=== PATIENT | female | born 1945 | race Caucasian/White ===

== ENCOUNTER → 2020-06-13 10:29 | Outpatient (BNVA) | payer MEDICARE, SELFPAY | PROVIDERS: PCP Internal Medicine; Visit Provider Internal Medicine | DX: J30.9 Allergic rhinitis, unspecified (principal); J44.9 Chronic obstructive pulmonary disease, unspecified | CPT/HCPCS: 99212 ==

== ENCOUNTER 2020-06-22 05:59 | Outpatient (REF) | payer MEDICARE, SELFPAY ==
[2020-06-22 07:07] LABS: MANUAL DIFF FLAG NO
[2020-06-22 07:12] LABS: Basophils Absolute Auto 0.1 X10*3/uL (0.0-0.2); Basophils Percent Auto 1.3 % (0-2); Eosinophils Absolute Auto 0.2 X10*3/uL (0.0-0.4); Eosinophils Percent Auto 3.9 % (0-4); Hematocrit 39.9 % (37-47); Hemoglobin 13.3 g/dl (12.0-16.0); Imm Gran Abs Auto 0.01 X10*3/uL (0.00-0.03); Imm Gran Pct Auto 0.2 % (0.0-0.4); Lymphocytes Absolute Auto 1.8 X10*3/uL (1.2-4.9); Mean Corpuscular HGB Conc 33.3 g/dl (31.0-35.0); Mean Corpuscular Hemoglobin 31.8 pg (27.0-33.0); Mean Corpuscular Volume 95.5 fL (80-98); Mean Platelet Volume 9.4 fL (9.4-12.3); Monocytes Absolute Auto 0.5 X10*3/uL (0.1-1.2); Monocytes Percent Auto 9.5 % (2-11); Neutrophils Percent Auto 53.1 % (45-73); Platelet Count 306 X10*3/uL (160-400); Red Blood Count 4.18 X10*6/uL (4.20-5.50); Red Cell Distribution Width 13.8 % (11.0-16.0); White Blood Count 5.6 X10*3/uL (4.8-10.8)
[2020-06-22 07:34] LABS: B Type Natriuretic Peptide 375 pg/mL (<100)
[2020-06-22 07:45] LABS: Alanine Aminotransferase 18 U/L (0-31); Albumin Level 4.3 g/dL (3.5-5.0); Alkaline Phosphatase 85 U/L (39-117); Anion Gap 12 (12-20); Aspartate Amino Transferase 25 U/L (5-31); Bilirubin Total 0.6 mg/dL (0.0-1.0); Blood Urea Nitrogen 8 mg/dL (9-16); Calcium 9.3 mg/dL (8.4-10.2); Carbon Dioxide 29 mmol/L (22-29); Chloride 98 mmol/L (96-108); Cholesterol 207 mg/dL; Estimated Glomerular Filt Rate > 60; Glucose Fasting 95 mg/dL (60-99); Potassium 4.6 mmol/l (3.3-5.1); Sodium 134 mmol/L (135-145); Total Protein 6.9 g/dL (6.5-8.0); Triglycerides 77 mg/dL
[2020-06-22 08:07] LABS: HDL Cholesterol 84 mg/dL; LDL Cholesterol Calculated 108 mg/dl
== END 2020-06-22 06:00 | disposition home or self-care (01) ==
LOC: HO.LAB 05:59
PROVIDERS: Nurse Practitioner Family; PCP Internal Medicine; Visit Provider Internal Medicine
DX: R60.0 Localized edema (principal); I10 Essential (primary) hypertension
CPT/HCPCS: 36415; 80053; 80061; 83880; 85025

== ENCOUNTER → 2020-07-21 09:10 | Outpatient (REF) | payer MEDICARE, SELFPAY ==
--- NOTE | 2020-07-21 09:26 | CA_ITS ---
Transthoracic Echocardiogram Patient (Last, First, Middle): Yasmeen Andrews R Gender: Female Date of : 1945 Age: 74 Procedure Date: 07/21/2020 Procedure Type: Transthoracic Echocardiogram Location: OP Height: 162.56 cm Weight: 58.97 kg BSA: 1.63 m2 Heart Rate: bpm BP: 130 / 52 mmHg Office Technician: DSAnna Referring MD: Parul Williamson MD Symptoms: R60.0 - Localized edema Study Quality: Good ECG Rhythm: Sinus Conclusions: - The left ventricular systolic function is normal. The visually estimated ejection fraction is between 55-60%. - There is moderate aortic valve regurgitation. Findings Left Ventricle Normal left ventricular cavity size. There is normal left ventricular wall thickness. The left ventricular systolic function is normal. The visually estimated ejection fraction is between 55-60%. There is no evidence of regional wall motion abnormalities. E/E prime ratio is between 8 and 15 consistent with indeterminate filling pressures. Evidence suggests grade I (mild) diastolic dysfunction. Right Ventricle Normal right ventricular cavity size and systolic function. Atria The left atrium is normal in size. The right atrium is normal in size. Aortic Valve There is mild calcification of the aortic valve. There is no aortic valve stenosis. There is moderate aortic valve regurgitation. Suspect lack of coaptation between right and non coronary cusp. Mitral Valve The mitral valve appears normal. There is trace mitral valve regurgitation. There is no mitral valve stenosis. Pulmonic Valve The pulmonic valve was not well visualized. Tricuspid Valve Normal tricuspid valve structure. There is trace tricuspid valve regurgitation. The pulmonary artery systolic pressure is normal. Great Vessels The aortic annulus, sinuses of valsalva, and asc aorta are normal in size. Venous The inferior vena cava is normal in size and collapses greater than 50% with inspiration. Pericardium/Pleural There is no evidence of pericardial effusion. Prior Study Comparison No significant change compared to prior study dated: 07/13/2016. Measurements 2D Linear Measurements IVSd: 1.08 0.6-0.9/0.6-1.0 cm LVIDd: 4.39 3.9-5.3/4.2-5.9 cm LVIDd Index: 2.69 2.4-3.2/2.2-3.1 cm/m2 LVIDs: 2.57 2.0-3.6 cm LVPWd: 1.01 0.7-1.1 cm Ao Root: 2.80 2.1-3.5 cm LA Diam: 3.20 2.7-3.8/3.0-4.0 cm LAIDs Index: 1.96 1.5-2.3 cm/m2 LV Mass: 194.99 67-162/88-224 g LV Mass Index: 119.63 43-95/49-115 g/m2 LVOT Diam: 1.80 3.0+(-)1.3 cm 2D Systolic Function EF 4C: 55.70 >55% EF 2C: 65.50 >55% EF BiP: 61.70 >55% Mitral Valve MV Pk E: 0.83 MV PK A: 0.50 MV Decel Time: 173.00 E/A: 1.70 E'Lateral: 8.51 E'Medial: 4.93 E/E' Med: 16.70 E/E' Lat: 9.70 PHT: 51.00 MVA PHT: 4.31 Decel [place]: 4.78 Aortic Valve AoV Pk Jabari: 1.85 AoV Pk Grad: 14.00 AI Pk Jabari: 4.22 AI [place]: 2.29 LVOT LVOT Pk Jabari: 1.05 LVOT Mn Jabari: 0.70 LVOT VTI: 0.25 LVOT Pk Grad: 4.00 LVOT Mn Grad: 2.00 LVOT Diam: 1.80 LVOT Area: 2.54 Diastolic Function MV Pk E: 0.83 MV Pk A: 0.50 E/A: 1.70 E'Medial: 4.93 E/E' Med: 16.70 E' Laterial: 8.51 E/E' Lat: 9.70 Tricuspid Valve TR Pk Jabari: 2.48 TR Pk Grad: 25.00 RA Press: 3.00 RVSP: 28.00 Great Vessels Aorta Ao Root-2D: 2.80 2.0-3.7 cm Updated in Other Vendor System with Status of Final Abram Arriaza MD electronically signed on 07/23/2020 1:21:22 PM with status of Final
== END ==
LOC: HO.CARD 09:10
PROVIDERS: PCP Internal Medicine; Visit Provider Internal Medicine
DX: R60.0 Localized edema (principal)
CPT/HCPCS: 93306

== ENCOUNTER → 2020-08-08 09:39 | Outpatient (BNVA) | payer MEDICARE, SELFPAY | PROVIDERS: PCP Internal Medicine; Visit Provider Orthopaedic Surgery | DX: G56.03 Carpal tunnel syndrome, bilateral upper limbs (principal) | CPT/HCPCS: 99202; 99212 ==

== ENCOUNTER 2020-08-25 11:13 | Day surgery (SDC) | payer MEDICARE, SELFPAY ==
[2020-08-25 11:52] VITALS: BMI 22.3
[2020-08-25 12:11] VITALS: BP 129/60; PULSE 70; RESP 18; TEMP 36.7; O2SAT 99
[2020-08-25 13:30] VITALS: BP 126/53; PULSE 77; RESP 18; TEMP 36.9; O2SAT 96
--- NOTE | 2020-08-25 13:34 | P.OP_ITS ---
Operative Note Operative Note Date of Service: 08/25/20 Narrative: Preop diagnosis: 1. Right Carpal tunnel syndrome Postop diagnosis: 1. right Carpal tunnel syndrome Procedure: 1. Right Carpal tunnel release Surgeon: Mita Adam MD Anesthesia: local block using 1% lidocaine with epinephrine Findings: Thickened transverse carpal ligament. EBL: Less than 5 mL Specimens: None Complications: None Disposition: Brought to recovery room in stable condition Plan: Follow-up for 7-10 days for wound check and suture removal Indications: The patient is 75 years old, with right carpal tunnel syndrome that has been unresponsive to nonoperative management. The risks and benefits of operative treatment including but not limited to risk of damage to blood vessels, nerves, tendons, infection, persistent pain, persistent symptoms, or possible need for additional surgery were discussed with the patient and the patient wishes to proceed with surgery. Procedure: Once consent was obtained a local block was performed using a combination of 1% lidocaine with epinephrine. The patient was then brought back to the operating suite and placed on the operative table in supine position. A tourniquet was applied to the proximal aspect of the right upper extremity and the limb was prepped and draped in a standard surgical fashion. Once assured that we had a good block, a 1.5 cm longitudinal incision was made centered over the right carpal tunnel. The incision was made through the skin to the subcutaneous tissues using a #15 blade. Dissection was made down to the level of the transverse carpal ligament with care being taken to protect the palmar cu taneous nerve. Once the transverse carpal ligament was clearly visualized, a longitudinal incision was made in the transverse carpal ligament 1st using a #15 blade, then using tenotomy scissors under direct visualization. Care was taken to look for and protect the motor branch of the median nerve when seen in this area. Once satisfied with our carpal tunnel release the wound was copiously irrigated with normal saline and hemostasis was obtained with a brief period of local pressure. The skin edges were reapproximated with some 5.0 nylon suture material and a sterile dressing was applied. The patient appears to have tolerated the procedure well and with no complications. All digits were well vascularized at the conclusion of the case.
--- NOTE | 2020-08-25 13:34 | MHC.SHP ---
Pre-Procedural Eval Section B Chief Complaint: carpal tunnel Allergies: Allergies Allergy/AdvReac Type Severity Reaction Status Date / Time penicillin G Allergy Unknown Unknown Verified 08/25/20 12:13 Sulfa (Sulfonamide Allergy Unknown nausea, Verified 08/25/20 12:13 Antibiotics) vomiting Plan I have reviewed the history and physical and performed a pertinent physical examination on my patient. No changes have occurred unless specified.
== END 2020-08-25 13:57 | disposition home or self-care (01) ==
PROVIDERS: PCP Internal Medicine; Visit Provider Orthopaedic Surgery
PROC: (CPT 64721; principal; 2020-08-25 12:30)
DX: G56.01 Carpal tunnel syndrome, right upper limb (principal); I10 Essential (primary) hypertension; J44.9 Chronic obstructive pulmonary disease, unspecified; Z79.51 Long term (current) use of inhaled steroids; Z79.899 Other long term (current) drug therapy; R60.0 Localized edema; Z88.0 Allergy status to penicillin; Z88.2 Allergy status to sulfonamides; Z87.891 Personal history of nicotine dependence
CPT/HCPCS: 64721

== ENCOUNTER → 2020-09-05 08:19 | Outpatient (BNVA) | payer MEDICARE, SELFPAY | PROVIDERS: Visit Provider Orthopaedic Surgery | DX: G56.01 Carpal tunnel syndrome, right upper limb (principal); G56.02 Carpal tunnel syndrome, left upper limb | CPT/HCPCS: 99212 ==

== ENCOUNTER 2020-09-22 12:34 | Day surgery (SDC) | payer MEDICARE, SELFPAY ==
[2020-09-21 09:45] VITALS: BMI 22.3
[2020-09-22 12:46] VITALS: BP 159/58; PULSE 61; RESP 16; TEMP 36.3; O2SAT 99
--- NOTE | 2020-09-22 12:59 | W.PM.OPN ---
Operative Note Operative Note Date of Service: 09/22/20 Narrative: Preop diagnosis: 1. Left Carpal tunnel syndrome Postop diagnosis: 1. Left Carpal tunnel syndrome Procedure: 1. Left Carpal tunnel release Surgeon: Mita Adam MD Anesthesia: local block using 1% lidocaine with epinephrine Findings: Thickened transverse carpal ligament. EBL: Less than 5 mL Specimens: None Complications: None Disposition: Brought to recovery room in stable condition Plan: Follow-up for 7-10 days for wound check and suture removal Indications: The patient is 75 years old, with left carpal tunnel syndrome that has been unresponsive to nonoperative management. The risks and benefits of operative treatment including but not limited to risk of damage to blood vessels, nerves, tendons, infection, persistent pain, persistent symptoms, or possible need for additional surgery were discussed with the patient and the patient wishes to proceed with surgery. Procedure: Once consent was obtained a local block was performed using a combination of 1% lidocaine with epinephrine. The patient was then brought back to the operating suite and placed on the operative table in supine position. A tourniquet was applied to the proximal aspect of the left upper extremity and the limb was prepped and draped in a standard surgical fashion. Once assured that we had a good block, a 1.5 cm longitudinal incision was made centered over the left carpal tunnel. The incision was made through the skin to the subcutaneous tissues using a #15 blade. Dissection was made down to the level of the transverse carpal ligament with care being taken to protect the palmar cutaneous nerve. Once the transverse carpal ligament was clearly visualized, a longitudinal incision was made in the transverse carpal ligament 1st using a #15 blade, then using tenotomy scissors under direct visualization. Care was taken to look for and protect the motor branch of the median nerve when seen in this area. Once satisfied with our carpal tunnel release the wound was copiously irrigated with normal saline and hemostasis was obtained with a brief period of local pressure. The skin edges were reapproximated with some 5.0 nylon suture material and a sterile dressing was applied. The patient appears to have tolerated the procedure well and with no complications. All digits were well vascularized at the conclusion of the case.
--- NOTE | 2020-09-22 14:15 | MHC.SHP ---
Pre-Procedural Eval Section B Chief Complaint: carpal tunnel Allergies: Allergies Allergy/AdvReac Type Severity Reaction Status Date / Time penicillin G Allergy Unknown Unknown Verified 09/05/20 08:22 Sulfa (Sulfonamide Allergy Unknown nausea, Verified 09/05/20 08:22 Antibiotics) vomiting Plan I have reviewed the history and physical and performed a pertinent physical examination on my patient. No changes have occurred unless specified.
[2020-09-22 15:10] VITALS: BP 92/51; PULSE 68; RESP 17; TEMP 36.3; O2SAT 99
[2020-09-22 15:14] VITALS: BP 154/58
== END 2020-09-22 15:15 | disposition home or self-care (01) ==
PROVIDERS: PCP Internal Medicine; Visit Provider Orthopaedic Surgery
PROC: (CPT 64721; principal; 2020-09-22 13:30)
DX: G56.02 Carpal tunnel syndrome, left upper limb (principal); I10 Essential (primary) hypertension; J44.9 Chronic obstructive pulmonary disease, unspecified; J30.9 Allergic rhinitis, unspecified; Z88.0 Allergy status to penicillin; Z88.2 Allergy status to sulfonamides; Z87.891 Personal history of nicotine dependence
CPT/HCPCS: 64721

== ENCOUNTER → 2020-10-03 09:30 | Outpatient (BNVA) | payer MEDICARE, SELFPAY | PROVIDERS: Visit Provider Orthopaedic Surgery | DX: G56.01 Carpal tunnel syndrome, right upper limb (principal); G56.02 Carpal tunnel syndrome, left upper limb | CPT/HCPCS: 99212 ==

== ENCOUNTER 2020-10-24 13:46 | Outpatient (REF) | payer MEDICARE, SELFPAY ==
--- NOTE | ~2020-10-24 | XR_ITS ---
EXAMINATION: XR CHEST CLINICAL INFORMATION: Cough COMPARISON: Previous chest x-rays most recent May [address] most recent January 2020 TECHNIQUE: 2 views of the chest were obtained. FINDINGS: The cardiac silhouette does not appear enlarged. The thoracic aorta is calcified and tortuous and but stable. Hilar and mediastinal contours are otherwise unremarkable. The lungs are well-inflated suggestive of COPD. The lungs are clear. There is no pleural effusion or pneumothorax. There are degenerative changes of the spine and left shoulder and increased thoracic kyphosis. XR/XR chest 2V IMPRESSION: COPD. No evidence for acute disease in the chest.
== END 2020-10-24 13:47 | disposition home or self-care (01) ==
LOC: HO.XRAY 13:46
PROVIDERS: PCP Internal Medicine; Visit Provider Internal Medicine
DX: J44.9 Chronic obstructive pulmonary disease, unspecified (principal); R05 Cough; T46.4X5A Adverse effect of angiotensin-converting-enzyme inhibitors, initial encounter; Z79.899 Other long term (current) drug therapy; Z87.891 Personal history of nicotine dependence
CPT/HCPCS: 71046; 99212

== ENCOUNTER → 2020-12-12 10:15 | Outpatient (BNVA) | payer MEDICARE, SELFPAY | PROVIDERS: PCP Internal Medicine; Visit Provider Internal Medicine | DX: J44.9 Chronic obstructive pulmonary disease, unspecified (principal); R05 Cough; T46.4X5A Adverse effect of angiotensin-converting-enzyme inhibitors, initial encounter; J30.9 Allergic rhinitis, unspecified; Z79.899 Other long term (current) drug therapy | CPT/HCPCS: 99212 ==

== ENCOUNTER → 2021-04-06 10:01 | Outpatient (BNVA) | payer MEDICARE, SELFPAY | PROVIDERS: PCP Internal Medicine; Visit Provider Internal Medicine | DX: J44.9 Chronic obstructive pulmonary disease, unspecified (principal); J30.9 Allergic rhinitis, unspecified | CPT/HCPCS: 99212 ==

== ENCOUNTER 2021-04-18 07:03 | Outpatient (REF) | payer MEDICARE, SELFPAY ==
[2021-04-18 08:10] LABS: Alanine Aminotransferase 10 U/L (0-31); Albumin Level 4.1 g/dL (3.5-5.0); Alkaline Phosphatase 80 U/L (39-117); Anion Gap 14 (12-20); Aspartate Amino Transferase 19 U/L (5-31); Bilirubin Total 0.5 mg/dL (0.0-1.0); Blood Urea Nitrogen 9 mg/dL (9-16); Calcium 9.5 mg/dL (8.4-10.2); Carbon Dioxide 25 mmol/L (22-29); Chloride 102 mmol/L (96-108); Cholesterol 229 mg/dL; Estimated Glomerular Filt Rate > 60; Glucose Fasting 96 mg/dL (60-99); HDL Cholesterol 59 mg/dL; LDL Cholesterol Calculated 151 mg/dl; Sodium 136 mmol/L (135-145); Total Protein 6.6 g/dL (6.5-8.0); Triglycerides 97 mg/dL
[2021-04-22 12:16] LABS: Vitamin D 25-OH, D2 5 ng/mL; Vitamin D 25-OH, D3 42 ng/mL; Vitamin D 25-OH, Total 47 ng/mL (30-100)
== END 2021-04-18 07:04 | disposition home or self-care (01) ==
LOC: HO.LAB 07:03
PROVIDERS: PCP Internal Medicine; Visit Provider Internal Medicine
DX: E11.9 Type 2 diabetes mellitus without complications (principal); E78.5 Hyperlipidemia, unspecified; I10 Essential (primary) hypertension
CPT/HCPCS: 36415; 80053; 80061; 82306

== ENCOUNTER → 2021-08-09 09:50 | Outpatient (BNVA) | payer MEDICARE, SELFPAY | PROVIDERS: PCP Internal Medicine; Visit Provider Internal Medicine | DX: J44.9 Chronic obstructive pulmonary disease, unspecified (principal); J30.9 Allergic rhinitis, unspecified | CPT/HCPCS: 99212 ==

== ENCOUNTER 2021-08-22 10:41 | Outpatient (REF) | payer MEDICARE, SELFPAY ==
--- NOTE | ~2021-08-22 | CT_ITS ---
EXAMINATION: CT CHEST SCREENING CLINICAL INFORMATION: Smoking history. COMPARISON: Previous chest CT January 2020 TECHNIQUE: Multidetector volumetric CT imaging of the chest is performed without contrast using low dose technique. Additional 2D coronal and sagittal reformatted images and axial 3D maximum intensity projection (MIP) images are generated on the CT workstation. This CT examination was performed using dose optimization techniques as appropriate, variously including the following: *Automated exposure control *Adjustment of mA and/or kV according to patient size (this includes techniques or standardized protocols for targeted exams where dose is matched to indication/reason for exam; i.e. extremities or head) *Use of iterative reconstruction technique DLP: 36 mGy-cm FINDINGS: LUNGS: There is evidence of emphysema. The small pulmonary nodules are stable. No new pulmonary nodule is seen. There is mild linear scarring or subsegmental atelectasis at the lung bases. No endobronchial or endotracheal lesion is seen. MEDIASTINUM: There is atherosclerotic disease and mild coronary artery calcification. The mediastinum is otherwise normal. There are no enlarged lymph nodes. PLEURA: There is no pleural effusion. No pleural mass or thickening. AXILLA: No lymphadenopathy. UPPER ABDOMEN: Unremarkable OSSEOUS STRUCTURES: There are degenerative changes of the spine. CT/CT lung screening IMPRESSION: Emphysema. Stable small pulmonary nodules. Coronary artery calcification. ASSESSMENT: Lung-RADS category 2: Benign RECOMMENDATION: Annual low-dose chest CT follow-up recommended.
== END 2021-08-22 10:42 | disposition home or self-care (01) ==
LOC: HO.CT 10:41
PROVIDERS: PCP Internal Medicine; Visit Provider Physician Assistant Medical
DX: Z12.2 Encounter for screening for malignant neoplasm of respiratory organs (principal); Z87.891 Personal history of nicotine dependence
CPT/HCPCS: 71271

== ENCOUNTER 2021-09-12 07:42 | Outpatient (REF) | payer MEDICARE, SELFPAY ==
[2021-09-12 09:00] LABS: Alanine Aminotransferase 11 U/L (0-31); Alkaline Phosphatase 77 U/L (39-117); Anion Gap 14 (12-20); Aspartate Amino Transferase 19 U/L (5-31); Bilirubin Total 0.5 mg/dL (0.0-1.0); Blood Urea Nitrogen 8 mg/dL (9-16); Calcium 9.6 mg/dL (8.4-10.2); Carbon Dioxide 24 mmol/L (22-29); Chloride 106 mmol/L (96-108); Cholesterol 224 mg/dL; Estimated Glomerular Filt Rate > 60; Glucose Fasting 98 mg/dL (60-99); HDL Cholesterol 72 mg/dL; LDL Cholesterol Calculated 136 mg/dl; Potassium 4.5 mmol/L (3.3-5.1); Sodium 139 mmol/L (135-145); Total Protein 6.6 g/dL (6.5-8.0); Triglycerides 81 mg/dL
== END 2021-09-12 07:43 | disposition home or self-care (01) ==
LOC: HO.LAB 07:42
PROVIDERS: PCP Internal Medicine; Visit Provider Internal Medicine
DX: E78.5 Hyperlipidemia, unspecified (principal)
CPT/HCPCS: 36415; 80053; 80061

== ENCOUNTER → 2021-12-05 10:02 | Outpatient (BNVA) | payer MEDICARE, SELFPAY | PROVIDERS: PCP Internal Medicine; Visit Provider Internal Medicine | DX: J30.9 Allergic rhinitis, unspecified (principal); J44.9 Chronic obstructive pulmonary disease, unspecified | CPT/HCPCS: 99212 ==

== ENCOUNTER → 2021-12-13 09:24 | Outpatient (REF) | payer MEDICARE, SELFPAY ==
--- NOTE | 2021-12-13 09:26 | CA_ITS ---
Transthoracic Echocardiogram Patient (Last, First, Middle): Yasmeen Andrews R Gender: Female Date of : 1945 Age: 76 Procedure Date: 12/13/2021 Procedure Type: Transthoracic Echocardiogram Location: OP Height: 162.56 cm Weight: 55.34 kg BSA: 1.59 m2 Heart Rate: 54 bpm BP: 124 / 68 mmHg Devops: SB Referring MD: Parul Williamson MD Inside Technical Sales Representative: Jean-Pierre Reilly MD Symptoms: I35.1 - Nonrheumatic aortic (valve) insufficiency Study Quality: Adequate ECG Rhythm: Sinus Bradycardia Conclusions: - 1. Normal LV systolic function with suggestion of increased left ventricular end-diastolic pressure 2. Moderate aortic regurgitation 3. Mild mitral regurgitation 4. Normal RV systolic pressure 5. No gross pericardial effusion Findings Left Ventricle Normal left ventricular size, thickness, and systolic function. The visually estimated ejection fraction is between 65-70%. Spectral Doppler is indicative of a normal filling pattern. Elevated left ventricular end diastolic pressure. E/E prime ratio is between 8 and 15 consistent with indeterminate filling pressures. Right Ventricle Normal right ventricular cavity size and systolic function. Atria The left atrium is mildly dilated. There is no evidence of interatrial shunt. The right atrium is normal in size. Aortic Valve There is mild calcification of the aortic valve. There is mild thickening of the aortic valve. There is no aortic valve stenosis. There is moderate aortic valve regurgitation. Mitral Valve There is mild anterior and posterior mitral leaflet thickening. There is mild mitral valve regurgitation. There is no mitral valve stenosis. Pulmonic Valve The pulmonic valve is likely normal. There is trace to mild pulmonic valve regurgitation. Tricuspid Valve Normal tricuspid valve structure. There is mild tricuspid valve regurgitation. The right ventricular systolic pressure is normal. The right ventricular systolic pressure is 34 mmHg. Normal right atrial pressure. There is no evidence of pulmonary hypertension. Great Vessels All visible segments of the aorta are normal in size. The pulmonary artery was not well visualized. Venous The inferior vena cava is normal in size and collapses greater than 50% with inspiration. Pericardium/Pleural There is no evidence of pericardial effusion. Prior Study Comparison No significant change compared to prior study dated: 07/21/2020. Measurements 2D Linear Measurements IVSd: 0.81 0.6-0.9/0.6-1.0 cm LVIDd: 4.53 3.9-5.3/4.2-5.9 cm LVIDd Index: 2.85 2.4-3.2/2.2-3.1 cm/m2 LVIDs: 2.95 2.0-3.6 cm LVPWd: 0.65 0.7-1.1 cm Ao Root: 3.10 2.1-3.5 cm LA Diam: 3.50 2.7-3.8/3.0-4.0 cm LAIDs Index: 2.20 1.5-2.3 cm/m2 LV Mass: 127.40 67-162/88-224 g LV Mass Index: 80.13 43-95/49-115 g/m2 LVOT Diam: 1.70 3.0+(-)1.3 cm 2D Systolic Function EF 4C: 70.60 >55% EF 2C: 68.50 >55% EF BiP: 69.30 >55% Mitral Valve MV Pk E: 0.77 MV PK A: 0.66 MV Decel Time: 174.00 E/A: 1.20 E'Lateral: 7.58 E'Medial: 4.13 E/E' Med: 18.60 E/E' Lat: 10.10 PHT: 51.00 MVA PHT: 4.31 Decel [place]: 4.40 Aortic Valve AoV Pk Jabari: 1.59 AoV Mn Jabari: 1.10 AoV VTI: 0.35 AoV Pk Grad: 10.00 Aov Mn Grad: 5.00 FRANCISCO Cont.VTI: 1.51 AI Pk Jabari: 4.48 AI [place]: 2.80 LVOT LVOT Pk Jabari: 1.01 LVOT Mn Jabari: 0.64 LVOT VTI: 0.23 LVOT Pk Grad: 4.00 LVOT Mn Grad: 2.00 LVOT Diam: 1.70 LVOT Area: 2.27 Diastolic Function MV Pk E: 0.77 MV Pk A: 0.66 E/A: 1.20 E'Medial: 4.13 E/E' Med: 18.60 E' Laterial: 7.58 E/E' Lat: 10.10 Right Ventricle TAPSE (mm): 21.50 TVS' Jabari: 13.70 Tricuspid Valve TR Pk Jabari: 2.78 TR Pk Grad: 31.00 RA Press: 3.00 RVSP: 34.00 Great Vessels Aorta Ao Root-2D: 3.10 2.0-3.7 cm Sinus of Valsalva: 3.10 2.0-3.5 cm Ao Asc: 3.30 2.1-3.4 cm Pulmonary Valve PV Pk Jabari: 0.87 Peak PV Grad: 3.00 Updated in Other Vendor System with Status of Final Jean-Pierre Reilly MD electronically signed on 12/13/2021 3:47:10 PM with status of Final
== END ==
LOC: HO.CARD 09:24
PROVIDERS: PCP Internal Medicine; Visit Provider Internal Medicine
DX: I35.1 Nonrheumatic aortic (valve) insufficiency (principal)
CPT/HCPCS: 93306

== ENCOUNTER 2022-04-14 10:16 | Outpatient (REF) | payer MEDICARE, SELFPAY ==
--- NOTE | ~2022-04-14 | MM_ITS ---
EXAMINATION: MM SCREENING DIGITAL BREAST TOMOSYNTHESIS, BILATERAL CLINICAL INFORMATION: Screening. Asymptomatic. The lifetime risk of breast cancer based on the Tyrer-Cuzick Model is 1%. COMPARISON: Mammography: 03/29/2020, 11/17/2018, 11/11/2017 TECHNIQUE: Digital breast tomosynthesis is performed in both the craniocaudal and mediolateral oblique views along with computer-aided detection (CAD). Synthesized 2D images are generated from the tomosynthesis. FINDINGS: There are scattered areas of fibroglandular density (ACR BI-RADS breast composition Category b). There are no significant masses, abnormal calcifications, or other abnormalities. Parenchymal pattern is similar to prior studies. There is no developing density or architectural abnormality. The axilla and skin contours are unremarkable. No significant changes. MM/MM tomosynthesis screening BI IMPRESSION: No mammographic evidence of malignancy. ASSESSMENT: BI-RADS 1: Negative RECOMMENDATION: Routine annual mammography screening. This patient's information was entered into a reminder system with a target due date for their next mammogram.
== END 2022-04-14 10:17 | disposition home or self-care (01) ==
LOC: HO.MAMMO 10:16
PROVIDERS: Visit Provider Internal Medicine
DX: Z12.31 Encounter for screening mammogram for malignant neoplasm of breast (principal)
CPT/HCPCS: 77063; 77067

== ENCOUNTER → 2022-06-12 09:41 | Outpatient (BNVA) | payer MEDICARE, SELFPAY | PROVIDERS: PCP Internal Medicine; Visit Provider Internal Medicine | DX: J44.9 Chronic obstructive pulmonary disease, unspecified (principal); J30.9 Allergic rhinitis, unspecified; Z79.899 Other long term (current) drug therapy | CPT/HCPCS: 99212 ==

== ENCOUNTER 2022-07-04 06:08 | Outpatient (REF) | payer MEDICARE, SELFPAY ==
[2022-07-04 08:00] LABS: Alanine Aminotransferase 9 U/L (0-31); Albumin Level 4.2 g/dL (3.5-5.0); Alkaline Phosphatase 89 U/L (39-117); Anion Gap 12 (12-20); Aspartate Amino Transferase 17 U/L (5-31); Bilirubin Total 0.6 mg/dL (0.0-1.0); Blood Urea Nitrogen 9 mg/dL (9-16); Calcium 9.5 mg/dL (8.4-10.2); Carbon Dioxide 26 mmol/L (22-29); Chloride 105 mmol/L (96-108); Cholesterol 216 mg/dL; Estimated Glomerular Filt Rate > 60; Glucose Fasting 97 mg/dL (60-99); HDL Cholesterol 66 mg/dL; LDL Cholesterol Calculated 133 mg/dl; Potassium 4.3 mmol/L (3.3-5.1); Sodium 139 mmol/L (135-145); Total Protein 6.9 g/dL (6.5-8.0); Triglycerides 88 mg/dL
== END 2022-07-04 06:09 | disposition home or self-care (01) ==
LOC: HO.LAB 06:08
PROVIDERS: PCP Internal Medicine; Visit Provider Internal Medicine
DX: E78.5 Hyperlipidemia, unspecified (principal)
CPT/HCPCS: 36415; 80053; 80061

== ENCOUNTER 2022-10-05 10:03 | Outpatient (REF) | payer MEDICARE, SELFPAY ==
--- NOTE | ~2022-10-05 | CT_ITS ---
EXAMINATION: CT CHEST SCREENING CLINICAL INFORMATION: Former smoker. Quit 4 years ago. 40 pack year history. COMPARISON: Previous chest CT August 2021 TECHNIQUE: Multidetector volumetric CT imaging of the chest is performed without contrast using low dose technique. Additional 2D coronal and sagittal reformatted images and axial 3D maximum intensity projection (MIP) images are generated on the CT workstation. This CT examination was performed using dose optimization techniques as appropriate, variously including the following: *Automated exposure control *Adjustment of mA and/or kV according to patient size (this includes techniques or standardized protocols for targeted exams where dose is matched to indication/reason for exam; i.e. extremities or head) *Use of iterative reconstruction technique DLP: 37 mGy-cm FINDINGS: LUNGS: Severe emphysema. Hyperinflation. No suspicious pulmonary nodule. Scarring or subsegmental atelectasis at the lung bases. No endobronchial or endotracheal lesion. MEDIASTINUM: The mediastinum is normal. Upper normal-size ascending thoracic aorta. CORONARY ARTERY CALCIFICATION: Mild PLEURA: There is no pleural effusion. No pleural mass or thickening. AXILLA: No lymphadenopathy. UPPER ABDOMEN: Unremarkable OSSEOUS STRUCTURES: Degenerative changes of the spine. CT/CT lung screening IMPRESSION: Severe emphysema. Hyperinflation. No suspicious pulmonary nodule. ASSESSMENT: Lung-RADS category 2: Benign RECOMMENDATION: Annual low-dose chest CT follow-up recommended.
== END 2022-10-05 10:04 | disposition home or self-care (01) ==
LOC: HO.CT 10:03
PROVIDERS: PCP Internal Medicine; Visit Provider Physician Assistant Medical
DX: Z12.2 Encounter for screening for malignant neoplasm of respiratory organs (principal); Z87.891 Personal history of nicotine dependence
CPT/HCPCS: 71271

== ENCOUNTER 2022-11-09 06:00 | Outpatient (REF) | payer MEDICARE, SELFPAY ==
[2022-11-09 08:00] LABS: Alanine Aminotransferase 13 U/L (0-31); Albumin Level 4.1 g/dL (3.5-5.0); Alkaline Phosphatase 76 U/L (39-117); Anion Gap 11 (12-20); Aspartate Amino Transferase 21 U/L (5-31); Bilirubin Total 0.8 mg/dL (0.0-1.0); Blood Urea Nitrogen 8 mg/dL (9-16); Calcium 9.6 mg/dL (8.4-10.2); Carbon Dioxide 27 mmol/L (22-29); Chloride 101 mmol/L (96-108); Cholesterol 178 mg/dL; Estimated Glomerular Filt Rate > 60; Glucose Fasting 90 mg/dL (60-99); HDL Cholesterol 92 mg/dL; LDL Cholesterol Calculated 73 mg/dl; Potassium 4.2 mmol/L (3.3-5.1); Sodium 135 mmol/L (135-145); Total Protein 6.4 g/dL (6.5-8.0); Triglycerides 65 mg/dL
[2022-11-09 08:33] LABS: Folate 17.3 ng/mL (> or = 4.0); Vitamin B12 1615 pg/mL (200-900); Vitamin D 25-OH Total 42.4 ng/mL (>30)
== END 2022-11-09 06:01 | disposition home or self-care (01) ==
LOC: HO.LAB 06:00
PROVIDERS: PCP Internal Medicine; Visit Provider Internal Medicine
DX: E78.5 Hyperlipidemia, unspecified (principal); E55.9 Vitamin D deficiency, unspecified; E53.8 Deficiency of other specified B group vitamins
CPT/HCPCS: 36415; 80053; 80061; 82306; 82607; 82746

== ENCOUNTER 2022-11-21 10:32 | Outpatient (REF) | payer MEDICARE, SELFPAY ==
[2022-11-21 11:11] LABS: MANUAL DIFF FLAG NO
[2022-11-21 11:33] LABS: Basophils Absolute Auto 0.1 X10*3/uL (0.0-0.2); Basophils Percent Auto 0.8 % (0-2); Eosinophils Absolute Auto 0.2 X10*3/uL (0.0-0.4); Eosinophils Percent Auto 2.6 % (0-4); Hematocrit 40.6 % (37.0-47.0); Hemoglobin 13.7 g/dl (12.0-16.0); Imm Gran Abs Auto 0.02 X10*3/uL (0.00-0.03); Imm Gran Pct Auto 0.3 % (0.0-0.4); Lymphocytes Absolute Auto 1.2 X10*3/uL (1.2-4.9); Mean Corpuscular HGB Conc 33.7 g/dl (31.0-35.0); Mean Corpuscular Hemoglobin 32.3 pg (27.0-33.0); Mean Corpuscular Volume 95.8 fL (80.0-98.0); Mean Platelet Volume 10.4 fL (9.4-12.3); Monocytes Absolute Auto 0.6 X10*3/uL (0.1-1.2); Monocytes Percent Auto 10.3 % (2-11); Neutrophils Absolute Auto 4.2 x10*3/uL (2.0-8.3); Platelet Count 165 X10*3/uL (160-400); Red Blood Count 4.24 X10*6/uL (4.20-5.50); Red Cell Distribution Width 12.9 % (11.0-16.0); White Blood Count 6.2 X10*3/uL (4.8-10.8)
[2022-11-21 12:51] LABS: Magnesium 1.6 mg/dL (1.6-2.6)
[2022-11-21 12:54] LABS: Thyroid Stimulating Hormone 1.17 uIU/mL (0.32-4.0)
== END 2022-11-21 10:33 | disposition home or self-care (01) ==
LOC: HO.LAB 10:32
PROVIDERS: PCP Internal Medicine; Visit Provider Internal Medicine
DX: R53.83 Other fatigue (principal); R25.2 Cramp and spasm
CPT/HCPCS: 36415; 83735; 84443; 85025

== ENCOUNTER → 2022-12-11 09:38 | Outpatient (BNVA) | payer MEDICARE, SELFPAY | PROVIDERS: PCP Internal Medicine; Visit Provider Internal Medicine | DX: J44.9 Chronic obstructive pulmonary disease, unspecified (principal); J30.9 Allergic rhinitis, unspecified | CPT/HCPCS: 99212 ==

== ENCOUNTER 2023-04-20 10:38 | Outpatient (REF) | payer MEDICARE, SELFPAY | END 2023-04-20 10:39 | disposition home or self-care (01) | LOC: HO.MAMMO 10:38 | PROVIDERS: PCP Internal Medicine; Visit Provider Internal Medicine | DX: Z12.31 Encounter for screening mammogram for malignant neoplasm of breast (principal) | CPT/HCPCS: 77063; 77067 ==

== ENCOUNTER → 2023-04-20 10:45 | Outpatient (BNV) | payer MEDICARE, SELFPAY | PROVIDERS: PCP Internal Medicine; Visit Provider Radiology Diagnostic Radiology | DX: Z12.31 Encounter for screening mammogram for malignant neoplasm of breast (principal) | CPT/HCPCS: 77063; 77067 ==

== ENCOUNTER 2023-04-26 08:46 | Outpatient (AMB) | payer MEDICARE, SELFPAY ==
--- NOTE | 2023-04-26 08:48 | A.OFFPC_ITS ---
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 Allergies Sulfa (Sulfonamide Antibiotics) Allergy (Intermediate, Verified 04/26/23 09:25) nausea, vomiting Medication List - Last Reconciled 04/26/23 by CINTHYA Harkins albuterol sulfate 90 mcg/actuation 2 puffs inhalation Q4-6H PRN 30 days amlodipine 5 mg PO DAILY cholecalciferol (vitamin D3) 50 mcg PO DAILY Flovent HFA 220 mcg/actuation (fluticasone propionate) 2 puffs PO BID NS fluticasone propionate 0.05% 1 appl topical DAILY 15 days folic acid 1 mg PO DAILY ibuprofen 800 mg PO Q8H PRN 30 days lorazepam 0.5 mg PO Q8H PRN 30 days losartan 25 mg PO DAILY 90 days montelukast 10 mg PO DAILY omeprazole 20 mg PO BID oxybutynin chloride ER 10 mg PO DAILY 90 days rosuvastatin 5 mg PO DAILY 90 days Spiriva Respimat 2.5 mcg/actuation (tiotropium bromide) 2 puffs PO DAILY NS vitamin B complex (B Complex-Vitamin B12 tablet) 1 tab PO DAILY Tobacco use date assessed: 04/26/23 Fall risk assessment: No Falls in past year Last assessed Fall Risk: 04/26/23 Dental Screening Dental Screen Date: 04/26/23 Did you have a dental visit in the last 12 months?: Yes Did you have a dental problem in the last 6 months where you did not have access to dental care?: No Was dental information given to patient?: Patient has dentist HPI BP follow up HPI Details Patient is a 77-year-old female who presents today to follow-up on h ypertension. Patient of Dr. Mcdermott. Medical history significant for hypertension, anxiety, COPD-followed by [place] pulmonology, GERD, dyslipidemia- patient takes half a tablet of rosuvastatin and reports muscle cramps are better. Patient denies shortness of breath or chest pain. Would like to have ProAir inhaler instead of plain albuterol inhaler, reports ProAir worked better. [facility] Medical History Skin lesion Dyslipidemia Cough due to DAISY inhibitor Neck pain GERD (gastroesophageal reflux disease) Aortic regurgitation Right hand pain Leg edema COPD (chronic obstructive pulmonary disease) Allergic rhinitis Anxiety Hypertension Surgical History Carpal tunnel syndrome, right History of bilateral cataract extraction History of partial hysterectomy Family History Father Medical history unknown Mother Medical history unknown Social History Housing: House Alcohol intake: current Alcohol intake frequency: holidays/special occasions only Alcohol type: other Patient Tobacco Use Status: Former Tobacco user Tobacco use type: Cigarette e-Cigarette/Vaping Use: Never Used Second Hand Smoke Exposure: No Advance Directives Date on File: 08/25/20 service: No Current occupational status: retired Cognitive needs: No Hearing needs: No Vision needs: No Questionnaire Thrive Questionnaire Date Thrive assessed: 11/21/22 AUDIT C Alcohol Use Questionnaire (AUDIT-C) 1. How often do you have a drink containing alcohol?: 2-3 times a week 2. How many drinks containing alcohol do you have on a typical day when you are drinking?: 1 or 2 3. How often do you have six or more drinks on one occasion?: Never Total Score: 3 Score Reviewed/Action Taken: Yes CHRISTIAN-7 AMB Questionnaire CHRISTIAN-7 Date CHRISTIAN - 7 assessed: 11/21/22 Source: Developed by Drs. Mick Kovacs, Yasmeen Rey, Louie Warren and colleagues, with an educational louis from [employer]. Review of Systems Const Denies body aches, Denies chills, Denies fever(s) and Denies headache(s) ENT Denies dizziness, Denies otalgia, Denies headache(s), Denies nasal discharge, Denies sinus pain and Denies sore throat Card Denies chest pain, Denies edema, Denies lightheadedness and Denies dyspnea Resp Denies cough, Denies dyspnea and Denies wheezing GI Denies abdominal pain Denies dysuria Musc Denies myalgias Skin/Breast Denies rash Neuro Denies dizziness and Denies headache(s) Aller/Immun Denies wheezing Physical exam (Primary Care) Vital Signs: Last Vital Signs Pulse 65 04/26/23 08:49 BP 140/58 H 04/26/23 08:49 Pulse Ox 97 04/26/23 08:49 Oxygen Delivery Method Room Air 04/26/23 08:49 BMI result Body Mass Index 20.5 Tobacco/Smoking Status: Tobacco use Status Tobacco use date assessed 04/26/23 04/26/23 08:49 Patient Tobacco Use Status Former Tobacco user 04/26/23 08:49 Tobacco use type Cigarette 04/26/23 08:49 e-Cigarette/Vaping Use Never Used 04/26/23 08:49 Thrive Assessment: Date of Thrive Assessment Date Thrive assessed 11/21/22 04/26/23 08:49 Const General: cooperative and no acute distress Orientation/consciousness: patient oriented x3 HENMT Head: Yes normocephalic and Yes atraumatic Face and sinus: Yes sinuses nontender Mouth: oropharynx normal and moist mucous membranes Throat: Yes posterior oropharynx normal Eyes General: appearance normal, both eyes and all related structures Neck Neck: Yes normal visual inspection, Yes full ROM and Yes no lymphadenopathy Resp Effort & Inspection: normal respiratory effort and able to speak in complete sentences Auscultation: clear to auscultation bilaterally, no crackles, no rales, no rhonchi and no wheezes Cardio Rate: regular rate Rhythm: regular rhythm Heart sounds: S1 normal heart sound present and S2 normal heart sound present GI Auscultation: normal bowel sounds Skin General skin exam: no rashes or lesions noted Neuro General: patient oriented x3 Gait exam (Neuro): Normal gait present Extrem General: Yes full ROM and No edema Assessment and Plan Assessment & Plan (1) Muscle cramps: Code(s): R25.2 - Cramp and spasm Plan: Reports this is improved since taking only half tablet of rosuvastatin (2) Hyperlipidemia: Code(s): E78.5 - Hyperlipidemia, unspecified Plan: Continue rosuvastatin 5 mg half tablet daily Patient is due for blood work Low-cholesterol diet (3) GERD (gastroesophageal reflux disease): Code(s): K21.9 - Gastro-esophageal reflux disease without esophagitis Qualifiers: Esophagitis presence: esophagitis presence not specified Qualified Code(s): K21.9 - Gastro-esophageal reflux disease without esophagitis Plan: Stable with omeprazole Avoid GERD trigger foods Do not lay down 2-3 hours after evening meal (4) COPD (chronic obstructive pulmonary disease): Comment: COPD is severe, but remains stable, well controlled , on current regimen, [place]: FLOVENT-220 2 PUFFS BID SPIRIVA RESP.2.5 MG 2 INH DAILY PROAIR JUST PRN RV q 6 months call us if symptoms get any worse . Code(s): J44.9 - Chronic obstructive pulmonary disease, unspecified Qualifiers: COPD type: unspecified COPD Qualified Code(s): J44.9 - Chronic obstructive pulmonary disease, unspecified Plan: Continue current treatment Continue to follow-up with pulmonology (5) Hypertension: Code(s): I10 - Essential (primary) hypertension Qualifiers: Hypertension type: essential hypertension Qualified Code(s): I10 - Essential (primary) hypertension Plan: Goal BP equal or less than 140/90 Continue amlodipine and losartan Low-sodium diet (6) Anxiety: Code(s): F41.9 - Anxiety disorder, unspecified Plan: Patient is on lorazepam as needed-she reports taking this medication as prescribed-educated about dependency and memory loss Orders: Orders Lipid Panel Today E78.5 - Hyperlipidemia, unspecified Comprehensive [place]. Panel Fast Today I10 - Essential (primary) hypertension Medications: New albuterol sulfate 90 mcg/actuation (ProAir RespiClick) 2 inhalations inhalation Q4-6H PRN 1 ea 2RF shortness of breath or wheezing J44.9 - Chronic obstructive pulmonary disease, unspecified Refilled Flovent HFA 220 mcg/actuation (fluticasone propionate) 2 puffs PO BID 12 grams 5RF for asthma NS lorazepam 0.5 mg PO Q8H 30 days PRN 90 tabs 0RF anxiety E78.5 - Hyperlipidemia, unspecified Discontinued albuterol sulfate 90 mcg/actuation Discontinued Reason: Doctor's Order 2 puffs inhalation Q4-6H 30 days PRN 8.5 grams 3RF shortness of breath or wheezing Coding Level of Care Code Est Pt Level 4 (57662) Diagnoses Muscle cramps R25.2 Hyperlipidemia E78.5 Gastroesophageal reflux disease, unspecified whether esophagitis present K21.9 Esophagitis presence: esophagitis presence not specified Chronic obstructive pulmonary disease, unspecified COPD type J44.9 COPD type: unspecified COPD Essential hypertension I10 Hypertension type: essential hypertension Anxiety F41.9
[2023-04-26 08:49] VITALS: BP 140/58; PULSE 65; O2SAT 97; BMI 20.5
== END 2023-04-26 09:44 | disposition home or self-care (01) ==
PROVIDERS: PCP Internal Medicine; Visit Provider Nurse Practitioner Family
DX: R25.2 Cramp and spasm (principal); E78.5 Hyperlipidemia, unspecified; K21.9 Gastro-esophageal reflux disease without esophagitis; J44.9 Chronic obstructive pulmonary disease, unspecified; I10 Essential (primary) hypertension; F41.9 Anxiety disorder, unspecified
CPT/HCPCS: 99214

== ENCOUNTER 2023-06-11 09:43 | Outpatient (AMB) | payer MEDICARE, SELFPAY ==
[2023-06-11 09:49] VITALS: BP 120/60; PULSE 87; O2SAT 97; BMI 20.6
--- NOTE | 2023-06-11 09:49 | MHC.OFFVIS ---
Intake Vital Signs 06/11/23 09:49 Height 5 ft 4 in Weight 120 lb BMI 20.6 BP 120/60 Blood Pressure Location Lt brachial Position Sitting Pulse 87 Pulse Source Pulse Oximeter Pulse Oximetry (%) 97 Oxygen Delivery Method Room Air Intake Visit Reasons: copd Intake Note: pt is here for follow up and states her breathing is awful, anxiety is awful. 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: No Allergies Sulfa (Sulfonamide Antibiotics) Allergy (Intermediate, Verified 06/11/23 10:02) nausea, vomiting Medication List - Last Reconciled 06/11/23 by Tamara Rehman MD albuterol sulfate 90 mcg/actuation (ProAir RespiClick) 2 inhalations inhalation Q4-6H PRN amlodipine 5 mg PO DAILY cholecalciferol (vitamin D3) 50 mcg PO DAILY Flovent HFA 220 mcg/actuation (fluticasone propionate) 2 puffs PO BID NS fluticasone propionate 0.05% 1 appl topical DAILY 15 days folic acid 1 mg PO DAILY ibuprofen 800 mg PO Q8H PRN 30 days lorazepam 0.5 mg PO Q8H PRN 30 days losartan 25 mg PO DAILY 90 days montelukast 10 mg PO DAILY PRN omeprazole 20 mg PO BID oxybutynin chloride ER 10 mg PO DAILY 90 days rosuvastatin 5 mg PO DAILY 90 days Spiriva Respimat 2.5 mcg/actuation (tiotropium bromide) 2 puffs PO DAILY NS [id number]-bqjn-pkdsi-oreg-capryl 100 mg-150 mg- 50 mg-150 mg caps PO vitamin B complex (B Complex-Vitamin B12 tablet) 1 tab PO DAILY Do you need a note to return to daycare/school/sports/work: No HPI copd HPI Details 77 YEARS OLD FEMALE COMES AFTER 6 MONTHS FOR HER ROUTINE FOLLOW-UP. SHE HAS BEEN FREE OF ANY RESPIRATORY INFECTIONS, SHE HAS HAD NO ACUTE EXACERBATION. SHE DOES GET SHORT OF BREATH ON USUAL HOUSEHOLD ACTIVITIES AND CLIMBING UP STAIRS, BUT THIS IS JUST EXPECTED. SHE USES PROAIR ONLY ONCE OR TWICE A WEEK. 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 Neck pain GERD (gastroesophageal reflux disease) Aortic regurgitation Right hand pain Leg edema COPD (chronic obstructive pulmonary disease) Allergic rhinitis Anxiety Hypertension Surgical History Carpal tunnel syndrome, right History of bilateral cataract extraction History of partial hysterectomy Family History Father Medical history unknown Mother Medical history unknown Social History Housing: House Alcohol intake: current Alcohol intake frequency: holidays/special occasions only Alcohol type: other Patient Tobacco Use Status: Former Tobacco user Tobacco use type: Cigarette e-Cigarette/Vaping Use: Never Used Second Hand Smoke Exposure: No Advance Directives Date on File: 08/25/20 service: No Current occupational status: retired Cognitive needs: No Hearing needs: No Vision needs: No Review of Systems Const All systems reviewed & are unremarkable except as noted in HPI and below Eyes Reports no additional complaints ENT Reports nasal congestion (Mild intermittent) and Reports neck pain (Mild off and on) Card Denies chest pain, Denies irregular heart rhythm and Denies leg edema Resp Reports as per HPI GI Reports heartburn (GERD symptoms controlled with med) Reports no additional complaints Musc Reports neck pain (Mild off and on) Skin/Breast Reports system reviewed and no additional complaints, except as documented Neuro Reports no additional complaints Psych Reports no additional complaints Physical Exam Vital Signs: Last Vital Signs Pulse 87 06/11/23 09:49 BP 120/60 06/11/23 09:49 Pulse Ox 97 06/11/23 09:49 Oxygen Delivery Method Room Air 06/11/23 09:49 BMI result Body Mass Index 20.6 Const General: comfortable, no acute distress, alert and awake Orientation/consciousness: patient oriented x3 HEENT Head: Yes normal to inspection General nose exam: No nasal polyps present, No nasal discharge present and Other nasal findings present (Mild nasal congestion is present) Face and sinus: Yes sinuses nontender Mouth: oropharynx normal Throat: Yes posterior oropharynx normal Eyes General: appearance normal, both eyes and all related structures Neck Neck: Yes normal visual inspection, Yes no lymphadenopathy, Yes trachea midline and Yes no JVD Thyroid: Thyroid normal Chest Chest palpation & inspection: normal inspection of the chest, normal palpation of entire chest wall and no tenderness Resp Other: Percussion note hyper-resonant, breath sounds are equal on both sides with prolonged expiratory phase. No wheezes rhonchi or crepitations are heard. Cardio Palpation: normal PMI Rate: regular rate Rhythm: regular rhythm Heart sounds: no gallops and no murmurs GI Palpation (GI): Soft to palpation, nontender, No hepatosplenomegaly present and no masses Auscultation: normal bowel sounds Back/Spine/Pelvis Thoracic/Lumbar Spine: thoracic and lumbar spine normal to inspection Skin General skin exam: no rashes or lesions noted Neuro General: patient oriented x3 and no focal motor deficits Cranial nerves: Yes CN's II-XII intact bilaterally Extrem General: Yes normal to inspection, Yes no clubbing, cyanosis or edema and Yes no calf tenderness Psych Appearance: grossly normal and well kempt Speech and movement: Normal speech and movement present Assessment & Plan Assessment & Plan (1) COPD (chronic obstructive pulmonary disease): Comment: COPD is severe, but remains stable, well controlled , on current regimen, TX: FLOVENT-220 2 PUFFS BID SPIRIVA RESP.2.5 MG 2 INH DAILY PROAIR JUST PRN Code(s): J44.9 - Chronic obstructive pulmonary disease, unspecified Qualifiers: COPD type: unspecified COPD Qualified Code(s): J44.9 - Chronic obstructive pulmonary disease, unspecified Plan: RV q 6 months call us if symptoms get any worse . I advised her to do deep breathing exercises, at least 3 times a day. (2) Allergic rhinitis: Comment: Allergic rhinitis is mild, intermittent and controlled with the use of: Montelukast 10 mg daily plus Flonase which she uses only p.r.n.. Code(s): J30.9 - Allergic rhinitis, unspecified Plan: Montelukast 10 mg once a day is changed to only on PRN basis Medications: Changed From montelukast 10 mg PO DAILY 90 tabs 2RF To montelukast 10 mg PO DAILY PRN Coding Level of Care Code Est Pt Level 3 (59679) Diagnoses Chronic obstructive pulmonary disease, unspecified COPD type J44.9 COPD type: unspecified COPD Allergic rhinitis J30.9
== END 2023-06-11 10:15 | disposition home or self-care (01) ==
PROVIDERS: PCP Internal Medicine; Visit Provider Internal Medicine
DX: J44.9 Chronic obstructive pulmonary disease, unspecified (principal); J30.9 Allergic rhinitis, unspecified
CPT/HCPCS: 99213

== ENCOUNTER → 2023-06-11 09:43 | Outpatient (BNVA) | payer MEDICARE, SELFPAY | PROVIDERS: PCP Internal Medicine; Visit Provider Internal Medicine | DX: J44.9 Chronic obstructive pulmonary disease, unspecified (principal); J30.9 Allergic rhinitis, unspecified | CPT/HCPCS: 99212 ==

== ENCOUNTER 2023-08-10 07:04 | Outpatient (REF) | payer MEDICARE, SELFPAY ==
[2023-08-10 08:55] LABS: Alanine Aminotransferase 9 U/L (0-31); Albumin Level 3.9 g/dL (3.5-5.0); Alkaline Phosphatase 77 U/L (39-117); Anion Gap 14 (12-20); Aspartate Amino Transferase 17 U/L (5-31); Bilirubin Total 0.5 mg/dL (0.0-1.0); Blood Urea Nitrogen 11 mg/dL (9-16); Calcium 9.6 mg/dL (8.4-10.2); Carbon Dioxide 27 mmol/L (22-29); Chloride 102 mmol/L (96-108); Cholesterol 189 mg/dL (<200); Estimated Glomerular Filt Rate > 60; Glucose Fasting 101 mg/dL (60-99); HDL Cholesterol 80 mg/dL (>40); LDL Cholesterol Calculated 100 mg/dL (<100); Potassium 4.1 mmol/L (3.3-5.1); Sodium 139 mmol/L (135-145); Total Protein 6.7 g/dL (6.5-8.0); Triglycerides 49 mg/dL (<150)
== END 2023-08-10 07:05 | disposition home or self-care (01) ==
LOC: HO.LAB 07:04
PROVIDERS: PCP Internal Medicine; Visit Provider Nurse Practitioner Family
DX: E78.5 Hyperlipidemia, unspecified (principal); I10 Essential (primary) hypertension
CPT/HCPCS: 36415; 80053; 80061

== ENCOUNTER 2023-08-26 00:25 | Inpatient (IN) | payer MEDICARE, SELFPAY ==
[2023-08-26] VITALS (15 sets, daily range): BP systolic 153–178; BP diastolic 65–87; PULSE 86–115; RESP 18–24; TEMP 36–37.2; O2SAT 91–98; BMI 20.6; BMI 22.7
--- NOTE | ~2023-08-26 | XR_ITS ---
EXAMINATION: XR CHEST CLINICAL INFORMATION: Cough. COMPARISON: 10/24/2020. TECHNIQUE: Frontal view of the chest was obtained. FINDINGS: The cardiomediastinal silhouette is normal. There is emphysematous change/COPD with mild diffuse increased interstitial markings. There is no focal lung consolidation or pleural effusions. The bony structures are osteopenic. The soft tissues are unremarkable. XR/XR chest 1V IMPRESSION: No acute cardiopulmonary process. Emphysematous change/COPD.
--- NOTE | 2023-08-26 00:37 | ECG_ITS ---
Test Reason : SOB Blood Pressure : / mmHG Vent. Rate : 090 BPM Atrial Rate : 090 BPM P-R Int : 154 ms QRS Dur : 086 ms QT Int : 348 ms P-R-T Axes : 081 -61 068 degrees QTc Int : 425 ms Normal sinus rhythm Left anterior fascicular block Minimal voltage criteria for LVH, may be normal variant ( [place] product ) Abnormal ECG When compared with ECG of 03-JUL-2016 07:04, T wave amplitude has increased in Anterior leads Referred By: La En[place]as Electronically Signed By:RUBEN HERNDON
[2023-08-26] MEDS: Albuterol Sulfate 2.5 MG, Albuterol/Iprat 2.5/0.5MG 3 ML 3 ML INHALE (00:57)
[2023-08-26 01:04] LABS: MANUAL DIFF FLAG NO
[2023-08-26 01:06] LABS: Basophils Absolute Auto 0.1 X10*3/uL (0.0-0.2); Basophils Percent Auto 0.4 % (0-2); Eosinophils Absolute Auto 0.2 X10*3/uL (0.0-0.4); Eosinophils Percent Auto 1.1 % (0-4); Hematocrit 39.5 % (37.0-47.0); Hemoglobin 13.3 g/dl (12.0-16.0); Imm Gran Abs Auto 0.07 X10*3/uL (0.00-0.03); Imm Gran Pct Auto 0.4 % (0.0-0.4); Lymphocytes Absolute Auto 0.7 X10*3/uL (1.2-4.9); Lymphocytes Percent Auto 4.5 % (20-40); Mean Corpuscular HGB Conc 33.7 g/dl (31.0-35.0); Mean Corpuscular Hemoglobin 32.2 pg (27.0-33.0); Mean Corpuscular Volume 95.6 fL (80.0-98.0); Mean Platelet Volume 9.5 fL (9.4-12.3); Monocytes Absolute Auto 0.8 X10*3/uL (0.1-1.2); Monocytes Percent Auto 5.2 % (2-11); Neutrophils Absolute Auto 13.9 x10*3/uL (2.0-8.3); Neutrophils Percent Auto 88.4 % (45-73); Platelet Count 216 X10*3/uL (160-400); Red Blood Count 4.13 X10*6/uL (4.20-5.50); Red Cell Distribution Width 13.1 % (11.0-16.0); White Blood Count 15.7 X10*3/uL (4.8-10.8)
[2023-08-26 01:08] LABS: Venous Blood Gas Refer to POC result
[2023-08-26 01:10] LABS: VBG Base Excess 0.9 mmol/L; VBG HCO3 26 mmol/L (22-26); VBG pCO2 42 mmHg; VBG pH 7.39 (7.32-7.43); VBG pO2 48 mmHg
[2023-08-26 01:17] LABS: Lactic Acid 1.6 mmol/L (0.5-2.0)
[2023-08-26] MEDS: methylPREDNISolone Sod Succ 125 MG/2 ML VIAL 60 MG IVPUSH (01:19)
[2023-08-26] MEDS: cefTRIAXone sodium 1 GM in 0.9 % Sodium Chloride 50 ML IV (01:20)
[2023-08-26] MEDS: 0.9 % Sodium Chloride 500 ML IV (01:20)
[2023-08-26 01:26] LABS: B Type Natriuretic Peptide 213 pg/mL (<100)
[2023-08-26 01:27] LABS: Troponin-I High Sensitivity 4.5 ng/L (<3.5-17.0)
[2023-08-26 01:37] LABS: Alanine Aminotransferase 10 U/L (0-31); Albumin Level 4.1 g/dL (3.5-5.0); Alkaline Phosphatase 100 U/L (39-117); Anion Gap 16 (12-20); Aspartate Amino Transferase 19 U/L (5-31); Bilirubin Total 0.3 mg/dL (0.0-1.0); Blood Urea Nitrogen 7 mg/dL (9-16); Calcium 9.6 mg/dL (8.4-10.2); Carbon Dioxide 24 mmol/L (22-29); Chloride 103 mmol/L (96-108); Creatinine Clr Calc Pharmacy 50.2; Estimated Glomerular Filt Rate > 60; Glucose Random 114 mg/dL (60-115); Magnesium 1.4 mg/dL (1.6-2.6); Potassium 3.6 mmol/L (3.3-5.1); Sodium 139 mmol/L (135-145); Total Protein 7.4 g/dL (6.5-8.0)
--- NOTE | 2023-08-26 01:39 | PC.NURSE ---
upon arrival to ED room 3, this RN placed a #20g iv to LFA, obtained labs and 1st set blood cultures, placed pt on country manager, ekg done, RT at bedside giving breathing treatment, tech in room obtaining 2nd blood culture sample. ceftriaxone then hung, pt medicated per aug. azithromycin to be given next after ceftriaxone complete. Pt resting comfortably on stretcher, productive cough, green phlegm/mucus production. critical magnesium reported to MD villa. plan of care ongoing
[2023-08-26 01:40] LABS: IDNOW Serial# 08D9AD1C; Strep A Nucleic Acid Negative (Negative)
[2023-08-26 01:43] LABS: Procalcitonin 0.03 ng/mL
[2023-08-26 02:08] LABS: Influenza A PCR NEGATIVE (Negative); Influenza B PCR NEGATIVE (Negative); Resp Syncy Virus RNA Qual PCR NEGATIVE (Negative); SARS COV2 PCR INHOUSE NEGATIVE (Negative)
[2023-08-26] MEDS: Azithromycin 500 MG in 0.9 % Sodium Chloride 250 ML 125 MG IV (02:12)
[2023-08-26] MEDS: Magnesium Sulfate/H2O 2 GM/50 ML PIGGYBACK IV (02:13)
--- NOTE | 2023-08-26 02:14 | ED_ITS ---
HPI - SOB/Dyspnea General Chief Complaint: Upper Respiratory Symptoms Stated Complaint: flu like, trouble breathing Time Seen by Provider: 08/26/23 01:06 Source: patient Mode of arrival: ambulatory Limitations: no limitations History of Present Illness HPI Narrative: 78-year-old female with a history of hypertension, hyperlipidemia, COPD, anxiety who presents emergency department for evaluation of 2 days productive cough, shortness of breath, dyspnea on exertion sore throat, rhinorrhea. The patient states that over the past 2 days she has had a cough which is occasionally productive of thick brown to orange phlegm. She states that she has had a sore throat and rhinorrhea. She is feeling very fatigued. She states that when she walks short distance she gets very winded which is unusual for her. The patient does have COPD and she states that she usually uses her albuterol rescue inhaler once a day but over the past several days she has had to use it 3 to 4 times a day which is unusual for her. Patient's shortness of breath was getting worse, the patient's daughter was concerned about her productive cough and the color of her sputum therefore she brought the patient to the emergency department for evaluation. Related Data Home Medications Medication Instructions Recorded Confirmed cholecalciferol (vitamin D3) 50 50 mcg PO DAILY 08/09/21 06/11/23 mcg (2,000 unit) capsule folic acid 1 mg tablet 1 mg PO DAILY 08/09/21 06/11/23 vitamin B complex (B 1 tab PO DAILY 08/09/21 06/11/23 Complex-Vitamin B12 tablet) montelukast 10 mg tablet 10 mg PO DAILY PRN 06/11/23 06/11/23 turmeric 100 mg-carol 150 cap PO 06/11/23 06/11/23 mg-olive 50 mg-oreg 150 mg-capryl capsule Previous Rx's Medication Instructions Recorded omeprazole 20 mg capsule,delayed 20 mg PO BID #180 caps 10/08/21 release fluticasone propionate 0.05 % 1 appl topical DAILY 15 days #15 06/04/22 topical cream grams oxybutynin chloride 10 mg 10 mg PO DAILY 90 days #90 tabs 06/30/22 tablet,extended release 24 hr losartan 25 mg tablet 25 mg PO DAILY hypertension 90 09/25/22 days #90 tabs rosuvastatin 5 mg tablet 5 mg PO DAILY 90 days #90 tabs 01/07/23 amlodipine 5 mg tablet 5 mg PO DAILY #90 tabs 03/23/23 Flovent HFA 220 mcg/actuation 2 puff PO BID for asthma #12 grams 04/26/23 aerosol inhaler (fluticasone propionate) albuterol sulfate 90 mcg/actuation 2 inh inhalation Q4-6H PRN 04/26/23 breath activated powder inhaler shortness of breath or wheezing #1 (ProAir RespiClick) ea Spiriva Respimat 2.5 mcg/actuation 2 puff PO DAILY #4 mL 05/14/23 solution for inhalation (tiotropium bromide) ibuprofen 800 mg tablet 800 mg PO Q8H PRN pain 30 days #14 08/14/23 tabs lorazepam 0.5 mg tablet 0.5 mg PO Q8H PRN anxiety 30 days 08/14/23 #90 tabs Allergies Allergy/AdvReac Type Severity Reaction Status Date / Time Sulfa (Sulfonamide Allergy Intermediate nausea, Verified 08/26/23 00:29 Antibiotics) vomiting Review of Systems 2 Review of Systems: Yes all other systems are reviewed and are negative [facility] Past Medical History [facility] Narrative: Social history: The patient stop smoking 8 years prior but she has a greater than 50 pack-year history of smoking. She denies drug use. She occasionally drinks alcohol. Medical History Skin lesion Dyslipidemia Cough due to DAISY inhibitor Neck pain GERD (gastroesophageal reflux disease) Aortic regurgitation Right hand pain Leg edema COPD (chronic obstructive pulmonary disease) Allergic rhinitis Anxiety Hypertension Surgical History Carpal tunnel syndrome, right History of bilateral cataract extraction History of partial hysterectomy Family History Family History Father Medical history unknown Mother Medical history unknown Social History Social History Housing: House Alcohol intake: current Alcohol intake frequency: holidays/special occasions only Alcohol type: other Patient Tobacco Use Status: Former Tobacco user Tobacco use type: Cigarette Smoked in Last 30 Days: No e-Cigarette/Vaping Use: Never Used Second Hand Smoke Exposure: No Use of substances other than those prescribed or required for medical reasons: No Advance Directives: No Advance Directives Information Provided: No Advance Directives Date on File: 08/25/20 service: No Current occupational status: retired Cognitive needs: No Hearing needs: No Vision needs: No Physical Exam 2 Vital Signs: Vital Signs: Last Vital Signs Temp 96.8 F 08/26/23 00:29 Pulse 86 08/26/23 01:02 Resp 21 H 08/26/23 01:02 BP 178/65 H 08/26/23 00:29 Pulse Ox 93 08/26/23 01:43 O2 Del Method Room Air 08/26/23 01:43 BMI result Body Mass Index 20.6 Vital signs revealed an elevated blood pressure of 178/65, patient's O2 saturation on room air was 93%, according to nursing staff when the patient walk to the bathroom her O2 saturation dropped 86% on room air. Exam: General: Awake, alert in no distress Head: Normocephalic, atraumatic EENT: PERRL, Lids normal, sclera normal, conjunctiva normal, nose normal , ears normal, throat without erythema or exudates Neck: Supple, no adenopathy Lung: Diffuse wheezing, diffuse rhonchi, no rales Chest: symmetric movement, nontender Heart: regular rate and rhythm, normal S1, S2 no murmurs or rubs Abdomen: soft, non-tender, nondistended, normal bowel sounds Back: no vertebral tenderness, no CVAT Extremities: no deformities, moves all extremities symmetrically Neuro: Awake, alert, oriented, normal speech, cranial nerves intact, moves all extremities symmetrically Psych: Pleasant, cooperative Medications Administered Generic Name Dose Route Start Last Admin Trade Name Freq PRN Reason Stop Dose Admin Magnesium Sulfate 2 gm in 50 mls @ 25 mls/hr 08/26/23 01:39 08/26/23 02:13 Magnesium Sulfate/H2o IV 08/26/23 03:38 25 mls/hr ONCE ONE Administration Discontinued Medications Generic Name Dose Route Start Last Admin Trade Name Freq PRN Reason Stop Dose Admin Albuterol Sulfate 2.5 mg/ 0 mg 08/26/23 00:53 08/26/23 00:57 Albuterol/Ipratropium 3 ml INHALE 08/26/23 00:54 5 dose ONCE ONE Administration Ceftriaxone Sodium 1 gm/ 50 mls @ 100 mls/hr 08/26/23 00:37 08/26/23 02:00 Sodium Chloride IV 08/26/23 01:06 Infused ONCE ONE Infusion Azithromycin 500 mg/ Sodium 250 mls @ 125 mls/hr 08/26/23 00:37 08/26/23 02:12 Chloride IV 08/26/23 02:36 125 mls/hr ONCE ONE Administration Sodium Chloride 500 mls @ 500 mls/hr 08/26/23 00:45 08/26/23 01:20 Ns IV 08/26/23 01:44 500 mls/hr .Q1H MARIA D Administration Methylprednisolone Sodium Succinate 60 mg 08/26/23 00:37 08/26/23 01:19 Methylprednisolone Sod Succ 125 Mg/2 Ml Vial IVPUSH 08/26/23 00:38 60 mg ONCE ONE Administration Medical Decision Making Medical Decision Making MDM Narrative: 78-year-old female with a history of COPD, hypertension, hyperlipidemia, anxiety who presents emergency department for evaluation of 2 days of occasionally productive cough with thick orange to brown sputum, shortness of breath, significant dyspnea on exertion, rhinorrhea and sore throat. Patient had to use her albuterol inhaler 3 to 4 times a day which is unusual for her. Patient's O2 saturation on room air in the emergency department was 92% but when she walk to the bathroom her O2 saturation dropped to 86% and she was dyspneic. 03:05 hours Differential diagnosis: ?Includes but is not limited to bronchitis, pneumonia, viral syndrome, pharyngitis, streptococcal pharyngitis, anemia, electrolyte abnormalities Following evaluation was ordered: CBC, CMP, BNP, magnesium, procalcitonin, troponin, venous blood gas, blood cultures x2 rapid strep, COVID-19, influenza, RSV, chest x-ray, EKG Patient was initially treated with the following: Albuterol nebulizer 2.5+ DuoNeb nebulizer, Solu-Medrol 60 mg IV, Zithromax 500 mg IV, ceftriaxone 1 g IV Course: My independent interpretation patient's laboratory evaluation is as follows: WBC was elevated 15,700 with a left shift 88 neutrophils and 4.5 lymphocytes. Venous blood gas revealed a normal pH of 7.39 and a normal pCO2 of 42 with a normal bicarb of 26. CMP was normal. Magnesium was low at 1.4. High sensitive troponin was detectable but not elevated at 4.5. BNP is elevated 213-this is most likely secondary to her COPD and not congestive heart failure. Lactic acid was normal at 1.4. Procalcitonin was normal at 0.03. COVID-19, RSV, influenza and rapid strep were negative The patient did get some improvement with the above treatment however the patient did have dyspnea with exertion in her O2 saturation did drop to 86% on room air. I did order albuterol 5 mg nebulized since the patient continues to feel dyspneic and does have wheezing at the end of expiration. The patient most likely has an exacerbation of her chronic lung disease caused by either a bacterial or viral infection, I will discuss admission with the covering hospitalist. Admission/Observation Consideration of admission/observation: Escalation of care including admission/observation considered Consult Healthcare Provider Management of the patient was discussed with: Hospitalist Lab Data MDM Lab Attestation statement: I reviewed the patient's lab results. 08/26/23 00:58 08/26/23 00:58 Labs: Lab Results 08/26/23 08/26/23 08/26/23 Range/Units 00:58 01:03 01:21 WBC 15.7 H (4.8-10.8) X10*3/uL RBC 4.13 L (4.20-5.50) X10*6/uL Hgb 13.3 (12.0-16.0) g/dl Hct 39.5 (37.0-47.0) % MCV 95.6 (80.0-98.0) fL MCH 32.2 (27.0-33.0) pg MCHC 33.7 (31.0-35.0) g/dl RDW 13.1 (11.0-16.0) % Plt Count 216 D (160-400) X10*3/uL MPV 9.5 (9.4-12.3) fL Immature Gran % (Auto) 0.4 (0.0-0.4) % Neut % (Auto) 88.4 H (45-73) % Lymph % (Auto) 4.5 L (20-40) % Overton % (Auto) 5.2 (2-11) % Eos % (Auto) 1.1 (0-4) % Baso % (Auto) 0.4 (0-2) % Lymph # (Auto) 0.7 L (1.2-4.9) X10*3/uL Overton # (Auto) 0.8 (0.1-1.2) X10*3/uL Eos # (Auto) 0.2 (0.0-0.4) X10*3/uL Baso # (Auto) 0.1 (0.0-0.2) X10*3/uL Abs Immat Gran (auto) 0.07 H (0.00-0.03) X10*3/uL Absolute Neuts (auto) 13.9 H (2.0-8.3) x10*3/uL Absolute Nucleated RBC 0.000 (0.0-0.012) X10*3/uL Nucleated RBC % (auto) 0.0 (0.0-0.2) /100WBC VBG pH 7.39 (7.32-7.43) VBG pCO2 42 mmHg VBG pO2 48 mmHg VBG HCO3 26 (22-26) mmol/L VBG O2 Saturation 80.0 % VBG Base Excess 0.9 mmol/L Sodium 139 (135-145) mmol/L Potassium 3.6 (3.3-5.1) mmol/L Chloride 103 (96-108) mmol/L Carbon Dioxide 24 (22-29) mmol/L Anion Gap 16 (12-20) BUN 7 L (9-16) mg/dL Creatinine 0.78 (0.5-1.4) mg/dL Estim Creat Clear Calc 50.2 Estimated GFR > 60 Random Glucose 114 (60-115) mg/dL Lactic Acid 1.6 (0.5-2.0) mmol/L Calcium 9.6 (8.4-10.2) mg/dL Magnesium 1.4 L* (1.6-2.6) mg/dL Total Bilirubin 0.3 (0.0-1.0) mg/dL AST 19 (5-31) U/L ALT 10 (0-31) U/L Alkaline Phosphatase 100 (39-117) U/L Troponin I High Sens 4.5 (<3.5-17.0) ng/L B-Natriuretic Peptide 213 H (<100) pg/mL Total Protein 7.4 (6.5-8.0) g/dL Albumin 4.1 (3.5-5.0) g/dL Procalcitonin 0.03 ng/mL Influenza Type A (PCR) NEGATIVE (Negative) Influenza Type B (PCR) NEGATIVE (Negative) RSV RNA Qual (PCR) NEGATIVE (Negative) SARS-CoV-2 RNA (RT-PCR) NEGATIVE (Negative) S. pyogenes GrpA DORON Negative (Negative) Independent Interpretation I performed an independent interpretation of an: EKG Interpretation: My independent interpretation patient's 12 EKG done at 00:50 hours is as follows: Normal sinus rhythm with a rate of 90, normal CO interval, QRS duration QTC interval, no ST segment elevation, no ST segment depression, no T- wave abnormalities Radiology Impression Discussion of test interpretation with radiology: I have reviewed the radiologist's reading. Radiologist Impression: XR chest 1V IMPRESSION: No acute cardiopulmonary process. Emphysematous change/COPD. Dictated By: Mick Sauceda Independent Historian Clinical information obtained from an independent historian. History obtained from or confirmed by: Other (Daughter) Chronic Conditions Patient?s care impacted by: Hypertension and Other (Hyperlipidemia, COPD) Discharge Plan Discharge Clinical Impression: Chronic lung disease, Acute bronchitis Patient Disposition: Admitted As Inpatient Prescriptions: No Action omeprazole 20 mg capsule,delayed release(DR/EC) 20 mg PO BID Qty: 180 3RF fluticasone propionate 0.05 % cream 1 appl topical DAILY 15 Days Qty: 15 6RF oxybutynin chloride 10 mg tablet extended release 24hr 10 mg PO DAILY 90 Days Qty: 90 0RF losartan 25 mg tablet 25 mg PO DAILY 90 Days Qty: 90 3RF rosuvastatin 5 mg tablet 5 mg PO DAILY 90 Days Qty: 90 1RF amlodipine 5 mg tablet 5 mg PO DAILY Qty: 90 1RF Spiriva Respimat 2.5 mcg/actuation mist 2 puff PO DAILY Qty: 4 5RF lorazepam 0.5 mg tablet 0.5 mg PO Q8H PRN (Reason: anxiety) 30 Days Qty: 90 0RF ibuprofen 800 mg tablet 800 mg PO Q8H PRN (Reason: pain) 30 Days Qty: 14 0RF Flovent HFA 220 mcg/actuation HFA aerosol inhaler 2 puff PO BID Qty: 12 5RF ProAir RespiClick 90 mcg/actuation aerosol powdr breath activated 2 inh inhalation Q4-6H PRN (Reason: shortness of breath or wheezing) Qty: 1 2RF cholecalciferol (vitamin D3) 50 mcg (2,000 unit) capsule 50 mcg PO DAILY folic acid 1 mg tablet 1 mg PO DAILY vitamin B complex [B Complex-Vitamin B12] Tablet 1 tab PO DAILY montelukast 10 mg tablet 10 mg PO DAILY PRN [id number]-oreg-capry 100 mg-150 mg- 50 mg-150 mg capsule PO
[2023-08-26] MEDS: Albuterol Sulfate (0.083%) 2.5 MG/3 ML VIAL.NEB 5 MG INHALE (03:06)
--- NOTE | 2023-08-26 03:16 | PC.NURSE ---
pt ambulated with this RN to and from bathroom - upon getting back into the bed pt was 86% O2 on room air and reported increased sob with exertion/ambulation. Notified.
--- NOTE | 2023-08-26 04:17 | PC.NURSE ---
pt drops down to 86% room air with just sitting up in stretcher, reporting chest tightness and trouble breathing despite 2 breathing treatments by RT. MD Aydin Roach notified. pt placed on 2L O2 nasal canula for comfort. call hager within reach, plan of care ongoing
[2023-08-26 04:57] LABS: Basophils Percent Auto 0.1 % (0-2); Eosinophils Percent Auto 0.1 % (0-4); Hematocrit 36.8 % (37.0-47.0); Hemoglobin 12.6 g/dl (12.0-16.0); Imm Gran Pct Auto 0.7 % (0.0-0.4); Lymphocytes Absolute Auto 0.2 X10*3/uL (1.2-4.9); Lymphocytes Percent Auto 1.5 % (20-40); MANUAL DIFF FLAG SCAN; Mean Corpuscular HGB Conc 34.2 g/dl (31.0-35.0); Mean Corpuscular Hemoglobin 32.8 pg (27.0-33.0); Mean Corpuscular Volume 95.8 fL (80.0-98.0); Mean Platelet Volume 9.6 fL (9.4-12.3); Monocytes Absolute Auto 0.2 X10*3/uL (0.1-1.2); Monocytes Percent Auto 1.2 % (2-11); Neutrophils Absolute Auto 13.3 x10*3/uL (2.0-8.3); Neutrophils Percent Auto 96.4 % (45-73); Platelet Count 203 X10*3/uL (160-400); Red Blood Count 3.84 X10*6/uL (4.20-5.50); Red Cell Distribution Width 13.2 % (11.0-16.0); SCAN SMEAR FLAG 1; White Blood Count 13.8 X10*3/uL (4.8-10.8)
[2023-08-26] MEDS: Albuterol/Iprat 2.5/0.5MG 3 ML AMPUL.NEB INHALE ×3 (04:58→13:38)
[2023-08-26] MEDS: guaiFENesin DM 100/10/5 ML 5 ML SYRUP PO ×3 (04:58→17:38)
--- NOTE | 2023-08-26 04:58 | PM.IMHP ---
History of Present Illness Date of Service: 08/26/23 Attending physician on admission: Vasile Roach Chief Complaint: Shortness of breaths Yasmeen Andrews is a 78 years old woman with past medical history significant for severe COPD -not on home O2 (on Spiriva, Flovent and ProAir), allergic rhinitis, hyperlipidemia, hypertension and anxiety presents to the emergency department complaining of worsening shortness of breath. She stated that on Saturday she started to have sore throat and cough and nasal congestion. She reported chills. She has been taking DayQuil and NyQuil for her symptoms. Unfortunately, tonight she started to present worsening shortness of breath and decided to be evaluated in the emergency department. Patient mentioned that her grandchildren are sick. She did not report any headache, chest pain or palpitations. She did not report any gastrointestinal or genitourinary symptoms. She is a former tobacco smoker. She denied alcohol abuse or illicit drug use. PFT's May 2022: Severe COPD In the ED, tachypnea and tachycardia. There is no hypotension or fever. Oxygen saturation dropped to 86% on room air. She is currently requiring 2 L.min supplemental oxygen via nasal cannula. Blood workup showed leukocytosis of 15.7. There is no lactic acidosis. There are no electrolyte imbalances except for hypomagnesemia. BNP is elevated and LFTs are normal. Renal function is normal. CXR is negative. Viral testing for COVID-19, influenza and RSV is negative. Strep test is negative EKG showed no acute ischemic changes. ED tx: Solu-Medrol 60 mg IV, ceftriaxone 1 g IV, azithromycin 500 mg IV, magnesium 2 g IV. Albuterol neb and NS 500 mL IV. Review of Systems Review of Systems: All 12 systems were reviewed and normal except as noted in HPI. Neurologic: Denies Abnormal speech present [facility] Medical History Skin lesion Dyslipidemia Cough due to DAISY inhibitor Neck pain GERD (gastroesophageal reflux disease) Aortic regurgitation Right hand pain Leg edema COPD (chronic obstructive pulmonary disease) Allergic rhinitis Anxiety Hypertension Family History Father Medical history unknown Mother Medical history unknown Surgical History Carpal tunnel syndrome, right History of bilateral cataract extraction History of partial hysterectomy Social History Housing: House Alcohol intake: current Alcohol intake frequency: holidays/special occasions only Alcohol type: other Patient Tobacco Use Status: Former Tobacco user Tobacco use type: Cigarette Smoked in Last 30 Days: No e-Cigarette/Vaping Use: Never Used Second Hand Smoke Exposure: No Use of substances other than those prescribed or required for medical reasons: No Advance Directives: No Advance Directives Information Provided: No Advance Directives Date on File: 08/25/20 Nutrition Risks: No Nutritional Risk service: No Current occupational status: retired Cognitive needs: No Hearing needs: No Vision needs: No Meds Allergies Allergy/AdvReac Type Severity Reaction Status Date / Time Sulfa (Sulfonamide Allergy Intermediate nausea, Verified 08/26/23 00:29 Antibiotics) vomiting Active Medications: Current Medications Acetaminophen (Acetaminophen 325 Mg Tablet) 650 mg PO Q6H PRN PRN Reason: Pain, Mild (Pain Scale 1-3) Albuterol/Ipratropium (Albuterol/Iprat 2.5/0.5mg 3 Ml Ampul.Neb) 3 ml INHALE Q4H MARIA D Stop: 08/26/23 13:01 Last Admin: 08/26/23 04:58 Dose: 3 ml Amlodipine Besylate (Amlodipine Besylate 5 Mg Tablet) 5 mg PO DAILY MARIA D; Protocol Atorvastatin Calcium (Atorvastatin Calcium 20 Mg Tablet) 20 mg PO DAILY [facility] Fluticasone Propionate (Fluticasone Propionate 250 Mcg Blst.W.Dev) 2 puff INHALE BID [facility] Folic Acid (Folic Acid 1 Mg Tablet) 1 mg PO DAILY [facility] Guaifenesin/Dextromethorphan (Guaifenesin Dm 100/10/5 Ml 5 Ml Syrup) 5 ml PO Q4H PRN PRN Reason: Cough Heparin Sodium (Porcine) (Heparin Sodium,Porcine 5,000 Unit/Ml Vial) 5,000 unit SUBCUT Q12H MARIA D Lorazepam (Lorazepam 0.5 Mg Tablet) 0.5 mg PO Q8H PRN PRN Reason: anxiety Losartan Potassium (Losartan Potassium 25 Mg Tablet) 25 mg PO DAILY MARIA D; Protocol Methylprednisolone Sodium Succinate (Methylprednisolone Sod Succ 40 Mg/Ml Vial) 40 mg IVPUSH Q12H [facility] Montelukast Sodium (Montelukast Sodium 10 Mg Tablet) 10 mg PO DAILY [facility] Sodium Chloride (0.9 % Sodium Chloride Flush 3 Ml Syringe) 3 ml IVFLUSH QSHIFT [facility] Home Medications Medication Instructions Recorded Confirmed Last Taken Type cholecalciferol (vitamin D3) 50 50 mcg PO DAILY 08/09/21 06/11/23 Unknown History mcg (2,000 unit) capsule folic acid 1 mg tablet 1 mg PO DAILY 08/09/21 08/26/23 Unknown History vitamin B complex (B 1 tab PO DAILY 08/09/21 06/11/23 Unknown History Complex-Vitamin B12 tablet) montelukast 10 mg tablet 10 mg PO DAILY PRN 06/11/23 06/11/23 Unknown History turmeric 100 mg-carol 150 cap PO 06/11/23 06/11/23 Unknown History mg-olive 50 mg-oreg 150 mg-capryl capsule fluticasone propionate 220 2 puff inhalation BID asthma 08/26/23 08/26/23 Unknown History mcg/actuation HFA aerosol inhaler rosuvastatin 5 mg tablet 5 mg PO DAILY 08/26/23 08/26/23 Unknown History tiotropium bromide 2.5 2 puff inhalation DAILY 08/26/23 08/26/23 Unknown History mcg/actuation mist for inhalation (Spiriva Respimat) Physical Exam Vital Signs and Narrative: Vital Signs: Last Vital Signs Temp 98.5 F 08/26/23 02:00 Pulse 109 H 08/26/23 03:43 Resp 24 H 08/26/23 03:43 BP 153/67 H 08/26/23 02:00 Pulse Ox 94 08/26/23 03:43 O2 Del Method Nasal Cannula 08/26/23 03:43 O2 Flow Rate 2 08/26/23 03:43 BMI result Body Mass Index 20.6 Const: General: cooperative, no acute distress, alert, awake, Physically active and anxious Orientation/consciousness: patient oriented x3 HEENT: Head: Yes normocephalic and Yes atraumatic Mouth: lip normal, tongue normal, oropharynx normal and moist mucous membranes Eyes: General: appearance normal, both eyes and all related structures Eyelids: Yes eyelids normal Sclerae: sclerae normal Pupils: Equal, round and reactive pupils present EOM: EOMs intact bilaterally Resp: Effort & Inspection: normal respiratory effort, able to speak in complete sentences, Actively coughing, tachypneic, no use of accessory muscles and symmetric chest movement Auscultation: wheezes Cardio: Rate: tachycardic Rhythm: regular rhythm Heart sounds: no murmurs GI: Inspection: No distended Rectal Exam - Female: deferred Skin: General skin exam: no rashes or lesions noted Neuro: General: patient oriented x3 and no focal motor deficits Cranial nerves: Yes Equal, round and reactive pupils present Speech: No Abnormal speech present Extrem: General: Yes full ROM and Yes no clubbing, cyanosis or edema Psych: Speech and movement: Normal speech and movement present Affect: Anxious affect present Attitude: cooperative Thought process: Normal thought process present Results Labs 08/26/23 00:58 08/26/23 00:58 Labs: Laboratory Results - last 24 hr 08/26/23 08/26/23 08/26/23 00:58 01:03 01:21 MCV 95.6 MCH 32.2 MCHC 33.7 RDW 13.1 Plt Count 216 D MPV 9.5 Immature Gran % (Auto) 0.4 Neut % (Auto) 88.4 H Lymph % (Auto) 4.5 L Arroyo % (Auto) 5.2 Eos % (Auto) 1.1 Baso % (Auto) 0.4 Lymph # (Auto) 0.7 L [place]o # (Auto) 0.8 Eos # (Auto) 0.2 Baso # (Auto) 0.1 Abs Immat Gran (auto) 0.07 H Absolute Neuts (auto) 13.9 H Absolute Nucleated RBC 0.000 Nucleated RBC % (auto) 0.0 VBG pH 7.39 VBG pCO2 42 VBG pO2 48 VBG HCO3 26 VBG O2 Saturation 80.0 VBG Base Excess 0.9 Anion Gap 16 Estim Creat Clear Calc 50.2 Estimated GFR > 60 Random Glucose 114 Lactic Acid 1.6 Calcium 9.6 Magnesium 1.4 L* Total Bilirubin 0.3 AST 19 ALT 10 Alkaline Phosphatase 100 Troponin I High Sens 4.5 B-Natriuretic Peptide 213 H Total Protein 7.4 Albumin 4.1 Procalcitonin 0.03 Influenza Type A (PCR) NEGATIVE Influenza Type B (PCR) NEGATIVE RSV RNA Qual (PCR) NEGATIVE SARS-CoV-2 RNA (RT-PCR) NEGATIVE S. pyogenes GrpA DORON Negative Imaging Radiologist's Impressions: Impressions Chest X-Ray 08/26/23 00:43 IMPRESSION: No acute cardiopulmonary process. Emphysematous change/COPD. Assessment and Plan (1) Acute exacerbation of chronic obstructive pulmonary disease (COPD): Status: Acute (2) Hyperlipidemia: Qualifiers: Hyperlipidemia type: unspecified Qualified Code(s): E78.5 - Hyperlipidemia, unspecified Status: Acute (3) Hypertension: Qualifiers: Hypertension type: essential hypertension Qualified Code(s): I10 - Essential (primary) hypertension Status: Acute (4) Anxiety: Status: Acute Plan Yasmeen Andrews is a 78 years old woman admitted with: Acute exacerbation of chronic obstructive pulmonary. Sepsis criteria: Tachypnea, tachycardia and leukocytosis without evidence of organ failure. Admit to hospitalist service. Telemetry. Pulse oximetry. Supplemental oxygen via NC to keep oxygen saturation > 90%. Continue bronchodilator therapy, IV steroids, fluticasone and montelukast. Anxiety. Ativan 0.5 mg p.o. every 8 hours as needed. Essential hypertension. Continue losartan and amlodipine. Hyperlipidemia. Continue statin. DVT prophylaxis: Heparin subcut Code status: Full Patient will need hospitalization for at least 2 midnights for acute exacerbation of COPD treatment with supplemental oxygen, bronchodilator therapy and IV steroids. Quality Stroke Does the patient have a stroke diagnosis?: No VTE Prior VTE?: No VTE Risk Level:: Medical - moderate - high VTE Device Contraindication: Treatment Not Indicated VTE Drug Contraindication: N/A - Med Ordered
[2023-08-26 05:08] LABS: Anion Gap 16 (12-20); Blood Urea Nitrogen 6 mg/dL (9-16); Carbon Dioxide 22 mmol/L (22-29); Chloride 105 mmol/L (96-108); Creatinine Clr Calc Pharmacy 57.6; Estimated Glomerular Filt Rate > 60; Glucose Random 193 mg/dL (60-115); Magnesium 1.9 mg/dL (1.6-2.6); Phosphorus 2.3 mg/dL (2.7-4.5); Potassium 3.1 mmol/L (3.3-5.1); Sodium 140 mmol/L (135-145)
[2023-08-26 05:17] LABS: SLIDE REVIEW VERIFIED
[2023-08-26] MEDS: Fluticasone Propionate 250 MCG BLST.W.DEV 2 PUFF INHALE ×2 (08:07→21:26)
--- NOTE | 2023-08-26 08:59 | PHA.MEDREC ---
Pharmacy Consult ? Medication Reconciliation Pharmacy has completed the medication reconciliation. Patient was an excellent historian. She stated she only takes her crestor QOD as it causes muscle cramps. She also stated she only takes her ativan once before bedtime.
[2023-08-26] MEDS: amLODIPine Besylate 5 MG TABLET PO (09:45)
--- NOTE | 2023-08-26 09:45 | PC.NURSE ---
pt is alert and oriented, skin pwd, respirations even and unlabored, ls diminished on the bases with intermitted junky cough, pt states just coming back from the the bathroom and feeling sob after ambulation , pt at baseline does not require O2 but is requiring in at this time, 2l via nasal cannual , pt denies pain at this time, vs stable
[2023-08-26] MEDS: Montelukast Sodium 10 MG TABLET PO (09:46)
[2023-08-26] MEDS: Folic Acid 1 MG TABLET PO (09:46)
[2023-08-26] MEDS: Atorvastatin Calcium 20 MG TABLET PO (09:46)
[2023-08-26] MEDS: Losartan Potassium 25 MG TABLET PO (09:46)
[2023-08-26] MEDS: methylPREDNISolone Sod Succ 40 MG/ML VIAL IVPUSH ×2 (09:47→20:54)
[2023-08-26] MEDS: Heparin Sodium,Porcine 5,000 UNIT/ML VIAL 5000 UNIT SUBCUT ×2 (09:47→20:56)
[2023-08-26] MEDS: 0.9 % Sodium Chloride Flush 3 ML SYRINGE IVFLUSH ×3 (09:48→20:53)
[2023-08-26] MEDS: LORazepam 0.5 MG TABLET PO ×2 (17:39→20:52)
[2023-08-27 03:48] VITALS: BP 153/71; PULSE 92; RESP 16; TEMP 37.1; O2SAT 94
[2023-08-27 07:40] VITALS: BP 146/69; PULSE 80; RESP 18; TEMP 36.7; O2SAT 98
[2023-08-27] MEDS: Fluticasone Propionate 250 MCG BLST.W.DEV 2 PUFF INHALE (08:13)
[2023-08-27 08:16] VITALS: PULSE 88; RESP 18; O2SAT 92
[2023-08-27] MEDS: methylPREDNISolone Sod Succ 40 MG/ML VIAL IVPUSH (09:30)
[2023-08-27] MEDS: Losartan Potassium 25 MG TABLET PO (09:30)
[2023-08-27] MEDS: amLODIPine Besylate 5 MG TABLET PO (09:30)
[2023-08-27] MEDS: Atorvastatin Calcium 20 MG TABLET PO (09:30)
[2023-08-27] MEDS: Heparin Sodium,Porcine 5,000 UNIT/ML VIAL 5000 UNIT SUBCUT (09:30)
[2023-08-27] MEDS: Multivitamin TABLET 1 TAB PO (09:31)
[2023-08-27] MEDS: Omeprazole 20 MG CAPSULE.DR PO (09:31)
[2023-08-27] MEDS: Cholecalciferol (Vitamin D3) 25 MCG TABLET 50 MCG PO (09:31)
[2023-08-27] MEDS: Folic Acid 1 MG TABLET PO (09:31)
[2023-08-27] MEDS: Montelukast Sodium 10 MG TABLET PO (09:31)
[2023-08-27] MEDS: 0.9 % Sodium Chloride Flush 3 ML SYRINGE IVFLUSH (09:32)
--- NOTE | 2023-08-27 10:26 | PM.DS ---
DS: Providers Provider Date of Service: 08/27/23 Date of admission: 08/26/23 03:43 Primary care physician: Parul Williamson MD DS: Diagnosis Discharge Diagnosis (1) Acute exacerbation of chronic obstructive pulmonary disease (COPD): Status: Resolved (2) Hyperlipidemia: Status: Resolved (3) Anxiety: Status: Resolved DS: Summary Hospital Course Hospital Course: admission hpi Chief Complaint: Shortness of breaths Yasmeen Andrews is a 78 years old woman with past medical history significant for severe COPD -not on home O2 (on Spiriva, Flovent and ProAir), allergic rhinitis, hyperlipidemia, hypertension and anxiety presents to the emergency department complaining of worsening shortness of breath. She stated that on Saturday she started to have sore throat and cough and nasal congestion. She reported chills. She has been taking DayQuil and NyQuil for her symptoms. Unfortunately, tonight she started to present worsening shortness of breath and decided to be evaluated in the emergency department. Patient mentioned that her grandchildren are sick. She did not report any headache, chest pain or palpitations. She did not report any gastrointestinal or genitourinary symptoms. She is a former tobacco smoker. She denied alcohol abuse or illicit drug use. PFT's May 2022: Severe COPD In the ED, tachypnea and tachycardia. There is no hypotension or fever. Oxygen saturation dropped to 86% on room air. She is currently requiring 2 L.min supplemental oxygen via nasal cannula. Blood workup showed leukocytosis of 15.7. There is no lactic acidosis. There are no electrolyte imbalances except for hypomagnesemia. BNP is elevated and LFTs are normal. Renal function is normal. CXR is negative. Viral testing for COVID-19, influenza and RSV is negative. Strep test is negative EKG showed no acute ischemic changes. ED tx: Solu-Medrol 60 mg IV, ceftriaxone 1 g IV, azithromycin 500 mg IV, magnesium 2 g IV. Albuterol neb and NS 500 mL IV. hospital course: The patient was admitted for the treatment of acute hypoxic respiratory failure due to a COPD exacerbation. A chest X-ray revealed no pneumonia, and tests for COVID, RSV, and flu came back negative. She has been treated with IV steroids and bronchodilators via nebulizer and has had a rapid recovery. Currently, her lungs are clear, her breathing is comfortable, and her oxygen saturation is 92% on room air. She has been assessed for home oxygen, with the oxygen goal set at 88 to 92% given her chronic lung disease from COPD. She is advised to continue abstinence from tobacco Time Attestation Discharge coordination time: Greater than 30 minutes Quality: Safe Use of Opioids Does Pt have an Active Cancer Diagnosis on the Problem List?: No Quality: Stroke Does the patient have a stroke diagnosis?: No Physical Exam Vital Signs: Vital Signs: Last Vital Signs Temp 98.1 F 08/27/23 07:40 Pulse 88 08/27/23 08:16 Resp 18 08/27/23 08:16 BP 146/69 H 08/27/23 07:40 Pulse Ox 98 08/27/23 07:40 O2 Del Method Nasal Cannula 08/27/23 07:40 O2 Flow Rate 1 08/27/23 07:40 BMI result Body Mass Index 22.7 General: AO X 3, no acute distress Resp: CTA bilateral CVS: S1,S2,RRR GI: +BS, NT, no distention Skin: No rash Neuro: motor grossly intact Psych: appropriate affect DS: Data Data Completed and Pending Labs on day of discharge: Preliminary micro results at discharge 08/26/23 01:21 Blood Culture - Preliminary Blood - Venous No growth after 24 hours. 08/26/23 00:59 Blood Culture - Preliminary Blood - Venous No growth after 24 hours. Discharge Plan Discharge Anticipated Discharge Date/Time: 08/27/23 10:33 Patient Disposition: Home Health Service Discharge Diagnosis: Acute exacerbation of copd Referrals: Parul Cartagena MD [Primary Care Provider] - 1 Week Discharge Medications: Continued Spiriva Respimat 2.5 mcg/actuation mist 2 puff inhalation DAILY ProAir RespiClick 90 mcg/actuation aerosol powdr breath activated 2 inh inhalation Q4-6H PRN (Reason: shortness of breath or wheezing) Qty: 1 2RF cholecalciferol (vitamin D3) 50 mcg (2,000 unit) capsule 50 mcg PO DAILY folic acid 1 mg tablet 1 mg PO DAILY vitamin B complex [B Complex-Vitamin B12] Tablet 1 tab PO DAILY nsbezbnq-bolf-qkytb-oreg-capry 100 mg-150 mg- 50 mg-150 mg capsule 1 cap PO 3XW No Action losartan 25 mg tablet 25 mg PO DAILY 90 Days Qty: 90 3RF amlodipine 5 mg tablet 5 mg PO DAILY Qty: 90 1RF ibuprofen 800 mg tablet 800 mg PO Q8H PRN (Reason: pain) 30 Days Qty: 30 0RF lorazepam 0.5 mg tablet 0.5 mg PO Q8H PRN (Reason: anxiety) 30 Days Qty: 90 0RF rosuvastatin 5 mg tablet 5 mg PO DAILY prednisone 5 mg tablet 5 mg PO Q48H fexofenadine 180 mg tablet 180 mg PO DAILY Qty: 90 0RF fluticasone furoate-vilanterol [Breo Ellipta] 200-25 mcg/dose blister with device 1 inh inhalation DAILY 30 Days Qty: 60 2RF Discharge Orders: Discharge Order (Routine); Ordered 08/27/23 Ordered By: Agustin Samano Diet: Advance to usual diet Activity on Discharge: As tolerated Stand Alone Forms: Patient Portal Discharge page Print Language: Turkmen Care Plan Goals: recovery from copd exacerbation Health Concerns: copd with chronic lung disease Plan of Treatment: use inhaler as recommended use oxygen as directed take Prednisone as directed follow up with your Doctor in a week Assessment: see above Discharge Date/Time: 08/27/23 14:04
[2023-08-27 11:02] VITALS: PULSE 84; PULSE 89; PULSE 91; PULSE 96; O2SAT 83; O2SAT 92; O2SAT 95; O2SAT 98
[2023-08-27 11:21] VITALS: BP 149/58; PULSE 88; RESP 18; TEMP 36.9; O2SAT 93
[2023-08-27] MEDS: guaiFENesin DM 100/10/5 ML 5 ML SYRUP PO (12:32)
[2023-08-27 13:43] LABS: Anion Gap 11 (12-20); Blood Urea Nitrogen 14 mg/dL (9-16); Calcium 10.9 mg/dL (8.4-10.2); Carbon Dioxide 27 mmol/L (22-29); Chloride 104 mmol/L (96-108); Creatinine Clr Calc Pharmacy 61.5; Estimated Glomerular Filt Rate > 60; Glucose Random 165 mg/dL (60-115); Magnesium 1.8 mg/dL (1.6-2.6); Potassium 4.2 mmol/L (3.3-5.1); Sodium 138 mmol/L (135-145)
--- NOTE | 2023-08-27 13:50 | MHC.CM.PN ---
PT MEDICALLY CLEARED FOR DC HOME W/SERVICES HOWEVER CM MET W/PT AND DTR PRESENT AND PT IS DECLINING [facility] SERVICES, AFTER DISCUSSION W/PT AND DTR PT STILL DECLINING HOME SERVICES AND CM PROVIDED PT/DTR W/CM CONTACT CARD IN CASE PT CHANGES HER MIND TOMORROW, DTR WILL TRANSPORT PT.
--- NOTE | 2023-08-27 14:58 | MHC.CM.PN ---
IMM 08/27/23, CM MET W/PT WHO REPORTS SHE LIVES W/HER 3 DOGS, IS INDEP AND HER 3 CHILDREN AND GCHILDREN ASSIST W/ANY NEEDS THAT COME UP, PT DOES HAVE A CANE/WALKER AT HOME HOWEVER DOES NOT USE THEM YET, PT HAS NO HOME SERVICES AND DECLINES NEED FOR DC'S ON DC. PT HAS BEEN SET UP W/HOME O2 W/ACTIVITY AND HAS BEEN SET UP W/LINCARE, CM HAS REINFORCED W/PT AND DTR THE NEED TO CALL [facility] SOON PT GETS HOME SO PT'S PORTABLE TANKS CAN BE DELIVERED, PT HAS DISCHARGED W/LOANER TANK FROM RESPIRATORY. PT VERIFIES PCP ON FILE IS CORRECT, PT REPORTS SHE IS FULLY COVID VAXED AND BOOSTED EXCEPT FOR THIS YEARS BOOSTER. PT REPORTS HER DTR LYNNETTE IS HER HCP AND SHE HAS A COPY AT HOME, PT REPORTS IT WAS COMPLETED W/ CLASSIFICATIONS OFFICER CC/CM AND THAT SHE WILL BRING A COPY W/HER TO HER NEXT PCP APPT W/DR CHAPA.
== END 2023-08-27 14:04 | disposition home health service (06) | DRG 190 ==
LOC: HO.ED 03:14 → HO.EDOVER 03:49 → HO.IMC 17:15
PROVIDERS: Emergency Medicine; Admitting Provider Internal Medicine; Emergency Provider Emergency Medicine Emergency Medical Services; PCP Internal Medicine; Visit Provider Internal Medicine
DX: J44.1 Chronic obstructive pulmonary disease with (acute) exacerbation (principal); J96.01 Acute respiratory failure with hypoxia; Z20.822 Contact with and (suspected) exposure to COVID-19; F41.9 Anxiety disorder, unspecified; I10 Essential (primary) hypertension; E78.5 Hyperlipidemia, unspecified; Z79.51 Long term (current) use of inhaled steroids; Z79.899 Other long term (current) drug therapy
CPT/HCPCS: 0241U; 36415; 71045; 80048; 80053; 82803; 83605; 83735; 83880; 84100; 84145; 84484; 85025; 87040; 87651; 93005; 94640; 99222; 99285; J0456; J0696; J1644; J2920; J2930; J3475

== ENCOUNTER → 2023-08-26 00:37 | Outpatient (BNV) | payer MEDICARE, SELFPAY | PROVIDERS: Admitting Provider Internal Medicine; Emergency Provider Emergency Medicine Emergency Medical Services; PCP Internal Medicine; Visit Provider Internal Medicine | DX: R06.02 Shortness of breath (principal) | CPT/HCPCS: 93010 ==

== ENCOUNTER → 2023-08-26 03:43 | Outpatient (BNV) | payer MEDICARE, SELFPAY | PROVIDERS: Admitting Provider Internal Medicine; Emergency Provider Emergency Medicine Emergency Medical Services; PCP Internal Medicine; Visit Provider Internal Medicine | DX: J44.1 Chronic obstructive pulmonary disease with (acute) exacerbation (principal); E78.5 Hyperlipidemia, unspecified; F41.9 Anxiety disorder, unspecified | CPT/HCPCS: 99223; 99238 ==

== ENCOUNTER 2023-09-04 11:55 | Outpatient (AMB) | payer MEDICARE, SELFPAY ==
[2023-09-04 11:57] VITALS: BP 138/62; PULSE 64; O2SAT 93; BMI 19.6
--- NOTE | 2023-09-04 11:57 | MHC.PC.OV ---
Vital Signs 09/04/23 11:57 Height 5 ft 4 in Weight 51.732 kg BMI 19.6 BP 138/62 Blood Pressure Location Rt brachial Position Sitting Pulse 64 Pulse Source Pulse Oximeter Temp Source Skin Pulse Oximetry (%) 93 Oxygen Delivery Method Room Air Intake Visit Reasons: [facility] Acute Bronchitis Intake Note: Patient is here for hospital discharge follow up. Patient was discharged from [facility] on [date]. 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 Allergies Sulfa (Sulfonamide Antibiotics) Allergy (Intermediate, Verified 09/04/23 11:57) nausea, vomiting Medication List - Last Reconciled 09/04/23 by MARQUES Guan albuterol sulfate 90 mcg/actuation (ProAir RespiClick) 2 inhalations inhalation Q4-6H PRN amlodipine 5 mg PO DAILY atorvastatin 20 mg PO Q48H cholecalciferol (vitamin D3) 50 mcg PO DAILY dextromethorphan-guaifenesin 60-1,200 mg ER 1 tab PO Q12H fexofenadine 180 mg PO DAILY Flovent HFA 220 mcg/actuation (fluticasone propionate) 2 puffs PO BID NS fluticasone propionate 220 mcg/actuation 2 puffs inhalation BID folic acid 1 mg PO DAILY ibuprofen 800 mg PO Q8H PRN 30 days lorazepam 0.5 mg PO BEDTIME losartan 25 mg PO DAILY 90 days omeprazole 20 mg PO DAILY tiotropium bromide 2.5 mcg/actuation (Spiriva Respimat) 2 puffs inhalation DAILY qnvzhkkg-ykkd-nmgqy-oreg-capry 100 mg-150 mg- 50 mg-150 mg 1 cap PO 3XW vitamin B complex (B Complex-Vitamin B12 tablet) 1 tab PO DAILY Tobacco use date assessed: 09/04/23 Fall risk assessment: No Falls in past year Last assessed Fall Risk: 09/04/23 HPI HPI Comments History of Present Illness Details 78-year-old female with history of severe COPD, hyperlipidemia, hypertension, anxiety presents to the office today accompanied by her granddaughter, Fatimah, who assist with her care and ADLs, for hospital discharge follow-up. She was admitted to [facility] from 08/26-08/27 due to acute exacerbation of COPD with acute hypoxemic respiratory failure. The patient was treated with IV steroids, scheduled DuoNebs with rapid recovery. She was evaluated by respiratory therapy for home oxygen evaluation and was recommended for home oxygen as needed to maintain oximetry between 98-92%. Advised to continue Spiriva, Flovent on discharge with albuterol use as needed. On admission, potassium was slightly low at 3.1, no other electrolyte abnormalities. She states while in the hospital, chronic myalgias resolved but have since recurred over the last few days. She does take rosuvastatin which was changed to atorvastatin due to formulary issues while in the hospital. We discussed that it is possisble the myalgias were related to statin use given symptoms resolved off of the crestor, however also discussed that it could have also been due to the solumedrol/prednisone she was taking. She would like to trial changing crestor to lipitor to see if myalgias resolve. She reports wheezing has resolved. She has chronic SCOTT related to her severe COPD, but denies any acute worsening. She has developed productive cough primarily at night. But no associated wheezing or increase in albuterol use. She states she did require use of home O2 on two occasions after discharge but had been maintaining oximetry 93-4% on room air at rest and 92% with ambulation. Follows with Dr. Rehman in pulmonology. [facility] Medical History Chronic lung disease Skin lesion Dyslipidemia Cough due to DAISY inhibitor Neck pain GERD (gastroesophageal reflux disease) Aortic regurgitation Right hand pain Leg edema COPD (chronic obstructive pulmonary disease) Allergic rhinitis Anxiety Hypertension Surgical History Carpal tunnel syndrome, right History of bilateral cataract extraction History of partial hysterectomy Family History Father Medical history unknown Mother Medical history unknown Social History Household Members: None Housing: House Do you presently have visiting nurse or other home services: No Alcohol intake: current Alcohol intake frequency: holidays/special occasions only Alcohol type: other Patient Tobacco Use Status: Former Tobacco user Tobacco use type: Cigarette e-Cigarette/Vaping Use: Never Used Second Hand Smoke Exposure: No Advance Directives Date on File: 08/25/20 service: No Current occupational status: retired Cognitive needs: No Hearing needs: No Vision needs: No Questionnaire Thrive Questionnaire Date Thrive assessed: 11/21/22 AUDIT C Alcohol Use Questionnaire (AUDIT-C) 1. How often do you have a drink containing alcohol?: 2-3 times a week 2. How many drinks containing alcohol do you have on a typical day when you are drinking?: 1 or 2 3. How often do you have six or more drinks on one occasion?: Never Total Score: 3 Score Reviewed/Action Taken: Yes CHRISTIAN-7 AMB Questionnaire CHRISTIAN-7 Date CHRISTIAN - 7 assessed: 11/21/22 Source: Developed by Drs. Mick Kovacs, Yasmeen Rey, Louie Warren and colleagues, with an educational louis from [employer]. Review of Systems Const All systems reviewed & are unremarkable except as noted in HPI and below Physical exam (Primary Care) Vital Signs: Last Vital Signs Pulse 64 09/04/23 11:57 BP 138/62 09/04/23 11:57 Pulse Ox 93 09/04/23 11:57 Oxygen Delivery Method Room Air 09/04/23 11:57 BMI result Body Mass Index 19.6 Tobacco/Smoking Status: Tobacco use Status Tobacco use date assessed 09/04/23 09/04/23 12:04 Patient Tobacco Use Status Former Tobacco user 09/04/23 12:04 Tobacco use type Cigarette 09/04/23 12:04 e-Cigarette/Vaping Use Never Used 09/04/23 12:04 Thrive Assessment: Date of Thrive Assessment Date Thrive assessed 11/21/22 09/04/23 12:04 Const Other: Constitutional - Awake and Alert, No apparent distress Eyes - PERRLA, EOMI Cardiovascular - S1S2, RRR, No edema Respiratory - Normal lung expansion, Normal respiratory effort, No respiratory distress, CTA bilaterally Extremities - no calf tenderness bilaterally, no swelling Skin - Warm/Dry Neurological - Alert & oriented x3 Psychological - Appropriate affect Results Reviewed Results Reviewed: cbc, bmp, discharge summary Assessment and Plan Assessment & Plan (1) COPD (chronic obstructive pulmonary disease): Comment: COPD is severe, but remains stable, well controlled , on current regimen, TX: FLOVENT-220 2 PUFFS BID SPIRIVA RESP.2.5 MG 2 INH DAILY PROAIR JUST PRN Code(s): J44.9 - Chronic obstructive pulmonary disease, unspecified Qualifiers: COPD type: unspecified COPD Qualified Code(s): J44.9 - Chronic obstructive pulmonary disease, unspecified Plan: No acute exacerbation. Has productive cough at bedtime. Will trial fexofenadine nightly. Can use robitussin DM prn. Advised against regular nyquil use unless experiencing flu like symptoms. Continue spiriva, flovent for maintenance and use albuterol inhaler as needed for SOB/wheezing. Follow up with Dr. Rehman as scheduled (2) Muscle cramps: Code(s): R25.2 - Cramp and spasm Plan: Possibly related to crestor use as symptoms disappeared while admitted and on atorvastatin. However, patient was also being treated with prednisone which could have resolved to myalgias due to anti-inflammatory properties. Will trial patient on atorvastatin 20mg daily, discontinue crestor. Will also check for renal function, electrolyte levels including magnesium and vitamin d level. Orders: Orders Basic Metabolic Panel 09/05/23 R25.2 - Cramp and spasm Vitamin D 1,25 dihydroxy 09/05/23 E55.9 - Vitamin D deficiency, unspecified, R25.2 - Cramp and spasm Magnesium 09/05/23 E55.9 - Vitamin D deficiency, unspecified, R25.2 - Cramp and spasm Medications: New fexofenadine 180 mg PO DAILY 90 tabs 0RF dextromethorphan-guaifenesin 60-1,200 mg ER 1 tab PO Q12H 60 tabs 0RF atorvastatin 20 mg PO Q48H 30 tabs 0RF Refilled ibuprofen 800 mg PO Q8H 30 days PRN 30 tabs 0RF pain Coding Level of Care Code Tele Est Pt Level 4 (67297) Diagnoses Chronic obstructive pulmonary disease, unspecified COPD type J44.9 COPD type: unspecified COPD Muscle cramps R25.2 Time Spent (min) 35
== END 2023-09-04 12:43 | disposition home or self-care (01) ==
PROVIDERS: PCP Internal Medicine; Visit Provider Physician Assistant
DX: J44.9 Chronic obstructive pulmonary disease, unspecified (principal); R25.2 Cramp and spasm
CPT/HCPCS: 99214

== ENCOUNTER 2023-09-05 09:04 | Outpatient (REF) | payer MEDICARE, SELFPAY ==
[2023-09-05 10:43] LABS: Anion Gap 10 (12-20); Blood Urea Nitrogen 12 mg/dL (9-16); Calcium 9.8 mg/dL (8.4-10.2); Carbon Dioxide 28 mmol/L (22-29); Chloride 104 mmol/L (96-108); Estimated Glomerular Filt Rate > 60; Glucose Random 93 mg/dL (60-115); Magnesium 1.6 mg/dL (1.6-2.6); Potassium 4.5 mmol/L (3.3-5.1); Sodium 137 mmol/L (135-145)
[2023-09-09 18:47] LABS: VITAMIN D (1,25 OH) D3 34 pg/mL; Vit D (1,25-Dihydroxy) Total 34 pg/mL (18-72); Vitamin D (1,25 OH) D2 <8 pg/mL
== END 2023-09-05 09:05 | disposition home or self-care (01) ==
LOC: HO.LAB 09:04
PROVIDERS: PCP Physician Assistant; Visit Provider Physician Assistant
DX: R25.2 Cramp and spasm (principal); E55.9 Vitamin D deficiency, unspecified
CPT/HCPCS: 36415; 80048; 82652; 83735

== ENCOUNTER 2023-10-24 10:27 | Outpatient (AMB) | payer MEDICARE, SELFPAY ==
--- NOTE | 2023-10-24 10:40 | A.OFFVIS_ITS ---
Vital Signs 10/24/23 10:41 Height 5 ft 4 in Weight 123 lb 7.342 oz BMI 21.2 BP 122/52 L Blood Pressure Location Lt brachial Position Sitting Pulse 89 Pulse Source Pulse Oximeter Pulse Oximetry (%) 98 Oxygen Delivery Method Room Air Intake Visit Reasons: S/p hospital admit Intake Note: pt is here for follow up and she is post hospital, using oxygen since end of August, she does use it when needed. She is coughing up dark colored phelgm, full when eating quickly, also feels food is getting stuck, and chest is burning. Took prednisone 50mg x3 days and little help. Radio Host Required: No Allergies Sulfa (Sulfonamide Antibiotics) Allergy (Intermediate, Verified 10/24/23 12:05) nausea, vomiting Medication List - Last Reconciled 10/24/23 by Tamara Rehman MD albuterol sulfate 90 mcg/actuation (ProAir RespiClick) 2 inhalations inhalation Q4-6H PRN amlodipine 5 mg PO DAILY cholecalciferol (vitamin D3) 50 mcg PO DAILY dextromethorphan-guaifenesin 60-1,200 mg ER 1 tab PO Q12H fexofenadine 180 mg PO DAILY fluticasone furoate-vilanterol 200-25 mcg/dose (Breo Ellipta) 1 inh inhalation DAILY 30 days fluticasone propionate 220 mcg/actuation 2 puffs inhalation BID folic acid 1 mg PO DAILY ibuprofen 800 mg PO Q8H PRN 30 days lorazepam 0.5 mg PO BEDTIME losartan 25 mg PO DAILY 90 days prednisone 5 mg PO Q OTHER DAY 28 days tiotropium bromide 2.5 mcg/actuation (Spiriva Respimat) 2 puffs inhalation DAILY sdykkqal-dzzb-fkxqn-oreg-capry 100 mg-150 mg- 50 mg-150 mg 1 cap PO 3XW vitamin B complex (B Complex-Vitamin B12 tablet) 1 tab PO DAILY Do you need a note to return to daycare/school/sports/work: No HPI HPI S/p hospital admit: Details: 78 YEARS OLD FEMALE, WITH LONGSTANDING DIAGNOSIS OF CHRONIC OBSTRUCTIVE PULMONARY DISEASE WHO HAS REMAINED RELATIVELY STABLE OVER THE PAST FEW YEARS. SHE WAS ADMITTED AND TREATED FOR ACUTE EXACERBATION 2 MONTHS AGO, AND AT THE TIME OF DISCHARGE SHE WAS SENT HOME WITH A SHORT COURSE OF PREDNISONE. SHE WAS ALSO SENT HOME WITH O2, STATIONARY CONCENTRATOR WELL A PORTABLE CYLINDER. SHE COMES TODAY FOR FOLLOW-UP ALONG WITH HER DAUGHTER WHO IS SOMEWHAT CONCERNED ABOUT HER CONDITION. LAZARO IS STILL FEELING WEAK AND GETS SHORT OF BREATH EASILY. JUST OVER THE WEEKEND SHE FELT LITTLE BIT MORE CONGESTED AND TOOK PREDNISONE FOR 2 DAYS BORROWED FROM 1 OF HER FAMILY MEMBERS. TODAY SHE WALKED INTO THE OFFICE, MAIN CONCERN IS THAT SHE HAS NOT RECOVERED ENOUGH. AT PRESENT SHE HAS ONLY MINIMAL COUGH, DENIES ANY WHEEZING, BUT JUST GETS SHORT OF BREATH VERY EASILY. SHE RESENTS USING OXYGEN. [facility] Medical History Chronic lung disease Skin lesion Dyslipidemia Cough due to DAISY inhibitor Neck pain GERD (gastroesophageal reflux disease) Aortic regurgitation Right hand pain Leg edema COPD (chronic obstructive pulmonary disease) Allergic rhinitis Anxiety Hypertension Surgical History Carpal tunnel syndrome, right History of bilateral cataract extraction History of partial hysterectomy Family History Father Medical history unknown Mother Medical history unknown Social History Household Members: None Housing: House Do you presently have visiting nurse or other home services: No Alcohol intake: current Alcohol intake frequency: holidays/special occasions only Alcohol type: other Patient Tobacco Use Status: Former Tobacco user Tobacco use type: Cigarette e-Cigarette/Vaping Use: Never Used Second Hand Smoke Exposure: No Advance Directives Date on File: 08/25/20 service: No Current occupational status: retired Cognitive needs: No Hearing needs: No Vision needs: No Review of Systems Const All systems reviewed & are unremarkable except as noted in HPI and below Eyes Reports no additional complaints ENT Reports nasal congestion (Mild intermittent) and Reports neck pain (Mild off and on) Card Denies chest pain, Denies irregular heart rhythm and Denies leg edema Resp Reports as per HPI GI Reports heartburn (GERD symptoms controlled with med) Reports no additional complaints Musc Reports neck pain (Mild off and on) Skin/Breast Reports system reviewed and no additional complaints, except as documented Neuro Reports no additional complaints Psych Reports no additional complaints Physical Exam Vital Signs: Last Vital Signs Pulse 89 10/24/23 10:41 BP 122/52 L 10/24/23 10:41 Pulse Ox 98 10/24/23 10:41 Oxygen Delivery Method Room Air 10/24/23 10:41 BMI result Body Mass Index 21.2 Const General: comfortable, no acute distress, alert and awake Orientation/consciousness: patient oriented x3 HEENT Head: Yes normal to inspection General nose exam: No nasal polyps present, No nasal discharge present and Other nasal findings present (Mild nasal congestion is present) Face and sinus: Yes sinuses nontender Mouth: oropharynx normal Throat: Yes posterior oropharynx normal Eyes General: appearance normal, both eyes and all related structures Neck Neck: Yes normal visual inspection, Yes no lymphadenopathy, Yes trachea midline and Yes no JVD Thyroid: Thyroid normal Chest Chest palpation & inspection: normal inspection of the chest, normal palpation of entire chest wall and no tenderness Resp Other: Percussion note hyper-resonant, breath sounds are equal on both sides with prolonged expiratory phase. No wheezes rhonchi or crepitations are heard. Cardio Palpation: normal PMI Rate: regular rate Rhythm: regular rhythm Heart sounds: no gallops and no murmurs GI Palpation (GI): Soft to palpation, nontender, No hepatosplenomegaly present and no masses Auscultation: normal bowel sounds Back/Spine/Pelvis Thoracic/Lumbar Spine: thoracic and lumbar spine normal to inspection Skin General skin exam: no rashes or lesions noted Neuro General: patient oriented x3 and no focal motor deficits Cranial nerves: Yes CN's II-XII intact bilaterally Extrem General: Yes normal to inspection, Yes no clubbing, cyanosis or edema and Yes no calf tenderness Psych Appearance: grossly normal and well kempt Speech and movement: Normal speech and movement present Results Reviewed Results Reviewed: HOSPITAL COURSE WAS REVIEWED Assessment & Plan Assessment & Plan (1) COPD (chronic obstructive pulmonary disease): Comment: COPD is severe, had remained stable over the past few years. Treated for an acute exacerbation in August 2023. Continues to have residual weakness and increased shortness of breath on exertion. Code(s): J44.9 - Chronic obstructive pulmonary disease, unspecified Category: Medical Qualifiers: COPD type: unspecified COPD Qualified Code(s): J44.9 - Chronic obstructive pulmonary disease, unspecified Plan: WILL DC . FLOVENT-220 2 PUFFS BID AND CHANGED TO BREO 200-251 INHALATION DAILY OR AN EQUIVALENT AGENT PER INSURANCE COVERAGE. CONTINUE SPIRIVA RESP.2.5 MG 2 INH DAILY PROAIR JUST PRN PREDNISONE 5 MG ON ALTERNATE DAYS A LOW DOES MAINTENANCE REGIMEN . COMPLETE PULMONARY FUNCTION TEST IS ORDERED. AFTER THAT PLAN IS TO REFER HER TO PULMONARY REHAB PROGRAM. ADVISED TO USE O2 2 L/MINUTE P.R.N. IF SHE FEELS DISTRESSED. (2) Allergic rhinitis: Comment: Allergic rhinitis is mild, intermittent and controlled . Code(s): J30.9 - Allergic rhinitis, unspecified Category: Medical Plan: Montelukast 10 mg daily plus Flonase which she uses only p.r.n.. Orders: Orders PFT pulmonary function test Today J44.9 - Chronic obstructive pulmonary disease, unspecified Medications: New fluticasone furoate-vilanterol 200-25 mcg/dose (Breo Ellipta) 1 inh inhalation DAILY 30 days 60 ea 2RF copd prednisone 5 mg PO Q OTHER DAY 28 days 14 tabs 2RF copd Coding Level of Care Code Est Pt Level 4 (95715) Diagnoses Chronic obstructive pulmonary disease, unspecified COPD type J44.9 COPD type: unspecified COPD Allergic rhinitis J30.9
[2023-10-24 10:41] VITALS: BP 122/52; PULSE 89; O2SAT 98; BMI 21.2
== END 2023-10-24 11:23 | disposition home or self-care (01) ==
PROVIDERS: PCP Internal Medicine; Visit Provider Internal Medicine
DX: J44.9 Chronic obstructive pulmonary disease, unspecified (principal); J30.9 Allergic rhinitis, unspecified
CPT/HCPCS: 99214

== ENCOUNTER → 2023-10-24 10:27 | Outpatient (BNVA) | payer MEDICARE, SELFPAY | PROVIDERS: PCP Physician Assistant; Visit Provider Internal Medicine | DX: J44.9 Chronic obstructive pulmonary disease, unspecified (principal); J30.9 Allergic rhinitis, unspecified | CPT/HCPCS: 99212 ==

== ENCOUNTER 2023-10-25 13:24 | Outpatient (REF) | payer MEDICARE, SELFPAY ==
[2023-10-25 09:11] VITALS: PULSE 90; RESP 16; O2SAT 97
--- NOTE | 2023-10-25 15:28 | PFT_ITS ---
Indication: COPD Spirometry [FEV1 to FVC 41%; FEV1 0.67 L; FVC 1.62 L. No significant response to bronchodilators noted. Maximum voluntary ventilation 28% predicted] Lung Volumes [The patient could not perform the maneuvers no data was collected] Diffusion Capacity [DLCO 36% predicted] Comparisons none Interpretation [[There is a for ventilatory defect consistent with severe COPD. No significant response to bronchodilators. Significant decrease in the maximum voluntary ventilation secondary to likely deconditioning. Can not rule out neuromuscular disease. Lung volumes could not be completed by the patient. The patient does have a severe diffusion impairment. Clinical correlation warranted]] MTDD
== END 2023-10-25 13:25 | disposition home or self-care (01) ==
LOC: HO.RESP 13:24
PROVIDERS: PCP Internal Medicine; Visit Provider Internal Medicine
DX: J44.9 Chronic obstructive pulmonary disease, unspecified (principal)
CPT/HCPCS: 94010; 94640; 94727; 94729

== ENCOUNTER → 2023-10-25 15:28 | Outpatient (BNV) | payer MEDICARE, SELFPAY | PROVIDERS: PCP Internal Medicine; Visit Provider Hospitalist | DX: J44.9 Chronic obstructive pulmonary disease, unspecified (principal) | CPT/HCPCS: 94060; 94727; 94729 ==

== ENCOUNTER 2023-11-06 06:07 | Inpatient (IN) | payer MEDICARE, SELFPAY ==
[2023-11-06] VITALS (24 sets, daily range): BP systolic 122–159; BP diastolic 58–90; PULSE 81–127; RESP 16–32; TEMP 36.4–37.1; O2SAT 89–99; BMI 21.6; BMI 22.0
--- NOTE | ~2023-11-06 | XR_ITS ---
EXAMINATION: XR CHEST CLINICAL INFORMATION: Follow-up congestive heart failure. COMPARISON: Prior chest radiographs, most recently 11/06/2023; CT abdomen dated 10/05/2022. TECHNIQUE: Frontal view of the chest was obtained. FINDINGS: The heart, great vessels, pulmonary vasculature and mediastinum are stable. There is atherosclerotic calcification of the aortic knob. There is pulmonary vascular congestion, without overt pulmonary edema. No infiltrate, effusion or pneumothorax is seen. Minimal bilateral pleural effusions are suspected, with slight blunting of the costophrenic angles. There is no acute osseous abnormality. There is an old, healed fracture of the proximal left humerus. A 9 mm round sclerotic opacity is seen overlapping the right humeral head, possibly external to the patient. A similar 9 mm round opacity projects over the right cervical region, again possibly external to the patient. Linear tubing overlaps the upper right chest. XR/XR chest 1V IMPRESSION: 1. There is pulmonary vascular congestion, without overt pulmonary edema. 2. Very small bilateral pleural effusions are suspected. 3. There are round and linear opacities overlapping the right thorax, for which clinical correlation is recommended.
--- NOTE | ~2023-11-06 | XR_ITS ---
EXAMINATION: XR CHEST CLINICAL INFORMATION: Shortness of breath COMPARISON: Previous chest x-ray most recent August 2023 TECHNIQUE: Frontal view of the chest was obtained. FINDINGS: Cardiac silhouette is slightly enlarged but stable. There are increased central bronchovascular markings. There are more peripheral coarse lung markings. There is subsegmental atelectasis at the left lung base. There may be small bilateral pleural effusions. No pneumothorax. Old trauma to the left humeral neck. XR/XR chest 1V IMPRESSION: Increased central bronchovascular markings and coarse lung markings. Differential would include airways disease and mild pulmonary edema. Clinical correlation recommended.
--- NOTE | 2023-11-06 06:50 | ED_ITS ---
HPI - General Adult General Chief complaint: Upper Respiratory Symptoms Stated complaint: troubles breathing Time Seen by Provider: 11/06/23 06:50 History of Present Illness HPI narrative: The patient is a 78-year-old female with a history of COPD. She has a history of previous hospitalizations for COPD. Her most recent hospitalization was 2- 1/2 months ago in August 2023. At the time of discharge from the hospital on August 27 she was discharged home on home oxygen. This was the 1st time she has been on home oxygen. She has continued on home oxygen since then but says that she has never really gotten that much better since returning home in August. However over the last 5 days she is gotten considerably worse with increasing shortness of breath. She has also had a mild cough with some yellow sputum production. She does not think she has had a fever. She has also had some ankle swelling over the last few days. This is a new development. No specific unilateral calf pain. No history of DVT or PEs. No significant chest pain at the moment. No abdominal pain, nausea, vomiting. Related Data Home Medications ?Medication ?Instructions ?Recorded ?Confirmed cholecalciferol (vitamin D3) 50 50 mcg PO DAILY 08/09/21 10/24/23 mcg (2,000 unit) capsule folic acid 1 mg tablet 1 mg PO DAILY 08/09/21 10/24/23 vitamin B complex (B 1 tab PO DAILY 08/09/21 10/24/23 Complex-Vitamin B12 tablet) turmeric 100 mg-carol 150 1 cap PO 3XW 06/11/23 10/24/23 mg-olive 50 mg-oreg 150 mg-capryl capsule tiotropium bromide 2.5 2 puff inhalation DAILY 08/26/23 11/06/23 mcg/actuation mist for inhalation (Spiriva Respimat) prednisone 5 mg tablet 5 mg PO Q48H copd 11/06/23 11/06/23 rosuvastatin 5 mg tablet 5 mg PO DAILY 11/06/23 11/06/23 Previous Rx's ?Medication ?Instructions ?Recorded albuterol sulfate 90 mcg/actuation 2 inh inhalation Q4-6H PRN 04/26/23 breath activated powder inhaler shortness of breath or wheezing #1 (ProAir RespiClick) ea fexofenadine 180 mg tablet 180 mg PO DAILY #90 tabs 09/04/23 amlodipine 5 mg tablet 5 mg PO DAILY #90 tabs 09/13/23 losartan 25 mg tablet 25 mg PO DAILY hypertension 90 09/13/23 days #90 tabs fluticasone furoate 200 1 inh inhalation DAILY copd 30 10/24/23 mcg-vilanterol 25 mcg/dose days #60 ea inhalation powder (Breo Ellipta) ibuprofen 800 mg tablet 800 mg PO Q8H PRN pain 30 days #30 11/02/23 tabs lorazepam 0.5 mg tablet 0.5 mg PO Q8H PRN anxiety 30 days 11/02/23 #90 tabs Allergies Allergy/AdvReac Type Severity Reaction Status Date / Time Sulfa (Sulfonamide Allergy Intermediate nausea, Verified 11/06/23 06:20 Antibiotics) vomiting Review of Systems 2 Review of Systems: Yes Unobtainable due to mental status [facility] Past Medical History Medical History Chronic lung disease Skin lesion Dyslipidemia Cough due to DAISY inhibitor Neck pain GERD (gastroesophageal reflux disease) Aortic regurgitation Right hand pain Leg edema COPD (chronic obstructive pulmonary disease) Allergic rhinitis Anxiety Hypertension Surgical History Carpal tunnel syndrome, right History of bilateral cataract extraction History of partial hysterectomy Family History Family History Father Medical history unknown Mother Medical history unknown Social History Social History Household Members: None Housing: House Do you presently have visiting nurse or other home services: No Alcohol intake: current Alcohol intake frequency: holidays/special occasions only Alcohol type: other Patient Tobacco Use Status: Former Tobacco user Tobacco use type: Cigarette e-Cigarette/Vaping Use: Never Used Second Hand Smoke Exposure: No Advance Directives: No Advance Directives Information Provided: Yes Advance Directives Date on File: 08/25/20 Do you have a plan to hurt others: No Plan service: No Current occupational status: retired Cognitive needs: No Hearing needs: No Vision needs: No Physical Exam ED Vital Signs: Vital Signs - 24 hr 11/06/23 06:18 11/06/23 07:19 11/06/23 07:53 Temperature 97.5 F Pulse Rate 115 H 120 H 120 H Respiratory Rate 28 H 24 H Blood Pressure 150/64 H Pulse Oximetry 95 Oxygen Delivery Method Nasal Cannula Oxygen Flow Rate Fraction of Inspired Oxygen 11/06/23 08:00 11/06/23 08:03 11/06/23 08:15 Temperature Pulse Rate 107 H Respiratory Rate 30 H 28 H Blood Pressure 149/69 H 159/90 H Pulse Oximetry 91 L Oxygen Delivery Method High Flow Nasal Cannula Oxygen Flow Rate 45 Fraction of Inspired Oxygen 50 11/06/23 08:26 11/06/23 08:31 11/06/23 10:05 Temperature Pulse Rate 118 H 127 H Respiratory Rate 27 H 25 H Blood Pressure 153/88 H 153/88 H Pulse Oximetry 93 Oxygen Delivery Method BiPAP Oxygen Flow Rate Fraction of Inspired Oxygen 40 11/06/23 10:07 11/06/23 11:22 11/06/23 11:28 Temperature 97.5 F Pulse Rate 107 H Respiratory Rate 24 H 19 24 H Blood Pressure 145/77 H Pulse Oximetry 92 Oxygen Delivery Method High Flow Nasal Cannula Oxygen Flow Rate 45 Fraction of Inspired Oxygen 50 11/06/23 11:40 11/06/23 13:03 11/06/23 13:17 Temperature Pulse Rate 105 H 94 Respiratory Rate 27 H 28 H Blood Pressure 137/74 Pulse Oximetry 92 Oxygen Delivery Method BiPAP Oxygen Flow Rate Fraction of Inspired Oxygen 40 11/06/23 14:12 Temperature Pulse Rate Respiratory Rate 32 H Blood Pressure Pulse Oximetry Oxygen Delivery Method Oxygen Flow Rate Fraction of Inspired Oxygen BMI result Body Mass Index 21.6 Const Other: The patient is a frail, chronically ill-appearing 78-year-old who was awake and alert and looks mildly short of breath at rest. HENMT Other: Face is symmetrical. Mucous membranes moist. Airway clear. Eyes Other: Pupils are round equal, conjunctivae clear Neck Neck: Yes no JVD Resp Other: The patient is tachypneic with some increased work of breathing. She has inspiratory and expiratory wheezes as well as crackles. Cardio Other: The patient is tachycardic with a mildly irregular heart rhythm. No definite murmur. GI Other: Abdomen is soft and nontender Skin Other: Skin is pale and dry Neuro Other: The patient is awake and alert. She looks fatigued. Face is symmetrical. Speech is clear. She moves her extremities symmetrically. No obvious focal neurological deficit. Extrem Other: Trace lower extremity edema. There is an abrasion on the patient's right marques. Medications Administered Generic Name Dose Route Start Last Admin Trade Name Freq PRN Reason Stop Dose Admin Digoxin 0.25 mg 11/06/23 14:30 11/06/23 15:18 Digoxin 0.5 Mg/2 Ml Ampul IVPUSH 11/07/23 02:31 0.25 mg Q6H MARIA D Administration Discontinued Medications Generic Name Dose Route Start Last Admin Trade Name Freq PRN Reason Stop Dose Admin Aspirin 324 mg 11/06/23 12:13 11/06/23 12:55 Aspirin 81 Mg Tab.Chew PO 11/06/23 12:14 324 mg ONCE ONE Administration Albuterol Sulfate 7.5 mg/ 0 mg 11/06/23 07:11 11/06/23 07:15 Albuterol/Ipratropium 3 ml INHALE 11/06/23 07:12 2.5 each ONCE ONE Administration Diltiazem HCl 15 mg 11/06/23 07:34 11/06/23 07:53 Diltiazem Hcl 50 Mg/10 Ml Vial IVPUSH 11/06/23 07:35 15 mg STAT STA Administration Diltiazem HCl 60 mg 11/06/23 09:01 11/06/23 11:40 Diltiazem Hcl 60 Mg Tablet PO 11/06/23 09:02 60 mg ONCE ONE Administration Protocol Diltiazem HCl 15 mg 11/06/23 09:04 11/06/23 10:05 Diltiazem Hcl 50 Mg/10 Ml Vial IVPUSH 11/06/23 09:05 15 mg STAT STA Administration Enoxaparin Sodium 60 mg 11/06/23 11:43 11/06/23 15:17 Enoxaparin Sodium 60 Mg/0.6 Ml Syringe 1 mg/kg (60 mg) 11/06/23 11:44 60 mg SUBCUT Administration ONCE ONE Enoxaparin Sodium 60 mg 11/06/23 14:30 11/06/23 15:54 Enoxaparin Sodium 40 Mg/0.4 Ml Syringe SUBCUT Not Given Q12H MARIA D Furosemide 40 mg 11/06/23 08:04 11/06/23 08:15 Furosemide 40 Mg/4 Ml Vial IVPUSH 11/06/23 08:05 40 mg STAT STA Administration Protocol Lorazepam 0.5 mg 11/06/23 07:29 11/06/23 07:35 Lorazepam 2 Mg/Ml Vial IVPUSH 11/06/23 07:30 0.5 mg ONCE STA Administration Methylprednisolone Sodium Succinate 60 mg 11/06/23 06:55 11/06/23 07:14 Methylprednisolone Sod Succ 125 Mg/2 Ml Vial IVPUSH 11/06/23 06:56 60 mg ONCE ONE Administration Nitroglycerin 1 inch 11/06/23 07:53 11/06/23 08:00 Nitroglycerin 2 % Oint 1 Gm Packet TRANSDERMA 11/06/23 07:54 1 inch ONCE ONE Administration Nitroglycerin 1 inch 11/06/23 11:55 11/06/23 13:02 Nitroglycerin 2 % Oint 1 Gm Packet TRANSDERMA 11/06/23 11:56 1 inch ONCE ONE Administration Ondansetron HCl 4 mg 11/06/23 08:22 11/06/23 08:26 Ondansetron Hcl 4 Mg/2 Ml Vial IVPUSH 11/06/23 08:23 4 mg ONCE ONE Administration Medical Decision Making Medical Decision Making [facility] Narrative: The patient is a 78-year-old woman with a history of COPD normally on home oxygen as of 2 months ago who presents with 5 days of worsening dyspnea. She reports a mild cough and mild sputum production but no fevers. She also reports some new mild lower extremity edema. On exam she has an irregular heart rate and is in atrial fibrillation with a rapid ventricular response. This is a new condition for her. She has no history of atrial fibrillation. On her lung exam she had wheezes and crackles and her chest x-ray suggested possible pulmonary edema. The patient had initially been given a large dose of albuterol. The patient found wearing the mask difficult because of a sense of claustrophobia. Once her x-ray suggested that congestive heart failure may be as much more of a process at work as COPD she was also given nitro paste and was placed on high- flow nasal oxygen because of perceived apparent dyspnea. She looked much more short of breath than her VBG would have suggested. Because she complained of claustrophobia she was given 0.5 mg of lorazepam and she was switched to BiPAP for awhile. She tolerated the BiPAP with difficulty and seemed to be somewhat better on the BiPAP. In the meantime her BNP has come back at 686, a rise from her BNP in August when it was 213 when she was hospitalized for COPD. The patient was also given diltiazem for her atrial fibrillation with rapid ventricular response. She was also given furosemide because of CHF and ultimately a dose of enoxaparin because of atrial fibrillation. She was also given a 2nd inch of nitro paste. The patient is troponins ibeth from 40-160. I consulted Dr. Corral. We agreed this was likely a consequence of the stress of her atrial fibrillation and her shortness of breath rather than a primary acute coronary syndrome. After a while on BiPAP the patient was taken off BiPAP and placed on high-flow nasal oxygen again but was then placed back on BiPAP because she felt more short of breath. I spoke to Dr. Silva of the intensive care unit who came to see the patient and recommended the patient be on CPAP on the hospitalist service. Lab Data 11/06/23 07:46 11/06/23 07:36 Labs: Lab Results 11/06/23 11/06/23 11/06/23 Range/Units 07:13 07:22 07:36 WBC (4.8-10.8) X10*3/uL RBC (4.20-5.50) X10*6/uL Hgb (12.0-16.0) g/dl Hct (37.0-47.0) % MCV (80.0-98.0) fL MCH (27.0-33.0) pg MCHC (31.0-35.0) g/dl RDW (11.0-16.0) % Plt Count (160-400) X10*3/uL MPV (9.4-12.3) fL Immature Gran % (Auto) (0.0-0.4) % Neut % (Auto) (45-73) % Lymph % (Auto) (20-40) % [place] % (Auto) (2-11) % Eos % (Auto) (0-4) % Baso % (Auto) (0-2) % Lymph # (Auto) (1.2-4.9) X10*3/uL [place] # (Auto) (0.1-1.2) X10*3/uL Eos # (Auto) (0.0-0.4) X10*3/uL Baso # (Auto) (0.0-0.2) X10*3/uL Abs Immat Gran (auto) (0.00-0.03) X10*3/uL Absolute Neuts (auto) (2.0-8.3) x10*3/uL Absolute Nucleated RBC (0.0-0.012) X10*3/uL Nucleated RBC % (auto) (0.0-0.2) /100WBC PT (11.1-13.3) SEC INR (0.9-1.1) VBG pH 7.35 (7.32-7.43) VBG pCO2 43 mmHg VBG pO2 127 mmHg VBG HCO3 24 (22-26) mmol/L VBG O2 Saturation 99.0 % VBG Base Excess -0.8 mmol/L Sodium 135 (135-145) mmol/L Potassium 3.8 (3.3-5.1) mmol/L Chloride 102 (96-108) mmol/L Carbon Dioxide 22 (22-29) mmol/L Anion Gap 15 (12-20) BUN 10 (9-16) mg/dL Creatinine 0.69 (0.5-1.4) mg/dL Estim Creat Clear Calc 57.0 Estimated GFR > 60 Random Glucose 180 H (60-115) mg/dL Lactic Acid 1.5 (0.5-2.0) mmol/L Calcium 9.6 (8.4-10.2) mg/dL Magnesium 1.6 (1.6-2.6) mg/dL Total Bilirubin 0.8 (0.0-1.0) mg/dL Direct Bilirubin 0.4 (0.0-0.5) mg/dL AST 30 (5-31) U/L ALT 31 (0-31) U/L Alkaline Phosphatase 129 H (39-117) U/L Troponin I High Sens 43.6 H D (<3.5-17.0) ng/L C-Reactive Protein 0.55 H (< or = 0.50) mg/dL B-Natriuretic Peptide 686 H (<100) pg/mL Total Protein 7.2 (6.5-8.0) g/dL Albumin 4.3 (3.5-5.0) g/dL TSH 1.54 (0.32-4.0) uIU/mL Influenza Type A (PCR) (Negative) Influenza Type B (PCR) (Negative) RSV RNA Qual (PCR) (Negative) SARS-CoV-2 RNA (RT-PCR) (Negative) 11/06/23 11/06/23 Range/Units 07:46 10:19 WBC 16.9 H (4.8-10.8) X10*3/uL RBC 3.91 L (4.20-5.50) X10*6/uL Hgb 12.7 (12.0-16.0) g/dl Hct 38.3 (37.0-47.0) % MCV 98.0 (80.0-98.0) fL MCH 32.5 (27.0-33.0) pg MCHC 33.2 (31.0-35.0) g/dl RDW 14.0 (11.0-16.0) % Plt Count 309 D (160-400) X10*3/uL MPV 9.3 L (9.4-12.3) fL Immature Gran % (Auto) 0.9 H (0.0-0.4) % Neut % (Auto) 81.8 H (45-73) % Lymph % (Auto) 9.1 L (20-40) % [place] % (Auto) 7.3 (2-11) % Eos % (Auto) 0.4 (0-4) % Baso % (Auto) 0.5 (0-2) % Lymph # (Auto) 1.5 (1.2-4.9) X10*3/uL [place] # (Auto) 1.2 (0.1-1.2) X10*3/uL Eos # (Auto) 0.1 (0.0-0.4) X10*3/uL Baso # (Auto) 0.1 (0.0-0.2) X10*3/uL Abs Immat Gran (auto) 0.15 H (0.00-0.03) X10*3/uL Absolute Neuts (auto) 13.8 H (2.0-8.3) x10*3/uL Absolute Nucleated RBC 0.000 (0.0-0.012) X10*3/uL Nucleated RBC % (auto) 0.0 (0.0-0.2) /100WBC PT 11.2 (11.1-13.3) SEC INR 0.9 (0.9-1.1) VBG pH (7.32-7.43) VBG pCO2 mmHg VBG pO2 mmHg VBG HCO3 (22-26) mmol/L VBG O2 Saturation % VBG Base Excess mmol/L Sodium (135-145) mmol/L Potassium (3.3-5.1) mmol/L Chloride (96-108) mmol/L Carbon Dioxide (22-29) mmol/L Anion Gap (12-20) BUN (9-16) mg/dL Creatinine (0.5-1.4) mg/dL Estim Creat Clear Calc Estimated GFR Random Glucose (60-115) mg/dL Lactic Acid (0.5-2.0) mmol/L Calcium (8.4-10.2) mg/dL Magnesium (1.6-2.6) mg/dL Total Bilirubin (0.0-1.0) mg/dL Direct Bilirubin (0.0-0.5) mg/dL AST (5-31) U/L ALT (0-31) U/L Alkaline Phosphatase (39-117) U/L Troponin I High Sens 160.9 H* D (<3.5-17.0) ng/L C-Reactive Protein (< or = 0.50) mg/dL B-Natriuretic Peptide (<100) pg/mL Total Protein (6.5-8.0) g/dL Albumin (3.5-5.0) g/dL TSH (0.32-4.0) uIU/mL Influenza Type A (PCR) NEGATIVE (Negative) Influenza Type B (PCR) NEGATIVE (Negative) RSV RNA Qual (PCR) NEGATIVE (Negative) SARS-CoV-2 RNA (RT-PCR) NEGATIVE (Negative) Independent Interpretation I performed an independent interpretation of an: EKG Interpretation: EKG at 07:03 shows atrial fibrillation with a rapid ventricular response rate at 120 beats per minute. No definite acute ischemic changes. Atrial fibrillation seems to be a new finding. Critical Care Time Critical Care Time Critical Care Time: Yes Total Critical Care Time: 70 Attestation: The patient was critically ill with a high probability of imminent or life- threatening deterioration. ?I spent greater than 30 minutes of discontinuous time evaluating the patient, delivering critical care at the bedside, discussing evaluating data with consultants. ?Critical care time does not include time spent performing separately billable procedures or teaching. ?Time spent performing critical care with 70 minutes. Discharge Plan Discharge Clinical Impression: Shortness of breath, Congestive heart failure, Atrial fibrillation with rapid ventricular response, COPD (chronic obstructive pulmonary disease) Patient Disposition: Admitted As Inpatient
--- NOTE | 2023-11-06 06:55 | ECG_ITS ---
Test Reason : dyspnea Blood Pressure : / mmHG Vent. Rate : 120 BPM Atrial Rate : 000 BPM P-R Int : 000 ms QRS Dur : 086 ms QT Int : 286 ms P-R-T Axes : 000 -56 125 degrees QTc Int : 404 ms Atrial fibrillation with rapid ventricular response with premature ventricular or aberrantly conducted complexes Low voltage QRS Left anterior fascicular block Septal infarct , age undetermined Abnormal ECG When compared with ECG of 26-AUG-2023 00:50, Atrial fibrillation has replaced Sinus rhythm Non-specific change in ST segment in Anterior leads Nonspecific T wave abnormality, worse in Anterolateral leads Referred By: Johny Turner Electronically Signed By:Basilio Corral
[2023-11-06] MEDS: methylPREDNISolone Sod Succ 125 MG/2 ML VIAL 60 MG IVPUSH (07:14)
[2023-11-06] MEDS: Albuterol Sulfate 7.5 MG, Albuterol/Iprat 2.5/0.5MG 3 ML 3 ML INHALE (07:15)
[2023-11-06 07:28] LABS: VBG Base Excess -0.8 mmol/L; VBG HCO3 24 mmol/L (22-26); VBG pCO2 43 mmHg; VBG pH 7.35 (7.32-7.43); VBG pO2 127 mmHg
[2023-11-06 07:29] LABS: Venous Blood Gas Refer to POC result
[2023-11-06] MEDS: LORazepam 2 MG/ML VIAL 0.5 MG IVPUSH (07:35)
[2023-11-06 07:36] LABS: Lactic Acid 1.5 mmol/L (0.5-2.0)
[2023-11-06 07:50] LABS: MANUAL DIFF FLAG NO
[2023-11-06 07:53] LABS: Basophils Absolute Auto 0.1 X10*3/uL (0.0-0.2); Basophils Percent Auto 0.5 % (0-2); Eosinophils Absolute Auto 0.1 X10*3/uL (0.0-0.4); Eosinophils Percent Auto 0.4 % (0-4); Hematocrit 38.3 % (37.0-47.0); Hemoglobin 12.7 g/dl (12.0-16.0); Imm Gran Abs Auto 0.15 X10*3/uL (0.00-0.03); Imm Gran Pct Auto 0.9 % (0.0-0.4); Lymphocytes Absolute Auto 1.5 X10*3/uL (1.2-4.9); Lymphocytes Percent Auto 9.1 % (20-40); Mean Corpuscular HGB Conc 33.2 g/dl (31.0-35.0); Mean Corpuscular Hemoglobin 32.5 pg (27.0-33.0); Mean Platelet Volume 9.3 fL (9.4-12.3); Monocytes Absolute Auto 1.2 X10*3/uL (0.1-1.2); Monocytes Percent Auto 7.3 % (2-11); Neutrophils Absolute Auto 13.8 x10*3/uL (2.0-8.3); Neutrophils Percent Auto 81.8 % (45-73); Platelet Count 309 X10*3/uL (160-400); Red Blood Count 3.91 X10*6/uL (4.20-5.50); White Blood Count 16.9 X10*3/uL (4.8-10.8)
[2023-11-06] MEDS: dilTIAZem HCL 50 MG/10 ML VIAL 15 MG IVPUSH ×2 (07:53→10:05)
[2023-11-06 07:59] LABS: INTERNATIONAL NORM RATIO 0.9 (0.9-1.1); Prothrombin Time 11.2 SEC (11.1-13.3)
[2023-11-06] MEDS: Nitroglycerin 2 % Oint 1 GM Packet 1 INCH TRANSDERMA ×2 (08:00→13:02)
[2023-11-06 08:12] LABS: Alanine Aminotransferase 31 U/L (0-31); Albumin Level 4.3 g/dL (3.5-5.0); Alkaline Phosphatase 129 U/L (39-117); Anion Gap 15 (12-20); Aspartate Amino Transferase 30 U/L (5-31); Bilirubin Direct 0.4 mg/dL (0.0-0.5); Bilirubin Total 0.8 mg/dL (0.0-1.0); Blood Urea Nitrogen 10 mg/dL (9-16); C Reactive Protein 0.55 mg/dL (< or = 0.50); Calcium 9.6 mg/dL (8.4-10.2); Carbon Dioxide 22 mmol/L (22-29); Chloride 102 mmol/L (96-108); Estimated Glomerular Filt Rate > 60; Glucose Random 180 mg/dL (60-115); Magnesium 1.6 mg/dL (1.6-2.6); Potassium 3.8 mmol/L (3.3-5.1); Sodium 135 mmol/L (135-145); Total Protein 7.2 g/dL (6.5-8.0)
[2023-11-06] MEDS: Furosemide 40 MG/4 ML VIAL IVPUSH ×2 (08:15→18:41)
[2023-11-06] MEDS: ondansetron HCL 4 MG/2 ML VIAL IVPUSH (08:26)
[2023-11-06 08:28] LABS: Influenza A PCR NEGATIVE (Negative); Influenza B PCR NEGATIVE (Negative); Resp Syncy Virus RNA Qual PCR NEGATIVE (Negative); SARS COV2 PCR INHOUSE NEGATIVE (Negative)
[2023-11-06 08:32] LABS: B Type Natriuretic Peptide 686 pg/mL (<100)
[2023-11-06 08:38] LABS: Troponin-I High Sensitivity 43.6 ng/L (<3.5-17.0)
[2023-11-06 10:06] LABS: Thyroid Stimulating Hormone 1.54 uIU/mL (0.32-4.0)
--- NOTE | 2023-11-06 10:06 | PC.NURSE ---
pt medicated per order float RN
--- NOTE | 2023-11-06 10:26 | PC.NURSE ---
DELAYED NOTE patient presented to the ED with sob since yesterday, patient found to be tripoding in room, dyspneic. patient on her baeline of 2l NC. patient placed on high flow at 0745, with some increase in o2 saturation, patient still visibly uncomfortable, tachypneic. AT 0824 patient was placed on bipap, patient had some increase in oxygen saturation and comfort. patient was able to tolerate for short time due to claustrophobia, patient requested at 1005 to be placed back on high flow oxygen. settings 45 L at 50%, satting comfortably at 93%. Family at bedside, patient appears to be more comfortable, medicated per MAR
[2023-11-06 11:03] LABS: Troponin-I High Sensitivity 160.9 ng/L (<3.5-17.0)
--- NOTE | 2023-11-06 11:07 | ECG_ITS ---
Test Reason : REPEAT Blood Pressure : / mmHG Vent. Rate : 112 BPM Atrial Rate : 000 BPM P-R Int : 000 ms QRS Dur : 082 ms QT Int : 340 ms P-R-T Axes : 000 -77 179 degrees QTc Int : 464 ms Atrial fibrillation with rapid ventricular response Low voltage QRS Left anterior fascicular block Septal infarct (cited on or before 06-NOV-2023) Possible Lateral infarct , age undetermined Abnormal ECG When compared with ECG of 06-NOV-2023 07:03, Borderline criteria for Lateral infarct are now Present Serial changes of Septal infarct Present Lateral T wave inversions Referred By: Johny Turner Electronically Signed By:Basilio Corral
--- NOTE | 2023-11-06 11:31 | PC.NURSE ---
called pharmacy for second time for malena phan.
[2023-11-06] MEDS: dilTIAZem HCL 60 MG TABLET PO (11:40)
--- NOTE | 2023-11-06 11:55 | PC.NURSE ---
patient was incontinent of urine, patient cleaned up, new linens and pads, patient has purewick in place. patient VSS
[2023-11-06] MEDS: Aspirin 81 MG TAB.CHEW 324 MG PO (12:55)
--- NOTE | 2023-11-06 12:59 | PM.CNCAR ---
History of Present Illness History of Present Illness Date of Service: 11/06/23 Requesting physician: Johny Turner Chief complaint: CHF, NSTEMI Narrative: 78-year-old female who has background history of COPD, moderate aortic valve regurgitation, gastroesophageal reflux disease and dyslipidemia who is presenting from home with shortness of breath ongoing for few weeks with worsening over the last few days. She was unable to lay flat and clearly has orthopnea and PND. She also complained of mild edema. No palpitations. She gets off and on chest tightness when she has COPD exacerbation. In the ER she was noticed to be in AFib with RVR. Apparently she received boluses of Cardizem and also received 40 mg IV Lasix because chest x-ray is concern for congestive heart failure. She has sputum production but no fevers or chills. Appetite has been good. No other complaints otherwise. She is denying any previous cardiovascular issues. EKG reviewed which is showing atrial fibrillation with rapid ventricular response with lateral T-wave inversions. High sensitivity troponin levels 43.6 and 160.9. CRP 0.55. BNP 686. Chest x-ray reviewed. [facility] Past Medical History Medical History Chronic lung disease Skin lesion Dyslipidemia Cough due to DAISY inhibitor Neck pain GERD (gastroesophageal reflux disease) Aortic regurgitation Right hand pain Leg edema COPD (chronic obstructive pulmonary disease) Allergic rhinitis Anxiety Hypertension Family History Family History Father Medical history unknown Mother Medical history unknown Surgical History Surgical History Carpal tunnel syndrome, right History of bilateral cataract extraction History of partial hysterectomy Social History Social History Household Members: None Housing: House Do you presently have visiting nurse or other home services: No Alcohol intake: current Alcohol intake frequency: holidays/special occasions only Alcohol type: other Patient Tobacco Use Status: Former Tobacco user Tobacco use type: Cigarette e-Cigarette/Vaping Use: Never Used Second Hand Smoke Exposure: No Advance Directives: No Advance Directives Information Provided: Yes Advance Directives Date on File: 08/25/20 Do you have a plan to hurt others: No Plan service: No Current occupational status: retired Cognitive needs: No Hearing needs: No Vision needs: No Meds Allergies Allergy/AdvReac Type Severity Reaction Status Date / Time Sulfa (Sulfonamide Allergy Intermediate nausea, Verified 11/06/23 06:20 Antibiotics) vomiting Home Medications ?Medication ?Instructions ?Recorded ?Confirmed ?Last Taken ?Type cholecalciferol (vitamin D3) 50 50 mcg PO DAILY 08/09/21 10/24/23 Unknown History mcg (2,000 unit) capsule folic acid 1 mg tablet 1 mg PO DAILY 08/09/21 10/24/23 Unknown History vitamin B complex (B 1 tab PO DAILY 08/09/21 10/24/23 Unknown History Complex-Vitamin B12 tablet) turmeric 100 mg-carol 150 1 cap PO 3XW 06/11/23 10/24/23 Unknown History mg-olive 50 mg-oreg 150 mg-capryl capsule fluticasone propionate 220 2 puff inhalation BID asthma 08/26/23 10/24/23 Unknown History mcg/actuation HFA aerosol inhaler tiotropium bromide 2.5 2 puff inhalation DAILY 08/26/23 10/24/23 Unknown History mcg/actuation mist for inhalation (Spiriva Respimat) Physical Exam Vital Signs: Vital Signs: Last Vital Signs Temp 97.5 F 11/06/23 11:22 Pulse 105 H 11/06/23 11:40 Resp 24 H 11/06/23 11:28 BP 145/77 H 11/06/23 11:22 Pulse Ox 92 11/06/23 11:22 O2 Del Method High Flow Nasal C annula 11/06/23 11:22 O2 Flow Rate 45 11/06/23 11:22 FiO2 50 11/06/23 11:22 Oxygen Flow Rate 2 11/06/23 06:18 BMI result Body Mass Index 21.6 GENERAL APPEARANCE: In acute distress/short of breath, on high-flow oxygen. NECK: no carotid bruit, ++ jugular venous distention. SKIN: no suspicious lesions, warm and dry. HEART: no murmurs, irregular rate and rhythm. Tachycardic. LUNGS: Diminished breath sounds bilaterally with crackles at bases. ABDOMEN: soft, nontender. EXTREMITIES: no edema. Right marques has dressing. PERIPHERAL PULSES: equal. NEUROLOGIC: No gross deficits, AAO X 3 Objective Labs and Meds 11/06/23 07:46 11/06/23 07:36 Lab results: Laboratory Results - last 24 hr 11/06/23 11/06/23 11/06/23 07:13 07:22 07:36 WBC RBC Hgb Hct MCV MCH MCHC RDW Plt Count MPV Immature Gran % (Auto) Neut % (Auto) Lymph % (Auto) [place] % (Auto) Eos % (Auto) Baso % (Auto) Lymph # (Auto) [place] # (Auto) Eos # (Auto) Baso # (Auto) Abs Immat Gran (auto) Absolute Neuts (auto) Absolute Nucleated RBC Nucleated RBC % (auto) PT INR VBG pH 7.35 VBG pCO2 43 VBG pO2 127 VBG HCO3 24 VBG O2 Saturation 99.0 VBG Base Excess -0.8 Sodium 135 Potassium 3.8 Chloride 102 Carbon Dioxide 22 Anion Gap 15 BUN 10 Creatinine 0.69 Estim Creat Clear Calc 57.0 Estimated GFR > 60 Random Glucose 180 H Lactic Acid 1.5 Calcium 9.6 Magnesium 1.6 Total Bilirubin 0.8 Direct Bilirubin 0.4 AST 30 ALT 31 Alkaline Phosphatase 129 H Troponin I High Sens 43.6 H D C-Reactive Protein 0.55 H B-Natriuretic Peptide 686 H Total Protein 7.2 Albumin 4.3 TSH 1.54 Influenza Type A (PCR) Influenza Type B (PCR) RSV RNA Qual (PCR) SARS-CoV-2 RNA (RT-PCR) 11/06/23 11/06/23 07:46 10:19 WBC 16.9 H RBC 3.91 L Hgb 12.7 Hct 38.3 MCV 98.0 MCH 32.5 MCHC 33.2 RDW 14.0 Plt Count 309 D MPV 9.3 L Immature Gran % (Auto) 0.9 H Neut % (Auto) 81.8 H Lymph % (Auto) 9.1 L [place] % (Auto) 7.3 Eos % (Auto) 0.4 Baso % (Auto) 0.5 Lymph # (Auto) 1.5 [place] # (Auto) 1.2 Eos # (Auto) 0.1 Baso # (Auto) 0.1 Abs Immat Gran (auto) 0.15 H Absolute Neuts (auto) 13.8 H Absolute Nucleated RBC 0.000 Nucleated RBC % (auto) 0.0 PT 11.2 INR 0.9 VBG pH VBG pCO2 VBG pO2 VBG HCO3 VBG O2 Saturation VBG Base Excess Sodium Potassium Chloride Carbon Dioxide Anion Gap BUN Creatinine Estim Creat Clear Calc Estimated GFR Random Glucose Lactic Acid Calcium Magnesium Total Bilirubin Direct Bilirubin AST ALT Alkaline Phosphatase Troponin I High Sens 160.9 H* D C-Reactive Protein B-Natriuretic Peptide Total Protein Albumin TSH Influenza Type A (PCR) NEGATIVE Influenza Type B (PCR) NEGATIVE RSV RNA Qual (PCR) NEGATIVE SARS-CoV-2 RNA (RT-PCR) NEGATIVE Imaging Radiologist's impression: Impressions Chest X-Ray 11/06/23 07:22 IMPRESSION: Increased central bronchovascular markings and coarse lung markings. Differential would include airways disease and mild pulmonary edema. Clinical correlation recommended. Assessment and Plan (1) Congestive heart failure: Status: Acute (2) Atrial fibrillation with rapid ventricular response: Status: Acute (3) Elevated troponin: Status: Acute Plan Pleasant 78-year-old female who is presenting with shortness of breath and congestive heart failure. She has background of severe COPD. Chest x-ray is clearly showing bilateral infiltrates concerning for pulmonary edema. She is in AFib with RVR which could be potential cause for congestive heart failure. She also has some lateral T-wave inversions which are new. Recommend anticoagulation for atrial fibrillation and new ECG changes. Would favor starting her on Lovenox subQ for now. Check echocardiogram to assess LV function and aortic regurgitation. She previously had moderate AI. Digoxin load 250 mcg x 3. Avoid diltiazem. Metoprolol 25 mg 3 times a day p.o.. Lasix 40 mg IV b.i.d.. We will follow along with you. Thank you for allowing me to participate in the care of your patient. Please feel free to contact me if you have any questions. Procedures Date of Service Date of Service: 11/06/23
--- NOTE | 2023-11-06 13:05 | PC.NURSE ---
patient placed back on bipap, settings 14/5 at 40%. patient is tolerating mask well, VSS. family at bedside
--- NOTE | 2023-11-06 14:32 | PM.IMHP ---
History of Present Illness Date of Service: 11/06/23 Attending physician on admission: [place] Chief Complaint: dyspnea, orthopnea 78-year-old female with history of severe COPD, GERD, cervical radiculopathy, hypertension, mood disorder, hyperlipidemia presents to the ED earlier today for evaluation of progressively worsening dyspnea both with exertion and at rest, orthopnea, and overall decline. She was hospitalized from 08/26-08/27 for COPD exacerbation and was discharged on 2 L supplemental O2 via nasal cannula. She and her daughters who were at bedside report that since then, patient has not felt well and has generally declined with weakness and worsening dyspnea. She feels over the last 5 days has been considerably worse with increased dyspnea. She has also had a chronic dry cough but denies any fevers, chills, sick contacts, sore throat, congestion. No abdominal pain, nausea, vomiting, urinary symptoms, lightheadedness, palpitations, or chest pain at the time of exam. However while in the ED was reporting episodes of chest pain that were nonradiating and responded well to nitro paste. On arrival, patient tachypneic and was briefly placed on BiPAP for increased work of breathing and hypoxia with volume overload. She was weaned to high-flow oxygen but was still experiencing difficulty breathing especially when speaking and was demonstrating increased work of breathing. She was again placed on BiPAP and weaned to CPAP by health science writer. She was also tachycardic to 127 found to be in new onset atrial fibrillation. Blood pressure stable no hypotension. Hematology studies revealed a white blood cell count of 16.9. Renal function baseline, electrolyte levels normal. BNP 686. CRP 0.55. Initial troponin 43.6, repeat 160.9, repeat 355.3. EKG shows atrial fibrillation with RVR, rate 112 with T-wave inversions noted V3-V6 but no ST or depressions. CXR shows increased central bronchovascular markings and coarse lung markings likely related to pulmonary edema. Given leukocytosis and tachycardia, we will check procalcitonin given associated cough though suspect this is more likely related to CHF exacerbation rather than pneumonia/sepsis. In the ED, given DuoNeb, 40 mg Lasix, Ativan, nitro paste, diltiazem, 60 mg methylprednisolone, aspirin, 0.25 mg digoxin and 60 mg therapeutic Lovenox. Review of Systems Review of Systems: General: No fevers, malaise, unintentional weight loss HEENT: No blurred vision, diplopia. No sore throat, nasal congestion, rhinorrhea, sinus pain, ear pain Cardiovascular: +chest pain. No palpitations, or leg edema Respiratory: +SCOTT, +orthopnea, +wheezing, +cough. GI: No abdominal pain, nausea, vomiting, diarrhea, constipation, melena, hematochezia : No dysuria, hematuria, increased urinary frequency, decreased urinary output MSK: No myalgia, back pain Neuro: No headaches, weakness, paresthesias Skin: No rashes or lesions [facility] Medical History Chronic lung disease Skin lesion Dyslipidemia Cough due to DAISY inhibitor Neck pain GERD (gastroesophageal reflux disease) Aortic regurgitation Right hand pain Leg edema COPD (chronic obstructive pulmonary disease) Allergic rhinitis Anxiety Hypertension Family History Father Medical history unknown Mother Medical history unknown Surgical History Carpal tunnel syndrome, right History of bilateral cataract extraction History of partial hysterectomy Social History Household Members: None Housing: House Do you presently have visiting nurse or other home services: No Alcohol intake: current Alcohol intake frequency: holidays/special occasions only Alcohol type: other Patient Tobacco Use Status: Former Tobacco user Tobacco use type: Cigarette e-Cigarette/Vaping Use: Never Used Second Hand Smoke Exposure: No Advance Directives: No Advance Directives Information Provided: Yes Advance Directives Date on File: 08/25/20 Do you have a plan to hurt others: No Plan service: No Current occupational status: retired Cognitive needs: No Hearing needs: No Vision needs: No Meds Allergies Allergy/AdvReac Type Severity Reaction Status Date / Time Sulfa (Sulfonamide Allergy Intermediate nausea, Verified 11/06/23 06:20 Antibiotics) vomiting Active Medications: Current Medications Acetaminophen (Acetaminophen 325 Mg Tablet) 650 mg PO Q6H PRN PRN Reason: Pain, Mild (Pain Scale 1-3) Digoxin (Digoxin 0.5 Mg/2 Ml Ampul) 0.25 mg IVPUSH Q6H MARIA D Stop: 11/07/23 02:31 Enoxaparin Sodium (Enoxaparin Sodium 40 Mg/0.4 Ml Syringe) 60 mg SUBCUT Q12H MARIA D Furosemide (Furosemide 40 Mg/4 Ml Vial) 40 mg IVPUSH BID@0900,1800 [facility]; Protocol Ondansetron HCl (Ondansetron Hcl 4 Mg/2 Ml Vial) 4 mg IVPUSH Q8H PRN PRN Reason: Nausea and Vomiting Senna (Sennosides 8.6 Mg Tablet) 17.2 mg PO BEDTIME PRN PRN Reason: Constipation Sodium Chloride (0.9 % Sodium Chloride Flush 3 Ml Syringe) 3 ml IVFLUSH QSHIFT [facility] Home Medications ?Medication ?Instructions ?Recorded ?Confirmed ?Last Taken ?Type cholecalciferol (vitamin D3) 50 50 mcg PO DAILY 08/09/21 10/24/23 Unknown History mcg (2,000 unit) capsule folic acid 1 mg tablet 1 mg PO DAILY 08/09/21 10/24/23 Unknown History vitamin B complex (B 1 tab PO DAILY 08/09/21 10/24/23 Unknown History Complex-Vitamin B12 tablet) turmeric 100 mg-carol 150 1 cap PO 3XW 06/11/23 10/24/23 Unknown History mg-olive 50 mg-oreg 150 mg-capryl capsule tiotropium bromide 2.5 2 puff inhalation DAILY 08/26/23 11/06/23 Unknown History mcg/actuation mist for inhalation (Spiriva Respimat) prednisone 5 mg tablet 5 mg PO Q48H copd 11/06/23 11/06/23 Unknown History rosuvastatin 5 mg tablet 5 mg PO DAILY 11/06/23 11/06/23 Unknown History Physical Exam Vital Signs and Narrative: Vital Signs: Last Vital Signs Temp 97.5 F 11/06/23 11:22 Pulse 94 11/06/23 13:03 Resp 32 H 11/06/23 14:12 BP 137/74 11/06/23 13:03 Pulse Ox 92 11/06/23 13:03 O2 Del Method BiPAP 11/06/23 13:03 O2 Flow Rate 45 11/06/23 11:22 FiO2 40 11/06/23 13:03 Oxygen Flow Rate 2 11/06/23 06:18 BMI result Body Mass Index 21.6 Constitutional - Awake and Alert, No apparent distress Eyes - PERRLA, EOMI Cardiovascular - S1S2, irregularly irregular, rate normal, 1+ bili edema Respiratory - Normal lung expansion, slightly increased respiratory effort on cpap but no respiratory distress, diminished bilaterally with scattered crackles and expiratory wheezes Gastrointestinal - NT / ND; +BS; No rebound or guarding Extremities - no calf tenderness bilaterally, no swelling Skin - Warm/Dry Neurological - Alert & oriented x3 Psychological - Appropriate affect Results Labs 11/06/23 07:46 11/06/23 07:36 Labs: Laboratory Results - last 24 hr 11/06/23 11/06/23 11/06/23 07:13 07:22 07:36 MCV MCH MCHC RDW Plt Count MPV Immature Gran % (Auto) Neut % (Auto) Lymph % (Auto) [place] % (Auto) Eos % (Auto) Baso % (Auto) Lymph # (Auto) [place] # (Auto) Eos # (Auto) Baso # (Auto) Abs Immat Gran (auto) Absolute Neuts (auto) Absolute Nucleated RBC Nucleated RBC % (auto) PT INR VBG pH 7.35 VBG pCO2 43 VBG pO2 127 VBG HCO3 24 VBG O2 Saturation 99.0 VBG Base Excess -0.8 Anion Gap 15 Estim Creat Clear Calc 57.0 Estimated GFR > 60 Random Glucose 180 H Lactic Acid 1.5 Calcium 9.6 Magnesium 1.6 Total Bilirubin 0.8 Direct Bilirubin 0.4 AST 30 ALT 31 Alkaline Phosphatase 129 H Troponin I High Sens 43.6 H D C-Reactive Protein 0.55 H B-Natriuretic Peptide 686 H Total Protein 7.2 Albumin 4.3 TSH 1.54 Influenza Type A (PCR) Influenza Type B (PCR) RSV RNA Qual (PCR) SARS-CoV-2 RNA (RT-PCR) 11/06/23 11/06/23 07:46 10:19 MCV 98.0 MCH 32.5 MCHC 33.2 RDW 14.0 Plt Count 309 D MPV 9.3 L Immature Gran % (Auto) 0.9 H Neut % (Auto) 81.8 H Lymph % (Auto) 9.1 L [place] % (Auto) 7.3 Eos % (Auto) 0.4 Baso % (Auto) 0.5 Lymph # (Auto) 1.5 [place] # (Auto) 1.2 Eos # (Auto) 0.1 Baso # (Auto) 0.1 Abs Immat Gran (auto) 0.15 H Absolute Neuts (auto) 13.8 H Absolute Nucleated RBC 0.000 Nucleated RBC % (auto) 0.0 PT 11.2 INR 0.9 VBG pH VBG pCO2 VBG pO2 VBG HCO3 VBG O2 Saturation VBG Base Excess Anion Gap Estim Creat Clear Calc Estimated GFR Random Glucose Lactic Acid Calcium Magnesium Total Bilirubin Direct Bilirubin AST ALT Alkaline Phosphatase Troponin I High Sens 160.9 H* D C-Reactive Protein B-Natriuretic Peptide Total Protein Albumin TSH Influenza Type A (PCR) NEGATIVE Influenza Type B (PCR) NEGATIVE RSV RNA Qual (PCR) NEGATIVE SARS-CoV-2 RNA (RT-PCR) NEGATIVE Imaging Radiologist's Impressions: Impressions Chest X-Ray 11/06/23 07:22 IMPRESSION: Increased central bronchovascular markings and coarse lung markings. Differential would include airways disease and mild pulmonary edema. Clinical correlation recommended. Assessment and Plan (1) Atrial fibrillation with rapid ventricular response: Status: Acute (2) Congestive heart failure: Status: Acute (3) NSTEMI (non-ST elevated myocardial infarction): Status: Acute Plan 78-year-old female with history of severe COPD, GERD, cervical radiculopathy, hypertension, mood disorder, hyperlipidemia presents to the ED earlier today for evaluation of progressively worsening dyspnea both with exertion and at rest, orthopnea, and overall decline. She was hospitalized from 08/26-08/27 for COPD exacerbation and was discharged on 2 L supplemental O2 via nasal cannula. She will be admitted for further management of CHF exacerbation with new onset atrial fibrillation with rvr and nstemi. #New onset atrial fibrillation with RVR -60 mg therapeutic Lovenox b.i.d. for anticoagulation -initiate digoxin low 250 mcg q.6h x3. Avoid diltiazem per Cardiology -initiate metoprolol 25 mg q.8h p.o. -cardiac diet -cardiology consult -echocardiogram -TSH, magnesium within normal limits -monitor on telemetry # new onset congestive heart failure with acute on chronic hypoxemic respiratory failure -IV Lasix 40 mg b.i.d. per Cardiology -strict I&O -daily weights -cardiac diet, fluid restrictions 1.5 L -cardiology consult -echocardiogram -follow renal function, lytes, trend BNP -continue CPAP, wean as tolerated # NSTEMI -EKG shows new onset atrial fibrillation, rate 112, new T-wave inversions V3-V6 but no ST or depressions -initial trop 43.6 --> 160.9 -->355.3 -60 mg therapeutic Lovenox b.i.d. -initiate metoprolol. Continue ASA 81 mg daily. Statin -echocardiogram shows akinetic anterior wall -per Cardiology question takotsubo cardiomyopathy. Repeat EKG now and a.m. -cardiac diet -monitor on telemetry -cardiology consult # hypertension -initiate metoprolol as above. Can continue losartan. Hold amlodipine # COPD -does not appear to be in acute exacerbation. Suspect wheezing is cardiac in etiology -hold on further steroids. Continue maintenance inhalers, albuterol p.r.n. # chronic leukocytosis -suspect related to long-term steroid use rather than acute infection -no sepsis # acute cough -suspect related to CHF, not respiratory infection -however will check procalcitonin # hyperlipidemia -statin # mood disorder -continue home meds DVT prophylaxis-therapeutic Lovenox as above Full code Patient requires inpatient stay at least 2 midnights for management of new onset atrial fibrillation requiring IV rate control meds, cardiac monitoring and expert consultation. Will also require aggressive IV diuresis due to significant volume overload related to CHF exacerbation. Patient also has NSTEMI possibly related to takotsubo cardiomyopathy on therapeutic Lovenox requiring expert consultation and probable transfer to tertiary care facility for cardiac catheterization Quality Stroke Does the patient have a stroke diagnosis?: No VTE Prior VTE?: No VTE Risk Level:: Medical - moderate - high VTE Device Contraindication: Treatment Not Indicated VTE Drug Contraindication: Treatment Not Indicated
--- NOTE | 2023-11-06 14:42 | PHA.MEDREC ---
Addendum entered by Frances Nieto [facility] 11/06/23 14:46: Also per office visit note, flovent was d/c'ed and changed to Breo [id number]. Original Note: Pharmacy Consult ? Medication Reconciliation Pharmacy has completed the medication reconciliation, pt had family at bedside, family confirmed lorazepam, two blood pressure medications and spiriva. [facility], [facility] most [facility] but OTC vitamins/supplements had no claims. Pt's family also said she has a spiriva inhaler but [facility] mentioned it was last filled in March 2023, confirmed all medications except those that were unobtainable through claims hx.
[2023-11-06] MEDS: Enoxaparin Sodium 60 MG/0.6 ML SYRINGE SUBCUT (15:17)
[2023-11-06] MEDS: Digoxin 0.5 MG/2 ML AMPUL 0.25 MG IVPUSH ×2 (15:18→21:05)
[2023-11-06 16:53] LABS: Troponin-I High Sensitivity 355.3 ng/L (<3.5-17.0)
--- NOTE | 2023-11-06 17:00 | CA_ITS ---
Transthoracic Echocardiogram Patient (Last, First, Middle): Yasmeen Andrews R Gender: Female Date of : 1945 Age: 78 Procedure Date: 11/06/2023 Procedure Type: Transthoracic Echocardiogram Location: ER Height: 152.4 cm Weight: 48.08 kg BSA: 1.43 m2 Heart Rate: bpm BP: 197 / 80 mmHg Planer Off Bearer: Referring MD: Johny Turner MD Symptoms: New CHF Study Quality: Adequate w Definity ECG Rhythm: Atrial Fibrillation Conclusions: - Normal left ventricular cavity size. There is mildly increased left ventricular wall thickness. The left ventricular systolic function is moderately decreased. The visually estimated ejection fraction is between 30-35%. - The entire apex, the mid anterior, mid inferior, mid anterolateral, mid inferoseptal, mid anteroseptal, and mid inferolateral segments are akinetic. - Normal right ventricular cavity size and systolic function. - Significantly elevated right atrial pressure. Moderate to severe pulmonary hypertension is present. Findings Procedure Information Contrast agent, definity, is being given per protocol without apparent complications. Left Ventricle Normal left ventricular cavity size. There is mildly increased left ventricular wall thickness. The left ventricular systolic function is moderately decreased. The visually estimated ejection fraction is between 30 35%. There is evidence of regional wall motion abnormalities. Diastolic function is indeterminate on the basis of available data. Wall Motion Rest Echo Findings The entire apex, the mid anterior, mid inferior, mid anterolateral, mid inferoseptal, mid anteroseptal, and mid inferolateral segments are akinetic. Right Ventricle Normal right ventricular cavity size and systolic function. Atria The left atrium is severely dilated. Aortic Valve There is a normal trileaflet aortic valve. There is moderate thickening of the aortic valve. There is no aortic valve stenosis. There is moderate aortic valve regurgitation. Mitral Valve The mitral valve appears normal. There is mild mitral valve regurgitation. There is no mitral valve stenosis. Pulmonic Valve The pulmonic valve is normal. There is trace pulmonic valve regurgitation. Tricuspid Valve Normal tricuspid valve structure. There is moderate tricuspid valve regurgitation. The right ventricular systolic pressure is 56 mmHg. Significantly elevated right atrial pressure. Moderate to severe pulmonary hypertension is present. Great Vessels All visible segments of the aorta are normal in size. Venous The inferior vena cava is dilated and does not collapse with inspiration. Pericardium/Pleural There is no evidence of pericardial effusion. Prior Study Comparison Changes noted compared to prior study dated: 12/13/2021. EF 30-35% with RWMA, moderate AI, mod to severe pulm HTN. Measurements 2D Linear Measurements IVSd: 0.90 0.6-0.9/0.6-1.0 cm LVIDd: 4.25 3.9-5.3/4.2-5.9 cm LVIDd Index: 2.97 2.4-3.2/2.2-3.1 cm/m2 LVIDs: 3.41 2.0-3.6 cm LVPWd: 0.95 0.7-1.1 cm Ao Root: 3.10 2.1-3.5 cm LA Diam: 4.60 2.7-3.8/3.0-4.0 cm LAIDs Index: 3.22 1.5-2.3 cm/m2 LV Mass: 156.11 67-162/88-224 g LV Mass Index: 109.17 43-95/49-115 g/m2 LVOT Diam: 1.90 3.0+(-)1.3 cm 2D Systolic Function EF 4C: 34.10 >55% EF 2C: 19.50 >55% EF BiP: 28.80 >55% Mitral Valve MV Pk E: 0.93 MV Decel Time: 151.00 E'Lateral: 13.60 E'Medial: 6.85 E/E' Med: 13.60 E/E' Lat: 6.80 PHT: 44.00 MVA PHT: 5.00 Decel [place]: 6.14 Aortic Valve AoV Pk Jabari: 1.81 AoV Mn Jabari: 1.13 AoV VTI: 0.31 AoV Pk Grad: 13.00 Aov Mn Grad: 6.00 FRANCISCO Cont.VTI: 1.23 LVOT LVOT Pk Jabari: 0.82 LVOT Mn Jabari: 0.52 LVOT VTI: 0.14 LVOT Pk Grad: 3.00 LVOT Mn Grad: 1.00 LVOT Diam: 1.90 LVOT Area: 2.84 Diastolic Function MV Pk E: 0.93 E'Medial: 6.85 E/E' Med: 13.60 E' Laterial: 13.60 E/E' Lat: 6.80 Right Ventricle TAPSE (mm): 20.00 TVS' Jabari: 13.00 Tricuspid Valve TR Pk Jabari: 3.21 TR Pk Grad: 41.00 RA Press: 15.00 RVSP: 56.00 Great Vessels Aorta Ao Root-2D: 3.10 2.0-3.7 cm Ao Asc: 3.00 2.1-3.4 cm Pulmonary Valve PV Pk Jabari: 0.88 Peak PV Grad: 3.00 Updated in Other Vendor System with Status of Final Basilio Corral MD electronically signed on 11/06/2023 6:40:37 PM with status of Final
[2023-11-06] MEDS: Metoprolol Tartrate 25 MG TABLET PO (18:42)
--- NOTE | 2023-11-06 19:30 | HO.SKINPHOTO ---
Location: Category: Stage: Length: Width: Depth: cm Location: Category: Stage: Length: Width: Depth: cm Location: Category: Stage: Length: Width: Depth: cm Location: Category: Stage: Length: Width: Depth: cm Location: Category: Stage: Length: Width: Depth: cm Location: Category: Stage: Length: Width: Depth: cm
[2023-11-06] MEDS: LORazepam 0.5 MG TABLET PO (21:13)
[2023-11-06 21:52] LABS: Procalcitonin 0.13 ng/mL
[2023-11-07] VITALS (12 sets, daily range): BP systolic 106–144; BP diastolic 58–73; PULSE 56–89; RESP 17–24; TEMP 36.1–36.5; O2SAT 96–100
[2023-11-07] MEDS: Digoxin 0.5 MG/2 ML AMPUL 0.25 MG IVPUSH (02:42)
[2023-11-07] MEDS: Enoxaparin Sodium 60 MG/0.6 ML SYRINGE SUBCUT ×2 (02:42→17:11)
[2023-11-07] MEDS: 0.9 % Sodium Chloride Flush 3 ML SYRINGE IVFLUSH ×4 (02:48→20:45)
[2023-11-07 06:00] LABS: MANUAL DIFF FLAG NO
[2023-11-07 06:04] LABS: Basophils Percent Auto 0.2 % (0-2); Hematocrit 32.9 % (37.0-47.0); Hemoglobin 11.1 g/dl (12.0-16.0); Imm Gran Pct Auto 0.9 % (0.0-0.4); Lymphocytes Absolute Auto 0.9 X10*3/uL (1.2-4.9); Lymphocytes Percent Auto 7.8 % (20-40); Mean Corpuscular HGB Conc 33.7 g/dl (31.0-35.0); Mean Corpuscular Hemoglobin 32.3 pg (27.0-33.0); Mean Corpuscular Volume 95.6 fL (80.0-98.0); Mean Platelet Volume 9.4 fL (9.4-12.3); Monocytes Absolute Auto 0.9 X10*3/uL (0.1-1.2); Monocytes Percent Auto 7.3 % (2-11); Neutrophils Absolute Auto 9.7 x10*3/uL (2.0-8.3); Neutrophils Percent Auto 83.8 % (45-73); Platelet Count 232 X10*3/uL (160-400); Red Blood Count 3.44 X10*6/uL (4.20-5.50); Red Cell Distribution Width 13.8 % (11.0-16.0); White Blood Count 11.6 X10*3/uL (4.8-10.8)
[2023-11-07 06:20] LABS: Anion Gap 14 (12-20); Blood Urea Nitrogen 19 mg/dL (9-16); Calcium 9.3 mg/dL (8.4-10.2); Carbon Dioxide 27 mmol/L (22-29); Chloride 101 mmol/L (96-108); Creatinine Clr Calc Pharmacy 53.9; Estimated Glomerular Filt Rate > 60; Glucose Random 124 mg/dL (60-115); Potassium 4.9 mmol/L (3.3-5.1); Sodium 137 mmol/L (135-145)
[2023-11-07] MEDS: Acetaminophen 325 MG TABLET 650 MG PO (06:50)
[2023-11-07] MEDS: Tiotropium Bromide 2.5 mcg 1 PUFF/2.5 MCG MIST.INHAL 2 PUFF INHALE (07:47)
[2023-11-07] MEDS: Fluticasone/Vilanterol 200/25 BLST.W.DEV 1 PUFF INHALE (07:47)
--- NOTE | 2023-11-07 08:00 | ECG_ITS ---
Test Reason : DIFF BREATHING Blood Pressure : / mmHG Vent. Rate : 075 BPM Atrial Rate : 000 BPM P-R Int : 000 ms QRS Dur : 080 ms QT Int : 416 ms P-R-T Axes : 000 -42 203 degrees QTc Int : 464 ms Atrial fibrillation Left axis deviation ST & Marked T wave abnormality, consider anterolateral ischemia Abnormal ECG When compared with ECG of 06-NOV-2023 11:21, Vent. rate has decreased BY 37 BPM Criteria for Septal infarct are no longer Present Marked T wave changes Referred By: Divya Wang Electronically Signed By:Basilio Corral
--- NOTE | 2023-11-07 08:58 | HO.WOUND ---
Wound Consult: Initial 78yr old? [place] [facility] [place] - See progress notes and H&P for detailed history.? Wound consult placed for Right Powell wound POA.? Patient agreeable to assessment and photo documentation.? Patient states saturday she was walking in her back yard fell and hit her leg. No s/s of infection noted at this time - see skin photo in documentation. Right Powell Etiology: Skin Tear ? Measurements: 4cm x 1.5cm x 0.1cm Wound Bed: two flaps reapproximated appear to be adhering to wound bed already - partial thickness tissue loss noted - light purple bruising noted Drainage / Odor: None noted Edges: ? Irregular Adelina wound: ?No s/s of infection no erythema No Induration, Fluctuance or Warmth noted Pain: tenderness reported Goals of Treatment: ? Moist wound healing Recommendations: 1. Right Powell - Cleanse with normal saline, pat dry. ?Apply double layer Xeroform secure with Abd pads, gauze wrap and tape. ?Change Daily. Do not apply tape to patients skin.? Avoid Adhesive application to skin - when necessary, apply skin prep prior.? Re-consult wound care Nurse for wound deterioration or wound changes.
[2023-11-07] MEDS: Aspirin Enteric Coated 81 MG TABLET.DR PO (09:27)
[2023-11-07] MEDS: Loratadine 10 MG TABLET PO (09:27)
[2023-11-07] MEDS: Losartan Potassium 25 MG TABLET PO (09:27)
[2023-11-07] MEDS: Atorvastatin Calcium 20 MG TABLET PO (09:27)
[2023-11-07] MEDS: Metoprolol Tartrate 25 MG TABLET PO ×2 (09:27→17:11)
[2023-11-07] MEDS: predniSONE 5 MG TABLET PO (09:27)
[2023-11-07] MEDS: LORazepam 0.5 MG TABLET PO ×2 (09:32→20:45)
[2023-11-07] MEDS: Furosemide 40 MG/4 ML VIAL IVPUSH ×2 (09:36→17:11)
--- NOTE | 2023-11-07 09:57 | P.PNIM_ITS ---
Subjective Subjective Date of Service: 11/07/23 Interval History: Seen in follow-up for acute hypoxemic respiratory failure with CHF exacerbation and new onset AFib RVR, NSTEMI Interval history: Reports marked improvement in dyspnea. Weaned to high-flow. Denies any chest pain, lightheadedness, palpitations. Repeat EKG this morning with deep t wave inversions lateral, inferior, anterior leads. Review of Systems Review of Systems: Yes all other systems are reviewed and are negative Physical Exam 2 Vital Signs: Vital Signs: Last Vital Signs Temp 97.5 F 11/07/23 07:35 Pulse 79 11/07/23 09:27 Resp 18 11/07/23 07:54 BP 144/73 H 11/07/23 09:27 Pulse Ox 100 11/07/23 07:35 O2 Del Method Nasal Cannula, Hi gh Flow Nasal David cash 11/07/23 07:35 O2 Flow Rate 40 11/07/23 07:35 FiO2 42 11/07/23 07:35 Oxygen Flow Rate 2 11/06/23 06:18 BMI result Body Mass Index 22.0 Constitutional - Awake and Alert, No apparent distress Eyes - PERRLA, EOMI Cardiovascular - S1S2, RRR, 1+ edema Respiratory - Normal lung expansion, Normal respiratory effort, No respiratory distress on high-flow O2, CTA bilaterally Extremities - no calf tenderness bilaterally, no swelling Skin - Warm/Dry Neurological - Alert & oriented x3 Psychological - Appropriate affect Objective Data Active Medications Acetaminophen (Acetaminophen 325 Mg Tablet) 650 mg PO Q6H PRN PRN Reason: Pain, Mild (Pain Scale 1-3) Last Admin: 11/07/23 06:50 Dose: 650 mg Documented By: MINDI Albuterol Sulfate (Albuterol Sulfate 90 Mcg 8 Gm Inhaler) 2 puff INHALE Q4H PRN PRN Reason: shortness of breath or wheezing Aspirin (Aspirin Enteric Coated 81 Mg Tablet.) 81 mg PO DAILY [facility] Last Admin: 11/07/23 09:27 Dose: 81 mg Documented By: WALLACE Atorvastatin Calcium (Atorvastatin Calcium 20 Mg Tablet) 20 mg PO DAILY [facility] Last Admin: 11/07/23 09:27 Dose: 20 mg Documented By: WALLACE Enoxaparin Sodium (Enoxaparin Sodium 60 Mg/0.6 Ml Syringe) 60 mg SUBCUT Q12H [facility] Last Admin: 11/07/23 02:42 Dose: 60 mg Documented By: MINDI Fluticasone/Vilanterol (Fluticasone/Vilanterol 200/25 Blst.W.Dev) 1 puff INHALE RDAILY [facility] Last Admin: 11/07/23 07:47 Dose: 1 puff Documented By: ORVILLE Furosemide (Furosemide 40 Mg/4 Ml Vial) 40 mg IVPUSH BID@0900,1800 [facility]; Protocol Last Admin: 11/07/23 09:36 Dose: 40 mg Documented By: WALLACE Loratadine (Loratadine 10 Mg Tablet) 10 mg PO DAILY [facility] Last Admin: 11/07/23 09:27 Dose: 10 mg Documented By: WALLACE Lorazepam (Lorazepam 0.5 Mg Tablet) 0.5 mg PO Q8H PRN PRN Reason: anxiety Last Admin: 11/07/23 09:32 Dose: 0.5 mg Documented By: WALLACE Losartan Potassium (Losartan Potassium 25 Mg Tablet) 25 mg PO DAILY [facility]; Protocol Last Admin: 11/07/23 09:27 Dose: 25 mg Documented By: WALLACE Metoprolol Tartrate (Metoprolol Tartrate 25 Mg Tablet) 25 mg PO TID [facility]; Protocol Last Admin: 11/07/23 09:27 Dose: 25 mg Documented By: WALLACE Ondansetron HCl (Ondansetron Hcl 4 Mg/2 Ml Vial) 4 mg IVPUSH Q8H PRN PRN Reason: Nausea and Vomiting Prednisone (Prednisone 5 Mg Tablet) 5 mg PO Q48H [facility] Last Admin: 11/07/23 09:27 Dose: 5 mg Documented By: WALLACE Senna (Sennosides 8.6 Mg Tablet) 17.2 mg PO BEDTIME PRN PRN Reason: Constipation Sodium Chloride (0.9 % Sodium Chloride Flush 3 Ml Syringe) 3 ml IVFLUSH QSHIFT [facility] Last Admin: 11/07/23 09:28 Dose: 3 ml Documented By: WALLACE Tiotropium [place] (Tiotropium [place] 2.5 Mcg 1 Puff/2.5 Mcg Mist.Inhal) 2 puff INHALE RDAILY [facility] Last Admin: 11/07/23 07:47 Dose: 2 puff Documented By: ORVILLE Labs 11/07/23 05:55 11/07/23 05:55 Labs: Laboratory Results - last 24 hr 11/06/23 11/06/23 11/06/23 07:36 10:19 16:02 MCV MCH MCHC RDW Plt Count MPV Immature Gran % (Auto) Neut % (Auto) Lymph % (Auto) [place] % (Auto) Eos % (Auto) Baso % (Auto) Lymph # (Auto) [place] # (Auto) Eos # (Auto) Baso # (Auto) Abs Immat Gran (auto) Absolute Neuts (auto) Absolute Nucleated RBC Nucleated RBC % (auto) Anion Gap Estim Creat Clear Calc Estimated GFR Random Glucose Calcium Troponin I High Sens 160.9 H* D 355.3 H* D Procalcitonin 0.13 TSH 1.54 11/07/23 05:55 MCV 95.6 MCH 32.3 MCHC 33.7 RDW 13.8 Plt Count 232 MPV 9.4 Immature Gran % (Auto) 0.9 H Neut % (Auto) 83.8 H Lymph % (Auto) 7.8 L [place] % (Auto) 7.3 Eos % (Auto) 0.0 Baso % (Auto) 0.2 Lymph # (Auto) 0.9 L [place] # (Auto) 0.9 Eos # (Auto) 0.0 Baso # (Auto) 0.0 Abs Immat Gran (auto) 0.10 H Absolute Neuts (auto) 9.7 H Absolute Nucleated RBC 0.000 Nucleated RBC % (auto) 0.0 Anion Gap 14 Estim Creat Clear Calc 53.9 Estimated GFR > 60 Random Glucose 124 H Calcium 9.3 Troponin I High Sens Procalcitonin TSH Microbiology Microbiology Results: Microbiology 11/06/23 07:36 Blood Culture - Preliminary Blood - Venous No growth after 24 hours. 11/06/23 07:13 Blood Culture - Preliminary Blood - Venous No growth after 24 hours. Assessment and Plan (1) NSTEMI (non-ST elevated myocardial infarction): Status: Acute (2) Atrial fibrillation with rapid ventricular response: Status: Acute (3) Acute hypoxemic respiratory failure: Status: Acute Plan 78-year-old female with history of severe COPD, GERD, cervical radiculopathy, hypertension, mood disorder, hyperlipidemia presents to the ED earlier today for evaluation of progressively worsening dyspnea both with exertion and at rest, orthopnea, and overall decline. She was hospitalized from 08/26-08/27 for COPD exacerbation and was discharged on 2 L supplemental O2 via nasal cannula. She will be admitted for further management of CHF exacerbation with new onset atrial fibrillation with rvr and nstemi. #New onset atrial fibrillation with RVR -60 mg therapeutic Lovenox b.i.d. for anticoagulation -Loaded with digoxin low 250 mcg q.6h x3. Avoid diltiazem per Cardiology -Continue metoprolol 25 mg q.8h p.o. -cardiac diet -cardiology consult -echocardiogram shows moderately decreased LV systolic function with EF 30-35% and mildly increased left ventricular wall thickness. There is also akinesis of the entire apex, mid anterior, mid inferior, mid anterolateral, mid inferoseptal, mid anteroseptal, and mid inferolateral segments -TSH, magnesium within normal limits -monitor on telemetry # new onset congestive heart failure with acute on chronic hypoxemic respiratory failure -IV Lasix 40 mg b.i.d. per Cardiology -strict I&O -daily weights -cardiac diet, fluid restrictions 1.5 L -cardiology consult -echocardiogram as above -follow renal function, lytes, trend BNP -has been weaned to high-flow from CPAP (initially required BiPAP in the ED). Continue supplemental O2 to maintain oximetry around 92%, wean as tolerated per protocol # NSTEMI -EKG shows new onset atrial fibrillation, rate 112, new T-wave inversions V3-V6 but no ST or depressions. Repeat EKG 11/06 shows deeper T-wave inversions in lateral, anterior, and inferior leads -initial trop 43.6 --> 160.9 -->355.3 -60 mg therapeutic Lovenox b.i.d. -initiate metoprolol. Continue ASA 81 mg daily. Statin -echocardiogram as above -per Cardiology question takotsubo cardiomyopathy. -cardiac diet -monitor on telemetry -cardiology input appreciated # hypertension -initiate metoprolol as above. Can continue losartan. Hold amlodipine # COPD -does not appear to be in acute exacerbation. Suspect wheezing is cardiac in etiology -hold on further steroids. Continue maintenance inhalers, albuterol p.r.n. # chronic leukocytosis -suspect related to long-term steroid use rather than acute infection -no sepsis # acute cough -suspect related to CHF, not respiratory infection -however will check procalcitonin # hyperlipidemia -statin # mood disorder -continue home meds DVT prophylaxis-therapeutic Lovenox as above Full code Patient requires ongoing inpatient stay as she continues to require high-flow supplemental O2 secondary to volume overload from congestive heart failure and also requires further management with parental anticoagulation for NSTEMI with expert consultation and probable transfer to tertiary care facility Quality Stroke Does the patient have a stroke diagnosis?: No VTE Prior VTE?: No VTE Risk Level:: Medical - moderate - high VTE Device Contraindication: Treatment Not Indicated VTE Drug Contraindication: Treatment Not Indicated
--- NOTE | 2023-11-07 13:04 | MHC.CM.PN ---
Addendum entered by Lisbet Morris 11/08/23 14:04: INFORMATION GIVEN TO PT/DAUGHTER, ON WHERE THEY CAN OBTAIN FREE DME THEY ARE HOPING TO FIND A COM[facility] [address] [facility] [id number] FROM [id number] HOURS Original Note: IMM 11/07/23, PT W/CHF/NSTEMI MAY NEED TXFR TO [facility] [place], CM MET W/PT WHO REPORTS SHE LIVES W/HER 3 DOGS, IS INDEP AND HER 3 CHILDREN AND GCHILDREN ASSIST W/ANY NEEDS THAT COME UP, PT DOES HAVE A CANE/WALKER AT HOME HOWEVER DOES NOT USE THEM YET, PT HAS NO HOME SERVICES AND D/T POSSIBILTY OF NEEDING TXFR TO [facility] PT DECLINES O DISCUSS DISPO AT THIS TIME. PT VERIFIES PCP AND REPORTS SHE DID FIND A COPY OF HER HCP AND WILL HAVE DTR BRING COPY IN TOMORROW, DTR WILL BRING TO [facility] IF PT TRANSFERS.
--- NOTE | 2023-11-07 14:24 | P.PNCA_ITS ---
Subjective Subjective Date of Service: 11/07/23 Interval history: Seen and examined at bedside. She is saying her breathing is improving. EKGs showing diffuse T-wave inversions in the precordial leads. No chest discomfort. On Lovenox. Heart rate better controlled. Physical Exam Vital Signs: Last Vital Signs Temp 96.9 F 11/07/23 11:03 Pulse 72 11/07/23 11:03 Resp 17 11/07/23 11:47 BP 113/66 11/07/23 11:03 Pulse Ox 97 11/07/23 11:03 O2 Del Method Nasal Cannula, High Flow Nasal Cannula 11/07/23 11:03 O2 Flow Rate 40 11/07/23 11:03 FiO2 42 11/07/23 11:03 Oxygen Flow Rate 2 11/06/23 06:18 BMI result Body Mass Index 22.0 GENERAL APPEARANCE: Breathing is better than yesterday. Continues to be on high-flow oxygen. NECK: no carotid bruit, + jugular venous distention. SKIN: no suspicious lesions, warm and dry. HEART: no murmurs, irregular rate and rhythm. LUNGS: Diminished breath sounds bilaterally. ABDOMEN: soft, nontender. EXTREMITIES: no edema. Right marques has dressing. PERIPHERAL PULSES: equal. NEUROLOGIC: No gross deficits, AAO X 3 Objective Labs and Meds 11/07/23 05:55 11/07/23 05:55 Lab results: Laboratory Results - last 24 hr 11/06/23 11/07/23 16:02 05:55 WBC 11.6 H RBC 3.44 L Hgb 11.1 L Hct 32.9 L MCV 95.6 MCH 32.3 MCHC 33.7 RDW 13.8 Plt Count 232 MPV 9.4 Immature Gran % (Auto) 0.9 H Neut % (Auto) 83.8 H Lymph % (Auto) 7.8 L [place] % (Auto) 7.3 Eos % (Auto) 0.0 Baso % (Auto) 0.2 Lymph # (Auto) 0.9 L [place] # (Auto) 0.9 Eos # (Auto) 0.0 Baso # (Auto) 0.0 Abs Immat Gran (auto) 0.10 H Absolute Neuts (auto) 9.7 H Absolute Nucleated RBC 0.000 Nucleated RBC % (auto) 0.0 Sodium 137 Potassium 4.9 D Chloride 101 Carbon Dioxide 27 Anion Gap 14 BUN 19 H Creatinine 0.73 Estim Creat Clear Calc 53.9 Estimated GFR > 60 Random Glucose 124 H Calcium 9.3 Troponin I High Sens 355.3 H* D Procalcitonin 0.13 Progress Note: A&P Assessment and plan (1) Congestive heart failure: Status: Acute (2) Atrial fibrillation with rapid ventricular response: Status: Acute (3) NSTEMI (non-ST elevated myocardial infarction): Status: Acute (4) Cardiomyopathy: Status: Acute Plan 78-year-old female presenting for shortness of breath and congestive heart failure in the setting of AFib with RVR. She has diffuse T-wave inversions on EKG with NSTEMI with EF 30% on echocardiography with mid to distal LV dysfunction in a pattern of takotsubo cardiomyopathy versus multivessel disease. Troponin elevation is not consistent with LAD territory infarct and likely diagnosis is takotsubo cardiomyopathy but will require diagnostic angiography to prove that. Currently on high-flow oxygen and is in no shape to do any procedures on her. Also clinically she is improving with diuretics and medical management at this point and has no anginal symptoms. Continue aspirin and Lovenox. Agree with 40 mg IV Lasix b.i.d.. Still she is volume overloaded. Agree with metoprolol 25 mg 3 times a day. This should not be titrated further. Losartan 25 mg daily. Can add Farxiga or Jardiance if no history of recurrent UTIs. Overall clinically improving. Thank you for allowing me to participate in the care of your patient. Please feel free to contact me if you have any questions. Time Spent With Patient Time: Total time managing care of this patient today ____ minutes. Progress Note: Quality Stroke Does the patient have a stroke diagnosis?: No Procedures Date of Service Date of Service: 11/07/23
[2023-11-07] MEDS: Magnesium Sulfate/H2O 2 GM/50 ML PIGGYBACK IV (19:24)
[2023-11-08] VITALS (12 sets, daily range): BP systolic 91–140; BP diastolic 52–95; PULSE 58–72; RESP 18–20; TEMP 36.4–36.8; O2SAT 92–100
[2023-11-08] MEDS: Enoxaparin Sodium 60 MG/0.6 ML SYRINGE SUBCUT ×2 (05:12→14:53)
[2023-11-08] MEDS: Albuterol Sulfate 90 MCG 8 GM INHALER 2 PUFF INHALE (05:18)
[2023-11-08 07:31] LABS: Anion Gap 15 (12-20); Blood Urea Nitrogen 25 mg/dL (9-16); Calcium 9.1 mg/dL (8.4-10.2); Carbon Dioxide 28 mmol/L (22-29); Chloride 100 mmol/L (96-108); Creatinine Clr Calc Pharmacy 53.2; Estimated Glomerular Filt Rate > 60; Glucose Random 89 mg/dL (60-115); Magnesium 1.9 mg/dL (1.6-2.6); Potassium 3.9 mmol/L (3.3-5.1); Sodium 139 mmol/L (135-145)
[2023-11-08] MEDS: Fluticasone/Vilanterol 200/25 BLST.W.DEV 1 PUFF INHALE (08:29)
[2023-11-08] MEDS: Tiotropium Bromide 2.5 mcg 1 PUFF/2.5 MCG MIST.INHAL 2 PUFF INHALE (08:29)
[2023-11-08] MEDS: Losartan Potassium 25 MG TABLET PO (09:26)
[2023-11-08] MEDS: Aspirin Enteric Coated 81 MG TABLET.DR PO (09:26)
[2023-11-08] MEDS: Atorvastatin Calcium 20 MG TABLET PO (09:26)
[2023-11-08] MEDS: 0.9 % Sodium Chloride Flush 3 ML SYRINGE IVFLUSH ×3 (09:27→20:22)
[2023-11-08] MEDS: Loratadine 10 MG TABLET PO (09:27)
[2023-11-08] MEDS: Metoprolol Tartrate 25 MG TABLET PO ×3 (09:27→20:22)
[2023-11-08] MEDS: Furosemide 40 MG/4 ML VIAL IVPUSH ×2 (09:27→18:42)
[2023-11-08] MEDS: Acetaminophen 325 MG TABLET 650 MG PO (09:30)
[2023-11-08] MEDS: LORazepam 0.5 MG TABLET PO ×2 (10:21→20:22)
--- NOTE | 2023-11-08 11:13 | PM.PNCARD ---
Subjective Subjective Date of Service: 11/08/23 Interval history: Seen examined at bedside Breathing is little better but she continues to be significantly hypoxic and requiring high-flow oxygen. Physical Exam Vital Signs: Last Vital Signs Temp 97.5 F 11/08/23 11:05 Pulse 58 11/08/23 11:05 Resp 20 11/08/23 11:05 BP 112/52 L 11/08/23 11:05 Pulse Ox 100 11/08/23 11:05 O2 Del Method Nasal Cannula 11/08/23 11:05 O2 Flow Rate 4 11/08/23 11:05 FiO2 35 11/08/23 07:40 Oxygen Flow Rate 2 11/06/23 06:18 BMI result Body Mass Index 22.0 GENERAL APPEARANCE: Breathing is better than yesterday. Continues to be on high-flow oxygen. NECK: no carotid bruit, + jugular venous distention. SKIN: no suspicious lesions, warm and dry. HEART: no murmurs, irregular rate and rhythm. LUNGS: Diminished breath sounds bilaterally. ABDOMEN: soft, nontender. EXTREMITIES: no edema. Right marques has dressing. PERIPHERAL PULSES: equal. NEUROLOGIC: No gross deficits, AAO X 3 Objective Labs and Meds 11/07/23 05:55 11/08/23 06:13 Lab results: Laboratory Results - last 24 hr 11/08/23 06:13 Hold Purple Top SEE NOTE Sodium 139 Potassium 3.9 D Chloride 100 Carbon Dioxide 28 Anion Gap 15 BUN 25 H Creatinine 0.74 Estim Creat Clear Calc 53.2 Estimated GFR > 60 Random Glucose 89 Calcium 9.1 Magnesium 1.9 Progress Note: A&P Assessment and plan (1) Congestive heart failure: Status: Acute (2) Atrial fibrillation with rapid ventricular response: Status: Acute (3) NSTEMI (non-ST elevated myocardial infarction): Status: Acute (4) Cardiomyopathy: Status: Acute Plan 78-year-old female presenting for shortness of breath and congestive heart failure in the setting of AFib with RVR. She has diffuse T-wave inversions on EKG with NSTEMI with EF 30% on echocardiography with mid to distal LV dysfunction in a pattern of takotsubo cardiomyopathy versus multivessel disease. Troponin elevation is not consistent with LAD territory infarct and likely diagnosis is takotsubo cardiomyopathy but will require diagnostic angiography to prove that. Currently on high-flow oxygen and is in no shape to do any procedures on her. Also clinically she is improving with diuretics and medical management at this point and has no anginal symptoms. Continue aspirin and Lovenox. Agree with 40 mg IV Lasix b.i.d.. She continues to be on high-flow oxygen. We will repeat chest x-ray to see if heart failure is improving. If she is still has significant congestion on x-ray then would favor increasing Lasix to 80 mg IV b.i.d.. Agree with metoprolol 25 mg 3 times a day. This should not be titrated further. Losartan 25 mg daily. Can add Farxiga or Jardiance if no history of recurrent UTIs. Overall clinically improving. Thank you for allowing me to participate in the care of your patient. Please feel free to contact me if you have any questions. Time Spent With Patient Time: Total time managing care of this patient today ____ minutes. Progress Note: Quality Stroke Does the patient have a stroke diagnosis?: No Procedures Date of Service Date of Service: 11/08/23
--- NOTE | 2023-11-08 12:42 | P.PNIM_ITS ---
Subjective Subjective Date of Service: 11/08/23 Interval History: Denies chest pain, had shortness of breath last night on OxyMask therefore placed back on high-flow, at present denies shortness of breath, no palpitations, no nausea, no vomiting no bowel movements last 2 days , tolerating diet no other acute issues of lightheadedness or dizziness. Review of Systems All other system reviewed and negative Physical Exam 2 Vital Signs: Vital Signs: Last Vital Signs Temp 97.5 F 11/08/23 11:05 Pulse 58 11/08/23 11:05 Resp 20 11/08/23 11:05 BP 112/52 L 11/08/23 11:05 Pulse Ox 100 11/08/23 11:05 O2 Del Method Nasal Cannula 11/08/23 11:05 O2 Flow Rate 4 11/08/23 11:05 FiO2 35 11/08/23 07:40 Oxygen Flow Rate 2 11/06/23 06:18 BMI result Body Mass Index 22.0 Const: Other: General awake alert x3, resting comfortably in no acute distress. Neck supple,+ JVD. CVS regular rate rhythm, Respiratory lungs clear to auscultation, diminished, no respiratory distress, no wheeze, no rales Gastrointestinal abdomen soft, non tender, bowel sounds audible, Extremities no edema. Neuro non focal Skin no rash Psych appropriate affect Objective Data Active Medications Acetaminophen (Acetaminophen 325 Mg Tablet) 650 mg PO Q6H PRN PRN Reason: Pain, Mild (Pain Scale 1-3) Last Admin: 11/08/23 09:30 Dose: 650 mg Documented By: NIKUNJ Albuterol Sulfate (Albuterol Sulfate 90 Mcg 8 Gm Inhaler) 2 puff INHALE Q4H PRN PRN Reason: shortness of breath or wheezing Last Admin: 11/08/23 05:18 Dose: 2 puff Documented By: MINDI Aspirin (Aspirin Enteric Coated 81 Mg Tablet.) 81 mg PO DAILY COUNT INCLUDES [facility] Last Admin: 11/08/23 09:26 Dose: 81 mg Documented By: NIKUNJ Atorvastatin Calcium (Atorvastatin Calcium 20 Mg Tablet) 20 mg PO DAILY COUNT INCLUDES [facility] Last Admin: 11/08/23 09:26 Dose: 20 mg Documented By: NIKUNJ Enoxaparin Sodium (Enoxaparin Sodium 60 Mg/0.6 Ml Syringe) 60 mg SUBCUT Q12H COUNT INCLUDES THE [facility] Last Admin: 11/08/23 05:12 Dose: 60 mg Documented By: MINDI Fluticasone/Vilanterol (Fluticasone/Vilanterol 200/25 Blst.W.Dev) 1 puff INHALE RDAILY COUNT INCLUDES THE [facility] Last Admin: 11/08/23 08:29 Dose: 1 puff Documented By: YANICK Furosemide (Furosemide 40 Mg/4 Ml Vial) 40 mg IVPUSH BID@0900,1800 COUNT INCLUDES THE [facility]; Protocol Last Admin: 11/08/23 09:27 Dose: 40 mg Documented By: NIKUNJ Loratadine (Loratadine 10 Mg Tablet) 10 mg PO DAILY COUNT INCLUDES [facility] Last Admin: 11/08/23 09:27 Dose: 10 mg Documented By: NIKUNJ Lorazepam (Lorazepam 0.5 Mg Tablet) 0.5 mg PO Q8H PRN PRN Reason: anxiety Last Admin: 11/08/23 10:21 Dose: 0.5 mg Documented By: CHRISTOPHER Losartan Potassium (Losartan Potassium 25 Mg Tablet) 25 mg PO DAILY [facility]CLUD[facility]; Protocol Last Admin: 11/08/23 09:26 Dose: 25 mg Documented By: NIKUNJ Metoprolol Tartrate (Metoprolol Tartrate 25 Mg Tablet) 25 mg PO TID COUNT INCLUDES THE [facility]; Protocol Last Admin: 11/08/23 09:27 Dose: 25 mg Documented By: NIKUNJ Ondansetron HCl (Ondansetron Hcl 4 Mg/2 Ml Vial) 4 mg IVPUSH Q8H PRN PRN Reason: Nausea and Vomiting Prednisone (Prednisone 5 Mg Tablet) 5 mg PO Q48H COUNT INCLUDES THE [facility] Last Admin: 11/07/23 09:27 Dose: 5 mg Documented By: WALLACE Senna (Sennosides 8.6 Mg Tablet) 17.2 mg PO BEDTIME PRN PRN Reason: Constipation Sodium Chloride (0.9 % Sodium Chloride Flush 3 Ml Syringe) 3 ml IVFLUSH QSHIFT COUNT INCLUDES THE [facility] Last Admin: 11/08/23 09:27 Dose: 3 ml Documented By: NIKUNJ Tiotropium [place] (Tiotropium [place] 2.5 Mcg 1 Puff/2.5 Mcg Mist.Inhal) 2 puff INHALE RDAILY COUNT INCLUDES THE [facility] Last Admin: 11/08/23 08:29 Dose: 2 puff Documented By: YANICK Labs 11/07/23 05:55 11/08/23 06:13 Labs: Laboratory Results - last 24 hr 11/08/23 06:13 Hold Purple Top SEE NOTE Anion Gap 15 Estim Creat Clear Calc 53.2 Estimated GFR > 60 Random Glucose 89 Calcium 9.1 Magnesium 1.9 Microbiology Microbiology Results: Microbiology 11/06/23 07:36 Blood Culture - Preliminary Blood - Venous No growth after 48 hours. 11/06/23 07:13 Blood Culture - Preliminary Blood - Venous No growth after 48 hours. Assessment and Plan (1) NSTEMI (non-ST elevated myocardial infarction): Status: Acute (2) Atrial fibrillation with rapid ventricular response: Status: Acute (3) Acute hypoxemic respiratory failure: Status: Acute Plan 78-year-old female with history of severe COPD, GERD, cervical radiculopathy, hypertension, mood disorder, hyperlipidemia presents to the ED earlier today for evaluation of progressively worsening dyspnea both with exertion and at rest, orthopnea, and overall decline. She was hospitalized from 08/26-08/27 for COPD exacerbation and was discharged on 2 L supplemental O2 via nasal cannula. She will be admitted for further management of CHF exacerbation with new onset atrial fibrillation with rvr and nstemi. #New onset atrial fibrillation with RVR -remains in atrial fibrillation with controlled ventricular rate, will continue 60 mg therapeutic Lovenox b.i.d. for anticoagulation -Loaded with digoxin 250 mcg q.6h x3. Continue metoprolol 25 mg q.8h p.o. -echocardiogram shows moderately decreased LV systolic function with EF 30-35% and mildly increased left ventricular wall thickness. There is also akinesis of the entire apex, mid anterior, mid inferior, mid anterolateral, mid inferoseptal, mid anteroseptal, and mid inferolateral segments -TSH, magnesium within normal limits -continue tele monitoring # new onset congestive heart failure with reduced EF, with acute on chronic hypoxemic respiratory failure -on examination noted to have clear lungs, no leg edema persistent JVD on IV Lasix 40 mg b.i.d. -follow strict I&O,daily weights, Shwetha the burning when I feel that , cardiac diet, fluid restrictions 1.5 L -stable magnesium, potassium and renal function, follow renal function, lytes, trend BNP -on high-flow, wean as tolerated (initially required BiPAP in the ED). -case discussed with Cardiology will repeat chest x-ray if noted to have persistent CHF will increase dose of Lasix to 80 b.i.d. # NSTEMI -EKG shows new onset atrial fibrillation, rate 112, new T-wave inversions V3-V6 but no ST or depressions. Repeat EKG 11/06 shows deeper T-wave inversions in lateral, anterior, and inferior leads -initial trop 43.6 --> 160.9 -->355.3 -continue therapeutic Lovenox b.i.d., metoprolol,ASA 81 mg daily and Lipitor -per Cardiology question takotsubo cardiomyopathy. # hypertension -continue losartan and amlodipine stable blood pressure # COPD no acute exacerbation noted continue maintenance inhalers, albuterol p.r.n. # chronic leukocytosis WBC improved -suspect related to long-term steroid use rather than acute infection # mood disorder -continue home meds DVT prophylaxis-therapeutic Lovenox Full code Patient requires ongoing inpatient stay since requiring high-flow supplemental O2 secondary to volume overload from congestive heart failure and also requires further management with parental anticoagulation for NSTEMI with expert consultation and probable transfer to tertiary care facility Quality Stroke Does the patient have a stroke diagnosis?: No VTE Prior VTE?: No VTE Risk Level:: Medical - moderate - high VTE Device Contraindication: Treatment Not Indicated VTE Drug Contraindication: Treatment Not Indicated
[2023-11-08] MEDS: Sennosides 8.6 MG TABLET 17.2 MG PO (20:35)
[2023-11-09] VITALS (9 sets, daily range): BP systolic 103–145; BP diastolic 56–68; PULSE 63–87; RESP 16–20; TEMP 36.2–36.8; O2SAT 96–100
[2023-11-09] MEDS: Enoxaparin Sodium 60 MG/0.6 ML SYRINGE SUBCUT ×2 (06:45→14:37)
[2023-11-09 07:14] LABS: Anion Gap 14 (12-20); Blood Urea Nitrogen 18 mg/dL (9-16); Calcium 9.7 mg/dL (8.4-10.2); Carbon Dioxide 30 mmol/L (22-29); Chloride 97 mmol/L (96-108); Creatinine Clr Calc Pharmacy 59.7; Estimated Glomerular Filt Rate > 60; Glucose Random 96 mg/dL (60-115); Potassium 3.9 mmol/L (3.3-5.1); Sodium 137 mmol/L (135-145)
[2023-11-09 07:25] LABS: B Type Natriuretic Peptide 2069 pg/mL (<100)
[2023-11-09] MEDS: Fluticasone/Vilanterol 200/25 BLST.W.DEV 1 PUFF INHALE (07:44)
[2023-11-09] MEDS: Tiotropium Bromide 2.5 mcg 1 PUFF/2.5 MCG MIST.INHAL 2 PUFF INHALE (07:44)
[2023-11-09] MEDS: Furosemide 40 MG/4 ML VIAL 80 MG IVPUSH (09:31)
[2023-11-09] MEDS: Aspirin Enteric Coated 81 MG TABLET.DR PO (09:32)
[2023-11-09] MEDS: Losartan Potassium 25 MG TABLET PO (09:32)
[2023-11-09] MEDS: predniSONE 5 MG TABLET PO (09:32)
[2023-11-09] MEDS: 0.9 % Sodium Chloride Flush 3 ML SYRINGE IVFLUSH ×3 (09:32→19:54)
[2023-11-09] MEDS: Metoprolol Tartrate 25 MG TABLET PO (09:33)
[2023-11-09] MEDS: Atorvastatin Calcium 20 MG TABLET PO (09:33)
[2023-11-09] MEDS: Loratadine 10 MG TABLET PO (09:33)
--- NOTE | 2023-11-09 11:03 | PM.PNCARD ---
Subjective Subjective Date of Service: 11/09/23 Interval history: Seen examined at bedside. Feeling better and is on nasal cannula, she was on high-flow oxygen yesterday. Chest x-ray showed mild congestion but definitely improvement in heart failure. Physical Exam Vital Signs: Last Vital Signs Temp 97.4 F 11/09/23 08:00 Pulse 63 11/09/23 09:33 Resp 18 11/09/23 08:00 BP 139/68 11/09/23 09:33 Pulse Ox 96 11/09/23 08:00 O2 Del Method Nasal Cannula 11/09/23 08:00 O2 Flow Rate 2 11/09/23 08:00 FiO2 35 11/08/23 07:40 Oxygen Flow Rate 2 11/06/23 06:18 BMI result Body Mass Index 22.0 GENERAL APPEARANCE: In no acute distress. On nasal cannula. NECK: no carotid bruit, no jugular venous distention. SKIN: no suspicious lesions, warm and dry. HEART: no murmurs, irregular rate and rhythm. LUNGS: Clear to auscultation bilaterally. ABDOMEN: soft, nontender. EXTREMITIES: no edema. Right marques has dressing. PERIPHERAL PULSES: equal. NEUROLOGIC: No gross deficits, AAO X 3 Objective Labs and Meds 11/07/23 05:55 11/09/23 06:42 Lab results: Laboratory Results - last 24 hr 11/09/23 06:42 Sodium 137 Potassium 3.9 Chloride 97 Carbon Dioxide 30 H Anion Gap 14 BUN 18 H Creatinine 0.66 Estim Creat Clear Calc 59.7 Estimated GFR > 60 Random Glucose 96 Calcium 9.7 D B-Natriuretic Peptide 2069 H Imaging Radiologist's impression: Impressions Chest X-Ray 11/08/23 11:03 IMPRESSION: 1. There is pulmonary vascular congestion, without overt pulmonary edema. 2. Very small bilateral pleural effusions are suspected. 3. There are round and linear opacities overlapping the right thorax, for which clinical correlation is recommended. Progress Note: A&P Assessment and plan (1) Cardiomyopathy: Status: Acute (2) NSTEMI (non-ST elevated myocardial infarction): Status: Acute (3) Atrial fibrillation with rapid ventricular response: Status: Acute (4) Congestive heart failure: Status: Acute (5) Congestive heart failure: Status: Acute Plan 78-year-old female presenting for shortness of breath and congestive heart failure in the setting of AFib with RVR. She has diffuse T-wave inversions on EKG with NSTEMI with EF 30% on echocardiography with mid to distal LV dysfunction in a pattern of takotsubo cardiomyopathy versus multivessel disease. Troponin elevation is not consistent with LAD territory infarct and likely diagnosis is takotsubo cardiomyopathy but will require diagnostic angiography to prove that. She is currently on Lovenox for NSTEMI and atrial fibrillation. Clinically euvolemic. Can be transitioned to 40 mg p.o. b.i.d. Lasix. Can change to Toprol-XL 50 mg daily. Adding Jardiance 10 mg daily. Detailed discussion with the patient and family at bedside about next steps including diagnostic angiography. Was on cause discussed. The patient wishes to discuss with her family further to make a decision. In the meantime continue Lovenox. If she decides not to do cardiac catheterization then stop Lovenox and start him on apixaban 5 mg twice a day. Thank you for allowing me to participate in the care of your patient. Please feel free to contact me if you have any questions. Time Spent With Patient Time: Total time managing care of this patient today ____ minutes. Progress Note: Quality Stroke Does the patient have a stroke diagnosis?: No Procedures Date of Service Date of Service: 11/09/23
--- NOTE | 2023-11-09 11:17 | P.PNIM_ITS ---
Subjective Subjective Date of Service: 11/09/23 Interval History: Being followed for new onset atrial fibrillation, congestive heart failure and non ST elevation [place]. Patient had an uneventful night denies shortness of breath, no chest pain, oxygenation 100% on nasal cannula Complaining of constipation. Review of Systems All other system reviewed and negative. Physical Exam 2 Vital Signs: Vital Signs: Last Vital Signs Temp 97.4 F 11/09/23 08:00 Pulse 63 11/09/23 09:33 Resp 18 11/09/23 08:00 BP 139/68 11/09/23 09:33 Pulse Ox 96 11/09/23 08:00 O2 Del Method Nasal Cannula 11/09/23 08:00 O2 Flow Rate 2 11/09/23 08:00 FiO2 35 11/08/23 07:40 Oxygen Flow Rate 2 11/06/23 06:18 BMI result Body Mass Index 22.0 Const: Other: General awake alert x3, resting comfortably in no acute distress. Neck supple,no JVD. CVS regular rate rhythm, Respiratory lungs clear to auscultation, no respiratory distress, no wheeze, no rales Gastrointestinal abdomen soft, non tender, bowel sounds audible, Extremities no edema. Neuro non focal Skin no rash Psych appropriate affect Objective Data Active Medications Acetaminophen (Acetaminophen 325 Mg Tablet) 650 mg PO Q6H PRN PRN Reason: Pain, Mild (Pain Scale 1-3) Last Admin: 11/08/23 09:30 Dose: 650 mg Documented By: NIKUNJ Albuterol Sulfate (Albuterol Sulfate 90 Mcg 8 Gm Inhaler) 2 puff INHALE Q4H PRN PRN Reason: shortness of breath or wheezing Last Admin: 11/08/23 05:18 Dose: 2 puff Documented By: MINDI Aspirin (Aspirin Enteric Coated 81 Mg Tablet.) 81 mg PO DAILY [facility] Last Admin: 11/09/23 09:32 Dose: 81 mg Documented By: CHRISTOPHER Atorvastatin Calcium (Atorvastatin Calcium 20 Mg Tablet) 20 mg PO DAILY [facility] Last Admin: 11/09/23 09:33 Dose: 20 mg Documented By: CHRISTOPHER Empagliflozin (Empagliflozin 10 Mg Tablet) 10 mg PO DAILY [facility] Enoxaparin Sodium (Enoxaparin Sodium 60 Mg/0.6 Ml Syringe) 60 mg SUBCUT Q12H [facility] Last Admin: 11/09/23 06:45 Dose: 60 mg Documented By: AJRROD Fluticasone/Vilanterol (Fluticasone/Vilanterol 200/25 Blst.W.Dev) 1 puff INHALE RDAILY [facility] Last Admin: 11/09/23 07:44 Dose: 1 puff Documented By: JOSLYN Furosemide (Furosemide 40 Mg/4 Ml Vial) 80 mg IVPUSH BID@0900,1800 [facility]; Protocol Last Admin: 11/09/23 09:31 Dose: 80 mg Documented By: CHRISTOPHER Loratadine (Loratadine 10 Mg Tablet) 10 mg PO DAILY [facility] Last Admin: 11/09/23 09:33 Dose: 10 mg Documented By: CHRISTOPHER Lorazepam (Lorazepam 0.5 Mg Tablet) 0.5 mg PO Q8H PRN PRN Reason: anxiety Last Admin: 11/08/23 20:22 Dose: 0.5 mg Documented By: JARROD Losartan Potassium (Losartan Potassium 25 Mg Tablet) 25 mg PO DAILY [facility]; Protocol Last Admin: 11/09/23 09:32 Dose: 25 mg Documented By: CHRISTOPHER Metoprolol Tartrate (Metoprolol Tartrate 25 Mg Tablet) 25 mg PO TID [facility]; Protocol Last Admin: 11/09/23 09:33 Dose: 25 mg Documented By: CHRISTOPHER Ondansetron HCl (Ondansetron Hcl 4 Mg/2 Ml Vial) 4 mg IVPUSH Q8H PRN PRN Reason: Nausea and Vomiting Prednisone (Prednisone 5 Mg Tablet) 5 mg PO Q48H [facility] Last Admin: 11/09/23 09:32 Dose: 5 mg Documented By: CHRISTOPHER Senna (Sennosides 8.6 Mg Tablet) 17.2 mg PO BEDTIME PRN PRN Reason: Constipation Last Admin: 11/08/23 20:35 Dose: 17.2 mg Documented By: JARROD Sodium Chloride (0.9 % Sodium Chloride Flush 3 Ml Syringe) [facility] Last Admin: 11/09/23 09:32 Dose: 3 ml Documented By: CHRISTOPHER Tiotropium [place] (Tiotropium [place] 2.5 Mcg 1 Puff/2.5 Mcg Mist.Inhal) 2 puff INHALE RDAILY [facility] Last Admin: 11/09/23 07:44 Dose: 2 puff Documented By: JOSLYN Labs 11/07/23 05:55 11/09/23 06:42 Labs: Laboratory Results - last 24 hr 11/09/23 06:42 Anion Gap 14 Estim Creat Clear Calc 59.7 Estimated GFR > 60 Random Glucose 96 Calcium 9.7 D B-Natriuretic Peptide 9 H Microbiology Microbiology Results: Microbiology 11/06/23 07:36 Blood Culture - Preliminary Blood - Venous No growth after 48 hours. 11/06/23 07:13 Blood Culture - Preliminary Blood - Venous No growth after 48 hours. Assessment and Plan (1) NSTEMI (non-ST elevated myocardial infarction): Status: Acute (2) Atrial fibrillation with rapid ventricular response: Status: Acute (3) Acute hypoxemic respiratory failure: Status: Acute Plan 78-year-old female with history of severe COPD, GERD, cervical radiculopathy, hypertension, mood disorder, hyperlipidemia presents to the ED earlier today for evaluation of progressively worsening dyspnea both with exertion and at rest, orthopnea, and overall decline. She was hospitalized from 08/26-08/27 for COPD exacerbation and was discharged on 2 L supplemental O2 via nasal cannula. She will be admitted for further management of CHF exacerbation with new onset atrial fibrillation with rvr and nstemi. #New onset atrial fibrillation with RVR -remains in atrial fibrillation with controlled ventricular rate, will continue 60 mg therapeutic Lovenox b.i.d. for anticoagulation -Loaded with digoxin 250 mcg q.6h x3. on metoprolol 25 mg q.8h p.o. -echocardiogram shows moderately decreased LV systolic function with EF 30-35% and mildly increased left ventricular wall thickness. There is also akinesis of the entire apex, mid anterior, mid inferior, mid anterolateral, mid inferoseptal, mid anteroseptal, and mid inferolateral segments -TSH, magnesium within normal limits -will change metoprolol to Toprol-XL 50 mg daily, continue tele monitoring # new onset congestive heart failure with reduced EF, with acute on chronic hypoxemic respiratory failure -on examination noted to have clear lungs, no leg edema ,no JVD -follow strict I&O,daily weights,cardiac diet, fluid restrictions 1.5 L -stable magnesium, potassium and renal function, follow renal function, lytes, -initially required BiPAP in the ED, then transitioned to high-flow, now on nasal cannula 4 L with stable oxygenation, will obtain home O2 eval Repeat chest x-ray 11/07 shows pulmonary vascular congestion without overt pulmonary edema, improved from before. BNP bumped to 2068 from 686 , patient clinically stable question due to cardiomyopathy -case discussed with Cardiology will DC IV Lasix and transition to by mouth Lasix 40 mg b.i.d. # NSTEMI -EKG shows new onset atrial fibrillation, rate 112, new T-wave inversions V3-V6 but no ST or depressions. Repeat EKG 11/06 shows deeper T-wave inversions in lateral, anterior, and inferior leads -initial trop 43.6 --> 160.9 -->355.3 -continue therapeutic Lovenox b.i.d., metoprolol,ASA 81 mg daily and Lipitor -per Cardiology question takotsubo cardiomyopathy, cardio recommend cardiac catheterization patient is going to discuss with family, patient declined cardiac catheterization then she can be started on Eliquis 5 mg b.i.d. # hypertension -continue losartan and amlodipine stable blood pressure # COPD no acute exacerbation noted continue maintenance inhalers, albuterol p.r.n. # chronic leukocytosis WBC improved -suspect related to long-term steroid use rather than acute infection # mood disorder -continue home meds DVT prophylaxis-therapeutic Lovenox Full code Patient requires ongoing inpatient stay secondary to volume overload from congestive heart failure and also requires further management with parental anticoagulation for NSTEMI with expert consultation and probable transfer to tertiary care facility Quality Stroke Does the patient have a stroke diagnosis?: No VTE Prior VTE?: No VTE Risk Level:: Medical - moderate - high VTE Device Contraindication: Treatment Not Indicated VTE Drug Contraindication: Treatment Not Indicated
[2023-11-09] MEDS: Empagliflozin 10 MG TABLET PO (12:42)
[2023-11-09] MEDS: polyethylene glycoL 3350 17 GM POWD.PACK PO (14:37)
[2023-11-09] MEDS: LORazepam 0.5 MG TABLET PO (20:01)
[2023-11-10] VITALS (8 sets, daily range): BP systolic 119–133; BP diastolic 58–68; PULSE 72–87; RESP 18–20; TEMP 36.1–36.7; O2SAT 96–100
[2023-11-10] MEDS: Enoxaparin Sodium 60 MG/0.6 ML SYRINGE SUBCUT (05:26)
[2023-11-10 06:43] LABS: Anion Gap 16 (12-20); Blood Urea Nitrogen 15 mg/dL (9-16); Calcium 9.2 mg/dL (8.4-10.2); Carbon Dioxide 30 mmol/L (22-29); Chloride 99 mmol/L (96-108); Creatinine Clr Calc Pharmacy 57.9; Estimated Glomerular Filt Rate > 60; Glucose Random 93 mg/dL (60-115); Potassium 3.7 mmol/L (3.3-5.1); Sodium 141 mmol/L (135-145)
[2023-11-10] MEDS: Tiotropium Bromide 2.5 mcg 1 PUFF/2.5 MCG MIST.INHAL 2 PUFF INHALE (07:33)
[2023-11-10] MEDS: Fluticasone/Vilanterol 200/25 BLST.W.DEV 1 PUFF INHALE (07:33)
[2023-11-10] MEDS: polyethylene glycoL 3350 17 GM POWD.PACK PO (09:28)
[2023-11-10] MEDS: Losartan Potassium 25 MG TABLET PO (09:28)
[2023-11-10] MEDS: Atorvastatin Calcium 20 MG TABLET PO (09:29)
[2023-11-10] MEDS: Aspirin Enteric Coated 81 MG TABLET.DR PO (09:29)
[2023-11-10] MEDS: Loratadine 10 MG TABLET PO (09:29)
[2023-11-10] MEDS: Furosemide 40 MG TABLET PO (09:29)
[2023-11-10] MEDS: Empagliflozin 10 MG TABLET PO (09:30)
[2023-11-10] MEDS: Metoprolol Succinate ER 50 MG TAB.ER.24H PO (09:30)
[2023-11-10] MEDS: 0.9 % Sodium Chloride Flush 3 ML SYRINGE IVFLUSH (09:30)
--- NOTE | 2023-11-10 09:35 | P.PNCA_ITS ---
Subjective Subjective Date of Service: 11/10/23 Interval history: Seen examined at bedside. Feeling good. Physical Exam Vital Signs: Last Vital Signs Temp 98.0 F 11/10/23 07:13 Pulse 87 11/10/23 09:30 Resp 18 11/10/23 07:35 BP 126/68 11/10/23 09:30 Pulse Ox 98 11/10/23 07:13 O2 Del Method Nasal Cannula 11/10/23 07:13 O2 Flow Rate 4 11/10/23 07:13 FiO2 35 11/08/23 07:40 Oxygen Flow Rate 2 11/06/23 06:18 BMI result Body Mass Index 22.0 GENERAL APPEARANCE: In no acute distress. On nasal cannula. NECK: no carotid bruit, no jugular venous distention. SKIN: no suspicious lesions, warm and dry. HEART: no murmurs, irregular rate and rhythm. LUNGS: Clear to auscultation bilaterally. ABDOMEN: soft, nontender. EXTREMITIES: no edema. Right marques has dressing. PERIPHERAL PULSES: equal. NEUROLOGIC: No gross deficits, AAO X 3 Objective Labs and Meds 11/07/23 05:55 11/10/23 05:46 Lab results: Laboratory Results - last 24 hr 11/10/23 05:46 Sodium 141 Potassium 3.7 Chloride 99 Carbon Dioxide 30 H Anion Gap 16 BUN 15 Creatinine 0.68 Estim Creat Clear Calc 57.9 Estimated GFR > 60 Random Glucose 93 Calcium 9.2 Progress Note: A&P Assessment and plan (1) Cardiomyopathy: Status: Acute (2) NSTEMI (non-ST elevated myocardial infarction): Status: Acute (3) Atrial fibrillation with rapid ventricular response: Status: Acute (4) Congestive heart failure: Status: Acute (5) Congestive heart failure: Status: Acute Plan 78-year-old female presenting for shortness of breath and congestive heart failure in the setting of AFib with RVR. She has diffuse T-wave inversions on EKG with NSTEMI with EF 30% on echocardiography with mid to distal LV dysfunction in a pattern of takotsubo cardiomyopathy versus multivessel disease. Troponin elevation is not consistent with LAD territory infarct and likely diagnosis is takotsubo cardiomyopathy but will require diagnostic angiography to prove that. She is currently on Lovenox for NSTEMI and atrial fibrillation. Clinically euvolemic. Can be transitioned to 40 mg p.o. b.i.d. Lasix. Can change to Toprol-XL 50 mg daily. Adding Jardiance 10 mg daily. Detailed discussion with the patient about cardiac catheterization. After discussion with the family today she has decided to pursue diagnostic angiogram. We will transferred to [facility]. In the meantime she will continue Lovenox and postprocedure we will transition her to apixaban. Thank you for allowing me to participate in the care of your patient. Please feel free to contact me if you have any questions. Time Spent With Patient Time: Total time managing care of this patient today ____ minutes. Progress Note: Quality Stroke Does the patient have a stroke diagnosis?: No Procedures Date of Service Date of Service: 11/10/23
[2023-11-10] MEDS: LORazepam 0.5 MG TABLET PO (09:36)
--- NOTE | 2023-11-10 10:52 | P.DS_ITS ---
DS: Providers Provider Date of Service: 11/10/23 Date of admission: 11/06/23 14:25 Date of discharge: 11/10/23 Primary care physician: Parul Williamson MD Consults: 11/06/23 14:28 Consult to Cardiology Routine Consulting Provider: [facility] Cardi[facility] Services Reason for consultation: new onset afib rvr, nstemi, chf Has provider been notified: Yes 11/06/23 18:54 Consult to Wound Care Routine Reason for consultation: Wound to Right marques DS: Diagnosis Discharge Diagnosis (1) Cardiomyopathy: Status: Acute (2) NSTEMI (non-ST elevated myocardial infarction): Status: Acute (3) Atrial fibrillation with rapid ventricular response: Status: Acute (4) Acute on chronic hypoxic respiratory failure: Status: Acute (5) Acute HFrEF (heart failure with reduced ejection fraction): Status: Acute DS: Summary Hospital Course Hospital Course: From the history and physical by the admitting hospitalist, MARQUES Guan, 11/06/23: 78-year-old female with history of severe COPD, GERD, cervical radiculopathy, hypertension, mood disorder, hyperlipidemia presents to the ED earlier today for evaluation of progressively worsening dyspnea both with exertion and at rest, orthopnea, and overall decline. She was hospitalized from 08/26-08/27 for COPD exacerbation and was discharged on 2 L supplemental O2 via nasal cannula. She and her daughters who were at bedside report that since then, patient has not felt well and has generally declined with weakness and worsening dyspnea. She feels over the last 5 days has been considerably worse with increased dyspnea. She has also had a chronic dry cough but denies any fevers, chills, sick contacts, sore throat, congestion. No abdominal pain, nausea, vomiting, urinary symptoms, lightheadedness, palpitations, or chest pain at the time of exam. However while in the ED was reporting episodes of chest pain that were nonradiating and responded well to nitro paste. On arrival, patient tachypneic and was briefly placed on BiPAP for increased work of breathing and hypoxia with volume overload. She was weaned to high-flow oxygen but was still experiencing difficulty breathing especially when speaking and was demonstrating increased work of breathing. She was again placed on BiPAP and weaned to CPAP by recreation therapy teacher. She was also tachycardic to 127 found to be in new onset atrial fibrillation. Blood pressure stable no hypotension. Hematology studies re vealed a white blood cell count of 16.9. Renal function baseline, electrolyte levels normal. BNP 686. CRP 0.55. Initial troponin 43.6, repeat 160.9, repeat 355.3. EKG shows atrial fibrillation with RVR, rate 112 with T-wave inversions noted V3-V6 but no ST or depressions. CXR shows increased central bronchovascular markings and coarse lung markings likely related to pulmonary edema. Given leukocytosis and tachycardia, we will check procalcitonin given associated cough though suspect this is more likely related to CHF exacerbation rather than pneumonia/sepsis. In the ED, given DuoNeb, 40 mg Lasix, Ativan, nitro paste, diltiazem, 60 mg methylprednisolone, aspirin, 0.25 mg digoxin and 60 mg therapeutic Lovenox. She was admitted to the [facility] for new-onset AF/RVR and NSTEMI and also found to have HFrEF with regional wall motion abnormalities. She had diffuse T-wave inversions on EKG with hs-troponin elevation from 43.6 to 355.3 ng/L. She was started on enoxaparin for anticoagulation. chocardiogram showed moderately decreased LV systolic function with EF 30-35% and mildly increased left ventricular wall thickness. There was also akinesis of the entire apex, mid anterior, mid inferior, mid anterolateral, mid inferoseptal, mid anteroseptal, and mid inferolateral segments. Rate control of atrial fibrillation was achieved with digoxin loading then metoprolol succinate. She was diuresed with IV furosemide and was net negative -2.06L over the course of admission; she was transitioned to PO furosemide. In the ED, she had required biPAP for respiratory failure, but was transitioned to oxygen via nasal cannula at 2 Lpm. Cardiology was consulted and suspected takotsubo cardiomyopathy versus multivessel disease. She was transferred to [facility] for cardiac catheterzation. Time Attestation Discharge Coordination Time (in mins): 45 Quality: Safe Use of Opioids Does Pt have an Active Cancer Diagnosis on the Problem List?: No Quality: Stroke Does the patient have a stroke diagnosis?: No Physical Exam Vital Signs: Vital Signs: Last Vital Signs Temp 98.0 F 11/10/23 07:13 Pulse 87 11/10/23 09:30 Resp 18 11/10/23 07:35 BP 126/68 11/10/23 09:30 Pulse Ox 98 11/10/23 07:13 O2 Del Method Nasal Cannula 11/10/23 07:13 O2 Flow Rate 4 11/10/23 07:13 FiO2 35 11/08/23 07:40 Oxygen Flow Rate 2 11/06/23 06:18 BMI result Body Mass Index 22.0 Gen: in no acute distress HEENT: sclera anicteric, moist mucus membranes Neck: supple Lungs: clear to auscultation bilaterally Heart: irregular, no murmurs Abd: soft, non-tender, non-distended Ext: no edema Skin: warm/well-perfused Neuro: alert and oriented x3, no focal findings Psych: appropriate affect DS: Data Data Completed and Pending Completed studies during hospitalization [Text1]: Laboratory Results WBC 11.6 X10*3/uL (4.8-10.8) H 11/07/23 05:55 RBC 3.44 X10*6/uL (4.20-5.50) L 11/07/23 05:55 Hgb 11.1 g/dl (12.0-16.0) L 11/07/23 05:55 Hct 32.9 % (37.0-47.0) L 11/07/23 05:55 MCV 95.6 fL (80.0-98.0) 11/07/23 05:55 MCH 32.3 pg (27.0-33.0) 11/07/23 05:55 MCHC 33.7 g/dl (31.0-35.0) 11/07/23 05:55 RDW 13.8 % (11.0-16.0) 11/07/23 05:55 Plt Count 232 X10*3/uL (160-400) 11/07/23 05:55 MPV 9.4 fL (9.4-12.3) 11/07/23 05:55 Immature Gran % (Auto) 0.9 % (0.0-0.4) H 11/07/23 05:55 Neut % (Auto) 83.8 % (45-73) H 11/07/23 05:55 Lymph % (Auto) 7.8 % (20-40) L 11/07/23 05:55 Cecil % (Auto) 7.3 % (2-11) 11/07/23 05:55 Eos % (Auto) 0.0 % (0-4) 11/07/23 05:55 Baso % (Auto) 0.2 % (0-2) 11/07/23 05:55 Lymph # (Auto) 0.9 X10*3/uL (1.2-4.9) L 11/07/23 05:55 Cecil # (Auto) 0.9 X10*3/uL (0.1-1.2) 11/07/23 05:55 Eos # (Auto) 0.0 X10*3/uL (0.0-0.4) 11/07/23 05:55 Baso # (Auto) 0.0 X10*3/uL (0.0-0.2) 11/07/23 05:55 Abs Immat Gran (auto) 0.10 X10*3/uL (0.00-0.03) H 11/07/23 05:55 Absolute Neuts (auto) 9.7 x10*3/uL (2.0-8.3) H 11/07/23 05:55 Absolute Nucleated RBC 0.000 X10*3/uL (0.0-0.012) 11/07/23 05:55 Nucleated RBC % (auto) 0.0 /100WBC (0.0-0.2) 11/07/23 05:55 Hold Purple Top SEE NOTE 11/08/23 06:13 PT 11.2 SEC (11.1-13.3) 11/06/23 07:46 INR 0.9 (0.9-1.1) 11/06/23 07:46 VBG pH 7.35 (7.32-7.43) 11/06/23 07:22 VBG pCO2 43 mmHg 11/06/23 07:22 VBG pO2 127 mmHg 11/06/23 07:22 VBG HCO3 24 mmol/L (22-26) 11/06/23 07:22 VBG O2 Saturation 99.0 % 11/06/23 07:22 VBG Base Excess -0.8 mmol/L 11/06/23 07:22 Sodium 141 mmol/L (135-145) 11/10/23 05:46 Potassium 3.7 mmol/L (3.3-5.1) 11/10/23 05:46 Chloride 99 mmol/L (96-108) 11/10/23 05:46 Carbon Dioxide 30 mmol/L (22-29) H 11/10/23 05:46 Anion Gap 16 (12-20) 11/10/23 05:46 BUN 15 mg/dL (9-16) 11/10/23 05:46 Creatinine 0.68 mg/dL (0.5-1.4) 11/10/23 05:46 Estim Creat Clear Calc 57.9 11/10/23 05:46 Estimated GFR > 60 11/10/23 05:46 Random Glucose 93 mg/dL (60-115) 11/10/23 05:46 Lactic Acid 1.5 mmol/L (0.5-2.0) 11/06/23 07:13 Calcium 9.2 mg/dL (8.4-10.2) 11/10/23 05:46 Magnesium 1.9 mg/dL (1.6-2.6) 11/08/23 06:13 Total Bilirubin 0.8 mg/dL (0.0-1.0) 11/06/23 07:36 Direct Bilirubin 0.4 mg/dL (0.0-0.5) 11/06/23 07:36 AST 30 U/L (5-31) 11/06/23 07:36 ALT 31 U/L (0-31) 11/06/23 07:36 Alkaline Phosphatase 129 U/L (39-117) H 11/06/23 07:36 Troponin I High Sens 355.3 ng/L (<3.5-17.0) H* D 11/06/23 16:02 C-Reactive Protein 0.55 mg/dL (< or = 0.50) H 11/06/23 07:36 B-Natriuretic Peptide 2069 pg/mL (<100) H 11/09/23 06:42 Total Protein 7.2 g/dL (6.5-8.0) 11/06/23 07:36 Albumin 4.3 g/dL (3.5-5.0) 11/06/23 07:36 Procalcitonin 0.13 ng/mL 11/06/23 16:02 TSH 1.54 uIU/mL (0.32-4.0) 11/06/23 07:36 Influenza Type A (PCR) NEGATIVE (Negative) 11/06/23 07:46 Influenza Type B (PCR) NEGATIVE (Negative) 11/06/23 07:46 RSV RNA Qual (PCR) NEGATIVE (Negative) 11/06/23 07:46 SARS-CoV-2 RNA (RT-PCR) NEGATIVE (Negative) 11/06/23 07:46 Impressions Chest X-Ray 11/08/23 11:03 IMPRESSION: 1. There is pulmonary vascular congestion, without overt pulmonary edema. 2. Very small bilateral pleural effusions are suspected. 3. There are round and linear opacities overlapping the right thorax, for which clinical correlation is recommended. TTE 11/06/23 - Normal left ventricular cavity size. There is mildly increased left ventricular wall thickness. The left ventricular systolic function is moderately decreased. The visually estimated ejection fraction is between 30-35%. - The entire apex, the mid anterior, mid inferior, mid anterolateral, mid inferoseptal, mid anteroseptal, and mid inferolateral segments are akinetic. - Normal right ventricular cavity size and systolic function. - Significantly elevated right atrial pressure. Moderate to severe pulmonary hypertension is present. Discharge Plan Discharge Anticipated Discharge Date/Time: 11/10/23 10:48 Patient Disposition: [facility] Discharge Diagnosis: new-onset atrial fibrillation acute heart failure with reduced ejection fraction/cardiomyopathy NSTEMI acute-chronic hypoxic respiratory failure Referrals: Parul Cartagena MD [Primary Care Provider] - 1 Week Discharge Medications: New metoprolol succinate 50 mg Tablet Extended Release 24 Hr 50 mg PO DAILY Qty: 1 0RF Protocol: Hold for SBP/HR < HOLD for SBP < : 90 HOLD for HR < : 60 aspirin 81 mg Tablet,Delayed Release (Dr/Ec) 81 mg PO DAILY Qty: 1 0RF enoxaparin 60 mg/0.6 mL Syringe 60 mg subcut Q12H Qty: 1 0RF furosemide 40 mg Tablet 40 mg PO BID@0900,1800 Qty: 1 0RF Protocol: Hold for SBP< HOLD for SBP < : 90 Jardiance 10 mg Tablet 10 mg PO DAILY Qty: 1 0RF Continued losartan 25 mg tablet 25 mg PO DAILY 90 Days Qty: 90 3RF lorazepam 0.5 mg tablet 0.5 mg PO Q8H PRN (Reason: anxiety) 30 Days Qty: 90 0RF Spiriva Respimat 2.5 mcg/actuation mist 2 puff inhalation DAILY rosuvastatin 5 mg tablet 5 mg PO DAILY prednisone 5 mg tablet 5 mg PO Q48H fexofenadine 180 mg tablet 180 mg PO DAILY Qty: 90 0RF ProAir RespiClick 90 mcg/actuation aerosol powdr breath activated 2 inh inhalation Q4-6H PRN (Reason: shortness of breath or wheezing) Qty: 1 2RF cholecalciferol (vitamin D3) 50 mcg (2,000 unit) capsule 50 mcg PO DAILY folic acid 1 mg tablet 1 mg PO DAILY vitamin B complex [B Complex-Vitamin B12] Tablet 1 tab PO DAILY dnzuafzs-bgzy-bueom-oreg-capry 100 mg-150 mg- 50 mg-150 mg capsule 1 cap PO 3XW fluticasone furoate-vilanterol [Breo Ellipta] 200-25 mcg/dose blister with device 1 inh inhalation DAILY 30 Days Qty: 60 2RF Discontinued amlodipine 5 mg tablet 5 mg PO DAILY Qty: 90 1RF ibuprofen 800 mg tablet 800 mg PO Q8H PRN (Reason: pain) 30 Days Qty: 30 0RF Discharge Orders: Discharge Order (Routine); Ordered 11/10/23 Ordered By: Dusty Bello Diet: Advance to usual diet Activity on Discharge: As tolerated Stand Alone Forms: Patient Portal Discharge page Print Language: French Care Plan Goals: diagnosis and treatment of acute coronary syndrome Health Concerns: new-onset atrial fibrillation acute heart failure with reduced ejection fraction/cardiomyopathy NSTEMI acute-chronic hypoxic respiratory failure Plan of Treatment: transfer to [facility] for cardiac catheterization; Cardiology follow-up to be arranged Assessment: See Discharge Summary. Patient Instructions: Heart Catheterization (DC)
== END 2023-11-10 12:00 | disposition short-term general hospital (02) | DRG 280 ==
LOC: HO.ED 13:47 → HO.EDOVER 14:33 → HO.IMC 17:02
PROVIDERS: Hospitalist; Admitting Provider Physician Assistant; Emergency Provider Emergency Medicine; PCP Internal Medicine; Visit Provider Family Medicine
DX: I11.0 Hypertensive heart disease with heart failure (principal); I50.21 Acute systolic (congestive) heart failure; I21.4 Non-ST elevation (NSTEMI) myocardial infarction; J96.21 Acute and chronic respiratory failure with hypoxia; I48.91 Unspecified atrial fibrillation; J44.9 Chronic obstructive pulmonary disease, unspecified; I51.81 Takotsubo syndrome; K21.9 Gastro-esophageal reflux disease without esophagitis; I35.1 Nonrheumatic aortic (valve) insufficiency; E78.5 Hyperlipidemia, unspecified; F39 Unspecified mood [affective] disorder; Z20.822 Contact with and (suspected) exposure to COVID-19; Z87.891 Personal history of nicotine dependence; Z99.81 Dependence on supplemental oxygen; Z79.51 Long term (current) use of inhaled steroids; Z79.52 Long term (current) use of systemic steroids; Z79.82 Long term (current) use of aspirin; Z79.899 Other long term (current) drug therapy
CPT/HCPCS: 0241U; 36415; 71045; 80048; 80076; 82803; 83605; 83735; 83880; 84145; 84443; 84484; 85025; 85610; 86140; 87040; 93005; 93306; 94640; 94799; 99285; J1160; J1650; J1940; J2060; J2405; J2919; J3475; Q9957

== ENCOUNTER → 2023-11-06 06:50 | Outpatient (BNV) | payer MEDICARE, SELFPAY | PROVIDERS: Emergency Provider Emergency Medicine; PCP Internal Medicine; Visit Provider Internal Medicine Cardiovascular Disease | DX: I50.9 Heart failure, unspecified (principal); I48.91 Unspecified atrial fibrillation; R79.89 Other specified abnormal findings of blood chemistry; I27.20 Pulmonary hypertension, unspecified; I35.1 Nonrheumatic aortic (valve) insufficiency; I36.1 Nonrheumatic tricuspid (valve) insufficiency | CPT/HCPCS: 93010; 93306; 99223; 99233 ==

== ENCOUNTER 2023-11-06 14:25 | Outpatient (BNV) | payer MEDICARE, SELFPAY | END 2023-11-07 08:00 | PROVIDERS: Admitting Provider Physician Assistant; Emergency Provider Emergency Medicine; PCP Internal Medicine; Visit Provider Internal Medicine Cardiovascular Disease | DX: R06.02 Shortness of breath (principal); I48.91 Unspecified atrial fibrillation; I44.4 Left anterior fascicular block | CPT/HCPCS: 93010 ==

== ENCOUNTER → 2023-11-06 14:25 | Outpatient (BNV) | payer MEDICARE, SELFPAY | PROVIDERS: Admitting Provider Physician Assistant; Emergency Provider Emergency Medicine; PCP Internal Medicine; Visit Provider Physician Assistant | DX: I42.9 Cardiomyopathy, unspecified (principal); I21.4 Non-ST elevation (NSTEMI) myocardial infarction; I48.91 Unspecified atrial fibrillation; J96.21 Acute and chronic respiratory failure with hypoxia; I50.21 Acute systolic (congestive) heart failure | CPT/HCPCS: 99223; 99232; 99233; 99239 ==

== ENCOUNTER → 2023-11-11 23:59 | Outpatient (BNV) | payer MEDICARE, SELFPAY | PROVIDERS: PCP Internal Medicine; Visit Provider Internal Medicine Cardiovascular Disease | DX: I21.4 Non-ST elevation (NSTEMI) myocardial infarction (principal); I42.9 Cardiomyopathy, unspecified | CPT/HCPCS: 93458; 99152 ==

== ENCOUNTER 2023-11-19 12:21 | Outpatient (AMB) | payer MEDICARE, SELFPAY ==
--- NOTE | 2023-11-19 12:22 | A.OFFPC_ITS ---
Vital Signs 11/19/23 12:24 Height 5 ft 4 in Weight 116 lb BMI 19.9 BP 110/60 Blood Pressure Location Lt brachial Position Sitting Pulse 76 Pulse Source Pulse Oximeter Pulse Oximetry (%) 98 Oxygen Delivery Method Room Air Intake Visit Reasons: [facility] discharge follow up Intake Note: Patient here for [facility] discharge follow up 11/12/23 World Geography Teacher Required: No Accompanied by: Daughter Allergies Sulfa (Sulfonamide Antibiotics) Allergy (Intermediate, Verified 11/19/23 12:49) nausea, vomiting Medication List - Last Reconciled 11/19/23 by Parul Williamson MD albuterol sulfate 90 mcg/actuation (ProAir RespiClick) 2 inhalations inhalation Q4-6H PRN apixaban (Eliquis) 5 mg PO BID cholecalciferol (vitamin D3) 50 mcg PO DAILY dapagliflozin propanediol (Farxiga) 10 mg PO DAILY fluticasone furoate-vilanterol 200-25 mcg/dose (Breo Ellipta) 1 inh inhalation DAILY 30 days folic acid 1 mg PO DAILY furosemide 40 mg See Protocol PO BID@0900,1800 lorazepam 0.5 mg PO Q8H PRN 30 days losartan 25 mg PO DAILY 90 days metoprolol succinate ER 100 mg PO DAILY montelukast 10 mg PO DAILY rosuvastatin 5 mg PO DAILY tiotropium bromide 2.5 mcg/actuation (Spiriva Respimat) 2 puffs inhalation DAILY vitamin B complex (B Complex-Vitamin B12 tablet) 1 tab PO DAILY Tobacco use date assessed: 09/04/23 Fall risk assessment: 1 Fall in past year Last assessed Fall Risk: 11/19/23 Dental Screening Dental Screen Date: 11/19/23 Did you have a dental visit in the last 12 months?: No Did you have a dental problem in the last 6 months where you did not have access to dental care?: No Was dental information given to patient?: Patient declined HPI HPI Comments History of Present Illness Details This is a 78-year-old female with COPD, congestive heart failure, atrial fibrillation with rapid ventricular response and generalized anxiety disorder that comes today accompanied by daughter Brii for hospital discharge follow-up with discharge date of 11/11/2023 due to non-STEMI requiring cardiac catheterization done November 10. She went to [facility] November 05 and was admitted due to acute hypoxic respiratory failure. She was hospitalized from August 26 08/02/2026 for COPD exacerbation and was discharged on 2 L of oxygen which has been using. At ER she was complaining chest pain that responded to nitro. She was placed on BiPAP and then wean off. Was tachycardic and found to have new onset atrial fibrillation with rapid ventricular response. Troponins were elevated and she was diagnosed with non-STEMI. At ED she was given Lasix, Ativan, diltiazem, methylprednisolone, aspirin, digoxin and Lovenox as well as DuoNeb. She was admitted to [facility] for new onset atrial fibrillation with rapid ventricular response and non-STEMI. Had echocardiogram showing 30-35% of ejection fraction with mildly increased left ventricular wall thickness which also show congestive heart failure exacerbation. Chest x-ray showing pulmonary edema. Heart rate control was achieved with digoxin and then switch to metoprolol. She had diuresis of 2.6 L with IV furosemide over the course of admission. She was transferred to [facility] 11/10/2023 and discharged 11/11/2023. At the moment she has 1.5 L of oxygen via nasal cannula and saturating 95%. She waits herself every day and I advised her to do furosemide 40 mg tomorrow and then 20 mg daily. Does have mild bilateral decrease in breath sounds today but no leg swelling. On chronic anticoagulation with Eliquis and denies any active bleeding. She use lorazepam for her anxiety and I advised her to wean herself of from 3 times a day to twice a day for 2-3 days and then try once a day. [facility] Medical History (Updated 11/19/23 @ 14:59 by Parul Williamson MD) Acute on chronic hypoxic respiratory failure Acute HFrEF (heart failure with reduced ejection fraction) Chronic lung disease Skin lesion Dyslipidemia Cough due to DAISY inhibitor Neck pain GERD (gastroesophageal reflux disease) Aortic regurgitation Right hand pain Leg edema COPD (chronic obstructive pulmonary disease) Allergic rhinitis Anxiety Hypertension Surgical History Carpal tunnel syndrome, right History of bilateral cataract extraction History of partial hysterectomy Family History Father Medical history unknown Mother Medical history unknown Social History Household Members: None Housing: House Do you presently have visiting nurse or other home services: No Alcohol intake: current Alcohol intake frequency: holidays/special occasions only Alcohol type: other Patient Tobacco Use Status: Former Tobacco user Tobacco use type: Cigarette e-Cigarette/Vaping Use: Never Used Second Hand Smoke Exposure: No Advance Directives Date on File: 08/25/20 service: No Current occupational status: retired Cognitive needs: No Hearing needs: No Vision needs: No Questionnaire PHQ-9 Over the last 2 weeks, how often have you been bothered by any of the following problems? 1. Little interest or pleasure in doing things: several days 2. Feeling down, depressed, or hopeless: not at all 3. Trouble falling or staying asleep, or sleeping too much: nearly every day 4. Feeling tired or having little energy: nearly every day 5. Poor appetite or overeating: several days 6. Feeling bad about yourself - or that you are a failure or have let yourself or your family down: not at all 7. Trouble concentrating on things, such as reading the newspaper or watching television: not at all 8. Moving or speaking so slowly that other people could have noticed. Or the opposite - being so fidgety or restless that you have been moving around a lot more than usual: not at all 9. Thoughts that you would be better off or of hurting yourself in some way: not at all Total score: 8 Depression Screening Interpretation: Negative Depression Screening Done: Yes 68171 - PHQ-9 Billing: Yes Source: Developed by Drs. Mick Kovacs, Yasmeen Rey, Louie Warren and colleagues, with an educational louis from [employer]. Thrive Questionnaire Date Thrive assessed: 11/08/23 I am a: Patient What is your living situation today?: I have a steady place to live Within the past 12 months, did the food you bought not last and you didn't have the money to get more?: Never true Within the past 12 months, did you worry whether your food would run out before you got money to buy more?: Never true Do you have trouble paying for medicines?: No Do you have trouble getting transportation to medical appointments?: No Do you have trouble paying your heating and electricity bill?: No Do you have trouble taking care of your child, family member or friend?: No Do you have trouble with day-to-day activities such as bathing, preparing meals, shopping, managing finances, etc.?: No Are you currently unemployed and looking for a job?: No Are you interested in more education?: No Please select the resources that you would like help with: None Currently or been in a relationship where the following occur: no concerns reported THRIVE Score: 0 AUDIT C Alcohol Use Questionnaire (AUDIT-C) 1. How often do you have a drink containing alcohol?: 2-3 times a week 2. How many drinks containing alcohol do you have on a typical day when you are drinking?: 1 or 2 3. How often do you have six or more drinks on one occasion?: Never Total Score: 3 Score Reviewed/Action Taken: Yes CHRISTIAN-7 AMB Questionnaire CHRISTIAN-7 Date CHRISTIAN - 7 assessed: 11/19/23 Feeling nervous, anxious, or on edge: 0 = Not at all Not being able to stop or control worryin = Not at all Worrying too much about different things: 0 = Not at all Trouble relaxin = Not at all Being so restless that it is hard to sit still: 0 = Not at all Becoming easily annoyed or irritable: 0 = Not at all Feeling afraid as if something awful might happen: 0 = Not at all Total CHRISTIAN-7 score (0-4 normal; 5-9 mild; 10-14 moderate; 15-21 severe): 0 Source: Developed by Drs. Mick Kovacs, Yasmeen Rey, Louie Warren and colleagues, with an educational louis from [employer]. CHRISTIAN-7 Assessment Billing CHRISTIAN-7 Assessment Tool: CHRISTIAN-7 Assessment 17038 Review of Systems Const All systems reviewed & are unremarkable except as noted in HPI and below Eyes Reports no additional complaints, Denies change in vision and Denies other visual disturbances Card Denies chest pain at rest, Denies chest pain with activity, Denies edema, Denies irregular heart rhythm, Denies claudication, Denies dyspnea, Denies dyspnea on exertion, Denies orthopnea, Denies paroxysmal nocturnal dyspnea and Denies slow heart rate Resp Denies cough, Denies dyspnea and Denies dyspnea on exertion GI Denies abdominal pain, Denies change in bowel habits, Denies excessive flatus, Denies nausea and Denies vomiting Denies urinary incontinence, Denies urinary hesitancy and Denies urinary urgency Physical exam (Primary Care) Vital Signs: Last Vital Signs Pulse 76 11/19/23 12:24 BP 110/60 11/19/23 12:24 Pulse Ox 98 11/19/23 12:24 Oxygen Delivery Method Room Air 11/19/23 12:24 BMI result Body Mass Index 19.9 Tobacco/Smoking Status: Tobacco use Status Tobacco use date assessed 09/04/23 11/19/23 12:39 Patient Tobacco Use Status Former Tobacco user 11/19/23 12:39 Tobacco use type Cigarette 11/19/23 12:39 e-Cigarette/Vaping Use Never Used 11/19/23 12:39 PHQ-9: PHQ-9 Score PHQ-9: Total score 8 11/19/23 13:15 Depression Screening Interpretation: Negative Thrive Assessment: Date of Thrive Assessment Date Thrive assessed 11/08/23 11/19/23 12:39 Currently or been in a relationship where the following occur: no concerns reported Const General: cooperative and ill appearing chronically HENMT Other: Nasal canula in place Chest Chest palpation & inspection: normal inspection of the chest Resp Effort & Inspection: normal respiratory effort Auscultation: diminished lung sounds bilateral Cardio Jugular venous distension: no JVD Rate: regular rate Rhythm: regular rhythm Heart sounds: S1 normal heart sound present and S2 normal heart sound present Extrem General: Yes full ROM and Yes no pedal edema Assessment and Plan Assessment & Plan (1) Hospital discharge follow-up: Code(s): Z09 - Encounter for follow-up examination after completed treatment for conditions other than malignant neoplasm Plan: Admitted 11/06/2023 at [facility] due to non-STEMI, new onset atrial fibrillation, COPD and congestive heart failure exacerbation. She was placed on IV furosemide and diuresed 2.6 L over the course of elevation. Was placed on BiPAP and then wean off to 2 L of oxygen and saturating over 90%. Was given aspirin and Lovenox. Was transferred to [facility] 11/10/2023 for cardiac catheterization and discharge 11/11/2023 from [facility]. (2) Atrial fibrillation with rapid ventricular response: Code(s): I48.91 - Unspecified atrial fibrillation Plan: Continue Eliquis and metoprolol. The goal is heart rate control. Follow-up with Cardiology. (3) Congestive heart failure: Code(s): I50.9 - Heart failure, unspecified Plan: Continue losartan. Continue diuretics. The goal is to not gain 5 lb in a week. Aware that she has to weight herself daily. (4) COPD (chronic obstructive pulmonary disease): Code(s): J44.9 - Chronic obstructive pulmonary disease, unspecified Plan: Continue Breo and Spiriva. Use rescue inhaler as needed. Follow-up with pulmonology. Continue oxygen via nasal cannula. (5) CHRISTIAN (generalized anxiety disorder): Code(s): F41.1 - Generalized anxiety disorder Plan: Decrease benzodiazepine to twice a day for 2-3 days and then once a day. (6) NSTEMI (non-ST elevated myocardial infarction): Code(s): I21.4 - Non-ST elevation (NSTEMI) myocardial infarction Plan: Continue Eliquis and rosuvastatin. Keep LDL less than 70. Follow-up with Card iology. Orders: Orders Comprehensive Met. Panel Today I42.9 - Cardiomyopathy, unspecified Complete Blood Count Auto Diff Today D64.9 - Anemia, unspecified Medications: New gabapentin 100 mg PO BID 60 caps 0RF 30 days Coding Level of Care Code TCM High MDM <= 14 days Diagnoses Hospital discharge follow-up Z09 Atrial fibrillation with rapid ventricular response I48.91 Congestive heart failure I50.9 COPD (chronic obstructive pulmonary disease) J44.9 CHRISTIAN (generalized anxiety disorder) F41.1 NSTEMI (non-ST elevated myocardial infarction) I21.4 Additional Codes CHRISTIAN-7 Assessment Billing - CHRISTIAN-7 Assessment Tool: CHRISTIAN-7 Assessment [id number] ([id number]) Time Spent (min) 30
[2023-11-19 12:24] VITALS: BP 110/60; PULSE 76; O2SAT 98; BMI 19.9
== END 2023-11-19 13:17 | disposition home or self-care (01) ==
PROVIDERS: PCP Internal Medicine; Visit Provider Internal Medicine
DX: I21.4 Non-ST elevation (NSTEMI) myocardial infarction (principal); I48.91 Unspecified atrial fibrillation; I50.9 Heart failure, unspecified; J44.9 Chronic obstructive pulmonary disease, unspecified; F41.1 Generalized anxiety disorder
CPT/HCPCS: 99214

== ENCOUNTER 2023-11-19 13:27 | Outpatient (REF) | payer MEDICARE, SELFPAY ==
[2023-11-19 13:38] LABS: MANUAL DIFF FLAG NO
[2023-11-19 14:11] LABS: Basophils Absolute Auto 0.1 X10*3/uL (0.0-0.2); Basophils Percent Auto 0.7 % (0-2); Eosinophils Absolute Auto 0.2 X10*3/uL (0.0-0.4); Eosinophils Percent Auto 1.4 % (0-4); Hematocrit 38.4 % (37.0-47.0); Hemoglobin 12.8 g/dl (12.0-16.0); Imm Gran Abs Auto 0.06 X10*3/uL (0.00-0.03); Imm Gran Pct Auto 0.6 % (0.0-0.4); Lymphocytes Absolute Auto 2.1 X10*3/uL (1.2-4.9); Lymphocytes Percent Auto 19.9 % (20-40); Mean Corpuscular HGB Conc 33.3 g/dl (31.0-35.0); Mean Corpuscular Hemoglobin 32.7 pg (27.0-33.0); Mean Platelet Volume 10.3 fL (9.4-12.3); Monocytes Absolute Auto 0.9 X10*3/uL (0.1-1.2); Monocytes Percent Auto 8.3 % (2-11); Neutrophils Absolute Auto 7.2 x10*3/uL (2.0-8.3); Neutrophils Percent Auto 69.1 % (45-73); Platelet Count 297 X10*3/uL (160-400); Red Blood Count 3.92 X10*6/uL (4.20-5.50); Red Cell Distribution Width 14.2 % (11.0-16.0); White Blood Count 10.4 X10*3/uL (4.8-10.8)
[2023-11-19 14:57] LABS: Alanine Aminotransferase 42 U/L (0-31); Albumin Level 3.9 g/dL (3.5-5.0); Alkaline Phosphatase 126 U/L (39-117); Anion Gap 17 (12-20); Aspartate Amino Transferase 30 U/L (5-31); Bilirubin Total 0.6 mg/dL (0.0-1.0); Blood Urea Nitrogen 18 mg/dL (9-16); Calcium 9.5 mg/dL (8.4-10.2); Carbon Dioxide 26 mmol/L (22-29); Chloride 101 mmol/L (96-108); Estimated Glomerular Filt Rate > 60; Glucose Random 102 mg/dL (60-115); Potassium 3.7 mmol/L (3.3-5.1); Sodium 140 mmol/L (135-145); Total Protein 6.6 g/dL (6.5-8.0)
== END 2023-11-19 13:28 | disposition home or self-care (01) ==
LOC: HO.LAB 13:27
PROVIDERS: PCP Internal Medicine; Visit Provider Internal Medicine
DX: I42.9 Cardiomyopathy, unspecified (principal); D64.9 Anemia, unspecified
CPT/HCPCS: 36415; 80053; 85025

== ENCOUNTER 2023-12-02 08:10 | Outpatient (AMB) | payer MEDICARE, SELFPAY ==
[2023-12-02 08:19] VITALS: BP 108/62; PULSE 64; BMI 20.9
--- NOTE | 2023-12-02 08:19 | A.OFFVIS_ITS ---
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 Required: No Sample Hand: Sample Hand Present Allergies Sulfa (Sulfonamide Antibiotics) Allergy (Intermediate, Verified 11/19/23 12:49) nausea, vomiting Medication List - Last Reconciled 12/02/23 by GUERRERO Dyer albuterol sulfate 90 mcg/actuation (ProAir RespiClick) 2 inhalations inhalation Q4-6H PRN apixaban (Eliquis) 5 mg PO BID cholecalciferol (vitamin D3) 50 mcg PO DAILY dapagliflozin propanediol (Farxiga) 10 mg PO DAILY fluticasone furoate-vilanterol 200-25 mcg/dose (Breo Ellipta) 1 inh inhalation DAILY 30 days folic acid 1 mg PO DAILY furosemide 40 mg See Protocol PO DAILY 90 days gabapentin 100 mg PO BID 30 days lorazepam 0.5 mg PO Q8H PRN 30 days losartan 25 mg PO DAILY 90 days metoprolol succinate ER 100 mg PO DAILY montelukast 10 mg PO DAILY rosuvastatin 5 mg PO DAILY tiotropium bromide 2.5 mcg/actuation (Spiriva Respimat) 2 puffs inhalation DAILY vitamin B complex (B Complex-Vitamin B12 tablet) 1 tab PO DAILY HPI HPI 2wek f/up-cardiac cath-KM-pt: Details: Yasmeen is a 78-year-old female with past medical history of hyperlipidemia, moderate AR, COPD, smoking who was recently admitted to [facility] with shortness of breath. She was found to have atrial fibrillation with rapid ventricular response, heart failure, reduced EF. She was treated for heart rate control and put on anticoagulation. She was diuresed and started on daily Lasix. Due to elevated troponin and echocardiogram finding she was transferred to [facility] for cardiac catheterization which showed normal coronaries. Today she reports that she has been improving since her hospital discharge. She still has shortness of breath with activity and wears oxygen with a nasal cannula. She is down to 1.5 L and finds that her oxygen saturations are frequently 100%. She says that prior to her hospitalization she was not wearing oxygen supplement. No PND, orthopnea. She does have pitting edema in her ankles at times. She has been adjusting her diuretic dose due to feeling dry in her mouth and throat. She has not taken any diuretic in the last few days and she is reporting ankle edema. No chest discomfort at rest or with activity. No lightheadedness, presyncope, syncope, falls. Taking all other meds as directed. Right radial catheterization site well healed. Daughter is present. [facility] Medical History Acute on chronic hypoxic respiratory failure Acute HFrEF (heart failure with reduced ejection fraction) Chronic lung disease Skin lesion Dyslipidemia Cough due to DAISY inhibitor Neck pain GERD (gastroesophageal reflux disease) Aortic regurgitation Right hand pain Leg edema COPD (chronic obstructive pulmonary disease) Allergic rhinitis Anxiety Hypertension Surgical History Carpal tunnel syndrome, right History of bilateral cataract extraction History of partial hysterectomy Family History Father Medical history unknown Mother Medical history unknown Social History Household Members: None Housing: House Do you presently have visiting nurse or other home services: No Alcohol intake: current Alcohol intake frequency: holidays/special occasions only Alcohol type: other Patient Tobacco Use Status: Former Tobacco user Tobacco use type: Cigarette e-Cigarette/Vaping Use: Never Used Second Hand Smoke Exposure: No Advance Directives Date on File: 08/25/20 service: No Current occupational status: retired Cognitive needs: No Hearing needs: No Vision needs: No Review of Systems Const All systems reviewed & are unremarkable except as noted in HPI and below ENT Denies dizziness Card Denies chest pain, Denies chest pain at rest, Denies chest pain with activity, Denies rapid heart rate, Denies pedal edema, Denies edema, Denies leg edema, Denies lightheadedness, Denies palpitations, Denies dyspnea, Reports dyspnea on exertion and Denies orthopnea Resp Denies cough, Denies dyspnea and Reports dyspnea on exertion GI Denies hematochezia and Denies change in stool character Musc Reports abnormal gait, Denies limited range of motion, Denies muscle cramps, Denies muscle weakness, Denies numbness, Denies radiating pain into limb, Denies stiffness and Denies tingling Neuro Reports abnormal gait, Denies dizziness, Denies numbness and Denies tingling Endo Denies palpitations Physical Exam Vital Signs: Last Vital Signs Pulse 64 12/02/23 08:19 BP 108/62 12/02/23 08:19 BMI result Body Mass Index 20.9 Const General: cooperative, healthy appearing, comfortable and no acute distress Orientation/consciousness: patient oriented x3 Neck Neck: Yes normal visual inspection and Yes no JVD Resp Effort & Inspection: normal respiratory effort Auscultation: clear to auscultation bilaterally, no rales, no rhonchi and no wheezes Cardio Jugular venous distension: no JVD Rate: regular rate Rhythm: regular rhythm Heart sounds: S1 normal heart sound present, S2 normal heart sound present, no murmurs and no rubs Neuro General: patient oriented x3 Extrem Other: soft pitting edema around ankles Psych Appearance: grossly normal Mental Status: mental status grossly normal Speech and movement: Normal speech and movement present Office Procedures EKG Details: Today, read by me, atrial fibrillation, T-wave inversions inferiorly and V3 through V6, rate 91 [id number], Complete Assessment & Plan Assessment & Plan (1) Atrial fibrillation with rapid ventricular response: Code(s): I48.91 - Unspecified atrial fibrillation Category: Medical Plan: Recent [facility] admission for shortness of breath. Found to have new onset atrial fibrillation with RVR. She was treated for heart rate control and put on metoprolol XL 100 mg daily. She was initially on IV heparin then put on Eliquis 5 mg b.i.d. which is appropriate for her age and creatinine. She remained in atrial fibrillation at the time of her hospital discharge. She has currently not having any concerning heart palpitations. EKG done today showing atrial fibrillation, T-wave inversions inferior lateral leads, rate 91. She continues on metoprolol and Eliquis. No bleeding issues reported. Reviewed with Dr. Corral. Will check a Holter monitor to assess for PAF, AFib rates. Will check a limited echocardiogram to reassess EF and wall motion. If she has persistent atrial fibrillation then may require cardioversion and start of flecainide for heart rhythm control. Plan to call her when test results are available. Office visit 6 weeks, sooner if needed. (2) Cardiomyopathy: Code(s): I42.9 - Cardiomyopathy, unspecified Category: Medical Plan: During recent hospital admission echocardiogram showed EF 30%, wall motion abnormality suggesting takotsubo cardiomyopathy versus multivessel CAD. Her troponins were elevated up to 160. Once stabilized she was transferred for cardiac catheterization done on 11/11/2023 showing normal coronary arteries. She is confirmed to have takotsubo cardiomyopathy. She is on metoprolol XL and losartan for neurohormonal modulation. She is still requiring diuretics. She has been off her Lasix for a few days and has bilateral ankle edema. Will have a restart Lasix at 20 mg daily. Informed to stay on that dose until she is told otherwise. Will be rechecking limited echocardiogram as above. (3) Congestive heart failure: Code(s): I50.9 - Heart failure, unspecified Category: Medical Plan: Findings of heart failure dear [place] hospitalization. BNP elevated at 686. She was diuresed and started on daily Lasix. Since her hospital discharge she has cut down her diuretic dose and now has ankle edema. Will be having her restart Lasix 20 mg daily as above. Signs and symptoms of heart failure reviewed with her. Reviewed low-salt diet, home weight monitoring. (4) NSTEMI (non-ST elevated myocardial infarction): Code(s): I21.4 - Non-ST elevation (NSTEMI) myocardial infarction Category: Medical Plan: Initially treated for NSTEMI. Further testing confirms takotsubo cardiomyopathy. (5) S/P cardiac cath: Comment: 11/11/2023 showing normal coronary arteries Code(s): Z98.890 - Other specified postprocedural states Category: Surgical (6) Hospital discharge follow-up: Code(s): Z09 - Encounter for follow-up examination after completed treatment for conditions other than malignant neoplasm Category: Medical Plan: As above Plan Time spent on chart review, documentation, interview and assessment Orders: Orders ECG 3 day holter monitor Today I48.91 - Unspecified atrial fibrillation CA echo limited Today I42.9 - Cardiomyopathy, unspecified Medications: New dapagliflozin propanediol (Farxiga) 10 mg PO DAILY 30 tabs 5RF Coding Level of Care Code Est Pt Level 4 (45433) Diagnoses Atrial fibrillation with rapid ventricular response I48.91 Cardiomyopathy I42.9 Congestive heart failure I50.9 NSTEMI (non-ST elevated myocardial infarction) I21.4 S/P cardiac cath Z98.890 Hospital discharge follow-up Z09 CPT Codes EKG - CPT: 19081-[id number], Complete ([id number]) Time Spent (min) 36
== END 2023-12-02 09:14 | disposition home or self-care (01) ==
PROVIDERS: PCP Internal Medicine; Visit Provider Nurse Practitioner Family
DX: I48.91 Unspecified atrial fibrillation (principal); I42.9 Cardiomyopathy, unspecified; I50.9 Heart failure, unspecified; I21.4 Non-ST elevation (NSTEMI) myocardial infarction; Z98.890 Other specified postprocedural states; Z09 Encounter for follow-up examination after completed treatment for conditions other than malignant neoplasm
CPT/HCPCS: 93010; 99214

== ENCOUNTER → 2023-12-02 08:10 | Outpatient (BNVA) | payer MEDICARE, SELFPAY | PROVIDERS: PCP Internal Medicine; Visit Provider Nurse Practitioner Family | DX: Z09 Encounter for follow-up examination after completed treatment for conditions other than malignant neoplasm (principal); I42.9 Cardiomyopathy, unspecified; I48.91 Unspecified atrial fibrillation; I11.0 Hypertensive heart disease with heart failure; I50.21 Acute systolic (congestive) heart failure; I21.4 Non-ST elevation (NSTEMI) myocardial infarction; Z87.891 Personal history of nicotine dependence; Z98.890 Other specified postprocedural states | CPT/HCPCS: 93005; 99212 ==

== ENCOUNTER 2023-12-05 23:39 | Inpatient (IN) | payer MEDICARE, SELFPAY ==
--- NOTE | 2023-12-05 | ECG_ITS ---
Test Reason : DYSPNEA Blood Pressure : / mmHG Vent. Rate : 099 BPM Atrial Rate : 000 BPM P-R Int : 000 ms QRS Dur : 086 ms QT Int : 338 ms P-R-T Axes : 000 -35 201 degrees QTc Int : 433 ms Atrial fibrillation with premature ventricular or aberrantly conducted complexes Left axis deviation Septal infarct , age undetermined T wave abnormality, consider lateral ischemia Abnormal ECG When compared with ECG of 07-NOV-2023 08:37, Septal infarct is now Present Nonspecific T wave abnormality has replaced inverted T waves in Inferior leads T wave inversion less evident in Anterolateral leads Referred By: Generic ED Physician Electronically Signed By:PERI RUIZ MD
--- NOTE | ~2023-12-05 | XR_ITS ---
EXAMINATION: XR CHEST CLINICAL INFORMATION: Shortness of breath, cough COMPARISON: 11/08/2023 TECHNIQUE: Frontal view of the chest was obtained. FINDINGS: Lung volumes are symmetric. Generalized coarsened appearance of the interstitium is redemonstrated. No focal consolidation is seen. No evidence of pneumothorax or significant pleural effusion. Cardiac silhouette remains somewhat prominent. Calcification is present at the aortic arch. No acute osseous findings are seen. XR/XR chest 1V IMPRESSION: No focal consolidation. Redemonstrated coarsened appearance of the interstitium, which may reflect chronic airways/interstitial lung disease.
--- NOTE | ~2023-12-05 | CT_ITS ---
EXAMINATION: NONCONTRAST HEAD CT NONCONTRAST CERVICAL SPINE CT INDICATION INFORMATION: Fall COMPARISON: 02/05/2019 TECHNIQUE: Separate noncontrast CT examinations of the head and cervical spine were performed. Coronal head CT images and coronal and sagittal cervical spine images were created at the technologist workstation. DLP: 878 mGy-cm DOSE LOWERING TECHNIQUES: This CT examination was performed using dose optimization techniques as appropriate, variously including the following: - Automated exposure control - Adjustment of mA and/or kV according to patient size (this includes techniques or standardized protocols for targeted exams were dose is matched to indication/reason for exam; i.e. extremities or head) - Use of iterative reconstruction technique FINDINGS: Head: There is no evidence of acute intracranial hemorrhage or territorial infarction. No abnormal mass-effect or midline shift is seen. Dutta to white matter differentiation is well preserved. No extra-axial fluid collections are identified. The ventricles are normal in size. There is moderate periventricular white matter hypoattenuation consistent with chronic small vessel ischemic disease. Mild volume loss is noted. The osseous structures and soft tissues are normal. The mastoid air cells and visualized portions of the paranasal sinuses are well-aerated. Cervical spine: There is anatomic alignment of the vertebral bodies and posterior elements. Vertebral body heights are maintained. There is degenerative change at the atlantodens articulation. Mild narrowing of intervertebral disc spaces. Moderate bilateral facet arthropathy. Mild multilevel endplate osteophytes. No evidence of acute fracture. No prevertebral soft tissue swelling. Visualized portions of the lung apices are unremarkable. The thyroid gland is unremarkable. CT/CT cervical spine wo IV con IMPRESSION: No acute findings identified in the head or cervical spine. Chronic small vessel ischemic disease and volume loss.
[2023-12-05 23:44] VITALS: BP 146/62; PULSE 105; RESP 24; TEMP 36.4; O2SAT 88; BMI 20.6
[2023-12-06] VITALS (11 sets, daily range): BP systolic 108–148; BP diastolic 57–78; PULSE 69–111; RESP 14–20; TEMP 36.1–36.7; O2SAT 96–100
--- NOTE | 2023-12-06 00:02 | ED.SOB ---
HPI - SOB/Dyspnea General Chief Complaint: Dyspnea Stated Complaint: SoB Time Seen by Provider: 12/05/23 23:55 Source: patient, RN notes reviewed and old records reviewed Mode of arrival: ambulatory Limitations: no limitations History of Present Illness ED Provider: Merlene Hines PA-C HPI Narrative: 78-year-old female with a history of COPD on home O2 since August, HTN, GERD, HLD, aortic regurgitation, HFrEF (30%), atrial fibrillation on Eliquis who had recent admission to the hospital in October for COPD exacerbation, NSTEMI, new onset rapid atrial fibrillation who presents to the ER for evaluation of 5 days of worsening shortness of breath along with worsening lower extremity swelling. During her admission in October she had an abnormal echocardiogram showing an LV EF of 30-35%, with regional wall motion abnormalities. She required BiPAP for her respiratory distress. Cardiology was consulted and patient was ultimately transferred to [facility] for cardiac catheterization for suspected takotsubo cardiomyopathy versus multivessel disease. Cardiac cath was clean per pt and her daughter. New medications from that admission were apixaban and metoprolol. She was started on lasix during her admission, up to 80mg per pt and her daughter. Sent home with prn lasix, at follow up appointment PCP told her to take 40mg and wean to 20mg then off over course of a week, at pulmonology follow up 3 days later they told her to go back on 60mg. She reports SOB is constant, worse with exertion and she is having poor sleep as a result. Denies chest pain, but does have palpitations with the afib. Denies fevers, chills, headaches. Lower leg edema is worsening despite being back on lasix. She reports multiple mechanical falls in the last week where she has tripped over oxygen tubing, other obstacles. Most recent fall was earlier this evening where she tripped on oxygen tubing in her kitchen fell on her right side, denies headstrike or LOC, reports pain in her right shoulder, elbow, and groin. MD elicited complaint: shortness of breath Pertinent past history: COPD and congestive heart failure Onset (ago): day(s) (5) Timing: constant Severity: severe Exacerbating factors: lying flat, exertion and movement Known history of: COPD and congestive heart failure Associated symptoms: palpitations Treatment prior to arrival: none Related Data Home oxygen amount: 2 liters (1.5 at rest, 2 with exertion) Home Medications ?Medication ?Instructions ?Recorded ?Confirmed cholecalciferol (vitamin D3) 50 50 mcg PO DAILY 08/09/21 12/06/23 mcg (2,000 unit) capsule tiotropium bromide 2.5 2 puff inhalation DAILY 08/26/23 12/06/23 mcg/actuation mist for inhalation (Spiriva Respimat) rosuvastatin 5 mg tablet 5 mg PO DAILY 11/06/23 12/06/23 apixaban 5 mg tablet (Eliquis) 5 mg PO BID 11/19/23 12/06/23 metoprolol succinate 100 mg 100 mg PO DAILY 11/19/23 12/06/23 tablet,extended release 24 hr folic acid 1 mg tablet 1 mg PO DAILY 12/06/23 12/06/23 vitamin B complex 1 tab PO DAILY 12/06/23 12/06/23 Previous Rx's ?Medication ?Instructions ?Recorded albuterol sulfate 90 mcg/actuation 2 inh inhalation Q4-6H PRN 04/26/23 breath activated powder inhaler shortness of breath or wheezing #1 (ProAir RespiClick) ea losartan 25 mg tablet 25 mg PO DAILY hypertension 90 09/13/23 days #90 tabs fluticasone furoate 200 1 inh inhalation DAILY copd 30 10/24/23 mcg-vilanterol 25 mcg/dose days #60 ea inhalation powder (Breo Ellipta) lorazepam 0.5 mg tablet 0.5 mg PO Q8H PRN anxiety 30 days 11/02/23 #90 tabs furosemide 40 mg tablet 40 mg PO DAILY 90 days #90 tabs 11/19/23 dapagliflozin propanediol 10 mg 10 mg PO DAILY #30 tabs 12/02/23 tablet (Farxiga) Allergies Allergy/AdvReac Type Severity Reaction Status Date / Time Sulfa (Sulfonamide Allergy Intermediate nausea, Verified 12/05/23 23:45 Antibiotics) vomiting Review of Systems Review of Systems: Yes all other systems are reviewed and are negative FOR[facility]LY [facility] Past Medical History Medical History Acute on chronic hypoxic respiratory failure Acute HFrEF (heart failure with reduced ejection fraction) Chronic lung disease Skin lesion Dyslipidemia Cough due to DAISY inhibitor Neck pain GERD (gastroesophageal reflux disease) Aortic regurgitation Right hand pain Leg edema COPD (chronic obstructive pulmonary disease) Allergic rhinitis Anxiety Hypertension Surgical History Carpal tunnel syndrome, right History of bilateral cataract extraction History of partial hysterectomy Family History Family History Father Medical history unknown Mother Medical history unknown Social History Social History Household Members: None and Other Housing: House Do you presently have visiting nurse or other home services: No Alcohol intake: current Alcohol intake frequency: holidays/special occasions only Alcohol type: other Patient Tobacco Use Status: Former Tobacco user Tobacco use type: Cigarette e-Cigarette/Vaping Use: Never Used Second Hand Smoke Exposure: No Advance Directives Date on File: 08/25/20 service: No Current occupational status: retired Cognitive needs: No Hearing needs: No Vision needs: No Physical Exam Vital Signs: Vital Signs: Last Vital Signs Temp 97.0 F 12/07/23 09:41 Pulse 84 12/07/23 09:41 Resp 20 12/07/23 09:41 BP 122/68 12/07/23 09:41 Pulse Ox 99 12/07/23 09:41 O2 Del Method Room Air 12/07/23 09:41 O2 Flow Rate 2 12/07/23 07:41 BMI result Body Mass Index 20.6 Appearance: Alert. Oriented X3. Appears uncomfortable. Pale. Head: normocephalic, atraumatic. Eyes: Pupils equal, round and reactive to light. Neck: Normal inspection. Neck supple. CVS: Tachycardic heart rate and irregular rhythm. Pulses normal. Respiratory: Shortness of breath. No retractions or accessory muscle use, able to speak in a full sentence. End expiratory wheezes in bilateral lower lobes, otherwise lung sounds clear. Skin: Skin warm and dry. Normal skin color. No rashes. Extremities: 2+ lower extremity edema of the lower legs and feet. No joint swelling. Neuro/psych: Oriented X 3. No motor deficit. No sensory deficit. CN II-XII grossly intact. Normal speech and cognition. Medications Administered Generic Name Dose Route Start Last Admin Trade Name Freq PRN Reason Stop Dose Admin Albuterol/Ipratropium 3 ml 12/06/23 08:00 12/07/23 11:10 Albuterol/Iprat 2.5/0.5mg 3 Ml Ampul.Neb INHALE 3 ml RQ4H WHILE AWAKE MARIA D Administration Apixaban 5 mg 12/06/23 11:15 12/07/23 08:17 Apixaban 5 Mg Tablet PO 5 mg BID MARIA D Administration Atorvastatin Calcium 20 mg 12/07/23 09:00 12/07/23 08:17 Atorvastatin Calcium 20 Mg Tablet PO 20 mg DAILY MARIA D Administration Empagliflozin 10 mg 12/07/23 09:00 12/07/23 08:17 Empagliflozin 10 Mg Tablet PO 10 mg DAILY MARIA D Administration Folic Acid 1 mg 12/07/23 09:00 12/07/23 08:17 Folic Acid 1 Mg Tablet PO 1 mg DAILY MARIA D Administration Lorazepam 0.5 mg 12/06/23 11:15 12/06/23 11:34 Lorazepam 0.5 Mg Tablet PO 0.5 mg Q8H PRN Administration anxiety Melatonin 6 mg 12/06/23 04:15 12/06/23 22:01 Melatonin 3 Mg Tablet PO 6 mg BEDTIME PRN Administration Insomnia Metoprolol Succinate 100 mg 12/06/23 11:20 12/07/23 08:18 Metoprolol Succinate Er 100 Mg Tab.Er.24h PO 100 mg DAILY MARIA D Administration Protocol Multivitamins/Vitamin C 1 tab 12/07/23 09:00 12/07/23 08:17 Multivitamin Tablet PO 1 tab DAILY MARIA D Administration Prednisone 40 mg 12/07/23 09:00 12/07/23 08:17 Prednisone 20 Mg Tablet PO 40 mg DAILY MARIA D Administration Sodium Chloride 3 ml 12/06/23 08:00 12/07/23 08:19 0.9 % Sodium Chloride Flush 3 Ml Syringe IVFLUSH 3 ml QSHIFT MARIA D Administration Vitamin D 50 mcg 12/07/23 09:00 12/07/23 08:18 Cholecalciferol (Vitamin D3) 25 Mcg Tablet PO 50 mcg DAILY MARIA D Administration Discontinued Medications Generic Name Dose Route Start Last Admin Trade Name Freq PRN Reason Stop Dose Admin Digoxin 0.25 mg 12/06/23 15:30 12/07/23 04:14 Digoxin 0.25 Mg Tablet PO 12/07/23 03:31 0.25 mg Q6H MARIA D Administration Furosemide 40 mg 12/06/23 01:34 12/06/23 02:20 Furosemide 40 Mg/4 Ml Vial IVPUSH 12/06/23 01:35 40 mg STAT STA Administration Protocol Furosemide 40 mg 12/06/23 09:00 12/07/23 08:18 Furosemide 40 Mg/4 Ml Vial IVPUSH 40 mg DAILY MARIA D Administration Protocol Methylprednisolone Sodium Succinate 40 mg 12/06/23 04:30 12/06/23 05:01 Methylprednisolone Sod Succ 40 Mg/Ml Vial IVPUSH 40 mg Q12H MARIA D Administration Potassium Chloride 20 meq 12/06/23 01:34 12/06/23 02:20 Potassium Chloride Er 20 Meq Tab.Er.Prt PO 12/06/23 01:35 20 meq ONCE ONE Administration Potassium Chloride 40 meq 12/06/23 13:30 12/06/23 14:47 Potassium Chloride Packet 20 Meq Packet PO 12/06/23 13:31 40 meq ONCE ONE Administration Medical Decision Making Medical Decision Making MDM Narrative: 78-year-old female with a history of COPD on home O2 since August, HTN, GERD, HLD, aortic regurgitation, HFrEF (30%), atrial fibrillation on Eliquis who had recent admission to the hospital in October for COPD exacerbation, NSTEMI, new onset rapid atrial fibrillation who presents to the ER for evaluation of 5 days of worsening shortness of breath along with worsening lower extremity swelling. Given worsening SOB, LE edema, increased weight (up 12 lbs) in setting of recently diagnosed afib and HFrEF(30%) her presentation is more consistent with CHF exacerbation than COPD. Her renal function is stable. She took a total of 60 mg of oral Lasix today. Will give 40 mg IV Lasix now and reassess. hold off on bronchodilatory w/ elevated HR and no significant wheezing on exam. Obtained CT head/neck as patient had a fall earlier tonight, has been having more frequent falls recently, and is on eliquis. Patient reports that these are mechanical falls, likely due to swollen feet. Patient will require admission to the hospital for further evaluation and treatment. Patient agrees with plan. Differential Diagnosis Differential Diagnoses: The differential diagnosis associated with the presentation includes CHF exacerbation, COPD exacerbation, pleural effusions, PNA, viral syndrome Admission/Observation Consideration of admission/observation: Escalation of care including admission/observation considered Consult Healthcare Provider Management of the patient was discussed with: Hospitalist Lab Data MDM Lab Attestation statement: I reviewed the patient's lab results. Mild leukocytosis, normal renal function 12/06/23 05:54 12/07/23 05:30 Labs: Lab Results 12/06/23 12/06/23 Range/Units 00:18 00:20 WBC 11.9 H (4.8-10.8) X10*3/uL RBC 4.14 L (4.20-5.50) X10*6/uL Hgb 13.5 (12.0-16.0) g/dl Hct 40.3 (37.0-47.0) % MCV 97.3 (80.0-98.0) fL MCH 32.6 (27.0-33.0) pg MCHC 33.5 (31.0-35.0) g/dl RDW 14.1 (11.0-16.0) % Plt Count 277 (160-400) X10*3/uL MPV 9.3 L (9.4-12.3) fL Immature Gran % (Auto) 0.8 H (0.0-0.4) % Neut % (Auto) 76.6 H (45-73) % Lymph % (Auto) 11.1 L (20-40) % [place] % (Auto) 7.7 (2-11) % Eos % (Auto) 3.3 (0-4) % Baso % (Auto) 0.5 (0-2) % Lymph # (Auto) 1.3 (1.2-4.9) X10*3/uL [place] # (Auto) 0.9 (0.1-1.2) X10*3/uL Eos # (Auto) 0.4 (0.0-0.4) X10*3/uL Baso # (Auto) 0.1 (0.0-0.2) X10*3/uL Abs Immat Gran (auto) 0.09 H (0.00-0.03) X10*3/uL Absolute Neuts (auto) 9.2 H (2.0-8.3) x10*3/uL Absolute Nucleated RBC 0.000 (0.0-0.012) X10*3/uL Nucleated RBC % (auto) 0.0 (0.0-0.2) /100WBC PT 21.2 H D (11.1-13.3) SEC INR 1.7 H (0.9-1.1) VBG pH 7.42 (7.32-7.43) VBG pCO2 48 mmHg VBG pO2 27 mmHg VBG HCO3 31 H (22-26) mmol/L VBG O2 Saturation 51.0 % VBG Base Excess 6.0 mmol/L Sodium 140 (135-145) mmol/L Potassium 3.7 (3.3-5.1) mmol/L Chloride 100 (96-108) mmol/L Carbon Dioxide 29 (22-29) mmol/L Anion Gap 15 (12-20) BUN 17 H (9-16) mg/dL Creatinine 0.84 (0.5-1.4) mg/dL Estim Creat Clear Calc 46.6 Estimated GFR > 60 Fasting Glucose 113 H (60-99) mg/dL Lactic Acid 1.1 (0.5-2.0) mmol/L Calcium 9.6 (8.4-10.2) mg/dL Total Bilirubin 0.7 (0.0-1.0) mg/dL AST 32 H (5-31) U/L ALT 34 H (0-31) U/L Alkaline Phosphatase 135 H (39-117) U/L Troponin I High Sens 16.1 D (<3.5-17.0) ng/L B-Natriuretic Peptide 1254 H (<100) pg/mL Total Protein 6.7 (6.5-8.0) g/dL Albumin 3.8 (3.5-5.0) g/dL Procalcitonin 0.04 ng/mL Specimen Comment DELAY Independent Interpretation I performed an independent interpretation of an: EKG, Plain X-Ray and CT Scan Interpretation: EKG with atrial fibrillation, ventricular rate 99 beats per minute, no ST segment elevations or depressions, normal QTC X-ray with chronic interstitial markings, improvement in the sharpness of the costophrenic angles, mild cephalization consistent with early CHF CT head without any acute edema or bleed Radiology Impression Discussion of test interpretation with radiology: I have reviewed the radiologist's reading. Radiologist Impression: CT/CT head/brain wo IV con IMPRESSION: No acute findings identified in the head or cervical spine. Chronic small vessel ischemic disease and volume loss. EXAMINATION: XR CHEST CLINICAL INFORMATION: Shortness of breath, cough COMPARISON: 11/08/2023 TECHNIQUE: Frontal view of the chest was obtained. FINDINGS: Lung volumes are symmetric. Generalized coarsened appearance of the interstitium is redemonstrated. No focal consolidation is seen. No evidence of pneumothorax or significant pleural effusion. Cardiac silhouette remains somewhat prominent. Calcification is present at the aortic arch. No acute osseous findings are seen. XR/XR chest 1V IMPRESSION: No focal consolidation. Redemonstrated coarsened appearance of the interstitium, which may reflect chronic airways/interstitial lung disease. Independent Historian Clinical information obtained from an independent historian. History obtained from or confirmed by: EMS and Other (Adult daughter at the bedside) External Record Review External record reviewed: Inpatient record, Outpatient record, Prior outpatient labs and Prior outpatient radiology Prescription Management I considered prescription management with: Antibiotic Chronic Conditions Patient?s care impacted by: Other (COPD, CHF) Critical Care Time Critical Care Time Critical Care Time: Yes Total Critical Care Time: 34 Attestation: I have personally provided critical care time exclusive of time spent on separately billable procedures. Time includes review of lab data, chart review, radiology results, reassessment of pulmonary status, and monitoring for potential decompensation. Intervention performed as documented. Discharge Plan Discharge Clinical Impression: Atrial fibrillation with RVR Acute exacerbation of congestive heart failure Qualifiers: Heart failure type: unspecified Qualified Code(s): I50.9 - Heart failure, unspecified Patient Disposition: Admitted As Inpatient Interventions: Admission Worksheet (ED) Last Done: 12/06/23 23:31 Discharge Date/Time: 12/07/23 01:08
[2023-12-06 00:24] LABS: MANUAL DIFF FLAG NO
[2023-12-06 00:27] LABS: Basophils Absolute Auto 0.1 X10*3/uL (0.0-0.2); Basophils Percent Auto 0.5 % (0-2); Eosinophils Absolute Auto 0.4 X10*3/uL (0.0-0.4); Eosinophils Percent Auto 3.3 % (0-4); Hematocrit 40.3 % (37.0-47.0); Hemoglobin 13.5 g/dl (12.0-16.0); Imm Gran Abs Auto 0.09 X10*3/uL (0.00-0.03); Imm Gran Pct Auto 0.8 % (0.0-0.4); Lymphocytes Absolute Auto 1.3 X10*3/uL (1.2-4.9); Lymphocytes Percent Auto 11.1 % (20-40); Mean Corpuscular HGB Conc 33.5 g/dl (31.0-35.0); Mean Corpuscular Hemoglobin 32.6 pg (27.0-33.0); Mean Corpuscular Volume 97.3 fL (80.0-98.0); Mean Platelet Volume 9.3 fL (9.4-12.3); Monocytes Absolute Auto 0.9 X10*3/uL (0.1-1.2); Monocytes Percent Auto 7.7 % (2-11); Neutrophils Absolute Auto 9.2 x10*3/uL (2.0-8.3); Neutrophils Percent Auto 76.6 % (45-73); Platelet Count 277 X10*3/uL (160-400); Red Blood Count 4.14 X10*6/uL (4.20-5.50); Red Cell Distribution Width 14.1 % (11.0-16.0); White Blood Count 11.9 X10*3/uL (4.8-10.8)
[2023-12-06 00:28] LABS: Venous Blood Gas Refer to POC result
[2023-12-06 00:29] LABS: VBG HCO3 31 mmol/L (22-26); VBG pCO2 48 mmHg; VBG pH 7.42 (7.32-7.43); VBG pO2 27 mmHg
[2023-12-06 00:37] LABS: INTERNATIONAL NORM RATIO 1.7 (0.9-1.1); Prothrombin Time 21.2 SEC (11.1-13.3)
[2023-12-06 00:38] LABS: Lactic Acid 1.1 mmol/L (0.5-2.0)
[2023-12-06 00:47] LABS: Delay - Chemistry DELAY
[2023-12-06 00:48] LABS: B Type Natriuretic Peptide 1254 pg/mL (<100); Troponin-I High Sensitivity 16.1 ng/L (<3.5-17.0)
[2023-12-06 00:50] LABS: Alanine Aminotransferase 34 U/L (0-31); Albumin Level 3.8 g/dL (3.5-5.0); Alkaline Phosphatase 135 U/L (39-117); Anion Gap 15 (12-20); Aspartate Amino Transferase 32 U/L (5-31); Bilirubin Total 0.7 mg/dL (0.0-1.0); Blood Urea Nitrogen 17 mg/dL (9-16); Calcium 9.6 mg/dL (8.4-10.2); Carbon Dioxide 29 mmol/L (22-29); Chloride 100 mmol/L (96-108); Creatinine Clr Calc Pharmacy 46.6; Estimated Glomerular Filt Rate > 60; Glucose Fasting 113 mg/dL (60-99); Potassium 3.7 mmol/L (3.3-5.1); Sodium 140 mmol/L (135-145); Total Protein 6.7 g/dL (6.5-8.0)
[2023-12-06] MEDS: Furosemide 40 MG/4 ML VIAL IVPUSH ×2 (02:20→09:08)
[2023-12-06] MEDS: Potassium Chloride ER 20 MEQ TAB.ER.PRT PO (02:20)
[2023-12-06 02:37] LABS: Procalcitonin 0.04 ng/mL
--- NOTE | 2023-12-06 02:49 | MHC.EDTECH ---
purewick in place
--- NOTE | 2023-12-06 04:16 | P.HPHOSP_ITS ---
History of Present Illness Date of Service: 12/06/23 Chief Complaint: Dyspnea This is a 78-year-old female with pertinent history of chronic hypoxemic respiratory failure due to COPD, gastroesophageal reflux disease, hypertension, mood disorder, mixed hyperlipidemia, atrial fibrillation on Eliquis, congestive heart failure with reduced ejection fraction who presents to the emergency department for evaluation of dyspnea. Patient states she was discharged from [facility] last month with diuretics as needed . She did not know how much p.o. Lasix to take and missed a few doses. 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 daily. Patient states she has been taking Lasix the last couple of days but continues to be short of breath which is worse with exertion. Also endorses PND and bilateral pedal edema. No cough, fever or chills. Has associated wheezing. No chest discomfort, palpitations, abdominal pain, changes in urinary or bowel habits. In the emergency department, BNP found to be elevated and patient was given IV diuresis. Review of Systems 2 Cardiovascular: Cardiovascular: Reports dyspnea, Reports dyspnea on exertion and Reports paroxysmal nocturnal dyspnea Respiratory: Respiratory: Reports dyspnea and Reports dyspnea on exertion Gastrointestinal: Gastrointestinal: Reports no additional gastrointestinal complaints Genitourinary: Genitourinary: Reports no additional female genitourinary complaints [facility] Medical History Acute on chronic hypoxic respiratory failure Acute HFrEF (heart failure with reduced ejection fraction) Chronic lung disease Skin lesion Dyslipidemia Cough due to DAISY inhibitor Neck pain GERD (gastroesophageal reflux disease) Aortic regurgitation Right hand pain Leg edema COPD (chronic obstructive pulmonary disease) Allergic rhinitis Anxiety Hypertension Family History Father Medical history unknown Mother Medical history unknown Surgical History Carpal tunnel syndrome, right History of bilateral cataract extraction History of partial hysterectomy Social History Household Members: None Housing: House Do you presently have visiting nurse or other home services: No Alcohol intake: current Alcohol intake frequency: holidays/special occasions only Alcohol type: other Patient Tobacco Use Status: Former Tobacco user Tobacco use type: Cigarette e-Cigarette/Vaping Use: Never Used Second Hand Smoke Exposure: No Advance Directives: No Advance Directives Information Provided: Yes Advance Directives Date on File: 08/25/20 Do you have a plan to hurt others: No Plan service: No Current occupational status: retired Cognitive needs: No Hearing needs: No Vision needs: No Meds Allergies Allergy/AdvReac Type Severity Reaction Status Date / Time Sulfa (Sulfonamide Allergy Intermediate nausea, Verified 12/05/23 23:45 Antibiotics) vomiting Home Medications ?Medication ?Instructions ?Recorded ?Confirmed ?Last Taken ?Type cholecalciferol (vitamin D3) 50 50 mcg PO DAILY 08/09/21 12/02/23 Unknown History mcg (2,000 unit) capsule folic acid 1 mg tablet 1 mg PO DAILY 08/09/21 12/02/23 Unknown History vitamin B complex (B 1 tab PO DAILY 08/09/21 12/02/23 Unknown History Complex-Vitamin B12 tablet) tiotropium bromide 2.5 2 puff inhalation DAILY 08/26/23 12/02/23 Unknown History mcg/actuation mist for inhalation (Spiriva Respimat) rosuvastatin 5 mg tablet 5 mg PO DAILY 11/06/23 12/02/23 Unknown History apixaban 5 mg tablet (Eliquis) 5 mg PO BID 11/19/23 12/02/23 Unknown History metoprolol succinate 100 mg 100 mg PO DAILY 11/19/23 12/02/23 Unknown History tablet,extended release 24 hr montelukast 10 mg tablet 10 mg PO DAILY 11/19/23 12/02/23 Unknown History Physical Exam 2 Vital Signs and Narrative: Vital Signs: Last Vital Signs Temp 98.1 F 12/06/23 01:21 Pulse 108 H 12/06/23 03:39 Resp 20 12/06/23 03:39 BP 139/78 12/06/23 03:39 Pulse Ox 96 12/06/23 03:39 O2 Del Method Nasal Cannula 12/06/23 03:39 O2 Flow Rate 2 12/06/23 03:39 BMI result Body Mass Index 20.6 Middle-aged female lying in bed in mild distress on supplemental oxygen Neck supple, no JVD Irregularly irregular, S1-S2 heard Decreased breath sounds with wheezing Abdomen soft nontender, no guarding, no rigidity Patient is awake, alert and oriented to self, place, time and person ; no focal motor deficit Psych: Normal mood Bilateral pedal edema present Results Labs 12/06/23 00:18 12/06/23 00:18 Labs: Laboratory Results - last 24 hr 12/06/23 12/06/23 00:18 00:20 MCV 97.3 MCH 32.6 MCHC 33.5 RDW 14.1 Plt Count 277 MPV 9.3 L Immature Gran % (Auto) 0.8 H Neut % (Auto) 76.6 H Lymph % (Auto) 11.1 L [place] % (Auto) 7.7 Eos % (Auto) 3.3 Baso % (Auto) 0.5 Lymph # (Auto) 1.3 [place] # (Auto) 0.9 Eos # (Auto) 0.4 Baso # (Auto) 0.1 Abs Immat Gran (auto) 0.09 H Absolute Neuts (auto) 9.2 H Absolute Nucleated RBC 0.000 Nucleated RBC % (auto) 0.0 PT 21.2 H D INR 1.7 H VBG pH 7.42 VBG pCO2 48 VBG pO2 27 VBG HCO3 31 H VBG O2 Saturation 51.0 VBG Base Excess 6.0 Anion Gap 15 Estim Creat Clear Calc 46.6 Estimated GFR > 60 Fasting Glucose 113 H Lactic Acid 1.1 Calcium 9.6 Total Bilirubin 0.7 AST 32 H ALT 34 H Alkaline Phosphatase 135 H Troponin I High Sens 16.1 D B-Natriuretic Peptide 1254 H Total Protein 6.7 Albumin 3.8 Procalcitonin 0.04 Specimen Comment DELAY Imaging Radiologist's Impressions: Impressions Chest X-Ray 12/06/23 00:50 IMPRESSION: No focal consolidation. Redemonstrated coarsened appearance of the interstitium, which may reflect chronic airways/interstitial lung disease. Cervical Spine CT 12/06/23 00:54 IMPRESSION: No acute findings identified in the head or cervical spine. Chronic small vessel ischemic disease and volume loss. Head CT 12/06/23 00:54 IMPRESSION: No acute findings identified in the head or cervical spine. Chronic small vessel ischemic disease and volume loss. Assessment and Plan (1) Acute exacerbation of congestive heart failure: Qualifiers: Heart failure type: unspecified Qualified Code(s): I50.9 - Heart failure, unspecified Status: Acute Plan This is a 78-year-old female with pertinent history of chronic hypoxemic respiratory failure due to COPD, gastroesophageal reflux disease, hypertension, mood disorder, mixed hyperlipidemia, atrial fibrillation on Eliquis, congestive heart failure with reduced ejection fraction who presents to the emergency department for evaluation of dyspnea. #. Acute on chronic congestive heart failure with reduced ejection fraction: Initiating IV diuresis. Strict I's and O's. Low-salt diet. On beta-steve and ARB #. Chronic hypoxemic respiratory failure due to COPD with decompensation: Initiating IV steroids, scheduled and p.r.n. DuoNebs. Continue home inhaler #. Hypertension: Continue home antihypertensives #. Atrial fibrillation: Rate controlled in the ER. On Eliquis #. Mood disorder: Continue home mood stabilizers Med rec pending DVT prophylaxis: Eliquis Full code. Discussed with patient and daughter at bedside Admit as inpatient and will require two night minimum hospital stay for IV diuresis, IV steroids, monitoring of respiratory status (as above), which is not possible in a lesser acute setting. Quality Stroke Does the patient have a stroke diagnosis?: No VTE Prior VTE?: No VTE Risk Level:: Medical - moderate - high VTE Device Contraindication: Treatment Not Indicated VTE Drug Contraindication: N/A - Med Ordered
[2023-12-06] MEDS: methylPREDNISolone Sod Succ 40 MG/ML VIAL IVPUSH (05:01)
[2023-12-06 06:03] LABS: MANUAL DIFF FLAG NO
[2023-12-06 06:24] LABS: Anion Gap 14 (12-20); Blood Urea Nitrogen 15 mg/dL (9-16); Calcium 9.1 mg/dL (8.4-10.2); Carbon Dioxide 28 mmol/L (22-29); Chloride 100 mmol/L (96-108); Creatinine Clr Calc Pharmacy 52.2; Estimated Glomerular Filt Rate > 60; Glucose Random 104 mg/dL (60-115); Potassium 3.2 mmol/L (3.3-5.1); Sodium 139 mmol/L (135-145)
[2023-12-06 06:29] LABS: Basophils Absolute Auto 0.1 X10*3/uL (0.0-0.2); Basophils Percent Auto 0.6 % (0-2); Eosinophils Absolute Auto 0.1 X10*3/uL (0.0-0.4); Eosinophils Percent Auto 1.1 % (0-4); Hematocrit 37.3 % (37.0-47.0); Hemoglobin 12.4 g/dl (12.0-16.0); Imm Gran Abs Auto 0.04 X10*3/uL (0.00-0.03); Imm Gran Pct Auto 0.4 % (0.0-0.4); Lymphocytes Absolute Auto 1.1 X10*3/uL (1.2-4.9); Lymphocytes Percent Auto 10.3 % (20-40); Mean Corpuscular HGB Conc 33.2 g/dl (31.0-35.0); Mean Corpuscular Hemoglobin 32.3 pg (27.0-33.0); Mean Corpuscular Volume 97.1 fL (80.0-98.0); Mean Platelet Volume 9.9 fL (9.4-12.3); Monocytes Absolute Auto 0.9 X10*3/uL (0.1-1.2); Monocytes Percent Auto 8.6 % (2-11); Neutrophils Absolute Auto 8.6 x10*3/uL (2.0-8.3); Platelet Count 230 X10*3/uL (160-400); Red Blood Count 3.84 X10*6/uL (4.20-5.50); Red Cell Distribution Width 14.1 % (11.0-16.0); White Blood Count 10.9 X10*3/uL (4.8-10.8)
--- NOTE | 2023-12-06 07:00 | CA_ITS ---
Transthoracic Echocardiogram Patient (Last, First, Middle): Yasmeen Andrews R Gender: Female Date of : 1945 Age: 78 Procedure Date: 12/06/2023 Procedure Type: Transthoracic Echocardiogram Location: ER Height: 162.56 cm Weight: 54.43 kg BSA: 1.57 m2 Heart Rate: bpm BP: 108 / 63 mmHg Glass Selector: TO Referring MD: Marily MOHAN Disaster Recovery Consultant: Jean-Pierre Reilly MD Symptoms: eval EF; CHF, dyspnea Study Quality: Fair ECG Rhythm: Sinus Conclusions: - Mildly reduced LV ejection fraction of 45-50% with pseudonormal filling pattern with regional wall motion abnormality Findings Procedure Information The study quality is limited by the patients inability to tolerate the test. Left Ventricle Normal left ventricular cavity size. There is normal left ventricular wall thickness. The left ventricular systolic function is mildly decreased. The visually estimated ejection fraction is between 45-50%. Spectral Doppler is indicative of a pseudonormal filling pattern. Wall Motion Rest Echo Findings The mid inferior segment is hypokinetic. The basal inferior and basal inferoseptal segments are akinetic. All other scored wall segments showed normal motion. Prior Study Comparison Changes noted compared to prior study dated: 11/06/2023. LV systolic function is improved compared to prior study Measurements 2D Linear Measurements IVSd: 0.92 0.6-0.9/0.6-1.0 cm LVIDd: 4.66 3.9-5.3/4.2-5.9 cm LVIDd Index: 2.97 2.4-3.2/2.2-3.1 cm/m2 LVIDs: 3.53 2.0-3.6 cm LVPWd: 0.84 0.7-1.1 cm LV Mass: 169.82 67-162/88-224 g LV Mass Index: 108.17 43-95/49-115 g/m2 LVOT Diam: 2.00 3.0+(-)1.3 cm 2D Systolic Function EF 4C: 49.90 >55% EF 2C: 49.60 >55% EF BiP: 49.40 >55% Mitral Valve MV Pk E: 0.73 MV Decel Time: 147.00 E'Lateral: 8.38 E'Medial: 4.25 E/E' Med: 17.20 E/E' Lat: 8.70 PHT: 43.00 MVA PHT: 5.12 Decel [place]: 5.03 LVOT LVOT Pk Jabari: 0.96 LVOT Mn Jabari: 0.54 LVOT VTI: 0.12 LVOT Pk Grad: 4.00 LVOT Mn Grad: 1.00 LVOT Diam: 2.00 LVOT Area: 3.14 Diastolic Function MV Pk E: 0.73 E'Medial: 4.25 E/E' Med: 17.20 E' Laterial: 8.38 E/E' Lat: 8.70 Tricuspid Valve TR Pk Jabari: 2.99 TR Pk Grad: 36.00 RA Press: 15.00 RVSP: 51.00 Updated in Other Vendor System with Status of Final Jean-Pierre Reilly MD electronically signed on 12/06/2023 12:55:09 PM with status of Final
[2023-12-06] MEDS: Albuterol/Iprat 2.5/0.5MG 3 ML AMPUL.NEB INHALE ×4 (07:22→18:34)
--- NOTE | 2023-12-06 08:51 | PHA.MEDREC ---
Addendum entered by Ella Morejon 12/06/23 09:43: Patient reported she is no longer taking amlodipine and was switched to metoprolol. Addendum entered by Mansi Maurice 12/06/23 09:37: patient states she hasn't taken Montelukast in a month.no claims history. Addendum entered by Mansi Maurice 12/06/23 09:24: Confirmed medication with patient. She states she is no longer taking Gabapentin 100mg daily , Ibuprofen 800mg q8h prn and Ashlyn daily . she also states that she is taken Montelukst 10mg daily , and Folic acid 1mg daily. called [phone] and [facility] [phone] to confirm but no records found for either medication. Original Note: Pharmacy Consult ? Medication Reconciliation Pharmacy has completed the medication reconciliation.Confirmed med from list with patient.
[2023-12-06] MEDS: 0.9 % Sodium Chloride Flush 3 ML SYRINGE IVFLUSH ×2 (09:13→16:49)
--- NOTE | 2023-12-06 10:22 | MHC.CM.PN ---
PATIENT LIVES ALONE. SHE HAS A CANE AND WALKER THAT SHE DOES NOT YET RELY ON FOR AMBULATION ASSIST. PATIENT IS ON 1.5 L O2 DURING DAY, AND 2 L O2 VIA CANNULA AT NIGHT. [facility] SUPPLIES HER O2 AND SHE STATES THAT SHE HAS AMPLE SUPPLY AT HOME. PATIENT REPORTS THAT SHE HAS A HCP AT HOME THAT NAMES HER DAUGHTER, LYNNETTE AGENT. COPY REQUESTED FOR MEDICAL RECORD. NO VNA OR OCCUPATIONAL THERAPIST PER [facility]. PATIENT DENIES THE NEED FOR THESE, SHE HAS THREE DOGS THAT PREFER NO STRANGERS IN THE HOME. DAUGHTER, LYNNETTE, LIVES NEXT DOOR AND WILL PROVIDE TRANSPORTATION HOME. IMM EXPLAINED AND SIGNED. COPY OF IMM 12/05 PLACED IN PATIENT CHART
[2023-12-06] MEDS: Apixaban 5 MG TABLET PO ×2 (11:34→21:56)
[2023-12-06] MEDS: Metoprolol Succinate ER 100 MG TAB.ER.24H PO (11:34)
[2023-12-06] MEDS: LORazepam 0.5 MG TABLET PO (11:34)
--- NOTE | 2023-12-06 12:23 | PC.NURSE ---
assumed care of pt at 0700, pt resting quietly, vss - maintaining O2 on 2L, pt reports improvement in sob. wind commissioning technician showing afib w fate 106-125. resp at bedside for scheduled breathing treatments. medicated per AUG. pt ambulating independently to restroom w no increased sob. medicated per AUG - PRN lorazepam given per pt request for some increased anxiety. u/s tech at bedside w family for limited echo. pt denies any needs at this time. pt pending bed assignment, no new orders at this time.
--- NOTE | 2023-12-06 13:28 | P.EN_ITS ---
Event Note Date of Service: 12/06/23 Event Note: Seen and examined this morning Follow-up for COPD exacerbation, exacerbation of heart failure Patient reports improvement in breathing, good urine output since admission No shortness of breath at this time On last admissions she was admitted to the [facility] for new-onset AF/RVR and NSTEMI and also found to have HFrEF with regional wall motion abnormalities. She had diffuse T-wave inversions on EKG with hs-troponin elevation from 43.6 to 355.3 ng/L. She was started on enoxaparin for anticoagulation. chocardiogram showed moderately decreased LV systolic function with EF 30-35% and mildly increased left ventricular wall thickness. There was also akinesis of the entire apex, mid anterior, mid inferior, mid anterolateral, mid inferoseptal, mid anteroseptal, and mid inferolateral segments. Rate control of atrial fibrillation was achieved with digoxin loading then metoprolol succinate. She was diuresed with IV furosemide and was net negative -2.06L over the course of admission; she was transitioned to PO furosemide. She was transferred to [facility] for cardiac catheterization. She was discharged from [facility] with as needed Lasix. She had increasing ankle edema and was evaluated in the Cardiology Clinic on Saturday and started on daily Lasix 20 mg. On Saturday her dose was doubled due to increasing leg edema. She then began having dyspnea and presented to the emergency department on the day of admission. Acute on chronic congestive heart failure with reduced ejection fraction Echocardiogram from October with EF of 30 % and wall motion abnormality Diagnosed with takotsubo cardiomyopathy. Cardiac catheterization at [facility] negative for obstructive coronary artery disease Limited echocardiogram to evaluate EF Continue IV Lasix Patient reports improvement with diuresis,Is&Os not tracked thus far Chronic hypoxemic respiratory failure due to COPD with decompensation: On 1.5-2 L of supplemental oxygen at baseline Will transition IV Solu-Medrol to p.o. prednisone Paroxysmal Atrial fibrillation: Heart rate slightly elevated, did not receive home dose of metoprolol, we will resume Continue anticoagulation with Eliquis Anxiety Continue p.r.n. Ativan Mild hypokalemia Likely due to diuresis, replace and follow Time Spent With Patient Time: Total time managing care of this patient today ____ minutes.
[2023-12-06] MEDS: Potassium Chloride Packet 20 MEQ PACKET 40 MEQ PO (14:47)
--- NOTE | 2023-12-06 15:31 | P.CONCA_ITS ---
History of Present Illness History of Present Illness Date of Service: 12/06/23 Requesting physician: Marily Brambila Consult reason: atrial fibrillation and congestive heart failure Chief complaint: Dyspnea Narrative: I was consulted to see Yasmeen in cardiology consultation today for worsening shortness of breath with decompensated congestive heart failure and atrial fibrillation rapid ventricular response. She is a 78 [address] following with Dr. Corral who says she has been having issues with atrial fibrillation since August and got to see Dr. Magan isbell on August. Since then she has been on oral anticoagulation therapy however she has had admissions to [facility] with congestive heart failure. The last admission she was discharged on a p.r.n. Lasix does and she was confused about it. She went home and she would gained about 13 lb with poor response to Lasix. She subsequently was taking 40 mg Lasix and then stopped taking it again. Then she saw Kaitlyn 3 or 4 days ago because of increasing shortness of breath and leg swelling and she was prescribed again 40 mg Lasix however with poor response and continues to have worsening symptoms and she decided come to the emergency room. In the emergency room she has received IV diuresis and says her leg edema is improved on breathing is improved but still somewhat labored. She remains in atrial fibrillation with slightly rapid ventricular response. She has been taking all her medications. She says there was a plan to pursue rhythm control approach. She had a limited echocardiogram today which showed improved LV EF of 45-50%. She denies any clear palpitations. No lightheadedness, syncope. Blood pressure is stable. Review of Systems 2 Constitutional: Constitutional: Reports no additional constitutional complaints Eyes: Eyes: Reports no additional eye complaints Cardiovascular: Cardiovascular: Denies chest pain, Reports rapid heart rate, Reports leg edema, Denies lightheadedness, Denies Loss of Consciousness, Reports dyspnea, Reports dyspnea on exertion and Reports orthopnea Respiratory: Respiratory: Denies cough, Reports dyspnea, Reports dyspnea on exertion and Denies wheezing Gastrointestinal: Gastrointestinal: Reports no additional gastrointestinal complaints Genitourinary: Genitourinary: Reports no additional female genitourinary complaints Musculoskeletal: Musculoskeletal: Reports no additional musculoskeletal complaints Integumentary/Breasts: Skin/Breast: Reports system reviewed and no additional complaints, except as docu Neurologic: Reports system reviewed and no additional complaints, except as documented Allergic/Immunologic: Allergic/Immunologic: Denies wheezing PMFSH Past Medical History Medical History Acute on chronic hypoxic respiratory failure Acute HFrEF (heart failure with reduced ejection fraction) Chronic lung disease Skin lesion Dyslipidemia Cough due to DAISY inhibitor Neck pain GERD (gastroesophageal reflux disease) Aortic regurgitation Right hand pain Leg edema COPD (chronic obstructive pulmonary disease) Allergic rhinitis Anxiety Hypertension Family History Family History Father Medical history unknown Mother Medical history unknown Surgical History Surgical History Carpal tunnel syndrome, right History of bilateral cataract extraction History of partial hysterectomy Social History Social History Household Members: None Housing: House Do you presently have visiting nurse or other home services: No Alcohol intake: current Alcohol intake frequency: holidays/special occasions only Alcohol type: other Patient Tobacco Use Status: Former Tobacco user Tobacco use type: Cigarette Smoked in Last 30 Days: No e-Cigarette/Vaping Use: Never Used Second Hand Smoke Exposure: No Use of substances other than those prescribed or required for medical reasons: No Advance Directives: No Advance Directives Information Provided: Yes Advance Directives Date on File: 08/25/20 Do you have a plan to hurt others: No Plan Nutrition Risks: No Nutritional Risk service: No Current occupational status: retired Cognitive needs: No Hearing needs: No Vision needs: No Meds Allergies Allergy/AdvReac Type Severity Reaction Status Date / Time Sulfa (Sulfonamide Allergy Intermediate nausea, Verified 12/05/23 23:45 Antibiotics) vomiting Active Medications: Current Medications Acetaminophen (Acetaminophen 325 Mg Tablet) 650 mg PO Q6H PRN PRN Reason: Pain, Mild (Pain Scale 1-3) Albuterol/Ipratropium (Albuterol/Iprat 2.5/0.5mg 3 Ml Ampul.Neb) 3 ml INHALE RQ4H WHILE AWAKE MARIA D Last Admin: 12/06/23 15:15 Dose: 3 ml Albuterol/Ipratropium (Albuterol/Iprat 2.5/0.5mg 3 Ml Ampul.Neb) 3 ml INHALE Q4H PRN PRN Reason: Wheezing Apixaban (Apixaban 5 Mg Tablet) 5 mg PO BID [facility] Last Admin: 12/06/23 11:34 Dose: 5 mg Atorvastatin Calcium (Atorvastatin Calcium 20 Mg Tablet) 20 mg PO DAILY [facility] Empagliflozin (Empagliflozin 10 Mg Tablet) 10 mg PO DAILY [facility] Fluticasone/Vilanterol (Fluticasone/Vilanterol 200/25 Blst.W.Dev) 1 puff INHALE RDAILY [facility] Folic Acid (Folic Acid 1 Mg Tablet) 1 mg PO DAILY [facility] Furosemide (Furosemide 40 Mg/4 Ml Vial) 40 mg IVPUSH DAILY [facility]; Protocol Last Admin: 12/06/23 09:08 Dose: 40 mg Lorazepam (Lorazepam 0.5 Mg Tablet) 0.5 mg PO Q8H PRN PRN Reason: anxiety Last Admin: 12/06/23 11:34 Dose: 0.5 mg Melatonin (Melatonin 3 Mg Tablet) 6 mg PO BEDTIME PRN PRN Reason: Insomnia Metoprolol Succinate (Metoprolol Succinate Er 100 Mg Tab.Er.24h) 100 mg PO DAILY [facility]; Protocol Last Admin: 12/06/23 11:34 Dose: 100 mg Multivitamins/Vitamin C (Multivitamin Tablet) 1 tab PO DAILY [facility] Ondansetron HCl (Ondansetron Hcl 4 Mg/2 Ml Vial) 4 mg IVPUSH Q8H PRN PRN Reason: Nausea and Vomiting Prednisone (Prednisone 20 Mg Tablet) 40 mg PO DAILY [facility] Sodium Chloride (0.9 % Sodium Chloride Flush 3 Ml Syringe) 3 ml IVFLUSH QSHIFT [facility] Last Admin: 12/06/23 09:13 Dose: 3 ml Vitamin D (Cholecalciferol (Vitamin D3) 25 Mcg Tablet) 50 mcg PO DAILY [facility] Home Medications ?Medication ?Instructions ?Recorded ?Confirmed ?Last Taken ?Type cholecalciferol (vitamin D3) 50 50 mcg PO DAILY 08/09/21 12/06/23 12/05/23 History mcg (2,000 unit) capsule tiotropium bromide 2.5 2 puff inhalation DAILY 08/26/23 12/06/23 12/05/23 History mcg/actuation mist for inhalation (Spiriva Respimat) rosuvastatin 5 mg tablet 5 mg PO DAILY 11/06/23 12/06/23 12/05/23 History apixaban 5 mg tablet (Eliquis) 5 mg PO BID 11/19/23 12/06/23 12/05/23 History metoprolol succinate 100 mg 100 mg PO DAILY 11/19/23 12/06/23 12/05/23 History tablet,extended release 24 hr folic acid 1 mg tablet 1 mg PO DAILY 12/06/23 12/06/23 12/05/23 History vitamin B complex 1 tab PO DAILY 12/06/23 12/06/23 12/05/23 History Physical Exam 2 Vital Signs: Vital Signs: Last Vital Signs Temp 97.7 F 12/06/23 09:18 Pulse 106 H 12/06/23 15:15 Resp 20 12/06/23 15:15 BP 108/63 12/06/23 11:34 Pulse Ox 99 12/06/23 09:18 O2 Del Method Room Air 12/06/23 09:18 O2 Flow Rate 2 12/06/23 03:39 BMI result Body Mass Index 20.6 Const: General: cooperative, comfortable, alert, awake, in distress mild and respiratory and anxious Nutritional Appearance: thin O rientation/consciousness: patient oriented x3 Limitations: no limitations HEENT: Head: Yes normocephalic and Yes atraumatic Neck: Neck: Yes trachea midline, Yes supple and Yes JVD Resp: Effort & Inspection: normal respiratory effort Auscultation: c rackles, no wheezes and diminished lung sounds Cardio: Jugular venous distension: JVD Rate: tachycardic Rhythm: a bnormal rhythm irregularly irregular Heart sounds: S1 normal heart sound present, S2 normal heart sound present, no click, no gallops, no murmurs and no rubs GI: Auscultation: normal bowel sounds Skin: General skin exam: no rashes or lesions noted and ecchymosis Neuro: General: patient oriented x3 and no focal motor deficits Extrem: General: No clubbing, No cyanosis and Yes edema (1+) Objective Labs and Meds 12/06/23 05:54 12/06/23 05:54 Lab results: Laboratory Results - last 24 hr 12/06/23 12/06/23 12/06/23 00:18 00:20 05:54 WBC 11.9 H 10.9 H RBC 4.14 L 3.84 L Hgb 13.5 12.4 Hct 40.3 37.3 MCV 97.3 97.1 MCH 32.6 32.3 MCHC 33.5 33.2 RDW 14.1 14.1 Plt Count 277 230 MPV 9.3 L 9.9 Immature Gran % (Auto) 0.8 H 0.4 Neut % (Auto) 76.6 H 79.0 H Lymph % (Auto) 11.1 L 10.3 L [place] % (Auto) 7.7 8.6 Eos % (Auto) 3.3 1.1 Baso % (Auto) 0.5 0.6 Lymph # (Auto) 1.3 1.1 L [place] # (Auto) 0.9 0.9 Eos # (Auto) 0.4 0.1 Baso # (Auto) 0.1 0.1 Abs Immat Gran (auto) 0.09 H 0.04 H Absolute Neuts (auto) 9.2 H 8.6 H Absolute Nucleated RBC 0.000 0.000 Nucleated RBC % (auto) 0.0 0.0 PT 21.2 H D INR 1.7 H VBG pH 7.42 VBG pCO2 48 VBG pO2 27 VBG HCO3 31 H VBG O2 Saturation 51.0 VBG Base Excess 6.0 Sodium 140 139 Potassium 3.7 3.2 L Chloride 100 100 Carbon Dioxide 29 28 Anion Gap 15 14 BUN 17 H 15 Creatinine 0.84 0.75 Estim Creat Clear Calc 46.6 52.2 Estimated GFR > 60 > 60 Random Glucose 104 Fasting Glucose 113 H Lactic Acid 1.1 Calcium 9.6 9.1 Total Bilirubin 0.7 AST 32 H ALT 34 H Alkaline Phosphatase 135 H Troponin I High Sens 16.1 D B-Natriuretic Peptide 1254 H Total Protein 6.7 Albumin 3.8 Procalcitonin 0.04 Specimen Comment DELAY Imaging Radiologist's impression: Impressions Chest X-Ray 12/06/23 00:50 IMPRESSION: No focal consolidation. Redemonstrated coarsened appearance of the interstitium, which may reflect chronic airways/interstitial lung disease. Cervical Spine CT 12/06/23 00:54 IMPRESSION: No acute findings identified in the head or cervical spine. Chronic small vessel ischemic disease and volume loss. Head CT 12/06/23 00:54 IMPRESSION: No acute findings identified in the head or cervical spine. Chronic small vessel ischemic disease and volume loss. Assessment and Plan (1) Acute exacerbation of congestive heart failure: Qualifiers: Heart failure type: unspecified Qualified Code(s): I50.9 - Heart failure, unspecified Status: Acute Patient presents with symptoms suggestive of more decompensated congestive heart failure and COPD exacerbation. Has responded to diuresis. Still appears to be mildly fluid overloaded. Continue with IV diuresis. Strict intake and output chart needs to be pursued. Follow BMP and BNP and electrolytes tomorrow. Needs better rate control for atrial fibrillation. LV systolic function has improved with medical therapy. I would continue with aggressive rate control approach and I think she would benefit from rhythm control approach will be pursued in the near future. Continue dapagliflozin. Continue Lasix continue metoprolol. Add valsartan 20 mg b.i.d. to her regimen. Will continue to follow with you (2) Atrial fibrillation with RVR: Status: Acute Atrial fibrillation new onset over the last 3 months persistent. I think patient will benefit with rhythm control approach given her recurrent heart failure syndrome. LV systolic function has improved. Continue metoprolol therapy for rate control. Please digitalize over the next 12 hours with 3 doses of IV push of 0.25 mg. Continue full oral anticoagulation Eliquis. Will continue to follow with you Procedures Date of Service Date of Service: 12/06/23
[2023-12-06] MEDS: Digoxin 0.25 MG TABLET PO ×2 (16:33→21:56)
--- NOTE | 2023-12-06 19:22 | PC.NURSE ---
This RN assumed pt care @ 1900. Pt ca&ox3, no signs of distress. Pt resting in bed watching tv Pt denies pain at this time. Pt eating dinner with family at bedside. Plan of care ongoing.
--- NOTE | 2023-12-06 19:44 | PC.NURSE ---
Pt transferred into hospital bed. Plan of care ongoing.
--- NOTE | 2023-12-06 21:33 | PC.NURSE ---
Pharm [facility] called for digoxin not in pyxis. Plan of care ongoing
[2023-12-06] MEDS: Melatonin 3 MG TABLET 6 MG PO (22:01)
--- NOTE | 2023-12-06 22:02 | PC.NURSE ---
Pt requested and given meds to help with sleep. Pt medicated per aug. Pt denies pain at this time. Plan of care ongoing.
[2023-12-07] VITALS (12 sets, daily range): BP systolic 107–130; BP diastolic 57–74; PULSE 76–92; RESP 16–20; TEMP 36–36.7; O2SAT 92–100; BMI 20.6
[2023-12-07] MEDS: 0.9 % Sodium Chloride Flush 3 ML SYRINGE IVFLUSH ×3 (00:48→17:25)
[2023-12-07] MEDS: Digoxin 0.25 MG TABLET PO (04:14)
[2023-12-07 06:02] LABS: Anion Gap 12 (12-20); Blood Urea Nitrogen 14 mg/dL (9-16); Carbon Dioxide 29 mmol/L (22-29); Chloride 101 mmol/L (96-108); Creatinine Clr Calc Pharmacy 57.6; Estimated Glomerular Filt Rate > 60; Glucose Random 97 mg/dL (60-115); Potassium 3.8 mmol/L (3.3-5.1); Sodium 138 mmol/L (135-145)
[2023-12-07] MEDS: Albuterol/Iprat 2.5/0.5MG 3 ML AMPUL.NEB INHALE ×4 (06:03→19:16)
--- NOTE | 2023-12-07 07:43 | HO.PM.IMPN ---
Subjective Subjective Date of Service: 12/07/23 Interval History: seen and examined this AM feeling better than yesterday but still sob compared to baseline reports intermittent palpitations Review of Systems Negative except HPI/interval history. Physical Exam Vital Signs: Vital Signs: Last Vital Signs Temp 97.0 F 12/07/23 01:02 Pulse 84 12/07/23 06:03 Resp 17 12/07/23 06:03 BP 126/64 12/07/23 01:02 Pulse Ox 97 12/07/23 01:02 O2 Del Method Nasal Cannula 12/07/23 01:02 O2 Flow Rate 2 12/07/23 01:02 BMI result Body Mass Index 20.6 Const: Other: General - no acute distress, appears comfortable Cardiovascular - IRR, rales at bases; Lungs - normal respiratory effort, clear to auscultation bilaterally, no wheezing Abdomen - soft, nontender, no rebound or guarding Extremities - no edema bilaterally Neuro - awake and alert, no focal deficits Objective Data Active Medications Acetaminophen (Acetaminophen 325 Mg Tablet) 650 mg PO Q6H PRN PRN Reason: Pain, Mild (Pain Scale 1-3) Albuterol/Ipratropium (Albuterol/Iprat 2.5/0.5mg 3 Ml Ampul.Neb) 3 ml INHALE RQ4H WHILE AWAKE [facility] Last Admin: 12/07/23 06:03 Dose: 3 ml Documented By: DANIELA Albuterol/Ipratropium (Albuterol/Iprat 2.5/0.5mg 3 Ml Ampul.Neb) 3 ml INHALE Q4H PRN PRN Reason: Wheezing Apixaban (Apixaban 5 Mg Tablet) 5 mg PO BID [facility] Last Admin: 12/06/23 21:56 Dose: 5 mg Documented By: MIGUEL Atorvastatin Calcium (Atorvastatin Calcium 20 Mg Tablet) 20 mg PO DAILY [facility] Empagliflozin (Empagliflozin 10 Mg Tablet) 10 mg PO DAILY [facility] Fluticasone/Vilanterol (Fluticasone/Vilanterol 200/25 Blst.W.Dev) 1 puff INHALE RDAILY [facility] Folic Acid (Folic Acid 1 Mg Tablet) 1 mg PO DAILY [facility] Furosemide (Furosemide 40 Mg/4 Ml Vial) 40 mg IVPUSH DAILY [facility]; Protocol Last Admin: 12/06/23 09:08 Dose: 40 mg Documented By: HO.MADDENL Lorazepam (Lorazepam 0.5 Mg Tablet) 0.5 mg PO Q8H PRN PRN Reason: anxiety Last Admin: 12/06/23 11:34 Dose: 0.5 mg Documented By: DALE Melatonin (Melatonin 3 Mg Tablet) 6 mg PO BEDTIME PRN PRN Reason: Insomnia Last Admin: 12/06/23 22:01 Dose: 6 mg Documented By: MIGUEL Metoprolol Succinate (Metoprolol Succinate Er 100 Mg Tab.Er.24h) 100 mg PO DAILY [facility]; Protocol Last Admin: 12/06/23 11:34 Dose: 100 mg Documented By: DALE Multivitamins/Vitamin C (Multivitamin Tablet) 1 tab PO DAILY [facility] Ondansetron HCl (Ondansetron Hcl 4 Mg/2 Ml Vial) 4 mg IVPUSH Q8H PRN PRN Reason: Nausea and Vomiting Prednisone (Prednisone 20 Mg Tablet) 40 mg PO DAILY [facility] Sodium Chloride (0.9 % Sodium Chloride Flush 3 Ml Syringe) 3 ml IVFLUSH QSHIFT [facility] Last Admin: 12/07/23 00:48 Dose: 3 ml Documented By: MIGUEL Vitamin D (Cholecalciferol (Vitamin D3) 25 Mcg Tablet) 50 mcg PO DAILY [facility] Labs 12/06/23 05:54 12/07/23 05:30 Labs: Laboratory Results - last 24 hr 12/07/23 05:30 Hold Purple Top SEE NOTE Anion Gap 12 Estim Creat Clear Calc 57.6 Estimated GFR > 60 Random Glucose 97 Calcium 9.0 Microbiology Microbiology Results: Microbiology 12/06/23 00:18 Blood Culture - Preliminary Blood - Venous No growth after 24 hours. 12/06/23 00:18 Blood Culture - Preliminary Blood - Venous No growth after 24 hours. Assessment and Plan (1) Atrial fibrillation with RVR: Status: Acute (2) Acute exacerbation of congestive heart failure: Status: Acute Plan 78 yo F admitted for: 1. Acute on chronic congestive heart failure with reduced ejection fraction slowly improving continue with iv lasix i/o cardiology following 2. PAF with RVR s/p dig load monitor on tele 3. Chronic hypoxemic respiratory failure due to COPD with decompensation: On 1.5-2 L of supplemental oxygen at baseline Will transition IV Solu-Medrol to p.o. prednisone 4. Anxiety Continue p.r.n. Ativan 5. Mild hypokalemia Likely due to diuresis, replace and follow Full Code DVT pptx, [place] Requires on going hospitalization for treatment of CHF, she still appears volume overloaded and will require IV lasix for at least 24 more hours. Quality Stroke Does the patient have a stroke diagnosis?: No VTE Prior VTE?: No VTE Risk Level:: Medical - moderate - high VTE Device Contraindication: Treatment Not Indicated VTE Drug Contraindication: N/A - Med Ordered
[2023-12-07] MEDS: Atorvastatin Calcium 20 MG TABLET PO (08:17)
[2023-12-07] MEDS: Apixaban 5 MG TABLET PO ×2 (08:17→21:18)
[2023-12-07] MEDS: predniSONE 20 MG TABLET 40 MG PO (08:17)
[2023-12-07] MEDS: Multivitamin TABLET 1 TAB PO (08:17)
[2023-12-07] MEDS: Folic Acid 1 MG TABLET PO (08:17)
[2023-12-07] MEDS: Empagliflozin 10 MG TABLET PO (08:17)
[2023-12-07] MEDS: Furosemide 40 MG/4 ML VIAL IVPUSH ×2 (08:18→17:24)
[2023-12-07] MEDS: Metoprolol Succinate ER 100 MG TAB.ER.24H PO (08:18)
[2023-12-07] MEDS: Cholecalciferol (Vitamin D3) 25 MCG TABLET 50 MCG PO (08:18)
--- NOTE | 2023-12-07 10:57 | PC.NURSE ---
pt refusing bed alarm and chair alarms
--- NOTE | 2023-12-07 11:01 | PM.PNCARD ---
Subjective Subjective Date of Service: 12/07/23 Interval history: Patient says she has breathing a lot better. Heart rate is much better control after digoxin load. Review of Systems Constitutional: Reports no additional constitutional complaints Cardiovascular: Denies chest pain, Denies leg edema, Denies palpitations and Reports dyspnea on exertion Respiratory: Reports dyspnea on exertion Gastrointestinal: Reports no additional gastrointestinal complaints Genitourinary: Reports no additional female genitourinary complaints Endocrine: Denies palpitations Physical Exam Vital Signs: Last Vital Signs Temp 97.0 F 12/07/23 09:41 Pulse 84 12/07/23 09:41 Resp 20 12/07/23 09:41 BP 122/68 12/07/23 09:41 Pulse Ox 99 12/07/23 09:41 O2 Del Method Room Air 12/07/23 09:41 O2 Flow Rate 2 12/07/23 07:41 BMI result Body Mass Index 20.6 Const General: cooperative, comfortable, alert and awake Nutritional Appearance: thin Orientation/consciousness: patient oriented x3 Neck Neck: Yes trachea midline, Yes supple and Yes no JVD Resp Effort & Inspection: normal respiratory effort Auscultation: rales Cardio Jugular venous distension: no JVD Rate: regular rate Rhythm: abnormal rhythm irregularly irregular GI Auscultation: normal bowel sounds Skin General skin exam: no rashes or lesions noted Neuro General: patient oriented x3 and no focal motor deficits Objective Labs and Meds 12/06/23 05:54 12/07/23 05:30 Lab results: Laboratory Results - last 24 hr 12/07/23 05:30 Hold Purple Top SEE NOTE Sodium 138 Potassium 3.8 Chloride 101 Carbon Dioxide 29 Anion Gap 12 BUN 14 Creatinine 0.68 Estim Creat Clear Calc 57.6 Estimated GFR > 60 Random Glucose 97 Calcium 9.0 Progress Note: A&P Assessment and plan (1) Acute exacerbation of congestive heart failure: Status: Acute Assessment and Plan: Patient with acute congestive heart failure with mild LV systolic dysfunction most likely related to atrial fibrillation. Clinically still has rales. Will continue IV diuresis can intensified. Strict intake and output chart needs to be pursued. Continue to monitor renal function and electrolytes as well as BNP. Continue aggressive rate control approach. Eventually require rhythm control approach, see below. (2) Atrial fibrillation with RVR: Status: Acute Assessment and Plan: Atrial fibrillation with rapid ventricular response rate is better controlled after addition of digoxin. Can switch to 0.25 mg daily. Continue metoprolol therapy. Continue full oral anticoagulation Eliquis. Will continue to follow with you Time Spent With Patient Time: Total time managing care of this patient today ____ minutes. Progress Note: Quality Stroke Does the patient have a stroke diagnosis?: No Procedures Date of Service Date of Service: 12/07/23
[2023-12-07] MEDS: Fluticasone/Vilanterol 200/25 BLST.W.DEV 1 PUFF INHALE (12:04)
[2023-12-07] MEDS: Melatonin 3 MG TABLET 6 MG PO (21:26)
[2023-12-08 03:36] VITALS: BP 134/63; PULSE 90; RESP 18; TEMP 36.6; O2SAT 93
[2023-12-08 05:56] VITALS: BMI 20.4
[2023-12-08] MEDS: 0.9 % Sodium Chloride Flush 3 ML SYRINGE IVFLUSH ×2 (05:57→09:21)
[2023-12-08] MEDS: Fluticasone/Vilanterol 200/25 BLST.W.DEV 1 PUFF INHALE (07:35)
[2023-12-08] MEDS: Albuterol/Iprat 2.5/0.5MG 3 ML AMPUL.NEB INHALE ×2 (07:35→11:35)
[2023-12-08 07:37] VITALS: PULSE 83; RESP 16; O2SAT 98
[2023-12-08 07:47] VITALS: BP 110/55; PULSE 82; RESP 19; TEMP 36.5; O2SAT 100
[2023-12-08 08:07] LABS: Anion Gap 12 (12-20); Blood Urea Nitrogen 15 mg/dL (9-16); Calcium 9.3 mg/dL (8.4-10.2); Carbon Dioxide 33 mmol/L (22-29); Chloride 97 mmol/L (96-108); Creatinine Clr Calc Pharmacy 53.9; Estimated Glomerular Filt Rate > 60; Glucose Random 80 mg/dL (60-115); Potassium 4.3 mmol/L (3.3-5.1); Sodium 138 mmol/L (135-145)
[2023-12-08 09:19] VITALS: BP 110/55
[2023-12-08] MEDS: Empagliflozin 10 MG TABLET PO (09:19)
[2023-12-08] MEDS: Furosemide 40 MG/4 ML VIAL IVPUSH (09:19)
[2023-12-08 09:20] VITALS: BP 110/55; PULSE 82
[2023-12-08] MEDS: Multivitamin TABLET 1 TAB PO (09:20)
[2023-12-08] MEDS: Digoxin 0.25 MG TABLET PO (09:20)
[2023-12-08] MEDS: Atorvastatin Calcium 20 MG TABLET PO (09:20)
[2023-12-08] MEDS: Apixaban 5 MG TABLET PO (09:20)
[2023-12-08] MEDS: predniSONE 20 MG TABLET 40 MG PO (09:20)
[2023-12-08] MEDS: Metoprolol Succinate ER 100 MG TAB.ER.24H PO (09:20)
[2023-12-08] MEDS: Cholecalciferol (Vitamin D3) 25 MCG TABLET 50 MCG PO (09:20)
[2023-12-08] MEDS: Folic Acid 1 MG TABLET PO (09:20)
--- NOTE | 2023-12-08 11:26 | MHC.CM.PN ---
PT WILL BE DISCHARGED HOME TODAY CM MET WITH PT TO DISCUSS DC PLANS SHE REPORTS SHE IS NOT INTERESTED IN [facility] SHE SAYS HER DAUGHTERS ARE NEARBY AND ASSIST PRN SHE ALSO REPORTS HER DAUGHTER GOT HER A COMMODE, WHEELED PORTABLE O2 CARRIER AND A W/C SHE REPORTS HER DAUGHTER WILL PICK HER UP WHEN SHE IS READY TO DC
--- NOTE | 2023-12-08 11:31 | PM.DS ---
DS: Providers Provider Date of Service: 12/08/23 Date of admission: 12/06/23 04:15 Primary care physician: Parul Williamson MD Consults: 12/06/23 10:26 Consult to Cardiology Routine Consulting Provider: [facility] Reason for consultation: chf, afib rvr Has provider been notified: No DS: Diagnosis Discharge Diagnosis (1) Acute exacerbation of congestive heart failure: Status: Acute (2) Atrial fibrillation with RVR: Status: Acute DS: Summary Hospital Course Hospital Course: HPI from admission H&P: This is a 78-year-old female with pertinent history of chronic hypoxemic respiratory failure due to COPD, gastroesophageal reflux disease, hypertension, mood disorder, mixed hyperlipidemia, atrial fibrillation on Eliquis, congestive heart failure with reduced ejection fraction who presents to the emergency department for evaluation of dyspnea. Patient states she was discharged from [facility] last month with diuretics as needed . She did not know how much p.o. Lasix to take and missed a few doses. 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 daily. Patient states she has been taking Lasix the last couple of days but continues to be short of breath which is worse with exertion. Also endorses PND and bilateral pedal edema. No cough, fever or chills. Has associated wheezing. No chest discomfort, palpitations, abdominal pain, changes in urinary or bowel habits. In the emergency department, BNP found to be elevated and patient was given IV diuresis. Hospital course: Patient was admitted for AFib with RVR and acute CHF. She was initiated on IV Lasix 40 mg daily. Initially her heart rate was controlled, however digoxin added to regimen as she remained tachycardic. There is also a possible component of mild COPD exacerbation for which she was started on prednisone. With these measures, she improved over the course of her hospitalization. She will be discharged home on Lasix 40 mg, digoxin 0.25 mg daily. Her losartan was held as she had borderline blood pressures. She is to continue her baseline medications with the exception of losartan. She was seen by Cardiology during her hospitalization with plans for cardioversion. She has been informed to hold her digoxin on the day of the cardioversion. Tentative date for cardioversion is12/11/23. The above has been discussed with the patient and her daughter prior to discharge. Time Attestation Discharge Coordination Time (in mins): 40 Quality: Safe Use of Opioids Does Pt have an Active Cancer Diagnosis on the Problem List?: No Quality: Stroke Does the patient have a stroke diagnosis?: No Physical Exam Vital Signs: Vital Signs: Last Vital Signs Temp 97.7 F 12/08/23 07:47 Pulse 82 12/08/23 09:20 Resp 19 12/08/23 07:47 BP 110/55 L 12/08/23 09:20 Pulse Ox 100 12/08/23 07:47 O2 Del Method Nasal Cannula 12/08/23 07:47 O2 Flow Rate 2 12/08/23 07:47 BMI result Body Mass Index 20.4 Const: Other: awake alert nad irr no resp distress [id number] DS: Data Data Completed and Pending Labs on day of discharge: Laboratory Results - last 24 hr 12/08/23 07:33 Hold Purple Top SEE NOTE Sodium 138 Potassium 4.3 Chloride 97 Carbon Dioxide 33 H Anion Gap 12 BUN 15 Creatinine 0.72 Estim Creat Clear Calc 53.9 Estimated GFR > 60 Random Glucose 80 Calcium 9.3 Preliminary micro results at discharge 12/06/23 00:18 Blood Culture - Preliminary Blood - Venous No growth after 48 hours. 12/06/23 00:18 Blood Culture - Preliminary Blood - Venous No growth after 48 hours. Discharge Plan Discharge Anticipated Discharge Date/Time: 12/08/23 11:10 Patient Disposition: Home, Self-Care Discharge Diagnosis: A. Fib RVR CHF Referrals: Parul Cartagena MD [Primary Care Provider] - 1 Week Discharge Medications: New prednisone 20 mg Tablet 40 mg PO DAILY Qty: 8 0RF digoxin 250 mcg (0.25 mg) Tablet 0.25 mg PO DAILY Qty: 30 2RF furosemide [Lasix] 40 mg tablet 40 mg PO DAILY Qty: 30 2RF melatonin 3 mg capsule 6 mg PO BEDTIME PRN (Reason: insomnia) Qty: 60 2RF Continued lorazepam 0.5 mg tablet 0.5 mg PO Q8H PRN (Reason: anxiety) 30 Days Qty: 90 0RF Spiriva Respimat 2.5 mcg/actuation mist 2 puff inhalation DAILY vitamin B complex Tablet 1 tab PO DAILY folic acid 1 mg Tablet 1 mg PO DAILY dapagliflozin propanediol [Farxiga] 10 mg tablet 10 mg PO DAILY Qty: 30 2RF rosuvastatin 5 mg tablet 5 mg PO DAILY ProAir RespiClick 90 mcg/actuation aerosol powdr breath activated 2 inh inhalation Q4-6H PRN (Reason: shortness of breath or wheezing) Qty: 1 2RF Eliquis 5 mg tablet 5 mg PO BID metoprolol succinate 100 mg tablet extended release 24 hr 100 mg PO DAILY cholecalciferol (vitamin D3) 50 mcg (2,000 unit) capsule 50 mcg PO DAILY fluticasone furoate-vilanterol [Breo Ellipta] 200-25 mcg/dose blister with device 1 inh inhalation DAILY 30 Days Qty: 60 2RF Discontinued losartan 25 mg tablet 25 mg PO DAILY 90 Days Qty: 90 3RF furosemide 40 mg tablet 40 mg PO DAILY 90 Days Qty: 90 3RF Protocol: Hold for SBP< HOLD for SBP < : 90 Discharge Orders: Discharge Order (Routine); Ordered 12/08/23 Ordered By: [place] Diet: Advance to usual diet Activity on Discharge: As tolerated Stand Alone Forms: Patient Portal Discharge page Print Language: Albanian Care Plan Goals: To stay healthy and out of the hospital. Health Concerns: A. Fib with RVR CHF Plan of Treatment: New Meds / changes: Take lasix 40mg everyday Take digoxin 0.25mg every day (hold this on the morning of 12/10 for your cardioversion) Follow up on 12/11/23 () for cardioversion Take you Eliquis - do not miss any doses Hold your Losartan until told to restart For your cough / COPD -- take prednisone as prescribed Use Nebulizer as needed Follow up with Lung doctor as scheduled. Assessment: see d/c summary Discharge Date/Time: 12/08/23 12:40
[2023-12-08 11:37] VITALS: PULSE 90; RESP 16; O2SAT 96
--- NOTE | 2023-12-08 11:43 | PM.PNCARD ---
Subjective Subjective Date of Service: 12/08/23 Principal diagnosis: Atrial fibrillation, congestive heart failure. Interval history: Patient says she has been breathing well. Although intake and output chart appear to be inaccurate. She says she has been going to bathroom quite a bit. Taking all her medications. Heart rate is better controlled at this point time. Review of Systems Review of Systems Yes all other systems are reviewed and are negative Physical Exam Vital Signs: Last Vital Signs Temp 97.7 F 12/08/23 07:47 Pulse 90 12/08/23 11:37 Resp 16 12/08/23 11:37 BP 110/55 L 12/08/23 09:20 Pulse Ox 100 12/08/23 07:47 O2 Del Method Nasal Cannula 12/08/23 07:47 O2 Flow Rate 2 12/08/23 07:47 BMI result Body Mass Index 20.4 Const General: cooperative, comfortable, alert and awake Nutritional Appearance: thin Orientation/consciousness: patient oriented x3 Neck Neck: Yes trachea midline, Yes supple and Yes no JVD Resp Effort & Inspection: normal respiratory effort Auscultation: clear to auscultation bilaterally Cardio Jugular venous distension: no JVD Rate: regular rate Rhythm: abnormal rhythm irregularly irregular GI Auscultation: normal bowel sounds Skin General skin exam: no rashes or lesions noted Neuro General: patient oriented x3 and no focal motor deficits Objective Labs and Meds 12/06/23 05:54 12/08/23 07:33 Lab results: Laboratory Results - last 24 hr 12/08/23 07:33 Hold Purple Top SEE NOTE Sodium 138 Potassium 4.3 Chloride 97 Carbon Dioxide 33 H Anion Gap 12 BUN 15 Creatinine 0.72 Estim Creat Clear Calc 53.9 Estimated GFR > 60 Random Glucose 80 Calcium 9.3 Progress Note: A&P Assessment and plan (1) Acute exacerbation of congestive heart failure: Status: Acute Assessment and Plan: Acute congestive heart failure most likely due to atrial fibrillation which is persistent. Doing much better with diuresis. Discharged home on Lasix 40 mg daily and add Jardiance 10 mg to regimen. I think she will do very well with rhythm control approach will pursue that in the near future. Most likely require antiarrhythmic drug therapy. For now discharge with rate control with metoprolol and digoxin will schedule RA in near future for synchronized cardioversion as outpatient. Continue metoprolol therapy for neurohormonal modulation. Continue optimization for pulmonary function. (2) Atrial fibrillation with RVR: Status: Acute Assessment and Plan: Atrial fibrillation rapid ventricular response with better rate control. Continue metoprolol and add digoxin. Will schedule him for synchronized cardioversion Saturday. Hold digoxin day. Continue full oral anticoagulation with Eliquis. Will follow with her as outpatient. Time Spent With Patient Time: Total time managing care of this patient today ____ minutes. Progress Note: Quality Stroke Does the patient have a stroke diagnosis?: No Procedures Date of Service Date of Service: 12/08/23
== END 2023-12-08 12:40 | disposition home or self-care (01) | DRG 291 ==
LOC: HO.ED 12-06 01:00 → HO.EDOVER 12-06 04:46 → HO.S3 12-06 23:10 → HO.IMC 12-07 09:03
PROVIDERS: Physician Assistant; Physician Assistant Medical; Admitting Provider Student in an Organized Health Care Education/Training Program; Emergency Provider Emergency Medicine Emergency Medical Services; PCP Internal Medicine; Visit Provider Family Medicine
DX: I11.0 Hypertensive heart disease with heart failure (principal); I50.23 Acute on chronic systolic (congestive) heart failure; J44.1 Chronic obstructive pulmonary disease with (acute) exacerbation; F41.9 Anxiety disorder, unspecified; J96.11 Chronic respiratory failure with hypoxia; E87.6 Hypokalemia; I48.0 Paroxysmal atrial fibrillation; E78.2 Mixed hyperlipidemia; F39 Unspecified mood [affective] disorder; Z87.891 Personal history of nicotine dependence; Z99.81 Dependence on supplemental oxygen; Z79.01 Long term (current) use of anticoagulants; Z79.51 Long term (current) use of inhaled steroids; Z79.899 Other long term (current) drug therapy
CPT/HCPCS: 36415; 70450; 71045; 72125; 80048; 80053; 82803; 83605; 83880; 84145; 84484; 85025; 85610; 87040; 93005; 93308; 94640; 99285; J1940; J2919; Q9957

== ENCOUNTER → 2023-12-05 | Outpatient (BNV) | payer MEDICARE, SELFPAY | PROVIDERS: Admitting Provider Student in an Organized Health Care Education/Training Program; Emergency Provider Emergency Medicine Emergency Medical Services; PCP Internal Medicine; Visit Provider Internal Medicine Cardiovascular Disease | DX: R06.09 Other forms of dyspnea (principal); I48.91 Unspecified atrial fibrillation; I49.3 Ventricular premature depolarization | CPT/HCPCS: 93010 ==

== ENCOUNTER → 2023-12-06 00:02 | Outpatient (BNV) | payer MEDICARE, SELFPAY | PROVIDERS: Emergency Provider Emergency Medicine Emergency Medical Services; PCP Internal Medicine; Visit Provider Student in an Organized Health Care Education/Training Program | DX: I50.9 Heart failure, unspecified (principal); I48.91 Unspecified atrial fibrillation | CPT/HCPCS: 99223; 99233; 99239; 99499 ==

== ENCOUNTER 2023-12-06 04:15 | Outpatient (BNV) | payer MEDICARE, SELFPAY | END 2023-12-06 07:00 | PROVIDERS: Admitting Provider Student in an Organized Health Care Education/Training Program; Emergency Provider Emergency Medicine Emergency Medical Services; PCP Internal Medicine; Visit Provider Internal Medicine Cardiovascular Disease | DX: I50.9 Heart failure, unspecified (principal) | CPT/HCPCS: 93308; 93321 ==

== ENCOUNTER → 2023-12-06 04:15 | Outpatient (BNV) | payer MEDICARE, SELFPAY | PROVIDERS: Admitting Provider Student in an Organized Health Care Education/Training Program; Emergency Provider Emergency Medicine Emergency Medical Services; PCP Internal Medicine; Visit Provider Internal Medicine Cardiovascular Disease | DX: I50.9 Heart failure, unspecified (principal); I48.91 Unspecified atrial fibrillation | CPT/HCPCS: 99222; 99233 ==

== ENCOUNTER 2023-12-11 10:39 | Day surgery (SDC) | payer MEDICARE, SELFPAY ==
--- NOTE | 2023-12-10 09:57 | HO.ANESPROP2 ---
Documented by User: Milena Boudreaux NP 12/10/23 10:04 HPI - Anesthesia Eval Consult details Narrative: 78yo F for Cardioversion [facility] admit 11/2023: Hospital course: Patient was admitted for AFib with RVR and acute CHF. She was initiated on IV Lasix 40 mg daily. Initially her heart rate was controlled, however digoxin added to regimen as she remained tachycardic. There is also a possible component of mild COPD exacerbation for which she was started on prednisone. With these measures, she improved over the course of her hospitalization. She will be discharged home on Lasix 40 mg, digoxin 0.25 mg daily. Her losartan was held as she had borderline blood pressures. She is to continue her baseline medications with the exception of losartan. She was seen by Cardiology during her hospitalization with plans for cardioversion. She has been informed to hold her digoxin on the day of the cardioversion. Tentative date for cardioversion is 12/11/23. [facility] Active Problems Active Problems: All Active Problems S/P cardiac cath (Acute) CHRISTIAN (generalized anxiety disorder) (Acute) Hospital discharge follow-up (Acute) Cardiomyopathy (Acute) Acute hypoxemic respiratory failure (Acute) NSTEMI (non-ST elevated myocardial infarction) (Acute) COPD (chronic obstructive pulmonary disease) (Acute) Atrial fibrillation with rapid ventricular response (Acute) Congestive heart failure (Acute) Shortness of breath (Acute) Elevated troponin (Acute) Atrial fibrillation with rapid ventricular response (Acute) Congestive heart failure (Acute) Vitamin D deficiency (Acute) Muscle cramps (Acute) Fatigue (Acute) Urinary incontinence (Acute) Skin lesion (Acute) Dyslipidemia (Acute) Cough due to DAISY inhibitor (Acute) Carpal tunnel syndrome of right wrist (Acute) Carpal tunnel syndrome of left wrist (Acute) Neck pain (Acute) GERD (gastroesophageal reflux disease) (Acute) Aortic regurgitation (Acute) Right hand pain (Acute) Leg edema (Acute) COPD (chronic obstructive pulmonary disease) (Acute) Allergic rhinitis (Acute) Cervical radiculopathy (Acute) Past Medical History Medical History Atrial fibrillation with RVR Acute exacerbation of congestive heart failure Acute on chronic hypoxic respiratory failure Acute HFrEF (heart failure with reduced ejection fraction) Chronic lung disease Skin lesion Dyslipidemia Cough due to DAISY inhibitor Neck pain GERD (gastroesophageal reflux disease) Aortic regurgitation Right hand pain Leg edema COPD (chronic obstructive pulmonary disease) Allergic rhinitis Anxiety Hypertension Family History Family History Father Medical history unknown Mother Medical history unknown Surgical History Surgical History Carpal tunnel syndrome, right History of bilateral cataract extraction History of partial hysterectomy Social History Social History Household Members: None and Other Housing: House Do you presently have visiting nurse or other home services: No Alcohol intake: current Alcohol intake frequency: holidays/special occasions only Alcohol type: other Patient Tobacco Use Status: Former Tobacco user Tobacco use type: Cigarette e-Cigarette/Vaping Use: Never Used Second Hand Smoke Exposure: No Use of substances other than those prescribed or required for medical reasons: No Are you DNR?: No Advance Directives: No Advance Directives Information Provided: Yes Advance Directives Date on File: 08/25/20 service: No Current occupational status: retired Cognitive needs: No Hearing needs: No Vision needs: No Meds Allergies Allergy/AdvReac Type Severity Reaction Status Date / Time Sulfa (Sulfonamide Allergy Intermediate nausea, Verified 12/11/23 11:53 Antibiotics) vomiting Home Medications ?Medication ?Instructions ?Recorded ?Confirmed ?Last Taken ?Type cholecalciferol (vitamin D3) 50 50 mcg PO DAILY 08/09/21 12/11/23 12/05/23 History mcg (2,000 unit) capsule tiotropium bromide 2.5 2 puff inhalation DAILY 08/26/23 12/11/23 12/11/23 08:00 History mcg/actuation mist for inhalation (Spiriva Respimat) rosuvastatin 5 mg tablet 5 mg PO DAILY 11/06/23 12/11/23 12/05/23 History apixaban 5 mg tablet (Eliquis) 5 mg PO BID 11/19/23 12/11/23 12/11/23 08:00 History metoprolol succinate 100 mg 100 mg PO DAILY 11/19/23 12/11/23 12/11/23 08:00 History tablet,extended release 24 hr folic acid 1 mg tablet 1 mg PO DAILY 12/06/23 12/11/23 12/11/23 08:00 History vitamin B complex 1 tab PO DAILY 12/06/23 12/11/23 12/05/23 History Exam Pertinent Lab Results Pertinent Lab Results: Laboratory Tests 12/06/23 12/08/23 05:54 07:33 WBC 10.9 H Hgb 12.4 Hct 37.3 Plt Count 230 Sodium 138 Potassium 4.3 Chloride 97 Carbon Dioxide 33 H BUN 15 Creatinine 0.72 Narrative Narrative: ECHO 11/2023 Conclusions: - Mildly reduced LV ejection fraction of 45-50% with pseudonormal filling pattern with regional wall motion abnormality EKG 11/2023 Vent. Rate : 099 BPM Atrial Rate : 000 BPM P-R Int : 000 ms QRS Dur : 086 ms QT Int : 338 ms P-R-T Axes : 000 -35 201 degrees QTc Int : 433 ms Atrial fibrillation with premature ventricular or aberrantly conducted complexes Left axis deviation Septal infarct , age undetermined T wave abnormality, consider lateral ischemia Abnormal ECG When compared with ECG of 07-NOV-2023 08:37, Septal infarct is now Present Nonspecific T wave abnormality has replaced inverted T waves in Inferior leads T wave inversion less evident in Anterolateral leads Assessment and Plan Assessment Anesthesia Assessment: Chart Reviewed Documented by User: Radha Solomon MD 12/11/23 13:07 [facility] Past Medical History Medical History Atrial fibrillation with RVR Acute exacerbation of congestive heart failure Acute on chronic hypoxic respiratory failure Acute HFrEF (heart failure with reduced ejection fraction) Chronic lung disease Skin lesion Dyslipidemia Cough due to DAISY inhibitor Neck pain GERD (gastroesophageal reflux disease) Aortic regurgitation Right hand pain Leg edema COPD (chronic obstructive pulmonary disease) Allergic rhinitis Anxiety Hypertension Family History Family History Father Medical history unknown Mother Medical history unknown Family history of problems with anesthesia: No Surgical History Surgical History Carpal tunnel syndrome, right History of bilateral cataract extraction History of partial hysterectomy History of Problems with Anesthesia: No Social History Social History Household Members: None and Other Housing: House Do you presently have visiting nurse or other home services: No Alcohol intake: current Alcohol intake frequency: holidays/special occasions only Alcohol type: other Patient Tobacco Use Status: Former Tobacco user Tobacco use type: Cigarette e-Cigarette/Vaping Use: Never Used Second Hand Smoke Exposure: No Use of substances other than those prescribed or required for medical reasons: No Are you DNR?: No Advance Directives: No Advance Directives Information Provided: Yes Advance Directives Date on File: 08/25/20 service: No Current occupational status: retired Cognitive needs: No Hearing needs: No Vision needs: No Meds Allergies Allergy/AdvReac Type Severity Reaction Status Date / Time Sulfa (Sulfonamide Allergy Intermediate nausea, Verified 12/11/23 11:53 Antibiotics) vomiting Home Medications ?Medication ?Instructions ?Recorded ?Confirmed ?Last Taken ?Type cholecalciferol (vitamin D3) 50 50 mcg PO DAILY 08/09/21 12/11/23 12/05/23 History mcg (2,000 unit) capsule tiotropium bromide 2.5 2 puff inhalation DAILY 08/26/23 12/11/23 12/11/23 08:00 History mcg/actuation mist for inhalation (Spiriva Respimat) rosuvastatin 5 mg tablet 5 mg PO DAILY 11/06/23 12/11/23 12/05/23 History apixaban 5 mg tablet (Eliquis) 5 mg PO BID 11/19/23 12/11/23 12/11/23 08:00 History metoprolol succinate 100 mg 100 mg PO DAILY 11/19/23 12/11/23 12/11/23 08:00 History tablet,extended release 24 hr folic acid 1 mg tablet 1 mg PO DAILY 12/06/23 12/11/23 12/11/23 08:00 History vitamin B complex 1 tab PO DAILY 06/07/24 06/12/24 06/06/24 History Exam Airway Heart: afib Lungs: cta Assessment and Plan Assessment Anesthesia Assessment: Anesthesia Plan Discussed Final Anesthetic Review Family History of Problems with Anesthesia: No History of Problems with Anesthesia: No NPO: Yes ASA Class: III Final Preanesthetic Review: No Changes in Pt Med Stat, Meds/Allgs Chart Reviewed, Consent Obtained/Reviewed and Anes Risks/Benef Reviewed Patient Risk: Intermediate Procedure Risk: Low Anesthetic Plan Anesthetic Plan: MAC: Disposition: Standard PACU
[2023-12-11 12:04] VITALS: BMI 19.7
[2023-12-11 12:09] VITALS: BP 129/96; PULSE 74; RESP 18; TEMP 36.4; O2SAT 97
[2023-12-11] MEDS: 0.9 % Sodium Chloride 1,000 ML 50 ML IVCONT (12:44)
--- NOTE | 2023-12-11 13:05 | MHC.SHP ---
Pre-Procedural Eval Section A - 24 Hr Update-Section A only Date of Service: 12/11/23 The patient is an INPATIENT: No Changes since office visit: Yes Cold of Flu in the past 2 weeks, Yes Changes in Medication and Yes Patient answered all questions; No New Medical Problems The patient has been examined within 24 hours of the surgical procedure. The History & Physical has been completed within 30 days and I have reviewed it.: Yes Section B - Complete if H&P > 30 days Chief Complaint: Unspecified atrial fibrillation Allergies: Allergies Allergy/AdvReac Type Severity Reaction Status Date / Time Sulfa (Sulfonamide Allergy Intermediate nausea, Verified 12/11/23 11:53 Antibiotics) vomiting Plan I have reviewed the history and physical and performed a pertinent physical examination on my patient. No changes have occurred unless specified. Time Spent With Patient Time: Total time managing care of this patient today ____ minutes.
[2023-12-11 13:33] VITALS: BP 108/50; PULSE 62; RESP 16; TEMP 36.3; O2SAT 100
--- NOTE | 2023-12-11 13:34 | ECG_ITS ---
Test Reason : post cardioversion Blood Pressure : / mmHG Vent. Rate : 067 BPM Atrial Rate : 067 BPM P-R Int : 178 ms QRS Dur : 088 ms QT Int : 416 ms P-R-T Axes : 058 -35 097 degrees QTc Int : 439 ms Sinus rhythm with Premature atrial complexes Left axis deviation Minimal voltage criteria for LVH, may be normal variant ( Rosales product ) Nonspecific T wave abnormality Abnormal ECG When compared with ECG of 06-DEC-2023 00:28, Sinus rhythm has replaced Atrial fibrillation Referred By: Jean-Pierre Reilly Electronically Signed By:RUBEN HERNDON
[2023-12-11 13:38] VITALS: BP 109/56; PULSE 66; RESP 16; O2SAT 100
[2023-12-11 13:43] VITALS: BP 116/51; PULSE 66; RESP 16; O2SAT 100
[2023-12-11 13:48] VITALS: BP 111/45; PULSE 68; RESP 15; O2SAT 100
[2023-12-11 14:08] VITALS: BP 133/54; PULSE 70; RESP 18; TEMP 36.3; O2SAT 100
--- NOTE | 2023-12-11 14:30 | HO.CARDIVERS ---
Cardioversion Procedure Note Cardioversion Date of Procedure: 12/11/2023 Ordering Provider: Jaylen Reilly Performing Provider: Jaylen Reilly Indication for Procedure: Persistent symptomatic atrial fibrillation with heart failure Pre-Op Diagnosis: Same Performed with Transesophageal Echo: No Consent: Verbal and Written consent was obtained from the patient before starting use of oral anticoagulation in no digoxin. The patient was made aware of the risk of synchronized cardioversion including benefits and alternatives Procedure: After consent obtained, cardioversion pads were attached in anteroposterior configuration and the patient was sedated by the anesthesia team. Once adequate sedation achieved, patient was delivered 200 joules of biphasic synchronized energy in anteroposterior configuration. Complications: None Impression: Successful conversion to sinus rhythm Recommendations: 1. Twelve lead EKG 2. Continue full oral anticoagulation with Eliquis 3. Continue metoprolol and discontinue digoxin 4. Follow up in the office in 2-4 weeks
== END 2023-12-11 14:46 | disposition home or self-care (01) ==
PROVIDERS: PCP Internal Medicine; Visit Provider Internal Medicine Cardiovascular Disease
PROC: 5A2204Z Restoration of Cardiac Rhythm, Single (ICD-10-PCS; principal; 2023-12-11 13:00)
DX: I48.19 Other persistent atrial fibrillation (principal); I50.9 Heart failure, unspecified; Z88.2 Allergy status to sulfonamides
CPT/HCPCS: 92960; 93005; J2704

== ENCOUNTER → 2023-12-11 10:39 | Outpatient (BNV) | payer MEDICARE, SELFPAY | PROVIDERS: PCP Internal Medicine; Visit Provider Internal Medicine Cardiovascular Disease | DX: I48.19 Other persistent atrial fibrillation (principal); I50.9 Heart failure, unspecified; I49.1 Atrial premature depolarization | CPT/HCPCS: 92960; 93010 ==

== ENCOUNTER 2023-12-17 09:25 | Outpatient (REF) | payer MEDICARE, SELFPAY ==
--- NOTE | ~2023-12-17 | XR_ITS ---
EXAMINATION: XR HIP, RIGHT CLINICAL INFORMATION: Pain in right hip COMPARISON: None available. TECHNIQUE: Two views of the right hip. FINDINGS: The bones are diffusely demineralized. No fracture. Alignment is anatomic. There is moderate narrowing of the cartilage space of the right hip. Calcific densities are seen adjacent to the femoral head. There is moderate degenerative change of the pubic symphysis. Vascular calcifications are noted. XR/XR hip RT min 2V IMPRESSION: Moderate osteoarthritis of the right hip.
== END 2023-12-17 09:26 | disposition home or self-care (01) ==
LOC: HO.XRAY 09:25
PROVIDERS: PCP Internal Medicine; Visit Provider Internal Medicine
DX: M25.551 Pain in right hip (principal)
CPT/HCPCS: 73502

== ENCOUNTER → 2023-12-23 12:36 | Outpatient (REF) | payer MEDICARE, SELFPAY ==
--- NOTE | 2023-12-23 12:40 | HM_ITS ---
Conclusion: 1. Patient was monitored for total period of 2 days and 23 hours 2. Baseline rhythm was normal sinus rhythm with average heart rate of 67 beats per minute 3. Frequent PACs noted with total burden of 1.4% 4. Frequent PVCs noted with total burden of 2.1% 5. No pauses noted 6. Patient marked the counter 2 times correlating with sinus rhythm MTDD
== END ==
LOC: HO.CARD 12:36
PROVIDERS: PCP Internal Medicine; Visit Provider Nurse Practitioner Family
DX: I48.91 Unspecified atrial fibrillation (principal)
CPT/HCPCS: 93242

== ENCOUNTER → 2023-12-23 12:40 | Outpatient (BNV) | payer MEDICARE, SELFPAY | PROVIDERS: PCP Internal Medicine; Visit Provider Internal Medicine Cardiovascular Disease | DX: I49.1 Atrial premature depolarization (principal); I49.3 Ventricular premature depolarization | CPT/HCPCS: 93244 ==

== ENCOUNTER 2023-12-31 13:32 | Outpatient (AMB) | payer MEDICARE, SELFPAY ==
[2023-12-31 13:42] VITALS: BP 114/52; PULSE 54; BMI 20.9
--- NOTE | 2023-12-31 13:42 | A.OFFVIS_ITS ---
Vital Signs 12/31/23 13:42 Height 5 ft 4 in Weight 121 lb 11.123 oz BMI 20.9 BP 114/52 L Blood Pressure Location Lt brachial Position Sitting Pulse 54 Pulse Source Pulse Oximeter Intake Visit Reasons: Pt. Feet/Legs Swelling. Assistive Technology Trainer Required: No Metal Hardener: Metal Hardener Present Allergies Sulfa (Sulfonamide Antibiotics) Allergy (Intermediate, Verified 12/31/23 13:47) nausea, vomiting Medication List - Last Reconciled 12/31/23 by GUERRERO Dyer albuterol sulfate 90 mcg/actuation (ProAir RespiClick) 2 inhalations inhalation Q4-6H PRN apixaban (Eliquis) 5 mg PO BID 90 days cholecalciferol (vitamin D3) 50 mcg PO DAILY 90 days clonazepam 0.5 mg PO BID 7 days fluticasone furoate-vilanterol 200-25 mcg/dose (Breo Ellipta) 1 inh inhalation DAILY 30 days folic acid 1 mg PO DAILY furosemide (Lasix) 60 mg PO DAILY melatonin 6 mg (2 x 3 mg) PO BEDTIME PRN metoprolol succinate ER 100 mg PO DAILY 90 days rosuvastatin 5 mg PO DAILY 90 days tiotropium bromide 2.5 mcg/actuation (Spiriva Respimat) 2 puffs inhalation DAILY vitamin B complex 1 tab PO DAILY HPI HPI Pt. Feet/Legs Swelling.: Details: Yasmeen is a 78-year-old female with past medical history of hyperlipidemia, moderate AR, COPD, smoking who was recently admitted to [facility] with shortness of breath. She was found to have atrial fibrillation with rapid ventricular response, heart failure, reduced EF. She was treated for heart rate control and put on anticoagulation. She was diuresed and started on daily Lasix. Due to elevated troponin and echocardiogram finding she was transferred to [facility] for cardiac catheterization which showed normal coronaries. On follow-up visit she was doing generally well. A few days later she was admitted to [facility] with increasing edema and shortness of breath. A limited echo showed EF 45-50%. She was diuresed and sent home with Lasix 40 mg daily. She underwent a outpatient cardioversion on 12/11/2023. She had called the office reporting increasing edema and Lasix was increased to 40 mg daily and today she presents for follow-up. Today she reports that her feet and ankles have more swelling now then when she presented with her last hospital admission. She has chronic shortness of breath but notices some hoarseness to her voice recently. She also has been having some orthopnea and wakes up frequently. She is wearing her oxygen continually. No cough or fever. No chest discomfort at rest or with activity. No lightheadedness, presyncope, syncope, falls. Taking all meds as directed. Cj paul is present. [facility] Medical History Atrial fibrillation with RVR Acute exacerbation of congestive heart failure Acute on chronic hypoxic respiratory failure Acute HFrEF (heart failure with reduced ejection fraction) Chronic lung disease Skin lesion Dyslipidemia Cough due to DAISY inhibitor Neck pain GERD (gastroesophageal reflux disease) Aortic regurgitation Right hand pain Leg edema COPD (chronic obstructive pulmonary disease) Allergic rhinitis Anxiety Hypertension Surgical History Carpal tunnel syndrome, right History of bilateral cataract extraction History of partial hysterectomy Family History Father Medical history unknown Mother Medical history unknown Social History Household Members: None and Other Housing: House Do you presently have visiting nurse or other home services: No Alcohol intake: current Alcohol intake frequency: holidays/special occasions only Alcohol type: other Patient Tobacco Use Status: Former Tobacco user Tobacco use type: Cigarette e-Cigarette/Vaping Use: Never Used Second Hand Smoke Exposure: No Advance Directives Date on File: 08/25/20 service: No Current occupational status: retired Cognitive needs: No Hearing needs: No Vision needs: No Review of Systems Const All systems reviewed & are unremarkable except as noted in HPI and below ENT Denies dizziness Card Denies chest pain, Denies chest pain at rest, Denies chest pain with activity, Denies rapid heart rate, Reports pedal edema, Denies edema, Reports leg edema, Denies lightheadedness, Denies palpitations, Denies dyspnea, Reports dyspnea on exertion and Denies orthopnea Resp Denies cough, Denies dyspnea and Reports dyspnea on exertion GI Denies hematochezia and Denies change in stool character Musc Denies abnormal gait, Reports limited range of motion, Reports muscle cramps, Denies muscle weakness, Denies numbness, Denies radiating pain into limb, Denies stiffness and Denies tingling Neuro Denies abnormal gait, Denies dizziness, Denies numbness and Denies tingling Endo Denies palpitations Physical Exam Vital Signs: Last Vital Signs Pulse 54 12/31/23 13:42 BP 114/52 L 12/31/23 13:42 BMI result Body Mass Index 20.9 Const General: cooperative, healthy appearing, comfortable and no acute distress Orientation/consciousness: patient oriented x3 Neck Neck: Yes normal visual inspection and Yes no JVD Resp Effort & Inspection: normal respiratory effort Auscultation: clear to auscultation bilaterally, no rales, rhonchi (some mild congestion noted in lower lobes) and no wheezes Cardio Jugular venous distension: no JVD Rate: regular rate Rhythm: regular rhythm Heart sounds: S1 normal heart sound present, S2 normal heart sound present, no murmurs and no rubs Neuro General: patient oriented x3 Extrem Other: soft pitting edema of feet and lower legs Psych Appearance: grossly normal Mental Status: mental status grossly normal Speech and movement: Normal speech and movement present Office Procedures EKG Details: Today, read by me, sinus bradycardia, left axis deviation, T-wave abnormality, inversion lead 3, AVF, V3, V4, rate 56, QTC 432 milliseconds [id number], Complete Assessment & Plan Assessment & Plan (1) Atrial fibrillation with rapid ventricular response: Code(s): I48.91 - Unspecified atrial fibrillation Category: Medical Plan: Recent [facility] admission for shortness of breath. Found to have new onset atrial fibrillation with RVR. She was treated for heart rate control and put on metoprolol XL 100 mg daily. She was started on on Eliquis 5 mg b.i.d. She remained in atrial fibrillation at the time of her hospital discharge and was doing generally well at follow-up visit. A few days later she was admitted to [facility] with increasing shortness of breath and edema. Following that admission she had a outpatient cardioversion on 12/11/2023 with successful conversion to sinus rhythm. She had been on digoxin which was stopped and just continued on metoprolol. Holter monitor done on 12/23/2023 shows sinus rhythm with occasional PVCs and PACs, average rate 67. EKG done today is showing sinus bradycardia, left axis deviation, T-wave abnormality in the inferior and anterior leads. She denies any heart palpitations. She continue on Metoprolol for rate control and Eliquis for anticoagulation. No bleeding issues reported. (2) Cardiomyopathy: Code(s): I42.9 - Cardiomyopathy, unspecified Category: Medical Plan: During recent hospital admission echocardiogram showed EF 30%, wall motion abnormality suggesting takotsubo cardiomyopathy versus multivessel CAD. Her troponins were elevated up to 160. Once stabilized she was transferred for cardiac catheterization done on 11/11/2023 showing normal coronary arteries. She was thought to have takotsubo cardiomyopathy. She was on metoprolol XL and losartan for neurohormonal modulation. Repeat echo 12/06/23 showed EF 45-50% with inferior wall motion abnormality. She was readmitted for CHF and diuresed. Her Lasix was increased to 40mg daily on discharge, then increased to 60mg daily due to leg swelling. Today she comes for sooner OV and has soft pitting edema in lower legs, mild congestion in lower lung lobes. Her weight is up 3 lb since hospital discharge. Will send her for labs today including stat BMP and BNP.- labs available prior to completion of this note. Potassium 4.2, BUN 17, creatinine 0.89, BNP 2631. Will have her increase her Lasix to 40 mg b.i.d.. Repeat labs in 1 week. She does have a cardiology follow-up already scheduled for 2 weeks. Will have her keep that appointment. Instructed on avoidance of as much salt as able. Continue metoprolol, her losartan was stopped when she was in the hospital due to low blood pressures. At this time her blood pressure is 114/52 and OB increasing her Lasix. Will keep off the losartan and plan to restart at follow-up visit if able. She had previously been on Farxiga however it is now off her med list. She states that her PCP stopped it, reason unknown. Will check with PCP about restart of Farxiga or use of Jardiance. Plan for a recheck of labs prior to her next visit in 2 weeks. (3) Congestive heart failure: Code(s): I50.9 - Heart failure, unspecified Category: Medical Plan: As above. (4) NSTEMI (non-ST elevated myocardial infarction): Code(s): I21.4 - Non-ST elevation (NSTEMI) myocardial infarction Category: Medical Plan: Initially treated for NSTEMI during October hospital admission. Further testing confirmed takotsubo cardiomyopathy. (5) S/P cardiac cath: Comment: 11/11/2023 showing normal coronary arteries Code(s): Z98.890 - Other specified postprocedural states Category: Surgical Plan: As above (6) Hospital discharge follow-up: Code(s): Z09 - Encounter for follow-up examination after completed treatment for conditions other than malignant neoplasm Category: Medical Plan: As above Plan Time spent on chart review, documentation, interview and assessment Orders: Orders Basic Metabolic Panel Today R60.9 - Edema, unspecified Basic Metabolic Panel 1 Week I42.9 - Cardiomyopathy, unspecified B Type Natriuretic Peptide Today R60.9 - Edema, unspecified B Type Natriuretic Peptide 1 Week I42.9 - Cardiomyopathy, unspecified Medications: Changed From furosemide (Lasix) 60 mg PO DAILY To furosemide (Lasix) dose increase 40 mg PO BID 30 days 60 tabs 1RF Coding Level of Care Code Est Pt Level 4 (92479) Diagnoses Atrial fibrillation with rapid ventricular response I48.91 Cardiomyopathy I42.9 Congestive heart failure I50.9 NSTEMI (non-ST elevated myocardial infarction) I21.4 S/P cardiac cath Z98.890 Hospital discharge follow-up Z09 CPT Codes EKG - CPT: 82035-[id number], Complete ([id number]) Time Spent (min) 30
== END 2023-12-31 15:00 | disposition home or self-care (01) ==
PROVIDERS: PCP Internal Medicine; Visit Provider Nurse Practitioner Family
DX: I48.91 Unspecified atrial fibrillation (principal); I42.9 Cardiomyopathy, unspecified; I50.9 Heart failure, unspecified; I21.4 Non-ST elevation (NSTEMI) myocardial infarction; Z98.890 Other specified postprocedural states; Z09 Encounter for follow-up examination after completed treatment for conditions other than malignant neoplasm
CPT/HCPCS: 93010; 99214

== ENCOUNTER 2023-12-31 13:32 | Outpatient (REF) | payer MEDICARE, SELFPAY ==
[2023-12-31 15:39] LABS: Anion Gap 11 (12-20); Blood Urea Nitrogen 17 mg/dL (9-16); Calcium 9.2 mg/dL (8.4-10.2); Carbon Dioxide 30 mmol/L (22-29); Chloride 98 mmol/L (96-108); Estimated Glomerular Filt Rate > 60; Glucose Random 92 mg/dL (60-115); Potassium 4.2 mmol/L (3.3-5.1); Sodium 135 mmol/L (135-145)
[2023-12-31 15:46] LABS: B Type Natriuretic Peptide 2631 pg/mL (<100)
== END 2023-12-31 13:33 | disposition home or self-care (01) ==
LOC: HO.LAB 13:32
PROVIDERS: PCP Internal Medicine; Visit Provider Nurse Practitioner Family
DX: I48.91 Unspecified atrial fibrillation (principal); I42.9 Cardiomyopathy, unspecified; I50.9 Heart failure, unspecified; I21.4 Non-ST elevation (NSTEMI) myocardial infarction; R60.9 Edema, unspecified
CPT/HCPCS: 36415; 80048; 83880; 93005; 99212

== ENCOUNTER 2024-01-06 11:03 | Outpatient (AMB) | payer MEDICARE, SELFPAY ==
--- NOTE | 2024-01-06 11:29 | MHC.OFFVIS ---
Vital Signs 01/06/24 11:30 Height 5 ft 4 in Weight 115 lb 11.883 oz BMI 19.9 BP 112/42 L Blood Pressure Location Lt brachial Position Sitting Pulse 55 Pulse Source Pulse Oximeter Pulse Oximetry (%) 92 Oxygen Delivery Method Room Air Intake Visit Reasons: COPD Intake Note: pt is here for follow up and states she takes breaks oxygen and feeling overall fair, having issues with sleeping and unable to breath and ? her anxiety, and dx with a-fib and had ablation that did work, still having issues with fluid, and had angiogram that was okay at [facility], and hip issue with arthritis. Distance Education Director Required: No Allergies Sulfa (Sulfonamide Antibiotics) Allergy (Intermediate, Verified 01/06/24 12:07) nausea, vomiting Medication List - Last Reconciled 01/06/24 by Tamara Rehman MD albuterol sulfate 90 mcg/actuation (ProAir RespiClick) 2 inhalations inhalation Q4-6H PRN apixaban (Eliquis) 5 mg PO BID 90 days cholecalciferol (vitamin D3) 50 mcg PO DAILY 90 days dapagliflozin propanediol (Farxiga) 5 mg PO DAILY 90 days fluticasone furoate-vilanterol 200-25 mcg/dose (Breo Ellipta) 1 inh inhalation DAILY 30 days folic acid 1 mg PO DAILY furosemide (Lasix) 40 mg PO BID 30 days lorazepam 0.5 mg PO TID PRN 30 days melatonin 6 mg (2 x 3 mg) PO BEDTIME PRN rosuvastatin 5 mg PO DAILY 90 days tiotropium bromide 2.5 mcg/actuation (Spiriva Respimat) 2 puffs inhalation DAILY vitamin B complex 1 tab PO DAILY Do you need a note to return to daycare/school/sports/work: No HPI HPI COPD: Details: LAZARO, 78 YEARS OLD VERY PLEASANT FEMALE IS HERE FOR PULMONARY FOLLOW-UP. 4 WEEKS AGO ADMITTED TO [facility] WITH ACUTE CONGESTIVE HEART FAILURE/ACUTE RESPIRATORY FAILURE SHE HAD ATRIAL FIBRILLATION WITH RAPID VENTRICULAR RESPONSE, AND ALSO HAD NON ST SEGMENT ACUTE AL. AFTER STABILIZING OVER HERE SHE WAS SENT TO [facility] WHERE SHE UNDERWENT CARDIAC CATHETERIZATION, . FOUND TO HAVE NO SIGNIFICANT CORONARY ARTERY DISEASE, BUT VERY LOW EJECTION FRACTION. PATIENT IS BEING TREATED FOR CONGESTIVE HEART FAILURE, SHE IS ON ANTICOAGULATION FOR ATRIAL FIBRILLATION. DUE TO ALL THIS HER SHORTNESS OF BREATH DID INCREASE AND SHE IS HAVING INCREASED PERIPHERAL EDEMA. SHE HAS OXYGEN AT HOME AND USES O2 2 L/MINUTE AT NIGHT AND ALSO P.R.N. DURING THE DAYTIME. SHE DENIES ANY WHEEZING OR COUGH. IN GENERAL SHE IS QUITE WEAK AND ANXIOUS, HAS DIFFICULTY IN SLEEPING DUE TO ANXIETY. [facility] Medical History Atrial fibrillation with RVR Acute exacerbation of congestive heart failure Acute on chronic hypoxic respiratory failure Acute HFrEF (heart failure with reduced ejection fraction) Chronic lung disease Skin lesion Dyslipidemia Cough due to DAISY inhibitor Neck pain GERD (gastroesophageal reflux disease) Aortic regurgitation Right hand pain Leg edema COPD (chronic obstructive pulmonary disease) Allergic rhinitis Anxiety Hypertension Surgical History Carpal tunnel syndrome, right History of bilateral cataract extraction History of partial hysterectomy Family History Father Medical history unknown Mother Medical history unknown Social History Household Members: None and Other Housing: House Do you presently have visiting nurse or other home services: No Alcohol intake: current Alcohol intake frequency: holidays/special occasions only Alcohol type: other Patient Tobacco Use Status: Former Tobacco user Tobacco use type: Cigarette e-Cigarette/Vaping Use: Never Used Second Hand Smoke Exposure: No Advance Directives Date on File: 08/25/20 service: No Current occupational status: retired Cognitive needs: No Hearing needs: No Vision needs: No Review of Systems Const All systems reviewed & are unremarkable except as noted in HPI and below Eyes Reports no additional complaints ENT Reports nasal congestion (Mild intermittent) and Reports neck pain (Mild off and on) Card Denies chest pain, Denies irregular heart rhythm and Reports leg edema (INCREASED EDEMA OF THE ANKLES AND FEET DUE TO CONGESTIVE HEART FAILURE) Resp Reports as per HPI GI Reports heartburn (GERD symptoms controlled with med) Reports no additional complaints Musc Reports neck pain (Mild off and on) Skin/Breast Reports system reviewed and no additional complaints, except as documented Neuro Reports no additional complaints Psych Reports no additional complaints Physical Exam Vital Signs: Last Vital Signs Pulse 55 01/06/24 11:30 BP 112/42 L 01/06/24 11:30 Pulse Ox 92 01/06/24 11:30 Oxygen Delivery Method Room Air 01/06/24 11:30 BMI result Body Mass Index 19.9 Const General: comfortable, no acute distress, alert and awake Orientation/consciousness: patient oriented x3 HEENT Head: Yes normal to inspection General nose exam: No nasal polyps present, No nasal discharge present and Other nasal findings present (Mild nasal congestion is present) Face and sinus: Yes sinuses nontender Mouth: oropharynx normal Throat: Yes posterior oropharynx normal Eyes General: appearance normal, both eyes and all related structures Neck Neck: Yes normal visual inspection, Yes no lymphadenopathy, Yes trachea midline and Yes no JVD Thyroid: Thyroid normal Chest Chest palpation & inspection: normal inspection of the chest, normal palpation of entire chest wall and no tenderness Resp Other: Percussion note hyper-resonant, breath sounds are equal on both sides with prolonged expiratory phase. No wheezes rhonchi, a few fine inspiratory crackles over the basilar areas. Cardio Palpation: normal PMI Rate: regular rate Rhythm: regular rhythm Heart sounds: no gallops and no murmurs GI Palpation (GI): Soft to palpation, nontender, No hepatosplenomegaly present and no masses Auscultation: normal bowel sounds Back/Spine/Pelvis Thoracic/Lumbar Spine: thoracic and lumbar spine normal to inspection Skin General skin exam: no rashes or lesions noted Neuro General: patient oriented x3 and no focal motor deficits Cranial nerves: Yes CN's II-XII intact bilaterally Extrem General: Yes normal to inspection, Yes no calf tenderness and Yes edema (1+ edema around the ankles and of the feet on both sides) Psych Appearance: grossly normal and well kempt Speech and movement: Normal speech and movement present Results Reviewed Results Reviewed: Hospital course during her admission in [facility] is reviewed Assessment & Plan Assessment & Plan (1) COPD (chronic obstructive pulmonary disease): Comment: COPD is severe, had remained stable over the past few years. Treated for an acute exacerbation in August 2023. Recently admitted in the hospital and treated for acute congestive heart failure, secondary to ischemic cardiomyopathy. She continues to be short of breath , with minimal physical exertion Also Continues to have residual generalized weakness . Code(s): J44.9 - Chronic obstructive pulmonary disease, unspecified Category: Medical Qualifiers: COPD type: unspecified COPD Qualified Code(s): J44.9 - Chronic obstructive pulmonary disease, unspecified Plan: Continue Breo 200-251 inhalation daily. Spiriva Respimat 2.5 mg 2 inhalations daily ProAir RespiClick 1 click Q 4-6 hours p.r.n. when outdoors. Levalbuterol inhalation solution in the nebulizer Q 6 hours p.r.n. for acute distress. (2) Allergic rhinitis: Comment: Allergic rhinitis is mild, intermittent and controlled . Code(s): J30.9 - Allergic rhinitis, unspecified Category: Medical Plan: May use OTC antihistaminic isn't such as cetirizine 10 mg once a day p.r.n. (3) NSTEMI (non-ST elevated myocardial infarction): Comment: Recent admission with acute congestive heart failure and NSTEMI, ,AT [facility] FOLLOWED BY CARDIAC CATHETERIZATION AT [facility], HAD POOR EJECTION FRACTION, BEING TREATED FOR CONGESTIVE HEART FAILURE. Code(s): I21.4 - Non-ST elevation (NSTEMI) myocardial infarction Category: Medical Plan: ADVISED TO CONTINUE REGULAR FOLLOW-UP WITH THE CARDIOLOGY SERVICE. (4) Acute hypoxemic respiratory failure: Comment: DURING HER HOSPITALIZATION SHE DID HAVE ACUTE HYPOXEMIC FAILURE, INITIALLY TREATED WITH BIPAP THEN CPAP AND THEN WEANED OFF. SHE WAS ADVISED TO USE O2 2 L/MINUTE, CONTINUOUSLY. Code(s): J96.01 - Acute respiratory failure with hypoxia Category: Medical Plan: HER OXYGENATION IS PRETTY GOOD OVER HERE AND SHE IS ADVISED TO USE O2 2 L/MINUTE AT NIGHT, AND 2 L/MINUTE P.R.N. DURING THE DAYTIME. Medications: New levalbuterol HCl 1.25 mg (3 mL) inhalation Q4-6H PRN 90 mL 3RF shortness of breath or wheezing 30 days Coding Level of Care Code Est Pt Level 4 (85741) Diagnoses Chronic obstructive pulmonary disease, unspecified COPD type J44.9 COPD type: unspecified COPD Allergic rhinitis J30.9 NSTEMI (non-ST elevated myocardial infarction) I21.4 Acute hypoxemic respiratory failure J96.01
[2024-01-06 11:30] VITALS: BP 112/42; PULSE 55; O2SAT 92; BMI 19.9
== END 2024-01-06 11:59 | disposition home or self-care (01) ==
PROVIDERS: PCP Internal Medicine; Visit Provider Internal Medicine
DX: J44.9 Chronic obstructive pulmonary disease, unspecified (principal); J30.9 Allergic rhinitis, unspecified; I21.4 Non-ST elevation (NSTEMI) myocardial infarction; J96.01 Acute respiratory failure with hypoxia
CPT/HCPCS: 99214

== ENCOUNTER → 2024-01-06 11:03 | Outpatient (BNVA) | payer MEDICARE, SELFPAY | PROVIDERS: PCP Internal Medicine; Visit Provider Internal Medicine | DX: J44.9 Chronic obstructive pulmonary disease, unspecified (principal); J30.9 Allergic rhinitis, unspecified; J96.01 Acute respiratory failure with hypoxia; I25.2 Old myocardial infarction | CPT/HCPCS: 99212 ==

== ENCOUNTER 2024-01-07 09:49 | Outpatient (AMB) | payer MEDICARE, SELFPAY ==
--- NOTE | 2024-01-07 09:56 | MHC.PC.OV ---
Vital Signs 01/07/24 09:58 Height 5 ft 1 in Weight 116 lb 4 oz BMI 22.0 BP 112/50 L Blood Pressure Location Lt brachial Position Sitting Pulse 54 Pulse Source Pulse Oximeter Pulse Oximetry (%) 96 Oxygen Delivery Method Room Air Intake Visit Reasons: 3mth f/u Apron Man Required: No Accompanied by: Daughter Allergies Sulfa (Sulfonamide Antibiotics) Allergy (Intermediate, Verified 01/07/24 10:06) nausea, vomiting Medication List - Last Reconciled 01/07/24 by Parul Williamson MD albuterol sulfate 90 mcg/actuation (ProAir RespiClick) 2 inhalations inhalation Q4-6H PRN apixaban (Eliquis) 5 mg PO BID 90 days cholecalciferol (vitamin D3) 50 mcg PO DAILY 90 days dapagliflozin propanediol (Farxiga) 5 mg PO DAILY 90 days fluticasone furoate-vilanterol 200-25 mcg/dose (Breo Ellipta) 1 inh inhalation DAILY 30 days folic acid 1 mg PO DAILY furosemide (Lasix) 40 mg PO BID 30 days levalbuterol HCl 1.25 mg (3 mL) inhalation Q4-6H PRN 30 days lorazepam 0.5 mg PO TID PRN 30 days melatonin 6 mg (2 x 3 mg) PO BEDTIME PRN rosuvastatin 5 mg PO DAILY 90 days tiotropium bromide 2.5 mcg/actuation (Spiriva Respimat) 2 puffs inhalation DAILY vitamin B complex 1 tab PO DAILY Tobacco use date assessed: 09/04/23 Fall risk assessment: 1 Fall in past year Last assessed Fall Risk: 01/07/24 Dental Screening Dental Screen Date: 11/19/23 HPI HPI Comments History of Present Illness Details This is a 78-year-old female with congestive heart failure, COPD, atrial fibrillation with rapid ventricular response and dyslipidemia that comes today accompanied by daughter Kelsea for follow-up on her conditions. Echocardiogram shows ejection fraction 45-50% and is on Farxiga. Workup was negative for ischemia. BNP elevated. Congestive heart failure is follow by cardiology and she denies gaining 5 lb in a week. She has some shortness of breath with her COPD and use oxygen as needed. COPD is follow by pulmonology. Holter monitor shows normal sinus rhythm recently and is on chronic anticoagulation for atrial fibrillation which is also follow by cardiology. Lipid panel was order for the next office visit and is on statins. Has benzodiazepines for anxiety and she is aware can cause addiction and sedation as well as memory loss. Try clonazepam and cause restlessness on her. She complains of insomnia and I will start her on trazodone. Has moderate right hip arthritis and will see ortho this month. Today she is able to walk with no assistive device. [facility] Medical History (Updated 01/07/24 @ 10:31 by Parul Williamson MD) Atrial fibrillation with RVR Acute exacerbation of congestive heart failure Acute on chronic hypoxic respiratory failure Acute HFrEF (heart failure with reduced ejection fraction) Chronic lung disease Skin lesion Dyslipidemia Cough due to DAISY inhibitor Neck pain GERD (gastroesophageal reflux disease) Aortic regurgitation Right hand pain Leg edema COPD (chronic obstructive pulmonary disease) Allergic rhinitis Anxiety Hypertension Surgical History Carpal tunnel syndrome, right History of bilateral cataract extraction History of partial hysterectomy Family History Father Medical history unknown Mother Medical history unknown Social History Household Members: None and Other Housing: House Do you presently have visiting nurse or other home services: No Alcohol intake: current Alcohol intake frequency: holidays/special occasions only Alcohol type: other Patient Tobacco Use Status: Former Tobacco user Tobacco use type: Cigarette e-Cigarette/Vaping Use: Never Used Second Hand Smoke Exposure: No Advance Directives Date on File: 08/25/20 service: No Current occupational status: retired Cognitive needs: No Hearing needs: No Vision needs: No Questionnaire Thrive Questionnaire Date Thrive assessed: 12/06/23 CHRISTIAN-7 AMB Questionnaire CHRISTIAN-7 Date CHRISTIAN - 7 assessed: 11/19/23 Source: Developed by Drs. Mick Kovacs, Yasmeen Rey, Louie Warren and colleagues, with an educational louis from [employer]. Review of Systems Const All systems reviewed & are unremarkable except as noted in HPI and below Card Denies chest pain at rest, Denies chest pain with activity, Denies edema, Denies irregular heart rhythm, Denies claudication, Denies dyspnea, Denies dyspnea on exertion, Denies orthopnea, Denies paroxysmal nocturnal dyspnea and Denies slow heart rate Resp Denies cough, Denies dyspnea and Denies dyspnea on exertion Physical exam (Primary Care) Vital Signs: Last Vital Signs Pulse 54 01/07/24 09:58 BP 112/50 L 01/07/24 09:58 Pulse Ox 96 01/07/24 09:58 Oxygen Delivery Method Room Air 01/07/24 09:58 BMI result Body Mass Index 22.0 Tobacco/Smoking Status: Tobacco use Status Tobacco use date assessed 09/04/23 01/07/24 10:04 Patient Tobacco Use Status Former Tobacco user 01/07/24 10:04 Tobacco use type Cigarette 01/07/24 10:04 e-Cigarette/Vaping Use Never Used 01/07/24 10:04 Thrive Assessment: Date of Thrive Assessment Date Thrive assessed 12/06/23 01/07/24 10:04 Resp Effort & Inspection: normal respiratory effort Auscultation: clear to auscultation bilaterally Cardio Jugular venous distension: no JVD Rate: regular rate Rhythm: regular rhythm Heart sounds: S1 normal heart sound present and S2 normal heart sound present Extrem General: Yes full ROM Assessment and Plan Assessment & Plan (1) COPD (chronic obstructive pulmonary disease): Code(s): J44.9 - Chronic obstructive pulmonary disease, unspecified Plan: Continue long-acting inhaler. Continue Spiriva. Use rescue inhaler as needed. Follow-up with pulmonology. (2) Atrial fibrillation with rapid ventricular response: Code(s): I48.91 - Unspecified atrial fibrillation Plan: Continue Doacs. The goal is heart rate control. Follow-up with Cardiology. (3) Congestive heart failure: Code(s): I50.9 - Heart failure, unspecified Qualifiers: Heart failure type: systolic Heart failure chronicity: chronic Qualified Code(s): I50.22 - Chronic systolic (congestive) heart failure Plan: Continue Farxiga. The goal is to not gain 5 lb in a week. Follow-up with Cardiology. (4) Dyslipidemia: Code(s): E78.5 - Hyperlipidemia, unspecified Plan: Continue statins. Repeat lipid panel in next office visit. (5) Insomnia: Code(s): G47.00 - Insomnia, unspecified Plan: Start trazodone. Sleep hygiene education given. (6) Osteoarthritis of right hip: Code(s): M16.11 - Unilateral primary osteoarthritis, right hip Plan: Follow-up with ortho. (7) CHRISTIAN (generalized anxiety disorder): Code(s): F41.1 - Generalized anxiety disorder Plan: Continue benzodiazepines as needed. Orders: Orders Vitamin D 25-OH Total 4 Months E55.9 - Vitamin D deficiency, unspecified Comprehensive [place]. Panel Fast 4 Months I42.9 - Cardiomyopathy, unspecified NT-proBNP 4 Months I42.9 - Cardiomyopathy, unspecified Lipid Panel 4 Months E78.5 - Hyperlipidemia, unspecified Medications: New trazodone 50 mg PO BEDTIME 30 days PRN 30 tabs 0RF sleep Coding Level of Care Code Est Pt Level 4 (67343) Complex EM visit Add On G2211 Diagnoses COPD (chronic obstructive pulmonary disease) J44.9 Atrial fibrillation with rapid ventricular response I48.91 Chronic systolic congestive heart failure I50.22 Heart failure type: systolic Heart failure chronicity: chronic Dyslipidemia E78.5 Insomnia G47.00 Osteoarthritis of right hip M16.11 CHRISTIAN (generalized anxiety disorder) F41.1 Time Spent (min) 24
[2024-01-07 09:58] VITALS: BP 112/50; PULSE 54; O2SAT 96; BMI 22.0
== END 2024-01-07 10:29 | disposition home or self-care (01) ==
PROVIDERS: PCP Internal Medicine; Visit Provider Internal Medicine
DX: J44.9 Chronic obstructive pulmonary disease, unspecified (principal); I48.91 Unspecified atrial fibrillation; I50.22 Chronic systolic (congestive) heart failure; E78.5 Hyperlipidemia, unspecified; G47.00 Insomnia, unspecified; M16.11 Unilateral primary osteoarthritis, right hip; F41.1 Generalized anxiety disorder
CPT/HCPCS: 99214; G2211

== ENCOUNTER 2024-01-07 10:36 | Outpatient (REF) | payer MEDICARE, SELFPAY ==
[2024-01-07 11:52] LABS: B Type Natriuretic Peptide 2055 pg/mL (<100)
[2024-01-07 12:05] LABS: Anion Gap 14 (12-20); Blood Urea Nitrogen 16 mg/dL (9-16); Calcium 9.2 mg/dL (8.4-10.2); Carbon Dioxide 25 mmol/L (22-29); Chloride 99 mmol/L (96-108); Estimated Glomerular Filt Rate > 60; Glucose Random 97 mg/dL (60-115); Potassium 3.9 mmol/L (3.3-5.1); Sodium 134 mmol/L (135-145)
== END 2024-01-07 10:37 | disposition home or self-care (01) ==
LOC: HO.LAB 10:36
PROVIDERS: PCP Internal Medicine; Visit Provider Nurse Practitioner Family
DX: I42.9 Cardiomyopathy, unspecified (principal)
CPT/HCPCS: 36415; 80048; 83880

== ENCOUNTER 2024-01-08 13:50 | Outpatient (AMB) | payer MEDICARE, SELFPAY ==
[2024-01-08 13:59] VITALS: BP 100/50; PULSE 52; BMI 21.5
--- NOTE | 2024-01-08 13:59 | A.OFFVIS_ITS ---
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 Designer Required: No Accompanied by: Self / Same As Patient Allergies Sulfa (Sulfonamide Antibiotics) Allergy (Intermediate, Verified 01/07/24 10:06) nausea, vomiting Medication List - Last Reconciled 01/08/24 by Basilio Corral MD albuterol sulfate 90 mcg/actuation (ProAir RespiClick) 2 inhalations inhalation Q4-6H PRN apixaban (Eliquis) 5 mg PO BID 90 days cholecalciferol (vitamin D3) 50 mcg PO DAILY 90 days dapagliflozin propanediol (Farxiga) 5 mg PO DAILY 90 days fluticasone furoate-vilanterol 200-25 mcg/dose (Breo Ellipta) 1 inh inhalation DAILY 30 days folic acid 1 mg PO DAILY furosemide (Lasix) 40 mg PO BID 30 days levalbuterol HCl 1.25 mg (3 mL) inhalation Q4-6H PRN 30 days lorazepam 0.5 mg PO TID PRN 30 days melatonin 6 mg (2 x 3 mg) PO BEDTIME PRN rosuvastatin 5 mg PO DAILY 90 days tiotropium bromide 2.5 mcg/actuation (Spiriva Respimat) 2 puffs inhalation DAILY trazodone 50 mg PO BEDTIME PRN 30 days vitamin B complex 1 tab PO DAILY HPI Comments Details: Pleasant 78 year female who is here for follow-up. She was seen in the hospital in 11/18/2023 when she presented with congestive heart failure in the setting of AFib with RVR and diffuse T-wave inversions with echocardiography showing LV dysfunction with LAD territory wall motion abnormality. She was taken for cardiac catheterization after discussion which showed no coronary disease and she was thought to have takotsubo cardiomyopathy. Repeat echocardiography in 12/19/2023 has shown EF 45-50% with some inferior wall motion abnormalities. Subsequent to that she had cardioversion performed and she has been in sinus rhythm and continues to be in sinus rhythm at this point. She is on apixaban 5 mg twice a day. She has been experiencing lower extremity edema which is the main concern to her currently. She has advanced COPD and gets some shortness of breath with activities and has been using her inhalers and following with pulmonology. She also has some nighttime shortness of breath episode which she has been treating with inhalers and Ativan. She has mild edema in the lower extremities but recently her Lasix dose was increased from 40 mg to 40 mg twice a day and edema has improved significantly with that. As per the granddaughter was description she has significant edema compared to what she has right now. Denying chest pains. Labs reviewed. [facility] Medical History (Updated 01/08/24 @ 15:25 by Basilio Corral MD) Encounter for cardioversion procedure Atrial fibrillation with RVR Acute exacerbation of congestive heart failure Acute on chronic hypoxic respiratory failure Acute HFrEF (heart failure with reduced ejection fraction) Chronic lung disease Skin lesion Dyslipidemia Cough due to DAISY inhibitor Neck pain GERD (gastroesophageal reflux disease) Aortic regurgitation Right hand pain Leg edema COPD (chronic obstructive pulmonary disease) Allergic rhinitis Anxiety Hypertension Surgical History Carpal tunnel syndrome, right History of bilateral cataract extraction History of partial hysterectomy Family History Father Medical history unknown Mother Medical history unknown Social History Household Members: None and Other Housing: House Do you presently have visiting nurse or other home services: No Alcohol intake: current Alcohol intake frequency: holidays/special occasions only Alcohol type: other Patient Tobacco Use Status: Former Tobacco user Tobacco use type: Cigarette e-Cigarette/Vaping Use: Never Used Second Hand Smoke Exposure: No Advance Directives Date on File: 08/25/20 service: No Current occupational status: retired Cognitive needs: No Hearing needs: No Vision needs: No Review of Systems Const Denies chills, Denies fatigue, Denies fever(s), Denies frequent falls, Denies weakness, Denies weight gain and Denies weight loss ENT Denies dizziness Card Denies chest pain, Reports leg edema, Denies lightheadedness, Denies palpitations, Reports dyspnea and Reports dyspnea on exertion Resp Denies cough, Reports dyspnea and Reports dyspnea on exertion GI Denies hematochezia Musc Denies abnormal gait, Denies muscle weakness, Denies numbness, Denies radiating pain into limb and Denies tingling Neuro Denies abnormal gait, Denies dizziness, Denies frequent falls, Denies numbness, Denies tingling and Denies weakness Endo Denies fatigue and Denies palpitations Physical Exam Vital Signs: Last Vital Signs Pulse 52 01/08/24 13:59 BP 100/50 L 01/08/24 13:59 BMI result Body Mass Index 21.5 GENERAL APPEARANCE: in no acute distress, pleasant. NECK: no carotid bruit, no jugular venous distention. SKIN: no suspicious lesions, warm and dry. HEART: no murmurs, regular rate and rhythm. LUNGS: clear to auscultation bilaterally. ABDOMEN: soft, nontender. EXTREMITIES: Mild edema. PERIPHERAL PULSES: equal. NEUROLOGIC: No gross deficits, AAO X 3 Assessment & Plan Assessment & Plan (1) Cardiomyopathy: Code(s): I42.9 - Cardiomyopathy, unspecified Category: Medical (2) PAF (paroxysmal atrial fibrillation): Code(s): I48.0 - Paroxysmal atrial fibrillation Category: Medical Plan 78 year female with takotsubo cardiomyopathy, paroxysmal atrial fibrillation and congestive heart failure. Repeat echocardiography has shown EF 45-50% in 12/19/2023. Clinically her volume status is good. She has some peripheral edema and I have advised her to wear compression stockings during the day. I have advised her to exercise more because sedentary lifestyle will lead to more deconditioning and will worsen her shortness of breath. She has currently not on any beta-steve due to low blood pressures. Agree with 40 mg twice a day Lasix for now. Continue Farxiga. Continue apixaban 5 mg twice a day for atrial fibrillation. Salt restriction. Follow-up with us in 4 months. Thank you for allowing me to participate in the care of your patient. Please feel free to contact me if you have any questions. Medications: New compr.stocking,knee,long,small As directed 2 ea 1RF R60.9 - Edema, unspecified Coding Level of Care Code Est Pt Level 4 (82885) Diagnoses Cardiomyopathy I42.9 PAF (paroxysmal atrial fibrillation) I48.0
== END 2024-01-08 15:04 | disposition home or self-care (01) ==
PROVIDERS: PCP Internal Medicine; Visit Provider Internal Medicine Cardiovascular Disease
DX: I42.9 Cardiomyopathy, unspecified (principal); I48.0 Paroxysmal atrial fibrillation
CPT/HCPCS: 99214

== ENCOUNTER → 2024-01-08 13:50 | Outpatient (BNVA) | payer MEDICARE, SELFPAY | PROVIDERS: PCP Internal Medicine; Visit Provider Internal Medicine Cardiovascular Disease | DX: I51.81 Takotsubo syndrome (principal); I48.0 Paroxysmal atrial fibrillation; I50.9 Heart failure, unspecified; Z79.01 Long term (current) use of anticoagulants; Z79.899 Other long term (current) drug therapy | CPT/HCPCS: 99212 ==

== ENCOUNTER 2024-01-22 10:35 | Outpatient (AMB) | payer MEDICARE, SELFPAY ==
[2024-01-22 10:41] VITALS: BP 130/64; BMI 21.0
--- NOTE | 2024-01-22 10:41 | A.OFFPC_ITS ---
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 Required: No Accompanied by: Daughter Allergies Sulfa (Sulfonamide Antibiotics) Allergy (Intermediate, Verified 01/22/24 10:51) nausea, vomiting Medication List - Last Reconciled 01/22/24 by Parul Williamson MD albuterol sulfate 90 mcg/actuation (ProAir RespiClick) 2 inhalations inhalation Q4-6H PRN apixaban (Eliquis) 5 mg PO BID 90 days cholecalciferol (vitamin D3) 50 mcg PO DAILY 90 days compr.stocking,knee,long,small As directed dapagliflozin propanediol (Farxiga) 5 mg PO DAILY 90 days fluticasone furoate-vilanterol 200-25 mcg/dose (Breo Ellipta) 1 inh inhalation DAILY 30 days folic acid 1 mg PO DAILY furosemide (Lasix) 40 mg PO BID levalbuterol HCl 1.25 mg (3 mL) inhalation Q4-6H PRN 30 days lorazepam 0.5 mg PO TID PRN 30 days melatonin 6 mg (2 x 3 mg) PO BEDTIME PRN rosuvastatin 5 mg PO DAILY 90 days tiotropium bromide 2.5 mcg/actuation (Spiriva Respimat) 2 puffs inhalation DAILY trazodone 50 mg PO BEDTIME PRN 30 days vitamin B complex 1 tab PO DAILY Tobacco use date assessed: 09/04/23 Fall risk assessment: No Falls in past year Last assessed Fall Risk: 01/22/24 Dental Screening Dental Screen Date: 11/19/23 HPI HPI Comments History of Present Illness Details This is a 78-year-old female with paroxysmal atrial fibrillation, congestive heart failure and COPD that comes today accompanied by daughter complaining of a rash in anterior part of feet that started about a week ago. She started using hydrocortisone cream and it did improve. Still mildly present. I recommend to continue using hydrocortisone cream. On chronic anticoagulation for atrial fibrillation. Has not gain 5 lb in a week and denies any leg swelling or shortness on breath. Atrial fibrillation and congestive heart failure are follow by cardiology. COPD stable with long-acting inhaler and follow by pulmonology. She denies claudication symptoms such as legs feeling cold and pain when walking needing to stop walking. She had a negative Homans test bilaterally. [facility] Medical History (Updated 01/22/24 @ 11:47 by Parul Williamson MD) Encounter for cardioversion procedure Atrial fibrillation with RVR Acute exacerbation of congestive heart failure Acute on chronic hypoxic respiratory failure Acute HFrEF (heart failure with reduced ejection fraction) Chronic lung disease Skin lesion Dyslipidemia Cough due to DAISY inhibitor Neck pain GERD (gastroesophageal reflux disease) Aortic regurgitation Right hand pain Leg edema COPD (chronic obstructive pulmonary disease) Allergic rhinitis Anxiety Hypertension Surgical History Carpal tunnel syndrome, right History of bilateral cataract extraction History of partial hysterectomy Family History Father Medical history unknown Mother Medical history unknown Social History Household Members: None and Other Housing: House Do you presently have visiting nurse or other home services: No Alcohol intake: current Alcohol intake frequency: holidays/special occasions only Alcohol type: other Patient Tobacco Use Status: Former Tobacco user Tobacco use type: Cigarette e-Cigarette/Vaping Use: Never Used Second Hand Smoke Exposure: No Advance Directives Date on File: 08/25/20 service: No Current occupational status: retired Cognitive needs: No Hearing needs: No Vision needs: No Questionnaire Thrive Questionnaire Date Thrive assessed: 12/06/23 CHRISTIAN-7 AMB Questionnaire CHRISTIAN-7 Date CHRISTIAN - 7 assessed: 11/19/23 Source: Developed by Drs. Mick Kovacs, Yasmeen Rey, Louie Warren and colleagues, with an educational louis from [employer]. Review of Systems Const All systems reviewed & are unremarkable except as noted in HPI and below Card Denies chest pain at rest, Denies chest pain with activity, Denies edema, Denies irregular heart rhythm, Denies claudication, Denies dyspnea, Denies dyspnea on exertion, Denies orthopnea, Denies paroxysmal nocturnal dyspnea and Denies slow heart rate Resp Denies cough, Denies dyspnea and Denies dyspnea on exertion Skin/Breast Reports rash Physical exam (Primary Care) Vital Signs: Last Vital Signs BP 130/64 01/22/24 10:41 BMI result Body Mass Index 21.0 Tobacco/Smoking Status: Tobacco use Status Tobacco use date assessed 09/04/23 01/22/24 10:44 Patient Tobacco Use Status Former Tobacco user 01/22/24 10:44 Tobacco use type Cigarette 01/22/24 10:44 e-Cigarette/Vaping Use Never Used 01/22/24 10:44 Thrive Assessment: Date of Thrive Assessment Date Thrive assessed 12/06/23 01/22/24 10:44 Resp Effort & Inspection: normal respiratory effort Auscultation: clear to auscultation bilaterally Cardio Jugular venous distension: no JVD Rate: regular rate Rhythm: regular rhythm Heart sounds: S1 normal heart sound present and S2 normal heart sound present Skin Rashes: rashes noted maculopapular rash bilateral upper Extrem General: Yes full ROM Assessment and Plan Assessment & Plan (1) Rash: Code(s): R21 - Rash and other nonspecific skin eruption Plan: Continue hydrocortisone cream. (2) PAF (paroxysmal atrial fibrillation): Code(s): I48.0 - Paroxysmal atrial fibrillation Plan: Continue Eliquis. Follow-up with Cardiology. (3) Congestive heart failure: Code(s): I50.9 - Heart failure, unspecified Qualifiers: Heart failure type: systolic Heart failure chronicity: chronic Qualified Code(s): I50.22 - Chronic systolic (congestive) heart failure Plan: Continue Farxiga. Use diuretics as needed. The goal is to not gain 5 lb in a week. (4) COPD (chronic obstructive pulmonary disease): Comment: COPD is severe, had remained stable over the past few years. Treated for an acute exacerbation in August 2023. Recently admitted in the hospital and treated for acute congestive heart failure, secondary to ischemic cardiomyopathy. She continues to be short of breath , with minimal physical exertion Also Continues to have residual generalized weakness . Code(s): J44.9 - Chronic obstructive pulmonary disease, unspecified Qualifiers: COPD type: unspecified COPD Qualified Code(s): J44.9 - Chronic obstructive pulmonary disease, unspecified Plan: Continue long-acting inhaler. Use rescue inhaler as needed. Follow-up with pulmonology. Coding Level of Care Code Est Pt Level 4 (74437) Complex EM visit Add On G2211 Diagnoses Rash R21 PAF (paroxysmal atrial fibrillation) I48.0 Chronic systolic congestive heart failure I50.22 Heart failure type: systolic Heart failure chronicity: chronic Chronic obstructive pulmonary disease, unspecified COPD type J44.9 COPD type: unspecified COPD Time Spent (min) 22
== END 2024-01-22 11:09 | disposition home or self-care (01) ==
LOC: HO.HMGH 10:35
PROVIDERS: PCP Internal Medicine; Visit Provider Internal Medicine
DX: R21 Rash and other nonspecific skin eruption (principal); I48.0 Paroxysmal atrial fibrillation; I50.22 Chronic systolic (congestive) heart failure; J44.9 Chronic obstructive pulmonary disease, unspecified
CPT/HCPCS: 99214; G2211

== ENCOUNTER 2024-01-27 12:01 | Outpatient (REF) | payer MEDICARE, SELFPAY ==
--- NOTE | ~2024-01-27 | XR_ITS ---
EXAMINATION: XR PELVIS CLINICAL INFORMATION: Hip pain COMPARISON: Right hip radiographs 12/17/2023 left hip radiographs 03/27/2019 TECHNIQUE: AP view of the pelvis. FINDINGS: Right superior and inferior pubic rami fractures. Minimal cortical irregularity along the left superior pubic parasymphyseal pubic ramus for which an additional fracture cannot be entirely excluded. Atherosclerotic vascular calcification. 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 XR/XR pelvis 1-2V IMPRESSION: 1. Right superior and inferior pubic rami fractures. Minimal cortical irregularity along the left superior pubic parasymphyseal pubic ramus for which an additional fracture cannot be entirely excluded. 2. 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
== END 2024-01-27 12:02 | disposition home or self-care (01) ==
LOC: HO.HOSX 12:01
PROVIDERS: PCP Internal Medicine; Visit Provider Orthopaedic Surgery
DX: M25.552 Pain in left hip (principal); M79.18 Myalgia, other site; R26.9 Unspecified abnormalities of gait and mobility
CPT/HCPCS: 72170; 99202

== ENCOUNTER 2024-01-27 12:01 | Outpatient (AMB) | payer MEDICARE, SELFPAY ==
--- NOTE | 2024-01-27 12:04 | A.OFFVIS_ITS ---
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 patient reports on going pain for about 6 months after she had a fall back in August. She states that her pain is near the buttocks and her feet tends throb and swell. Patient mentions that her right hip started to hurt first but them moved to her left hip. Pain is worse when getting up Patient is looking for medication to help with her pain. She had a r ecent PR and has been hospitalized multiple times in the past 6 months. She does wake up in the middle of the night. Her pain is posterior buttock travelling to calf. Denies numbness and tingling. Feels better with the walker. 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 patient reports on going pain for about 6 months after she had a fall back in August. She states that her pain is near the buttocks and her feet tends throb and swell. Patient mentions that her right hip started to hurt first but them moved to her left hip. Pain is worse when getting up Patient is looking for medication to help with her pain. She had a recent PR and has been hospitalized multiple times in the past 6 months. She does wake up in the middle of the night. Her pain is posterior buttock travelling to calf. Denies numbness and tingling. Feels better with the walker. [facility] Medical History Encounter for cardioversion procedure Atrial fibrillation with RVR Acute exacerbation of congestive heart failure Acute on chronic hypoxic respiratory failure Acute HFrEF (heart failure with reduced ejection fraction) Chronic lung disease Skin lesion Dyslipidemia Cough due to DAISY inhibitor Neck pain GERD (gastroesophageal reflux disease) Aortic regurgitation Right hand pain Leg edema COPD (chronic obstructive pulmonary disease) Allergic rhinitis Anxiety Hypertension Surgical History Carpal tunnel syndrome, right History of bilateral cataract extraction History of partial hysterectomy Family History Father Medical history unknown Mother Medical history unknown Social History Household Members: None and Other Housing: House Do you presently have visiting nurse or other home services: No Alcohol intake: current Alcohol intake frequency: holidays/special occasions only Alcohol type: other Patient Tobacco Use Status: Former Tobacco user Tobacco use type: Cigarette e-Cigarette/Vaping Use: Never Used Second Hand Smoke Exposure: No Advance Directives Date on File: 08/25/20 service: No Current occupational status: retired Cognitive needs: No Hearing needs: No Vision needs: No Physical Exam Extrem Other: Pain with gait in posterior thigh. Hard to reproduce her pain. No focal lower extremity muscle weakness. No pain with hip ROM Results Reviewed Results Reviewed: I personally reviewed relevant radiographs. Mild bilateral knee oa right > left Assessment & Plan Assessment & Plan (1) Buttock pain: Code(s): M79.18 - Myalgia, other site Category: Medical Plan: PT (2) Gait disturbance: Code(s): R26.9 - Unspecified abnormalities of gait and mobility Category: Medical Plan: PT for gait training. Orders: Orders XR pelvis 1-2V Today M25.559 - Pain in unspecified hip Coding Level of Care Code New Pt Level 4 (42473) Diagnoses Buttock pain M79.18 Gait disturbance R26.9
== END 2024-01-27 15:19 | disposition home or self-care (01) ==
PROVIDERS: PCP Internal Medicine; Visit Provider Orthopaedic Surgery
DX: M17.0 Bilateral primary osteoarthritis of knee (principal); M79.18 Myalgia, other site; R26.9 Unspecified abnormalities of gait and mobility
CPT/HCPCS: 99203

== ENCOUNTER 2024-02-11 11:03 | Outpatient (AMB) | payer MEDICARE, SELFPAY ==
--- NOTE | 2024-02-11 11:04 | A.OFFVIS_ITS ---
Vital Signs 02/11/24 11:06 Height 5 ft 1 in Weight 108 lb 0.424 oz BMI 20.4 BP 116/64 Blood Pressure Location Lt brachial Position Sitting Respiration 16 Pulse 55 Pulse Source Pulse Oximeter Pulse Oximetry (%) 95 Oxygen Delivery Method Room Air Intake Visit Reasons: COPD Intake Note: Patient comes in for COPD follow up. Allergies Sulfa (Sulfonamide Antibiotics) Allergy (Intermediate, Verified 02/11/24 11:26) nausea, vomiting Medication List - Last Reconciled 02/11/24 by Tmaara Rehman MD albuterol sulfate 90 mcg/actuation (ProAir RespiClick) 2 inhalations inhalation Q4-6H PRN apixaban (Eliquis) 5 mg PO BID 90 days cholecalciferol (vitamin D3) 50 mcg PO DAILY 90 days compr.stocking,knee,long,small As directed dapagliflozin propanediol (Farxiga) 5 mg PO DAILY 90 days fluticasone furoate-vilanterol 200-25 mcg/dose (Breo Ellipta) 1 inh inhalation DAILY folic acid 1 mg PO DAILY furosemide (Lasix) 40 mg PO BID levalbuterol HCl 1.25 mg (3 mL) inhalation Q4-6H PRN 30 days lorazepam 0.5 mg PO TID PRN 30 days melatonin 6 mg (2 x 3 mg) PO BEDTIME PRN rosuvastatin 5 mg PO DAILY 90 days tiotropium bromide 2.5 mcg/actuation (Spiriva Respimat) 2 puffs inhalation DAILY trazodone 50 mg PO BEDTIME PRN 30 days vitamin B complex 1 tab PO DAILY Do you need a note to return to daycare/school/sports/work: No HPI HPI COPD: Details: Yasmeen, 78 years old very pleasant female is here for a short term follow-up. Breathing pompa she has been doing very well without much cough or shortness of breath. She uses the rescue inhaler only about once a day and continues to use Breo and Spiriva Respimat. Today her main complaint was about the cost of medications , Cardiac pompa also doing well and stable. [facility] Medical History Encounter for cardioversion procedure Atrial fibrillation with RVR Acute exacerbation of congestive heart failure Acute on chronic hypoxic respiratory failure Acute HFrEF (heart failure with reduced ejection fraction) Chronic lung disease Skin lesion Dyslipidemia Cough due to DAISY inhibitor Neck pain GERD (gastroesophageal reflux disease) Aortic regurgitation Right hand pain Leg edema COPD (chronic obstructive pulmonary disease) Allergic rhinitis Anxiety Hypertension Surgical History Carpal tunnel syndrome, right History of bilateral cataract extraction History of partial hysterectomy Family History Father Medical history unknown Mother Medical history unknown Social History Household Members: None and Other Housing: House Do you presently have visiting nurse or other home services: No Alcohol intake: current Alcohol intake frequency: holidays/special occasions only Alcohol type: other Patient Tobacco Use Status: Former Tobacco user Tobacco use type: Cigarette e-Cigarette/Vaping Use: Never Used Second Hand Smoke Exposure: No Advance Directives Date on File: 08/25/20 service: No Current occupational status: retired Cognitive needs: No Hearing needs: No Vision needs: No Review of Systems Const All systems reviewed & are unremarkable except as noted in HPI and below Eyes Reports no additional complaints ENT Reports nasal congestion (Mild intermittent) and Reports neck pain (Mild off and on) Card Denies chest pain at rest, Denies chest pain with activity, Denies edema, Denies irregular heart rhythm, Denies claudication, Denies dyspnea, Denies dyspnea on exertion, Denies orthopnea, Denies paroxysmal nocturnal dyspnea and Denies slow heart rate Resp Denies cough, Denies dyspnea and Denies dyspnea on exertion GI Reports heartburn (GERD symptoms controlled with med) Reports no additional complaints Musc Reports neck pain (Mild off and on) Skin/Breast Reports rash Neuro Reports no additional complaints Psych Reports no additional complaints Physical Exam Vital Signs: Last Vital Signs Pulse 55 02/11/24 11:06 Resp 16 02/11/24 11:06 BP 116/64 02/11/24 11:06 Pulse Ox 95 02/11/24 11:06 Oxygen Delivery Method Room Air 02/11/24 11:06 BMI result Body Mass Index 20.4 Const General: comfortable, no acute distress, alert and awake Orientation/consciousness: patient oriented x3 HEENT Head: Yes normal to inspection General nose exam: No nasal polyps present, No nasal discharge present and Other nasal findings present (Mild nasal congestion is present) Face and sinus: Yes sinuses nontender Mouth: oropharynx normal Throat: Yes posterior oropharynx normal Eyes General: appearance normal, both eyes and all related structures Neck Neck: Yes normal visual inspection, Yes no lymphadenopathy, Yes trachea midline and Yes no JVD Thyroid: Thyroid normal Chest Chest palpation & inspection: normal inspection of the chest, normal palpation of entire chest wall and no tenderness Resp Other: Percussion note hyper-resonant, breath sounds are equal on both sides with prolonged expiratory phase. No wheezes rhonchi, a few fine inspiratory crackles over the basilar areas. Cardio Palpation: normal PMI Rate: regular rate Rhythm: regular rhythm Heart sounds: no gallops and no murmurs GI Palpation (GI): Soft to palpation, nontender, No hepatosplenomegaly present and no masses Auscultation: normal bowel sounds Back/Spine/Pelvis Thoracic/Lumbar Spine: thoracic and lumbar spine normal to inspection Skin General skin exam: no rashes or lesions noted Neuro General: patient oriented x3 and no focal motor deficits Cranial nerves: Yes CN's II-XII intact bilaterally Extrem General: Yes normal to inspection, Yes no calf tenderness and Yes edema (1+ edema around the ankles and of the feet on both sides) Psych Appearance: grossly normal and well kempt Speech and movement: Normal speech and movement present Assessment & Plan Assessment & Plan (1) COPD (chronic obstructive pulmonary disease): Comment: COPD is severe, had remained stable over the past few years. Treated for an acute exacerbation in August 2023. Recently admitted in the hospital and treated for acute congestive heart failure, secondary to ischemic cardiomyopathy. She continues to be short of breath , with minimal physical exertion Also Continues to have residual generalized weakness . Shortness of breath and general weakness has gradually improved, she is almost at her baseline. Code(s): J44.9 - Chronic obstructive pulmonary disease, unspecified Category: Medical Qualifiers: COPD type: unspecified COPD Qualified Code(s): J44.9 - Chronic obstructive pulmonary disease, unspecified Plan: Breo 200-25 1 inhalation daily , she wants to have it in generic form which there is non, however when she is finishing her current supply we will try to change to an alternate agent. Spiriva Respimat 2.5 mg 2 inhalations daily. ProAir 1 or 2 puffs Q 6 hours p.r.n. She also has love albuterol solution to be used in the nebulizer and is advised to use it only sparingly. (2) Allergic rhinitis: Comment: Allergic rhinitis is mild, intermittent and controlled . Code(s): J30.9 - Allergic rhinitis, unspecified Category: Medical Plan: May use OTC antihistaminic agents only p.r.n. (3) Acute hypoxemic respiratory failure: Comment: DURING HER HOSPITALIZATION SHE DID HAVE ACUTE HYPOXEMIC FAILURE, INITIALLY TREATED WITH BIPAP THEN CPAP AND THEN WEANED OFF. SHE WAS ADVISED TO USE O2 2 L/MINUTE, CONTINUOUSLY. AT PRESENT SHE IS USING IT ONLY AT HOME AND AT NIGHT BUT DOES NOT COME OUT WITH PORTABLE UNIT. Code(s): J96.01 - Acute respiratory failure with hypoxia Category: Medical Plan: O2 2 L/MINUTE AT NIGHT AND 2 L/MINUTE WHEN WALKING AROUND IN THE HOUSE. Coding Level of Care Code Est Pt Level 3 (59430) Diagnoses Chronic obstructive pulmonary disease, unspecified COPD type J44.9 COPD type: unspecified COPD Allergic rhinitis J30.9 Acute hypoxemic respiratory failure J96.01
[2024-02-11 11:06] VITALS: BP 116/64; PULSE 55; RESP 16; O2SAT 95; BMI 20.4
== END 2024-02-11 11:25 | disposition home or self-care (01) ==
PROVIDERS: PCP Internal Medicine; Visit Provider Internal Medicine
DX: J44.9 Chronic obstructive pulmonary disease, unspecified (principal); J30.9 Allergic rhinitis, unspecified; J96.01 Acute respiratory failure with hypoxia
CPT/HCPCS: 99213

== ENCOUNTER → 2024-02-11 11:03 | Outpatient (BNVA) | payer MEDICARE, SELFPAY | PROVIDERS: PCP Internal Medicine; Visit Provider Internal Medicine | DX: J44.9 Chronic obstructive pulmonary disease, unspecified (principal); J96.01 Acute respiratory failure with hypoxia; J30.9 Allergic rhinitis, unspecified; Z99.81 Dependence on supplemental oxygen | CPT/HCPCS: 99212 ==

== ENCOUNTER 2024-03-27 09:00 | Outpatient (RCR) | payer MEDICARE, SELFPAY ==
--- NOTE | 2024-02-24 11:46 | MHC.PT.EP ---
[facility] [place] Office [place] [facility] [place] Office [address] Swapnil Pena [address] [phone] F: [phone] F: [phone] F: [phone] F: [phone] Physical Therapy Plan of Care Date of Evaluation: 02/24/24 Date of Surgery: Diagnosis: GAIT INSTABILITY Assessment: 78 YO FEMALE WITH PAROXYSMAL ATRIAL FIBRILLATION, CHF, Rt > Lt HIP PAIN , AND COPD REF TO PT DUE TO GAIT INSTABILITY AFTER RECENT HOSPITALIZATION. SHE RESIDES ALONE IN A RANCH STYLE HOME WITH HER 3 DOGS AND HER DTR RESIDES NEXT DOOR. SHE USES A ROLLATOR WALKER OUTDOORS AND SHE NOTES SHE FEELS HER LEGS ARE WEAK AND IMPACT HER BALANCE W ADLs. OBJECTIVELY, SHE HAS DECR LEs STRENGTH, LIMITED FLEXIBILITY IN ANKLES AND HIPS, DEGEN CHANGES NOTED ON XRAY OF Rt HIP, AND IMPAIRED STATIC STAND BALANCE (SHE IS UNABLE TO SLS). THE Pt IS VERY MOTIVATED TO ADDRESS THE ABOVE FINDINGS AND ADVANCE FUNCTIONAL MOBILITY CORI TO MAXIMIZE HER LEVEL OF INDEPENDENCE SHE RESIDES ALONE. Frequency and Duration: The patient will be seen 2 x WK x 5 WKS Short Term Goals: *INITIATE HEP *INCREASE ANKLE AND HIP MOBILITY *IMPROVE SIT <-> STAND TRANSFERS TO INCR LEs USE Custodial Goals: *Pt INDEP W HEP *Pt IMPROVE FUNCTIONAL MOB , TRANSFERS-> EVIDENT W IMPROVED TUG (25 SEC AT EVAL) AND 4 STEP BALANCE TEST *INDEP TRANSFERS, BED MOB, AND GAIT ON STAIRS AND LEVEL GROUND W EFFICIENT TECHN Treatment Plan: Modalities to reduce pain, spasms and effusion. Manual therapy to restore motion and function. Therapeutic exercise to improve strength and flexibility. Neuromuscular re-education for posture and balance. Therapeutic activities to return to functional activities of daily living. Electronically signed by: SHELL MOON,PT Please sign and return to therapist. Thank you for your referral.
--- NOTE | 2024-05-05 14:28 | MHC.PT.DC ---
[facility] [place] Office [place] Office [place] Office [address] Swapnil Pena 140 [facility] [phone] F: [phone] F: [phone] F: [phone] F: [phone] Physical Therapy Discharge Report Diagnosis: GAIT INSTABILITY Date of Surgery: Date of Evaluation: 02/24/24 Date of Discharge: 05/05/24 Treatments to Date: 5 Cancellations to Date: 4 No Shows to Date: Discharge Status: Patient Elected to Stop Recommend MD Follow-up Discharge Summary: THE Pt REQUESTED PUTTING PT ON HOLD/ DISCHARGING PT; SHE HAS A CARDIOLOGY APPT ON 04/08-> WE DISCUSSED CARDIAC REHAB AN OPTION WHCH WOULD ALLOW HER TO BE CLOSELY MONITORED SHE ADDRESSES INCREASING HER ACTIVITY LEVEL AT THIS TIME. WE DID INITIATE A HEP AND ADDRESSED SOME BALANCE AND GAIT CONCERNS. Electronically signed by: SHELL MOON,PT Please sign and return to therapist. Thank you for your referral.
== END 2024-05-05 14:30 | disposition home or self-care (01) ==
LOC: HO.PT 09:00
PROVIDERS: PCP Internal Medicine; Visit Provider Orthopaedic Surgery
DX: R26.9 Unspecified abnormalities of gait and mobility (principal)
CPT/HCPCS: 97110; 97112; 97162

== ENCOUNTER 2024-04-08 10:49 | Outpatient (AMB) | payer MEDICARE, SELFPAY ==
--- NOTE | 2024-04-08 10:51 | A.OFFVIS_ITS ---
Vital Signs 04/08/24 10:52 Height 5 ft 1 in Weight 107 lb 2.314 oz BMI 20.2 BP 130/62 Blood Pressure Location Lt brachial Position Sitting Pulse 66 Pulse Source Pulse Oximeter Intake Visit Reasons: 3 mth Intake Note: 3 mth f/up Loan Supervisor Required: No Accompanied by: Self / Same As Patient Allergies Sulfa (Sulfonamide Antibiotics) Allergy (Intermediate, Verified 02/11/24 11:26) nausea, vomiting Medication List - Last Reconciled 04/08/24 by Basilio Corral MD apixaban (Eliquis) 5 mg PO BID 90 days ascorbic acid (vitamin C) 1 g PO Q6H cholecalciferol (vitamin D3) 50 mcg PO DAILY 90 days compr.stocking,knee,long,small As directed dapagliflozin propanediol (Farxiga) 5 mg PO DAILY 90 days fluticasone furoate-vilanterol 200-25 mcg/dose (Breo Ellipta) 1 inh inhalation DAILY folic acid 1 mg PO DAILY furosemide (Lasix) 40 mg PO BID levalbuterol HCl 1.25 mg (3 mL) inhalation Q4-6H PRN 30 days lorazepam 0.5 mg PO TID PRN 30 days melatonin 6 mg (2 x 3 mg) PO BEDTIME PRN rosuvastatin 5 mg PO DAILY 90 days vitamin B complex 1 tab PO DAILY HPI Comments Details: Pleasant 78 year female who is here for follow-up. She was seen in the hospital in 11/18/2023 when she presented with congestive heart failure in the setting of AFib with RVR and diffuse T-wave inversions with echocardiography showing LV dysfunction with LAD territory wall motion abnormality. She was taken for cardiac catheterization after discussion which showed no coronary disease and she was thought to have takotsubo cardiomyopathy. Repeat echocardiography in 12/19/2023 has shown EF 45-50% with some inferior wall motion abnormalities. Subsequent to that she had cardioversion performed and she has been in sinus rhythm and continues to be in sinus rhythm at this point. She is on apixaban 5 mg twice a day. She has been experiencing lower extremity edema which is the main concern to her currently. She has advanced COPD and gets some shortness of breath with activities and has been using her inhalers and following with pulmonology. She also has some nighttime shortness of breath episode which she has been treating with inhalers and Ativan. She has mild edema in the lower extremities but recently her Lasix dose was increased from 40 mg to 40 mg twice a day and edema has improved significantly with that. As per the granddaughter was description she has significant edema compared to what she has right now. Denying chest pains. Labs reviewed. 04/08/2024: She is here for follow-up. She had some bradycardic episodes while she was at rehab. Overall heart rate has recovered and she has no significant symptoms. She is saying her breathing is overall stable. Denying any peripheral edema. Blood pressure is well controlled. She is on apixaban currently and continues to be in sinus rhythm. She is asking whether Farxiga needs to be continued [facility] because it is difficult for her to afford it along with Eliquis and other medications. [facility] Medical History Encounter for cardioversion procedure Atrial fibrillation with RVR Acute exacerbation of congestive heart failure Acute on chronic hypoxic respiratory failure Acute HFrEF (heart failure with reduced ejection fraction) Chronic lung disease Skin lesion Dyslipidemia Cough due to DAISY inhibitor Neck pain GERD (gastroesophageal reflux disease) Aortic regurgitation Right hand pain Leg edema COPD (chronic obstructive pulmonary disease) Allergic rhinitis Anxiety Hypertension Surgical History Carpal tunnel syndrome, right History of bilateral cataract extraction History of partial hysterectomy Family History Father Medical history unknown Mother Medical history unknown Social History Household Members: None and Other Housing: House Do you presently have visiting nurse or other home services: No Alcohol intake: current Alcohol intake frequency: holidays/special occasions only Alcohol type: other Patient Tobacco Use Status: Former Tobacco user Tobacco use type: Cigarette e-Cigarette/Vaping Use: Never Used Second Hand Smoke Exposure: No Advance Directives Date on File: 08/25/20 service: No Current occupational status: retired Cognitive needs: No Hearing needs: No Vision needs: No Review of Systems Const Denies chills, Denies fatigue, Denies fever(s), Denies frequent falls, Denies weakness, Denies weight gain and Denies weight loss ENT Denies dizziness Card Denies chest pain, Denies leg edema, Denies lightheadedness, Denies palpitations, Denies dyspnea and Denies dyspnea on exertion Resp Denies cough, Denies dyspnea and Denies dyspnea on exertion GI Denies hematochezia Musc Denies abnormal gait, Denies muscle weakness, Denies numbness, Denies radiating pain into limb and Denies tingling Neuro Denies abnormal gait, Denies dizziness, Denies frequent falls, Denies numbness, Denies tingling and Denies weakness Endo Denies fatigue and Denies palpitations Physical Exam Vital Signs: Last Vital Signs Pulse 66 04/08/24 10:52 BP 130/62 04/08/24 10:52 BMI result Body Mass Index 20.2 GENERAL APPEARANCE: in no acute distress, pleasant. NECK: no carotid bruit, no jugular venous distention. SKIN: no suspicious lesions, warm and dry. HEART: no murmurs, regular rate and rhythm. LUNGS: clear to auscultation bilaterally. ABDOMEN: soft, nontender. EXTREMITIES: No edema. PERIPHERAL PULSES: equal. NEUROLOGIC: No gross deficits, AAO X 3 Assessment & Plan Assessment & Plan (1) PAF (paroxysmal atrial fibrillation): Code(s): I48.0 - Paroxysmal atrial fibrillation Category: Medical (2) Cardiomyopathy: Code(s): I42.9 - Cardiomyopathy, unspecified Category: Medical Plan [age] year female with takotsubo cardiomyopathy, paroxysmal atrial fibrillation and congestive heart failure. She underwent cardiac catheterization which did not show any coronary disease and LVEF was reduced which improved to 45-50% in 12/19/2023. Clinically she is euvolemic at this stage. Denying any significant dyspnea on exertion. Continues to be in sinus rhythm at this point. On apixaban 5 mg twice a day. Due to previous bradycardia she is not on beta-blockers or any antiarrhythmic medications currently. Repeat echocardiography to reassess EF. She is asking whether Farxiga is a long-term drug. I have explained to her that the drug has good long-term cardiovascular effects and if she can afford it she should continue long-term. She will continue it till the end of the year. Blood pressure control is reasonable. Thank you for allowing me to participate in the care of your patient. Please feel free to contact me if you have any questions. Orders: Orders CA echo transthorac w con Today I42.9 - Cardiomyopathy, unspecified Coding Level of Care Code Est Pt Level 4 (70265) Diagnoses PAF (paroxysmal atrial fibrillation) I48.0 Cardiomyopathy I42.9
[2024-04-08 10:52] VITALS: BP 130/62; PULSE 66; BMI 20.2
== END 2024-04-08 11:29 | disposition home or self-care (01) ==
PROVIDERS: PCP Internal Medicine; Visit Provider Internal Medicine Cardiovascular Disease
DX: I48.0 Paroxysmal atrial fibrillation (principal); I42.9 Cardiomyopathy, unspecified
CPT/HCPCS: 99214

== ENCOUNTER → 2024-04-08 10:49 | Outpatient (BNVA) | payer MEDICARE, SELFPAY | PROVIDERS: PCP Internal Medicine; Visit Provider Internal Medicine Cardiovascular Disease | DX: I48.0 Paroxysmal atrial fibrillation (principal); I42.9 Cardiomyopathy, unspecified | CPT/HCPCS: 99212 ==

== ENCOUNTER 2024-04-25 10:18 | Outpatient (REF) | payer MEDICARE, SELFPAY ==
--- NOTE | ~2024-04-25 | MM_ITS ---
EXAMINATION: MM SCREENING DIGITAL BREAST TOMOSYNTHESIS, BILATERAL CLINICAL INFORMATION: Screening. Asymptomatic. COMPARISON: Mammography: Comparison is made with available priors TECHNIQUE: Digital breast mammography with tomosynthesis is performed in both the craniocaudal and mediolateral oblique views along with computer-aided detection (CAD). FINDINGS: The breasts are heterogeneously dense, which may obscure small masses (ACR BI-RADS breast composition Category c). There are no significant masses, abnormal calcifications, or other abnormalities. MM/MM tomosynthesis screening BI IMPRESSION: No mammographic evidence of malignancy. ASSESSMENT: BI-RADS BI-RADS 1 - Negative RECOMMENDATION: Routine annual mammography screening. 1 year F/U This examination should not preclude the clinical evaluation of a suspicious palpable abnormality. This patient's information was entered into a reminder system with a target due date for their next mammogram. Electronically signed by: Bre Emery DO 05/05/2024 08:48 AM [facility]
== END 2024-04-25 10:19 | disposition home or self-care (01) ==
LOC: HO.MAMMO 10:18
PROVIDERS: PCP Internal Medicine; Visit Provider Internal Medicine
DX: Z12.31 Encounter for screening mammogram for malignant neoplasm of breast (principal)
CPT/HCPCS: 77063; 77067

== ENCOUNTER → 2024-04-25 10:30 | Outpatient (BNV) | payer MEDICARE, SELFPAY | PROVIDERS: PCP Internal Medicine; Visit Provider Internal Medicine | DX: Z12.31 Encounter for screening mammogram for malignant neoplasm of breast (principal) | CPT/HCPCS: 77063; 77067 ==

== ENCOUNTER 2024-04-27 06:04 | Outpatient (REF) | payer MEDICARE, SELFPAY ==
[2024-04-27 08:20] LABS: Alanine Aminotransferase 29 U/L (0-31); Albumin Level 4.3 g/dL (3.5-5.0); Alkaline Phosphatase 131 U/L (39-117); Anion Gap 14 (12-20); Aspartate Amino Transferase 30 U/L (5-31); Bilirubin Total 0.5 mg/dL (0.0-1.0); Blood Urea Nitrogen 21 mg/dL (9-16); Calcium 10.2 mg/dL (8.4-10.2); Carbon Dioxide 33 mmol/L (22-29); Chloride 98 mmol/L (96-108); Cholesterol 163 mg/dL (<200); Estimated Glomerular Filt Rate > 60; Glucose Fasting 106 mg/dL (60-99); HDL Cholesterol 74 mg/dL (>40); LDL Cholesterol Calculated 78 mg/dL (<100); Potassium 3.6 mmol/L (3.3-5.1); Sodium 141 mmol/L (135-145); Total Protein 7.3 g/dL (6.5-8.0); Triglycerides 58 mg/dL (<150)
[2024-04-27 08:36] LABS: Vitamin D 25-OH Total 66.8 ng/mL (>30)
== END 2024-04-27 06:05 | disposition home or self-care (01) ==
LOC: HO.LAB 06:04
PROVIDERS: PCP Internal Medicine; Visit Provider Internal Medicine
DX: I42.9 Cardiomyopathy, unspecified (principal); E78.5 Hyperlipidemia, unspecified; E55.9 Vitamin D deficiency, unspecified
CPT/HCPCS: 36415; 80053; 80061; 82306

== ENCOUNTER → 2024-04-30 10:50 | Outpatient (REF) | payer MEDICARE, SELFPAY ==
--- NOTE | 2024-04-30 10:52 | CA_ITS ---
Transthoracic Echocardiogram Patient (Last, First, Middle): Yasmeen Andrews R Gender: Female Date of : 1945 Age: 78 Procedure Date: 04/30/2024 Procedure Type: Transthoracic Echocardiogram Location: OP Height: 160.02 cm Weight: 48.08 kg BSA: 1.48 m2 Heart Rate: bpm BP: 139 / 62 mmHg Oral And Maxillofacial Surgeon: MATEO Referring MD: Basilio Corral MD Library Services Assistant: Basilio Corral MD Symptoms: I42.9 - Cardiomyopathy, unspecified Study Quality: Adequate Conclusions: - Normal left ventricular size, thickness, systolic function, and wall motion. The visually estimated ejection fraction is between 60-65%. - Spectral Doppler is indicative of a restrictive filling pattern. Elevated filling pressures. - Normal right ventricular cavity size and systolic function. - The left atrium is severely dilated. - Severe pulmonary hypertension is present. Findings Left Ventricle Normal left ventricular size, thickness, systolic function, and wall motion. The visually estimated ejection fraction is between 60-65%. Abnormal diastolic function is noted. Spectral Doppler is indicative of a restrictive filling pattern. Elevated filling pressures. Right Ventricle Normal right ventricular cavity size and systolic function. Atria The left atrium is severely dilated. The right atrium is moderately dilated. Aortic Valve There is mild calcification of the aortic valve. There is no aortic valve stenosis. There is mild to moderate aortic valve regurgitation. Mitral Valve The mitral valve appears normal. There is mild mitral valve regurgitation. There is no mitral valve stenosis. Pulmonic Valve The pulmonic valve is likely normal. Tricuspid Valve Normal tricuspid valve structure. There is mild tricuspid valve regurgitation. The right ventricular systolic pressure is 69 mmHg. Moderately elevated right atrial pressure. Severe pulmonary hypertension is present. Great Vessels All visible segments of the aorta are normal in size. Venous The inferior vena cava is dilated and collapses greater than 50% with inspiration. Pericardium/Pleural There is no evidence of pericardial effusion. Prior Study Comparison Changes noted compared to prior study dated: 12/06/2023. EF 60-65%. Elevated filling pressures. Severe pulm HTN. Measurements 2D Linear Measurements IVSd: 0.77 0.6-0.9/0.6-1.0 cm LVIDd: 4.42 3.9-5.3/4.2-5.9 cm LVIDd Index: 2.99 2.4-3.2/2.2-3.1 cm/m2 LVIDs: 2.39 2.0-3.6 cm LVPWd: 0.77 0.7-1.1 cm LA Diam: 2.50 2.7-3.8/3.0-4.0 cm LAIDs Index: 1.69 1.5-2.3 cm/m2 LV Mass: 130.48 67-162/88-224 g LV Mass Index: 88.16 43-95/49-115 g/m2 LVOT Diam: 2.00 3.0+(-)1.3 cm 2D Systolic Function EF 4C: 73.10 >55% EF 2C: 72.80 >55% EF BiP: 73.50 >55% Mitral Valve MV Pk E: 0.93 MV PK A: 0.26 MV Decel Time: 174.00 E/A: 3.60 E'Lateral: 5.66 E'Medial: 3.59 E/E' Med: 25.80 E/E' Lat: 16.30 PHT: 51.00 MVA PHT: 4.31 Decel Stokes: 5.31 Aortic Valve AoV Pk Jabari: 1.79 AoV Mn Jabari: 1.13 AoV VTI: 0.50 AoV Pk Grad: 13.00 Aov Mn Grad: 6.00 FRANCISCO Cont.VTI: 1.64 AI Pk Jabari: 4.25 AI VTI: 3.14 AI Stokes: 2.66 AI Alias Jabari: 0.37 AI RV - PISA: 16.00 ERO - PISA: 5.00 LVOT LVOT Pk Jabari: 0.86 LVOT Mn Jabari: 0.61 LVOT VTI: 0.26 LVOT Pk Grad: 3.00 LVOT Mn Grad: 2.00 LVOT Diam: 2.00 LVOT Area: 3.14 Diastolic Function MV Pk E: 0.93 MV Pk A: 0.26 E/A: 3.60 E'Medial: 3.59 E/E' Med: 25.80 E' Laterial: 5.66 E/E' Lat: 16.30 Right Ventricle TAPSE (mm): 22.20 TVS' Jabari: 10.70 Tricuspid Valve TR Pk Jabari: 3.90 TR Pk Grad: 61.00 RA Press: 8.00 RVSP: 69.00 Great Vessels Aorta Sinus of Valsalva: 3.14 2.0-3.[address] Ridge: 2.58 1.7-3.4 cm Ao Asc: 3.30 2.1-3.4 cm Updated in Other Vendor System with Status of Final Basilio Corral MD electronically signed on 04/30/2024 8:54:31 PM with status of Final
== END ==
LOC: HO.CARD 10:50
PROVIDERS: PCP Internal Medicine; Visit Provider Internal Medicine Cardiovascular Disease
DX: I42.9 Cardiomyopathy, unspecified (principal)
CPT/HCPCS: 93306

== ENCOUNTER → 2024-04-30 10:52 | Outpatient (BNV) | payer MEDICARE, SELFPAY | PROVIDERS: PCP Internal Medicine; Visit Provider Internal Medicine Cardiovascular Disease | DX: I35.1 Nonrheumatic aortic (valve) insufficiency (principal); I34.0 Nonrheumatic mitral (valve) insufficiency; I36.1 Nonrheumatic tricuspid (valve) insufficiency | CPT/HCPCS: 93306 ==

== ENCOUNTER 2024-05-04 10:59 | Outpatient (AMB) | payer MEDICARE, SELFPAY ==
--- NOTE | 2024-05-04 11:03 | MHC.PC.OV ---
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 Accompanied by: Self / Same As Patient Allergies Sulfa (Sulfonamide Antibiotics) Allergy (Intermediate, Verified 05/04/24 11:19) nausea, vomiting Medication List - Last Reconciled 05/04/24 by Parul Williamson MD apixaban (Eliquis) 5 mg PO BID 90 days ascorbic acid (vitamin C) 1 g PO Q6H cholecalciferol (vitamin D3) 50 mcg PO DAILY 90 days compr.stocking,knee,long,small As directed dapagliflozin propanediol (Farxiga) 5 mg PO DAILY 90 days fluticasone furoate-vilanterol 200-25 mcg/dose (Breo Ellipta) 1 inh inhalation DAILY folic acid 1 mg PO DAILY furosemide (Lasix) 40 mg PO BID levalbuterol HCl 1.25 mg (3 mL) inhalation Q4-6H PRN 30 days lorazepam 0.5 mg PO TID PRN 30 days melatonin 6 mg (2 x 3 mg) PO BEDTIME PRN omeprazole 20 mg PO DAILY 90 days rosuvastatin 5 mg PO DAILY 90 days vitamin B complex 1 tab PO DAILY Tobacco use date assessed: 09/04/23 Fall risk assessment: No Falls in past year Last assessed Fall Risk: 05/04/24 Dental Screening Dental Screen Date: 05/04/24 Did you have a dental visit in the last 12 months?: No Did you have a dental problem in the last 6 months where you did not have access to dental care?: No Was dental information given to patient?: Patient has dentist HPI HPI Comments History of Present Illness Details This is a 78-year-old female with COPD, paroxysmal atrial fibrillation, chronic systolic congestive heart failure and GERD that comes today for follow-up on her conditions. Still have some shortness on breath and wheezing and I will prescribe a prednisone pack. No fever. Follows with pulmonology and has an appointment soon. On chronic anticoagulation for atrial fibrillation. The goal is heart rate control. Has not gain 5 lb in a week. Congestive heart failure is follow by cardiology and she is euvolemic today. Still has heartburn symptoms with omeprazole and I will prescribe pantoprazole. She said that famotidine works better than omeprazole. No chest pain or shortness on breath. [facility] Medical History Encounter for cardioversion procedure Atrial fibrillation with RVR Acute exacerbation of congestive heart failure Acute on chronic hypoxic respiratory failure Acute HFrEF (heart failure with reduced ejection fraction) Chronic lung disease Skin lesion Dyslipidemia Cough due to DAISY inhibitor Neck pain GERD (gastroesophageal reflux disease) Aortic regurgitation Right hand pain Leg edema COPD (chronic obstructive pulmonary disease) Allergic rhinitis Anxiety Hypertension Surgical History Carpal tunnel syndrome, right History of bilateral cataract extraction History of partial hysterectomy Family History Father Medical history unknown Mother Medical history unknown Social History Household Members: None and Other Housing: House Do you presently have visiting nurse or other home services: No Alcohol intake: current Alcohol intake frequency: holidays/special occasions only Alcohol type: other Patient Tobacco Use Status: Former Tobacco user Tobacco use type: Cigarette e-Cigarette/Vaping Use: Never Used Second Hand Smoke Exposure: No Advance Directives Date on File: 08/25/20 service: No Current occupational status: retired Cognitive needs: No Hearing needs: No Vision needs: No Questionnaire Thrive Questionnaire Date Thrive assessed: 12/06/23 CHRISTIAN-7 AMB Questionnaire CHRISTIAN-7 Date CHRISTIAN - 7 assessed: 11/19/23 Source: Developed by Drs. Mick Kovacs, Yasmeen Rey, Louie Warren and colleagues, with an educational louis from [employer]. Review of Systems Const All systems reviewed & are unremarkable except as noted in HPI and below Card Denies chest pain at rest, Denies chest pain with activity, Denies edema, Denies irregular heart rhythm, Denies claudication, Denies dyspnea, Denies dyspnea on exertion, Denies orthopnea, Denies paroxysmal nocturnal dyspnea and Denies slow heart rate Resp Denies cough, Denies dyspnea and Denies dyspnea on exertion GI Reports abdominal pain, Denies change in bowel habits, Denies excessive flatus, Reports heartburn, Denies nausea and Denies vomiting Physical exam (Primary Care) Vital Signs: Last Vital Signs BP 122/70 05/04/24 11:05 BMI result Body Mass Index 19.8 Tobacco/Smoking Status: Tobacco use Status Tobacco use date assessed 09/04/23 05/04/24 11:13 Patient Tobacco Use Status Former Tobacco user 05/04/24 11:13 Tobacco use type Cigarette 05/04/24 11:13 e-Cigarette/Vaping Use Never Used 05/04/24 11:13 Thrive Assessment: Date of Thrive Assessment Date Thrive assessed 12/06/23 05/04/24 11:13 Resp Effort & Inspection: normal respiratory effort Auscultation: clear to auscultation bilaterally Cardio Jugular venous distension: no JVD Rate: regular rate Rhythm: regular rhythm Heart sounds: S1 normal heart sound present and S2 normal heart sound present Extrem General: Yes full ROM Coding Level of Care Code Est Pt Level 4 (33356) Complex EM visit Add On G2211 Diagnoses PAF (paroxysmal atrial fibrillation) I48.0 COPD (chronic obstructive pulmonary disease) J44.9 Gastroesophageal reflux disease, unspecified whether esophagitis present K21.9 Esophagitis presence: esophagitis presence not specified Chronic systolic congestive heart failure I50.22 Heart failure chronicity: chronic Heart failure type: systolic Time Spent (min) 21 Assessment & Plan Assessment & Plan (1) PAF (paroxysmal atrial fibrillation): Code(s): I48.0 - Paroxysmal atrial fibrillation Category: Medical Plan: Continue chronic anticoagulation. The goal is heart rate control. Follow-up with Cardiology. (2) COPD (chronic obstructive pulmonary disease): Code(s): J44.9 - Chronic obstructive pulmonary disease, unspecified Category: Medical Plan: Continue long-acting inhaler. Use rescue inhaler as needed. (3) GERD (gastroesophageal reflux disease): Code(s): K21.9 - Gastro-esophageal reflux disease without esophagitis Category: Medical Qualifiers: Esophagitis presence: esophagitis presence not specified Qualified Code(s): K21.9 - Gastro-esophageal reflux disease without esophagitis Plan: Discontinue omeprazole. Start pantoprazole. (4) Congestive heart failure: Code(s): I50.9 - Heart failure, unspecified Category: Medical Qualifiers: Heart failure chronicity: chronic Heart failure type: systolic Qualified Code(s): I50.22 - Chronic systolic (congestive) heart failure Plan: Continue diuretics. Follow-up with Cardiology. The goal is to not gain 5 lb in a week. Orders: Orders Lipid Panel 3 Months E78.5 - Hyperlipidemia, unspecified NT-proBNP 3 Months I50.22 - Chronic systolic (congestive) heart failure Comprehensive [facility]. Panel Fast 3 Months I48.0 - Paroxysmal atrial fibrillation Vitamin D 25-OH Total 3 Months E55.9 - Vitamin D deficiency, unspecified Vitamin B12 and Folate 3 Months E53.8 - Deficiency of other specified B group vitamins Medications: New pantoprazole 40 mg PO DAILY 90 days 90 tabs 1RF fluticasone propionate 0.05% 1 appl topical DAILY 30 days 30 grams 0RF prednisone Take 4 tabs for 2 days, then 3 tabs for 2 days, then 2 tabs for 2 days, then 1 tab for 2 days 10 mg PO DIRECTED 8 days 20 tabs 0RF Refilled lorazepam 0.5 mg PO TID 30 days PRN 90 tabs 0RF anxiety Discontinued omeprazole Discontinued Reason: Patient Completed Course 20 mg PO DAILY 90 days 90 caps 1RF
[2024-05-04 11:05] VITALS: BP 122/70; BMI 19.8
== END 2024-05-04 11:40 | disposition home or self-care (01) ==
LOC: HO.HMCH 11:00
PROVIDERS: PCP Internal Medicine; Visit Provider Internal Medicine
DX: I48.0 Paroxysmal atrial fibrillation (principal); J44.9 Chronic obstructive pulmonary disease, unspecified; K21.9 Gastro-esophageal reflux disease without esophagitis; I50.22 Chronic systolic (congestive) heart failure

== ENCOUNTER → 2024-05-04 10:59 | Outpatient (BNVA) | payer MEDICARE, SELFPAY | PROVIDERS: PCP Internal Medicine; Visit Provider Internal Medicine | DX: I48.0 Paroxysmal atrial fibrillation (principal); J44.9 Chronic obstructive pulmonary disease, unspecified; K21.9 Gastro-esophageal reflux disease without esophagitis; I50.22 Chronic systolic (congestive) heart failure | CPT/HCPCS: 99212 ==

== ENCOUNTER 2024-05-19 09:53 | Outpatient (AMB) | payer MEDICARE, SELFPAY ==
[2024-05-19 10:16] VITALS: BP 90/52; PULSE 80; O2SAT 95; BMI 20.6
--- NOTE | 2024-05-19 10:16 | MHC.OFFVIS ---
Vital Signs 05/19/24 10:16 Height 5 ft 1 in Weight 109 lb 2.061 oz BMI 20.6 BP 90/52 L Blood Pressure Location Lt brachial Position Sitting Pulse 80 Pulse Oximetry (%) 95 Oxygen Delivery Method Room Air Intake Visit Reasons: COPD Intake Note: pt is here for follow up and states her breathing good days and bad days. Has concentrator at home, for prn use. 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: No Allergies Sulfa (Sulfonamide Antibiotics) Allergy (Intermediate, Verified 05/19/24 10:32) nausea, vomiting Medication List - Last Reconciled 05/19/24 by Tamara Rehman MD apixaban (Eliquis) 5 mg PO BID 90 days ascorbic acid (vitamin C) 1 g PO Q6H cholecalciferol (vitamin D3) 50 mcg PO DAILY 90 days cimetidine 400 mg PO BID 30 days compr.stocking,knee,long,small As directed dapagliflozin propanediol (Farxiga) 5 mg PO DAILY 90 days fluticasone furoate-vilanterol 200-25 mcg/dose (Breo Ellipta) 1 inh inhalation DAILY fluticasone propionate 0.05% 1 appl topical DAILY 30 days folic acid 1 mg PO DAILY furosemide (Lasix) 40 mg PO BID levalbuterol HCl 1.25 mg (3 mL) inhalation Q4-6H PRN 30 days lorazepam 0.5 mg PO TID PRN 30 days pantoprazole 40 mg PO DAILY 90 days prednisone 10 mg PO DIRECTED 8 days rosuvastatin 5 mg PO DAILY 90 days vitamin B complex 1 tab PO DAILY Do you need a note to return to daycare/school/sports/work: No HPI HPI COPD: Details: LAZARO IS 78 YEARS OLD VERY PLEASANT FEMALE OF A THIN BUILD. SHE IS FOLLOWED UP FOR ADVANCED CHRONIC OBSTRUCTIVE PULMONARY DISEASE WHICH HAS REMAINED RELATIVELY STABLE. LUCKILY SHE HAS HAD NO ACUTE RESPIRATORY INFECTION IN THE LAST 4 MONTHS. SHE FEELS THAT SHE HAS MILD TO MODERATE DEGREE OF MUCUS WHICH IS HELPED BY TAKING MUCINEX. GETS SHORT OF BREATH ON MINIMAL EXERTION WHICH IS EXPECTED. HOWEVER SHE DENIES ANY ACUTE ATTACKS OF WHEEZING. USES HER INHALERS REGULARLY. ALSO HAS MILD NASAL CONGESTION OFF AND ON WHICH IS RELIEVED BY USING FLONASE. [facility] Medical History Encounter for cardioversion procedure Atrial fibrillation with RVR Acute exacerbation of congestive heart failure Acute on chronic hypoxic respiratory failure Acute HFrEF (heart failure with reduced ejection fraction) Chronic lung disease Skin lesion Dyslipidemia Cough due to DAISY inhibitor Neck pain GERD (gastroesophageal reflux disease) Aortic regurgitation Right hand pain Leg edema COPD (chronic obstructive pulmonary disease) Allergic rhinitis Anxiety Hypertension Surgical History Carpal tunnel syndrome, right History of bilateral cataract extraction History of partial hysterectomy Family History Father Medical history unknown Mother Medical history unknown Social History Household Members: None and Other Housing: House Do you presently have visiting nurse or other home services: No Alcohol intake: current Alcohol intake frequency: holidays/special occasions only Alcohol type: other Patient Tobacco Use Status: Former Tobacco user Tobacco use type: Cigarette e-Cigarette/Vaping Use: Never Used Second Hand Smoke Exposure: No Advance Directives Date on File: 08/25/20 service: No Current occupational status: retired Cognitive needs: No Hearing needs: No Vision needs: No Review of Systems Const All systems reviewed & are unremarkable except as noted in HPI and below Eyes Reports no additional complaints ENT Reports nasal congestion (Mild intermittent) and Reports neck pain (Mild off and on) Card Denies chest pain at rest, Denies chest pain with activity, Denies edema, Denies irregular heart rhythm, Denies claudication, Denies dyspnea, Denies dyspnea on exertion, Denies orthopnea, Denies paroxysmal nocturnal dyspnea and Denies slow heart rate Resp Denies cough, Denies dyspnea and Denies dyspnea on exertion GI Reports heartburn (GERD symptoms controlled with med) Reports no additional complaints Musc Reports neck pain (Mild off and on) Skin/Breast Reports rash Neuro Reports no additional complaints Psych Reports no additional complaints Physical Exam Vital Signs: Last Vital Signs Pulse 80 05/19/24 10:16 BP 90/52 L 05/19/24 10:16 Pulse Ox 95 05/19/24 10:16 Oxygen Delivery Method Room Air 05/19/24 10:16 BMI result Body Mass Index 20.6 Const General: comfortable, no acute distress, alert and awake Orientation/consciousness: patient oriented x3 HEENT Head: Yes normal to inspection General nose exam: No nasal polyps present, No nasal discharge present and Other nasal findings present (Mild nasal congestion is present) Face and sinus: Yes sinuses nontender Mouth: oropharynx normal Throat: Yes posterior oropharynx normal Eyes General: appearance normal, both eyes and all related structures Neck Neck: Yes normal visual inspection, Yes no lymphadenopathy, Yes trachea midline and Yes no JVD Thyroid: Thyroid normal Chest Chest palpation & inspection: normal inspection of the chest, normal palpation of entire chest wall and no tenderness Resp Other: Percussion note hyper-resonant, breath sounds are equal on both sides with prolonged expiratory phase. No wheezes rhonchi, a few fine inspiratory crackles over the basilar areas. Cardio Palpation: normal PMI Rate: regular rate Rhythm: regular rhythm Heart sounds: no gallops and no murmurs GI Palpation (GI): Soft to palpation, nontender, No hepatosplenomegaly present and no masses Auscultation: normal bowel sounds Back/Spine/Pelvis Thoracic/Lumbar Spine: thoracic and lumbar spine normal to inspection Skin General skin exam: no rashes or lesions noted Neuro General: patient oriented x3 and no focal motor deficits Cranial nerves: Yes CN's II-XII intact bilaterally Extrem General: Yes normal to inspection, Yes no calf tenderness and Yes edema (1+ edema around the ankles and of the feet on both sides) Psych Appearance: grossly normal and well kempt Speech and movement: Normal speech and movement present Assessment & Plan Assessment & Plan (1) COPD (chronic obstructive pulmonary disease): Comment: COPD is severe, had remained stable over the past few years. She has had no acute exacerbation. Her respiratory status decompensates usually due to super added congestive heart failure, which at present is under control Code(s): J44.9 - Chronic obstructive pulmonary disease, unspecified Category: Medical Qualifiers: COPD type: unspecified COPD Qualified Code(s): J44.9 - Chronic obstructive pulmonary disease, unspecified Plan: Continue to use Breo 200-251 inhalation daily and Spiriva Respimat 2 inhalations daily. For rescue inhaler she needs levalbuterol because of her cardiac issues, to use Q 4-6 hours p.r.n.. For home use she also has the nebulizer and levalbuterol solution to use p.r.n.. (2) Allergic rhinitis: Comment: Allergic rhinitis is mild, intermittent and controlled . Code(s): J30.9 - Allergic rhinitis, unspecified Category: Medical Plan: May use Flonase 2 spray each nostril daily as needed (3) Acute hypoxemic respiratory failure: Comment: DURING HER HOSPITALIZATION SHE DID HAVE ACUTE HYPOXEMIC FAILURE, INITIALLY TREATED WITH BIPAP THEN CPAP AND THEN WEANED OFF. SHE WAS ADVISED TO USE O2 2 L/MINUTE, CONTINUOUSLY. AT PRESENT SHE IS USING IT ONLY AT HOME AND AT NIGHT BUT DOES NOT COME OUT WITH PORTABLE UNIT. Code(s): J96.01 - Acute respiratory failure with hypoxia Category: Medical Plan: Use O2 2 L/minute at night , and p.r.n. during. The daytime As she does not walk around much she really does not need any portable unit at this time. She had returned her POC unit . Now she has gotten a POC unit from one of the family friends . I told her to keep it at home but she does not need to bring it out of the house,. Coding Level of Care Code Est Pt Level 3 (47920) Diagnoses Chronic obstructive pulmonary disease, unspecified COPD type J44.9 COPD type: unspecified COPD Allergic rhinitis J30.9 Acute hypoxemic respiratory failure J96.01
== END 2024-05-19 10:35 | disposition home or self-care (01) ==
PROVIDERS: PCP Internal Medicine; Visit Provider Internal Medicine
DX: J44.9 Chronic obstructive pulmonary disease, unspecified (principal); J30.9 Allergic rhinitis, unspecified; J96.01 Acute respiratory failure with hypoxia
CPT/HCPCS: 99213

== ENCOUNTER → 2024-05-19 09:53 | Outpatient (BNVA) | payer MEDICARE, SELFPAY | PROVIDERS: PCP Internal Medicine; Visit Provider Internal Medicine | DX: J44.9 Chronic obstructive pulmonary disease, unspecified (principal); J30.9 Allergic rhinitis, unspecified; J96.01 Acute respiratory failure with hypoxia | CPT/HCPCS: 99212 ==

== ENCOUNTER 2024-07-02 10:46 | Outpatient (REF) | payer MEDICARE, SELFPAY ==
[2024-07-02 12:23] LABS: Influenza A PCR NEGATIVE (Negative); Influenza B PCR NEGATIVE (Negative); Resp Syncy Virus RNA Qual PCR NEGATIVE (Negative); SARS COV2 PCR INHOUSE NEGATIVE (Negative)
== END 2024-07-02 10:47 | disposition home or self-care (01) ==
LOC: HO.LAB 10:46
PROVIDERS: PCP Internal Medicine; Visit Provider Internal Medicine
DX: R09.89 Other specified symptoms and signs involving the circulatory and respiratory systems (principal)
CPT/HCPCS: 0241U

== ENCOUNTER 2024-07-27 10:50 | Outpatient (AMB) | payer MEDICARE, SELFPAY ==
[2024-07-27 11:08] VITALS: BP 90/54; PULSE 76; BMI 21.2
--- NOTE | 2024-07-27 11:08 | MHC.OFFVIS ---
Vital Signs 07/27/24 11:08 Height 5 ft 1 in Weight 111 lb 15.917 oz BMI 21.2 BP 90/54 L Blood Pressure Location Lt brachial Position Sitting Pulse 76 Pulse Source Pulse Oximeter Intake Visit Reasons: 3 mth f/up echo Intake Note: 3 mth f/up echo Beck Operator Required: No Accompanied by: Daughter Allergies Sulfa (Sulfonamide Antibiotics) Allergy (Intermediate, Verified 05/19/24 10:32) nausea, vomiting Medication List - Last Reconciled 07/27/24 by Basilio Corral MD apixaban (Eliquis) 5 mg PO BID 90 days ascorbic acid (vitamin C) 1 g PO Q6H azithromycin 250 mg PO DAILY 5 days cholecalciferol (vitamin D3) 50 mcg PO DAILY 90 days cimetidine 400 mg PO BID 30 days compr.stocking,knee,long,small As directed dapagliflozin propanediol (Farxiga) 5 mg PO DAILY 90 days fluticasone furoate-vilanterol 200-25 mcg/dose (Breo Ellipta) 1 inh inhalation DAILY fluticasone propionate 0.05% 1 appl topical DAILY 30 days folic acid 1 mg PO DAILY furosemide (Lasix) 40 mg PO BID levalbuterol HCl 1.25 mg (3 mL) inhalation Q4-6H PRN 30 days levalbuterol tartrate 45 mcg/actuation 2 puffs inhalation Q4-6H PRN 30 days lorazepam 0.5 mg PO TID PRN 30 days pantoprazole 40 mg PO DAILY 90 days prednisone 10 mg PO DIRECTED 8 days rosuvastatin 5 mg PO DAILY 90 days tiotropium bromide 2.5 mcg/actuation (Spiriva Respimat) 2 puffs inhalation DAILY 30 days vitamin B complex 1 tab PO DAILY HPI Comments Details: Pleasant 78 year female who is here for follow-up. She was seen in the hospital in 11/18/2023 when she presented with congestive heart failure in the setting of AFib with RVR and diffuse T-wave inversions with echocardiography showing LV dysfunction with LAD territory wall motion abnormality. She was taken for cardiac catheterization after discussion which showed no coronary disease and she was thought to have takotsubo cardiomyopathy. Repeat echocardiography in 12/19/2023 has shown EF 45-50% with some inferior wall motion abnormalities. Subsequent to that she had cardioversion performed and she has been in sinus rhythm and continues to be in sinus rhythm at this point. She is on apixaban 5 mg twice a day. She has been experiencing lower extremity edema which is the main concern to her currently. She has advanced COPD and gets some shortness of breath with activities and has been using her inhalers and following with pulmonology. She also has some nighttime shortness of breath episode which she has been treating with inhalers and Ativan. She has mild edema in the lower extremities but recently her Lasix dose was increased from 40 mg to 40 mg twice a day and edema has improved significantly with that. As per the granddaughter was description she has significant edema compared to what she has right now. Denying chest pains. Labs reviewed. 04/08/2024: She is here for follow-up. She had some bradycardic episodes while she was at rehab. Overall heart rate has recovered and she has no significant symptoms. She is saying her breathing is overall stable. Denying any peripheral edema. Blood pressure is well controlled. She is on apixaban currently and continues to be in sinus rhythm. She is asking whether Farxiga needs to be continued nut former because it is difficult for her to afford it along with Eliquis and other medications. 07/27/2024: She is here for follow-up. He had recent viral illness including diarrhea and respiratory tract infection for which she was given Z-Jagdish. She has been taking medications regularly otherwise. She is saying that since they viral illness she is more short of breath. No significant orthopnea or PND or peripheral edema. Taking Lasix 40 mg twice a day. Patient is asking whether Lasix dose can be decreased. Her blood pressure is also low and she feels thirsty all the time. [facility] Medical History Encounter for cardioversion procedure Atrial fibrillation with RVR Acute exacerbation of congestive heart failure Acute on chronic hypoxic respiratory failure Acute HFrEF (heart failure with reduced ejection fraction) Chronic lung disease Skin lesion Dyslipidemia Cough due to DAISY inhibitor Neck pain GERD (gastroesophageal reflux disease) Aortic regurgitation Right hand pain Leg edema COPD (chronic obstructive pulmonary disease) Allergic rhinitis Anxiety Hypertension Surgical History Carpal tunnel syndrome, right History of bilateral cataract extraction History of partial hysterectomy Family History Father Medical history unknown Mother Medical history unknown Social History Household Members: None and Other Housing: House Do you presently have visiting nurse or other home services: No Alcohol intake: current Alcohol intake frequency: holidays/special occasions only Alcohol type: other Patient Tobacco Use Status: Former Tobacco user Tobacco use type: Cigarette e-Cigarette/Vaping Use: Never Used Second Hand Smoke Exposure: No Advance Directives Date on File: 08/25/20 service: No Current occupational status: retired Cognitive needs: No Hearing needs: No Vision needs: No Review of Systems Const Denies chills, Denies fatigue, Denies fever(s), Denies frequent falls, Denies weakness, Denies weight gain and Denies weight loss ENT Denies dizziness Card Denies chest pain, Denies leg edema, Denies lightheadedness, Denies palpitations, Denies dyspnea and Denies dyspnea on exertion Resp Denies cough, Denies dyspnea and Denies dyspnea on exertion GI Denies hematochezia Musc Denies abnormal gait, Denies muscle weakness, Denies numbness, Denies radiating pain into limb and Denies tingling Neuro Denies abnormal gait, Denies dizziness, Denies frequent falls, Denies numbness, Denies tingling and Denies weakness Endo Denies fatigue and Denies palpitations Physical Exam Vital Signs: Last Vital Signs Pulse 76 07/27/24 11:08 BP 90/54 L 07/27/24 11:08 BMI result Body Mass Index 21.2 GENERAL APPEARANCE: in no acute distress, pleasant. NECK: no carotid bruit, no jugular venous distention. SKIN: no suspicious lesions, warm and dry. HEART: no murmurs, regular rate and rhythm. LUNGS: clear to auscultation bilaterally. ABDOMEN: soft, nontender. EXTREMITIES: No edema. PERIPHERAL PULSES: equal. NEUROLOGIC: No gross deficits, AAO X 3 Results Reviewed Results Reviewed: Transthoracic Echocardiogram Patient (Last, First, Middle): Yasmeen Andrews R Gender: Female Date of : 1945 Age: 78 Procedure Date: 04/30/2024 Procedure Type: Transthoracic Echocardiogram Location: OP Height: 160.02 cm Weight: 48.08 kg BSA: 1.48 m2 Heart Rate: bpm BP: 139 / 62 mmHg Air Conditioning Unit Tester: MATEO Referring MD: Basilio Corral MD [place] Floor Installer: Basilio Corral MD Symptoms: I42.9 - Cardiomyopathy, unspecified Study Quality: Adequate Conclusions: - Normal left ventricular size, thickness, systolic function, and wall motion. The visually estimated ejection fraction is between 60-65%. - Spectral Doppler is indicative of a restrictive filling pattern. Elevated filling pressures. - Normal right ventricular cavity size and systolic function. - The left atrium is severely dilated. - Severe pulmonary hypertension is present. Findings Left Ventricle Normal left ventricular size, thickness, systolic function, and wall motion. The visually estimated ejection fraction is between 60-65%. Abnormal diastolic function is noted. Spectral Doppler is indicative of a restrictive filling pattern. Elevated filling pressures. Right Ventricle Normal right ventricular cavity size and systolic function. Atria The left atrium is severely dilated. The right atrium is moderately dilated. Aortic Valve There is mild calcification of the aortic valve. There is no aortic valve stenosis. There is mild to moderate aortic valve regurgitation. Mitral Valve The mitral valve appears normal. There is mild mitral valve regurgitation. There is no mitral valve stenosis. Pulmonic Valve The pulmonic valve is likely normal. Tricuspid Valve Normal tricuspid valve structure. There is mild tricuspid valve regurgitation. The right ventricular systolic pressure is 69 mmHg. Moderately elevated right atrial pressure. Severe pulmonary hypertension is present. Great Vessels All visible segments of the aorta are normal in size. Venous The inferior vena cava is dilated and collapses greater than 50% with inspiration. Pericardium/Pleural There is no evidence of pericardial effusion. Prior Study Comparison Changes noted compared to prior study dated: 12/06/2023. EF 60-65%. Elevated filling pressures. Severe pulm HTN. Measurements 2D Linear Measurements IVSd: 0.77 0.6-0.9/0.6-1.0 cm LVIDd: 4.42 3.9-5.3/4.2-5.9 cm LVIDd Index: 2.99 2.4-3.2/2.2-3.1 cm/m2 LVIDs: 2.39 2.0-3.6 cm LVPWd: 0.77 0.7-1.1 cm LA Diam: 2.50 2.7-3.8/3.0-4.0 cm LAIDs Index: 1.69 1.5-2.3 cm/m2 LV Mass: 130.48 67-162/88-224 g LV Mass Index: 88.16 43-95/49-115 g/m2 LVOT Diam: 2.00 3.0+(-)1.3 cm 2D Systolic Function EF 4C: 73.10 >55% EF 2C: 72.80 >55% EF BiP: 73.50 >55% Mitral Valve MV Pk E: 0.93 MV PK A: 0.26 MV Decel Time: 174.00 E/A: 3.60 E'Lateral: 5.66 E'Medial: 3.59 E/E' Med: 25.80 E/E' Lat: 16.30 PHT: 51.00 MVA PHT: 4.31 Decel [place]: 5.31 Aortic Valve AoV Pk Jabari: 1.79 AoV Mn Jabari: 1.13 AoV VTI: 0.50 AoV Pk Grad: 13.00 Aov Mn Grad: 6.00 FRANCISCO Cont.VTI: 1.64 AI Pk Jabari: 4.25 AI VTI: 3.14 AI [place]: 2.66 AI Alias Jabari: 0.37 AI RV - PISA: 16.00 ERO - PISA: 5.00 LVOT LVOT Pk Jabari: 0.86 LVOT Mn Jabari: 0.61 LVOT VTI: 0.26 LVOT Pk Grad: 3.00 LVOT Mn Grad: 2.00 LVOT Diam: 2.00 LVOT Area: 3.14 Diastolic Function MV Pk E: 0.93 MV Pk A: 0.26 E/A: 3.60 E'Medial: 3.59 E/E' Med: 25.80 E' Laterial: 5.66 E/E' Lat: 16.30 Right Ventricle TAPSE (mm): 22.20 TVS' Jabari: 10.70 Tricuspid Valve TR Pk Jabari: 3.90 TR Pk Grad: 61.00 RA Press: 8.00 RVSP: 69.00 Great Vessels Aorta Sinus of Valsalva: 3.14 2.0-3.[address] [place]: 2.58 1.7-3.4 cm Ao Asc: 3.30 2.1-3.4 cm Updated in Other Vendor System with Status of Final Basilio Corral MD electronically signed on 04/30/2024 8:54:31 PM with status of Final Dictated By: Basilio Corral MD Signed By: <Electronically signed by Basilio Corral MD in OV> 04/30/242053 Assessment & Plan Assessment & Plan (1) PAF (paroxysmal atrial fibrillation): Code(s): I48.0 - Paroxysmal atrial fibrillation Category: Medical (2) Cardiomyopathy: Code(s): I42.9 - Cardiomyopathy, unspecified Category: Medical Plan [age] year female with takotsubo cardiomyopathy, paroxysmal atrial fibrillation and congestive heart failure. She underwent cardiac catheterization which did not show any coronary disease and LVEF was reduced which improved back to normal on echocardiography. She is on apixaban 5 mg twice a day. She is in sinus rhythm at this stage. Blood pressure is borderline low. She has no significant symptoms other than significant thirst and she drinks lot of water. We discussed about cutting the dose of Lasix to 40 mg once a day. She will check her standing with tomorrow and documented. She will start taking Lasix 40 mg once a day. If she starts gaining weight of 1-2 lb per day she will reach out to us. In that case we may have to resume Lasix but if her weight stays stable then I would prefer just leaving her on 40 mg once a day of Lasix. Thank you for allowing me to participate in the care of your patient. Please feel free to contact me if you have any questions. Medications: Changed From furosemide (Lasix) dose increase 40 mg PO BID 120 tabs 4RF R60.9 - Edema, unspecified To furosemide (Lasix) dose increase 40 mg PO DAILY 120 tabs 4RF R60.9 - Edema, unspecified Coding Level of Care Code Est Pt Level 4 (59336) Diagnoses PAF (paroxysmal atrial fibrillation) I48.0 Cardiomyopathy I42.9
== END 2024-07-27 11:39 | disposition home or self-care (01) ==
PROVIDERS: PCP Internal Medicine; Visit Provider Internal Medicine Cardiovascular Disease
DX: I48.0 Paroxysmal atrial fibrillation (principal); I42.9 Cardiomyopathy, unspecified
CPT/HCPCS: 99214

== ENCOUNTER → 2024-07-27 10:50 | Outpatient (BNVA) | payer MEDICARE, SELFPAY | PROVIDERS: PCP Internal Medicine; Visit Provider Internal Medicine Cardiovascular Disease | DX: I50.9 Heart failure, unspecified (principal); I48.0 Paroxysmal atrial fibrillation; I42.9 Cardiomyopathy, unspecified; R60.9 Edema, unspecified | CPT/HCPCS: 99212 ==

== ENCOUNTER 2024-08-10 09:25 | Outpatient (REF) | payer MEDICARE, SELFPAY ==
--- NOTE | ~2024-08-10 | FL_ITS ---
EXAMINATION: XR GI SERIES CLINICAL INFORMATION: Gastroesophageal reflux disease without esophagitis. COMPARISON: None available. TECHNIQUE: Routine upper GI air contrast study was performed in upright and lying position. FINDINGS: Following oral administration of thick barium and effervescent granules is normal propagation bolus from the oral cavity through the pharynx, esophagus into stomach without any evidence of obstruction, narrowing or stricture. There is prominent right bethany on splinter but no obstruction seen. No laryngeal penetration or aspiration seen. On placing patient in supine and prone overlying the course, caliber and peristalsis in the stomach, duodenal bulb and sweep is normal. The mucosal pattern of stomach and the duodenum is normal. Mild gastroesophageal reflux is noted. FLUOROSCOPY TIME: 1 minute 34 seconds DOSE AREA PRODUCT: 801.7 uGy-m2 (microgray-meter squared) FL/FL upper GI series IMPRESSION: Unremarkable upper GI exam. Mild gastroesophageal reflux. No hiatal hernia seen. Electronically signed by: Lev Dominique MD 08/10/2024 01:42 PM EST
== END 2024-08-10 09:26 | disposition home or self-care (01) ==
LOC: HO.XRAY 09:25
PROVIDERS: PCP Internal Medicine; Visit Provider Internal Medicine
DX: K21.9 Gastro-esophageal reflux disease without esophagitis (principal)
CPT/HCPCS: 74240

== ENCOUNTER → 2024-08-10 09:30 | Outpatient (BNV) | payer MEDICARE, SELFPAY | PROVIDERS: PCP Internal Medicine; Visit Provider Radiology Diagnostic Radiology | DX: K21.9 Gastro-esophageal reflux disease without esophagitis (principal) | CPT/HCPCS: 74246; 74248 ==

== ENCOUNTER 2024-08-12 10:55 | Outpatient (AMB) | payer MEDICARE, SELFPAY ==
--- NOTE | 2024-08-12 11:11 | A.OFFPC_ITS ---
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 Accompanied by: Grand Child Allergies Sulfa (Sulfonamide Antibiotics) Allergy (Intermediate, Verified 08/12/24 11:21) nausea, vomiting Medication List - Last Reconciled 08/12/24 by Parul Williamson MD apixaban (Eliquis) 5 mg PO BID 90 days ascorbic acid (vitamin C) 1 g PO Q6H azithromycin 250 mg PO DAILY 5 days cholecalciferol (vitamin D3) 50 mcg PO DAILY 90 days cimetidine 400 mg PO BID 30 days compr.stocking,knee,long,small As directed dapagliflozin propanediol (Farxiga) 5 mg PO DAILY 90 days fluticasone furoate-vilanterol 200-25 mcg/dose (Breo Ellipta) 1 inh inhalation DAILY fluticasone propionate 0.05% 1 appl topical DAILY 30 days folic acid 1 mg PO DAILY furosemide (Lasix) 40 mg PO DAILY levalbuterol HCl 1.25 mg (3 mL) inhalation Q4-6H PRN 30 days levalbuterol tartrate 45 mcg/actuation 2 puffs inhalation Q4-6H PRN 30 days lorazepam 0.5 mg PO TID PRN 30 days metoprolol succinate ER 100 mg PO DAILY 90 days pantoprazole 40 mg PO DAILY 90 days rosuvastatin 5 mg PO DAILY 90 days tiotropium bromide 2.5 mcg/actuation (Spiriva Respimat) 2 puffs inhalation DAILY 30 days vitamin B complex 1 tab PO DAILY Tobacco use date assessed: 08/12/24 Fall risk assessment: No Falls in past year Last assessed Fall Risk: 08/12/24 Dental Screening Dental Screen Date: 08/12/24 Did you have a dental visit in the last 12 months?: No Did you have a dental problem in the last 6 months where you did not have access to dental care?: No Was dental information given to patient?: No HPI HPI Comments History of Present Illness Details The patient is a 78-year-old female presenting for a physical examination. The patient is concerned about a rash that she has experienced since starting Farxiga for heart failure. The rash has spread to her back and other areas, some lesions bleed or pick off, but she has not discontinued Farxiga despite the symptoms. There is a history of surgeries including carpal tunnel and cataracts, and she has a known allergy to sulfa medications. Additionally, she experiences shortness of breath due to COPD and congestive heart failure. Her oxygen therapy, previously used 21/01, was recently discontinued because she was tired of the cords, though she continues to monitor her oxygen saturation, keeping it above 92%. Her weight increased by 3 pounds since July. She expresses chronic fatigue and difficulty sleeping, which may be exacerbated by her underlying conditions. She also has heartburn, managed with pantoprazole, and experiences frequent bowel movements causing hemorrhoidal issues. Has bilateral foot lesions that cause pain and would like to see Podiatry. As venous insufficiency and would like to see vascular surgery. Has COPD follow by pulmonology. Paroxysmal atrial fibrillation is follow by cardiology. Also had non-STEMI follow by cardiology. [facility] Medical History (Updated 08/12/24 @ 12:00 by Parul Williamson MD) Congestive heart failure Atrial fibrillation with rapid ventricular response Congestive heart failure Acute hypoxemic respiratory failure Encounter for cardioversion procedure Atrial fibrillation with RVR Acute exacerbation of congestive heart failure Acute on chronic hypoxic respiratory failure Acute HFrEF (heart failure with reduced ejection fraction) Chronic lung disease Skin lesion Dyslipidemia Cough due to DAISY inhibitor Neck pain GERD (gastroesophageal reflux disease) Aortic regurgitation Right hand pain Leg edema COPD (chronic obstructive pulmonary disease) Allergic rhinitis Anxiety Hypertension Surgical History Carpal tunnel syndrome, right History of bilateral cataract extraction History of partial hysterectomy Family History Father Medical history unknown Mother Medical history unknown Social History Household Members: None and Other Housing: House Do you presently have visiting nurse or other home services: No Alcohol intake: current Alcohol intake frequency: holidays/special occasions only Alcohol type: other Patient Tobacco Use Status: Former Tobacco user Tobacco use type: Cigarette e-Cigarette/Vaping Use: Never Used Second Hand Smoke Exposure: No Advance Directives Date on File: 08/25/20 service: No Current occupational status: retired Cognitive needs: No Hearing needs: No Vision needs: No Questionnaire PHQ-9 Over the last 2 weeks, how often have you been bothered by any of the following problems? 1. Little interest or pleasure in doing things: not at all 2. Feeling down, depressed, or hopeless: not at all 3. Trouble falling or staying asleep, or sleeping too much: not at all 4. Feeling tired or having little energy: not at all 5. Poor appetite or overeating: not at all 6. Feeling bad about yourself - or that you are a failure or have let yourself or your family down: not at all 7. Trouble concentrating on things, such as reading the newspaper or watching television: not at all 8. Moving or speaking so slowly that other people could have noticed. Or the opposite - being so fidgety or restless that you have been moving around a lot more than usual: not at all 9. Thoughts that you would be better off or of hurting yourself in some way: not at all Total score: 0 Depression Screening Interpretation: Negative Depression Screening Done: Yes 93678 - PHQ-9 Billing: Yes Source: Developed by Drs. Mick Kovacs, Yasmeen Rey, Louie Warren and colleagues, with an educational louis from [employer]. Thrive Questionnaire Date Thrive assessed: 08/12/24 I am a: Patient What is your living situation today?: I have a steady place to live Within the past 12 months, did the food you bought not last and you didn't have the money to get more?: Never true Within the past 12 months, did you worry whether your food would run out before you got money to buy more?: Never true Do you have trouble paying for medicines?: No Do you have trouble getting transportation to medical appointments?: I choose not to answer this question Do you have trouble paying your heating and electricity bill?: I choose not to answer this question Do you have trouble taking care of your child, family member or friend?: I choose not to answer this question Do you have trouble with day-to-day activities such as bathing, preparing meals, shopping, managing finances, etc.?: I choose not to answer this question Are you currently unemployed and looking for a job?: I choose not to answer this question Are you interested in more education?: I choose not to answer this question Please select the resources that you would like help with: None Currently or been in a relationship where the following occur: I choose not to answer THRIVE Score: 0 AUDIT C Alcohol Use Questionnaire (AUDIT-C) 1. How often do you have a drink containing alcohol?: Never Total Score: 0 Score Reviewed/Action Taken: No CHRISTIAN-7 AMB Questionnaire CHRISTIAN-7 Date CHRISTIAN - 7 assessed: 08/12/24 Feeling nervous, anxious, or on edge: 0 = Not at all Not being able to stop or control worryin = Not at all Worrying too much about different things: 0 = Not at all Trouble relaxin = Not at all Being so restless that it is hard to sit still: 0 = Not at all Becoming easily annoyed or irritable: 0 = Not at all Feeling afraid as if something awful might happen: 0 = Not at all Total CHRISTIAN-7 score (0-4 normal; 5-9 mild; 10-14 moderate; 15-21 severe): 0 Source: Developed by Drs. Mick Kovacs, Yasmeen Rey, Louie Warren and colleagues, with an educational louis from [employer]. CHRISTIAN-7 Assessment Billing CHRISTIAN-7 Assessment Tool: CHRISTIAN-7 Assessment 15665 Review of Systems Const All systems reviewed & are unremarkable except as noted in HPI and below Card Denies chest pain at rest, Denies chest pain with activity, Denies edema, Denies irregular heart rhythm, Denies claudication, Denies dyspnea, Denies dyspnea on exertion, Denies orthopnea, Denies paroxysmal nocturnal dyspnea and Denies slow heart rate Resp Denies cough, Denies dyspnea and Denies dyspnea on exertion Neuro Denies lack of coordination Physical exam (Primary Care) Vital Signs: Last Vital Signs BP 108/60 08/12/24 11:14 BMI result Body Mass Index 21.6 Tobacco/Smoking Status: Tobacco use Status Tobacco use date assessed 08/12/24 08/12/24 11:20 Patient Tobacco Use Status Former Tobacco user 08/12/24 11:13 Tobacco use type Cigarette 08/12/24 11:13 e-Cigarette/Vaping Use Never Used 08/12/24 11:13 PHQ-9: PHQ-9 Score PHQ-9: Total score 0 08/12/24 11:13 Depression Screening Interpretation: Negative Thrive Assessment: Date of Thrive Assessment Date Thrive assessed 08/12/24 08/12/24 11:13 Currently or been in a relationship where the following occur: I choose not to answer HENVT Head: Yes normal to inspection, Yes normocephalic and Yes atraumatic Ears: external ears normal Eyes General: appearance normal, both eyes and all related structures Eyelids: Yes eyelids normal Conjunctivae: conjunctivae normal Neck Neck: Yes normal visual inspection and Yes supple Resp Effort & Inspection: normal respiratory effort Auscultation: clear to auscultation bilaterally Cardio Jugular venous distension: no JVD Rate: regular rate Rhythm: regular rhythm Heart sounds: S1 normal heart sound present and S2 normal heart sound present GI Inspection: Yes normal to inspection Palpation (GI): Soft to palpation and nontender Auscultation: normal bowel sounds Skin General skin exam: no rashes or lesions noted Neuro General: no focal motor deficits Extrem General: Yes full ROM Psych Appearance: grossly normal Coding Level of Care Code Est Pt Level 4 (17033) Est Pt Prev Care >65y(98549) Diagnoses Physical exam Z00.00 PAF (paroxysmal atrial fibrillation) I48.0 COPD (chronic obstructive pulmonary disease) J44.9 NSTEMI (non-ST elevated myocardial infarction) I21.4 Cardiomyopathy I42.9 Foot lesion L98.9 Venous (peripheral) insufficiency I87.2 Rash R21 Additional Codes PHQ-9 - 76188 - PHQ-9 Billing: Yes ([id number]) CHRISTIAN-7 Assessment Billing - CHRISTIAN-7 Assessment Tool: CHRISTIAN-7 Assessment 44300 ([id number]) Time Spent (min) 38 Assessment & Plan Assessment & Plan (1) Physical exam: Code(s): Z00.00 - Encounter for general adult medical examination without abnormal findings Category: Medical (2) PAF (paroxysmal atrial fibrillation): Code(s): I48.0 - Paroxysmal atrial fibrillation Category: Medical (3) COPD (chronic obstructive pulmonary disease): Code(s): J44.9 - Chronic obstructive pulmonary disease, unspecified Category: Medical (4) NSTEMI (non-ST elevated myocardial infarction): Comment: Recent admission with acute congestive heart failure and NSTEMI, ,AT [facility] FOLLOWED BY CARDIAC CATHETERIZATION AT [facility], HAD POOR EJECTION FRACTION, BEING TREATED FOR CONGESTIVE HEART FAILURE. Code(s): I21.4 - Non-ST elevation (NSTEMI) myocardial infarction Category: Medical (5) Cardiomyopathy: Code(s): I42.9 - Cardiomyopathy, unspecified Category: Medical (6) Foot lesion: Code(s): L98.9 - Disorder of the skin and subcutaneous tissue, unspecified Category: Medical (7) Venous (peripheral) insufficiency: Code(s): I87.2 - Venous insufficiency (chronic) (peripheral) Category: Medical (8) Rash: Code(s): R21 - Rash and other nonspecific skin eruption Category: Medical Plan - Assess the cause of the rash, potentially linked to Farxiga; advise holding medication for a week. - Refer for podiatry consultation for foot discomfort assessment. - Monitor oxygen saturation independently; ensure levels remain above 92%. - Blood work to check hemoglobin and other markers during the upcoming routine examination. - Continue heartburn management with pantoprazole. - Emphasize weight tracking at home; adjust diuretic use to control weight if necessary. Patient was informed and verbally consented to the use of an ambient scribe for clinic note documentation during this visit. I discussed the possibility that the skin rash might be linked to the initiation of Farxiga. 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 The patient should maintain monitoring her oxygen saturation to ensure it stays above 92% due to her COPD. She is concerned about her frequent bowel movements and accompanying hemorrhoids but reassured that these could be related to dietary habits and medication effects. We discussed her willingness to see a sales account manager due to her chronic foot discomfort. I recommended continuing with current medications unless advised otherwise by her specialists. Scheduled blood work is suggested in the upcoming months to reassess her hemoglobin levels and other markers. Orders: Orders Lipid Panel 6 Months E78.5 - Hyperlipidemia, unspecified Vitamin D 25-OH Total 6 Months E55.9 - Vitamin D deficiency, unspecified Comprehensive [place]. Panel Fast 6 Months Z00.00 - Encounter for general adult medical examination without abnormal findings Complete Blood Count Auto Diff 6 Months R21 - Rash and other nonspecific skin eruption Referrals Podiatry Referral L98.9 - Disorder of the skin and subcutaneous tissue, unspecified Vascular Surgery Referral I87.2 - Venous insufficiency (chronic) (peripheral) Patient Instructions: - Hold the Farxiga for a week and monitor for any changes in the rash. - Follow up with a sales account manager for foot evaluation. - Monitor your oxygen saturation frequently to ensure it stays above 92%. - Continue taking pantoprazole as prescribed for heartburn. - Avoid foods that exacerbate bowel movements if indicated. - Schedule routine blood work before your next visit. - Update your healthcare team with any significant changes or worsening symptoms.
[2024-08-12 11:14] VITALS: BP 108/60; PULSE 83; O2SAT 94; BMI 21.6
== END 2024-08-12 11:46 | disposition home or self-care (01) ==
PROVIDERS: PCP Internal Medicine; Visit Provider Internal Medicine
DX: Z00.00 Encounter for general adult medical examination without abnormal findings (principal); R21 Rash and other nonspecific skin eruption; I48.0 Paroxysmal atrial fibrillation; J44.9 Chronic obstructive pulmonary disease, unspecified; I25.2 Old myocardial infarction; I42.9 Cardiomyopathy, unspecified; L98.9 Disorder of the skin and subcutaneous tissue, unspecified; I87.2 Venous insufficiency (chronic) (peripheral)

== ENCOUNTER → 2024-08-12 10:55 | Outpatient (BNVA) | payer MEDICARE, SELFPAY | PROVIDERS: PCP Internal Medicine; Visit Provider Internal Medicine | DX: Z00.01 Encounter for general adult medical examination with abnormal findings (principal); I48.0 Paroxysmal atrial fibrillation; J44.9 Chronic obstructive pulmonary disease, unspecified; I21.4 Non-ST elevation (NSTEMI) myocardial infarction; I42.9 Cardiomyopathy, unspecified; L98.9 Disorder of the skin and subcutaneous tissue, unspecified; I87.2 Venous insufficiency (chronic) (peripheral); R21 Rash and other nonspecific skin eruption | CPT/HCPCS: 96127; 99212; 99397 ==

== ENCOUNTER 2024-08-30 07:58 | Emergency (ER) | payer MEDICARE, SELFPAY ==
--- NOTE | ~2024-08-30 | XR_ITS ---
CLINICAL HISTORY: URI 2 view chest x-ray Comparison: CR/SR - XR CHEST 1V - 12/06/23 00:46 EDT Findings: There is no focal pneumonia. Normal size heart. No acute fracture. There is hyperaeration and emphysematous changes. IMPRESSION: There is hyperaeration and emphysematous changes. there is no focal pneumonia. This document has been electronically signed by: Max Hall MD on 08/30/2024 09:10:31
--- NOTE | ~2024-08-30 | XR_ITS ---
CLINICAL HISTORY: pain swelling 3 view right foot Comparison: None Findings: Bones intact. No dislocations. No significant arthritic change or erosions. No ankle effusion. No radiopaque foreign body. IMPRESSION: 1. No acute findings. This document has been electronically signed by: Max Hall MD on 08/30/2024 09:08:12
[2024-08-30 08:03] VITALS: BP 132/57; PULSE 91; RESP 16; TEMP 36.4; O2SAT 95; BMI 19.8
--- NOTE | 2024-08-30 08:37 | ED_ITS ---
HPI - General Adult General Chief complaint: Upper Respiratory Symptoms Stated complaint: sob Time Seen by Provider: 08/30/24 08:36 History of Present Illness ED Provider: Yue SKAGGS narrative: The patient is an 79-year-old woman with a history of chronic lung disease. she has COPD. She is on home oxygen at 2 L. She also has a history of atrial fibrillation and is on apixaban. The patient says that over the last month or 2 she has had a worsening sensation of dyspnea on exertion. She says that when she does even trivial house chores she has to sit and catch her breath. She also says that over the last 24 hours she has had some pain and swelling in her right foot. She noticed that she has some redness and swelling to the medial aspect of the right foot. She says that both of her feet were very swollen yesterday and she doubled her usual it dose of furosemide (she normally takes 40 b.i.d., yesterday she took 80 b.i.d.). She says that the swelling of her left foot today is much better because of the additional furosemide but she has some redness and swelling on the medial aspect of the right foot as well as pain that persists. She says that she came the emergency room this morning because her shortness of breath on exertionwas even worse than it has been over the last few weeks. she recently saw her primary care doctor about her respiratory complaints and was prescribed a course of azithromycin that she finished yesterday. Related Data Home Medications ?Medication ?Instructions ?Recorded ?Confirmed folic acid 1 mg tablet 1 mg PO DAILY 12/06/23 08/12/24 vitamin B complex 1 tab PO DAILY 12/06/23 08/12/24 ascorbic acid (vitamin C) 1,000 mg 1 g PO Q6H 04/08/24 08/12/24 capsule Previous Rx's ?Medication ?Instructions ?Recorded apixaban 5 mg tablet (Eliquis) 5 mg PO BID 90 days #180 tabs 12/15/23 rosuvastatin 5 mg tablet 5 mg PO DAILY 90 days #90 tabs 12/15/23 levalbuterol HCl 1.25 mg/3 mL 1.25 mg (3 mL) inhalation Q4-6H 01/06/24 solution for nebulization PRN shortness of breath or wheezing 30 days #90 mL compr.stocking,knee,long,small #2 ea 01/08/24 dapagliflozin propanediol 5 mg 5 mg PO DAILY 90 days #90 tabs 03/28/24 tablet (Farxiga) fluticasone propionate 0.05 % 1 appl topical DAILY 30 days #30 05/04/24 topical cream grams pantoprazole 40 mg tablet,delayed 40 mg PO DAILY 90 days #90 tabs 05/04/24 release levalbuterol tartrate 45 2 puff inhalation Q4-6H PRN 05/19/24 mcg/actuation aerosol inhaler shortness of breath 30 days #15 grams tiotropium bromide 2.5 2 puff inhalation DAILY copd, 30 06/01/24 mcg/actuation mist for inhalation days #4 grams (Spiriva Respimat) cholecalciferol (vitamin D3) 50 50 mcg PO DAILY 90 days #90 caps 06/11/24 mcg (2,000 unit) capsule fluticasone furoate 200 1 inh inhalation DAILY #60 ea 07/06/24 mcg-vilanterol 25 mcg/dose inhalation powder (Breo Ellipta) furosemide 40 mg tablet (Lasix) 40 mg PO DAILY #120 tabs 07/27/24 metoprolol succinate 100 mg 100 mg PO DAILY 90 days #90 tabs 08/05/24 tablet,extended release 24 hr gabapentin 100 mg capsule 100 mg PO TID 30 days #90 caps 08/14/24 cimetidine 400 mg tablet 400 mg PO BID 30 days #60 tabs 08/24/24 lorazepam 0.5 mg tablet 0.5 mg PO TID PRN anxiety 30 days 08/24/24 #90 tabs azithromycin 250 mg tablet 250 mg PO DAILY 5 days #6 tabs 08/25/24 prednisone 20 mg tablet 20 mg PO DAILY #12 tabs 08/30/24 Allergies Allergy/AdvReac Type Severity Reaction Status Date / Time Sulfa (Sulfonamide Allergy Intermediate nausea, Verified 08/30/24 08:08 Antibiotics) vomiting Review of Systems 2 Review of Systems: Yes all other systems are reviewed and are negative [facility] Past Medical History Medical History (Updated 08/30/24 @ 12:22 by Johny Turner MD) Congestive heart failure Atrial fibrillation with rapid ventricular response Congestive heart failure Acute hypoxemic respiratory failure Encounter for cardioversion procedure Atrial fibrillation with RVR Acute exacerbation of congestive heart failure Acute on chronic hypoxic respiratory failure Acute HFrEF (heart failure with reduced ejection fraction) Chronic lung disease Skin lesion Dyslipidemia Cough due to DAISY inhibitor Neck pain GERD (gastroesophageal reflux disease) Aortic regurgitation Right hand pain Leg edema COPD (chronic obstructive pulmonary disease) Allergic rhinitis Anxiety Hypertension Surgical History Carpal tunnel syndrome, right History of bilateral cataract extraction History of partial hysterectomy Family History Family History Father Medical history unknown Mother Medical history unknown Social History Social History Household Members: None and Other Housing: House Do you presently have visiting nurse or other home services: No Alcohol intake: current Alcohol intake frequency: holidays/special occasions only Alcohol type: other Patient Tobacco Use Status: Former Tobacco user Tobacco use type: Cigarette e-Cigarette/Vaping Use: Never Used Second Hand Smoke Exposure: No Advance Directives: Yes Advance Directives Information Provided: Yes Advance Directives on File: No Advance Directives Date on File: 08/25/20 Do you have a plan to hurt others: No Plan service: No Current occupational status: retired Cognitive needs: No Hearing needs: No Vision needs: No Physical Exam ED Vital Signs: Vital Signs - 24 hr 08/30/24 08:03 08/30/24 09:34 08/30/24 11:46 Temperature 97.6 F Pulse Rate 91 78 87 Respiratory Rate 16 21 H 16 Blood Pressure 132/57 L Pulse Oximetry 95 Oxygen Delivery Method Nasal Cannula BMI result Body Mass Index 19.8 Const Other: The patient is a very cachectic looking 79-year-old. She looks quite chronically ill. She does not appear obviously acutely ill however. No acute respiratory difficulty at rest. HENMT Other: Face is symmetrical. Mucous membranes moist. Eyes General: appearance normal, both eyes and all related structures Neck Neck: Yes full ROM and Yes no JVD Resp Other: No obvious increased work of breathing. The patient has profoundly diminished air entry bilaterally. No gabriel wheezes or crackles. Cardio Other: The patient has an irregular rate and rhythm. No definite murmur GI Other: abdomen is soft and nontender Skin Other: there is some slight erythema to the skin of the medial aspect of the right foot in the midfoot region. there is some slight swelling and tenderness in this region. The skin is otherwise dry and unremarkable. Neuro Other: The patient is awake and alert with a normal mental status. Cranial nerves 2- 12 are grossly intact. She moves her extremities symmetrically and appropriately. She seems grossly neurologically intact. Extrem Other: The patient has no calf swelling or tenderness or asymmetry. In the right foot, at the medial aspect of the midfoot portion of the foot, there is an area of erythema and swelling and tenderness. There is no skin breakdown. There is no lymphangitis. There is no gross deformity to the bony structure of the foot.. The left foot is nonedematous. Medications Administered Discontinued Medications Generic Name Dose Route Start Last Admin Trade Name Kathrin PRN Reason Stop Dose Admin Albuterol Sulfate 2.5 mg 08/30/24 11:46 08/30/24 11:48 Albuterol Sulfate (0.083%) 2.5 Mg/3 Ml Vial.Neb INHALE 08/30/24 11:47 2.5 mg ONCE ONE Administration Albuterol/Ipratropium 3 ml 08/30/24 09:12 08/30/24 09:36 Albuterol/Iprat 2.5/0.5mg 3 Ml Ampul.Neb INHALE 08/30/24 09:13 Not Given ONCE ONE Albuterol Sulfate 2.5 mg/ 0 mg 08/30/24 09:34 08/30/24 09:42 Albuterol/Ipratropium 3 ml INHALE 08/30/24 09:35 5 dose ONCE ONE Administration Medical Decision Making Medical Decision Making [facility] Narrative: The patient is a frail looking 79-year-old with a history of COPD, atrial fibrillation, and CHF who lives at home. She describes worsening dyspnea on exertion over the last several weeks. She just finished a course of azithromycin that was prescribed to her over the phone and which she did not feel helped her symptoms. She also has a some redness on the medial aspect of her right foot. The patient does not look significantly acutely ill although she looks quite chronically ill. She has diminished air entry in her lung exam. Her chest x- ray has been read as showing no acute findings. She has tested positive for RSV today. I suspect this is probably why she is feeling more short of breath on exertion. Her CBC and her CRP are unremarkable. Her renal function seems somewhat worse than previous but not severely so. This may be because she used additional furosemide yesterday. The patient was given bronchodilator treatments with some improvement in her symptoms. She does not wish to be hospitalized and I am not sure she requires hospitalization. Interestingly she has a bronchodilator nebulizer machine and appropriate medication for the machine at home but she has never used it. she has only used her inhalers. She will be started on a course of prednisone. She is encouraged to start using her nebulizer machine. She is here with a grandson at the bedside who is an ER nurse and will help her use the machine at home. She is encouraged to follow up promptly with her selling manager and her PCP to discuss today's visit. She should return to the ER if worse. Lab Data 08/30/24 09:48 08/30/24 09:48 Labs: Lab Results 08/30/24 08/30/24 08/30/24 Range/Units 09:00 09:48 11:03 WBC 6.4 (4.8-10.8) X10*3/uL RBC 4.08 L (4.20-5.50) X10*6/uL Hgb 11.8 L (12.0-16.0) g/dl Hct 38.5 (37.0-47.0) % MCV 94.4 (80.0-98.0) fL MCH 28.9 (27.0-33.0) pg MCHC 30.6 L (31.0-35.0) g/dl RDW 15.3 (11.0-16.0) % Plt Count 182 (160-400) X10*3/uL MPV 10.6 (9.4-12.3) fL Immature Gran % (Auto) 0.6 H (0.0-0.4) % Neut % (Auto) 76.2 H (45-73) % Lymph % (Auto) 13.4 L (20-40) % Summers % (Auto) 8.6 (2-11) % Eos % (Auto) 0.6 (0-4) % Baso % (Auto) 0.6 (0-2) % Lymph # (Auto) 0.9 L (1.2-4.9) X10*3/uL Summers # (Auto) 0.6 (0.1-1.2) X10*3/uL Eos # (Auto) 0.0 (0.0-0.4) X10*3/uL Baso # (Auto) 0.0 (0.0-0.2) X10*3/uL Abs Immat Gran (auto) 0.04 H (0.00-0.03) X10*3/uL Absolute Neuts (auto) 4.8 (2.0-8.3) x10*3/uL Absolute Nucleated RBC 0.000 (0.0-0.012) X10*3/uL Nucleated RBC % (auto) 0.0 (0.0-0.2) /100WBC Sodium 143 (135-145) mmol/L Potassium 3.9 (3.3-5.1) mmol/L Chloride 104 (96-108) mmol/L Carbon Dioxide 26 (22-29) mmol/L Anion Gap 17 (12-20) BUN 33 H (9-16) mg/dL Creatinine 1.36 (0.5-1.4) mg/dL Estim Creat Clear Calc 26.4 Estimated GFR 37 Random Glucose 104 (60-115) mg/dL Calcium 8.8 D (8.4-10.2) mg/dL Magnesium 1.7 (1.6-2.6) mg/dL Total Bilirubin 0.8 (0.0-1.0) mg/dL Direct Bilirubin 0.4 (0.0-0.5) mg/dL AST 34 H (5-31) U/L ALT 22 (0-31) U/L Alkaline Phosphatase 147 H (39-117) U/L Troponin I High Sens 13.7 (<3.5-17.0) ng/L C-Reactive Protein 0.75 H (< or = 0.50) mg/dL B-Natriuretic Peptide 1929 H (<100) pg/mL Total Protein 6.5 (6.5-8.0) g/dL Albumin 3.6 (3.5-5.0) g/dL Influenza Type A (PCR) NEGATIVE (Negative) Influenza Type B (PCR) NEGATIVE (Negative) RSV RNA Qual (PCR) POSITIVE A (Negative) SARS-CoV-2 RNA (RT-PCR) NEGATIVE (Negative) Independent Interpretation I performed an independent interpretation of an: EKG Interpretation: EKG at 09:27 shows atrial fibrillation at 77 beats per minute. No definite acute ischemic changes. Discharge Plan Discharge Clinical Impression: Respiratory syncytial virus (RSV) infection, COPD with acute exacerbation, Contusion of right foot Patient Disposition: Home, Self-Care Additional Instructions: You have tested positive for a virus today. This viruses RSV, respiratory syncytial virus. this may be making you feel somewhat more short of breath. You has been started on a course of prednisone, a steroid medication which I am hoping will help your lungs. Please start using the inhaler machine that you have at home. I would recommend using this every 4 hours as needed for a sense of shortness of breath with the albuterol medication you have at home. Please continue all your other regular medications. Please contact your pulmonary doctor's office tomorrow to see if you can get a prompt follow up appointment. Also make a follow up appointment with your regular primary care doctor. return to the emergency room if you feel significantly worse. Prescriptions: New prednisone 20 mg tablet 20 mg PO DAILY Qty: 12 0RF Rx Instructions: Take 3 tablets by mouth daily for 2 days then take 2 tablets by mouth daily for 3 days. No Action Eliquis 5 mg tablet 5 mg PO BID 90 Days Qty: 180 1RF rosuvastatin 5 mg tablet 5 mg PO DAILY 90 Days Qty: 90 1RF dapagliflozin propanediol [Farxiga] 5 mg tablet 5 mg PO DAILY 90 Days Qty: 90 2RF Spiriva Respimat 2.5 mcg/actuation mist 2 puff inhalation DAILY 30 Days Qty: 4 5RF Rx Instructions: cannot use SPIRIVS HANDI_HALOR cholecalciferol (vitamin D3) 50 mcg (2,000 unit) capsule 50 mcg PO DAILY 90 Days Qty: 90 1RF fluticasone furoate-vilanterol [Breo Ellipta] 200-25 mcg/dose blister with device 1 inh inhalation DAILY Qty: 60 2RF metoprolol succinate 100 mg tablet extended release 24 hr 100 mg PO DAILY 90 Days Qty: 90 1RF gabapentin 100 mg capsule 100 mg PO TID 30 Days Qty: 90 0RF cimetidine 400 mg tablet 400 mg PO BID 30 Days Qty: 60 0RF Rx Instructions: administer with meals lorazepam 0.5 mg tablet 0.5 mg PO TID PRN (Reason: anxiety) 30 Days Qty: 90 0RF azithromycin 250 mg tablet 250 mg PO DAILY 5 Days Qty: 6 0RF Rx Instructions: Take 2 tabs the first day, then 1 tab for the next 4 days vitamin B complex Tablet 1 tab PO DAILY folic acid 1 mg Tablet 1 mg PO DAILY levalbuterol HCl 1.25 mg/3 mL solution for nebulization 1.25 mg inhalation Q4-6H PRN (Reason: shortness of breath or wheezing) 30 Days Qty: 90 3RF pantoprazole 40 mg tablet,delayed release (DR/EC) 40 mg PO DAILY 90 Days Qty: 90 1RF fluticasone propionate 0.05 % cream 1 appl topical DAILY 30 Days Qty: 30 0RF furosemide [Lasix] 40 mg tablet 40 mg PO DAILY Qty: 120 4RF Rx Instructions: dose increase (DME) compr.stocking,knee,long,small Misc See Rx Instructions .Route Qty: 2 1RF Rx Instructions: As directed ascorbic acid (vitamin C) 1,000 mg capsule 1 g PO Q6H levalbuterol tartrate 45 mcg/actuation HFA aerosol inhaler 2 puff inhalation Q4-6H PRN (Reason: shortness of breath) 30 Days Qty: 15 3RF Referrals: Tamara Rehman MD [Physician] - ( worsening dyspnea on exertion, COPD, RSV positive) Parul Cartagena MD [Primary Care Provider] - Print Language: Slovenian
--- OUTSIDE RECORDS SUMMARY | 2024-08-30 08:42 | XMS_ITS | Patient Health Record ---
Author Organization [facility] [address] Address [address] [place] [address] Care Team Providers Care Show Operations Supervisor Name Role Phone Bonilla BURGOS, Parul Primary Care Provider Unavail Renuka Majano Unavailable [phone] Allergies Allergen (clinical drug ingredient) Drug/Non Drug Allergy documented on EMR Reaction Allergy Type Onset Date Status sulfamethoxazole / trimethoprim Bactrim Unknown Drug Allergy Active Reason For Referral No Information Social History Tobacco Use: Social History Observation Description Date Details (start date - stop date) Former Smoker NA - NA Tobacco use other than smoking: Question Answer Notes Are you an other tobacco user? No Tobacco Control (Standard) Question Answer Notes Tobacco use: Former smoker Additional Findings: Tobacco non-user Current no nsmoker AUDIT-C (Standard) Question Answer Notes Did you have a drink contain ing alcohol in the past year? Yes How often did you have a dri nk containing alcohol in the past year? Never (0 point) How many drinks did you have on a typical day when you were drinking in the past year? 1 or 2 drinks (0 point) How often did you have six o r more drinks on one occasion in the past year? Never (0 point) Points 0 Interpretation Negative Encounters Encounter Location Date Provider Diagnosis [facility] [address] [place] [address] 08/24/2024 Renuka Loja Plan Of Treatment Next Appt Details Provider Name:Renuka dunn, 10/27/2024 10:30:00 AM, [address] [place], [address], Insurance Providers Payer Name Payer Address Payer Phone Subscriber Number Group Number Insured Name Patient Relationship to Insured Coverage Start Date Coverage End Date Medicare [facility] [address] [place] [phone] [id number] JulianaFede mosleyet Self - patient is the insured [facility] [address] [place] [address] [id number] JulianaYasmeen mosley Self - patient is the insured Medical (General) History Medical History History ICD Code Anxiety Cataracts High Blood Pressure Lung disease Reflux ( GERD) Surgical History Surgery Date(Month/Year) partial hysterectomy 1972 appendectomy 1965
--- OUTSIDE RECORDS SUMMARY | 2024-08-30 08:42 | XMS_ITS ---
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 Generated for Printi melvi/Jody/eTransmitting on:?08/30/2024 08:42 AM EST
--- NOTE | 2024-08-30 09:10 | ECG_ITS ---
Test Reason : DYSPNEA Blood Pressure : */* mmHG Vent. Rate : 77 BPM Atrial Rate : * BPM P-R Int : * ms QRS Dur : 88 ms QT Int : 402 ms P-R-T Axes : * -78 268 degrees QTcB Int : 454 ms Atrial fibrillation with a competing junctional pacemaker Left anterior fascicular block Septal infarct , age undetermined Abnormal ECG When compared with ECG of 11-Dec-2023 13:40, Atrial fibrillation has replaced Sinus rhythm Non-specific change in ST segment in Anterior leads Nonspecific T wave abnormality, improved in Lateral leads Referred By: Johny Turner Electronically Signed By: Basilio Corral
[2024-08-30 09:34] VITALS: PULSE 78; RESP 21; O2SAT 99
[2024-08-30] MEDS: Albuterol Sulfate 2.5 MG, Albuterol/Iprat 2.5/0.5MG 3 ML 3 ML INHALE (09:42)
[2024-08-30 09:43] LABS: Influenza A PCR NEGATIVE (Negative); Influenza B PCR NEGATIVE (Negative); Resp Syncy Virus RNA Qual PCR POSITIVE (Negative); SARS COV2 PCR INHOUSE NEGATIVE (Negative)
[2024-08-30 09:59] LABS: Basophils Percent Auto 0.6 % (0-2); Eosinophils Percent Auto 0.6 % (0-4); Hematocrit 38.5 % (37.0-47.0); Hemoglobin 11.8 g/dl (12.0-16.0); Imm Gran Abs Auto 0.04 X10*3/uL (0.00-0.03); Imm Gran Pct Auto 0.6 % (0.0-0.4); Lymphocytes Absolute Auto 0.9 X10*3/uL (1.2-4.9); Lymphocytes Percent Auto 13.4 % (20-40); Mean Corpuscular HGB Conc 30.6 g/dl (31.0-35.0); Mean Corpuscular Hemoglobin 28.9 pg (27.0-33.0); Mean Corpuscular Volume 94.4 fL (80.0-98.0); Mean Platelet Volume 10.6 fL (9.4-12.3); Monocytes Absolute Auto 0.6 X10*3/uL (0.1-1.2); Monocytes Percent Auto 8.6 % (2-11); Neutrophils Absolute Auto 4.8 x10*3/uL (2.0-8.3); Neutrophils Percent Auto 76.2 % (45-73); Red Blood Count 4.08 X10*6/uL (4.20-5.50); Red Cell Distribution Width 15.3 % (11.0-16.0)
[2024-08-30 10:00] LABS: Platelet Count 182 X10*3/uL (160-400); White Blood Count 6.4 X10*3/uL (4.8-10.8)
[2024-08-30 10:14] LABS: Alanine Aminotransferase 22 U/L (0-31); Albumin Level 3.6 g/dL (3.5-5.0); Alkaline Phosphatase 147 U/L (39-117); Anion Gap 17 (12-20); Aspartate Amino Transferase 34 U/L (5-31); Bilirubin Direct 0.4 mg/dL (0.0-0.5); Bilirubin Total 0.8 mg/dL (0.0-1.0); Blood Urea Nitrogen 33 mg/dL (9-16); C Reactive Protein 0.75 mg/dL (< or = 0.50); Calcium 8.8 mg/dL (8.4-10.2); Carbon Dioxide 26 mmol/L (22-29); Chloride 104 mmol/L (96-108); Creatinine Clr Calc Pharmacy 26.4; Estimated Glomerular Filt Rate 37; Glucose Random 104 mg/dL (60-115); Magnesium 1.7 mg/dL (1.6-2.6); Potassium 3.9 mmol/L (3.3-5.1); Sodium 143 mmol/L (135-145); Total Protein 6.5 g/dL (6.5-8.0)
[2024-08-30 10:15] LABS: Troponin-I High Sensitivity 13.7 ng/L (<3.5-17.0)
[2024-08-30 11:46] VITALS: PULSE 87; RESP 16; O2SAT 98
[2024-08-30] MEDS: Albuterol Sulfate (0.083%) 2.5 MG/3 ML VIAL.NEB INHALE (11:48)
[2024-08-30 11:57] LABS: B Type Natriuretic Peptide 1929 pg/mL (<100)
[2024-08-30] MEDS: predniSONE 20 MG TABLET 60 MG PO (12:36)
[2024-08-30 12:46] VITALS: BP 00/00; PULSE 87; RESP 16; TEMP -17.7; TEMP 0; O2SAT 0
== END 2024-08-30 12:46 | disposition home or self-care (01) ==
PROVIDERS: Emergency Provider Emergency Medicine; PCP Internal Medicine
DX: J22 Unspecified acute lower respiratory infection (principal); B97.4 Respiratory syncytial virus as the cause of diseases classified elsewhere; I48.91 Unspecified atrial fibrillation; R06.02 Shortness of breath; Z99.81 Dependence on supplemental oxygen; Z87.891 Personal history of nicotine dependence; Z79.899 Other long term (current) drug therapy; Z03.818 Encounter for observation for suspected exposure to other biological agents ruled out
CPT/HCPCS: 0241U; 36415; 71046; 73630; 80048; 80076; 83735; 83880; 84484; 85025; 86140; 93005; 94640; 99284

== ENCOUNTER → 2024-08-30 08:23 | Outpatient (BNV) | payer MEDICARE, SELFPAY | PROVIDERS: Emergency Provider Emergency Medicine; PCP Internal Medicine; Visit Provider Radiology Diagnostic Radiology | DX: J43.9 Emphysema, unspecified (principal); M79.671 Pain in right foot; R22.41 Localized swelling, mass and lump, right lower limb | CPT/HCPCS: 71046; 73630 ==

== ENCOUNTER → 2024-08-30 09:10 | Outpatient (BNV) | payer MEDICARE, SELFPAY | PROVIDERS: Emergency Provider Emergency Medicine; PCP Internal Medicine; Visit Provider Internal Medicine Cardiovascular Disease | DX: R06.09 Other forms of dyspnea (principal); I48.91 Unspecified atrial fibrillation; R94.31 Abnormal electrocardiogram [ECG] [EKG] | CPT/HCPCS: 93010 ==

== ENCOUNTER 2024-09-06 13:59 | Inpatient (IN) | payer MEDICARE, SELFPAY ==
--- NOTE | ~2024-09-06 | XR_ITS ---
CLINICAL HISTORY: SOB, CHest pain, cough 1 view chest x-ray Comparison: CR - XR CHEST 2V - 08/30/24 08:54 EST Findings: There is prominence of interstitial markings within the bilateral lungs, most likely chronic. No consolidative process. Normal size heart. No acute fracture. IMPRESSION: 1. No acute findings. This document has been electronically signed by: Mdahuri Hector MD on 09/06/2024 16:23:24
[2024-09-06 14:13] VITALS: BP 146/59; PULSE 89; RESP 20; TEMP 36.3; O2SAT 94
--- NOTE | 2024-09-06 14:17 | ECG_ITS ---
Test Reason : sob Blood Pressure : */* mmHG Vent. Rate : 90 BPM Atrial Rate : * BPM P-R Int : * ms QRS Dur : 86 ms QT Int : 382 ms P-R-T Axes : * 270 262 degrees QTcB Int : 467 ms Atrial fibrillation Right superior axis deviation Nonspecific ST and T wave abnormality Abnormal ECG When compared with ECG of 30-Aug-2024 09:27, No significant changes seen Referred By: Isra Avery Electronically Signed By: RUBEN HERNDON
--- NOTE | 2024-09-06 14:19 | ED_ITS ---
HPI - General Adult General Chief complaint: Dyspnea Stated complaint: cough and chest pain Time Seen by Provider: 09/06/24 18:08 Source: patient and family (daughter) Mode of arrival: ambulatory Limitations: no limitations History of Present Illness ED Provider: RAMY FRAIRE PA-C HPI narrative: 79 year old female with pmh significant for chronic hypoxemic respiratory failure due to COPD on home O2 (2L baseline), gastroesophageal reflux disease, hypertension, mood disorder, mixed hyperlipidemia, atrial fibrillation on Eliquis, congestive heart failure with reduced ejection fraction presents to the ED today with her daughter for evaluation of dyspnea on exertion, congested cough productive of yellow sputum, and bilateral feet swelling (R>L). Patient states that she was evaluated for this at our facility approximately 7 days ago. She was diagnosed with RSV. She declined hospitalization at that time and was discharged home with a course of prednisone. Of note, prior to presentation she had completed a course of azithromycin. Since being discharged from our facility, she reports worsening dyspnea and congested cough. She reports that while up ambulating/ completing ADLs she has to stop and sit down to catch her breath. Related Data Home Medications ?Medication ?Instructions ?Recorded ?Confirmed folic acid 1 mg tablet 1 mg PO DAILY 12/06/23 09/06/24 furosemide 40 mg tablet (Lasix) 40 mg PO BID 09/06/24 09/06/24 gabapentin 100 mg capsule 100 mg PO TID PRN Pain 09/07/24 09/07/24 rosuvastatin 5 mg tablet 5 mg PO BEDTIME 09/07/24 09/07/24 trolamine salicylate 10 % topical 1 appl topical DAILY PRN Pain 09/07/24 09/07/24 cream (Aspercreme) Previous Rx's ?Medication ?Instructions ?Recorded apixaban 5 mg tablet (Eliquis) 5 mg PO BID 90 days #180 tabs 12/15/23 levalbuterol HCl 1.25 mg/3 mL 1.25 mg (3 mL) inhalation Q4-6H 01/06/24 solution for nebulization PRN shortness of breath or wheezing 30 days #90 mL compr.stocking,knee,long,small #2 ea 01/08/24 pantoprazole 40 mg tablet,delayed 40 mg PO DAILY 90 days #90 tabs 05/04/24 release levalbuterol tartrate 45 2 puff inhalation Q4-6H PRN 05/19/24 mcg/actuation aerosol inhaler shortness of breath 30 days #15 grams tiotropium bromide 2.5 2 puff inhalation DAILY copd, 30 06/01/24 mcg/actuation mist for inhalation days #4 grams (Spiriva Respimat) cholecalciferol (vitamin D3) 50 50 mcg PO DAILY 90 days #90 caps 06/11/24 mcg (2,000 unit) capsule fluticasone furoate 200 1 inh inhalation DAILY #60 ea 07/06/24 mcg-vilanterol 25 mcg/dose inhalation powder (Breo Ellipta) metoprolol succinate 100 mg 100 mg PO DAILY 90 days #90 tabs 08/05/24 tablet,extended release 24 hr cimetidine 400 mg tablet 400 mg PO BID 30 days #60 tabs 08/24/24 lorazepam 0.5 mg tablet 0.5 mg PO TID PRN anxiety 30 days 08/24/24 #90 tabs Allergies Allergy/AdvReac Type Severity Reaction Status Date / Time Sulfa (Sulfonamide Allergy Intermediate nausea, Verified 09/06/24 14:15 Antibiotics) vomiting Review of Systems 2 Review of Systems: Yes all other systems are reviewed and are negative PMFSH Past Medical History Attestation statement: The following information was validated with the patient. Source: old records reviewed, obtained from family and nursing notes reviewed Medical History Congestive heart failure Atrial fibrillation with rapid ventricular response Congestive heart failure Acute hypoxemic respiratory failure Encounter for cardioversion procedure Atrial fibrillation with RVR Acute exacerbation of congestive heart failure Acute on chronic hypoxic respiratory failure Acute HFrEF (heart failure with reduced ejection fraction) Chronic lung disease Skin lesion Dyslipidemia Cough due to DAISY inhibitor Neck pain GERD (gastroesophageal reflux disease) Aortic regurgitation Right hand pain Leg edema COPD (chronic obstructive pulmonary disease) Allergic rhinitis Anxiety Hypertension Surgical History Carpal tunnel syndrome, right History of bilateral cataract extraction History of partial hysterectomy Family History Family History Father Medical history unknown Mother Medical history unknown Social History Social History Household Members: None Housing: Apartment Do you presently have visiting nurse or other home services: No Alcohol intake: current Alcohol intake frequency: a few times a week Alcohol type: other Patient Tobacco Use Status: Former Tobacco user Tobacco use type: Cigarette e-Cigarette/Vaping Use: Never Used Second Hand Smoke Exposure: No Advance Directives Date on File: 08/25/20 service: No Current occupational status: retired Cognitive needs: No Hearing needs: No Vision needs: No Physical Exam ED Vital Signs: Vital Signs - 24 hr 09/06/24 18:17 09/06/24 18:46 09/06/24 18:47 Temperature 98 F Pulse Rate 80 Respiratory Rate 22 H Blood Pressure 148/74 H 142/79 H Pulse Oximetry 98 90 L Oxygen Delivery Method Nasal Cannula Oxygen Flow Rate 2 09/06/24 20:12 Temperature 97.7 F Pulse Rate 80 Respiratory Rate 18 Blood Pressure 136/67 Pulse Oximetry 90 L Oxygen Delivery Method Nasal Cannula Oxygen Flow Rate 2 BMI result Body Mass Index 20.0 tachypneic, hypertensive General: chronically ill appearing, in NAD Skin: Warm, dry, intact. No rashes or lesions. Head: Normocephalic, atraumatic. EENT: Hearing is intact b/l. Conjunctiva clear. Sclera is anicteric. PERRLA. EOM intact. Moist mucous membranes.? Cardiac: Chest wall symmetric. RRR. Nno jvd. Lungs: Normal respiratory effort without accessory muscle use. diminished breath sounds. No rales, rhonchi, or wheezes.? Abdomen: Soft, non-tender, non-distended. No rebound tenderness or guarding. Positive BS x4. Ext: no pitting edema. no calf tenderness. Neuro: AOx3. Normal speech. Ambulating w/ slow but steady gait Course Course Course Narrative: RME: 79 yold female recent RSV diagnosis presents to the ED for SOB, coughing and incresease swelling of feet. patient denies any calf pain or pleurisy. patient is oxygen depenedent. labs, EKG, and chest xray ordred. lungs negative for wheezing. Reevaluation(s) Reevaluation #1: 8077 -- CBC without leukocytosis or left shift. No anemia. H&H stable. Chemistry showing hypokalemia to 3.2 likely secondary to lasix. will add on magnesium and plan for repletion. No other acute electrolyte abnormalities requiring intervention. BUN slightly elevated to 24 with normal creatinine. Kidney function improved from visit 1 wk ago. Glucose 134. Transaminitis, appears to be around patient's baseline. BNP elevated to 1556 however down trending from 1929 approximately 7 days ago. Troponin elevated to 20.4, delta ordered to r/o ACS although unlikely. troponin elevation likely secondary to demand. negative covid, flu. positive for RSV. EKG showing atrial fibrillation, rate controlled at 90 beats per minute. chest xray without obvious effusion. Medications Administered Generic Name Dose Route Start Last Admin Trade Name Freq PRN Reason Stop Dose Admin Apixaban 5 mg 09/07/24 09:30 09/07/24 20:06 Apixaban 5 Mg Tablet PO 5 mg BID MARIA D Administration Atorvastatin Calcium 20 mg 09/07/24 09:45 09/07/24 10:19 Atorvastatin Calcium 20 Mg Tablet PO 20 mg DAILY MARIA D Administration Famotidine 20 mg 09/07/24 09:30 09/07/24 20:06 Famotidine 20 Mg Tablet PO 20 mg BID MARIA D Administration Fluticasone/Vilanterol 1 puff 09/07/24 09:30 09/07/24 12:12 Fluticasone/Vilanterol 200/25 Blst.W.Dev INHALE Not Given RDAILY MARIA D Folic Acid 1 mg 09/07/24 09:30 09/07/24 10:20 Folic Acid 1 Mg Tablet PO 1 mg DAILY MARIA D Administration Furosemide 40 mg 09/07/24 09:30 09/07/24 20:05 Furosemide 40 Mg Tablet PO 40 mg BID MARIA D Administration Protocol Gabapentin 100 mg 09/07/24 09:30 09/07/24 20:26 Gabapentin 100 Mg Capsule PO Not Given TID MARIA D Levalbuterol HCl 1.25 mg 09/07/24 08:35 09/07/24 14:40 Levalbuterol Hcl 1.25 Mg/3 Ml Vial.Neb INHALE 1.25 mg Q4H PRN Administration shortness of breath or wheezing Lorazepam 0.5 mg 09/07/24 08:35 09/07/24 17:22 Lorazepam 0.5 Mg Tablet PO 0.5 mg TID PRN Administration anxiety Metoprolol Succinate 100 mg 09/07/24 09:30 09/07/24 10:20 Metoprolol Succinate Er 100 Mg Tab.Er.24h PO 100 mg DAILY [facility] Administration Protocol Non-Formulary Medication 40 mg 09/07/24 09:45 09/07/24 11:27 Pantoprazole PO Not Given DAILY@0630 [facility] Prednisone 30 mg 09/07/24 09:00 09/07/24 10:19 Prednisone 10 Mg Tablet PO 30 mg DAILY MARIA D Administration Sodium Chloride 3 ml 09/07/24 00:00 09/07/24 20:11 0.9 % Sodium Chloride Flush 3 Ml Syringe IVFLUSH 3 ml QSHIFT [facility] Administration Tiotropium [place] 2 puff 09/07/24 09:30 09/07/24 12:12 Tiotropium [place] 2.5 Mcg 1 Puff/2.5 Mcg Mist.Inhal INHALE Not Given RDAILY [facility] Vitamin D 50 mcg 09/07/24 09:30 09/07/24 10:19 Cholecalciferol (Vitamin D3) 25 Mcg Tablet PO 50 mcg DAILY [facility] Administration Discontinued Medications Generic Name Dose Route Start Last Admin Trade Name Zechariahq PRN Reason Stop Dose Admin Furosemide 80 mg 09/06/24 18:25 09/06/24 18:47 Furosemide 100 Mg/10 Ml Vial IVPUSH 09/06/24 18:26 80 mg ONCE ONE Administration Protocol Potassium Chloride 10 meq in 100 mls @ 100 mls/hr 09/06/24 18:30 09/06/24 22:03 Potassium Chloride/H20 IV 09/06/24 20:29 Infused Q1H MARIA D Infusion Magnesium Sulfate 2 gm in 50 mls @ 150 mls/hr 09/06/24 18:47 09/06/24 21:01 Magnesium Sulfate/H2o IV 09/06/24 19:06 Infused ONCE ONE Infusion Lorazepam 0.5 mg 09/06/24 20:01 09/06/24 20:17 Lorazepam 0.5 Mg Tablet PO 09/06/24 20:02 0.5 mg ONCE ONE Administration Medical Decision Making Medical Decision Making MDM Narrative: 79 year old female with pmh significant for chronic hypoxemic respiratory failure due to COPD on home O2 (2L baseline), gastroesophageal reflux disease, hypertension, mood disorder, mixed hyperlipidemia, atrial fibrillation on Eliquis, congestive heart failure with reduced ejection fraction presents to the ED today with her daughter for evaluation of dyspnea on exertion, congested cough, and bilateral feet swelling (R>L). Differential Diagnosis Differential Diagnoses: The differential diagnosis associated with the presentation includes As above Admission/Observation Consideration of admission/observation: Escalation of care including admission/observation considered Consult Healthcare Provider Management of the patient was discussed with: Hospitalist Lab Data MDM Lab Attestation statement: I reviewed the patient's lab results. As above 09/07/24 05:51 09/07/24 05:51 Labs: Lab Results 09/06/24 09/06/24 Range/Units 14:43 18:27 WBC 9.0 (4.8-10.8) X10*3/uL RBC 4.28 (4.20-5.50) X10*6/uL Hgb 12.1 (12.0-16.0) g/dl Hct 37.8 (37.0-47.0) % MCV 88.3 (80.0-98.0) fL MCH 28.3 (27.0-33.0) pg MCHC 32.0 (31.0-35.0) g/dl RDW 15.1 (11.0-16.0) % Plt Count 250 D (160-400) X10*3/uL MPV 9.3 L (9.4-12.3) fL Immature Gran % (Auto) 0.7 H (0.0-0.4) % Neut % (Auto) 72.4 (45-73) % Lymph % (Auto) 18.5 L (20-40) % [place] % (Auto) 7.4 (2-11) % Eos % (Auto) 0.9 (0-4) % Baso % (Auto) 0.1 (0-2) % Lymph # (Auto) 1.7 (1.2-4.9) X10*3/uL [place] # (Auto) 0.7 (0.1-1.2) X10*3/uL Eos # (Auto) 0.1 (0.0-0.4) X10*3/uL Baso # (Auto) 0.0 (0.0-0.2) X10*3/uL Abs Immat Gran (auto) 0.06 H (0.00-0.03) X10*3/uL Absolute Neuts (auto) 6.5 (2.0-8.3) x10*3/uL Absolute Nucleated RBC 0.030 H (0.0-0.012) X10*3/uL Nucleated RBC % (auto) 0.3 H (0.0-0.2) /100WBC PT 18.9 H (10.9-12.4) SEC INR 1.6 H (0.9-1.1) APTT 30.9 (26.0-36.8) SEC Sodium 141 (135-145) mmol/L Potassium 3.2 L (3.3-5.1) mmol/L Chloride 98 (96-108) mmol/L Carbon Dioxide 31 H (22-29) mmol/L Anion Gap 15 (12-20) BUN 24 H (9-16) mg/dL Creatinine 1.08 (0.5-1.4) mg/dL Estim Creat Clear Calc 33.6 Estimated GFR 49 Random Glucose 134 H (60-115) mg/dL Calcium 8.9 (8.4-10.2) mg/dL Magnesium 1.7 (1.6-2.6) mg/dL Total Bilirubin 1.1 H (0.0-1.0) mg/dL AST 43 H (5-31) U/L ALT 38 H (0-31) U/L Alkaline Phosphatase 153 H (39-117) U/L Troponin I High Sens 20.4 H 25.0 H (<3.5-17.0) ng/L B-Natriuretic Peptide 1556 H (<100) pg/mL Total Protein 6.7 (6.5-8.0) g/dL Albumin 3.8 (3.5-5.0) g/dL Influenza Type A (PCR) NEGATIVE (Negative) Influenza Type B (PCR) NEGATIVE (Negative) RSV RNA Qual (PCR) POSITIVE A (Negative) SARS-CoV-2 RNA (RT-PCR) NEGATIVE (Negative) Independent Interpretation I performed an independent interpretation of an: EKG and Plain X-Ray Interpretation: EKG showing atrial fibrillation with a rate of 90 beats per minute CXR without focal consolidation or infiltrate, no effusion Radiology Impression Discussion of test interpretation with radiology: I have reviewed the radiologist's reading. Radiologist Impression: Procedure(s): XR chest 1V Accession Number(s): [id number] cc: Isra Avery; Sonido Mcdermott MD~ CLINICAL HISTORY: SOB, CHest pain, cough 1 view chest x-ray Comparison: CR - XR CHEST 2V - 08/30/24 08:54 EST Findings: There is prominence of interstitial markings within the bilateral lungs, most likely chronic. No consolidative process. Normal size heart. No acute fracture. IMPRESSION: 1. No acute findings. This document has been electronically signed by: Madhuri Hector MD on 09/06/2024 16:23:24 Independent Historian Clinical information obtained from an independent historian. History obtained from or confirmed by: Other (daughter) External Record Review External record reviewed: Inpatient record, Office record, Outpatient record, Prior outpatient labs, Prior outpatient radiology, Primary care record and Outside ED record Chronic Conditions Patient?s care impacted by: Other (COPD, afib) Social Determinants Patient?s care significantly limited by Social Determinants of Health including: Other Social Determinant of Health Critical Care Time Critical Care Time Critical Care Time: No Discharge Plan Discharge Clinical Impression: Respiratory syncytial virus (RSV), CHF (congestive heart failure), COPD exacerbation Patient Disposition: Admitted As Inpatient Interventions: Admission Worksheet (ED) Last Done: 09/07/24 09:48 Discharge Date/Time: 09/07/24 10:31
[2024-09-06 14:49] LABS: MANUAL DIFF FLAG NO
[2024-09-06 14:51] LABS: Basophils Percent Auto 0.1 % (0-2); Eosinophils Absolute Auto 0.1 X10*3/uL (0.0-0.4); Eosinophils Percent Auto 0.9 % (0-4); Hematocrit 37.8 % (37.0-47.0); Hemoglobin 12.1 g/dl (12.0-16.0); Imm Gran Abs Auto 0.06 X10*3/uL (0.00-0.03); Imm Gran Pct Auto 0.7 % (0.0-0.4); Lymphocytes Absolute Auto 1.7 X10*3/uL (1.2-4.9); Lymphocytes Percent Auto 18.5 % (20-40); Mean Corpuscular Hemoglobin 28.3 pg (27.0-33.0); Mean Corpuscular Volume 88.3 fL (80.0-98.0); Mean Platelet Volume 9.3 fL (9.4-12.3); Monocytes Absolute Auto 0.7 X10*3/uL (0.1-1.2); Monocytes Percent Auto 7.4 % (2-11); NRBC Pct Auto 0.3 /100WBC (0.0-0.2); Neutrophils Absolute Auto 6.5 x10*3/uL (2.0-8.3); Neutrophils Percent Auto 72.4 % (45-73); Platelet Count 250 X10*3/uL (160-400); Red Blood Count 4.28 X10*6/uL (4.20-5.50); Red Cell Distribution Width 15.1 % (11.0-16.0)
[2024-09-06 14:57] LABS: INTERNATIONAL NORM RATIO 1.6 (0.9-1.1); Prothrombin Time 18.9 SEC (10.9-12.4)
[2024-09-06 14:59] LABS: Partial Thromboplastin Time 30.9 SEC (26.0-36.8)
[2024-09-06 15:04] LABS: Alanine Aminotransferase 38 U/L (0-31); Albumin Level 3.8 g/dL (3.5-5.0); Alkaline Phosphatase 153 U/L (39-117); Anion Gap 15 (12-20); Aspartate Amino Transferase 43 U/L (5-31); Bilirubin Total 1.1 mg/dL (0.0-1.0); Blood Urea Nitrogen 24 mg/dL (9-16); Calcium 8.9 mg/dL (8.4-10.2); Carbon Dioxide 31 mmol/L (22-29); Chloride 98 mmol/L (96-108); Creatinine Clr Calc Pharmacy 33.6; Estimated Glomerular Filt Rate 49; Glucose Random 134 mg/dL (60-115); Potassium 3.2 mmol/L (3.3-5.1); Sodium 141 mmol/L (135-145); Total Protein 6.7 g/dL (6.5-8.0)
[2024-09-06 15:09] LABS: Troponin-I High Sensitivity 20.4 ng/L (<3.5-17.0)
[2024-09-06 15:10] LABS: B Type Natriuretic Peptide 1556 pg/mL (<100)
[2024-09-06 15:27] LABS: Influenza A PCR NEGATIVE (Negative); Influenza B PCR NEGATIVE (Negative); Resp Syncy Virus RNA Qual PCR POSITIVE (Negative); SARS COV2 PCR INHOUSE NEGATIVE (Negative)
[2024-09-06 18:17] VITALS: BP 148/74; PULSE 80; RESP 22; TEMP 36.6; O2SAT 98
[2024-09-06 18:33] LABS: Magnesium 1.7 mg/dL (1.6-2.6)
[2024-09-06 18:46] VITALS: O2SAT 90
--- NOTE | 2024-09-06 18:46 | PC.NURSE ---
90% on 2 l 02 via NC with ambulation patient visibly short of breath and reporting feeling dizzy
[2024-09-06 18:47] VITALS: BP 142/79
[2024-09-06] MEDS: Furosemide 100 MG/10 ML VIAL 80 MG IVPUSH (18:47)
[2024-09-06] MEDS: Potassium Chloride/H20 10 MEQ/100 ML PIGGYBACK 100 MEQ IV ×2 (18:55→20:32)
--- OUTSIDE RECORDS SUMMARY | 2024-09-06 19:00 | XMS_ITS ---
Author Organization [facility] Address [address] [place] [address] Care Team Providers Care Diabetes Specialist Name Role Phone Bonilla BURGOS, Parul Primary Care Provider Unavail Renuka Majano Unavailable [phone] REASON FOR VISIT [employer] [facility] Entered Encounters Encounter Location Date Provider Diagnosis [address] [address] 08/24/2024 Renuka Loja Plan Of Treatment Next Appt Details Provider Name:Renuka dunn, 10/27/2024 10:30:00 AM, [address] [place], [address], Progress Notes * Yasmeen PAULSONDOB:1945 (7 0 yo F)Acc No.[id number]:08/24/2024 Patient:?Yasmeen PAULSON :1945???Age:79 Y???Sex:Female Address:[address] [place] [address], [place] [address] * true * Date:? Generated for Printi ng/Faroeg/eTransmitting on:?09/06/2024 07:00 PM EDT
[2024-09-06] MEDS: Magnesium Sulfate/H2O 2 GM/50 ML PIGGYBACK IV (19:11)
[2024-09-06 20:12] VITALS: BP 136/67; PULSE 80; RESP 18; TEMP 36.5; O2SAT 90
[2024-09-06] MEDS: LORazepam 0.5 MG TABLET PO (20:17)
--- NOTE | 2024-09-06 20:49 | P.HPHOSP_ITS ---
History of Present Illness Date of Service: 09/06/24 Attending physician on admission: Epifanio Gonzalez Chief Complaint: Shortness of breath Patient is an 79 year old pleasant white female with history of chronic hypoxic respiratory failure due to COPD currently on 2 L of home oxygen, GERD, hypertension, mood disorder, hyperlipidemia, diastolic CHF, atrial fibrillation on Eliquis, however if who presents to emergency room from home complaining of persistent shortness of breath since 1 week ago. She was seen in the emergency room a week ago complaining of shortness of breath and was diagnosed with RSV infection but declined hospitalization at the time preferring to go home. She was discharged on oral prednisone which she has been taking without any significant improvement in her condition. She also increased her home dose of Lasix from 80 mg daily to 120 mg daily as she had noted worsening lower extremity edema. She now reports worsening symptoms with associated cough productive of green phlegm and congestion. Her bilateral lower extremity edema has somewhat improved. She denies any associated orthopnea, PND, fevers, chills, or night sweats. Initial tests done in the ED were notable for a positive RSV PCR test, EKG showing atrial fibrillation with a controlled ventricular response rate while blood work and plain chest x-ray done were unrevealing except for elevated BNP at 1556. . An assessment CHF exacerbation likely complicated with a an element of COPD exacerbation was made and she received IV Lasix following each admission was requested. When I got to see her she was comfortable in bed and did not endorse any additional complaints. Review of Systems 2 Review of Systems: Yes all other systems are reviewed and are negative [facility] Medical History (Updated 09/06/24 @ 22:18 by Epifanio Gonzalez MD) Congestive heart failure Atrial fibrillation with rapid ventricular response Congestive heart failure Acute hypoxemic respiratory failure Encounter for cardioversion procedure Atrial fibrillation with RVR Acute exacerbation of congestive heart failure Acute on chronic hypoxic respiratory failure Acute HFrEF (heart failure with reduced ejection fraction) Chronic lung disease Skin lesion Dyslipidemia Cough due to DAISY inhibitor Neck pain GERD (gastroesophageal reflux disease) Aortic regurgitation Right hand pain Leg edema COPD (chronic obstructive pulmonary disease) Allergic rhinitis Anxiety Hypertension Functional capacity: independent ambulation Patient : No Family History Father Medical history unknown Mother Medical history unknown Surgical History Carpal tunnel syndrome, right History of bilateral cataract extraction History of partial hysterectomy Social History Household Members: None and Other Housing: House Do you presently have visiting nurse or other home services: No Alcohol intake: current Alcohol intake frequency: a few times a week Alcohol type: other Patient Tobacco Use Status: Former Tobacco user Tobacco use type: Cigarette Smoked in Last 30 Days: No e-Cigarette/Vaping Use: Never Used Second Hand Smoke Exposure: No Use of substances other than those prescribed or required for medical reasons: No Advance Directives: No Advance Directives Information Provided: Yes Advance Directives Date on File: 08/25/20 Do you have a plan to hurt others: No Plan Patient : No service: No Current occupational status: retired Cognitive needs: No Hearing needs: No Vision needs: No Meds Allergies Allergy/AdvReac Type Severity Reaction Status Date / Time Sulfa (Sulfonamide Allergy Intermediate nausea, Verified 09/06/24 14:15 Antibiotics) vomiting Home Medications ?Medication ?Instructions ?Recorded ?Confirmed ?Last Taken ?Type folic acid 1 mg tablet 1 mg PO DAILY 12/06/23 09/06/24 09/05/24 History furosemide 40 mg tablet (Lasix) 40 mg PO BID 09/06/24 09/06/24 09/06/24 History Physical Exam 2 Vital Signs and Narrative: Vital Signs: Last Vital Signs Temp 97.7 F 09/06/24 20:12 Pulse 80 09/06/24 20:12 Resp 18 09/06/24 20:12 BP 136/67 09/06/24 20:12 Pulse Ox 90 L 09/06/24 20:12 O2 Del Method Nasal Cannula 09/06/24 20:12 O2 Flow Rate 2 09/06/24 20:12 Oxygen Flow Rate 2 09/06/24 14:13 BMI result Body Mass Index 20.0 General: Well nourished. Awake, alert and oriented x 4. No apparent distress Eyes: No pallor or jaundice. PERRLA, EOMI HENT: Moist oral mucus membranes. No oropharyngeal lesions. Neck: Supple. No cervical adenopathy. No JVD Cardiovascular: Irregularly irregular. Normal heart sounds. No murmurs, rubs or gallops. No JVD. No peripheral edema. Respiratory: Normal respiratory effort with no accessory muscle use. Good breath sounds. No wheezes or rales appreciated. Gastrointestinal: Abdomen is soft, non-tender, non-distended. Normoactive bowel sounds in all quadrants. No hepatosplenomegaly Extremities: No edema. No calf tenderness. Good peripheral pulses Skin - Warm/Dry. No rashes. No mottling. Capillary refill is < 2 seconds Neurological - AAOx4. Intact speech & cognition. Normal gait & balance. CN II - XII grossly intact but not individually tested. No motor or sensory deficits Hematologic: No bleeding. No ecchymosis. No swollen or tender lymph nodes. Psychiatric: Cooperative. Appropriate mood and affect. Results Labs 09/06/24 14:43 09/06/24 14:43 Labs: Laboratory Results - last 24 hr 09/06/24 14:43 MCV 88.3 MCH 28.3 MCHC 32.0 RDW 15.1 Plt Count 250 D MPV 9.3 L Immature Gran % (Auto) 0.7 H Neut % (Auto) 72.4 Lymph % (Auto) 18.5 L [place] % (Auto) 7.4 Eos % (Auto) 0.9 Baso % (Auto) 0.1 Lymph # (Auto) 1.7 [place] # (Auto) 0.7 Eos # (Auto) 0.1 Baso # (Auto) 0.0 Abs Immat Gran (auto) 0.06 H Absolute Neuts (auto) 6.5 Absolute Nucleated RBC 0.030 H Nucleated RBC % (auto) 0.3 H PT 18.9 H INR 1.6 H APTT 30.9 Anion Gap 15 Estim Creat Clear Calc 33.6 Estimated GFR 49 Random Glucose 134 H Calcium 8.9 Magnesium 1.7 Total Bilirubin 1.1 H AST 43 H ALT 38 H Alkaline Phosphatase 153 H B-Natriuretic Peptide 1556 H Total Protein 6.7 Albumin 3.8 Influenza Type A (PCR) NEGATIVE Influenza Type B (PCR) NEGATIVE RSV RNA Qual (PCR) POSITIVE A SARS-CoV-2 RNA (RT-PCR) NEGATIVE Imaging Radiologist's Impressions: Chest x-ray : Clear Assessment and Plan (1) Acute on chronic diastolic (congestive) heart failure: Status: Acute (2) COPD exacerbation: Status: Acute (3) Respiratory syncytial virus (RSV): Qualifiers: RSV infection type: acute bronchitis Qualified Code(s): J20.5 - Acute bronchitis due to respiratory syncytial virus Status: Acute (4) Viral bronchitis: Status: Acute (5) Exertional dyspnea: Status: Acute (6) PAF (paroxysmal atrial fibrillation): Status: Acute (7) CHF (congestive heart failure): Qualifiers: Heart failure type: unspecified Status: Acute Plan 79 year old pleasant white female with history of chronic hypoxic respiratory failure due to COPD currently on 2 L of home oxygen, 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 -will manage symptomatically for both CHF & COPD exacerbation with a scheduled Lasix, DuoNebs and steroids -resume Tiotropium -continue supplemental oxygen -reassess in the morning # RSV infection # acute bronchitis -she tested positive for RSV on a PCR test -also reports an associated productive cough -likely with a viral bronchitis -manage symptomatically # paroxysmal atrial fibrillation -asymptomatic and rate controlled -resume metoprolol succinate and Eliquis # hyperlipidemia -resume rosuvastatin DVT: On Eliquis CODE STATUS: Full code Admission for at least 2 midnights for management of CHF & COPD exacerbation This note is constructed using voice recognition software. While every effort has been made to ensure accuracy, equipment operating engineer errors may have been included. Total time managing care of this patient today: 75 minutes. Quality Stroke Does the patient have a stroke diagnosis?: No VTE Prior VTE?: No VTE Risk Level:: Medical - moderate - high VTE Device Contraindication: N/A - Device Ordered VTE Drug Contraindication: N/A - Med Ordered
[2024-09-06 23:54] VITALS: BP 117/56; PULSE 85; RESP 18; TEMP 36.5; O2SAT 99
[2024-09-07] VITALS (8 sets, daily range): BP systolic 134–154; BP diastolic 59–67; PULSE 85–103; RESP 15–20; TEMP 36.4–37.3; O2SAT 91–99
[2024-09-07] MEDS: 0.9 % Sodium Chloride Flush 3 ML SYRINGE IVFLUSH ×3 (00:07→20:11)
[2024-09-07 06:25] LABS: MANUAL DIFF FLAG NO
[2024-09-07 06:46] LABS: Anion Gap 15 (12-20); Basophils Percent Auto 0.2 % (0-2); Blood Urea Nitrogen 20 mg/dL (9-16); Calcium 9.1 mg/dL (8.4-10.2); Carbon Dioxide 32 mmol/L (22-29); Chloride 98 mmol/L (96-108); Creatinine Clr Calc Pharmacy 45.3; Eosinophils Absolute Auto 0.1 X10*3/uL (0.0-0.4); Estimated Glomerular Filt Rate > 60; Glucose Random 116 mg/dL (60-115); Hematocrit 37.3 % (37.0-47.0); Imm Gran Abs Auto 0.08 X10*3/uL (0.00-0.03); Imm Gran Pct Auto 0.7 % (0.0-0.4); Lymphocytes Absolute Auto 1.5 X10*3/uL (1.2-4.9); Magnesium 1.9 mg/dL (1.6-2.6); Mean Corpuscular HGB Conc 32.2 g/dl (31.0-35.0); Mean Corpuscular Hemoglobin 28.3 pg (27.0-33.0); Mean Platelet Volume 9.9 fL (9.4-12.3); Monocytes Absolute Auto 0.9 X10*3/uL (0.1-1.2); Monocytes Percent Auto 7.8 % (2-11); NRBC Pct Auto 0.2 /100WBC (0.0-0.2); Neutrophils Absolute Auto 8.3 x10*3/uL (2.0-8.3); Neutrophils Percent Auto 76.3 % (45-73); Platelet Count 246 X10*3/uL (160-400); Potassium 3.3 mmol/L (3.3-5.1); Red Blood Count 4.24 X10*6/uL (4.20-5.50); Red Cell Distribution Width 15.1 % (11.0-16.0); Sodium 142 mmol/L (135-145); White Blood Count 10.9 X10*3/uL (4.8-10.8)
[2024-09-07 07:01] LABS: Thyroid Stimulating Hormone 1.71 uIU/mL (0.32-4.0)
--- NOTE | 2024-09-07 08:29 | P.PNIM_ITS ---
Subjective Subjective Date of Service: 09/07/24 Interval History: f/u on copd exacerbation, acute dyspnea still feeling sob, Physical Exam 2 Vital Signs: Vital Signs: Last Vital Signs Temp 97.9 F 09/07/24 06:18 Pulse 93 09/07/24 06:18 Resp 20 09/07/24 06:18 BP 134/59 L 09/07/24 06:18 Pulse Ox 94 09/07/24 06:18 O2 Del Method Nasal Cannula 09/07/24 06:18 O2 Flow Rate 2 09/07/24 06:18 Oxygen Flow Rate 2 09/06/24 14:13 BMI result Body Mass Index 20.0 Const: Other: General: AO X 3, no acute distress Resp: mild wheeze CVS: S1,S2,RRR GI: +BS, NT, no distention Skin: No rash Neuro: motor grossly intact Psych: appropriate affect Objective Data Active Medications Acetaminophen (Acetaminophen 325 Mg Tablet) 650 mg PO Q6H PRN PRN Reason: Pain, Mild 1-3,fever,headache Calcium Carbonate (Calcium Carbonate 750 Mg Tab.Chew) 750 mg PO Q4H PRN PRN Reason: Heartburn Magnesium Hydroxide (Milk Of Magnesia 30 Ml Oral.Susp) 30 ml PO DAILY PRN PRN Reason: Constipation Melatonin (Melatonin 3 Mg Tablet) 6 mg PO BEDTIME PRN PRN Reason: Insomnia Ondansetron HCl (Ondansetron Hcl 4 Mg/2 Ml Vial) 4 mg IVPUSH Q8H PRN PRN Reason: Nausea and Vomiting Polyethylene Glycol (Polyethylene Glycol 3350 17 Gm Powd.Pack) 17 gm PO DAILY PRN PRN Reason: Constipation Senna (Sennosides 8.6 Mg Tablet) 17.2 mg PO BEDTIME PRN PRN Reason: Constipation Sodium Chloride (0.9 % Sodium Chloride Flush 3 Ml Syringe) 3 ml IVFLUSH QSHIFT [facility] Last Admin: 09/07/24 07:19 Dose: Not Given Documented By: BREANA Non-Admin Reason: Previously Administered Labs 09/07/24 05:51 09/07/24 05:51 Labs: Laboratory Results - last 24 hr 09/06/24 09/07/24 14:43 05:51 MCV 88.3 88.0 MCH 28.3 28.3 MCHC 32.0 32.2 RDW 15.1 15.1 Plt Count 250 D 246 MPV 9.3 L 9.9 Immature Gran % (Auto) 0.7 H 0.7 H Neut % (Auto) 72.4 76.3 H Lymph % (Auto) 18.5 L 14.0 L Lipscomb % (Auto) 7.4 7.8 Eos % (Auto) 0.9 1.0 Baso % (Auto) 0.1 0.2 Lymph # (Auto) 1.7 1.5 Lipscomb # (Auto) 0.7 0.9 Eos # (Auto) 0.1 0.1 Baso # (Auto) 0.0 0.0 Abs Immat Gran (auto) 0.06 H 0.08 H Absolute Neuts (auto) 6.5 8.3 Absolute Nucleated RBC 0.030 H 0.020 H Nucleated RBC % (auto) 0.3 H 0.2 PT 18.9 H INR 1.6 H APTT 30.9 Anion Gap 15 15 Estim Creat Clear Calc 33.6 45.3 Estimated GFR 49 > 60 Random Glucose 134 H 116 H Calcium 8.9 9.1 Magnesium 1.7 1.9 Total Bilirubin 1.1 H AST 43 H ALT 38 H Alkaline Phosphatase 153 H B-Natriuretic Peptide 1556 H Total Protein 6.7 Albumin 3.8 TSH 1.71 Influenza Type A (PCR) NEGATIVE Influenza Type B (PCR) NEGATIVE RSV RNA Qual (PCR) POSITIVE A SARS-CoV-2 RNA (RT-PCR) NEGATIVE Assessment and Plan (1) CHF (congestive heart failure): Status: Acute (2) PAF (paroxysmal atrial fibrillation): Status: Acute (3) Acute on chronic diastolic (congestive) heart failure: Status: Acute Plan 79 female with a history of chronic hypoxic respiratory failure due to COPD currently on 2L of home oxygen, CHRISTIAN, hypertension, mood disorder, hyperlipidemia, and atrial fibrillation on Eliquis here with: Acute dyspnea d/ t hfpef, cope exacerbation and rsve O2 to keep sat 88 to 92 treat underlying conditions Acute HFpEF BNP is elvated but this is chronic clinically appear euvolemic continue baseline home lasix dose of 40 bid COPD exacerbation bronchodilators add Prednisone for 5 days supplemental O2, goal of 88 to 92 RSV infection Acute viral bronchitis symptomatic treatment Paroxysmal atrial fibrillation metoprolol for rate control eliquis for stroke prevention Hyperlipidemia statin DVT: On Eliquis CODE STATUS: Full code Admission for at least 2 midnights for management of CHF & COPD exacerbation Quality Stroke Does the patient have a stroke diagnosis?: No VTE Prior VTE?: No VTE Risk Level:: Medical - moderate - high VTE Device Contraindication: N/A - Device Ordered VTE Drug Contraindication: N/A - Med Ordered
--- NOTE | 2024-09-07 09:13 | PHA.MEDREC ---
Addendum entered by Dennise Thomas RPh 09/07/24 09:24: Reviewed by [facility] Original Note: Pharmacy Consult ? Medication Reconciliation Pharmacy has reviewed the medication reconciliation done by nursing. Spoke to patient to confirm med list. Patiet states she is not taking Farxiga 5 mg and Fluticasone prop ceram.
[2024-09-07] MEDS: levalbuterol HCL 1.25 MG/3 ML VIAL.NEB INHALE ×2 (10:03→14:40)
[2024-09-07] MEDS: Cholecalciferol (Vitamin D3) 25 MCG TABLET 50 MCG PO (10:19)
[2024-09-07] MEDS: Atorvastatin Calcium 20 MG TABLET PO (10:19)
[2024-09-07] MEDS: Famotidine 20 MG TABLET PO ×2 (10:19→20:06)
[2024-09-07] MEDS: predniSONE 10 MG TABLET 30 MG PO (10:19)
[2024-09-07] MEDS: Metoprolol Succinate ER 100 MG TAB.ER.24H PO (10:20)
[2024-09-07] MEDS: Folic Acid 1 MG TABLET PO (10:20)
[2024-09-07] MEDS: Gabapentin 100 MG CAPSULE PO ×2 (10:20→14:38)
[2024-09-07] MEDS: Apixaban 5 MG TABLET PO ×2 (10:20→20:06)
[2024-09-07] MEDS: Furosemide 40 MG TABLET PO ×2 (10:20→20:05)
--- NOTE | 2024-09-07 16:22 | MHC.CM.PN ---
PT REPORTS SHE LIVES ALONE AND IS INDEPENDENT SHE HAS A NEBULIZER FOR DME AND NO SERVICES COPY OF HCP REQUESTED PCP: MEIR CHAPA IMM DELIVERED DCP: HOME NO SERVICES VIA PRIVATE TRANSPORT
[2024-09-07] MEDS: LORazepam 0.5 MG TABLET PO (17:22)
[2024-09-08] VITALS (7 sets, daily range): BP systolic 131–142; BP diastolic 58–63; PULSE 73–101; RESP 16–18; TEMP 36.4–37.7; O2SAT 85–98
[2024-09-08] MEDS: Fluticasone/Vilanterol 200/25 BLST.W.DEV 1 PUFF INHALE (07:48)
[2024-09-08] MEDS: levalbuterol HCL 1.25 MG/3 ML VIAL.NEB INHALE (07:48)
[2024-09-08] MEDS: Tiotropium Bromide 2.5 mcg 1 PUFF/2.5 MCG MIST.INHAL 2 PUFF INHALE (07:49)
[2024-09-08] MEDS: Metoprolol Succinate ER 100 MG TAB.ER.24H PO (08:18)
[2024-09-08] MEDS: Famotidine 20 MG TABLET PO (08:18)
[2024-09-08] MEDS: Apixaban 5 MG TABLET PO (08:18)
[2024-09-08] MEDS: Furosemide 40 MG TABLET PO (08:19)
[2024-09-08] MEDS: Gabapentin 100 MG CAPSULE PO ×2 (08:20→15:25)
[2024-09-08] MEDS: Folic Acid 1 MG TABLET PO (08:20)
[2024-09-08] MEDS: Atorvastatin Calcium 20 MG TABLET PO (08:20)
[2024-09-08] MEDS: Cholecalciferol (Vitamin D3) 25 MCG TABLET 50 MCG PO (08:20)
[2024-09-08] MEDS: predniSONE 10 MG TABLET 30 MG PO (08:20)
[2024-09-08] MEDS: PANTOPRAZOLE 40 MG 40 EACH PO (09:18)
--- NOTE | 2024-09-08 10:16 | P.DS_ITS ---
DS: Providers Provider Date of Service: 09/08/24 Date of admission: 09/06/24 20:39 Date of discharge: 09/08/24 Primary care physician: Parul Williamson MD DS: Diagnosis Discharge Diagnosis (1) CHF (congestive heart failure): Status: Acute (2) PAF (paroxysmal atrial fibrillation): Status: Acute (3) Acute on chronic diastolic (congestive) heart failure: Status: Acute DS: Summary Hospital Course Hospital Course: admission hpi Chief Complaint: Shortness of breath Patient is an 79 year old pleasant white female with history of chronic hypoxic respiratory failure due to COPD currently on 2 L of home oxygen, GERD, hypertension, mood disorder, hyperlipidemia, diastolic CHF, atrial fibrillation on Eliquis, however if who presents to emergency room from home complaining of persistent shortness of breath since 1 week ago. She was seen in the emergency room a week ago complaining of shortness of breath and was diagnosed with RSV infection but declined hospitalization at the time preferring to go home. She was discharged on oral prednisone which she has been taking without any significant improvement in her condition. She also increased her home dose of Lasix from 80 mg daily to 120 mg daily as she had noted worsening lower extremity edema. She now reports worsening symptoms with associated cough productive of green phlegm and congestion. Her bilateral lower extremity edema has somewhat improved. She denies any associated orthopnea, PND, fevers, chills, or night sweats. Initial tests done in the ED were notable for a positive RSV PCR test, EKG showing atrial fibrillation with a controlled ventricular response rate while blood work and plain chest x-ray done were unrevealing except for elevated BNP at 1556. . An assessment CHF exacerbation likely complicated with a an element of COPD exacerbation was made and she received IV Lasix following each admission was requested. When I got to see her she was comfortable in bed and did not endorse any additional complaints. Hospital course: The patient has a history of COPD and is on home oxygen, though she reports using it only during sleep. She tested positive for RSV on August 30 and presented with shortness of breath. A chest X-ray showed no acute findings. BNP was elevated but consistent with her chronic baseline. Although she was not cl inically in fluid overload, she received IV Lasix in the ED. RSV remains positive, and she had some wheezing on examination. She was treated with prednisone and inhalers and continued on oxygen therapy. A home oxygen evaluation was conducted, and she was recommended to use oxygen at 2L during both the day and night. She will be transitioned to oral steroids to complete a total of 5 days of treatment. Time Attestation Discharge Coordination Time (in mins): 40 Quality: Safe Use of Opioids Does Pt have an Active Cancer Diagnosis on the Problem List?: No Quality: Stroke Does the patient have a stroke diagnosis?: No Physical Exam Vital Signs: Vital Signs: Last Vital Signs Temp 98.6 F 09/08/24 08:00 Pulse 88 09/08/24 08:18 Resp 16 09/08/24 08:00 BP 140/63 H 09/08/24 08:19 Pulse Ox 97 09/08/24 08:00 O2 Del Method Room Air 09/08/24 08:00 O2 Flow Rate 2 09/08/24 03:57 Oxygen Flow Rate 2 09/06/24 14:13 BMI result Body Mass Index 20.0 Const: Other: General: AO X 3, no acute distress Resp: CTA bilateral CVS: S1,S2,RRR GI: +BS, NT, no distention Skin: No rash Neuro: motor grossly intact Psych: appropriate affect Discharge Plan Discharge Anticipated Discharge Date/Time: 09/08/24 10:16 Patient Disposition: Home, Self-Care Discharge Diagnosis: RSV, CHF, COPD exacerbation Referrals: Parul Cartagena MD [Primary Care Provider] - 1 Week Discharge Medications: New prednisone 10 mg Tablet 30 mg PO DAILY Qty: 9 0RF Continued Eliquis 5 mg tablet 5 mg PO BID 90 Days Qty: 180 1RF Spiriva Respimat 2.5 mcg/actuation mist 2 puff inhalation DAILY 30 Days Qty: 4 5RF Rx Instructions: cannot use SPIRIVS HANDI_HALOR cholecalciferol (vitamin D3) 50 mcg (2,000 unit) capsule 50 mcg PO DAILY 90 Days Qty: 90 1RF fluticasone furoate-vilanterol [Breo Ellipta] 200-25 mcg/dose blister with device 1 inh inhalation DAILY Qty: 60 2RF metoprolol succinate 100 mg tablet extended release 24 hr 100 mg PO DAILY 90 Days Qty: 90 1RF cimetidine 400 mg tablet 400 mg PO BID 30 Days Qty: 60 0RF Rx Instructions: administer with meals lorazepam 0.5 mg tablet 0.5 mg PO TID PRN (Reason: anxiety) 30 Days Qty: 90 0RF folic acid 1 mg Tablet 1 mg PO DAILY furosemide [Lasix] 40 mg tablet 40 mg PO BID Rx Instructions: dose increase rosuvastatin 5 mg tablet 5 mg PO BEDTIME gabapentin 100 mg capsule 100 mg PO TID PRN (Reason: Pain) trolamine salicylate [Aspercreme] 10 % Cream 1 appl TOPICAL DAILY PRN (Reason: Pain) levalbuterol HCl 1.25 mg/3 mL solution for nebulization 1.25 mg inhalation Q4-6H PRN (Reason: shortness of breath or wheezing) 30 Days Qty: 90 3RF pantoprazole 40 mg tablet,delayed release (DR/EC) 40 mg PO DAILY 90 Days Qty: 90 1RF (DME) compr.stocking,knee,long,small Misc See Rx Instructions .Route Qty: 2 1RF Rx Instructions: As directed levalbuterol tartrate 45 mcg/actuation HFA aerosol inhaler 2 puff inhalation Q4-6H PRN (Reason: shortness of breath) 30 Days Qty: 15 3RF Discharge Orders: Discharge Order (Routine); Ordered 09/08/24 Ordered By: Agustin Samano Diet: Advance to usual diet Activity on Discharge: As tolerated Stand Alone Forms: Patient Portal Discharge page Print Language: Japanese Care Plan Goals: recovery from Health Concerns: recovery from copd exacerbation Plan of Treatment: copd chronic heart failure chronic need for oxygen Assessment: take prednisone as directed use inhalers as directed Use oxygen as directed, 2 liters at all times follow up with your doctor in a week
[2024-09-08 11:03] LABS: Anion Gap 16 (12-20); Blood Urea Nitrogen 21 mg/dL (9-16); Calcium 9.7 mg/dL (8.4-10.2); Carbon Dioxide 36 mmol/L (22-29); Chloride 97 mmol/L (96-108); Creatinine Clr Calc Pharmacy 39.4; Estimated Glomerular Filt Rate 59; Glucose Random 105 mg/dL (60-115); Lipase 40 U/L (8-78); Potassium 4.1 mmol/L (3.3-5.1); Sodium 145 mmol/L (135-145)
[2024-09-08] MEDS: LORazepam 0.5 MG TABLET PO (11:40)
--- NOTE | 2024-09-08 13:11 | MHC.CM.PN ---
Addendum entered by Trish Torres 09/08/24 14:50: Patient is discharged today. She will discharge to home with family support and transport. Original Note: a HOME OXYGEN EVAL has been performed. The patient qualifies for 2L oxygen via NC continuously.
== END 2024-09-08 15:43 | disposition home or self-care (01) | DRG 190 ==
LOC: HO.ED 19:03 → HO.EDOVER 20:56 → HO.S3 09-07 08:23
PROVIDERS: Physician Assistant; Physician Assistant Medical; Admitting Provider Internal Medicine; Emergency Provider Emergency Medicine Emergency Medical Services; PCP Internal Medicine; Visit Provider Internal Medicine
DX: J44.1 Chronic obstructive pulmonary disease with (acute) exacerbation (principal); I50.33 Acute on chronic diastolic (congestive) heart failure; B97.4 Respiratory syncytial virus as the cause of diseases classified elsewhere; E78.2 Mixed hyperlipidemia; I11.0 Hypertensive heart disease with heart failure; I48.0 Paroxysmal atrial fibrillation; J44.0 Chronic obstructive pulmonary disease with (acute) lower respiratory infection; J20.8 Acute bronchitis due to other specified organisms; Z20.822 Contact with and (suspected) exposure to COVID-19; Z87.891 Personal history of nicotine dependence; Z99.81 Dependence on supplemental oxygen; Z79.01 Long term (current) use of anticoagulants; Z79.51 Long term (current) use of inhaled steroids; Z79.899 Other long term (current) drug therapy
CPT/HCPCS: 0241U; 36415; 71045; 80048; 80053; 83690; 83735; 83880; 84443; 84484; 85025; 85610; 85730; 93005; 99221; 99285; J1940; J3475; J3480

== ENCOUNTER → 2024-09-06 14:17 | Outpatient (BNV) | payer MEDICARE, SELFPAY | PROVIDERS: Admitting Provider Internal Medicine; Emergency Provider Emergency Medicine Emergency Medical Services; PCP Internal Medicine; Visit Provider Internal Medicine | DX: R06.02 Shortness of breath (principal); I48.91 Unspecified atrial fibrillation; R94.31 Abnormal electrocardiogram [ECG] [EKG] | CPT/HCPCS: 93010 ==

== ENCOUNTER → 2024-09-06 14:17 | Outpatient (BNV) | payer MEDICARE, SELFPAY | PROVIDERS: PCP Student in an Organized Health Care Education/Training Program; Visit Provider Radiology Diagnostic Radiology | DX: R06.02 Shortness of breath (principal); R07.9 Chest pain, unspecified; R05.9 Cough, unspecified | CPT/HCPCS: 71045 ==

== ENCOUNTER → 2024-09-06 20:39 | Outpatient (BNV) | payer MEDICARE, SELFPAY | PROVIDERS: Admitting Provider Internal Medicine; Emergency Provider Emergency Medicine Emergency Medical Services; PCP Internal Medicine; Visit Provider Internal Medicine | DX: I50.33 Acute on chronic diastolic (congestive) heart failure (principal); J44.1 Chronic obstructive pulmonary disease with (acute) exacerbation; J20.5 Acute bronchitis due to respiratory syncytial virus; J20.8 Acute bronchitis due to other specified organisms; R06.09 Other forms of dyspnea; I48.0 Paroxysmal atrial fibrillation; I50.9 Heart failure, unspecified | CPT/HCPCS: 99223 ==

== ENCOUNTER 2024-09-18 13:24 | Outpatient (AMB) | payer MEDICARE, SELFPAY ==
--- NOTE | 2024-09-18 13:58 | MHC.PC.OV ---
Vital Signs 09/18/24 14:00 Height 5 ft 3 in Weight 111 lb 8 oz BMI 19.7 BP 120/62 Blood Pressure Location Lt brachial Position Sitting Pulse 87 Pulse Source Pulse Oximeter Temp 97.1 F Temp Source Temporal Artery Scan Pulse Oximetry (%) 93 Oxygen Delivery Method Nasal Cannula Intake Visit Reasons: TCM [facility] 09/08 COPD Intake Note: Patient is here for hospital discharge and TCM follow up. Patient was discharged from [facility] on 09/08/24. 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 Pmhx significant for chronic hypoxic respiratory failure due to COPD currently on 2 L of home oxygen, GERD, hypertension, mood disorder, hyperlipidemia, diastolic CHF, and atrial fibrillation on Eliquis. She was admitted at [facility] on 09/06 - 09/08 for Persistent SOB for 1 week. She tested positive for RSV on August 30. A chest X-ray showed no acute findings. She is currently on Oxygen 2 L NC 24 hours. She has been trying to see Room Server for Follow up appointment - but no one has returned her phone calls. [facility] Medical History Congestive heart failure Atrial fibrillation with rapid ventricular response Congestive heart failure Acute hypoxemic respiratory failure Encounter for cardioversion procedure Atrial fibrillation with RVR Acute exacerbation of congestive heart failure Acute on chronic hypoxic respiratory failure Acute HFrEF (heart failure with reduced ejection fraction) Chronic lung disease Skin lesion Dyslipidemia Cough due to DAISY inhibitor Neck pain GERD (gastroesophageal reflux disease) Aortic regurgitation Right hand pain Leg edema COPD (chronic obstructive pulmonary disease) Allergic rhinitis Anxiety Hypertension Surgical History Carpal tunnel syndrome, right History of bilateral cataract extraction History of partial hysterectomy Family History Father Medical history unknown Mother Medical history unknown Social History Household Members: None Housing: Apartment Do you presently have visiting nurse or other home services: No Alcohol intake: current Alcohol intake frequency: a few times a week Alcohol type: other Patient Tobacco Use Status: Former Tobacco user Tobacco use type: Cigarette e-Cigarette/Vaping Use: Never Used Second Hand Smoke Exposure: Yes Advance Directives Date on File: 08/25/20 service: No Current occupational status: retired Cognitive needs: No Hearing needs: No Vision needs: No Questionnaire Thrive Questionnaire Date Thrive assessed: 08/12/24 I am a: Patient What is your living situation today?: I have a steady place to live Within the past 12 months, did the food you bought not last and you didn't have the money to get more?: Never true Within the past 12 months, did you worry whether your food would run out before you got money to buy more?: Never true Do you have trouble paying for medicines?: No Do you have trouble getting transportation to medical appointments?: I choose not to answer this question Do you have trouble paying your heating and electricity bill?: I choose not to answer this question Do you have trouble taking care of your child, family member or friend?: I choose not to answer this question Do you have trouble with day-to-day activities such as bathing, preparing meals, shopping, managing finances, etc.?: I choose not to answer this question Are you currently unemployed and looking for a job?: I choose not to answer this question Are you interested in more education?: I choose not to answer this question Please select the resources that you would like help with: None Currently or been in a relationship where the following occur: I choose not to answer THRIVE Score: 0 CHRISTIAN-7 AMB Questionnaire CHRISTIAN-7 Date CHRISTIAN - 7 assessed: 08/12/24 Source: Developed by Drs. Mick Kovacs, Yasmeen Rey, Louie Warren and colleagues, with an educational louis from [employer] Review of Systems Const All systems reviewed & are unremarkable except as noted in HPI and below Physical exam (Primary Care) Vital Signs: Last Vital Signs Temp 97.1 F 09/18/24 14:00 Pulse 87 09/18/24 14:00 BP 120/62 09/18/24 14:00 Pulse Ox 93 09/18/24 14:00 Oxygen Delivery Method Nasal Cannula 09/18/24 14:00 BMI result Body Mass Index 19.7 Tobacco/Smoking Status: Tobacco use Status Tobacco use date assessed 09/18/24 09/18/24 14:05 Patient Tobacco Use Status Former Tobacco user 09/18/24 13:58 Tobacco use type Cigarette 09/18/24 13:58 e-Cigarette/Vaping Use Never Used 09/18/24 13:58 Thrive Assessment: Date of Thrive Assessment Date Thrive assessed 08/12/24 09/18/24 13:58 Currently or been in a relationship where the following occur: I choose not to answer Const General: cooperative and no acute distress Nutritional Appearance: underweight Orientation/consciousness: patient oriented x3 Resp Effort & Inspection: normal respiratory effort and able to speak in complete sentences Auscultation: clear to auscultation bilaterally, no crackles, no rales, no rhonchi and no wheezes Cardio Rhythm: abnormal rhythm irregularly irregular Heart sounds: S1 normal heart sound present and S2 normal heart sound present Neuro General: patient oriented x3, gait normal and moves all extremities Psych Speech and movement: Normal speech and movement present Coding Level of Care Code TCM Mod MDM <= 14 Days Diagnoses Respiratory syncytial virus (RSV) as cause of acute bronchitis J20.5 RSV infection type: acute bronchitis COPD with acute exacerbation J44.1 Time Spent (min) 20 Assessment & Plan Assessment & Plan (1) Respiratory syncytial virus (RSV): Code(s): B33.8 - Other specified viral diseases Category: Medical Qualifiers: RSV infection type: acute bronchitis Qualified Code(s): J20.5 - Acute bronchitis due to respiratory syncytial virus Plan: Stable. Still has a cough and chest congestion. (2) COPD with acute exacerbation: Code(s): J44.1 - Chronic obstructive pulmonary disease with (acute) exacerbation Category: Medical Plan: Stable. Will message Pulmonology office for a sooner appointment.
[2024-09-18 14:00] VITALS: BP 120/62; PULSE 87; TEMP 36.2; O2SAT 93; BMI 19.7
== END 2024-09-18 14:27 | disposition home or self-care (01) ==
LOC: HO.HMCH 13:25
PROVIDERS: PCP Internal Medicine; Visit Provider Nurse Practitioner Family
DX: J20.5 Acute bronchitis due to respiratory syncytial virus (principal); J44.1 Chronic obstructive pulmonary disease with (acute) exacerbation

== ENCOUNTER → 2024-09-18 13:24 | Outpatient (BNVA) | payer MEDICARE, SELFPAY | PROVIDERS: PCP Internal Medicine; Visit Provider Nurse Practitioner Family | DX: Z09 Encounter for follow-up examination after completed treatment for conditions other than malignant neoplasm (principal); I48.91 Unspecified atrial fibrillation; I42.9 Cardiomyopathy, unspecified; I10 Essential (primary) hypertension; E78.5 Hyperlipidemia, unspecified; J20.5 Acute bronchitis due to respiratory syncytial virus; J44.1 Chronic obstructive pulmonary disease with (acute) exacerbation | CPT/HCPCS: 99212; 99495 ==

== ENCOUNTER 2024-09-18 14:30 | Outpatient (AMB) | payer MEDICARE, SELFPAY ==
[2024-09-18 14:34] VITALS: BP 118/62; PULSE 78; BMI 19.7
--- NOTE | 2024-09-18 14:34 | MHC.OFFVIS ---
Vital Signs 09/18/24 14:34 Height 5 ft 3 in Weight 111 lb BMI 19.7 BP 118/62 Blood Pressure Location Lt brachial Position Sitting Pulse 78 Pulse Source Pulse Oximeter Intake Visit Reasons: Edema legs Allergies Sulfa (Sulfonamide Antibiotics) Allergy (Intermediate, Verified 09/18/24 14:00) nausea, vomiting Medication List - Last Reconciled 09/18/24 by Chino Dubose NP apixaban (Eliquis) 5 mg PO BID 90 days cholecalciferol (vitamin D3) 50 mcg PO DAILY 90 days cimetidine 400 mg PO BID 30 days compr.stocking,knee,long,small As directed fluticasone furoate-vilanterol 200-25 mcg/dose (Breo Ellipta) 1 inh inhalation DAILY folic acid 1 mg PO DAILY furosemide (Lasix) 40 mg PO BID gabapentin 100 mg PO TID PRN levalbuterol HCl 1.25 mg (3 mL) inhalation Q4-6H PRN 30 days levalbuterol tartrate 45 mcg/actuation 2 puffs inhalation Q4-6H PRN 30 days lorazepam 0.5 mg PO TID PRN 30 days metoprolol succinate ER 100 mg PO DAILY 90 days pantoprazole 40 mg PO DAILY 90 days rosuvastatin 5 mg PO BEDTIME tiotropium bromide 2.5 mcg/actuation (Spiriva Respimat) 2 puffs inhalation DAILY 30 days trolamine salicylate 10% (Aspercreme) 1 appl topical DAILY PRN HPI Comments Details: This is an 79-year-old female patient presenting for hospital discharge follow-up visit. Patient with a history of COPD, currently on home oxygen therapy at 2 L, hypertension, hyperlipidemia, diastolic heart failure, and paroxysmal AFib. She was recently hospitalized for RSV during which she initially refused admission but later returned with worsening symptoms of shortness of breath and agreed to be admitted. During her hospitalization she was treated with steroids and Lasix. Since discharge, the patient reports overall improvement of her symptoms, though she continues to experience mild shortness of breath and some cough. At a prior office visit, her Lasix dose was reduced to 40 mg daily because she has since increased it back to 80 mg daily due to increased leg swelling. The patient denies any exertional chest pain, palpitations, dizziness, orthopnea, PND, presyncope, or syncope. Patient states she is compliant with all her medications. [facility] Medical History (Updated 09/18/24 @ 16:07 by Chino Dubose NP) Hypertension CHF (congestive heart failure) PAF (paroxysmal atrial fibrillation) Congestive heart failure Atrial fibrillation with rapid ventricular response Congestive heart failure Acute hypoxemic respiratory failure Encounter for cardioversion procedure Atrial fibrillation with RVR Acute exacerbation of congestive heart failure Acute on chronic hypoxic respiratory failure Acute HFrEF (heart failure with reduced ejection fraction) Chronic lung disease Skin lesion Dyslipidemia Cough due to DAISY inhibitor Neck pain GERD (gastroesophageal reflux disease) Aortic regurgitation Right hand pain Leg edema COPD (chronic obstructive pulmonary disease) Allergic rhinitis Anxiety Surgical History Carpal tunnel syndrome, right History of bilateral cataract extraction History of partial hysterectomy Family History Father Medical history unknown Mother Medical history unknown Social History Household Members: None Housing: Apartment Do you presently have visiting nurse or other home services: No Alcohol intake: current Alcohol intake frequency: a few times a week Alcohol type: other Patient Tobacco Use Status: Former Tobacco user Tobacco use type: Cigarette e-Cigarette/Vaping Use: Never Used Second Hand Smoke Exposure: Yes Advance Directives Date on File: 08/25/20 service: No Current occupational status: retired Cognitive needs: No Hearing needs: No Vision needs: No Review of Systems Const Denies weakness ENT Denies dizziness Card Denies chest pain, Denies chest pain with activity, Denies syncope, Denies rapid heart rate, Denies pedal edema, Denies edema, Denies leg edema, Denies lightheadedness, Denies palpitations, Denies dyspnea, Denies dyspnea on exertion and Denies orthopnea Resp Denies cough, Denies dyspnea and Denies dyspnea on exertion GI Denies hematochezia and Denies change in stool character Musc Denies abnormal gait, Denies muscle cramps, Denies muscle weakness, Denies numbness, Denies radiating pain into limb and Denies tingling Neuro Denies abnormal gait, Denies dizziness, Denies syncope, Denies numbness, Denies tingling and Denies weakness Endo Denies palpitations Physical Exam Vital Signs: Last Vital Signs Pulse 78 09/18/24 14:34 BP 118/62 09/18/24 14:34 BMI result Body Mass Index 19.7 Const General: cooperative, healthy appearing, comfortable and no acute distress Orientation/consciousness: patient oriented x3 HEENT Head: Yes normal to inspection Neck Neck: Yes normal visual inspection, Yes trachea midline and Yes supple Chest Chest palpation & inspection: normal inspection of the chest Resp Other: On continuous 2 L oxygen supplement via nasal cannula Effort & Inspection: normal respiratory effort Auscultation: clear to auscultation bilaterally, no crackles, no rales, no rhonchi and no wheezes Cardio Jugular venous distension: no JVD Palpation: normal PMI Rate: regular rate Rhythm: abnormal rhythm Heart sounds: S1 normal heart sound present, S2 normal heart sound present, no click, no gallops, no murmurs and no rubs Peripheral pulses: Peripheral pulses 2+ throughout GI Inspection: Yes normal to inspection Palpation (GI): Soft to palpation Auscultation: normal bowel sounds Skin General skin exam: no rashes or lesions noted Neuro General: patient oriented x3 Extrem General: Yes normal to inspection, No no pedal edema and No calf tenderness Psych Appearance: grossly normal Mental Status: mental status grossly normal Speech and movement: Normal speech and movement present Assessment & Plan Assessment & Plan (1) Afib: Code(s): I48.91 - Unspecified atrial fibrillation Category: Medical Plan: Patient with a history of paroxysmal AFib on Eliquis therapy for full anticoagulation. Patient had previously had 1 cardioversion with successful conversion to sinus rhythm. It seems patient is back in AFib. Could be related to her recent illness. Continue metoprolol therapy for rate control approach. We will get a 3 day Holter to look at AFib burden. In case of persistent AFib, patient may need cardioversion and referral to EP for ablation. This was discussed in detail with the patient and the daughter. (2) Cardiomyopathy: Code(s): I42.9 - Cardiomyopathy, unspecified Category: Medical Plan: 04/30/2024-echo study showed normal EF between 60-65%, elevated filling pressures, dilated left atrium, severe pulmonary hypertension. Clinically euvolemic. Continue Lasix therapy. Advised low-salt diet, fluid restriction, and daily weight monitoring. We will repeat an echo before next office visit. (3) Hypertension: Code(s): I10 - Essential (primary) hypertension Category: Medical Qualifiers: Hypertension type: essential hypertension Qualified Code(s): I10 - Essential (primary) hypertension Plan: Blood pressure today is well-controlled. Continue current regimen. Advised to continue monitoring blood pressures at home and keeping a log of it. Ideally, blood pressure goal less than 130/80. (4) Dyslipidemia: Code(s): E78.5 - Hyperlipidemia, unspecified Category: Medical Plan: Most recent LDL 78. Continue statin therapy. (5) Hospital discharge follow-up: Code(s): Z09 - Encounter for follow-up examination after completed treatment for conditions other than malignant neoplasm Category: Medical Plan: As above. Advised heart healthy diet, regular exercise, med compliance, and aggressive management of her vascular risk factors. Patient will follow up in the office in [address] Corral. In the interim, patient will call the office with any concerns or change in symptoms. This note was generated using voice recognition software. While every effort has been made to ensure accuracy and proper call center rn, there may be occasional errors that could affect the content or meaning of the described symptoms. Orders: Orders ECG 3 day holter monitor Today I48.91 - Unspecified atrial fibrillation CA echo transthoracic complete Today I48.91 - Unspecified atrial fibrillation Coding Level of Care Code Est Pt Level 4 (53682) Complex EM visit Add On G2211 Diagnoses Afib I48.91 Cardiomyopathy I42.9 Essential hypertension I10 Hypertension type: essential hypertension Dyslipidemia E78.5 Hospital discharge follow-up Z09 Time Spent (min) 35 Comment Time spent in reviewing the chart, test results, assessment, counseling and documentation.
== END 2024-09-18 15:38 | disposition home or self-care (01) ==
PROVIDERS: PCP Internal Medicine
DX: I48.91 Unspecified atrial fibrillation (principal); I42.9 Cardiomyopathy, unspecified; I10 Essential (primary) hypertension; E78.5 Hyperlipidemia, unspecified; Z09 Encounter for follow-up examination after completed treatment for conditions other than malignant neoplasm
CPT/HCPCS: 99214; G2211

== ENCOUNTER 2024-10-12 14:20 | Outpatient (AMB) | payer MEDICARE, SELFPAY ==
[2024-10-12 14:51] VITALS: BP 102/48; BMI 20.3
--- NOTE | 2024-10-12 14:51 | A.OFFVIS_ITS ---
Vital Signs 10/12/24 14:51 Height 5 ft 3 in Weight 114 lb 10.246 oz BMI 20.3 BP 102/48 L Blood Pressure Location Lt brachial Position Sitting Intake Visit Reasons: COPD exacerbation Intake Note: pt is here for follow up of having RSV for a tuff 6 weeks, she is cough with phlegm, and very tired. Grain Manager Required: No Allergies Sulfa (Sulfonamide Antibiotics) Allergy (Intermediate, Verified 10/12/24 15:30) nausea, vomiting Medication List - Last Reconciled 10/12/24 by Tamara Rehman MD apixaban (Eliquis) 5 mg PO BID 90 days cholecalciferol (vitamin D3) 50 mcg PO DAILY 90 days cimetidine 400 mg PO BID 30 days compr.stocking,knee,long,small As directed fluticasone furoate-vilanterol 200-25 mcg/dose (Breo Ellipta) 1 inh inhalation DAILY folic acid 1 mg PO DAILY furosemide (Lasix) 40 mg PO BID gabapentin 100 mg PO TID PRN levalbuterol HCl 1.25 mg (3 mL) inhalation Q4-6H PRN 30 days levalbuterol tartrate 45 mcg/actuation 2 puffs inhalation Q4-6H PRN 30 days lorazepam 0.5 mg PO TID PRN 30 days metoprolol succinate ER 100 mg PO DAILY 90 days pantoprazole 40 mg PO DAILY 90 days rosuvastatin 5 mg PO BEDTIME tiotropium bromide 2.5 mcg/actuation (Spiriva Respimat) 2 puffs inhalation DAILY 30 days trolamine salicylate 10% (Aspercreme) 1 appl topical DAILY PRN Do you need a note to return to daycare/school/sports/work: No HPI HPI COPD exacerbation: Details: LAZARO IS 79 YEARS OLD VERY PLEASANT FEMALE WHO IS HERE FOR HER 6 MONTHS FOLLOW- UP. SHE DOES HAVE ADVANCED CHRONIC OBSTRUCTIVE PULMONARY DISEASE WITH HYPOXEMIA, AND STAYS ON O2 2 L/MINUTE. SHE HAS BEEN FAIRLY STABLE WITH THE USE OF BREO 200-25 AND SPIRIVA RESPIMAT 2 INHALATIONS DAILY. ABOUT 4 WEEKS AGO SHE WAS ADMITTED TO THE HOSPITAL WITH RSV INFECTION AND MAINLY CONGESTIVE HEART FAILURE. THERE WAS NO PNEUMONIA. SHE HAS RECOVERED FAIRLY WELL BUT STILL REMAINS TIRED AND SOMEWHAT WEAK. BREATHING IS STABLE AND COUGH IS MINIMAL. MAIN COMPLAINT WAS ABOUT THE [place]ST[place] OF FLUTICASONE/VILANTEROL ( GENERIC OF BREO ) [facility], [facility] Medical History (Updated 10/12/24 @ 15:38 by Taamra Rehman MD) Respiratory failure with hypoxia Hypertension CHF (congestive heart failure) PAF (paroxysmal atrial fibrillation) Congestive heart failure Atrial fibrillation with rapid ventricular response Congestive heart failure Acute hypoxemic respiratory failure Encounter for cardioversion procedure Atrial fibrillation with RVR Acute exacerbation of congestive heart failure Acute on chronic hypoxic respiratory failure Acute HFrEF (heart failure with reduced ejection fraction) Chronic lung disease Skin lesion Dyslipidemia Cough due to DAISY inhibitor Neck pain GERD (gastroesophageal reflux disease) Aortic regurgitation Right hand pain Leg edema COPD (chronic obstructive pulmonary disease) Allergic rhinitis Anxiety Surgical History Carpal tunnel syndrome, right History of bilateral cataract extraction History of partial hysterectomy Family History Father Medical history unknown Mother Medical history unknown Social History Household Members: None Housing: Apartment Do you presently have visiting nurse or other home services: No Alcohol intake: current Alcohol intake frequency: a few times a week Alcohol type: other Patient Tobacco Use Status: Former Tobacco user Tobacco use type: Cigarette e-Cigarette/Vaping Use: Never Used Second Hand Smoke Exposure: Yes Advance Directives Date on File: 08/25/20 service: No Current occupational status: retired Cognitive needs: No Hearing needs: No Vision needs: No Review of Systems Const All systems reviewed & are unremarkable except as noted in HPI and below Eyes Reports no additional complaints ENT Reports nasal congestion (Mild intermittent) and Reports neck pain (Mild off and on) Card Denies chest pain at rest, Denies chest pain with activity, Denies edema, Denies irregular heart rhythm, Denies claudication, Denies dyspnea, Denies dyspnea on exertion, Denies orthopnea, Denies paroxysmal nocturnal dyspnea and Denies slow heart rate Resp Denies cough, Denies dyspnea and Denies dyspnea on exertion GI Reports heartburn (GERD symptoms controlled with med) Reports no additional complaints Musc Reports neck pain (Mild off and on) Skin/Breast Reports rash Neuro Reports no additional complaints Psych Reports no additional complaints Physical Exam Vital Signs: Last Vital Signs BP 102/48 L 10/12/24 14:51 BMI result Body Mass Index 20.3 Const General: comfortable, no acute distress, alert and awake Orientation/consciousness: patient oriented x3 HEENT Head: Yes normal to inspection General nose exam: No nasal polyps present, No nasal discharge present and Other nasal findings present (Mild nasal congestion is present) Face and sinus: Yes sinuses nontender Mouth: oropharynx normal Throat: Yes posterior oropharynx normal Eyes General: appearance normal, both eyes and all related structures Neck Neck: Yes normal visual inspection, Yes no lymphadenopathy, Yes trachea midline and Yes no JVD Thyroid: Thyroid normal Chest Chest palpation & inspection: normal inspection of the chest, normal palpation of entire chest wall and no tenderness Resp Other: Percussion note hyper-resonant, breath sounds are equal on both sides with prolonged expiratory phase. No wheezes rhonchi, a few fine inspiratory crackles over the basilar areas. Cardio Palpation: normal PMI Rate: regular rate Rhythm: regular rhythm Heart sounds: no gallops and no murmurs GI Palpation (GI): Soft to palpation, nontender, No hepatosplenomegaly present and no masses Auscultation: normal bowel sounds Back/Spine/Pelvis Thoracic/Lumbar Spine: thoracic and lumbar spine normal to inspection Skin General skin exam: no rashes or lesions noted Neuro General: patient oriented x3 and no focal motor deficits Cranial nerves: Yes CN's II-XII intact bilaterally Extrem General: Yes normal to inspection, Yes no calf tenderness and Yes edema (1+ edema around the ankles and of the feet on both sides) Psych Appearance: grossly normal and well kempt Speech and movement: Normal speech and movement present Results Reviewed Results Reviewed: HOSPITAL RECORDS FOR HER RECENT HOSPITALIZATION WERE REVIEWED Assessment & Plan Assessment & Plan (1) COPD (chronic obstructive pulmonary disease): Comment: SHE DOES HAVE ADVANCED CHRONIC OBSTRUCTIVE PULMONARY DISEASE BUT MOSTLY HAS BEEN STABLE WITH THE USE OF CURRENT REGIMEN. SHE WAS ADMITTED TO THE HOSPITAL RECENTLY AND TESTED POSITIVE FOR RSV INFECTION, BUT ADMISSION WAS MAINLY DUE TO CONGESTIVE HEART FAILURE. Code(s): J44.9 - Chronic obstructive pulmonary disease, unspecified Category: Medical Plan: REASSURED AND TOLD THAT HER LUNGS WERE VERY CLEAR. CONTINUE BREO 200-25 1 INHALATION DAILY ( GENERIC IS OKAY) SPIRIVA RESPIMAT 2.5 2 INHALATIONS DAILY. LEVALBUTEROL 1 POINT 2 5 MG 3 ML IN THE NEBULIZER Q 6 HOURS P.R.N. OR LEVALBUTEROL-452 PUFFS Q.6 HOURS P.R.N. (2) Allergic rhinitis: Comment: Allergic rhinitis is mild, intermittent and controlled . Code(s): J30.9 - Allergic rhinitis, unspecified Category: Medical Plan: NO ACTIVE TREATMENT NEEDED AT THIS TIME (3) Respiratory failure with hypoxia: Comment: PATIENT HAS HAD HYPOXEMIC RESPIRATORY FAILURE AND DOES NEED OXYGEN SUPPLEMENTATION. SHE HAS A VERY LIGHTWEIGHT PORTABLE POC. Code(s): J96.91 - Respiratory failure, unspecified with hypoxia Category: Medical Plan: ADVISED TO CONTINUE USING O2 2 L/MINUTE, AT NIGHT,, 2 L/MINUTE PRN ON GOING OUTDOORS ON WALKING. Coding Level of Care Code Est Pt Level 3 (50526) Diagnoses COPD (chronic obstructive pulmonary disease) J44.9 Allergic rhinitis J30.9 Respiratory failure with hypoxia J96.91
--- OUTSIDE RECORDS SUMMARY | 2024-10-12 16:43 | XMS_ITS ---
Author Organization [facility] Address [address] [place] [address] Care Team Providers Care Shuttle Inspector Name Role Phone Bonilla BURGOS, Parul Primary Care Provider Unavail Renuka Majano Unavailable [phone] REASON FOR VISIT EDUCATION PROGRAM MANAGER PPWK Entered Encounters Encounter Location Date Provider Diagnosis [address] [address] 08/24/2024 Renuka Loja Plan Of Treatment Next Appt Details Provider Name:Renuka dunn, 10/27/2024 10:30:00 AM, [address] [place], [address], Progress Notes * Yasmeen ANDREWSDOB:1945 (7 0 yo F)Acc No.[id number]:08/24/2024 Patient:?Yasmeen ANDREWS :1945???Age:79 Y???Sex:Female Address:[address] [place] [address], [place] [address] * true * Date:? Generated for Printi ng/Faroeg/eTransmitting on:?10/12/2024 04:42 PM EDT
--- OUTSIDE RECORDS SUMMARY | 2024-10-12 16:43 | XMS_ITS | Patient Health Record ---
Author Organization [facility] [place] Address [address] [place] [address] Care Team Providers Care Security Systems Technician Name Role Phone Bonilla BURGOS, Parul Primary Care Provider Unavail Renuka Majano Unavailable [phone] Allergies Allergen (clinical drug ingredient) Drug/Non Drug [...] Negative Encounters Encounter Location Date Provider Diagnosis [facility] [address] [place] [address] 08/24/2024 Renuka Loja Plan Of Treatment Next Appt Details Provider Name:Renuka dunn, 10/27/2024 10:30:00 AM, [address] [place], [address], Insurance Providers Payer Name Payer Address Payer Phone Subscriber Number Group Number Insured Name Patient Relationship to Insured Coverage Start Date Coverage End Date Medicare National [facility] [address] [place] [phone] [id number] JulianaFede mosleyet Self - patient is the insured [facility] [address] [place] [address] [id number] JulianaYasmeen mosley Self - patient is the insured Medical (General) History Medical History History ICD Code Anxiety Cataracts High Blood Pressure Lung disease Reflux ( GERD) Surgical History Surgery Date(Month/Year) partial hysterectomy 1972 appendectomy 1965
== END 2024-10-12 15:28 | disposition home or self-care (01) ==
LOC: HO.HPS 14:20
PROVIDERS: PCP Internal Medicine; Visit Provider Internal Medicine
DX: J44.9 Chronic obstructive pulmonary disease, unspecified (principal); J30.9 Allergic rhinitis, unspecified; J96.91 Respiratory failure, unspecified with hypoxia
CPT/HCPCS: 99213

== ENCOUNTER → 2024-10-12 14:20 | Outpatient (BNVA) | payer MEDICARE, SELFPAY | PROVIDERS: PCP Internal Medicine; Visit Provider Internal Medicine | DX: J44.9 Chronic obstructive pulmonary disease, unspecified (principal); J30.9 Allergic rhinitis, unspecified; J96.91 Respiratory failure, unspecified with hypoxia | CPT/HCPCS: 99212 ==

== ENCOUNTER → 2024-10-14 10:57 | Outpatient (REF) | payer MEDICARE, SELFPAY ==
--- NOTE | 2024-10-14 11:01 | CA_ITS ---
Transthoracic Echocardiogram Patient (Last, First, Middle): Yasmeen Andrews R Gender: Female Date of : 1945 Age: 79 Procedure Date: 10/14/2024 Procedure Type: Transthoracic Echocardiogram Location: OP Height: 160.02 cm Weight: 49.9 kg BSA: 1.50 m2 Heart Rate: bpm BP: 116 / 50 mmHg Beach Expert: EBONY Referring MD: Chino Dubose NP Inventory Control Specialist: Jean-Pierre Reilly MD Symptoms: I48.91 - Unspecified atrial fibrillation Study Quality: Adequate ECG Rhythm: Atrial Fibrillation Conclusions: - 1. Normal LV ejection fraction of 60-65% 2. At least moderate biatrial enlargement 3. Mild mitral and aortic regurgitation 4. Severely elevated right ventricular systolic pressure with mildly elevated right atrial pressures 5. No gross pericardial effusion Findings Left Ventricle Normal left ventricular size, thickness, and systolic function. The visually estimated ejection fraction is between 60-65%. There is a flattened septum in systole consistent with right ventricular pressure overload. Diastolic function is indeterminate on the basis of available data. Right Ventricle Mildly increased right ventricular cavity size. There is borderline right ventricular systolic function. Atria The left atrium is moderately dilated. There is no evidence of interatrial shunt. The right atrium is moderately dilated. Aortic Valve There is mild calcification of the aortic valve. There is mild thickening of the aortic valve. There is no aortic valve stenosis. There is mild aortic valve regurgitation. Mitral Valve There is mild anterior and posterior mitral leaflet thickening. There is mild mitral valve regurgitation. There is no mitral valve stenosis. Pulmonic Valve The pulmonic valve is likely normal. There is trace pulmonic valve regurgitation. Tricuspid Valve Normal tricuspid valve structure. There is mild to moderate tricuspid valve regurgitation. Mildly elevated right atrial pressure. Severe pulmonary hypertension is present. Great Vessels All visible segments of the aorta are normal in size. The pulmonary artery was not well visualized. There is no dilatation of the ascending aorta measuring 3.00 cm. Venous The inferior vena cava is mildly dilated and collapses less than 50% with inspiration. Pericardium/Pleural There is no evidence of pericardial effusion. Prior Study Comparison No significant change compared to prior study dated: 04/30/2024. Measurements 2D Linear Measurements IVSd: 1.05 0.6-0.9/0.6-1.0 cm LVIDd: 3.91 3.9-5.3/4.2-5.9 cm LVIDd Index: 2.61 2.4-3.2/2.2-3.1 cm/m2 LVIDs: 2.44 2.0-3.6 cm LVPWd: 1.06 0.7-1.1 cm Ao Root: 3.10 2.1-3.5 cm LA Diam: 3.00 2.7-3.8/3.0-4.0 cm LAIDs Index: 2.00 1.5-2.3 cm/m2 LV Mass: 164.73 67-162/88-224 g LV Mass Index: 109.82 43-95/49-115 g/m2 LVOT Diam: 1.90 3.0+(-)1.3 cm 2D Systolic Function EF 4C: 69.70 >55% EF 2C: 54.10 >55% EF BiP: 63.30 >55% Mitral Valve MV VTI: 0.19 MV Pk Jabari: 1.12 MV Mn Jabari: 0.57 MV Pk Grad: 5.00 MV Mn Grad: 2.00 MV Pk E: 1.07 MV Decel Time: 112.00 E'Lateral: 6.96 E'Medial: 3.59 E/E' Med: 29.80 E/E' Lat: 15.40 PHT: 33.00 MVA PHT: 6.67 MVA Continuity: 2.90 Decel Amelia: 9.54 Aortic Valve AoV Pk Jabari: 1.31 AoV Mn Jabari: 0.82 AoV VTI: 0.30 AoV Pk Grad: 7.00 Aov Mn Grad: 3.00 FRANCISCO Cont.VTI: 1.85 AI Pk Jabari: 4.30 AI Amelia: 4.42 LVOT LVOT Pk Jabari: 0.83 LVOT Mn Jabari: 0.57 LVOT VTI: 0.19 LVOT Pk Grad: 3.00 LVOT Mn Grad: 2.00 LVOT Diam: 1.90 LVOT Area: 2.84 Diastolic Function MV Pk E: 1.07 E'Medial: 3.59 E/E' Med: 29.80 E' Laterial: 6.96 E/E' Lat: 15.40 Right Ventricle TAPSE (mm): 17.00 TVS' Jabari: 8.00 Tricuspid Valve TR Pk Jabari: 3.91 TR Pk Grad: 61.00 RA Press: 8.00 RVSP: 69.00 Great Vessels Aorta Ao Root-2D: 3.10 2.0-3.7 cm Ao Asc: 3.00 2.1-3.4 cm Pulmonary Valve PV Pk Jabari: 0.67 Peak PV Grad: 2.00 Updated in Other Vendor System with Status of Final Jean-Pierre Reilly MD electronically signed on 10/14/2024 3:02:52 PM with status of Final
--- OUTSIDE RECORDS SUMMARY | 2024-10-14 13:06 | XMS_ITS ---
Author Organization [facility] [place] Address [address] [place] [address] Care Team Providers Care Cane Cutter Name Role Phone Bonilla BURGOS, Parul Primary Care Provider Unavail Renuka Majano Unavailable [phone] REASON FOR VISIT FLIGHT OPERATIONS INSPECTOR PPWK Entered Encounters Encounter Location Date Provider Diagnosis [address] [address] 08/24/2024 Renuka Loja Plan Of Treatment Next Appt Details Provider Name:Renuka dunn, 10/27/2024 10:30:00 AM, [address] [place], [address], Progress Notes * Yasmeen ANDREWSDOB:1945 ([age] yo F)Acc No.[id number]:08/24/2024 Patient:?Yasmeen ANDREWS :1945???Age:79 Y???Sex:Female Address:[address] [place] [address], [place] [address] * true * Date:? Generated for Printi ng/Faroeg/eTransmitting on:?10/14/2024 01:06 PM EDT
--- OUTSIDE RECORDS SUMMARY | 2024-10-14 13:06 | XMS_ITS | Patient Health Record ---
Author Organization [facility] [place] Address [address] [place] [address] Care Team Providers Care Deflector Operator Name Role Phone Bonilla BURGOS, Parul Primary Care Provider Unavail Renuka Majano Unavailable [phone] Allergies Allergen (clinical drug ingredient) Drug/Non Drug [...] Negative Encounters Encounter Location Date Provider Diagnosis [facility] [address] [place] [address] 08/24/2024 Renuka Loja Plan Of Treatment Next Appt Details Provider Name:Renuka dunn, 10/27/2024 10:30:00 AM, [address] [place], [address], Insurance Providers Payer Name Payer Address Payer Phone Subscriber Number Group Number Insured Name Patient Relationship to Insured Coverage Start Date Coverage End Date Medicare National [facility] [address] [place] [phone] [id number] JulianaFede mosleyet Self - patient is the insured [facility] [address] [place] [phone] [id number] JulianaYasmeen mosley Self - patient is the insured Medical (General) History Medical History History ICD Code Anxiety Cataracts High Blood Pressure Lung disease Reflux ( GERD) Surgical History Surgery Date(Month/Year) partial hysterectomy 1972 appendectomy 1965
== END ==
LOC: HO.CARD 10:57
PROVIDERS: PCP Internal Medicine
DX: I48.91 Unspecified atrial fibrillation (principal)
CPT/HCPCS: 93242; 93306

== ENCOUNTER → 2024-10-14 11:01 | Outpatient (BNV) | payer MEDICARE, SELFPAY | PROVIDERS: PCP Internal Medicine; Visit Provider Internal Medicine Cardiovascular Disease | DX: I51.7 Cardiomegaly (principal); I34.0 Nonrheumatic mitral (valve) insufficiency; I35.1 Nonrheumatic aortic (valve) insufficiency; I36.1 Nonrheumatic tricuspid (valve) insufficiency | CPT/HCPCS: 93306 ==

== ENCOUNTER 2024-10-21 15:03 | Inpatient (IN) | payer MEDICARE, SELFPAY ==
--- NOTE | ~2024-10-21 | US_ITS ---
CLINICAL HISTORY: pedal edema, RLE > LLE Venous duplex ultrasound bilateral lower extremity Comparison: None Findings: The visualized deep veins are fully compressible with normal Doppler color flow and spectral tracings. No popliteal cyst. IMPRESSION: 1. Negative for bilateral lower extremity deep vein thrombosis. This document has been electronically signed by: Chong Newell MD on 10/21/2024 19:17:01
--- NOTE | ~2024-10-21 | XR_ITS ---
EXAMINATION: XR CHEST CLINICAL INFORMATION: sob COMPARISON: 09/06/2024, 08/30/2024. TECHNIQUE: 2 views of the chest were obtained. FINDINGS: There is cardiac enlargement. Mediastinal and hilar contours are normal. Aortic mural calcifications. Lungs are severely hyperaerated, with increased fine interstitial markings throughout. No definite focal pneumonia. There is no pneumothorax or pleural effusion. There is no focal osseous or soft tissue abnormality. XR/XR chest 2V IMPRESSION: Cardiomegaly. Severe COPD without definite superimposed active disease. Electronically signed by: Abhijeet Pearl MD 10/21/2024 03:36 PM EDT
[2024-10-21 15:07] VITALS: BP 143/75; PULSE 89; RESP 16; TEMP 36.3; O2SAT 96; BMI 43.7
--- NOTE | 2024-10-21 15:08 | ED_ITS ---
HPI - SOB/Dyspnea General Chief Complaint: Dyspnea Stated Complaint: Loaded With Fluid, Shortness of Breath Time Seen by Provider: 10/21/24 18:11 Related Data Home Medications ?Medication ?Instructions ?Recorded ?Confirmed folic acid 1 mg tablet 1 mg PO DAILY 12/06/23 10/12/24 furosemide 40 mg tablet (Lasix) 40 mg PO BID 09/06/24 10/12/24 gabapentin 100 mg capsule 100 mg PO TID PRN Pain 09/07/24 10/12/24 rosuvastatin 5 mg tablet 5 mg PO BEDTIME 09/07/24 10/12/24 trolamine salicylate 10 % topical 1 appl topical DAILY PRN Pain 09/07/24 10/12/24 cream (Aspercreme) Previous Rx's ?Medication ?Instructions ?Recorded apixaban 5 mg tablet (Eliquis) 5 mg PO BID 90 days #180 tabs 12/15/23 levalbuterol HCl 1.25 mg/3 mL 1.25 mg (3 mL) inhalation Q4-6H 01/06/24 solution for nebulization PRN shortness of breath or wheezing 30 days #90 mL compr.stocking,knee,long,small #2 ea 01/08/24 pantoprazole 40 mg tablet,delayed 40 mg PO DAILY 90 days #90 tabs 05/04/24 release tiotropium bromide 2.5 2 puff inhalation DAILY copd, 30 06/01/24 mcg/actuation mist for inhalation days #4 grams (Spiriva Respimat) cholecalciferol (vitamin D3) 50 50 mcg PO DAILY 90 days #90 caps 06/11/24 mcg (2,000 unit) capsule fluticasone furoate 200 1 inh inhalation DAILY #60 ea 07/06/24 mcg-vilanterol 25 mcg/dose inhalation powder (Breo Ellipta) metoprolol succinate 100 mg 100 mg PO DAILY 90 days #90 tabs 08/05/24 tablet,extended release 24 hr cimetidine 400 mg tablet 400 mg PO BID 30 days #60 tabs 09/21/24 levalbuterol tartrate 45 2 puff inhalation Q4-6H PRN 10/09/24 mcg/actuation aerosol inhaler shortness of breath 30 days #15 grams lorazepam 0.5 mg tablet 0.5 mg PO TID PRN anxiety 30 days 10/19/24 #90 tabs Allergies Allergy/AdvReac Type Severity Reaction Status Date / Time Sulfa (Sulfonamide Allergy Intermediate nausea, Verified 10/21/24 15:09 Antibiotics) vomiting PMFSH Past Medical History Medical History Respiratory failure with hypoxia Hypertension CHF (congestive heart failure) PAF (paroxysmal atrial fibrillation) Congestive heart failure Atrial fibrillation with rapid ventricular response Congestive heart failure Acute hypoxemic respiratory failure Encounter for cardioversion procedure Atrial fibrillation with RVR Acute exacerbation of congestive heart failure Acute on chronic hypoxic respiratory failure Acute HFrEF (heart failure with reduced ejection fraction) Chronic lung disease Skin lesion Dyslipidemia Cough due to DAISY inhibitor Neck pain GERD (gastroesophageal reflux disease) Aortic regurgitation Right hand pain Leg edema COPD (chronic obstructive pulmonary disease) Allergic rhinitis Anxiety Surgical History Carpal tunnel syndrome, right History of bilateral cataract extraction History of partial hysterectomy Family History Family History Father Medical history unknown Mother Medical history unknown Social History Social History Household Members: None Housing: Apartment Do you presently have visiting nurse or other home services: No Alcohol intake: current Alcohol intake frequency: a few times a week Alcohol type: other Patient Tobacco Use Status: Former Tobacco user Tobacco use type: Cigarette Smoked in Last 30 Days: No e-Cigarette/Vaping Use: Never Used Second Hand Smoke Exposure: Yes Use of substances other than those prescribed or required for medical reasons: No Advance Directives: No Advance Directives Information Provided: Yes Advance Directives Date on File: 08/25/20 service: No Current occupational status: retired Cognitive needs: No Hearing needs: No Vision needs: No Physical Exam 2 Vital Signs: Vital Signs: Last Vital Signs Temp 97.3 F 10/21/24 15:07 Pulse 78 10/21/24 19:10 Resp 18 10/21/24 19:10 BP 147/85 H 10/21/24 19:10 Pulse Ox 100 10/21/24 19:10 O2 Del Method Nasal Cannula 10/21/24 19:10 O2 Flow Rate 2 10/21/24 19:10 Oxygen Flow Rate 2 10/21/24 15:07 BMI result Body Mass Index 43.7 Course Course Course Narrative: This is a Rapid Medical Exam performed in triage by Rose Hilton PA-C. Full HPI, ROS and PE to be performed by primary ED provider. 79yo F w/PMHx COPD on 2L O2, HTN, HLD, CHF, A.fib on Eliquis presenting to the ED c/o pedal edema, SOB x2 weeks. Admits has been doubling her Lasix (usually takes 80mg daily) however has been (taking 160mg x1mos) to try to dieresis w/o relief. Denies CP, fever. PE: +bilateral pitting edema, talking in complete sentences Plan: EKG, labs, CXR, SARs, Venous duplex US Medications Administered Discontinued Medications Generic Name Dose Route Start Last Admin Trade Name Freq PRN Reason Stop Dose Admin Magnesium Sulfate 2 gm in 50 mls @ 150 mls/hr 10/21/24 18:56 10/21/24 19:09 Magnesium Sulfate/H2o IV 10/21/24 19:15 150 mls/hr ONCE ONE Administration Potassium Chloride 40 meq 10/21/24 18:45 10/21/24 19:07 Potassium Chloride Packet 20 Meq Packet PO 10/21/24 18:46 40 meq ONCE ONE Administration Medical Decision Making Lab Data 10/21/24 15:45 10/21/24 15:45 Labs: Lab Results 10/21/24 Range/Units 15:45 WBC 7.3 (4.8-10.8) X10*3/uL RBC 4.27 (4.20-5.50) X10*6/uL Hgb 11.5 L (12.0-16.0) g/dl Hct 36.2 L (37.0-47.0) % MCV 84.8 (80.0-98.0) fL MCH 26.9 L (27.0-33.0) pg MCHC 31.8 (31.0-35.0) g/dl RDW 16.3 H (11.0-16.0) % Plt Count 250 (160-400) X10*3/uL MPV 9.7 (9.4-12.3) fL Immature Gran % (Auto) 0.4 (0.0-0.4) % Neut % (Auto) 72.8 (45-73) % Lymph % (Auto) 15.8 L (20-40) % [place] % (Auto) 9.0 (2-11) % Eos % (Auto) 1.2 (0-4) % Baso % (Auto) 0.8 (0-2) % Lymph # (Auto) 1.2 (1.2-4.9) X10*3/uL [place] # (Auto) 0.7 (0.1-1.2) X10*3/uL Eos # (Auto) 0.1 (0.0-0.4) X10*3/uL Baso # (Auto) 0.1 (0.0-0.2) X10*3/uL Abs Immat Gran (auto) 0.03 (0.00-0.03) X10*3/uL Absolute Neuts (auto) 5.3 (2.0-8.3) x10*3/uL Absolute Nucleated RBC 0.000 (0.0-0.012) X10*3/uL Nucleated RBC % (auto) 0.0 (0.0-0.2) /100WBC Sodium 140 (135-145) mmol/L Potassium 3.2 L D (3.3-5.1) mmol/L Chloride 97 (96-108) mmol/L Carbon Dioxide 30 H (22-29) mmol/L Anion Gap 16 (12-20) BUN 36 H (9-16) mg/dL Creatinine 1.32 (0.5-1.4) mg/dL Estim Creat Clear Calc 40.9 Estimated GFR 39 Random Glucose 111 (60-115) mg/dL Calcium 9.5 (8.4-10.2) mg/dL Magnesium 1.5 L (1.6-2.6) mg/dL Total Bilirubin 1.0 (0.0-1.0) mg/dL Direct Bilirubin 0.4 (0.0-0.5) mg/dL AST 49 H (5-31) U/L ALT 30 (0-31) U/L Alkaline Phosphatase 171 H (39-117) U/L Troponin I High Sens 17.3 H (<3.5-17.0) ng/L B-Natriuretic Peptide 1863 H (<100) pg/mL Total Protein 6.7 (6.5-8.0) g/dL Albumin 4.2 (3.5-5.0) g/dL Discharge Plan Discharge Clinical Impression: Congestive heart failure Patient Disposition: Admitted As Inpatient Print Language: Cape Verdean
--- NOTE | 2024-10-21 15:09 | ECG_ITS ---
Test Reason : SOB Blood Pressure : */* mmHG Vent. Rate : 89 BPM Atrial Rate : * BPM P-R Int : * ms QRS Dur : 90 ms QT Int : 400 ms P-R-T Axes : * -72 -50 degrees QTcB Int : 486 ms Atrial fibrillation Left anterior fascicular block Nonspecific ST and T wave abnormality Abnormal ECG When compared with ECG of 06-Sep-2024 14:28, Nonspecific T wave abnormality now evident in Anterior leads Referred By: Rose Hilton Electronically Signed By: RUBEN HERNDON
[2024-10-21 15:51] LABS: MANUAL DIFF FLAG NO
[2024-10-21 15:52] LABS: Basophils Absolute Auto 0.1 X10*3/uL (0.0-0.2); Basophils Percent Auto 0.8 % (0-2); Eosinophils Absolute Auto 0.1 X10*3/uL (0.0-0.4); Eosinophils Percent Auto 1.2 % (0-4); Hematocrit 36.2 % (37.0-47.0); Hemoglobin 11.5 g/dl (12.0-16.0); Imm Gran Abs Auto 0.03 X10*3/uL (0.00-0.03); Imm Gran Pct Auto 0.4 % (0.0-0.4); Lymphocytes Absolute Auto 1.2 X10*3/uL (1.2-4.9); Lymphocytes Percent Auto 15.8 % (20-40); Mean Corpuscular HGB Conc 31.8 g/dl (31.0-35.0); Mean Corpuscular Hemoglobin 26.9 pg (27.0-33.0); Mean Corpuscular Volume 84.8 fL (80.0-98.0); Mean Platelet Volume 9.7 fL (9.4-12.3); Monocytes Absolute Auto 0.7 X10*3/uL (0.1-1.2); Neutrophils Absolute Auto 5.3 x10*3/uL (2.0-8.3); Neutrophils Percent Auto 72.8 % (45-73); Platelet Count 250 X10*3/uL (160-400); Red Blood Count 4.27 X10*6/uL (4.20-5.50); Red Cell Distribution Width 16.3 % (11.0-16.0); White Blood Count 7.3 X10*3/uL (4.8-10.8)
[2024-10-21 16:13] LABS: B Type Natriuretic Peptide 1863 pg/mL (<100)
[2024-10-21 16:15] LABS: Troponin-I High Sensitivity 17.3 ng/L (<3.5-17.0)
[2024-10-21 16:16] LABS: Alanine Aminotransferase 30 U/L (0-31); Albumin Level 4.2 g/dL (3.5-5.0); Alkaline Phosphatase 171 U/L (39-117); Anion Gap 16 (12-20); Aspartate Amino Transferase 49 U/L (5-31); Bilirubin Direct 0.4 mg/dL (0.0-0.5); Blood Urea Nitrogen 36 mg/dL (9-16); Calcium 9.5 mg/dL (8.4-10.2); Carbon Dioxide 30 mmol/L (22-29); Chloride 97 mmol/L (96-108); Creatinine Clr Calc Pharmacy 40.9; Estimated Glomerular Filt Rate 39; Glucose Random 111 mg/dL (60-115); Magnesium 1.5 mg/dL (1.6-2.6); Potassium 3.2 mmol/L (3.3-5.1); Sodium 140 mmol/L (135-145); Total Protein 6.7 g/dL (6.5-8.0)
--- OUTSIDE RECORDS SUMMARY | 2024-10-21 18:43 | XMS_ITS ---
Author Organization [facility] [place] Address [address] [place] [address] Care Team Providers Care Laboratory Miller Name Role Phone Bonilla BURGOS, Parul Primary Care Provider Unavail Renuka Majano Unavailable [phone] REASON FOR VISIT TAX EXPERT PPWK Entered Encounters Encounter Location Date Provider Diagnosis [address] [address] 08/24/2024 Renuka Loja Plan Of Treatment Next Appt Details Provider Name:Renuka dunn, 10/27/2024 10:30:00 AM, [address] [place], [address], Progress Notes * Yasmeen ANDREWSDOB:1945 (7 0 yo F)Acc No.[id number]:08/24/2024 Patient:?Yasmeen ANDREWS :1945???Age:79 Y???Sex:Female Address:[address] [place] [address], [place] [address] * true * Date:? Generated for Printi ng/Faroeg/eTransmitting on:?10/21/2024 06:43 PM EDT
--- OUTSIDE RECORDS SUMMARY | 2024-10-21 18:43 | XMS_ITS | Patient Health Record ---
Author Organization [facility] [place] [place] Address [address] [place] [address] Care Team Providers Care Forder Operator Name Role Phone Parul Crystal MD Primary Care Provider Unavail able Renuka Loja Unavailable [phone] Allergies Allergen (clinical drug ingredient) Drug/Non Drug Allergy documented on EMR Reaction Allergy Type Onset Date Status sulfamethoxazole / trimethoprim Bactrim Unknown Drug Allergy Active Reason For Referral Diagnosis 1 Pain in unspecified foot (M79.673) Referring Provider First Name Parul Referring Provider Last Name Bonilla [facility]erred Provider Renuka Loja Referred Address [address] [place], [place],[address], Referred Provider Specialty Podiatry Referral Priority Routine Social History Tobacco Use: Social History Observation [...] Negative Encounters Encounter Location Date Provider Diagnosis [facility] [address] [place] [address] 08/24/2024 Renuka Loja Plan Of Treatment Next Appt Details Provider Name:Renuka Nando dunn, 10/27/2024 10:30:00 AM, [address] [place], [address], Insurance Providers Payer Name Payer Address Payer Phone Subscriber Number Group Number Insured Name Patient Relationship to Insured Coverage Start Date Coverage End Date [facility] [address] [place] [phone] [id number] Yasmeen Andrews Self - patient is the insured Medical (General) History Medical History History ICD Code Anxiety Cataracts High Blood Pressure Lung disease Reflux ( GERD) Surgical History Surgery Date(Month/Year) partial hysterectomy 1973 appendectomy 1965
--- NOTE | 2024-10-21 18:46 | ED.SOB ---
HPI - SOB/Dyspnea General Chief Complaint: Dyspnea Stated Complaint: Loaded With Fluid, Shortness of Breath Time Seen by Provider: 10/21/24 18:11 History of Present Illness HPI Narrative: Patient is an 79 year old pleasant white female with history of chronic hypoxic respiratory failure due to COPD currently on 2 L of home oxygen, GERD, hypertension, mood disorder, hyperlipidemia, diastolic CHF, atrial fibrillation on Eliquis. Patient presents today with having increasing swelling to the lower extremity. Baseline is on 80 mg of Lasix. Patient decided on her own to increase the dose to 160 mg of Lasix nevertheless the swelling continue. Patient claims over the last week it has gotten worse. Came to the ED. Still has shortness of breath also getting worse. Patient is from home. Has a history of atrial fibrillation is currently on Eliquis. Has been compliant with her Eliquis she takes it twice a day without missing any doses at all. There is no chest pain there is no diaphoresis he does have a history of RSV infection she was treated in August. Been at home since. No longer smoke for the last 8 years. No fever no chills. No diaphoresis. Related Data Home Medications ?Medication ?Instructions ?Recorded ?Confirmed folic acid 1 mg tablet 1 mg PO DAILY 12/06/23 10/12/24 furosemide 40 mg tablet (Lasix) 40 mg PO BID 09/06/24 10/12/24 gabapentin 100 mg capsule 100 mg PO TID PRN Pain 09/07/24 10/12/24 rosuvastatin 5 mg tablet 5 mg PO BEDTIME 09/07/24 10/12/24 trolamine salicylate 10 % topical 1 appl topical DAILY PRN Pain 09/07/24 10/12/24 cream (Aspercreme) Previous Rx's ?Medication ?Instructions ?Recorded apixaban 5 mg tablet (Eliquis) 5 mg PO BID 90 days #180 tabs 12/15/23 levalbuterol HCl 1.25 mg/3 mL 1.25 mg (3 mL) inhalation Q4-6H 01/06/24 solution for nebulization PRN shortness of breath or wheezing 30 days #90 mL compr.stocking,knee,long,small #2 ea 01/08/24 pantoprazole 40 mg tablet,delayed 40 mg PO DAILY 90 days #90 tabs 05/04/24 release tiotropium bromide 2.5 2 puff inhalation DAILY copd, 30 06/01/24 mcg/actuation mist for inhalation days #4 grams (Spiriva Respimat) cholecalciferol (vitamin D3) 50 50 mcg PO DAILY 90 days #90 caps 06/11/24 mcg (2,000 unit) capsule fluticasone furoate 200 1 inh inhalation DAILY #60 ea 07/06/24 mcg-vilanterol 25 mcg/dose inhalation powder (Breo Ellipta) metoprolol succinate 100 mg 100 mg PO DAILY 90 days #90 tabs 08/05/24 tablet,extended release 24 hr cimetidine 400 mg tablet 400 mg PO BID 30 days #60 tabs 09/21/24 levalbuterol tartrate 45 2 puff inhalation Q4-6H PRN 10/09/24 mcg/actuation aerosol inhaler shortness of breath 30 days #15 grams lorazepam 0.5 mg tablet 0.5 mg PO TID PRN anxiety 30 days 10/19/24 #90 tabs Allergies Allergy/AdvReac Type Severity Reaction Status Date / Time Sulfa (Sulfonamide Allergy Intermediate nausea, Verified 10/21/24 15:09 Antibiotics) vomiting Review of Systems Review of Systems: Positive shortness of breath Yes all other systems are reviewed and are negative [facility] Past Medical History Attestation statement: The following information was validated with the patient. Medical History Respiratory failure with hypoxia Hypertension CHF (congestive heart failure) PAF (paroxysmal atrial fibrillation) Congestive heart failure Atrial fibrillation with rapid ventricular response Congestive heart failure Acute hypoxemic respiratory failure Encounter for cardioversion procedure Atrial fibrillation with RVR Acute exacerbation of congestive heart failure Acute on chronic hypoxic respiratory failure Acute HFrEF (heart failure with reduced ejection fraction) Chronic lung disease Skin lesion Dyslipidemia Cough due to DAISY inhibitor Neck pain GERD (gastroesophageal reflux disease) Aortic regurgitation Right hand pain Leg edema COPD (chronic obstructive pulmonary disease) Allergic rhinitis Anxiety Surgical History Carpal tunnel syndrome, right History of bilateral cataract extraction History of partial hysterectomy Family History Family History Father Medical history unknown Mother Medical history unknown Social History Social History Household Members: None Housing: Apartment Do you presently have visiting nurse or other home services: No Alcohol intake: current Alcohol intake frequency: a few times a week Alcohol type: other Patient Tobacco Use Status: Former Tobacco user Tobacco use type: Cigarette Smoked in Last 30 Days: No e-Cigarette/Vaping Use: Never Used Second Hand Smoke Exposure: Yes Use of substances other than those prescribed or required for medical reasons: No Advance Directives: No Advance Directives Information Provided: Yes Advance Directives Date on File: 08/25/20 service: No Current occupational status: retired Cognitive needs: No Hearing needs: No Vision needs: No Physical Exam Vital Signs: Vital Signs: Last Vital Signs Temp 97.3 F 10/21/24 15:07 Pulse 78 10/21/24 19:10 Resp 18 10/21/24 19:10 BP 147/85 H 10/21/24 19:10 Pulse Ox 100 10/21/24 19:10 O2 Del Method Nasal Cannula 10/21/24 19:10 O2 Flow Rate 2 10/21/24 19:10 Oxygen Flow Rate 2 10/21/24 15:07 BMI result Body Mass Index 43.7 Appearance: Alert. Oriented X3. No acute distress. Eyes: Pupils equal, round and reactive to light. ENT: Pharynx normal. Neck: Normal inspection. Neck supple. No lymph nodes noted. No crepitus CVS: Normal heart rate and rhythm. Pulses normal. Normal S1 and S2 Respiratory: No respiratory distress. Breath sounds normal. No Wheezing. No rales Abdomen: Soft and nontender. No rigidity. No distention. good BS x4 Skin: Skin warm and dry. Normal skin color. Normal skin turgor. Extremities: 2+ lower extremity edema. Neurovascular intact to all extremities. No Lacerations. No Rash Neuro: Oriented X 3. No motor deficit. No sensory deficit. Moving all extermities. No slurred speech Medications Administered Discontinued Medications Generic Name Dose Route Start Last Admin Trade Name Freq PRN Reason Stop Dose Admin Magnesium Sulfate 2 gm in 50 mls @ 150 mls/hr 10/21/24 18:56 10/21/24 19:09 Magnesium Sulfate/H2o IV 10/21/24 19:15 150 mls/hr ONCE ONE Administration Potassium Chloride 40 meq 10/21/24 18:45 10/21/24 19:07 Potassium Chloride Packet 20 Meq Packet PO 10/21/24 18:46 40 meq ONCE ONE Administration Medical Decision Making Medical Decision Making [facility] Narrative: History of diastolic heart failure baseline on Lasix. History of atrial fibrillation history of COPD patient's chest x-ray showed no acute infiltrate by my interpretation. Doppler of the lower extremity showed no DVTs. However patient does have significant edema in the lower extremity to a point she can not get around very well. Question secondary to CHF. Patient's electrolytes showed a slightly reduced potassium of 3.2. Will replete patient's magnesium as well. Will admit for further evaluation. Differential Diagnosis Differential Diagnoses: The differential diagnosis associated with the presentation includes Congestive heart failure, COPD Admission/Observation Consideration of admission/observation: Escalation of care including admission/observation considered Consult Healthcare Provider Management of the patient was discussed with: Hospitalist Lab Data [facility] Lab Attestation statement: I reviewed the patient's lab results. 10/21/24 15:45 10/21/24 15:45 Labs: Lab Results 10/21/24 Range/Units 15:45 WBC 7.3 (4.8-10.8) X10*3/uL RBC 4.27 (4.20-5.50) X10*6/uL Hgb 11.5 L (12.0-16.0) g/dl Hct 36.2 L (37.0-47.0) % MCV 84.8 (80.0-98.0) fL MCH 26.9 L (27.0-33.0) pg MCHC 31.8 (31.0-35.0) g/dl RDW 16.3 H (11.0-16.0) % Plt Count 250 (160-400) X10*3/uL MPV 9.7 (9.4-12.3) fL Immature Gran % (Auto) 0.4 (0.0-0.4) % Neut % (Auto) 72.8 (45-73) % Lymph % (Auto) 15.8 L (20-40) % [place] % (Auto) 9.0 (2-11) % Eos % (Auto) 1.2 (0-4) % Baso % (Auto) 0.8 (0-2) % Lymph # (Auto) 1.2 (1.2-4.9) X10*3/uL [place] # (Auto) 0.7 (0.1-1.2) X10*3/uL Eos # (Auto) 0.1 (0.0-0.4) X10*3/uL Baso # (Auto) 0.1 (0.0-0.2) X10*3/uL Abs Immat Gran (auto) 0.03 (0.00-0.03) X10*3/uL Absolute Neuts (auto) 5.3 (2.0-8.3) x10*3/uL Absolute Nucleated RBC 0.000 (0.0-0.012) X10*3/uL Nucleated RBC % (auto) 0.0 (0.0-0.2) /100WBC Sodium 140 (135-145) mmol/L Potassium 3.2 L D (3.3-5.1) mmol/L Chloride 97 (96-108) mmol/L Carbon Dioxide 30 H (22-29) mmol/L Anion Gap 16 (12-20) BUN 36 H (9-16) mg/dL Creatinine 1.32 (0.5-1.4) mg/dL Estim Creat Clear Calc 40.9 Estimated GFR 39 Random Glucose 111 (60-115) mg/dL Calcium 9.5 (8.4-10.2) mg/dL Magnesium 1.5 L (1.6-2.6) mg/dL Total Bilirubin 1.0 (0.0-1.0) mg/dL Direct Bilirubin 0.4 (0.0-0.5) mg/dL AST 49 H (5-31) U/L ALT 30 (0-31) U/L Alkaline Phosphatase 171 H (39-117) U/L Troponin I High Sens 17.3 H (<3.5-17.0) ng/L B-Natriuretic Peptide 1863 H (<100) pg/mL Total Protein 6.7 (6.5-8.0) g/dL Albumin 4.2 (3.5-5.0) g/dL Independent Interpretation I performed an independent interpretation of an: EKG (Atrial fibrillation heart rate is 90 QRS is normal QTC is normal no acute ST segment elevation) and Plain X-Ray (Chest x-ray showed no focal infiltrate) Radiology Impression Discussion of test interpretation with radiology: I have reviewed the radiologist's reading. External Record Review External record reviewed: Inpatient record and Outpatient record Chronic Conditions Congestive heart failure atrial fibrillation Social Determinants Patient?s care significantly limited by Social Determinants of Health including: Problems related to primary support group Discharge Plan Discharge Clinical Impression: Congestive heart failure Patient Disposition: Admitted As Inpatient Print Language: Nepali
[2024-10-21] MEDS: Potassium Chloride Packet 20 MEQ PACKET 40 MEQ PO (19:07)
[2024-10-21] MEDS: Magnesium Sulfate/H2O 2 GM/50 ML PIGGYBACK IV (19:09)
[2024-10-21 19:10] VITALS: BP 147/85; PULSE 78; RESP 18; O2SAT 100
--- NOTE | 2024-10-21 19:19 | PM.IMHP ---
History of Present Illness Date of Service: 10/21/24 Chief Complaint: Leg swelling 79-year-old female with a past medical history of HTN, HLD, CAD, HFpEF, COPD, chronic respiratory failure on 2 L of home oxygen, cervical radiculopathy, GERD, paroxysmal AFib on Eliquis presented to the hospital with a chief complaint of bilateral leg swelling. Patient reports that for the past couple weeks she has been having gradually increasing leg swelling causing difficulty ambulation. Denies any shortness with the dyspnea on exertion. Denies any orthopnea. Patient denies any chest pain or palpitations. Mentioned that she tried to increase her home Lasix dose but continued to have increasing legs willing hence presented to the ER for further evaluation. Denies any fever chills cough or sputum production. Denies any GI or symptoms. Review of all other systems is negative except mentioned above ER course: Per ER patient, patient noted of bilateral leg swelling; no evidence of cellulitis; patient is on Eliquis-less concern for DVT. [facility] Medical History Respiratory failure with hypoxia Hypertension CHF (congestive heart failure) PAF (paroxysmal atrial fibrillation) Congestive heart failure Atrial fibrillation with rapid ventricular response Congestive heart failure Acute hypoxemic respiratory failure Encounter for cardioversion procedure Atrial fibrillation with RVR Acute exacerbation of congestive heart failure Acute on chronic hypoxic respiratory failure Acute HFrEF (heart failure with reduced ejection fraction) Chronic lung disease Skin lesion Dyslipidemia Cough due to DAISY inhibitor Neck pain GERD (gastroesophageal reflux disease) Aortic regurgitation Right hand pain Leg edema COPD (chronic obstructive pulmonary disease) Allergic rhinitis Anxiety Family History Father Medical history unknown Mother Medical history unknown Surgical History Carpal tunnel syndrome, right History of bilateral cataract extraction History of partial hysterectomy Social History Household Members: None Housing: Apartment Do you presently have visiting nurse or other home services: No Alcohol intake: current Alcohol intake frequency: a few times a week Alcohol type: other Patient Tobacco Use Status: Former Tobacco user Tobacco use type: Cigarette Smoked in Last 30 Days: No e-Cigarette/Vaping Use: Never Used Second Hand Smoke Exposure: Yes Use of substances other than those prescribed or required for medical reasons: No Advance Directives: No Advance Directives Information Provided: Yes Advance Directives Date on File: 08/25/20 service: No Current occupational status: retired Cognitive needs: No Hearing needs: No Vision needs: No Meds Allergies Allergy/AdvReac Type Severity Reaction Status Date / Time Sulfa (Sulfonamide Allergy Intermediate nausea, Verified 10/21/24 15:09 Antibiotics) vomiting Active Medications: Current Medications Acetaminophen (Acetaminophen 325 Mg Tablet) 650 mg PO Q6H PRN PRN Reason: Pain, Mild 1-3,fever,headache Albuterol/Ipratropium (Albuterol/Iprat 2.5/0.5mg 3 Ml Ampul.Neb) 3 ml INHALE Q4H PRN PRN Reason: Shortness of Breath/Wheezing Calcium Carbonate (Calcium Carbonate 750 Mg Tab.Chew) 750 mg PO Q4H PRN PRN Reason: Heartburn Magnesium Hydroxide (Milk Of Magnesia 30 Ml Oral.Susp) 30 ml PO DAILY PRN PRN Reason: Constipation Melatonin (Melatonin 3 Mg Tablet) 6 mg PO BEDTIME PRN PRN Reason: Insomnia Sodium Chloride (0.9 % Sodium Chloride Flush 3 Ml Syringe) [facility] Medications ?Medication ?Instructions ?Recorded ?Confirmed ?Last Taken ?Type folic acid 1 mg tablet 1 mg PO DAILY 12/06/23 10/12/24 09/05/24 History furosemide 40 mg tablet (Lasix) 40 mg PO BID 09/06/24 10/12/24 09/06/24 History gabapentin 100 mg capsule 100 mg PO TID PRN Pain 09/07/24 10/12/24 Unknown History rosuvastatin 5 mg tablet 5 mg PO BEDTIME 09/07/24 10/12/24 09/06/24 History trolamine salicylate 10 % topical 1 appl topical DAILY PRN Pain 09/07/24 10/12/24 Unknown History cream (Aspercreme) Physical Exam Vital Signs and Narrative: Vital Signs: Last Vital Signs Temp 97.3 F 10/21/24 15:07 Pulse 78 10/21/24 19:10 Resp 18 10/21/24 19:10 BP 147/85 H 10/21/24 19:10 Pulse Ox 100 10/21/24 19:10 O2 Del Method Nasal Cannula 10/21/24 19:10 O2 Flow Rate 2 10/21/24 19:10 Oxygen Flow Rate 2 10/21/24 15:07 BMI result Body Mass Index 43.7 Gen: Appears be in no acute distress HEENT: NCAT, Moist mucosa. Pulmonary: Vesicular breath sounds, fair air entry CVS: Normal S1-S2 Abdomen: BS+, Soft, Nontender Extremities: Warm well perfused; 2+ pitting edema present Neuro: Alert and awake. Results Labs 10/21/24 15:45 10/21/24 15:45 Labs: Laboratory Results - last 24 hr 10/21/24 15:45 MCV 84.8 MCH 26.9 L MCHC 31.8 RDW 16.3 H Plt Count 250 MPV 9.7 Immature Gran % (Auto) 0.4 Neut % (Auto) 72.8 Lymph % (Auto) 15.8 L [place] % (Auto) 9.0 Eos % (Auto) 1.2 Baso % (Auto) 0.8 Lymph # (Auto) 1.2 [place] # (Auto) 0.7 Eos # (Auto) 0.1 Baso # (Auto) 0.1 Abs Immat Gran (auto) 0.03 Absolute Neuts (auto) 5.3 Absolute Nucleated RBC 0.000 Nucleated RBC % (auto) 0.0 Anion Gap 16 Estim Creat Clear Calc 40.9 Estimated GFR 39 Random Glucose 111 Calcium 9.5 Magnesium 1.5 L Total Bilirubin 1.0 Direct Bilirubin 0.4 AST 49 H ALT 30 Alkaline Phosphatase 171 H B-Natriuretic Peptide 1863 H Total Protein 6.7 Albumin 4.2 Imaging Radiologist's Impressions: Impressions Chest X-Ray 10/21/24 15:10 IMPRESSION: Cardiomegaly. Severe COPD without definite superimposed active disease. Electronically signed by: Abhijeet Pearl MD 10/21/2024 03:36 PM EDT RP Assessment and Plan (1) Congestive heart failure: Qualifiers: Heart failure type: diastolic Heart failure chronicity: acute on chronic Qualified Code(s): I50.33 - Acute on chronic diastolic (congestive) heart failure Status: Acute Plan 79-year-old female with a past medical history of HTN, HLD, CAD, HFpEF, COPD, chronic respiratory failure on 2 L of home oxygen, cervical radiculopathy, GERD, paroxysmal AFib on Eliquis presented to the hospital with a chief complaint of bilateral leg swelling. Concerning for acute on chronic HFpEF. Acute on chronic HFpEF: Bilateral leg swelling: Patient on Lasix 80 mg daily at home. Currently noted elevated creatinine-diuresis based on renal function Daily weights and I's and O's Cardiology consult GHAZAL: Patient baseline creatinine around 0.8 Creatinine on presentation is 1.3 Avoid nephrotoxins Monitor renal function while diuresing COPD: Patient on 2 L of home oxygen at baseline. Stable. Continue DuoNebs p.r.n. AFib: Rate controlled. Continue home Eliquis. DVT prophylaxis: Patient on Eliquis Code status: Full code Quality Stroke Does the patient have a stroke diagnosis?: No VTE Prior VTE?: No VTE Risk Level:: Medical - moderate - high VTE Device Contraindication: Treatment Not Indicated VTE Drug Contraindication: N/A - Med Ordered
[2024-10-21 20:00] VITALS: BP 147/85; PULSE 78; RESP 18; O2SAT 100
--- NOTE | 2024-10-21 20:25 | PHA.MEDREC ---
Pharmacy Consult ? Medication Reconciliation Pharmacy has completed the medication reconciliation. Spoke with patient at bedside. Pt knew medication as we went through a list. She takes Lasix 80mg BID, as she still has has edema with the prescribed 40mg BID. She states she takes half of the prescribed rosuvastin silvio to muscle pain, she takes 2.5mg nightly.
[2024-10-21] MEDS: Apixaban 5 MG TABLET PO (20:29)
[2024-10-21] MEDS: Melatonin 3 MG TABLET 6 MG PO (21:57)
[2024-10-21] MEDS: 0.9 % Sodium Chloride Flush 3 ML SYRINGE IVFLUSH (22:03)
[2024-10-22] VITALS (12 sets, daily range): BP systolic 119–145; BP diastolic 57–92; PULSE 86–102; RESP 16–20; TEMP 36.1–36.7; O2SAT 93–98; BMI 22.3
[2024-10-22] MEDS: Albuterol/Iprat 2.5/0.5MG 3 ML AMPUL.NEB INHALE (03:40)
[2024-10-22 08:08] LABS: Hematocrit 31.8 % (37.0-47.0); Hemoglobin 10.3 g/dl (12.0-16.0); Mean Corpuscular HGB Conc 32.4 g/dl (31.0-35.0); Mean Corpuscular Hemoglobin 27.3 pg (27.0-33.0); Mean Corpuscular Volume 84.4 fL (80.0-98.0); Mean Platelet Volume 10.3 fL (9.4-12.3); Platelet Count 223 X10*3/uL (160-400); Red Blood Count 3.77 X10*6/uL (4.20-5.50); Red Cell Distribution Width 16.5 % (11.0-16.0); White Blood Count 6.6 X10*3/uL (4.8-10.8)
[2024-10-22 08:28] LABS: Alanine Aminotransferase 25 U/L (0-31); Albumin Level 3.5 g/dL (3.5-5.0); Alkaline Phosphatase 129 U/L (39-117); Anion Gap 13 (12-20); Aspartate Amino Transferase 41 U/L (5-31); Bilirubin Total 0.8 mg/dL (0.0-1.0); Blood Urea Nitrogen 30 mg/dL (9-16); Calcium 8.9 mg/dL (8.4-10.2); Carbon Dioxide 30 mmol/L (22-29); Chloride 102 mmol/L (96-108); Creatinine Clr Calc Pharmacy 41.2; Estimated Glomerular Filt Rate > 60; Glucose Random 96 mg/dL (60-115); Potassium 3.2 mmol/L (3.3-5.1); Sodium 142 mmol/L (135-145); Total Protein 5.6 g/dL (6.5-8.0)
[2024-10-22] MEDS: Fluticasone/Vilanterol 200/25 BLST.W.DEV 1 PUFF INHALE (08:44)
[2024-10-22] MEDS: Tiotropium Bromide 2.5 mcg 1 PUFF/2.5 MCG MIST.INHAL 2 PUFF INHALE (08:44)
--- NOTE | 2024-10-22 09:16 | MHC.CM.PN ---
IMM 10/22/24, Pt lives alone, she does not have home health services. For DME, she has home O2 and a nebulizer. HCP is her dtr Brii, copy requested. PCP confirmed: Parul Williamson. Family to transport home at DC, DCP: home, self care. CM to follow for DC needs.
--- NOTE | 2024-10-22 09:25 | P.CONCA_ITS ---
History of Present Illness History of Present Illness Date of Service: 10/22/24 Chief complaint: Acute CHF Exacerbation Narrative: This is a cardiology consultation regarding shortness of breath. Generally seen by . According to his notes, patient was seen in the hospital in 2023 when she had congestive heart failure with atrial fibrillation/rapid rate. She also apparently had diffuse T inversions. Echocardiogram had shown LAD wall motion abnormality. Then she went for cardiac catheterization but no significant disease and she was thought to have takotsubo cardiomyopathy. In the repeat echocardiogram, some improvement in LVEF to 45-50%. Per notes, patient has had cardioversion and then had maintain sinus rhythm and was on anticoagulation. She also has COPD and on home oxygen. It seems that she does have chronic shortness of breath with activity. However, currently, it is more than usual and she has also been noticing lower extremity swelling and that led to ER visit. Today she is not having any swelling but she states that it was indeed swollen up when she arrived. Review of Systems 2 Review of Systems: Yes all other systems are reviewed and are negative Constitutional: Constitutional: Reports as per HPI and Reports no additional constitutional complaints Eyes: Eyes: Reports as per HPI and Denies no additional eye complaints ENT: Denies system reviewed and no additional complaints, except as documented and Reports as per HPI Cardiovascular: Cardiovascular: Reports as per HPI, Reports no additional cardiovascular complaints, Denies acrocyanosis, Denies cool extremities, Denies chest pain, Reports leg edema, Denies lightheadedness, Denies palpitations and Reports dyspnea Respiratory: Respiratory: Reports as per HPI, Denies no additional respiratory complaints and Reports dyspnea Gastrointestinal: Gastrointestinal: Reports as per HPI and Denies no additional gastrointestinal complaints Genitourinary: Genitourinary: Reports as per HPI Musculoskeletal: Musculoskeletal: Reports no additional musculoskeletal complaints and Reports as per HPI Integumentary/Breasts: Skin/Breast: Reports system reviewed and no additional complaints, except as docu Neurologic: Reports system reviewed and no additional complaints, except as documented and Reports as per HPI Psychiatric: Psychiatric: Reports no additional psychiatric complaints and Reports as per HPI Endocrine: Endocrine: Reports no additional endocrine complaints, Reports as per HPI and Denies palpitations Hematologic/Lymphatic: Hematologic/Lymphatic: Reports no additional hematologic/lymphatic complaints and Reports as per HPI Allergic/Immunologic: Allergic/Immunologic: Reports no additional allergic/immunologic complaints and Reports as per HPI [facility] Past Medical History Medical History Respiratory failure with hypoxia Hypertension CHF (congestive heart failure) PAF (paroxysmal atrial fibrillation) Congestive heart failure Atrial fibrillation with rapid ventricular response Congestive heart failure Acute hypoxemic respiratory failure Encounter for cardioversion procedure Atrial fibrillation with RVR Acute exacerbation of congestive heart failure Acute on chronic hypoxic respiratory failure Acute HFrEF (heart failure with reduced ejection fraction) Chronic lung disease Skin lesion Dyslipidemia Cough due to DAISY inhibitor Neck pain GERD (gastroesophageal reflux disease) Aortic regurgitation Right hand pain Leg edema COPD (chronic obstructive pulmonary disease) Allergic rhinitis Anxiety Family History Family History Father Medical history unknown Mother Medical history unknown Surgical History Surgical History Carpal tunnel syndrome, right History of bilateral cataract extraction History of partial hysterectomy Social History Social History Household Members: None Housing: House Do you presently have visiting nurse or other home services: No Alcohol intake: current Alcohol intake frequency: a few times a week Alcohol type: other Patient Tobacco Use Status: Former Tobacco user Tobacco use type: Cigarette Smoked in Last 30 Days: No e-Cigarette/Vaping Use: Never Used Second Hand Smoke Exposure: Yes Use of substances other than those prescribed or required for medical reasons: No Currently Displaying Signs/Symptoms of Drug Intoxication Withdrawal: No Have you been hit, kicked, punched, or otherwise hurt by someone within the past year? If so, by whom?: No Do you feel safe in your current relationship?: No Current Relationship Is there a partner from a previous relationship who is making you feel unsafe now?: No Are you made to feel afraid or neglected: No Advance Directives: No Advance Directives Information Provided: Yes Advance Directives on File: No Advance Directives Date on File: 08/25/20 Do you have a plan to hurt others: No Plan Recently lost weight without trying: No Nutrition Risks: No Nutritional Risk Patient : No : No service: No Current occupational status: retired Cognitive needs: No Hearing needs: No Vision needs: No Meds Allergies Allergy/AdvReac Type Severity Reaction Status Date / Time Sulfa (Sulfonamide Allergy Intermediate nausea, Verified 10/21/24 15:09 Antibiotics) vomiting Active Medications: Current Medications Acetaminophen (Acetaminophen 325 Mg Tablet) 650 mg PO Q6H PRN PRN Reason: Pain, Mild 1-3,fever,headache Albuterol/Ipratropium (Albuterol/Iprat 2.5/0.5mg 3 Ml Ampul.Neb) 3 ml INHALE Q4H PRN PRN Reason: Shortness of Breath/Wheezing Last Admin: 10/22/24 03:40 Dose: 3 ml Apixaban (Apixaban 5 Mg Tablet) 5 mg PO BID [facility] Last Admin: 10/21/24 20:29 Dose: 5 mg Atorvastatin Calcium (Atorvastatin Calcium 10 Mg Tablet) 10 mg PO DAILY [facility] Calcium Carbonate (Calcium Carbonate 750 Mg Tab.Chew) 750 mg PO Q4H PRN PRN Reason: Heartburn Cyanocobalamin (Cyanocobalamin (Vitamin B-12) 100 Mcg Tablet) 100 mcg PO DAILY [facility] Fluticasone/Vilanterol (Fluticasone/Vilanterol 200/25 Blst.W.Dev) 1 puff INHALE RDAILY [facility] Last Admin: 10/22/24 08:44 Dose: 1 puff Folic Acid (Folic Acid 1 Mg Tablet) 1 mg PO DAILY [facility] Furosemide (Furosemide 40 Mg Tablet) 80 mg PO BID [facility]; Protocol Gabapentin (Gabapentin 100 Mg Capsule) 100 mg PO TID PRN PRN Reason: Pain, Moderate(Pain Scale 4-6) Lorazepam (Lorazepam 0.5 Mg Tablet) 0.5 mg PO TID PRN PRN Reason: anxiety Magnesium Hydroxide (Milk Of Magnesia 30 Ml Oral.Susp) 30 ml PO DAILY PRN PRN Reason: Constipation Melatonin (Melatonin 3 Mg Tablet) 6 mg PO BEDTIME PRN PRN Reason: Insomnia Last Admin: 10/21/24 21:57 Dose: 6 mg Metoprolol Succinate (Metoprolol Succinate Er 100 Mg Tab.Er.24h) 100 mg PO DAILY [facility]; Protocol Omeprazole (Omeprazole 20 Mg Capsule.Dr) 20 mg PO DAILY@0630 [facility] Sodium Chloride (0.9 % Sodium Chloride Flush 3 Ml Syringe) 3 ml IVFLUSH QSHIFT [facility] Last Admin: 10/21/24 22:03 Dose: 3 ml Tiotropium [place] (Tiotropium [place] 2.5 Mcg 1 Puff/2.5 Mcg Mist.Inhal) 2 puff INHALE RDAILY [facility] Last Admin: 10/22/24 08:44 Dose: 2 puff Vitamin D (Cholecalciferol (Vitamin D3) 25 Mcg Tablet) 50 mcg PO DAILY [facility] Home Medications ?Medication ?Instructions ?Recorded ?Confirmed ?Last Taken ?Type furosemide 40 mg tablet (Lasix) 80 mg PO BID 09/06/24 10/21/24 10/21/24 History gabapentin 100 mg capsule 100 mg PO TID PRN Pain 09/07/24 10/21/24 Unknown History rosuvastatin 5 mg tablet 2.5 mg PO BEDTIME 09/07/24 10/21/24 10/20/24 History trolamine salicylate 10 % topical 1 appl topical DAILY PRN Pain 09/07/24 10/21/24 Unknown History cream (Aspercreme) cyanocobalamin (vitamin B-12) 100 100 mcg PO DAILY 10/21/24 10/21/24 10/21/24 History mcg tablet (Vitamin B-12) folic acid 800 mcg tablet 0.8 mg PO DAILY 10/21/24 10/21/24 10/21/24 History pantoprazole 40 mg tablet,delayed 40 mg PO DAILY@0630 10/21/24 10/21/24 10/21/24 History release Physical Exam 2 Vital Signs: Vital Signs: Last Vital Signs Temp 98.1 F 10/22/24 07:44 Pulse 95 10/22/24 08:48 Resp 20 10/22/24 08:48 BP 143/67 H 10/22/24 07:44 Pulse Ox 95 10/22/24 07:44 O2 Del Method Nasal Cannula 10/22/24 07:44 O2 Flow Rate 2 10/22/24 07:44 Oxygen Flow Rate 2 10/21/24 15:07 BMI result Body Mass Index 22.3 Const: General: comfortable and no acute distress O rientation/consciousness: patient oriented x3 HEENT: Other: Unremarkable Head: Yes normal to inspection Neck: Neck: Yes normal visual inspection Chest: Chest palpation & inspection: normal inspection of the chest Resp: Auscultation: rhonchi and diminished lung sounds Cardio: Palpation: normal PMI Heart sounds: S1 normal heart sound present, S2 normal heart sound present, no gallops, no murmurs and no rubs GI: Palpation (GI): Soft to palpation Back/Spine/Pelvis: Other: unremarkable Skin: General skin exam: no rashes or lesions noted Neuro: General: patient oriented x3 Extrem: Other: No significant edema General: Yes normal to inspection Psych: Mental Status: mental status grossly normal Objective Labs and Meds 10/22/24 06:57 10/22/24 06:57 Lab results: Laboratory Results - last 24 hr 10/21/24 10/22/24 15:45 06:57 WBC 7.3 6.6 RBC 4.27 3.77 L Hgb 11.5 L 10.3 L Hct 36.2 L 31.8 L MCV 84.8 84.4 MCH 26.9 L 27.3 MCHC 31.8 32.4 RDW 16.3 H 16.5 H Plt Count 250 223 MPV 9.7 10.3 Immature Gran % (Auto) 0.4 Neut % (Auto) 72.8 Lymph % (Auto) 15.8 L [place] % (Auto) 9.0 Eos % (Auto) 1.2 Baso % (Auto) 0.8 Lymph # (Auto) 1.2 [place] # (Auto) 0.7 Eos # (Auto) 0.1 Baso # (Auto) 0.1 Abs Immat Gran (auto) 0.03 Absolute Neuts (auto) 5.3 Absolute Nucleated RBC 0.000 0.000 Nucleated RBC % (auto) 0.0 0.0 Sodium 140 142 Potassium 3.2 L D 3.2 L Chloride 97 102 Carbon Dioxide 30 H 30 H Anion Gap 16 13 BUN 36 H 30 H Creatinine 1.32 0.90 Estim Creat Clear Calc 40.9 41.2 Estimated GFR 39 > 60 Random Glucose 111 96 Calcium 9.5 8.9 D Magnesium 1.5 L Total Bilirubin 1.0 0.8 Direct Bilirubin 0.4 AST 49 H 41 H ALT 30 25 Alkaline Phosphatase 171 H 129 H Troponin I High Sens 17.3 H B-Natriuretic Peptide 1863 H Total Protein 6.7 5.6 L Albumin 4.2 3.5 ECG Interpretation: EKG with atrial fibrillation at a rate of 89/Min; leftward axis; nonspecific ST- T changes. Imaging Radiologist's impression: Impressions Chest X-Ray 10/21/24 15:10 IMPRESSION: Cardiomegaly. Severe COPD without definite superimposed active disease. Electronically signed by: Abhijeet Pearl MD 10/21/2024 03:36 PM EDT RP Assessment and Plan (1) Acute on chronic heart failure with preserved ejection fraction: Status: Acute (2) Persistent atrial fibrillation: Status: Acute (3) COPD (chronic obstructive pulmonary disease): Status: Acute Plan EKG from August shows atrial fibrillation. Prior to that, EKGs from last December that shows sinus rhythm. Hence not clear when she went into atrial fibrillation. Cardiac BNP is elevated but lower than last year. Last echocardiogram with LVEF of 60-65%. At least moderate biatrial enlargement. Mild mitral/aortic regurgitation. Severe pulmonary hypertension with mildly elevated right atrial pressures. Chest x-ray with cardiomegaly, severe COPD, increased fine interstitial markings. Overall, probably multifactorial etiology for symptoms of shortness of breath/leg swelling. Shortness of breath itself is likely from COPD plus atrial fibrillation and related diastolic heart failure. With regard to leg swelling, could be a cor pulmonale type presentation related to COPD. With regard to diuretics, she states that she takes Lasix 80 mg b.i.d. and she is still swollen up. We can try to switch to torsemide and see how that goes. With regard to atrial fibrillation, she has failed cardioversion. She is not a good candidate for rhythm control because of advanced COPD/oxygen-dependent state. Do not think it is worth attempting another cardioversion. Correct electrolytes. We will follow up with you. Discussed with Dr. Aviles. Procedures Date of Service Date of Service: 10/22/24
[2024-10-22] MEDS: Apixaban 5 MG TABLET PO ×2 (09:50→21:46)
[2024-10-22] MEDS: Cholecalciferol (Vitamin D3) 25 MCG TABLET 50 MCG PO (09:50)
[2024-10-22] MEDS: Atorvastatin Calcium 10 MG TABLET PO (09:50)
[2024-10-22] MEDS: Folic Acid 1 MG TABLET PO (09:50)
[2024-10-22] MEDS: LORazepam 0.5 MG TABLET PO ×2 (09:50→21:45)
[2024-10-22] MEDS: Metoprolol Succinate ER 100 MG TAB.ER.24H PO (09:50)
[2024-10-22] MEDS: Potassium Chloride ER 20 MEQ TAB.ER.PRT 40 MEQ PO (09:51)
[2024-10-22] MEDS: 0.9 % Sodium Chloride Flush 3 ML SYRINGE IVFLUSH ×2 (09:51→16:16)
[2024-10-22] MEDS: Furosemide 40 MG TABLET 80 MG PO (09:51)
[2024-10-22] MEDS: Cyanocobalamin (Vitamin B-12) 100 MCG TABLET PO (09:51)
--- NOTE | 2024-10-22 11:40 | HO.PM.IMPN ---
Subjective Subjective Date of Service: 10/22/24 Interval History: sob, difficulty amblating, improved edema Physical Exam Vital Signs: Vital Signs: Last Vital Signs Temp 98.1 F 10/22/24 07:44 Pulse 95 10/22/24 09:52 Resp 20 10/22/24 08:48 BP 143/67 H 10/22/24 09:52 Pulse Ox 95 10/22/24 09:52 O2 Del Method Nasal Cannula 10/22/24 07:44 O2 Flow Rate 2 10/22/24 07:44 Oxygen Flow Rate 2 10/21/24 15:07 BMI result Body Mass Index 22.3 General: AO X 3, no acute distress Resp: diminshed bilateral, no accessory muscles used CVS: S1,S2,RRR GI: soft, non tender, non distended Neuro: motor grossly intact, alert Psych: appropriate affect, appropriate insight Objective Data Active Medications Acetaminophen (Acetaminophen 325 Mg Tablet) 650 mg PO Q6H PRN PRN Reason: Pain, Mild 1-3,fever,headache Albuterol/Ipratropium (Albuterol/Iprat 2.5/0.5mg 3 Ml Ampul.Neb) 3 ml INHALE Q4H PRN PRN Reason: Shortness of Breath/Wheezing Last Admin: 10/22/24 03:40 Dose: 3 ml Documented By: CHIOMA Apixaban (Apixaban 5 Mg Tablet) 5 mg PO BID FORMERLY [facility], [facility] Last Admin: 10/22/24 09:50 Dose: 5 mg Documented By: GILLES Atorvastatin Calcium (Atorvastatin Calcium 10 Mg Tablet) 10 mg PO DAILY FOR[facility]LY [facility], [facility]1983 Last Admin: 10/22/24 09:50 Dose: 10 mg Documented By: GILLES Calcium Carbonate (Calcium Carbonate 750 Mg Tab.Chew) 750 mg PO Q4H PRN PRN Reason: Heartburn Cyanocobalamin (Cyanocobalamin (Vitamin B-12) 100 Mcg Tablet) 100 mcg PO DAILY FOR[facility]LY [facility], [facility] Last Admin: 10/22/24 09:51 Dose: 100 mcg Documented By: GILLES Fluticasone/Vilanterol (Fluticasone/Vilanterol 200/25 Blst.W.Dev) 1 puff INHALE RDAILY FOR[facility]LY [facility], [facility]–1983 Last Admin: 10/22/24 08:44 Dose: 1 puff Documented By: JOSLYN Folic Acid (Folic Acid 1 Mg Tablet) 1 mg PO DAILY FOR[facility]LY [facility], [facility] Last Admin: 10/22/24 09:50 Dose: 1 mg Documented By: GILLES Gabapentin (Gabapentin 100 Mg Capsule) 100 mg PO TID PRN PRN Reason: Pain, Moderate(Pain Scale 4-6) Lorazepam (Lorazepam 0.5 Mg Tablet) 0.5 mg PO TID PRN PRN Reason: anxiety Last Admin: 10/22/24 09:50 Dose: 0.5 mg Documented By: GILLES Magnesium Hydroxide (Milk Of Magnesia 30 Ml Oral.Susp) 30 ml PO DAILY PRN PRN Reason: Constipation Melatonin (Melatonin 3 Mg Tablet) 6 mg PO BEDTIME PRN PRN Reason: Insomnia Last Admin: 10/21/24 21:57 Dose: 6 mg Documented By: MECHE Metoprolol Succinate (Metoprolol Succinate Er 100 Mg Tab.Er.24h) 100 mg PO DAILY FOR[facility]LY [facility], [facility]; Protocol Last Admin: 10/22/24 09:50 Dose: 100 mg Documented By: GILLES Omeprazole (Omeprazole 20 Mg Capsule.Dr) 20 mg PO DAILY@0630 FOR[facility], [facility]–1983 Sodium Chloride (0.9 % Sodium Chloride Flush 3 Ml Syringe) 3 ml IVFLUSH QSHIFT FOR[facility], [facility] Last Admin: 10/22/24 09:51 Dose: 3 ml Documented By: GILLES Tiotropium [place] (Tiotropium [place] 2.5 Mcg 1 Puff/2.5 Mcg Mist.Inhal) 2 puff INHALE RDAILY [facility], [facility]–1983 Last Admin: 10/22/24 08:44 Dose: 2 puff Documented By: YANICKSNE Torsemide (Torsemide 20 Mg Tablet) 40 mg PO BID [facility], [facility]; Protocol Vitamin D (Cholecalciferol (Vitamin D3) 25 Mcg Tablet) 50 mcg PO DAILY [facility], [facility] Last Admin: 10/22/24 09:50 Dose: 50 mcg Documented By: GILLES Labs 10/22/24 06:57 10/22/24 06:57 Labs: Laboratory Results - last 24 hr 10/21/24 10/22/24 15:45 06:57 MCV 84.8 84.4 MCH 26.9 L 27.3 MCHC 31.8 32.4 RDW 16.3 H 16.5 H Plt Count 250 223 MPV 9.7 10.3 Immature Gran % (Auto) 0.4 Neut % (Auto) 72.8 Lymph % (Auto) 15.8 L [place] % (Auto) 9.0 Eos % (Auto) 1.2 Baso % (Auto) 0.8 Lymph # (Auto) 1.2 [place] # (Auto) 0.7 Eos # (Auto) 0.1 Baso # (Auto) 0.1 Abs Immat Gran (auto) 0.03 Absolute Neuts (auto) 5.3 Absolute Nucleated RBC 0.000 0.000 Nucleated RBC % (auto) 0.0 0.0 Anion Gap 16 13 Estim Creat Clear Calc 40.9 41.2 Estimated GFR 39 > 60 Random Glucose 111 96 Calcium 9.5 8.9 D Magnesium 1.5 L Total Bilirubin 1.0 0.8 Direct Bilirubin 0.4 AST 49 H 41 H ALT 30 25 Alkaline Phosphatase 171 H 129 H B-Natriuretic Peptide 1863 H Total Protein 6.7 5.6 L Albumin 4.2 3.5 Assessment and Plan (1) Afib: Status: Acute Plan 79F PMH chronic hypoxic respiratory failure on 2 L home O2 due to severe COPD, hypertension, hyperlipidemia, 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 Acute on chronic CHF with recovered ejection fraction/cor pulmonale due to severe COPD with chronic hypoxic respiratory failure Cardiology appreciated, furosemide changed to torsemide PT eval Continue metoprolol Chronic AFib Metoprolol, apixaban DVT prophylaxis on apixaban Full code reason for continued hospitalization: Shortness breath, difficulty ambulating Quality Stroke Does the patient have a stroke diagnosis?: No VTE Prior VTE?: No VTE Risk Level:: Medical - moderate - high VTE Device Contraindication: Treatment Not Indicated VTE Drug Contraindication: N/A - Med Ordered
[2024-10-22] MEDS: Torsemide 20 MG TABLET 40 MG PO (21:43)
[2024-10-22] MEDS: Gabapentin 100 MG CAPSULE PO (21:46)
[2024-10-23] MEDS: 0.9 % Sodium Chloride Flush 3 ML SYRINGE IVFLUSH
[2024-10-23 03:15] VITALS: BP 138/65; PULSE 87; RESP 18; TEMP 36.4; O2SAT 94
[2024-10-23 06:00] VITALS: BMI 22.3
[2024-10-23] MEDS: Omeprazole 20 MG CAPSULE.DR PO (06:00)
[2024-10-23 07:27] LABS: Hematocrit 31.4 % (37.0-47.0); Mean Corpuscular HGB Conc 31.8 g/dl (31.0-35.0); Mean Corpuscular Hemoglobin 26.7 pg (27.0-33.0); Mean Platelet Volume 10.1 fL (9.4-12.3); Platelet Count 196 X10*3/uL (160-400); Red Blood Count 3.74 X10*6/uL (4.20-5.50); Red Cell Distribution Width 16.3 % (11.0-16.0); White Blood Count 8.2 X10*3/uL (4.8-10.8)
[2024-10-23] MEDS: Tiotropium Bromide 2.5 mcg 1 PUFF/2.5 MCG MIST.INHAL 2 PUFF INHALE (07:38)
[2024-10-23] MEDS: Fluticasone/Vilanterol 200/25 BLST.W.DEV 1 PUFF INHALE (07:38)
[2024-10-23 07:43] VITALS: PULSE 80; RESP 18; O2SAT 97
[2024-10-23 07:44] VITALS: BP 140/63; PULSE 88; RESP 17; TEMP 36.2; O2SAT 91
[2024-10-23 08:01] LABS: Anion Gap 11 (12-20); Blood Urea Nitrogen 19 mg/dL (9-16); Calcium 8.6 mg/dL (8.4-10.2); Carbon Dioxide 32 mmol/L (22-29); Chloride 100 mmol/L (96-108); Creatinine Clr Calc Pharmacy 50.2; Estimated Glomerular Filt Rate > 60; Glucose Random 99 mg/dL (60-115); Magnesium 1.4 mg/dL (1.6-2.6); Sodium 140 mmol/L (135-145)
[2024-10-23] MEDS: Folic Acid 1 MG TABLET PO (08:39)
[2024-10-23] MEDS: Atorvastatin Calcium 10 MG TABLET PO (08:39)
[2024-10-23] MEDS: Magnesium Oxide 400 MG TABLET PO (08:39)
[2024-10-23] MEDS: Cholecalciferol (Vitamin D3) 25 MCG TABLET 50 MCG PO (08:39)
[2024-10-23] MEDS: Apixaban 5 MG TABLET PO (08:39)
[2024-10-23] MEDS: Metoprolol Succinate ER 100 MG TAB.ER.24H PO (08:40)
[2024-10-23] MEDS: Torsemide 20 MG TABLET 40 MG PO (08:40)
[2024-10-23] MEDS: Magnesium Sulfate/H2O 2 GM/50 ML PIGGYBACK IV (08:40)
[2024-10-23] MEDS: Cyanocobalamin (Vitamin B-12) 100 MCG TABLET PO (08:40)
[2024-10-23] MEDS: Potassium Chloride Packet 20 MEQ PACKET 40 MEQ PO (08:50)
[2024-10-23] MEDS: guaiFENesin 100 MG/5 ML 5 ML LIQUID PO (08:58)
--- NOTE | 2024-10-23 10:10 | PM.PNCARD ---
Subjective Subjective Date of Service: 10/23/24 Interval history: Patient states that she is feeling better. Shortness of breath is improving. Leg swelling is also better. Review of Systems Review of Systems Yes all other systems are reviewed and are negative Constitutional: Reports as per HPI and Reports no additional constitutional complaints Eyes: Reports as per HPI and Denies no additional eye complaints Denies system reviewed and no additional complaints, except as documented and Reports as per HPI Cardiovascular: Reports as per HPI, Reports no additional cardiovascular complaints, Denies acrocyanosis, Denies cool extremities, Denies chest pain, Denies leg edema, Denies lightheadedness, Denies palpitations and Reports dyspnea Respiratory: Reports as per HPI, Denies no additional respiratory complaints and Reports dyspnea Gastrointestinal: Reports as per HPI and Denies no additional gastrointestinal complaints Genitourinary: Reports as per HPI Musculoskeletal: Reports no additional musculoskeletal complaints and Reports as per HPI Skin/Breast: Reports system reviewed and no additional complaints, except as docu Reports system reviewed and no additional complaints, except as documented and Reports as per HPI Psychiatric: Reports no additional psychiatric complaints and Reports as per HPI Endocrine: Reports no additional endocrine complaints, Reports as per HPI and Denies palpitations Hematologic/Lymphatic: Reports no additional hematologic/lymphatic complaints and Reports as per HPI Allergic/Immunologic: Reports no additional allergic/immunologic complaints and Reports as per HPI Physical Exam Vital Signs: Last Vital Signs Temp 97.1 F 10/23/24 07:44 Pulse 88 10/23/24 07:44 Resp 17 10/23/24 07:44 BP 140/63 H 10/23/24 07:44 Pulse Ox 91 L 10/23/24 07:44 O2 Del Method Nasal Cannula 10/23/24 07:44 O2 Flow Rate 2 10/23/24 07:44 Oxygen Flow Rate 2 10/21/24 15:07 BMI result Body Mass Index 22.3 Const General: comfortable and no acute distress Orientation/consciousness: patient oriented x3 HEENT Other: Unremarkable Head: Yes normal to inspection Neck Neck: Yes normal visual inspection Chest Chest palpation & inspection: normal inspection of the chest Resp Auscultation: clear to auscultation bilaterally Cardio Palpation: normal PMI Heart sounds: S1 normal heart sound present, S2 normal heart sound present, no gallops, no murmurs and no rubs GI Palpation (GI): Soft to palpation Back/Spine/Pelvis Other: unremarkable Skin General skin exam: no rashes or lesions noted Neuro General: patient oriented x3 Extrem General: Yes normal to inspection Psych Mental Status: mental status grossly normal Objective Labs and Meds 10/23/24 06:56 10/23/24 06:56 Lab results: Laboratory Results - last 24 hr 10/23/24 06:56 WBC 8.2 RBC 3.74 L Hgb 10.0 L Hct 31.4 L MCV 84.0 MCH 26.7 L MCHC 31.8 RDW 16.3 H Plt Count 196 MPV 10.1 Absolute Nucleated RBC 0.000 Nucleated RBC % (auto) 0.0 Sodium 140 Potassium 3.0 L Chloride 100 Carbon Dioxide 32 H Anion Gap 11 L BUN 19 H Creatinine 0.74 Estim Creat Clear Calc 50.2 Estimated GFR > 60 Random Glucose 99 Calcium 8.6 Magnesium 1.4 L* Progress Note: A&P Assessment and plan (1) Acute on chronic heart failure with preserved ejection fraction: Status: Acute (2) Persistent atrial fibrillation: Status: Acute (3) COPD (chronic obstructive pulmonary disease): Status: Acute Plan EKG from August shows atrial fibrillation. Prior to that, EKGs from last December that shows sinus rhythm. Hence not clear when she went into atrial fibrillation. Cardiac BNP is elevated but lower than last year. Last echocardiogram with LVEF of 60-65%. At least moderate biatrial enlargement. Mild mitral/aortic regurgitation. Severe pulmonary hypertension with mildly elevated right atrial pressures. Chest x-ray with cardiomegaly, severe COPD, increased fine interstitial markings. Overall, probably multifactorial etiology for symptoms of shortness of breath/leg swelling. Shortness of breath itself is likely from COPD plus atrial fibrillation and related diastolic heart failure. With regard to leg swelling, could be a cor pulmonale type presentation related to COPD. We have switched her diuretics from Lasix 80 mg b.i.d. to torsemide as she is not responding well to the Lasix. With regard to the atrial fibrillation, prior cardioversion but reverted to sinus. It does not appear that she was on any antiarrhythmics. With severe COPD history, oxygen dependence, not a great candidate for cardioversion or ablation. We discussed about this today. Further discussion can be done with primary special education instructor. Correct electrolytes aggressively. Discussed with daughter at the bedside. Discussed with Dr. Moreno. Time Spent With Patient Time: Total time managing care of this patient today ____ minutes. Progress Note: Quality Stroke Does the patient have a stroke diagnosis?: No Procedures Date of Service Date of Service: 10/23/24
[2024-10-23 10:31] VITALS: BP 140/63; PULSE 88; O2SAT 91
--- NOTE | 2024-10-23 10:46 | PM.DS ---
DS: Providers Provider Date of Service: 10/23/24 Date of admission: 10/21/24 19:16 Date of discharge: 10/23/24 Primary care physician: Parul Williamson MD Consults: 10/21/24 19:16 Consult to Cardiology Routine Consulting Provider: [facility] [place] [facility] Reason for consultation: acute hfpef DS: Diagnosis Discharge Diagnosis (1) Acute on chronic heart failure with preserved ejection fraction: Status: Acute (2) Persistent atrial fibrillation: Status: Acute (3) COPD (chronic obstructive pulmonary disease): Status: Acute DS: Summary Hospital Course Hospital Course: from initial hpi: 79-year-old female with a past medical history of HTN, HLD, CAD, HFpEF, COPD, chronic respiratory failure on 2 L of home oxygen, cervical radiculopathy, GERD, paroxysmal AFib on Eliquis presented to the hospital with a chief complaint of bilateral leg swelling. Patient reports that for the past couple weeks she has been having gradually increasing leg swelling causing difficulty ambulation. Denies any shortness with the dyspnea on exertion. Denies any orthopnea. Patient denies any chest pain or palpitations. Mentioned that she tried to increase her home Lasix dose but continued to have increasing legs willing hence presented to the ER for further evaluation. Denies any fever chills cough or sputum production. Denies any GI or symptoms. Review of all other systems is negative except mentioned above ER course: Per ER patient, patient noted of bilateral leg swelling; no evidence of cellulitis; patient is on Eliquis-less concern for DVT. hospital course: Patient was admitted for acute on chronic CHF with recovered ejection fraction/cor pulmonale due to severe COPD and chronic hypoxic respiratory failure. Was seen by Cardiology who recommended changing furosemide to torsemide 40 mg b.i.d.. Patient diuresed well and swelling improved. Was seen by physical therapy who recommended short-term rehab, however patient would prefer to do rehab at home. Was continued on metoprolol. For paroxysmal atrial fibrillation was continued on metoprolol and apixaban. Currently plan is for rate control as patient not good candidate for rhythm control. will follow up with Cardiology as outpatient. For acute hypokalemia and hypomagnesemia patient received supplement and will continue on daily supplement at home. Patient is feeling better will be discharged home. Time Attestation Discharge Coordination Time (in mins): 34 Quality: Safe Use of Opioids Does Pt have an Active Cancer Diagnosis on the Problem List?: No Quality: Stroke Does the patient have a stroke diagnosis?: No Physical Exam Vital Signs: Vital Signs: Last Vital Signs Temp 97.1 F 10/23/24 07:44 Pulse 88 10/23/24 10:31 Resp 17 10/23/24 07:44 BP 140/63 H 10/23/24 10:31 Pulse Ox 91 L 10/23/24 10:31 O2 Del Method Nasal Cannula 10/23/24 07:44 O2 Flow Rate 2 10/23/24 07:44 Oxygen Flow Rate 2 10/21/24 15:07 BMI result Body Mass Index 22.3 Const: General: comfortable and no acute distress Orientation/consciousness: patient oriented x3 HEENT: Other: Unremarkable Head: Yes normal to inspection Neck: Neck: Yes normal visual inspection Chest: Chest palpation & inspection: normal inspection of the chest Resp: Auscultation: clear to auscultation bilaterally Cardio: Palpation: normal PMI Heart sounds: S1 normal heart sound present, S2 normal heart sound present, no gallops, no murmurs and no rubs GI: Palpation (GI): Soft to palpation Back/Spine/Pelvis: Other: unremarkable Skin: General skin exam: no rashes or lesions noted Neuro: General: patient oriented x3 Extrem: General: Yes normal to inspection Psych: Mental Status: mental status grossly normal DS: Data Data Completed and Pending Labs on day of discharge: Laboratory Results - last 24 hr 10/23/24 06:56 WBC 8.2 RBC 3.74 L Hgb 10.0 L Hct 31.4 L MCV 84.0 MCH 26.7 L MCHC 31.8 RDW 16.3 H Plt Count 196 MPV 10.1 Absolute Nucleated RBC 0.000 Nucleated RBC % (auto) 0.0 Sodium 140 Potassium 3.0 L Chloride 100 Carbon Dioxide 32 H Anion Gap 11 L BUN 19 H Creatinine 0.74 Estim Creat Clear Calc 50.2 Estimated GFR > 60 Random Glucose 99 Calcium 8.6 Magnesium 1.4 L* Discharge Plan Discharge Anticipated Discharge Date/Time: 10/23/24 10:33 Patient Disposition: Home Health Service Discharge Diagnosis: chf Referrals: Parul Cartagena MD [Primary Care Provider] - 1 Week Discharge Medications: New torsemide 20 mg Tablet 40 mg PO BID Qty: 360 0RF Protocol: Hold for SBP< HOLD for SBP < : 90 magnesium oxide 400 mg (241.3 mg magnesium) Tablet 400 mg PO BIDPC Qty: 180 0RF potassium chloride 20 mEq/15 mL liquid 20 meq PO DAILY Qty: 1500 0RF Continued Eliquis 5 mg tablet 5 mg PO BID 90 Days Qty: 180 1RF Spiriva Respimat 2.5 mcg/actuation mist 2 puff inhalation DAILY 30 Days Qty: 4 5RF Rx Instructions: cannot use SP[employer]IV[employer] HANDI_HALOR cholecalciferol (vitamin D3) 50 mcg (2,000 unit) capsule 50 mcg PO DAILY 90 Days Qty: 90 1RF fluticasone furoate-vilanterol [Breo Ellipta] 200-25 mcg/dose blister with device 1 inh inhalation DAILY Qty: 60 2RF metoprolol succinate 100 mg tablet extended release 24 hr 100 mg PO DAILY 90 Days Qty: 90 1RF cimetidine 400 mg tablet 400 mg PO BID 30 Days Qty: 60 0RF Rx Instructions: administer with meals levalbuterol tartrate 45 mcg/actuation HFA aerosol inhaler 2 puff inhalation Q4-6H PRN (Reason: shortness of breath) 30 Days Qty: 15 3RF lorazepam 0.5 mg tablet 0.5 mg PO TID PRN (Reason: anxiety) 30 Days Qty: 90 0RF cyanocobalamin (vitamin B-12) [Vitamin B-12] 100 mcg Tablet 100 mcg PO DAILY folic acid 800 mcg Tablet 0.8 mg PO DAILY pantoprazole 40 mg tablet,delayed release (DR/EC) 40 mg PO DAILY@0630 rosuvastatin 5 mg tablet 2.5 mg PO BEDTIME gabapentin 100 mg capsule 100 mg PO TID PRN (Reason: Pain) trolamine salicylate [Aspercreme] 10 % Cream 1 appl TOPICAL DAILY PRN (Reason: Pain) (DME) compr.stocking,knee,long,small Misc See Rx Instructions .Route Qty: 2 1RF Rx Instructions: As directed Discontinued furosemide [Lasix] 40 mg tablet 80 mg PO BID Rx Instructions: dose increase Discharge Orders: Discharge Order (Routine); Ordered 10/23/24 Ordered By: Hayder Moreno Diet: Advance to usual diet Activity on Discharge: As tolerated Stand Alone Forms: Patient Portal Discharge page Print Language: Pakistani Other Ambulatory Orders: Basic Metabolic Panel (Routine) Timeframe: 1 Week Facility: [facility] - Location: Laboratory Ordered By: Hayder Moreno Magnesium (Routine) Timeframe: 1 Week Facility: [facility] - Location: Laboratory Ordered By: Hayder Moreno Care Plan Goals: recovery Health Concerns: chf, low potassium and magnesium, afib, copd Plan of Treatment: changed lasix to torsemide, started magnesium and potassium supplements, follow up labs, follow up with cardiology, home pt Assessment: see above
[2024-10-23 11:40] VITALS: BP 120/85; PULSE 95; RESP 17; TEMP 36.4; O2SAT 96
--- NOTE | 2024-10-26 14:30 | W.MHC.F2F ---
Service Date Service Date: 10/26/24 Encounter Date of encounter: 10/23/24 Reasons for Services Signs and symptoms assessed: sob on exertion Reason for senior care: medication management, medication treatment and teach disease management Reason for physical therapy: home safety and mobility, therapeutic exercises and energy conservation Homebound: Leaving the home is medically contraindicated at this time without the asist of a device and/or another person due th the listed conditions above and below. Reason homebound: shortness of breath with minimal effort Certification: Based on the above findings, I certify that this patient is confined to the home and needs intermittent senior care care, physical therapy and/or speech therapy, or continues to need occupational therapy. The patient is under my care, and I have initiated the establishment of the plan of care. The patient will be followed by a physician who will periodically review the plan of care. Time Spent With Patient Time: Total time managing care of this patient today ____ minutes.
== END 2024-10-23 13:56 | disposition home health service (06) | DRG 291 ==
LOC: HO.ED 18:56 → HO.EDOVER 19:39 → HO.IMC 19:56
PROVIDERS: Physician Assistant; Admitting Provider Hospitalist; Emergency Provider Emergency Medicine Emergency Medical Services; PCP Internal Medicine; Visit Provider Internal Medicine
DX: I11.0 Hypertensive heart disease with heart failure (principal); I50.33 Acute on chronic diastolic (congestive) heart failure; N17.9 Acute kidney failure, unspecified; J96.11 Chronic respiratory failure with hypoxia; R60.0 Localized edema; I25.10 Atherosclerotic heart disease of native coronary artery without angina pectoris; E78.5 Hyperlipidemia, unspecified; I27.81 Cor pulmonale (chronic); E87.6 Hypokalemia; I48.0 Paroxysmal atrial fibrillation; Z87.891 Personal history of nicotine dependence; Z99.81 Dependence on supplemental oxygen; Z79.01 Long term (current) use of anticoagulants; Z79.51 Long term (current) use of inhaled steroids; Z79.899 Other long term (current) drug therapy
CPT/HCPCS: 36415; 71046; 80048; 80053; 80076; 83735; 83880; 84484; 85025; 85027; 93005; 93970; 94640; 97116; 97162; 99222; 99285; J3475

== ENCOUNTER → 2024-10-21 15:10 | Outpatient (BNV) | payer MEDICARE, SELFPAY | PROVIDERS: PCP Internal Medicine; Visit Provider Radiology Diagnostic Radiology | DX: R60.0 Localized edema (principal); J44.9 Chronic obstructive pulmonary disease, unspecified; I51.7 Cardiomegaly | CPT/HCPCS: 71046; 93970 ==

== ENCOUNTER → 2024-10-21 19:16 | Outpatient (BNV) | payer MEDICARE, SELFPAY | PROVIDERS: Admitting Provider Hospitalist; Emergency Provider Emergency Medicine Emergency Medical Services; PCP Internal Medicine; Visit Provider Internal Medicine | DX: I50.33 Acute on chronic diastolic (congestive) heart failure (principal); I48.19 Other persistent atrial fibrillation; J44.9 Chronic obstructive pulmonary disease, unspecified | CPT/HCPCS: 93010; 99223 ==

== ENCOUNTER → 2024-10-21 19:16 | Outpatient (BNV) | payer MEDICARE, SELFPAY | PROVIDERS: Admitting Provider Hospitalist; Emergency Provider Emergency Medicine Emergency Medical Services; PCP Internal Medicine; Visit Provider Internal Medicine | DX: I48.91 Unspecified atrial fibrillation (principal); I50.33 Acute on chronic diastolic (congestive) heart failure; N17.9 Acute kidney failure, unspecified; R22.43 Localized swelling, mass and lump, lower limb, bilateral | CPT/HCPCS: 99223; 99233 ==

== ENCOUNTER 2024-10-30 09:38 | Outpatient (REF) | payer MEDICARE, SELFPAY ==
--- OUTSIDE RECORDS SUMMARY | 2024-10-30 10:26 | XMS_ITS ---
Author Organization [facility] [place] Address [address] [place] [address] Care Team Providers Care Rn Acls Name Role Phone Bonilla BURGOS, Parul Primary Care Provider Unavail Renuka Majano Unavailable [phone] REASON FOR VISIT PRINCIPAL SECURITY ARCHITECT [facility] Entered Encounters Encounter Location Date Provider Diagnosis [address] [address] 08/24/2024 Renuka Loja Plan Of Treatment Next Appt Details Provider Name:Renuka dunn, 12/08/2024 10:30:00 AM, [address] [place], [address], Progress Notes * KHURRAM FedefallonDOB:1945 (7 0 yo F)Acc No.[id number]:08/24/2024 Patient:?KHURRAM Yasmeen :1945???Age:79 Y???Sex:Female Address:[address] [place] [address], [id number] * true * Date:? Generated for Printi melvi/Jody/eTransmitting on:?10/30/2024 10:25 AM EDT
--- OUTSIDE RECORDS SUMMARY | 2024-10-30 10:26 | XMS_ITS ---
Author Organization [facility] [place] Address [address] [facility] [place] [address] Care Team Providers Care Patient Consumer Marketer Name Role Phone Bonilla BURGOS, Parul Primary Care Provider Unavail able Renuka Loja Unavailable [phone] Allergies Allergen (clinical drug ingredient) Drug/Non Drug Allergy documented on EMR Reaction Allergy Type Onset Date Status sulfamethoxazole / trimethoprim Bactrim Unknown Drug Allergy Active REASON FOR VISIT At Risk Footcare, Painful Nail(s) aggravated by shoes and causing difficulty standing/walking., Skin problem(s) Medications Medication SIG (Take, Route, Fr equency, Duration) Notes Start Date End Date Status Metoprolol Succinate Active Rosuvastatin Calcium Active Vitamin D3 Active Vitamin B12 Active Folic Acid Active Ammonium Lactate 12 % 1 application Exte rnally to affected areas of dry skin to feet except for between the toes Twice a day for 30 days Act rebekah Eliquis Active Social History Tobacco Use: Social History Observation Description Date Details (start date - stop date) Never Smoker NA - NA Tobacco use other than smoking: Question Answer Notes Are you an other tobacco user? No Tobacco Control (Standard) Question Answer Notes Tobacco use: Nonsmoker Additional Findings: Tobacco non-user Current no nsmoker [...] Never (0 point) Points 0 Interpretation Negative Problems Problem Type SNOMED Code ICD Code Onset Dates Problem Status W/U Status Risk Notes Problem Atherosclerosis of [place] artery of both lower extremities, with unspecified presence of clinical manifestation (I70.203) Active confirmed Q7(A), Q8(2B), Q9(1B,2C ) Problem 685732153 Ischemic ulcer o f left foot, limited to breakdown of skin (L97.521) Active confirmed Problem 84754652 Symptomatic varicose veins of both lower extremities (I83.893) Active confirmed Vital Signs Blood pressure systolic 130 mm Hg 10/28/19 25 Blood pressure diastolic 60 mm Hg 025 Height 5ft3in in 10/27/2024 Weight 115 lbs 10/27/2024 BMI 20.37 kg/m2 10/27/2024 Encounters Encounter Location Date Provider Diagnosis [facility] [place] [address] [place] [address] 10/27/2024 Renuka Pericmona Atherosclerosis of [place] artery of both lower extremities, with unspecified presence of clinical manifestation I70.203 ; Xerosis of skin L85.3 ; Pain in left toe(s) M79.675 ; Skin fissure R23.4 ; Ischemic ulcer of left foot, limited to breakdown of skin L97.521 ; Lower extremity edema R60.0 ; Symptomatic varicose veins of both lower extremities I83.893 and Left foot pain M79.672 Assessments Encounter Date Diagnosis (ICD Code) Assessment Notes Treatment Notes Treatment Clinical Notes Section Notes 10/27/2024 Atherosclerosis of [place] artery of both lower extremities, with unspecified presence of clinical manifestation (ICD-10 - I70.203) Q7(A), Q8(2B), Q9(1B,2C) 10/27/2024 Xerosis of skin (ICD-10 - L85.3) 10/27/2024 Pain in left toe(s) (ICD-10 - M79.675) 10/27/2024 Skin fissure (ICD-10 - R23.4) 10/27/2024 Ischemic ulcer of left foot, limited to breakdown of skin (ICD-10 - L97.521) 10/27/2024 Lower extremity edema (ICD-10 - R60.0) 10/27/2024 Symptomatic varicose veins of both lower extremities (ICD-10 - I83.893) 10/27/2024 Left foot pain (ICD-10 - M79.672) Plan Of Treatment Medication Medication Name Sig Start Date Stop Date Notes Ammonium Lactate 12 % 1 application Exte rnally to affected areas of dry skin to feet except for between the toes Twice a day for 30 days Next Appt Details Follow Up: 6 Weeks, Reason: Provider Name:Renuka dunn, 12/08/2024 10:30:00 AM, [address] [place] [address], [id number], Procedure Notes * Category Sub-Category Detail Notes Debride skin< 25 sq cm Open wound ISCHEMIC: Physician of record performed open wound selective debridement of first 25 sq cm or less, of devitilized necrotic/nonviable soft tissue, fibrin, and exudate extending from the epidermis through the dermis, utilizing sharp dissection with sterile 15 blade, and/or tissue nippers. Sterile antibiotic dressing applied, ANESTHESIA was DEFERRED, Pt tolerant to pain, Hemostasis was achieved through direct pressure. Post debridement measurements: 7 mm x 2 mm x 2 mm. Character of the wound post debridement is stable ([address]), The patient is to apply Antibiotic Oint. to the wound and cover with a DSD, The patient was instructed to change dressings according to orders or PRN saturation, leaks, The patient was instructed to monitor and report any signs or symptoms of infection or any untoward reactions, The patient is to cont the local wound care as directed Keratoma Treatment Parring or Cutting o f Benign Hyperkeratotic Lesion(s) (-57) More than 4 Lesions - Due to the at risk nature of the patients medical condition as documented in the exam findings, performance of this keratoderma treatment is medically necessary as its management by an unskilled/untrained nonprofessional would put this patients foot and overall health at risk. Therefore, the benign hyperkeratotic lesions, (6) in total, locations as stated and described in the exam ( Lateral, 5th MPJ, , Medial plantar, IPJ, TA, Plantar Heel(s), Left, , Medial plantar, T5, Plantar Heel(s), Right, SUB MTH (s), 5, Right ), were pared, and/or cut utilizing a sterile 15 blade, tissue nippers, and/or power dremel instrumentation by the physician of record - 97626 , Q8 Progress Notes * Yasmeen ANDREWS RDOB:1945 (79 yo F)Acc No.[id number]:10/27/2024 Progress Notes Patient:Yasmeen KAN Provider:?Renuka Loja DPM :1945???Age:79 Y???Sex:Female D ate:10/27/2024 Address:[address] [place] [address] [address] [facility] [id number] Pcp:Parul Crystal MD Subjective: * Chief Complaints: * ???At Risk FootcarePainful N ail(s) aggravated by shoes and causing difficulty standing/walking.Skin problem(s) * HPI: ???At Risk footcare:?Pt States Last PCP Visit:?Date?07/06/2024 ???Skin problems:?Nature:?dryness , scaling, fissures, bleeding.?Location:?B/L; L>>R?.?Duration:?, a few months.?Onset/Cause:?gradual.?Course:?worse.?Aggravated by:?any pressure, standing, walking, shoe gear.?Treatments:?Topical OTC moisturizing lotion/cream has not relieved condition.? * ROS:?General/Constitutional:?Nausea?denies.?Vomiting?denies.?Hunger Thirst?denies.?Loss appetite?denies.?Chills?denies.?Fatigue?admits.?Fever?denies.?Night Sweats?denies.?Unexplained weight loss?denies.?Unexplained weight gain?denies.?HEENTM:?Dentures?admits.?Dizziness?denies.?Glasses/contacts?admits.?Retinopathy?de nies.?Blurred/double vision?denies.?TMJ?denies.?Discharge/drainage?denies.?Implants?denies.?Sore throat?denies.?Dental implants?denies.?Hard of hearing ?denies.?Difficulty chewing/swallowing/speaking?denies.?Nose bleeds?denies.?Sore mouth?denies.?Respiratory:?On Oxygen?admits.?Pneumonia/pleurisy?denies.?Bronchitis?denies.?Emphysema?admits.?C oughing?denies.?Cough blood?denies.?Shortness of breath?admits.?Wheezing?denies.?Cardiovascular:?Pacemaker?denies.?MVP?denies.?WPW?denies.?CHF?denies.?Heart attack?denies.?Septal defect?denies.?Rapid beat?denies.?Chest pain ?denies.?Atrial Fib.?denies.?Murmur/Palpitations?denies.?Gastrointestinal:?Hemorrhoids?admits.?Stomach/Abdominal pain?denies.?Dark blood stool?denies.?Irritable bowel ?denies.?Constipation?denies.?Diarrhea?denies.?Hematology:?Swelling?denies.?Clots?denies.?Varicose Veins?admits.?Bruising?denies.?Bleeding problem?denies.?Genitourinary:?Blood urine?denies.?Frequent/Painfu/urination/bladder control?denies.?Kidney stones?denies.?Infection (UTI)?denies.?Nephropathy?admits.?sex trans dis (STD)?denies.?Prostate?denies.?Musculoskeletal:?Hammertoes?denies.?Bunions?denies.?Back Pain?denies.?Muscle Cramps/ Resting?denies.?Muscle cramps / walking?admits.?Generalized aches and pains?denies.?Weakness?denies.?Integ.:?Null?denies.?Scars?denies.?Corns/calluses?denies.?Ingrown nails?denies.?Painful nails?denies.?Open Sores?denies.?Rashes?denies.?Neurologic:?Difficulty sleeping?admits.?Brain disorder?denies.?Numbness?denies.?Balance trouble?denies.?Confusion?denies.?Fainting/blackouts?denies.?Tingling?denies.?Tr emors?denies.? * Medical History:? * Surgical History:?partial hy sterectomy 1973appendectomy 1964 * Hospitalization/Major Diagno stic Procedure:?[facility]- short of breath 09/2024 * Family History:?Father: dece ased.?Mother: diagnosed with Family history of arthritis.? * Social History:?Tobacco Use:?Tobacco use other than smoking?Are you an other tobacco user??No ?Tobacco Control (Standard)?Tobacco use:?Nonsmoker ?Additional Findings: Tobacco non-user?Current nonsmoker ???Drugs/Alcohol:?Drugs?Have you used drugs other than those for medical reasons in the past 12 months??No ???Miscellaneous:?Caffeine: yes. ?Children: yes, 3. ?Exercise: no. ?Marital status: . ?Occupation: Unemployed. ???Drug/Alcohol:?AUDIT-C (Standard)?Did you have a drink containing alcohol in the past year??Yes ?How often did you have a drink containing alcohol in the past year??Never (0 point) ?How many drinks did you have on a typical day when you were drinking in the past year??1 or 2 drinks (0 point) ?How often did you have six or more drinks on one occasion in the past year??Never (0 point) ?Points?0 ?Interpretation?Negative * Medications:?TakingEliquis M etoprolol Succinate Rosuvastatin Calcium Vitamin D3 Vitamin B12 Folic Acid Medication List reviewed and reconciled with the patientTaking Eliquis Taking Metoprolol Succinate Taking Rosuvastatin Calcium Taking Vitamin D3 Taking Vitamin B12 Taking Folic Acid Medication List reviewed and reconciled with the patient * Allergies:?Bactrimyes[Allerg ies Verified] Objective: * Vitals:?Ht: 5ft3in, Wt: 115, BMI: 20.37, Shoe size: 8, BP: 130/60 mm Hg, Ht-cm: 160.02 cm, Wt-k.16 kg. * Examination: ???Vascular: ?DP PULSES (B):? 0/4, B/L.?PT PULSES (B):? 0/4, B/L.?CAPILLARY FILL TIME:? delayed, all digits, B/L.?TROPHIC CONDITION-TEXTURE/ELASTICITY/TURGOR/HAIR GROWTH (B):? decreased, fragile, thin, shiny skin, with sparse to absent hair growth, B/L.?TEMPERTURE GRADIENT (C):? decreased, cool to cool, proximal to distal, B/L.?PIGMENTATION:?mottled, B/L.?EDEMA (C):?3/4, pitting, Foot/Feet, Ankle(s), Leg(s), with aching pain, B/L.?TELANGECTASIA:?present, moderate.?VARICOSITIES:?present, severe, painful, B/L.?Dermatologic: ?SKIN FINDINGS:?Skin shows sign(s) of, dryness, scaling, in a stocking fashion, B/L Fissures present with bleeding, without signs of infection, , Lateral, 5th MPJ, , Medial plantar, IPJ, TA, Plantar Heel(s), Left, Skin exam reveals Keratotic lesion(s) located at Lateral,5th MPJ,, Medial plantar, IPJ, TA, Plantar Heel(s), Left, , Medial plantar, T5, Plantar Heel(s), Right, SUB MTH (s), 5, Right.?ULCER:?LOCATION, lateral 5th MPJ left, SIZE, 6 mm X 2 mm X 2mm, BASE, granular, RIM, hyperkeratotic, UNDERMINING, absent, TRACKING, Full thickness breakdown of skin, DRAINAGE, serosanguineous, mild, NECROTIC TISSUE, loosely-adherent, yellow slough, MALODOR, absent, CALOR, absent, ERYTHEMA, absent, PAIN ON PALPATION, present.?Orthopedic: ?MUSCLE STRENGTH:?5/5 all groups in a symmetrical fashion, B/L.?Neurological: ?SENSORY:?Neurological exam reveals intact sensorium, pain sensation normal, vibration sensation intact, pinprick sensation is normal in the lower extremities, Pt denies, anesthesia, burning, paresthesia, tingling, B/L.?General Examination: ?GENERAL APPEARANCE:?Reveals a pleasant, alert, well nourished, well- developed, well hydrated individual, who demonstrates proper attention to hygiene/body habitus, and is in no acute distress, Pt serves as own historian for office visit today.?ORIENTED:?person, place, and time.? Assessment: * Assessment: 1.?Xerosis of skin - L85.3 ( Primary)???Specify :Acute problem, Complicated w/ Multiple Tx Options(4),Rx Management (4)???2.?Atherosclerosis of [place] artery of both lower extremities, with unspecified presence of clinical manifestation - I70.203???Notes :Q7(A), Q8(2B), Q9(1B,2C)???3.?Pain in left toe(s) - M79.675???4.?Skin fissure - R23.4???5.?Ischemic ulcer of left foot, limited to breakdown of skin - L97.521???6.?Lower extremity edema - R60.0???7.?Symptomatic varicose veins of both lower extremities - I83.893???8.?Left foot pain - M79.672??? Plan: * Treatment: * Procedures:?Debride skin< 25 sq cm:?Open wound?ISCHEMIC: Physician of record performed open wound selective debridement of first 25 sq cm or less, of devitilized necrotic/nonviable soft tissue, fibrin, and exudate extending from the epidermis through the dermis, utilizing sharp dissection with sterile 15 blade, and/or tissue nippers. Sterile antibiotic dressing applied, ANESTHESIA was DEFERRED, Pt tolerant to pain, Hemostasis was achieved through direct pressure. Post debridement measurements: 7 mm x 2 mm x 2 mm. Character of the wound post debridement is stable (21952), The patient is to apply Antibiotic Oint. to the wound and cover with a DSD, The patient was instructed to change dressings according to orders or PRN saturation, leaks, The patient was instructed to monitor and report any signs or symptoms of infection or any untoward reactions, The patient is to cont the local wound care as directed.?Keratoma Treatment:?Parring or Cutting of Benign Hyperkeratotic Lesion(s)?(-57) More than 4 Lesions - Due to the at risk nature of the patients medical condition as documented in the exam findings, performance of this keratoderma treatment is medically necessary as its management by an unskilled/untrained nonprofessional would put this patients foot and overall health at risk. Therefore, the benign hyperkeratotic lesions, (6) in total, locations as stated and described in the exam (Lateral,5th MPJ,, Medial plantar, IPJ, TA, Plantar Heel(s), Left, ,Medial plantar,T5,Plantar Heel(s),Right,SUB MTH (s),5,Right), were pared, and/or cut utilizing a sterile 15 blade, tissue nippers, and/or power dremel instrumentation by the physician of record - [id number], Q8.? * Procedure Codes:?02650 TRIM SKIN LESIONS, OVER 4, Modifiers: XS , [id number] ACTIVE WOUND CARE/20 CM OR <, Modifiers: XS * Preventive Medicine:? ??Counseling:?Discussion:?-04: Office or other outpatient visit for the evaluation and management of a new patient, which required a medically appropriate history and/or examination and MODERATE level of DECISION MAKING for: 1 OR MORE CHRONIC PROBLEM(S) THATS WORSENING, 2 STABLE CHRONIC PROBLEMS, A NEWLY DIAGNOSED PROBLEM WITH UNCERTAIN PROGNOSIS, AN ACUTE COMPLICATED INJURY WITH MULTIPLE TREATMENT OPTIONS, OR AN ACUTE PROBLEM WITH ACCOMPANYING SYSTEMIC SYMPTOMS, THAT POSE(S) A MODERATE RISK OF MORBIDITY. THIS CONDITION MAY ALSO INCLUDE RX DRUG MANAGEMENT, OR A DECISON FOR MINOR SURGERY. The visit on the day of the encounter encompassed interpreting the data and educating the patient as to the nature of their condition, treatment options available according to their individual PMH, meds, allergies, and overall health/living conditions, as well as any potential risks or complications that may occur from a failure to adhere to, and participate in, the recommended course of therapy. The discussion included a complete verbal, and/or written explanation of the examination results, any x-rays taken, the proposed diagnosis, and outline of the treatment plan. A schedule for future care needs was also explained. The patient verbalized an understanding of the instructions at this time and agreed to be an active participant in their treatment. If the patient should think of any questions or concerns after the visit, I have encouraged the patient to call the office.?Consult:?The patient was counseled on the diagnosis, treatment options, and the need for a, Vascular Consult due to pedal risk of limb/life, Vascular/Endovascular Surgery was contacted. When todays office notes are received, they state they will contact patient for appt.?Ulcer:?A detailed plan of care was reviewed with the patient. We emphasized the fact that the patient takes on an active participating role in the treatment process and emphasized to them that they are an included, valued, and important member of the wound healing team in order to reach an expedient successful outcome. The patient agreed to follow their medically recommended diet while increasing their protein intake if safely able to do so, maintain proper bodily hydration, abide by weight-bearing restrictions at all times, quit all current smoking habits if any, and diligently follow any/all dressing change instructions. It was clearly made known to the patient that if they fail to do their part, they will likely extend their course of treatment as well as possibly increase their risk of adverse events including amputation. The patient was instructed on importance of proper wound care consisting of pressure reduction, and proper maintenance of a moist wound environment. The patient is to cleanse the wound with warm soapy water/peroxide/saline, or betadine BID based on product availability. The patient is to apply ( NEOSPORIN, POLYSPORIN, or TRIPLE OINTMENT, ) Antibiotic to the wound and cover with a DSD as directed. The patient was instructed to change dressings according to orders, or PRN saturation, leaks. The patient was instructed to monitor and report any signs or symptoms of infection or any untoward reactions. Precautions Taken: Offloading/Pressure reduction via rest/ limited activity to essential to daily life only, cane/ crutches/ walker/ knee scooter/ wheelchair, shoe modification, accommodative padding, sharp debridement, and take/apply medication as directed. THE SHORT-TERM GOALS of wound care include, prevent hospitalization, debridement to remove devitalized tissue, minimize risk for soft tissue or bone infection, initiate and promote the wound healing process, and prevent further complication such as loss of limb or life were discussed/reviewed. THE LONG-TERM GOALS of wound care include, complete wound closure if possible, facilitate patient comfort, prevent recurrence, and return the patient to their pre-ulcerative state of activity and lifestyle if possible, Debridement frequency as indicated.?Xerosis:?The patient was counseled on the diagnosis, potential etiologies, and treatment options for their skin condition. We discussed the risks and benefits of each option from performing no treatment, to utilizing OTC topical skin creams/ointments, to utilizing prescription topical creams/ointments, to utilizing customized compounded topical medications and use of nocturnal occlusion with any/all previously detailed therapies. We discussed the advantages and disadvantages of each possible treatment and importance for adherence to all the recommended therapies for optimum success and avoid potential complications such as open sore/infection/possible hospitalization. We discussed the potential effectiveness of each topical preparation as well as each ones possible side effects and/or patient medication interactions. Patient questions re: use, dosage, successful outcomes, and application consistency were reviewed and the patient verbalized that all answers were clearly understood. The patient has decided to apply Rx skin creams to their feet save the interspaces while paying special attention to the heels. Such was sent to their pharmacy at the time of visit.? ??Screening/Special Tests:?Fall Risk?Screening:?No falls in the past year ?FALLS: Screening for Future Fall Risk?Have you had any falls with injury in the past year??No * Follow Up:?6 Weeks * Images: * Sign off status: Completed true * Provider:?Renuka Loja DPM Date:? Generated for Asmita ogden/Jody/eTransmitting on:?10/30/2024 10:26 AM EDT History and Physical Notes * HPI (History of Present Illness) Category Sub-Category Detail Notes Category Not es Skin problems Nature: dryness , scaling, fissures , bleeding Location: B/L; L>>R Duration: , a few months Onset/Cause: gradual Course: worse Aggravated by: any pressure, standi ng, walking, shoe gear Treatments: Topical OTC moisturi zing lotion/cream has not relieved condition At Risk footcare Pt States Last PCP Visit: Date: 5 Examination Category Sub-Category Detail Notes Category Not es Neurological SENSORY: Neurological exa m reveals intact sensorium, pain sensation normal, vibration sensation intact, pinprick sensation is normal in the lower extremities, Pt denies, anesthesia, burning, paresthesia, tingling, B/L Dermatologic SKIN FINDINGS: Skin shows sign( s) of, dryness, scaling, in a stocking fashion, B/L Fissures present with bleeding, without signs of infection, , Lateral, 5th MPJ, , Medial plantar, IPJ, TA, Plantar Heel(s), Left, Skin exam reveals Keratotic lesion(s) located at Lateral, 5th MPJ, , Medial plantar, IPJ, TA, Plantar Heel(s), Left, , Medial plantar, T5, Plantar Heel(s), Right, SUB MTH (s), 5, Right ULCER: LOCATION, lateral 5t h MPJ left, SIZE, 6 mm X 2 mm X 2mm, BASE, granular, RIM, hyperkeratotic, UNDERMINING, absent, TRACKING, Full thickness breakdown of skin, DRAINAGE, serosanguineous, mild, NECROTIC TISSUE, loosely-adherent, yellow slough, MALODOR, absent, CALOR, absent, ERYTHEMA, absent, PAIN ON PALPATION, present Orthopedic MUSCLE STRENGTH: 5/5 all groups in a symm etrical fashion, B/L General Examination GENERAL APPEARANCE: Reveals a pleasant, alert, well nourished, well-developed, well hydrated individual, who demonstrates proper attention to hygiene/body habitus, and is in no acute distress, Pt serves as own historian for office visit today ORIENTED: person, place, and t loren Vascular DP PULSES (B): 0/4, B/L PT PULSES (B): 0/4, B/L CAPILLARY FILL TIME: delayed, all digits , B/L TEMPERTURE GRADIENT (C): decreased, cool to cool, proximal to distal, B/L TROPHIC CONDITION-TEXTURE/ELASTICITY/TURGOR/HAIR GROWTH (B): decreased, fragile, thin, shiny skin, wi th sparse to absent hair growth, B/L EDEMA (C): 3/4, pitting, Foot/F eet, Ankle(s), Leg(s), with aching pain, B/L TELANGECTASIA: present, moderate VARICOSITIES: present, severe, rosalie nful, B/L PIGMENTATION: mottled, B/L
--- OUTSIDE RECORDS SUMMARY | 2024-10-30 10:26 | XMS_ITS ---
Author Organization [facility] Address [address] [place] [address] Care Team Providers Care Boss Dyer Name Role Phone Bonilla BURGOS, Parul Primary Care Provider Unavail Renuka Majano Unavailable [phone] REASON FOR VISIT NEEV Encounters Encounter Location Date Provider Diagnosis [facility] [address] [place] [address] 10/27/2024 Renuka Loja Plan Of Treatment Next Appt Details Provider Name:Renuka dunn, 12/08/2024 10:30:00 AM, [address] [place], [address], Progress Notes * Yasmeen ANDREWS RDOB:1945 (79 yo F)Acc No.[id number]:10/27/2024 Patient:?Yasmeen ANDREWS :1945???Age:79 Y???Sex:Female Address:[address] [place] [address], [place] [address] * * Date:?
--- OUTSIDE RECORDS SUMMARY | 2024-10-30 10:26 | XMS_ITS | Patient Health Record ---
[facility] [place] Address [address] [place] [address] Care Team Providers Care Lifestyle Consultant Name Role Phone Parul Crystal MD Primary Care Provider Unavail able Renuka Loja Unavailable [phone] Allergies Allergen (clinical drug ingredient) Drug/Non Drug Allergy documented on EMR Reaction Allergy Type Onset Date Status sulfamethoxazole / trimethoprim Bactrim Unknown Drug Allergy Active Reason For Referral Diagnosis 1 Pain in unspecified foot (M79.673) Referring Provider First Name Parul Referring Provider Last Name Bonilla Referred Organization [facility] Jarett Referred Provider Renuka Loja Referred Address [address] [place], [place],[address], Referred Provider Specialty Podiatry Referral Priority Routine Medications Medication SIG (Take, Route, Fr equency, Duration) Notes Start Date End Date Status Metoprolol Succinate Active Rosuvastatin Calcium Active Vitamin D3 Active Vitamin B12 Active Ammonium Lactate 12 % 1 application Exte rnally to affected areas of dry skin to feet except for between the toes Twice a day for 30 days Act rebekah Folic Acid Active Eliquis Active Social History Tobacco Use: Social [...] W/U Status Risk Notes Problem Atherosclerosis of klamath artery of both lower extremities, with unspecified presence of clinical manifestation (I70.203) Active confirmed Q7(A), Q8(2B), Q9(1B,2C ) Problem [id number] Ischemic ulcer o f left foot, limited to breakdown of skin (L97.521) Active confirmed Problem [id number] Symptomatic varicose veins of both lower extremities (I83.893) Active confirmed Vital Signs Blood pressure diastolic 60 mm Hg 10/27/2024 Height 5ft3in in 10/27/2024 Blood pressure systolic 130 mm Hg 10/27/2024 Weight 115 lbs 10/27/2024 BMI 20.37 kg/m2 10/27/2024 Encounters Encounter [facility] Date [facility] [address] 10/27/2024 Renuka Loja Atherosclerosis of klamath artery of both lower extremities, with unspecified presence of clinical manifestation I70.203 ; Xerosis of skin L85.3 ; Pain in left toe(s) M79.675 ; Skin fissure R23.4 ; Ischemic ulcer of left foot, limited to breakdown of skin L97.521 ; Lower extremity edema R60.0 ; Symptomatic varicose veins of both lower extremities I83.893 and Left foot pain M79.[address] [address] 10/27/2024 Renuka Loja [address] [address] 08/24/2024 Renuka Loja Assessments Encounter Date Diagnosis (ICD Code) Assessment Notes Treatment Notes Treatment Clinical Notes Section Notes 10/27/2024 Xerosis of skin (ICD-10 - L85.3) 10/27/2024 Atherosclerosis of klamath artery of both lower extremities, with unspecified presence of clinical manifestation (ICD-10 - I70.203) Q7(A), Q8(2B), Q9(1B,2C) 10/27/2024 Pain in left toe(s) (ICD-10 - M79.675) 10/27/2024 Skin fissure (ICD-10 - R23.4) 10/27/2024 Ischemic ulcer of left foot, limited to breakdown of skin (ICD-10 - L97.521) 10/27/2024 Lower extremity edema (ICD-10 - R60.0) 10/27/2024 Symptomatic varicose veins of both lower extremities (ICD-10 - I83.893) 10/27/2024 Left foot pain (ICD-10 - M79.672) Plan Of Treatment Next Appt Details Provider Name:Renuka dunn, 12/08/2024 10:30:00 AM, [address] [place] [address], [id number], Insurance Providers Payer Name Payer Address Payer Phone Subscriber Number Group Number Insured Name Patient Relationship to Insured Coverage Start Date Coverage End Date [facility] [address] [place] [phone] [id number] Yasmeen Andrews Self - patient is the insured Medical (General) History Medical History History ICD Code Anxiety Cataracts High Blood Pressure Lung disease Reflux ( GERD) Surgical History Surgery Date(Month/Year) partial hysterectomy 1973 appendectomy 1964 Hospitalization History Reason Date(Month/Year[place] [facility] [place]24
[2024-10-30 10:41] LABS: Anion Gap 14 (12-20); Blood Urea Nitrogen 24 mg/dL (9-16); Calcium 9.3 mg/dL (8.4-10.2); Carbon Dioxide 33 mmol/L (22-29); Chloride 99 mmol/L (96-108); Estimated Glomerular Filt Rate 55; Glucose Random 99 mg/dL (60-115); Magnesium 1.9 mg/dL (1.6-2.6); Potassium 3.7 mmol/L (3.3-5.1); Sodium 142 mmol/L (135-145)
== END 2024-10-30 09:39 | disposition home or self-care (01) ==
LOC: HO.LNP 09:38
PROVIDERS: Visit Provider Internal Medicine
DX: Z13.89 Encounter for screening for other disorder (principal)
CPT/HCPCS: 80048; 83735

== ENCOUNTER 2024-10-30 11:05 | Outpatient (AMB) | payer MEDICARE, SELFPAY ==
--- NOTE | 2024-10-30 11:08 | A.OFFPC_ITS ---
Vital Signs 10/30/24 11:11 Height 5 ft 3 in Weight 117 lb 6 oz BMI 20.8 BP 130/80 Blood Pressure Location Lt brachial Position Sitting Pulse 96 Pulse Source Pulse Oximeter Temp 97.2 F Temp Source Temporal Artery Scan Pulse Oximetry (%) 93 Oxygen Delivery Method Nasal Cannula Intake Visit Reasons: [place] [facility] [place] Intake Note: Patient is here for hospital discharge and TCM follow up. Patient was [place] [facility] [place]. 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: Present Accompanied by: Daughter Allergies Sulfa (Sulfonamide Antibiotics) Allergy (Intermediate, Verified 10/30/24 11:10) nausea, vomiting Tobacco use date assessed: 10/30/24 Fall risk assessment: 1 Fall in past year Last assessed Fall Risk: 10/30/24 Dental Screening Dental Screen Date: 08/12/24 [facility] TCM TCM Information Date of Discharge 10/23/24 Discharged From [facility] Interactive Contact Date (Reference documentation from this date) 10/26/24 HPI Comments History of Present Illness Details 79 y/o Female patient who presents to [facility] today for TCM. Accompanied by Daughter who assists with History taking. Past medical history of HTN, HLD, CAD, HFpEF, COPD, chronic respiratory failure on 2 L of home oxygen, cervical radiculopathy, GERD, and paroxysmal AFib on Eliquis. Patient was admitted on 10/21 - 10/23 for acute on chronic CHF with recovered ejection fraction/cor pulmonale due to severe COPD and chronic hypoxic respiratory failure. Furosemide was changed to Torsemide 40 mg b.i.d. in the Hospital. She was seen by physical therapy who recommended short-term rehab, however patient declined and prefers to do rehab at home. [facility]. Pt states that I wanted to go to SNF but my older daughter did not want me to go and that she will help me at home . She was continued on metoprolol and for paroxysmal atrial fibrillation metoprolol and Apixaban were continued. Patient had follow up appointments with Cardiology and Pulmonology today via Telemedicine. Patient c/o Very itchy red Rash covering her Torso. Reports noticing Rash after Hospital discharge few months ago. [facility] Medical History Respiratory failure with hypoxia Hypertension CHF (congestive heart failure) PAF (paroxysmal atrial fibrillation) Congestive heart failure Atrial fibrillation with rapid ventricular response Congestive heart failure Acute hypoxemic respiratory failure Encounter for cardioversion procedure Atrial fibrillation with RVR Acute exacerbation of congestive heart failure Acute on chronic hypoxic respiratory failure Acute HFrEF (heart failure with reduced ejection fraction) Chronic lung disease Skin lesion Dyslipidemia Cough due to DAISY inhibitor Neck pain GERD (gastroesophageal reflux disease) Aortic regurgitation Right hand pain Leg edema COPD (chronic obstructive pulmonary disease) Allergic rhinitis Anxiety Surgical History Carpal tunnel syndrome, right History of bilateral cataract extraction History of partial hysterectomy Family History Father Medical history unknown Mother Medical history unknown Social History Household Members: None Housing: House Do you presently have visiting nurse or other home services: No Alcohol intake: current Alcohol intake frequency: a few times a week Alcohol type: other Patient Tobacco Use Status: Former Tobacco user Tobacco use type: Cigarette e-Cigarette/Vaping Use: Never Used Second Hand Smoke Exposure: Yes Advance Directives Date on File: 08/25/20 service: No Current occupational status: retired Cognitive needs: No Hearing needs: No Vision needs: No Questionnaire Thrive Questionnaire Date Thrive assessed: 08/12/24 I am a: Patient What is your living situation today?: I have a steady place to live Within the past 12 months, did the food you bought not last and you didn't have the money to get more?: Never true Within the past 12 months, did you worry whether your food would run out before you got money to buy more?: Never true Do you have trouble paying for medicines?: No Do you have trouble getting transportation to medical appointments?: I choose not to answer this question Do you have trouble paying your heating and electricity bill?: I choose not to answer this question Do you have trouble taking care of your child, family member or friend?: I choose not to answer this question Do you have trouble with day-to-day activities such as bathing, preparing meals, shopping, managing finances, etc.?: I choose not to answer this question Are you currently unemployed and looking for a job?: I choose not to answer this question Are you interested in more education?: I choose not to answer this question Please select the resources that you would like help with: None Currently or been in a relationship where the following occur: I choose not to answer THRIVE Score: 0 CHRISTIAN-7 AMB Questionnaire CHRISTIAN-7 Date CHRISTIAN - 7 assessed: 08/12/24 Source: Developed by Drs. Mick Kovacs, Yasmeen Rey, Louie Warren and colleagues, with an educational louis from [employer]. Physical exam (Primary Care) Vital Signs: Last Vital Signs Temp 97.2 F 10/30/24 11:11 Pulse 96 10/30/24 11:11 BP 130/80 10/30/24 11:11 Pulse Ox 93 10/30/24 11:11 Oxygen Delivery Method Nasal Cannula 10/30/24 11:11 BMI result Body Mass Index 20.8 Tobacco/Smoking Status: Tobacco use Status Tobacco use date assessed 10/30/24 10/30/24 11:16 Patient Tobacco Use Status Former Tobacco user 10/30/24 11:16 Tobacco use type Cigarette 10/30/24 11:16 e-Cigarette/Vaping Use Never Used 10/30/24 11:16 Thrive Assessment: Date of Thrive Assessment Date Thrive assessed 08/12/24 10/30/24 11:16 Currently or been in a relationship where the following occur: I choose not to answer Const General: no acute distress, ill appearing and lethargic Orientation/consciousness: patient oriented x3 and lethargic Limitations: ambulation with walker Resp Effort & Inspection: normal respiratory effort Auscultation: clear to auscultation bilaterally Cardio Heart sounds: S1 normal heart sound present and S2 normal heart sound present Skin Rashes: rashes noted (Macular papular erythematous Rash) Neuro General: patient oriented x3, gait normal and moves all extremities Psych Speech and movement: Normal speech and movement present Coding Level of Care Code TCM Mod MDM <= 14 Days Diagnoses Acute on chronic diastolic congestive heart failure I50.33 Heart failure chronicity: acute on chronic Heart failure type: diastolic Acute on chronic congestive heart failure, unspecified heart failure type I50.9 Heart failure type: unspecified COPD with acute exacerbation J44.1 Time Spent (min) 20 Assessment & Plan Assessment & Plan (1) Congestive heart failure: Code(s): I50.9 - Heart failure, unspecified Category: Medical Qualifiers: Heart failure chronicity: acute on chronic Heart failure type: diastolic Qualified Code(s): I50.33 - Acute on chronic diastolic (congestive) heart failure Plan: Managed by Cardiology (2) Acute exacerbation of CHF (congestive heart failure): Code(s): I50.9 - Heart failure, unspecified Qualifiers: Heart failure type: unspecified Qualified Code(s): I50.9 - Heart failure, unspecified Plan: Managed by Cardiology. (3) COPD with acute exacerbation: Code(s): J44.1 - Chronic obstructive pulmonary disease with (acute) exacerbation Plan: Managed by Pulmonology. Plan Patient asked to be referred to SNF. I informed Patient that she will need to contact Iliana Porter directly.
[2024-10-30 11:11] VITALS: BP 130/80; PULSE 96; TEMP 36.2; O2SAT 93; BMI 20.8
== END 2024-10-30 11:49 | disposition home or self-care (01) ==
LOC: HO.HMCH 11:06
PROVIDERS: PCP Internal Medicine; Visit Provider Nurse Practitioner Family
DX: I50.33 Acute on chronic diastolic (congestive) heart failure (principal); I50.9 Heart failure, unspecified; J44.1 Chronic obstructive pulmonary disease with (acute) exacerbation

== ENCOUNTER 2024-10-30 15:37 | Inpatient (IN) | payer MEDICARE, SELFPAY ==
[2024-10-30] VITALS (9 sets, daily range): BP systolic 109–156; BP diastolic 56–88; PULSE 69–96; RESP 17–25; TEMP 36.2–36.6; O2SAT 93–99; BMI 19.7
--- NOTE | ~2024-10-30 | XR_ITS ---
EXAMINATION: XR FOOT, LEFT CLINICAL INFORMATION: fall, pain COMPARISON: 07/20/2016. TECHNIQUE: AP, lateral, and oblique views of the left foot. FINDINGS: No fracture, dislocation, or suspicious bone lesion. Mild osteoarthritic changes at the first MTP joint. Joint spaces otherwise normal. Normal plantar arch. The midfoot and hindfoot are grossly normal. There is dorsal soft tissue swelling of the foot. XR/XR foot LT min 3V IMPRESSION: Dorsal soft tissue swelling. No acute underlying bony abnormality. Electronically signed by: Abhijeet Pearl MD 10/30/2024 04:15 PM EDT
--- NOTE | ~2024-10-30 | XR_ITS ---
EXAMINATION: XR ANKLE, LEFT CLINICAL INFORMATION: fall, pain COMPARISON: None available. TECHNIQUE: AP, lateral, and mortise views of the left ankle. FINDINGS: Mild diffuse osteopenia. No fracture, dislocation, or suspicious bone lesion. The mortise is intact. Talar dome is normal. The subtalar joints and calcaneus have a normal appearance. There is mild lateral and minimal medial soft tissue swelling. No ankle joint effusion. XR/XR ankle LT min 3V IMPRESSION: 1. No acute bony abnormalities. 2. Mild lateral greater than medial soft tissue swelling. Electronically signed by: Abhijeet Pearl MD 10/30/2024 04:16 PM EDT
--- NOTE | ~2024-10-30 | XR_ITS ---
EXAMINATION: XR CHEST CLINICAL INFORMATION: Shortness of breath COMPARISON: 10/21/2024, 09/06/2024. TECHNIQUE: 2 views of the chest were obtained. FINDINGS: There is cardiac enlargement. Mediastinal and hilar contours are normal. Aortic mural calcifications. Lungs are severely hyperaerated, with increased fine interstitial markings throughout. No definite focal pneumonia. There is no pneumothorax or pleural effusion. There is no focal osseous or soft tissue abnormality. XR/XR chest 2V IMPRESSION: Cardiomegaly. Severe COPD without definite superimposed active disease. Electronically signed by: Abhijeet Pearl MD 10/30/2024 04:14 PM EDT
--- NOTE | ~2024-10-30 | CT_ITS ---
EXAMINATION: CT HEAD WITHOUT CONTRAST CLINICAL INFORMATION: Fall, positive AC. and HS COMPARISON: CT brain 12/06/2023 TECHNIQUE: Contiguous axial imaging was performed from the skull base to vertex without intravenous administration of contrast. This CT examination was performed using dose optimization techniques as appropriate, variously including the following: *Automated exposure control *Adjustment of mA and/or kV according to patient size (this includes techniques or standardized protocols for targeted exams where dose is matched to indication/reason for exam; i.e. extremities or head) *Use of iterative reconstruction technique FINDINGS: There is no acute intra-axial, extra-axial bleed, masses or midline shift is no acute infarction evolution. There is no edema. The winston to white matter differentiation is maintained normal. The lateral ventricles are symmetrical in size and configuration without enlargement. Bone windows reveal no calvarial abnormality. There is no scalp soft tissue abnormality. Bilateral paranasal sinuses and mastoid air are well-aerated. Incidental finding of midline torus palatinus CT/CT head/brain wo IV con IMPRESSION: No acute intracranial process seen. Electronically signed by: Lev Dominique MD 10/30/2024 04:57 PM EDT
--- NOTE | ~2024-10-30 | US_ITS ---
CLINICAL HISTORY: near syncope US bilateral carotid duplex Comparison: None Findings: No significant plaque within the common carotid arteries. No significant plaque within the carotid bulbs. Minimal plaque within the internal carotid arteries proximally . Waveforms are normal morphology. Peak systolic and end-diastolic velocities: Right CCA: 76.0 cm/s Right ICA: 80.6 cm/s Right ICA EDV: 14.1 cm/sec Right systolic ICA/CCA ratio: 0.7 Right ECA: Unremarkable Right vertebral artery flow antegrade. Left CCA: 55.5 cm/s Left ICA: 52.1 cm/s Left ICA EDV: 8.6 cm/sec Left systolic ICA/CCA ratio: 0.9 Left ECA: Unremarkable Left vertebral artery flow antegrade. Criteria for grading carotid stenosis Stenosis % ICA PSV cm/s ICA/CCA PSV ratio ICA EDV 0-50% <125 <2.0 <40 50-69% 125-230 2.0-4.0 40-100 70% + > 230 >4.0 >100 Impression: 1. Normal carotid velocities, no significant stenosis (0-49% stenosis) This document has been electronically signed by: Efrain Marquis MD on 10/31/2024 11:16:29
--- NOTE | ~2024-10-30 | CT_ITS ---
EXAMINATION: CT CERVICAL SPINE WITHOUT CONTRAST CLINICAL INFORMATION: Fall, head injury. COMPARISON: None available. TECHNIQUE: 3 mm thin axial and reformatted 2 mm thin sagittal and coronal images of cervical spine were obtained. This CT examination was performed using dose optimization techniques as appropriate, variously including the following: *Automated exposure control *Adjustment of mA and/or kV according to patient size (this includes techniques or standardized protocols for targeted exams where dose is matched to indication/reason for exam; i.e. extremities or head) *Use of iterative reconstruction technique DLP: 871 mGy/cm. FINDINGS: There is maintained cervical lordosis. The vertebral heights and alignment and disc heights are maintained normal. The craniovertebral junction and the C1-C2 alignment is normal. There is mild spondylosis at the C1-C2 disc level and calcification of annular ligament. There is no visible acute fracture or dislocation seen. There is mild rotatory subluxation at the C1-C2 disc level likely related to spasm The neural foramina are patent bilaterally. There is mild left C2-3, bilateral C3-4, C4-5-7 joint arthropathy and hypertrophy. No aggressive lytic or sclerotic process seen. The pharyngeal airway is widely patent. No abnormal neck mass or abnormal lymphadenopathy seen thyroid lobes are symmetric and normal. Mild emphysematous changes of both lung apices without any acute process. CT/CT cervical spine wo IV con IMPRESSION: No acute fracture or dislocation. Mild DJD. Fleischner guidelines were followed. Electronically signed by: Lev Dominique MD 10/30/2024 05:02 PM EDT
--- NOTE | 2024-10-30 15:40 | ED_ITS ---
HPI - General Adult General Chief complaint: Fall Stated complaint: falling, unable to breath Time Seen by Provider: 10/30/24 18:05 Source: patient and family (grand daughter) Mode of arrival: ambulatory Limitations: no limitations History of Present Illness ED Provider: RAMY FRAIRE PA-C HPI narrative: 79 year old female with pmhx significant for chronic hypoxemic respiratory failure due to COPD on home O2 (2 L baseline), GERD, HTN, mood disorder, mixed HLD, atrial fibrillation on Eliquis, CHF with reduced ejection fraction presents to the ED today with her granddaughter for evaluation of increasing dyspnea on exertion x3 days. Patient was recently admitted to our facility from 10/21/2024 to 10/26/2024 for treatment of congestive heart failure. During this stay, her furosemide was discontinued and she was started on torsemide 40 mg twice daily. She reports compliance with this medication at home. States she felt well on discharge however over the last 3 days, she has had increasing shortness of breath when exerting herself. Reports having difficulty with ADLs due to this. She has not had to increase her oxygen at home. Reports feeling weak on standing. Reports at least 3 falls since she was discharged from our facility due to her weakness. She reports a fall this morning where she fell backwards onto her buttocks, striking her head against the tub. Unclear if there was any loss of consciousness. She is anticoagulated on Eliquis. Endorsing pain to left foot/ankle however she is not sure whether this injury occurring today were records pain is secondary to increased lower extremity swelling. Reports increased swelling to bilateral lower extremities. Reports 3 lb weight gain overnight. Weighs herself daily. Denies fever, chills, chest pain. Related Data Home Medications ?Medication ?Instructions ?Recorded ?Confirmed gabapentin 100 mg capsule 100 mg PO TID PRN Pain 09/07/24 10/26/24 rosuvastatin 5 mg tablet 2.5 mg PO BEDTIME 09/07/24 10/26/24 trolamine salicylate 10 % topical 1 appl topical DAILY PRN Pain 09/07/24 10/26/24 cream (Aspercreme) cyanocobalamin (vitamin B-12) 100 100 mcg PO DAILY 10/21/24 10/26/24 mcg tablet (Vitamin B-12) folic acid 800 mcg tablet 0.8 mg PO DAILY 10/21/24 10/26/24 pantoprazole 40 mg tablet,delayed 40 mg PO DAILY@0630 10/21/24 10/26/24 release ammonium lactate 12 % topical cream 1 appl topical DAILY 10/30/24 Previous Rx's ?Medication ?Instructions ?Recorded apixaban 5 mg tablet (Eliquis) 5 mg PO BID 90 days #180 tabs 12/15/23 compr.stocking,knee,long,small #2 ea 01/08/24 tiotropium bromide 2.5 2 puff inhalation DAILY copd, 30 06/01/24 mcg/actuation mist for inhalation days #4 grams (Spiriva Respimat) cholecalciferol (vitamin D3) 50 50 mcg PO DAILY 90 days #90 caps 06/11/24 mcg (2,000 unit) capsule metoprolol succinate 100 mg 100 mg PO DAILY 90 days #90 tabs 08/05/24 tablet,extended release 24 hr cimetidine 400 mg tablet 400 mg PO BID 30 days #60 tabs 09/21/24 levalbuterol tartrate 45 2 puff inhalation Q4-6H PRN 10/09/24 mcg/actuation aerosol inhaler shortness of breath 30 days #15 grams lorazepam 0.5 mg tablet 0.5 mg PO TID PRN anxiety 30 days 10/19/24 #90 tabs magnesium oxide 400 mg (241.3 mg 400 mg PO BIDPC #180 tabs 10/23/24 magnesium) tablet potassium chloride 20 mEq/15 mL 20 meq (15 mL) PO DAILY #1,500 mL 10/23/24 oral liquid torsemide 20 mg tablet 40 mg PO BID #360 tabs 10/23/24 fluticasone furoate 200 1 inh inhalation DAILY #60 ea 10/28/24 mcg-vilanterol 25 mcg/dose inhalation powder (Breo Ellipta) Allergies Allergy/AdvReac Type Severity Reaction Status Date / Time Sulfa (Sulfonamide Allergy Intermediate nausea, Verified 10/30/24 15:43 Antibiotics) vomiting Review of Systems 2 Review of Systems: Yes all other systems are reviewed and are negative PMFSH Past Medical History Attestation statement: The following information was validated with the patient. Source: old records reviewed and obtained from family (grand daughter) Medical History Respiratory failure with hypoxia Hypertension CHF (congestive heart failure) PAF (paroxysmal atrial fibrillation) Congestive heart failure Atrial fibrillation with rapid ventricular response Congestive heart failure Acute hypoxemic respiratory failure Encounter for cardioversion procedure Atrial fibrillation with RVR Acute exacerbation of congestive heart failure Acute on chronic hypoxic respiratory failure Acute HFrEF (heart failure with reduced ejection fraction) Chronic lung disease Skin lesion Dyslipidemia Cough due to DAISY inhibitor Neck pain GERD (gastroesophageal reflux disease) Aortic regurgitation Right hand pain Leg edema COPD (chronic obstructive pulmonary disease) Allergic rhinitis Anxiety Surgical History Carpal tunnel syndrome, right History of bilateral cataract extraction History of partial hysterectomy Family History Family History Father Medical history unknown Mother Medical history unknown Social History Social History Household Members: None Housing: House Do you presently have visiting nurse or other home services: No Alcohol intake: current Alcohol intake frequency: a few times a week Alcohol type: other Patient Tobacco Use Status: Former Tobacco user Tobacco use type: Cigarette e-Cigarette/Vaping Use: Never Used Second Hand Smoke Exposure: Yes Advance Directives: No Advance Directives Information Provided: Yes Advance Directives Date on File: 08/25/20 Do you have a plan to hurt others: No Plan service: No Current occupational status: retired Cognitive needs: No Hearing needs: No Vision needs: No Physical Exam ED Vital Signs: Vital Signs - 24 hr 10/30/24 15:41 10/30/24 18:00 10/30/24 18:15 Temperature 97.7 F 97.9 F Pulse Rate 88 84 84 Respiratory Rate 18 17 Blood Pressure 131/57 L 109/59 L 109/59 L Pulse Oximetry 99 94 Oxygen Delivery Method Nasal Cannula Nasal Cannula Oxygen Flow Rate 2 10/30/24 18:15 10/30/24 18:15 10/30/24 18:57 Temperature Pulse Rate 87 92 Respiratory Rate Blood Pressure 130/88 123/56 L 123/56 L Pulse Oximetry Oxygen Delivery Method Oxygen Flow Rate 10/30/24 19:02 10/30/24 19:02 Temperature 97.2 F 97.7 F Pulse Rate 69 92 Respiratory Rate 22 H Blood Pressure 123/56 L 144/57 H Pulse Oximetry 93 Oxygen Delivery Method Nasal Cannula Oxygen Flow Rate 2 BMI result Body Mass Index 19.7 satting 94-99% on 2L General: chronically ill appearing Skin: Warm, dry, intact. No rashes or lesions. Head: Normocephalic, atraumatic. EENT: Hearing is intact b/l. Conjunctiva clear. PERRLA. EOM intact. Moist mucous membranes.? Neck: Supple without LAD Cardiac: Chest wall symmetric. RRR Lungs: Normal respiratory effort without accessory muscle use. Lung Sounds diminished bilaterally, faint crackles to bilateral bases. Abdomen: Soft, non-tender, non-distended. No rebound tenderness or guarding. Positive BS x4. Ext: 2+ pitting edema to b/l LEs. no calf tenderness b/l Neuro: AOx3. Normal speech Course Course Course Narrative: This is an RME performed by Bianka Mcpherson CNP: Additional HPI, ROS, PE not included below will be deferred to primary provider. Patient is an 79-year-old female who presents to the emergency department for evaluation. Evidently was here approximately 1 week ago with similar complaints. Has been having shortness of breath, dyspnea on exertion. Has had 3 falls since her most recent ED visit. This morning had a fall where she fell backwards onto her buttock striking her head against the tub, not certain whether there was any loss of consciousness. Anticoagulated on Eliquis. Endorsing pain to the left foot/ankle, not certain whether she injured this today during the fall Plan: Serum labs, EKG, CT, XR foot/ankle Reevaluation(s) Reevaluation #1: 2004 -- chemistry without leukocytosis or left shift. Normocytic anemia, H and H stable when compared to priors. VBG showing metabolic alkalosis. Chemistry without acute electrolyte abnormality requiring intervention. Carbon dioxide 33 which appears to be around patient's baseline with COPD. BUN slightly elevated to 23, normal creatinine. Liver function around patient's baseline. Initial troponin WNL, repeat pending. EKG showing rate controlled atrial fibrillation with a rate of 95 beats per minute, QT 374, QTC 469. No acute ischemic changes or ST elevations. BNP elevated to 2562, upward trending from BNP of 1868 approximately 1 week ago. Negative COVID, flu, RSV. > CT head/brain without intracranial bleed or fracture. CT cervical spine without fracture or subluxation. X-ray of left foot/ankle showing dorsal and lateral soft tissue swelling without noted fracture or dislocation. > ordered IV lasix > on ambulatory O2, patient has sustained around 93% on oxygen. Reporting increased shortness of breath on exertion and fatigue by the end of ambulation. Given elevated BNP and worsening SCOTT, admission discussed with hospitalist, Dr. Coyle who has accepted patient admission for further treatment of CHF. patient and grand daughter agreeable. Medications Administered Discontinued Medications Generic Name Dose Route Start Last Admin Trade Name Kathrin PRN Reason Stop Dose Admin Furosemide 80 mg 10/30/24 20:07 10/30/24 20:54 Furosemide 100 Mg/10 Ml Vial IVPUSH 10/30/24 20:08 80 mg ONCE ONE Administration Protocol Torsemide 40 mg 10/30/24 18:33 10/30/24 18:57 Torsemide 20 Mg Tablet PO 10/30/24 18:34 40 mg ONCE ONE Administration Protocol Medical Decision Making Medical Decision Making MDM Narrative: 79 year old female with pmhx significant for chronic hypoxemic respiratory failure due to COPD on home O2 (2 L baseline), GERD, HTN, mood disorder, mixed HLD, atrial fibrillation on Eliquis, CHF with reduced ejection fraction presents to the ED today with her granddaughter for evaluation of increasing dyspnea on exertion x3 days. Satting 93% on 2 L nasal cannula. Afebrile. She is chronically ill-appearing however no acute distress. Global weakness 4/5 throughout. Mild increased effort of breathing. No tripoding. Breath sounds decreased bilaterally with faint crackles to bases. There is 2+ pitting edema to bilateral lower extremities. No calf tenderness bilaterally. Differential diagnosis includes anemia, electrolyte abnormality, CHF, ACS, arrhythmia, failure to thrive, bronchitis, pneumonia Plan for labs, viral swabs, ekg, cxr, vbg, re-evaluation. Plan for ct head/c spine, xr foot/ankle Differential Diagnosis Differential Diagnoses: The differential diagnosis associated with the presentation includes as above. Admission/Observation Consideration of admission/observation: Escalation of care including admission/observation considered patient admitted to medicine for CHF exacerbation Consult Healthcare Provider Management of the patient was discussed with: Hospitalist (dr. coyle) Lab Data [facility] Lab Attestation statement: I reviewed the patient's lab results. as above. 10/30/24 16:41 10/30/24 16:41 Labs: Lab Results 10/30/24 10/30/24 10/30/24 Range/Units 16:41 19:41 19:46 WBC 8.3 (4.8-10.8) X10*3/uL RBC 4.20 (4.20-5.50) X10*6/uL Hgb 10.8 L (12.0-16.0) g/dl Hct 35.9 L (37.0-47.0) % MCV 85.5 (80.0-98.0) fL MCH 25.7 L (27.0-33.0) pg MCHC 30.1 L (31.0-35.0) g/dl RDW 17.0 H (11.0-16.0) % Plt Count 189 (160-400) X10*3/uL MPV 10.7 (9.4-12.3) fL Immature Gran % (Auto) 0.5 H (0.0-0.4) % Neut % (Auto) 70.6 (45-73) % Lymph % (Auto) 15.5 L (20-40) % [place] % (Auto) 11.3 H (2-11) % Eos % (Auto) 1.3 (0-4) % Baso % (Auto) 0.8 (0-2) % Lymph # (Auto) 1.3 (1.2-4.9) X10*3/uL [place] # (Auto) 0.9 (0.1-1.2) X10*3/uL Eos # (Auto) 0.1 (0.0-0.4) X10*3/uL Baso # (Auto) 0.1 (0.0-0.2) X10*3/uL Abs Immat Gran (auto) 0.04 H (0.00-0.03) X10*3/uL Absolute Neuts (auto) 5.9 (2.0-8.3) x10*3/uL Absolute Nucleated RBC 0.020 H (0.0-0.012) X10*3/uL Nucleated RBC % (auto) 0.2 (0.0-0.2) /100WBC VBG pH 7.44 H (7.32-7.43) VBG pCO2 59 mmHg VBG pO2 26 mmHg VBG HCO3 40 H (22-26) mmol/L VBG O2 Saturation < 30.0 % VBG Base Excess 14.0 mmol/L Sodium 143 (135-145) mmol/L Potassium 3.3 (3.3-5.1) mmol/L Chloride 98 (96-108) mmol/L Carbon Dioxide 33 H (22-29) mmol/L Anion Gap 15 (12-20) BUN 23 H (9-16) mg/dL Creatinine 1.02 (0.5-1.4) mg/dL Estim Creat Clear Calc 36.2 Estimated GFR 52 Random Glucose 101 (60-115) mg/dL Calcium 9.5 (8.4-10.2) mg/dL Magnesium 1.8 (1.6-2.6) mg/dL Total Bilirubin 1.1 H (0.0-1.0) mg/dL AST 36 H (5-31) U/L ALT 25 (0-31) U/L Alkaline Phosphatase 159 H (39-117) U/L Troponin I High Sens 15.4 20.4 H (<3.5-17.0) ng/L B-Natriuretic Peptide 2562 H (<100) pg/mL Total Protein 6.5 (6.5-8.0) g/dL Albumin 4.0 (3.5-5.0) g/dL Influenza Type A (PCR) NEGATIVE (Negative) Influenza Type B (PCR) NEGATIVE (Negative) RSV RNA Qual (PCR) NEGATIVE (Negative) SARS-CoV-2 RNA (RT-PCR) NEGATIVE (Negative) Independent Interpretation I performed an independent interpretation of an: EKG, Plain X-Ray and CT Scan Interpretation: CT head/brain without acute bleed or skull fracture CT cervical spine without fracture Chest x-ray chronic appearing pulmonary edema, no effusion X-ray left foot/ankle without noted fracture EKG showing atrial fibrillation, rate of 95 beats per minute, QT 374, QTC 467, no acute ischemic changes or ST elevation Radiology Impression Discussion of test interpretation with radiology: I have reviewed the radiologist's reading. Radiologist Impression: Procedure(s): CT head/brain wo IV con Accession Number(s): [id number] cc: Rhea Mcpherson CNP; Parul Cartagena MD~ Report Number: [id number]: Total DLP = 0.00 mGy-cm EXAMINATION: CT HEAD WITHOUT CONTRAST CLINICAL INFORMATION: Fall, positive AC. and HS COMPARISON: CT brain 12/06/2023 TECHNIQUE: Contiguous axial imaging was performed from the skull base to vertex without intravenous administration of contrast. This CT examination was performed using dose optimization techniques as appropriate, variously including the following: *Automated exposure control *Adjustment of mA and/or kV according to patient size (this includes techniques or standardized protocols for targeted exams where dose is matched to indication/reason for exam; i.e. extremities or head) *Use of iterative reconstruction technique FINDINGS: There is no acute intra-axial, extra-axial bleed, masses or midline shift is no acute infarction evolution. There is no edema. The [place] to white matter differentiation is maintained normal. The lateral ventricles are symmetrical in size and configuration without enlargement. Bone windows reveal no calvarial abnormality. There is no scalp soft tissue abnormality. Bilateral paranasal sinuses and mastoid air are well-aerated. Incidental finding of midline torus palatinus CT/CT head/brain wo IV con IMPRESSION: No acute intracranial process seen. Procedure(s): CT cervical spine wo IV con Accession Number(s): [id number] cc: Rhea Mcpherson CNP; Parul Cartagena MD~ Report Number: [id number]: Total DLP = 861.00 mGy-cm EXAMINATION: CT CERVICAL SPINE WITHOUT CONTRAST CLINICAL INFORMATION: Fall, head injury. COMPARISON: None available. TECHNIQUE: 3 mm thin axial and reformatted 2 mm thin sagittal and coronal images of cervical spine were obtained. This CT examination was performed using dose optimization techniques as appropriate, variously including the following: *Automated exposure control *Adjustment of mA and/or kV according to patient size (this includes techniques or standardized protocols for targeted exams where dose is matched to indication/reason for exam; i.e. extremities or head) *Use of iterative reconstruction technique DLP: 871 mGy/cm. FINDINGS: There is maintained cervical lordosis. The vertebral heights and alignment and disc heights are maintained normal. The craniovertebral junction and the C1-C2 alignment is normal. There is mild spondylosis at the C1-C2 disc level and calcification of annular ligament. There is no visible acute fracture or dislocation seen. There is mild rotatory subluxation at the C1-C2 disc level likely related to spasm The neural foramina are patent bilaterally. There is mild left C2-3, bilateral C3-4, C4-5-7 joint arthropathy and hypertrophy. No aggressive lytic or sclerotic process seen. The pharyngeal airway is widely patent. No abnormal neck mass or abnormal lymphadenopathy seen thyroid lobes are symmetric and normal. Mild emphysematous changes of both lung apices without any acute process. CT/CT cervical spine wo IV con IMPRESSION: No acute fracture or dislocation. Mild DJD. Fleischner guidelines were followed. Procedure(s): XR foot LT min 3V Accession Number(s): [id number] cc: Rhea Mcpherson CNP; Physician,Unknown ~ EXAMINATION: XR FOOT, LEFT CLINICAL INFORMATION: fall, pain COMPARISON: 07/20/2016. TECHNIQUE: AP, lateral, and oblique views of the left foot. FINDINGS: No fracture, dislocation, or suspicious bone lesion. Mild osteoarthritic changes at the first MTP joint. Joint spaces otherwise normal. Normal plantar arch. The midfoot and hindfoot are grossly normal. There is dorsal soft tissue swelling of the foot. XR/XR foot LT min 3V IMPRESSION: Dorsal soft tissue swelling. No acute underlying bony abnormality. Electronically signed by: Abhijeet Pearl MD 10/30/2024 04:15 PM EDT Procedure(s): XR ankle LT min 3V Accession Number(s): [id number] cc: Rhea Mcpherson CNP; Physician,Unknown ~ EXAMINATION: XR ANKLE, LEFT CLINICAL INFORMATION: fall, pain COMPARISON: None available. TECHNIQUE: AP, lateral, and mortise views of the left ankle. FINDINGS: Mild diffuse osteopenia. No fracture, dislocation, or suspicious bone lesion. The mortise is intact. Talar dome is normal. The subtalar joints and calcaneus have a normal appearance. There is mild lateral and minimal medial soft tissue swelling. No ankle joint effusion. XR/XR ankle LT min 3V IMPRESSION: 1. No acute bony abnormalities. 2. Mild lateral greater than medial soft tissue swelling. Procedure(s): XR chest 2V Accession Number(s): [id number] cc: Rhea Mcpherson CNP; Physician,Unknown ~ EXAMINATION: XR CHEST CLINICAL INFORMATION: Shortness of breath COMPARISON: 10/21/2024, 09/06/2024. TECHNIQUE: 2 views of the chest were obtained. FINDINGS: There is cardiac enlargement. Mediastinal and hilar contours are normal. Aortic mural calcifications. Lungs are severely hyperaerated, with increased fine interstitial markings throughout. No definite focal pneumonia. There is no pneumothorax or pleural effusion. There is no focal osseous or soft tissue abnormality. XR/XR chest 2V IMPRESSION: Cardiomegaly. Severe COPD without definite superimposed active disease. Independent Historian Clinical information obtained from an independent historian. History obtained from or confirmed by: Other (Granddaughter) External Record Review External record reviewed: Inpatient record, Office record, Outpatient record, Prior outpatient labs, Prior outpatient radiology, Primary care record and Outside ED record Prescription Management I considered prescription management with: Other (Torsemide) Chronic Conditions Patient?s care impacted by: Other (COPD, CHF) Social Determinants Patient?s care significantly limited by Social Determinants of Health including: Other Social Determinant of Health Critical Care Time Critical Care Time Critical Care Time: Yes Total Critical Care Time: 35 Attestation: Critical care time in the amount of 35 minutes has been provided to the patient in terms of direct patient care, frequent reevaluation, consultation with hospitalist, review and interpretation of medical data and results, and management of potentially life-threatening conditions. This is all outside of any medical procedures. Discharge Plan Discharge Clinical Impression: CHF (congestive heart failure), Atrial fibrillation Patient Disposition: Admitted As Inpatient
--- NOTE | 2024-10-30 15:43 | ECG_ITS ---
Test Reason : SOB Blood Pressure : */* mmHG Vent. Rate : 95 BPM Atrial Rate : * BPM P-R Int : * ms QRS Dur : 86 ms QT Int : 374 ms P-R-T Axes : * 270 -66 degrees QTcB Int : 469 ms Atrial fibrillation Right superior axis deviation Anterior infarct , age undetermined Abnormal ECG When compared with ECG of 21-Oct-2024 15:39, Left anterior fascicular block is no longer Present Referred By: Rhea Mcpherson Electronically Signed By: Basilio Corral
[2024-10-30 16:45] LABS: MANUAL DIFF FLAG NO
[2024-10-30 16:55] LABS: Basophils Absolute Auto 0.1 X10*3/uL (0.0-0.2); Basophils Percent Auto 0.8 % (0-2); Eosinophils Absolute Auto 0.1 X10*3/uL (0.0-0.4); Eosinophils Percent Auto 1.3 % (0-4); Hematocrit 35.9 % (37.0-47.0); Hemoglobin 10.8 g/dl (12.0-16.0); Imm Gran Abs Auto 0.04 X10*3/uL (0.00-0.03); Imm Gran Pct Auto 0.5 % (0.0-0.4); Lymphocytes Absolute Auto 1.3 X10*3/uL (1.2-4.9); Lymphocytes Percent Auto 15.5 % (20-40); Mean Corpuscular HGB Conc 30.1 g/dl (31.0-35.0); Mean Corpuscular Hemoglobin 25.7 pg (27.0-33.0); Mean Corpuscular Volume 85.5 fL (80.0-98.0); Mean Platelet Volume 10.7 fL (9.4-12.3); Monocytes Absolute Auto 0.9 X10*3/uL (0.1-1.2); Monocytes Percent Auto 11.3 % (2-11); NRBC Pct Auto 0.2 /100WBC (0.0-0.2); Neutrophils Absolute Auto 5.9 x10*3/uL (2.0-8.3); Neutrophils Percent Auto 70.6 % (45-73); Platelet Count 189 X10*3/uL (160-400); White Blood Count 8.3 X10*3/uL (4.8-10.8)
[2024-10-30 17:07] LABS: Alanine Aminotransferase 25 U/L (0-31); Alkaline Phosphatase 159 U/L (39-117); Anion Gap 15 (12-20); Aspartate Amino Transferase 36 U/L (5-31); Bilirubin Total 1.1 mg/dL (0.0-1.0); Blood Urea Nitrogen 23 mg/dL (9-16); Calcium 9.5 mg/dL (8.4-10.2); Carbon Dioxide 33 mmol/L (22-29); Chloride 98 mmol/L (96-108); Creatinine Clr Calc Pharmacy 36.2; Estimated Glomerular Filt Rate 52; Glucose Random 101 mg/dL (60-115); Magnesium 1.8 mg/dL (1.6-2.6); Potassium 3.3 mmol/L (3.3-5.1); Sodium 143 mmol/L (135-145); Total Protein 6.5 g/dL (6.5-8.0)
[2024-10-30 17:13] LABS: B Type Natriuretic Peptide 2562 pg/mL (<100)
[2024-10-30 17:14] LABS: Troponin-I High Sensitivity 15.4 ng/L (<3.5-17.0)
[2024-10-30 17:28] LABS: Influenza A PCR NEGATIVE (Negative); Influenza B PCR NEGATIVE (Negative); Resp Syncy Virus RNA Qual PCR NEGATIVE (Negative); SARS COV2 PCR INHOUSE NEGATIVE (Negative)
[2024-10-30] MEDS: Torsemide 20 MG TABLET 40 MG PO (18:57)
[2024-10-30 19:51] LABS: VBG HCO3 40 mmol/L (22-26); VBG O2 % Saturation < 30.0 %; VBG pCO2 59 mmHg; VBG pH 7.44 (7.32-7.43); VBG pO2 26 mmHg
[2024-10-30 19:51] LABS: Venous Blood Gas Refer to POC result
[2024-10-30 20:10] LABS: Troponin-I High Sensitivity 20.4 ng/L (<3.5-17.0)
[2024-10-30] MEDS: Furosemide 100 MG/10 ML VIAL 80 MG IVPUSH (20:54)
--- NOTE | 2024-10-30 21:03 | P.HPHOSP_ITS ---
History of Present Illness Date of Service: 10/30/24 <[facility] - Last Filed: 10/31/24 00:58> Attending physician on admission: Antelmo Coyle <[facility] - Last Filed: 10/31/24 00:58> Chief Complaint: Weakness, near fainting spell in bathroom <[facility] - Last Filed: 10/31/24 00:58> Patient is an 79-year-old female with past medical history of COPD/emphysema, atrial fibrillation on Eliquis,HFpEF on torsemide, recent weight loss with dysphagia, chronic GERD, insomnia, osteoarthritis, non STEMI, vitamin- D deficiency was driven into the ED by her granddaughter status post an episode involving dizziness and weakness while standing at the bathroom sink where suddenly patient fell backwards and remembers falling on her right side and hitting her head on the wall but no loss of consciousness per patient. Patient lives alone and no one else was at home at the time of the event. Patient does not wear a emergency or lifeline device. Patient crawled from the bathroom to the location of her cell phone and called her daughter. Her daughter arrived and patient was able to get back to bed and as she went through the next few hours continued to feel weaker and worse overall with nonspecific symptoms. Patient denied any chest pain throughout all of this. Patient denies history of seizure or stroke. Patient was wearing her oxygen and is normally on 2 L at home. Neuro exam currently is reassuring. CT of the head negative for any acute findings. Patient is on Eliquis. CT of the cervical spine negative for acute fracture or dislocation. Patient was complaining of left foot pain after her fall and x-ray indicated dorsal soft tissue swelling but no acute fracture or dislocation. Ankle x-ray no acute bony abnormalities but does show mild lateral greater than medial soft tissue swelling. Patient is currently able to bear weight on the affected foot. Patient is using walker at this time. Chest x-ray indicates cardiomegaly, severe hyper aeration of lungs with increased interstitial markings throughout, but no evidence of pneumonia pneumothorax or pleural effusion. Patient was recently discharged from the hospital last Saturday for bilateral lower extremity edema and was changed from Lasix to torsemide. It was recommended per PT that patient attend short-term rehab but patient refused and preferred to do rehab at home. Patient has become more dependent on her walker over the last week due to generalized weakness. Patient also reports problems with swallowing both food and medications. In addition patient reports decrease in appetite and BMI today is 19.7. Patient being admitted for near syncopal event, exacerbation of CHF and COPD with no acute hypoxia or signs of sepsis. Patient has been contemplating assisted living but is overwhelmed with the idea that she has to sell her home and figure out how she is going to pay for the service. <SHEEBA Rajput - Last Filed: 10/31/24 00:58> Review of Systems 2 Review of Systems: Patient denies any current chest pain, shortness of breath at rest, abdominal pain, nausea, vomiting and diarrhea. Patient has been having issues with constipation including straining but no vasovagal episodes while on the commode. Patient reports ongoing GERD like symptoms and improved with the medications she is currently on. Patient states her appetite has been waning and is eating less overall and currently notes that her weight is down. Patient denies any lower extremity edema since starting the torsemide. Patient usually uses 2 L nasal cannula O2 at home. Patient denies any headaches or visual changes. <SHEEBA Rajput - Last Filed: 10/31/24 00:58> Yes all other systems are reviewed and are negative <SHEEBA Rajput - Last Filed: 10/31/24 00:58> [facility] Medical History: Medical History Respiratory failure with hypoxia Hypertension CHF (congestive heart failure) PAF (paroxysmal atrial fibrillation) Congestive heart failure Atrial fibrillation with rapid ventricular response Congestive heart failure Acute hypoxemic respiratory failure Encounter for cardioversion procedure Atrial fibrillation with RVR Acute exacerbation of congestive heart failure Acute on chronic hypoxic respiratory failure Acute HFrEF (heart failure with reduced ejection fraction) Chronic lung disease Skin lesion Dyslipidemia Cough due to DAISY inhibitor Neck pain GERD (gastroesophageal reflux disease) Aortic regurgitation Right hand pain Leg edema COPD (chronic obstructive pulmonary disease) Allergic rhinitis Anxiety <SHEEBA Rajput - Last Filed: 10/31/24 00:58> Functional capacity: uses cane/walker <SHEEBA Rajput - Last Filed: 10/31/24 00:58> Patient : No <SHEEBA Rajput - Last Filed: 10/31/24 00:58> Family History: Family History Father Medical history unknown Mother Medical history unknown <SHEEBA Rajput - Last Filed: 10/31/24 00:58> Surgical History: Surgical History Carpal tunnel syndrome, right History of bilateral cataract extraction History of partial hysterectomy <SHEEBA Rajput - Last Filed: 10/31/24 00:58> Social History: Social History Household Members: None Housing: House Do you presently have visiting nurse or other home services: No Alcohol intake: current Alcohol intake frequency: a few times a week Alcohol type: other Patient Tobacco Use Status: Former Tobacco user Tobacco use type: Cigarette e-Cigarette/Vaping Use: Never Used Second Hand Smoke Exposure: No Advance Directives: No Advance Directives Information Provided: Yes Advance Directives Date on File: 08/25/20 Do you have a plan to hurt others: No Plan Patient : No service: No Current occupational status: retired Cognitive needs: No Hearing needs: No Vision needs: No <SHEEBA Rajput - Last Filed: 10/31/24 00:58> Ebola Risk: Travel/Contact With Anyone From Affected Area/s: No <SHEEBA Rajput - Last Filed: 10/31/24 00:58> Has Patient Experienced Ebola Symptoms: No <SHEEBA Rajput - Last Filed: 10/31/24 00:58> Meds Allergies/Adverse reactions: Allergies Allergy/AdvReac Type Severity Reaction Status Date / Time Sulfa (Sulfonamide Allergy Intermediate nausea, Verified 10/30/24 15:43 Antibiotics) vomiting <SHEEBA Rajput - Last Filed: 10/31/24 00:58> Home medications: Home Medications ?Medication ?Instructions ?Recorded ?Confirmed ?Last Taken ?Type gabapentin 100 mg capsule 100 mg PO TID PRN Pain 09/07/24 10/30/24 Unknown History rosuvastatin 5 mg tablet 2.5 mg PO BEDTIME 09/07/24 10/30/24 10/20/24 History trolamine salicylate 10 % topical 1 appl topical DAILY PRN Pain 09/07/24 10/30/24 Unknown History cream (Aspercreme) cyanocobalamin (vitamin B-12) 100 100 mcg PO DAILY 10/21/24 10/30/24 10/21/24 History mcg tablet (Vitamin B-12) folic acid 800 mcg tablet 0.8 mg PO DAILY 10/21/24 10/30/24 10/21/24 History pantoprazole 40 mg tablet,delayed 40 mg PO DAILY@0630 10/21/24 10/30/24 10/21/24 History release ammonium lactate 12 % topical cream 1 appl topical DAILY PRN Dry Skin 10/30/24 10/30/24 Unknown History lorazepam 0.5 mg tablet 0.5 mg PO BID PRN anxiety 10/30/24 10/30/24 Unknown History [facility] - Last Filed: 10/31/24 00:58> Physical Exam 2 Vital Signs and Narrative: Vital Signs: Last Vital Signs Temp 97.7 F 10/30/24 19:02 Pulse 93 10/30/24 20:53 Resp 25 H 10/30/24 20:53 BP 146/57 H 10/30/24 20:54 Pulse Ox 95 10/30/24 20:53 O2 Del Method Nasal Cannula 10/30/24 20:53 O2 Flow Rate 2 10/30/24 20:53 Oxygen Flow Rate 2 10/30/24 15:41 BMI result Body Mass Index 19.7 <[facility] - Last Filed: 10/31/24 00:58> Alert and orientated X3, able to give good history. Neuro: CN II-X11 intact, no deficits, visual acuity intact EYES: PERRLA, EOM intact ENT: hearing intact, uvula midline, lips moist, nares patent no epistaxis, thyroid palpated no goiter or nodules Cardiac: S1 S2 irregular, 2/6 systolic murmur, no JVD, no edema in Lower ext Pulmonary: lungs diminished bilaterally, patient using oxygen via nasal cannula Abdominal: BS active in all 4 quadrants, no guarding, tenderness, rebounding, no distention MSK: strength 4/5 upper and lower extremities : no CVA tenderness no bladder distension Extremities: no edema in lower extremities, PT and DP pulses palpable +2 Psych: mood stable, judgement and insight good Skin: No open wounds reported or seen on exam <[facility] - Last Filed: 10/31/24 00:58> Results Labs CBC and Chem 7: 10/30/24 16:41 10/30/24 16:41 <[facility] - Last Filed: 10/31/24 00:58> Labs: Laboratory Results - last 24 hr 10/30/24 10/30/24 16:41 19:46 MCV 85.5 MCH 25.7 L MCHC 30.1 L RDW 17.0 H Plt Count 189 MPV 10.7 Immature Gran % (Auto) 0.5 H Neut % (Auto) 70.6 Lymph % (Auto) 15.5 L [place] % (Auto) 11.3 H Eos % (Auto) 1.3 Baso % (Auto) 0.8 Lymph # (Auto) 1.3 [place] # (Auto) 0.9 Eos # (Auto) 0.1 Baso # (Auto) 0.1 Abs Immat Gran (auto) 0.04 H Absolute Neuts (auto) 5.9 Absolute Nucleated RBC 0.020 H Nucleated RBC % (auto) 0.2 VBG pH 7.44 H VBG pCO2 59 VBG pO2 26 VBG HCO3 40 H VBG O2 Saturation < 30.0 VBG Base Excess 14.0 Anion Gap 15 Estim Creat Clear Calc 36.2 Estimated GFR 52 Random Glucose 101 Calcium 9.5 Magnesium 1.8 Total Bilirubin 1.1 H AST 36 H ALT 25 Alkaline Phosphatase 159 H B-Natriuretic Peptide 2562 H Total Protein 6.5 Albumin 4.0 Influenza Type A (PCR) NEGATIVE Influenza Type B (PCR) NEGATIVE RSV RNA Qual (PCR) NEGATIVE SARS-CoV-2 RNA (RT-PCR) NEGATIVE <[facility] - Last Filed: 10/31/24 00:58> ECG Prior ECG tracings: not available for review <[facility]- - Last Filed: 10/31/24 00:58> Imaging Radiologist's Impressions: Impressions Ankle X-Ray 10/30/24 15:43 IMPRESSION: 1. No acute bony abnormalities. 2. Mild lateral greater than medial soft tissue swelling. Electronically signed by: Abhijeet Pearl MD 10/30/2024 04:16 PM EDT RP Cervical Spine CT 10/30/24 15:43 IMPRESSION: No acute fracture or dislocation. Mild DJD. Fleischner guidelines were followed. Electronically signed by: Lev Dominique MD 10/30/2024 05:02 PM EDT RP Chest X-Ray 10/30/24 15:43 IMPRESSION: Cardiomegaly. Severe COPD without definite superimposed active disease. Electronically signed by: Abhijeet Pearl MD 10/30/2024 04:14 PM EDT RP Foot X-Ray 10/30/24 15:43 IMPRESSION: Dorsal soft tissue swelling. No acute underlying bony abnormality. Electronically signed by: Abhijeet Pearl MD 10/30/2024 04:15 PM EDT RP Head CT 10/30/24 15:43 IMPRESSION: No acute intracranial process seen. Electronically signed by: Lev Dominique MD 10/30/2024 04:57 PM EDT RP <[facility] - Last Filed: 10/31/24 00:58> Assessment and Plan (1) Acute on chronic heart failure with preserved ejection fraction: Status: Acute <[facility] - Last Filed: 10/31/24 00:58> (2) COPD exacerbation: Status: Acute <[facility] - Last Filed: 10/31/24 00:58> Patient is an 79-year-old female with past medical history of COPD/emphysema, atrial fibrillation on Eliquis,HFpEF on torsemide, recent weight loss with dysphagia, chronic GERD, insomnia, osteoarthritis, non STEMI, vitamin- D deficiency being admitted under observation for CHF and COPD exacerbation with near syncopal episode and generalized weakness. Near-syncope - fall/ Left foot pain -Start checking orthostatics in the a.m. Q shift x3, continue bedrest -BNP 2562 -Cardiology consulted -Carotid Dopplers ordered -Troponin 15 then 20 -EKG pending, AFib on telemetry, ensure no AV block present -Telemetry and continuous pulse ox -Continue Eliquis and metoprolol -Last echo 10/14/2024 - EF 60-65% with moderate biatrial enlargement and mild mitral and aortic regurgitation with severely elevated right ventricular systolic pressure, no gross pericardial effusion -Hold torsemide -Tylenol for left foot pain, ice p.r.n., elevation, monitor for increasing swelling or discomfort HFrEF exacerbation, no hypoxia -continue telemetry and continuous pulse ox -given iv torsemide in the ER. holding additional torsemide per Dr. Coyle until patient is seen by Cardiology and orthostatics are completed -low-sodium diet, daily weights, measure I's and O's -fluid allowance 1500 mL per day COPD exacerbation, no hypoxia -Continue duo nebs and patient's home inhalers -Pulmonary consulted -Energy conservation principles discussed with patient at length, patient will use walker -Continue oxygen via nasal cannula, patient uses 2 L minimum at home -No indication for ABG or VBG at this time -Supportive care -Case management requested as patient has been considering assisted living HTN -metoprolol continues -Low Na diet GERD --continue PPI and substitute for cimetidine Generalized weakness -PT eval ordered, patient may be interested in short-term rehab BMI of 19.7 with intermittent loss of appetite/ dysphagia -nutritional consultation -ensure supplementation ordered -speech therapy eval ordered, aspiration precautions in place DVT prophylaxis: Eliquis PPI prophylaxis: Omeprazole Med rec completed Patient is a DNR DNI and MOLST was also completed today. Patient is agreeable to noninvasive ventilation at this time. <CINTHYA Rajput-[facility] - Last Filed: 10/31/24 00:58> Patient is an 79-year-old female with past medical history of COPD/emphysema, atrial fibrillation on Eliquis,HFpEF on torsemide, recent weight loss with dysphagia, chronic GERD, insomnia, osteoarthritis, non STEMI, vitamin- D deficiency being admitted under observation for CHF and COPD exacerbation with near syncopal episode and generalized weakness. Near-syncope - fall/ Left foot pain/ AFib on Eliquis/ hypertension/ hyperlipidemia -start checking orthostatics in the a.m. Q shift x3, continue bedrest -BNP 2562 -Cardiology consulted -Carotid Dopplers ordered -Troponin 15 than 20 -EKG pending, AFib on telemetry, ensure no AV block present -Telemetry and continuous pulse ox -Continue Eliquis and metoprolol -Last echo 10/14/2024 - EF 60-65% with moderate biatrial enlargement and mild mitral and aortic regurgitation with severely elevated right ventricular systolic pressure, no gross pericardial effusion -Hold torsemide -Tylenol for left foot pain, ice p.r.n., elevation, monitor for increasing swelling or discomfort HFrEF exacerbation, no hypoxia -continue telemetry and continuous pulse ox -given iv torsemide in the ER. holding additional torsemide per Dr. Coyle until patient is seen by Cardiology and orthostatics are completed -low-sodium diet, daily weights, measure I's and O's -fluid allowance 1500 mL per day COPD exacerbation, no hypoxia -continue duo nebs and patient's home inhalers -Pulmonary consulted -Energy conservation principles discussed with patient at length, patient will use walker -Continue oxygen via nasal cannula, patient uses 2 L minimum at home -No indication for ABG or VBG at this time -Supportive care -Case management requested as patient has been considering assisted living Generalized weakness/ BMI of 19.7 with intermittent loss of appetit/ dysphagia with GERD -PT eval ordered, patient may be interested in short-term rehab -nutritional consultation -ensure supplementation ordered -speech therapy eval ordered, aspiration precautions in place -continue PPI and substitute for cimetidine DVT prophylaxis: Eliquis PPI prophylaxis: Omeprazole Med rec completed Patient is a DNR DNI and MOLST was also completed today. Patient is agreeable to noninvasive ventilation at this time. <Antelmo Coyle MD - Last Filed: 10/31/24 01:00> Quality Stroke Does the patient have a stroke diagnosis?: No <SHEEBA Rajput - Last Filed: 10/31/24 00:58> Reason for No Anti-thrombotic by Day Two: N/A - Med Ordered <SHEEBA Rajput - Last Filed: 10/31/24 00:58> VTE Prior VTE?: No <Kimberly Jodi [facility] - Last Filed: 10/31/24 00:58> VTE Risk Level:: Medical - moderate - high <[facility] - Last Filed: 10/31/24 00:58> VTE Device Contraindication: N/A - Device Ordered <[facility] - Last Filed: 10/31/24 00:58> VTE Drug Contraindication: N/A - Med Ordered <[facility] - Last Filed: 10/31/24 00:58>
--- NOTE | 2024-10-30 21:40 | PHA.MEDREC ---
Addendum entered by Dennise Thomas [facility] 10/30/24 21:59: Reviewed by [facility] Original Note: Pharmacy Consult ? Medication Reconciliation Pharmacy has completed the medication reconciliation. Spoke with patient and she was able to confirm her medications. Patient confirmed she was just recently discharged here and was told to stop her Furosemide 40 tablet 2 BID and to start taking Torsemide 40mg tabs 1 BID and confirmed she has been compliant with that. She confirmed she is taking the Lorazepam 0.5mg tab BID as needed instead of TID due to taking it three times a day makes her too drowsy. She also confirmed her Rosuvastatin 5mg tab and confirmed she cuts the tabs in half and takes 2.5mg at bedtime.
[2024-10-30] MEDS: Sennosides 8.6 MG TABLET 17.2 MG PO (22:07)
[2024-10-30] MEDS: 0.9 % Sodium Chloride Flush 3 ML SYRINGE IVFLUSH (22:43)
[2024-10-31] VITALS (12 sets, daily range): BP systolic 128–149; BP diastolic 55–68; PULSE 83–113; RESP 16–20; TEMP 36.2–36.9; O2SAT 90–97; BMI 21.4
[2024-10-31] MEDS: Omeprazole 20 MG CAPSULE.DR PO (05:08)
[2024-10-31 06:04] LABS: Appearance Urine Clear; Color Urine Yellow; Glucose Urine UA Negative (Negative); Leukocyte Esterase Urine Trace (Negative); Nitrite Urine Negative (Negative); PH 7.5 (5.0-9.0); UMIC TRIGGER UA YES; Urine Blood Negative (Negative); Urine Ketones Negative (Negative); Urine Protein Trace mg/dL (Neg-Trace)
[2024-10-31 06:08] LABS: Bacteria Urine 4+ (None Seen); Hyaline Casts Urine 0-2 /LPF (0-2); RBC Urine 0-2 /HPF (0-2); Squamous Epithelial Cell Urine 0-2 /HPF (0-2)
[2024-10-31 06:23] LABS: MANUAL DIFF FLAG NO
[2024-10-31 06:26] LABS: Basophils Absolute Auto 0.1 X10*3/uL (0.0-0.2); Basophils Percent Auto 0.6 % (0-2); Eosinophils Absolute Auto 0.2 X10*3/uL (0.0-0.4); Hematocrit 33.1 % (37.0-47.0); Hemoglobin 10.2 g/dl (12.0-16.0); Imm Gran Abs Auto 0.03 X10*3/uL (0.00-0.03); Imm Gran Pct Auto 0.4 % (0.0-0.4); Lymphocytes Absolute Auto 1.2 X10*3/uL (1.2-4.9); Lymphocytes Percent Auto 14.4 % (20-40); Mean Corpuscular HGB Conc 30.8 g/dl (31.0-35.0); Mean Corpuscular Volume 84.2 fL (80.0-98.0); Mean Platelet Volume 9.7 fL (9.4-12.3); Monocytes Absolute Auto 0.9 X10*3/uL (0.1-1.2); Monocytes Percent Auto 11.2 % (2-11); Neutrophils Absolute Auto 5.7 x10*3/uL (2.0-8.3); Neutrophils Percent Auto 71.4 % (45-73); Platelet Count 202 X10*3/uL (160-400); Red Blood Count 3.93 X10*6/uL (4.20-5.50); Red Cell Distribution Width 16.7 % (11.0-16.0)
[2024-10-31 06:51] LABS: Alanine Aminotransferase 19 U/L (0-31); Albumin Level 3.6 g/dL (3.5-5.0); Alkaline Phosphatase 139 U/L (39-117); Anion Gap 14 (12-20); Aspartate Amino Transferase 32 U/L (5-31); Bilirubin Total 1.1 mg/dL (0.0-1.0); Blood Urea Nitrogen 19 mg/dL (9-16); Calcium 8.9 mg/dL (8.4-10.2); Carbon Dioxide 33 mmol/L (22-29); Chloride 100 mmol/L (96-108); Creatinine Clr Calc Pharmacy 47.8; Estimated Glomerular Filt Rate > 60; Glucose Random 105 mg/dL (60-115); Potassium 3.2 mmol/L (3.3-5.1); Sodium 144 mmol/L (135-145); Total Protein 5.8 g/dL (6.5-8.0)
[2024-10-31 07:08] LABS: Thyroid Stimulating Hormone 1.81 uIU/mL (0.32-4.0)
[2024-10-31] MEDS: Cholecalciferol (Vitamin D3) 25 MCG TABLET 50 MCG PO (07:52)
[2024-10-31] MEDS: Atorvastatin Calcium 10 MG TABLET PO (07:52)
[2024-10-31] MEDS: polyethylene glycoL 3350 17 GM POWD.PACK PO (07:52)
[2024-10-31] MEDS: 0.9 % Sodium Chloride Flush 3 ML SYRINGE IVFLUSH ×3 (07:52→23:49)
[2024-10-31] MEDS: Magnesium Oxide 400 MG TABLET PO ×2 (07:52→15:45)
[2024-10-31] MEDS: Folic Acid 1 MG TABLET PO (07:52)
[2024-10-31] MEDS: Apixaban 5 MG TABLET PO ×2 (07:53→21:48)
[2024-10-31] MEDS: LORazepam 0.5 MG TABLET PO ×2 (07:53→21:48)
[2024-10-31] MEDS: Potassium Chloride ER 20 MEQ TAB.ER.PRT PO (07:53)
[2024-10-31] MEDS: Acetaminophen 325 MG TABLET 650 MG PO ×3 (07:53→22:33)
[2024-10-31] MEDS: Famotidine 20 MG TABLET PO ×2 (07:53→21:48)
[2024-10-31] MEDS: Cyanocobalamin (Vitamin B-12) 100 MCG TABLET PO (07:53)
[2024-10-31] MEDS: Albuterol/Iprat 2.5/0.5MG 3 ML AMPUL.NEB INHALE ×3 (08:06→15:19)
--- NOTE | 2024-10-31 08:16 | P.PNIM_ITS ---
Subjective Subjective Date of Service: 10/31/24 Interval History: chf /presyncope Review of Systems mild tachycardia dizziness somewaht improving Review of Systems: Yes all other systems are reviewed and are negative Physical Exam 2 Vital Signs: Vital Signs: Last Vital Signs Temp 98.4 F 10/31/24 07:06 Pulse 94 10/31/24 08:07 Resp 18 10/31/24 08:07 BP 149/67 H 10/31/24 07:40 Pulse Ox 96 10/31/24 07:06 O2 Del Method Nasal Cannula 10/31/24 07:06 O2 Flow Rate 2 10/31/24 07:06 Oxygen Flow Rate 2 10/30/24 15:41 BMI result Body Mass Index 21.4 Appearance: Alert.? Oriented X3.. cvs: rrr, [id number] . res: air entry improving ,no rales or wheezinf abd: no rebound or guarding ,nt, bs present. ext pulses present , no cyanosis. neuro: axo3 , nonfocal. Objective Data Active Medications Acetaminophen (Acetaminophen 325 Mg Tablet) 650 mg PO Q6H PRN PRN Reason: Pain, Mild 1-3,fever,headache Last Admin: 10/31/24 07:53 Dose: 650 mg Documented By: DAYSI Albuterol/Ipratropium (Albuterol/Iprat 2.5/0.5mg 3 Ml Ampul.Neb) 3 ml INHALE RQ4H [facility] Last Admin: 10/31/24 08:06 Dose: 3 ml Documented By: JHOANA Apixaban (Apixaban 5 Mg Tablet) 5 mg PO BID [facility] Last Admin: 10/31/24 07:53 Dose: 5 mg Documented By: DAYSI Atorvastatin Calcium (Atorvastatin Calcium 10 Mg Tablet) 10 mg PO DAILY [facility] Last Admin: 10/31/24 07:52 Dose: 10 mg Documented By: DAYSI Calcium Carbonate (Calcium Carbonate 750 Mg Tab.Chew) 750 mg PO Q4H PRN PRN Reason: Heartburn Cyanocobalamin (Cyanocobalamin (Vitamin B-12) 100 Mcg Tablet) 100 mcg PO DAILY [facility] Last Admin: 10/31/24 07:53 Dose: 100 mcg Documented By: DAYSI Famotidine (Famotidine 20 Mg Tablet) 20 mg PO BID [facility] Last Admin: 10/31/24 07:53 Dose: 20 mg Documented By: DAYSI Fluticasone/Vilanterol (Fluticasone/Vilanterol 200/25 Blst.W.Dev) 1 puff INHALE DAILY [facility] Folic Acid (Folic Acid 1 Mg Tablet) 1 mg PO DAILY [facility] Last Admin: 10/31/24 07:52 Dose: 1 mg Documented By: DAYSI Lactic Acid (Ammonium Lactate 12 % Cream 140 Gm Tube) 1 appl TOPICAL DAILY PRN; Protocol PRN Reason: Dry Skin Lorazepam (Lorazepam 0.5 Mg Tablet) 0.5 mg PO BID PRN PRN Reason: anxiety Last Admin: 10/31/24 07:53 Dose: 0.5 mg Documented By: DAYSI Magnesium Hydroxide (Milk Of Magnesia 30 Ml Oral.Susp) 30 ml PO DAILY PRN PRN Reason: Constipation Magnesium Oxide (Magnesium Oxide 400 Mg Tablet) 400 mg PO BIDPC [facility] Last Admin: 10/31/24 07:52 Dose: 400 mg Documented By: DAYSI Melatonin (Melatonin 3 Mg Tablet) 6 mg PO BEDTIME PRN PRN Reason: Insomnia Omeprazole (Omeprazole 20 Mg Capsule.Dr) 20 mg PO DAILY@0630 [facility] Last Admin: 10/31/24 05:08 Dose: 20 mg Documented By: JARROD Ondansetron HCl (Ondansetron Hcl 4 Mg/2 Ml Vial) 4 mg IVPUSH Q8H PRN PRN Reason: Nausea and Vomiting Polyethylene Glycol (Polyethylene Glycol 3350 17 Gm Powd.Pack) 17 gm PO DAILY PRN PRN Reason: Constipation Last Admin: 10/31/24 07:52 Dose: 17 gm Documented By: DAYSI Potassium Chloride (Potassium Chloride Er 20 Meq Tab.Er.Prt) 20 meq PO DAILY [facility] Last Admin: 10/31/24 07:53 Dose: 20 meq Documented By: DAYSI Senna (Sennosides 8.6 Mg Tablet) 17.2 mg PO BEDTIME [facility] Last Admin: 10/30/24 22:07 Dose: 17.2 mg Documented By: LETICIA Sodium Chloride (0.9 % Sodium Chloride Flush 3 Ml Syringe) 3 ml IVFLUSH QSHIFT [facility] Last Admin: 10/31/24 07:52 Dose: 3 ml Documented By: DAYSI Tiotropium [place] (Tiotropium [place] 2.5 Mcg 1 Puff/2.5 Mcg Mist.Inhal) 2 puff INHALE DAILY [facility] Vitamin D (Cholecalciferol (Vitamin D3) 25 Mcg Tablet) 50 mcg PO DAILY [facility] Last Admin: 10/31/24 07:52 Dose: 50 mcg Documented By: DAYSI Labs 10/31/24 06:00 10/31/24 06:00 Labs: Laboratory Results - last 24 hr 10/30/24 10/30/24 10/31/24 16:41 19:46 05:30 MCV 85.5 MCH 25.7 L MCHC 30.1 L RDW 17.0 H Plt Count 189 MPV 10.7 Immature Gran % (Auto) 0.5 H Neut % (Auto) 70.6 Lymph % (Auto) 15.5 L [place] % (Auto) 11.3 H Eos % (Auto) 1.3 Baso % (Auto) 0.8 Lymph # (Auto) 1.3 [place] # (Auto) 0.9 Eos # (Auto) 0.1 Baso # (Auto) 0.1 Abs Immat Gran (auto) 0.04 H Absolute Neuts (auto) 5.9 Absolute Nucleated RBC 0.020 H Nucleated RBC % (auto) 0.2 VBG pH 7.44 H VBG pCO2 59 VBG pO2 26 VBG HCO3 40 H VBG O2 Saturation < 30.0 VBG Base Excess 14.0 Anion Gap 15 Estim Creat Clear Calc 36.2 Estimated GFR 52 Random Glucose 101 Calcium 9.5 Magnesium 1.8 Total Bilirubin 1.1 H AST 36 H ALT 25 Alkaline Phosphatase 159 H B-Natriuretic Peptide 2562 H Total Protein 6.5 Albumin 4.0 TSH Urine Color Yellow Urine Appearance Clear Urine pH 7.5 Ur Specific [place] 1.010 Urine Protein Trace Urine Glucose (UA) Negative Urine Ketones Negative Urine Blood Negative Urine Nitrite Negative Ur Leukocyte Esterase Trace H Urine RBC 0-2 Urine WBC 6-10 H Ur Squamous Epith Cells 0-2 Urine Bacteria 4+ Hyaline Casts 0-2 Influenza Type A (PCR) NEGATIVE Influenza Type B (PCR) NEGATIVE RSV RNA Qual (PCR) NEGATIVE SARS-CoV-2 RNA (RT-PCR) NEGATIVE 10/31/24 06:00 MCV 84.2 MCH 26.0 L MCHC 30.8 L RDW 16.7 H Plt Count 202 MPV 9.7 Immature Gran % (Auto) 0.4 Neut % (Auto) 71.4 Lymph % (Auto) 14.4 L [place] % (Auto) 11.2 H Eos % (Auto) 2.0 Baso % (Auto) 0.6 Lymph # (Auto) 1.2 [place] # (Auto) 0.9 Eos # (Auto) 0.2 Baso # (Auto) 0.1 Abs Immat Gran (auto) 0.03 Absolute Neuts (auto) 5.7 Absolute Nucleated RBC 0.000 Nucleated RBC % (auto) 0.0 VBG pH VBG pCO2 VBG pO2 VBG HCO3 VBG O2 Saturation VBG Base Excess Anion Gap 14 Estim Creat Clear Calc 47.8 Estimated GFR > 60 Random Glucose 105 Calcium 8.9 D Magnesium Total Bilirubin 1.1 H AST 32 H ALT 19 Alkaline Phosphatase 139 H B-Natriuretic Peptide Total Protein 5.8 L Albumin 3.6 TSH 1.81 Urine Color Urine Appearance Urine pH Ur Specific [place] Urine Protein Urine Glucose (UA) Urine Ketones Urine Blood Urine Nitrite Ur Leukocyte Esterase Urine RBC Urine WBC Ur Squamous Epith Cells Urine Bacteria Hyaline Casts Influenza Type A (PCR) Influenza Type B (PCR) RSV RNA Qual (PCR) SARS-CoV-2 RNA (RT-PCR) Assessment and Plan (1) COPD exacerbation: Status: Acute Assessment and Plan: 79-year-old female with past medical history of COPD/emphysema, atrial fibrillation on Eliquis,HFpEF on torsemide, recent weight loss with dysphagia, chronic GERD, insomnia, osteoarthritis, non STEMI, vitamin-D deficiency being admitted under observation for CHF and COPD exacerbation with near syncopal episode and generalized weakness. Near-syncope - fall/ Left foot pain/ AFib on Eliquis/ hypertension/ hyperlipidemia: BNP 2562 Troponin flat,EKG- AFib similar to . Last echo 10/14/2024 - EF 60-65% with moderate biatrial enlargement and mild mitral and aortic regurgitation with severely elevated right ventricular systolic pressure, no gross pericardial effusion plan:dizziness somewhat improving orthos negative Carotid Dopplers-Normal carotid velocities, no significant stenosis (0-49% stenosis) Telemetry and continuous pulse ox Continue Eliquis and metoprolol,adjusted torsemide 40 mg qd Paf :afib with rvr hr in 100's She is complaining of fatigue, dizziness and shortness of breath. continue bb,eliquis . foot pain; xray: Tylenol for left foot pain, ice p.r.n., elevation, monitor for increasing swelling or discomfort HFrEF exacerbation, no hypoxia-continue telemetry and continuous pulse ox s/p iv torsemide . plan: daily weights, measure I's and O's fluid allowance 1500 mL per day continue po torcemide . hypokalemia: repleted-added extra dose potassium in addition to her home dose. COPD exacerbation, no hypoxia seems improved nebs,po steriods Generalized weakness/ BMI of 19.7 with intermittent loss of appetit/ dysphagia with GERD -PT eval ordered, patient may be interested in short-term rehab -nutritional consultation -ensure supplementation ordered -speech therapy eval ordered, aspiration precautions in place -continue PPI and substitute for cimetidine DVT prophylaxis: Eliquis PPI prophylaxis: Omeprazole Case management requested as patient has been considering assisted living Patient is a DNR DNI and MOLST . Patient is agreeable to noninvasive ventilation at this time. ongooing need for stay:afib with rvr, dizziness: Patient has dizziness in setting of AFib-need tele monitoring, also monitor for symptoms, as per cardio may need cardioversion if does not improve. Quality Stroke Does the patient have a stroke diagnosis?: No Reason for No Anti-thrombotic by Day Two: N/A - Med Ordered VTE Prior VTE?: No VTE Risk Level:: Medical - moderate - high VTE Device Contraindication: N/A - Device Ordered VTE Drug Contraindication: N/A - Med Ordered
--- NOTE | 2024-10-31 11:15 | P.CONPL_ITS ---
History of Present Illness History of Present Illness Consult date: 10/31/24 Chief complaint: dyspnea Narrative: 79-year-old lady with underlying very severe COPD on 2 L of supplemental oxygen, patient of Dr. Rehman, also AFib on Eliquis, diastolic congestive heart failure, CAD admitted on 10/30/2024 with follow-up unclear etiology, but no clear loss of consciousness. Patient was admitted for evaluation of new syncopal event on a background exacerbation of underlying congestive heart failure and COPD in treated with bronchodilators and systemic glucocorticoids with improvement in her respiratory symptoms essentially to baseline. Review of Systems 2 Constitutional: Constitutional: Denies daytime sleepiness, Denies excessive sweating, Denies fatigue, Denies fever(s), Denies lethargy, Denies malaise, Denies night sweats, Denies snoring and Denies weight loss Eyes: Eyes: Denies blurry vision and Denies itchy eyes ENT: Denies nasal congestion, Denies post nasal drip, Denies sinus pain, Denies sinus pressure and Denies other ( Thrush) Cardiovascular: Cardiovascular: Denies chest pain, Denies pedal edema, Denies dyspnea, Denies orthopnea and Denies paroxysmal nocturnal dyspnea Respiratory: Respiratory: Denies cough, Denies hemoptysis, Denies excessive phlegm production, Denies dyspnea, Denies snoring and Denies wheezing Gastrointestinal: Gastrointestinal: Denies abdominal pain and Denies heartburn Musculoskeletal: Musculoskeletal: Denies myalgias, Denies arthralgias and Denies joint swelling Integumentary/Breasts: Skin/Breast: Denies rash Neurologic: Denies memory loss and Denies seizure-like activity Psychiatric: Psychiatric: Denies abnormal sleep pattern, Denies anxiety and Denies memory loss Endocrine: Endocrine: Denies excessive sweating, Denies fatigue and Denies heat intolerance Hematologic/Lymphatic: Hematologic/Lymphatic: Denies easy bruising Allergic/Immunologic: Allergic/Immunologic: Denies itchy eyes, Denies seasonal rhinorrhea and Denies wheezing PMFSH Past Medical History Medical History Respiratory failure with hypoxia Hypertension CHF (congestive heart failure) PAF (paroxysmal atrial fibrillation) Congestive heart failure Atrial fibrillation with rapid ventricular response Congestive heart failure Acute hypoxemic respiratory failure Encounter for cardioversion procedure Atrial fibrillation with RVR Acute exacerbation of congestive heart failure Acute on chronic hypoxic respiratory failure Acute HFrEF (heart failure with reduced ejection fraction) Chronic lung disease Skin lesion Dyslipidemia Cough due to DAISY inhibitor Neck pain GERD (gastroesophageal reflux disease) Aortic regurgitation Right hand pain Leg edema COPD (chronic obstructive pulmonary disease) Allergic rhinitis Anxiety Family History Family History Father Medical history unknown Mother Medical history unknown Surgical History Surgical History Carpal tunnel syndrome, right History of bilateral cataract extraction History of partial hysterectomy Social History Social History Household Members: None Housing: House Do you presently have visiting nurse or other home services: No Alcohol intake: current Alcohol intake frequency: a few times a week Alcohol type: other Patient Tobacco Use Status: Former Tobacco user Tobacco use type: Cigarette e-Cigarette/Vaping Use: Never Used Second Hand Smoke Exposure: No Advance Directives: No Advance Directives Information Provided: Yes Advance Directives Date on File: 08/25/20 Do you have a plan to hurt others: No Plan Patient : No service: No Current occupational status: retired Cognitive needs: No Hearing needs: No Vision needs: No Travel History Ebola Risk: Travel/Contact With Anyone From Affected Area/s: No Has Patient Experienced Ebola Symptoms: No Meds Allergies Allergy/AdvReac Type Severity Reaction Status Date / Time Sulfa (Sulfonamide Allergy Intermediate nausea, Verified 10/30/24 15:43 Antibiotics) vomiting Active Medications: Current Medications Acetaminophen (Acetaminophen 325 Mg Tablet) 650 mg PO Q6H PRN PRN Reason: Pain, Mild 1-3,fever,headache Last Admin: 10/31/24 07:53 Dose: 650 mg Albuterol/Ipratropium (Albuterol/Iprat 2.5/0.5mg 3 Ml Ampul.Neb) 3 ml INHALE RQ4H [facility] Last Admin: 10/31/24 08:06 Dose: 3 ml Apixaban (Apixaban 5 Mg Tablet) 5 mg PO BID [facility] Last Admin: 10/31/24 07:53 Dose: 5 mg Atorvastatin Calcium (Atorvastatin Calcium 10 Mg Tablet) 10 mg PO DAILY [facility] Last Admin: 10/31/24 07:52 Dose: 10 mg Calcium Carbonate (Calcium Carbonate 750 Mg Tab.Chew) 750 mg PO Q4H PRN PRN Reason: Heartburn Cyanocobalamin (Cyanocobalamin (Vitamin B-12) 100 Mcg Tablet) 100 mcg PO DAILY [facility] Last Admin: 10/31/24 07:53 Dose: 100 mcg Famotidine (Famotidine 20 Mg Tablet) 20 mg PO BID [facility] Last Admin: 10/31/24 07:53 Dose: 20 mg Fluticasone/Vilanterol (Fluticasone/Vilanterol 200/25 Blst.W.Dev) 1 puff INHALE DAILY [facility] Folic Acid (Folic Acid 1 Mg Tablet) 1 mg PO DAILY [facility] Last Admin: 10/31/24 07:52 Dose: 1 mg Lactic Acid (Ammonium Lactate 12 % Cream 140 Gm Tube) 1 appl TOPICAL DAILY PRN; Protocol PRN Reason: Dry Skin Lorazepam (Lorazepam 0.5 Mg Tablet) 0.5 mg PO BID PRN PRN Reason: anxiety Last Admin: 10/31/24 07:53 Dose: 0.5 mg Magnesium Hydroxide (Milk Of Magnesia 30 Ml Oral.Susp) 30 ml PO DAILY PRN PRN Reason: Constipation Magnesium Oxide (Magnesium Oxide 400 Mg Tablet) 400 mg PO BIDPC [facility] Last Admin: 10/31/24 07:52 Dose: 400 mg Melatonin (Melatonin 3 Mg Tablet) 6 mg PO BEDTIME PRN PRN Reason: Insomnia Omeprazole (Omeprazole 20 Mg Capsule.Dr) 20 mg PO DAILY@0630 [facility] Last Admin: 10/31/24 05:08 Dose: 20 mg Ondansetron HCl (Ondansetron Hcl 4 Mg/2 Ml Vial) 4 mg IVPUSH Q8H PRN PRN Reason: Nausea and Vomiting Polyethylene Glycol (Polyethylene Glycol 3350 17 Gm Powd.Pack) 17 gm PO DAILY PRN PRN Reason: Constipation Last Admin: 10/31/24 07:52 Dose: 17 gm Potassium Chloride (Potassium Chloride Er 20 Meq Tab.Er.Prt) 20 meq PO DAILY [facility] Last Admin: 10/31/24 07:53 Dose: 20 meq Prednisone (Prednisone 20 Mg Tablet) 40 mg PO DAILY [facility] Senna (Sennosides 8.6 Mg Tablet) 17.2 mg PO BEDTIME [facility] Last Admin: 10/30/24 22:07 Dose: 17.2 mg Sodium Chloride (0.9 % Sodium Chloride Flush 3 Ml Syringe) 3 ml IVFLUSH QSHIFT [facility] Last Admin: 10/31/24 07:52 Dose: 3 ml Tiotropium [place] (Tiotropium [place] 2.5 Mcg 1 Puff/2.5 Mcg Mist.Inhal) 2 puff INHALE DAILY [facility] Vitamin D (Cholecalciferol (Vitamin D3) 25 Mcg Tablet) 50 mcg PO DAILY [facility] Last Admin: 10/31/24 07:52 Dose: 50 mcg Home Medications ?Medication ?Instructions ?Recorded ?Confirmed ?Last Taken ?Type gabapentin 100 mg capsule 100 mg PO TID PRN Pain 09/07/24 10/30/24 Unknown History rosuvastatin 5 mg tablet 2.5 mg PO BEDTIME 09/07/24 10/30/24 10/20/24 History trolamine salicylate 10 % topical 1 appl topical DAILY PRN Pain 09/07/24 10/30/24 Unknown History cream (Aspercreme) cyanocobalamin (vitamin B-12) 100 100 mcg PO DAILY 10/21/24 10/30/24 10/21/24 History mcg tablet (Vitamin B-12) folic acid 800 mcg tablet 0.8 mg PO DAILY 10/21/24 10/30/24 10/21/24 History pantoprazole 40 mg tablet,delayed 40 mg PO DAILY@0630 10/21/24 10/30/24 10/21/24 History release ammonium lactate 12 % topical cream 1 appl topical DAILY PRN Dry Skin 10/30/24 10/30/24 Unknown History lorazepam 0.5 mg tablet 0.5 mg PO BID PRN anxiety 10/30/24 10/30/24 Unknown History Physical Exam 2 Vital Signs: Vital Signs: Last Vital Signs Temp 98.2 F 10/31/24 11:10 Pulse 98 10/31/24 11:10 Resp 20 10/31/24 11:10 BP 132/60 10/31/24 11:10 Pulse Ox 97 10/31/24 11:10 O2 Del Method Nasal Cannula 10/31/24 11:10 O2 Flow Rate 2 10/31/24 11:10 Oxygen Flow Rate 2 10/30/24 15:41 BMI result Body Mass Index 21.4 Const: General: no acute distress and alert Nutritional Appearance: not obese Orientation/consciousness: Other orientation findings ( oriented) HEENT: Head: Yes atraumatic Eyes: General: appearance normal, both eyes and all related structures S clerae: sclerae normal EOM: EOMs intact bilaterally Neck: Neck: Yes supple Lymphatic: no lymphadenopathy noted Resp: Effort & Inspection: normal respiratory effort and no use of accessory muscles Auscultation: clear to auscultation bilaterally Cardio: Rate: regular rate Rhythm: regular rhythm Heart sounds: no gallops, no murmurs and no rubs Skin: General skin exam: other ( warm) Extrem: General: No clubbing, No cyanosis and No edema Results Laboratory Findings 10/31/24 06:00 10/31/24 06:00 Abnormal lab findings: Abnormal Labs 10/30/24 10/30/24 10/30/24 16:41 19:41 19:46 RBC Hgb 10.8 L Hct 35.9 L MCH 25.7 L MCHC 30.1 L RDW 17.0 H Immature Gran % (Auto) 0.5 H Lymph % (Auto) 15.5 L [place] % (Auto) 11.3 H Abs Immat Gran (auto) 0.04 H Absolute Nucleated RBC 0.020 H VBG pH 7.44 H VBG HCO3 40 H Potassium Carbon Dioxide 33 H BUN 23 H Total Bilirubin 1.1 H AST 36 H Alkaline Phosphatase 159 H Troponin I High Sens 20.4 H B-Natriuretic Peptide 2562 H Total Protein Ur Leukocyte Esterase Urine WBC 10/31/24 10/31/24 05:30 06:00 RBC 3.93 L Hgb 10.2 L Hct 33.1 L MCH 26.0 L MCHC 30.8 L RDW 16.7 H Immature Gran % (Auto) Lymph % (Auto) 14.4 L [place] % (Auto) 11.2 H Abs Immat Gran (auto) Absolute Nucleated RBC VBG pH VBG HCO3 Potassium 3.2 L Carbon Dioxide 33 H BUN 19 H Total Bilirubin 1.1 H AST 32 H Alkaline Phosphatase 139 H Troponin I High Sens B-Natriuretic Peptide Total Protein 5.8 L Ur Leukocyte Esterase Trace H Urine WBC 6-10 H Assessment and Plan (1) COPD (chronic obstructive pulmonary disease): Status: Acute (2) Supplemental oxygen dependent: Status: Acute Plan Impression: 79-year-old lady with underlying very severe COPD on 2 L of supplemental oxygen admitted for workup of syncopal event with mild COPD exacerbation and treated with systemic glucocorticoids and bronchodilators with improvement of her respiratory symptoms essentially to baseline. Recommendations: Agree with current treatment regimen including bronchodilators and systemic glucocorticoids. Consider early prednisone taper. Procedures Date of Service Date of Service: 10/31/24
[2024-10-31] MEDS: Tiotropium Bromide 2.5 mcg 1 PUFF/2.5 MCG MIST.INHAL 2 PUFF INHALE (11:30)
[2024-10-31] MEDS: Fluticasone/Vilanterol 200/25 BLST.W.DEV 1 PUFF INHALE (11:30)
--- NOTE | 2024-10-31 11:31 | MHC.CM.PN ---
CM met with Patient and several family members and addressed IMM with Patient, providing her with the original and a copy has been placed on the chart. Patient lives alone in a house, uses a walker to assist with mobility, and was recently referred to [facility](Not sure if services ever started). Home/resume home O2 from [facility] and [facility] is Patient's goal and CM has initiated and will follow for dc planning. Granddaughter/Robin will transport to home, Daughter/Brii is HCP, and PCP is Dr. Parul Huang.
[2024-10-31] MEDS: Torsemide 20 MG TABLET 40 MG PO (12:34)
[2024-10-31] MEDS: predniSONE 20 MG TABLET 40 MG PO (12:34)
[2024-10-31] MEDS: Potassium Chloride Packet 20 MEQ PACKET 40 MEQ PO (12:35)
--- NOTE | 2024-10-31 12:51 | P.CONCA_ITS ---
History of Present Illness History of Present Illness Date of Service: 10/31/24 Requesting physician: Ayah Chavez Chief complaint: dyspnea Narrative: 79-year-old female presenting for shortness of breath and fatigue. In August 2024 she had episode of RSV and she developed atrial fibrillation during that admission. She previously had atrial fibrillation which was cardioverted. I reviewed the chart and I do not think that she was on an any arrhythmic drugs. Since her admission for RSV anymore she has been feeling tired and has no energy. She also feels dizzy at time. She is more short of breath. She has chronic COPD and has been on supplemental oxygen but she has worsened since then. It appears she was changed from furosemide to torsemide due to peripheral edema and has been experiencing some electrolyte issues 2. Denying any fevers or chills. Continues to be on 2 L/min supplemental oxygen. [facility] Past Medical History Medical History Respiratory failure with hypoxia Hypertension CHF (congestive heart failure) PAF (paroxysmal atrial fibrillation) Congestive heart failure Atrial fibrillation with rapid ventricular response Congestive heart failure Acute hypoxemic respiratory failure Encounter for cardioversion procedure Atrial fibrillation with RVR Acute exacerbation of congestive heart failure Acute on chronic hypoxic respiratory failure Acute HFrEF (heart failure with reduced ejection fraction) Chronic lung disease Skin lesion Dyslipidemia Cough due to DAISY inhibitor Neck pain GERD (gastroesophageal reflux disease) Aortic regurgitation Right hand pain Leg edema COPD (chronic obstructive pulmonary disease) Allergic rhinitis Anxiety Family History Family History Father Medical history unknown Mother Medical history unknown Surgical History Surgical History Carpal tunnel syndrome, right History of bilateral cataract extraction History of partial hysterectomy Social History Social History Household Members: None Housing: House Do you presently have visiting nurse or other home services: No Alcohol intake: current Alcohol intake frequency: a few times a week Alcohol type: other Patient Tobacco Use Status: Former Tobacco user Tobacco use type: Cigarette e-Cigarette/Vaping Use: Never Used Second Hand Smoke Exposure: No Advance Directives: No Advance Directives Information Provided: Yes Advance Directives Date on File: 08/25/20 Do you have a plan to hurt others: No Plan Patient : No service: No Current occupational status: retired Cognitive needs: No Hearing needs: No Vision needs: No Travel History Ebola Risk: Travel/Contact With Anyone From Affected Area/s: No Has Patient Experienced Ebola Symptoms: No Meds Allergies Allergy/AdvReac Type Severity Reaction Status Date / Time Sulfa (Sulfonamide Allergy Intermediate nausea, Verified 10/30/24 15:43 Antibiotics) vomiting Active Medications: Current Medications Acetaminophen (Acetaminophen 325 Mg Tablet) 650 mg PO Q6H PRN PRN Reason: Pain, Mild 1-3,fever,headache Last Admin: 10/31/24 07:53 Dose: 650 mg Albuterol/Ipratropium (Albuterol/Iprat 2.5/0.5mg 3 Ml Ampul.Neb) 3 ml INHALE RQ4H [facility] Last Admin: 10/31/24 11:30 Dose: 3 ml Apixaban (Apixaban 5 Mg Tablet) 5 mg PO BID [facility] Last Admin: 10/31/24 07:53 Dose: 5 mg Atorvastatin Calcium (Atorvastatin Calcium 10 Mg Tablet) 10 mg PO DAILY [facility] Last Admin: 10/31/24 07:52 Dose: 10 mg Calcium Carbonate (Calcium Carbonate 750 Mg Tab.Chew) 750 mg PO Q4H PRN PRN Reason: Heartburn Cyanocobalamin (Cyanocobalamin (Vitamin B-12) 100 Mcg Tablet) 100 mcg PO DAILY [facility] Last Admin: 10/31/24 07:53 Dose: 100 mcg Famotidine (Famotidine 20 Mg Tablet) 20 mg PO BID [facility] Last Admin: 10/31/24 07:53 Dose: 20 mg Fluticasone/Vilanterol (Fluticasone/Vilanterol 200/25 Blst.W.Dev) 1 puff INHALE DAILY [facility] Last Admin: 10/31/24 11:30 Dose: 1 puff Folic Acid (Folic Acid 1 Mg Tablet) 1 mg PO DAILY [facility] Last Admin: 10/31/24 07:52 Dose: 1 mg Lactic Acid (Ammonium Lactate 12 % Cream 140 Gm Tube) 1 appl TOPICAL DAILY PRN; Protocol PRN Reason: Dry Skin Lorazepam (Lorazepam 0.5 Mg Tablet) 0.5 mg PO BID PRN PRN Reason: anxiety Last Admin: 10/31/24 07:53 Dose: 0.5 mg Magnesium Hydroxide (Milk Of Magnesia 30 Ml Oral.Susp) 30 ml PO DAILY PRN PRN Reason: Constipation Magnesium Oxide (Magnesium Oxide 400 Mg Tablet) 400 mg PO BIDPC [facility] Last Admin: 10/31/24 07:52 Dose: 400 mg Melatonin (Melatonin 3 Mg Tablet) 6 mg PO BEDTIME PRN PRN Reason: Insomnia Ondansetron HCl (Ondansetron Hcl 4 Mg/2 Ml Vial) 4 mg IVPUSH Q8H PRN PRN Reason: Nausea and Vomiting Polyethylene Glycol (Polyethylene Glycol 3350 17 Gm Powd.Pack) 17 gm PO DAILY PRN PRN Reason: Constipation Last Admin: 10/31/24 07:52 Dose: 17 gm Potassium Chloride (Potassium Chloride Er 20 Meq Tab.Er.Prt) 20 meq PO DAILY [facility] Last Admin: 10/31/24 07:53 Dose: 20 meq Prednisone (Prednisone 20 Mg Tablet) 40 mg PO DAILY [facility] Last Admin: 10/31/24 12:34 Dose: 40 mg Senna (Sennosides 8.6 Mg Tablet) 17.2 mg PO BEDTIME [facility] Last Admin: 10/30/24 22:07 Dose: 17.2 mg Sodium Chloride (0.9 % Sodium Chloride Flush 3 Ml Syringe) 3 ml IVFLUSH QSHIFT [facility] Last Admin: 10/31/24 12:37 Dose: 3 ml Spironolactone (Spironolactone 25 Mg Tablet) 25 mg PO DAILY [facility]; Protocol Tiotropium Stark (Tiotropium Stark 2.5 Mcg 1 Puff/2.5 Mcg Mist.Inhal) 2 puff INHALE DAILY [facility] Last Admin: 10/31/24 11:30 Dose: 2 puff Torsemide (Torsemide 20 Mg Tablet) 40 mg PO DAILY [facility]; Protocol Last Admin: 10/31/24 12:34 Dose: 40 mg Vitamin D (Cholecalciferol (Vitamin D3) 25 Mcg Tablet) 50 mcg PO DAILY [facility] Last Admin: 10/31/24 07:52 Dose: 50 mcg Home Medications ?Medication ?Instructions ?Recorded ?Confirmed ?Last Taken ?Type gabapentin 100 mg capsule 100 mg PO TID PRN Pain 09/07/24 10/30/24 Unknown History rosuvastatin 5 mg tablet 2.5 mg PO BEDTIME 09/07/24 10/30/24 10/20/24 History trolamine salicylate 10 % topical 1 appl topical DAILY PRN Pain 09/07/24 10/30/24 Unknown History cream (Aspercreme) cyanocobalamin (vitamin B-12) 100 100 mcg PO DAILY 10/21/24 10/30/24 10/21/24 History mcg tablet (Vitamin B-12) folic acid 800 mcg tablet 0.8 mg PO DAILY 10/21/24 10/30/24 10/21/24 History pantoprazole 40 mg tablet,delayed 40 mg PO DAILY@0630 10/21/24 10/30/24 10/21/24 History release ammonium lactate 12 % topical cream 1 appl topical DAILY PRN Dry Skin 10/30/24 10/30/24 Unknown History lorazepam 0.5 mg tablet 0.5 mg PO BID PRN anxiety 10/30/24 10/30/24 Unknown History Physical Exam 2 Vital Signs: Vital Signs: Last Vital Signs Temp 98.2 F 10/31/24 11:10 Pulse 102 H 10/31/24 11:34 Resp 20 10/31/24 11:34 BP 132/60 10/31/24 11:10 Pulse Ox 97 10/31/24 11:10 O2 Del Method Nasal Cannula 10/31/24 11:10 O2 Flow Rate 2 10/31/24 11:10 Oxygen Flow Rate 2 10/30/24 15:41 BMI result Body Mass Index 21.4 GENERAL APPEARANCE: Frail appearing. On supplemental oxygen. NECK: no carotid bruit, mild jugular venous distention. SKIN: no suspicious lesions, warm and dry. HEART: no murmurs, irregular rate and rhythm. LUNGS: clear to auscultation bilaterally. ABDOMEN: soft, nontender. EXTREMITIES: Trace edema. PERIPHERAL PULSES: equal. NEUROLOGIC: No gross deficits, AAO X 3 Objective Labs and Meds 10/31/24 06:00 10/31/24 06:00 Lab results: Laboratory Results - last 24 hr 10/30/24 10/30/24 10/30/24 16:41 19:41 19:46 WBC 8.3 RBC 4.20 Hgb 10.8 L Hct 35.9 L MCV 85.5 MCH 25.7 L MCHC 30.1 L RDW 17.0 H Plt Count 189 MPV 10.7 Immature Gran % (Auto) 0.5 H Neut % (Auto) 70.6 Lymph % (Auto) 15.5 L [place] % (Auto) 11.3 H Eos % (Auto) 1.3 Baso % (Auto) 0.8 Lymph # (Auto) 1.3 [place] # (Auto) 0.9 Eos # (Auto) 0.1 Baso # (Auto) 0.1 Abs Immat Gran (auto) 0.04 H Absolute Neuts (auto) 5.9 Absolute Nucleated RBC 0.020 H Nucleated RBC % (auto) 0.2 VBG pH 7.44 H VBG pCO2 59 VBG pO2 26 VBG HCO3 40 H VBG O2 Saturation < 30.0 VBG Base Excess 14.0 Sodium 143 Potassium 3.3 Chloride 98 Carbon Dioxide 33 H Anion Gap 15 BUN 23 H Creatinine 1.02 Estim Creat Clear Calc 36.2 Estimated GFR 52 Random Glucose 101 Calcium 9.5 Magnesium 1.8 Total Bilirubin 1.1 H AST 36 H ALT 25 Alkaline Phosphatase 159 H Troponin I High Sens 15.4 20.4 H B-Natriuretic Peptide 2562 H Total Protein 6.5 Albumin 4.0 TSH Urine Color Urine Appearance Urine pH Ur Specific [place] Urine Protein Urine Glucose (UA) Urine Ketones Urine Blood Urine Nitrite Ur Leukocyte Esterase Urine RBC Urine WBC Ur Squamous Epith Cells Urine Bacteria Hyaline Casts Influenza Type A (PCR) NEGATIVE Influenza Type B (PCR) NEGATIVE RSV RNA Qual (PCR) NEGATIVE SARS-CoV-2 RNA (RT-PCR) NEGATIVE 10/31/24 10/31/24 05:30 06:00 WBC 8.0 RBC 3.93 L Hgb 10.2 L Hct 33.1 L MCV 84.2 MCH 26.0 L MCHC 30.8 L RDW 16.7 H Plt Count 202 MPV 9.7 Immature Gran % (Auto) 0.4 Neut % (Auto) 71.4 Lymph % (Auto) 14.4 L [place] % (Auto) 11.2 H Eos % (Auto) 2.0 Baso % (Auto) 0.6 Lymph # (Auto) 1.2 [place] # (Auto) 0.9 Eos # (Auto) 0.2 Baso # (Auto) 0.1 Abs Immat Gran (auto) 0.03 Absolute Neuts (auto) 5.7 Absolute Nucleated RBC 0.000 Nucleated RBC % (auto) 0.0 VBG pH VBG pCO2 VBG pO2 VBG HCO3 VBG O2 Saturation VBG Base Excess Sodium 144 Potassium 3.2 L Chloride 100 Carbon Dioxide 33 H Anion Gap 14 BUN 19 H Creatinine 0.81 Estim Creat Clear Calc 47.8 Estimated GFR > 60 Random Glucose 105 Calcium 8.9 D Magnesium Total Bilirubin 1.1 H AST 32 H ALT 19 Alkaline Phosphatase 139 H Troponin I High Sens B-Natriuretic Peptide Total Protein 5.8 L Albumin 3.6 TSH 1.81 Urine Color Yellow Urine Appearance Clear Urine pH 7.5 Ur Specific [place] 1.010 Urine Protein Trace Urine Glucose (UA) Negative Urine Ketones Negative Urine Blood Negative Urine Nitrite Negative Ur Leukocyte Esterase Trace H Urine RBC 0-2 Urine WBC 6-10 H Ur Squamous Epith Cells 0-2 Urine Bacteria 4+ Hyaline Casts 0-2 Influenza Type A (PCR) Influenza Type B (PCR) RSV RNA Qual (PCR) SARS-CoV-2 RNA (RT-PCR) Imaging Radiologist's impression: Impressions Ankle X-Ray 10/30/24 15:43 IMPRESSION: 1. No acute bony abnormalities. 2. Mild lateral greater than medial soft tissue swelling. Electronically signed by: Abhijeet Pearl MD 10/30/2024 04:16 PM EDT RP Cervical Spine CT 10/30/24 15:43 IMPRESSION: No acute fracture or dislocation. Mild DJD. Fleischner guidelines were followed. Electronically signed by: Lev Dominique MD 10/30/2024 05:02 PM EDT RP Chest X-Ray 10/30/24 15:43 IMPRESSION: Cardiomegaly. Severe COPD without definite superimposed active disease. Electronically signed by: Abhijeet Pearl MD 10/30/2024 04:14 PM EDT RP Foot X-Ray 10/30/24 15:43 IMPRESSION: Dorsal soft tissue swelling. No acute underlying bony abnormality. Electronically signed by: Abhijeet Pearl MD 10/30/2024 04:15 PM EDT RP Head CT 10/30/24 15:43 IMPRESSION: No acute intracranial process seen. Electronically signed by: Lev Dominique MD 10/30/2024 04:57 PM EDT RP Assessment and Plan (1) CHF (congestive heart failure): Status: Acute (2) Persistent atrial fibrillation: Status: Acute Plan Pleasant 79-year-old female with background history of symptomatic atrial fibrillation for which she had cardioversion in the past. Since August 2024 she has been in persistent atrial fibrillation. She got admitted with RSV and developed AFib during that admission and it appears she has not broken out of that since then. She is complaining of fatigue, dizziness and shortness of breath. BNP is elevated. Clinically she does not look significantly volume overloaded. I think she should resume her home torsemide but I think she should be on 40 mg daily. Given low potassium I recommend adding spironolactone 25 mg daily. Stop the pantoprazole because it will affect magnesium absorption and she has been experiencing some hypomagnesemia. I had a detailed discussion with the patient and family that her fatigue and shortness of breath is multifactorial but AFib potentially can be playing a role in this. She was doing quite well before RSV admission when she was in sinus rhythm. I think as she improves potential cardioversion can be attempted. Would favor using flecainide on her after cardioversion-she has no coronary disease by cardiac catheterization. Thank you for allowing me to participate in the care of your patient. Please feel free to contact me if you have any questions. Procedures Date of Service Date of Service: 10/31/24
--- NOTE | 2024-10-31 13:18 | MHC.SL.SWA ---
Speech Pathologist Impression: Risk of Aspiration Due to: Medically Fragile Dysphasia Diet Status: Liquid Consistency and Strategies for Safe Swallow: Liquid Intake Recommendation: Thin Liquid Intake Strategies: Unrestricted Solid Food Consistency: Dietary Recommendations: Regular Additional Modifications to Solid Foods: Alternate liquids and solids. GERD precautions: Remain upright for at least 30 minutes post meal, sleep with head elevated 30 degrees. Oral Medication Intake: Whole with Puree Please contact the pharmacy regarding appropriate crushable or liquid drug formulations that are available whenever modified delivery is recommended. Compensatory Strategies and Precautions to be Taken for Safe Swallow: Sitting Upright (90 deg) Liquids from Cup Liquids from Straw Small Bites and Sips Alternate Liquids/Solids Supervision While Eating and Drinking for Safe Swallow: None Needed Foods to Avoid: Hard difficult to chew solids, too large pieces of food. Swallowing Recommended Treatments: Recommendation for Speech: NA:Typical Evaluation Comment: Patient presents with swalllow mostly WFL, has c/o of globus sensation when taking pills, likely due to esophageal dysmotility (?), with RN and patient reporting that pills given with puree this morning was successful. Patient also reports a choking episode when drinking liquid potassium earlier this week, with burning sensation and prolonged coughing after the event, which likely lead to current vocal hoarseness. Patient does not otherwise report chronic difficulty with swallow. Recommend continue on current diet of REGULAR with THIN liquids, pills whole or cut smaller in puree. Patient has history of GERD, should use GERD precautions of remaining upright at least 30 minutes after meal, sleep with head of bed elevated to at least 30 degrees. No further TIPPLE TENDER service indicated for this inpatient stay will D/C. MD/RD notified of recommendations, RN in person. Frequency/Duration: Date Range for Service Req: Timeline to reassess: Warm In Worker Clinican/Clinical Fellow: No Supervisory Statement: I have reviewed and agree with the student/clinical fellow's documentation: N/A Speech Language Pathologist: Melonie Zhang M.A., CCC-TIPPLE TENDER
[2024-10-31] MEDS: Metoprolol Succinate ER 100 MG TAB.ER.24H PO (15:45)
[2024-10-31] MEDS: Sennosides 8.6 MG TABLET 17.2 MG PO (21:48)
[2024-11-01] VITALS (8 sets, daily range): BP systolic 113–136; BP diastolic 53–65; PULSE 81–111; RESP 12–20; TEMP 36.4–37.2; O2SAT 90–99; BMI 22.1
[2024-11-01] MEDS: Fluticasone/Vilanterol 200/25 BLST.W.DEV 1 PUFF INHALE (07:21)
[2024-11-01] MEDS: Albuterol/Iprat 2.5/0.5MG 3 ML AMPUL.NEB INHALE ×3 (07:21→15:22)
[2024-11-01] MEDS: Tiotropium Bromide 2.5 mcg 1 PUFF/2.5 MCG MIST.INHAL 2 PUFF INHALE (07:21)
[2024-11-01] MEDS: predniSONE 20 MG TABLET 40 MG PO (08:58)
[2024-11-01] MEDS: Torsemide 20 MG TABLET 40 MG PO ×2 (08:59→21:16)
[2024-11-01] MEDS: Apixaban 5 MG TABLET PO ×2 (09:00→21:16)
[2024-11-01] MEDS: Acetaminophen 325 MG TABLET 650 MG PO (09:00)
[2024-11-01] MEDS: Cholecalciferol (Vitamin D3) 25 MCG TABLET 50 MCG PO (09:00)
[2024-11-01] MEDS: LORazepam 0.5 MG TABLET PO ×2 (09:00→21:17)
[2024-11-01] MEDS: Famotidine 20 MG TABLET PO ×2 (09:00→21:16)
[2024-11-01] MEDS: Spironolactone 25 MG TABLET PO (09:01)
[2024-11-01 09:03] LABS: Anion Gap 17 (12-20); Blood Urea Nitrogen 24 mg/dL (9-16); Calcium 9.7 mg/dL (8.4-10.2); Carbon Dioxide 31 mmol/L (22-29); Chloride 97 mmol/L (96-108); Estimated Glomerular Filt Rate > 60; Glucose Random 111 mg/dL (60-115); Potassium 3.6 mmol/L (3.3-5.1); Sodium 141 mmol/L (135-145)
[2024-11-01] MEDS: Magnesium Oxide 400 MG TABLET PO ×2 (09:03→16:30)
[2024-11-01] MEDS: Cyanocobalamin (Vitamin B-12) 100 MCG TABLET PO (09:03)
[2024-11-01] MEDS: Metoprolol Succinate ER 100 MG TAB.ER.24H PO (09:03)
[2024-11-01] MEDS: Potassium Chloride ER 20 MEQ TAB.ER.PRT PO (09:03)
[2024-11-01] MEDS: Folic Acid 1 MG TABLET PO (09:03)
[2024-11-01] MEDS: 0.9 % Sodium Chloride Flush 3 ML SYRINGE IVFLUSH ×3 (09:09→22:35)
--- NOTE | 2024-11-01 11:58 | PM.PNCARD ---
Subjective Subjective Date of Service: 11/01/24 Interval history: Seen examined at bedside. Short of breath on supplemental oxygen. Physical Exam Vital Signs: Last Vital Signs Temp 98.6 F 11/01/24 10:55 Pulse 86 11/01/24 11:20 Resp 18 11/01/24 11:20 BP 125/60 11/01/24 10:55 Pulse Ox 98 11/01/24 10:55 O2 Del Method Nasal Cannula 11/01/24 10:55 O2 Flow Rate 2 11/01/24 10:55 Oxygen Flow Rate 2 10/30/24 15:41 BMI result Body Mass Index 22.1 GENERAL APPEARANCE: Frail appearing. On supplemental oxygen. NECK: no carotid bruit, mild jugular venous distention. Positive hepatojugular reflux. SKIN: no suspicious lesions, warm and dry. HEART: no murmurs, irregular rate and rhythm. LUNGS: clear to auscultation bilaterally. ABDOMEN: soft, nontender. EXTREMITIES: No edema. PERIPHERAL PULSES: equal. NEUROLOGIC: No gross deficits, AAO X 3 Objective Labs and Meds 10/31/24 06:00 11/01/24 08:23 Lab results: Laboratory Results - last 24 hr 11/01/24 08:23 Sodium 141 Potassium 3.6 Chloride 97 Carbon Dioxide 31 H Anion Gap 17 BUN 24 H Creatinine 0.90 Estim Creat Clear Calc 43.0 Estimated GFR > 60 Random Glucose 111 Calcium 9.7 D Progress Note: A&P Assessment and plan (1) Atrial fibrillation: Status: Acute (2) CHF (congestive heart failure): Status: Acute Plan 79-year-old female with background history of COPD on oxygen, pulmonary hypertension and history of atrial fibrillation for which she was cardioverted last year. She was doing quite well till August 2024 when she developed RSV. At the same time she developed atrial fibrillation. Since then she has not recovered completely and has been short of breath and fatigued. Clinically in heart failure. I think her torsemide dose should be increased back to 40 mg p.o. b.i.d.. We have added spironolactone which can be titrated based on potassium and blood pressure tolerance. I think she will benefit from cardioversion. I had a detailed discussion about this with the patient and family. Continue Eliquis. We will tentatively keep her NPO for potential cardioversion tomorrow if there is change in plan we will update the team. Thank you for allowing me to participate in the care of your patient. Please feel free to contact me if you have any questions. Time Spent With Patient Time: Total time managing care of this patient today ____ minutes. Progress Note: Quality Stroke Does the patient have a stroke diagnosis?: No Reason for No Anti-thrombotic by Day Two: N/A - Med Ordered Procedures Date of Service Date of Service: 11/01/24
--- NOTE | 2024-11-01 15:23 | P.PNIM_ITS ---
Subjective Subjective Date of Service: 11/01/24 Interval History: chf ,afib Review of Systems sob slightly improving less dizziness today ,able to situp Review of Systems: Yes all other systems are reviewed and are negative Physical Exam 2 Vital Signs: Vital Signs: Last Vital Signs Temp 98.9 F 11/01/24 15:14 Pulse 89 11/01/24 15:22 Resp 18 11/01/24 15:22 BP 113/65 11/01/24 15:14 Pulse Ox 97 11/01/24 15:14 O2 Del Method Nasal Cannula 11/01/24 15:14 O2 Flow Rate 2 11/01/24 15:14 Oxygen Flow Rate 2 10/30/24 15:41 BMI result Body Mass Index 22.1 Appearance: Alert.? Oriented X3.. cvs: rrr, [id number] . res: air entry improving ,no rales or wheezinf abd: no rebound or guarding ,nt, bs present. ext pulses present , no cyanosis. neuro: axo3 , nonfocal. Objective Data Active Medications Acetaminophen (Acetaminophen 325 Mg Tablet) 650 mg PO Q6H PRN PRN Reason: Pain, Mild 1-3,fever,headache Last Admin: 11/01/24 09:00 Dose: 650 mg Documented By: DAYSI Albuterol/Ipratropium (Albuterol/Iprat 2.5/0.5mg 3 Ml Ampul.Neb) 3 ml INHALE RQ4H [facility] Last Admin: 11/01/24 15:22 Dose: 3 ml Documented By: JHOANA Apixaban (Apixaban 5 Mg Tablet) 5 mg PO BID [facility] Last Admin: 11/01/24 09:00 Dose: 5 mg Documented By: DAYSI Atorvastatin Calcium (Atorvastatin Calcium 10 Mg Tablet) 10 mg PO DAILY [facility] Last Admin: 11/01/24 09:03 Dose: Not Given Documented By: DAYSI Non-Admin Reason: Patient Refused Calcium Carbonate (Calcium Carbonate 750 Mg Tab.Chew) 750 mg PO Q4H PRN PRN Reason: Heartburn Cyanocobalamin (Cyanocobalamin (Vitamin B-12) 100 Mcg Tablet) 100 mcg PO DAILY [facility] Last Admin: 11/01/24 09:03 Dose: 100 mcg Documented By: DAYSI Famotidine (Famotidine 20 Mg Tablet) 20 mg PO BID [facility] Last Admin: 11/01/24 09:00 Dose: 20 mg Documented By: DAYSI Fluticasone/Vilanterol (Fluticasone/Vilanterol 200/25 Blst.W.Dev) 1 puff INHALE DAILY [facility] Last Admin: 11/01/24 07:21 Dose: 1 puff Documented By: BIRANDA Folic Acid (Folic Acid 1 Mg Tablet) 1 mg PO DAILY [facility] Last Admin: 11/01/24 09:03 Dose: 1 mg Documented By: DAYSI Lactic Acid (Ammonium Lactate 12 % Cream 140 Gm Tube) 1 appl TOPICAL DAILY PRN; Protocol PRN Reason: Dry Skin Lorazepam (Lorazepam 0.5 Mg Tablet) 0.5 mg PO BID PRN PRN Reason: anxiety Last Admin: 11/01/24 09:00 Dose: 0.5 mg Documented By: DAYSI Magnesium Hydroxide (Milk Of Magnesia 30 Ml Oral.Susp) 30 ml PO DAILY PRN PRN Reason: Constipation Magnesium Oxide ([facility] 400 Mg Tablet) [facility] Last Admin: 11/01/24 09:03 Dose: 400 mg Documented By: DAYSI Melatonin (Melatonin 3 Mg Tablet) 6 mg PO BEDTIME PRN PRN Reason: Insomnia Metoprolol Succinate (Metoprolol Succinate Er 100 Mg Tab.Er.24h) 100 mg PO DAILY [facility]; Protocol Last Admin: 11/01/24 09:03 Dose: 100 mg Documented By: DAYSI Ondansetron HCl (Ondansetron Hcl 4 Mg/2 Ml Vial) 4 mg IVPUSH Q8H PRN PRN Reason: Nausea and Vomiting Polyethylene Glycol (Polyethylene Glycol 3350 17 Gm Powd.Pack) 17 gm PO DAILY PRN PRN Reason: Constipation Last Admin: 10/31/24 07:52 Dose: 17 gm Documented By: DAYSI Potassium Chloride (Potassium Chloride Er 20 Meq Tab.Er.Prt) 20 meq PO DAILY [facility] Last Admin: 11/01/24 09:03 Dose: 20 meq Documented By: DAYSI Prednisone (Prednisone 20 Mg Tablet) 40 mg PO DAILY [facility] Last Admin: 11/01/24 08:58 Dose: 40 mg Documented By: DAYSI Senna (Sennosides 8.6 Mg Tablet) 17.2 mg PO BEDTIME [facility] Last Admin: 10/31/24 21:48 Dose: 17.2 mg Documented By: TING Sodium Chloride (0.9 % Sodium Chloride Flush 3 Ml Syringe) 3 ml IVFLUSH QSHIFT [facility] Last Admin: 11/01/24 09:09 Dose: 3 ml Documented By: DAYSI Spironolactone (Spironolactone 25 Mg Tablet) 25 mg PO DAILY [facility]; Protocol Last Admin: 11/01/24 09:01 Dose: 25 mg Documented By: DAYSI Tiotropium [place] (Tiotropium [place] 2.5 Mcg 1 Puff/2.5 Mcg Mist.Inhal) 2 puff INHALE DAILY [facility] Last Admin: 11/01/24 07:21 Dose: 2 puff Documented By: BRIANDA Torsemide (Torsemide 20 Mg Tablet) 40 mg PO BID [facility]; Protocol Vitamin D (Cholecalciferol (Vitamin D3) 25 Mcg Tablet) 50 mcg PO DAILY [facility] Last Admin: 11/01/24 09:00 Dose: 50 mcg Documented By: DAYSI Labs 10/31/24 06:00 11/01/24 08:23 Labs: Laboratory Results - last 24 hr 11/01/24 08:23 Anion Gap 17 Estim Creat Clear Calc 43.0 Estimated GFR > 60 Random Glucose 111 Calcium 9.7 D Assessment and Plan (1) COPD exacerbation: Status: Acute Assessment and Plan: 79-year-old female with past medical history of COPD/emphysema, atrial fibrillation on Eliquis,HFpEF on torsemide, recent weight loss with dysphagia, chronic GERD, insomnia, osteoarthritis, non STEMI, vitamin-D deficiency being admitted under observation for CHF and COPD exacerbation with near syncopal episode and generalized weakness. Near-syncope - fall/ Left foot pain/ AFib on Eliquis/ hypertension/ hyperlipidemia: BNP 2562 Troponin flat,EKG- AFib similar to . Last echo 10/14/2024 - EF 60-65% with moderate biatrial enlargement and mild mitral and aortic regurgitation with severely elevated right ventricular systolic pressure, no gross pericardial effusion plan:dizziness somewhat improving orthos negative Carotid Dopplers-Normal carotid velocities, no significant stenosis (0-49% stenosis) Telemetry and continuous pulse ox Continue Eliquis and metoprolol,adjusted torsemide 40 mg bid Paf :afib with rvr hr in 100's She is complaining of fatigue, dizziness and shortness of breath. continue bb,eliquis . d/w cardiology-npo past midnight for possible cardioversion. foot pain; xray:Tylenol for left foot pain, ice p.r.n., elevation, monitor for increasing swelling or discomfort HFrEF exacerbation, no hypoxia-continue telemetry and continuous pulse ox s/p iv torsemide . plan: daily weights, measure I's and O's fluid allowance 1500 mL per day continue po torcemide . hypokalemia: repleted-added extra dose potassium in addition to her home dose. COPD exacerbation, no hypoxia seems improved nebs,po steriods Generalized weakness/ BMI of 19.7 with intermittent loss of appetit/ dysphagia with GERD -PT eval ordered, patient may be interested in short-term rehab -nutritional consultation -ensure supplementation ordered -speech therapy eval ordered, aspiration precautions in place -continue PPI and substitute for cimetidine DVT prophylaxis: Eliquis PPI prophylaxis: Omeprazole Case management requested as patient has been considering assisted living Patient is a DNR DNI and MOLST . Patient is agreeable to noninvasive ventilation at this time. ongooing need for stay:afib with rvr, dizziness: Patient has dizziness in setting of AFib-need tele monitoring, also monitor for symptoms, as per cardio may need cardioversion if does not improve. Quality Stroke Does the patient have a stroke diagnosis?: No Reason for No Anti-thrombotic by Day Two: N/A - Med Ordered VTE Prior VTE?: No VTE Risk Level:: Medical - moderate - high VTE Device Contraindication: N/A - Device Ordered VTE Drug Contraindication: N/A - Med Ordered
[2024-11-01] MEDS: Melatonin 3 MG TABLET 6 MG PO (22:32)
[2024-11-02] VITALS (18 sets, daily range): BP systolic 105–146; BP diastolic 42–74; PULSE 62–97; RESP 16–20; TEMP 36.2–37.2; O2SAT 93–100; BMI 24.1
[2024-11-02] MEDS: Tiotropium Bromide 2.5 mcg 1 PUFF/2.5 MCG MIST.INHAL 2 PUFF INHALE (07:51)
[2024-11-02] MEDS: Albuterol/Iprat 2.5/0.5MG 3 ML AMPUL.NEB INHALE ×4 (07:51→19:49)
[2024-11-02] MEDS: Fluticasone/Vilanterol 200/25 BLST.W.DEV 1 PUFF INHALE (07:51)
[2024-11-02] MEDS: Apixaban 5 MG TABLET PO ×2 (08:32→20:07)
[2024-11-02] MEDS: 0.9 % Sodium Chloride Flush 3 ML SYRINGE IVFLUSH ×2 (08:32→18:06)
--- NOTE | 2024-11-02 09:07 | P.PNIM_ITS ---
Subjective Subjective Date of Service: 11/02/24 Interval History: chf ,afib Review of Systems sob seems somewhat improving denies any chest pain Review of Systems: Yes all other systems are reviewed and are negative Physical Exam 2 Vital Signs: Vital Signs: Last Vital Signs Temp 97.7 F 11/02/24 08:00 Pulse 90 11/02/24 08:00 Resp 16 11/02/24 08:00 BP 138/57 L 11/02/24 08:00 Pulse Ox 100 11/02/24 08:00 O2 Del Method Room Air 11/02/24 08:00 O2 Flow Rate 2 11/02/24 00:00 Oxygen Flow Rate 2 10/30/24 15:41 BMI result Body Mass Index 24.1 Appearance: Alert.? Oriented X3.. cvs: rrr, [id number] . res: air entry fair ,no rales or wheezing abd: no rebound or guarding ,nt, bs present. ext pulses present , no cyanosis. neuro: axo3 , nonfocal. Objective Data Active Medications Acetaminophen (Acetaminophen 325 Mg Tablet) 650 mg PO Q6H PRN PRN Reason: Pain, Mild 1-3,fever,headache Last Admin: 11/01/24 09:00 Dose: 650 mg Documented By: DAYSI Albuterol/Ipratropium (Albuterol/Iprat 2.5/0.5mg 3 Ml Ampul.Neb) 3 ml INHALE RQ4H [facility] Last Admin: 11/02/24 07:51 Dose: 3 ml Documented By: CONSUELO Apixaban (Apixaban 5 Mg Tablet) 5 mg PO BID [facility] Last Admin: 11/02/24 08:32 Dose: 5 mg Documented By: ABEL Atorvastatin Calcium (Atorvastatin Calcium 10 Mg Tablet) 10 mg PO DAILY [facility] Last Admin: 11/01/24 09:03 Dose: Not Given Documented By: DAYSI Non-Admin Reason: Patient Refused Calcium Carbonate (Calcium Carbonate 750 Mg Tab.Chew) 750 mg PO Q4H PRN PRN Reason: Heartburn Cyanocobalamin (Cyanocobalamin (Vitamin B-12) 100 Mcg Tablet) 100 mcg PO DAILY [facility] Last Admin: 11/01/24 09:03 Dose: 100 mcg Documented By: DAYSI Famotidine (Famotidine 20 Mg Tablet) 20 mg PO BID [facility] Last Admin: 11/01/24 21:16 Dose: 20 mg Documented By: QUINTIN Fluticasone/Vilanterol (Fluticasone/Vilanterol 200/25 Blst.W.Dev) 1 puff INHALE DAILY [facility] Last Admin: 11/02/24 07:51 Dose: 1 puff Documented By: CONSUELO Folic Acid (Folic Acid 1 Mg Tablet) 1 mg PO DAILY [facility] Last Admin: 11/01/24 09:03 Dose: 1 mg Documented By: DAYSI Lactic Acid (Ammonium Lactate 12 % Cream 140 Gm Tube) 1 appl TOPICAL DAILY PRN; Protocol PRN Reason: Dry Skin Lorazepam (Lorazepam 0.5 Mg Tablet) 0.5 mg PO BID PRN PRN Reason: anxiety Last Admin: 11/01/24 21:17 Dose: 0.5 mg Documented By: QUINTIN Magnesium Hydroxide (Milk Of Magnesia 30 Ml Oral.Susp) 30 ml PO DAILY PRN PRN Reason: Constipation Magnesium Oxide (Magnesium Oxide 400 Mg Tablet) [facility] Last Admin: 11/01/24 16:30 Dose: 400 mg Documented By: DAYSI Melatonin (Melatonin 3 Mg Tablet) 6 mg PO BEDTIME PRN PRN Reason: Insomnia Last Admin: 11/01/24 22:32 Dose: 6 mg Documented By: QUINTIN Metoprolol Succinate (Metoprolol Succinate Er 100 Mg Tab.Er.24h) 100 mg PO DAILY [facility]; Protocol Last Admin: 11/01/24 09:03 Dose: 100 mg Documented By: DAYSI Ondansetron HCl (Ondansetron Hcl 4 Mg/2 Ml Vial) 4 mg IVPUSH Q8H PRN PRN Reason: Nausea and Vomiting Polyethylene Glycol (Polyethylene Glycol 3350 17 Gm Powd.Pack) 17 gm PO DAILY PRN PRN Reason: Constipation Last Admin: 10/31/24 07:52 Dose: 17 gm Documented By: DAYSI Potassium Chloride (Potassium Chloride Er 20 Meq Tab.Er.Prt) 20 meq PO DAILY [facility] Last Admin: 11/01/24 09:03 Dose: 20 meq Documented By: DAYSI Prednisone (Prednisone 10 Mg Tablet) 30 mg PO DAILY [facility] Senna (Sennosides 8.6 Mg Tablet) 17.2 mg PO BEDTIME [facility] Last Admin: 11/01/24 21:16 Dose: Not Given Documented By: QUINTIN Non-Admin Reason: Patient Refused Sodium Chloride (0.9 % Sodium Chloride Flush 3 Ml Syringe) 3 ml IVFLUSH QSHIFT [facility] Last Admin: 11/02/24 08:32 Dose: 3 ml Documented By: ABEL Spironolactone (Spironolactone 25 Mg Tablet) 25 mg PO DAILY [facility]; Protocol Last Admin: 11/01/24 09:01 Dose: 25 mg Documented By: DAYSI Tiotropium [place] (Tiotropium [place] 2.5 Mcg 1 Puff/2.5 Mcg Mist.Inhal) 2 puff INHALE DAILY [facility] Last Admin: 11/02/24 07:51 Dose: 2 puff Documented By: CONSUELO Torsemide (Torsemide 20 Mg Tablet) 40 mg PO BID [facility]; Protocol Last Admin: 11/01/24 21:16 Dose: 40 mg Documented By: QUINTIN Vitamin D (Cholecalciferol (Vitamin D3) 25 Mcg Tablet) 50 mcg PO DAILY [facility] Last Admin: 11/01/24 09:00 Dose: 50 mcg Documented By: DAYSI Labs 10/31/24 06:00 11/01/24 08:23 Assessment and Plan (1) COPD exacerbation: Status: Acute Assessment and Plan: 79-year-old female with past medical history of COPD/emphysema, atrial fibrillation on Eliquis,HFpEF on torsemide, recent weight loss with dysphagia, chronic GERD, insomnia, osteoarthritis, non STEMI, vitamin-D deficiency being admitted under observation for CHF and COPD exacerbation with near syncopal episode and generalized weakness. Near-syncope - fall/ Left foot pain/ AFib on Eliquis/ hypertension/ hyperlipidemia: BNP 2562 Troponin flat,EKG- AFib similar to . Last echo 10/14/2024 - EF 60-65% with moderate biatrial enlargement and mild mitral and aortic regurgitation with severely elevated right ventricular systolic pressure, no gross pericardial effusion plan:dizziness somewhat improving orthos negative Carotid Dopplers-Normal carotid velocities, no significant stenosis (0-49% stenosis) Telemetry and continuous pulse ox Continue Eliquis and metoprolol,adjusted torsemide 40 mg bid Paf :afib with rvr s/p cardioversion-now in nsr continue bb,eliquis . foot pain; xray:Tylenol for left foot pain, ice p.r.n., elevation, monitor for increasing swelling or discomfort HFrEF exacerbation, no hypoxia-continue telemetry and continuous pulse ox s/p iv torsemide . now on po torcemide plan: daily weights, measure I's and O's: neg 1.3 liters fluid allowance 1500 mL per day continue po torcemide . hypokalemia:repleted and resolved. COPD exacerbation, no hypoxia seems improved nebs,po steriods Generalized weakness/ BMI of 19.7 with intermittent loss of appetit/ dysphagia with GERD -nutritional consultation -ensure supplementation ordered -speech therapy eval ordered, aspiration precautions in place -continue PPI and substitute for cimetidine pt eval-str DVT prophylaxis: Eliquis. PPI prophylaxis: Omeprazole Patient is a DNR DNI and MOLST . Patient is agreeable to noninvasive ventilation at this time. ongooing need for stay:afib with rvr, dizziness: Patient has dizziness in setting of AFib-need tele monitoring, also monitor for symptoms, as per cardio may need cardioversion if does not improve. Quality Stroke Does the patient have a stroke diagnosis?: No Reason for No Anti-thrombotic by Day Two: N/A - Med Ordered VTE Prior VTE?: No VTE Risk Level:: Medical - moderate - high VTE Device Contraindication: N/A - Device Ordered VTE Drug Contraindication: N/A - Med Ordered
--- NOTE | 2024-11-02 10:22 | P.PNCA_ITS ---
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 Essentially, patient has a history of COPD on oxygen, atrial fibrillation, congestive heart failure. Had cardioversion last year but at some point, went back into atrial fibrillation. Readmitted with heart failure. Per , he is requesting another cardioversion today. She states that she is feeling better. Lying in bed and quite comfortable. Review of Systems Review of Systems Yes all other systems are reviewed and are negative Constitutional: Reports as per HPI and Reports no additional constitutional complaints Eyes: Reports as per HPI and Denies no additional eye complaints Denies system reviewed and no additional complaints, except as documented and Reports as per HPI Cardiovascular: Reports as per HPI, Reports no additional cardiovascular complaints, Denies acrocyanosis, Denies cool extremities, Denies chest pain, Denies leg edema, Denies lightheadedness, Denies palpitations and Reports dyspnea Respiratory: Reports as per HPI, Denies no additional respiratory complaints and Reports dyspnea Gastrointestinal: Reports as per HPI and Denies no additional gastrointestinal complaints Genitourinary: Reports as per HPI Musculoskeletal: Reports no additional musculoskeletal complaints and Reports as per HPI Skin/Breast: Reports system reviewed and no additional complaints, except as docu Reports system reviewed and no additional complaints, except as documented and Reports as per HPI Psychiatric: Reports no additional psychiatric complaints and Reports as per HPI Endocrine: Reports no additional endocrine complaints, Reports as per HPI and Denies palpitations Hematologic/Lymphatic: Reports no additional hematologic/lymphatic complaints and Reports as per HPI Allergic/Immunologic: Reports no additional allergic/immunologic complaints and Reports as per HPI Physical Exam Vital Signs: Last Vital Signs Temp 97.7 F 11/02/24 08:00 Pulse 90 11/02/24 08:00 Resp 16 11/02/24 08:00 BP 138/57 L 11/02/24 08:00 Pulse Ox 100 11/02/24 08:00 O2 Del Method Room Air 11/02/24 08:00 O2 Flow Rate 2 11/02/24 00:00 Oxygen Flow Rate 2 10/30/24 15:41 BMI result Body Mass Index 24.1 Const General: comfortable and no acute distress Orientation/consciousness: patient oriented x3 HEENT Other: Unremarkable Head: Yes normal to inspection Neck Neck: Yes normal visual inspection Chest Chest palpation & inspection: normal inspection of the chest Resp Other: Diminished breath sounds Cardio Palpation: normal PMI Heart sounds: S1 normal heart sound present, S2 normal heart sound present, no gallops, no murmurs and no rubs GI Palpation (GI): Soft to palpation Back/Spine/Pelvis Other: unremarkable Skin General skin exam: no rashes or lesions noted Neuro General: patient oriented x3 Extrem General: Yes normal to inspection Psych Mental Status: mental status grossly normal Objective Labs and Meds 10/31/24 06:00 11/01/24 08:23 Progress Note: A&P Assessment and plan (1) Atrial fibrillation with rapid ventricular response: Status: Acute (2) Cardiomyopathy: Status: Acute (3) CHF (congestive heart failure): Status: Acute (4) COPD (chronic obstructive pulmonary disease): Status: Acute Plan In the recent echocardiogram, LVEF is 60-65%. Moderate biatrial enlargement. Severe pulmonary hypertension. Mild mitral/aortic regurgitation. Overall, multifactorial shortness of breath. Per discussion with , plan for cardioversion today. She has been on therapeutic anticoagulation. May continue that without interruption. He would like her to be started on flecainide post cardioversion. Cardiac catheterization from last year showed normal coronary arteries. We will follow up with you. Time Spent With Patient Time: Total time managing care of this patient today ____ minutes. Progress Note: Quality Stroke Does the patient have a stroke diagnosis?: No Reason for No Anti-thrombotic by Day Two: N/A - Med Ordered Procedures Date of Service Date of Service: 11/02/24
--- NOTE | 2024-11-02 11:04 | MHC.CM.PN ---
CM met with pt. and her dtr, Brii to discuss PT rec. of [facility]. They would like referrals to be sent to [facility]. Pt. asked about the MOLST form that she completed in the ED. CM gave her a copy of form, and explained that if she wants to change this, it is completed with the doctor, she understood. Referrals out.
[2024-11-02] MEDS: predniSONE 10 MG TABLET 30 MG PO (11:22)
[2024-11-02] MEDS: Magnesium Oxide 400 MG TABLET PO ×2 (11:22→18:04)
[2024-11-02] MEDS: Cyanocobalamin (Vitamin B-12) 100 MCG TABLET PO (11:22)
[2024-11-02] MEDS: Folic Acid 1 MG TABLET PO (11:23)
[2024-11-02] MEDS: Torsemide 20 MG TABLET 40 MG PO ×2 (11:23→20:07)
[2024-11-02] MEDS: Cholecalciferol (Vitamin D3) 25 MCG TABLET 50 MCG PO (11:23)
[2024-11-02] MEDS: Famotidine 20 MG TABLET PO (11:23)
[2024-11-02] MEDS: Metoprolol Succinate ER 100 MG TAB.ER.24H PO (11:23)
[2024-11-02] MEDS: Potassium Chloride ER 20 MEQ TAB.ER.PRT PO (11:24)
--- NOTE | 2024-11-02 15:02 | PC.NURSE ---
dr. kiser aware that patient had 2 cough drops at [address]. Okay to proceed. no interventions.
[2024-11-02] MEDS: Lactated Ringers 1,000 ML 80 ML IVCONT (15:03)
--- NOTE | 2024-11-02 15:06 | P.CONAN_ITS ---
[facility] Active Problems Active Problems: All Active Problems (Updated 10/31/24 @ 11:21 by Cody Silva MD) Supplemental oxygen dependent (Acute) COPD exacerbation (Acute) Atrial fibrillation (Acute) CHF (congestive heart failure) (Acute) Persistent atrial fibrillation (Acute) Acute on chronic heart failure with preserved ejection fraction (Acute) Congestive heart failure (Acute) Respiratory failure with hypoxia (Acute) Hypertension (Acute) Afib (Acute) Venous (peripheral) insufficiency (Acute) Physical exam (Acute) Foot lesion (Acute) Chronic GERD (Acute) Gait disturbance (Acute) Buttock pain (Acute) Rash (Acute) Insomnia (Acute) Edema (Acute) Osteoarthritis of right hip (Acute) Right hip pain (Acute) S/P cardiac cath (Acute) CHRISTIAN (generalized anxiety disorder) (Acute) Hospital discharge follow-up (Acute) Cardiomyopathy (Acute) NSTEMI (non-ST elevated myocardial infarction) (Acute) COPD (chronic obstructive pulmonary disease) (Acute) Atrial fibrillation with rapid ventricular response (Acute) Shortness of breath (Acute) Elevated troponin (Acute) Vitamin D deficiency (Acute) Muscle cramps (Acute) Fatigue (Acute) Urinary incontinence (Acute) Skin lesion (Acute) Dyslipidemia (Acute) Cough due to DAISY inhibitor (Acute) Carpal tunnel syndrome of right wrist (Acute) Carpal tunnel syndrome of left wrist (Acute) Neck pain (Acute) GERD (gastroesophageal reflux disease) (Acute) Aortic regurgitation (Acute) Right hand pain (Acute) Leg edema (Acute) Allergic rhinitis (Acute) Cervical radiculopathy (Acute) Past Medical History Medical History Respiratory failure with hypoxia Hypertension CHF (congestive heart failure) PAF (paroxysmal atrial fibrillation) Congestive heart failure Atrial fibrillation with rapid ventricular response Congestive heart failure Acute hypoxemic respiratory failure Encounter for cardioversion procedure Atrial fibrillation with RVR Acute exacerbation of congestive heart failure Acute on chronic hypoxic respiratory failure Acute HFrEF (heart failure with reduced ejection fraction) Chronic lung disease Skin lesion Dyslipidemia Cough due to DAISY inhibitor Neck pain GERD (gastroesophageal reflux disease) Aortic regurgitation Right hand pain Leg edema COPD (chronic obstructive pulmonary disease) Allergic rhinitis Anxiety Functional capacity: uses cane/walker Family History Family History Father Medical history unknown Mother Medical history unknown Family history of problems with anesthesia: No Surgical History Surgical History Carpal tunnel syndrome, right History of bilateral cataract extraction History of partial hysterectomy History of Problems with Anesthesia: No Social History Social History Household Members: None Housing: House Are you a primary resident care aide to a significant other at home: No Do you presently have visiting nurse or other home services: No Alcohol intake: current Alcohol intake frequency: a few times a week Alcohol type: other Patient Tobacco Use Status: Former Tobacco user Tobacco use type: Cigarette e-Cigarette/Vaping Use: Never Used Second Hand Smoke Exposure: No Have you been hit, kicked, punched, or otherwise hurt by someone within the past year? If so, by whom?: No Are you DNR?: Yes Advance Directives: No Advance Directives Information Provided: Yes Advance Directives Date on File: 08/25/20 Do you have a plan to hurt others: No Plan Patient : No Poor oral hygiene: Yes service: No Current occupational status: retired Cognitive needs: No Hearing needs: No Vision needs: No Meds Allergies Allergy/AdvReac Type Severity Reaction Status Date / Time Sulfa (Sulfonamide Allergy Intermediate nausea, Verified 10/30/24 15:43 Antibiotics) vomiting Active Medications: Current Medications Acetaminophen (Acetaminophen 325 Mg Tablet) 650 mg PO Q6H PRN PRN Reason: Pain, Mild 1-3,fever,headache Last Admin: 11/01/24 09:00 Dose: 650 mg Albuterol/Ipratropium (Albuterol/Iprat 2.5/0.5mg 3 Ml Ampul.Neb) 3 ml INHALE RQ4H [facility] Last Admin: 11/02/24 11:20 Dose: 3 ml Apixaban (Apixaban 5 Mg Tablet) 5 mg PO BID [facility] Last Admin: 11/02/24 08:32 Dose: 5 mg Atorvastatin Calcium (Atorvastatin Calcium 10 Mg Tablet) 10 mg PO DAILY [facility] Last Admin: 11/02/24 11:38 Dose: Not Given Calcium Carbonate (Calcium Carbonate 750 Mg Tab.Chew) 750 mg PO Q4H PRN PRN Reason: Heartburn Cyanocobalamin (Cyanocobalamin (Vitamin B-12) 100 Mcg Tablet) 100 mcg PO DAILY [facility] Last Admin: 11/02/24 11:22 Dose: 100 mcg Famotidine (Famotidine 20 Mg Tablet) 20 mg PO BID [facility] Last Admin: 11/02/24 11:23 Dose: 20 mg Fluticasone/Vilanterol (Fluticasone/Vilanterol 200/25 Blst.W.Dev) 1 puff INHALE DAILY [facility] Last Admin: 11/02/24 07:51 Dose: 1 puff Folic Acid (Folic Acid 1 Mg Tablet) 1 mg PO DAILY [facility] Last Admin: 11/02/24 11:23 Dose: 1 mg Lactated Ringer's (Lr) 1,000 mls @ 80 mls/hr IVCONT .[id number] [facility] Last Admin: 11/02/24 15:03 Dose: 80 mls/hr Lactic Acid (Ammonium Lactate 12 % Cream 140 Gm Tube) 1 appl TOPICAL DAILY PRN; Protocol PRN Reason: Dry Skin Lorazepam (Lorazepam 0.5 Mg Tablet) 0.5 mg PO BID PRN PRN Reason: anxiety Last Admin: 11/01/24 21:17 Dose: 0.5 mg Magnesium Hydroxide (Milk Of Magnesia 30 Ml Oral.Susp) 30 ml PO DAILY PRN PRN Reason: Constipation Magnesium Ox[facility] ([facility] 400 Mg Tablet) [facility] Admin: 11/02/24 11:22 Dose: 400 mg Melatonin (Melatonin 3 Mg Tablet) 6 mg PO BEDTIME PRN PRN Reason: Insomnia Last Admin: 11/01/24 22:32 Dose: 6 mg Metoprolol Succinate (Metoprolol Succinate Er 100 Mg Tab.Er.24h) 100 mg PO DAILY [facility]; Protocol Last Admin: 11/02/24 11:23 Dose: 100 mg Ondansetron HCl (Ondansetron Hcl 4 Mg/2 Ml Vial) 4 mg IVPUSH Q8H PRN PRN Reason: Nausea and Vomiting Polyethylene Glycol (Polyethylene Glycol 3350 17 Gm Powd.Pack) 17 gm PO DAILY PRN PRN Reason: Constipation Last Admin: 10/31/24 07:52 Dose: 17 gm Potassium Chloride (Potassium Chloride Er 20 Meq Tab.Er.Prt) 20 meq PO DAILY [facility] Last Admin: 11/02/24 11:24 Dose: 20 meq Prednisone (Prednisone 20 Mg Tablet) 20 mg PO DAILY [facility] Senna (Sennosides 8.6 Mg Tablet) 17.2 mg PO BEDTIME [facility] Last Admin: 11/01/24 21:16 Dose: Not Given Sodium Chloride (0.9 % Sodium Chloride Flush 3 Ml Syringe) 3 ml IVFLUSH QSHIFT [facility] Last Admin: 11/02/24 08:32 Dose: 3 ml Spironolactone (Spironolactone 25 Mg Tablet) 25 mg PO DAILY [facility]; Protocol Last Admin: 11/01/24 09:01 Dose: 25 mg Tiotropium Shock (Tiotropium Shock 2.5 Mcg 1 Puff/2.5 Mcg Mist.Inhal) 2 puff INHALE DAILY [facility] Last Admin: 11/02/24 07:51 Dose: 2 puff Torsemide (Torsemide 20 Mg Tablet) 40 mg PO BID [facility]; Protocol Last Admin: 11/02/24 11:23 Dose: 40 mg Vitamin D (Cholecalciferol (Vitamin D3) 25 Mcg Tablet) 50 mcg PO DAILY [facility] Last Admin: 11/02/24 11:23 Dose: 50 mcg Home Medications ?Medication ?Instructions ?Recorded ?Confirmed ?Last Taken ?Type gabapentin 100 mg capsule 100 mg PO TID PRN Pain 09/07/24 10/30/24 Unknown History rosuvastatin 5 mg tablet 2.5 mg PO BEDTIME 09/07/24 10/30/24 10/20/24 History trolamine salicylate 10 % topical 1 appl topical DAILY PRN Pain 09/07/24 10/30/24 Unknown History cream (Aspercreme) cyanocobalamin (vitamin B-12) 100 100 mcg PO DAILY 10/21/24 10/30/24 10/21/24 History mcg tablet (Vitamin B-12) folic acid 800 mcg tablet 0.8 mg PO DAILY 10/21/24 10/30/24 10/21/24 History ammonium lactate 12 % topical cream 1 appl topical DAILY PRN Dry Skin 10/30/24 10/30/24 Unknown History lorazepam 0.5 mg tablet 0.5 mg PO BID PRN anxiety 10/30/24 10/30/24 Unknown History Exam Height,Weight and Vital Signs: Height 5 ft 4 in Weight 63.7 kg Last Vital Signs Temp 98.1 F 11/02/24 14:55 Pulse 90 11/02/24 14:55 Resp 18 11/02/24 14:55 BP 126/63 11/02/24 14:55 Pulse Ox 100 11/02/24 14:55 O2 Del Method Nasal Cannula 11/02/24 14:55 O2 Flow Rate 2 11/02/24 14:55 Oxygen Flow Rate 2 10/30/24 15:41 Pertinent Lab Results Pertinent Lab Results: Laboratory Tests 10/30/24 10/30/24 10/30/24 16:41 19:41 19:46 WBC 8.3 RBC 4.20 Hgb 10.8 L Hct 35.9 L MCV 85.5 MCH 25.7 L MCHC 30.1 L RDW 17.0 H Plt Count 189 MPV 10.7 Immature Gran % (Auto) 0.5 H Neut % (Auto) 70.6 Lymph % (Auto) 15.5 L Citrus % (Auto) 11.3 H Eos % (Auto) 1.3 Baso % (Auto) 0.8 Lymph # (Auto) 1.3 Citrus # (Auto) 0.9 Eos # (Auto) 0.1 Baso # (Auto) 0.1 Abs Immat Gran (auto) 0.04 H Absolute Neuts (auto) 5.9 Absolute Nucleated RBC 0.020 H Nucleated RBC % (auto) 0.2 VBG pH 7.44 H VBG pCO2 59 VBG pO2 26 VBG HCO3 40 H VBG O2 Saturation < 30.0 VBG Base Excess 14.0 Sodium 143 Potassium 3.3 Chloride 98 Carbon Dioxide 33 H Anion Gap 15 BUN 23 H Creatinine 1.02 Estim Creat Clear Calc 36.2 Estimated GFR 52 Random Glucose 101 Calcium 9.5 Magnesium 1.8 Total Bilirubin 1.1 H AST 36 H ALT 25 Alkaline Phosphatase 159 H Troponin I High Sens 15.4 20.4 H B-Natriuretic Peptide 2562 H Total Protein 6.5 Albumin 4.0 TSH Urine Color Urine Appearance Urine pH Ur Specific [place] Urine Protein Urine Glucose (UA) Urine Ketones Urine Blood Urine Nitrite Ur Leukocyte Esterase Urine RBC Urine WBC Ur Squamous Epith Cells Urine Bacteria Hyaline Casts Influenza Type A (PCR) NEGATIVE Influenza Type B (PCR) NEGATIVE RSV RNA Qual (PCR) NEGATIVE SARS-CoV-2 RNA (RT-PCR) NEGATIVE 10/31/24 10/31/24 11/01/24 05:30 06:00 08:23 WBC 8.0 RBC 3.93 L Hgb 10.2 L Hct 33.1 L MCV 84.2 MCH 26.0 L MCHC 30.8 L RDW 16.7 H Plt Count 202 MPV 9.7 Immature Gran % (Auto) 0.4 Neut % (Auto) 71.4 Lymph % (Auto) 14.4 L Citrus % (Auto) 11.2 H Eos % (Auto) 2.0 Baso % (Auto) 0.6 Lymph # (Auto) 1.2 Citrus # (Auto) 0.9 Eos # (Auto) 0.2 Baso # (Auto) 0.1 Abs Immat Gran (auto) 0.03 Absolute Neuts (auto) 5.7 Absolute Nucleated RBC 0.000 Nucleated RBC % (auto) 0.0 VBG pH VBG pCO2 VBG pO2 VBG HCO3 VBG O2 Saturation VBG Base Excess Sodium 144 141 Potassium 3.2 L 3.6 Chloride 100 97 Carbon Dioxide 33 H 31 H Anion Gap 14 17 BUN 19 H 24 H Creatinine 0.81 0.90 Estim Creat Clear Calc 47.8 43.0 Estimated GFR > 60 > 60 Random Glucose 105 111 Calcium 8.9 D 9.7 D Magnesium Total Bilirubin 1.1 H AST 32 H ALT 19 Alkaline Phosphatase 139 H Troponin I High Sens B-Natriuretic Peptide Total Protein 5.8 L Albumin 3.6 TSH 1.81 Urine Color Yellow Urine Appearance Clear Urine pH 7.5 Ur Specific [place] 1.010 Urine Protein Trace Urine Glucose (UA) Negative Urine Ketones Negative Urine Blood Negative Urine Nitrite Negative Ur Leukocyte Esterase Trace H Urine RBC 0-2 Urine WBC 6-10 H Ur Squamous Epith Cells 0-2 Urine Bacteria 4+ Hyaline Casts 0-2 Influenza Type A (PCR) Influenza Type B (PCR) RSV RNA Qual (PCR) SARS-CoV-2 RNA (RT-PCR) Airway Mallampati Class: II TM Dist: >3cm Neck ROM: Full Denture: Upper and Lower Heart: irreg Lungs: cta Assessment and Plan Assessment Anesthesia Assessment: Anesthesia Plan Discussed and Chart Reviewed Final Anesthetic Review Family History of Problems with Anesthesia: No History of Problems with Anesthesia: No NPO: Yes ASA Class: III Final Preanesthetic Review: No Changes in Pt Med Stat, Meds/Allgs Chart Reviewed and Consent Obtained/Reviewed Patient Risk: Intermediate Procedure Risk: Intermediate Anesthetic Plan Anesthetic Plan: GA Disposition: Standard PACU
--- NOTE | 2024-11-02 15:18 | MHC.SHP ---
Pre-Procedural Eval Section A - 24 Hr Update-Section A only Date of Service: 11/02/24 The patient is an INPATIENT: Yes Section B - Complete if H&P > 30 days Chief Complaint: dyspnea Allergies: Allergies Allergy/AdvReac Type Severity Reaction Status Date / Time Sulfa (Sulfonamide Allergy Intermediate nausea, Verified 10/30/24 15:43 Antibiotics) vomiting Plan I have reviewed the history and physical and performed a pertinent physical examination on my patient. No changes have occurred unless specified. Time Spent With Patient Time: Total time managing care of this patient today ____ minutes.
--- NOTE | 2024-11-02 15:18 | PC.NURSE ---
report given to malika johnson rn at 1510. aware that one spot on preop records needs to be signed after dr. morton receives consent for the procedure.
--- NOTE | 2024-11-02 15:19 | HO.CARDIVERS ---
Cardioversion Procedure Note Cardioversion Date of Procedure: 11/02/2024 Pre-Op Diagnosis: Atrial fibrillation Post-Op Diagnosis: Sinus rhythm Consent: Informed consent obtained. Procedure: After informed consent was obtained, patient was taken to the PACU. The patient was then positioned appropriately. The cardioversion pads were placed in anteroposterior position. Once under anesthesia, 120 joules of synchronized shock was administered. The rhythm converted from atrial fibrillation to sinus rhythm. Patient remained in sinus rhythm after the end of procedure. Complications: None Impression: Successful cardioversion from atrial fibrillation to sinus rhythm. Recommendations: Obtain EKG. Start flecainide.
--- NOTE | 2024-11-02 15:30 | ECG_ITS ---
Test Reason : POST OP Blood Pressure : */* mmHG Vent. Rate : 67 BPM Atrial Rate : 67 BPM P-R Int : 146 ms QRS Dur : 82 ms QT Int : 438 ms P-R-T Axes : 85 -68 -54 degrees QTcB Int : 462 ms Sinus rhythm with Premature supraventricular complexes Left axis deviation Minimal voltage criteria for LVH, may be normal variant ( Rosales product ) ST & T wave abnormality, consider anterolateral ischemia Abnormal ECG When compared with ECG of 30-Oct-2024 16:23, Sinus rhythm has replaced Atrial fibrillation Inverted T waves have replaced nonspecific T wave abnormality in Anterior leads T wave inversion less evident in Lateral leads Referred By: Ruben Herndon Electronically Signed By: RUBEN HERNDON
[2024-11-02] MEDS: Flecainide Acetate 50 MG TABLET PO ×2 (16:17→20:39)
[2024-11-02] MEDS: Sennosides 8.6 MG TABLET 17.2 MG PO (20:09)
[2024-11-02] MEDS: Melatonin 3 MG TABLET 6 MG PO (20:16)
[2024-11-02] MEDS: LORazepam 0.5 MG TABLET PO (20:16)
[2024-11-03] VITALS (10 sets, daily range): BP systolic 120–141; BP diastolic 54–61; PULSE 53–74; RESP 15–20; TEMP 36.1–37.1; O2SAT 92–100; BMI 24.0
[2024-11-03] MEDS: 0.9 % Sodium Chloride Flush 3 ML SYRINGE IVFLUSH ×2 (00:30→17:47)
[2024-11-03] MEDS: Lactated Ringers 1,000 ML 80 ML IVCONT (03:28)
[2024-11-03] MEDS: Tiotropium Bromide 2.5 mcg 1 PUFF/2.5 MCG MIST.INHAL 2 PUFF INHALE (08:13)
[2024-11-03] MEDS: Fluticasone/Vilanterol 200/25 BLST.W.DEV 1 PUFF INHALE (08:13)
[2024-11-03] MEDS: Albuterol/Iprat 2.5/0.5MG 3 ML AMPUL.NEB INHALE ×4 (08:13→19:59)
[2024-11-03] MEDS: Cholecalciferol (Vitamin D3) 25 MCG TABLET 50 MCG PO (08:15)
[2024-11-03] MEDS: Folic Acid 1 MG TABLET PO (08:15)
[2024-11-03] MEDS: Atorvastatin Calcium 10 MG TABLET PO (08:16)
[2024-11-03] MEDS: Famotidine 20 MG TABLET PO ×2 (08:16→20:37)
[2024-11-03] MEDS: Cyanocobalamin (Vitamin B-12) 100 MCG TABLET PO (08:16)
[2024-11-03] MEDS: Flecainide Acetate 50 MG TABLET PO ×2 (08:16→11:49)
[2024-11-03] MEDS: Magnesium Oxide 400 MG TABLET PO ×2 (08:16→17:45)
[2024-11-03] MEDS: Apixaban 5 MG TABLET PO ×2 (08:16→20:38)
[2024-11-03] MEDS: Potassium Chloride ER 20 MEQ TAB.ER.PRT PO (08:17)
[2024-11-03] MEDS: Torsemide 20 MG TABLET 40 MG PO ×2 (08:17→20:37)
[2024-11-03] MEDS: predniSONE 20 MG TABLET PO (08:26)
[2024-11-03] MEDS: Metoprolol Succinate ER 100 MG TAB.ER.24H PO (08:29)
[2024-11-03] MEDS: Milk of Magnesia 30 ML ORAL.SUSP PO (08:31)
--- NOTE | 2024-11-03 08:57 | HO.POSTANES ---
Post Anesthesia Evaluation Post Anesthesia Evaluation Date of Service: 11/03/24 Vital Signs: Vital Signs Temp Pulse Resp BP Pulse Ox O2 Del Method O2 Flow Rate 11/03/24 08:13 62 17 11/03/24 07:37 97.6 F 68 18 120/54 L 97 Nasal Cannula 2 11/03/24 04:00 98.8 F 66 16 125/57 L 100 Nasal Cannula 2 11/02/24 23:35 98.5 F 74 16 119/53 L 100 Nasal Cannula 2 Anesthesia: General Mental Status: Awake Pain Control: Satisfactory Nausea/Vomiting: None Hydration: Adequate Anesthesia-Related Issues: No Anes. Related Issues
--- NOTE | 2024-11-03 10:33 | PM.PNCARD ---
Subjective Subjective Date of Service: 11/03/24 Interval history: Patient underwent cardioversion yesterday. She converted to sinus rhythm. On telemetry, she has got sinus rhythm/PACs. She received flecainide 50 mg yesterday. Otherwise, feels okay. Review of Systems Review of Systems Yes all other systems are reviewed and are negative Constitutional: Reports as per HPI and Reports no additional constitutional complaints Eyes: Reports as per HPI and Denies no additional eye complaints Denies system reviewed and no additional complaints, except as documented and Reports as per HPI Cardiovascular: Reports as per HPI, Reports no additional cardiovascular complaints, Denies acrocyanosis, Denies cool extremities, Denies chest pain, Denies leg edema, Denies lightheadedness, Denies palpitations and Reports dyspnea Respiratory: Reports as per HPI, Denies no additional respiratory complaints and Reports dyspnea Gastrointestinal: Reports as per HPI and Denies no additional gastrointestinal complaints Genitourinary: Reports as per HPI Musculoskeletal: Reports no additional musculoskeletal complaints and Reports as per HPI Skin/Breast: Reports system reviewed and no additional complaints, except as docu Reports system reviewed and no additional complaints, except as documented and Reports as per HPI Psychiatric: Reports no additional psychiatric complaints and Reports as per HPI Endocrine: Reports no additional endocrine complaints, Reports as per HPI and Denies palpitations Hematologic/Lymphatic: Reports no additional hematologic/lymphatic complaints and Reports as per HPI Allergic/Immunologic: Reports no additional allergic/immunologic complaints and Reports as per HPI Physical Exam Vital Signs: Last Vital Signs Temp 97.6 F 11/03/24 07:37 Pulse 62 11/03/24 08:13 Resp 17 11/03/24 08:13 BP 120/54 L 11/03/24 07:37 Pulse Ox 97 11/03/24 07:37 O2 Del Method Nasal Cannula 11/03/24 07:37 O2 Flow Rate 2 11/03/24 07:37 Oxygen Flow Rate 2 10/30/24 15:41 BMI result Body Mass Index 24.0 Const General: comfortable and no acute distress Orientation/consciousness: patient oriented x3 HEENT Other: Unremarkable Head: Yes normal to inspection Neck Neck: Yes normal visual inspection Chest Chest palpation & inspection: normal inspection of the chest Resp Auscultation: diminished lung sounds Cardio Palpation: normal PMI Heart sounds: S1 normal heart sound present, S2 normal heart sound present, no gallops, no murmurs and no rubs GI Palpation (GI): Soft to palpation Back/Spine/Pelvis Other: unremarkable Skin General skin exam: no rashes or lesions noted Neuro General: patient oriented x3 Extrem General: Yes normal to inspection Psych Mental Status: mental status grossly normal Objective Labs and Meds 10/31/24 06:00 11/01/24 08:23 Progress Note: A&P Assessment and plan (1) Atrial fibrillation with rapid ventricular response: Status: Acute (2) Cardiomyopathy: Status: Acute (3) CHF (congestive heart failure): Status: Acute (4) COPD (chronic obstructive pulmonary disease): Status: Acute Plan Status post cardioversion yesterday. She converted to sinus rhythm. On telemetry, she has got sinus rhythm/PACs. After discussion with her own education and training manager , he preferred her to be on Flecainide. She can go home on Flecainide 100 mg b.i.d.. Now that she is back to normal sinus rhythm, hopefully her heart failure symptoms could improve. However, there is still risk of recurrence with atrial fibrillation because of advanced lung disease. We discussed about this today. Follow up in clinic will be arranged. Discussed with Dr. Chavez. Discussed with family at the bedside. Time Spent With Patient Time: Total time managing care of this patient today ____ minutes. Progress Note: Quality Stroke Does the patient have a stroke diagnosis?: No Reason for No Anti-thrombotic by Day Two: N/A - Med Ordered Procedures Date of Service Date of Service: 11/03/24
--- NOTE | 2024-11-03 15:03 | MHC.CM.PN ---
EMR reviewed and per MD rounds, pt is medically cleared for discharge to [facility], insurance auth is pending at [facility].
--- NOTE | 2024-11-03 16:11 | P.PNIM_ITS ---
Subjective Subjective Date of Service: 11/03/24 Interval History: chf ,afib Review of Systems sob,dizziness improved. Review of Systems: Yes all other systems are reviewed and are negative Physical Exam 2 Vital Signs: Vital Signs: Last Vital Signs Temp 97.4 F 11/03/24 15:13 Pulse 68 11/03/24 15:49 Resp 18 11/03/24 15:49 BP 130/59 L 11/03/24 15:13 Pulse Ox 97 11/03/24 15:13 O2 Del Method Nasal Cannula 11/03/24 15:13 O2 Flow Rate 2 11/03/24 15:13 Oxygen Flow Rate 2 10/30/24 15:41 BMI result Body Mass Index 24.0 Appearance: Alert.? Oriented X3.. cvs: rrr, [id number] . res: air entry fair ,no rales or wheezing abd: no rebound or guarding ,nt, bs present. ext pulses present , no cyanosis. neuro: axo3 , nonfocal. Objective Data Active Medications Acetaminophen (Acetaminophen 325 Mg Tablet) 650 mg PO Q6H PRN PRN Reason: Pain, Mild 1-3,fever,headache Last Admin: 11/01/24 09:00 Dose: 650 mg Documented By: DAYSI Albuterol/Ipratropium (Albuterol/Iprat 2.5/0.5mg 3 Ml Ampul.Neb) 3 ml INHALE RQ4H [facility] Last Admin: 11/03/24 15:46 Dose: 3 ml Documented By: BELA Apixaban (Apixaban 5 Mg Tablet) 5 mg PO BID [facility] Last Admin: 11/03/24 08:16 Dose: 5 mg Documented By: AVELINO Atorvastatin Calcium (Atorvastatin Calcium 10 Mg Tablet) 10 mg PO DAILY [facility] Last Admin: 11/03/24 08:16 Dose: 10 mg Documented By: AVELINO Calcium Carbonate (Calcium Carbonate 750 Mg Tab.Chew) 750 mg PO Q4H PRN PRN Reason: Heartburn Cyanocobalamin (Cyanocobalamin (Vitamin B-12) 100 Mcg Tablet) 100 mcg PO DAILY [facility] Last Admin: 11/03/24 08:16 Dose: 100 mcg Documented By: AVELINO Famotidine (Famotidine 20 Mg Tablet) 20 mg PO BID [facility] Last Admin: 11/03/24 08:16 Dose: 20 mg Documented By: AVELINO Flecainide Acetate (Flecainide Acetate 50 Mg Tablet) 100 mg PO BID [facility] Last Admin: 11/03/24 10:11 Dose: Not Given Documented By: AVELINO Non-Admin Reason: see nurse note Fluticasone/Vilanterol (Fluticasone/Vilanterol 200/25 Blst.W.Dev) 1 puff INHALE DAILY [facility] Last Admin: 11/03/24 08:13 Dose: 1 puff Documented By: ORVILLE Folic Acid (Folic Acid 1 Mg Tablet) 1 mg PO DAILY [facility] Last Admin: 11/03/24 08:15 Dose: 1 mg Documented By: AVELINO Lactic Acid (Ammonium Lactate 12 % Cream 140 Gm Tube) 1 appl TOPICAL DAILY PRN; Protocol PRN Reason: Dry Skin Lorazepam (Lorazepam 0.5 Mg Tablet) 0.5 mg PO BID PRN PRN Reason: anxiety Last Admin: 11/02/24 20:16 Dose: 0.5 mg Documented By: ZOILA Magnesium Hydroxide (Milk Of Magnesia 30 Ml Oral.Susp) 30 ml PO DAILY PRN PRN Reason: Constipation Last Admin: 11/03/24 08:31 Dose: 30 ml Documented By: AVELINO Magnesium Ox[facility] ([facility] 400 Mg Tablet) [facility] Admin: 11/03/24 08:16 Dose: 400 mg Documented By: AVELINO Melatonin (Melatonin 3 Mg Tablet) 6 mg PO BEDTIME PRN PRN Reason: Insomnia Last Admin: 11/02/24 20:16 Dose: 6 mg Documented By: ZOILA Metoprolol Succinate (Metoprolol Succinate Er 100 Mg Tab.Er.24h) 100 mg PO DAILY [facility]; Protocol Last Admin: 11/03/24 08:29 Dose: 100 mg Documented By: AVELINO Naloxone HCl (Naloxone Hcl 0.4 Mg/Ml Vial) 0.04 mg IVPUSH Q5M PRN PRN Reason: Excessive sedation or RR < 8 Polyethylene Glycol (Polyethylene Glycol 3350 17 Gm Powd.Pack) 17 gm PO DAILY PRN PRN Reason: Constipation Last Admin: 10/31/24 07:52 Dose: 17 gm Documented By: DAYSI Potassium Chloride (Potassium Chloride Er 20 Meq Tab.Er.Prt) 20 meq PO DAILY [facility] Last Admin: 11/03/24 08:17 Dose: 20 meq Documented By: AVELINO Prednisone (Prednisone 20 Mg Tablet) 20 mg PO DAILY [facility] Last Admin: 11/03/24 08:26 Dose: 20 mg Documented By: AVELINO Senna (Sennosides 8.6 Mg Tablet) 17.2 mg PO BEDTIME [facility] Last Admin: 11/02/24 20:09 Dose: 17.2 mg Documented By: ZOILA Sodium Chloride (0.9 % Sodium Chloride Flush 3 Ml Syringe) 3 ml IVFLUSH QSHIFT [facility] Last Admin: 11/03/24 08:14 Dose: Not Given Documented By: AVELINO Non-Admin Reason: No Access Spironolactone (Spironolactone 25 Mg Tablet) 25 mg PO DAILY [facility]; Protocol Last Admin: 11/01/24 09:01 Dose: 25 mg Documented By: DAYSI Tiotropium Bruno (Tiotropium Bruno 2.5 Mcg 1 Puff/2.5 Mcg Mist.Inhal) 2 puff INHALE DAILY [facility] Last Admin: 11/03/24 08:13 Dose: 2 puff Documented By: ORVILLE Torsemide (Torsemide 20 Mg Tablet) 40 mg PO BID [facility]; Protocol Last Admin: 11/03/24 08:17 Dose: 40 mg Documented By: AVELINO Vitamin D (Cholecalciferol (Vitamin D3) 25 Mcg Tablet) 50 mcg PO DAILY [facility] Last Admin: 11/03/24 08:15 Dose: 50 mcg Documented By: AVELINO Labs 10/31/24 06:00 11/01/24 08:23 Assessment and Plan (1) COPD exacerbation: Status: Acute Assessment and Plan: 79-year-old female with past medical history of COPD/emphysema, atrial fibrillation on Eliquis,HFpEF on torsemide, recent weight loss with dysphagia, chronic GERD, insomnia, osteoarthritis, non STEMI, vitamin-D deficiency being admitted under observation for CHF and COPD exacerbation with near syncopal episode and generalized weakness. Near-syncope - fall/ Left foot pain/ AFib on Eliquis/ hypertension/ hyperlipidemia: BNP 2562 Troponin flat,EKG- AFib similar to . Last echo 10/14/2024 - EF 60-65% with moderate biatrial enlargement and mild mitral and aortic regurgitation with severely elevated right ventricular systolic pressure, no gross pericardial effusion plan: s/p cardioversion 11/02/24 dizziness seems improved. orthos negative Carotid Dopplers-Normal carotid velocities, no significant stenosis (0-49% stenosis) Telemetry and continuous pulse ox Continue Eliquis and metoprolol,added flacainde 100 mg po bid, torsemide 40 mg bid Paf :afib with rvr s/p cardioversion-now in nsr continue bb as above ,eliquis . foot pain; xray:Dorsal soft tissue swelling. No acute underlying bony abnormality. able to move and walk. Tylenol for left foot pain, ice p.r.n., elevation, monitor for increasing swelling or discomfort HFrEF exacerbation, no hypoxia-continue telemetry and continuous pulse ox s/p iv torsemide . now on po torcemide plan:improved,continue po torcemide . hypokalemia:repleted and resolved. COPD exacerbation, no hypoxia seems improved nebs,po steriods Generalized weakness/ BMI of 19.7 with intermittent loss of appetit/ dysphagia with GERD speech therapy eval -diet updated. continue PPI and substitute for cimetidine nutrionist follwing pt eval-str DVT prophylaxis: Eliquis. PPI prophylaxis: Omeprazole Patient is a DNR DNI and MOLST . Patient is agreeable to noninvasive ventilation at this time. ongooing need for stay:awaiting placement. Quality Stroke Does the patient have a stroke diagnosis?: No Reason for No Anti-thrombotic by Day Two: N/A - Med Ordered VTE Prior VTE?: No VTE Risk Level:: Medical - moderate - high VTE Device Contraindication: N/A - Device Ordered VTE Drug Contraindication: N/A - Med Ordered
[2024-11-03] MEDS: Flecainide Acetate 50 MG TABLET 100 MG PO (20:38)
[2024-11-03] MEDS: LORazepam 0.5 MG TABLET PO (20:41)
--- NOTE | 2024-11-03 21:51 | PC.NURSE ---
Addendum entered by Gretchen Livingston RN 11/04/24 04:57: Early 01:00 hour: In-room VMT camera in place witnessed this pt get up from the bed and attempt to sit on the nearby locked recliner. Per VMT observation, the pt did not sit back far enough and slid down the front of the chair onto the floor. This health underwriter and BAY STOCKER immediately responded to this pt's room after hearing a thud while entering another nearby patient's room. Staff observed this patient sitting on her buttocks in an upright position with legs in front of her on the floor at the foot of the chair. Patient denied hitting her head, dizziness, weakness, or other s/s leading up to the fall as well as after the fall on reassessment. VMT staff member that witnessed this event confirmed there was no head strike. No identifiable head injury was noted on assessment. Pt mentation was consistent/unchanged from earlier assessment by health underwriter. Speech clear. Face symmetrical. Conjugate gaze, +perrla. Pt moving all extremities, +radial and dp pulses, +cms. Vitals obtained in place were stable. Covering Dr. Coyle as well as the nursing powerhouse mechanic supervisor were immediately notified. No new interventions advised from . 1:1 sitter was obtained and placed with the assistance of the nursing powerhouse mechanic supervisor as the pt continues to refuse alarms and assistance OOB despite education attempts. Patient was able to get herself up from the floor and back into bed with staff standby/minimal assistance. Only noted injury is skin tear to left upper posterior arm. Xeroform and gauze roll were applied. Patient continues with frequent redirecting/reorienting, in-room camera, and 1:1 sitter. Plan of care continues. Original Note: Assumed care of this patient at 19:15. Patient was initially A&Ox4 and offered c/o anxiety for which she requested and was given prn ativan as per AUG. Discussed safety measures with the patient during this initial interaction though pt refused the bed/chair alarms and assistance out of bed to the bedside commode. On reassessment, the pt was noted to be increasingly confused, attempting to wander into the [place] with her walker stating she was looking for more tubing in my bedroom . Patient had no nc o2 on during this time. Patient was redirected and reoriented, assisted back to bed and educated on safety measures. Patient continues to refuse alarms and requires redirection. In-room camera was placed and safety concerns discussed with the patient as well as VMT. Plan of care continues.
[2024-11-04] VITALS (11 sets, daily range): BP systolic 105–143; BP diastolic 43–70; PULSE 52–58; RESP 16–20; TEMP 36–36.7; O2SAT 92–100; BMI 27.2
[2024-11-04] MEDS: Albuterol/Iprat 2.5/0.5MG 3 ML AMPUL.NEB INHALE ×3 (01:59→20:05)
[2024-11-04] MEDS: Apixaban 5 MG TABLET PO ×2 (08:44→20:27)
[2024-11-04] MEDS: predniSONE 20 MG TABLET PO (08:44)
[2024-11-04] MEDS: Magnesium Oxide 400 MG TABLET PO ×2 (08:44→17:47)
[2024-11-04] MEDS: Folic Acid 1 MG TABLET PO (08:44)
[2024-11-04] MEDS: Cyanocobalamin (Vitamin B-12) 100 MCG TABLET PO (08:44)
[2024-11-04] MEDS: Cholecalciferol (Vitamin D3) 25 MCG TABLET 50 MCG PO (08:44)
[2024-11-04] MEDS: Famotidine 20 MG TABLET PO ×2 (08:44→20:26)
[2024-11-04] MEDS: Flecainide Acetate 50 MG TABLET 100 MG PO (08:56)
[2024-11-04] MEDS: Torsemide 20 MG TABLET 40 MG PO ×2 (09:07→20:27)
--- NOTE | 2024-11-04 10:52 | P.DS_ITS ---
DS: Providers Provider Date of Service: 11/04/24 Date of admission: 10/31/24 08:45 Date of discharge: 11/04/24 Primary care physician: Parul Williamson MD Consults: 10/30/24 22:06 Consult to Cardiology Routine Consulting Provider: [facility] [place] [facility] Reason for consultation: CHF exacerbation, near syncope Has provider been notified: No Consult to Pulmonology Routine Consulting Provider: [facility] – [place] [facility] Reason for consultation: COPD exacerbation, worsening progression of disease overall DS: Diagnosis Discharge Diagnosis (1) COPD exacerbation: Status: Acute (2) Supplemental oxygen dependent: Status: Acute (3) Acute on chronic heart failure with preserved ejection fraction: Status: Acute (4) Atrial fibrillation with rapid ventricular response: Status: Acute (5) Atrial fibrillation status post cardioversion: Status: Acute DS: Summary Hospital Course Hospital Course: Admission note HPI Patient is an 79-year-old female with past medical history of COPD/emphysema, atrial fibrillation on Eliquis,HFpEF on torsemide, recent weight loss with dysphagia, chronic GERD, insomnia, osteoarthritis, non STEMI, vitamin- D deficiency was driven into the ED by her granddaughter status post an episode involving dizziness and weakness while standing at the bathroom sink where suddenly patient fell backwards and remembers falling on her right side and hitting her head on the wall but no loss of consciousness per patient. Patient lives alone and no one else was at home at the time of the event. Patient does not wear a emergency or lifeline device. Patient crawled from the bathroom to the location of her cell phone and called her daughter. Her daughter arrived and patient was able to get back to bed and as she went through the next few hours continued to feel weaker and worse overall with nonspecific symptoms. Patient denied any chest pain throughout all of this. Patient denies history of seizure or stroke. Patient was wearing her oxygen and is normally on 2 L at home. Neuro exam currently is reassuring. CT of the head negative for any acute findings. Patient is on Eliquis. CT of the cervical spine negative for acute fracture or dislocation. Patient was complaining of left foot pain after her fall and x-ray indicated dorsal soft tissue swelling but no acute fracture or dislocation. Ankle x-ray no acute bony abnormalities but does show mild lateral greater than medial soft tissue swelling. Patient is currently able to bear weight on the affected foot. Patient is using walker at this time. Chest x-ray indicates cardiomegaly, severe hyper aeration of lungs with increased interstitial markings throughout, but no evidence of pneumonia pneumothorax or pleural effusion. Patient was recently discharged from the hospital last Saturday for bilateral lower extremity edema and was changed from Lasix to torsemide. It was recommended per PT that patient attend short-term rehab but patient refused and preferred to do rehab at home. Patient has become more dependent on her walker over the last week due to generalized weakness. Patient also reports problems with swallowing both food and medications. In addition patient reports decrease in appetite and BMI today is 19.7. Patient being admitted for near syncopal event, exacerbation of CHF and COPD with no acute hypoxia or signs of sepsis. Patient has been contemplating assisted living but is overwhelmed with the idea that she has to sell her home and figure out how she is going to pay for the service. Hospital course The patient was admitted to the hospital for the followiong: Near-syncope complicated with fall/ Left foot pain. Found to be in symptomatic Afib w RvR complicated with symptomatic heart failure. treated with Torsemide and Metoprolol with fair response but continued to complain of dyspnea and dizziness. Evaluated by cardiology team who decided to do Cardioversion which was done successfully on 11/02/2024 and patient maintained in sinus rhythm with addition of Flecainide. Carotid Dopplers-Normal carotid velocities, no significant stenosis (0-49% stenosis) # Orthostatics rechecked and negative. # She was able to participate with PT who recommended STR. Foot xray:Dorsal soft tissue swelling. No acute underlying bony abnormali Tx: ice p.r.n., elevation, monitor for increasing swelling or discomfortty. # Treated for COPD exacerbation with nebulizers and steroids with good response. she is on chronic O2 supplement. # hypokalemia:repleted and resolved. # Generalized weakness/ BMI of 19.7 with intermittent loss of appetit/ dysphagia with GERD. speech therapy eval -diet updated. Discharge plan Start Flecainide two times a day Continue Metroprolol, discuss with cardiology regarding the dose if heart is too slow Follow with cardiology as outpatient Continue Prednisone daily Time Attestation Discharge Coordination Time (in mins): 42 Quality: Safe Use of Opioids Does Pt have an Active Cancer Diagnosis on the Problem List?: No Quality: Stroke Does the patient have a stroke diagnosis?: No Physical Exam Vital Signs: Vital Signs: Last Vital Signs Temp 97.8 F 11/04/24 07:09 Pulse 54 11/04/24 07:09 Resp 18 11/04/24 07:09 BP 126/43 L 11/04/24 07:09 Pulse Ox 96 11/04/24 07:09 O2 Del Method Nasal Cannula 11/04/24 07:09 O2 Flow Rate 2 11/04/24 07:09 Oxygen Flow Rate 2 10/30/24 15:41 BMI result Body Mass Index 27.2 Const: Other: Constitutional : Awake, interactive, not in distress Neck : Normal inspection, Supple Cardiovascular : RRR, no JVP, no lower extremity edema Respiratory : good bilateral air entry, no crackles, wheezes or rhonchi, on O2 supplement Gastrointestinal: soft, lax, Normal bowel sounds, Non tender Skin : Warm, Dry Neurological : Alert & oriented x3, No focal deficit DS: Data Imaging Chest x-ray: Radiologist's impression: ITS Impressions Ankle X-Ray 10/30/24 15:43 IMPRESSION: 1. No acute bony abnormalities. 2. Mild lateral greater than medial soft tissue swelling. Electronically signed by: Abhijeet Pearl MD 10/30/2024 04:16 PM EDT RP Cervical Spine CT 10/30/24 15:43 IMPRESSION: No acute fracture or dislocation. Mild DJD. Fleischner guidelines were followed. Electronically signed by: Lev Dominique MD 10/30/2024 05:02 PM EDT RP Chest X-Ray 10/30/24 15:43 IMPRESSION: Cardiomegaly. Severe COPD without definite superimposed active disease. Electronically signed by: Abhijeet Pearl MD 10/30/2024 04:14 PM EDT RP Foot X-Ray 10/30/24 15:43 IMPRESSION: Dorsal soft tissue swelling. No acute underlying bony abnormality. Electronically signed by: Abhijeet Pearl MD 10/30/2024 04:15 PM EDT RP Head CT 10/30/24 15:43 IMPRESSION: No acute intracranial process seen. Electronically signed by: Lev Dominique MD 10/30/2024 04:57 PM EDT RP Discharge Plan Discharge Anticipated Discharge Date/Time: 11/04/24 10:46 Patient Disposition: Xfer SNF Discharge Diagnosis: Atrial fibrillation Referrals: [facility] [Outside] - 1 Week Parul Cartagena MD [Primary Care Provider] - 1 Week Discharge Medications: New flecainide 50 mg Tablet 100 mg PO BID 90 Days Qty: 360 0RF prednisone 20 mg tablet 20 mg PO DAILY Qty: 3 0RF Continued Eliquis 5 mg tablet 5 mg PO BID 90 Days Qty: 180 1RF Spiriva Respimat 2.5 mcg/actuation mist 2 puff inhalation DAILY 30 Days Qty: 4 5RF Rx Instructions: cannot use SPIRIVS HANDI_HALOR cholecalciferol (vitamin D3) 50 mcg (2,000 unit) capsule 50 mcg PO DAILY 90 Days Qty: 90 1RF metoprolol succinate 100 mg tablet extended release 24 hr 100 mg PO DAILY 90 Days Qty: 90 1RF cimetidine 400 mg tablet 400 mg PO BID 30 Days Qty: 60 0RF Rx Instructions: administer with meals levalbuterol tartrate 45 mcg/actuation HFA aerosol inhaler 2 puff inhalation Q4-6H PRN (Reason: shortness of breath) 30 Days Qty: 15 3RF fluticasone furoate-vilanterol [Breo Ellipta] 200-25 mcg/dose blister with device 1 inh inhalation DAILY Qty: 60 2RF pantoprazole 40 mg tablet,delayed release (DR/EC) 40 mg PO DAILY@0630 90 Days Qty: 90 1RF cyanocobalamin (vitamin B-12) [Vitamin B-12] 100 mcg Tablet 100 mcg PO DAILY folic acid 800 mcg Tablet 0.8 mg PO DAILY torsemide 20 mg Tablet 40 mg PO BID Qty: 360 0RF Protocol: Hold for SBP< HOLD for SBP < : 90 magnesium oxide 400 mg (241.3 mg magnesium) Tablet 400 mg PO BIDPC Qty: 180 0RF potassium chloride 20 mEq/15 mL liquid 20 meq PO DAILY Qty: 1500 0RF ammonium lactate 12 % cream 1 appl topical DAILY PRN (Reason: Dry Skin) lorazepam 0.5 mg tablet 0.5 mg PO BID PRN (Reason: anxiety) rosuvastatin 5 mg tablet 2.5 mg PO BEDTIME gabapentin 100 mg capsule 100 mg PO TID PRN (Reason: Pain) trolamine salicylate [Aspercreme] 10 % Cream 1 appl TOPICAL DAILY PRN (Reason: Pain) (DME) compr.stocking,knee,long,small Misc See Rx Instructions .Route Qty: 2 1RF Rx Instructions: As directed Discharge Orders: Discharge Order (Routine); Ordered 11/04/24 Ordered By: Sanket Kennedy Diet: Low salt diet Activity on Discharge: As tolerated Stand Alone Forms: Patient Portal Discharge page Print Language: Yi Care Plan Goals: Start Flecainide two times a day Continue Metroprolol, discuss with cardiology regarding the dose if heart is too slow Follow with cardiology as outpatient Continue Prednisone daily Health Concerns: Atrial fibrillation COPD exacerbation Plan of Treatment: Cardioversion Flecainide Prednisone Assessment: as above
--- NOTE | 2024-11-04 11:45 | MHC.CM.PN ---
Addendum entered by Opal Cali 11/04/24 13:47: Discharge on hold for today per MD. [place] notified. Original Note: Insurance auth obtained for pt to go to STR at [facility], pts daughter will transport her there today. Second IMM given 11/04.
--- NOTE | 2024-11-04 12:20 | PM.PNCARD ---
Subjective Subjective Date of Service: 11/04/24 Interval history: She states that she is not feeling too good today. Feels cold in her extremities. Transient blurring vision. Then it seems that she got heart blankets on her extremities and then felt better. Review of Systems Review of Systems Yes all other systems are reviewed and are negative Constitutional: Reports as per HPI and Reports no additional constitutional complaints Eyes: Reports as per HPI and Denies no additional eye complaints Denies system reviewed and no additional complaints, except as documented and Reports as per HPI Cardiovascular: Reports as per HPI, Reports no additional cardiovascular complaints, Denies acrocyanosis, Denies cool extremities, Denies chest pain, Denies leg edema, Denies lightheadedness, Denies palpitations and Denies dyspnea Respiratory: Reports as per HPI, Denies no additional respiratory complaints and Denies dyspnea Gastrointestinal: Reports as per HPI and Denies no additional gastrointestinal complaints Genitourinary: Reports as per HPI Musculoskeletal: Reports no additional musculoskeletal complaints and Reports as per HPI Skin/Breast: Reports system reviewed and no additional complaints, except as docu Reports system reviewed and no additional complaints, except as documented and Reports as per HPI Psychiatric: Reports no additional psychiatric complaints and Reports as per HPI Endocrine: Reports no additional endocrine complaints, Reports as per HPI and Denies palpitations Hematologic/Lymphatic: Reports no additional hematologic/lymphatic complaints and Reports as per HPI Allergic/Immunologic: Reports no additional allergic/immunologic complaints and Reports as per HPI Physical Exam Vital Signs: Last Vital Signs Temp 97.2 F 11/04/24 12:00 Pulse 56 11/04/24 12:00 Resp 20 11/04/24 12:00 BP 140/70 H 11/04/24 12:00 Pulse Ox 100 11/04/24 12:00 O2 Del Method Nasal Cannula 11/04/24 12:00 O2 Flow Rate 2 11/04/24 12:00 Oxygen Flow Rate 2 10/30/24 15:41 BMI result Body Mass Index 27.2 Const General: comfortable and no acute distress Orientation/consciousness: patient oriented x3 HEENT Other: Unremarkable Head: Yes normal to inspection Neck Neck: Yes normal visual inspection Chest Chest palpation & inspection: normal inspection of the chest Resp Auscultation: clear to auscultation bilaterally Cardio Palpation: normal PMI Heart sounds: S1 normal heart sound present, S2 normal heart sound present, no gallops, no murmurs and no rubs GI Palpation (GI): Soft to palpation Back/Spine/Pelvis Other: unremarkable Skin General skin exam: no rashes or lesions noted Neuro General: patient oriented x3 Extrem General: Yes normal to inspection Psych Mental Status: mental status grossly normal Objective Labs and Meds 10/31/24 06:00 11/01/24 08:23 Progress Note: A&P Assessment and plan (1) Atrial fibrillation with rapid ventricular response: Status: Acute (2) Cardiomyopathy: Status: Acute (3) CHF (congestive heart failure): Status: Acute (4) COPD (chronic obstructive pulmonary disease): Status: Acute Plan She underwent cardioversion on Saturday. 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 She initially got flecainide 50 mg dose. There were frequent PACs and hence we had increased the dose to 100 mg b.i.d.. She is also on beta-blockers. Currently, heart rate is about 52/Min. Not clear if her symptoms are because of bradycardia. In this instance, we can hold off on anymore flecainide today. She did not get her morning dose of beta-blockers today either. We can hold off. We can reasons the heart rate tomorrow and give possibly smaller doses of the above. However, with smaller doses there is also risk of going back into atrial fibrillation. Continue anticoagulation otherwise. We will follow up with you. Discussed with Dr. Kennedy. Discussed with daughter at the bedside. Time Spent With Patient Time: Total time managing care of this patient today ____ minutes. Progress Note: Quality Stroke Does the patient have a stroke diagnosis?: No Reason for No Anti-thrombotic by Day Two: N/A - Med Ordered Procedures Date of Service Date of Service: 11/04/24
--- NOTE | 2024-11-04 12:59 | PC.NURSE ---
Patient reporting 5 minutes of visual disturbance with bilateral hand numbness. MD notified. Requested orthostatics tested with the following results: Lying 140/70 HR 56. Sitting 133/65 HR 54 Standing 142/67 HR 62. Orthos sent to MD. Discharge canceled for today.
--- NOTE | 2024-11-04 14:00 | HO.PM.IMPN ---
Subjective Subjective Date of Service: 11/04/24 Interval History: seen and evaluated for planned discharge today and orders were placed she was getting ready to leave when she reported lightheadedness and numbness in extremities with feeling weak no changes on Telemetry reported Review of Systems Review of Systems: Yes all other systems are reviewed and are negative Physical Exam Vital Signs: Vital Signs: Last Vital Signs Temp 97.2 F 11/04/24 12:00 Pulse 56 11/04/24 12:00 Resp 20 11/04/24 12:00 BP 140/70 H 11/04/24 12:00 Pulse Ox 100 11/04/24 12:00 O2 Del Method Nasal Cannula 11/04/24 12:00 O2 Flow Rate 2 11/04/24 12:00 Oxygen Flow Rate 2 10/30/24 15:41 BMI result Body Mass Index 27.2 Const: Other: Constitutional : Awake, interactive, not in distress Neck : Normal inspection, Supple Cardiovascular : RRR, no JVP, no lower extremity edema Respiratory : good bilateral air entry, no crackles, wheezes or rhonchi, on O2 supplement Gastrointestinal: soft, lax, Normal bowel sounds, Non tender Skin : Warm, Dry Neurological : Alert & oriented x3, No focal deficit Objective Data Active Medications Acetaminophen (Acetaminophen 325 Mg Tablet) 650 mg PO Q6H PRN PRN Reason: Pain, Mild 1-3,fever,headache Last Admin: 11/01/24 09:00 Dose: 650 mg Documented By: DAYSI Albuterol/Ipratropium (Albuterol/Iprat 2.5/0.5mg 3 Ml Ampul.Neb) 3 ml INHALE RQ4H [facility] Last Admin: 11/04/24 11:48 Dose: Not Given Documented By: CONSUELO Non-Admin Reason: discharged Apixaban (Apixaban 5 Mg Tablet) 5 mg PO BID [facility] Last Admin: 11/04/24 08:44 Dose: 5 mg Documented By: BOB Atorvastatin Calcium (Atorvastatin Calcium 10 Mg Tablet) 10 mg PO DAILY [facility] Last Admin: 11/04/24 08:58 Dose: Not Given Documented By: BOB Non-Admin Reason: Patient Refused Calcium Carbonate (Calcium Carbonate 750 Mg Tab.Chew) 750 mg PO Q4H PRN PRN Reason: Heartburn Cyanocobalamin (Cyanocobalamin (Vitamin B-12) 100 Mcg Tablet) 100 mcg PO DAILY [facility] Last Admin: 11/04/24 08:44 Dose: 100 mcg Documented By: BOB Famotidine (Famotidine 20 Mg Tablet) 20 mg PO BID [facility] Last Admin: 11/04/24 08:44 Dose: 20 mg Documented By: BOB Flecainide Acetate (Flecainide Acetate 50 Mg Tablet) 100 mg PO BID [facility] Last Admin: 11/04/24 08:56 Dose: 100 mg Documented By: BOB Fluticasone/Vilanterol (Fluticasone/Vilanterol 200/25 Blst.W.Dev) 1 puff INHALE DAILY [facility] Last Admin: 11/04/24 08:20 Dose: Not Given Documented By: CONSUELO Non-Admin Reason: Patient Refused Folic Acid (Folic Acid 1 Mg Tablet) 1 mg PO DAILY [facility] Last Admin: 11/04/24 08:44 Dose: 1 mg Documented By: BOB Lactic Acid (Ammonium Lactate 12 % Cream 140 Gm Tube) 1 appl TOPICAL DAILY PRN; Protocol PRN Reason: Dry Skin Lorazepam (Lorazepam 0.5 Mg Tablet) 0.5 mg PO BID PRN PRN Reason: anxiety Last Admin: 11/03/24 20:41 Dose: 0.5 mg Documented By: CHEYENNE Magnesium Hydroxide (Milk Of Magnesia 30 Ml Oral.Susp) 30 ml PO DAILY PRN PRN Reason: Constipation Last Admin: 11/03/24 08:31 Dose: 30 ml Documented By: AVELINO Magnesium Oxide (Magnesium [facility]ide 400 Mg Tablet) [facility] Last Admin: 11/04/24 08:44 Dose: 400 mg Documented By: BOB Melatonin (Melatonin 3 Mg Tablet) 6 mg PO BEDTIME PRN PRN Reason: Insomnia Last Admin: 11/02/24 20:16 Dose: 6 mg Documented By: ZOILA Metoprolol Succinate (Metoprolol Succinate Er 100 Mg Tab.Er.24h) 100 mg PO DAILY [facility]; Protocol Last Admin: 11/04/24 08:57 Dose: Not Given Documented By: BOB Non-Admin Reason: Physician Held Med Naloxone HCl (Naloxone Hcl 0.4 Mg/Ml Vial) 0.04 mg IVPUSH Q5M PRN PRN Reason: Excessive sedation or RR < 8 Polyethylene Glycol (Polyethylene Glycol 3350 17 Gm Powd.Pack) 17 gm PO DAILY PRN PRN Reason: Constipation Last Admin: 10/31/24 07:52 Dose: 17 gm Documented By: DAYSI Potassium Chloride (Potassium Chloride Er 20 Meq Tab.Er.Prt) 20 meq PO DAILY [facility] Last Admin: 11/04/24 08:58 Dose: Not Given Documented By: BOB Non-Admin Reason: Patient Refused Prednisone (Prednisone 20 Mg Tablet) 20 mg PO DAILY [facility] Last Admin: 11/04/24 08:44 Dose: 20 mg Documented By: BOB Senna (Sennosides 8.6 Mg Tablet) 17.2 mg PO BEDTIME [facility] Last Admin: 11/03/24 20:38 Dose: Not Given Documented By: CHEYENNE Non-Admin Reason: Patient Refused Sodium Chloride (0.9 % Sodium Chloride Flush 3 Ml Syringe) 3 ml IVFLUSH QSHIFT [facility] Last Admin: 11/04/24 08:57 Dose: Not Given Documented By: BOB Non-Admin Reason: patient does not have an IV Spironolactone (Spironolactone 25 Mg Tablet) 25 mg PO DAILY [facility]; Protocol Last Admin: 11/01/24 09:01 Dose: 25 mg Documented By: DAYSI Tiotropium Pinon (Tiotropium Pinon 2.5 Mcg 1 Puff/2.5 Mcg Mist.Inhal) 2 puff INHALE DAILY [facility] Last Admin: 11/04/24 08:21 Dose: Not Given Documented By: CONSUELO Non-Admin Reason: Patient Refused Torsemide (Torsemide 20 Mg Tablet) 40 mg PO BID [facility]; Protocol Last Admin: 11/04/24 09:07 Dose: 40 mg Documented By: BOB Vitamin D (Cholecalciferol (Vitamin D3) 25 Mcg Tablet) 50 mcg PO DAILY [facility] Last Admin: 11/04/24 08:44 Dose: 50 mcg Documented By: BOB Labs 10/31/24 06:00 11/01/24 08:23 Assessment and Plan (1) COPD exacerbation: Status: Acute (2) Atrial fibrillation status post cardioversion: Status: Acute (3) Symptomatic bradycardia: Status: Acute Plan 79-year-old female with past medical history of COPD/emphysema, atrial fibrillation on Eliquis,HFpEF on torsemide, recent weight loss with dysphagia, chronic GERD, insomnia, osteoarthritis, non STEMI, vitamin-D deficiency being admitted under observation for CHF and COPD exacerbation with near syncopal episode and generalized weakness. # Lightheadedness, numbness, weakness could be related to bradycardia post cardioversion Hold Flecainide and Metoprolol for now Keep on Tele Cardiology input appreciated, we can hold off on anymore flecainide today. She did not get her morning dose of beta-blockers today either. We can hold off. We can monitor heart rate tomorrow and give possibly smaller doses of the above. Adjust DISCHARGE medications as they were already finalized prior to discharging her # Near-syncope complicated with fall/ Left foot pain. Found to be in symptomatic Afib w RvR complicated with symptomatic heart failure. treated with Torsemide and Metoprolol with fair response but continued to complain of dyspnea and dizziness. Evaluated by cardiology team who decided to do Cardioversion which was done successfully on 11/02/2024 and patient maintained in sinus rhythm with addition of Flecainide (on hold tonight). Carotid Dopplers-Normal carotid velocities, no significant stenosis (0-49% stenosis) # Orthostatics rechecked and negative. # She was able to participate with PT who recommended STR. Foot xray:Dorsal soft tissue swelling. No acute underlying bony abnormali Tx: ice p.r.n., elevation, monitor for increasing swelling or discomfortty. # Treated for COPD exacerbation with nebulizers and steroids with good response. she is on chronic O2 supplement. # hypokalemia:repleted and resolved. # Generalized weakness/ BMI of 19.7 with intermittent loss of appetit/ dysphagia with GERD. speech therapy eval -diet updated. Patient is a DNR DNI and MOLST . Patient is agreeable to noninvasive ventilation at this time. ongooing need for stay: symptomatic bradycardia will need monitoring and medications adjustment by cardiology Quality Stroke Does the patient have a stroke diagnosis?: No Reason for No Anti-thrombotic by Day Two: N/A - Med Ordered VTE Prior VTE?: No VTE Risk Level:: Medical - moderate - high VTE Device Contraindication: N/A - Device Ordered VTE Drug Contraindication: N/A - Med Ordered
[2024-11-04] MEDS: LORazepam 0.5 MG TABLET PO (21:01)
[2024-11-05] MEDS: LORazepam 1 MG TABLET PO (01:40)
[2024-11-05 05:59] VITALS: BMI 20.5
[2024-11-05 07:44] LABS: MANUAL DIFF FLAG NO
[2024-11-05 07:50] LABS: Basophils Percent Auto 0.1 % (0-2); Eosinophils Percent Auto 0.1 % (0-4); Hematocrit 32.4 % (37.0-47.0); Hemoglobin 10.1 g/dl (12.0-16.0); Imm Gran Pct Auto 0.9 % (0.0-0.4); Lymphocytes Absolute Auto 1.4 X10*3/uL (1.2-4.9); Lymphocytes Percent Auto 11.9 % (20-40); Mean Corpuscular HGB Conc 31.2 g/dl (31.0-35.0); Mean Corpuscular Hemoglobin 25.7 pg (27.0-33.0); Mean Corpuscular Volume 82.4 fL (80.0-98.0); Mean Platelet Volume 10.8 fL (9.4-12.3); Monocytes Absolute Auto 1.4 X10*3/uL (0.1-1.2); Monocytes Percent Auto 11.8 % (2-11); NRBC Pct Auto 0.3 /100WBC (0.0-0.2); Neutrophils Absolute Auto 8.7 x10*3/uL (2.0-8.3); Neutrophils Percent Auto 75.2 % (45-73); Platelet Count 206 X10*3/uL (160-400); Red Blood Count 3.93 X10*6/uL (4.20-5.50); Red Cell Distribution Width 16.9 % (11.0-16.0); White Blood Count 11.6 X10*3/uL (4.8-10.8)
[2024-11-05] MEDS: Albuterol/Iprat 2.5/0.5MG 3 ML AMPUL.NEB INHALE ×2 (07:52→12:06)
[2024-11-05] MEDS: Fluticasone/Vilanterol 200/25 BLST.W.DEV 1 PUFF INHALE (07:53)
[2024-11-05] MEDS: Tiotropium Bromide 2.5 mcg 1 PUFF/2.5 MCG MIST.INHAL 2 PUFF INHALE (07:53)
[2024-11-05 08:00] VITALS: BP 121/55; PULSE 65; RESP 18; TEMP 36.7; O2SAT 96
[2024-11-05 08:03] VITALS: PULSE 65; RESP 18
[2024-11-05 08:06] LABS: Anion Gap 21 (12-20); Blood Urea Nitrogen 51 mg/dL (9-16); Calcium 9.2 mg/dL (8.4-10.2); Carbon Dioxide 29 mmol/L (22-29); Chloride 92 mmol/L (96-108); Creatinine Clr Calc Pharmacy 23.7; Estimated Glomerular Filt Rate 31; Glucose Random 92 mg/dL (60-115); Potassium 4.8 mmol/L (3.3-5.1); Sodium 137 mmol/L (135-145)
[2024-11-05] MEDS: Cholecalciferol (Vitamin D3) 25 MCG TABLET 50 MCG PO (09:18)
[2024-11-05] MEDS: Potassium Chloride ER 20 MEQ TAB.ER.PRT PO (09:19)
[2024-11-05] MEDS: Folic Acid 1 MG TABLET PO (09:19)
[2024-11-05] MEDS: Magnesium Oxide 400 MG TABLET PO (09:19)
[2024-11-05] MEDS: predniSONE 20 MG TABLET PO (09:19)
[2024-11-05] MEDS: Cyanocobalamin (Vitamin B-12) 100 MCG TABLET PO (09:19)
[2024-11-05] MEDS: Torsemide 20 MG TABLET 40 MG PO (09:19)
[2024-11-05] MEDS: Apixaban 5 MG TABLET PO (09:19)
[2024-11-05] MEDS: Famotidine 20 MG TABLET PO (09:19)
[2024-11-05] MEDS: Atorvastatin Calcium 10 MG TABLET PO (09:19)
[2024-11-05 10:09] VITALS: PULSE 65
--- NOTE | 2024-11-05 10:21 | PM.PNCARD ---
Subjective Subjective Date of Service: 11/05/24 Interval history: she states that she is feeling much better. Shortness of breath is improved and overall improving. Review of Systems Review of Systems Yes all other systems are reviewed and are negative Constitutional: Reports as per HPI and Reports no additional constitutional complaints Eyes: Reports as per HPI and Denies no additional eye complaints Denies system reviewed and no additional complaints, except as documented and Reports as per HPI Cardiovascular: Reports as per HPI, Reports no additional cardiovascular complaints, Denies acrocyanosis, Denies cool extremities, Denies chest pain, Denies leg edema, Denies lightheadedness, Denies palpitations and Denies dyspnea Respiratory: Reports as per HPI, Denies no additional respiratory complaints and Denies dyspnea Gastrointestinal: Reports as per HPI and Denies no additional gastrointestinal complaints Genitourinary: Reports as per HPI Musculoskeletal: Reports no additional musculoskeletal complaints and Reports as per HPI Skin/Breast: Reports system reviewed and no additional complaints, except as docu Reports system reviewed and no additional complaints, except as documented and Reports as per HPI Psychiatric: Reports no additional psychiatric complaints and Reports as per HPI Endocrine: Reports no additional endocrine complaints, Reports as per HPI and Denies palpitations Hematologic/Lymphatic: Reports no additional hematologic/lymphatic complaints and Reports as per HPI Allergic/Immunologic: Reports no additional allergic/immunologic complaints and Reports as per HPI Physical Exam Vital Signs: Last Vital Signs Temp 98.1 F 11/05/24 08:00 Pulse 65 11/05/24 10:09 Resp 18 11/05/24 08:03 BP 121/55 L 11/05/24 08:00 Pulse Ox 96 11/05/24 08:00 O2 Del Method Room Air 11/05/24 08:00 O2 Flow Rate 2 11/04/24 23:44 Oxygen Flow Rate 2 10/30/24 15:41 BMI result Body Mass Index 20.5 Const General: comfortable and no acute distress Orientation/consciousness: patient oriented x3 HEENT Other: Unremarkable Head: Yes normal to inspection Neck Neck: Yes normal visual inspection Chest Chest palpation & inspection: normal inspection of the chest Resp Auscultation: clear to auscultation bilaterally Cardio Palpation: normal PMI Heart sounds: S1 normal heart sound present, S2 normal heart sound present, no gallops, no murmurs and no rubs GI Palpation (GI): Soft to palpation Back/Spine/Pelvis Other: unremarkable Skin General skin exam: no rashes or lesions noted Neuro General: patient oriented x3 Extrem General: Yes normal to inspection Psych Mental Status: mental status grossly normal Objective Labs and Meds 11/05/24 07:06 11/05/24 07:06 Lab results: Laboratory Results - last 24 hr 11/05/24 07:06 WBC 11.6 H RBC 3.93 L Hgb 10.1 L Hct 32.4 L MCV 82.4 MCH 25.7 L MCHC 31.2 RDW 16.9 H Plt Count 206 MPV 10.8 Immature Gran % (Auto) 0.9 H Neut % (Auto) 75.2 H Lymph % (Auto) 11.9 L [place] % (Auto) 11.8 H Eos % (Auto) 0.1 Baso % (Auto) 0.1 Lymph # (Auto) 1.4 [place] # (Auto) 1.4 H Eos # (Auto) 0.0 Baso # (Auto) 0.0 Abs Immat Gran (auto) 0.10 H Absolute Neuts (auto) 8.7 H Absolute Nucleated RBC 0.030 H Nucleated RBC % (auto) 0.3 H Sodium 137 Potassium 4.8 D Chloride 92 L Carbon Dioxide 29 Anion Gap 21 H BUN 51 H Creatinine 1.62 H Estim Creat Clear Calc 23.7 Estimated GFR 31 Random Glucose 92 Calcium 9.2 Progress Note: A&P Assessment and plan (1) Atrial fibrillation with rapid ventricular response: Status: Acute (2) Cardiomyopathy: Status: Acute (3) CHF (congestive heart failure): Status: Acute (4) COPD (chronic obstructive pulmonary disease): Status: Acute Plan She underwent cardioversion on Saturday. 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 She initially got flecainide 50 mg dose. There were frequent PACs and hence we had increased the dose to 100 mg b.i.d.. She is also on beta-blockers. Yesterday, heart rate was in the 50s and she did not feel good. Some blurriness of vision, cold extremities extra. After that, both flecainide and beta-blockers were stopped completely. Today, she states she is feeling better. HR in 70s. Without above medications, high likelihood that she will go back into atrial fibrillation. Eventually, possibly just a small dose of beta-steve with anticoagulation as she otherwise gets symptomatic bradycardia. In the labs, it seems that the kidney function is gone up. We will need to hold off on nephrotoxic meds and may need to monitor another day. d/w . Time Spent With Patient Time: Total time managing care of this patient today ____ minutes. Progress Note: Quality Stroke Does the patient have a stroke diagnosis?: No Reason for No Anti-thrombotic by Day Two: N/A - Med Ordered Procedures Date of Service Date of Service: 11/05/24
[2024-11-05 12:00] VITALS: BP 130/36; PULSE 64; RESP 18; TEMP 36.1
[2024-11-05 12:10] VITALS: PULSE 65; RESP 18
--- NOTE | 2024-11-05 13:31 | P.DS_ITS ---
DS: Providers Provider Date of Service: 11/05/24 Date of admission: 10/31/24 08:45 Date of discharge: 11/05/24 Primary care physician: Parul Williamson MD Consults: 10/30/24 22:06 Consult to Cardiology Routine Consulting Provider: [facility] Reason for consultation: CHF exacerbation, near syncope Has provider been notified: No Consult to Pulmonology Routine Consulting Provider: [facility] Reason for consultation: COPD exacerbation, worsening progression of disease overall DS: Diagnosis Discharge Diagnosis (1) Atrial fibrillation with rapid ventricular response: Status: Acute (2) Cardiomyopathy: Status: Acute (3) CHF (congestive heart failure): Status: Acute (4) COPD (chronic obstructive pulmonary disease): Status: Acute DS: Summary Hospital Course Hospital Course: Admission note HPI Patient is an 79-year-old female with past medical history of COPD/emphysema, atrial fibrillation on Eliquis,HFpEF on torsemide, recent weight loss with dysphagia, chronic GERD, insomnia, osteoarthritis, non STEMI, vitamin- D deficiency was driven into the ED by her granddaughter status post an episode involving dizziness and weakness while standing at the bathroom sink where suddenly patient fell backwards and remembers falling on her right side and hitting her head on the wall but no loss of consciousness per patient. Patient lives alone and no one else was at home at the time of the event. Patient does not wear a emergency or lifeline device. Patient crawled from the bathroom to the location of her cell phone and called her daughter. Her daughter arrived and patient was able to get back to bed and as she went through the next few hours continued to feel weaker and worse overall with nonspecific symptoms. Patient denied any chest pain throughout all of this. Patient denies history of seizure or stroke. Patient was wearing her oxygen and is normally on 2 L at home. Neuro exam currently is reassuring. CT of the head negative for any acute findings. Patient is on Eliquis. CT of the cervical spine negative for acute fracture or dislocation. Patient was complaining of left foot pain after her fall and x-ray indicated dorsal soft tissue swelling but no acute fracture or dislocation. Ankle x-ray no acute bony abnormalities but does show mild lateral greater than medial soft tissue swelling. Patient is currently able to bear weight on the affected foot. Patient is using walker at this time. Chest x-ray indicates cardiomegaly, severe hyper aeration of lungs with increased interstitial markings throughout, but no evidence of pneumonia pneumothorax or pleural effusion. Patient was recently discharged from the hospital last Saturday for bilateral lower extremity edema and was changed from Lasix to torsemide. It was recommended per PT that patient attend short-term rehab but patient refused and preferred to do rehab at home. Patient has become more dependent on her walker over the last week due to generalized weakness. Patient also reports problems with swallowing both food and medications. In addition patient reports decrease in appetite and BMI today is 19.7. Patient being admitted for near syncopal event, exacerbation of CHF and COPD with no acute hypoxia or signs of sepsis. Patient has been contemplating assisted living but is overwhelmed with the idea that she has to sell her home and figure out how she is going to pay for the service. Hospital course The patient was admitted to the hospital for the followiong: Near-syncope complicated with fall/ Left foot pain. Found to be in symptomatic Afib w RvR complicated with symptomatic heart failure. treated with Torsemide and Metoprolol with fair response but continued to complain of dyspnea and dizziness. Evaluated by cardiology team who decided to do Cardioversion which was done successfully on 11/02/2024 and patient maintained in sinus rhythm with addition of Flecainide. Carotid Dopplers-Normal carotid velocities, no significant stenosis (0-49% stenosis) # Orthostatics rechecked and negative. # She was able to participate with PT who recommended STR. Foot xray:Dorsal soft tissue swelling. No acute underlying bony abnormali Tx: ice p.r.n., elevation, monitor for increasing swelling or discomfortty. # Treated for COPD exacerbation with nebulizers and steroids with good response. she is on chronic O2 supplement. # hypokalemia:repleted and resolved. # Generalized weakness/ BMI of 19.7 with intermittent loss of appetit/ dysphagia with GERD. speech therapy eval -diet updated. Discharge plan flecainide and metoprolol held at this time until seen by Cardiology as an outpatient Follow with cardiology as outpatient Continue Prednisone daily Time Attestation Discharge Coordination Time (in mins): 35 Quality: Safe Use of Opioids Does Pt have an Active Cancer Diagnosis on the Problem List?: No Quality: Stroke Does the patient have a stroke diagnosis?: No Physical Exam Vital Signs: Vital Signs: Last Vital Signs Temp 97.0 F 11/05/24 12:00 Pulse 65 11/05/24 12:10 Resp 18 11/05/24 12:10 BP 130/36 L 11/05/24 12:00 Pulse Ox 96 11/05/24 08:00 O2 Del Method Nasal Cannula 11/05/24 12:00 O2 Flow Rate 2 11/05/24 12:00 Oxygen Flow Rate 2 10/30/24 15:41 BMI result Body Mass Index 20.5 Const: Other: awake alert no acute distress Resp: Other: clear to auscultation bilaterally no rales rhonchi or wheezes Cardio: Other: no S4; positive S1-S2; no S3 murmurs rubs or gallops GI: Other: soft nontender nondistended normoactive bowel sounds Extrem: Other: no edema bilaterally DS: Data Data Completed and Pending Labs on day of discharge: Laboratory Results - last 24 hr 11/05/24 07:06 WBC 11.6 H RBC 3.93 L Hgb 10.1 L Hct 32.4 L MCV 82.4 MCH 25.7 L MCHC 31.2 RDW 16.9 H Plt Count 206 MPV 10.8 Immature Gran % (Auto) 0.9 H Neut % (Auto) 75.2 H Lymph % (Auto) 11.9 L [place] % (Auto) 11.8 H Eos % (Auto) 0.1 Baso % (Auto) 0.1 Lymph # (Auto) 1.4 [place] # (Auto) 1.4 H Eos # (Auto) 0.0 Baso # (Auto) 0.0 Abs Immat Gran (auto) 0.10 H Absolute Neuts (auto) 8.7 H Absolute Nucleated RBC 0.030 H Nucleated RBC % (auto) 0.3 H Sodium 137 Potassium 4.8 D Chloride 92 L Carbon Dioxide 29 Anion Gap 21 H BUN 51 H Creatinine 1.62 H Estim Creat Clear Calc 23.7 Estimated GFR 31 Random Glucose 92 Calcium 9.2 Discharge Plan Discharge Anticipated Discharge Date/Time: 11/04/24 10:46 Patient Disposition: Xfer SNF Discharge Diagnosis: Atrial fibrillation Referrals: [facility] [Outside] - 1 Week Parul Cartagena MD [Primary Care Provider] - 1 Week Discharge Medications: New prednisone 20 mg tablet 20 mg PO DAILY Qty: 3 0RF Continued Eliquis 5 mg tablet 5 mg PO BID 90 Days Qty: 180 1RF Spiriva Respimat 2.5 mcg/actuation mist 2 puff inhalation DAILY 30 Days Qty: 4 5RF Rx Instructions: cannot use SPIRIVS HANDI_HALOR cholecalciferol (vitamin D3) 50 mcg (2,000 unit) capsule 50 mcg PO DAILY 90 Days Qty: 90 1RF cimetidine 400 mg tablet 400 mg PO BID 30 Days Qty: 60 0RF Rx Instructions: administer with meals levalbuterol tartrate 45 mcg/actuation HFA aerosol inhaler 2 puff inhalation Q4-6H PRN (Reason: shortness of breath) 30 Days Qty: 15 3RF fluticasone furoate-vilanterol [Breo Ellipta] 200-25 mcg/dose blister with device 1 inh inhalation DAILY Qty: 60 2RF pantoprazole 40 mg tablet,delayed release (DR/EC) 40 mg PO DAILY@0630 90 Days Qty: 90 1RF cyanocobalamin (vitamin B-12) [Vitamin B-12] 100 mcg Tablet 100 mcg PO DAILY folic acid 800 mcg Tablet 0.8 mg PO DAILY torsemide 20 mg Tablet 40 mg PO BID Qty: 360 0RF Protocol: Hold for SBP< HOLD for SBP < : 90 magnesium oxide 400 mg (241.3 mg magnesium) Tablet 400 mg PO BIDPC Qty: 180 0RF potassium chloride 20 mEq/15 mL liquid 20 meq PO DAILY Qty: 1500 0RF ammonium lactate 12 % cream 1 appl topical DAILY PRN (Reason: Dry Skin) lorazepam 0.5 mg tablet 0.5 mg PO BID PRN (Reason: anxiety) rosuvastatin 5 mg tablet 2.5 mg PO BEDTIME gabapentin 100 mg capsule 100 mg PO TID PRN (Reason: Pain) trolamine salicylate [Aspercreme] 10 % Cream 1 appl TOPICAL DAILY PRN (Reason: Pain) (DME) compr.stocking,knee,long,small Misc See Rx Instructions .Route Qty: 2 1RF Rx Instructions: As directed Discontinued metoprolol succinate 100 mg tablet extended release 24 hr 100 mg PO DAILY 90 Days Qty: 90 1RF Discharge Orders: Discharge Order (Routine); Ordered 11/05/24 Ordered By: Christian Combs Diet: Low salt diet Activity on Discharge: As tolerated Stand Alone Forms: Patient Portal Discharge page Print Language: Mongolian Care Plan Goals: flecainide and metoprolol has been DC until you follow up with your [place] attorney Follow with cardiology as outpatient Continue Prednisone daily Health Concerns: Atrial fibrillation COPD exacerbation Plan of Treatment: Cardioversion Flecainide Prednisone Assessment: as above
--- NOTE | 2024-11-05 14:02 | MHC.CM.PN ---
Pt was medically cleared to go to [facility] at [facility], she went via family.
== END 2024-11-05 14:22 | disposition skilled nursing facility (03) | DRG 308 ==
LOC: HO.ED 20:09 → HO.EDOVER 21:07 → HO.IMC 21:15
PROVIDERS: Internal Medicine; Nurse Practitioner Family; Physician Assistant Medical; Student in an Organized Health Care Education/Training Program; Admitting Provider Student in an Organized Health Care Education/Training Program; Emergency Provider Emergency Medicine; PCP Internal Medicine; Visit Provider Hospitalist
PROC: 5A2204Z Restoration of Cardiac Rhythm, Single (ICD-10-PCS; principal; 2024-11-02 15:30)
DX: I48.19 Other persistent atrial fibrillation (principal); I50.23 Acute on chronic systolic (congestive) heart failure; I11.0 Hypertensive heart disease with heart failure; I08.0 Rheumatic disorders of both mitral and aortic valves; J43.9 Emphysema, unspecified; I27.20 Pulmonary hypertension, unspecified; R13.10 Dysphagia, unspecified; Z66 Do not resuscitate; E87.6 Hypokalemia; K21.9 Gastro-esophageal reflux disease without esophagitis; R00.1 Bradycardia, unspecified; Z20.822 Contact with and (suspected) exposure to COVID-19; Z87.891 Personal history of nicotine dependence; Z99.81 Dependence on supplemental oxygen; Z79.01 Long term (current) use of anticoagulants; Z79.51 Long term (current) use of inhaled steroids; Z79.899 Other long term (current) drug therapy
CPT/HCPCS: 0241U; 36415; 70450; 71046; 72125; 73610; 73630; 80048; 80053; 81001; 81003; 82803; 83735; 83880; 84443; 84484; 85025; 92610; 92960; 93005; 93880; 94640; 97116; 97162; 99285; J1938; J2704; J7120

== ENCOUNTER → 2024-10-30 15:43 | Outpatient (BNV) | payer MEDICARE, SELFPAY | PROVIDERS: PCP Internal Medicine; Visit Provider Radiology Diagnostic Radiology | DX: S09.90XA Unspecified injury of head, initial encounter (principal); I51.7 Cardiomegaly; J44.9 Chronic obstructive pulmonary disease, unspecified; M25.572 Pain in left ankle and joints of left foot; W19.XXXA Unspecified fall, initial encounter; R22.42 Localized swelling, mass and lump, left lower limb | CPT/HCPCS: 70450; 71046; 72125; 73610; 73630 ==

== ENCOUNTER → 2024-10-30 15:43 | Outpatient (BNV) | payer MEDICARE, SELFPAY | PROVIDERS: Admitting Provider Student in an Organized Health Care Education/Training Program; Emergency Provider Emergency Medicine; PCP Internal Medicine; Visit Provider Internal Medicine Cardiovascular Disease | DX: I48.91 Unspecified atrial fibrillation (principal) | CPT/HCPCS: 93010 ==

== ENCOUNTER → 2024-10-30 20:31 | Outpatient (BNV) | payer MEDICARE, SELFPAY | PROVIDERS: Admitting Provider Student in an Organized Health Care Education/Training Program; Emergency Provider Emergency Medicine; PCP Internal Medicine; Visit Provider Nurse Practitioner Family | DX: I48.91 Unspecified atrial fibrillation (principal); I42.9 Cardiomyopathy, unspecified; I50.9 Heart failure, unspecified; J44.9 Chronic obstructive pulmonary disease, unspecified | CPT/HCPCS: 99222; 99231; 99232; 99239 ==

== ENCOUNTER → 2024-10-31 07:00 | Outpatient (BNV) | payer MEDICARE, SELFPAY | PROVIDERS: Admitting Provider Student in an Organized Health Care Education/Training Program; Emergency Provider Emergency Medicine; PCP Internal Medicine; Visit Provider Radiology Diagnostic Radiology | DX: R55 Syncope and collapse (principal) | CPT/HCPCS: 93880 ==

== ENCOUNTER → 2024-10-31 08:45 | Outpatient (BNV) | payer MEDICARE, SELFPAY | PROVIDERS: Admitting Provider Student in an Organized Health Care Education/Training Program; Emergency Provider Emergency Medicine; PCP Internal Medicine; Visit Provider Internal Medicine Cardiovascular Disease | DX: I50.9 Heart failure, unspecified (principal); I48.19 Other persistent atrial fibrillation | CPT/HCPCS: 99223 ==

== ENCOUNTER → 2024-10-31 08:45 | Outpatient (BNV) | payer MEDICARE, SELFPAY | PROVIDERS: Admitting Provider Student in an Organized Health Care Education/Training Program; Emergency Provider Emergency Medicine; PCP Internal Medicine; Visit Provider Internal Medicine Pulmonary Disease | DX: J44.1 Chronic obstructive pulmonary disease with (acute) exacerbation (principal); Z99.81 Dependence on supplemental oxygen | CPT/HCPCS: 99222 ==

== ENCOUNTER 2024-11-27 11:18 | Outpatient (AMB) | payer MEDICARE, SELFPAY ==
[2024-11-27 11:27] VITALS: BP 104/60; PULSE 76; O2SAT 98; BMI 18.5
--- NOTE | 2024-11-27 11:27 | MHC.PC.OV ---
Vital Signs 11/27/24 11:27 Height 5 ft 4 in Weight 108 lb BMI 18.5 BP 104/60 Blood Pressure Location Lt brachial Position Sitting Pulse 76 Pulse Source Pulse Oximeter Pulse Oximetry (%) 98 Oxygen Delivery Method Nasal Cannula Oxygen Flow Rate 2 Intake Visit Reasons: Anna Cisneros 11/19 Core Piler Required: No Accompanied by: Self / Same As Patient Allergies Sulfa (Sulfonamide Antibiotics) Allergy (Intermediate, Verified 11/27/24 11:28) nausea, vomiting Medication List - Last Reconciled 11/27/24 by Ally Robles NP ammonium lactate 12% 1 appl topical DAILY PRN apixaban (Eliquis) 5 mg PO BID 90 days cholecalciferol (vitamin D3) 50 mcg PO DAILY 90 days cimetidine 400 mg PO BID 30 days compr.stocking,knee,long,small As directed cyanocobalamin (vitamin B-12) (Vitamin B-12) 100 mcg PO DAILY fluticasone furoate-vilanterol 200-25 mcg/dose (Breo Ellipta) 1 inh inhalation DAILY folic acid 0.8 mg PO DAILY gabapentin 100 mg PO TID PRN levalbuterol tartrate 45 mcg/actuation 2 puffs inhalation Q4-6H PRN 30 days lorazepam 0.5 mg PO BID PRN magnesium oxide 400 mg PO BIDPC pantoprazole 40 mg PO DAILY@0630 90 days potassium chloride 20 mEq (15 mL) PO DAILY rosuvastatin 2.5 mg PO BEDTIME tiotropium bromide 2.5 mcg/actuation (Spiriva Respimat) 2 puffs inhalation DAILY 30 days torsemide 40 mg See Protocol PO BID trolamine salicylate 10% (Aspercreme) 1 appl topical DAILY PRN Tobacco use date assessed: 11/27/24 Fall risk assessment: 2 + Falls in past year Last assessed Fall Risk: 11/27/24 Dental Screening Dental Screen Date: 11/27/24 Did you have a dental visit in the last 12 months?: No Did you have a dental problem in the last 6 months where you did not have access to dental care?: No Was dental information given to patient?: No HPI HPI Comments History of Present Illness Details 79 y/o Female patient who presents to the clinic for SNF discharge Follow up. Pmhx significant for COPD/emphysema, atrial fibrillation on Eliquis,HFpEF on torsemide, recent weight loss with dysphagia, chronic GERD, insomnia, osteoarthritis, non STEMI, and vitamin-D deficiency. She was admitted at [facility] on 11/05 - 11/19 for Physical and occupational therapies plus medical management. Prior to SNF, Pt was admitted at [facility] on 10/31- 11/05 for evaluation and treatment of Symptomatic Afib with RvR complicated with symptomatic heart failure. She did have Cardioversion done 11/12 with success and patient maintained in sinus rhythm with addition of Flecainide. Was also treated for COPD exacerbation. She is on chronic O2 supplement (2L NC). Cardiology F/u appointment scheduled for 11/30/2024. Pulmonology appointment scheduled for 12/02/2024. Metoprolol and Flecamide were discontinued. [facility] Medical History Respiratory failure with hypoxia Hypertension CHF (congestive heart failure) PAF (paroxysmal atrial fibrillation) Congestive heart failure Atrial fibrillation with rapid ventricular response Congestive heart failure Acute hypoxemic respiratory failure Encounter for cardioversion procedure Atrial fibrillation with RVR Acute exacerbation of congestive heart failure Acute on chronic hypoxic respiratory failure Acute HFrEF (heart failure with reduced ejection fraction) Chronic lung disease Skin lesion Dyslipidemia Cough due to DAISY inhibitor Neck pain GERD (gastroesophageal reflux disease) Aortic regurgitation Right hand pain Leg edema COPD (chronic obstructive pulmonary disease) Allergic rhinitis Anxiety Surgical History Carpal tunnel syndrome, right History of bilateral cataract extraction History of partial hysterectomy Family History Father Medical history unknown Mother Medical history unknown Social History Household Members: None Housing: House Are you a primary behavioral health care manager to a significant other at home: No Do you presently have visiting nurse or other home services: No Alcohol intake: current Alcohol intake frequency: a few times a week Alcohol type: other Comment: 1:[address] Patient Tobacco Use Status: Former Tobacco user Tobacco use type: Cigarette e-Cigarette/Vaping Use: Never Used Second Hand Smoke Exposure: No Advance Directives Date on File: 08/25/20 service: No Current occupational status: retired Cognitive needs: No Hearing needs: No Vision needs: No Questionnaire PHQ-9 Over the last 2 weeks, how often have you been bothered by any of the following problems? 1. Little interest or pleasure in doing things: not at all 2. Feeling down, depressed, or hopeless: not at all 3. Trouble falling or staying asleep, or sleeping too much: not at all 4. Feeling tired or having little energy: not at all 5. Poor appetite or overeating: not at all 6. Feeling bad about yourself - or that you are a failure or have let yourself or your family down: not at all 7. Trouble concentrating on things, such as reading the newspaper or watching television: not at all 8. Moving or speaking so slowly that other people could have noticed. Or the opposite - being so fidgety or restless that you have been moving around a lot more than usual: not at all 9. Thoughts that you would be better off or of hurting yourself in some way: not at all Total score: 0 Depression Screening Interpretation: Negative Depression Screening Done: Yes 66799 - PHQ-9 Billing: Yes Source: Developed by Drs. Mick Kovacs, Yasmeen Rey, Louie Warren and colleagues, with an educational louis from [employer]. Thrive Questionnaire Date Thrive assessed: 11/27/24 I am a: Patient What is your living situation today?: I have a steady place to live Within the past 12 months, did the food you bought not last and you didn't have the money to get more?: Never true Within the past 12 months, did you worry whether your food would run out before you got money to buy more?: Never true Do you have trouble paying for medicines?: No Do you have trouble getting transportation to medical appointments?: I choose not to answer this question Do you have trouble paying your heating and electricity bill?: I choose not to answer this question Do you have trouble taking care of your child, family member or friend?: I choose not to answer this question Do you have trouble with day-to-day activities such as bathing, preparing meals, shopping, managing finances, etc.?: I choose not to answer this question Are you currently unemployed and looking for a job?: I choose not to answer this question Are you interested in more education?: I choose not to answer this question Please select the resources that you would like help with: None Currently or been in a relationship where the following occur: I choose not to answer THRIVE Score: 0 AUDIT C Alcohol Use Questionnaire (AUDIT-C) 1. How often do you have a drink containing alcohol?: Never 3. How often do you have six or more drinks on one occasion?: Never Total Score: 0 Score Reviewed/Action Taken: No CHRISTIAN-7 AMB Questionnaire CHRISTIAN-7 Date CHRISTIAN - 7 assessed: 11/27/24 Feeling nervous, anxious, or on edge: 0 = Not at all Not being able to stop or control worryin = Not at all Worrying too much about different things: 0 = Not at all Trouble relaxin = Not at all Being so restless that it is hard to sit still: 0 = Not at all Becoming easily annoyed or irritable: 0 = Not at all Feeling afraid as if something awful might happen: 0 = Not at all Total CHRISTIAN-7 score (0-4 normal; 5-9 mild; 10-14 moderate; 15-21 severe): 0 Source: Developed by Drs. Mick Kovacs, Yasmeen Rey, Louie Warren and colleagues, with an educational louis from [employer]. Review of Systems Const All systems reviewed & are unremarkable except as noted in HPI and below Physical exam (Primary Care) Vital Signs: Last Vital Signs Pulse 76 11/27/24 11:27 BP 104/60 11/27/24 11:27 Pulse Ox 98 11/27/24 11:27 Oxygen Delivery Method Nasal Cannula 11/27/24 11:27 Oxygen Flow Rate 2 11/27/24 11:27 BMI result Body Mass Index 18.5 Tobacco/Smoking Status: Tobacco use Status Tobacco use date assessed 11/27/24 11/27/24 11:30 Patient Tobacco Use Status Former Tobacco user 11/27/24 11:30 Tobacco use type Cigarette 11/27/24 11:30 e-Cigarette/Vaping Use Never Used 11/27/24 11:30 PHQ-9: PHQ-9 Score PHQ-9: Total score 0 11/27/24 11:42 Depression Screening Interpretation: Negative Thrive Assessment: Date of Thrive Assessment Date Thrive assessed 11/27/24 11/27/24 11:30 Currently or been in a relationship where the following occur: I choose not to answer Const Other: Frail looking, no acute distress. General: comfortable and no acute distress Nutritional Appearance: underweight Orientation/consciousness: patient oriented x3 Resp Effort & Inspection: normal respiratory effort Auscultation: diminished lung sounds diffuse Cardio Heart sounds: S1 normal heart sound present and S2 normal heart sound present Neuro General: patient oriented x3 Coding Level of Care Code Est Pt Level 4 (09702) Diagnoses Atrial fibrillation status post cardioversion I48.91 Acute on chronic diastolic congestive heart failure I50.33 Heart failure chronicity: acute on chronic Heart failure type: diastolic Acute on chronic respiratory failure with hypoxia J96.21 Chronicity: acute on chronic Additional Codes PHQ-9 - 76566 - PHQ-9 Billing: Yes ([id number]) Time Spent (min) 20 Assessment & Plan Assessment & Plan (1) Atrial fibrillation status post cardioversion: Code(s): I48.91 - Unspecified atrial fibrillation Category: Medical Plan: Stable, Managed by Cardiology. F/U with them as scheduled. (2) Congestive heart failure: Code(s): I50.9 - Heart failure, unspecified Category: Medical Qualifiers: Heart failure chronicity: acute on chronic Heart failure type: diastolic Qualified Code(s): I50.33 - Acute on chronic diastolic (congestive) heart failure Plan: Stable, Managed by Cardiology. F/U with them as scheduled. (3) Respiratory failure with hypoxia: Comment: PATIENT HAS HAD HYPOXEMIC RESPIRATORY FAILURE AND DOES NEED OXYGEN SUPPLEMENTATION. SHE HAS A VERY LIGHTWEIGHT PORTABLE POC. Code(s): J96.91 - Respiratory failure, unspecified with hypoxia Category: Medical Qualifiers: Chronicity: acute on chronic Qualified Code(s): J96.21 - Acute and chronic respiratory failure with hypoxia Plan: Stable, Managed by Cardiology. F/U with them as scheduled.
--- OUTSIDE RECORDS SUMMARY | 2024-11-27 12:12 | XMS_ITS | Encounter Summary ---
Author Organization [employer] Address [address] [place] [address] Care Team Providers Care Application Support Engineer Name Role Phone Louis Velazco MD Primary Care Provider [phone] Encounter Details Date Type Department Care Team (Late st Contact Info) Description 11/06/2024 Lab Requisition [facility] - Main Lab [address] [facility] [place] [address] Louis Velazco MD [address] [place] [phone] Acute systolic (congestive) heart failure (CMS/HCC V24, CMS/HCC V28); Chronic obstructive pulmonary disease with (acute) exacerbation (CMS/HCC V24, CMS/HCC V28) Social History Tobacco Use Types Packs/Day Years Used Date Smoking Tobacco: Never Assessed Comments Unknown Sex and Gender Information Value Date Recorded Sex Assigned at Not on file Legal Sex Female 9:58 AM EDT Gender Identity Not on file Sexual Orientation Not on file documented as of this encounter Plan of Treatment Not on file documented as of this encounter Procedures Procedure Name Priority Date/Time Associated Diagnosis Comments COMPLETE BLOOD COUNT Routine 11/06/2024 5:13 AM EDT Acute systolic (congestive) heart failure (CMS/HCC V24, CMS/HCC V28) Chronic obstructive pulmonary disease with (acute) exacerbation (CMS/HCC V24, CMS/HCC V28) COMPREHENSIVE METABOLIC PANEL Routine 11/06/2024 5:13 AM EDT Acute systolic (congestive) heart failure (CMS/HCC V24, CMS/HCC V28) Chronic obstructive pulmonary disease with (acute) exacerbation (CMS/HCC V24, CMS/HCC V28) documented in this encounter Results * (ABNORMAL) Comprehensive metabolic panel (11/06/2024 5:13 AM EDT) Sodium 135 133 - 145 mmol/L LAB CHEMISTRY METHOD 11/06/2024 11:54 AM [facility] Potassium 3.6 3.5 - 5.5 mmol/L LAB CHEMISTRY METHOD 11/06/2024 11:54 AM [facility] Chloride 94(L) 96 - 110 mmol/L LAB CHEMISTRY METHOD 11/06/2024 11:54 AM [facility] CO2 32 21 - 32 mmol/L LAB CHEMISTRY METHOD 11/06/2024 11:54 AM [facility] Anion Gap 9 3 - 11 LAB CHEMISTRY METHOD 11/06/2024 11:54 AM [facility] Glucose 95 70 - 100 mg/dL LAB CHEMISTRY METHOD 11/06/2024 11:54 AM [facility] BUN 43(H) 5 - 25 mg/dL LAB CHEMISTRY METHOD 11/06/2024 11:54 AM [facility] Creatinine 1.09 0.50 - 1.10 mg/dL LAB CHEMISTRY METHOD 11/06/2024 11:54 AM [facility] eGFR 51(L) >=60 mL/min/1. 73m2 LAB CHEMISTRY METHOD 11/06/2024 11:54 AM [facility] Comment:Calculation based on the Chronic Kidney Disease Epidemiology Collaboration (CKD-EPI) equation refit without adjustment for race. BUN/Creatinine Ratio 39.4 LAB CHEMISTRY METHOD 11/06/2024 11:54 AM [facility] Calcium 8.8 8.5 - 10.5 mg/dL LAB CHEMISTRY METHOD 11/06/2024 11:54 AM [facility] AST (SGOT) 301(H) 10 - 42 unit/L LAB CHEMISTRY METHOD 11/06/2024 11:54 AM [facility] Comment:Results verified by repeat testing ALT (SGPT) 348(H) 10 - 60 unit/L LAB CHEMISTRY METHOD 11/06/2024 11:54 AM T [facility] Comment:Results verified by repeat testing Alkaline Phosphatase 170(H) 42 - 121 unit/L LAB CHEMISTRY METHOD 11/06/2024 11:54 AM [facility] Total Protein 5.8(L) 6.0 - 8.0 g/dL LAB CHEMISTRY METHOD 11/06/2024 11:54 AM [facility] Albumin 3.5 3.2 - 5.0 g/dL LAB CHEMISTRY METHOD 11/06/2024 11:54 AM [facility] Total Bilirubin 1.1 0.0 - 1.4 mg/dL LAB CHEMISTRY METHOD 11/06/2024 11:54 AM [facility] Blood Venous blood specimen / Unknown Venipuncture / Unknown 11/06/2024 5:13 AM EDT 11/06/2024 10:04 AM EDT us Louis Velazco MD LAB BLOOD ORDERABLES Final Resu lt [facility] [address] [place] [address], * (ABNORMAL) Complete blood count (11/06/2024 5:13 AM EDT) WBC 12.7(H) 4.8 - 10.8 K/[facility] LAB HEMETOLOGY METHOD 11/06/2024 10:49 AM EDT [facility] RBC 3.60(L) 3.80 - 4.80 M/[facility] LAB HEMETOLOGY METHOD 11/06/2024 10:49 AM EDT [facility] Hemoglobin 9.2(L) 11.5 - 16.0 g/dL LAB HEMETOLOGY METHOD 11/06/2024 10:49 AM EDT [facility] Hematocrit 30.9(L) 35.0 - 47.0 % LAB HEMETOLOGY METHOD 11/06/2024 10:49 AM EDT [facility] MCV 84.9 79.0 - 98.0 FL LAB HEMETOLOGY METHOD 11/06/2024 10:49 AM EDT [facility] MCH 25.3(L) 27.0 - 32.0 pcg LAB HEMETOLOGY METHOD 11/06/2024 10:49 AM EDT [facility] MCHC 29.8(L) 32.0 - 37.0 g/dL LAB HEMETOLOGY METHOD 11/06/2024 10:49 AM EDT [facility] RDW 16.9(H) 11.0 - 15.0 % LAB HEMETOLOGY METHOD 11/06/2024 10:49 AM EDT [facility] Platelets 202 130 - 400 K/mcL LAB HEMETOLOGY METHOD 11/06/2024 10:49 AM EDT [facility] MPV 10.6 7.0 - 11.0 FL LAB HEMETOLOGY METHOD 11/06/2024 10:49 AM EDT [facility] NRBC 0.4 <1.0 % LAB HEMETOLOGY METHOD 11/06/2024 10:49 AM [facility] NRBC Absolute 0.05 <0.10 K/mcL LAB HEMETOLOGY METHOD 11/06/2024 10:49 AM EDT [facility] Blood Venous blood specimen / Unknown Venipuncture / Unknown 11/06/2024 5:13 AM EDT 11/06/2024 10:04 AM EDT us Louis Velazco MD LAB BLOOD ORDERABLES Final Resu lt [facility] [address] [place] [address], documented in this encounter Visit Diagnoses Diagnosis Acute systolic (congestive) heart failure ([facility] V24, [facility] V28) Chronic obstructive pulmonary disease with (acute) exacerbation ([facility] V24, [facility] V28) documented in this encounter Care Teams Application Support Engineer Relationship Specialty Start Date End Date Louis Velazco MD [address] [place] [address] PCP - General Internal Medicine 11/06/24 documented as of this encounter
== END 2024-11-27 12:15 | disposition home or self-care (01) ==
LOC: HO.HMCH 11:19
PROVIDERS: PCP Internal Medicine; Visit Provider Nurse Practitioner Family
DX: I48.91 Unspecified atrial fibrillation (principal); I50.33 Acute on chronic diastolic (congestive) heart failure; J96.21 Acute and chronic respiratory failure with hypoxia

== ENCOUNTER → 2024-11-27 11:18 | Outpatient (BNVA) | payer MEDICARE, SELFPAY | PROVIDERS: PCP Internal Medicine; Visit Provider Nurse Practitioner Family | DX: K21.9 Gastro-esophageal reflux disease without esophagitis (principal); J43.9 Emphysema, unspecified; I48.91 Unspecified atrial fibrillation; G47.00 Insomnia, unspecified; I25.2 Old myocardial infarction; E55.9 Vitamin D deficiency, unspecified; I50.33 Acute on chronic diastolic (congestive) heart failure; J96.21 Acute and chronic respiratory failure with hypoxia; Z99.81 Dependence on supplemental oxygen | CPT/HCPCS: 96127; 99212 ==

== ENCOUNTER 2024-11-30 10:13 | Outpatient (AMB) | payer MEDICARE, SELFPAY ==
[2024-11-30 10:24] VITALS: BP 118/58; PULSE 85; BMI 18.8
--- NOTE | 2024-11-30 10:24 | A.OFFVIS_ITS ---
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 Accompanied by: Self / Same As Patient Allergies Sulfa (Sulfonamide Antibiotics) Allergy (Intermediate, Verified 11/27/24 11:28) nausea, vomiting Medication List - Last Reconciled 11/30/24 by Basilio Corral MD ammonium lactate 12% 1 appl topical DAILY PRN apixaban (Eliquis) 5 mg PO BID 90 days cholecalciferol (vitamin D3) 50 mcg PO DAILY 90 days cimetidine 400 mg PO BID 30 days compr.stocking,knee,long,small As directed cyanocobalamin (vitamin B-12) (Vitamin B-12) 100 mcg PO DAILY fluticasone furoate-vilanterol 200-25 mcg/dose (Breo Ellipta) 1 inh inhalation DAILY folic acid 0.8 mg PO DAILY gabapentin 100 mg PO TID PRN levalbuterol tartrate 45 mcg/actuation 2 puffs inhalation Q4-6H PRN 30 days lorazepam 0.5 mg PO BID PRN magnesium oxide 400 mg PO BIDPC metoprolol succinate ER 50 mg PO DAILY pantoprazole 40 mg PO DAILY@0630 90 days potassium chloride 20 mEq (15 mL) PO DAILY rosuvastatin 2.5 mg PO BEDTIME tiotropium bromide 2.5 mcg/actuation (Spiriva Respimat) 2 puffs inhalation DAILY 30 days torsemide 40 mg See Protocol PO BID trolamine salicylate 10% (Aspercreme) 1 appl topical DAILY PRN HPI Comments Details: Pleasant 79-year-old female who is here for follow-up. She was seen in the hospital in 11/18/2023 when she presented with congestive heart failure in the setting of AFib with RVR and diffuse T-wave inversions with echocardiography showing LV dysfunction with LAD territory wall motion abnormality. She was taken for cardiac catheterization after discussion which showed no coronary disease and she was thought to have takotsubo cardiomyopathy. Repeat echocardiography in 12/19/2023 has shown EF 45-50% with some inferior wall motion abnormalities. Subsequent to that she had cardioversion performed and she has been in sinus rhythm and continues to be in sinus rhythm at this point. She is on apixaban 5 mg twice a day. She has been experiencing lower extremity edema which is the main concern to her currently. She has advanced COPD and gets some shortness of breath with activities and has been using her inhalers and following with pulmonology. She also has some nighttime shortness of breath episode which she has been treating with inhalers and Ativan. She has mild edema in the lower extremities but recently her Lasix dose was increased from 40 mg to 40 mg twice a day and edema has improved significantly with that. As per the granddaughter was description she has significant edema compared to what she has right now. Denying chest pains. Labs reviewed. 04/08/2024: She is here for follow-up. She had some bradycardic episodes while she was at rehab. Overall heart rate has recovered and she has no significant symptoms. She is saying her breathing is overall stable. Denying any peripheral edema. Blood pressure is well controlled. She is on apixaban currently and continues to be in sinus rhythm. She is asking whether Farxiga needs to be continued chcf because it is difficult for her to afford it along with Eliquis and other medications. 07/27/2024: She is here for follow-up. He had recent viral illness including diarrhea and respiratory tract infection for which she was given Z-Jagdish. She has been taking medications regularly otherwise. She is saying that since they viral illness she is more short of breath. No significant orthopnea or PND or peripheral edema. Taking Lasix 40 mg twice a day. Patient is asking whether Lasix dose can be decreased. Her blood pressure is also low and she feels thirsty all the time. 11/30/2024: She is here for follow-up after recent hospitalization at [facility]. She was admitted with heart failure and AFib. After discussion she underwent cardioversion and was started on flecainide but it appears she could not tolerate it due to bradycardia. The patient does not recall having significant symptoms but it is documented that she was not feeling well and was bradycardic. Flecainide and metoprolol were held and it appears she is taking Toprol-XL 50 mg rather than 100 mg at this stage. She is saying that she went to rehab and felt better due to more social interactions and better routine then at home but she did not feel any different in terms of her breathing and continued to be fatigued. She is back in the office and EKGs showing atrial fibrillation again. [facility] Medical History Respiratory failure with hypoxia Hypertension CHF (congestive heart failure) PAF (paroxysmal atrial fibrillation) Congestive heart failure Atrial fibrillation with rapid ventricular response Congestive heart failure Acute hypoxemic respiratory failure Encounter for cardioversion procedure Atrial fibrillation with RVR Acute exacerbation of congestive heart failure Acute on chronic hypoxic respiratory failure Acute HFrEF (heart failure with reduced ejection fraction) Chronic lung disease Skin lesion Dyslipidemia Cough due to DAISY inhibitor Neck pain GERD (gastroesophageal reflux disease) Aortic regurgitation Right hand pain Leg edema COPD (chronic obstructive pulmonary disease) Allergic rhinitis Anxiety Surgical History Carpal tunnel syndrome, right History of bilateral cataract extraction History of partial hysterectomy Family History Father Medical history unknown Mother Medical history unknown Social History Household Members: None Housing: House Are you a primary acute care nursing assistant to a significant other at home: No Do you presently have visiting nurse or other home services: No Alcohol intake: current Alcohol intake frequency: a few times a week Alcohol type: other Comment: 1:[address] Patient Tobacco Use Status: Former Tobacco user Tobacco use type: Cigarette e-Cigarette/Vaping Use: Never Used Second Hand Smoke Exposure: No Advance Directives Date on File: 08/25/20 service: No Current occupational status: retired Cognitive needs: No Hearing needs: No Vision needs: No Review of Systems Const Denies chills, Denies fatigue, Denies fever(s), Denies frequent falls, Denies weakness, Denies weight gain and Denies weight loss ENT Denies dizziness Card Denies chest pain, Denies leg edema, Denies lightheadedness, Denies palpitations, Denies dyspnea and Denies dyspnea on exertion Resp Denies cough, Denies dyspnea and Denies dyspnea on exertion GI Denies hematochezia Musc Denies abnormal gait, Denies muscle weakness, Denies numbness, Denies radiating pain into limb and Denies tingling Neuro Denies abnormal gait, Denies dizziness, Denies frequent falls, Denies numbness, Denies tingling and Denies weakness Endo Denies fatigue and Denies palpitations Physical Exam Vital Signs: Last Vital Signs Pulse 80 11/30/24 10:39 BP 109/56 L 11/30/24 10:39 BMI result Body Mass Index 18.8 GENERAL APPEARANCE: Frail appearing. On supplemental oxygen. NECK: no carotid bruit, no jugular venous distention. SKIN: no suspicious lesions, warm and dry. HEART: no murmurs, irregular rate and rhythm. LUNGS: clear to auscultation bilaterally. ABDOMEN: soft, nontender. EXTREMITIES: no edema. PERIPHERAL PULSES: equal. NEUROLOGIC: No gross deficits, AAO X 3 Office Procedures EKG Details: Atrial fibrillation 90 beats per minute, nonspecific T-wave changes, septal infarct, QTC 455 milliseconds. [id number], Complete Assessment & Plan Assessment & Plan (1) Hypertension: Code(s): I10 - Essential (primary) hypertension Category: Medical Qualifiers: Hypertension type: essential hypertension Qualified Code(s): I10 - Essential (primary) hypertension (2) Afib: Code(s): I48.91 - Unspecified atrial fibrillation Category: Medical (3) Chronic diastolic heart failure: Code(s): I50.32 - Chronic diastolic (congestive) heart failure Category: Medical Plan 79-year-old female who is here for follow-up. She was seen in the hospital recently with mild congestive heart failure and atrial fibrillation. She has been in persistent atrial fibrillation since RSV infection few months ago. She was complaining of fatigue and shortness of breath. She has COPD and has been on supplemental oxygen at baseline. We discussed that her fatigue and lack of energy can be related to atrial fibrillation. After discussion and diuresis she underwent cardioversion successfully and was started on flecainide. Initially she was on 50 mg twice a day but the dose was increased to 100 mg and then she had episode of symptomatic bradycardia. Flecainide and metoprolol both were discontinued. She is saying that she is taking metoprolol 50 mg at this stage. She said when she went to rehab she continued to feel fatigued and short of breath and there was no significant difference in her symptoms after cardioversion. The challenges that she is back in atrial fibrillation at this point and is difficult to say when did she developed atrial fibrillation. She is saying that since she returned home she is little more short of breath than before. Clinically she does not look volume overloaded and I think she is doing better with the current torsemide dose. I think she can continue the Toprol-XL at the same dose currently. I discussed with her about cardioversion versus rate control strategy and due to unclear improvement in symptoms we have opted for rate control strategy for now. I have explained to her that if her breathing continues to worsen or if she develops any clear heart failure episode then we may have to definitely look at atrial fibrillation as a potential reason for that. In that situation my inclination is to use short-term amiodarone (previously we avoid it because of her significant lung disease history) to see if she can maintain sinus rhythm and we can understand her symptoms better. If she has significant improvement in symptoms valve in sinus rhythm then discussions about ablation or continuing amiodarone with close monitoring with the help of pulmonology could be a possibility. She will see us back in couple of months. Thank you for allowing me to participate in the care of your patient. Please feel free to contact me if you have any questions. Coding Level of Care Code Est Pt Level 5 (29128) Diagnoses Essential hypertension I10 Hypertension type: essential hypertension Afib I48.91 Chronic diastolic heart failure I50.32 CPT Codes EKG - CPT: 31435-[id number], Complete ([id number])
[2024-11-30 10:39] VITALS: BP 109/56; BP 118/56; PULSE 80; PULSE 88
--- OUTSIDE RECORDS SUMMARY | 2024-11-30 11:10 | XMS_ITS | Encounter Summary ---
Author Organization [employer] Address [address] [place] [address] Care Team Providers Care Or Rn Name Role Phone Louis Velazco MD Primary Care Provider [phone] Encounter Details Date Type Department Care Team (Late st Contact Info) Description 11/06/2024 Lab Requisition [facility] - Main Lab [address] [facility] [place] [address] Louis Velazco MD [address] [place] [id number] Acute systolic (congestive) heart failure (CMS/HCC [...] mmol/L LAB CHEMISTRY METHOD 11/06/2024 11:54 AM [facility] Potassium 3.6 3.5 - 5.5 mmol/L LAB CHEMISTRY METHOD 11/06/2024 11:54 AM [facility] Chloride 94(L) 96 - 110 mmol/L LAB CHEMISTRY METHOD 11/06/2024 11:54 AM [facility] CO2 32 21 - 32 mmol/L LAB CHEMISTRY METHOD 11/06/2024 11:54 AM [facility] Anion Gap 9 3 - 11 LAB CHEMISTRY METHOD 11/06/2024 11:54 AM [facility] Glucose 95 70 - 100 mg/dL LAB CHEMISTRY METHOD 11/06/2024 11:54 AM [facility] BUN 43(H) 5 - 25 mg/dL LAB CHEMISTRY METHOD 11/06/2024 11:54 AM [facility] Creatinine 1.09 0.50 - 1.10 mg/dL LAB CHEMISTRY METHOD 11/06/2024 11:54 AM [facility] eGFR 51(L) >=60 mL/min/1. 73m2 LAB CHEMISTRY METHOD 11/06/2024 11:54 AM [facility] Comment:Calculation based on the Chronic Kidney Disease Epidemiology Collaboration (CKD-EPI) equation refit without adjustment for race. BUN/Creatinine Ratio 39.4 LAB CHEMISTRY METHOD 11/06/2024 11:54 AM [facility] Calcium 8.8 8.5 - 10.5 mg/dL LAB CHEMISTRY METHOD 11/06/2024 11:54 AM [facility] AST (SGOT) 301(H) 10 - 42 unit/L LAB CHEMISTRY METHOD 11/06/2024 11:54 AM [facility] Comment:Results verified by repeat testing ALT (SGPT) 348(H) 10 - 60 unit/L LAB CHEMISTRY METHOD 11/06/2024 11:54 AM T [facility] Comment:Results verified by repeat testing Alkaline Phosphatase 170(H) 42 - 121 unit/L LAB CHEMISTRY METHOD 11/06/2024 11:54 AM [facility] Total Protein 5.8(L) 6.0 - 8.0 g/dL LAB CHEMISTRY METHOD 11/06/2024 11:54 AM [facility] Albumin 3.5 3.2 - 5.0 g/dL LAB CHEMISTRY METHOD 11/06/2024 11:54 AM [facility] Total Bilirubin 1.1 0.0 - 1.4 mg/dL LAB CHEMISTRY METHOD 11/06/2024 11:54 AM [facility] Blood Venous blood specimen / Unknown Venipuncture / Unknown 11/06/2024 5:13 AM EDT 11/06/2024 10:04 AM EDT us Louis Velazco MD LAB BLOOD ORDERABLES Final Resu lt [facility] [address] [place] [address], * (ABNORMAL) Complete blood count (11/06/2024 5:13 AM EDT) WBC 12.7(H) 4.8 - 10.8 K[facility] HEMETOLOGY METHOD 11/06/2024 10:49 AM EDT [facility] RBC 3.60(L) 3.80 - 4.80 M[facility] LAB HEMETOLOGY METHOD 11/06/2024 10:49 AM EDT [facility] Hemoglobin 9.2(L) 11.5 - 16.0 g/dL LAB HEMETOLOGY METHOD 11/06/2024 10:49 AM EDT [facility] Hematocrit 30.9(L) 35.0 - 47.0 % LAB HEMETOLOGY METHOD 11/06/2024 10:49 AM EDT [facility] MCV 84.9 79.0 - 98.0 FL LAB HEMETOLOGY METHOD 11/06/2024 10:49 AM EDT [facility] MCH 25.3(L) 27.0 - 32.0 pcg LAB HEMETOLOGY METHOD 11/06/2024 10:49 AM EDT [facility] MCHC 29.8(L) 32.0 - 37.0 g/dL LAB HEMETOLOGY METHOD 11/06/2024 10:49 AM EDT [facility] RDW 16.9(H) 11.0 - 15.0 % LAB HEMETOLOGY METHOD 11/06/2024 10:49 AM EDT [facility] Platelets 202 130 - 400 K/mcL LAB HEMETOLOGY METHOD 11/06/2024 10:49 AM EDT [facility] MPV 10.6 7.0 - 11.0 FL LAB HEMETOLOGY METHOD 11/06/2024 10:49 AM EDT [facility] NRBC 0.4 <1.0 % LAB HEMETOLOGY METHOD 11/06/2024 10:49 AM [facility] NRBC Absolute 0.05 <0.10 K/mcL LAB HEMETOLOGY METHOD 11/06/2024 10:49 AM EDT [facility] Blood Venous blood specimen / Unknown Venipuncture / Unknown 11/06/2024 5:13 AM EDT 11/06/2024 10:04 AM EDT us Louis Velazco MD LAB BLOOD ORDERABLES Final Resu lt [facility] [address] [place] [address], documented in this encounter Visit Diagnoses Diagnosis Acute systolic (congestive) heart failure ([facility] V24, [facility] V28) Chronic obstructive pulmonary disease with (acute) exacerbation ([facility] V24, [facility] V28) documented in this encounter Care Teams Or Rn Relationship Specialty Start Date End Date Louis Velazco MD [address] [place] [phone] PCP - General Internal Medicine 11/06/24 documented as of this encounter
== END 2024-11-30 11:15 | disposition home or self-care (01) ==
LOC: HO.HCS 10:14
PROVIDERS: PCP Internal Medicine; Visit Provider Internal Medicine Cardiovascular Disease
DX: I10 Essential (primary) hypertension (principal); I48.91 Unspecified atrial fibrillation; I50.32 Chronic diastolic (congestive) heart failure
CPT/HCPCS: 93010; 99214

== ENCOUNTER → 2024-11-30 10:13 | Outpatient (BNVA) | payer MEDICARE, SELFPAY | PROVIDERS: PCP Internal Medicine; Visit Provider Internal Medicine Cardiovascular Disease | DX: I11.0 Hypertensive heart disease with heart failure (principal); I50.32 Chronic diastolic (congestive) heart failure; I48.91 Unspecified atrial fibrillation | CPT/HCPCS: 93005; 99212 ==

== ENCOUNTER 2024-12-02 10:48 | Outpatient (AMB) | payer MEDICARE, SELFPAY ==
[2024-12-02 11:05] VITALS: BP 102/50; PULSE 88; O2SAT 98; BMI 18.5
--- NOTE | 2024-12-02 11:05 | A.OFFVIS_ITS ---
Vital Signs 12/02/24 11:05 Height 5 ft 4 in Weight 108 lb 0.424 oz BMI 18.5 BP 102/50 L Blood Pressure Location Lt brachial Position Sitting Pulse 88 Pulse Source Pulse Oximeter Pulse Oximetry (%) 98 Oxygen Delivery Method Nasal Cannula Oxygen Flow Rate 2 Intake Visit Reasons: copd Intake Note: pt is here for follow up and states she is here for hospital f/u/rehab had RSV and fall, and is still fatigued, and short of breath is not good, and using incentive sprirometry. The MD on the floor stated she maybe should try a new inhaler. Help Desk Analyst Required: No Allergies Sulfa (Sulfonamide Antibiotics) Allergy (Intermediate, Verified 12/02/24 13:19) nausea, vomiting Medication List - Last Reconciled 12/02/24 by Tamara Rehman MD ammonium lactate 12% 1 appl topical DAILY PRN apixaban (Eliquis) 5 mg PO BID 90 days cholecalciferol (vitamin D3) 50 mcg PO DAILY 90 days cimetidine 400 mg PO BID 30 days compr.stocking,knee,long,small As directed cyanocobalamin (vitamin B-12) (Vitamin B-12) 100 mcg PO DAILY fluticasone furoate-vilanterol 200-25 mcg/dose (Breo Ellipta) 1 inh inhalation DAILY folic acid 0.8 mg PO DAILY gabapentin 100 mg PO TID PRN levalbuterol tartrate 45 mcg/actuation 2 puffs inhalation Q4-6H PRN 30 days lorazepam 0.5 mg PO BID PRN magnesium oxide 400 mg PO BIDPC metoprolol succinate ER 50 mg PO DAILY pantoprazole 40 mg PO DAILY@0630 90 days potassium chloride 20 mEq (15 mL) PO DAILY rosuvastatin 2.5 mg PO BEDTIME tiotropium bromide 2.5 mcg/actuation (Spiriva Respimat) 2 puffs inhalation DAILY 30 days torsemide 40 mg See Protocol PO BID trolamine salicylate 10% (Aspercreme) 1 appl topical DAILY PRN Do you need a note to return to daycare/school/sports/work: No HPI HPI copd: Details: 79 years old very pleasant female a known case of advanced chronic obstructive pulmonary disease in addition to her chronic congestive heart failure, and atrial fibrillation, Comes for follow-up visit after her recent hospitalization and stay in a rehab facility for 2 weeks. The main reason for her emergency visit and subsequent hospitalization was falling down backwards and having some cervical spine injury. But luckily no fractures were noted She also had increased degree of congestive heart failure and was monitored in the ICU/IMC . Diuretic agent changed from furosemide to torsemide 40 mg a day. She states that she was told that she had a acute viral bronchitis, probably RSV. But it is not documented in the medical records. Anyway from respiratory point of view she has remained stable. Except for symptom of increased shortness of breath than usual. She continues to use Breo 200-251 inhalation daily. Spiriva Respimat who inhalation daily and levalbuterol 2 puffs Q 4-6 hours p.r.n. She comes in today and seems to be at her baseline condition. Using O2 2 L/minute Continuously She can walks short distance but obviously short of breath when she exerts. [facility] Medical History (Updated 12/02/24 @ 13:26 by Tamara Rehman MD) COPD (chronic obstructive pulmonary disease) Supplemental oxygen dependent Atrial fibrillation CHF (congestive heart failure) Persistent atrial fibrillation Cardiomyopathy COPD (chronic obstructive pulmonary disease) Respiratory failure with hypoxia Hypertension CHF (congestive heart failure) PAF (paroxysmal atrial fibrillation) Congestive heart failure Atrial fibrillation with rapid ventricular response Congestive heart failure Acute hypoxemic respiratory failure Encounter for cardioversion procedure Atrial fibrillation with RVR Acute exacerbation of congestive heart failure Acute on chronic hypoxic respiratory failure Acute HFrEF (heart failure with reduced ejection fraction) Chronic lung disease Skin lesion Dyslipidemia Cough due to DAISY inhibitor Neck pain GERD (gastroesophageal reflux disease) Aortic regurgitation Right hand pain Leg edema Allergic rhinitis Anxiety Surgical History Carpal tunnel syndrome, right History of bilateral cataract extraction History of partial hysterectomy Family History Father Medical history unknown Mother Medical history unknown Social History Household Members: None Housing: House Are you a primary healthcare sales representative to a significant other at home: No Do you presently have visiting nurse or other home services: No Alcohol intake: current Alcohol intake frequency: a few times a week Alcohol type: other Comment: 1:[address] Patient Tobacco Use Status: Former Tobacco user Tobacco use type: Cigarette e-Cigarette/Vaping Use: Never Used Second Hand Smoke Exposure: No Advance Directives Date on File: 08/25/20 service: No Current occupational status: retired Cognitive needs: No Hearing needs: No Vision needs: No Review of Systems Const All systems reviewed & are unremarkable except as noted in HPI and below Eyes Reports no additional complaints ENT Reports nasal congestion (Mild intermittent) and Reports neck pain (Mild off and on) Card Denies chest pain at rest, Denies chest pain with activity, Denies edema, Denies irregular heart rhythm, Denies claudication, Denies dyspnea, Denies dyspnea on exertion, Denies orthopnea, Denies paroxysmal nocturnal dyspnea and Denies slow heart rate Resp Denies cough, Denies dyspnea and Denies dyspnea on exertion GI Reports heartburn (GERD symptoms controlled with med) Reports no additional complaints Musc Reports neck pain (Mild off and on) Skin/Breast Reports rash Neuro Reports no additional complaints Psych Reports no additional complaints Physical Exam Vital Signs: Last Vital Signs Pulse 88 12/02/24 11:05 BP 102/50 L 12/02/24 11:05 Pulse Ox 98 12/02/24 11:05 Oxygen Delivery Method Nasal Cannula 12/02/24 11:05 Oxygen Flow Rate 2 12/02/24 11:05 BMI result Body Mass Index 18.5 Const General: comfortable, no acute distress, alert and awake Orientation/consciousness: patient oriented x3 HEENT Head: Yes normal to inspection General nose exam: No nasal polyps present, No nasal discharge present and Other nasal findings present (Mild nasal congestion is present) Face and sinus: Yes sinuses nontender Mouth: oropharynx normal Throat: Yes posterior oropharynx normal Eyes General: appearance normal, both eyes and all related structures Neck Neck: Yes normal visual inspection, Yes no lymphadenopathy, Yes trachea midline and Yes no JVD Thyroid: Thyroid normal Chest Chest palpation & inspection: normal inspection of the chest, normal palpation of entire chest wall and no tenderness Resp Other: Percussion note hyper-resonant, breath sounds are equal on both sides with prolonged expiratory phase. No wheezes rhonchi, a few fine inspiratory crackles over the basilar areas. Cardio Palpation: normal PMI Rate: regular rate Rhythm: regular rhythm Heart sounds: no gallops and no murmurs GI Palpation (GI): Soft to palpation, nontender, No hepatosplenomegaly present and no masses Auscultation: normal bowel sounds Back/Spine/Pelvis Thoracic/Lumbar Spine: thoracic and lumbar spine normal to inspection Skin General skin exam: no rashes or lesions noted Neuro General: patient oriented x3 and no focal motor deficits Cranial nerves: Yes CN's II-XII intact bilaterally Extrem General: Yes normal to inspection, Yes no calf tenderness and Yes edema (1+ edema around the ankles and of the feet on both sides) Psych Appearance: grossly normal and well kempt Speech and movement: Normal speech and movement present Assessment & Plan Assessment & Plan (1) Respiratory failure with hypoxia: Comment: PATIENT HAS HAD HYPOXEMIC RESPIRATORY FAILURE AND DOES NEED OXYGEN SUPPLEMENTATION. SHE HAS A VERY LIGHTWEIGHT PORTABLE POC. WHICH IS EASY FOR HER TO CARRY AROUND. Code(s): J96.91 - Respiratory failure, unspecified with hypoxia Category: Medical Qualifiers: Chronicity: acute on chronic Qualified Code(s): J96.21 - Acute and chronic respiratory failure with hypoxia Plan: CONTINUE TO USE O2 2 L/MINUTE 24 HOURS A DAY. (2) COPD (chronic obstructive pulmonary disease): Comment: COPD is severe, had remained stable over the past few years. She has had no acute exacerbation. Her respiratory status decompensates usually due to super added congestive heart failure, which at present is under control Code(s): J44.9 - Chronic obstructive pulmonary disease, unspecified Category: Medical Qualifiers: COPD type: unspecified COPD Qualified Code(s): J44.9 - Chronic obstructive pulmonary disease, unspecified Plan: CONTINUE BREO 200-251 INHALATION DAILY SPIRIVA RESPIMAT. 2.5 MG 2 INHALATIONS DAILY LEVALBUTEROL HFA 2 PUFFS Q 4-6 HOURS P.R.N. Coding Level of Care Code Est Pt Level 3 (80400) Diagnoses Acute on chronic respiratory failure with hypoxia J96.21 Chronicity: acute on chronic Chronic obstructive pulmonary disease, unspecified COPD type J44.9 COPD type: unspecified COPD
--- OUTSIDE RECORDS SUMMARY | 2024-12-02 11:38 | XMS_ITS | Encounter Summary ---
Author Organization [facility] Address [address] [place] [address] Care Team Providers Care Supervisor Remelt Name Role Phone Louis Velazco MD Primary Care Provider [phone] Encounter Details Date Type Department Care Team (Late st Contact Info) Description 11/06/2024 Lab Requisition [facility] - Main Lab [address] [facility] [place] [address] Louis Velazco MD [address] [place] [phone] Acute systolic (congestive) heart failure (CMS/HCC [...] mmol/L LAB CHEMISTRY METHOD 11/06/2024 11:54 AM [facility] Potassium 3.6 3.5 - 5.5 mmol/L LAB CHEMISTRY METHOD 11/06/2024 11:54 AM [facility] Chloride 94(L) 96 - 110 mmol/L LAB CHEMISTRY METHOD 11/06/2024 11:54 AM [facility] CO2 32 21 - 32 mmol/L LAB CHEMISTRY METHOD 11/06/2024 11:54 AM [facility] Anion Gap 9 3 - 11 LAB CHEMISTRY METHOD 11/06/2024 11:54 AM [facility] Glucose 95 70 - 100 mg/dL LAB CHEMISTRY METHOD 11/06/2024 11:54 AM [facility] BUN 43(H) 5 - 25 mg/dL LAB CHEMISTRY METHOD 11/06/2024 11:54 AM [facility] Creatinine 1.09 0.50 - 1.10 mg/dL LAB CHEMISTRY METHOD 11/06/2024 11:54 AM [facility] eGFR 51(L) >=60 mL/min/1. 73m2 LAB CHEMISTRY METHOD 11/06/2024 11:54 AM [facility] Comment:Calculation based on the Chronic Kidney Disease Epidemiology Collaboration (CKD-EPI) equation refit without adjustment for race. BUN/Creatinine Ratio 39.4 LAB CHEMISTRY METHOD 11/06/2024 11:54 AM [facility] Calcium 8.8 8.5 - 10.5 mg/dL LAB CHEMISTRY METHOD 11/06/2024 11:54 AM [facility] AST (SGOT) 301(H) 10 - 42 unit/L LAB CHEMISTRY METHOD 11/06/2024 11:54 AM [facility] Comment:Results verified by repeat testing ALT (SGPT) 348(H) 10 - 60 unit/L LAB CHEMISTRY METHOD 11/06/2024 11:[address] [facility] Comment:Results verified by repeat testing Alkaline Phosphatase 170(H) 42 - 121 unit/L LAB CHEMISTRY METHOD 11/06/2024 11:54 AM [facility] Total Protein 5.8(L) 6.0 - 8.0 g/dL LAB CHEMISTRY METHOD 11/06/2024 11:54 AM [facility] Albumin 3.5 3.2 - 5.0 g/dL LAB CHEMISTRY METHOD 11/06/2024 11:54 AM [facility] Total Bilirubin 1.1 0.0 - 1.4 mg/dL LAB CHEMISTRY METHOD 11/06/2024 11:54 AM [facility] Blood Venous blood specimen / Unknown Venipuncture / Unknown 11/06/2024 5:13 AM EDT 11/06/2024 10:04 AM EDT us Louis Velazco MD LAB BLOOD ORDERABLES Final Resu lt [facility] [address] [place] [address], * (ABNORMAL) Complete blood count (11/06/2024 5:13 AM EDT) WBC 12.7(H) 4.8 - 10.8 K/[facility] LAB HEMETOLOGY METHOD 11/06/2024 10:[address] [facility] RBC 3.60(L) 3.80 - 4.80 M/[facility] LAB HEMETOLOGY METHOD 11/06/2024 10:[address] [facility] Hemoglobin 9.2(L) 11.5 - 16.0 g/dL LAB HEMETOLOGY METHOD 11/06/2024 10:[address] [facility] Hematocrit 30.9(L) 35.0 - 47.0 % LAB HEMETOLOGY METHOD 11/06/2024 10:[address] [facility] MCV 84.9 79.0 - 98.0 FL LAB HEMETOLOGY METHOD 11/06/2024 10:[address] [facility] MCH 25.3(L) 27.0 - 32.0 pcg LAB HEMETOLOGY METHOD 11/06/2024 10:[address] [facility] MCHC 29.8(L) 32.0 - 37.0 g/dL LAB HEMETOLOGY METHOD 11/06/2024 10:[address] [facility] RDW 16.9(H) 11.0 - 15.0 % LAB HEMETOLOGY METHOD 11/06/2024 10:[address] [facility] Platelets 202 130 - 400 K/mcL LAB HEMETOLOGY METHOD 11/06/2024 10:[address] [facility] MPV 10.6 7.0 - 11.0 FL LAB HEMETOLOGY METHOD 11/06/2024 10:[address] [facility] NRBC 0.4 <1.0 % LAB HEMETOLOGY METHOD 11/06/2024 10:49 AM [facility] NRBC Absolute 0.05 <0.10 K/mcL LAB HEMETOLOGY METHOD 11/06/2024 10:[address] [facility] Blood Venous blood specimen / Unknown Venipuncture / Unknown 11/06/2024 5:13 AM EDT 11/06/2024 10:04 AM EDT us Louis Velazco MD LAB BLOOD ORDERABLES Final Resu lt [facility] [address] [place] [address], documented in this encounter Visit Diagnoses Diagnosis Acute systolic (congestive) heart failure ([facility] V24, [facility] V28) Chronic obstructive pulmonary disease with (acute) exacerbation ([facility] V24, [facility] V28) documented in this encounter Care Teams Supervisor Remelt Relationship Specialty Start Date End Date Louis Velazco MD [address] [place] [address] PCP - General Internal Medicine 11/06/24 documented as of this encounter
== END 2024-12-02 11:32 | disposition home or self-care (01) ==
LOC: HO.HPS 10:49
PROVIDERS: PCP Internal Medicine; Visit Provider Internal Medicine
DX: J96.21 Acute and chronic respiratory failure with hypoxia (principal); J44.9 Chronic obstructive pulmonary disease, unspecified
CPT/HCPCS: 99213

== ENCOUNTER → 2024-12-02 10:48 | Outpatient (BNVA) | payer MEDICARE, SELFPAY | PROVIDERS: PCP Internal Medicine; Visit Provider Internal Medicine | DX: J44.9 Chronic obstructive pulmonary disease, unspecified (principal); J96.21 Acute and chronic respiratory failure with hypoxia; I50.9 Heart failure, unspecified; Z99.81 Dependence on supplemental oxygen | CPT/HCPCS: 99212 ==

== ENCOUNTER 2025-01-27 09:30 | Outpatient (REF) | payer MEDICARE, SELFPAY ==
[2025-01-27 10:30] LABS: MANUAL DIFF FLAG NO
[2025-01-27 10:36] LABS: Hematocrit 31.5 % (37.0-47.0); Hemoglobin 9.2 g/dl (12.0-16.0); Imm Gran Abs Auto 0.03 X10*3/uL (0.00-0.03); Imm Gran Pct Auto 0.4 % (0.0-0.4); Lymphocytes Absolute Auto 1.1 X10*3/uL (1.2-4.9); Mean Corpuscular HGB Conc 29.2 g/dl (31.0-35.0); Mean Corpuscular Hemoglobin 22.5 pg (27.0-33.0); Mean Corpuscular Volume 77.0 fL (80.0-98.0); NRBC Abs Auto 0.000 X10*3/uL (0.0-0.012); NRBC Pct Auto 0.0 /100WBC (0.0-0.2); Platelet Count 243 X10*3/uL (160-400); Red Blood Count 4.09 X10*6/uL (4.20-5.50); White Blood Count 8.3 X10*3/uL (4.8-10.8)
--- OUTSIDE RECORDS SUMMARY | 2025-01-27 11:14 | XMS_ITS | Encounter Summary ---
Author Organization [facility] Address [address] [place] [address] Care Team Providers Care School Athletic Director Name Role Phone Louis Velazco MD Primary Care Provider [phone] Encounter Details Date Type Department Care Team (Late st Contact Info) Description 11/06/2024 Lab Requisition [facility] - Main Lab [address] [facility] [place] [address] Louis Velazco MD [address] [place] [phone] Acute systolic (congestive) heart failure (CMS/HCC [...] mmol/L LAB CHEMISTRY METHOD 11/06/2024 11:54 AM [facility] Potassium 3.6 3.5 - 5.5 mmol/L LAB CHEMISTRY METHOD 11/06/2024 11:54 AM [facility] Chloride 94(L) 96 - 110 mmol/L LAB CHEMISTRY METHOD 11/06/2024 11:54 AM [facility] CO2 32 21 - 32 mmol/L LAB CHEMISTRY METHOD 11/06/2024 11:54 AM [facility] Anion Gap 9 3 - 11 LAB CHEMISTRY METHOD 11/06/2024 11:54 AM [facility] Glucose 95 70 - 100 mg/dL LAB CHEMISTRY METHOD 11/06/2024 11:54 AM [facility] BUN 43(H) 5 - 25 mg/dL LAB CHEMISTRY METHOD 11/06/2024 11:54 AM [facility] Creatinine 1.09 0.50 - 1.10 mg/dL LAB CHEMISTRY METHOD 11/06/2024 11:54 AM [facility] eGFR 51(L) >=60 mL/min/1. 73m2 LAB CHEMISTRY METHOD 11/06/2024 11:54 AM [facility] Comment:Calculation based on the Chronic Kidney Disease Epidemiology Collaboration (CKD-EPI) equation refit without adjustment for race. BUN/Creatinine Ratio 39.4 LAB CHEMISTRY METHOD 11/06/2024 11:54 AM [facility] Calcium 8.8 8.5 - 10.5 mg/dL LAB CHEMISTRY METHOD 11/06/2024 11:54 AM [facility] AST (SGOT) 301(H) 10 - 42 unit/L LAB CHEMISTRY METHOD 11/06/2024 11:54 AM [facility] Comment:Results verified by repeat testing ALT (SGPT) 348(H) 10 - 60 unit/L LAB CHEMISTRY METHOD 11/06/2024 11:54 AM T [facility] Comment:Results verified by repeat testing Alkaline Phosphatase 170(H) 42 - 121 unit/L LAB CHEMISTRY METHOD 11/06/2024 11:54 AM [facility] Total Protein 5.8(L) 6.0 - 8.0 g/dL LAB CHEMISTRY METHOD 11/06/2024 11:54 AM [facility] Albumin 3.5 3.2 - 5.0 g/dL LAB CHEMISTRY METHOD 11/06/2024 11:54 AM [facility] Total Bilirubin 1.1 0.0 - 1.4 mg/dL LAB CHEMISTRY METHOD 11/06/2024 11:54 AM [facility] Blood Venous blood specimen / Unknown Venipuncture / Unknown 11/06/2024 5:13 AM EDT 11/06/2024 10:04 AM EDT us Louis Velazco MD LAB BLOOD ORDERABLES Final Resu lt [facility] [address] [place] [address], * (ABNORMAL) Complete blood count (11/06/2024 5:13 AM EDT) WBC 12.7(H) 4.8 - 10.8 K/[facility] LAB HEMETOLOGY METHOD 11/06/2024 10:49 AM EDT [facility] RBC 3.60(L) 3.80 - 4.80 M/[facility] LAB HEMETOLOGY METHOD 11/06/2024 10:49 AM EDT [facility] Hemoglobin 9.2(L) 11.5 - 16.0 g/dL LAB HEMETOLOGY METHOD 11/06/2024 10:49 AM EDT [facility] Hematocrit 30.9(L) 35.0 - 47.0 % LAB HEMETOLOGY METHOD 11/06/2024 10:49 AM EDT [facility] MCV 84.9 79.0 - 98.0 FL LAB HEMETOLOGY METHOD 11/06/2024 10:49 AM EDT [facility] MCH 25.3(L) 27.0 - 32.0 pcg LAB HEMETOLOGY METHOD 11/06/2024 10:49 AM EDT [facility] MCHC 29.8(L) 32.0 - 37.0 g/dL LAB HEMETOLOGY METHOD 11/06/2024 10:49 AM EDT [facility] RDW 16.9(H) 11.0 - 15.0 % LAB HEMETOLOGY METHOD 11/06/2024 10:49 AM EDT [facility] Platelets 202 130 - 400 K/mcL LAB HEMETOLOGY METHOD 11/06/2024 10:49 AM EDT [facility] MPV 10.6 7.0 - 11.0 FL LAB HEMETOLOGY METHOD 11/06/2024 10:49 AM EDT [facility] NRBC 0.4 <1.0 % LAB HEMETOLOGY METHOD 11/06/2024 10:49 AM [facility] NRBC Absolute 0.05 <0.10 K/mcL LAB HEMETOLOGY METHOD 11/06/2024 10:49 AM EDT [facility] Blood Venous blood specimen / Unknown Venipuncture / Unknown 11/06/2024 5:13 AM EDT 11/06/2024 10:04 AM EDT us Louis Velazco MD LAB BLOOD ORDERABLES Final Resu lt [facility] [address] [place] [address], documented in this encounter Visit Diagnoses Diagnosis Acute systolic (congestive) heart failure ([facility] V24, [facility] V28) Chronic obstructive pulmonary disease with (acute) exacerbation ([facility] V24, [facility] V28) documented in this encounter Care Teams School Athletic Director Relationship Specialty Start Date End Date Louis Velazco MD [address] [place] [address] PCP - General Internal Medicine 11/06/24 documented as of this encounter
--- OUTSIDE RECORDS SUMMARY | 2025-01-27 11:14 | XMS_ITS | Patient Health Record ---
Author Organization [facility] Address [address] [place] [address] Care Team Providers Care Motor Vehicle Salesperson Name Role Phone Parul Cartagena Primary Care Provider Unavailab Mick Quiroz Unavailable [phone] Reason For Referral No Information Medications Medication SIG (Take, Route, Frequency, Duration) Notes Start Date End Date Status ProAir HFA 108 (90 Base) MCG/ACT 2 puffs as needed Inhalation every 4 hrs Active Spiriva Respimat 2.5 MCG/ACT TAKE 2 PUFFS BY MOUTH ONCE A DAY Inhalation for 30 Active Omeprazole 20 MG 1 capsule Orally Once a day for 30 Active Qvar 80 MCG/ACT INHALE 2 PUFF(S) BY MOUTH TWICE A DAY Inhalation for 30 Active amLODIPine Besylate 5 MG TAKE 1 TABLET BY MOUTH DAILY Oral for 30 Active LORazepam 0.5 MG (Schedule IV Drug) TAKE 1 TABLET EVERY 8 HOURS Oral for 30 Usually once a day, occasionally twice Active Problems Problem Type SNOMED Code ICD Code Onset Dates Problem Status W/U Status Risk Notes Problem 590228385 Encounter for screening for malignant neoplasm of colon (Z12.11) Active confirmed Problem Screening for malignant neoplasm of rectum (645644194) Encounter for screening for malignant neoplasm of rectum (Z12.12) Active confirmed Problem [id number] Abdominal pain, epigastric (R10.13) Active confirmed Problem [id number] Gastroesophageal reflux disease, esophagitis presence not specified (K21.9) Active confirmed Plan Of Treatment Future Test Test Name Order Date UPPER GI ENDOSCOPY 07/20/2016 COLONOSCOPY 07/20/2016 Insurance Providers Payer Name Payer Address Payer Phone Subscriber Number Group Number Insured Name Patient Relationship to Insured Coverage Start Date Coverage End Date [employer] [address] [place] [phone] [id number] LAZARO PAULSON Self - patient is the insured Medical (General) History Medical History History ICD Code Hypertension COPD Denies UT,DM,CVA,renal disease GERD Neg. Hemoccults in 05/2016--she does the m yearly Chest pain 07/2016--having a cardiac w/u with Dr. Reilly--ETT and Cardiac ECHO Surgical History Surgery Date(Month/Year) Hysterectomy and removal of 1 ovary 1980 Tonsils/adenoids
--- OUTSIDE RECORDS SUMMARY | 2025-01-27 11:14 | XMS_ITS | Patient Health Record ---
[facility] Organization [facility] [place] Address [address] [place] [address] Care Team Providers Care Conditioner Tumbler Operator Name Role Phone Parul Crystal MD Primary Care Provider Unavail able Renuka Loja Unavailable [phone] Allergies Allergen (clinical drug ingredient) Drug/Non Drug Allergy documented on EMR Reaction Allergy Type Onset Date Status sulfamethoxazole / trimethoprim Bactrim Unknown Drug Allergy Active Reason For Referral Diagnosis 1 Pain in unspecified foot (M79.673) Referring Provider First Name Parul Referring Provider Last Name Bonilla Referred Organization [facility] Jarett Referred Provider Renuka Loja Referred Address [address] [place], [place],[address], Referred Provider Specialty Podiatry Referral Priority Routine Medications Medication SIG (Take, Route, Fr equency, Duration) Notes Start Date End Date Status Metoprolol Succinate Active Eliquis Active Ammonium Lactate 12 % 1 application Exte rnally to affected areas of dry skin to feet except for between the toes Twice a day; Duration: 30 days Active Vitamin D3 Active Rosuvastatin Calcium Active Folic Acid Active Vitamin B12 Active Immunizations Vaccine Route Administration Date Status Comme nts Influenza Unknown 05/01/2024 Administered Social History Tobacco Use: Social History Observation [...] Problem Status W/U Status Risk Notes Problem Bilateral atherosclerosis of arteries of lower limbs (disorder) (72688121294666999 ) Atherosclerosis of [place] artery of both lower extremities, with unspecified presence of clinical manifestation (I70.203) Active confirmed Q7(A), Q8(2B), Q9(1B,2 C) Problem Ischemic ulcer o f left foot, limited to breakdown of skin (L97.521) Active confirmed Problem Varicose veins of bilateral lower limbs (75243904612373342 ) Symptomatic varicose veins of both lower extremities (I83.893) Active confirmed Vital Signs Blood pressure diastolic 60 mm Hg 12/08/2024 Height 5ft3in in 12/08/2024 Blood pressure systolic 130 mm Hg 12/08/2024 Weight 115 lbs 12/08/2024 BMI 20.37 kg/m2 12/08/2024 Encounters Encounter Location Date Provider Diagnosis [address] [address] 10/27/2024 Renuka Perica Atherosclerosis of [place] artery of both lower extremities, with unspecified presence of clinical manifestation I70.203 ; Xerosis of skin L85.3 ; Pain in left toe(s) M79.675 ; Skin fissure R23.4 ; Ischemic ulcer of left foot, limited to breakdown of skin L97.521 ; Lower extremity edema R60.0 ; Symptomatic varicose veins of both lower extremities I83.893 and Left foot pain M79.[address] [address] 12/08/2024 Renuka Perica Atherosclerosis of [place] artery of both lower extremities, with unspecified presence of clinical manifestation I70.203 and Xerosis of skin L85.[address] [address] 08/24/2024 Renuka Perica [address] [address] 10/27/2024 Renuka Freedom Assessments Encounter Date Diagnosis (ICD Code) Assessment Notes Treatment Notes Treatment Clinical Notes Section Notes 10/27/2024 Xerosis of skin (ICD-10 - L85.3) 10/27/2024 Atherosclerosis of [place] artery of both lower extremities, with unspecified presence of clinical manifestation (ICD-10 - I70.203) Q7(A), Q8(2B), Q9(1B,2C) 12/08/2024 Xerosis of skin (ICD-10 - L85.3) 12/08/2024 Atherosclerosis of [place] artery of both lower extremities, with unspecified [...] pain (ICD-10 - M79.672) Plan Of Treatment No Information Insurance Providers Payer Name Payer Address Payer Phone Subscriber Number Group Number Insured Name Patient Relationship to Insured Coverage Start Date Coverage End Date [facility] [id number] [place] [id number] [id number] Yasmeen Andrews Self - patient is the insured Medical (General) History Medical History History ICD Code Anxiety Cataracts High Blood Pressure Lung disease Reflux ( GERD) Surgical History Surgery Date(Month/Year) partial hysterectomy 1973 appendectomy 1964 Hospitalization History Reason Date(Month/Year) C- short of breath 09/2024
[2025-01-27 12:35] LABS: Alanine Aminotransferase 14 U/L (0-31); Albumin Level 4.5 g/dL (3.5-5.0); Alkaline Phosphatase 148 U/L (39-117); Anion Gap 16 (12-20); Aspartate Amino Transferase 30 U/L (5-31); Blood Urea Nitrogen 25 mg/dL (9-16); Calcium 9.4 mg/dL (8.4-10.2); Carbon Dioxide 33 mmol/L (22-29); Chloride 100 mmol/L (96-108); Cholesterol 127 mg/dL (<200); Estimated Glomerular Filt Rate 47; HDL Cholesterol 55 mg/dL (>40); Potassium 3.7 mmol/L (3.3-5.1); Sodium 145 mmol/L (135-145); Total Protein 7.0 g/dL (6.5-8.0); Triglycerides 59 mg/dL (<150)
[2025-01-27 12:58] LABS: Folate 14.8 ng/mL (> or = 4.0); Vitamin B12 > 2000 pg/mL (200-900)
== END 2025-01-27 09:31 | disposition home or self-care (01) ==
LOC: HO.HVNA 09:30
PROVIDERS: Visit Provider Internal Medicine
DX: I50.32 Chronic diastolic (congestive) heart failure (principal); E55.9 Vitamin D deficiency, unspecified; E53.8 Deficiency of other specified B group vitamins
CPT/HCPCS: 36415; 80053; 80061; 82306; 82607; 82746; 83880; 85025

== ENCOUNTER 2025-02-04 13:07 | Outpatient (AMB) | payer MEDICARE, SELFPAY ==
--- OUTSIDE RECORDS SUMMARY | 2025-02-04 13:10 | XMS_ITS | Patient Health Record ---
Author Organization [facility] Address [address] [place] [address] Care Team Providers Care C Architect Name Role Phone Parul Cartagena Primary Care Provider Unavailab Mick Quiroz Unavailable [phone] Reason For Referral No Information Medications Medication [...] Problem Status W/U Status Risk Notes Problem [id number] Encounter for screening for malignant neoplasm of colon (Z12.11) Active confirmed Problem Encounter for screening for malignant neoplasm of rectum (Z12.12) Active confirmed Problem 15497111 Abdominal pain, epigastric (R10.13) Active confirmed Problem [id number] Gastroesophageal reflux disease, esophagitis presence not specified (K21.9) Active confirmed Plan Of Treatment Future Test Test Name Order Date UPPER GI ENDOSCOPY 07/20/2016 COLONOSCOPY 07/20/2016 Insurance Providers Payer Name Payer Address Payer Phone Subscriber Number Group Number Insured Name Patient Relationship to Insured Coverage Start Date Coverage End Date [employer] [address] [place] [phone] [id number] LAZARO PAULSON Self - patient is the insured Medical (General) History Medical History History ICD Code Hypertension COPD Denies [place],DM,CVA,renal disease GERD Neg. Hemoccults in 05/2016--she does the m yearly Chest pain 07/2016--having a cardiac w/u with Dr. Reilly--ETT and Cardiac ECHO Surgical History Surgery Date(Month/Year) Hysterectomy and removal of 1 ovary 1980 Tonsils/adenoids
--- OUTSIDE RECORDS SUMMARY | 2025-02-04 13:10 | XMS_ITS | Encounter Summary ---
Author Organization [facility] Address [address] [place] [address] Care Team Providers Care Front Office Associate Name Role Phone Louis Velazco MD Primary Care Provider [phone] Encounter Details Date Type Department Care Team (Late st Contact Info) Description 11/06/2024 Lab Requisition [facility] - Main Lab [address] [facility] [place] [address] Louis Velazco MD [address] [place] [phone] Acute systolic (congestive) heart failure (CMS/HCC [...] mmol/L LAB CHEMISTRY METHOD 11/06/2024 11:54 AM [facility] Potassium 3.6 3.5 - 5.5 mmol/L LAB CHEMISTRY METHOD 11/06/2024 11:54 AM [facility] Chloride 94(L) 96 - 110 mmol/L LAB CHEMISTRY METHOD 11/06/2024 11:54 AM [facility] CO2 32 21 - 32 mmol/L LAB CHEMISTRY METHOD 11/06/2024 11:54 AM [facility] Anion Gap 9 3 - 11 LAB CHEMISTRY METHOD 11/06/2024 11:54 AM [facility] Glucose 95 70 - 100 mg/dL LAB CHEMISTRY METHOD 11/06/2024 11:54 AM [facility] BUN 43(H) 5 - 25 mg/dL LAB CHEMISTRY METHOD 11/06/2024 11:54 AM [facility] Creatinine 1.09 0.50 - 1.10 mg/dL LAB CHEMISTRY METHOD 11/06/2024 11:54 AM [facility] eGFR 51(L) >=60 mL/min/1. 73m2 LAB CHEMISTRY METHOD 11/06/2024 11:54 AM [facility] Comment:Calculation based on the Chronic Kidney Disease Epidemiology Collaboration (CKD-EPI) equation refit without adjustment for race. BUN/Creatinine Ratio 39.4 LAB CHEMISTRY METHOD 11/06/2024 11:54 AM [facility] Calcium 8.8 8.5 - 10.5 mg/dL LAB CHEMISTRY METHOD 11/06/2024 11:54 AM [facility] AST (SGOT) 301(H) 10 - 42 unit/L LAB CHEMISTRY METHOD 11/06/2024 11:54 AM [facility] Comment:Results verified by repeat testing ALT (SGPT) 348(H) 10 - 60 unit/L LAB CHEMISTRY METHOD 11/06/2024 11:54 AM T [facility] Comment:Results verified by repeat testing Alkaline Phosphatase 170(H) 42 - 121 unit/L LAB CHEMISTRY METHOD 11/06/2024 11:54 AM [facility] Total Protein 5.8(L) 6.0 - 8.0 g/dL LAB CHEMISTRY METHOD 11/06/2024 11:54 AM [facility] Albumin 3.5 3.2 - 5.0 g/dL LAB CHEMISTRY METHOD 11/06/2024 11:54 AM [facility] Total Bilirubin 1.1 0.0 - 1.4 mg/dL LAB CHEMISTRY METHOD 11/06/2024 11:54 AM [facility] Blood Venous blood specimen / Unknown Venipuncture / Unknown 11/06/2024 5:13 AM EDT 11/06/2024 10:04 AM EDT us Louis Velazco MD LAB BLOOD ORDERABLES Final Resu lt [facility] [address] [place] [address], * (ABNORMAL) Complete blood count (11/06/2024 5:13 AM EDT) WBC 12.7(H) 4.8 - 10.8 K/[facility] LAB HEMETOLOGY METHOD 11/06/2024 10:49 AM EDT [facility] RBC 3.60(L) 3.80 - 4.80 M/[facility] LAB HEMETOLOGY METHOD 11/06/2024 10:49 AM EDT [facility] Hemoglobin 9.2(L) 11.5 - 16.0 g/dL LAB HEMETOLOGY METHOD 11/06/2024 10:49 AM EDT [facility] Hematocrit 30.9(L) 35.0 - 47.0 % LAB HEMETOLOGY METHOD 11/06/2024 10:49 AM EDT [facility] MCV 84.9 79.0 - 98.0 FL LAB HEMETOLOGY METHOD 11/06/2024 10:49 AM EDT [facility] MCH 25.3(L) 27.0 - 32.0 pcg LAB HEMETOLOGY METHOD 11/06/2024 10:49 AM EDT [facility] MCHC 29.8(L) 32.0 - 37.0 g/dL LAB HEMETOLOGY METHOD 11/06/2024 10:49 AM EDT [facility] RDW 16.9(H) 11.0 - 15.0 % LAB HEMETOLOGY METHOD 11/06/2024 10:49 AM EDT [facility] Platelets 202 130 - 400 K/mcL LAB HEMETOLOGY METHOD 11/06/2024 10:49 AM EDT [facility] MPV 10.6 7.0 - 11.0 FL LAB HEMETOLOGY METHOD 11/06/2024 10:49 AM EDT [facility] NRBC 0.4 <1.0 % LAB HEMETOLOGY METHOD 11/06/2024 10:49 AM [facility] NRBC Absolute 0.05 <0.10 K/mcL LAB HEMETOLOGY METHOD 11/06/2024 10:49 AM EDT [facility] Blood Venous blood specimen / Unknown Venipuncture / Unknown 11/06/2024 5:13 AM EDT 11/06/2024 10:04 AM EDT us Louis Velazco MD LAB BLOOD ORDERABLES Final Resu lt [facility] [address] [place] [address], documented in this encounter Visit Diagnoses Diagnosis Acute systolic (congestive) heart failure ([facility] V24, [facility] V28) Chronic obstructive pulmonary disease with (acute) exacerbation ([facility] V24, [facility] V28) documented in this encounter Care Teams Front Office Associate Relationship Specialty Start Date End Date Louis Velazco MD [address] [place] [address] PCP - General Internal Medicine 11/06/24 documented as of this encounter
--- OUTSIDE RECORDS SUMMARY | 2025-02-04 13:10 | XMS_ITS | Patient Health Record ---
[facility] Organization [facility] [place] Address [address] [place] [address] Care Team Providers Care Test Operator Name Role Phone Parul Crystal MD Primary Care Provider Unavail able Renuka Loja Unavailable [phone] Allergies Allergen (clinical drug ingredient) Drug/Non Drug Allergy documented on EMR Reaction Allergy Type Onset Date Status sulfamethoxazole / trimethoprim Bactrim Unknown Drug Allergy Active Reason For Referral Diagnosis 1 Pain in unspecified foot (M79.673) Referring Provider First Name Parul Referring Provider Last Name Bonilla Referred Organization [facility] Jarett Referred Provider Renuka Loja Referred Address [address] [place], [place],[address], Referred Provider Specialty Podiatry Referral Priority Routine [...] atherosclerosis of arteries of lower limbs (disorder) (93839933579607758 ) Atherosclerosis of [place] artery of both lower extremities, with unspecified presence of clinical manifestation (I70.203) Active confirmed Q7(A), Q8(2B), Q9(1B,2 C) Problem Ischemic ulcer o f left foot, limited to breakdown of skin (L97.521) Active confirmed Problem Varicose veins of bilateral lower limbs (67169589141534323 ) Symptomatic varicose veins of both lower extremities (I83.893) Active confirmed Vital Signs Blood pressure diastolic 60 mm Hg 12/08/2024 Height 5ft3in in 12/08/2024 Blood pressure systolic 130 mm Hg 12/08/2024 Weight 115 lbs 12/08/2024 BMI 20.37 kg/m2 12/08/2024 Encounters Encounter Location Date Provider Diagnosis [address] [address] 10/27/2024 Renuka Perica Atherosclerosis of [place] artery of both lower extremities, with unspecified presence of clinical manifestation I70.203 ; Xerosis of skin L85.3 ; Pain in left toe(s) M79.675 ; Skin fissure R23.4 ; Ischemic ulcer of left foot, limited to breakdown of skin L97.521 ; Lower extremity edema R60.0 ; Symptomatic varicose veins of both lower extremities I83.893 and Left foot pain M79.[address] [address] 12/08/2024 Renuka Perica Atherosclerosis of [place] artery of both lower extremities, with unspecified presence of clinical manifestation I70.203 and Xerosis of skin L85.[address] [address] 08/24/2024 Renuka Perica [address] [address] 10/27/2024 Renuka Freedom Assessments Encounter Date Diagnosis (ICD Code) Assessment Notes Treatment Notes Treatment Clinical Notes Section Notes 10/27/2024 Xerosis of skin (ICD-10 - L85.3) 10/27/2024 Atherosclerosis of [place] artery of both lower extremities, with unspecified presence of clinical manifestation (ICD-10 - I70.203) Q7(A), Q8(2B), Q9(1B,2C) 12/08/2024 Xerosis of skin (ICD-10 - L85.3) 12/08/2024 Atherosclerosis of [place] artery of both lower extremities, with unspecified [...] Insured Coverage Start Date Coverage End Date [facility] [id number] [place] [id number] Yasmeen Andrews Self - patient is the insured Medical (General) History Medical History History ICD Code Anxiety Cataracts High Blood Pressure Lung disease Reflux ( GERD) Surgical History Surgery Date(Month/Year) partial hysterectomy 1973 appendectomy 1964 Hospitalization History Reason Date(Month/Year) C- short of breath 09/2024
--- NOTE | 2025-02-04 13:13 | MHC.OFFVIS ---
Vital Signs 02/04/25 13:21 Height 5 ft 4 in Weight 111 lb 15.917 oz BMI 19.2 BP 120/57 L Blood Pressure Location Lt brachial Position Sitting Pulse 90 Pulse Source Pulse Oximeter Intake Visit Reasons: 2 month f/up r/s 02-12-25 Intake Note: 2 mth f/up Cash On Delivery Clerk Required: No Accompanied by: Daughter Allergies Sulfa (Sulfonamide Antibiotics) Allergy (Intermediate, Verified 12/02/24 13:19) nausea, vomiting Medication List - Last Reconciled 02/04/25 by Chino Dubose NP ammonium lactate 12% 1 appl topical DAILY PRN apixaban (Eliquis) 5 mg PO BID 90 days cholecalciferol (vitamin D3) 50 mcg PO DAILY 90 days cimetidine 400 mg PO BID 30 days compr.stocking,knee,long,small As directed cyanocobalamin (vitamin B-12) (Vitamin B-12) 100 mcg PO DAILY fluticasone furoate-vilanterol 200-25 mcg/dose (Breo Ellipta) 1 inh inhalation DAILY folic acid 0.8 mg PO DAILY gabapentin 100 mg PO TID PRN levalbuterol HCl 1.25 mg (3 mL) inhalation Q4-6H PRN 30 days levalbuterol tartrate 45 mcg/actuation 2 puffs inhalation Q4-6H PRN 30 days lorazepam 0.5 mg PO Q8H PRN 30 days magnesium oxide 400 mg PO BIDPC 90 days metoprolol succinate ER 50 mg PO DAILY 90 days pantoprazole 40 mg PO DAILY@0630 90 days potassium chloride 20 mEq (15 mL) PO DAILY rosuvastatin 2.5 mg PO BEDTIME tiotropium bromide 2.5 mcg/actuation (Spiriva Respimat) 2 puffs inhalation DAILY 30 days torsemide 40 mg See Protocol PO BID trolamine salicylate 10% (Aspercreme) 1 appl topical DAILY PRN zolpidem 5 mg PO BEDTIME PRN 30 days HPI Comments Details: This is an 79-year-old female patient coming in for a follow-up appointment. Patient with a history of COPD on 2 L home O2, hypertension, hyperlipidemia, diastolic heart failure, and paroxysmal AFib which is now mostly persistent. Back in October when patient was in the hospital for heart failure and AFib, patient was noted to be in persistent AFib and therefore underwent cardioversion with successful conversion to sinus rhythm. Patient was started on flecainide but could not tolerate it due to bradycardia and was switched back to metoprolol 50 mg daily. Patient was back in AFib last month when she saw Dr. Corral. At that time she continued to complain of shortness of breath and feeling fatigued. Today, patient reports continuing to feel fatigued and and now getting short of breath with any minimal exertion. Patient sometimes has to put up her oxygen up to 3 L when doing home chores. Patient is denying any symptoms of exertional chest pain, palpitations, dizziness, orthopnea, PND, leg edema, presyncope, or syncope. Patient denies any changes in medications and reports that she is compliant with all her medications. [facility] Medical History COPD (chronic obstructive pulmonary disease) Supplemental oxygen dependent Atrial fibrillation CHF (congestive heart failure) Persistent atrial fibrillation Cardiomyopathy COPD (chronic obstructive pulmonary disease) Respiratory failure with hypoxia Hypertension CHF (congestive heart failure) PAF (paroxysmal atrial fibrillation) Congestive heart failure Atrial fibrillation with rapid ventricular response Congestive heart failure Acute hypoxemic respiratory failure Encounter for cardioversion procedure Atrial fibrillation with RVR Acute exacerbation of congestive heart failure Acute on chronic hypoxic respiratory failure Acute HFrEF (heart failure with reduced ejection fraction) Chronic lung disease Skin lesion Dyslipidemia Cough due to DAISY inhibitor Neck pain GERD (gastroesophageal reflux disease) Aortic regurgitation Right hand pain Leg edema Allergic rhinitis Anxiety Surgical History Carpal tunnel syndrome, right History of bilateral cataract extraction History of partial hysterectomy Family History Father Medical history unknown Mother Medical history unknown Social History Household Members: None Housing: House Are you a primary pediatric critical care nurse to a significant other at home: No Do you presently have visiting nurse or other home services: No Alcohol intake: current Alcohol intake frequency: a few times a week Alcohol type: other Comment: 1:[address] Patient Tobacco Use Status: Former Tobacco user Tobacco use type: Cigarette e-Cigarette/Vaping Use: Never Used Second Hand Smoke Exposure: No Advance Directives Date on File: 08/25/20 service: No Current occupational status: retired Cognitive needs: No Hearing needs: No Vision needs: No Review of Systems Const Denies chills, Denies fatigue, Denies fever(s), Denies frequent falls, Denies weakness, Denies weight gain and Denies weight loss ENT Denies dizziness Card Denies chest pain, Denies leg edema, Denies lightheadedness, Denies palpitations, Denies dyspnea and Denies dyspnea on exertion Resp Denies cough, Denies dyspnea and Denies dyspnea on exertion GI Denies hematochezia Musc Denies abnormal gait, Denies muscle weakness, Denies numbness, Denies radiating pain into limb and Denies tingling Neuro Denies abnormal gait, Denies dizziness, Denies frequent falls, Denies numbness, Denies tingling and Denies weakness Endo Denies fatigue and Denies palpitations Physical Exam Vital Signs: Last Vital Signs Pulse 90 02/04/25 13:21 BP 120/57 L 02/04/25 13:21 BMI result Body Mass Index 19.2 Const General: cooperative, comfortable and no acute distress Orientation/consciousness: patient oriented x3 HEENT Head: Yes normal to inspection Neck Neck: Yes normal visual inspection, Yes trachea midline and Yes supple Chest Chest palpation & inspection: normal inspection of the chest Resp Other: On 2 L nasal cannula Effort & Inspection: normal respiratory effort Auscultation: clear to auscultation bilaterally, no crackles, no rales, no rhonchi and no wheezes Cardio Jugular venous distension: no JVD Palpation: normal PMI Rate: regular rate Rhythm: abnormal rhythm irregularly irregular Heart sounds: S1 normal heart sound present, S2 normal heart sound present, no click, no gallops, no murmurs and no rubs Peripheral pulses: Peripheral pulses 2+ throughout GI Inspection: Yes normal to inspection Palpation (GI): Soft to palpation Auscultation: normal bowel sounds Skin General skin exam: no rashes or lesions noted Neuro General: patient oriented x3 Extrem General: Yes normal to inspection, No no pedal edema and No calf tenderness Psych Appearance: grossly normal Mental Status: mental status grossly normal Speech and movement: Normal speech and movement present Office Procedures EKG Details: EKG today shows AFib, rate 81 beats per minute, right superior axis deviation, pulmonary disease pattern, right ventricular hypertrophy, nonspecific T-wave changes, [place] infar[place], [place] [id number], Complete Assessment & Plan Assessment & Plan (1) Afib: Code(s): I48.91 - Unspecified atrial fibrillation Category: Medical Plan: EKG today shows AFib with controlled rate. Given her multiple comorbidities, her shortness of breath could be multifaceted including AFib and the COPD. Previously there was discussion with Dr. Corral about try short term amiodarone to see if she can maintain sinus rhythm and if her symptoms improve. Short term because of her significant existing lung disease and patient understands that if on this medication long-term then she may worsening lung issues. Although unsure if patient is a good candidate for catheter ablation, this was also discussed to avoid the long-term use of amiodarone, but is if patient had significant improvement in symptoms with rhythm control. Discussed in detail about all these options again with the patient. We will start patient on amiodarone therapy and bring patient back in a week for an EKG. We will monitor labs while on this. Continue Eliquis therapy for full anticoagulation. No reported symptoms of bleeding or falls. (2) Chronic diastolic heart failure: Code(s): I50.32 - Chronic diastolic (congestive) heart failure Category: Medical Plan: 10/14/2024-echo study showed normal LV systolic function with an ejection fraction between 60-65%, moderate biatrial enlargement, mild mitral and aortic regurgitation, severely elevated RV systolic pressure with mildly elevated RA pressure. Clinically euvolemic. Patient is very frail looking and states that she has been losing weight on the current dose of torsemide. Advised on a trial of 40 mg daily instead of b.i.d. to see how patient feels. Recommended going back on 40 b.i.d. in case of gets shortness of breath and leg swelling. Advised to continue with a low-salt diet, fluid restriction, and daily weight monitoring. (3) Hypertension: Code(s): I10 - Essential (primary) hypertension Category: Medical Qualifiers: Hypertension type: essential hypertension Qualified Code(s): I10 - Essential (primary) hypertension Plan: Blood pressure is stable. Continue current regimen. Advised monitoring blood pressures at home with a goal less than 130/80. Advised heart healthy diet, avoiding caffeinated beverages, regular exercise as tolerated, and med compliance. I will discuss with Dr. Ellis upon his return from vacation in regards to this case. If any changes, I will make an addendum to this note. We will bring patient in 1 week for an EKG followed by an office visit in a month. In the interim, patient will call the office with any concerns or change in symptoms. This note was generated using voice recognition software. While every effort has been made to ensure accuracy and proper telecommunications specialist, there may be occasional errors that could affect the content or meaning of the described symptoms. Orders: Orders Basic Metabolic Panel 1 Month I48.91 - Unspecified atrial fibrillation AMB EKG-In Office 02/04/25 I48.91 - Unspecified atrial fibrillation TSH reflex Free T4 1 Month I48.91 - Unspecified atrial fibrillation ECG 12 lead EKG 1 Week I48.91 - Unspecified atrial fibrillation Medications: New amiodarone 400 mg twice a day for two weeks followed by 200 mg daily 200 mg PO BID 60 tabs 0RF Coding Level of Care Code Est Pt Level 5 (16715) Complex EM visit Add On G2211 Diagnoses Afib I48.91 Chronic diastolic heart failure I50.32 Essential hypertension I10 Hypertension type: essential hypertension CPT Codes EKG - CPT: 99162-[id number], Complete ([id number]) Time Spent (min) 41 Comment Time spent in reviewing the chart, test results, assessment, counseling and documentation.
[2025-02-04 13:21] VITALS: BP 120/57; PULSE 90; BMI 19.2
== END 2025-02-04 14:11 | disposition home or self-care (01) ==
LOC: HO.HCS 13:07
PROVIDERS: PCP Internal Medicine
DX: I48.91 Unspecified atrial fibrillation (principal); I11.0 Hypertensive heart disease with heart failure; I50.32 Chronic diastolic (congestive) heart failure
CPT/HCPCS: 99215; G2211

== ENCOUNTER → 2025-02-04 13:07 | Outpatient (BNVA) | payer MEDICARE, SELFPAY | PROVIDERS: PCP Internal Medicine | DX: I10 Essential (primary) hypertension (principal); I50.32 Chronic diastolic (congestive) heart failure; I48.91 Unspecified atrial fibrillation | CPT/HCPCS: 93005; 99212 ==

== ENCOUNTER 2025-02-07 20:39 | Inpatient (IN) | payer MEDICARE, SELFPAY ==
--- NOTE | ~2025-02-07 | XR_ITS ---
CLINICAL HISTORY: weakness 2 view chest x-ray Comparison: CR/IL/SR - XR CHEST 2 VIEWS - 10/30/24 16:00 EDT Findings: No consolidation or effusion. Diffuse interstitial markings with hyperinflation, consistent with emphysema. Heart size is normal. No acute fracture. IMPRESSION: 1. No acute findings. 2. Moderate emphysema. This document has been electronically signed by: Evy Awan MD on 02/07/2025 21:47:06
[2025-02-07 20:44] VITALS: BP 133/58; PULSE 82; RESP 22; TEMP 36.6; O2SAT 89; BMI 19.1
--- NOTE | 2025-02-07 20:51 | ED.GENADULT ---
HPI - General Adult General Chief complaint: Dyspnea Stated complaint: weakness, heart problems, on oxygen Time Seen by Provider: 02/08/25 02:22 Source: patient Mode of arrival: ambulatory Limitations: no limitations History of Present Illness ED Provider: Dr. Sofia Taylor HPI narrative: 79-year-old female with extensive past medical history including oxygen-dependent COPD, atrial fibrillation on Eliquis presenting with generalized weakness, increasing shortness of breath ongoing for the last several weeks, worsening over the last couple of days. Admits she was seen by her primary care doctor 4 days ago and had 1 of her medications changed. She was originally taking a diuretic 3 times a day and that was decreased to once a day. States that since that time she has become progressively more short of breath. No changes in her chronic cough with clear/yellow sputum production. No reported fever. No changes in her bowel habits. Denies vomiting. Eating and drinking normally. Denies hematochezia or melena. No abdominal pain. Denies associated chest pain. Related Data Home Medications ?Medication ?Instructions ?Recorded ?Confirmed gabapentin 100 mg capsule 100 mg PO BEDTIME PRN Pain 09/07/24 02/08/25 rosuvastatin 5 mg tablet 2.5 mg PO BEDTIME 09/07/24 02/08/25 folic acid 800 mcg tablet 0.8 mg PO DAILY 10/21/24 02/08/25 amiodarone 200 mg tablet 400 mg PO BID 02/08/25 02/08/25 lorazepam 0.5 mg tablet 0.5 mg PO BID anxiety 02/08/25 02/08/25 melatonin 5 mg tablet 15 mg PO BEDTIME PRN INSOMMIA 02/08/25 02/08/25 torsemide 20 mg tablet 40 mg PO DAILY 02/08/25 02/08/25 Previous Rx's ?Medication ?Instructions ?Recorded compr.stocking,knee,long,small #2 ea 01/08/24 tiotropium bromide 2.5 2 puff inhalation DAILY copd, 30 06/01/24 mcg/actuation mist for inhalation days #4 grams (Spiriva Respimat) levalbuterol tartrate 45 2 puff inhalation Q4-6H PRN 10/09/24 mcg/actuation aerosol inhaler shortness of breath 30 days #15 grams fluticasone furoate 200 1 inh inhalation DAILY #60 ea 10/28/24 mcg-vilanterol 25 mcg/dose inhalation powder (Breo Ellipta) pantoprazole 40 mg tablet,delayed 40 mg PO DAILY@0630 90 days #90 11/01/24 release tabs cholecalciferol (vitamin D3) 50 50 mcg PO DAILY 90 days #90 caps 11/30/24 mcg (2,000 unit) capsule metoprolol succinate 50 mg 50 mg PO DAILY 90 days #90 tabs 12/04/24 tablet,extended release 24 hr potassium chloride 20 mEq/15 mL 20 meq (15 mL) PO DAILY #1,500 mL 12/11/24 oral liquid apixaban 5 mg tablet (Eliquis) 5 mg PO BID 90 days #180 tabs 12/13/24 levalbuterol HCl 1.25 mg/3 mL 1.25 mg (3 mL) inhalation Q4-6H 01/13/25 solution for nebulization PRN shortness of breath or wheezing 30 days #90 mL magnesium oxide 400 mg (241.3 mg 400 mg PO BIDPC 90 days #180 tabs 01/25/25 magnesium) tablet Allergies Allergy/AdvReac Type Severity Reaction Status Date / Time Sulfa (Sulfonamide Allergy Intermediate nausea, Verified 02/07/25 20:50 Antibiotics) vomiting Review of Systems Review of Systems: As per HPI, full review of systems performed and negative but for the above mentioned pertinent positives and negatives. [facility] Past Medical History Attestation statement: The following information was validated with the patient. [facility] Narrative: Oxygen-dependent COPD, atrial fibrillation on Eliquis, former smoker Medical History COPD (chronic obstructive pulmonary disease) Supplemental oxygen dependent Atrial fibrillation CHF (congestive heart failure) Persistent atrial fibrillation Cardiomyopathy COPD (chronic obstructive pulmonary disease) Respiratory failure with hypoxia Hypertension CHF (congestive heart failure) PAF (paroxysmal atrial fibrillation) Congestive heart failure Atrial fibrillation with rapid ventricular response Congestive heart failure Acute hypoxemic respiratory failure Encounter for cardioversion procedure Atrial fibrillation with RVR Acute exacerbation of congestive heart failure Acute on chronic hypoxic respiratory failure Acute HFrEF (heart failure with reduced ejection fraction) Chronic lung disease Skin lesion Dyslipidemia Cough due to DAISY inhibitor Neck pain GERD (gastroesophageal reflux disease) Aortic regurgitation Right hand pain Leg edema Allergic rhinitis Anxiety Surgical History Carpal tunnel syndrome, right History of bilateral cataract extraction History of partial hysterectomy Family History Family History Father Medical history unknown Mother Medical history unknown Social History Social History Household Members: None Housing: House Are you a primary health care recruiter to a significant other at home: No Do you presently have visiting nurse or other home services: No Alcohol intake: current Alcohol intake frequency: a few times a week Alcohol type: other Comment: 1:[address] Patient Tobacco Use Status: Former Tobacco user Tobacco use type: Cigarette e-Cigarette/Vaping Use: Never Used Second Hand Smoke Exposure: No Advance Directives: Yes Advance Directives on File: Yes Advance Directives Date on File: 10/30/24 Do you have a plan to hurt others: No Plan service: No Current occupational status: retired Cognitive needs: No Hearing needs: No Vision needs: No Physical Exam ED Exam Exam: GENERAL: Ill-appearing, chronically ill-appearing, mild respiratory distress. SKIN: Normal skin color for ethnicity, warm, dry, no rashes noted. HEENT: Normocephalic, atraumatic, no stridor, EOMI. NECK: Soft, supple, full ROM, midline structures nontender, no step-offs, no deformities, no lymphadenopathy. CHEST: Heart regular rhythm, barrel chest, symmetric chest rise and fall. PULMONARY: Diffuse, faint, wheezes throughout, tachypnea, diminished air movement, bilaterally R>L, mild respiratory distress. ABDOMINAL: Soft,nontender, quiet bowel sounds in all quadrants. : No palpable hemorrhoids, light brown stool, guaiac positive CARIE. MUSCULOSKELETAL: Normal tone, full range of motion, no deformities, no peripheral edema. NEURO: Alert and oriented to person, CN II through XII intact, no focal neurologic deficits. PSYCHIATRIC: Anxious affect, appropriate demeanor. Vital Signs: Vital Signs - 24 hr 02/07/25 20:44 02/07/25 22:54 Temperature 97.8 F Pulse Rate 82 92 Respiratory Rate 22 H 21 H Blood Pressure 133/58 L 127/58 L Pulse Oximetry 89 L 99 Oxygen Delivery Method Nasal Cannula Nasal Cannula Oxygen Flow Rate 2 BMI result Body Mass Index 19.1 Course Course Course Narrative: Rapid medical examination performed in triage by Gavi Ross PA-C. Patient is an 79 year old assigned female at presenting to the emergency department with shortness of breath and fatigue. Detailed physical exam and review of systems are deferred to the [place]. EKG, labs, imaging, and swabs ordered. Patient placed back in the waiting room pending room availability and results. Medications Administered Generic Name Dose Route Start Last Admin Trade Name Freq PRN Reason Stop Dose Admin Amiodarone HCl 400 mg 02/08/25 10:30 02/08/25 11:04 Amiodarone Hcl 200 Mg Tablet PO 400 mg BID MARIA D Administration Guaifenesin 600 mg 02/08/25 05:42 02/08/25 05:55 Guaifenesin La 600 Mg Tab.Er.12h PO 600 mg BID PRN Administration Cough Lorazepam 0.5 mg 02/08/25 10:30 02/08/25 11:05 Lorazepam 0.5 Mg Tablet PO Not Given BID MARIA D Sodium Chloride 3 ml 02/08/25 08:00 02/08/25 07:35 0.9 % Sodium Chloride Flush 3 Ml Syringe IVFLUSH 3 ml QSHIFT MARIA D Administration Discontinued Medications Generic Name Dose Route Start Last Admin Trade Name Freq PRN Reason Stop Dose Admin Lorazepam 0.5 mg 02/08/25 05:41 02/08/25 05:55 Lorazepam 0.5 Mg Tablet PO 02/08/25 05:42 0.5 mg ONCE ONE Administration Pantoprazole Sodium 80 mg 02/08/25 05:34 02/08/25 05:57 Pantoprazole Sodium 40 Mg/10 Ml Vial IVPUSH 02/08/25 05:35 80 mg ONCE ONE Administration Medical Decision Making Medical Decision Making [facility] Narrative: Patient presents today with chief complaint of shortness of breath. Differential diagnosis includes, but is not limited to, upper respiratory infection, pneumonia, COPD exacerbation, asthma exacerbation, CHF, pneumothorax, pleural effusion, pulmonary embolism, ACS, symptomatic anemia, electrolyte abnormality, kidney dysfunction, among many others. Broad-based work-up will be initiated to evaluate for etiology of patient's symptoms. Patient found to be more anemic than previous. She has been steadily drifting down over the last several months. She is on Eliquis. No abdominal pain. No significant bleeding on digital rectal exam though she is guaiac positive. Plan for admission to hospitalist for further care and evaluation of symptomatic anemia. Admitted in guarded condition. Differential Diagnosis Differential Diagnoses: The differential diagnosis associated with the presentation includes (As above) Admission/Observation Consideration of admission/observation: Escalation of care including admission/observation considered Consult Healthcare Provider Management of the patient was discussed with: Hospitalist Lab Data MDM Lab Attestation statement: I reviewed the patient's lab results. Worsening anemia, chronic renal insufficiency 02/08/25 04:29 02/07/25 21:10 Labs: Lab Results 02/07/25 02/08/25 Range/Units 21:10 02:59 WBC 8.9 (4.8-10.8) X10*3/uL RBC 3.71 L (4.20-5.50) X10*6/uL Hgb 8.4 L (12.0-16.0) g/dl Hct 27.7 L (37.0-47.0) % MCV 74.7 L (80.0-98.0) fL MCH 22.6 L (27.0-33.0) pg MCHC 30.3 L (31.0-35.0) g/dl RDW 17.8 H (11.0-16.0) % Plt Count 230 (160-400) X10*3/uL MPV 9.6 (9.4-12.3) fL Immature Gran % (Auto) 0.5 H (0.0-0.4) % Neut % (Auto) 80.8 H (45-73) % Lymph % (Auto) 9.0 L (20-40) % Haines % (Auto) 8.2 (2-11) % Eos % (Auto) 0.8 (0-4) % Baso % (Auto) 0.7 (0-2) % Lymph # (Auto) 0.8 L (1.2-4.9) X10*3/uL Haines # (Auto) 0.7 (0.1-1.2) X10*3/uL Eos # (Auto) 0.1 (0.0-0.4) X10*3/uL Baso # (Auto) 0.1 (0.0-0.2) X10*3/uL Abs Immat Gran (auto) 0.04 H (0.00-0.03) X10*3/uL Absolute Neuts (auto) 7.2 (2.0-8.3) x10*3/uL Absolute Nucleated RBC 0.060 H (0.0-0.012) X10*3/uL Nucleated RBC % (auto) 0.7 H (0.0-0.2) /100WBC PT 40.1 H D (10.9-12.4) SEC INR 3.5 H (0.9-1.1) Sodium 139 (135-145) mmol/L Potassium 3.9 (3.3-5.1) mmol/L Chloride 101 (96-108) mmol/L Carbon Dioxide 23 (22-29) mmol/L Anion Gap 19 (12-20) BUN 36 H (9-16) mg/dL Creatinine 1.40 (0.5-1.4) mg/dL Estim Creat Clear Calc 25.4 Estimated GFR 36 Random Glucose 115 (60-115) mg/dL Calcium 9.1 (8.4-10.2) mg/dL Magnesium 2.1 (1.6-2.6) mg/dL Iron 11 L (30-160) mcg/dL TIBC 422 (228-428) mcg/dL % Saturation 3 L (15-50) % Unsat Iron Binding 411 ug/dL Total Bilirubin 0.9 (0.0-1.0) mg/dL AST 32 H (5-31) U/L ALT 15 (0-31) U/L Alkaline Phosphatase 148 H (39-117) U/L Troponin I High Sens 18.3 H (<3.5-17.0) ng/L Total Protein 6.8 (6.5-8.0) g/dL Albumin 4.3 (3.5-5.0) g/dL Stool Occult Blood POSITIVE (NEGATIVE) Influenza Type A (PCR) NEGATIVE (Negative) Influenza Type B (PCR) NEGATIVE (Negative) RSV RNA Qual (PCR) NEGATIVE (Negative) SARS-CoV-2 RNA (RT-PCR) NEGATIVE (Negative) Independent Interpretation I performed an independent interpretation of an: Plain X-Ray Interpretation: My independent interpretation of the chest x-ray reveals no consolidations, pulmonary edema, pleural effusion, pneumothorax, obvious bony abnormalities. Radiology Impression Discussion of test interpretation with radiology: I have reviewed the radiologist's reading. External Record Review External record reviewed: Inpatient record Chronic Conditions Patient?s care impacted by: Hypertension and Other (Oxygen-dependent COPD, atrial fibrillation on Eliquis) Discharge Plan Discharge Clinical Impression: Symptomatic anemia, Acute dyspnea, On continuous oral anticoagulation Patient Disposition: Admitted As Inpatient
--- NOTE | 2025-02-07 20:52 | ECG_ITS ---
Test Reason : WEAKNESS Blood Pressure : */* mmHG Vent. Rate : 84 BPM Atrial Rate : * BPM P-R Int : * ms QRS Dur : 96 ms QT Int : 416 ms P-R-T Axes : * -84 79 degrees QTcB Int : 491 ms Atrial fibrillation Incomplete right bundle branch block Left anterior fascicular block Nonspecific ST and T wave abnormality Abnormal ECG When compared with ECG of 02-Nov-2024 15:33, Atrial fibrillation has replaced Sinus rhythm T wave inversion no longer evident in Anterolateral leads Referred By: Gavi Ross Electronically Signed By: Basilio Corral
--- OUTSIDE RECORDS SUMMARY | 2025-02-07 21:07 | XMS_ITS | Encounter Summary ---
Author Organization [facility] Address [address] [place] [address] Care Team Providers Care Automobile Accessories Salesperson Name Role Phone Louis Velazco MD Primary Care Provider [phone] Encounter Details Date Type Department Care Team (Late st Contact Info) Description 11/06/[address] [facility] - Main Lab [address] [facility] [place] [address] Louis Velazco MD [address] [place] [id number] Acute systolic (congestive) heart failure (CMS/HCC [...] LAB CHEMISTRY METHOD 11/06/2024 11:54 AM T [facility] Comment:Results verified by repeat testing [...] MD LAB BLOOD ORDERABLES Final Resu lt [facility] [address] [place] [address], * (ABNORMAL) Complete blood count (11/06/2024 5:13 AM EDT) WBC 12.7(H) 4.8 - 10.8 K/[facility] LAB HEMETOLOGY METHOD 11/06/2024 10:49 AM EDT [facility] RBC 3.60(L) 3.80 - 4.80 M/[facility] LAB HEMETOLOGY METHOD 11/06/2024 10:49 AM EDT [facility] Hemoglobin 9.2(L) 11.5 - 16.0 g/dL LAB HEMETOLOGY METHOD 11/06/2024 10:49 AM EDT [facility] Hematocrit 30.9(L) 35.0 - 47.0 % LAB HEMETOLOGY METHOD 11/06/2024 10:49 AM EDT [facility] MCV 84.9 79.0 - 98.0 FL LAB HEMETOLOGY METHOD 11/06/2024 10:49 AM EDT [facility] MCH 25.3(L) 27.0 - 32.0 pcg LAB HEMETOLOGY METHOD 11/06/2024 10:49 AM EDT [facility] MCHC 29.8(L) 32.0 - 37.0 g/dL LAB HEMETOLOGY METHOD 11/06/2024 10:49 AM EDT [facility] RDW 16.9(H) 11.0 - 15.0 % LAB HEMETOLOGY METHOD 11/06/2024 10:49 AM EDT [facility] Platelets 202 130 - 400 K/mcL LAB HEMETOLOGY METHOD 11/06/2024 10:49 AM EDT [facility] MPV 10.6 7.0 - 11.0 FL LAB HEMETOLOGY METHOD 11/06/2024 10:49 AM EDT [facility] NRBC 0.4 <1.0 % LAB HEMETOLOGY METHOD 11/06/2024 10:49 AM [facility] NRBC Absolute 0.05 <0.10 K/mcL LAB HEMETOLOGY METHOD 11/06/2024 10:49 AM EDT [facility] Blood Venous blood specimen / Unknown Venipuncture / Unknown 11/06/2024 5:13 AM EDT 11/06/2024 10:04 AM EDT us Louis Velazco MD LAB BLOOD ORDERABLES Final Resu lt [facility] [address] [place] [address], documented in this encounter Visit Diagnoses Diagnosis Acute systolic (congestive) heart failure ([facility] V24, [facility] V28) Chronic obstructive pulmonary disease with (acute) exacerbation ([facility] V24, [facility] V28) documented in this encounter Care Teams Automobile Accessories Salesperson Relationship Specialty Start Date End Date Louis Velazco MD [address] [place] [address] PCP - General Internal Medicine 11/06/24 documented as of this encounter
--- OUTSIDE RECORDS SUMMARY | 2025-02-07 21:07 | XMS_ITS | Patient Health Record ---
[facility] Address [address] [place] [address] Care Team Providers Care Oncology Research Rn Name Role Phone Parul Crystal MD Primary Care Provider Unavail able Renuka Loja Unavailable [phone] Allergies Allergen (clinical drug ingredient) Drug/Non Drug Allergy documented on EMR Reaction Allergy Type Onset Date Status sulfamethoxazole / trimethoprim Bactrim Unknown Drug Allergy Active Reason For Referral Diagnosis 1 Pain in unspecified foot (M79.673) Referring Provider First Name Parul Referring Provider Last Name Bonilla Referred Organization [facility] Jarett Referred Provider Renuka Loja Referred Address [address] [place], [place],[address], Referred Provider Specialty Podiatry Referral Priority Routine [...] atherosclerosis of arteries of lower limbs (disorder) ([id number] ) Atherosclerosis of [place] artery of both lower extremities, with unspecified presence of clinical manifestation (I70.203) Active confirmed Q7(A), Q8(2B), Q9(1B,2 C) Problem Ischemic ulcer o f left foot, limited to breakdown of skin (L97.521) Active confirmed Problem Varicose veins of bilateral lower limbs (42203055833733931 ) Symptomatic varicose veins of both lower extremities (I83.893) Active confirmed Vital Signs Blood pressure diastolic 60 mm Hg 12/08/2024 Height 5ft3in in 12/08/2024 Blood pressure systolic 130 mm Hg 12/08/2024 Weight 115 lbs 12/08/2024 BMI 20.37 kg/m2 12/08/2024 Encounters Encounter Location Date Provider Diagnosis [address] [address] 10/27/2024 Renuka Perica Atherosclerosis of [place] artery of both lower extremities, with unspecified presence of clinical manifestation I70.203 ; Xerosis of skin L85.3 ; Pain in left toe(s) M79.675 ; Skin fissure R23.4 ; Ischemic ulcer of left foot, limited to breakdown of skin L97.521 ; Lower extremity edema R60.0 ; Symptomatic varicose veins of both lower extremities I83.893 and Left foot pain M79.[address] [address] 12/08/2024 Renuka Perica Atherosclerosis of [place] artery of both lower extremities, with unspecified presence of clinical manifestation I70.203 and Xerosis of skin L85.[address] [address] 08/24/2024 Renuka Perica [address] [address] 10/27/2024 [facility] Encounter Date Diagnosis (ICD Code) Assessment Notes Treatment Notes Treatment Clinical Notes Section Notes 10/27/2024 Xerosis of skin (ICD-10 - L85.3) 10/27/2024 Atherosclerosis of [place] artery of both lower extremities, with unspecified presence of clinical manifestation (ICD-10 - I70.203) Q7(A), Q8(2B), Q9(1B,2C) 12/08/2024 Xerosis of skin (ICD-10 - L85.3) 12/08/2024 Atherosclerosis of [place] artery of both lower extremities, with unspecified [...] Insured Coverage Start Date Coverage End Date [facility] [id number] [place] [phone] [id number] Yasmeen Andrews Self - patient is the insured Medical (General) History Medical History History ICD Code Anxiety Cataracts High Blood Pressure Lung disease Reflux ( GERD) Surgical History Surgery Date(Month/Year) partial hysterectomy 1973 appendectomy 1964 Hospitalization History Reason Date(Month/Year) C- short of breath 09/2024
[2025-02-07 21:15] LABS: MANUAL DIFF FLAG NO
[2025-02-07 21:17] LABS: Hematocrit 27.7 % (37.0-47.0); Hemoglobin 8.4 g/dl (12.0-16.0); Imm Gran Abs Auto 0.04 X10*3/uL (0.00-0.03); Imm Gran Pct Auto 0.5 % (0.0-0.4); Lymphocytes Absolute Auto 0.8 X10*3/uL (1.2-4.9); Mean Corpuscular HGB Conc 30.3 g/dl (31.0-35.0); Mean Corpuscular Hemoglobin 22.6 pg (27.0-33.0); Mean Corpuscular Volume 74.7 fL (80.0-98.0); NRBC Abs Auto 0.060 X10*3/uL (0.0-0.012); NRBC Pct Auto 0.7 /100WBC (0.0-0.2); Platelet Count 230 X10*3/uL (160-400); Red Blood Count 3.71 X10*6/uL (4.20-5.50); White Blood Count 8.9 X10*3/uL (4.8-10.8)
[2025-02-07 21:23] LABS: INTERNATIONAL NORM RATIO 3.5 (0.9-1.1); Prothrombin Time 40.1 SEC (10.9-12.4)
[2025-02-07 21:30] LABS: Alanine Aminotransferase 15 U/L (0-31); Albumin Level 4.3 g/dL (3.5-5.0); Alkaline Phosphatase 148 U/L (39-117); Anion Gap 19 (12-20); Aspartate Amino Transferase 32 U/L (5-31); Blood Urea Nitrogen 36 mg/dL (9-16); Calcium 9.1 mg/dL (8.4-10.2); Carbon Dioxide 23 mmol/L (22-29); Chloride 101 mmol/L (96-108); Creatinine Clr Calc Pharmacy 25.4; Estimated Glomerular Filt Rate 36; Magnesium 2.1 mg/dL (1.6-2.6); Potassium 3.9 mmol/L (3.3-5.1); Sodium 139 mmol/L (135-145); Total Protein 6.8 g/dL (6.5-8.0)
[2025-02-07 21:37] LABS: Troponin-I High Sensitivity 18.3 ng/L (<3.5-17.0)
[2025-02-07 21:53] LABS: Resp Syncy Virus RNA Qual PCR NEGATIVE (Negative); SARS COV2 PCR INHOUSE NEGATIVE (Negative)
[2025-02-07 22:54] VITALS: BP 127/58; PULSE 92; RESP 21; O2SAT 99
[2025-02-08] VITALS (13 sets, daily range): BP systolic 96–151; BP diastolic 42–76; PULSE 75–92; RESP 15–21; TEMP 36.1–36.8; O2SAT 92–99
[2025-02-08 03:05] LABS: OBS Int Ctl Valid YES; OBS Lot 0124; OBS1 POSITIVE (NEGATIVE)
[2025-02-08 03:50] LABS: Appearance Urine Clear; Glucose Urine UA Negative (Negative); PH 5.5 (5.0-9.0); Specific Gravity - Urine 1.010 (1.005-1.025); UMIC TRIGGER UACC YES
[2025-02-08 03:52] LABS: Venous Blood Gas Refer to POC result
[2025-02-08 03:53] LABS: VBG HCO3 32 mmol/L (22-26); VBG O2 % Saturation 100.0 %
[2025-02-08 04:02] LABS: UACC Culture Trigger YES
[2025-02-08 04:09] LABS: B Type Natriuretic Peptide 2894 pg/mL (<100)
[2025-02-08 04:57] LABS: MANUAL DIFF FLAG NO
[2025-02-08 05:02] LABS: Hematocrit 28.0 % (37.0-47.0); Hemoglobin 8.2 g/dl (12.0-16.0); Imm Gran Abs Auto 0.05 X10*3/uL (0.00-0.03); Imm Gran Pct Auto 0.5 % (0.0-0.4); Lymphocytes Absolute Auto 1.4 X10*3/uL (1.2-4.9); Mean Corpuscular HGB Conc 29.3 g/dl (31.0-35.0); Mean Corpuscular Hemoglobin 21.9 pg (27.0-33.0); Mean Corpuscular Volume 74.9 fL (80.0-98.0); NRBC Abs Auto 0.060 X10*3/uL (0.0-0.012); NRBC Pct Auto 0.6 /100WBC (0.0-0.2); Platelet Count 226 X10*3/uL (160-400); Red Blood Count 3.74 X10*6/uL (4.20-5.50); White Blood Count 9.7 X10*3/uL (4.8-10.8)
--- NOTE | 2025-02-08 05:12 | PM.IMHP ---
History of Present Illness Date of Service: 02/08/25 Attending physician on admission: Antelmo Coyle Chief Complaint: SOB Patient is an 79-year-old female with a past medical history significant for oxygen-dependent COPD on 2 L via NC at home, ?HFpEF, CAD/hx NSTEMI and persistent AFib on Eliquis, who presented to the ED due to shortness of breath and weakness for the past 1-1/2 years, intermittently and worsening. Patient reports dyspnea on exertion and weakness. No chest pain, cough, nausea, vomiting, fever, chills or recent sick contacts. In the ED, she was guaiac positive on CARIE. She reports occasional maroon-colored stools, possible hemorrhoidal bleeding. She also reports she had a recent medication change, 5 days ago her Lasix was decreased from 3 times a day to once daily and she was started on amiodarone. She denies any urinary sx including dysuria, frequency, urgency, or malodorous urine. Review of Systems Constitutional: Constitutional: Denies body ache(s), Denies chills, Reports fatigue, Denies fever(s) and Denies headache(s) Eyes: Eyes: Denies change in vision ENT: Denies headache(s), Denies nasal congestion and Denies sore throat Cardiovascular: Cardiovascular: Denies chest pain, Denies rapid heart rate, Denies leg edema, Denies lightheadedness and Reports dyspnea Respiratory: Respiratory: Denies chest congestion, Denies cough, Reports dyspnea and Denies wheezing Gastrointestinal: Gastrointestinal: Denies abdominal pain, Denies melena, Denies diarrhea, Denies nausea and Denies vomiting Genitourinary: Genitourinary: Denies dysuria and Denies urinary urgency Musculoskeletal: Musculoskeletal: Denies myalgias Integumentary/Breasts: Skin/Breast: Denies rash Neurologic: Denies confusion and Denies headache(s) Psychiatric: Psychiatric: Denies confusion Endocrine: Endocrine: Reports fatigue Hematologic/Lymphatic: Hematologic/Lymphatic: Denies easy bleeding and Denies easy bruising Allergic/Immunologic: Allergic/Immunologic: Denies wheezing [facility] Medical History COPD (chronic obstructive pulmonary disease) Supplemental oxygen dependent Atrial fibrillation CHF (congestive heart failure) Persistent atrial fibrillation Cardiomyopathy COPD (chronic obstructive pulmonary disease) Respiratory failure with hypoxia Hypertension CHF (congestive heart failure) PAF (paroxysmal atrial fibrillation) Congestive heart failure Atrial fibrillation with rapid ventricular response Congestive heart failure Acute hypoxemic respiratory failure Encounter for cardioversion procedure Atrial fibrillation with RVR Acute exacerbation of congestive heart failure Acute on chronic hypoxic respiratory failure Acute HFrEF (heart failure with reduced ejection fraction) Chronic lung disease Skin lesion Dyslipidemia Cough due to DAISY inhibitor Neck pain GERD (gastroesophageal reflux disease) Aortic regurgitation Right hand pain Leg edema Allergic rhinitis Anxiety Family History Father Medical history unknown Mother Medical history unknown Surgical History Carpal tunnel syndrome, right History of bilateral cataract extraction History of partial hysterectomy Social History Household Members: None Housing: House Are you a primary child care cook to a significant other at home: No Do you presently have visiting nurse or other home services: No Alcohol intake: current Alcohol intake frequency: a few times a week Alcohol type: other Comment: 1:[address] Patient Tobacco Use Status: Former Tobacco user Tobacco use type: Cigarette e-Cigarette/Vaping Use: Never Used Second Hand Smoke Exposure: No Advance Directives: Yes Advance Directives on File: Yes Advance Directives Date on File: 10/30/24 Do you have a plan to hurt others: No Plan service: No Current occupational status: retired Cognitive needs: No Hearing needs: No Vision needs: No Narrative: no smoking, etoh or drug use Meds Allergies Allergy/AdvReac Type Severity Reaction Status Date / Time Sulfa (Sulfonamide Allergy Intermediate nausea, Verified 02/07/25 20:50 Antibiotics) vomiting Active Medications: Current Medications Acetaminophen (Acetaminophen 325 Mg Tablet) 975 mg PO Q6H PRN PRN Reason: Pain, Mild 1-3,fever,headache Calcium Carbonate (Calcium Carbonate 750 Mg Tab.Chew) 750 mg PO Q4H PRN PRN Reason: Heartburn Magnesium Hydroxide (Milk Of Magnesia 30 Ml Oral.Susp) 30 ml PO DAILY PRN PRN Reason: Constipation Melatonin (Melatonin 3 Mg Tablet) 6 mg PO BEDTIME PRN PRN Reason: Insomnia Sodium Chloride (0.9 % Sodium Chloride Flush 3 Ml Syringe) 3 ml IVFLUSH QSHIFT [facility] Home Medications ?Medication ?Instructions ?Recorded ?Confirmed ?Last Taken ?Type gabapentin 100 mg capsule 100 mg PO TID PRN Pain 09/07/24 02/04/25 Unknown History rosuvastatin 5 mg tablet 2.5 mg PO BEDTIME 09/07/24 02/04/25 10/20/24 History trolamine salicylate 10 % topical 1 appl topical DAILY PRN Pain 09/07/24 02/04/25 Unknown History cream (Aspercreme) cyanocobalamin (vitamin B-12) 100 100 mcg PO DAILY 10/21/24 02/04/25 10/21/24 History mcg tablet (Vitamin B-12) folic acid 800 mcg tablet 0.8 mg PO DAILY 10/21/24 02/04/25 10/21/24 History ammonium lactate 12 % topical cream 1 appl topical DAILY PRN Dry Skin 10/30/24 02/04/25 Unknown History Physical Exam Vital Signs and Narrative: Vital Signs: Last Vital Signs Temp 97.8 F 02/07/25 20:44 Pulse 75 02/08/25 03:35 Resp 15 02/08/25 03:35 BP 100/52 L 02/08/25 03:35 Pulse Ox 98 02/08/25 03:35 O2 Del Method Nasal Cannula 02/08/25 03:35 O2 Flow Rate 2 02/08/25 03:35 Oxygen Flow Rate 3 02/07/25 20:44 BMI result Body Mass Index 19.1 General: AOx3, no acute distress Resp: diminshed throughout, no wheezing or crackles CVS: irregularly irregular, rate controlled GI: +BS, NT, no distention Skin: Warm, dry Neuro: Cranial nerves II-XII grossly intact bilaterally. Motor grossly intact bilaterally Extremities: No pitting edema Psych: Appropriate affect Const: General: No confusion Orientation/consciousness: No confusion Neuro: General: No confusion Results Labs 02/08/25 04:29 02/07/25 21:10 Labs: Laboratory Results - last 24 hr 02/07/25 02/08/25 02/08/25 21:10 02:59 03:40 MCV 74.7 L MCH 22.6 L MCHC 30.3 L RDW 17.8 H Plt Count 230 MPV 9.6 Immature Gran % (Auto) 0.5 H Neut % (Auto) 80.8 H Lymph % (Auto) 9.0 L [place] % (Auto) 8.2 Eos % (Auto) 0.8 Baso % (Auto) 0.7 Lymph # (Auto) 0.8 L [place] # (Auto) 0.7 Eos # (Auto) 0.1 Baso # (Auto) 0.1 Abs Immat Gran (auto) 0.04 H Absolute Neuts (auto) 7.2 Absolute Nucleated RBC 0.060 H Nucleated RBC % (auto) 0.7 H PT 40.1 H D INR 3.5 H VBG pH VBG pCO2 VBG pO2 VBG HCO3 VBG O2 Saturation VBG Base Excess Anion Gap 19 Estim Creat Clear Calc 25.4 Estimated GFR 36 Random Glucose 115 Calcium 9.1 Magnesium 2.1 Total Bilirubin 0.9 AST 32 H ALT 15 Alkaline Phosphatase 148 H B-Natriuretic Peptide 2894 H Total Protein 6.8 Albumin 4.3 Urine Color Yellow Urine Appearance Clear Urine pH 5.5 Ur Specific [place] 1.010 Urine Protein 30 (1+) H Urine Glucose (UA) Negative Urine Ketones Negative Urine Blood Small (1+) H Urine Nitrite Negative Ur Leukocyte Esterase Small (1+) H Urine RBC 3-5 H Urine WBC 21-50 H Ur Squamous Epith Cells 0-2 Urine Bacteria 4+ Hyaline Casts 3-5 Stool Occult Blood POSITIVE Influenza Type A (PCR) NEGATIVE Influenza Type B (PCR) NEGATIVE RSV RNA Qual (PCR) NEGATIVE SARS-CoV-2 RNA (RT-PCR) NEGATIVE 02/08/25 02/08/25 03:49 04:29 MCV 74.9 L MCH 21.9 L MCHC 29.3 L RDW 17.6 H Plt Count 226 MPV 10.1 Immature Gran % (Auto) 0.5 H Neut % (Auto) 71.0 Lymph % (Auto) 14.4 L [place] % (Auto) 12.8 H Eos % (Auto) 0.7 Baso % (Auto) 0.6 Lymph # (Auto) 1.4 [place] # (Auto) 1.2 Eos # (Auto) 0.1 Baso # (Auto) 0.1 Abs Immat Gran (auto) 0.05 H Absolute Neuts (auto) 6.9 Absolute Nucleated RBC 0.060 H Nucleated RBC % (auto) 0.6 H PT INR VBG pH 7.54 H VBG pCO2 37 VBG pO2 119 VBG HCO3 32 H VBG O2 Saturation 100.0 VBG Base Excess 9.4 Anion Gap Estim Creat Clear Calc Estimated GFR Random Glucose Calcium Magnesium Total Bilirubin AST ALT Alkaline Phosphatase B-Natriuretic Peptide Total Protein Albumin Urine Color Urine Appearance Urine pH Ur Specific [place] Urine Protein Urine Glucose (UA) Urine Ketones Urine Blood Urine Nitrite Ur Leukocyte Esterase Urine RBC Urine WBC Ur Squamous Epith Cells Urine Bacteria Hyaline Casts Stool Occult Blood Influenza Type A (PCR) Influenza Type B (PCR) RSV RNA Qual (PCR) SARS-CoV-2 RNA (RT-PCR) Assessment and Plan (1) Acute blood loss anemia: Status: Acute (2) GI bleed: Status: Acute (3) Symptomatic anemia: Status: Acute (4) Acute kidney injury superimposed on stage 3b chronic kidney disease: Status: Acute Plan Patient is an 79-year-old female with a past medical history significant for oxygen-dependent COPD on 2 L via NC at home, ?HFpEF, CAD/hx NSTEMI and persistent AFib on Eliquis, who presented to the ED due to shortness of breath and weakness for the past 1-1/2 years, intermittently and worsening. ABLA, GI bleed, symptomatic anemia - hgb 8.4, down from 10.8 in 11/22, hct 28.0, down from 31.5, microcytic with MCV on 74.7 - +guiac in ED - BNP at baseline, 2894 - CXR negative - COVID/flu/RSV negative - EKG with a fib, rate controlled - hold eliquis - NPO pending GI consult - GI consult - follow CBC - check iron panel GHAZAL on CKD3b - Cr 1.40 - avoid nephrotoxins. hold lasix - no IVF due to possible HFpEF - UA with 21-50 WBC, culture pending, pt asx - await culture and start abx if symptomatic - monitor cr elevated LFTs - AT 32, ALT normal, alk phote 148, , t bili normal - no abd pain or hx of etoh - likely fatty liver disease - f/u outpt ?chronic HFpEF, no acute exacerbation - no crackles on exam or pitting edema - CXR negative - BNP at baseline, 2894 - hold lasix due to GHAZAL CAD/hx NSTEMI - continue home meds when appropriate severe COPD, oxygen dependent, no acute exacerbation - SOB/dyspnea likely due to anemia - no wheezing or cough on exam - duonebs PRN - continue home meds persistent a fib - rate controlled - hold eliquis due to GI bleed - monitor on tele HTN - normotensive, continue home meds when appropriate med rec pending full code VTE prophy: SCDs Pt with symptomatic anemia and GI bleed, requiring admission for at least 2 midnights stay for further evaluation with GI and monitoring. Quality Stroke Does the patient have a stroke diagnosis?: No VTE Prior VTE?: No VTE Risk Level:: Medical - moderate - high VTE Device Contraindication: N/A - Device Ordered VTE Drug Contraindication: Treatment Not Indicated
[2025-02-08 05:37] LABS: Iron 11 mcg/dL (30-160); Percent Iron Saturation 3 % (15-50); Total Iron Binding Capacity 422 mcg/dL (228-428); Unsaturated Iron Binding 411 ug/dL
[2025-02-08] MEDS: guaiFENesin LA 600 MG TAB.ER.12H PO (05:55)
[2025-02-08] MEDS: 0.9 % Sodium Chloride Flush 3 ML SYRINGE IVFLUSH ×2 (07:35→16:49)
--- NOTE | 2025-02-08 09:25 | PHA.MEDREC ---
Pharmacy Consult ? Medication Reconciliation Pharmacy has completed the medication reconciliation. Spoke to patient to confirm medication list. Patient confirmed she is taking amiodarone 400 mg bid, she stopped taking vitamin B12 a few days ago, she is taking folic acid, gabapentin 100 mg at bedtime prn for leg pain. Per patient, she takes lorazepam 0.5 mg bid, rosuvastatin 2.5 mg (half of the 5 mg) at bedtime, torsemide 40 mg in the morning. She does not take zolpidem 5 mg due to how it makes her feel the next day and takes melatonin 15 mg at bedtime prn instead. Last dose of medications was yesterday morning.
--- NOTE | 2025-02-08 11:14 | PC.NURSE ---
Pt voided again, approx 50-70 ml
[2025-02-08] MEDS: Metoprolol Succinate ER 50 MG TAB.ER.24H PO (12:22)
[2025-02-08] MEDS: Fluticasone/Vilanterol 200/25 BLST.W.DEV 1 PUFF INHALE (13:42)
[2025-02-08] MEDS: Tiotropium Bromide 2.5 mcg 1 PUFF/2.5 MCG MIST.INHAL 2 PUFF INHALE (13:42)
--- NOTE | 2025-02-08 14:08 | HO.PM.IMPN ---
Subjective Subjective Date of Service: 02/08/25 Interval History: no further blood per rectum no abd pain chronic dyspnea Review of Systems Review of Systems: Yes all other systems are reviewed and are negative Physical Exam Vital Signs: Vital Signs: Last Vital Signs Temp 97.1 F 02/08/25 10:31 Pulse 77 02/08/25 13:46 Resp 21 H 02/08/25 13:46 BP 126/48 L 02/08/25 12:22 Pulse Ox 99 02/08/25 12:08 O2 Del Method Nasal Cannula 02/08/25 12:08 O2 Flow Rate 2 02/08/25 12:08 Oxygen Flow Rate 3 02/07/25 20:44 BMI result Body Mass Index 19.1 Gen: in no acute distress HEENT: sclera anicteric, moist mucus membranes Neck: supple Lungs: clear to auscultation bilaterally Heart: irregularly irregular, no murmurs Abd: soft, non-tender, non-distended Ext: no edema Skin: warm/well-perfused Neuro: alert and oriented x3, no focal findings Psych: appropriate affect Objective Data Active Medications Acetaminophen (Acetaminophen 325 Mg Tablet) 975 mg PO Q6H PRN PRN Reason: Pain, Mild 1-3,fever,headache Amiodarone HCl (Amiodarone Hcl 200 Mg Tablet) 400 mg PO BID [facility] Last Admin: 02/08/25 11:04 Dose: 400 mg Documented By: FARIDA Atorvastatin Calcium (Atorvastatin Calcium 20 Mg Tablet) 10 mg PO BEDTIME [facility] Calcium Carbonate (Calcium Carbonate 750 Mg Tab.Chew) 750 mg PO Q4H PRN PRN Reason: Heartburn Fluticasone/Vilanterol (Fluticasone/Vilanterol 200/25 Blst.W.Dev) 1 puff INHALE RDAILY [facility] Last Admin: 02/08/25 13:42 Dose: 1 puff Documented By: ARLENE Folic Acid (Folic Acid 1 Mg Tablet) 1 mg PO DAILY [facility] Gabapentin (Gabapentin 100 Mg Capsule) 100 mg PO BEDTIME PRN PRN Reason: Pain neuropathic Guaifenesin (Guaifenesin La 600 Mg Tab.Er.12h) 600 mg PO BID PRN PRN Reason: Cough Last Admin: 02/08/25 05:55 Dose: 600 mg Documented By: LETICIA Levalbuterol HCl (Levalbuterol Hcl 1.25 Mg/3 Ml Vial.Neb) 1.25 mg INHALE Q4H PRN PRN Reason: shortness of breath or wheezing Last Admin: 02/08/25 12:02 Dose: 1.25 mg Documented By: ARLENE Lorazepam (Lorazepam 0.5 Mg Tablet) 0.5 mg PO BID [facility] Last Admin: 02/08/25 11:05 Dose: Not Given Documented By: FARIDA Non-Admin Reason: had dose at 0600 Magnesium Hydroxide (Milk Of Magnesia 30 Ml Oral.Susp) 30 ml PO DAILY PRN PRN Reason: Constipation Magnesium Oxide (Magnesium Oxide 400 Mg Tablet) 400 mg PO BIDPC [facility] Melatonin (Melatonin 3 Mg Tablet) 6 mg PO BEDTIME PRN PRN Reason: Insomnia Metoprolol Succinate (Metoprolol Succinate Er 50 Mg Tab.Er.24h) 50 mg PO DAILY [facility]; Protocol Last Admin: 02/08/25 12:22 Dose: 50 mg Documented By: SHARA Pantoprazole Sodium (Pantoprazole Sodium 40 Mg/10 Ml Vial) 40 mg IVPUSH BID@0630,1630 [facility] Potassium Chloride (Potassium Chloride Er 20 Meq Tab.Er.Prt) 20 meq PO DAILY [facility] Sodium Chloride (0.9 % Sodium Chloride Flush 3 Ml Syringe) 3 ml IVFLUSH QSHIFT [facility] Last Admin: 02/08/25 07:35 Dose: 3 ml Documented By: FARIDA Tiotropium [place] (Tiotropium [place] 2.5 Mcg 1 Puff/2.5 Mcg Mist.Inhal) 2 puff INHALE RDAILY [facility] Last Admin: 02/08/25 13:42 Dose: 2 puff Documented By: ARLENE Vitamin D (Cholecalciferol (Vitamin D3) 25 Mcg Tablet) 50 mcg PO DAILY [facility] Labs 02/08/25 04:29 02/07/25 21:10 Labs: Laboratory Results - last 24 hr 02/07/25 02/08/25 02/08/25 21:10 02:59 03:40 MCV 74.7 L MCH 22.6 L MCHC 30.3 L RDW 17.8 H Plt Count 230 MPV 9.6 Immature Gran % (Auto) 0.5 H Neut % (Auto) 80.8 H Lymph % (Auto) 9.0 L [place] % (Auto) 8.2 Eos % (Auto) 0.8 Baso % (Auto) 0.7 Lymph # (Auto) 0.8 L [place] # (Auto) 0.7 Eos # (Auto) 0.1 Baso # (Auto) 0.1 Abs Immat Gran (auto) 0.04 H Absolute Neuts (auto) 7.2 Absolute Nucleated RBC 0.060 H Nucleated RBC % (auto) 0.7 H PT 40.1 H D INR 3.5 H VBG pH VBG pCO2 VBG pO2 VBG HCO3 VBG O2 Saturation VBG Base Excess Anion Gap 19 Estim Creat Clear Calc 25.4 Estimated GFR 36 Random Glucose 115 Calcium 9.1 Magnesium 2.1 Iron 11 L TIBC 422 % Saturation 3 L Unsat Iron Binding 411 Total Bilirubin 0.9 AST 32 H ALT 15 Alkaline Phosphatase 148 H B-Natriuretic Peptide 2894 H Total Protein 6.8 Albumin 4.3 Urine Color Yellow Urine Appearance Clear Urine pH 5.5 Ur Specific [place] 1.010 Urine Protein 30 (1+) H Urine Glucose (UA) Negative Urine Ketones Negative Urine Blood Small (1+) H Urine Nitrite Negative Ur Leukocyte Esterase Small (1+) H Urine RBC 3-5 H Urine WBC 21-50 H Ur Squamous Epith Cells 0-2 Urine Bacteria 4+ Hyaline Casts 3-5 Stool Occult Blood POSITIVE Influenza Type A (PCR) NEGATIVE Influenza Type B (PCR) NEGATIVE RSV RNA Qual (PCR) NEGATIVE SARS-CoV-2 RNA (RT-PCR) NEGATIVE 02/08/25 02/08/25 03:49 04:29 MCV 74.9 L MCH 21.9 L MCHC 29.3 L RDW 17.6 H Plt Count 226 MPV 10.1 Immature Gran % (Auto) 0.5 H Neut % (Auto) 71.0 Lymph % (Auto) 14.4 L [place] % (Auto) 12.8 H Eos % (Auto) 0.7 Baso % (Auto) 0.6 Lymph # (Auto) 1.4 [place] # (Auto) 1.2 Eos # (Auto) 0.1 Baso # (Auto) 0.1 Abs Immat Gran (auto) 0.05 H Absolute Neuts (auto) 6.9 Absolute Nucleated RBC 0.060 H Nucleated RBC % (auto) 0.6 H PT INR VBG pH 7.54 H VBG pCO2 37 VBG pO2 119 VBG HCO3 32 H VBG O2 Saturation 100.0 VBG Base Excess 9.4 Anion Gap Estim Creat Clear Calc Estimated GFR Random Glucose Calcium Magnesium Iron TIBC % Saturation Unsat Iron Binding Total Bilirubin AST ALT Alkaline Phosphatase B-Natriuretic Peptide Total Protein Albumin Urine Color Urine Appearance Urine pH Ur Specific [place] Urine Protein Urine Glucose (UA) Urine Ketones Urine Blood Urine Nitrite Ur Leukocyte Esterase Urine RBC Urine WBC Ur Squamous Epith Cells Urine Bacteria Hyaline Casts Stool Occult Blood Influenza Type A (PCR) Influenza Type B (PCR) RSV RNA Qual (PCR) SARS-CoV-2 RNA (RT-PCR) Assessment and Plan (1) GI bleed: Status: Acute Plan d1, 79yo F with COPD on 2L O2, R-sided HF, CAD, chronic AF on apixaban presenting with chronic dyspnea and maroon-colored stool, FOBT+ acute blood loss anemia - hold apixaban, NPO, IV PPI, GI consult pending, recheck H+H tomorrow GHAZAL/CKD3b - hold furosemide, recheck BMP tomorrow asymptomatic bacteruria - no ABX chronic HFpEF - holding torsemide due to mild GHAZAL; continue metoprolol succinate CAD - rosuvastatin, metoprolol succinate; holding apixaban chronic AF - amiodarone + metoprolol succinate, hold apixaban COPD - Breo + tiotropium, prn levalbuterol anxiety - lorazepam VTE ppx - SCDs dispo - TBD In my clinical judgment, the patient requires continued inpatient hospitalization for the following reasons: GIB Total time managing care of this patient today: 35 minutes. Quality Stroke Does the patient have a stroke diagnosis?: No VTE Prior VTE?: No VTE Risk Level:: Medical - moderate - high VTE Device Contraindication: N/A - Device Ordered VTE Drug Contraindication: Treatment Not Indicated
--- NOTE | 2025-02-08 14:53 | MHC.CM.PN ---
IMM 02/08/25, Pt. lives alone, she is active with [facility] for SN, PCP is confirmed: Parul Mcdermott, HCP is on file and confirmed: Brii. For DME, pt said she have all that she needs, she has: walker with 4 wheels, commode, home O2 from [facility]. Aleshiaiy to transport home at DC, DCP; home with service or STR. CM to follow for DC needs.
--- NOTE | 2025-02-08 15:49 | PC.NURSE ---
Pt continues to await GI consult, this RN tiger to Dr Shoemaker who states we will see pt and order clear liquid diet as pt NPO all day. No s/sx bleeding throughout shift. Assisted on bedpan and continues to void throughout shift. Daughter at bedside.
--- NOTE | 2025-02-08 18:18 | P.EN_ITS ---
Event Note Date of Service: 02/08/25 Event Note: GI Consult-Full note dictated-History via patient and the EMR Imp:Iron def. anemia and Heme + stool in an 79 yo female with severe O2 dependent COPD according to a Pulmonary agricultural consultant note, as well as a history of Afib and diastolic CHF. She had an upper endo and colonoscopy with me in 2016 which were not particularly revealing. I would typically recommend further w/u with an EGD/Colonoscopy. However given her significant comorbidities and high procedural risk, particulary in regard to Anesthesia and in relation to doing the prep itself, I have recommended holding off on those for the time being. We reviewed potential underlying etiologies of the presentation, including that of GI neoplasm. However, she understands the risks and difficulty of the procedures in relation to her comorbidities, and is comfortable in holding off on them for the time being. Rec: Consider transfusion before discharge. PPI therapy. F/U Hgb. Observe. I advised her that if she becomes transfusion dependent and/or develops overt signs of bleeding then I think having her undergo GI procedures would be reasonable at that point. However, if things remain as they are I would be inclined to hold off on any invasive testing given her frail appearance and comorbidities. The patient was comfortable with this plan. Thanks Time Spent With Patient Time: Total time managing care of this patient today ____ minutes.
[2025-02-09] VITALS (10 sets, daily range): BP systolic 134–157; BP diastolic 50–85; PULSE 82–99; RESP 16–24; TEMP 36.2–37.1; O2SAT 93–100; BMI 20.6
[2025-02-09] MEDS: 0.9 % Sodium Chloride Flush 3 ML SYRINGE IVFLUSH ×3 (00:12→16:14)
--- NOTE | 2025-02-09 05:10 | CONS_ITS ---
DATE OF SERVICE: 02/08/2025 REASON FOR CONSULTATION: Heme-positive stool and anemia. HISTORY OF PRESENT ILLNESS: This has been obtained from the patient and the medical record. Patient is an 79-year-old female with underlying oxygen-dependent emphysema, atrial fibrillation, and coronary artery disease with diastolic congestive heart failure, who presents with some slightly worsening anemia and associated heme-positive stool. In reviewing the record, I did last see her in 2016 at which time she underwent an upper endoscopy and colonoscopy with me. The colonoscopy revealed some small tubular adenomas that were removed, but was otherwise unremarkable. The upper endoscopy revealed a hiatal hernia, gastritis, and biopsies negative for celiac disease. Gastric biopsies were negative for H pylori. Colon polyps were tubular adenomas. Patient has been on Eliquis in relation to atrial fibrillation. She was admitted to the hospital today for increasing shortness of breath. She does appear to have chronic anemia with hemoglobin of 10.0 in September, 9.2 on January 27, and 8.4 on admission. She was found to have some heme-positive stool. She has not noticed any definitive melena or hematochezia. She does relate a history of having some dark stool while on Pepto-Bismol, but this was transient. She denies any chronic heartburn nor dysphagia. Her appetite has been diminished. She denies any nausea or vomiting. She reports her bowel movements are somewhat irregular, but without any signs of bleeding other than the reported dark stool while on Pepto-Bismol. She denies any known family history of colorectal cancer. CURRENT MEDICATIONS: Acetaminophen, amiodarone, atorvastatin, Tums, vitamin D, folic acid, gabapentin, guaifenesin, levalbuterol, lorazepam p.r.n., magnesium oxide melatonin, metoprolol, pantoprazole, vitamin K. PAST MEDICAL HISTORY: Atrial fibrillation. Significant oxygen-dependent COPD. Congestive heart failure. Cardiomyopathy, hypertension, hyperlipidemia. PAST SURGICAL HISTORY: Surgeries include carpal tunnel, cataracts, partial hysterectomy and appendectomy. SOCIAL HISTORY: She is a former smoker. She does not use any alcohol. She is a . REVIEW OF SYSTEMS: CONSTITUTIONAL: She has been feeling weak at home. SKIN: No rash or pruritus. CARDIAC: No chest pain. PULMONARY: No cough or hemoptysis. GI: As above. URINARY: No dysuria. No hematuria. PHYSICAL EXAMINATION: GENERAL: The patient is alert, comfortable-appearing female. She is wearing oxygen. SKIN: Warm and dry. Anicteric sclerae. Moist mucous membranes. NECK: Supple. CHEST: Reveals slightly diminished breath sounds. CARDIAC: Normal S1, S2. ABDOMEN: Soft, nondistended, nontender without mass. EXTREMITIES: Without edema. LABORATORY DATA: On February 07, her chemistries were normal. BUN was 36, creatinine 1.4. Iron was 11, iron saturation 3%. Total bilirubin 0.9, AST 32, ALT 15, and alkaline phosphatase 148. Albumin 4.3. PT was 40.1 with an INR 3.5. Hemoglobin on January 27 was 9.2 and on ER visit yesterday was 8.4. Hemoglobin today was 8.2. MCV 75. Platelets 226,000. White blood cell count 9.7. IMPRESSION AND PLAN: The patient is an elderly female with significant underlying pulmonary disease, atrial fibrillation, and congestive heart failure, as well as other comorbidities, who presents with some slight decrease in her baseline anemia with associated heme-positive stool. She is on chronic Eliquis. The differential diagnosis is quite broad and could be related to some component of anemia of chronic disease in conjunction with iron deficiency. We did review potential for underlying GI neoplasm as the cause of her presentation with heme-positive stool and anemia. I did advise her that I would typically recommend an upper endoscopy and colonoscopy for somebody presenting with anemia and heme-positive stool. However, I advised her that given her associated comorbidities of significant pulmonary disease and cardiac disease, this would pose significant increased risks of the procedure and anesthesia itself. She also has difficult time walking, which could make the prep very difficult if not impossible. Basically, I advised her that I feel the potential risks of the procedure with anesthesia, as well as the difficulty with the preparation, could put her at increased risk of complication. As such, I advised her that I would recommend we hold off on doing any invasive procedures for the time being. We did review that we could certainly change our minds if need be. Certainly, if she becomes transfusion-dependent and/or develops overt signs of bleeding, then I think having to undergo GI procedures at that point would be reasonable as then the benefit might outweigh the risks. However, if things remain as they are, then I would be inclined to hold off on any invasive testing given her frail appearance, comorbidities, and what I feel is an inappropriate [id number] ratio. I have reviewed all this in detail with the patient and she is comfortable with the plan. I would continue her PPI residential and consideration of iron replacement. Thank you for the consultation. MD SD Larson/AUDELIA / [id number] MTDD
[2025-02-09] MEDS: guaiFENesin LA 600 MG TAB.ER.12H PO (06:17)
[2025-02-09 06:49] LABS: Hematocrit 28.1 % (37.0-47.0); Hemoglobin 8.4 g/dl (12.0-16.0); Mean Corpuscular HGB Conc 29.9 g/dl (31.0-35.0); Mean Corpuscular Hemoglobin 22.2 pg (27.0-33.0); Mean Corpuscular Volume 74.1 fL (80.0-98.0); NRBC Abs Auto 0.060 X10*3/uL (0.0-0.012); NRBC Pct Auto 0.7 /100WBC (0.0-0.2); Platelet Count 230 X10*3/uL (160-400); Red Blood Count 3.79 X10*6/uL (4.20-5.50); White Blood Count 9.2 X10*3/uL (4.8-10.8)
[2025-02-09 06:59] LABS: INTERNATIONAL NORM RATIO 1.8 (0.9-1.1); Prothrombin Time 20.2 SEC (10.9-12.4)
[2025-02-09 07:15] LABS: Blood Urea Nitrogen 34 mg/dL (9-16); Calcium 9.0 mg/dL (8.4-10.2); Creatinine Clr Calc Pharmacy 32.4; Estimated Glomerular Filt Rate 44
[2025-02-09 07:25] LABS: Anion Gap 15 (12-20); Carbon Dioxide 28 mmol/L (22-29); Chloride 100 mmol/L (96-108); Potassium 3.9 mmol/L (3.3-5.1); Sodium 139 mmol/L (135-145)
--- NOTE | 2025-02-09 08:35 | PC.ADMIT ---
Pt arrived to unit at 1999 via stretcher from ED. Pt A+O x 4. Pt on 2L per NC, which is baseline for pt. IGNACIO. See worklist, flowsheets, and MAR for more details. Skin intact. Call hager in reach. Bed in lowest position. Bed alarm on. Report given to oncoming RN at 0700.
[2025-02-09] MEDS: Metoprolol Succinate ER 50 MG TAB.ER.24H PO (08:51)
[2025-02-09] MEDS: Potassium Chloride ER 20 MEQ TAB.ER.PRT PO (08:51)
[2025-02-09] MEDS: Fluticasone/Vilanterol 200/25 BLST.W.DEV 1 PUFF INHALE (09:02)
[2025-02-09] MEDS: Tiotropium Bromide 2.5 mcg 1 PUFF/2.5 MCG MIST.INHAL 2 PUFF INHALE (09:02)
--- NOTE | 2025-02-09 16:29 | MHC.CM.PN ---
A PT evaluation was performed today. The recommendation is for STR. Facility preferences obtained and referrals sent. [facility], but no available bed. [facility] has offered. Once all offers are in patient choice will be obtained. DP STR via BLS.
--- NOTE | 2025-02-09 16:36 | HO.PM.IMPN ---
Subjective Subjective Date of Service: 02/09/25 Interval History: Feeling a little better Still overall weak, tired Denies melena or hematachezia Review of Systems Review of Systems: Yes all other systems are reviewed and are negative Physical Exam Exam: Exam: General: AOx3, no acute distress. Appears weak, frail, elderly Resp: CTA bilaterally though diminished throughout CVS: S1, S2, irregularly irregular rhythm, no murmurs GI: +BS, NT, no distention Skin: Warm, dry Neuro: Cranial nerves II-XII grossly intact bilaterally. Motor grossly intact bilaterally Extremities: No edema Psych: Appropriate affect Vital Signs: Vital Signs: Last Vital Signs Temp 97.1 F 02/09/25 15:21 Pulse 96 02/09/25 15:27 Resp 16 02/09/25 15:27 BP 151/70 H 02/09/25 15:21 Pulse Ox 96 02/09/25 15:21 O2 Del Method Nasal Cannula 02/09/25 15:21 O2 Flow Rate 2 02/09/25 15:21 Oxygen Flow Rate 3 02/07/25 20:44 BMI result Body Mass Index 20.6 Objective Data Active Medications Acetaminophen (Acetaminophen 325 Mg Tablet) 975 mg PO Q6H PRN PRN Reason: Pain, Mild 1-3,fever,headache Amiodarone HCl (Amiodarone Hcl 200 Mg Tablet) 400 mg PO BID [facility] Last Admin: 02/09/25 08:52 Dose: 400 mg Documented By: ANUPAMA Atorvastatin Calcium (Atorvastatin Calcium 20 Mg Tablet) 10 mg PO BEDTIME [facility] Last Admin: 02/09/25 00:12 Dose: 10 mg Documented By: TORSTEN Calcium Carbonate (Calcium Carbonate 750 Mg Tab.Chew) 750 mg PO Q4H PRN PRN Reason: Heartburn Fluticasone/Vilanterol (Fluticasone/Vilanterol 200/25 Blst.W.Dev) 1 puff INHALE RDAILY [facility] Last Admin: 02/09/25 09:02 Dose: 1 puff Documented By: JOSLYN Folic Acid (Folic Acid 1 Mg Tablet) 1 mg PO DAILY [facility] Last Admin: 02/09/25 08:52 Dose: 1 mg Documented By: ANUPAMA Gabapentin (Gabapentin 100 Mg Capsule) 100 mg PO BEDTIME PRN PRN Reason: Pain neuropathic Guaifenesin (Guaifenesin [place] 600 Mg Tab.Er.12h) 600 mg PO BID PRN PRN Reason: Cough Last Admin: 02/09/25 06:17 Dose: 600 mg Documented By: TORSTEN Levalbuterol HCl (Levalbuterol Hcl 1.25 Mg/3 Ml Vial.Neb) 1.25 mg INHALE RQ4H WHILE AWAKE [facility] Last Admin: 02/09/25 15:25 Dose: 1.25 mg Documented By: JOSLYN Lorazepam (Lorazepam 0.5 Mg Tablet) 0.5 mg PO Q8H [facility] Last Admin: 02/09/25 16:14 Dose: 0.5 mg Documented By: ANUPAMA Magnesium Hydroxide (Milk Of Magnesia 30 Ml Oral.Susp) 30 ml PO DAILY PRN PRN Reason: Constipation Magnesium Oxide (Magnesium Oxide 400 Mg Tablet) 400 mg PO BIDPC [facility] Last Admin: 02/09/25 16:14 Dose: 400 mg Documented By: ANUPAMA Melatonin (Melatonin 3 Mg Tablet) 6 mg PO BEDTIME PRN PRN Reason: Insomnia Metoprolol Succinate (Metoprolol Succinate Er 50 Mg Tab.Er.24h) 50 mg PO DAILY [facility]; Protocol Last Admin: 02/09/25 08:51 Dose: 50 mg Documented By: ANUPAMA Pantoprazole Sodium (Pantoprazole Sodium 40 Mg/10 Ml Vial) 40 mg IVPUSH BID@0630,1630 [facility] Last Admin: 02/09/25 16:14 Dose: 40 mg Documented By: ANUPAMA Potassium Chloride (Potassium Chloride Er 20 Meq Tab.Er.Prt) 20 meq PO DAILY [facility] Last Admin: 02/09/25 08:51 Dose: 20 meq Documented By: ANUPAMA Sodium Chloride (0.9 % Sodium Chloride Flush 3 Ml Syringe) 3 ml IVFLUSH QSHIFT [facility] Last Admin: 02/09/25 16:14 Dose: 3 ml Documented By: ANUPAMA Tiotropium [place] (Tiotropium [place] 2.5 Mcg 1 Puff/2.5 Mcg Mist.Inhal) 2 puff INHALE RDAILY [facility] Last Admin: 02/09/25 09:02 Dose: 2 puff Documented By: JOSLYN Vitamin D (Cholecalciferol (Vitamin D3) 25 Mcg Tablet) 50 mcg PO DAILY [facility] Last Admin: 02/09/25 08:52 Dose: 50 mcg Documented By: ANUPAMA Labs 02/09/25 06:18 02/09/25 06:18 Labs: Laboratory Results - last 24 hr 02/09/25 06:18 MCV 74.1 L MCH 22.2 L MCHC 29.9 L RDW 18.0 H Plt Count 230 MPV 9.7 Absolute Nucleated RBC 0.060 H Nucleated RBC % (auto) 0.7 H PT 20.2 H D INR 1.8 H Anion Gap 15 Estim Creat Clear Calc 32.4 Estimated GFR 44 Random Glucose 122 H Calcium 9.0 Microbiology Microbiology Results: Microbiology 02/08/25 04:05 Urine Culture - Final Urine clean catch - Clean Catch Midstream Assessment and Plan (1) Acute on chronic anemia: Status: Acute Plan d2, 79yo F with COPD on 2L O2, R-sided HF, CAD, chronic AF on apixaban presenting with chronic dyspnea and maroon-colored stool, FOBT+ Question of acute blood loss anemia - H&H stable, no gabriel bleeding noted; pt denies melena or hematochezia - hold apixaban, IV PPI, recheck H+H tomorrow - GI consult, recommended against upper endoscopy and colonoscopy given significant associated comorbidities and risk of complications from anesthesia; recommended long-term PPI and iron supplementation GHAZAL/CKD3b, resolved - creatinine improved - resume furosemide tomorrow, recheck BMP tomorrow Weakness - pt with physical decline since October - workup so far negative for acute cause; likely multifactorial: physical deconditioning, worsening chronic anemia, COPD - PT consult recommends STR at discharge - treat with supplemental iron as above asymptomatic bacteruria - no ABX chronic HFpEF - holding torsemide due to mild GHAZAL; continue metoprolol succinate CAD - rosuvastatin, metoprolol succinate; holding apixaban chronic AF - amiodarone + metoprolol succinate, hold apixaban; contact Dr. Corral about restarting COPD - Breo + tiotropium, prn levalbuterol anxiety - lorazepam VTE ppx - SCDs dispo - TBD Pt requires continue hospitalization for monitoring of H&H for possible GI bleed. Pt will require STR upon discharge. Quality Stroke Does the patient have a stroke diagnosis?: No VTE Prior VTE?: No VTE Risk Level:: Medical - moderate - high VTE Device Contraindication: N/A - Device Ordered VTE Drug Contraindication: Treatment Not Indicated
[2025-02-09] MEDS: Ferrous Sulfate 300 MG/5 ML LIQUID PO (17:44)
[2025-02-10] VITALS (11 sets, daily range): BP systolic 113–180; BP diastolic 62–94; PULSE 75–113; RESP 16–20; TEMP 36.1–36.8; O2SAT 94–99
[2025-02-10] MEDS: 0.9 % Sodium Chloride Flush 3 ML SYRINGE IVFLUSH ×3 (00:18→16:55)
[2025-02-10 06:30] LABS: Hematocrit 28.4 % (37.0-47.0); Hemoglobin 8.3 g/dl (12.0-16.0); Mean Corpuscular HGB Conc 29.2 g/dl (31.0-35.0); Mean Corpuscular Hemoglobin 22.3 pg (27.0-33.0); Mean Corpuscular Volume 76.1 fL (80.0-98.0); NRBC Abs Auto 0.110 X10*3/uL (0.0-0.012); Platelet Count 212 X10*3/uL (160-400); Red Blood Count 3.73 X10*6/uL (4.20-5.50); White Blood Count 10.6 X10*3/uL (4.8-10.8)
[2025-02-10] MEDS: guaiFENesin LA 600 MG TAB.ER.12H PO (06:32)
[2025-02-10 06:33] LABS: NRBC Pct Auto 1.0 /100WBC (0.0-0.2)
[2025-02-10 06:43] LABS: Anion Gap 15 (12-20); Blood Urea Nitrogen 32 mg/dL (9-16); Calcium 9.2 mg/dL (8.4-10.2); Carbon Dioxide 29 mmol/L (22-29); Chloride 100 mmol/L (96-108); Creatinine Clr Calc Pharmacy 35.4; Estimated Glomerular Filt Rate 48; Potassium 4.6 mmol/L (3.3-5.1); Sodium 139 mmol/L (135-145)
--- NOTE | 2025-02-10 08:22 | PC.RT ---
RT to give breathing txs this am. Inhalers x2 not on the 3rd floor. RT checked 4th floor where pt came from as well as pt bedside, no inhalers. Pharmacy called for meds.
[2025-02-10] MEDS: Ferrous Sulfate 300 MG/5 ML LIQUID PO ×2 (09:03→16:44)
[2025-02-10] MEDS: Metoprolol Succinate ER 50 MG TAB.ER.24H PO (09:04)
[2025-02-10] MEDS: Potassium Chloride ER 20 MEQ TAB.ER.PRT PO (09:04)
--- NOTE | 2025-02-10 13:33 | MHC.CM.PN ---
Addendum entered by Lisbet Morris 02/11/25 14:32: [facility] CONFIRMED THEY HAVE INSURANCE AUTH CM SPOKE TO PTS DAUGHTER, LYNNETTE, WHO REPORTS HER SISTER WILL TRANSPORT PT AT 1430 HOURS SNF AWARE Original Note: EMR REVIEWED AND PER MD ROUNDS, PT IS MEDICALLY CLEARED FOR STR. PT/FAMILY HAVE ACCEPTED BED OFFER FROM [facility]. [facility] HAS STARTED INSURANCE AUTH PROCESS. CM WILL AWAIT AUTH. FOR ADMISSION.
--- NOTE | 2025-02-10 16:57 | P.PNIM_ITS ---
Subjective Subjective Date of Service: 02/10/25 Interval History: Feeling slightly better, a little more energy Continued SOB and SCOTT No acute events overnight H&H stable, no bleeding noted Spoke to pt and family, would like to resume Eliquis this evening; will be monitored at [facility] Review of Systems Review of Systems: Yes all other systems are reviewed and are negative Physical Exam 2 Exam: Exam: General: AOx3, no acute distress. Overall frail, elderly Resp: CTA bilaterally though diminished throughout CVS: irregularly irregular rhythm, no murmurs GI: +BS, NT, no distention Skin: Warm, dry Neuro: Cranial nerves II-XII grossly intact bilaterally. Motor grossly intact bilaterally Extremities: No edema Psych: Appropriate affect Vital Signs: Vital Signs: Last Vital Signs Temp 98.2 F 02/10/25 15:45 Pulse 76 02/10/25 15:50 Resp 16 02/10/25 15:50 BP 147/64 H 02/10/25 15:45 Pulse Ox 94 02/10/25 15:45 O2 Del Method Nasal Cannula 02/10/25 15:45 O2 Flow Rate 3 02/10/25 15:45 Oxygen Flow Rate 3 02/07/25 20:44 BMI result Body Mass Index 20.6 Objective Data Active Medications Acetaminophen (Acetaminophen 325 Mg Tablet) 975 mg PO Q6H PRN PRN Reason: Pain, Mild 1-3,fever,headache Last Admin: 02/09/25 21:03 Dose: 975 mg Documented By: MARITZA Amiodarone HCl (Amiodarone Hcl 200 Mg Tablet) 400 mg PO BID [facility] Last Admin: 02/10/25 09:03 Dose: 400 mg Documented By: MIKCIE Atorvastatin Calcium (Atorvastatin Calcium 20 Mg Tablet) 10 mg PO BEDTIME [facility] Last Admin: 02/09/25 21:00 Dose: 10 mg Documented By: MARITZA Calcium Carbonate (Calcium Carbonate 750 Mg Tab.Chew) 750 mg PO Q4H PRN PRN Reason: Heartburn Ferrous Sulfate (Ferrous Sulfate 300 Mg/5 Ml Liquid) 300 mg PO BIDWM [facility] Last Admin: 02/10/25 16:44 Dose: 300 mg Documented By: MICKIE Fluticasone/Vilanterol (Fluticasone/Vilanterol 200/25 Blst.W.Dev) 1 puff INHALE RDAILY [facility] Last Admin: 02/10/25 08:21 Dose: Not Given Documented By: GERARD Non-Admin Reason: pharmacy called for med Folic Acid (Folic Acid 1 Mg Tablet) 1 mg PO DAILY [facility] Last Admin: 02/10/25 09:04 Dose: 1 mg Documented By: MICKIE Gabapentin (Gabapentin 100 Mg Capsule) 100 mg PO BEDTIME PRN PRN Reason: Pain neuropathic Guaifenesin (Guaifenesin La 600 Mg Tab.Er.12h) 600 mg PO BID PRN PRN Reason: Cough Last Admin: 02/10/25 06:32 Dose: 600 mg Documented By: MARITZA Levalbuterol HCl (Levalbuterol Hcl 1.25 Mg/3 Ml Vial.Neb) 1.25 mg INHALE RQ4H WHILE AWAKE [facility] Last Admin: 02/10/25 15:50 Dose: 1.25 mg Documented By: FREDA Lorazepam (Lorazepam 0.5 Mg Tablet) 0.5 mg PO Q8H [facility] Last Admin: 02/10/25 16:44 Dose: 0.5 mg Documented By: MICKIE Magnesium Hydroxide (Milk Of Magnesia 30 Ml Oral.Susp) 30 ml PO DAILY PRN PRN Reason: Constipation Magnesium Oxide (Magnesium Oxide 400 Mg Tablet) 400 mg PO BIDPC [facility] Last Admin: 02/10/25 16:43 Dose: 400 mg Documented By: MICKIE Melatonin (Melatonin 3 Mg Tablet) 6 mg PO BEDTIME PRN PRN Reason: Insomnia Metoprolol Succinate (Metoprolol Succinate Er 50 Mg Tab.Er.24h) 50 mg PO DAILY [facility]; Protocol Last Admin: 02/10/25 09:04 Dose: 50 mg Documented By: MICKIE Pantoprazole Sodium (Pantoprazole Sodium 40 Mg/10 Ml Vial) 40 mg IVPUSH BID@0630,1630 [facility] Last Admin: 02/10/25 16:44 Dose: 40 mg Documented By: MICKIE Polyethylene Glycol (Polyethylene Glycol 3350 17 Gm Powd.Pack) 17 gm PO DAILY PRN PRN Reason: Constipation Last Admin: 02/10/25 14:32 Dose: 17 gm Documented By: MICKIE Potassium Chloride (Potassium Chloride Er 20 Meq Tab.Er.Prt) 20 meq PO DAILY [facility] Last Admin: 02/10/25 09:04 Dose: 20 meq Documented By: MICKIE Sodium Chloride (0.9 % Sodium Chloride Flush 3 Ml Syringe) 3 ml IVFLUSH QSHIFT [facility] Last Admin: 02/10/25 16:55 Dose: 3 ml Documented By: MICKIE Tiotropium [place] (Tiotropium [place] 2.5 Mcg 1 Puff/2.5 Mcg Mist.Inhal) 2 puff INHALE RDAILY [facility] Last Admin: 02/10/25 08:21 Dose: Not Given Documented By: GERARD Non-Admin Reason: pharmacy called for med Torsemide (Torsemide 20 Mg Tablet) 40 mg PO DAILY [facility]; Protocol Last Admin: 02/10/25 09:03 Dose: 40 mg Documented By: MICKIE Vitamin D (Cholecalciferol (Vitamin D3) 25 Mcg Tablet) 50 mcg PO DAILY [facility] Last Admin: 02/10/25 09:03 Dose: 50 mcg Documented By: MICKIE Labs 02/10/25 05:52 02/10/25 05:52 Labs: Laboratory Results - last 24 hr 02/10/25 05:52 MCV 76.1 L MCH 22.3 L MCHC 29.2 L RDW 17.6 H Plt Count 212 MPV 9.8 Absolute Nucleated RBC 0.110 H Nucleated RBC % (auto) 1.0 H Anion Gap 15 Estim Creat Clear Calc 35.4 Estimated GFR 48 Random Glucose 106 Calcium 9.2 Assessment and Plan (1) Generalized weakness: Status: Acute Plan d3, 79yo F with COPD on 2L O2, R-sided HF, CAD, chronic AF on apixaban presenting with chronic dyspnea and maroon-colored stool, FOBT+ Question of acute blood loss anemia - H&H stable, no gabriel bleeding noted; pt denies melena or hematochezia - GI consult, recommended against upper endoscopy and colonoscopy given significant associated comorbidities and risk of complications from anesthesia; recommended long-term PPI and iron supplementation - discussed risks vs benefits with family about anticoagulation; will resume apixaban - contiute PPI, start iron supplementation - follow H+H tomorrow GHAZAL/CKD3b, resolved - creatinine improved - resume furosemide tomorrow, recheck BMP tomorrow Weakness - pt with physical decline since October - workup so far negative for acute cause; likely multifactorial: symptomatic AFib, COPD, physical deconditioning, worsening chronic anemia - PT consult recommends STR at discharge - treat with supplemental iron as above, continue amiodarone and metoprolol for rate and rhythm control, asymptomatic bacteruria - no ABX chronic HFpEF - holding torsemide due to mild GHAZAL; continue metoprolol succinate CAD - rosuvastatin, metoprolol succinate; holding apixaban chronic AF - amiodarone + metoprolol succinate, resume apixaban at 2.5mg bid COPD - Breo + tiotropium, prn levalbuterol anxiety - lorazepam VTE ppx - SCDs dispo - TBD Pt requires continue hospitalization for monitoring of H&H for possible GI bleed. Pt will require STR upon discharge; waiting on prior auth, which should be granted tomorrow. Quality Stroke Does the patient have a stroke diagnosis?: No VTE Prior VTE?: No VTE Risk Level:: Medical - moderate - high VTE Device Contraindication: N/A - Device Ordered VTE Drug Contraindication: Treatment Not Indicated
[2025-02-11] MEDS: 0.9 % Sodium Chloride Flush 3 ML SYRINGE IVFLUSH ×2 (00:21→08:44)
[2025-02-11 03:37] VITALS: BP 137/63; PULSE 81; RESP 20; TEMP 36.3; O2SAT 96
[2025-02-11] MEDS: guaiFENesin LA 600 MG TAB.ER.12H PO (06:32)
[2025-02-11] MEDS: Fluticasone/Vilanterol 200/25 BLST.W.DEV 1 PUFF INHALE (07:46)
[2025-02-11] MEDS: Tiotropium Bromide 2.5 mcg 1 PUFF/2.5 MCG MIST.INHAL 2 PUFF INHALE (07:46)
[2025-02-11 07:48] VITALS: BP 144/64; PULSE 69; PULSE 70; RESP 16; RESP 18; TEMP 35.9; O2SAT 100; O2SAT 95
[2025-02-11] MEDS: Potassium Chloride ER 20 MEQ TAB.ER.PRT PO (08:43)
[2025-02-11] MEDS: Metoprolol Succinate ER 50 MG TAB.ER.24H PO (08:43)
[2025-02-11] MEDS: Ferrous Sulfate 300 MG/5 ML LIQUID PO (08:44)
[2025-02-11 09:12] LABS: Hematocrit 29.1 % (37.0-47.0); Hemoglobin 8.3 g/dl (12.0-16.0); Mean Corpuscular HGB Conc 28.5 g/dl (31.0-35.0); Mean Corpuscular Hemoglobin 21.8 pg (27.0-33.0); Mean Corpuscular Volume 76.6 fL (80.0-98.0); NRBC Abs Auto 0.150 X10*3/uL (0.0-0.012); Platelet Count 220 X10*3/uL (160-400); Red Blood Count 3.80 X10*6/uL (4.20-5.50); White Blood Count 9.3 X10*3/uL (4.8-10.8)
[2025-02-11 09:13] LABS: NRBC Pct Auto 1.6 /100WBC (0.0-0.2)
[2025-02-11 11:36] VITALS: PULSE 84; RESP 18; O2SAT 95
[2025-02-11 12:00] VITALS: BP 143/69; PULSE 93; RESP 15; TEMP 36.1; O2SAT 93
--- NOTE | 2025-02-11 14:04 | P.DS_ITS ---
DS: Providers Provider Date of Service: 02/11/25 Date of admission: 02/08/25 03:20 Date of discharge: 02/11/25 Primary care physician: Parul Williamson MD Consults: 02/08/25 05:06 Consult to Gastroenterology Routine Consulting Provider: Reji Graves Reason for consultation: symptomatic anemia DS: Diagnosis Discharge Diagnosis (1) Generalized weakness: Status: Acute DS: Summary Hospital Course Hospital Course: From admission HPI: Date of Service: 02/08/25 Attending physician on admission: Antelmo Coyle Chief Complaint: SOB Patient is an 79-year-old female with a past medical history significant for oxygen-dependent COPD on 2 L via NC at home, ?HFpEF, CAD/hx NSTEMI and persistent AFib on Eliquis, who presented to the ED due to shortness of breath and weakness for the past 1-1/2 years, intermittently and worsening. Patient reports dyspnea on exertion and weakness. No chest pain, cough, nausea, vomiting, fever, chills or recent sick contacts. In the ED, she was guaiac positive on CARIE. She reports occasional maroon-colored stools, possible hemorrhoidal bleeding. She also reports she had a recent medication change, 5 days ago her Lasix was decreased from 3 times a day to once daily and she was started on amiodarone. She denies any urinary sx including dysuria, frequency, urgency, or malodorous urine. Hospital course: Pt was originally admitted to the hospital due to generalized weakness in the setting of possible symptomatic acute blood loss anemia. Pt has stool was positive for occult blood, but no hematochezia, melena, or gabriel bleeding from rectum noted; was thought likely secondary to hemorrhoids. Pt was seen and evaluated by GI who deferred EGD and colonoscopy due to patient's frail condition as well as lack of acute bleeding. Patient's H&H remained stable though below baseline for hospital stay. pt was found to be iron deficient and started on iron supplementation. Patient's Eliquis was initially held, and then resumed at a reduced dosage of 2.5 mg b.i.d. review of records indicates pt has been seen and evaluated by Cardiology for treatment and workup for symptomatic AFib. Currently is not a good candidate for cardiac ablation, though was recently started on an amiodarone for rhythm control with a loading dose of 400 mg twice a day until 02/19, then 200 mg daily after that. Pt has been experiencing intermittent though overall worsening SOB generalized weakness for the past 1-1/2 years, worse since October. It appears that pt's generalized weekends was not due to acute blood loss anemia, but rather multifactorial: Primarily secondary to symptomatic AFib, though complicated by worsening iron deficiency anemia, COPD, and generalized deconditioning. Pt will be discharged to [facility] for strength and conditioning, and be discharged on ferrous sulfate 325 mg p.o. b.i.d. and a reduced dose of Eliquis of 2.5 mg b.i.d.. Pt needs to follow up with Cardiology for continued management and evaluation of symptomatic AFib. Pt also needs to follow up with PCP for monitoring and management of iron deficiency anemia with possible referral to Hematology if she is not showing improvement. Pt should also have repeat CBC drawn at [facility] in 2-3 days to monitor H&H levels. She should resume all of her other home medications. Time Attestation Discharge Coordination Time (in mins): 40 Quality: Safe Use of Opioids Does Pt have an Active Cancer Diagnosis on the Problem List?: No Quality: Stroke Does the patient have a stroke diagnosis?: No Physical Exam Exam: Exam: General: AOx3, no acute distress. Overall frail, elderly Resp: CTA bilaterally though diminished throughout CVS: irregularly irregular rhythm, no murmurs GI: +BS, NT, no distention Skin: Warm, dry Neuro: Cranial nerves II-XII grossly intact bilaterally. Motor grossly intact bilaterally Extremities: No edema Psych: Appropriate affect Vital Signs: Vital Signs: Last Vital Signs Temp 96.9 F 02/11/25 12:00 Pulse 93 02/11/25 12:00 Resp 15 02/11/25 12:00 BP 143/69 H 02/11/25 12:00 Pulse Ox 93 02/11/25 12:00 O2 Del Method Nasal Cannula 02/11/25 12:00 O2 Flow Rate 2 02/11/25 12:00 Oxygen Flow Rate 3 02/07/25 20:44 BMI result Body Mass Index 20.6 DS: Data Data Completed and Pending Completed studies during hospitalization [Text1]: Procedures Shinto of Cardiac Rhythm, Single (10/31/24) Labs on day of discharge: Laboratory Results - last 24 hr 02/10/25 02/11/25 05:52 09:04 WBC 9.3 RBC 3.80 L Hgb 8.3 L Hct 29.1 L MCV 76.6 L MCH 21.8 L MCHC 28.5 L RDW 18.0 H Plt Count 220 MPV 9.4 Absolute Nucleated RBC 0.150 H Nucleated RBC % (auto) 1.6 H Smear Path Review SEE NOTE Discharge Plan Discharge Anticipated Discharge Date/Time: 02/11/25 14:30 Patient Disposition: Xfer SNF Discharge Diagnosis: Generalized weakness in the setting of anemia and AFib Referrals: Erich [facility] [Other] Parul Cartagena MD [Primary Care Provider, Internal Medicine] - 1 Week Discharge Medications: New Eliquis 2.5 mg Tablet 2.5 mg PO BID Qty: 180 0RF Rx Instructions: Take one tablet twice a day ferrous sulfate 325 mg (65 mg iron) tablet 325 mg PO BID Qty: 90 0RF Rx Instructions: Take one tablet twice a day for iron deficiency anemia Continued Spiriva Respimat 2.5 mcg/actuation mist 2 puff inhalation DAILY 30 Days Qty: 4 5RF Rx Instructions: cannot use [employer] levalbuterol tartrate 45 mcg/actuation HFA aerosol inhaler 2 puff inhalation Q4-6H PRN (Reason: shortness of breath) 30 Days Qty: 15 3RF fluticasone furoate-vilanterol [Breo Ellipta] 200-25 mcg/dose blister with device 1 inh inhalation DAILY Qty: 60 2RF pantoprazole 40 mg tablet,delayed release (DR/EC) 40 mg PO DAILY@0630 90 Days Qty: 90 1RF cholecalciferol (vitamin D3) 50 mcg (2,000 unit) capsule 50 mcg PO DAILY 90 Days Qty: 90 1RF metoprolol succinate 50 mg tablet extended release 24 hr 50 mg PO DAILY 90 Days Qty: 90 1RF potassium chloride 20 mEq/15 mL liquid 20 meq PO DAILY Qty: 1500 0RF levalbuterol HCl 1.25 mg/3 mL solution for nebulization 1.25 mg inhalation Q4-6H PRN (Reason: shortness of breath or wheezing) 30 Days Qty: 90 4RF magnesium oxide 400 mg (241.3 mg magnesium) tablet 400 mg PO BIDPC 90 Days Qty: 180 3RF folic acid 800 mcg Tablet 0.8 mg PO DAILY rosuvastatin 5 mg tablet 2.5 mg PO BEDTIME gabapentin 100 mg capsule 100 mg PO BEDTIME PRN (Reason: Pain) melatonin 5 mg Tablet 15 mg PO BEDTIME PRN (Reason: INSOMMIA) torsemide 20 mg tablet 40 mg PO DAILY Protocol: Hold for SBP< HOLD for SBP < : 90 lorazepam 0.5 mg tablet 0.5 mg PO BID (DME) compr.stocking,knee,long,small Misc See Rx Instructions .Route Qty: 2 1RF Rx Instructions: As directed Discontinued Eliquis 5 mg tablet 5 mg PO BID 90 Days Qty: 180 1RF Discharge Orders: Discharge Order (Routine); Ordered 02/11/25 Ordered By: Shasta Das Activity on Discharge: As tolerated Stand Alone Forms: Patient Portal Discharge page Print Language: Wolof Care Plan Goals: See below Health Concerns: Symptomatic anemia Symptomatic atrial fibrillation Acute GI bleeding Generalized weakness Plan of Treatment: -- You were admitted to the hospital for generalized weakness and SOB initially thought to be concerning for possible GI bleed. Your blood levels remained stable throughout hospital stay, in no rectal bleeding was noted; you were seen evaluated by GI who deferred colonoscopy and EGD due to frailty and lack of evidence of acute bleeding. You were noted to be have iron deficiency anemia and tired on iron supplementation. You are also seen and evaluated by Physical therapy who recommended discharge to short term rehab for helping increasing strength and conditioning. Upon review of your records, it appears that you have been getting increasingly short of breath and weak for the past -- For iron deficiency anemia, take ferrous sulfate 325 mg twice a day with food. You should follow-up with your PCP in 1-2 weeks for repeat labs and monitoring response to therapy. You may need Hematology referral if you remain significantly anemic and symptomatic. -- your Eliquis dosage has been halved to 2.5 mg twice a day. You should have repeat CBC drawn at short-term rehab in 2-3 days to monitor hemoglobin and hematocrit levels to ensure there is no acute bleeding. -- you have also recently been seen and evaluated by Cardiology for generalized weakness and SOB in the setting of symptomatic AFib. You are currently not a good candidate for ablation and were started on a loading dose of amiodarone on 02/05 for rhythm control. You should take 400mg twice a day until 02/19. On 02/20 you should take only 200mg once a day until told otherwise by cardiology. Follow up with cardiology as previously scheduled. -- You should resume all of your other home medications. Assessment: See discharge summary Patient Instructions: Amiodarone (By mouth), Apixaban (By mouth) (Eliquis), Constipation (GEN) Discharge Date/Time: 02/11/25 15:00
[2025-02-11 14:50] VITALS: BP 156/70; PULSE 95; RESP 18; TEMP 36.8; O2SAT 92
--- NOTE | 2025-02-14 07:13 | P.CDIM_ITS ---
PROVIDER RESPONSE TEXT: To clarify, the appropriate diagnosis supported by the clinical indicators: Acute on chronic respiratory failure: Likely QUERY TEXT: PHYSICIAN'S DOCUMENTATION REQUEST Date of Query: 02/10/2025 08:02 AM EDT Patient Name: Yasmeen Andrews Admit Date: 02/08/2025 Dear Shasta MOHAN, A review of the medical record indicates additional documentation may be needed. Please review below and update the documentation accordingly. Clinical Indicators: H&P and Progress notes: COPD on 2L O2 at home. Shortness of breath, dyspnea, oxygen dependent RR 22 Pulse ox 89 L Placed on 3L NC ABG's completed. Please clarify which of the following accurately represents the patient's respiratory status: Chronic respiratory failure Please specify if Hypoxic, Hypercapnic, or Hypoxic and hypercapnic Acute on chronic respiratory failure possible, probable, suspected etc. Other specified Other (explain) Clinically unable to determine (explain) Thank you, Bonny Savage, CCS, CDIS Use of terms such as suspected, likely, concern for, or probable (associated with a specific diagnosis that is being evaluated, monitored, or treated as if it exists) are acceptable and can be coded in the inpatient setting, when documented at the time of discharge. Please use your independent medical judgment in providing your response. THIS QUERY IS PART OF THE PERMANENT MEDICAL RECORD
--- NOTE | 2025-02-14 07:13 | P.CDIM_ITS ---
PROVIDER RESPONSE TEXT: To clarify, the appropriate diagnosis supported by the clinical indicators: Iron deficiency anemia due to chronic blood loss: Likely QUERY TEXT: PHYSICIAN'S DOCUMENTATION REQUEST Date of Query: 02/10/2025 08:07 AM EDT Patient Name: Yasmeen Andrews Admit Date: 02/08/2025 Dear Shasta MOHAN, A review of the medical record indicates additional documentation may be needed. Please review below and update the documentation accordingly. Clinical Indicators: GI consultation 02/09/25 - Heme-positive stool and anemia. Slightly worsening anemia. some component of anemia of chronic disease in conjunction with iron deficiency. LABS: Iron 11 L BP 96/48 L I would continue PPI ocean transportation intermediary and consideration of iron replacement. Based on the above, could you clarify which of the following is the most likely type of anemia you are evaluating, treating, and/or monitoring? Iron deficiency anemia due to chronic blood loss possible, probable, suspected etc. Iron deficiency anemia secondary to acute on chronic blood loss Other specified Other (explain) Clinically unable to determine (explain) Thank you, Bonny Savage, CCS, CDIS Use of terms such as suspected, likely, concern for, or probable (associated with a specific diagnosis that is being evaluated, monitored, or treated as if it exists) are acceptable and can be coded in the inpatient setting, when documented at the time of discharge. Please use your independent medical judgment in providing your response. THIS QUERY IS PART OF THE PERMANENT MEDICAL RECORD
== END 2025-02-11 15:00 | disposition skilled nursing facility (03) | DRG 811 ==
LOC: HO.ED 02-08 03:26 → HO.EDOVER 02-08 03:44 → HO.IMC 02-08 18:48 → HO.S3 02-09 17:11
PROVIDERS: Family Medicine; Physician Assistant; Physician Assistant Medical; Admitting Provider Student in an Organized Health Care Education/Training Program; Emergency Provider Emergency Medicine; PCP Internal Medicine; Visit Provider Student in an Organized Health Care Education/Training Program
DX: D50.0 Iron deficiency anemia secondary to blood loss (chronic) (principal); J96.21 Acute and chronic respiratory failure with hypoxia; I48.19 Other persistent atrial fibrillation; N17.9 Acute kidney failure, unspecified; I50.32 Chronic diastolic (congestive) heart failure; I13.0 Hypertensive heart and chronic kidney disease with heart failure and stage 1 through stage 4 chronic kidney disease, or unspecified chronic kidney disease; J44.9 Chronic obstructive pulmonary disease, unspecified; F41.9 Anxiety disorder, unspecified; R79.1 Abnormal coagulation profile; K76.0 Fatty (change of) liver, not elsewhere classified; N18.32 Chronic kidney disease, stage 3b; I25.10 Atherosclerotic heart disease of native coronary artery without angina pectoris; Z20.822 Contact with and (suspected) exposure to COVID-19; Z79.01 Long term (current) use of anticoagulants; Z99.81 Dependence on supplemental oxygen; Z79.51 Long term (current) use of inhaled steroids; Z79.899 Other long term (current) drug therapy
CPT/HCPCS: 36415; 71046; 80048; 80053; 81001; 82272; 82803; 83540; 83735; 83880; 84484; 85025; 85027; 85610; 87086; 87637; 93005; 94640; 97116; 97162; 97530; 99285; J2470; J3430

== ENCOUNTER → 2025-02-07 20:52 | Outpatient (BNV) | payer MEDICARE, SELFPAY | PROVIDERS: PCP Internal Medicine; Visit Provider Student in an Organized Health Care Education/Training Program | DX: J43.9 Emphysema, unspecified (principal) | CPT/HCPCS: 71046 ==

== ENCOUNTER → 2025-02-07 20:52 | Outpatient (BNV) | payer MEDICARE, SELFPAY | PROVIDERS: Admitting Provider Student in an Organized Health Care Education/Training Program; Emergency Provider Emergency Medicine; PCP Internal Medicine; Visit Provider Internal Medicine Cardiovascular Disease | DX: I48.91 Unspecified atrial fibrillation (principal); I44.4 Left anterior fascicular block | CPT/HCPCS: 93010 ==

== ENCOUNTER → 2025-02-08 03:20 | Outpatient (BNV) | payer MEDICARE, SELFPAY | PROVIDERS: Admitting Provider Student in an Organized Health Care Education/Training Program; Emergency Provider Emergency Medicine; PCP Internal Medicine; Visit Provider Physician Assistant | DX: D64.9 Anemia, unspecified (principal) | CPT/HCPCS: 99233 ==

== ENCOUNTER 2025-04-02 14:16 | Outpatient (REF) | payer MEDICARE, SELFPAY ==
[2025-04-02 14:21] LABS: MANUAL DIFF FLAG NO
--- OUTSIDE RECORDS SUMMARY | 2025-04-02 14:22 | XMS_ITS | Encounter Summary ---
Author Organization [employer] Address [address] [place] [address] Care Team Providers Care Brush Filler Hand Name Role Phone Louis Velazco MD Primary Care Provider [phone] Encounter Details Date Type Department Care Team (Late st Contact Info) Description 02/26/2025 Lab Requisition [facility] - Main Lab [address] [place] [address] Betito Ledezma MD [address] [place] [address] Hypokalemia; Pneumonia, unspecified organism Social History Tobacco Use Types Packs/Day Years [...] Associated Diagnosis Comments COMPLETE BLOOD COUNT Routine 02/26/2025 5:41 AM EDT Hypokalemia Pneumonia, unspecified organism COMPREHENSIVE METABOLIC PANEL Routine 02/26/2025 5:41 AM EDT Hypokalemia Pneumonia, unspecified organism documented in this encounter Results * (ABNORMAL) Comprehensive metabolic panel (02/26/2025 5:41 AM EDT) Sodium 131(L) 133 - 145 mmol/L LAB CHEMISTRY METHOD 02/26/2025 11:[address] [facility] Potassium 4.0 3.5 - 5.5 mmol/L LAB CHEMISTRY METHOD 02/26/2025 11:[address] [facility] Chloride 89(L) 96 - 110 mmol/L LAB CHEMISTRY METHOD 02/26/2025 11:21 AM [facility] CO2 36(H) 21 - 32 mmol/L LAB CHEMISTRY METHOD 02/26/2025 11:21 AM [facility] Anion Gap 6 3 - 11 LAB CHEMISTRY METHOD 02/26/2025 11:21 AM [facility] Glucose 75 70 - 100 mg/dL LAB CHEMISTRY METHOD 02/26/2025 11:21 AM [facility] BUN 15 5 - 25 mg/dL LAB CHEMISTRY METHOD 02/26/2025 11:21 AM [facility] Comment:Results verified by repeat testing Creatinine 0.64 0.50 - 1.10 mg/dL LAB CHEMISTRY METHOD 02/26/2025 11:21 AM [facility] eGFR 89 >=60 mL/min/1. 73m2 LAB CHEMISTRY METHOD 02/26/2025 11:21 AM [facility] Comment:Calculation based on the Chronic Kidney Disease Epidemiology Collaboration (CKD-EPI) equation refit without adjustment for race. BUN/Creatinine Ratio 23.4 LAB CHEMISTRY METHOD 02/26/2025 11:21 AM [facility] Calcium 8.8 8.5 - 10.5 mg/dL LAB CHEMISTRY METHOD 02/26/2025 11:21 AM [facility] AST (SGOT) 40 10 - 42 unit/L LAB CHEMISTRY METHOD 02/26/2025 11:21 AM [facility] ALT (SGPT) 128(H) 10 - 60 unit/L LAB CHEMISTRY METHOD 02/26/2025 11:21 AM [facility] Comment:Results verified by repeat testing Alkaline Phosphatase 187(H) 42 - 121 unit/L LAB CHEMISTRY METHOD 02/26/2025 11:21 AM [facility] Total Protein 5.3(L) 6.0 - 8.0 g/dL LAB CHEMISTRY METHOD 02/26/2025 11:[address] [facility] Albumin 3.0(L) 3.2 - 5.0 g/dL LAB CHEMISTRY METHOD 02/26/2025 11:[address] [facility] Total Bilirubin 1.3 0.0 - 1.4 mg/dL LAB CHEMISTRY METHOD 02/26/2025 11:[address] [facility] Blood Venous blood specimen / Unknown Venipuncture / Unknown 02/26/2025 5:41 AM EDT 02/26/2025 9:26 AM EDT us Betito Ledezma MD LAB BLOOD ORDERABLES Final Result [facility] [address] [place] [address], [place] [phone] * (ABNORMAL) Complete blood count (02/26/2025 5:41 AM EDT) WBC 11.8(H) 4.8 - 10.8 K/mcL LAB HEMETOLOGY METHOD 02/26/2025 9:46 AM [facility] RBC 3.40(L) 3.80 - 4.80 M/mcL LAB HEMETOLOGY METHOD 02/26/2025 9:46 AM [facility] Hemoglobin 7.7(L) 11.5 - 16.0 g/dL LAB HEMETOLOGY METHOD 02/26/2025 9:46 AM [facility] Hematocrit 26.2(L) 35.0 - 47.0 % LAB HEMETOLOGY METHOD 02/26/2025 9:46 AM [facility] MCV 76.4(L) 79.0 - 98.0 FL LAB HEMETOLOGY METHOD 02/26/2025 9:46 AM [facility] MCH 22.4(L) 27.0 - 32.0 pcg LAB HEMETOLOGY METHOD 02/26/2025 9:[address] [facility] MCHC 29.4(L) 32.0 - 37.0 g/dL LAB HEMETOLOGY METHOD 02/26/2025 9:[address] [facility] RDW 22.5(H) 11.0 - 15.0 % LAB HEMETOLOGY METHOD 02/26/2025 9:[address] [facility] Platelets 134 130 - 400 K/mcL LAB HEMETOLOGY METHOD 02/26/2025 9:[address] [facility] MPV 10.2 7.0 - 11.0 FL LAB HEMETOLOGY METHOD 02/26/2025 9:[address] [facility] NRBC 0.3 <1.0 % LAB HEMETOLOGY METHOD 02/26/2025 9:[address] [facility] NRBC Absolute 0.04 <0.10 K/mcL LAB HEMETOLOGY METHOD 02/26/2025 9:[address] [facility] Blood Venous blood specimen / Unknown Venipuncture / Unknown 02/26/2025 5:41 AM EDT 02/26/2025 9:26 AM EDT us Betito Ledezma MD LAB BLOOD ORDERABLES Final Result [facility] [address] [place] [address], documented in this encounter Visit Diagnoses Diagnosis Hypokalemia Hypopotassemia Pneumonia, unspecified organism documented in this encounter Care Teams Brush Filler Hand Relationship Specialty Start Date End Date Louis Velazco MD [address] [place] [address] PCP - General Internal Medicine 11/06/24 documented as of this encounter
--- OUTSIDE RECORDS SUMMARY | 2025-04-02 14:22 | XMS_ITS | Encounter Summary ---
Author Organization [employer] Address [address] [place] [address] Care Team Providers Care Java J[employer] Technical Lead Name Role Phone Louis Velazco MD Primary Care Provider [phone] Encounter Details Date Type Department Care Team (Late st Contact Info) Description 11/08/2024 Lab Requisition [facility] - Main Lab [address] [facility] [place] [address] Louis Velazco MD [address] [place] [phone] Acute systolic (congestive) heart failure (CMS/HCC [...] Associated Diagnosis Comments COMPLETE BLOOD COUNT Routine 11/09/2024 6:22 AM EDT Acute systolic (congestive) heart failure (CMS/HCC V24, CMS/HCC V28) Chronic obstructive pulmonary disease with (acute) exacerbation (CMS/HCC V24, CMS/HCC V28) COMPREHENSIVE METABOLIC PANEL Routine 11/09/2024 6:22 AM EDT Acute systolic (congestive) heart failure (CMS/HCC V24, CMS/HCC V28) Chronic obstructive pulmonary disease with (acute) exacerbation (CMS/HCC V24, CMS/HCC V28) documented in this encounter Results * (ABNORMAL) Comprehensive metabolic panel (11/09/2024 6:22 AM EDT) Sodium 135 133 - 145 mmol/L LAB CHEMISTRY METHOD 11/09/2024 12:50 PM [facility] Potassium 3.6 3.5 - 5.5 mmol/L LAB CHEMISTRY METHOD 11/09/2024 12:50 PM [facility] Chloride 93(L) 96 - 110 mmol/L LAB CHEMISTRY METHOD 11/09/2024 12:50 PM [facility] CO2 35(H) 21 - 32 mmol/L LAB CHEMISTRY METHOD 11/09/2024 12:50 PM [facility] Anion Gap 7 3 - 11 LAB CHEMISTRY METHOD 11/09/2024 12:50 PM [facility] Glucose 73 70 - 100 mg/dL LAB CHEMISTRY METHOD 11/09/2024 12:50 PM [facility] BUN 15 5 - 25 mg/dL LAB CHEMISTRY METHOD 11/09/2024 12:50 PM [facility] Comment:Results verified by repeat testing Creatinine 0.97 0.50 - 1.10 mg/dL LAB CHEMISTRY METHOD 11/09/2024 12:50 PM [facility] eGFR 59(L) >=60 mL/min/1. 73m2 LAB CHEMISTRY METHOD 11/09/2024 12:50 PM [facility] Comment:Calculation based on the Chronic Kidney Disease Epidemiology Collaboration (CKD-EPI) equation refit without adjustment for race. BUN/Creatinine Ratio 15.5 LAB CHEMISTRY METHOD 11/09/2024 12:50 PM [facility] Calcium 9.0 8.5 - 10.5 mg/dL LAB CHEMISTRY METHOD 11/09/2024 12:50 PM [facility] AST (SGOT) 78(H) 10 - 42 unit/L LAB CHEMISTRY METHOD 11/09/2024 12:50 PM [facility] ALT (SGPT) 304(H) 10 - 60 unit/L LAB CHEMISTRY METHOD 11/09/2024 12:50 PM EDT [facility] Alkaline Phosphatase 254(H) 42 - 121 unit/L LAB CHEMISTRY METHOD 11/09/2024 12:50 PM T [facility] Total Protein 6.8 6.0 - 8.0 g/dL LAB CHEMISTRY METHOD 11/09/2024 12:50 PM T [facility] Albumin 3.8 3.2 - 5.0 g/dL LAB CHEMISTRY METHOD 11/09/2024 12:50 PM EDT [facility] Total Bilirubin 1.3 0.0 - 1.4 mg/dL LAB CHEMISTRY METHOD 11/09/2024 12:50 PM [facility] Blood Venous blood specimen / Unknown Venipuncture / Unknown 11/09/2024 6:22 AM EDT 11/09/2024 11:33 AM EDT us Louis Velazco MD LAB BLOOD ORDERABLES Final Resu lt [facility] [address] [place] [address], * (ABNORMAL) Complete blood count (11/09/2024 6:22 AM EDT) WBC 15.8(H) 4.8 - 10.8 K/mcL LAB HEMETOLOGY METHOD 11/09/2024 1:02 PM EDT [facility] RBC 4.80 3.80 - 4.80 M/mcL LAB HEMETOLOGY METHOD 11/09/2024 1:02 PM EDT [facility] Hemoglobin 12.4 11.5 - 16.0 g/dL LAB HEMETOLOGY METHOD 11/09/2024 1:02 PM T [facility] Hematocrit 42.1 35.0 - 47.0 % LAB HEMETOLOGY METHOD 11/09/2024 1:02 PM EDT [facility] MCV 87.2 79.0 - 98.0 FL LAB HEMETOLOGY METHOD 11/09/2024 1:02 PM EDT [facility] MCH 25.7(L) 27.0 - 32.0 pcg LAB HEMETOLOGY METHOD 11/09/2024 1:02 PM EDT [facility] MCHC 29.5(L) 32.0 - 37.0 g/dL LAB HEMETOLOGY METHOD 11/09/2024 1:02 PM EDT [facility] RDW 17.2(H) 11.0 - 15.0 % LAB HEMETOLOGY METHOD 11/09/2024 1:02 PM EDT [facility] Platelets 301 130 - 400 K/mcL LAB HEMETOLOGY METHOD 11/09/2024 1:02 PM EDT [facility] MPV 10.4 7.0 - 11.0 FL LAB HEMETOLOGY METHOD 11/09/2024 1:02 PM EDT [facility] NRBC 0.2 <1.0 % LAB HEMETOLOGY METHOD 11/09/2024 1:02 PM EDT [facility] NRBC Absolute 0.03 <0.10 K/mcL LAB [facility]EMETOLOGY [facility] Blood Venous blood specimen / Unknown Venipuncture / Unknown 11/09/2024 6:22 AM EDT 11/09/2024 11:33 AM EDT us Louis Velazco MD LAB BLOOD ORDERABLES Final Resu lt [facility] [address] [place] [address], documented in this encounter Visit Diagnoses Diagnosis Acute systolic (congestive) heart failure (CMS/HCC V24, CMS/HCC V28) Chronic obstructive pulmonary disease with (acute) exacerbation (CMS/HCC V24, CMS/HCC V28) documented in this encounter Care Teams Java [employer] Technical Lead Relationship Specialty Start Date End Date Louis Velazco MD [address] [place] [phone] PCP - General Internal Medicine 11/06/24 documented as of this encounter
--- OUTSIDE RECORDS SUMMARY | 2025-04-02 14:22 | XMS_ITS | Encounter Summary ---
Author Organization [employer] Address [address] [place] [address] Care Team Providers Care Restaurant Team Member Name Role Phone Louis Velazco MD Primary Care Provider [phone] Encounter Details Date Type Department Care Team (Late st Contact Info) Description 02/26/2025 Lab Requisition [facility] - Main Lab 299 [facility] [place] [address] Mary Barry MD [address] [address] Chronic obstructive pulmonary disease, unspecified (CMS/HCC V24, CMS/HCC V28); Anemia, unspecified Social History Tobacco Use Types Packs/Day Years Used Date Smoking Tobacco: Never Assessed Comments Unknown Sex and Gender Information Value Date Recorded Sex Assigned at Not on file Legal Sex Female 9:58 AM EDT Gender Identity Not on file Sexual Orientation Not on file documented as of this encounter Plan of Treatment Not on file documented as of this encounter Visit Diagnoses Diagnosis Chronic obstructive pulmonary disease, unspecified (CMS/HCC V24, CMS/HCC V28) Anemia, unspecified documented in this encounter Care Teams Restaurant Team Member Relationship Specialty Start Date End Date Louis Velazco MD [address] [place] [id number] PCP - General Internal Medicine 11/06/24 documented as of this encounter
--- OUTSIDE RECORDS SUMMARY | 2025-04-02 14:22 | XMS_ITS | Encounter Summary ---
Author Organization [employer] Address [address] [place] [address] Care Team Providers Care Accounts Receivable Specialist Name Role Phone Louis Velazco MD Primary Care Provider [phone] Encounter Details Date Type Department Care Team (Late st Contact Info) Description 11/06/2024 Lab Requisition [facility] - Main Lab 299 [facility] [place] [address] Louis Velazco MD [address] [place] [phone] Acute systolic (congestive) heart failure (CMS/HCC [...] mmol/L LAB CHEMISTRY METHOD 11/06/2024 11:54 AM [facility] Potassium 3.6 3.5 - 5.5 mmol/L LAB CHEMISTRY METHOD 11/06/2024 11:54 AM [facility] Chloride 94(L) 96 - 110 mmol/L LAB CHEMISTRY METHOD 11/06/2024 11:54 AM [facility] CO2 32 21 - 32 mmol/L LAB CHEMISTRY METHOD 11/06/2024 11:54 AM [facility] Anion Gap 9 3 - 11 LAB CHEMISTRY METHOD 11/06/2024 11:54 AM [facility] Glucose 95 70 - 100 mg/dL LAB CHEMISTRY METHOD 11/06/2024 11:54 AM [facility] BUN 43(H) 5 - 25 mg/dL LAB CHEMISTRY METHOD 11/06/2024 11:54 AM [facility] Creatinine 1.09 0.50 - 1.10 mg/dL LAB CHEMISTRY METHOD 11/06/2024 11:54 AM [facility] eGFR 51(L) >=60 mL/min/1. 73m2 LAB CHEMISTRY METHOD 11/06/2024 11:54 AM [facility] Comment:Calculation based on the Chronic Kidney Disease Epidemiology Collaboration (CKD-EPI) equation refit without adjustment for race. BUN/Creatinine Ratio 39.4 LAB CHEMISTRY METHOD 11/06/2024 11:54 AM [facility] Calcium 8.8 8.5 - 10.5 mg/dL LAB CHEMISTRY METHOD 11/06/2024 11:54 AM [facility] AST (SGOT) 301(H) 10 - 42 unit/L LAB CHEMISTRY METHOD 11/06/2024 11:54 AM [facility] Comment:Results verified by repeat testing ALT (SGPT) 348(H) 10 - 60 unit/L LAB CHEMISTRY METHOD 11/06/2024 11:54 AM T [facility] Comment:Results verified by repeat testing Alkaline Phosphatase 170(H) 42 - 121 unit/L LAB CHEMISTRY METHOD 11/06/2024 11:54 AM [facility] Total Protein 5.8(L) 6.0 - 8.0 g/dL LAB CHEMISTRY METHOD 11/06/2024 11:54 AM [facility] Albumin 3.5 3.2 - 5.0 g/dL LAB CHEMISTRY METHOD 11/06/2024 11:54 AM [facility] Total Bilirubin 1.1 0.0 - 1.4 mg/dL LAB CHEMISTRY METHOD 11/06/2024 11:54 AM [facility] Blood Venous blood specimen / Unknown Venipuncture / Unknown 11/06/2024 5:13 AM EDT 11/06/2024 10:04 AM EDT us Louis Velazco MD LAB BLOOD ORDERABLES Final Resu lt [facility] [address] [place] [address], * (ABNORMAL) Complete blood count (11/06/2024 5:13 AM EDT) WBC 12.7(H) 4.8 - 10.8 K/[facility] LAB HEMETOLOGY METHOD 11/06/2024 10:49 AM EDT [facility] RBC 3.60(L) 3.80 - 4.80 M/[facility] LAB HEMETOLOGY METHOD 11/06/2024 10:49 AM EDT [facility] Hemoglobin 9.2(L) 11.5 - 16.0 g/dL LAB HEMETOLOGY METHOD 11/06/2024 10:49 AM EDT [facility] Hematocrit 30.9(L) 35.0 - 47.0 % LAB HEMETOLOGY METHOD 11/06/2024 10:49 AM EDT [facility] MCV 84.9 79.0 - 98.0 FL LAB HEMETOLOGY METHOD 11/06/2024 10:49 AM EDT [facility] MCH 25.3(L) 27.0 - 32.0 pcg LAB HEMETOLOGY METHOD 11/06/2024 10:49 AM EDT [facility] MCHC 29.8(L) 32.0 - 37.0 g/dL LAB HEMETOLOGY METHOD 11/06/2024 10:49 AM EDT [facility] RDW 16.9(H) 11.0 - 15.0 % LAB HEMETOLOGY METHOD 11/06/2024 10:49 AM EDT [facility] Platelets 202 130 - 400 K/mcL LAB HEMETOLOGY METHOD 11/06/2024 10:49 AM EDT [facility] MPV 10.6 7.0 - 11.0 FL LAB HEMETOLOGY METHOD 11/06/2024 10:49 AM EDT [facility] NRBC 0.4 <1.0 % LAB HEMETOLOGY METHOD 11/06/2024 10:49 AM [facility] NRBC Absolute 0.05 <0.10 K/mcL LAB HEMETOLOGY METHOD 11/06/2024 10:49 AM EDT [facility] Blood Venous blood specimen / Unknown Venipuncture / Unknown 11/06/2024 5:13 AM EDT 11/06/2024 10:04 AM EDT us Louis Velazco MD LAB BLOOD ORDERABLES Final Resu lt [facility] [address] [place] [address], documented in this encounter Visit Diagnoses Diagnosis Acute systolic (congestive) heart failure ([facility] V24, [facility] V28) Chronic obstructive pulmonary disease with (acute) exacerbation ([facility] V24, [facility] V28) documented in this encounter Care Teams Accounts Receivable Specialist Relationship Specialty Start Date End Date Louis Velazco MD [address] [place] [address] PCP - General Internal Medicine 11/06/24 documented as of this encounter
--- OUTSIDE RECORDS SUMMARY | 2025-04-02 14:22 | XMS_ITS | Encounter Summary ---
Author Organization [employer] Address [address] [place] [address] Care Team Providers Care Light Rail Train Operator Name Role Phone Louis Velazco MD Primary Care Provider [phone] Encounter Details Date Type Department Care Team (Late st Contact Info) Description 11/11/2024 Lab Requisition [facility] - Main Lab 299 [facility] [place] [address] Louis Velazco MD [address] [place] [phone] Acute systolic (congestive) heart failure (CMS/HCC [...] Associated Diagnosis Comments COMPLETE BLOOD COUNT Routine 11/12/2024 6:41 AM EDT Acute systolic (congestive) heart failure (CMS/HCC V24, CMS/HCC V28) Chronic obstructive pulmonary disease with (acute) exacerbation (CMS/HCC V24, CMS/HCC V28) BASIC METABOLIC PANEL Routine 11/12/2024 6:41 AM EDT Acute systolic (congestive) heart failure (CMS/HCC V24, CMS/HCC V28) Chronic obstructive pulmonary disease with (acute) exacerbation (CMS/HCC V24, CMS/HCC V28) documented in this encounter Results * (ABNORMAL) Basic metabolic panel (11/12/2024 6:41 AM EDT) Sodium 133 133 - 145 mmol/L LAB CHEMISTRY METHOD 11/12/2024 9:[address] [facility] Potassium 2.9(LL) 3.5 - 5.5 mmol/L LAB CHEMISTRY METHOD 11/12/2024 9:[address] [facility] Chloride 93(L) 96 - 110 mmol/L LAB CHEMISTRY METHOD 11/12/2024 9:[address] [facility] CO2 33(H) 21 - 32 mmol/L LAB CHEMISTRY METHOD 11/12/2024 9:[address] [facility] Anion Gap 7 3 - 11 LAB CHEMISTRY METHOD 11/12/2024 9:[address] [facility] Glucose 115(H) 70 - 100 mg/dL LAB CHEMISTRY METHOD 11/12/2024 9:[address] [facility] BUN 14 5 - 25 mg/dL LAB CHEMISTRY METHOD 11/12/2024 9:[address] [facility] Creatinine 0.87 0.50 - 1.10 mg/dL LAB CHEMISTRY METHOD 11/12/2024 9:[address] [facility] eGFR 67 >=60 mL/min/1. 73m2 LAB CHEMISTRY METHOD 11/12/2024 9:[address] [facility] Comment:Calculation based on the Chronic Kidney Disease Epidemiology Collaboration (CKD-EPI) equation refit without adjustment for race. BUN/Creatinine Ratio 16.1 LAB CHEMISTRY METHOD 11/12/2024 9:[address] [facility] Calcium 9.0 8.5 - 10.5 mg/dL LAB CHEMISTRY METHOD 11/12/2024 9:[address] [facility] Blood Venous blood specimen / Unknown Venipuncture / Unknown 11/12/2024 6:41 AM EDT 11/12/2024 8:24 AM EDT us Louis Velazco MD LAB BLOOD ORDERABLES Final Resu lt [facility] [address] [place] [address], * (ABNORMAL) Complete blood count (11/12/2024 6:41 AM EDT) WBC 14.0(H) 4.8 - 10.8 K/mcL LAB HEMETOLOGY METHOD 11/12/2024 8:50 AM EDT [facility] RBC 4.30 3.80 - 4.80 M/mcL LAB HEMETOLOGY METHOD 11/12/2024 8:50 AM EDT [facility] Hemoglobin 11.0(L) 11.5 - 16.0 g/dL LAB HEMETOLOGY METHOD 11/12/2024 8:50 AM EDT [facility] Hematocrit 36.2 35.0 - 47.0 % LAB HEMETOLOGY METHOD 11/12/2024 8:50 AM EDT [facility] MCV 83.6 79.0 - 98.0 FL LAB HEMETOLOGY METHOD 11/12/2024 8:50 AM EDT [facility] MCH 25.4(L) 27.0 - 32.0 pcg LAB HEMETOLOGY METHOD 11/12/2024 8:50 AM EDT [facility] MCHC 30.4(L) 32.0 - 37.0 g/dL LAB HEMETOLOGY METHOD 11/12/2024 8:50 AM EDT [facility] RDW 17.2(H) 11.0 - 15.0 % LAB HEMETOLOGY METHOD 11/12/2024 8:50 AM EDT [facility] Platelets 262 130 - 400 K/mcL LAB HEMETOLOGY METHOD 11/12/2024 8:50 AM EDT [facility] MPV 10.2 7.0 - 11.0 FL LAB HEMETOLOGY METHOD 11/12/2024 8:50 AM EDT [facility] NRBC 0.0 <1.0 % LAB HEMETOLOGY METHOD 11/12/2024 8:50 AM EDT [facility] NRBC Absolute 0.00 <0.10 K/mcL LAB HEMETOLOGY METHOD 11/12/2024 8:50 AM EDT [facility] Blood Venous blood specimen / Unknown Venipuncture / Unknown 11/12/2024 6:41 AM EDT 11/12/2024 8:24 AM EDT us Louis Velazco MD LAB BLOOD ORDERABLES Final Resu lt [facility] [address] [place] [address], documented in this encounter Visit Diagnoses Diagnosis Acute systolic (congestive) heart failure (CMS/HCC V24, CMS/HCC V28) Chronic obstructive pulmonary disease with (acute) exacerbation (CMS/HCC V24, CMS/HCC V28) documented in this encounter Care Teams [employer] Train Operator Relationship Specialty Start Date End Date Louis Velazco MD [address] [place] [address] PCP - General Internal Medicine 11/06/24 documented as of this encounter
--- OUTSIDE RECORDS SUMMARY | 2025-04-02 14:22 | XMS_ITS | Encounter Summary ---
Author Organization [employer] Address [address] [place] [address] Care Team Providers Care Personnel Associate Name Role Phone Louis Velazco MD Primary Care Provider [phone] Encounter Details Date Type Department Care Team (Late st Contact Info) Description 02/27/2025 Lab Requisition [facility] - Main Lab [address] [facility] [place] [address] Betito Ledezma MD [address] [place] [address] Pneumonia, unspecified organism; Hyperkalemia; Heart failure, unspecified (CMS/HCC V24, CMS/HCC V28); Respiratory failure, unspecified with hypoxia (CMS/HCC V24, CMS/HCC V28); Acute on chronic diastolic (congestive) heart failure (CMS/HCC V24, CMS/HCC V28) Social History Tobacco [...] Procedure Name Priority Date/Time Associated Diagnosis Comments VITAMIN B12 AND FOLATE Routine 03/02/2025 9:24 AM EDT Pneumonia, unspecified organism Hyperkalemia Heart failure, unspecified (CMS/HCC V24, CMS/HCC V28) Respiratory failure, unspecified with hypoxia (CMS/HCC V24, CMS/HCC V28) Acute on chronic diastolic (congestive) heart failure (CMS/HCC V24, CMS/HCC V28) LIPID PANEL WITH REFLEX TO DIRECT LDL Routine 03/02/2025 9:24 AM EDT Pneumonia, unspecified organism Hyperkalemia Heart failure, unspecified (CMS/HCC V24, CMS/HCC V28) Respiratory failure, unspecified with hypoxia (CMS/HCC V24, CMS/HCC V28) Acute on chronic diastolic (congestive) heart failure (CMS/HCC V24, CMS/HCC V28) IRON AND TIBC Routine 03/02/2025 9:24 AM EDT Pneumonia, unspecified organism Hyperkalemia Heart failure, unspecified (CMS/HCC V24, CMS/HCC V28) Respiratory failure, unspecified with hypoxia (CMS/HCC V24, CMS/HCC V28) Acute on chronic diastolic (congestive) heart failure (CMS/HCC V24, CMS/HCC V28) COMPLETE BLOOD COUNT Routine 03/02/2025 9:24 AM EDT Pneumonia, unspecified organism Hyperkalemia Acute on chronic diastolic (congestive) heart failure (CMS/HCC V24, CMS/HCC V28) THYROID STIMULATING HORMONE Routine 03/02/2025 9:24 AM EDT Pneumonia, unspecified organism Hyperkalemia Heart failure, unspecified (CMS/HCC V24, CMS/HCC V28) Respiratory failure, unspecified with hypoxia (CMS/HCC V24, CMS/HCC V28) Acute on chronic diastolic (congestive) heart failure (CMS/HCC V24, CMS/HCC V28) THYROXINE FREE Routine 03/02/2025 9:24 AM EDT Pneumonia, unspecified organism Hyperkalemia Heart failure, unspecified (CMS/HCC V24, CMS/HCC V28) Respiratory failure, unspecified with hypoxia (CMS/HCC V24, CMS/HCC V28) Acute on chronic diastolic (congestive) heart failure (CMS/HCC V24, CMS/HCC V28) HEMOGLOBIN A1C Routine 03/02/2025 9:24 AM EDT Pneumonia, unspecified organism Hyperkalemia Heart failure, unspecified (CMS/HCC V24, CMS/HCC V28) Respiratory failure, unspecified with hypoxia (CMS/HCC V24, CMS/HCC V28) Acute on chronic diastolic (congestive) heart failure (CMS/HCC V24, CMS/HCC V28) FERRITIN Routine 03/02/2025 9:24 AM EDT Pneumonia, unspecified organism Hyperkalemia Heart failure, unspecified ([facility] V24, [facility] V28) Respiratory failure, unspecified with hypoxia ([facility] V24, [facility] V28) Acute on chronic diastolic (congestive) heart failure ([facility] V24, [facility] V28) BASIC METABOLIC PANEL Routine 03/02/2025 9:24 AM EDT Pneumonia, unspecified organism Hyperkalemia Acute on chronic diastolic (congestive) heart failure ([facility] V24, [facility] V28) documented in this encounter Results * Hemoglobin A1c (03/02/2025 9:24 AM EDT) Pathologist [facility] Hemoglobin A1C 6.1 <6.5 % LAB CHEMISTRY METHOD 03/03/2025 10:51 AM EDT [facility] Mean Bld Glu Estim. 128 mg/dL LAB CHEMISTRY METHOD 03/03/2025 10:51 AM EDT [facility] Blood Venous blood specimen / Unknown Venipuncture / Unknown 03/02/2025 9:24 AM EDT 03/02/2025 11:23 AM EDT Betito Ledezma MD LAB BLOOD ORDERABLES Final Result [facility] [address] [place] [address], * Ferritin (03/02/2025 9:24 AM EDT) Pathologist [facility] Ferritin 63 8 - 252 ng/mL LAB CHEMISTRY METHOD 03/02/2025 4:11 PM EDT [facility] Blood Venous blood specimen / Unknown Venipuncture / Unknown 03/02/2025 9:24 AM EDT 03/02/2025 11:23 AM EDT Betito Ledezma MD LAB BLOOD ORDERABLES Final Result [facility] [address] [place] [address], [place] [phone] * (ABNORMAL) Vitamin B12 and folate (03/02/2025 9:24 AM EDT) Vitamin B-12 >2,000(H) 250 - 900 pcg/mL LAB CHEMISTRY METHOD 03/02/2025 4:11 PM EDT [facility] Folate 15.3 2.8 - 17.0 ng/ml LAB CHEMISTRY METHOD 03/02/2025 4:11 PM EDT [facility] Blood Venous blood specimen / Unknown Venipuncture / Unknown 03/02/2025 9:24 AM EDT 03/02/2025 11:23 AM EDT Betito Ledezma MD LAB BLOOD ORDERABLES Final Result [facility] [address] [place] [address], [place] [phone] * (ABNORMAL) Iron and TIBC (03/02/2025 9:24 AM EDT) Iron 20(L) 40 - 150 mcg/dL LAB CHEMISTRY METHOD 03/02/2025 4:11 PM EDT [facility] TIBC 485(H) 250 - 450 mcg/dL LAB CHEMISTRY METHOD 03/02/2025 4:11 PM EDT [facility] Iron Saturation 4(L) 15 - 50 % LAB CHEMISTRY METHOD 03/02/2025 4:11 PM EDT [facility] Blood Venous blood specimen / Unknown Venipuncture / Unknown 03/02/2025 9:24 AM EDT 03/02/2025 11:23 AM EDT Betito Ledezma MD LAB BLOOD ORDERABLES Final Result [facility] [address] [place] [address], [place] [phone] * Lipid panel with reflex to direct LDL (03/02/2025 9:24 AM EDT) Cholesterol 128 0 - 200 mg/dL LAB CHEMISTRY METHOD 03/02/2025 4:11 PM EDT [facility] Triglycerides 62 0 - 150 mg/dL LAB CHEMISTRY METHOD 03/02/2025 4:11 PM EDT [facility] HDL 69 >=40 mg/dL LAB CHE[facility]STRY METHOD [facility]/02[facility]25 4:11 PM [facility] LDL Calculated 47 0 - 100 mg/dL LAB CHEMISTRY METHOD 03/02/2025 4:11 PM EDT [facility] Comment:Estimated LDL Calcul ated using equation: Total cholesterol - HDL cholesterol - (Triglycerides/5) VLDL Cholesterol David 12.4 mg/dL LAB CHEMISTRY METHOD 03/02/2025 4:11 PM EDT [facility] Non HDL Chol. (LDL+VLDL) 59 <145 mg/dL LAB CHEMISTRY METHOD 03/02/2025 4:11 PM EDT [facility] Chol/HDL Ratio 1.9 0.0 - 4.4 LAB CHEMISTRY METHOD 03/02/2025 4:11 PM T [facility] Blood Venous blood specimen / Unknown Venipuncture / Unknown 03/02/2025 9:24 AM EDT 03/02/2025 11:23 AM EDT Betito Ledezma MD LAB BLOOD ORDERABLES Final Result [facility] [address] [place] [address], [place] [phone] * (ABNORMAL) Thyroid stimulating hormone (03/02/2025 9:24 AM EDT) TSH 8.29(H) 0.40 - 4.00 mcIU/mL LAB CHEMISTRY METHOD 03/02/2025 4:40 PM EDT [facility] Blood Venous blood specimen / Unknown Venipuncture / Unknown 03/02/2025 9:24 AM EDT 03/02/2025 11:23 AM EDT Betito Ledezma MD LAB BLOOD ORDERABLES Final Result [facility] [address] [place] [address], [place] [phone] * Thyroxine free (03/02/2025 9:24 AM EDT) Pathologist [facility] Free T4 1.37 0.70 - 1.80 ng/dL LAB CHEMISTRY METHOD 03/02/2025 4:40 PM EDT [facility] Blood Venous blood specimen / Unknown Venipuncture / Unknown 03/02/2025 9:24 AM EDT 03/02/2025 11:23 AM EDT Betito Ledezma MD LAB BLOOD ORDERABLES Final Result [facility] [address] [place] [address], [place] [phone] * (ABNORMAL) Complete blood count (03/02/2025 9:24 AM EDT) WBC 8.9 4.8 - 10.8 K/[facility] LAB HEMETOLOGY METHOD 03/02/2025 1:43 PM EDT [facility] RBC 3.70(L) 3.80 - 4.80 M/[facility] LAB HEMETOLOGY METHOD 03/02/2025 1:43 PM EDT [facility] Hemoglobin 8.3(L) 11.5 - 16.0 g/dL LAB HEMETOLOGY METHOD 03/02/2025 1:43 PM EDT [facility] Hematocrit 29.3(L) 35.0 - 47.0 % LAB HEMETOLOGY METHOD 03/02/2025 1:[address] [facility] MCV 78.6(L) 79.0 - 98.0 FL LAB HEMETOLOGY METHOD 03/02/2025 1:43 [facility] MCH 22.3(L) 27.0 - 32.0 pcg LAB HEMETOLOGY METHOD 03/02/2025 1:[address] [facility] MCHC 28.3(L) 32.0 - 37.0 g/dL LAB HEMETOLOGY METHOD 03/02/2025 1:[address] [facility] RDW 22.7(H) 11.0 - 15.0 % LAB HEMETOLOGY METHOD 03/02/2025 1:43 PM [facility] Platelets 165 130 - 400 K/mcL LAB HEMETOLOGY METHOD 03/02/2025 1:[address] [facility] MPV 9.7 7.0 - 11.0 FL LAB HEMETOLOGY METHOD 03/02/2025 1:[address] [facility] NRBC 0.0 <1.0 % LAB HEMETOLOGY METHOD 03/02/2025 1:43 PM T [facility] NRBC Absolute 0.00 <0.10 K/mcL LAB HEMETOLOGY METHOD 03/02/2025 1:[address] [facility] Blood Venous blood specimen / Unknown Venipuncture / Unknown 03/02/2025 9:24 AM EDT 03/02/2025 11:23 AM EDT Betito Ledezma MD LAB BLOOD ORDERABLES Final Result [facility] [address] [place] [address], [place] [phone] * (ABNORMAL) Basic metabolic panel (03/02/2025 9:24 AM EDT) Sodium 130(L) 133 - 145 mmol/L LAB CHEMISTRY METHOD 03/02/2025 3:45 PM EDT [facility] Potassium 3.3(L) 3.5 - 5.5 mmol/L LAB CHEMISTRY METHOD 03/02/2025 3:45 PM EDT [facility] Chloride 87(L) 96 - 110 mmol/L LAB CHEMISTRY METHOD 03/02/2025 3:[address] [facility] CO2 33(H) 21 - 32 mmol/L LAB CHEMISTRY METHOD 03/02/2025 3:45 PM [facility] Anion Gap 10 3 - 11 LAB CHEMISTRY METHOD 03/02/2025 3:45 PM [facility] Glucose 103(H) 70 - 100 mg/dL LAB CHEMISTRY METHOD 03/02/2025 3:[address] [facility] BUN 17 5 - 25 mg/dL LAB CHEMISTRY METHOD 03/02/2025 3:[address] [facility] Creatinine 0.86 0.50 - 1.10 mg/dL LAB CHEMISTRY METHOD 03/02/2025 3:45 PM [facility] eGFR 68 >=60 mL/min/1. 73m2 LAB CHEMISTRY METHOD 03/02/2025 3:45 PM [facility] Comment:Calculation based on the Chronic Kidney Disease Epidemiology Collaboration (CKD-EPI) equation refit without adjustment for race. BUN/Creatinine Ratio 19.8 LAB CHEMISTRY METHOD 03/02/2025 3:[address] [facility] Calcium 8.6 8.5 - 10.5 mg/dL LAB CHEMISTRY METHOD 03/02/2025 3:45 PM EDT [facility] Blood Venous blood specimen / Unknown Venipuncture / Unknown 03/02/2025 9:24 AM EDT 03/02/2025 11:23 AM EDT Betito Ledezma MD LAB BLOOD ORDERABLES Final Result [facility] [address] [place] [address], documented in this encounter Visit Diagnoses Diagnosis Pneumonia, unspecified organism Hyperkalemia Hyperpotassemia Heart failure, unspecified ([facility] V24, [facility] V28) Heart failure, unspecified Respiratory failure, unspecified with hypoxia (CMS/[facility] V24, [facility] V28) Acute on chronic diastolic (congestive) heart failure ([facility] V24, [facility] V28) documented in this encounter Care Teams Personnel Associate Relationship Specialty Start Date End Date Louis Velazco MD [address] [place] [address] PCP - General Internal Medicine 11/06/24 documented as of this encounter
--- OUTSIDE RECORDS SUMMARY | 2025-04-02 14:22 | XMS_ITS | Encounter Summary ---
Author Organization [facility] Address [address] [place] [address] Care Team Providers Care Armored Cable Machine Operator Name Role Phone Louis Velazco MD Primary Care Provider [phone] Encounter Details Date Type Department Care Team (Late st Contact Info) Description 03/03/2025 Lab Requisition [facility] - Main Lab [address] [place] [address] Betito Ledezma MD [address] [place] [address] Hypokalemia Social History Tobacco Use Types Packs/Day Years [...] Associated Diagnosis Comments COMPLETE BLOOD COUNT Routine 03/03/2025 6:15 AM EDT Hypokalemia BASIC METABOLIC PANEL Routine 03/03/2025 6:15 AM EDT Hypokalemia documented in this encounter Results * (ABNORMAL) Basic metabolic panel (03/03/2025 6:15 AM EDT) Sodium 131(L) 133 - 145 mmol/L LAB CHEMISTRY METHOD 03/03/2025 10:44 AM EDT [facility] Potassium 3.7 3.5 - 5.5 mmol/L LAB CHEMISTRY METHOD 03/03/2025 10:44 AM T [facility] Chloride 88(L) 96 - 110 mmol/L LAB CHEMISTRY METHOD 03/03/2025 10:44 AM [facility] CO2 35(H) 21 - 32 mmol/L LAB CHEMISTRY METHOD 03/03/2025 10:44 AM [facility] Anion Gap 8 3 - 11 LAB CHEMISTRY METHOD 03/03/2025 10:44 AM [facility] Glucose 66(L) 70 - 100 mg/dL LAB CHEMISTRY METHOD 03/03/2025 10:44 AM [facility] BUN 19 5 - 25 mg/dL LAB CHEMISTRY METHOD 03/03/2025 10:44 AM [facility] Creatinine 0.76 0.50 - 1.10 mg/dL LAB CHEMISTRY METHOD 03/03/2025 10:44 AM [facility] eGFR 79 >=60 mL/min/1. 73m2 LAB CHEMISTRY METHOD 03/03/2025 10:44 AM [facility] Comment:Calculation based on the Chronic Kidney Disease Epidemiology Collaboration (CKD-EPI) equation refit without adjustment for race. BUN/Creatinine Ratio 25.0 LAB CHEMISTRY METHOD 03/03/2025 10:44 AM [facility] Calcium 8.7 8.5 - 10.5 mg/dL LAB CHEMISTRY METHOD 03/03/2025 10:44 AM [facility] Blood Venous blood specimen / Unknown Venipuncture / Unknown 03/03/2025 6:15 AM EDT 03/03/2025 9:33 AM EDT us Betito Ledezma MD LAB BLOOD ORDERABLES Final Result [facility] [address] [place] [address], * (ABNORMAL) Complete blood count (03/03/2025 6:15 AM EDT) WBC 8.0 4.8 - 10.8 K/[facility] LAB HEMETOLOGY METHOD 03/03/2025 10:42 AM [facility] RBC 3.50(L) 3.80 - 4.80 M/mcL LAB HEMETOLOGY METHOD 03/03/2025 10:42 AM [facility] Hemoglobin 7.7(L) 11.5 - 16.0 g/dL LAB HEMETOLOGY METHOD 03/03/2025 10:42 AM [facility] Hematocrit 27.3(L) 35.0 - 47.0 % LAB HEMETOLOGY METHOD 03/03/2025 10:42 AM [facility] MCV 78.0(L) 79.0 - 98.0 FL LAB HEMETOLOGY METHOD 03/03/2025 10:42 AM [facility] MCH 22.0(L) 27.0 - 32.0 pcg LAB HEMETOLOGY METHOD 03/03/2025 10:42 AM [facility] MCHC 28.2(L) 32.0 - 37.0 g/dL LAB HEMETOLOGY METHOD 03/03/2025 10:42 AM [facility] RDW 22.0(H) 11.0 - 15.0 % LAB HEMETOLOGY METHOD 03/03/2025 10:42 AM [facility] Platelets 145 130 - 400 K/mcL LAB HEMETOLOGY METHOD 03/03/2025 10:42 AM [facility] MPV 10.0 7.0 - 11.0 FL LAB HEMETOLOGY METHOD 03/03/2025 10:42 AM [facility] NRBC 0.0 <1.0 % LAB HEMETOLOGY METHOD 03/03/2025 10:42 AM [facility] NRBC Absolute 0.00 <0.10 K/mcL LAB HEMETOLOGY METHOD 03/03/2025 10:42 AM [facility] Blood Venous blood specimen / Unknown Venipuncture / Unknown 03/03/2025 6:15 AM EDT 03/03/2025 9:33 AM EDT us Betito Ledezma MD LAB BLOOD ORDERABLES Final Result [facility] [address] [place] [address], documented in this encounter Visit Diagnoses Diagnosis Hypokalemia Hypopotassemia documented in this encounter Care Teams Armored Cable Machine Operator Relationship Specialty Start Date End Date Louis Velazco MD [address] [place] [address] PCP - General Internal Medicine 11/06/24 documented as of this encounter
--- OUTSIDE RECORDS SUMMARY | 2025-04-02 14:22 | XMS_ITS | Encounter Summary ---
Author Organization [facility] Address [address] [place] [address] Care Team Providers Care Material Control Analyst Name Role Phone Louis Velazco MD Primary Care Provider [phone] Encounter Details Date Type Department Care Team (Late st Contact Info) Description 11/14/2024 Lab Requisition [facility] - Main Lab [address] [facility] [place] [address] Louis Velazco MD [address] [place] [phone] Acute systolic (congestive) heart failure (CMS/HCC [...] Associated Diagnosis Comments COMPLETE BLOOD COUNT Routine 11/16/2024 5:42 AM EDT Acute systolic (congestive) heart failure (CMS/HCC V24, CMS/HCC V28) Chronic obstructive pulmonary disease with (acute) exacerbation (CMS/HCC V24, CMS/HCC V28) COMPREHENSIVE METABOLIC PANEL Routine 11/16/2024 5:42 AM EDT Acute systolic (congestive) heart failure (CMS/HCC V24, CMS/HCC V28) Chronic obstructive pulmonary disease with (acute) exacerbation (CMS/HCC V24, CMS/HCC V28) documented in this encounter Results * (ABNORMAL) Comprehensive metabolic panel (11/16/2024 5:42 AM EDT) Sodium 140 133 - 145 mmol/L LAB CHEMISTRY METHOD 11/16/2024 3:26 PM [facility] Potassium 3.4(L) 3.5 - 5.5 mmol/L LAB CHEMISTRY METHOD 11/16/2024 3:26 PM [facility] Chloride 96 96 - 110 mmol/L LAB CHEMISTRY METHOD 11/16/2024 3:26 PM [facility] CO2 34(H) 21 - 32 mmol/L LAB CHEMISTRY METHOD 11/16/2024 3:26 PM [facility] Anion Gap 10 3 - 11 LAB CHEMISTRY METHOD 11/16/2024 3:26 PM [facility] Glucose 70 70 - 100 mg/dL LAB CHEMISTRY METHOD 11/16/2024 3:26 PM [facility] BUN 9 5 - 25 mg/dL LAB CHEMISTRY METHOD 11/16/2024 3:26 PM [facility] Creatinine 0.91 0.50 - 1.10 mg/dL LAB CHEMISTRY METHOD 11/16/2024 3:26 PM [facility] eGFR 64 >=60 mL/min/1. 73m2 LAB CHEMISTRY METHOD 11/16/2024 3:26 PM [facility] Comment:Calculation based on the Chronic Kidney Disease Epidemiology Collaboration (CKD-EPI) equation refit without adjustment for race. BUN/Creatinine Ratio 9.9 LAB CHEMISTRY METHOD 11/16/2024 3:26 PM [facility] Calcium 9.0 8.5 - 10.5 mg/dL LAB CHEMISTRY METHOD 11/16/2024 3:26 PM [facility] AST (SGOT) 28 10 - 42 unit/L LAB CHEMISTRY METHOD 11/16/2024 3:26 PM [facility] ALT (SGPT) 53 10 - 60 unit/L LAB CHEMISTRY METHOD 11/16/2024 3:26 PM EDT [facility] Comment:Results verified by repeat testing Alkaline Phosphatase 240(H) 42 - 121 unit/L LAB CHEMISTRY METHOD 11/16/2024 3:26 PM EDT [facility] Total Protein 6.0 6.0 - 8.0 g/dL LAB CHEMISTRY METHOD 11/16/2024 3:26 PM EDT [facility] Albumin 3.0(L) 3.2 - 5.0 g/dL LAB CHEMISTRY METHOD 11/16/2024 3:26 PM EDT [facility] Total Bilirubin 0.8 0.0 - 1.4 mg/dL LAB CHEMISTRY METHOD 11/16/2024 3:26 PM EDT [facility] Blood Venous blood specimen / Unknown Venipuncture / Unknown 11/16/2024 5:42 AM EDT 11/16/2024 11:44 AM EDT us Louis Velazco MD LAB BLOOD ORDERABLES Final Resu lt [facility] [address] [place] [address], [place] [phone] * (ABNORMAL) Complete blood count (11/16/2024 5:42 AM EDT) WBC 11.3(H) 4.8 - 10.8 K/mcL LAB HEMETOLOGY METHOD 11/16/2024 3:18 PM EDT [facility] RBC 4.20 3.80 - 4.80 M/mcL LAB HEMETOLOGY METHOD 11/16/2024 3:18 PM EDT [facility] Hemoglobin 10.3(L) 11.5 - 16.0 g/dL LAB HEMETOLOGY METHOD 11/16/2024 3:18 PM EDT [facility] Hematocrit 37.0 35.0 - 47.0 % LAB HEMETOLOGY METHOD 11/16/2024 3:18 PM EDT [facility] MCV 87.7 79.0 - 98.0 FL LAB HEMETOLOGY METHOD 11/16/2024 3:18 PM EDT [facility] MCH 24.4(L) 27.0 - 32.0 pcg LAB HEMETOLOGY METHOD 11/16/2024 3:18 PM EDT [facility] MCHC 27.8(L) 32.0 - 37.0 g/dL LAB HEMETOLOGY METHOD 11/16/2024 3:18 PM EDT [facility] RDW 18.2(H) 11.0 - 15.0 % LAB HEMETOLOGY METHOD 11/16/2024 3:18 PM EDT [facility] Platelets 341 130 - 400 K/mcL LAB HEMETOLOGY METHOD 11/16/2024 3:18 PM EDT [facility] MPV 10.0 7.0 - 11.0 FL LAB HEMETOLOGY METHOD 11/16/2024 3:18 PM EDT [facility] NRBC 0.0 <1.0 % LAB HEMETOLOGY METHOD 11/16/2024 3:18 PM EDT [facility] NRBC Absolute 0.00 <0.10 K/mcL LAB HEMETOLOGY METHOD 11/16/2024 3:18 PM EDT [facility] Blood Venous blood specimen / Unknown Venipuncture / Unknown 11/16/2024 5:42 AM EDT 11/16/2024 11:44 AM EDT us Louis Velazco MD LAB BLOOD ORDERABLES Final Resu lt [facility] [address] [place] [address], [place] [phone] documented in this encounter Visit Diagnoses Diagnosis Acute systolic (congestive) heart failure (CMS/HCC V24, CMS/HCC V28) Chronic obstructive pulmonary disease with (acute) exacerbation (CMS/HCC V24, CMS/HCC V28) documented in this encounter Care Teams Material Control Analyst Relationship Specialty Start Date End Date Louis Velazco MD [address] [place] [address] PCP - General Internal Medicine 11/06/24 documented as of this encounter
--- OUTSIDE RECORDS SUMMARY | 2025-04-02 14:22 | XMS_ITS | Encounter Summary ---
Author Organization [employer] Address [address] [place] [address] Care Team Providers Care Bingo Usher Name Role Phone Louis Velazco MD Primary Care Provider [phone] Encounter Details Date Type Department Care Team (Late st Contact Info) Description 03/05/2025 Lab Requisition [facility] - Main Lab [address] [place] [address] Betito Ledezma MD [address] [place] [address] Pneumonia, unspecified organism; Hyperkalemia Social History Tobacco Use Types Packs/Day Years [...] Associated Diagnosis Comments COMPLETE BLOOD COUNT Routine 03/08/2025 9:19 AM EDT Pneumonia, unspecified organism Hyperkalemia BASIC METABOLIC PANEL Routine 03/08/2025 9:19 AM EDT Pneumonia, unspecified organism Hyperkalemia documented in this encounter Results * (ABNORMAL) Basic metabolic panel (03/08/2025 9:19 AM EDT) Sodium 130(L) 133 - 145 mmol/L LAB CHEMISTRY METHOD 03/08/2025 12:39 PM EDT [facility] Potassium 3.5 3.5 - 5.5 mmol/L LAB CHEMISTRY METHOD 03/08/2025 12:39 PM EDT [facility] Chloride 88(L) 96 - 110 mmol/L LAB CHEMISTRY METHOD 03/08/2025 12:39 PM [facility] CO2 35(H) 21 - 32 mmol/L LAB CHEMISTRY METHOD 03/08/2025 12:39 PM [facility] Anion Gap 7 3 - 11 LAB CHEMISTRY METHOD 03/08/2025 12:39 PM [facility] Glucose 150(H) 70 - 100 mg/dL LAB CHEMISTRY METHOD 03/08/2025 12:39 PM [facility] BUN 17 5 - 25 mg/dL LAB CHEMISTRY METHOD 03/08/2025 12:39 PM [facility] Creatinine 0.88 0.50 - 1.10 mg/dL LAB CHEMISTRY METHOD 03/08/2025 12:39 PM [facility] eGFR 67 >=60 mL/min/1. 73m2 LAB CHEMISTRY METHOD 03/08/2025 12:39 PM [facility] Comment:Calculation based on the Chronic Kidney Disease Epidemiology Collaboration (CKD-EPI) equation refit without adjustment for race. BUN/Creatinine Ratio 19.3 LAB CHEMISTRY METHOD 03/08/2025 12:39 PM [facility] Calcium 9.0 8.5 - 10.5 mg/dL LAB CHEMISTRY METHOD 03/08/2025 12:39 PM [facility] Blood Venous blood specimen / Unknown Venipuncture / Unknown 03/08/2025 9:19 AM EDT 03/08/2025 10:44 AM EDT us Betito Ledezma MD LAB BLOOD ORDERABLES Final Result [facility] [address] [place] [address], * (ABNORMAL) Complete blood count (03/08/2025 9:19 AM EDT) WBC 6.8 4.8 - 10.8 K/mcL LAB HEMETOLOGY METHOD 03/08/2025 12:26 PM [facility] RBC 3.70(L) 3.80 - 4.80 M/mcL LAB HEMETOLOGY METHOD 03/08/2025 12:26 PM [facility] Hemoglobin 8.2(L) 11.5 - 16.0 g/dL LAB HEMETOLOGY METHOD 03/08/2025 12:26 PM [facility] Hematocrit 28.9(L) 35.0 - 47.0 % LAB HEMETOLOGY METHOD 03/08/2025 12:26 PM [facility] MCV 78.1(L) 79.0 - 98.0 FL LAB HEMETOLOGY METHOD 03/08/2025 12:26 PM [facility] MCH 22.2(L) 27.0 - 32.0 pcg LAB HEMETOLOGY METHOD 03/08/2025 12:26 PM [facility] MCHC 28.4(L) 32.0 - 37.0 g/dL LAB HEMETOLOGY METHOD 03/08/2025 12:26 PM [facility] RDW 22.0(H) 11.0 - 15.0 % LAB HEMETOLOGY METHOD 03/08/2025 12:26 PM [facility] Platelets 262 130 - 400 K/mcL LAB HEMETOLOGY METHOD 03/08/2025 12:26 PM [facility] MPV 10.5 7.0 - 11.0 FL LAB HEMETOLOGY METHOD 03/08/2025 12:26 PM [facility] NRBC 0.0 <1.0 % LAB HEMETOLOGY METHOD 03/08/2025 12:26 PM [facility] NRBC Absolute 0.00 <0.10 K/mcL LAB HEMETOLOGY METHOD 03/08/2025 12:26 PM EDT [facility] Blood Venous blood specimen / Unknown Venipuncture / Unknown 03/08/2025 9:19 AM EDT 03/08/2025 10:44 AM EDT us Betito Ledezma MD LAB BLOOD ORDERABLES Final Result [facility] [address] [place] [address], documented in this encounter Visit Diagnoses Diagnosis Pneumonia, unspecified organism Hyperkalemia Hyperpotassemia documented in this encounter Care Teams Bingo Usher Relationship Specialty Start Date End Date Louis Velazco MD [address] [place] [address] PCP - General Internal Medicine 11/06/24 documented as of this encounter
--- OUTSIDE RECORDS SUMMARY | 2025-04-02 14:22 | XMS_ITS | Patient Health Record ---
Author Organization [facility] Address [address] [place] [address] Care Team Providers Care Project Management Instructor Name Role Phone Parul Cartagena Primary Care Provider Unavailab Mick Quiroz Unavailable [phone] Reason For Referral No Information Medications Medication [...] Problem Status W/U Status Risk Notes Problem [id number] Encounter for screening for malignant neoplasm of colon (Z12.11) Active confirmed Problem Screening for malignant neoplasm of rectum (843227028) Encounter for screening for malignant neoplasm of rectum (Z12.12) Active confirmed Problem [id number] Abdominal pain, epigastric (R10.13) Active confirmed Problem [id number] Gastroesophageal reflux disease, esophagitis presence not specified (K21.9) Active confirmed Problem Anemia (106107664) Anemia (D64.9) Active confirmed Plan Of Treatment Future Test Test Name Order Date UPPER GI ENDOSCOPY 07/20/2016 COLONOSCOPY 07/20/2016 Insurance Providers Payer Name Payer Address Payer Phone Subscriber Number Group Number Insured Name Patient Relationship to Insured Coverage Start Date Coverage End Date [employer] [address] [place] [phone] [id number] KHURRAM LAZARO Self - patient is the insured Medical (General) History Medical History History ICD Code Hypertension COPD Denies HI,DM,CVA,renal disease GERD Neg. Hemoccults in 05/2016--she does the m yearly Chest pain 07/2016--having a cardiac w/u with Dr. Reilly--ETT and Cardiac ECHO Surgical History Surgery Date(Month/Year) Hysterectomy and removal of 1 ovary 1980 Tonsils/adenoids
--- OUTSIDE RECORDS SUMMARY | 2025-04-02 14:22 | XMS_ITS | Encounter Summary ---
Author Organization [employer] Address [address] [place] [address] Care Team Providers Care Preventive Medicine Specialist Name Role Phone Louis Velazco MD Primary Care Provider [phone] Encounter Details Date Type Department Care Team (Late st Contact Info) Description 03/04/2025 Lab Requisition [facility] - Main Lab [address] [place] [address] Betito Ledezma MD [address] [place] [address] Essential (primary) hypertension; Anemia, unspecified Social History Tobacco Use Types [...] Associated Diagnosis Comments COMPLETE BLOOD COUNT Routine 03/05/2025 6:56 AM EDT Essential (primary) hypertension Anemia, unspecified IRON Routine 03/05/2025 6:56 AM EDT Essential (primary) hypertension Anemia, unspecified BASIC METABOLIC PANEL Routine 03/05/2025 6:56 AM EDT Essential (primary) hypertension Anemia, unspecified documented in this encounter Results * (ABNORMAL) Basic metabolic panel (03/05/2025 6:56 AM EDT) Sodium 133 133 - 145 mmol/L LAB CHEMISTRY METHOD 03/05/2025 9:53 AM EDT [facility] Potassium 3.1(L) 3.5 - 5.5 mmol/L LAB CHEMISTRY METHOD 03/05/2025 9:53 AM [facility] Chloride 90(L) 96 - 110 mmol/L LAB CHEMISTRY METHOD 03/05/2025 9:53 AM [facility] CO2 38(H) 21 - 32 mmol/L LAB CHEMISTRY METHOD 03/05/2025 9:53 AM [facility] Anion Gap 5 3 - 11 LAB CHEMISTRY METHOD 03/05/2025 9:53 AM [facility] Glucose 78 70 - 100 mg/dL LAB CHEMISTRY METHOD 03/05/2025 9:53 AM [facility] BUN 19 5 - 25 mg/dL LAB CHEMISTRY METHOD 03/05/2025 9:53 AM [facility] Creatinine 0.82 0.50 - 1.10 mg/dL LAB CHEMISTRY METHOD 03/05/2025 9:53 AM [facility] eGFR 72 >=60 mL/min/1. 73m2 LAB CHEMISTRY METHOD 03/05/2025 9:53 AM [facility] Comment:Calculation based on the Chronic Kidney Disease Epidemiology Collaboration (CKD-EPI) equation refit without adjustment for race. BUN/Creatinine Ratio 23.2 LAB CHEMISTRY METHOD 03/05/2025 9:53 AM [facility] Calcium 8.7 8.5 - 10.5 mg/dL LAB CHEMISTRY METHOD 03/05/2025 9:53 AM [facility] Blood Venous blood specimen / Unknown Venipuncture / Unknown 03/05/2025 6:56 AM EDT 03/05/2025 8:46 AM EDT us Betito Ledezma MD LAB BLOOD ORDERABLES Final Result [facility] [address] [place] [address], * (ABNORMAL) Iron (03/05/2025 6:56 AM EDT) Pathologist [facility] Iron 15(L) 40 - 150 mcg/dL LAB CHEMISTRY METHOD 03/05/2025 9:47 AM [facility] Blood Venous blood specimen / Unknown Venipuncture / Unknown 03/05/2025 6:56 AM EDT 03/05/2025 8:46 AM EDT Betito Ledezma MD LAB BLOOD ORDERABLES Final Result [facility] [address] [place] [address], * (ABNORMAL) Complete blood count (03/05/2025 6:56 AM EDT) [facility] WBC 6.6 4.8 - 10.8 K/mcL LAB HEMETOLOGY METHOD 03/05/2025 9:01 AM [facility] RBC 3.50(L) 3.80 - 4.80 M/mcL LAB HEMETOLOGY METHOD 03/05/2025 9:01 AM [facility] Hemoglobin 7.7(L) 11.5 - 16.0 g/dL LAB HEMETOLOGY METHOD 03/05/2025 9:01 AM [facility] Hematocrit 27.1(L) 35.0 - 47.0 % LAB HEMETOLOGY METHOD 03/05/2025 9:01 AM [facility] MCV 76.8(L) 79.0 - 98.0 FL LAB HEMETOLOGY METHOD 03/05/2025 9:01 AM [facility] MCH 21.8(L) 27.0 - 32.0 pcg LAB HEMETOLOGY METHOD 03/05/2025 9:01 AM [facility] MCHC 28.4(L) 32.0 - 37.0 g/dL LAB HEMETOLOGY METHOD 03/05/2025 9:[address] [facility] RDW 21.5(H) 11.0 - 15.0 % LAB HEMETOLOGY METHOD 03/05/2025 9:[address] [facility] Platelets 162 130 - 400 K/mcL LAB HEMETOLOGY METHOD 03/05/2025 9:[address] [facility] MPV 9.6 7.0 - 11.0 FL LAB HEMETOLOGY METHOD 03/05/2025 9:[address] [facility] NRBC 0.0 <1.0 % LAB HEMETOLOGY METHOD 03/05/2025 9:[address] [facility] NRBC Absolute 0.00 <0.10 K/mcL LAB HEMETOLOGY METHOD 03/05/2025 9:[address] [facility] Blood Venous blood specimen / Unknown Venipuncture / Unknown 03/05/2025 6:56 AM EDT 03/05/2025 8:46 AM EDT us Betito Ledezma MD LAB BLOOD ORDERABLES Final Result [facility] [address] [place] [address], documented in this encounter Visit Diagnoses Diagnosis Essential (primary) hypertension Unspecified essential hypertension Anemia, unspecified documented in this encounter Care Teams Preventive Medicine Specialist Relationship Specialty Start Date End Date Louis Velazco MD [address] [place] [address] PCP - General Internal Medicine 11/06/24 documented as of this encounter
--- OUTSIDE RECORDS SUMMARY | 2025-04-02 14:22 | XMS_ITS | Encounter Summary ---
Author Organization [employer] Address [address] [place] [address] Care Team Providers Care Auto Tester Name Role Phone Louis Velazco MD Primary Care Provider [phone] Encounter Details Date Type Department Care Team (Late st Contact Info) Description 11/13/2024 Lab Requisition [facility] - Main Lab [address] [facility] [place] [address] Louis Velazco MD [address] [place] [phone] Acute on chronic diastolic (congestive) heart failure [...] Procedure Name Priority Date/Time Associated Diagnosis Comments BASIC METABOLIC PANEL Routine 11/13/2024 4:49 AM EDT Acute on chronic diastolic (congestive) heart failure (CMS/HCC V24, CMS/HCC V28) documented in this encounter Results * (ABNORMAL) Basic metabolic panel (11/13/2024 4:49 AM EDT) Sodium 136 133 - 145 mmol/L LAB CHEMISTRY METHOD 11/13/2024 1:25 PM EDT [facility] Potassium 4.2 3.5 - 5.5 mmol/L LAB CHEMISTRY METHOD 11/13/2024 1:25 PM EDT [facility] Chloride 93(L) 96 - 110 mmol/L LAB CHEMISTRY METHOD 11/13/2024 1:25 PM EDT [facility] CO2 34(H) 21 - 32 mmol/L LAB CHEMISTRY METHOD 11/13/2024 1:25 PM EDT [facility] Anion Gap 9 3 - 11 LAB CHEMISTRY METHOD 11/13/2024 1:25 PM EDT [facility] Glucose 80 70 - 100 mg/dL LAB CHEMISTRY METHOD 11/13/2024 1:25 PM EDT [facility] BUN 12 5 - 25 mg/dL LAB CHEMISTRY METHOD 11/13/2024 1:25 PM T [facility] Creatinine 0.89 0.50 - 1.10 mg/dL LAB CHEMISTRY METHOD 11/13/2024 1:25 PM EDT [facility] eGFR 66 >=60 mL/min/1. 73m2 LAB CHEMISTRY METHOD 11/13/2024 1:25 PM EDT [facility] Comment:Calculation based on the Chronic Kidney Disease Epidemiology Collaboration (CKD-EPI) equation refit without adjustment for race. BUN/Creatinine Ratio 13.5 LAB CHEMISTRY METHOD 11/13/2024 1:25 PM T [facility] Calcium 9.3 8.5 - 10.5 mg/dL LAB CHEMISTRY METHOD 11/13/2024 1:25 PM [facility] Blood Venous blood specimen / Unknown 11/13/2024 4:49 AM EDT 11/13/2024 12:45 PM EDT us Louis Velazco MD LAB BLOOD ORDERABLES Final Resu lt [facility] [address] [place] [address], documented in this encounter Visit Diagnoses Diagnosis Acute on chronic diastolic (congestive) heart failure (CMS/HCC V24, CMS/HCC V28) documented in this encounter Care Teams Auto Tester Relationship Specialty Start Date End Date Louis Velazco MD [address] [place] [address] PCP - General Internal Medicine 11/06/24 documented as of this encounter
--- OUTSIDE RECORDS SUMMARY | 2025-04-02 14:23 | XMS_ITS | Encounter Summary ---
Author Organization [employer] Address [address] [place] [address] Care Team Providers Care Stockroom Supervisor Name Role Phone Louis Velazco MD Primary Care Provider [phone] Encounter Details Date Type Department Care Team (Late st Contact Info) Description 11/18/[address] [facility] - Main Lab [address] [facility] [place] [address] Louis Velazco MD [address] [place] [phone] Acute systolic (congestive) heart failure (CMS/HCC [...] Associated Diagnosis Comments COMPLETE BLOOD COUNT Routine 11/19/2024 5:36 AM EDT Acute systolic (congestive) heart failure (CMS/HCC V24, CMS/HCC V28) Chronic obstructive pulmonary disease with (acute) exacerbation (CMS/HCC V24, CMS/HCC V28) BASIC METABOLIC PANEL Routine 11/19/2024 5:36 AM EDT Acute systolic (congestive) heart failure (CMS/HCC V24, CMS/HCC V28) Chronic obstructive pulmonary disease with (acute) exacerbation (CMS/HCC V24, CMS/HCC V28) documented in this encounter Results * (ABNORMAL) Basic metabolic panel (11/19/2024 5:36 AM EDT) Sodium 137 133 - 145 mmol/L LAB CHEMISTRY METHOD 11/19/2024 10:14 AM [facility] Potassium 3.3(L) 3.5 - 5.5 mmol/L LAB CHEMISTRY METHOD 11/19/2024 10:14 AM [facility] Chloride 95(L) 96 - 110 mmol/L LAB CHEMISTRY METHOD 11/19/2024 10:14 AM [facility] CO2 34(H) 21 - 32 mmol/L LAB CHEMISTRY METHOD 11/19/2024 10:14 AM [facility] Anion Gap 8 3 - 11 LAB CHEMISTRY METHOD 11/19/2024 10:14 AM [facility] Glucose 80 70 - 100 mg/dL LAB CHEMISTRY METHOD 11/19/2024 10:14 AM [facility] BUN 11 5 - 25 mg/dL LAB CHEMISTRY METHOD 11/19/2024 10:14 AM [facility] Creatinine 0.87 0.50 - 1.10 mg/dL LAB CHEMISTRY METHOD 11/19/2024 10:14 AM [facility] eGFR 67 >=60 mL/min/1. 73m2 LAB CHEMISTRY METHOD 11/19/2024 10:14 AM [facility] Comment:Calculation based on the Chronic Kidney Disease Epidemiology Collaboration (CKD-EPI) equation refit without adjustment for race. BUN/Creatinine Ratio 12.6 LAB CHEMISTRY METHOD 11/19/2024 10:14 AM [facility] Calcium 8.7 8.5 - 10.5 mg/dL LAB CHEMISTRY METHOD 11/19/2024 10:14 AM [facility] Blood Venous blood specimen / Unknown Venipuncture / Unknown 11/19/2024 5:36 AM EDT 11/19/2024 9:19 AM EDT us Louis Sondhi MD LAB BLOOD ORDERABLES Final Resu lt [facility] [address] [place] [address], * (ABNORMAL) Complete blood count (11/19/2024 5:36 AM EDT) WBC 9.1 4.8 - 10.8 K/mcL LAB HEMETOLOGY METHOD 11/19/2024 9:50 AM EDT [facility] RBC 3.70(L) 3.80 - 4.80 M/mcL LAB HEMETOLOGY METHOD 11/19/2024 9:50 AM EDT [facility] Hemoglobin 9.4(L) 11.5 - 16.0 g/dL LAB HEMETOLOGY METHOD 11/19/2024 9:50 AM EDT [facility] Hematocrit 31.5(L) 35.0 - 47.0 % LAB HEMETOLOGY METHOD 11/19/2024 9:50 AM EDT [facility] MCV 85.8 79.0 - 98.0 FL LAB HEMETOLOGY METHOD 11/19/2024 9:50 AM EDT [facility] MCH 25.6(L) 27.0 - 32.0 pcg LAB HEMETOLOGY METHOD 11/19/2024 9:50 AM EDT [facility] MCHC 29.8(L) 32.0 - 37.0 g/dL LAB HEMETOLOGY METHOD 11/19/2024 9:50 AM EDT [facility] RDW 17.8(H) 11.0 - 15.0 % LAB HEMETOLOGY METHOD 11/19/2024 9:50 AM EDT [facility] Platelets 304 130 - 400 K/mcL LAB HEMETOLOGY METHOD 11/19/2024 9:50 AM EDT [facility] MPV 9.6 7.0 - 11.0 FL LAB HEMETOLOGY METHOD 11/19/2024 9:50 AM EDT [facility] NRBC 0.0 <1.0 % LAB HEMETOLOGY METHOD 11/19/2024 9:50 AM EDT [facility] NRBC Absolute 0.00 <0.10 K/mcL LAB HEMETOLOGY METHOD 11/19/2024 9:50 AM EDT [facility] Blood Venous blood specimen / Unknown Venipuncture / Unknown 11/19/2024 5:36 AM EDT 11/19/2024 9:19 AM EDT us Louis Velazco MD LAB BLOOD ORDERABLES Final Resu lt [facility] [address] [place] [address], documented in this encounter Visit Diagnoses Diagnosis Acute systolic (congestive) heart failure (CMS/HCC V24, CMS/HCC V28) Chronic obstructive pulmonary disease with (acute) exacerbation (CMS/HCC V24, CMS/HCC V28) documented in this encounter Care Teams Stockroom Supervisor Relationship Specialty Start Date End Date Louis Velazco MD [address] [place] [address] PCP - General Internal Medicine 11/06/24 documented as of this encounter
--- OUTSIDE RECORDS SUMMARY | 2025-04-02 14:23 | XMS_ITS | Encounter Summary ---
Author Organization [employer] Address [address] [place] [address] Care Team Providers Care Tour Driver Name Role Phone Louis Velazco MD Primary Care Provider [phone] Encounter Details Date Type Department Care Team (Late st Contact Info) Description 03/11/2025 Lab Requisition [facility] - Main Lab [address] [facility] [place] [address] Betito Ledezma MD [address] [place] [address] Essential (primary) hypertension; Anemia, unspecified; Respiratory failure, unspecified, unspecified whether with hypoxia or hypercapnia (CMS/HCC V24, CMS/HCC V28); Heart failure, unspecified (CMS/HCC V24, CMS/HCC V28) Social History Tobacco [...] Associated Diagnosis Comments COMPLETE BLOOD COUNT Routine 03/12/2025 6:15 AM EDT Essential (primary) hypertension Anemia, unspecified Respiratory failure, unspecified, unspecified whether with hypoxia or hypercapnia (CMS/HCC V24, CMS/HCC V28) Heart failure, unspecified (CMS/HCC V24, CMS/HCC V28) B-TYPE NATRIURETIC PEPTIDE Routine 03/12/2025 6:15 AM EDT Essential (primary) hypertension Anemia, unspecified Respiratory failure, unspecified, unspecified whether with hypoxia or hypercapnia (CMS/HCC V24, CMS/HCC V28) Heart failure, unspecified (CMS/HCC V24, CMS/HCC V28) BASIC METABOLIC PANEL Routine 03/12/2025 6:15 AM EDT Essential (primary) hypertension Anemia, unspecified Respiratory failure, unspecified, unspecified whether with hypoxia or hypercapnia (CMS/HCC V24, CMS/HCC V28) Heart failure, unspecified (CMS/HCC V24, CMS/HCC V28) documented in this encounter Results * (ABNORMAL) B-type natriuretic peptide (03/12/2025 6:15 AM EDT) Pathologist [facility] BNP 1,116(H) <=100 pcg/mL LAB CHEMISTRY METHOD 03/12/2025 12:06 PM EDT [facility] Blood Venous blood specimen / Unknown Venipuncture / Unknown 03/12/2025 6:15 AM EDT 03/12/2025 11:04 AM EDT Betito Ledezma MD LAB BLOOD ORDERABLES Final Result [facility] [address] [place] [address], * (ABNORMAL) Basic metabolic panel (03/12/2025 6:15 AM EDT) [facility] Sodium 137 133 - 145 mmol/L LAB CHEMISTRY METHOD 03/12/2025 1:21 PM EDT [facility] Potassium 2.6(LL) 3.5 - 5.5 mmol/L LAB CHEMISTRY METHOD 03/12/2025 1:21 PM EDT [facility] Chloride 93(L) 96 - 110 mmol/L LAB CHEMISTRY METHOD 03/12/2025 1:21 PM EDT [facility] CO2 35(H) 21 - 32 mmol/L LAB CHEMISTRY METHOD 03/12/2025 1:21 PM EDT [facility] Anion Gap 9 3 - 11 LAB CHEMISTRY METHOD 03/12/2025 1:21 PM EDT [facility] Glucose 77 70 - 100 mg/dL LAB CHEMISTRY METHOD 03/12/2025 1:21 PM EDT [facility] BUN 12 5 - 25 mg/dL LAB CHEMISTRY METHOD 03/12/2025 1:21 PM EDT [facility] Creatinine 0.86 0.50 - 1.10 mg/dL LAB CHEMISTRY METHOD 03/12/2025 1:21 PM EDT [facility] eGFR 68 >=60 mL/min/1. 73m2 LAB CHEMISTRY METHOD 03/12/2025 1:21 PM EDT [facility] Comment:Calculation based on the Chronic Kidney Disease Epidemiology Collaboration (CKD-EPI) equation refit without adjustment for race. BUN/Creatinine Ratio 14.0 LAB CHEMISTRY METHOD 03/12/2025 1:21 PM T [facility] Calcium 8.9 8.5 - 10.5 mg/dL LAB CHEMISTRY METHOD 03/12/2025 1:21 PM T [facility] Blood Venous blood specimen / Unknown Venipuncture / Unknown 03/12/2025 6:15 AM EDT 03/12/2025 11:04 AM EDT us Betito Ledezma MD LAB BLOOD ORDERABLES Final Result [facility] [address] [place] [address], * (ABNORMAL) Complete blood count (03/12/2025 6:15 AM EDT) WBC 7.0 4.8 - 10.8 K/mcL LAB HEMETOLOGY METHOD 03/12/2025 11:27 AM EDT [facility] RBC 3.70(L) 3.80 - 4.80 M/mcL LAB HEMETOLOGY METHOD 03/12/2025 11:27 AM EDT [facility] Hemoglobin 8.3(L) 11.5 - 16.0 g/dL LAB HEMETOLOGY METHOD 03/12/2025 11:27 AM [facility] Hematocrit 29.0(L) 35.0 - 47.0 % LAB HEMETOLOGY METHOD 03/12/2025 11:27 AM [facility] MCV 78.8(L) 79.0 - 98.0 FL LAB HEMETOLOGY METHOD 03/12/2025 11:27 AM [facility] MCH 22.6(L) 27.0 - 32.0 pcg LAB HEMETOLOGY METHOD 03/12/2025 11:27 AM [facility] MCHC 28.6(L) 32.0 - 37.0 g/dL LAB HEMETOLOGY METHOD 03/12/2025 11:27 AM [facility] RDW 23.4(H) 11.0 - 15.0 % LAB HEMETOLOGY METHOD 03/12/2025 11:27 AM [facility] Platelets 252 130 - 400 K/mcL LAB HEMETOLOGY METHOD 03/12/2025 11:27 AM [facility] MPV 9.3 7.0 - 11.0 FL LAB HEMETOLOGY METHOD 03/12/2025 11:27 AM [facility] NRBC 0.0 <1.0 % LAB HEMETOLOGY METHOD 03/12/2025 11:27 AM [facility] NRBC Absolute 0.00 <0.10 K/mcL LAB HEMETOLOGY METHOD 03/12/2025 11:27 AM [facility] Blood Venous blood specimen / Unknown Venipuncture / Unknown 03/12/2025 6:15 AM EDT 03/12/2025 11:04 AM EDT Betito Ledezma MD LAB BLOOD ORDERABLES Final Result [facility] [address] [place] [address], documented in this encounter Visit Diagnoses Diagnosis Essential (primary) hypertension Unspecified essential hypertension Anemia, unspecified Respiratory failure, unspecified, unspecified whether with hypoxia or hypercapnia (CMS/HCC V24, CMS/HCC V28) Heart failure, unspecified (CMS/HCC V24, CMS/HCC V28) Heart failure, unspecified documented in this encounter Care Teams Tour Driver Relationship Specialty Start Date End Date Louis Velazco MD [address] [place] [id number] PCP - General Internal Medicine 11/06/24 documented as of this encounter
--- OUTSIDE RECORDS SUMMARY | 2025-04-02 14:23 | XMS_ITS | Encounter Summary ---
Author Organization [employer] Address [address] [place] [address] Care Team Providers Care Compensation/Benefits Specialist Name Role Phone Louis Velazco MD Primary Care Provider [phone] Encounter Details Date Type Department Care Team (Late st Contact Info) Description 03/14/2025 Lab Requisition [facility] - Main Lab [address] [place] [address] Betito Ledezma MD [address] [place] [address] Pneumonia, unspecified organism; Hyperkalemia Social History Tobacco [...] Associated Diagnosis Comments COMPLETE BLOOD COUNT Routine 03/15/2025 8:26 AM EDT Pneumonia, unspecified organism Hyperkalemia BASIC METABOLIC PANEL Routine 03/15/2025 8:26 AM EDT Pneumonia, unspecified organism Hyperkalemia documented in this encounter Results * (ABNORMAL) Complete blood count (03/15/2025 8:26 AM EDT) WBC 7.3 4.8 - 10.8 K/[facility] LAB HEMETOLOGY METHOD 03/15/2025 11:52 AM EDT [facility] RBC 3.80 3.80 - 4.80 M/mcL LAB HEMETOLOGY METHOD 03/15/2025 11:52 AM EDT [facility] Hemoglobin 8.5(L) 11.5 - 16.0 g/dL LAB HEMETOLOGY METHOD 03/15/2025 11:52 AM [facility] Hematocrit 30.8(L) 35.0 - 47.0 % LAB HEMETOLOGY METHOD 03/15/2025 11:52 AM [facility] MCV 81.3 79.0 - 98.0 FL LAB HEMETOLOGY METHOD 03/15/2025 11:52 AM [facility] MCH 22.4(L) 27.0 - 32.0 pcg LAB HEMETOLOGY METHOD 03/15/2025 11:52 AM [facility] MCHC 27.6(L) 32.0 - 37.0 g/dL LAB HEMETOLOGY METHOD 03/15/2025 11:52 AM [facility] RDW 24.7(H) 11.0 - 15.0 % LAB HEMETOLOGY METHOD 03/15/2025 11:52 AM [facility] Platelets 244 130 - 400 K/mcL LAB HEMETOLOGY METHOD 03/15/2025 11:52 AM [facility] MPV 9.9 7.0 - 11.0 FL LAB HEMETOLOGY METHOD 03/15/2025 11:52 AM [facility] NRBC 0.0 <1.0 % LAB HEMETOLOGY METHOD 03/15/2025 11:52 AM [facility] NRBC Absolute 0.00 <0.10 K/mcL LAB HEMETOLOGY METHOD 03/15/2025 11:52 AM [facility] Blood Venous blood specimen / Unknown Venipuncture / Unknown 03/15/2025 8:26 AM EDT 03/15/2025 10:59 AM EDT us Betito Ledezma MD LAB BLOOD ORDERABLES Final Result [facility] [address] [place] [address], * (ABNORMAL) Basic metabolic panel (03/15/2025 8:26 AM EDT) Sodium 137 133 - 145 mmol/L LAB CHEMISTRY METHOD 03/15/2025 11:59 AM [facility] Potassium 3.4(L) 3.5 - 5.5 mmol/L LAB CHEMISTRY METHOD 03/15/2025 11:59 AM [facility] Chloride 95(L) 96 - 110 mmol/L LAB CHEMISTRY METHOD 03/15/2025 11:59 AM [facility] CO2 33(H) 21 - 32 mmol/L LAB CHEMISTRY METHOD 03/15/2025 11:59 AM [facility] Anion Gap 9 3 - 11 LAB CHEMISTRY METHOD 03/15/2025 11:59 AM [facility] Glucose 97 70 - 100 mg/dL LAB CHEMISTRY METHOD 03/15/2025 11:59 AM [facility] BUN 14 5 - 25 mg/dL LAB CHEMISTRY METHOD 03/15/2025 11:59 AM [facility] Creatinine 1.02 0.50 - 1.10 mg/dL LAB CHEMISTRY METHOD 03/15/2025 11:59 AM [facility] eGFR 56(L) >=60 mL/min/1. 73m2 LAB CHEMISTRY METHOD 03/15/2025 11:59 AM [facility] Comment:Calculation based on the Chronic Kidney Disease Epidemiology Collaboration (CKD-EPI) equation refit without adjustment for race. BUN/Creatinine Ratio 13.7 LAB CHEMISTRY METHOD 03/15/2025 11:59 AM [facility] Calcium 9.1 8.5 - 10.5 mg/dL LAB CHEMISTRY METHOD 03/15/2025 11:59 AM EDT [facility] Blood Venous blood specimen / Unknown Venipuncture / Unknown 03/15/2025 8:26 AM EDT 03/15/2025 10:59 AM EDT Betito Ledezma MD LAB BLOOD ORDERABLES Final Result [facility] [address] [place] [address], documented in this encounter Visit Diagnoses Diagnosis Pneumonia, unspecified organism Hyperkalemia Hyperpotassemia documented in this encounter Care Teams Compensation/Benefits Specialist Relationship Specialty Start Date End Date Louis Velazco MD [address] [place] [address] PCP - General Internal Medicine 11/06/24 documented as of this encounter
--- OUTSIDE RECORDS SUMMARY | 2025-04-02 14:23 | XMS_ITS | Clinical Summary ---
Author Organization [address] Address [address] [place] [address] Phone Care Team Providers Care [employer] Operator Name Role Phone Louis Velazco MD Primary Care Provider [phone] Encounters Date Type Department Care Team Description 03/20/2025 Lab Requisition [facility] [address] [place] [phone] Betito Ledezma MD Pneumonia, unspecified organism; Hyperkalemia 03/17/2025 Lab Requisition [facility] [address] [place] [phone] Betito Ledezma MD Heart failure, unspecified (CMS/HCC V24, CMS/HCC V28) 03/16/2025 Lab Requisition [facility] [address] [place] [phone] Betito Ledezma MD Hypokalemia 03/14/2025 Lab Requisition [facility] [address] [place] [phone] Betito Ledezma MD Pneumonia, unspecified organism; Hyperkalemia 03/11/2025 Lab Requisition [facility] [address] [place] [phone] Betito Ledezma MD Essential (primary) hypertension; Anemia, unspecified; Respiratory failure, unspecified, unspecified whether with hypoxia or hypercapnia (CMS/HCC V24, CMS/HCC V28); Heart failure, unspecified (CMS/HCC V24, CMS/HCC V28) 03/05/2025 Lab Requisition [facility] [address] [place] [phone] Betito Ledezma MD Pneumonia, unspecified organism; Hyperkalemia 03/04/2025 Lab Requisition [facility] [address] [place] [phone] Betito Ledezma MD Essential (primary) hypertension; Anemia, unspecified 03/03/2025 Lab Requisition [facility] [address] [place] [address] Betito Ledezma MD Hypokalemia 02/27/2025 Lab Requisition [facility] [address] [place] [phone] Betito Ledezma MD Pneumonia, unspecified organism; Hyperkalemia; Heart failure, unspecified (CMS/HCC V24, CMS/HCC V28); Respiratory failure, unspecified with hypoxia (CMS/HCC V24, CMS/HCC V28); Acute on chronic diastolic (congestive) heart failure (CMS/HCC V24, CMS/HCC V28) 02/26/2025 Lab Requisition [facility] [address] [place] [phone] Mary Barry MD Chronic obstructive pulmonary disease, unspecified (CMS/HCC V24, CMS/HCC V28); Anemia, unspecified 02/26/2025 Lab Requisition [facility] [address] [place] [phone] Betito Ledezma MD Hypokalemia; Pneumonia, unspecified organism 02/19/2025 Lab Requisition [facility] [address] [place] [phone] Mary Barry MD Chronic obstructive pulmonary disease, unspecified (CMS/HCC V24, CMS/HCC V28); Anemia, unspecified 02/17/2025 Lab Requisition [facility] [address] [place] [phone] Mary Barry MD Chronic respiratory failure with hypoxia ([place] V24, [place] V28) 02/17/2025 Lab Requisition [facility] [address] [place] [address] Mary Barry MD Chronic kidney disease, stage 3b ([place] V24, [place] V28) 02/13/2025 Lab Requisition [facility] [address] [place] [address] Mary Barry MD Chronic obstructive pulmonary disease, unspecified ([place] V24, [place] V28); Anemia, unspecified 02/12/2025 Lab Requisition [facility] [address] [place] [address] Mary Barry MD Chronic obstructive pulmonary disease, unspecified ([place] V24, [place] V28); Anemia, unspecified from Last 3 Months Social History Tobacco Use Types Packs/Day Years Used Date Smoking Tobacco: Never Assessed Comments Unknown Sex and Gender Information Value Date Recorded Sex Assigned at Not on file Legal Sex Female 9:58 AM EDT Gender Identity Not on file Sexual Orientation Not on file Plan of Treatment Health Maintenance Due Date Last Done Comments DTaP,Tdap,and Td Vaccines (1 - Tdap) 1964 Pneumococcal Vaccine: 50+ Years (1 of 2 - PCV) 1963 Zoster Vaccines (1 of 2) 1994 RSV Immunization Adult Patients (1 - 1-dose 75+ series) 2019 Depression Screening 07/01/2024 Falls Risk Assessment 11/06/2024 Osteoporosis Screening (Bone Density Screening) 11/06/2024 Social Influencers of Health Screening 11/06/2024 COVID-19 Vaccine ( - season) 2025 Influenza Vaccine (#1) 2025 Hypertension/CHF/CAD Annual BMP Blood Test 03/18/2026 03/18/2025, 03/15/2025, 03/12/2025, Additional history exists Cholesterol Screening (Lipid Panel) 03/02/2030 03/02/2025 HIB Vaccines Aged Out No longer eligi ble based on patient's age to complete this topic HPV Vaccines Aged Out No longer eligi ble based on patient's age to complete this topic Hepatitis A Vaccines Aged Out No long er eligible based on patient's age to complete this topic Hepatitis B Vaccines Aged Out No long er eligible based on patient's age to complete this topic IPV Vaccines Aged Out No longer eligi ble based on patient's age to complete this topic MMR Vaccines Aged Out No longer eligi ble based on patient's age to complete this topic Meningococcal ACWY Vaccine Aged Out N o longer eligible based on patient's age to complete this topic Meningococcal B Vaccine Aged Out No l onger eligible based on patient's age to complete this topic RSV Immunization Patients Under 20 months Aged Out No longer eligible based on patient's age to complete this topic Varicella Vaccines Aged Out No longer eligible based on patient's age to complete this topic Procedures Procedure Name Priority Date/Time Associated Diagnosis Comments B-TYPE NATRIURETIC PEPTIDE Routine 03/18/2025 6:15 AM EDT Heart failure, unspecified (CMS/HCC V24, CMS/HCC V28) COMPREHENSIVE METABOLIC PANEL Routine 03/18/2025 6:15 AM EDT Heart failure, unspecified (CMS/HCC V24, CMS/HCC V28) COMPLETE BLOOD COUNT Routine 03/18/2025 6:15 AM EDT Heart failure, unspecified (CMS/HCC V24, CMS/HCC V28) POTASSIUM Routine 03/16/2025 6:36 AM EDT Hypokalemia COMPLETE BLOOD COUNT Routine 03/15/2025 8:26 AM EDT Pneumonia, unspecified organism Hyperkalemia BASIC METABOLIC PANEL Routine 03/15/2025 8:26 AM EDT Pneumonia, unspecified organism Hyperkalemia B-TYPE NATRIURETIC PEPTIDE Routine 03/12/2025 6:15 AM [...] Heart failure, unspecified (CMS/HCC V24, CMS/HCC V28) COMPLETE BLOOD COUNT Routine 03/12/2025 6:15 AM EDT Essential (primary) hypertension Anemia, unspecified Respiratory failure, unspecified, unspecified whether with hypoxia or hypercapnia (CMS/HCC V24, CMS/HCC V28) Heart failure, unspecified (CMS/HCC V24, CMS/HCC V28) BASIC METABOLIC PANEL Routine 03/08/2025 9:19 AM EDT Pneumonia, unspecified organism Hyperkalemia COMPLETE BLOOD COUNT Routine 03/08/2025 9:19 AM EDT Pneumonia, unspecified organism Hyperkalemia BASIC METABOLIC PANEL Routine 03/05/2025 6:56 AM EDT Essential (primary) hypertension Anemia, unspecified IRON Routine 03/05/2025 6:56 AM EDT Essential (primary) hypertension Anemia, unspecified COMPLETE BLOOD COUNT Routine 03/05/2025 6:56 AM EDT Essential (primary) hypertension Anemia, unspecified BASIC METABOLIC PANEL Routine 03/03/2025 6:15 AM EDT Hypokalemia COMPLETE BLOOD COUNT Routine 03/03/2025 6:15 AM EDT Hypokalemia HEMOGLOBIN A1C Routine 03/02/2025 9:24 AM EDT [...] (congestive) heart failure (CMS/HCC V24, CMS/HCC V28) VITAMIN B12 AND FOLATE Routine 9:24 AM EDT Pneumonia, unspecified organism Hyperkalemia [...] (congestive) heart failure (CMS/HCC V24, CMS/HCC V28) BASIC METABOLIC PANEL Routine 03/02/2025 9:24 AM EDT Pneumonia, unspecified organism Hyperkalemia Acute on chronic diastolic (congestive) heart failure (CMS/HCC V24, CMS/HCC V28) COMPREHENSIVE METABOLIC PANEL Routine 02/26/2025 5:41 AM EDT Hypokalemia Pneumonia, unspecified organism COMPLETE BLOOD COUNT Routine 02/26/2025 5:41 AM EDT Hypokalemia Pneumonia, unspecified organism RBC MORPHOLOGY REVIEW Routine 02/17/2025 5:45 AM EDT Chronic respiratory failure with hypoxia (CMS/HCC V24, CMS/HCC V28) CBC WITH AUTO DIFFERENTIAL Routine 02/17/2025 5:45 AM EDT Chronic respiratory failure with hypoxia (CMS/HCC V24, CMS/HCC V28) BASIC METABOLIC PANEL Routine 02/17/2025 5:45 AM EDT Chronic respiratory failure with hypoxia (CMS/HCC V24, CMS/HCC V28) CBC AND DIFFERENTIAL Routine 02/17/2025 5:45 AM EDT Chronic respiratory failure with hypoxia (CMS/HCC V24, CMS/HCC V28) URINALYSIS WITH REFLEX MICROSCOPIC AND CULTURE Routine 02/17/2025 12:00 AM EDT Chronic kidney disease, stage 3b (CMS/HCC V24, CMS/HCC V28) DUTTA URINE CULTURE TUBE Routine 02/17/2025 12:00 AM EDT Chronic kidney disease, stage 3b (CMS/HCC V24, CMS/HCC V28) URINALYSIS WITH REFLEX MICROSCOPIC AND CULTURE Routine 02/17/2025 12:00 AM EDT Chronic kidney disease, stage 3b (CMS/HCC V24, CMS/HCC V28) CULTURE URINE Routine 02/17/2025 12:00 AM EDT Chronic kidney disease, stage 3b (CMS/HCC V24, CMS/HCC V28) BASIC METABOLIC PANEL Routine 02/15/2025 5:34 AM EDT Chronic obstructive pulmonary disease, unspecified (CMS/HCC V24, CMS/HCC V28) Anemia, unspecified COMPLETE BLOOD COUNT Routine 02/15/2025 5:34 AM EDT Chronic obstructive pulmonary disease, unspecified (CMS/HCC V24, CMS/HCC V28) Anemia, unspecified BASIC METABOLIC PANEL Routine 02/12/2025 6:31 AM EDT Chronic obstructive pulmonary disease, unspecified (CMS/HCC V24, CMS/HCC V28) Anemia, unspecified COMPLETE BLOOD COUNT Routine 02/12/2025 6:31 AM EDT Chronic obstructive pulmonary disease, unspecified (CMS/HCC V24, CMS/HCC V28) Anemia, unspecified from Last 3 Months Results * (ABNORMAL) Complete blood count (03/18/2025 6:15 AM EDT) Only the most recent of10 resultswithin the time period is included. WBC 7.6 4.8 - 10.8 K/[facility] LAB HEMETOLOGY METHOD 03/18/2025 9:09 AM [facility] RBC 3.80 3.80 - 4.80 M/mcL LAB HEMETOLOGY METHOD 03/18/2025 9:09 AM [facility] Hemoglobin 8.8(L) 11.5 - 16.0 g/dL LAB HEMETOLOGY METHOD 03/18/2025 9:09 AM [facility] Hematocrit 30.9(L) 35.0 - 47.0 % LAB HEMETOLOGY METHOD 03/18/2025 9:09 AM [facility] MCV 80.9 79.0 - 98.0 FL LAB HEMETOLOGY METHOD 03/18/2025 9:09 AM [facility] MCH 23.0(L) 27.0 - 32.0 pcg LAB HEMETOLOGY METHOD 03/18/2025 9:09 AM [facility] MCHC 28.5(L) 32.0 - 37.0 g/dL LAB HEMETOLOGY METHOD 03/18/2025 9:09 AM [facility] RDW 25.1(H) 11.0 - 15.0 % LAB HEMETOLOGY METHOD 03/18/2025 9:09 AM [facility] Platelets 214 130 - 400 K/mcL LAB HEMETOLOGY METHOD 03/18/2025 9:09 AM [facility] MPV 10.1 7.0 - 11.0 FL LAB HEMETOLOGY METHOD 03/18/2025 9:09 AM [facility] NRBC 0.0 <1.0 % LAB HEMETOLOGY METHOD 03/18/2025 9:09 AM [facility] NRBC Absolute 0.00 <0.10 K/mcL LAB HEMETOLOGY METHOD 03/18/2025 9:09 AM [facility] Blood Venous blood specimen / Unknown Venipuncture / Unknown 03/18/2025 6:15 AM EDT 03/18/2025 9:00 AM EDT us Betito Ledezma MD LAB BLOOD ORDERABLES Final Result Performing Organization Address City/[facility]/ZIP Co de Phone Number [facility] [address] [place] [address], [place] [phone] * (ABNORMAL) B-type natriuretic peptide (03/18/2025 6:15 AM EDT) Only the most recent of2 resultswithin the time period is included. Pathologist [facility] BNP 1,065(H) <=100 pcg/mL LAB CHEMISTRY METHOD 03/18/2025 10:01 AM EDT [facility] Blood Venous blood specimen / Unknown Venipuncture / Unknown 03/18/2025 6:15 AM EDT 03/18/2025 9:00 AM EDT us Betito Ledezma MD LAB BLOOD ORDERABLES Final Result Performing Organization Address [facility]/ZIP Co de Phone Number [facility] [address] [place] [address], [place] [phone] * (ABNORMAL) Comprehensive metabolic panel (03/18/2025 6:15 AM EDT) Only the most recent of2 resultswithin the time period is included. Sodium 139 133 - 145 mmol/L LAB CHEMISTRY METHOD 03/18/2025 9:39 AM EDT [facility] Potassium 3.1(L) 3.5 - 5.5 mmol/L LAB CHEMISTRY METHOD 03/18/2025 9:39 AM EDT [facility] Chloride 98 96 - 110 mmol/L LAB CHEMISTRY METHOD 03/18/2025 9:39 AM EDT [facility] CO2 35(H) 21 - 32 mmol/L LAB CHEMISTRY METHOD 03/18/2025 9:39 AM EDT [facility] Anion Gap 6 3 - 11 LAB CHEMISTRY METHOD 03/18/2025 9:39 AM [facility] Glucose 89 70 - 100 mg/dL LAB CHEMISTRY METHOD 03/18/2025 9:39 AM [facility] BUN 14 5 - 25 mg/dL LAB CHEMISTRY METHOD 03/18/2025 9:39 AM [facility] Creatinine 0.93 0.50 - 1.10 mg/dL LAB CHEMISTRY METHOD 03/18/2025 9:39 AM [facility] eGFR 62 >=60 mL/min/1. 73m2 LAB CHEMISTRY METHOD 03/18/2025 9:39 AM [facility] Comment:Calculation based on the Chronic Kidney Disease Epidemiology Collaboration (CKD-EPI) equation refit without adjustment for race. BUN/Creatinine Ratio 15.1 LAB CHEMISTRY METHOD 03/18/2025 9:39 AM [facility] Calcium 9.0 8.5 - 10.5 mg/dL LAB CHEMISTRY METHOD 03/18/2025 9:39 AM [facility] AST (SGOT) 27 10 - 42 unit/L LAB CHEMISTRY METHOD 03/18/2025 9:39 AM [facility] ALT (SGPT) 28 10 - 60 unit/L LAB CHEMISTRY METHOD 03/18/2025 9:39 AM [facility] Alkaline Phosphatase 162(H) 42 - 121 unit/L LAB CHEMISTRY METHOD 03/18/2025 9:39 AM [facility] Total Protein 6.0 6.0 - 8.0 g/dL LAB CHEMISTRY METHOD 03/18/2025 9:39 AM [facility] Albumin 3.6 3.2 - 5.0 g/dL LAB CHEMISTRY METHOD 03/18/2025 9:39 AM [facility] Total Bilirubin 0.8 0.0 - 1.4 mg/dL LAB CHEMISTRY METHOD 03/18/2025 9:39 AM EDT [facility] Blood Venous blood specimen / Unknown Venipuncture / Unknown 03/18/2025 6:15 AM EDT 03/18/2025 9:00 AM EDT us Betito Ledezma MD LAB BLOOD ORDERABLES Final Result Performing Organization Address City/[facility]/ZIP Co de Phone Number [facility] [address] [place] [address], [place] [phone] * Potassium (03/16/2025 6:36 AM EDT) Potassium 3.9 3.5 - 5.5 mmol/L LAB CHEMISTRY METHOD 03/16/2025 10:27 AM EDT [facility] Blood Venous blood specimen / Unknown Venipuncture / Unknown 03/16/2025 6:36 AM EDT 03/16/2025 8:48 AM EDT us Betito Ledezma MD LAB BLOOD ORDERABLES Final Result Performing Organization Address City/[facility]/ZIP Co de Phone Number [facility] [address] [place] [address], [place] [phone] * (ABNORMAL) Basic metabolic panel (03/15/2025 8:26 AM EDT) Only the most recent of9 resultswithin the time period is included. Sodium 137 133 - 145 mmol/L LAB CHEMISTRY METHOD 03/15/2025 11:59 AM EDT [facility] Potassium 3.4(L) 3.5 - 5.5 mmol/L LAB CHEMISTRY METHOD 03/15/2025 11:59 AM EDT [facility] Chloride 95(L) 96 - 110 mmol/L LAB CHEMISTRY METHOD 03/15/2025 11:59 AM EDT [facility] CO2 33(H) 21 - 32 mmol/L LAB CHEMISTRY METHOD 03/15/2025 11:59 AM [facility] Anion Gap 9 3 - 11 LAB CHEMISTRY METHOD 03/15/2025 11:59 AM [facility] Glucose 97 70 - 100 mg/dL LAB CHEMISTRY METHOD 03/15/2025 11:59 AM [facility] BUN 14 5 - 25 mg/dL LAB CHEMISTRY METHOD 03/15/2025 11:59 AM [facility] Creatinine 1.02 0.50 - 1.10 mg/dL LAB CHEMISTRY METHOD 03/15/2025 11:59 AM [facility] eGFR 56(L) >=60 mL/min/1. 73m2 LAB CHEMISTRY METHOD 03/15/2025 11:59 AM [facility] Comment:Calculation based on the Chronic Kidney Disease Epidemiology Collaboration (CKD-EPI) equation refit without adjustment for race. BUN/Creatinine Ratio 13.7 LAB CHEMISTRY METHOD 03/15/2025 11:59 AM [facility] Calcium 9.1 8.5 - 10.5 mg/dL LAB CHEMISTRY METHOD 03/15/2025 11:59 AM [facility] Blood Venous blood specimen / Unknown Venipuncture / Unknown 03/15/2025 8:26 AM EDT 03/15/2025 10:59 AM EDT Betito Ledezma MD LAB BLOOD ORDERABLES Final Result [facility] [address] [place] [address], * (ABNORMAL) Iron (03/05/2025 6:56 AM EDT) Iron 15(L) 40 - 150 mcg/dL LAB CHEMISTRY METHOD 03/05/2025 9:47 AM EDT [facility] Blood Venous blood specimen / Unknown Venipuncture / Unknown 03/05/2025 6:56 AM EDT 03/05/2025 8:46 AM EDT Betito Ledezma MD LAB BLOOD ORDERABLES Final Result Performing Organization Address [facility]/ZIP Co de Phone Number [facility] [address] [place] [address], [place] [phone] * (ABNORMAL) Vitamin B12 and folate (03/02/2025 9:24 AM EDT) [facility] Vitamin B-12 >2,000(H) 250 - 900 pcg/mL LAB CHEMISTRY METHOD 03/02/2025 4:11 PM EDT [facility] Folate 15.3 2.8 - 17.0 ng/ml LAB CHEMISTRY METHOD 03/02/2025 4:11 PM EDT [facility] Blood Venous blood specimen / Unknown Venipuncture / Unknown 03/02/2025 9:24 AM EDT 03/02/2025 11:23 AM EDT Betito Ledezma MD LAB BLOOD ORDERABLES Final Result Performing Organization Address City/[facility]/ZIP Co de Phone Number [facility] [address] [place] [address], [place] [phone] * Lipid panel with reflex to direct LDL (03/02/2025 9:24 AM EDT) [facility] Cholesterol 128 0 - 200 mg/dL LAB CHEMISTRY METHOD 03/02/2025 4:11 PM EDT [facility] Triglycerides 62 0 - 150 mg/dL LAB CHEMISTRY METHOD 03/02/2025 4:11 PM EDT [facility] HDL 69 >=40 mg/dL LAB CHEMISTRY METHOD 03/02/2025 4:11 PM EDT [facility] LDL Calculated 47 0 - 100 mg/dL LAB CHEMISTRY METHOD 03/02/2025 4:11 PM EDT [facility] Comment:Estimated LDL Calcul ated using equation: Total cholesterol - HDL cholesterol - (Triglycerides/5) VLDL Cholesterol David 12.4 mg/dL LAB CHEMISTRY METHOD 03/02/2025 4:11 PM EDT [facility] Non HDL Chol. (LDL+VLDL) 59 <145 mg/dL LAB CHEMISTRY METHOD 03/02/2025 4:11 PM EDT [facility] Chol/HDL Ratio 1.9 0.0 - 4.4 LAB CHEMISTRY METHOD 03/02/2025 4:11 PM EDT [facility] Blood Venous blood specimen / Unknown Venipuncture / Unknown 03/02/2025 9:24 AM EDT 03/02/2025 11:23 AM EDT Betito Ledezma MD LAB BLOOD ORDERABLES Final Result Performing Organization Address [facility] de Phone Number [facility] [address] [place] [address], [place] [phone] * (ABNORMAL) Iron and TIBC (03/02/2025 9:24 AM EDT) Iron 20(L) 40 - 150 mcg/dL LAB CHEMISTRY METHOD 03/02/2025 4:11 PM EDT [facility] TIBC 485(H) 250 - 450 mcg/dL LAB CHEMISTRY METHOD 03/02/2025 4:11 PM EDT [facility] Iron Saturation 4(L) 15 - 50 % LAB CHEMISTRY METHOD 03/02/2025 4:11 PM EDT [facility] Blood Venous blood specimen / Unknown Venipuncture / Unknown 03/02/2025 9:24 AM EDT 03/02/2025 11:23 AM EDT Betito Ledezma MD LAB BLOOD ORDERABLES Final Result Performing Organization Address City/[facility]/ZIP Co de Phone Number [facility] [address] [place] [address], [place] [phone] * (ABNORMAL) Thyroid stimulating hormone (03/02/2025 9:24 AM EDT) Pathologist [facility] TSH 8.29(H) 0.40 - 4.00 mcIU/mL LAB CHEMISTRY METHOD 03/02/2025 4:40 PM EDT [facility] Blood Venous blood specimen / Unknown Venipuncture / Unknown 03/02/2025 9:24 AM EDT 03/02/2025 11:23 AM EDT Betito Ledezma MD LAB BLOOD ORDERABLES Final Result [facility] [address] [place] [address], [place] [phone] * Thyroxine free (03/02/2025 9:24 AM EDT) [facility] Free T4 1.37 0.70 - 1.80 ng/dL LAB CHEMISTRY METHOD 03/02/2025 4:40 PM EDT [facility] Blood Venous blood specimen / Unknown Venipuncture / Unknown 03/02/2025 9:24 AM EDT 03/02/2025 11:23 AM EDT Betito Ledezma MD LAB BLOOD ORDERABLES Final Result [facility] [address] [place] [address], [place] [phone] * Hemoglobin A1c (03/02/2025 9:24 AM EDT) [facility] Hemoglobin A1C 6.1 <6.5 % LAB CHEMISTRY METHOD 03/03/2025 10:51 AM EDT [facility] Mean Bld Glu Estim. 128 mg/dL LAB CHEMISTRY METHOD 03/03/2025 10:51 AM EDT [facility] Blood Venous blood specimen / Unknown Venipuncture / Unknown 03/02/2025 9:24 AM EDT 03/02/2025 11:23 AM EDT Betito Ledezma MD LAB BLOOD ORDERABLES Final Result Performing Organization Address [facility]/ZIP Co de Phone Number [facility] [address] [place] [address], [place] [phone] * Ferritin (03/02/2025 9:24 AM EDT) Pathologist [facility] Ferritin 63 8 - 252 ng/mL LAB CHEMISTRY METHOD 03/02/2025 4:11 PM EDT [facility] Blood Venous blood specimen / Unknown Venipuncture / Unknown 03/02/2025 9:24 AM EDT 03/02/2025 11:23 AM EDT Betito Ledezma MD LAB BLOOD ORDERABLES Final Result Performing Organization Address City/[facility]/ZIP Co de Phone Number [facility] [address] [place] [address], [place] [phone] * (ABNORMAL) RBC morphology review (02/17/2025 5:45 AM EDT) Pathologist [facility] Rbc Morphology Present( A) Consistent with indices, Normal for LAB HEMETOLOGY METHOD 02/17/2025 9:24 AM EDT [facility] Platelet Morphology - WAM See Note(A) Normal LAB HEMETOLOGY METHOD 02/17/2025 9:24 AM EDT [facility] Comment:PLT: Normal Polychromasia Present Present( A) (none) LAB HEMETOLOGY METHOD 02/17/2025 9:24 AM EDT [facility] Blood Venous blood specimen / Unknown Venipuncture / Unknown 02/17/2025 5:45 AM EDT 02/17/2025 8:29 AM EDT us Mary Barry MD LAB BLOOD ORDERABLES Fin al Result [facility] [address] [place] [address], * (ABNORMAL) CBC auto differential (02/17/2025 5:45 AM EDT) WBC 15.0(H) 4.8 - 10.8 K/mcL LAB HEMETOLOGY METHOD 02/17/2025 9:24 AM EDT [facility] RBC 4.10 3.80 - 4.80 M/mcL LAB HEMETOLOGY METHOD 02/17/2025 9:24 AM EDT [facility] Hemoglobin 9.2(L) 11.5 - 16.0 g/dL LAB HEMETOLOGY METHOD 02/17[facility]2025 [facility] Hematocrit 32.9(L) 35.0 - 47.0 % LAB HEMETOLOGY METHOD 02/17/2025 9:24 AM EDT [facility] MCV 80.0 79.0 - 98.0 FL LAB HEMETOLOGY METHOD 02/17/2025 9[facility] MCH 22.4(L) 27.0 - 32.0 pcg LAB HEMETOLOGY METHOD 02/17/2025 9[facility] MCHC 28.0(L) 32.0 - 37.0 g/dL LAB HEMETOLOGY METHOD 02/17/2025 9:[facility] RDW 21.8(H) 11.0 - 15.0 % LAB HEMETOLOGY METHOD 02/17/2025 9:24 [facility] Platelets 216 130 - 400 K/mcL LAB HEMETOLOGY METHOD 02/17/2025 9:24 AM EDT [facility] MPV 10.6 7.0 - 11.0 FL LAB HEMETOLOGY METHOD 02/17/2025 9:24 AM [facility] NRBC 3.4(H) <1.0 % LAB HEMETOLOGY METHOD 02/17/2025 9:24 AM [facility] NRBC Absolute 0.51(H) <0.10 K/mcL LAB HEMETOLOGY METHOD 02/17/2025 9:24 AM [facility] Neutrophils Relative 83.1 % LAB HEMETOLOGY METHOD 02/17/2025 9:24 AM [facility] Comment:This is an appended report. These results have been appended to a previously preliminary verified report. Lymphocytes Relative 4.6 % LAB HEMETOLOGY METHOD 02/17/2025 9:24 AM [facility] Comment:This is an appended report. These results have been appended to a previously preliminary verified report. Monocytes Relative 11.0 % LAB HEMETOLOGY METHOD 02/17/2025 9:24 AM [facility] Comment:This is an appended report. These results have been appended to a previously preliminary verified report. Eosinophils Relative 0.0 % LAB HEMETOLOGY METHOD 02/17/2025 9:24 AM [facility] Comment:This is an appended report. These results have been appended to a previously preliminary verified report. Basophils Relative 0.1 % LAB HEMETOLOGY METHOD 02/17/2025 9:24 AM [facility] Comment:This is an appended report. These results have been appended to a previously preliminary verified report. Immature Granulocytes Relative 1.2 % LAB HEMETOLOGY METHOD 02/17/2025 9:24 AM [facility] Comment:This is an appended report. These results have been appended to a previously preliminary verified report. Neutrophils Absolute 12.43(H) 1.50 - 7.00 K/mcL LAB HEMETOLOGY METHOD 02/17/2025 9:24 AM EDT [facility] Comment:This is an appended report. These results have been appended to a previously preliminary verified report. Lymphocytes Absolute 0.69(L) 1.00 - 5.00 K/mcL LAB HEMETOLOGY METHOD 02/17/2025 9:24 AM EDT [facility] Comment:This is an appended report. These results have been appended to a previously preliminary verified report. Monocytes Absolute 1.65(H) 0.20 - 1.00 K/mcL LAB HEMETOLOGY METHOD 02/17/2025 9:24 AM EDT [facility] Comment:This is an appended report. These results have been appended to a previously preliminary verified report. Eosinophils Absolute 0.00 0.00 - 0.50 K/mcL LAB HEMETOLOGY METHOD 02/17/2025 9:24 AM EDT [facility] Comment:This is an appended report. These results have been appended to a previously preliminary verified report. Basophils Absolute 0.02 0.00 - 0.20 K/mcL LAB HEMETOLOGY METHOD 02/17/2025 9:24 AM EDT [facility] Comment:This is an appended report. These results have been appended to a previously preliminary verified report. Immature Granulocytes Absolute 0.18(H) 0.00 - 0.03 K/[facility] LAB HEMETOLOGY METHOD 02/17/2025 9:24 AM EDT [facility] Comment:This is an appended report. These results have been appended to a previously preliminary verified report. Blood Venous blood specimen / Unknown Venipuncture / Unknown 02/17/2025 5:45 AM EDT 02/17/2025 8:29 AM EDT us Mary Barry MD LAB BLOOD ORDERABLES Fin al Result [facility] [address] [place] [address], * (ABNORMAL) Urinalysis with reflex microscopic and culture (02/17/2025 12:00 AM EDT) Specific [place] Urine 1.013 1.003 - 1.030 LAB URINALYSIS - AUTOMATED METHOD 02/17/2025 8:48 AM [facility] pH, Urine 5.5 5.0 - 8.0 pH LAB URINALYSIS - AUTOMATED METHOD 02/17/2025 8:48 AM [facility] Leukocytes, Urine Negative Negative LAB URINALYSIS - AUTOMATED METHOD 02/17/2025 8:48 AM [facility] Nitrite, Urine Negative Negative LAB URINALYSIS - AUTOMATED METHOD 02/17/2025 8:48 AM [facility] Protein, Urine 30(A) <=Trace mg/dL LAB URINALYSIS - AUTOMATED METHOD 02/17/2025 8:48 AM [facility] Glucose, Urine Negative Negative mg/dL LAB URINALYSIS - AUTOMATED METHOD 02/17/2025 8:48 AM [facility] Ketones, Urine Negative Negative mg/dL LAB URINALYSIS - AUTOMATED METHOD 02/17/2025 8:48 AM [facility] Urobilinogen, Urine 1.0 0.2 - 1.0 mg/dL LAB URINALYSIS - AUTOMATED METHOD 02/17/2025 8:48 AM [facility] Bilirubin, Urine Negative Negative LAB URINALYSIS - AUTOMATED METHOD 02/17/2025 8:48 AM [facility] Blood, Urine Negative Negative LAB URINALYSIS - AUTOMATED METHOD 02/17/2025 8:48 AM [facility] RBC, Urine 2.1 0 - 4 /HPF LAB URINALYSIS - AUTOMATED METHOD 02/17/2025 8:48 AM [facility] WBC, Urine 4.2(H) 0 - 4 /HPF LAB URINALYSIS - AUTOMATED METHOD 02/17/2025 8:48 AM EDT [facility] Squamous Epithelial, Urine 51 0 - 60 /LPF LAB URINALYSIS - AUTOMATED METHOD 02/17/2025 8:48 AM EDT [facility] Bacteria, Urine Many(A) Negative /HPF LAB URINALYSIS - AUTOMATED METHOD 02/17/2025 8:48 AM EDT [facility] Hyaline Casts, Urine 2.4 0 - 3 /LPF LAB URINALYSIS - AUTOMATED METHOD 02/17/2025 8:48 AM EDT [facility] Urine Urine specimen obtained by clean catch procedure / Unknown Non-blood Collection / Unknown 02/17/2025 02/17/2025 8:04 AM EDT Mary Barry MD LAB URINE ORDERABLES Fin al Result Performing Organization Address [facility]/ZIP Co de Phone Number [facility] [address] [place] [address], [place] [phone] * Dutta urine culture tube (02/17/2025 12:00 AM EDT) Extra Tube Hold for add-ons. 02/17/2025 10:01 AM EDT [facility] Comment:Auto resulted. Urine Urine specimen obtained by clean catch procedure / Unknown Non-blood Collection / Unknown 02/17/2025 02/17/2025 8:04 AM EDT Mary Barry MD LAB URINE ORDERABLES Fin al Result Performing Organization Address [facility]/ZIP Co de Phone Number [facility] [address] [place] [address], [place] [phone] * (ABNORMAL) Culture urine (02/17/2025 12:00 AM EDT) Culture, Urine >=100,000 CFU/mL Klebsiella pneumoniae ssp pneumoniae(A) RACHEAL 02/20/2025 8:49 AM EDT [facility] Comment: This is an edited result. Previous organism was Gram negative bacilli on 02/18/2025 at 0811 EDT. Culture, Urine 50,000-100,000 CFU/mL Enterococcus faecalis(A) RACHEAL 02/20/2025 8:49 AM EDT [facility] Comment: The organism value for this result has been updated. These results have been appended to the previously preliminary verified report. This is an edited result. Previous organism was Enterococcus species on 02/19/2025 at 1146 EDT. Urine Urine specimen obtained by clean catch procedure / Unknown Non-blood Collection / Unknown 02/17/2025 02/17/2025 8:48 AM EDT Narrative Organism Antibiotic Method Susceptibility Klebsiella pneumoniae ssp pneumoniae Amoxicillin/Clavulanate RACHEAL <=2 ug/ml: Susceptible Klebsiella pneumoniae ssp pneumoniae Ampicillin/Sulbactam RACHEAL <=2 ug/ml: Susceptible Klebsiella pneumoniae ssp pneumoniae Piperacillin/Tazobactam RACHEAL <=4 ug/ml: Susceptible Klebsiella pneumoniae ssp pneumoniae Cefazolin (Urine) RACHEAL 2 ug/ml: Susceptible Klebsiella pneumoniae ssp pneumoniae Cefoxitin RACHEAL <=4 ug/ml: Susceptible Klebsiella pneumoniae ssp pneumoniae Ceftazidime RACHEAL <=0.5 ug/ml: Susceptible Klebsiella pneumoniae ssp pneumoniae Ceftriaxone RACHEAL <=0.25 ug/ml: Susceptible Klebsiella pneumoniae ssp pneumoniae Cefepime RACHEAL <=0.12 ug/ml: Susceptible Klebsiella pneumoniae ssp pneumoniae Meropenem RACHEAL <=0.25 ug/ml: Susceptible Klebsiella pneumoniae ssp pneumoniae Amikacin RACHEAL <=1 ug/ml: Susceptible Klebsiella pneumoniae ssp pneumoniae Gentamicin RACHEAL <=1 ug/ml: Susceptible Klebsiella pneumoniae ssp pneumoniae Ciprofloxacin RACHEAL <=0.06 ug/ml: Susceptible Klebsiella pneumoniae ssp pneumoniae Levofloxacin RACHEAL <=0.12 ug/ml: Susceptible Klebsiella pneumoniae ssp pneumoniae Nitrofurantoin RACHEAL 32 ug/ml: Susceptible Klebsiella pneumoniae ssp pneumoniae Trimethoprim/Sulfamethoxazol e RACHEAL <=20 ug/ml: Susceptible Enterococcus faecalis Benzylpenicillin RACHEAL 1 ug/ml: Susceptible Enterococcus faecalis Ampicillin RACHEAL <=2 ug/ml: Susceptible Enterococcus faecalis Ciprofloxacin RACHEAL <=0.5 ug/ml: Susceptible Enterococcus faecalis Levofloxacin RACHEAL 0.5 ug/ml: Susceptible Enterococcus faecalis Linezolid RACHEAL 2 ug/ml: Susceptible Enterococcus faecalis Vancomycin RACHEAL 1 ug/ml: Susceptible Enterococcus faecalis Tetracycline RACHEAL >=16 ug/ml: Resistant Enterococcus faecalis Nitrofurantoin RACHEAL <=16 ug/ml: Susceptible Mary Barry MD LAB MICROBIOLOGY - GENER AL ORDERABLES Final Result [facility] [address] [place] [address], from Last 3 Months Insurance [employer] Care Teams Bobbin Cleaning Machine Operator Relationship Specialty Start Date End Date Louis Velazco MD [address] [place] [address] PCP - General Internal Medicine 11/06/24
--- OUTSIDE RECORDS SUMMARY | 2025-04-02 14:23 | XMS_ITS | Encounter Summary ---
Author Organization [employer] Address [address] [place] [address] Care Team Providers Care Tray Casting Machine Operator Name Role Phone Louis Velazco MD Primary Care Provider [phone] Encounter Details Date Type Department Care Team (Late st Contact Info) Description 02/12/2025 Lab Requisition [facility] - Main Lab [address] [facility] [place] [address] Mary Barry MD [address] [phone] Chronic obstructive pulmonary disease, unspecified (CMS/HCC V24, [...] Associated Diagnosis Comments COMPLETE BLOOD COUNT Routine 02/12/2025 6:31 AM EDT Chronic obstructive pulmonary disease, unspecified (CMS/HCC V24, CMS/HCC V28) Anemia, unspecified BASIC METABOLIC PANEL Routine 02/12/2025 6:31 AM EDT Chronic obstructive pulmonary disease, unspecified (CMS/HCC V24, CMS/HCC V28) Anemia, unspecified documented in this encounter Results * (ABNORMAL) Basic metabolic panel (02/12/2025 6:31 AM EDT) Sodium 134 133 - 145 mmol/L LAB CHEMISTRY METHOD 02/12/2025 9:40 AM EDT [facility] Potassium 4.4 3.5 - 5.5 mmol/L LAB CHEMISTRY METHOD 02/12/2025 9:40 AM [facility] Chloride 94(L) 96 - 110 mmol/L LAB CHEMISTRY METHOD 02/12/2025 9:40 AM [facility] CO2 32 21 - 32 mmol/L LAB CHEMISTRY METHOD 02/12/2025 9:40 AM [facility] Anion Gap 8 3 - 11 LAB CHEMISTRY METHOD 02/12/2025 9:40 AM [facility] Glucose 90 70 - 100 mg/dL LAB CHEMISTRY METHOD 02/12/2025 9:40 AM [facility] BUN 36(H) 5 - 25 mg/dL LAB CHEMISTRY METHOD 02/12/2025 9:40 AM [facility] Creatinine 1.26(H) 0.50 - 1.10 mg/dL LAB CHEMISTRY METHOD 02/12/2025 9:40 AM [facility] eGFR 43(L) >=60 mL/min/1. 73m2 LAB CHEMISTRY METHOD 02/12/2025 9:40 AM [facility] Comment:Calculation based on the Chronic Kidney Disease Epidemiology Collaboration (CKD-EPI) equation refit without adjustment for race. BUN/Creatinine Ratio 28.6 LAB CHEMISTRY METHOD 02/12/2025 9:40 AM [facility] Calcium 9.1 8.5 - 10.5 mg/dL LAB CHEMISTRY METHOD 02/12/2025 9:40 AM [facility] Blood Venous blood specimen / Unknown Venipuncture / Unknown 02/12/2025 6:31 AM EDT 02/12/2025 8:39 AM EDT us Mary Barry MD LAB BLOOD ORDERABLES Fin al Result [facility] [address] [place] [address], * (ABNORMAL) Complete blood count (02/12/2025 6:31 AM EDT) [facility] WBC 9.2 4.8 - 10.8 K/mcL LAB HEMETOLOGY METHOD 02/12/2025 9:13 AM [facility] RBC 3.70(L) 3.80 - 4.80 M/mcL LAB HEMETOLOGY METHOD 02/12/2025 9:13 AM [facility] Hemoglobin 8.2(L) 11.5 - 16.0 g/dL LAB HEMETOLOGY METHOD 02/12/2025 9:13 AM [facility] Hematocrit 28.9(L) 35.0 - 47.0 % LAB HEMETOLOGY METHOD 02/12/2025 9:13 AM [facility] MCV 77.7(L) 79.0 - 98.0 FL LAB HEMETOLOGY METHOD 02/12/2025 9:13 AM [facility] MCH 22.0(L) 27.0 - 32.0 pcg LAB HEMETOLOGY METHOD 02/12/2025 9:13 AM [facility] MCHC 28.4(L) 32.0 - 37.0 g/dL LAB HEMETOLOGY METHOD 02/12/2025 9:13 AM [facility] RDW 18.1(H) 11.0 - 15.0 % LAB HEMETOLOGY METHOD 02/12/2025 9:13 AM [facility] Platelets 236 130 - 400 K/mcL LAB HEMETOLOGY METHOD 02/12/2025 9:13 AM [facility] MPV 9.9 7.0 - 11.0 FL LAB HEMETOLOGY METHOD 02/12/2025 9:13 AM [facility] NRBC 1.2(H) <1.0 % LAB HEMETOLOGY METHOD 02/12/2025 9:13 AM EDT [facility] NRBC Absolute 0.11(H) <0.10 K/mcL LAB HEMETOLOGY METHOD 02/12/2025 9:13 AM EDT [facility] Blood Venous blood specimen / Unknown Venipuncture / Unknown 02/12/2025 6:31 AM EDT 02/12/2025 8:39 AM EDT us Mary Barry MD LAB BLOOD ORDERABLES Fin al Result [facility]) [facility] [address] [place] [address], documented in this encounter Visit Diagnoses Diagnosis Chronic obstructive pulmonary disease, unspecified (CMS/HCC V24, CMS/HCC V28) Anemia, unspecified documented in this encounter Care Teams Tray Casting Machine Operator Relationship Specialty Start Date End Date Louis Velazco MD [address] [place] [address] PCP - General Internal Medicine 11/06/24 documented as of this encounter
--- OUTSIDE RECORDS SUMMARY | 2025-04-02 14:23 | XMS_ITS | Encounter Summary ---
Author Organization [employer] Address [address] [place] [address] Care Team Providers Care Retail Merchandising Coordinator Name Role Phone Louis Velazco MD Primary Care Provider [phone] Encounter Details Date Type Department Care Team (Late st Contact Info) Description 02/13/2025 Lab Requisition [facility] - Main Lab [address] [facility] [place] [address] Mary Barry MD [address] [phone] Chronic obstructive pulmonary disease, unspecified (CMS/HCC V24, [...] Associated Diagnosis Comments COMPLETE BLOOD COUNT Routine 02/15/2025 5:34 AM EDT Chronic obstructive pulmonary disease, unspecified (CMS/HCC V24, CMS/HCC V28) Anemia, unspecified BASIC METABOLIC PANEL Routine 02/15/2025 5:34 AM EDT Chronic obstructive pulmonary disease, unspecified (CMS/HCC V24, CMS/HCC V28) Anemia, unspecified documented in this encounter Results * (ABNORMAL) Basic metabolic panel (02/15/2025 5:34 AM EDT) Sodium 132(L) 133 - 145 mmol/L LAB CHEMISTRY METHOD 02/15/2025 9:16 AM EDT [facility] Potassium 5.1 3.5 - 5.5 mmol/L LAB CHEMISTRY METHOD 02/15/2025 9:16 AM [facility] Chloride 96 96 - 110 mmol/L LAB CHEMISTRY METHOD 02/15/2025 9:16 AM [facility] CO2 30 21 - 32 mmol/L LAB CHEMISTRY METHOD 02/15/2025 9:16 AM [facility] Anion Gap 6 3 - 11 LAB CHEMISTRY METHOD 02/15/2025 9:16 AM [facility] Glucose 83 70 - 100 mg/dL LAB CHEMISTRY METHOD 02/15/2025 9:16 AM [facility] BUN 48(H) 5 - 25 mg/dL LAB CHEMISTRY METHOD 02/15/2025 9:16 AM [facility] Creatinine 1.36(H) 0.50 - 1.10 mg/dL LAB CHEMISTRY METHOD 02/15/2025 9:16 AM [facility] eGFR 39(L) >=60 mL/min/1. 73m2 LAB CHEMISTRY METHOD 02/15/2025 9:16 AM [facility] Comment:Calculation based on the Chronic Kidney Disease Epidemiology Collaboration (CKD-EPI) equation refit without adjustment for race. BUN/Creatinine Ratio 35.3 LAB CHEMISTRY METHOD 02/15/2025 9:16 AM [facility] Calcium 9.2 8.5 - 10.5 mg/dL LAB CHEMISTRY METHOD 02/15/2025 9:16 AM [facility] Blood Venous blood specimen / Unknown Venipuncture / Unknown 02/15/2025 5:34 AM EDT 02/15/2025 8:26 AM EDT us Mary Barry MD LAB BLOOD ORDERABLES Fin al Result [facility] [address] [place] [address], * (ABNORMAL) Complete blood count (02/15/2025 5:34 AM EDT) [facility] WBC 12.3(H) 4.8 - 10.8 K/mcL LAB HEMETOLOGY [facility] RBC 3.80 3.80 - 4.80 M/mcL LAB HEMETOLOGY METHOD [facility]25 [facility] Hemoglobin 8.4(L) 11.5 - 16.0 g/dL LAB HEMETOLOGY METHOD 02/15/2025 8:45 AM [facility] Hematocrit 30.1(L) 35.0 - 47.0 % LAB HEMETOLOGY METHOD 02/15/2025 8:45 AM [facility] MCV 78.6(L) 79.0 - 98.0 FL LAB HEMETOLOGY METHOD 02/15/2025 8:45 AM [facility] MCH 21.9(L) 27.0 - 32.0 pcg LAB HEMETOLOGY METHOD 02/15/2025 8:45 AM [facility] MCHC 27.9(L) 32.0 - 37.0 g/dL LAB HEMETOLOGY METHOD 02/15/2025 8:45 AM [facility] RDW 20.6(H) 11.0 - 15.0 % LAB HEMETOLOGY METHOD 02/15/2025 8:45 AM [facility] Platelets 224 130 - 400 K/mcL LAB HEMETOLOGY METHOD 02/15/2025 8:45 AM [facility] MPV 10.0 7.0 - 11.0 FL LAB HEMETOLOGY METHOD 02/15/2025 8:45 AM [facility] NRBC 1.0(H) <1.0 % LAB HEMETOLOGY METHOD 02/15/2025 8:45 AM EDT [facility] NRBC Absolute 0.12(H) <0.10 K/mcL LAB HEMETOLOGY METHOD 02/15/2025 8:45 AM EDT [facility] Blood Venous blood specimen / Unknown Venipuncture / Unknown 02/15/2025 5:34 AM EDT 02/15/2025 8:26 AM EDT us Mary Barry MD LAB BLOOD ORDERABLES Fin al Result [facility] [address] [place] [address], documented in this encounter Visit Diagnoses Diagnosis Chronic obstructive pulmonary disease, unspecified (CMS/HCC V24, CMS/HCC V28) Anemia, unspecified documented in this encounter Care Teams Retail Merchandising Coordinator Relationship Specialty Start Date End Date Louis Velazco MD [address] [place] [address] PCP - General Internal Medicine 11/06/24 documented as of this encounter
--- OUTSIDE RECORDS SUMMARY | 2025-04-02 14:23 | XMS_ITS | Encounter Summary ---
Author Organization [employer] Address [address] [place] [address] Care Team Providers Care Certified Pharmacy Tech Name Role Phone Louis Velazco MD Primary Care Provider [phone] Encounter Details Date Type Department Care Team (Late st Contact Info) Description 02/17/2025 Lab Requisition [facility] - Main Lab [address] [facility] [place] [address] Mary Barry MD [address] [address] Chronic kidney disease, stage 3b (CMS/HCC V24, CMS/HCC V28) Social History Tobacco [...] Procedure Name Priority Date/Time Associated Diagnosis Comments URINALYSIS WITH REFLEX MICROSCOPIC AND CULTURE Routine [...] disease, stage 3b (CMS/HCC V24, CMS/HCC V28) documented in this encounter Results * (ABNORMAL) Culture urine (02/17/2025 12:00 AM EDT) Culture, Urine >=100,000 CFU/mL Klebsiella pneumoniae ssp pneumoniae(A) RACHEAL 02/20/2025 8:49 AM EDT [facility] Comment: This is an edited result. Previous organism was Gram negative bacilli on 02/18/2025 at 0811 EDT. Culture, Urine 50,000-100,000 CFU/mL Enterococcus faecalis(A) RACHEAL 02/20/2025 8:49 AM EDT [facility] Comment: The organism value for this [...] Enterococcus faecalis Nitrofurantoin RACHEAL <=16 ug/ml: Susceptible us Mary Barry MD LAB MICROBIOLOGY - GENER AL ORDERABLES Final Result [facility] [address] [place] [address], [place] [phone] * (ABNORMAL) Urinalysis with reflex microscopic and culture (02/17/2025 12:00 AM EDT) Specific [place] Urine 1.013 1.003 - 1.030 LAB URINALYSIS - AUTOMATED METHOD 02/17/2025 8:48 AM [facility] pH, Urine 5.5 5.0 - 8.0 pH LAB URINALYSIS - AUTOMATED METHOD 02/17/2025 8:48 AM [facility] Leukocytes, Urine Negative Negative LAB URINALYSIS - AUTOMATED METHOD 02/17/2025 8:48 AM [facility] Nitrite, Urine Negative Negative LAB URINALYSIS - AUTOMATED METHOD 02/17/2025 8:48 AM [facility] Protein, Urine 30(A) <=Trace mg/dL LAB URINALYSIS - AUTOMATED METHOD 02/17/2025 8:48 AM [facility] Glucose, Urine Negative Negative mg/dL LAB URINALYSIS - AUTOMATED METHOD 02/17/2025 8:48 AM [facility] Ketones, Urine Negative Negative mg/dL LAB URINALYSIS - AUTOMATED METHOD 02/[facility]25 [facility] Urobilinogen, Urine 1.0 0.2 - 1.0 mg/dL LAB URINALYSIS - AUTOMATED METHOD 02/17/2025 8:48 AM [facility] Bilirubin, Urine Negative Negative LAB URINALYSIS - AUTOMATED METHOD 02/17/2025 8:48 AM [facility] Blood, Urine Negative Negative LAB URINALYSIS - AUTOMATED METHOD 02/17/2025 8:48 AM [facility] RBC, Urine 2.1 0 - 4 /HPF LAB URINALYSIS - AUTOMATED METHOD 02/17/2025 8:48 AM [facility] WBC, Urine 4.2(H) 0 - 4 /HPF LAB URINALYSIS - AUTOMATED METHOD 02/17/2025 8:48 AM [facility] Squamous Epithelial, Urine 51 0 - 60 /LPF LAB URINALYSIS - AUTOMATED METHOD 02/17/2025 8:48 AM [facility] Bacteria, Urine Many(A) Negative /HPF LAB URINALYSIS - AUTOMATED METHOD 02/17/2025 8:48 AM [facility] Hyaline Casts, Urine 2.4 0 - 3 /LPF LAB URINALYSIS - AUTOMATED METHOD 02/17/2025 8:48 AM [facility] Urine Urine specimen obtained by clean catch procedure / Unknown Non-blood Collection / Unknown 02/17/2025 02/17/2025 8:04 AM EDT us Mary Barry MD LAB URINE ORDERABLES Fin al Result [facility] [address] [place] [address], * Dutta urine culture tube (02/17/2025 12:00 AM EDT) Extra Tube Hold for add-ons. 02/17/2025 10:01 AM EDT [facility] Comment:Auto resulted. Urine Urine specimen obtained by clean catch procedure / Unknown Non-blood Collection / Unknown 02/17/2025 02/17/2025 8:04 AM EDT us Mary Barry MD LAB URINE ORDERABLES Fin al Result [facility] [address] [place] [address], documented in this encounter Visit Diagnoses Diagnosis Chronic kidney disease, stage 3b (CMS/HCC V24, CMS/HCC V28) documented in this encounter Care Teams Certified Pharmacy Tech Relationship Specialty Start Date End Date Louis Velazco MD [address] [place] [address] PCP - General Internal Medicine 11/06/24 documented as of this encounter
--- OUTSIDE RECORDS SUMMARY | 2025-04-02 14:23 | XMS_ITS | Encounter Summary ---
Author Organization [employer] Address [address] [place] [address] Care Team Providers Care Edge Burnisher Uppers Name Role Phone Louis Velazco MD Primary Care Provider [phone] Encounter Details Date Type Department Care Team (Late st Contact Info) Description 02/17/2025 Lab Requisition [facility] - Main Lab 299 [facility] [place] [address] Mary Barry MD [address] [address] Chronic respiratory failure with hypoxia (CMS/HCC V24, CMS/HCC V28) Social History Tobacco [...] Procedure Name Priority Date/Time Associated Diagnosis Comments RBC MORPHOLOGY REVIEW Routine 02/17/2025 5:45 AM [...] failure with hypoxia (CMS/HCC V24, CMS/HCC V28) documented in this encounter Results * (ABNORMAL) RBC morphology review (02/17/2025 5:45 AM EDT) Rbc Morphology Present( A) Consistent with indices, Normal for LAB HEMETOLOGY METHOD 02/17/2025 9:24 AM EDT [facility] Platelet Morphology - WAM See Note(A) Normal LAB HEMETOLOGY METHOD 02/17/2025 9:24 AM EDT [facility] Comment:PLT: Normal Polychromasia Present Present( A) (none) LAB HEMETOLOGY METHOD 02/17/2025 9:24 AM EDT [facility] Blood Venous blood specimen / Unknown Venipuncture / Unknown 02/17/2025 5:45 AM EDT 02/17/2025 8:29 AM EDT Mary Barry MD LAB BLOOD ORDERABLES Fin al Result [facility] [address] [place] [address], * (ABNORMAL) CBC auto differential (02/17/2025 5:45 AM EDT) Pathologist [facility] WBC 15.0(H) 4.8 - 10.8 K/mcL LAB HEMETOLOGY METHOD 02/17/2025 9:24 AM EDT [facility] RBC 4.10 3.80 - 4.80 M/mcL LAB HEMETOLOGY METHOD 02/17/2025 9:24 AM EDT [facility] Hemoglobin 9.2(L) 11.5 - 16.0 g/dL LAB HEMETOLOGY METHOD 02/17/2025 9:24 AM EDT [facility] Hematocrit 32.9(L) 35.0 - 47.0 % LAB HEMETOLOGY METHOD 02/17/2025 9:24 AM EDT [facility] MCV 80.0 79.0 - 98.0 FL LAB HEMETOLOGY METHOD 02/17/2025 9:24 AM [facility] MCH 22.4(L) 27.0 - 32.0 pcg LAB HEMETOLOGY METHOD 02/17/2025 9:24 AM [facility] MCHC 28.0(L) 32.0 - 37.0 g/dL LAB HEMETOLOGY METHOD 02/17/2025 9:24 AM [facility] RDW 21.8(H) 11.0 - 15.0 % LAB HEMETOLOGY METHOD 02/17/2025 9:24 AM [facility] Platelets 216 130 - 400 K/mcL LAB HEMETOLOGY METHOD 02/17/2025 9:24 AM [facility] MPV 10.6 7.0 - 11.0 FL LAB HEMETOLOGY METHOD 02/17/2025 9:24 AM [facility] NRBC 3.4(H) <1.0 % LAB HEMETOLOGY METHOD 02/17/2025 9:24 AM [facility] NRBC Absolute 0.51(H) <0.10 K/mcL LAB HEMETOLOGY METHOD 02/17/2025 9:24 AM [facility] Neutrophils Relative 83.1 % LAB HEMETOLOGY METHOD 02/17/2025 9:24 AM [facility] Comment:This is an appended report. These results have been appended to a previously preliminary verified report. Lymphocytes Relative 4.6 % LAB HEMETOLOGY METHOD 02/17/2025 9:24 AM [facility] Comment:This is an appended report. These results have been appended to a previously preliminary verified report. Monocytes Relative 11.0 % LAB HEMETOLOGY METHOD 02/17/2025 9:24 AM [facility] Comment:This is an appended report. These results have been appended to a previously preliminary verified report. Eosinophils Relative 0.0 % LAB HEMETOLOGY METHOD 02/17/2025 9:24 AM [facility] Comment:This is an appended report. These results have been appended to a previously preliminary verified report. Basophils Relative 0.1 % LAB HEMETOLOGY METHOD 02/17/2025 9:24 AM [facility] Comment:This is an appended report. These results have been appended to a previously preliminary verified report. Immature Granulocytes Relative 1.2 % LAB HEMETOLOGY METHOD 02/17/2025 9:24 AM [facility] Comment:This is an appended report. These results have been appended to a previously preliminary verified report. Neutrophils Absolute 12.43(H) 1.50 - 7.00 K/mcL LAB HEMETOLOGY METHOD 02/17/2025 9:24 AM [facility] Comment:This is an appended report. These results have been appended to a previously preliminary verified report. Lymphocytes Absolute 0.69(L) 1.00 - 5.00 K/mcL LAB HEMETOLOGY METHOD 02/17/2025 9:24 AM [facility] Comment:This is an appended report. These results have been appended to a previously preliminary verified report. Monocytes Absolute 1.65(H) 0.20 - 1.00 K/mcL LAB HEMETOLOGY METHOD 02/17/2025 9:24 AM [facility] Comment:This is an appended report. These results have been appended to a previously preliminary verified report. Eosinophils Absolute 0.00 0.00 - 0.50 K/mcL LAB HEMETOLOGY METHOD 02/17/2025 9:24 AM [facility] Comment:This is an appended report. These results have been appended to a previously preliminary verified report. Basophils Absolute 0.02 0.00 - 0.20 K/mcL LAB HEMETOLOGY METHOD 02/17/2025 9:24 AM [facility] Comment:This is an appended report. These results have been appended to a previously preliminary verified report. Immature Granulocytes Absolute 0.18(H) 0.00 - 0.03 K/mcL LAB HEMETOLOGY METHOD 02/17/2025 9:24 AM EDT [facility] Comment:This is an appended report. These results have been appended to a previously preliminary verified report. Blood Venous blood specimen / Unknown Venipuncture / Unknown 02/17/2025 5:45 AM EDT 02/17/2025 8:29 AM EDT us Mary Barry MD LAB BLOOD ORDERABLES Fin al Result [facility] [address] [place] [address], [place] [phone] * (ABNORMAL) Basic metabolic panel (02/17/2025 5:45 AM EDT) Sodium 129(L) 133 - 145 mmol/L LAB CHEMISTRY METHOD 02/17/2025 12:07 PM [facility] Potassium 6.3(HH) 3.5 - 5.5 mmol/L LAB CHEMISTRY METHOD 02/17/2025 12:07 PM [facility] Chloride 92(L) 96 - 110 mmol/L LAB CHEMISTRY METHOD 02/17/2025 12:07 PM [facility] CO2 22 21 - 32 mmol/L LAB CHEMISTRY METHOD 02/17/2025 12:07 PM [facility] Anion Gap 15(H) 3 - 11 LAB CHEMISTRY METHOD 02/17/2025 12:07 PM [facility] Glucose 68(L) 70 - 100 mg/dL LAB CHEMISTRY METHOD 02/17/2025 12:07 PM [facility] BUN 60(H) 5 - 25 mg/dL LAB CHEMISTRY METHOD 02/17/2025 12:07 PM EDT [facility] Creatinine 1.91(H) 0.50 - 1.10 mg/dL LAB CHEMISTRY METHOD 02/17/2025 12:07 PM EDT [facility] eGFR 26(L) >=60 mL/min/1. 73m2 LAB CHEMISTRY METHOD 02/17/2025 12:07 PM EDT [facility] Comment:Calculation based on the Chronic Kidney Disease Epidemiology Collaboration (CKD-EPI) equation refit without adjustment for race. BUN/Creatinine Ratio 31.4 LAB CHEMISTRY METHOD 02/17/2025 12:07 PM EDT [facility] Calcium 9.4 8.5 - 10.5 mg/dL LAB CHEMISTRY METHOD 02/17/2025 12:07 PM EDT [facility] Blood Venous blood specimen / Unknown Venipuncture / Unknown 02/17/2025 5:45 AM EDT 02/17/2025 8:29 AM EDT us Mary Barry MD LAB BLOOD ORDERABLES Fin al Result [facility] [address] [place] [address], documented in this encounter Visit Diagnoses Diagnosis Chronic respiratory failure with hypoxia (CMS/HCC V24, CMS/HCC V28) documented in this encounter Care Teams Edge Burnisher Uppers Relationship Specialty Start Date End Date Louis Velazco MD [address] [place] [address] PCP - General Internal Medicine 11/06/24 documented as of this encounter
--- OUTSIDE RECORDS SUMMARY | 2025-04-02 14:23 | XMS_ITS | Encounter Summary ---
Author Organization [employer] Address [address] [place] [address] Care Team Providers Care Director Pediatric Name Role Phone Louis Velazco MD Primary Care Provider [phone] Encounter Details Date Type Department Care Team (Late st Contact Info) Description 02/19/2025 Lab Requisition [facility] - Main Lab 299 [facility] [place] [address] Mary Barry MD [address] [address] Chronic obstructive pulmonary disease, unspecified (CMS/HCC V24, [...] unspecified documented in this encounter Care Teams Director Pediatric Relationship Specialty Start Date End Date Louis Velazco MD [address] [place] [id number] PCP - General Internal Medicine 11/06/24 documented as of this encounter
--- OUTSIDE RECORDS SUMMARY | 2025-04-02 14:23 | XMS_ITS | Encounter Summary ---
Author Organization [employer] Address [address] [place] [address] Care Team Providers Care Hogshead Mat Assembler Name Role Phone Louis Velazco MD Primary Care Provider [phone] Encounter Details Date Type Department Care Team (Late st Contact Info) Description 03/17/2025 Lab Requisition [facility] - Main Lab 299 [facility] [place] [address] Betito Ledezma MD [address] [place] [address] Heart failure, unspecified (CMS/HCC V24, CMS/HCC V28) [...] Associated Diagnosis Comments COMPLETE BLOOD COUNT Routine 03/18/2025 6:15 AM EDT Heart failure, unspecified (CMS/HCC V24, CMS/HCC V28) B-TYPE NATRIURETIC PEPTIDE Routine 03/18/2025 6:15 AM EDT Heart failure, unspecified (CMS/HCC V24, CMS/HCC V28) COMPREHENSIVE METABOLIC PANEL Routine 03/18/2025 6:15 AM EDT Heart failure, unspecified (CMS/HCC V24, CMS/HCC V28) documented in this encounter Results * (ABNORMAL) B-type natriuretic peptide (03/18/2025 6:15 AM EDT) BNP 1,065(H) <=100 pcg/mL LAB CHEMISTRY METHOD 03/18/2025 10:01 AM [facility] Blood Venous blood specimen / Unknown Venipuncture / Unknown 03/18/2025 6:15 AM EDT 03/18/2025 9:00 AM EDT us Betito Ledezma MD LAB BLOOD ORDERABLES Final Result [facility] [address] [place] [address], [place] [phone] * (ABNORMAL) Comprehensive metabolic panel (03/18/2025 6:15 AM EDT) Sodium 139 133 - 145 mmol/L LAB CHEMISTRY METHOD 03/18/2025 9:39 AM [facility] Potassium 3.1(L) 3.5 - 5.5 mmol/L LAB CHEMISTRY METHOD 03/18/2025 9:39 AM [facility] Chloride 98 96 - 110 mmol/L LAB CHEMISTRY METHOD 03/18/2025 9:39 AM [facility] CO2 35(H) 21 - 32 mmol/L LAB CHEMISTRY METHOD 03/18/2025 9:39 AM [facility] Anion Gap 6 3 - 11 LAB CHEMISTRY METHOD 03/18/2025 9:39 AM [facility] Glucose 89 70 - 100 mg/dL LAB CHEMISTRY METHOD 03/18/2025 9:39 AM [facility] BUN 14 5 - 25 mg/dL LAB CHEMISTRY METHOD 03/18/2025 9:39 AM [facility] Creatinine 0.93 0.50 - 1.10 mg/dL LAB CHEMISTRY METHOD 03/18/2025 9:39 AM [facility] eGFR 62 >=60 mL/min/1. 73m2 LAB CHEMISTRY METHOD 03/18/2025 9:39 AM EDT [facility] Comment:Calculation based on the Chronic Kidney Disease Epidemiology Collaboration (CKD-EPI) equation refit without adjustment for race. BUN/Creatinine Ratio 15.1 LAB CHEMISTRY METHOD 03/18/2025 9:39 AM [facility] Calcium 9.0 8.5 - 10.5 mg/dL LAB CHEMISTRY METHOD 03/18/2025 9:39 AM [facility] AST (SGOT) 27 10 - 42 unit/L LAB CHEMISTRY METHOD 03/18/2025 9:39 AM [facility] ALT (SGPT) 28 10 - 60 unit/L LAB CHEMISTRY METHOD 03/18/2025 9:39 AM [facility] Alkaline Phosphatase 162(H) 42 - 121 unit/L LAB CHEMISTRY METHOD 03/18/2025 9:39 AM [facility] Total Protein 6.0 6.0 - 8.0 g/dL LAB CHEMISTRY METHOD 03/18/2025 9:39 AM [facility] Albumin 3.6 3.2 - 5.0 g/dL LAB CHEMISTRY METHOD 03/18/2025 9:39 AM [facility] Total Bilirubin 0.8 0.0 - 1.4 mg/dL LAB CHEMISTRY METHOD 03/18/2025 9:39 AM [facility] Blood Venous blood specimen / Unknown Venipuncture / Unknown 03/18/2025 6:15 AM EDT 03/18/2025 9:00 AM EDT us Betito Ledezma MD LAB BLOOD ORDERABLES Final Result [facility] [address] [place] [address], [place] [phone] * (ABNORMAL) Complete blood count (03/18/2025 6:15 AM EDT) WBC 7.6 4.8 - 10.8 K/mcL LAB HEMETOLOGY METHOD 03/18/2025 9:09 AM [facility] RBC 3.80 3.80 - 4.80 M/mcL LAB HEMETOLOGY METHOD 03/18/2025 9:09 AM [facility] Hemoglobin 8.8(L) 11.5 - 16.0 g/dL LAB HEMETOLOGY METHOD 03/18/2025 9:09 AM [facility] Hematocrit 30.9(L) 35.0 - 47.0 % LAB HEMETOLOGY METHOD 03/18/2025 9:09 AM [facility] MCV 80.9 79.0 - 98.0 FL LAB HEMETOLOGY METHOD 03/18/2025 9:09 AM [facility] MCH 23.0(L) 27.0 - 32.0 pcg LAB HEMETOLOGY METHOD 03/18/2025 9:09 AM [facility] MCHC 28.5(L) 32.0 - 37.0 g/dL LAB HEMETOLOGY METHOD 03/18/2025 9:09 AM [facility] RDW 25.1(H) 11.0 - 15.0 % LAB HEMETOLOGY METHOD 03/18/2025 9:09 AM [facility] Platelets 214 130 - 400 K/mcL LAB HEMETOLOGY METHOD 03/18/2025 9:09 AM [facility] MPV 10.1 7.0 - 11.0 FL LAB HEMETOLOGY METHOD 03/18/2025 9:09 AM [facility] NRBC 0.0 <1.0 % LAB HEMETOLOGY METHOD 03/18/2025 9:09 AM [facility] NRBC Absolute 0.00 <0.10 K/mcL LAB HEMETOLOGY METHOD 03/18/2025 9:09 AM [facility] Blood Venous blood specimen / Unknown Venipuncture / Unknown 03/18/2025 6:15 AM EDT 03/18/2025 9:00 AM EDT Betito Ledezma MD LAB BLOOD ORDERABLES Final Result [facility] [address] [place] [address], documented in this encounter Visit Diagnoses Diagnosis Heart failure, unspecified (CMS/HCC V24, CMS/HCC V28) Heart failure, unspecified documented in this encounter Care Teams Hogshead Mat Assembler Relationship Specialty Start Date End Date Louis Velazco MD [address] [place] [address] PCP - General Internal Medicine 11/06/24 documented as of this encounter
--- OUTSIDE RECORDS SUMMARY | 2025-04-02 14:23 | XMS_ITS | Encounter Summary ---
Author Organization [employer] Address [address] [place] [address] Care Team Providers Care Hot Oiler Name Role Phone Louis Velazco MD Primary Care Provider [phone] Encounter Details Date Type Department Care Team (Late st Contact Info) Description 03/20/2025 Lab Requisition [facility] - Main Lab 299 [facility] [place] [address] Betito Ledezma MD [address] [place] [address] Pneumonia, unspecified organism; Hyperkalemia Social History Tobacco [...] as of this encounter Visit Diagnoses Diagnosis Pneumonia, unspecified organism Hyperkalemia Hyperpotassemia documented in this encounter Care Teams Hot Oiler Relationship Specialty Start Date End Date Louis Velazco MD [address] [place] [id number] PCP - General Internal Medicine 11/06/24 documented as of this encounter
--- OUTSIDE RECORDS SUMMARY | 2025-04-02 14:23 | XMS_ITS | Encounter Summary ---
Author Organization [facility] Address [address] [place] [address] Care Team Providers Care Amalgamator Name Role Phone Louis Velazco MD Primary Care Provider [phone] Encounter Details Date Type Department Care Team (Late st Contact Info) Description 03/16/[address] [facility] - Main Lab [address] [place] [address] Betito Ledezma MD [address] [place] [address] Hypokalemia Social History Tobacco Use Types Packs/Day [...] Procedure Name Priority Date/Time Associated Diagnosis Comments POTASSIUM Routine 03/16/2025 6:36 AM EDT Hypokalemia documented in this encounter Results * Potassium (03/16/2025 6:36 AM EDT) [facility] Signature Potassium 3.9 3.5 - 5.5 mmol/L LAB CHEMISTRY METHOD 03/16/2025 10:27 AM EDT [facility] Blood Venous blood specimen / Unknown Venipuncture / Unknown 03/16/2025 6:36 AM EDT 03/16/2025 8:48 AM EDT Betito Ledezma MD LAB BLOOD ORDERABLES Final Result [facility] [address] [place] [address], documented in this encounter Visit Diagnoses Diagnosis Hypokalemia Hypopotassemia documented in this encounter Care Teams Amalgamator Relationship Specialty Start Date End Date Louis Velazco MD [address] [place] [address] PCP - General Internal Medicine 11/06/24 documented as of this encounter
--- OUTSIDE RECORDS SUMMARY | 2025-04-02 14:23 | XMS_ITS | Encounter Summary ---
Author Organization [employer] Address [address] [place] [address] Care Team Providers Care Wrapper Counter Name Role Phone Louis Velazco MD Primary Care Provider [phone] Encounter Details Date Type Department Care Team (Late st Contact Info) Description 11/21/2024 Lab Requisition [facility] - Main Lab [address] [facility] [place] [address] Louis Velazco MD [address] [place] [address] Acute systolic (congestive) heart failure (CMS/HCC [...] as of this encounter Visit Diagnoses Diagnosis Acute systolic (congestive) heart failure (CMS/HCC V24, CMS/HCC V28) Chronic obstructive pulmonary disease with (acute) exacerbation (CMS/HCC V24, CMS/HCC V28) documented in this encounter Care Teams Wrapper Counter Relationship Specialty Start Date End Date Louis Velazco MD [address] [place] [address] PCP - General Internal Medicine 11/06/24 documented as of this encounter
[2025-04-02 14:35] LABS: Hematocrit 35.9 % (37.0-47.0); Hemoglobin 10.9 g/dl (12.0-16.0); Imm Gran Abs Auto 0.05 X10*3/uL (0.00-0.03); Imm Gran Pct Auto 0.4 % (0.0-0.4); Lymphocytes Absolute Auto 0.8 X10*3/uL (1.2-4.9); Mean Corpuscular HGB Conc 30.4 g/dl (31.0-35.0); Mean Corpuscular Hemoglobin 24.4 pg (27.0-33.0); Mean Corpuscular Volume 80.5 fL (80.0-98.0); NRBC Abs Auto 0.000 X10*3/uL (0.0-0.012); NRBC Pct Auto 0.0 /100WBC (0.0-0.2); Platelet Count 210 X10*3/uL (160-400); Red Blood Count 4.46 X10*6/uL (4.20-5.50); White Blood Count 11.4 X10*3/uL (4.8-10.8)
[2025-04-02 15:12] LABS: Anion Gap 12 (12-20); Blood Urea Nitrogen 26 mg/dL (9-16); Calcium 9.4 mg/dL (8.4-10.2); Carbon Dioxide 32 mmol/L (22-29); Chloride 100 mmol/L (96-108); Estimated Glomerular Filt Rate 49; Potassium 3.0 mmol/L (3.3-5.1); Sodium 141 mmol/L (135-145)
== END 2025-04-02 14:17 | disposition home or self-care (01) ==
LOC: HO.HVNA 14:16
PROVIDERS: Visit Provider Internal Medicine
DX: I50.20 Unspecified systolic (congestive) heart failure (principal)
CPT/HCPCS: 36415; 80048; 85025

== ENCOUNTER 2025-04-20 09:19 | Outpatient (REF) | payer MEDICARE, SELFPAY ==
--- NOTE | ~2025-04-20 | XR_ITS ---
EXAMINATION: XR CHEST CLINICAL INFORMATION: J44.9 - Chronic obstructive pulmonary disease, unspecified COMPARISON: February 07, 2025 TECHNIQUE: PA and lateral views. FINDINGS: Hyperinflated lungs. Pulmonary reticular pattern. No consolidation, pleural effusion or pneumothorax. Cardiomediastinal silhouette size is mildly prominent, unchanged. Calcified plaque thoracic aorta. Multilevel thoracolumbar spondylosis. Osteopenia versus osteoporosis. Kyphotic deformity mid thoracic spine. Increased AP diameter/pectus carinatum. XR/XR chest 2V IMPRESSION: COPD emphysematous type changes without gross acute airspace disease. Electronically signed by: Miguel Blandon MD 04/20/2025 11:06 AM EDT
[2025-04-20 10:46] LABS: MANUAL DIFF FLAG NO
[2025-04-20 11:04] LABS: Hematocrit 34.0 % (37.0-47.0); Hemoglobin 10.0 g/dl (12.0-16.0); Imm Gran Abs Auto 0.06 X10*3/uL (0.00-0.03); Imm Gran Pct Auto 0.7 % (0.0-0.4); Lymphocytes Absolute Auto 0.7 X10*3/uL (1.2-4.9); Mean Corpuscular HGB Conc 29.4 g/dl (31.0-35.0); Mean Corpuscular Hemoglobin 24.6 pg (27.0-33.0); Mean Corpuscular Volume 83.5 fL (80.0-98.0); NRBC Abs Auto 0.000 X10*3/uL (0.0-0.012); NRBC Pct Auto 0.0 /100WBC (0.0-0.2); Platelet Count 190 X10*3/uL (160-400); Red Blood Count 4.07 X10*6/uL (4.20-5.50); White Blood Count 8.5 X10*3/uL (4.8-10.8)
[2025-04-20 12:35] LABS: Alanine Aminotransferase 28 U/L (0-31); Albumin Level 4.3 g/dL (3.5-5.0); Alkaline Phosphatase 210 U/L (39-117); Anion Gap 11 (12-20); Aspartate Amino Transferase 30 U/L (5-31); Blood Urea Nitrogen 19 mg/dL (9-16); Calcium 9.2 mg/dL (8.4-10.2); Carbon Dioxide 32 mmol/L (22-29); Chloride 100 mmol/L (96-108); Cholesterol 116 mg/dL (<200); Estimated Glomerular Filt Rate 52; HDL Cholesterol 61 mg/dL (>40); Iron 17 mcg/dL (30-160); Magnesium 2.3 mg/dL (1.6-2.6); Percent Iron Saturation 4 % (15-50); Potassium 4.0 mmol/L (3.3-5.1); Sodium 139 mmol/L (135-145); Total Iron Binding Capacity 387 mcg/dL (228-428); Total Protein 6.8 g/dL (6.5-8.0); Triglycerides 46 mg/dL (<150); Unsaturated Iron Binding 370 ug/dL
[2025-04-20 12:48] LABS: Folate > 20.0 ng/mL (> or = 4.0); Vitamin B12 948 pg/mL (200-900)
== END 2025-04-20 09:20 | disposition home or self-care (01) ==
LOC: HO.XRAY 09:19
PROVIDERS: PCP Internal Medicine; Visit Provider Internal Medicine
DX: I50.32 Chronic diastolic (congestive) heart failure (principal); E78.5 Hyperlipidemia, unspecified; D64.9 Anemia, unspecified; E55.9 Vitamin D deficiency, unspecified; E53.8 Deficiency of other specified B group vitamins; E83.42 Hypomagnesemia; I48.91 Unspecified atrial fibrillation; J44.9 Chronic obstructive pulmonary disease, unspecified; K62.5 Hemorrhage of anus and rectum; D50.9 Iron deficiency anemia, unspecified; Z79.01 Long term (current) use of anticoagulants
CPT/HCPCS: 36415; 71046; 80053; 80061; 82306; 82607; 82746; 83540; 83735; 83880; 85025; 99212

== ENCOUNTER 2025-04-20 09:19 | Outpatient (AMB) | payer MEDICARE, SELFPAY ==
[2025-04-20 09:46] VITALS: BP 122/76; PULSE 97; O2SAT 96; BMI 17.9
--- NOTE | 2025-04-20 09:46 | MHC.PC.OV ---
Vital Signs 04/20/25 09:46 Height 5 ft 4 in Weight 104 lb 6 oz BMI 17.9 BP 122/76 Blood Pressure Location Lt brachial Position Sitting Pulse 97 Pulse Source Pulse Oximeter Pulse Oximetry (%) 96 Oxygen Delivery Method Nasal Cannula Oxygen Flow Rate 2 Intake Visit Reasons: follow up Dairy Machine Operator Farmworker Required: No Accompanied by: Daughter Allergies Sulfa (Sulfonamide Antibiotics) Allergy (Intermediate, Verified 04/20/25 09:58) nausea, vomiting Tobacco use date assessed: 04/20/25 Fall risk assessment: 2 + Falls in past year Last assessed Fall Risk: 04/20/25 Dental Screening Dental Screen Date: 04/20/25 Did you have a dental visit in the last 12 months?: No Did you have a dental problem in the last 6 months where you did not have access to dental care?: No Was dental information given to patient?: No HPI HPI Comments History of Present Illness Details The patient is an 79-year-old female presenting with management of multiple chronic conditions. She was hospitalized at the end of March due to a COPD exacerbation and pneumonia, which led to an ICU admission. Her congestive heart failure was also exacerbated during this period, requiring an echocardiogram that showed an improvement in ejection fraction from 30-35% to 64%. The patient reports feeling very tired and is currently undergoing therapy twice a week to regain strength. She has a history of anemia, for which she is taking ferrous sulfate, and experiences constipation as a side effect. She also takes vitamin D and liquid potassium due to low potassium levels, which are monitored weekly. The patient has a history of atrial fibrillation and is on Eliquis for anticoagulation. She also takes amiodarone, which requires monitoring and coordination with her lung doctor for oxygen management. She reports a recent fall that resulted in bleeding from the rectum, which has since resolved. The bleeding was associated with bowel movements following the fall. The patient has been advised to maintain a high-protein diet to support weight gain and muscle mass, as she has experienced weight fluctuations. She is currently at 104 pounds, having previously dropped to 97 pounds. [facility] Medical History (Updated 04/20/25 @ 12:14 by Parul Williamson MD) Generalized weakness Acute on chronic anemia On continuous oral anticoagulation Acute dyspnea COPD (chronic obstructive pulmonary disease) Supplemental oxygen dependent Atrial fibrillation CHF (congestive heart failure) Persistent atrial fibrillation Cardiomyopathy COPD (chronic obstructive pulmonary disease) Respiratory failure with hypoxia Hypertension CHF (congestive heart failure) PAF (paroxysmal atrial fibrillation) Congestive heart failure Atrial fibrillation with rapid ventricular response Congestive heart failure Acute hypoxemic respiratory failure Encounter for cardioversion procedure Atrial fibrillation with RVR Acute exacerbation of congestive heart failure Acute on chronic hypoxic respiratory failure Acute HFrEF (heart failure with reduced ejection fraction) Chronic lung disease Skin lesion Dyslipidemia Cough due to DAISY inhibitor Neck pain GERD (gastroesophageal reflux disease) Aortic regurgitation Right hand pain Leg edema Allergic rhinitis Anxiety Surgical History Carpal tunnel syndrome, right History of bilateral cataract extraction History of partial hysterectomy Family History Father Medical history unknown Mother Medical history unknown Social History Household Members: None Housing: House Are you a primary health care attorney to a significant other at home: No Do you presently have visiting nurse or other home services: Yes Alcohol intake: current Alcohol intake frequency: does not drink Alcohol type: other Comment: 1:[address] Patient Tobacco Use Status: Former Tobacco user Tobacco use type: Cigarette e-Cigarette/Vaping Use: Never Used Second Hand Smoke Exposure: No Advance Directives Date on File: 10/30/24 service: No Current occupational status: retired Cognitive needs: No Hearing needs: No Vision needs: No Questionnaire Thrive Questionnaire Date Thrive assessed: 08/12/24 I am a: Patient What is your living situation today?: I have a steady place to live Within the past 12 months, did the food you bought not last and you didn't have the money to get more?: Never true Within the past 12 months, did you worry whether your food would run out before you got money to buy more?: Never true Do you have trouble paying for medicines?: No Do you have trouble getting transportation to medical appointments?: I choose not to answer this question Do you have trouble paying your heating and electricity bill?: I choose not to answer this question Do you have trouble taking care of your child, family member or friend?: I choose not to answer this question Do you have trouble with day-to-day activities such as bathing, preparing meals, shopping, managing finances, etc.?: I choose not to answer this question Are you currently unemployed and looking for a job?: I choose not to answer this question Are you interested in more education?: I choose not to answer this question Please select the resources that you would like help with: None Currently or been in a relationship where the following occur: I choose not to answer THRIVE Score: 0 AUDIT C Alcohol Use Questionnaire (AUDIT-C) 1. How often do you have a drink containing alcohol?: Never 3. How often do you have six or more drinks on one occasion?: Never Total Score: 0 Score Reviewed/Action Taken: No CHRISTIAN-7 AMB Questionnaire CHRISTIAN-7 Date CHRISTIAN - 7 assessed: 11/27/24 Source: Developed by Drs. Mick Kovacs, Yasmeen Rey, Louie Warren and colleagues, with an educational louis from [employer]. Review of Systems Const All systems reviewed & are unremarkable except as noted in HPI and below Card Denies chest pain at rest, Denies chest pain with activity, Denies edema, Denies irregular heart rhythm, Denies claudication, Denies dyspnea, Denies dyspnea on exertion, Denies orthopnea, Denies paroxysmal nocturnal dyspnea and Denies slow heart rate Resp Denies cough, Denies dyspnea and Denies dyspnea on exertion Physical exam (Primary Care) Vital Signs: Last Vital Signs Pulse 97 04/20/25 09:46 BP 122/76 04/20/25 09:46 Pulse Ox 96 04/20/25 09:46 Oxygen Delivery Method Nasal Cannula 04/20/25 09:46 Oxygen Flow Rate 2 04/20/25 09:46 BMI result Body Mass Index 17.9 BMI Assessment/Plan discussion: Low BMI Low, Plan discussed: lifestyle, increase calorie intake and dietary Tobacco/Smoking Status: Tobacco use Status Tobacco use date assessed 04/20/25 04/20/25 09:51 Patient Tobacco Use Status Former Tobacco user 04/20/25 09:47 Tobacco use type Cigarette 04/20/25 09:47 e-Cigarette/Vaping Use Never Used 04/20/25 09:47 Thrive Assessment: Date of Thrive Assessment Date Thrive assessed 08/12/24 04/20/25 09:47 Currently or been in a relationship where the following occur: I choose not to answer Resp Effort & Inspection: normal respiratory effort Auscultation: clear to auscultation bilaterally Cardio Jugular venous distension: no JVD Rate: regular rate Rhythm: regular rhythm Heart sounds: S1 normal heart sound present and S2 normal heart sound present Extrem General: Yes full ROM Right lower extremity: lower leg Details: pitting edema Details: 1+ Left lower extremity: lower leg Details: pitting edema Details: 1+ Coding Level of Care Code Est Pt Level 4 (36884) Complex EM visit Add On G2211 Diagnoses Chronic diastolic heart failure I50.32 Afib I48.91 Chronic obstructive pulmonary disease, unspecified COPD type J44.9 COPD type: unspecified COPD Rectal bleeding K62.5 Iron deficiency anemia D50.9 Time Spent (min) 23 Assessment & Plan Assessment & Plan (1) Chronic diastolic heart failure: Code(s): I50.32 - Chronic diastolic (congestive) heart failure Category: Medical (2) Afib: Code(s): I48.91 - Unspecified atrial fibrillation Category: Medical (3) COPD (chronic obstructive pulmonary disease): Comment: COPD is severe, had remained stable over the past few years. She has had no acute exacerbation. Her respiratory status decompensates usually due to super added congestive heart failure, which at present is under control Code(s): J44.9 - Chronic obstructive pulmonary disease, unspecified Category: Medical Qualifiers: COPD type: unspecified COPD Qualified Code(s): J44.9 - Chronic obstructive pulmonary disease, unspecified (4) Rectal bleeding: Code(s): K62.5 - Hemorrhage of anus and rectum Category: Medical (5) Iron deficiency anemia: Code(s): D50.9 - Iron deficiency anemia, unspecified Category: Medical Plan Plan 1. Chronic Obstructive Pulmonary Disease (Copd) The patient will continue using Breo for COPD management and is advised to follow up with the lung doctor for oxygen therapy management. A chest x-ray is recommended to monitor the condition post-pneumonia. 2. Atrial Fibrillation The patient is on Eliquis for anticoagulation and amiodarone for rhythm control. Regular monitoring of potassium and magnesium levels is advised due to the risk of arrhythmias. 3. Anemia The patient is taking ferrous sulfate for anemia management, with noted side effects of constipation. Regular blood work is advised to monitor hemoglobin and iron levels. 4. Congestive Heart Failure The patient is advised to monitor daily weight and report any significant changes to manage fluid retention. Bumetanide is prescribed for diuresis, and regular follow-up with the shine worker is recommended. The goal is to not gain 5 lb in a week 5. Pneumonia The patient is recovering from pneumonia and is advised to have a chest x-ray to ensure resolution. 6. Pulmonary Hypertension The patient is advised to continue follow-up with the lung specialist for management of pulmonary hypertension. 7. Valvular Heart Disease The patient is advised to continue regular follow-up with the shine worker to monitor valvular heart disease. Orders: Orders XR chest 2V Today J44.9 - Chronic obstructive pulmonary disease, unspecified Comprehensive Met. Panel Today I50.32 - Chronic diastolic (congestive) heart failure Complete Blood Count Auto Diff Today D64.9 - Anemia, unspecified Vitamin D 25-OH Total Today E55.9 - Vitamin D deficiency, unspecified Magnesium Today E83.42 - Hypomagnesemia NT Pro B Type Natriuretic Pept Today I50.32 - Chronic diastolic (congestive) heart failure Vitamin B12 and Folate Today E53.8 - Deficiency of other specified B group vitamins IRON PROFILE Today D64.9 - Anemia, unspecified Referrals Gastroenterology Referral K62.5 - Hemorrhage of anus and rectum Medications: New bumetanide 1 mg PO BID 60 tabs 2RF 30 days amiodarone 200 mg PO DAILY 90 tabs 1RF 90 days
--- OUTSIDE RECORDS SUMMARY | 2025-04-20 10:20 | XMS_ITS | Patient Health Record ---
Author Organization [facility] Address [address] [place] [address] Care Team Providers Care Sewage Screen Operator Name Role Phone Parul Cartagena Primary Care Provider Unavailab Mick Quiroz Unavailable [phone] Reason For Referral No Information Medications Medication SIG (Take, Route, Frequency, Duration) Notes Start Date End Date Status ProAir HFA 108 (90 Base) MCG/ACT 2 puffs as needed Inhalation every 4 hrs Active Spiriva Respimat 2.5 MCG/ACT TAKE 2 PUFFS BY MOUTH ONCE A DAY Inhalation; Duration: 30 Active Omeprazole 20 MG 1 capsule Orally Once a day; Duration: 30 Active Qvar 80 MCG/ACT INHALE 2 PUFF(S) BY MOUTH TWICE A DAY Inhalation; Duration: 30 Active amLODIPine Besylate 5 MG TAKE 1 TABLET BY MOUTH DAILY Oral; Duration: 30 Active LORazepam 0.5 MG (Schedule IV Drug) TAKE 1 TABLET EVERY 8 HOURS Oral; Duration: 30 Usually once a day, occasionally twice Active Problems Problem Type SNOMED Code ICD Code Onset Dates Problem Status W/U Status Risk Notes Problem Screening for malignant neoplasm of colon (082496355) Encounter for screening for malignant neoplasm of colon (Z12.11) Active confirmed Problem Screening for malignant neoplasm of rectum (682804441) Encounter for screening for malignant neoplasm of rectum (Z12.12) Active confirmed Problem Epigastric pain (71471114) Abdominal pain, epigastric (R10.13) Active confirmed Problem Gastroesophageal reflux disease (515906149) Gastroesophageal reflux disease, esophagitis presence not specified (K21.9) Active confirmed Problem Anemia (739033715) Anemia (D64.9) Active confir med Plan Of Treatment Future Test Test Name Order Date UPPER GI ENDOSCOPY 07/20/2016 COLONOSCOPY 07/20/2016 Insurance Providers Payer Name Payer Address Payer Phone Subscriber Number Group Number Insured Name Patient Relationship to Insured Coverage Start Date Coverage End Date [employer] [address] [place] [phone] [id number] LAZARO PAULSON Self - patient is the insured Medical (General) History Medical History History ICD Code Hypertension COPD Denies MD,DM,CVA,renal disease GERD Neg. Hemoccults in 05/2016--she does the m yearly Chest pain 07/2016--having a cardiac w/u with Dr. Reilly--ETT and Cardiac ECHO Surgical History Surgery Date(Month/Year) Hysterectomy and removal of 1 ovary 1980 Tonsils/adenoids
--- OUTSIDE RECORDS SUMMARY | 2025-04-20 10:20 | XMS_ITS | Patient Health Record ---
[facility] Organization [facility] [place] Address [address] [place] [address] Care Team Providers Care Turbo Generator Oiler Name Role Phone Parul Crystal MD Primary Care Provider Unavail able Renuka Loja Unavailable [phone] Allergies Allergen (clinical drug ingredient) Drug/Non Drug Allergy documented on EMR Reaction Allergy Type Onset Date Status sulfamethoxazole / trimethoprim Bactrim Unknown Drug Allergy Active Reason For Referral Diagnosis 1 Pain in unspecified foot (M79.673) Referring Provider First Name Parul Referring Provider Last Name Bonilla Referred Organization [facility] Jarett Referred Provider Renuka Loja Referred Address [address] [place], [place],[address], Referred Provider Specialty Podiatry Referral Priority Routine [...] atherosclerosis of arteries of lower limbs (disorder) ([id number] ) Atherosclerosis of [place] artery of both lower extremities, with unspecified presence of clinical manifestation (I70.203) Active confirmed Q7(A), Q8(2B), Q9(1B,2 C) Problem Ischemic ulcer o f left foot, limited to breakdown of skin (L97.521) Active confirmed Problem Varicose veins of bilateral lower limbs (42893180454768927 ) Symptomatic varicose veins of both lower extremities (I83.893) Active confirmed Vital Signs Blood pressure diastolic 60 mm Hg 12/08/2024 Height 5ft3in in 12/08/2024 Blood pressure systolic 130 mm Hg 12/08/2024 Weight 115 lbs 12/08/2024 BMI 20.37 kg/m2 12/08/2024 Encounters Encounter Location Date Provider Diagnosis [address] [address] 10/27/2024 Renuka Perica Atherosclerosis of [place] artery of both lower extremities, with unspecified presence of clinical manifestation I70.203 ; Xerosis of skin L85.3 ; Pain in left toe(s) M79.675 ; Skin fissure R23.4 ; Ischemic ulcer of left foot, limited to breakdown of skin L97.521 ; Lower extremity edema R60.0 ; Symptomatic varicose veins of both lower extremities I83.893 and Left foot pain M79.[address] [address] 12/08/2024 Renuka Perica Atherosclerosis of [place] artery of both lower extremities, with unspecified presence of clinical manifestation I70.203 and Xerosis of skin L85.[address] [address] 08/24/2024 Renuka Perica [address] [address] 10/27/2024 Renuka Freedom Assessments Encounter Date Diagnosis (ICD Code) Assessment Notes Treatment Notes Treatment Clinical Notes Section Notes 10/27/2024 Xerosis of skin (ICD-10 - L85.3) 10/27/2024 Atherosclerosis of [place] artery of both lower extremities, with unspecified presence of clinical manifestation (ICD-10 - I70.203) Q7(A), Q8(2B), Q9(1B,2C) 12/08/2024 Xerosis of skin (ICD-10 - L85.3) 12/08/2024 Atherosclerosis of [place] artery of both lower extremities, with unspecified [...] Insured Coverage Start Date Coverage End Date [facility] [id number] [place] [id number] [id number] Yasmeen Andrews Self - patient is the insured Medical (General) History Medical History History ICD Code Anxiety Cataracts High Blood Pressure Lung disease Reflux ( GERD) Surgical History Surgery Date(Month/Year) partial hysterectomy 1973 appendectomy 1964 Hospitalization History Reason Date(Month/Year) C- short of breath 09/2024
== END 2025-04-20 10:23 | disposition home or self-care (01) ==
LOC: HO.HMCH 09:20
PROVIDERS: Visit Provider Internal Medicine
DX: I50.32 Chronic diastolic (congestive) heart failure (principal); I48.91 Unspecified atrial fibrillation; J44.9 Chronic obstructive pulmonary disease, unspecified; K62.5 Hemorrhage of anus and rectum; D50.9 Iron deficiency anemia, unspecified

== ENCOUNTER → 2025-04-20 10:46 | Outpatient (BNV) | payer MEDICARE, SELFPAY | PROVIDERS: PCP Internal Medicine; Visit Provider Radiology Diagnostic Radiology | DX: J43.9 Emphysema, unspecified (principal) | CPT/HCPCS: 71046 ==

== ENCOUNTER 2025-04-22 13:19 | Outpatient (REF) | payer MEDICARE, SELFPAY ==
[2025-04-22 15:14] LABS: Alanine Aminotransferase 29 U/L (0-31); Albumin Level 4.4 g/dL (3.5-5.0); Alkaline Phosphatase 195 U/L (39-117); Anion Gap 13 (12-20); Aspartate Amino Transferase 34 U/L (5-31); Blood Urea Nitrogen 29 mg/dL (9-16); Calcium 9.0 mg/dL (8.4-10.2); Carbon Dioxide 34 mmol/L (22-29); Chloride 101 mmol/L (96-108); Cholesterol 109 mg/dL (<200); Estimated Glomerular Filt Rate 45; HDL Cholesterol 57 mg/dL (>40); Potassium 3.9 mmol/L (3.3-5.1); Sodium 144 mmol/L (135-145); Total Protein 6.9 g/dL (6.5-8.0); Triglycerides 34 mg/dL (<150)
== END 2025-04-22 13:20 | disposition home or self-care (01) ==
LOC: HO.LAB 13:19
PROVIDERS: PCP Internal Medicine; Visit Provider Internal Medicine
DX: I11.0 Hypertensive heart disease with heart failure (principal); I50.33 Acute on chronic diastolic (congestive) heart failure; J44.9 Chronic obstructive pulmonary disease, unspecified; J96.21 Acute and chronic respiratory failure with hypoxia; E78.5 Hyperlipidemia, unspecified; Z87.891 Personal history of nicotine dependence; Z79.51 Long term (current) use of inhaled steroids; Z79.899 Other long term (current) drug therapy
CPT/HCPCS: 36415; 80053; 80061; 94618; 99212

== ENCOUNTER 2025-04-22 13:19 | Outpatient (AMB) | payer MEDICARE, SELFPAY ==
[2025-04-22 13:28] VITALS: BP 118/50; PULSE 98; O2SAT 96
--- NOTE | 2025-04-22 13:28 | A.OFFVIS_ITS ---
Vital Signs 04/22/25 13:28 Height 5 ft 4 in BP 118/50 L Blood Pressure Location Lt brachial Position Sitting Pulse 98 Pulse Source Pulse Oximeter Pulse Oximetry (%) 96 Oxygen Delivery Method Nasal Cannula Oxygen Flow Rate 2 Intake Visit Reasons: [facility] Intake Note: pt is here for follow up from [facility] and multiple rehab stays mostly for CHF, her poc (which she had gotten from family member) she needs to be tested for replacement from [facility], [place]. The cough and searching for breath and constant fatigue. 24 hours oxygen on 2 liters. Machine Shop Supervisor Required: No Allergies Sulfa (Sulfonamide Antibiotics) Allergy (Intermediate, Verified 04/22/25 13:34) nausea, vomiting Medication List - Last Reconciled 04/22/25 by Tamara Rehman MD acetaminophen 650 mg PO Q6H PRN amiodarone 200 mg PO DAILY 90 days apixaban (Eliquis) 2.5 mg PO BID ascorbic acid (vitamin C) 500 mg PO DAILY benzonatate 100 mg PO TID PRN 7 days bumetanide 1 mg PO BID 30 days cholecalciferol (vitamin D3) 50 mcg PO DAILY 90 days compr.stocking,knee,long,small As directed dapagliflozin propanediol (Farxiga) 10 mg PO DAILY ferrous sulfate 325 mg PO BID fluticasone furoate-vilanterol 200-25 mcg/dose (Breo Ellipta) 1 inh inhalation DAILY folic acid 0.8 mg PO DAILY 90 days gabapentin 100 mg PO BEDTIME PRN levalbuterol HCl 1.25 mg (3 mL) inhalation Q4-6H PRN 30 days levalbuterol tartrate 45 mcg/actuation 2 puffs inhalation Q4-6H PRN 30 days lorazepam 0.5 mg PO Q8H 30 days magnesium oxide 400 mg PO BIDPC 90 days melatonin 15 mg PO BEDTIME PRN metoprolol succinate ER 50 mg PO DAILY 90 days pantoprazole 40 mg PO DAILY@0630 90 days potassium chloride 20 mEq (15 mL) PO DAILY rosuvastatin 2.5 mg PO BEDTIME sodium chloride 1,000 mg PO DAILY spironolactone 50 mg PO DAILY tiotropium bromide 2.5 mcg/actuation (Spiriva Respimat) 2 puffs inhalation DAILY 30 days torsemide 40 mg See Protocol PO DAILY Do you need a note to return to daycare/school/sports/work: No HPI Comments Details: Yasmeen comes today for post hospital discharge follow-up. She has been recently treated at [facility] for acute on chronic congestive heart failure. She had mild exacerbation of COPD as well. On discharge she needed use use of oxygen all the time. Previously she has been using POC which she had acquired herself, but it is somewhat dysfunction. Now she is on O2 concentrator at home and portable cylinder when she goes outdoors She has been using Breo Ellipta once a day and Spiriva Respimat 2 inhalation daily , in addition she does have nebulizer and uses ipratropium-albuterol solution Q 6 hours p.r.n. during the day. For outdoors she has levalbuterol and uses 2 puffs Q 4-6 hours p.r.n.. Her main complaint is ongoing dry cough. [facility] Medical History Generalized weakness Acute on chronic anemia On continuous oral anticoagulation Acute dyspnea COPD (chronic obstructive pulmonary disease) Supplemental oxygen dependent Atrial fibrillation CHF (congestive heart failure) Persistent atrial fibrillation Cardiomyopathy COPD (chronic obstructive pulmonary disease) Respiratory failure with hypoxia Hypertension CHF (congestive heart failure) PAF (paroxysmal atrial fibrillation) Congestive heart failure Atrial fibrillation with rapid ventricular response Congestive heart failure Acute hypoxemic respiratory failure Encounter for cardioversion procedure Atrial fibrillation with RVR Acute exacerbation of congestive heart failure Acute on chronic hypoxic respiratory failure Acute HFrEF (heart failure with reduced ejection fraction) Chronic lung disease Skin lesion Dyslipidemia Cough due to DAISY inhibitor Neck pain GERD (gastroesophageal reflux disease) Aortic regurgitation Right hand pain Leg edema Allergic rhinitis Anxiety Surgical History Carpal tunnel syndrome, right History of bilateral cataract extraction History of partial hysterectomy Family History Father Medical history unknown Mother Medical history unknown Social History Household Members: None Housing: House Are you a primary healthcare specialist to a significant other at home: No Do you presently have visiting nurse or other home services: Yes Alcohol intake: current Alcohol intake frequency: does not drink Alcohol type: other Comment: 1:[address] Patient Tobacco Use Status: Former Tobacco user Tobacco use type: Cigarette e-Cigarette/Vaping Use: Never Used Second Hand Smoke Exposure: No Advance Directives Date on File: 10/30/24 service: No Current occupational status: retired Cognitive needs: No Hearing needs: No Vision needs: No Review of Systems Const All systems reviewed & are unremarkable except as noted in HPI and below Eyes Reports no additional complaints ENT Reports nasal congestion (Mild intermittent) and Reports neck pain (Mild off and on) Card Denies chest pain at rest, Denies chest pain with activity, Denies edema, Denies irregular heart rhythm, Denies claudication, Denies dyspnea, Denies dyspnea on exertion, Denies orthopnea, Denies paroxysmal nocturnal dyspnea and Denies slow heart rate Resp Denies cough, Denies dyspnea and Denies dyspnea on exertion GI Reports heartburn (GERD symptoms controlled with med) Reports no additional complaints Musc Reports neck pain (Mild off and on) Skin/Breast Reports rash Neuro Reports no additional complaints Psych Reports no additional complaints Physical Exam Vital Signs: Last Vital Signs Pulse 98 04/22/25 13:28 BP 118/50 L 04/22/25 13:28 Pulse Ox 96 04/22/25 13:28 Oxygen Delivery Method Nasal Cannula 04/22/25 13:28 Oxygen Flow Rate 2 04/22/25 13:28 Const General: comfortable, no acute distress, alert and awake Orientation/consciousness: patient oriented x3 HEENT Head: Yes normal to inspection General nose exam: No nasal polyps present, No nasal discharge present and Other nasal findings present (Mild nasal congestion is present) Face and sinus: Yes sinuses nontender Mouth: oropharynx normal Throat: Yes posterior oropharynx normal Eyes General: appearance normal, both eyes and all related structures Neck Neck: Yes normal visual inspection, Yes no lymphadenopathy, Yes trachea midline and Yes no JVD Thyroid: Thyroid normal Chest Chest palpation & inspection: normal inspection of the chest, normal palpation of entire chest wall and no tenderness Resp Other: Percussion note hyper-resonant, breath sounds are equal on both sides with prolonged expiratory phase. No wheezes /rhonchi, but a few fine inspiratory crackles over the basilar areas. Cardio Palpation: normal PMI Rate: regular rate Rhythm: regular rhythm Heart sounds: no gallops and no murmurs GI Palpation (GI): Soft to palpation, nontender, No hepatosplenomegaly present and no masses Auscultation: normal bowel sounds Back/Spine/Pelvis Thoracic/Lumbar Spine: thoracic and lumbar spine normal to inspection Skin General skin exam: no rashes or lesions noted Neuro General: patient oriented x3 and no focal motor deficits Cranial nerves: Yes CN's II-XII intact bilaterally Extrem General: Yes normal to inspection, Yes no calf tenderness and Yes edema (no edema noted today ) Psych Appearance: grossly normal and well kempt Speech and movement: Normal speech and movement present Office Procedures 6 Minute Walk Time:: 14:03 SPO2 % at rest: 95 Pulse at rest: 90 SPO2 % during excercise: 95 Pulse during excercise: 110 SPO2 % after excercise: 95 Pulse after excercise: 90 Distance in yards walked: 120 Supplemental Oxygen: 4 l pulse 6 Minute Walk (with oxygen) Performance Observations: pt. uses 2 l cont at home, staarted at 4 l pulse, [place] [address] - 6 Minute Walk Assessment & Plan Assessment & Plan (1) Congestive heart failure: Comment: Acute on chronic congestive heart failure with preserved LV EJ. ( mostly right- sided congestive heart failure ) It seems to be fairly well controlled at this time, but she presents with increase generalized weakness and may be due to excessive diuresis Code(s): I50.9 - Heart failure, unspecified Category: Medical Qualifiers: Heart failure chronicity: acute on chronic Heart failure type: diastolic Qualified Code(s): I50.33 - Acute on chronic diastolic (congestive) heart failure Plan: Continue the current meds. BUN, creatinine, and electrolytes are ordered. (2) COPD (chronic obstructive pulmonary disease): Comment: COPD is severe, had remained stable over the past few years. Recent admission because of acute on chronic congestive heart failure, and along with that she did have mild acute exacerbation of COPD as well. At present I think her COPD is controlled as well as expected. Code(s): J44.9 - Chronic obstructive pulmonary disease, unspecified Category: Medical Qualifiers: COPD type: unspecified COPD Qualified Code(s): J44.9 - Chronic obstructive pulmonary disease, unspecified Plan: I explained to her the list of respiratory meds, that she should continue to use: Breo Ellipta 200-25 1 inhalation daily Spiriva Respimat 2.5 2 inhalations daily Ipratropium-albuterol solution in the nebulizer Q 6 hours PRN . Levalbuterol-45 2 puffs Q 6 hours p.r.n. when outdoors. For cough Robitussin plain 2 tsp t.i.d. is fine . (3) Respiratory failure with hypoxia: Comment: PATIENT HAS HAD HYPOXEMIC RESPIRATORY FAILURE AND DOES NEED OXYGEN SUPPLEMENTATION. She does have O2 concentrator at home but needs POC . AT 6 MINUTES WALK TEST, AND FOUND TO MAINTAIN O2 SAT ABOVE 90% WITH THE 4 L/MINUTE. HER PREVIOUS POC WHICH SHE HAD ACQUIRED FROM SOMEBODY, IS NOT FUNCTIONING SO ORDER FOR A NEW POC IS SENT. Code(s): J96.91 - Respiratory failure, unspecified with hypoxia Category: Medical Qualifiers: Chronicity: acute on chronic Qualified Code(s): J96.21 - Acute and chronic respiratory failure with hypoxia Plan: USE O2 2 L/MINUTE CONTINUOUSLY DURING THE DAY AND ALSO AT NIGHT WHEN GOING, OUTDOORS AND USING THE POC UNIT MAY INCREASE THE O2 TO 4 L/MINUTE . Orders: Orders AMB 6 minute walk Today Ashley Sanchez, RT I50.33 - Acute on chronic diastolic (congestive) heart failure Blood Urea Nitrogen Today Tamara Rehman MD I50.33 - Acute on chronic diastolic (congestive) heart failure Creatinine Today Tamara Rehman MD I50.33 - Acute on chronic diastolic (congestive) heart failure Electrolytes Today Tamara Rehman MD I50.33 - Acute on chronic diastolic (congestive) heart failure Coding Level of Care Code Est Pt Level 4 (11238) Diagnoses Acute on chronic diastolic congestive heart failure I50.33 Heart failure chronicity: acute on chronic Heart failure type: diastolic Chronic obstructive pulmonary disease, unspecified COPD type J44.9 COPD type: unspecified COPD Acute on chronic respiratory failure with hypoxia J96.21 Chronicity: acute on chronic CPT Codes Coding ([id number])
[2025-04-22 14:05] VITALS: PULSE 90; O2SAT 95
--- OUTSIDE RECORDS SUMMARY | 2025-04-22 16:48 | XMS_ITS | Encounter Summary ---
Author Organization [employer] Address [address] [place] [address] Care Team Providers Care Administrative Executive Name Role Phone Louis Velazco MD Primary Care Provider [phone] Encounter Details Date Type Department Care Team (Late st Contact Info) Description 03/04/2025 Lab Requisition [facility] - Main Lab [address] [place] [address] Betito Ledezma MD [address] [place] [address] Essential (primary) hypertension; Anemia, unspecified Social History [...] LAB CHEMISTRY METHOD 03/05/2025 9:53 AM EDT [facility] Potassium 3.1(L) 3.5 - 5.5 mmol/L LAB CHEMISTRY METHOD 03/05/2025 9:53 AM [facility] Chloride 90(L) 96 - 110 mmol/L LAB CHEMISTRY METHOD 03/05/2025 9:53 AM [facility] CO2 38(H) 21 - 32 mmol/L LAB CHEMISTRY METHOD 03/05/2025 9:53 AM [facility] Anion Gap 5 3 - 11 LAB CHEMISTRY METHOD 03/05/2025 9:53 AM [facility] Glucose 78 70 - 100 mg/dL LAB CHEMISTRY METHOD 03/05/2025 9:53 AM [facility] BUN 19 5 - 25 mg/dL LAB CHEMISTRY METHOD 03/05/2025 9:53 AM [facility] Creatinine 0.82 0.50 - 1.10 mg/dL LAB CHEMISTRY METHOD 03/05/2025 9:53 AM [facility] eGFR 72 >=60 mL/min/1. 73m2 LAB CHEMISTRY METHOD 03/05/2025 9:53 AM [facility] Comment:Calculation based on the Chronic Kidney Disease Epidemiology Collaboration (CKD-EPI) equation refit without adjustment for race. BUN/Creatinine Ratio 23.2 LAB CHEMISTRY METHOD 03/05/2025 9:53 AM [facility] Calcium 8.7 8.5 - 10.5 mg/dL LAB CHEMISTRY METHOD 03/05/2025 9:53 AM [facility] LAB Blood Venous blood specimen / Unknown Venipuncture / Unknown 03/05/2025 6:56 AM EDT 03/05/2025 8:46 AM EDT us Betito Ledezma MD LAB BLOOD ORDERABLES Final Result [facility] [address] [place] [address], * (ABNORMAL) Iron (03/05/2025 6:56 AM EDT) Pathologist [facility] Iron 15(L) 40 - 150 mcg/dL LAB CHEMISTRY METHOD 03/05/2025 9:47 AM [facility] Blood Venous blood specimen / Unknown Venipuncture / Unknown 03/05/2025 6:56 AM EDT 03/05/2025 8:46 AM EDT Betito Ledezma MD LAB BLOOD ORDERABLES Final Result [facility] [address] [place] [address], * (ABNORMAL) Complete blood count (03/05/2025 6:56 AM EDT) [facility] WBC 6.6 4.8 - 10.8 K/mcL LAB HEMETOLOGY METHOD 03/05/2025 9:01 AM [facility] RBC 3.50(L) 3.80 - 4.80 M/mcL LAB HEMETOLOGY METHOD 03/05/2025 9:01 AM [facility] Hemoglobin 7.7(L) 11.5 - 16.0 g/dL LAB HEMETOLOGY METHOD 03/05/2025 9:01 AM [facility] Hematocrit 27.1(L) 35.0 - 47.0 % LAB HEMETOLOGY METHOD 03/05/2025 9:01 AM [facility] MCV 76.8(L) 79.0 - 98.0 FL LAB HEMETOLOGY METHOD 03/05/2025 9:01 AM [facility] MCH 21.8(L) 27.0 - 32.0 pcg LAB HEMETOLOGY METHOD 03/05/2025 9:01 AM [facility] MCHC 28.4(L) 32.0 - 37.0 g/dL LAB HEMETOLOGY METHOD 03/05/2025 9:01 AM EDT [facility] RDW 21.5(H) 11.0 - 15.0 % LAB HEMETOLOGY METHOD 03/05/2025 9:01 AM EDT [facility] Platelets 162 130 - 400 K/mcL LAB HEMETOLOGY METHOD 03/05/2025 9:01 AM EDT [facility] MPV 9.6 7.0 - 11.0 FL LAB HEMETOLOGY METHOD 03/05/2025 9:01 AM EDT [facility] NRBC 0.0 <1.0 % LAB HEMETOLOGY METHOD 03/05/2025 9:01 AM EDT [facility] NRBC Absolute 0.00 <0.10 K/mcL LAB HEMETOLOGY METHOD 03/05/2025 9:01 AM EDT [facility] Blood Venous blood specimen / Unknown Venipuncture / Unknown 03/05/2025 6:56 AM EDT 03/05/2025 8:46 AM EDT us Betito Ledezma MD LAB BLOOD ORDERABLES Final Result [facility] [address] [place] [address], documented in this encounter Visit Diagnoses Diagnosis Essential (primary) hypertension Unspecified essential hypertension Anemia, unspecified documented in this encounter Care Teams Administrative Executive Relationship Specialty Start Date End Date Louis Velazco MD [address] [place] [phone] PCP - General Internal Medicine 11/06/24 documented as of this encounter
--- OUTSIDE RECORDS SUMMARY | 2025-04-22 16:48 | XMS_ITS | Encounter Summary ---
Author Organization [employer] Address [address] [place] [address] Care Team Providers Care Forestry Consultant Name Role Phone Louis Velazco MD Primary Care Provider [phone] Encounter Details Date Type Department Care Team (Late st Contact Info) Description 11/06/2024 Lab Requisition [facility] - Main Lab [address] [facility] [place] [address] Louis Velazco MD [address] [place] [phone] Acute systolic (congestive) heart failure (CMS/HCC [...] mmol/L LAB CHEMISTRY METHOD 11/06/2024 11:54 AM [facility] Potassium 3.6 3.5 - 5.5 mmol/L LAB CHEMISTRY METHOD 11/06/2024 11:54 AM [facility] Chloride 94(L) 96 - 110 mmol/L LAB CHEMISTRY METHOD 11/06/2024 11:54 AM [facility] CO2 32 21 - 32 mmol/L LAB CHEMISTRY METHOD 11/06/2024 11:54 AM [facility] Anion Gap 9 3 - 11 LAB CHEMISTRY METHOD 11/06/2024 11:54 AM [facility] Glucose 95 70 - 100 mg/dL LAB CHEMISTRY METHOD 11/06/2024 11:54 AM [facility] BUN 43(H) 5 - 25 mg/dL LAB CHEMISTRY METHOD 11/06/2024 11:54 AM [facility] Creatinine 1.09 0.50 - 1.10 mg/dL LAB CHEMISTRY METHOD 11/06/2024 11:54 AM [facility] eGFR 51(L) >=60 mL/min/1. 73m2 LAB CHEMISTRY METHOD 11/06/2024 11:54 AM [facility] Comment:Calculation based on the Chronic Kidney Disease Epidemiology Collaboration (CKD-EPI) equation refit without adjustment for race. BUN/Creatinine Ratio 39.4 LAB CHEMISTRY METHOD 11/06/2024 11:54 AM [facility] Calcium 8.8 8.5 - 10.5 mg/dL LAB CHEMISTRY METHOD 11/06/2024 11:54 AM [facility] AST (SGOT) 301(H) 10 - 42 unit/L LAB CHEMISTRY METHOD 11/06/2024 11:54 AM [facility] Comment:Results verified by repeat testing ALT (SGPT) 348(H) 10 - 60 unit/L LAB CHEMISTRY METHOD 11/06/2024 11:54 AM T [facility] Comment:Results verified by repeat testing Alkaline Phosphatase 170(H) 42 - 121 unit/L LAB CHEMISTRY METHOD 11/06/2024 11:54 AM [facility] Total Protein 5.8(L) 6.0 - 8.0 g/dL LAB CHEMISTRY METHOD 11/06/2024 11:54 AM [facility] Albumin 3.5 3.2 - 5.0 g/dL LAB CHEMISTRY METHOD 11/06/2024 11:54 AM [facility] Total Bilirubin 1.1 0.0 - 1.4 mg/dL LAB CHEMISTRY METHOD 11/06/2024 11:54 AM [facility] Blood Venous blood specimen / Unknown Venipuncture / Unknown 11/06/2024 5:13 AM EDT 11/06/2024 10:04 AM EDT us Louis Velazco MD LAB BLOOD ORDERABLES Final Resu lt [facility] [address] [place] [address], * (ABNORMAL) Complete blood count (11/06/2024 5:13 AM EDT) WBC 12.7(H) 4.8 - 10.8 K/[facility] LAB HEMETOLOGY METHOD 11/06/2024 10:49 AM EDT [facility] RBC 3.60(L) 3.80 - 4.80 M/[facility] LAB HEMETOLOGY METHOD 11/06/2024 10:49 AM EDT [facility] Hemoglobin 9.2(L) 11.5 - 16.0 g/dL LAB HEMETOLOGY METHOD 11/06/2024 10:49 AM EDT [facility] Hematocrit 30.9(L) 35.0 - 47.0 % LAB HEMETOLOGY METHOD 11/06/2024 10:49 AM EDT [facility] MCV 84.9 79.0 - 98.0 FL LAB HEMETOLOGY METHOD 11/06/2024 10:49 AM EDT [facility] MCH 25.3(L) 27.0 - 32.0 pcg LAB HEMETOLOGY METHOD 11/06/2024 10:49 AM EDT [facility] MCHC 29.8(L) 32.0 - 37.0 g/dL LAB HEMETOLOGY METHOD 11/06/2024 10:49 AM EDT [facility] RDW 16.9(H) 11.0 - 15.0 % LAB HEMETOLOGY METHOD 11/06/2024 10:49 AM EDT [facility] Platelets 202 130 - 400 K/mcL LAB HEMETOLOGY METHOD 11/06/2024 10:49 AM EDT [facility] MPV 10.6 7.0 - 11.0 FL LAB HEMETOLOGY METHOD 11/06/2024 10:49 AM EDT [facility] NRBC 0.4 <1.0 % LAB HEMETOLOGY METHOD 11/06/2024 10:49 AM [facility] NRBC Absolute 0.05 <0.10 K/mcL LAB HEMETOLOGY METHOD 11/06/2024 10:49 AM EDT [facility] Blood Venous blood specimen / Unknown Venipuncture / Unknown 11/06/2024 5:13 AM EDT 11/06/2024 10:04 AM EDT us Louis Velazco MD LAB BLOOD ORDERABLES Final Resu lt [facility] [address] [place] [address], documented in this encounter Visit Diagnoses Diagnosis Acute systolic (congestive) heart failure ([facility] V24, [facility] V28) Chronic obstructive pulmonary disease with (acute) exacerbation ([facility] V24, [facility] V28) documented in this encounter Care Teams Forestry Consultant Relationship Specialty Start Date End Date Louis Velazco MD [address] [place] [address] PCP - General Internal Medicine 11/06/24 documented as of this encounter
--- OUTSIDE RECORDS SUMMARY | 2025-04-22 16:48 | XMS_ITS | Encounter Summary ---
Author Organization [facility] Address [address] [place] [address] Care Team Providers Care Document Management Specialist Name Role Phone Louis Velazco MD Primary Care Provider [phone] Encounter Details Date Type Department Care Team (Late st Contact Info) Description 03/03/2025 Lab Requisition [facility] - Main Lab [address] [place] [address] Betito Ledezma MD [address] [place] [address] Hypokalemia Social History Tobacco Use Types Packs/Day [...] LAB CHEMISTRY METHOD 03/03/2025 10:44 AM EDT [facility] Potassium 3.7 3.5 - 5.5 mmol/L LAB CHEMISTRY METHOD 03/03/2025 10:44 AM T [facility] Chloride 88(L) 96 - 110 mmol/L LAB CHEMISTRY METHOD 03/03/2025 10:44 AM [facility] CO2 35(H) 21 - 32 mmol/L LAB CHEMISTRY METHOD 03/03/2025 10:44 AM [facility] Anion Gap 8 3 - 11 LAB CHEMISTRY METHOD 03/03/2025 10:44 AM [facility] Glucose 66(L) 70 - 100 mg/dL LAB CHEMISTRY METHOD 03/03/2025 10:44 AM [facility] BUN 19 5 - 25 mg/dL LAB CHEMISTRY METHOD 03/03/2025 10:44 AM [facility] Creatinine 0.76 0.50 - 1.10 mg/dL LAB CHEMISTRY METHOD 03/03/2025 10:44 AM [facility] eGFR 79 >=60 mL/min/1. 73m2 LAB CHEMISTRY METHOD 03/03/2025 10:44 AM [facility] Comment:Calculation based on the Chronic Kidney Disease Epidemiology Collaboration (CKD-EPI) equation refit without adjustment for race. BUN/Creatinine Ratio 25.0 LAB CHEMISTRY METHOD 03/03/2025 10:44 AM [facility] Calcium 8.7 8.5 - 10.5 mg/dL LAB CHEMISTRY METHOD 03/03/2025 10:44 AM [facility] Blood Venous blood specimen / Unknown Venipuncture / Unknown 03/03/2025 6:15 AM EDT 03/03/2025 9:33 AM EDT us Betito Ledezma MD LAB BLOOD ORDERABLES Final Result [facility] [address] [place] [address], * (ABNORMAL) Complete blood count (03/03/2025 6:15 AM EDT) WBC 8.0 4.8 - 10.8 K/[facility] LAB HEMETOLOGY METHOD 03/03/2025 10:42 AM [facility] RBC 3.50(L) 3.80 - 4.80 M/mcL LAB HEMETOLOGY METHOD 03/03/2025 10:42 AM [facility] Hemoglobin 7.7(L) 11.5 - 16.0 g/dL LAB HEMETOLOGY METHOD 03/03/2025 10:42 AM [facility] Hematocrit 27.3(L) 35.0 - 47.0 % LAB HEMETOLOGY METHOD 03/03/2025 10:42 AM [facility] MCV 78.0(L) 79.0 - 98.0 FL LAB HEMETOLOGY METHOD 03/03/2025 10:42 AM [facility] MCH 22.0(L) 27.0 - 32.0 pcg LAB HEMETOLOGY METHOD 03/03/2025 10:42 AM [facility] MCHC 28.2(L) 32.0 - 37.0 g/dL LAB HEMETOLOGY METHOD 03/03/2025 10:42 AM [facility] RDW 22.0(H) 11.0 - 15.0 % LAB HEMETOLOGY METHOD 03/03/2025 10:42 AM [facility] Platelets 145 130 - 400 K/mcL LAB HEMETOLOGY METHOD 03/03/2025 10:42 AM [facility] MPV 10.0 7.0 - 11.0 FL LAB HEMETOLOGY METHOD 03/03/2025 10:42 AM [facility] NRBC 0.0 <1.0 % LAB HEMETOLOGY METHOD 03/03/2025 10:42 AM [facility] NRBC Absolute 0.00 <0.10 K/mcL LAB HEMETOLOGY METHOD 03/03/2025 10:42 AM [facility] Blood Venous blood specimen / Unknown Venipuncture / Unknown 03/03/2025 6:15 AM EDT 03/03/2025 9:33 AM EDT us Betito Ledezma MD LAB BLOOD ORDERABLES Final Result [facility] [address] [place] [address], documented in this encounter Visit Diagnoses Diagnosis Hypokalemia Hypopotassemia documented in this encounter Care Teams Document Management Specialist Relationship Specialty Start Date End Date Louis Velazco MD [address] [place] [address] PCP - General Internal Medicine 11/06/24 documented as of this encounter
--- OUTSIDE RECORDS SUMMARY | 2025-04-22 16:48 | XMS_ITS | Patient Health Record ---
Author Organization [facility] Jarocho Busbyley Address [address] [facility] [place] [address] Care Team Providers Care Textiles Printer Name Role Phone Parul Crystal MD Primary Care Provider Unavail able Renuka Loja Unavailable [phone] Allergies Allergen (clinical drug ingredient) Drug/Non Drug Allergy documented on EMR Reaction Allergy Type Onset Date Status Bactrim Unknown Drug Allergy Active Reason For Referral Diagnosis 1 Pain in unspecified foot (M79.673) Referring Provider First Name Parul Referring Provider Last Name Bonilla Referred Organization [facility] Jarett Referred Provider Renuka Loja Referred Address [address] [facility] [place],[address], Referred Provider Specialty Podiatry Referral Priority Routine [...] atherosclerosis of arteries of lower limbs (disorder) ([id number] ) Atherosclerosis of [place] artery of both lower extremities, with unspecified presence of clinical manifestation (I70.203) Active confirmed Q7(A), Q8(2B), Q9(1B,2 C) Problem Ischemic ulcer o f left foot, limited to breakdown of skin (L97.521) Active confirmed Problem Varicose veins of bilateral lower limbs ([id number] ) Symptomatic varicose veins of both lower extremities (I83.893) Active confirmed Vital Signs Blood pressure diastolic 60 mm Hg 12/08/2024 Height 5ft3in in 12/08/2024 Blood pressure systolic 130 mm Hg 12/08/2024 Weight 115 lbs 12/08/2024 BMI 20.37 kg/m2 12/08/2024 Encounters Encounter Location Date Provider Diagnosis [address] [address] 10/27/2024 Renuka Perica Atherosclerosis of [place] artery of both lower extremities, with unspecified presence of clinical manifestation I70.203 ; Xerosis of skin L85.3 ; Pain in left toe(s) M79.675 ; Skin fissure R23.4 ; Ischemic ulcer of left foot, limited to breakdown of skin L97.521 ; Lower extremity edema R60.0 ; Symptomatic varicose veins of both lower extremities I83.893 and Left foot pain M79.[address] [address] 12/08/2024 Renuka Perica Atherosclerosis of [place] artery of both lower extremities, with unspecified presence of clinical manifestation I70.203 and Xerosis of skin L85.[address] [address] 08/24/2024 Renuka Perica [address] [address] 10/27/2024 Renuka Loja Assessments Encounter Date Diagnosis (ICD Code) Assessment Notes Treatment Notes Treatment Clinical Notes Section Notes 10/27/2024 Xerosis of skin (ICD-10 - L85.3) 10/27/2024 Atherosclerosis of [place] artery of both lower extremities, with unspecified presence of clinical manifestation (ICD-10 - I70.203) Q7(A), Q8(2B), Q9(1B,2C) 12/08/2024 Xerosis of skin (ICD-10 - L85.3) 12/08/2024 Atherosclerosis of [place] artery of both lower extremities, with unspecified [...] Coverage Start Date Coverage End Date [facility] [id number] [place] [phone] [id number] Yasmeen Andrews Self - patient is the insured Medical (General) History Medical History History ICD Code Anxiety Cataracts High Blood Pressure Lung disease Reflux ( GERD) Surgical History Surgery Date(Month/Year) partial hysterectomy 1973 appendectomy 1965 Hospitalization History Reason Date(Month/Year) [facility]- short of breath 09/2024
--- OUTSIDE RECORDS SUMMARY | 2025-04-22 16:48 | XMS_ITS | Encounter Summary ---
Author Organization [employer] Address [address] [place] [address] Care Team Providers Care Supervisor Plasma Name Role Phone Louis Velazco MD Primary Care Provider [phone] Encounter Details Date Type Department Care Team (Late st Contact Info) Description 02/26/2025 Lab Requisition [facility] - Main Lab [address] [place] [address] Betito Ledezma MD [address] [place] [address] Hypokalemia; Pneumonia, unspecified organism Social History Tobacco [...] LAB CHEMISTRY METHOD 02/26/2025 11:21 AM EDT [facility] Potassium 4.0 3.5 - 5.5 mmol/L LAB CHEMISTRY METHOD 02/26/2025 11:21 AM EDT [facility] Chloride 89(L) 96 - 110 mmol/L LAB CHEMISTRY METHOD 02/26/2025 11:21 AM [facility] CO2 36(H) 21 - 32 mmol/L LAB CHEMISTRY METHOD 02/26/2025 11:21 AM [facility] Anion Gap 6 3 - 11 LAB CHEMISTRY METHOD 02/26/2025 11:21 AM [facility] Glucose 75 70 - 100 mg/dL LAB CHEMISTRY METHOD 02/26/2025 11:21 AM [facility] BUN 15 5 - 25 mg/dL LAB CHEMISTRY METHOD 02/26/2025 11:21 AM [facility] Comment:Results verified by repeat testing Creatinine 0.64 0.50 - 1.10 mg/dL LAB CHEMISTRY METHOD 02/26/2025 11:21 AM [facility] eGFR 89 >=60 mL/min/1. 73m2 LAB CHEMISTRY METHOD 02/26/2025 11:21 AM [facility] Comment:Calculation based on the Chronic Kidney Disease Epidemiology Collaboration (CKD-EPI) equation refit without adjustment for race. BUN/Creatinine Ratio 23.4 LAB CHEMISTRY METHOD 02/26/2025 11:21 AM [facility] Calcium 8.8 8.5 - 10.5 mg/dL LAB CHEMISTRY METHOD 02/26/2025 11:21 AM [facility] AST (SGOT) 40 10 - 42 unit/L LAB CHEMISTRY METHOD 02/26/2025 11:21 AM [facility] ALT (SGPT) 128(H) 10 - 60 unit/L LAB CHEMISTRY METHOD 02/26/2025 11:21 AM [facility] Comment:Results verified by repeat testing Alkaline Phosphatase 187(H) 42 - 121 unit/L LAB CHEMISTRY METHOD 02/26/2025 11:21 AM [facility] Total Protein 5.3(L) 6.0 - 8.0 g/dL LAB CHEMISTRY METHOD 02/26/2025 11:21 AM EDT [facility] Albumin 3.0(L) 3.2 - 5.0 g/dL LAB CHEMISTRY METHOD 02/26/2025 11:21 AM EDT [facility] Total Bilirubin 1.3 0.0 - 1.4 mg/dL LAB CHEMISTRY METHOD 02/26/2025 11:21 AM T [facility] Blood Venous blood specimen / Unknown Venipuncture / Unknown 02/26/2025 5:41 AM EDT 02/26/2025 9:26 AM EDT us Betito Ledezma MD LAB BLOOD ORDERABLES Final Result [facility] [address] [place] [address], [place] [phone] * (ABNORMAL) Complete blood count (02/26/2025 5:41 AM EDT) WBC 11.8(H) 4.8 - 10.8 K/mcL LAB HEMETOLOGY METHOD 02/26/2025 9:46 AM [facility] RBC 3.40(L) 3.80 - 4.80 M/mcL LAB HEMETOLOGY METHOD 02/26/2025 9:46 AM [facility] Hemoglobin 7.7(L) 11.5 - 16.0 g/dL LAB HEMETOLOGY METHOD 02/26/2025 9:46 AM [facility] Hematocrit 26.2(L) 35.0 - 47.0 % LAB HEMETOLOGY METHOD 02/26/2025 9:46 AM [facility] MCV 76.4(L) 79.0 - 98.0 FL LAB HEMETOLOGY METHOD 02/26/2025 9:46 AM [facility] MCH 22.4(L) 27.0 - 32.0 pcg LAB HEMETOLOGY METHOD 02/26/2025 9:46 AM EDT [facility] MCHC 29.4(L) 32.0 - 37.0 g/dL LAB HEMETOLOGY METHOD 02/26/2025 9:46 AM EDT [facility] RDW 22.5(H) 11.0 - 15.0 % LAB HEMETOLOGY METHOD 02/26/2025 9:46 AM EDT [facility] Platelets 134 130 - 400 K/mcL LAB HEMETOLOGY METHOD 02/26/2025 9:46 AM EDT [facility] MPV 10.2 7.0 - 11.0 FL LAB HEMETOLOGY METHOD 02/26/2025 9:46 AM EDT [facility] NRBC 0.3 <1.0 % LAB HEMETOLOGY METHOD 02/26/2025 9:46 AM EDT [facility] NRBC Absolute 0.04 <0.10 K/mcL LAB HEMETOLOGY METHOD 02/26/2025 9:46 AM EDT [facility] Blood Venous blood specimen / Unknown Venipuncture / Unknown 02/26/2025 5:41 AM EDT 02/26/2025 9:26 AM EDT us Betito Ledezma MD LAB BLOOD ORDERABLES Final Result [facility] [address] [place] [address], documented in this encounter Visit Diagnoses Diagnosis Hypokalemia Hypopotassemia Pneumonia, unspecified organism documented in this encounter Care Teams Supervisor Plasma Relationship Specialty Start Date End Date Louis Velazco MD [address] [place] [address] PCP - General Internal Medicine 11/06/24 documented as of this encounter
--- OUTSIDE RECORDS SUMMARY | 2025-04-22 16:48 | XMS_ITS | Encounter Summary ---
Author Organization [employer] Address [address] [place] [address] Care Team Providers Care Airdox Fitter Name Role Phone Louis Velazco MD Primary Care Provider [phone] Encounter Details Date Type Department Care Team (Late st Contact Info) Description 11/11/2024 Lab Requisition [facility] - Main Lab [address] [facility] [place] [address] Louis Velazco MD [address] [place] [phone] Acute systolic (congestive) heart failure (CMS/HCC [...] mmol/L LAB CHEMISTRY METHOD 11/12/2024 9:28 AM [facility] Potassium 2.9(LL) 3.5 - 5.5 mmol/L LAB CHEMISTRY METHOD 11/12/2024 9:28 AM [facility] Chloride 93(L) 96 - 110 mmol/L LAB CHEMISTRY METHOD 11/12/2024 9:28 AM [facility] CO2 33(H) 21 - 32 mmol/L LAB CHEMISTRY METHOD 11/12/2024 9:28 AM [facility] Anion Gap 7 3 - 11 LAB CHEMISTRY METHOD 11/12/2024 9:28 AM [facility] Glucose 115(H) 70 - 100 mg/dL LAB CHEMISTRY METHOD 11/12/2024 9:28 AM [facility] BUN 14 5 - 25 mg/dL LAB CHEMISTRY METHOD 11/12/2024 9:28 AM [facility] Creatinine 0.87 0.50 - 1.10 mg/dL LAB CHEMISTRY METHOD 11/12/2024 9:28 AM [facility] eGFR 67 >=60 mL/min/1. 73m2 LAB CHEMISTRY METHOD 11/12/2024 9:28 AM [facility] Comment:Calculation based on the Chronic Kidney Disease Epidemiology Collaboration (CKD-EPI) equation refit without adjustment for race. BUN/Creatinine Ratio 16.1 LAB CHEMISTRY METHOD 11/12/2024 9:28 AM [facility] Calcium 9.0 8.5 - 10.5 mg/dL LAB CHEMISTRY METHOD 11/12/2024 9:28 AM [facility] Blood Venous blood specimen / Unknown Venipuncture / Unknown 11/12/2024 6:41 AM EDT 11/12/2024 8:24 AM EDT us Louis Velazco MD LAB BLOOD ORDERABLES Final Resu lt [facility] [address] [place] [address], * (ABNORMAL) Complete blood count (11/12/2024 6:41 AM EDT) WBC 14.0(H) 4.8 - 10.8 K/mcL LAB HEMETOLOGY METHOD 11/12/2024 8:50 AM EDT [facility] RBC 4.30 3.80 - 4.80 M/mcL LAB HEMETOLOGY METHOD 11/12/2024 8:50 AM EDT [facility] Hemoglobin 11.0(L) 11.5 - 16.0 g/dL LAB HEMETOLOGY METHOD 11/12/2024 8:50 AM EDT [facility] Hematocrit 36.2 35.0 - 47.0 % LAB HEMETOLOGY METHOD 11/12/2024 8:50 AM EDT [facility] MCV 83.6 79.0 - 98.0 FL LAB HEMETOLOGY METHOD 11/12/2024 8:50 AM EDT [facility] MCH 25.4(L) 27.0 - 32.0 pcg LAB HEMETOLOGY METHOD 11/12/2024 8:50 AM EDT [facility] MCHC 30.4(L) 32.0 - 37.0 g/dL LAB HEMETOLOGY METHOD 11/12/2024 8:50 AM EDT [facility] RDW 17.2(H) 11.0 - 15.0 % LAB HEMETOLOGY METHOD 11/12/2024 8:50 AM EDT [facility] Platelets 262 130 - 400 K/mcL LAB HEMETOLOGY METHOD 11/12/2024 8:50 AM EDT [facility] MPV 10.2 7.0 - 11.0 FL LAB HEMETOLOGY METHOD 11/12/2024 8:50 AM EDT [facility] NRBC 0.0 <1.0 % LAB HEMETOLOGY METHOD 11/12/2024 8:50 AM EDT [facility] NRBC Absolute 0.00 <0.10 K/mcL LAB HEMETOLOGY METHOD 11/12/2024 8:50 AM EDT [facility] Blood Venous blood specimen / Unknown Venipuncture / Unknown 11/12/2024 6:41 AM EDT 11/12/2024 8:24 AM EDT us Louis Velazco MD LAB BLOOD ORDERABLES Final Resu lt [facility] [address] [place] [address], documented in this encounter Visit Diagnoses Diagnosis Acute systolic (congestive) heart failure (CMS/HCC V24, CMS/HCC V28) Chronic obstructive pulmonary disease with (acute) exacerbation (CMS/HCC V24, CMS/HCC V28) documented in this encounter Care Teams Airdox Fitter Relationship Specialty Start Date End Date Louis Velazco MD [address] [place] [address] PCP - General Internal Medicine 11/06/24 documented as of this encounter
--- OUTSIDE RECORDS SUMMARY | 2025-04-22 16:48 | XMS_ITS | Encounter Summary ---
Author Organization [employer] Address [address] [place] [address] Care Team Providers Care Art Installer Name Role Phone Louis Velazco MD Primary Care Provider [phone] Encounter Details Date Type Department Care Team (Late st Contact Info) Description 11/08/2024 Lab Requisition [facility] - Main Lab [address] [facility] [place] [address] Louis Velazco MD [address] [place] [phone] Acute systolic (congestive) heart failure (CMS/HCC [...] mmol/L LAB CHEMISTRY METHOD 11/09/2024 12:50 PM [facility] Potassium 3.6 3.5 - 5.5 mmol/L LAB CHEMISTRY METHOD 11/09/2024 12:50 PM [facility] Chloride 93(L) 96 - 110 mmol/L LAB CHEMISTRY METHOD 11/09/2024 12:50 PM [facility] CO2 35(H) 21 - 32 mmol/L LAB CHEMISTRY METHOD 11/09/2024 12:50 PM [facility] Anion Gap 7 3 - 11 LAB CHEMISTRY METHOD 11/09/2024 12:50 PM [facility] Glucose 73 70 - 100 mg/dL LAB CHEMISTRY METHOD 11/09/2024 12:50 PM [facility] BUN 15 5 - 25 mg/dL LAB CHEMISTRY METHOD 11/09/2024 12:50 PM [facility] Comment:Results verified by repeat testing Creatinine 0.97 0.50 - 1.10 mg/dL LAB CHEMISTRY METHOD 11/09/2024 12:50 PM [facility] eGFR 59(L) >=60 mL/min/1. 73m2 LAB CHEMISTRY METHOD 11/09/2024 12:50 PM [facility] Comment:Calculation based on the Chronic Kidney Disease Epidemiology Collaboration (CKD-EPI) equation refit without adjustment for race. BUN/Creatinine Ratio 15.5 LAB CHEMISTRY METHOD 11/09/2024 12:50 PM [facility] Calcium 9.0 8.5 - 10.5 mg/dL LAB CHEMISTRY METHOD 11/09/2024 12:50 PM [facility] AST (SGOT) 78(H) 10 - 42 unit/L LAB CHEMISTRY METHOD 11/09/2024 12:50 PM [facility] ALT (SGPT) 304(H) 10 - 60 unit/L LAB CHEMISTRY METHOD 11/09/2024 12:50 PM EDT [facility] Alkaline Phosphatase 254(H) 42 - 121 unit/L LAB CHEMISTRY METHOD 11/09/2024 12:50 PM T [facility] Total Protein 6.8 6.0 - 8.0 g/dL LAB CHEMISTRY METHOD 11/09/2024 12:50 PM T [facility] Albumin 3.8 3.2 - 5.0 g/dL LAB CHEMISTRY METHOD 11/09/2024 12:50 PM EDT [facility] Total Bilirubin 1.3 0.0 - 1.4 mg/dL LAB CHEMISTRY METHOD 11/09/2024 12:50 PM [facility] Blood Venous blood specimen / Unknown Venipuncture / Unknown 11/09/2024 6:22 AM EDT 11/09/2024 11:33 AM EDT us Louis Velazco MD LAB BLOOD ORDERABLES Final Resu lt [facility] [address] [place] [address], * (ABNORMAL) Complete blood count (11/09/2024 6:22 AM EDT) WBC 15.8(H) 4.8 - 10.8 K/mcL LAB HEMETOLOGY METHOD 11/09/2024 1:02 PM EDT [facility] RBC 4.80 3.80 - 4.80 M/mcL LAB HEMETOLOGY METHOD 11/09/2024 1:02 PM EDT [facility] Hemoglobin 12.4 11.5 - 16.0 g/dL LAB HEMETOLOGY METHOD 11/09/2024 1:02 PM T [facility] Hematocrit 42.1 35.0 - 47.0 % LAB HEMETOLOGY METHOD 11/09/2024 1:02 PM EDT [facility] MCV 87.2 79.0 - 98.0 FL LAB HEMETOLOGY METHOD 11/09/2024 1:02 PM EDT [facility] MCH 25.7(L) 27.0 - 32.0 pcg LAB HEMETOLOGY METHOD 11/09/2024 1:02 PM EDT [facility] MCHC 29.5(L) 32.0 - 37.0 g/dL LAB HEMETOLOGY METHOD 11/09/2024 1:02 PM EDT [facility] RDW 17.2(H) 11.0 - 15.0 % LAB HEMETOLOGY METHOD 11/09/2024 1:02 PM EDT [facility] Platelets 301 130 - 400 K/mcL LAB HEMETOLOGY METHOD 11/09/2024 1:02 PM EDT [facility] MPV 10.4 7.0 - 11.0 FL LAB HEMETOLOGY METHOD 11/09/2024 1:02 PM EDT [facility] NRBC 0.2 <1.0 % LAB HEMETOLOGY METHOD 11/09/2024 1:02 PM EDT [facility] NRBC Absolute 0.03 <0.10 K/mcL LAB HEMETOLOGY METHOD 11/[facility] Blood Venous blood specimen / Unknown Venipuncture / Unknown 11/09/2024 6:22 AM EDT 11/09/2024 11:33 AM EDT us Louis Velazco MD LAB BLOOD ORDERABLES Final Resu lt [facility] [address] [place] [address], documented in this encounter Visit Diagnoses Diagnosis Acute systolic (congestive) heart failure (CMS/HCC V24, CMS/HCC V28) Chronic obstructive pulmonary disease with (acute) exacerbation (CMS/HCC V24, CMS/HCC V28) documented in this encounter Care Teams Art Installer Relationship Specialty Start Date End Date Louis Velazco MD [address] [place] [address] PCP - General Internal Medicine 11/06/24 documented as of this encounter
--- OUTSIDE RECORDS SUMMARY | 2025-04-22 16:48 | XMS_ITS | Encounter Summary ---
Author Organization [employer] Address [address] [place] [address] Care Team Providers Care Family Consumer Science Teacher Name Role Phone Louis Velazco MD Primary Care Provider [phone] Encounter Details Date Type Department Care Team (Late st Contact Info) Description 03/05/2025 Lab Requisition [facility] - Main Lab [address] [place] [address] Betito Ledezma MD [address] [place] [address] Pneumonia, unspecified organism; Hyperkalemia Social History Tobacco [...] LAB CHEMISTRY METHOD 03/08/2025 12:39 PM EDT [facility] Potassium 3.5 3.5 - 5.5 mmol/L LAB CHEMISTRY METHOD 03/08/2025 12:39 PM EDT [facility] Chloride 88(L) 96 - 110 mmol/L LAB CHEMISTRY METHOD 03/08/2025 12:39 PM [facility] CO2 35(H) 21 - 32 mmol/L LAB CHEMISTRY METHOD 03/08/2025 12:39 PM [facility] Anion Gap 7 3 - 11 LAB CHEMISTRY METHOD 03/08/2025 12:39 PM [facility] Glucose 150(H) 70 - 100 mg/dL LAB CHEMISTRY METHOD 03/08/2025 12:39 PM [facility] BUN 17 5 - 25 mg/dL LAB CHEMISTRY METHOD 03/08/2025 12:39 PM [facility] Creatinine 0.88 0.50 - 1.10 mg/dL LAB CHEMISTRY METHOD 03/08/2025 12:39 PM [facility] eGFR 67 >=60 mL/min/1. 73m2 LAB CHEMISTRY METHOD 03/08/2025 12:39 PM [facility] Comment:Calculation based on the Chronic Kidney Disease Epidemiology Collaboration (CKD-EPI) equation refit without adjustment for race. BUN/Creatinine Ratio 19.3 LAB CHEMISTRY METHOD 03/08/2025 12:39 PM [facility] Calcium 9.0 8.5 - 10.5 mg/dL LAB CHEMISTRY METHOD 03/08/2025 12:39 PM [facility] Blood Venous blood specimen / Unknown Venipuncture / Unknown 03/08/2025 9:19 AM EDT 03/08/2025 10:44 AM EDT us Betito Ledezma MD LAB BLOOD ORDERABLES Final Result [facility] [address] [place] [address], * (ABNORMAL) Complete blood count (03/08/2025 9:19 AM EDT) WBC 6.8 4.8 - 10.8 K/mcL LAB HEMETOLOGY METHOD 03/08/2025 12:26 PM [facility] RBC 3.70(L) 3.80 - 4.80 M/mcL LAB HEMETOLOGY METHOD 03/08/2025 12:26 PM [facility] Hemoglobin 8.2(L) 11.5 - 16.0 g/dL LAB HEMETOLOGY METHOD 03/08/2025 12:26 PM [facility] Hematocrit 28.9(L) 35.0 - 47.0 % LAB HEMETOLOGY METHOD 03/08/2025 12:26 PM [facility] MCV 78.1(L) 79.0 - 98.0 FL LAB HEMETOLOGY METHOD 03/08/2025 12:26 PM [facility] MCH 22.2(L) 27.0 - 32.0 pcg LAB HEMETOLOGY METHOD 03/08/2025 12:26 PM [facility] MCHC 28.4(L) 32.0 - 37.0 g/dL LAB HEMETOLOGY METHOD 03/08/2025 12:26 PM [facility] RDW 22.0(H) 11.0 - 15.0 % LAB HEMETOLOGY METHOD 03/08/2025 12:26 PM [facility] Platelets 262 130 - 400 K/mcL LAB HEMETOLOGY METHOD 03/08/2025 12:26 PM [facility] MPV 10.5 7.0 - 11.0 FL LAB HEMETOLOGY METHOD 03/08/2025 12:26 PM [facility] NRBC 0.0 <1.0 % LAB HEMETOLOGY METHOD 03/08/2025 12:26 PM [facility] NRBC Absolute 0.00 <0.10 K/mcL LAB HEMETOLOGY METHOD 03/08/2025 12:26 PM EDT [facility] Blood Venous blood specimen / Unknown Venipuncture / Unknown 03/08/2025 9:19 AM EDT 03/08/2025 10:44 AM EDT us Betito Ledezma MD LAB BLOOD ORDERABLES Final Result [facility] [address] [place] [address], documented in this encounter Visit Diagnoses Diagnosis Pneumonia, unspecified organism Hyperkalemia Hyperpotassemia documented in this encounter Care Teams Family Consumer Science Teacher Relationship Specialty Start Date End Date Louis Velazco MD [address] [place] [address] PCP - General Internal Medicine 11/06/24 documented as of this encounter
--- OUTSIDE RECORDS SUMMARY | 2025-04-22 16:49 | XMS_ITS | Encounter Summary ---
Author Organization [employer] Address [address] [place] [address] Care Team Providers Care Stock Crane Operator Name Role Phone Louis Velazco MD Primary Care Provider [phone] Encounter Details Date Type Department Care Team (Late st Contact Info) Description 11/14/2024 Lab Requisition [facility] - Main Lab [address] [facility] [place] [address] Louis Velazco MD [address] [place] [phone] Acute systolic (congestive) heart failure (CMS/HCC [...] mmol/L LAB CHEMISTRY METHOD 11/16/2024 3:26 PM [facility] Potassium 3.4(L) 3.5 - 5.5 mmol/L LAB CHEMISTRY METHOD 11/16/2024 3:26 PM [facility] Chloride 96 96 - 110 mmol/L LAB CHEMISTRY METHOD 11/16/2024 3:26 PM [facility] CO2 34(H) 21 - 32 mmol/L LAB CHEMISTRY METHOD 11/16/2024 3:26 PM [facility] Anion Gap 10 3 - 11 LAB CHEMISTRY METHOD 11/16/2024 3:26 PM [facility] Glucose 70 70 - 100 mg/dL LAB CHEMISTRY METHOD 11/16/2024 3:26 PM [facility] BUN 9 5 - 25 mg/dL LAB CHEMISTRY METHOD 11/16/2024 3:26 PM [facility] Creatinine 0.91 0.50 - 1.10 mg/dL LAB CHEMISTRY METHOD 11/16/2024 3:26 PM [facility] eGFR 64 >=60 mL/min/1. 73m2 LAB CHEMISTRY METHOD 11/16/2024 3:26 PM [facility] Comment:Calculation based on the Chronic Kidney Disease Epidemiology Collaboration (CKD-EPI) equation refit without adjustment for race. BUN/Creatinine Ratio 9.9 LAB CHEMISTRY METHOD 11/16/2024 3:26 PM [facility] Calcium 9.0 8.5 - 10.5 mg/dL LAB CHEMISTRY METHOD 11/16/2024 3:26 PM [facility] AST (SGOT) 28 10 - 42 unit/L LAB CHEMISTRY METHOD 11/16/2024 3:26 PM [facility] ALT (SGPT) 53 10 - 60 unit/L LAB CHEMISTRY METHOD 11/16/2024 3:26 PM EDT [facility] Comment:Results verified by repeat testing Alkaline Phosphatase 240(H) 42 - 121 unit/L LAB CHEMISTRY METHOD 11/16/2024 3:26 PM EDT [facility] Total Protein 6.0 6.0 - 8.0 g/dL LAB CHEMISTRY METHOD 11/16/2024 3:26 PM EDT [facility] Albumin 3.0(L) 3.2 - 5.0 g/dL LAB CHEMISTRY METHOD 11/16/2024 3:26 PM EDT [facility] Total Bilirubin 0.8 0.0 - 1.4 mg/dL LAB CHEMISTRY METHOD 11/16/2024 3:26 PM EDT [facility] Blood Venous blood specimen / Unknown Venipuncture / Unknown 11/16/2024 5:42 AM EDT 11/16/2024 11:44 AM EDT us Louis Velazco MD LAB BLOOD ORDERABLES Final Resu lt [facility] [address] [place] [address], [place] [phone] * (ABNORMAL) Complete blood count (11/16/2024 5:42 AM EDT) WBC 11.3(H) 4.8 - 10.8 K/mcL LAB HEMETOLOGY METHOD 11/16/2024 3:18 PM EDT [facility] RBC 4.20 3.80 - 4.80 M/mcL LAB HEMETOLOGY METHOD 11/16/2024 3:18 PM EDT [facility] Hemoglobin 10.3(L) 11.5 - 16.0 g/dL LAB HEMETOLOGY METHOD 11/16/2024 3:18 PM EDT [facility] Hematocrit 37.0 35.0 - 47.0 % LAB HEMETOLOGY METHOD 11/16/2024 3:18 PM EDT [facility] MCV 87.7 79.0 - 98.0 FL LAB HEMETOLOGY METHOD 11/16/2024 3:18 PM EDT [facility] MCH 24.4(L) 27.0 - 32.0 pcg LAB HEMETOLOGY METHOD 11/16/2024 3:18 PM EDT [facility] MCHC 27.8(L) 32.0 - 37.0 g/dL LAB HEMETOLOGY METHOD 11/16/2024 3:18 PM EDT [facility] RDW 18.2(H) 11.0 - 15.0 % LAB HEMETOLOGY METHOD 11/16/2024 3:18 PM EDT [facility] Platelets 341 130 - 400 K/mcL LAB HEMETOLOGY METHOD 11/16/2024 3:18 PM EDT [facility] MPV 10.0 7.0 - 11.0 FL LAB HEMETOLOGY METHOD 11/16/2024 3:18 PM EDT [facility] NRBC 0.0 <1.0 % LAB HEMETOLOGY METHOD 11/16/2024 3:18 PM EDT [facility] NRBC Absolute 0.00 <0.10 K/mcL LAB HEMETOLOGY METHOD 11/16/2024 3:18 PM EDT [facility] Blood Venous blood specimen / Unknown Venipuncture / Unknown 11/16/2024 5:42 AM EDT 11/16/2024 11:44 AM EDT us Louis Velazco MD LAB BLOOD ORDERABLES Final Resu lt [facility] [address] [place] [address], [place] [phone] documented in this encounter Visit Diagnoses Diagnosis Acute systolic (congestive) heart failure (CMS/HCC V24, CMS/HCC V28) Chronic obstructive pulmonary disease with (acute) exacerbation (CMS/HCC V24, CMS/HCC V28) documented in this encounter Care Teams Stock Crane Operator Relationship Specialty Start Date End Date Louis Velazco MD [address] [place] [address] PCP - General Internal Medicine 11/06/24 documented as of this encounter
--- OUTSIDE RECORDS SUMMARY | 2025-04-22 16:49 | XMS_ITS | Encounter Summary ---
Author Organization [employer] Address [address] [place] [address] Care Team Providers Care Adoption Specialist Name Role Phone Louis Velazco MD Primary Care Provider [phone] Encounter Details Date Type Department Care Team (Late st Contact Info) Description 02/17/2025 Lab Requisition [facility] - Main Lab 299 [facility] [place] [address] Mary Barry MD [address] [address] Chronic respiratory failure with hypoxia [...] LAB HEMETOLOGY METHOD 02/17/2025 9:24 AM EDT [facility] Platelet Morphology - WAM See Note(A) Normal LAB HEMETOLOGY METHOD 02/17/2025 9:24 AM EDT [facility] Comment:PLT: Normal Polychromasia Present Present( A) (none) LAB HEMETOLOGY METHOD 02/17/2025 9:24 AM EDT [facility] Blood Venous blood specimen / Unknown Venipuncture / Unknown 02/17/2025 5:45 AM EDT 02/17/2025 8:29 AM EDT Mary Barry MD LAB BLOOD ORDERABLES Fin al Result [facility] [address] [place] [address], * (ABNORMAL) CBC auto differential (02/17/2025 5:45 AM EDT) Pathologist [facility] WBC 15.0(H) 4.8 - 10.8 K/mcL LAB HEMETOLOGY METHOD 02/17/2025 9:24 AM EDT [facility] RBC 4.10 3.80 - 4.80 M/mcL LAB HEMETOLOGY METHOD 02/17/2025 9:24 AM EDT [facility] Hemoglobin 9.2(L) 11.5 - 16.0 g/dL LAB HEMETOLOGY METHOD 02/17/2025 9:24 AM EDT [facility] Hematocrit 32.9(L) 35.0 - 47.0 % LAB HEMETOLOGY METHOD 02/17/2025 9:24 AM EDT [facility] MCV 80.0 79.0 - 98.0 FL LAB HEMETOLOGY METHOD 02/17/2025 9:24 AM [facility] MCH 22.4(L) 27.0 - 32.0 pcg LAB HEMETOLOGY METHOD 02/17/2025 9:24 AM [facility] MCHC 28.0(L) 32.0 - 37.0 g/dL LAB HEMETOLOGY METHOD 02/17/2025 9:24 AM [facility] RDW 21.8(H) 11.0 - 15.0 % LAB HEMETOLOGY METHOD 02/17/2025 9:24 AM [facility] Platelets 216 130 - 400 K/mcL LAB HEMETOLOGY METHOD 02/17/2025 9:24 AM [facility] MPV 10.6 7.0 - 11.0 FL LAB HEMETOLOGY METHOD 02/17/2025 9:24 AM [facility] NRBC 3.4(H) <1.0 % LAB HEMETOLOGY METHOD 02/17/2025 9:24 AM [facility] NRBC Absolute 0.51(H) <0.10 K/mcL LAB HEMETOLOGY METHOD 02/17/2025 9:24 AM [facility] Neutrophils Relative 83.1 % LAB HEMETOLOGY METHOD 02/17/2025 9:24 AM [facility] Comment:This is an appended report. These results have been appended to a previously preliminary verified report. Lymphocytes Relative 4.6 % LAB HEMETOLOGY METHOD 02/17/2025 9:24 AM [facility] Comment:This is an appended report. These results have been appended to a previously preliminary verified report. Monocytes Relative 11.0 % LAB HEMETOLOGY METHOD 02/17/2025 9:24 AM [facility] Comment:This is an appended report. These results have been appended to a previously preliminary verified report. Eosinophils Relative 0.0 % LAB HEMETOLOGY METHOD 02/17/2025 9:24 AM [facility] Comment:This is an appended report. These results have been appended to a previously preliminary verified report. Basophils Relative 0.1 % LAB HEMETOLOGY METHOD 02/17/2025 9:24 AM [facility] Comment:This is an appended report. These results have been appended to a previously preliminary verified report. Immature Granulocytes Relative 1.2 % LAB HEMETOLOGY METHOD 02/17/2025 9:24 AM [facility] Comment:This is an appended report. These results have been appended to a previously preliminary verified report. Neutrophils Absolute 12.43(H) 1.50 - 7.00 K/mcL LAB HEMETOLOGY METHOD 02/17/2025 9:24 AM [facility] Comment:This is an appended report. These results have been appended to a previously preliminary verified report. Lymphocytes Absolute 0.69(L) 1.00 - 5.00 K/mcL LAB HEMETOLOGY METHOD 02/17/2025 9:24 AM [facility] Comment:This is an appended report. These results have been appended to a previously preliminary verified report. Monocytes Absolute 1.65(H) 0.20 - 1.00 K/mcL LAB HEMETOLOGY METHOD 02/17/2025 9:24 AM [facility] Comment:This is an appended report. These results have been appended to a previously preliminary verified report. Eosinophils Absolute 0.00 0.00 - 0.50 K/mcL LAB HEMETOLOGY METHOD 02/17/2025 9:24 AM [facility] Comment:This is an appended report. These results have been appended to a previously preliminary verified report. Basophils Absolute 0.02 0.00 - 0.20 K/mcL LAB HEMETOLOGY METHOD 02/17/2025 9:24 AM [facility] Comment:This is an appended report. These results have been appended to a previously preliminary verified report. Immature Granulocytes Absolute 0.18(H) 0.00 - 0.03 K/mcL LAB HEMETOLOGY METHOD 02/17/2025 9:24 AM EDT [facility] Comment:This is an appended report. These results have been appended to a previously preliminary verified report. Blood Venous blood specimen / Unknown Venipuncture / Unknown 02/17/2025 5:45 AM EDT 02/17/2025 8:29 AM EDT us Mary Barry MD LAB BLOOD ORDERABLES Fin al Result [facility] [address] [place] [address], [place] [phone] * (ABNORMAL) Basic metabolic panel (02/17/2025 5:45 AM EDT) Sodium 129(L) 133 - 145 mmol/L LAB CHEMISTRY METHOD 02/17/2025 12:07 PM [facility] Potassium 6.3(HH) 3.5 - 5.5 mmol/L LAB CHEMISTRY METHOD 02/17/2025 12:07 PM [facility] Chloride 92(L) 96 - 110 mmol/L LAB CHEMISTRY METHOD 02/17/2025 12:07 PM [facility] CO2 22 21 - 32 mmol/L LAB CHEMISTRY METHOD 02/17/2025 12:07 PM [facility] Anion Gap 15(H) 3 - 11 LAB CHEMISTRY METHOD 02/17/2025 12:07 PM [facility] Glucose 68(L) 70 - 100 mg/dL LAB CHEMISTRY METHOD 02/17/2025 12:07 PM [facility] BUN 60(H) 5 - 25 mg/dL LAB CHEMISTRY METHOD 02/17/2025 12:07 PM EDT [facility] Creatinine 1.91(H) 0.50 - 1.10 mg/dL LAB CHEMISTRY METHOD 02/17/2025 12:07 PM EDT [facility] eGFR 26(L) >=60 mL/min/1. 73m2 LAB CHEMISTRY METHOD 02/17/2025 12:07 PM EDT [facility] Comment:Calculation based on the Chronic Kidney Disease Epidemiology Collaboration (CKD-EPI) equation refit without adjustment for race. BUN/Creatinine Ratio 31.4 LAB CHEMISTRY METHOD 02/17/2025 12:07 PM EDT [facility] Calcium 9.4 8.5 - 10.5 mg/dL LAB CHEMISTRY METHOD 02/17/2025 12:07 PM EDT [facility] Blood Venous blood specimen / Unknown Venipuncture / Unknown 02/17/2025 5:45 AM EDT 02/17/2025 8:29 AM EDT us Mary Barry MD LAB BLOOD ORDERABLES Fin al Result [facility] [address] [place] [address], documented in this encounter Visit Diagnoses Diagnosis Chronic respiratory failure with hypoxia (CMS/HCC V24, CMS/HCC V28) documented in this encounter Care Teams Adoption Specialist Relationship Specialty Start Date End Date Louis Velazco MD [address] [place] [address] PCP - General Internal Medicine 11/06/24 documented as of this encounter
--- OUTSIDE RECORDS SUMMARY | 2025-04-22 16:49 | XMS_ITS | Encounter Summary ---
Author Organization [employer] Address [address] [place] [address] Care Team Providers Care Toxics Program Officer Name Role Phone Louis Velazco MD Primary Care Provider [phone] Encounter Details Date Type Department Care Team (Late st Contact Info) Description 11/18/2024 Lab Requisition [facility] - Main Lab [address] [facility] [place] [address] Louis Velazco MD [address] [place] [phone] Acute systolic (congestive) heart failure (CMS/HCC [...] mmol/L LAB CHEMISTRY METHOD 11/19/2024 10:14 AM [facility] Potassium 3.3(L) 3.5 - 5.5 mmol/L LAB CHEMISTRY METHOD 11/19/2024 10:14 AM [facility] Chloride 95(L) 96 - 110 mmol/L LAB CHEMISTRY METHOD 11/19/2024 10:14 AM [facility] CO2 34(H) 21 - 32 mmol/L LAB CHEMISTRY METHOD 11/19/2024 10:14 AM [facility] Anion Gap 8 3 - 11 LAB CHEMISTRY METHOD 11/19/2024 10:14 AM [facility] Glucose 80 70 - 100 mg/dL LAB CHEMISTRY METHOD 11/19/2024 10:14 AM [facility] BUN 11 5 - 25 mg/dL LAB CHEMISTRY METHOD 11/19/2024 10:14 AM [facility] Creatinine 0.87 0.50 - 1.10 mg/dL LAB CHEMISTRY METHOD 11/19/2024 10:14 AM [facility] eGFR 67 >=60 mL/min/1. 73m2 LAB CHEMISTRY METHOD 11/19/2024 10:14 AM [facility] Comment:Calculation based on the Chronic Kidney Disease Epidemiology Collaboration (CKD-EPI) equation refit without adjustment for race. BUN/Creatinine Ratio 12.6 LAB CHEMISTRY METHOD 11/19/2024 10:14 AM [facility] Calcium 8.7 8.5 - 10.5 mg/dL LAB CHEMISTRY METHOD 11/19/2024 10:14 AM [facility] Blood Venous blood specimen / Unknown Venipuncture / Unknown 11/19/2024 5:36 AM EDT 11/19/2024 9:19 AM EDT us Louis Sondhi MD LAB BLOOD ORDERABLES Final Resu lt [facility] [address] [place] [address], * (ABNORMAL) Complete blood count (11/19/2024 5:36 AM EDT) WBC 9.1 4.8 - 10.8 K/mcL LAB HEMETOLOGY METHOD 11/19/2024 9:50 AM EDT [facility] RBC 3.70(L) 3.80 - 4.80 M/mcL LAB HEMETOLOGY METHOD 11/19/2024 9:50 AM EDT [facility] Hemoglobin 9.4(L) 11.5 - 16.0 g/dL LAB HEMETOLOGY METHOD 11/19/2024 9:50 AM EDT [facility] Hematocrit 31.5(L) 35.0 - 47.0 % LAB HEMETOLOGY METHOD 11/19/2024 9:50 AM EDT [facility] MCV 85.8 79.0 - 98.0 FL LAB HEMETOLOGY METHOD 11/19/2024 9:50 AM EDT [facility] MCH 25.6(L) 27.0 - 32.0 pcg LAB HEMETOLOGY METHOD 11/19/2024 9:50 AM EDT [facility] MCHC 29.8(L) 32.0 - 37.0 g/dL LAB HEMETOLOGY METHOD 11/19/2024 9:50 AM EDT [facility] RDW 17.8(H) 11.0 - 15.0 % LAB HEMETOLOGY METHOD 11/19/2024 9:50 AM EDT [facility] Platelets 304 130 - 400 K/mcL LAB HEMETOLOGY METHOD 11/19/2024 9:50 AM EDT [facility] MPV 9.6 7.0 - 11.0 FL LAB HEMETOLOGY METHOD 11/19/2024 9:50 AM EDT [facility] NRBC 0.0 <1.0 % LAB HEMETOLOGY METHOD 11/19/2024 9:50 AM EDT [facility] NRBC Absolute 0.00 <0.10 K/mcL LAB HEMETOLOGY METHOD 11/19/2024 9:50 AM EDT [facility] Blood Venous blood specimen / Unknown Venipuncture / Unknown 11/19/2024 5:36 AM EDT 11/19/2024 9:19 AM EDT us Louis Velazco MD LAB BLOOD ORDERABLES Final Resu lt [facility] [address] [place] [address], documented in this encounter Visit Diagnoses Diagnosis Acute systolic (congestive) heart failure (CMS/HCC V24, CMS/HCC V28) Chronic obstructive pulmonary disease with (acute) exacerbation (CMS/HCC V24, CMS/HCC V28) documented in this encounter Care Teams Toxics Program Officer Relationship Specialty Start Date End Date Louis Velazco MD [address] [place] [address] PCP - General Internal Medicine 11/06/24 documented as of this encounter
--- OUTSIDE RECORDS SUMMARY | 2025-04-22 16:49 | XMS_ITS | Encounter Summary ---
Author Organization [employer] Address [address] [place] [address] Care Team Providers Care Coil Wrapper Name Role Phone Louis Velazco MD Primary Care Provider [phone] Encounter Details Date Type Department Care Team (Late st Contact Info) Description 03/14/2025 Lab Requisition [facility] - Main Lab [address] [place] [address] Betito Ledezma MD [address] [place] [address] Pneumonia, unspecified organism; Hyperkalemia Social History Tobacco [...] AM EDT) WBC 7.3 4.8 - 10.8 K/[facility] LAB HEMETOLOGY METHOD 03/15/2025 11:52 AM EDT [facility] RBC 3.80 3.80 - 4.80 M/mcL LAB HEMETOLOGY METHOD 03/15/2025 11:52 AM EDT [facility] Hemoglobin 8.5(L) 11.5 - 16.0 g/dL LAB HEMETOLOGY METHOD 03/15/2025 11:52 AM [facility] Hematocrit 30.8(L) 35.0 - 47.0 % LAB HEMETOLOGY METHOD 03/15/2025 11:52 AM [facility] MCV 81.3 79.0 - 98.0 FL LAB HEMETOLOGY METHOD 03/15/2025 11:52 AM [facility] MCH 22.4(L) 27.0 - 32.0 pcg LAB HEMETOLOGY METHOD 03/15/2025 11:52 AM [facility] MCHC 27.6(L) 32.0 - 37.0 g/dL LAB HEMETOLOGY METHOD 03/15/2025 11:52 AM [facility] RDW 24.7(H) 11.0 - 15.0 % LAB HEMETOLOGY METHOD 03/15/2025 11:52 AM [facility] Platelets 244 130 - 400 K/mcL LAB HEMETOLOGY METHOD 03/15/2025 11:52 AM [facility] MPV 9.9 7.0 - 11.0 FL LAB HEMETOLOGY METHOD 03/15/2025 11:52 AM [facility] NRBC 0.0 <1.0 % LAB HEMETOLOGY METHOD 03/15/2025 11:52 AM [facility] NRBC Absolute 0.00 <0.10 K/mcL LAB HEMETOLOGY METHOD 03/15/2025 11:52 AM [facility] Blood Venous blood specimen / Unknown Venipuncture / Unknown 03/15/2025 8:26 AM EDT 03/15/2025 10:59 AM EDT us Betito Ledezma MD LAB BLOOD ORDERABLES Final Result [facility] [address] [place] [address], * (ABNORMAL) Basic metabolic panel (03/15/2025 8:26 AM EDT) Sodium 137 133 - 145 mmol/L LAB CHEMISTRY METHOD 03/15/2025 11:59 AM [facility] Potassium 3.4(L) 3.5 - 5.5 mmol/L LAB CHEMISTRY METHOD 03/15/2025 11:59 AM [facility] Chloride 95(L) 96 - 110 mmol/L LAB CHEMISTRY METHOD 03/15/2025 11:59 AM [facility] CO2 33(H) 21 - 32 mmol/L LAB CHEMISTRY METHOD 03/15/2025 11:59 AM [facility] Anion Gap 9 3 - 11 LAB CHEMISTRY METHOD 03/15/2025 11:59 AM [facility] Glucose 97 70 - 100 mg/dL LAB CHEMISTRY METHOD 03/15/2025 11:59 AM [facility] BUN 14 5 - 25 mg/dL LAB CHEMISTRY METHOD 03/15/2025 11:59 AM [facility] Creatinine 1.02 0.50 - 1.10 mg/dL LAB CHEMISTRY METHOD 03/15/2025 11:59 AM [facility] eGFR 56(L) >=60 mL/min/1. 73m2 LAB CHEMISTRY METHOD 03/15/2025 11:59 AM [facility] Comment:Calculation based on the Chronic Kidney Disease Epidemiology Collaboration (CKD-EPI) equation refit without adjustment for race. BUN/Creatinine Ratio 13.7 LAB CHEMISTRY METHOD 03/15/2025 11:59 AM [facility] Calcium 9.1 8.5 - 10.5 mg/dL LAB CHEMISTRY METHOD 03/15/2025 11:59 AM EDT [facility] Blood Venous blood specimen / Unknown Venipuncture / Unknown 03/15/2025 8:26 AM EDT 03/15/2025 10:59 AM EDT Betito Ledezma MD LAB BLOOD ORDERABLES Final Result [facility] [address] [place] [address], documented in this encounter Visit Diagnoses Diagnosis Pneumonia, unspecified organism Hyperkalemia Hyperpotassemia documented in this encounter Care Teams Coil Wrapper Relationship Specialty Start Date End Date Louis Velazco MD [address] [place] [address] PCP - General Internal Medicine 11/06/24 documented as of this encounter
--- OUTSIDE RECORDS SUMMARY | 2025-04-22 16:49 | XMS_ITS | Encounter Summary ---
Author Organization [employer] Address [address] [place] [address] Care Team Providers Care Blood Bank Custodian Name Role Phone Louis Velazco MD Primary Care Provider [phone] Encounter Details Date Type Department Care Team (Late st Contact Info) Description 11/21/2024 Lab Requisition [facility] - Main Lab [address] [facility] [address] [place] [address] Louis Velazco MD [address] [place] [address] Acute systolic (congestive) heart failure [...] V28) documented in this encounter Care Teams Blood Bank Custodian Relationship Specialty Start Date End Date Louis Velazco MD [address] [place] [address] PCP - General Internal Medicine 11/06/24 documented as of this encounter
--- OUTSIDE RECORDS SUMMARY | 2025-04-22 16:49 | XMS_ITS | Encounter Summary ---
Author Organization [employer] Address [address] [place] [address] Care Team Providers Care Loss Prevention Associate Name Role Phone Louis Velazco MD Primary Care Provider [phone] Encounter Details Date Type Department Care Team (Late st Contact Info) Description 03/20/2025 Lab Requisition [facility] - Main Lab [address] [facility] [place] [address] Betito Ledezma MD [address] [place] [address] Pneumonia, unspecified organism; Hyperkalemia Social History Tobacco [...] Hyperpotassemia documented in this encounter Care Teams Loss Prevention Associate Relationship Specialty Start Date End Date Louis Velazco MD [address] [place] [id number] PCP - General Internal Medicine 11/06/24 documented as of this encounter
--- OUTSIDE RECORDS SUMMARY | 2025-04-22 16:49 | XMS_ITS | Encounter Summary ---
Author Organization [employer] Address [address] [place] [address] Care Team Providers Care Territory Sales Representative Name Role Phone Louis Velazco MD Primary Care Provider [phone] Encounter Details Date Type Department Care Team (Late st Contact Info) Description 02/19/2025 Lab Requisition [facility] - Main Lab [address] [facility] [place] [address] Mary Barry MD [address] [address] Chronic obstructive pulmonary disease, unspecified (CMS/HCC V24, [...] unspecified documented in this encounter Care Teams Territory Sales Representative Relationship Specialty Start Date End Date Louis Velazco MD [address] [place] [id number] PCP - General Internal Medicine 11/06/24 documented as of this encounter
--- OUTSIDE RECORDS SUMMARY | 2025-04-22 16:49 | XMS_ITS | Encounter Summary ---
Author Organization [employer] Address [address] [place] [address] Care Team Providers Care Meat Stock Clerk Name Role Phone Louis Velazco MD Primary Care Provider [phone] Encounter Details Date Type Department Care Team (Late st Contact Info) Description 02/12/2025 Lab Requisition [facility] - Main Lab 299 [facility] [place] [address] Mary Barry MD [address] [phone] Chronic obstructive pulmonary disease, unspecified (CMS/HCC V24, [...] LAB CHEMISTRY METHOD 02/12/2025 9:40 AM EDT [facility] Potassium 4.4 3.5 - 5.5 mmol/L LAB CHEMISTRY METHOD 02/12/2025 9:40 AM [facility] LAB Chloride 94(L) 96 - 110 mmol/L LAB CHEMISTRY METHOD 02/12/2025 9:40 AM [facility] CO2 32 21 - 32 mmol/L LAB CHEMISTRY METHOD 02/12/2025 9:40 AM [facility] LAB Anion Gap 8 3 - 11 LAB CHEMISTRY METHOD 02/12/2025 9:40 AM [facility] LAB Glucose 90 70 - 100 mg/dL LAB CHEMISTRY METHOD 02/12/2025 9:40 AM [facility] BUN 36(H) 5 - 25 mg/dL LAB CHEMISTRY METHOD 02/12/2025 9:40 AM [facility] LAB Creatinine 1.26(H) 0.50 - 1.10 mg/dL LAB CHEMISTRY METHOD 02/12/2025 9:40 AM [facility] LAB eGFR 43(L) >=60 mL/min/1. 73m2 LAB CHEMISTRY METHOD 02/12/2025 9:40 AM [facility] LAB Comment:Calculation based on the Chronic Kidney Disease Epidemiology Collaboration (CKD-EPI) equation refit without adjustment for race. BUN/Creatinine Ratio 28.6 LAB CHEMISTRY METHOD 02/12/2025 9:40 AM [facility] Calcium 9.1 8.5 - 10.5 mg/dL LAB CHEMISTRY METHOD 02/12/2025 9:40 AM [facility] Blood Venous blood specimen / Unknown Venipuncture / Unknown 02/12/2025 6:31 AM EDT 02/12/2025 8:39 AM EDT us Mary Barry MD LAB BLOOD ORDERABLES Fin al Result [facility] [address] [place] [address], * (ABNORMAL) Complete blood count (02/12/2025 6:31 AM EDT) [facility] WBC 9.2 4.8 - 10.8 K/mcL LAB HEMETOLOGY METHOD 02/12/2025 9:13 AM [facility] RBC 3.70(L) 3.80 - 4.80 M/mcL LAB HEMETOLOGY METHOD 02/12/2025 9:13 AM [facility] Hemoglobin 8.2(L) 11.5 - 16.0 g/dL LAB HEMETOLOGY METHOD 02/12/2025 9:13 AM [facility] Hematocrit 28.9(L) 35.0 - 47.0 % LAB HEMETOLOGY METHOD 02/12/2025 9:13 AM [facility] MCV 77.7(L) 79.0 - 98.0 FL LAB HEMETOLOGY METHOD 02/12/2025 9:13 AM [facility] LAB MCH 22.0(L) 27.0 - 32.0 pcg LAB HEMETOLOGY METHOD 02/12/2025 9:13 AM [facility] LAB MCHC 28.4(L) 32.0 - 37.0 g/dL LAB HEMETOLOGY METHOD 02/12/2025 9:13 AM [facility] LAB RDW 18.1(H) 11.0 - 15.0 % LAB HEMETOLOGY METHOD 02/12/2025 9:13 AM [facility] LAB Platelets 236 130 - 400 K/mcL LAB HEMETOLOGY METHOD 02/12/2025 9:13 AM [facility] LAB MPV 9.9 7.0 - 11.0 FL LAB HEMETOLOGY METHOD 02/12/2025 9:13 AM [facility] NRBC 1.2(H) <1.0 % LAB HEMETOLOGY METHOD 02/12/2025 9:13 AM EDT [facility] NRBC Absolute 0.11(H) <0.10 K/mcL LAB HEMETOLOGY METHOD 02/12/2025 9:13 AM EDT [facility] Blood Venous blood specimen / Unknown Venipuncture / Unknown 02/12/2025 6:31 AM EDT 02/12/2025 8:39 AM EDT us Mary Barry MD LAB BLOOD ORDERABLES Fin al Result [facility]) [facility] [address] [place] [address], documented in this encounter Visit Diagnoses Diagnosis Chronic obstructive pulmonary disease, unspecified (CMS/HCC V24, CMS/HCC V28) Anemia, unspecified documented in this encounter Care Teams Meat Stock Clerk Relationship Specialty Start Date End Date Louis Velazco MD [address] [place] [address] PCP - General Internal Medicine 11/06/24 documented as of this encounter
--- OUTSIDE RECORDS SUMMARY | 2025-04-22 16:49 | XMS_ITS | Encounter Summary ---
Author Organization [employer] Address [address] [place] [address] Care Team Providers Care Armored Car Guard And Driver Name Role Phone Louis Velazco MD Primary Care Provider [phone] Encounter Details Date Type Department Care Team (Late st Contact Info) Description 02/26/2025 Lab Requisition [facility] - Main Lab 299 [facility] [place] [address] Mary Barry MD [address] [address] Chronic obstructive pulmonary disease, unspecified (CMS/HCC V24, [...] unspecified documented in this encounter Care Teams Armored Car Guard And Driver Relationship Specialty Start Date End Date Louis Velazco MD [address] [place] [id number] PCP - General Internal Medicine 11/06/24 documented as of this encounter
--- OUTSIDE RECORDS SUMMARY | 2025-04-22 16:49 | XMS_ITS | Encounter Summary ---
Author Organization [employer] Address [address] [place] [address] Care Team Providers Care Double Cut Sawyer Name Role Phone Louis Velazco MD Primary Care Provider [phone] Encounter Details Date Type Department Care Team (Late st Contact Info) Description 03/11/2025 Lab Requisition [facility] - Main Lab 299 [facility] [place] [address] Betito Ledezma MD [address] [place] [address] Essential (primary) hypertension; Anemia, unspecified; Respiratory failure, [...] natriuretic peptide (03/12/2025 6:15 AM EDT) Pathologist [facility] BNP 1,116(H) <=100 pcg/mL LAB CHEMISTRY METHOD 03/12/2025 12:[address] [facility] Blood Venous blood specimen / Unknown Venipuncture / Unknown 03/12/2025 6:15 AM EDT 03/12/2025 11:04 AM EDT Betito Ledezma MD LAB BLOOD ORDERABLES Final Result [facility] [address] [place] [address], * (ABNORMAL) Basic metabolic panel (03/12/2025 6:15 AM EDT) [facility] Sodium 137 133 - 145 mmol/L LAB CHEMISTRY METHOD 03/12/2025 1:[address] [facility] Potassium 2.6(LL) 3.5 - 5.5 mmol/L LAB CHEMISTRY METHOD 03/12/2025 1:[address] [facility] Chloride 93(L) 96 - 110 mmol/L LAB CHEMISTRY METHOD 03/12/2025 1:[address] [facility] CO2 35(H) 21 - 32 mmol/L LAB CHEMISTRY METHOD 03/12/2025 1:[address] [facility] Anion Gap 9 3 - 11 LAB CHEMISTRY METHOD 03/12/2025 1:[address] [facility] Glucose 77 70 - 100 mg/dL LAB CHEMISTRY METHOD 03/12/2025 1:[address] [facility] BUN 12 5 - 25 mg/dL LAB CHEMISTRY METHOD 03/12/2025 1:[address] [facility] Creatinine 0.86 0.50 - 1.10 mg/dL LAB CHEMISTRY METHOD 03/12/2025 1:[address] [facility] eGFR 68 >=60 mL/min/1. 73m2 LAB CHEMISTRY METHOD 03/12/2025 1:[address] [facility] Comment:Calculation based on the Chronic Kidney Disease Epidemiology Collaboration (CKD-EPI) equation refit without adjustment for race. BUN/Creatinine Ratio 14.0 LAB CHEMISTRY METHOD 03/12/2025 1:[address] [facility] Calcium 8.9 8.5 - 10.5 mg/dL LAB CHEMISTRY METHOD 03/12/2025 1:[address] [facility] Blood Venous blood specimen / Unknown Venipuncture / Unknown 03/12/2025 6:15 AM EDT 03/12/2025 11:04 AM EDT us Betito Ledezma MD LAB BLOOD ORDERABLES Final Result [facility] [address] [place] [address], * (ABNORMAL) Complete blood count (03/12/2025 6:15 AM EDT) WBC 7.0 4.8 - 10.8 K/mcL LAB HEMETOLOGY METHOD 03/12/2025 11:[address] [facility] RBC 3.70(L) 3.80 - 4.80 M/mcL LAB HEMETOLOGY METHOD 03/12/2025 11:[address] [facility] Hemoglobin 8.3(L) 11.5 - 16.0 g/dL LAB HEMETOLOGY METHOD 03/12/2025 11:27 AM [facility] Hematocrit 29.0(L) 35.0 - 47.0 % LAB HEMETOLOGY METHOD 03/12/2025 11:27 AM [facility] MCV 78.8(L) 79.0 - 98.0 FL LAB HEMETOLOGY METHOD 03/12/2025 11:27 AM [facility] MCH 22.6(L) 27.0 - 32.0 pcg LAB HEMETOLOGY METHOD 03/12/2025 11:27 AM [facility] MCHC 28.6(L) 32.0 - 37.0 g/dL LAB HEMETOLOGY METHOD 03/12/2025 11:27 AM [facility] RDW 23.4(H) 11.0 - 15.0 % LAB HEMETOLOGY METHOD 03/12/2025 11:27 AM [facility] Platelets 252 130 - 400 K/mcL LAB HEMETOLOGY METHOD 03/12/2025 11:27 AM [facility] MPV 9.3 7.0 - 11.0 FL LAB HEMETOLOGY METHOD 03/12/2025 11:27 AM [facility] NRBC 0.0 <1.0 % LAB HEMETOLOGY METHOD 03/12/2025 11:27 AM [facility] NRBC Absolute 0.00 <0.10 K/mcL LAB HEMETOLOGY METHOD 03/12/2025 11:27 AM [facility] Blood Venous blood specimen / Unknown Venipuncture / Unknown 03/12/2025 6:15 AM EDT 03/12/2025 11:04 AM EDT Betito Ledezma MD LAB BLOOD ORDERABLES Final Result [facility] [address] [place] [address], documented in this encounter Visit Diagnoses Diagnosis Essential (primary) hypertension Unspecified essential hypertension Anemia, unspecified Respiratory failure, unspecified, unspecified whether with hypoxia or hypercapnia (CMS/HCC V24, CMS/HCC V28) Heart failure, unspecified (CMS/HCC V24, CMS/HCC V28) Heart failure, unspecified documented in this encounter Care Teams Double Cut Sawyer Relationship Specialty Start Date End Date Louis Velazco MD [address] [place] [phone] PCP - General Internal Medicine 11/06/24 documented as of this encounter
--- OUTSIDE RECORDS SUMMARY | 2025-04-22 16:49 | XMS_ITS | Encounter Summary ---
Author Organization [employer] Address [address] [place] [address] Care Team Providers Care Heat And Vent Aircraft Mechanic Name Role Phone Louis Velazco MD Primary Care Provider [phone] Encounter Details Date Type Department Care Team (Late st Contact Info) Description 02/13/2025 Lab Requisition [facility] - Main Lab 299 [facility] [place] [address] Mary Barry MD [address] [phone] Chronic obstructive pulmonary disease, unspecified (CMS/HCC V24, [...] LAB CHEMISTRY METHOD 02/15/2025 9:16 AM EDT [facility] Potassium 5.1 3.5 - 5.5 mmol/L LAB CHEMISTRY METHOD 02/15/2025 9:16 AM [facility] Chloride 96 96 - 110 mmol/L LAB CHEMISTRY METHOD 02/15/2025 9:16 AM [facility] CO2 30 21 - 32 mmol/L LAB CHEMISTRY METHOD 02/15/2025 9:16 AM [facility] Anion Gap 6 3 - 11 LAB CHEMISTRY METHOD 02/15/2025 9:16 AM [facility] Glucose 83 70 - 100 mg/dL LAB CHEMISTRY METHOD 02/15/2025 9:16 AM [facility] BUN 48(H) 5 - 25 mg/dL LAB CHEMISTRY METHOD 02/15/2025 9:16 AM [facility] Creatinine 1.36(H) 0.50 - 1.10 mg/dL LAB CHEMISTRY METHOD 02/15/2025 9:16 AM [facility] LAB eGFR 39(L) >=60 mL/min/1. 73m2 LAB CHEMISTRY METHOD 02/15/2025 9:16 AM [facility] Comment:Calculation based on the Chronic Kidney Disease Epidemiology Collaboration (CKD-EPI) equation refit without adjustment for race. BUN/Creatinine Ratio 35.3 LAB CHEMISTRY METHOD 02/15/2025 9:16 AM [facility] Calcium 9.2 8.5 - 10.5 mg/dL LAB CHEMISTRY METHOD 02/15/2025 9:16 AM [facility] Blood Venous blood specimen / Unknown Venipuncture / Unknown 02/15/2025 5:34 AM EDT 02/15/2025 8:26 AM EDT us Mary Barry MD LAB BLOOD ORDERABLES Fin al Result [facility] [address] [place] [address], * (ABNORMAL) Complete blood count (02/15/2025 5:34 AM EDT) [facility] WBC 12.3(H) 4.8 - 10.8 K/mcL LAB HEMETOLOGY METHOD 02/[facility]2025 8[facility] RBC 3.80 3.80 - 4.80 M/mcL LAB HEMETOLOGY METHOD 02/15/2025 8:45 [facility] Hemoglobin 8.4(L) 11.5 - 16.0 g/dL LAB HEMETOLOGY METHOD 02/15/2025 8:45 AM [facility] Hematocrit 30.1(L) 35.0 - 47.0 % LAB HEMETOLOGY METHOD 02/15/2025 8:45 AM [facility] MCV 78.6(L) 79.0 - 98.0 FL LAB HEMETOLOGY METHOD 02/15/2025 8:45 AM [facility] MCH 21.9(L) 27.0 - 32.0 pcg LAB HEMETOLOGY METHOD 02/15/2025 8:45 AM [facility] MCHC 27.9(L) 32.0 - 37.0 g/dL LAB HEMETOLOGY METHOD 02/15/2025 8:45 AM [facility] RDW 20.6(H) 11.0 - 15.0 % LAB HEMETOLOGY METHOD 02/15/2025 8:45 AM [facility] Platelets 224 130 - 400 K/mcL LAB HEMETOLOGY METHOD 02/15/2025 8:45 AM [facility] MPV 10.0 7.0 - 11.0 FL LAB HEMETOLOGY METHOD 02/15/2025 8:45 AM [facility] NRBC 1.0(H) <1.0 % LAB HEMETOLOGY METHOD 02/15/2025 8:45 AM EDT [facility] NRBC Absolute 0.12(H) <0.10 K/mcL LAB HEMETOLOGY METHOD 02/15/2025 8:45 AM EDT [facility] Blood Venous blood specimen / Unknown Venipuncture / Unknown 02/15/2025 5:34 AM EDT 02/15/2025 8:26 AM EDT us Mary Barry MD LAB BLOOD ORDERABLES Fin al Result [facility]) [facility] [address] [place] [address], documented in this encounter Visit Diagnoses Diagnosis Chronic obstructive pulmonary disease, unspecified (CMS/HCC V24, CMS/HCC V28) Anemia, unspecified documented in this encounter Care Teams Heat And Vent Aircraft Mechanic Relationship Specialty Start Date End Date Louis Velazco MD [address] [place] [address] PCP - General Internal Medicine 11/06/24 documented as of this encounter
--- OUTSIDE RECORDS SUMMARY | 2025-04-22 16:49 | XMS_ITS | Encounter Summary ---
Author Organization [employer] Address [address] [place] [address] Care Team Providers Care Appliance Servicer Name Role Phone Louis Velazco MD Primary Care Provider [phone] Encounter Details Date Type Department Care Team (Late st Contact Info) Description 02/27/[address] [facility] - Main Lab 299 [facility] [place] [address] Betito Ledezma MD [address] [place] [address] Pneumonia, unspecified organism; Hyperkalemia; Heart failure, unspecified [...] Pneumonia, unspecified organism Hyperkalemia Heart failure, unspecified ([facility] V24, [facility] V28) Respiratory failure, unspecified with hypoxia ([facility] V24, [facility] V28) Acute on chronic diastolic (congestive) heart failure ([facility] V24, [facility] V28) BASIC METABOLIC PANEL Routine 03/02/2025 9:24 AM EDT Pneumonia, unspecified organism Hyperkalemia Acute on chronic diastolic (congestive) heart failure ([facility] V24, [facility] V28) documented in this encounter Results * Hemoglobin A1c (03/02/2025 9:24 AM EDT) Pathologist [facility] Hemoglobin A1C 6.1 <6.5 % LAB CHEMISTRY METHOD 03/03/2025 10:51 AM EDT [facility] Mean Bld Glu Estim. 128 mg/dL LAB CHEMISTRY METHOD 03/03/2025 10:51 AM EDT [facility] Blood Venous blood specimen / Unknown Venipuncture / Unknown 03/02/2025 9:24 AM EDT 03/02/2025 11:23 AM EDT Betito Ledezma MD LAB BLOOD ORDERABLES Final Result [facility] [address] [place] [address], * Ferritin (03/02/2025 9:24 AM EDT) Pathologist [facility] Ferritin 63 8 - 252 ng/mL LAB CHEMISTRY METHOD 03/02/2025 4:11 PM EDT [facility] Blood Venous blood specimen / Unknown Venipuncture / Unknown 03/02/2025 9:24 AM EDT 03/02/2025 11:23 AM EDT Betito Ledezma MD LAB BLOOD ORDERABLES Final Result [facility] [address] [place] [address], [place] [phone] * (ABNORMAL) Vitamin B12 and folate (03/02/2025 9:24 AM EDT) Vitamin B-12 >2,000(H) 250 - 900 pcg/mL LAB CHEMISTRY METHOD 03/02/2025 4:11 PM EDT [facility] Folate 15.3 2.8 - 17.0 ng/ml LAB CHEMISTRY METHOD 03/02/2025 4:11 PM EDT [facility] Blood Venous blood specimen / Unknown Venipuncture / Unknown 03/02/2025 9:24 AM EDT 03/02/2025 11:23 AM EDT Betito Ledezma MD LAB BLOOD ORDERABLES Final Result [facility] [address] [place] [address], [place] [phone] * (ABNORMAL) Iron and TIBC (03/02/2025 9:24 AM EDT) Iron 20(L) 40 - 150 mcg/dL LAB CHEMISTRY METHOD 03/02/2025 4:11 PM EDT [facility] TIBC 485(H) 250 - 450 mcg/dL LAB CHEMISTRY METHOD 03/02/2025 4:11 PM EDT [facility] Iron Saturation 4(L) 15 - 50 % LAB CHEMISTRY METHOD 03/02/2025 4:11 PM EDT [facility] Blood Venous blood specimen / Unknown Venipuncture / Unknown 03/02/2025 9:24 AM EDT 03/02/2025 11:23 AM EDT Betito Ledezma MD LAB BLOOD ORDERABLES Final Result [facility] [address] [place] [address], [place] [phone] * Lipid panel with reflex to direct LDL (03/02/2025 9:24 AM EDT) Cholesterol 128 0 - 200 mg/dL LAB CHEMISTRY METHOD 03/02/2025 4:11 PM EDT [facility] Triglycerides 62 0 - 150 mg/dL LAB CHEMISTRY METHOD 03/02/2025 4:11 PM EDT [facility] HDL 69 >=40 mg/dL LAB CHEMISTRY METHOD 03/02/2025 4:11 PM [facility] LDL Calculated 47 0 - 100 mg/dL LAB CHEMISTRY METHOD 03/02/2025 4:11 PM EDT [facility] Comment:Estimated LDL Calcul ated using equation: Total cholesterol - HDL cholesterol - (Triglycerides/5) VLDL Cholesterol David 12.4 mg/dL LAB CHEMISTRY METHOD 03/02/2025 4:11 PM EDT [facility] Non HDL Chol. (LDL+VLDL) 59 <145 mg/dL LAB CHEMISTRY METHOD 03/02/2025 4:11 PM EDT [facility] Chol/HDL Ratio 1.9 0.0 - 4.4 LAB CHEMISTRY METHOD 03/02/2025 4:11 PM T [facility] Blood Venous blood specimen / Unknown Venipuncture / Unknown 03/02/2025 9:24 AM EDT 03/02/2025 11:23 AM EDT Betito Ledezma MD LAB BLOOD ORDERABLES Final Result [facility] [address] [place] [address], [place] [phone] * (ABNORMAL) Thyroid stimulating hormone (03/02/2025 9:24 AM EDT) TSH 8.29(H) 0.40 - 4.00 mcIU/mL LAB CHEMISTRY METHOD 03/02/2025 4:40 PM EDT [facility] Blood Venous blood specimen / Unknown Venipuncture / Unknown 03/02/2025 9:24 AM EDT 03/02/2025 11:23 AM EDT Betito Ledezma MD LAB BLOOD ORDERABLES Final Result [facility] [address] [place] [address], [place] [phone] * Thyroxine free (03/02/2025 9:24 AM EDT) Pathologist [facility] Free T4 1.37 0.70 - 1.80 ng/dL LAB CHEMISTRY METHOD 03/02/2025 4:40 PM EDT [facility] Blood Venous blood specimen / Unknown Venipuncture / Unknown 03/02/2025 9:24 AM EDT 03/02/2025 11:23 AM EDT Betito Ledezma MD LAB BLOOD ORDERABLES Final Result [facility] [address] [place] [address], [place] [phone] * (ABNORMAL) Complete blood count (03/02/2025 9:24 AM EDT) WBC 8.9 4.8 - 10.8 K/[facility] LAB HEMETOLOGY METHOD 03/02/2025 1:43 PM EDT [facility] RBC 3.70(L) 3.80 - 4.80 M/[facility] LAB HEMETOLOGY METHOD 03/02/2025 1:43 PM EDT [facility] Hemoglobin 8.3(L) 11.5 - 16.0 g/dL LAB HEMETOLOGY METHOD 03/02/2025 1:43 PM EDT [facility] Hematocrit 29.3(L) 35.0 - 47.0 % LAB HEMETOLOGY METHOD 03/02/2025 1:43 PM [facility] MCV 78.6(L) 79.0 - 98.0 FL LAB HEMETOLOGY METHOD 03/02/2025 1:43 PM [facility] MCH 22.3(L) 27.0 - 32.0 pcg LAB HEMETOLOGY METHOD 03/02/2025 1:43 PM [facility] MCHC 28.3(L) 32.0 - 37.0 g/dL LAB HEMETOLOGY METHOD 03/02/2025 1:43 PM [facility] RDW 22.7(H) 11.0 - 15.0 % LAB HEMETOLOGY METHOD 03/02/2025 1:43 PM [facility] Platelets 165 130 - 400 K/mcL LAB HEMETOLOGY METHOD 03/02/2025 1:43 PM [facility] MPV 9.7 7.0 - 11.0 FL LAB HEMETOLOGY METHOD 03/02/2025 1:43 PM [facility] NRBC 0.0 <1.0 % LAB HEMETOLOGY METHOD 03/02/2025 1:43 PM T [facility] NRBC Absolute 0.00 <0.10 K/mcL LAB HEMETOLOGY METHOD 03/02/2025 1:43 PM [facility] Blood Venous blood specimen / Unknown Venipuncture / Unknown 03/02/2025 9:24 AM EDT 03/02/2025 11:23 AM EDT Betito Ledezma MD LAB BLOOD ORDERABLES Final Result [facility] [address] [place] [address], [place] [phone] * (ABNORMAL) Basic metabolic panel (03/02/2025 9:24 AM EDT) Sodium 130(L) 133 - 145 mmol/L LAB CHEMISTRY METHOD 03/02/2025 3:45 PM EDT [facility] Potassium 3.3(L) 3.5 - 5.5 mmol/L LAB CHEMISTRY METHOD 03/02/2025 3:45 PM EDT [facility] Chloride 87(L) 96 - 110 mmol/L LAB CHEMISTRY METHOD 03/02/2025 3:45 PM [facility] CO2 33(H) 21 - 32 mmol/L LAB CHEMISTRY METHOD 03/02/2025 3:45 [facility] Anion Gap 10 3 - 11 LAB CHEMISTRY METHOD 03/02/2025 3:45 PM [facility] Glucose 103(H) 70 - 100 mg/dL LAB CHEMISTRY METHOD 03/02/2025 3:45 PM [facility] BUN 17 5 - 25 mg/dL LAB CHEMISTRY METHOD 03/02/2025 3:45 PM [facility] Creatinine 0.86 0.50 - 1.10 mg/dL LAB CHEMISTRY METHOD 03/02/2025 3:45 PM [facility] eGFR 68 >=60 mL/min/1. 73m2 LAB CHEMISTRY METHOD 03/02/2025 3:45 PM [facility] Comment:Calculation based on the Chronic Kidney Disease Epidemiology Collaboration (CKD-EPI) equation refit without adjustment for race. BUN/Creatinine Ratio 19.8 LAB CHEMISTRY METHOD 03/02/2025 3:45 PM [facility] Calcium 8.6 8.5 - 10.5 mg/dL LAB CHEMISTRY METHOD 03/02/2025 3:45 PM EDT [facility] Blood Venous blood specimen / Unknown Venipuncture / Unknown 03/02/2025 9:24 AM EDT 03/02/2025 11:23 AM EDT Betito Ledezma MD LAB BLOOD ORDERABLES Final Result [facility] [address] [place] [address], documented in this encounter Visit Diagnoses Diagnosis Pneumonia, unspecified organism Hyperkalemia Hyperpotassemia Heart failure, unspecified ([facility] V24, [facility] V28) Heart failure, unspecified Respiratory failure, unspecified with hypoxia ([facility] V24, [facility] V28) Acute on chronic diastolic (congestive) heart failure ([facility] V24, [facility] V28) documented in this encounter Care Teams Appliance Servicer Relationship Specialty Start Date End Date Louis Velazco MD [address] [place] [address] PCP - General Internal Medicine 11/06/24 documented as of this encounter
--- OUTSIDE RECORDS SUMMARY | 2025-04-22 16:49 | XMS_ITS | Encounter Summary ---
Author Organization [employer] Address [address] [place] [address] Care Team Providers Care Concrete Layer Name Role Phone Louis Velazco MD Primary Care Provider [phone] Encounter Details Date Type Department Care Team (Late st Contact Info) Description 11/13/2024 Lab Requisition [facility] - Main Lab [address] [facility] [place] [address] Louis Velazco MD [address] [place] [phone] Acute on chronic diastolic (congestive) heart [...] LAB CHEMISTRY METHOD 11/13/2024 1:25 PM EDT [facility] Potassium 4.2 3.5 - 5.5 mmol/L LAB CHEMISTRY METHOD 11/13/2024 1:25 PM EDT [facility] Chloride 93(L) 96 - 110 mmol/L LAB CHEMISTRY METHOD 11/13/2024 1:25 PM EDT [facility] CO2 34(H) 21 - 32 mmol/L LAB CHEMISTRY METHOD 11/13/2024 1:25 PM EDT [facility] Anion Gap 9 3 - 11 LAB CHEMISTRY METHOD 11/13/2024 1:25 PM EDT [facility] Glucose 80 70 - 100 mg/dL LAB CHEMISTRY METHOD 11/13/2024 1:25 PM EDT [facility] BUN 12 5 - 25 mg/dL LAB CHEMISTRY METHOD 11/13/2024 1:25 PM T [facility] Creatinine 0.89 0.50 - 1.10 mg/dL LAB CHEMISTRY METHOD 11/13/2024 1:25 PM EDT [facility] eGFR 66 >=60 mL/min/1. 73m2 LAB CHEMISTRY METHOD 11/13/2024 1:25 PM EDT [facility] Comment:Calculation based on the Chronic Kidney Disease Epidemiology Collaboration (CKD-EPI) equation refit without adjustment for race. BUN/Creatinine Ratio 13.5 LAB CHEMISTRY METHOD 11/13/2024 1:25 PM T [facility] Calcium 9.3 8.5 - 10.5 mg/dL LAB CHEMISTRY METHOD 11/13/2024 1:[address] [facility] Blood Venous blood specimen / Unknown 11/13/2024 4:49 AM EDT 11/13/2024 12:45 PM EDT us Louis Velazco MD LAB BLOOD ORDERABLES Final Resu lt [facility] [address] [place] [address], documented in this encounter Visit Diagnoses Diagnosis Acute on chronic diastolic (congestive) heart failure (CMS/HCC V24, CMS/HCC V28) documented in this encounter Care Teams Concrete Layer Relationship Specialty Start Date End Date Louis Velazco MD [address] [place] [address] PCP - General Internal Medicine 11/06/24 documented as of this encounter
--- OUTSIDE RECORDS SUMMARY | 2025-04-22 16:49 | XMS_ITS | Encounter Summary ---
Author Organization [employer] Address [address] [place] [address] Care Team Providers Care Rv Detailer Name Role Phone Louis Velazco MD Primary Care Provider [phone] Encounter Details Date Type Department Care Team (Late st Contact Info) Description 02/17/2025 Lab Requisition [facility] - Main Lab [address] [facility] [place] [address] Mary Barry MD [address] [address] Chronic kidney disease, stage 3b [...] ssp pneumoniae(A) RACHEAL 02/20/2025 8:49 AM EDT [facility] Comment: This is an edited result. Previous organism was Gram negative bacilli on 02/18/2025 at 0811 EDT. Culture, Urine 50,000-100,000 CFU/mL Enterococcus faecalis(A) RACHEAL 02/20/2025 8:49 AM EDT [facility] Comment: The organism value for [...] MICROBIOLOGY - GENER AL ORDERABLES Final Result [facility] [address] [place] [address], [place] [phone] * (ABNORMAL) Urinalysis with reflex microscopic and culture (02/17/2025 12:00 AM EDT) Specific [place] Urine 1.013 1.003 - 1.030 LAB URINALYSIS - AUTOMATED METHOD 02/17/2025 8:48 AM [facility] pH, Urine 5.5 5.0 - 8.0 pH LAB URINALYSIS - AUTOMATED METHOD 02/17/2025 8:48 AM [facility] Leukocytes, Urine Negative Negative LAB URINALYSIS - AUTOMATED METHOD 02/17/2025 8:48 AM [facility] Nitrite, Urine Negative Negative LAB URINALYSIS - AUTOMATED METHOD 02/17/2025 8:48 AM [facility] Protein, Urine 30(A) <=Trace mg/dL LAB URINALYSIS - AUTOMATED METHOD 02/17/2025 8:48 AM [facility] Glucose, Urine Negative Negative mg/dL LAB URINALYSIS - AUTOMATED METHOD 02/17/2025 8:48 AM [facility] Ketones, Urine Negative Negative mg/dL LAB URINALYSIS - AUTOMATED METHOD [facility] Urobilinogen, Urine 1.0 0.2 - 1.0 mg/dL LAB URINALYSIS - AUTOMATED METHOD 02/17/2025 8:48 AM [facility] Bilirubin, Urine Negative Negative LAB URINALYSIS - AUTOMATED METHOD 02/17/2025 8:48 AM [facility] Blood, Urine Negative Negative LAB URINALYSIS - AUTOMATED METHOD 02/17/2025 8:48 AM [facility] RBC, Urine 2.1 0 - 4 /HPF LAB URINALYSIS - AUTOMATED METHOD 02/17/2025 8:48 AM [facility] WBC, Urine 4.2(H) 0 - 4 /HPF LAB URINALYSIS - AUTOMATED METHOD 02/17/2025 8:48 AM [facility] Squamous Epithelial, Urine 51 0 - 60 /LPF LAB URINALYSIS - AUTOMATED METHOD 02/17/2025 8:48 AM [facility] Bacteria, Urine Many(A) Negative /HPF LAB URINALYSIS - AUTOMATED METHOD 02/17/2025 8:48 AM [facility] Hyaline Casts, Urine 2.4 0 - 3 /LPF LAB URINALYSIS - AUTOMATED METHOD 02/17/2025 8:48 AM [facility] Urine Urine specimen obtained by clean catch procedure / Unknown Non-blood Collection / Unknown 02/17/2025 02/17/2025 8:04 AM EDT us Mary Barry MD LAB URINE ORDERABLES Fin al Result [facility] [address] [place] [address], * Dutta urine culture tube (02/17/2025 12:00 AM EDT) Extra Tube Hold for add-ons. 02/17/2025 10:01 AM EDT [facility] Comment:Auto resulted. Urine Urine specimen obtained by clean catch procedure / Unknown Non-blood Collection / Unknown 02/17/2025 02/17/2025 8:04 AM EDT us Mary Barry MD LAB URINE ORDERABLES Fin al Result [facility] [address] [place] [address], documented in this encounter Visit Diagnoses Diagnosis Chronic kidney disease, stage 3b (CMS/HCC V24, CMS/HCC V28) documented in this encounter Care Teams Rv Detailer Relationship Specialty Start Date End Date Louis Velazco MD [address] [place] [address] PCP - General Internal Medicine 11/06/24 documented as of this encounter
--- OUTSIDE RECORDS SUMMARY | 2025-04-22 16:49 | XMS_ITS | Encounter Summary ---
Author Organization [facility] Address [address] [place] [address] Care Team Providers Care Diamond Driller Name Role Phone Louis Velazco MD Primary Care Provider [phone] Encounter Details Date Type Department Care Team (Late st Contact Info) Description 03/16/2025 Lab Requisition [facility] - Main Lab [address] [place] [address] Betito Ledezma MD [address] [place] [address] Hypokalemia Social History Tobacco Use Types Packs/Day [...] Results * Potassium (03/16/2025 6:36 AM EDT) [facility] Signature Potassium 3.9 3.5 - 5.5 mmol/L LAB CHEMISTRY METHOD 03/16/2025 10:27 AM EDT [facility] Blood Venous blood specimen / Unknown Venipuncture / Unknown 03/16/2025 6:36 AM EDT 03/16/2025 8:48 AM EDT Betito Ledezma MD LAB BLOOD ORDERABLES Final Result [facility] [address] [place] [address], documented in this encounter Visit Diagnoses Diagnosis Hypokalemia Hypopotassemia documented in this encounter Care Teams Diamond Driller Relationship Specialty Start Date End Date Louis Velazco MD [address] [place] [address] PCP - General Internal Medicine 11/06/24 documented as of this encounter
--- OUTSIDE RECORDS SUMMARY | 2025-04-22 16:49 | XMS_ITS | Patient Health Record ---
Author Organization [facility] Address [address] [place] [address] Care Team Providers Care Gelatin Plant Supervisor Name Role Phone Parul Cartagena Primary Care Provider Unavailab Mick Quiroz Unavailable [phone] Reason For Referral No Information Medications Medication [...] Problem Screening for malignant neoplasm of colon (691875096) Encounter for screening for malignant neoplasm of colon (Z12.11) Active confirmed Problem Screening for malignant neoplasm of rectum (309577792) Encounter for screening for malignant neoplasm of rectum (Z12.12) Active confirmed Problem Epigastric pain (97669253) Abdominal pain, epigastric (R10.13) Active confirmed Problem Gastroesophageal reflux disease (613874040) Gastroesophageal reflux disease, esophagitis presence not specified (K21.9) Active confirmed Problem Anemia (865570727) Anemia (D64.9) Active confir med Plan Of Treatment Future Test Test Name Order Date UPPER GI ENDOSCOPY 07/20/2016 COLONOSCOPY 07/20/2016 Insurance Providers Payer Name Payer Address Payer Phone Subscriber Number Group Number Insured Name Patient Relationship to Insured Coverage Start Date Coverage End Date [employer] [address] [place] [phone] [id number] LAZARO PAULSON Self - patient is the insured Medical (General) History Medical History History ICD Code Hypertension COPD Denies VA,DM,CVA,renal disease GERD Neg. Hemoccults in 05/2016--she does the m yearly Chest pain 07/2016--having a cardiac w/u with Dr. Reilly--ETT and Cardiac ECHO Surgical History Surgery Date(Month/Year) Hysterectomy and removal of 1 ovary 1980 Tonsils/adenoids
--- OUTSIDE RECORDS SUMMARY | 2025-04-22 16:49 | XMS_ITS | Encounter Summary ---
Author Organization [employer] Address [address] [place] [address] Care Team Providers Care Fax Machine Repairer Name Role Phone Louis Velazco MD Primary Care Provider [phone] Encounter Details Date Type Department Care Team (Late st Contact Info) Description 03/17/2025 Lab Requisition [facility] - Main Lab [address] [facility] [address] Betito Ledezma MD [address] [place] [address] Heart failure, unspecified (CMS/HCC V24, CMS/HCC V28) [...] pcg/mL LAB CHEMISTRY METHOD 03/18/2025 10:01 AM [facility] Blood Venous blood specimen / Unknown Venipuncture / Unknown 03/18/2025 6:15 AM EDT 03/18/2025 9:00 AM EDT us Betito Ledezma MD LAB BLOOD ORDERABLES Final Result [facility] [address] [place] [address], [place] [phone] * (ABNORMAL) Comprehensive metabolic panel (03/18/2025 6:15 AM EDT) Sodium 139 133 - 145 mmol/L LAB CHEMISTRY METHOD 03/18/2025 9:39 AM [facility] Potassium 3.1(L) 3.5 - 5.5 mmol/L LAB CHEMISTRY METHOD 03/18/2025 9:39 AM [facility] Chloride 98 96 - 110 mmol/L LAB CHEMISTRY METHOD 03/18/2025 9:39 AM [facility] CO2 35(H) 21 - 32 mmol/L LAB CHEMISTRY METHOD 03/18/2025 9:39 AM [facility] Anion Gap 6 3 - 11 LAB CHEMISTRY METHOD 03/18/2025 9:39 AM [facility] Glucose 89 70 - 100 mg/dL LAB CHEMISTRY METHOD 03/18/2025 9:39 AM [facility] BUN 14 5 - 25 mg/dL LAB CHEMISTRY METHOD 03/18/2025 9:39 AM [facility] Creatinine 0.93 0.50 - 1.10 mg/dL LAB CHEMISTRY METHOD 03/18/2025 9:39 AM [facility] eGFR 62 >=60 mL/min/1. 73m2 LAB CHEMISTRY METHOD 03/18/2025 9:39 AM EDT [facility] Comment:Calculation based on the Chronic Kidney Disease Epidemiology Collaboration (CKD-EPI) equation refit without adjustment for race. BUN/Creatinine Ratio 15.1 LAB CHEMISTRY METHOD 03/18/2025 9:39 AM [facility] Calcium 9.0 8.5 - 10.5 mg/dL LAB CHEMISTRY METHOD 03/18/2025 9:39 AM [facility] AST (SGOT) 27 10 - 42 unit/L LAB CHEMISTRY METHOD 03/18/2025 9:39 AM [facility] ALT (SGPT) 28 10 - 60 unit/L LAB CHEMISTRY METHOD 03/18/2025 9:39 AM [facility] Alkaline Phosphatase 162(H) 42 - 121 unit/L LAB CHEMISTRY METHOD 03/18/2025 9:39 AM [facility] Total Protein 6.0 6.0 - 8.0 g/dL LAB CHEMISTRY METHOD 03/18/2025 9:39 AM [facility] Albumin 3.6 3.2 - 5.0 g/dL LAB CHEMISTRY METHOD 03/18/2025 9:39 AM [facility] Total Bilirubin 0.8 0.0 - 1.4 mg/dL LAB CHEMISTRY METHOD 03/18/2025 9:39 AM [facility] Blood Venous blood specimen / Unknown Venipuncture / Unknown 03/18/2025 6:15 AM EDT 03/18/2025 9:00 AM EDT us Betito Ledezma MD LAB BLOOD ORDERABLES Final Result [facility] [address] [place] [address], [place] [phone] * (ABNORMAL) Complete blood count (03/18/2025 6:15 AM EDT) WBC 7.6 4.8 - 10.8 K/mcL LAB HEMETOLOGY METHOD 03/18/2025 9:09 AM [facility] RBC 3.80 3.80 - 4.80 M/mcL LAB HEMETOLOGY METHOD 03/18/2025 9:09 AM [facility] Hemoglobin 8.8(L) 11.5 - 16.0 g/dL LAB HEMETOLOGY METHOD 03/18/2025 9:09 AM [facility] Hematocrit 30.9(L) 35.0 - 47.0 % LAB HEMETOLOGY METHOD 03/18/2025 9:09 AM [facility] MCV 80.9 79.0 - 98.0 FL LAB HEMETOLOGY METHOD 03/18/2025 9:09 AM [facility] MCH 23.0(L) 27.0 - 32.0 pcg LAB HEMETOLOGY METHOD 03/18/2025 9:09 AM [facility] MCHC 28.5(L) 32.0 - 37.0 g/dL LAB HEMETOLOGY METHOD 03/18/2025 9:09 AM [facility] RDW 25.1(H) 11.0 - 15.0 % LAB HEMETOLOGY METHOD 03/18/2025 9:09 AM [facility] Platelets 214 130 - 400 K/mcL LAB HEMETOLOGY METHOD 03/18/2025 9:09 AM [facility] MPV 10.1 7.0 - 11.0 FL LAB HEMETOLOGY METHOD 03/18/2025 9:09 AM [facility] NRBC 0.0 <1.0 % LAB HEMETOLOGY METHOD 03/18/2025 9:09 AM [facility] NRBC Absolute 0.00 <0.10 K/mcL LAB HEMETOLOGY METHOD 03/18/2025 9:09 AM [facility] Blood Venous blood specimen / Unknown Venipuncture / Unknown 03/18/2025 6:15 AM EDT 03/18/2025 9:00 AM EDT Betito Ledezma MD LAB BLOOD ORDERABLES Final Result [facility] [address] [place] [address], documented in this encounter Visit Diagnoses Diagnosis Heart failure, unspecified (CMS/HCC V24, CMS/HCC V28) Heart failure, unspecified documented in this encounter Care Teams Fax Machine Repairer Relationship Specialty Start Date End Date Louis Velazco MD [address] [place] [address] PCP - General Internal Medicine 11/06/24 documented as of this encounter
--- OUTSIDE RECORDS SUMMARY | 2025-04-22 16:50 | XMS_ITS | Clinical Summary ---
Author Organization [address] Address [address] [place] [address] Phone Care Team Providers Care Chrome Plater Helper Name Role Phone Louis Velazco MD Primary Care Provider [phone] Encounters Date Type Department Care Team Description 03/20/2025 Lab Requisition [facility] [address] [place] [phone] Betito Ledezma MD Pneumonia, unspecified organism; Hyperkalemia 03/17/2025 Lab Requisition [facility] [address] [place] [phone] Betito Ledezma MD Heart failure, unspecified (CMS/HCC V24, CMS/HCC V28) 03/16/2025 Lab Requisition [facility] [address] [place] [phone] Betito Ledezma MD Hypokalemia 03/14/2025 Lab Requisition [facility] [address] [place] [phone] Betito Ledezma MD Pneumonia, unspecified organism; Hyperkalemia 03/11/2025 Lab Requisition [facility] [address] [place] [phone] Betito Ledezma MD Essential (primary) hypertension; Anemia, unspecified; Respiratory failure, unspecified, unspecified whether with hypoxia or hypercapnia (CMS/HCC V24, CMS/HCC V28); Heart failure, unspecified (CMS/HCC V24, CMS/HCC V28) 03/05/2025 Lab Requisition [facility] [address] [place] [phone] Betito Ledezma MD Pneumonia, unspecified organism; Hyperkalemia 03/04/2025 Lab Requisition [facility] [address] [place] [phone] Betito Ledezma MD Essential (primary) hypertension; Anemia, unspecified 03/03/2025 Lab Requisition [facility] [address] [place] [phone] Betito Ledezma MD Hypokalemia 02/27/2025 Lab Requisition [facility] [address] [place] [phone] Betito Ledezma MD Pneumonia, unspecified organism; Hyperkalemia; Heart failure, unspecified (CMS/HCC V24, CMS/HCC V28); Respiratory failure, unspecified with hypoxia (CMS/HCC V24, CMS/HCC V28); Acute on chronic diastolic (congestive) heart failure (CMS/HCC V24, CMS/HCC V28) 02/26/2025 Lab Requisition [facility] [address] [place] [phone] Mary Barry MD Chronic obstructive pulmonary disease, unspecified (CMS/HCC V24, CMS/HCC V28); Anemia, unspecified 02/26/2025 Lab Requisition [facility] [address] [place] [phone] Betito Ledezma MD Hypokalemia; Pneumonia, unspecified organism 02/19/2025 Lab Requisition [facility] [address] [place] [phone] Mary Barry MD Chronic obstructive pulmonary disease, unspecified (CMS/HCC V24, CMS/HCC V28); Anemia, unspecified 02/17/2025 Lab Requisition [facility] [address] [place] [phone] Mary Barry MD Chronic respiratory failure with hypoxia [place] [place] [facility] [place] 02/17/2025 Lab Requisition [facility] [address] [place] [phone] Mary Barry MD Chronic kidney disease, stage 3b ([facility] [place] [facility] [place] 02/13/2025 Lab Requisition [facility] [address] [place] [phone] Mary Barry MD Chronic obstructive pulmonary disease, unspecified ([facility] [place], [facility] [place] Anemia, unspecified 02/12/2025 Lab Requisition [facility] [address] [place] [phone] Mary Barry MD Chronic obstructive pulmonary disease, unspecified ([facility] [place], [facility] [place] Anemia, unspecified from Last 3 Months [...] is included. WBC 7.6 4.8 - 10.8 K/[facility] LAB HEMETOLOGY METHOD 03/18/2025 9:09 AM [facility] RBC 3.80 3.80 - 4.80 M/mcL LAB HEMETOLOGY METHOD 03/18/2025 9:09 AM [facility] Hemoglobin 8.8(L) 11.5 - 16.0 g/dL LAB HEMETOLOGY METHOD 03/18/2025 9:09 AM [facility] Hematocrit 30.9(L) 35.0 - 47.0 % LAB HEMETOLOGY METHOD 03/18/2025 9:09 AM [facility] MCV 80.9 79.0 - 98.0 FL LAB HEMETOLOGY METHOD 03/18/2025 9:09 AM [facility] LAB MCH 23.0(L) 27.0 - 32.0 pcg LAB HEMETOLOGY METHOD 03/18/2025 9:09 AM [facility] LAB MCHC 28.5(L) 32.0 - 37.0 g/dL LAB HEMETOLOGY METHOD 03/18/2025 9:09 AM [facility] RDW 25.1(H) 11.0 - 15.0 % LAB HEMETOLOGY METHOD 03/18/2025 9:09 AM [facility] LAB Platelets 214 130 - 400 K/mcL LAB HEMETOLOGY METHOD 03/18/2025 9:09 AM [facility] LAB MPV 10.1 7.0 - 11.0 FL LAB HEMETOLOGY METHOD 03/18/2025 9:09 AM [facility] LAB NRBC 0.0 <1.0 % LAB HEMETOLOGY METHOD 03/18/2025 9:09 AM [facility] LAB NRBC Absolute 0.00 <0.10 K/mcL LAB HEMETOLOGY METHOD 03/18/2025 9:09 AM [facility] Blood Venous blood specimen / Unknown Venipuncture / Unknown 03/18/2025 6:15 AM EDT 03/18/2025 9:00 AM EDT us Betito Ledezma MD LAB BLOOD ORDERABLES Final Result Performing Organization Address City/[facility] [address]/ZIP Co de Phone Number [facility] [address] [place] [address], [place] [phone] * (ABNORMAL) B-type natriuretic peptide (03/18/2025 6:15 AM EDT) Only the most recent of2 resultswithin the time period is included. Pathologist [facility] BNP 1,065(H) <=100 pcg/mL LAB CHEMISTRY METHOD 03/18/2025 10:01 AM EDT [facility] Blood Venous blood specimen / Unknown Venipuncture / Unknown 03/18/2025 6:15 AM EDT 03/18/2025 9:00 AM EDT us Betito Ledezma MD LAB BLOOD ORDERABLES Final Result Performing Organization Address [facility] [address]/ZIP Co de Phone Number [facility] [address] [place] [address], [place] [phone] * (ABNORMAL) Comprehensive metabolic panel (03/18/2025 6:15 AM EDT) Only the most recent of2 resultswithin the time period is included. Sodium 139 133 - 145 mmol/L LAB CHEMISTRY METHOD 03/18/2025 9:39 AM EDT [facility] Potassium 3.1(L) 3.5 - 5.5 mmol/L LAB CHEMISTRY METHOD 03/18/2025 9:39 AM EDT [facility] Chloride 98 96 - 110 mmol/L LAB CHEMISTRY METHOD 03/18/2025 9:39 AM EDT [facility] CO2 35(H) 21 - 32 mmol/L LAB CHEMISTRY METHOD 03/18/2025 9:39 AM EDT [facility] Anion Gap 6 3 - 11 LAB CHEMISTRY METHOD 03/18/2025 9:39 AM [facility] Glucose 89 70 - 100 mg/dL LAB CHEMISTRY METHOD 03/18/2025 9:39 AM [facility] BUN 14 5 - 25 mg/dL LAB CHEMISTRY METHOD 03/18/2025 9:39 AM [facility] Creatinine 0.93 0.50 - 1.10 mg/dL LAB CHEMISTRY METHOD 03/18/2025 9:39 AM [facility] eGFR 62 >=60 mL/min/1. 73m2 LAB CHEMISTRY METHOD 03/18/2025 9:39 AM [facility] Comment:Calculation based on the Chronic Kidney Disease Epidemiology Collaboration (CKD-EPI) equation refit without adjustment for race. BUN/Creatinine Ratio 15.1 LAB CHEMISTRY METHOD 03/18/2025 9:39 AM [facility] Calcium 9.0 8.5 - 10.5 mg/dL LAB CHEMISTRY METHOD 03/18/2025 9:39 AM [facility] AST (SGOT) 27 10 - 42 unit/L LAB CHEMISTRY METHOD 03/18/2025 9:39 AM [facility] ALT (SGPT) 28 10 - 60 unit/L LAB CHEMISTRY METHOD 03/18/2025 9:39 AM [facility] Alkaline Phosphatase 162(H) 42 - 121 unit/L LAB CHEMISTRY METHOD 03/18/2025 9:39 AM [facility] Total Protein 6.0 6.0 - 8.0 g/dL LAB CHEMISTRY METHOD 03/18/2025 9:39 AM [facility] Albumin 3.6 3.2 - 5.0 g/dL LAB CHEMISTRY METHOD 03/18/2025 9:39 AM [facility] Total Bilirubin 0.8 0.0 - 1.4 mg/dL LAB CHEMISTRY METHOD 03/18/2025 9:39 AM EDT [facility] Blood Venous blood specimen / Unknown Venipuncture / Unknown 03/18/2025 6:15 AM EDT 03/18/2025 9:00 AM EDT us Betito Ledzema MD LAB BLOOD ORDERABLES Final Result Performing Organization Address City/[facility] [address]/ZIP Co de Phone Number [facility] [address] [place] [address], [place] [phone] * Potassium (03/16/2025 6:36 AM EDT) Potassium 3.9 3.5 - 5.5 mmol/L LAB CHEMISTRY METHOD 03/16/2025 10:27 AM EDT [facility] Blood Venous blood specimen / Unknown Venipuncture / Unknown 03/16/2025 6:36 AM EDT 03/16/2025 8:48 AM EDT us Betito Ledezma MD LAB BLOOD ORDERABLES Final Result Performing Organization Address City/[facility] [address]/ZIP Co de Phone Number [facility] [address] [place] [address], [place] [phone] * (ABNORMAL) Basic metabolic panel (03/15/2025 8:26 AM EDT) Only the most recent of9 resultswithin the time period is included. Sodium 137 133 - 145 mmol/L LAB CHEMISTRY METHOD 03/15/2025 11:59 AM EDT [facility] Potassium 3.4(L) 3.5 - 5.5 mmol/L LAB CHEMISTRY METHOD 03/15/2025 11:59 AM EDT [facility] Chloride 95(L) 96 - 110 mmol/L LAB CHEMISTRY METHOD 03/15/2025 11:59 AM EDT [facility] CO2 33(H) 21 - 32 mmol/L LAB CHEMISTRY METHOD 03/15/2025 11:59 AM [facility] Anion Gap 9 3 - 11 LAB CHEMISTRY METHOD 03/15/2025 11:59 AM [facility] Glucose 97 70 - 100 mg/dL LAB CHEMISTRY METHOD 03/15/2025 11:59 AM [facility] BUN 14 5 - 25 mg/dL LAB CHEMISTRY METHOD 03/15/2025 11:59 AM [facility] Creatinine 1.02 0.50 - 1.10 mg/dL LAB CHEMISTRY METHOD 03/15/2025 11:59 AM [facility] eGFR 56(L) >=60 mL/min/1. 73m2 LAB CHEMISTRY METHOD 03/15/2025 11:59 AM [facility] Comment:Calculation based on the Chronic Kidney Disease Epidemiology Collaboration (CKD-EPI) equation refit without adjustment for race. BUN/Creatinine Ratio 13.7 LAB CHEMISTRY METHOD 03/15/2025 11:59 AM [facility] Calcium 9.1 8.5 - 10.5 mg/dL LAB CHEMISTRY METHOD 03/15/2025 11:59 AM [facility] Blood Venous blood specimen / Unknown Venipuncture / Unknown 03/15/2025 8:26 AM EDT 03/15/2025 10:59 AM EDT Betito Ledezma MD LAB BLOOD ORDERABLES Final Result [facility] [address] [place] [address], * (ABNORMAL) Iron (03/05/2025 6:56 AM EDT) Iron 15(L) 40 - 150 mcg/dL LAB CHEMISTRY METHOD 03/05/2025 9:47 AM EDT [facility] Blood Venous blood specimen / Unknown Venipuncture / Unknown 03/05/2025 6:56 AM EDT 03/05/2025 8:46 AM EDT Betito Ledezma MD LAB BLOOD ORDERABLES Final Result Performing Organization Address [facility] [address]/ZIP Co de Phone Number [facility] [address] [place] [address], [place] [phone] * (ABNORMAL) Vitamin B12 and folate (03/02/2025 9:24 AM EDT) [facility] Vitamin B-12 >2,000(H) 250 - 900 pcg/mL LAB CHEMISTRY METHOD 03/02/2025 4:11 PM EDT [facility] Folate 15.3 2.8 - 17.0 ng/ml LAB CHEMISTRY METHOD 03/02/2025 4:11 PM EDT [facility] Blood Venous blood specimen / Unknown Venipuncture / Unknown 03/02/2025 9:24 AM EDT 03/02/2025 11:23 AM EDT Betito Ledezma MD LAB BLOOD ORDERABLES Final Result Performing Organization Address City/[facility] [address]/ZIP Co de Phone Number [facility] [address] [place] [address], [place] [phone] * Lipid panel with reflex to direct LDL (03/02/2025 9:24 AM EDT) [facility] Cholesterol 128 0 - 200 mg/dL LAB CHEMISTRY METHOD 03/02/2025 4:11 PM EDT [facility] Triglycerides 62 0 - 150 mg/dL LAB CHEMISTRY METHOD 03/02/2025 4:11 PM EDT [facility] HDL 69 >=40 mg/dL LAB CHEMISTRY METHOD 03/02/2025 4:11 PM EDT [facility] LDL Calculated 47 0 - 100 mg/dL LAB CHEMISTRY METHOD 03/02/2025 4:11 PM EDT [facility] Comment:Estimated LDL Calcul ated using equation: Total cholesterol - HDL cholesterol - (Triglycerides/5) VLDL Cholesterol David 12.4 mg/dL LAB CHEMISTRY METHOD 03/02/2025 4:11 PM EDT [facility] Non HDL Chol. (LDL+VLDL) 59 <145 mg/dL LAB CHEMISTRY METHOD 03/02/2025 4:11 PM EDT [facility] Chol/HDL Ratio 1.9 0.0 - 4.4 LAB CHEMISTRY METHOD 03/02/2025 4:11 PM EDT [facility] Blood Venous blood specimen / Unknown Venipuncture / Unknown 03/02/2025 9:24 AM EDT 03/02/2025 11:23 AM EDT Betito Ledezma MD LAB BLOOD ORDERABLES Final Result Performing Organization Address [facility] de Phone Number [facility] [address] [place] [address], [place] [phone] * (ABNORMAL) Iron and TIBC (03/02/2025 9:24 AM EDT) Iron 20(L) 40 - 150 mcg/dL LAB CHEMISTRY METHOD 03/02/2025 4:11 PM EDT [facility] TIBC 485(H) 250 - 450 mcg/dL LAB CHEMISTRY METHOD 03/02/2025 4:11 PM EDT [facility] Iron Saturation 4(L) 15 - 50 % LAB CHEMISTRY METHOD 03/02/2025 4:11 PM EDT [facility] Blood Venous blood specimen / Unknown Venipuncture / Unknown 03/02/2025 9:24 AM EDT 03/02/2025 11:23 AM EDT Betito Ledezma MD LAB BLOOD ORDERABLES Final Result Performing Organization Address City/[facility] [address]/ZIP Co de Phone Number [facility] [address] [place] [address], [place] [phone] * (ABNORMAL) Thyroid stimulating hormone (03/02/2025 9:24 AM EDT) Pathologist [facility] TSH 8.29(H) 0.40 - 4.00 mcIU/mL LAB CHEMISTRY METHOD 03/02/2025 4:40 PM EDT [facility] Blood Venous blood specimen / Unknown Venipuncture / Unknown 03/02/2025 9:24 AM EDT 03/02/2025 11:23 AM EDT Betito Ledezma MD LAB BLOOD ORDERABLES Final Result [facility] [address] [place] [address], [place] [phone] * Thyroxine free (03/02/2025 9:24 AM EDT) [facility] Free T4 1.37 0.70 - 1.80 ng/dL LAB CHEMISTRY METHOD 03/02/2025 4:40 PM EDT [facility] Blood Venous blood specimen / Unknown Venipuncture / Unknown 03/02/2025 9:24 AM EDT 03/02/2025 11:23 AM EDT Betito Ledezma MD LAB BLOOD ORDERABLES Final Result [facility] [address] [place] [address], [place] [phone] * Hemoglobin A1c (03/02/2025 9:24 AM EDT) [facility] Hemoglobin A1C 6.1 <6.5 % LAB CHEMISTRY METHOD 03/03/2025 10:51 AM EDT [facility] Mean Bld Glu Estim. 128 mg/dL LAB CHEMISTRY METHOD 03/03/2025 10:51 AM EDT [facility] Blood Venous blood specimen / Unknown Venipuncture / Unknown 03/02/2025 9:24 AM EDT 03/02/2025 11:23 AM EDT Betito Ledezma MD LAB BLOOD ORDERABLES Final Result Performing Organization Address [facility] [address]/ZIP Co de Phone Number [facility] [address] [place] [address], [place] [phone] * Ferritin (03/02/2025 9:24 AM EDT) Pathologist [facility] Ferritin 63 8 - 252 ng/mL LAB CHEMISTRY METHOD 03/02/2025 4:11 PM EDT [facility] Blood Venous blood specimen / Unknown Venipuncture / Unknown 03/02/2025 9:24 AM EDT 03/02/2025 11:23 AM EDT Betito Ledezma MD LAB BLOOD ORDERABLES Final Result Performing Organization Address City/[facility] [address]/ZIP Co de Phone Number [facility] [address] [place] [address], [place] [phone] * (ABNORMAL) RBC morphology review (02/17/2025 5:45 AM EDT) Pathologist [facility] Rbc Morphology Present( A) Consistent with indices, Normal for LAB HEMETOLOGY METHOD 02/17/2025 9:24 AM EDT [facility] Platelet Morphology - WAM See Note(A) Normal LAB HEMETOLOGY METHOD 02/17/2025 9:24 AM EDT [facility] Comment:PLT: Normal Polychromasia Present Present( A) (none) LAB HEMETOLOGY METHOD 02/17/2025 9:24 AM EDT [facility] Blood Venous blood specimen / Unknown Venipuncture / Unknown 02/17/2025 5:45 AM EDT 02/17/2025 8:29 AM EDT us Mary Barry MD LAB BLOOD ORDERABLES Fin al Result [facility] [address] [place] [address], * (ABNORMAL) CBC auto differential (02/17/2025 5:45 AM EDT) WBC 15.0(H) 4.8 - 10.8 K/mcL LAB HEMETOLOGY METHOD 02/17/2025 9:24 AM EDT [facility] RBC 4.10 3.80 - 4.80 M/mcL LAB HEMETOLOGY METHOD 02/17/2025 9:24 AM EDT [facility] Hemoglobin 9.2(L) 11.5 - 16.0 g/dL LAB HEMETOLOGY METHOD 02/[facility]25 [facility] Hematocrit 32.9(L) 35.0 - 47.0 % LAB HEMETOLOGY METHOD 02/17/2025 9:24 AM EDT [facility] MCV 80.0 79.0 - 98.0 FL LAB HEMETOLOGY METHOD 02/17/2025 9:[facility] MCH 22.4(L) 27.0 - 32.0 pcg LAB HEMETOLOGY METHOD 02/17/2025 9:[facility] MCHC 28.0(L) 32.0 - 37.0 g/dL LAB HEMETOLOGY METHOD 02/17/2025 9:[facility] RDW 21.8(H) 11.0 - 15.0 % LAB HEMETOLOGY METHOD 02/17/2025 9:[facility] Platelets 216 130 - 400 K/mcL LAB HEMETOLOGY METHOD 02/17/2025 9:24 AM EDT [facility] MPV 10.6 7.0 - 11.0 FL LAB HEMETOLOGY METHOD 02/17/2025 9:24 AM [facility] NRBC 3.4(H) <1.0 % LAB HEMETOLOGY METHOD 02/17/2025 9:24 AM [facility] NRBC Absolute 0.51(H) <0.10 K/mcL LAB HEMETOLOGY METHOD 02/17/2025 9:24 AM [facility] Neutrophils Relative 83.1 % LAB HEMETOLOGY METHOD 02/17/2025 9:24 AM [facility] Comment:This is an appended report. These results have been appended to a previously preliminary verified report. Lymphocytes Relative 4.6 % LAB HEMETOLOGY METHOD 02/17/2025 9:24 AM [facility] Comment:This is an appended report. These results have been appended to a previously preliminary verified report. Monocytes Relative 11.0 % LAB HEMETOLOGY METHOD 02/17/2025 9:24 AM [facility] Comment:This is an appended report. These results have been appended to a previously preliminary verified report. Eosinophils Relative 0.0 % LAB HEMETOLOGY METHOD 02/17/2025 9:24 AM [facility] Comment:This is an appended report. These results have been appended to a previously preliminary verified report. Basophils Relative 0.1 % LAB HEMETOLOGY METHOD 02/17/2025 9:24 AM [facility] Comment:This is an appended report. These results have been appended to a previously preliminary verified report. Immature Granulocytes Relative 1.2 % LAB HEMETOLOGY METHOD 02/17/2025 9:24 AM [facility] Comment:This is an appended report. These results have been appended to a previously preliminary verified report. Neutrophils Absolute 12.43(H) 1.50 - 7.00 K/mcL LAB HEMETOLOGY METHOD 02/17/2025 9:24 AM EDT [facility] Comment:This is an appended report. These results have been appended to a previously preliminary verified report. Lymphocytes Absolute 0.69(L) 1.00 - 5.00 K/mcL LAB HEMETOLOGY METHOD 02/17/2025 9:24 AM EDT [facility] Comment:This is an appended report. These results have been appended to a previously preliminary verified report. Monocytes Absolute 1.65(H) 0.20 - 1.00 K/mcL LAB HEMETOLOGY METHOD 02/17/2025 9:24 AM EDT [facility] Comment:This is an appended report. These results have been appended to a previously preliminary verified report. Eosinophils Absolute 0.00 0.00 - 0.50 K/mcL LAB HEMETOLOGY METHOD 02/17/2025 9:24 AM EDT [facility] Comment:This is an appended report. These results have been appended to a previously preliminary verified report. Basophils Absolute 0.02 0.00 - 0.20 K/mcL LAB HEMETOLOGY METHOD 02/17/2025 9:24 AM EDT [facility] Comment:This is an appended report. These results have been appended to a previously preliminary verified report. Immature Granulocytes Absolute 0.18(H) 0.00 - 0.03 K/[facility] LAB HEMETOLOGY METHOD 02/17/2025 9:24 AM EDT [facility] Comment:This is an appended report. These results have been appended to a previously preliminary verified report. Blood Venous blood specimen / Unknown Venipuncture / Unknown 02/17/2025 5:45 AM EDT 02/17/2025 8:29 AM EDT us Mary Barry MD LAB BLOOD ORDERABLES Fin al Result [facility] [address] [place] [address], * (ABNORMAL) Urinalysis with reflex microscopic and culture (02/17/2025 12:00 AM EDT) Specific [place] Urine 1.013 1.003 - 1.030 LAB URINALYSIS - AUTOMATED METHOD 02/17/2025 8:48 AM [facility] pH, Urine 5.5 5.0 - 8.0 pH LAB URINALYSIS - AUTOMATED METHOD 02/17/2025 8:48 AM [facility] Leukocytes, Urine Negative Negative LAB URINALYSIS - AUTOMATED METHOD 02/17/2025 8:48 AM [facility] Nitrite, Urine Negative Negative LAB URINALYSIS - AUTOMATED METHOD 02/17/2025 8:48 AM [facility] Protein, Urine 30(A) <=Trace mg/dL LAB URINALYSIS - AUTOMATED METHOD 02/17/2025 8:48 AM [facility] Glucose, Urine Negative Negative mg/dL LAB URINALYSIS - AUTOMATED METHOD 02/17/2025 8:48 AM [facility] Ketones, Urine Negative Negative mg/dL LAB URINALYSIS - AUTOMATED METHOD 02/17/2025 8:48 AM [facility] Urobilinogen, Urine 1.0 0.2 - 1.0 mg/dL LAB URINALYSIS - AUTOMATED METHOD 02/17/2025 8:48 AM [facility] Bilirubin, Urine Negative Negative LAB URINALYSIS - AUTOMATED METHOD 02/17/2025 8:48 AM [facility] Blood, Urine Negative Negative LAB URINALYSIS - AUTOMATED METHOD 02/17/2025 8:48 AM [facility] RBC, Urine 2.1 0 - 4 /HPF LAB URINALYSIS - AUTOMATED METHOD 02/17/2025 8:48 AM [facility] WBC, Urine 4.2(H) 0 - 4 /HPF LAB URINALYSIS - AUTOMATED METHOD 02/17/2025 8:48 AM EDT [facility] Squamous Epithelial, Urine 51 0 - 60 /LPF LAB URINALYSIS - AUTOMATED METHOD 02/17/2025 8:48 AM EDT [facility] Bacteria, Urine Many(A) Negative /HPF LAB URINALYSIS - AUTOMATED METHOD 02/17/2025 8:48 AM EDT [facility] Hyaline Casts, Urine 2.4 0 - 3 /LPF LAB URINALYSIS - AUTOMATED METHOD 02/17/2025 8:48 AM EDT [facility] Urine Urine specimen obtained by clean catch procedure / Unknown Non-blood Collection / Unknown 02/17/2025 02/17/2025 8:04 AM EDT Mary Barry MD LAB URINE ORDERABLES Fin al Result Performing Organization Address [facility]/ZIP Co de Phone Number [facility] [address] [place] [address], [place] [phone] * Dutta urine culture tube (02/17/2025 12:00 AM EDT) Extra Tube Hold for add-ons. 02/17/2025 10:01 AM EDT [facility] Comment:Auto resulted. Urine Urine specimen obtained by clean catch procedure / Unknown Non-blood Collection / Unknown 02/17/2025 02/17/2025 8:04 AM EDT Mary Barry MD LAB URINE ORDERABLES Fin al Result Performing Organization Address [facility] [address]/ZIP Co de Phone Number [facility] [address] [place] [address], [place] [phone] * (ABNORMAL) Culture urine (02/17/2025 12:00 AM EDT) Culture, Urine >=100,000 CFU/mL Klebsiella pneumoniae ssp pneumoniae(A) RACHEAL 02/20/2025 8:49 AM EDT [facility] Comment: This is an edited result. Previous organism was Gram negative bacilli on 02/18/2025 at 0811 EDT. Culture, Urine 50,000-100,000 CFU/mL Enterococcus faecalis(A) RACHEAL 02/20/2025 8:49 AM EDT [facility] Comment: The organism value [...] - GENER AL ORDERABLES Final Result [facility] [address] [place] [address], from Last 3 Months Insurance [employer] Care Teams Chrome Plater Helper Relationship Specialty Start Date End Date Louis Velazco MD [address] [place] [address] PCP - General Internal Medicine 11/06/24
== END 2025-04-22 14:16 | disposition home or self-care (01) ==
LOC: HO.HPS 13:20
PROVIDERS: PCP Internal Medicine; Visit Provider Internal Medicine
DX: I50.33 Acute on chronic diastolic (congestive) heart failure (principal); J44.9 Chronic obstructive pulmonary disease, unspecified; J96.21 Acute and chronic respiratory failure with hypoxia
CPT/HCPCS: 94618; 99214

== ENCOUNTER 2025-05-04 11:12 | Inpatient (IN) | payer MEDICARE, SELFPAY ==
--- NOTE | ~2025-05-04 | CT_ITS ---
EXAMINATION: CT HEAD NECK ANGIOGRAPHY WITH IV CONTRAST STROKE HISTORY: ams COMPARISON: Correlation is made with the unenhanced head CT performed immediately prior. TECHNIQUE: Helical axial images were obtained from the aortic arch to the vertex after intravenous injection of contrast per standard departmental protocol. MIP/3D reconstructions were obtained and reviewed. One or more of the following techniques was used for dose reduction: Automated exposure control, adjustment of the mA and/or kV according to patient size, use of iterative reconstruction technique. DLP: 693 mGy-cm FINDINGS: The examination is moderately degraded by patient motion. CTA NECK: AORTIC ARCH: The visualized portions of the arch as well as innominate, right subclavian, and left subclavian arteries show no hemodynamically significant stenosis. Right common carotid artery: There is no large vessel occlusion or hemodynamically significant stenosis. Right internal carotid artery: The proximal internal carotid artery is poorly visualized due to patient motion. There is no definite large vessel occlusion or hemodynamically significant stenosis. Left common carotid artery: There is no large vessel occlusion or hemodynamically significant stenosis. Left internal carotid artery: The proximal internal carotid artery is poorly visualized due to patient motion. There is no definite large vessel occlusion or hemodynamically significant stenosis. (Extracranial internal carotid artery stenosis estimates are based on use of distal ICA as the denominator.) Right vertebral artery: There is no large vessel occlusion or hemodynamically significant stenosis. Left vertebral artery: There is no large vessel occlusion or hemodynamically significant stenosis. CTA HEAD: Right intracranial ICA: There is no large vessel occlusion, hemodynamically significant stenosis, or aneurysm. Right CHET: There is no large vessel occlusion, hemodynamically significant stenosis, or aneurysm. Right MCA: There is no large vessel occlusion, hemodynamically significant stenosis, or aneurysm. Left intracranial ICA: There is no large vessel occlusion, hemodynamically significant stenosis, or aneurysm. Left CHET: There is no large vessel occlusion, hemodynamically significant stenosis, or aneurysm. Left MCA: There is no large vessel occlusion, hemodynamically significant stenosis, or aneurysm. Basilar artery: There is no large vessel occlusion, hemodynamically significant stenosis, or aneurysm. Superior cerebellar arteries: There is no large vessel occlusion, hemodynamically significant stenosis, or aneurysm. Right HOGSHEAD WEIGHER: There is no large vessel occlusion, hemodynamically significant stenosis, or aneurysm. Left HOGSHEAD WEIGHER: There is no large vessel occlusion, hemodynamically significant stenosis, or aneurysm. VEINS: Venous enhancement is within normal limits for this technique. SOFT TISSUES: The bilateral parotid, submandibular, and thyroid glands are unremarkable. No laryngeal abnormality is identified. There is no cervical lymphadenopathy. There are emphysematous changes at the lung apices. CT/CT angio head neck STROKE IMPRESSION: Limited examination due to patient motion. No definite large vessel occlusion, hemodynamically significant stenosis, or aneurysm in the head and neck. Electronically signed by: Mick Pagan MD 05/04/2025 12:01 PM [facility]
--- NOTE | ~2025-05-04 | XR_ITS ---
EXAMINATION: XR CHEST CLINICAL INFORMATION: cp COMPARISON: 04/20/2025 TECHNIQUE: Frontal view of the chest was obtained. FINDINGS: Diffuse airspace disease are present in the right greater than left lung. There is cardiomegaly. There are Jason B lines. Focal soft tissue calcifications are visible in the right axilla and right upper extremity and lateral to the proximal left humerus.. XR/XR chest 1V IMPRESSION: Suspected pulmonary edema with cardiomegaly. Soft tissue calcifications could be related to connective tissue disease, metabolic abnormality, parasitic infection, or other etiology. Electronically signed by: Alhaji Matos MD 05/06/2025 02:46 PM EST
--- NOTE | ~2025-05-04 | CT_ITS ---
EXAMINATION: CT HEAD WITHOUT CONTRAST (STROKE PROTOCOL) CLINICAL INFORMATION: Stroke protocol. Altered mental status. COMPARISON: None available. TECHNIQUE: Contiguous axial imaging was performed from the skull base to vertex without intravenous administration of contrast. This CT examination was performed using dose optimization techniques as appropriate, variously including the following: *Automated exposure control *Adjustment of mA and/or kV according to patient size (this includes techniques or standardized protocols for targeted exams where dose is matched to indication/reason for exam; i.e. extremities or head) *Use of iterative reconstruction technique FINDINGS: There is mild to moderate motion degradation. This limits the sensitivity of the exam. There is no evidence of intracranial hemorrhage or extra-axial fluid collection. There is no mass effect, or edema. No CT evidence of acute territorial infarct. Ventricles, sulci, and cisterns are diffusely somewhat prominent, in keeping with mildly age advanced cerebral and cerebellar volume loss. No hydrocephalus. No midline shift. Negative hyperdense MCA sign. Negative insular ribbon sign. Patchy periventricular and deep white matter hypoattenuation is consistent with moderate small vessel ischemic changes. Atheromatous calcification of the bilateral carotid siphons and V4 segments vertebral arteries bilaterally. Globes and orbital contents image normally. There are bilateral lens replacements. No extracranial soft tissue abnormalities. The paranasal sinuses, mastoid air cells, and tympanic cavities are normally aerated. No suspicious bony abnormalities. There are no acute fractures evident. There is a torus palatini. CT/CT head for STROKE IMPRESSION: Motion degraded exam. Within the confines of motion, there is no acute intracranial abnormality. This critical result was discussed with Dr. Canchola at 11:45 AM hours on 05/04/2025. It was ascertained that the content and urgency of the report was understood at the time of direct communication. Electronically signed by: Abhijeet Pearl MD 05/04/2025 11:51 AM [facility] [place]
--- NOTE | 2025-05-04 11:15 | ECG_ITS ---
Test Reason : damourd Blood Pressure : */* mmHG Vent. Rate : 36 BPM Atrial Rate : * BPM P-R Int : * ms QRS Dur : 128 ms QT Int : 700 ms P-R-T Axes : * 241 -41 degrees QTcB Int : 541 ms Idioventricular rhythm Right bundle branch block Abnormal ECG When compared with ECG of 07-Feb-2025 20:58, Idioventricular rhythm has replaced Atrial fibrillation Vent. rate has decreased by 48 bpm Referred By: Generic ED Physician Electronically Signed By: Basilio Corral
--- NOTE | 2025-05-04 11:25 | ED_ITS ---
HPI - General Adult General Chief complaint: Arrhythmia/Palpitations Stated complaint: Declining, lethargic, 32 HR per EMS Time Seen by Provider: 05/04/25 11:18 Source: patient Mode of arrival: ambulatory Limitations: no limitations History of Present Illness ED Provider: Dr. Canchola HPI narrative: 79-year-old female history of CHF, COPD, AFib on Eliquis, hypertension, NSTEMI, GERD recent admission at [facility] for CHF fluid overload and acute kidney injury presented to the ER today for 3 days of altered mentation lethargy. According to EMS the patient was refusing transport at home. Daughter was encouraged him the patient to go to the hospital due to her lethargy. Patient has had a fall today. Therefore family called EMS and the patient was sent to the ER for evaluation. Last known normal patient was recently discharged from [facility] for GHAZAL from over diuresis per the patient's daughter. However patient has been debilitated for the past couple of years and has been gradually getting weaker. Related Data Home Medications ?Medication ?Instructions ?Recorded ?Confirmed gabapentin 100 mg capsule 100 mg PO BEDTIME PRN Pain 0 09/07/24 04/22/25 rosuvastatin 5 mg tablet 2.5 mg PO BEDTIME 09/07/24 1 melatonin 5 mg tablet 15 mg PO BEDTIME PRN INSOMMI A 02/08/25 04/22/25 torsemide 20 mg tablet 40 mg PO DAILY 02/08/2504/01 acetaminophen 325 mg tablet 650 mg PO Q6H PRN 04/20/25 04/22/25 ascorbic acid (vitamin C) 500 mg 500 mg PO DAILY 04/2004/22/25 tablet dapagliflozin propanediol 10 mg 10 mg PO DAILY 5 04/22/25 tablet (Farxiga) sodium chloride 1,000 mg soluble 1,000 mg PO DAILY 04/22/25 tablet spironolactone 25 mg tablet 50 mg PO DAILY 04/20/25 ammonium lactate 12 % topical cream 1 appl topical BID 05/04/25 fluticasone furoate 200 1 ea PO DAILY 05/04/25 mcg-vilanterol 25 mcg/dose inhalation powder (Breo Ellipta) Previous Rx's ?Medication ?Instructions ?Recorded compr.stocking,knee,long,small #2 ea 01/08/24 pantoprazole 40 mg tablet,delayed 40 mg PO DAILY@0630 90 days #90 11/01/24 release tabs cholecalciferol (vitamin D3) 50 50 mcg PO DAILY 90 day s #90 caps 11/30/24 mcg (2,000 unit) capsule metoprolol succinate 50 mg 50 mg PO DAILY 90 days #90 tabs 12/04/24 tablet,extended release 24 hr potassium chloride 20 mEq/15 mL 20 meq (15 mL) PO MIKA Y #1,500 mL 12/11/24 oral liquid levalbuterol HCl 1.25 mg/3 mL 1.25 mg (3 mL) inhalatio n Q4-6H 01/13/25 solution for nebulization PRN shortness of breath or wheezing 30 days #90 mL magnesium oxide 400 mg (241.3 mg 400 mg PO BIDPC 90 da ys #180 tabs 01/25/25 magnesium) tablet apixaban 2.5 mg tablet (Eliquis) 2.5 mg PO BID #180 ta bs 02/11/25 levalbuterol tartrate 45 2 puff inhalation Q4-6H PRN 02/22/25 mcg/actuation aerosol inhaler shortness of breath 30 d ays #15 grams ferrous sulfate 325 mg (65 mg 325 mg PO BID #90 tabs 0 03/29/25 iron) tablet folic acid 800 mcg tablet 0.8 mg PO DAILY 90 days #90 tabs 03/29/25 lorazepam 0.5 mg tablet 0.5 mg PO Q8H 30 days #90 ta bs 04/08/25 tiotropium bromide 2.5 2 puff inhalation DAILY copd , 30 04/13/25 mcg/actuation mist for inhalation days #4 grams (Spiriva Respimat) amiodarone 200 mg tablet 200 mg PO DAILY 90 days #90 tabs 04/20/25 bumetanide 1 mg tablet 1 mg PO BID 30 days #60 tabs 04/20/25 benzonatate 100 mg capsule 100 mg PO TID PRN cough 7 d ays #21 04/23/25 caps Allergies Allergy/AdvReac Type Severity Reaction Status Date / Time Sulfa (Sulfonamide Allergy Intermediate nausea, Verified 05/04/25 12:02 Antibiotics) vomiting Review of Systems 2 Review of Systems: Pertinent review of systems as mentioned in HPI. All other system otherwise negative. ON LICENSE OF [facility] Past Medical History ON LICENSE OF [facility] Narrative: Medical history as mentioned in HPI Medical History Generalized weakness Acute on chronic anemia On continuous oral anticoagulation Acute dyspnea COPD (chronic obstructive pulmonary disease) Supplemental oxygen dependent Atrial fibrillation CHF (congestive heart failure) Persistent atrial fibrillation Cardiomyopathy COPD (chronic obstructive pulmonary disease) Respiratory failure with hypoxia Hypertension CHF (congestive heart failure) PAF (paroxysmal atrial fibrillation) Congestive heart failure Atrial fibrillation with rapid ventricular response Congestive heart failure Acute hypoxemic respiratory failure Encounter for cardioversion procedure Atrial fibrillation with RVR Acute exacerbation of congestive heart failure Acute on chronic hypoxic respiratory failure Acute HFrEF (heart failure with reduced ejection fraction) Chronic lung disease Skin lesion Dyslipidemia Cough due to DAISY inhibitor Neck pain GERD (gastroesophageal reflux disease) Aortic regurgitation Right hand pain Leg edema Allergic rhinitis Anxiety Surgical History Carpal tunnel syndrome, right History of bilateral cataract extraction History of partial hysterectomy Family History Family History Father Medical history unknown Mother Medical history unknown Social History Social History Household Members: None Housing: House Are you a primary patient care representative to a significant other at home: No Do you presently have visiting nurse or other home services: Yes Alcohol intake: current Alcohol intake frequency: does not drink Alcohol type: other Comment: 1:[address] Patient Tobacco Use Status: Former Tobacco user Tobacco use type: Cigarette e-Cigarette/Vaping Use: Never Used Second Hand Smoke Exposure: No Advance Directives: Yes Advance Directives on File: Yes Advance Directives Date on File: 10/30/24 service: No Current occupational status: retired Cognitive needs: No Hearing needs: No Vision needs: No Physical Exam ED Exam Exam: General: Lethargic appears acutely ill, extremity mottled and cyanotic, cyanotic lips Head: Normacephalic, atraumatic ENT: oral mucosa dry, neck supple, no tracheal deviation Cardiovascular: Bradycardic rate, regular rhythm, no murmurs, rubbing, gallops Respiratory: CTAB, no wheeze, rales, rhonchi Gastrointestinal: Soft, non distended, non tender, non guarding Extremities: Edema bilateral lower extremity with abrasions in bilateral lower extremities from falls Neurological: Difficult to assess appears to be encephalopathic Skin: Cool and dry Psychiatric: Appears encephalopathic Vital Signs: Vital Signs - 24 hr 05/04/25 12:00 Pulse Rate 35 L Respiratory Rate 8 L Blood Pressure 94/51 L BMI result Body Mass Index 21.5 Medications Administered Generic Name Dose Route Start Last Admin Trade Name Freq PRN Reason Stop Dose Admin Vancomycin HCl 2,000 mg in 500 mls @ 250 mls/hr 05/04/25 12:09 05/04/25 12:45 Vancomycin/Ns IV 05/04/25 14:08 Infused ONCE ONE Infusion Discontinued Medications Generic Name Dose Route Start Last Admin Trade Name Freq PRN Reason Stop Dose Admin Sodium Chloride 1,000 mls @ 999 mls/hr 05/04/25 11:30 05/04/25 12:45 Ns IV 05/04/25 12:30 Infused .Q1H1M MARIA D Infusion Magnesium Sulfate 2 gm in 50 mls @ 50 mls/hr 05/04/25 11:18 05/04/25 11:50 Magnesium Sulfate/H2o IV 05/04/25 12:17 Infused ONCE ONE Infusion Piperacillin Sod/Tazobactam 100 mls @ 200 mls/hr 05/04/25 12:09 05/04/25 12:41 Sod 4.5 gm/ Sodium Chloride IV 05/04/25 12:38 Not Given ONCE ONE Iohexol 70 ml 05/04/25 11:41 05/04/25 11:45 Iohexol 350 Mg/Ml 100 Ml Infus..Btl IV 05/04/25 11:42 70 ml ONCE ONE Administration Morphine Sulfate 2 mg 05/04/25 12:27 05/04/25 13:29 Morphine Sulfate 4 Mg/Ml Cartridge IVPUSH 05/04/25 12:28 2 mg ONCE ONE Administration Protocol Medical Decision Making Medical Decision Making MDM Narrative: 79-year-old female history of anemia, COPD, CHF, AFib on Eliquis, NSTEMI presented hospital today for lethargy and altered mentation. Patient has cyanosis in the lower extremities. I suspect patient likely has poor perfusion. This may be from a cardiogenic source or underlying shock. Patient does feel cold to touch. Temperature of 92 degrees rectally. Edna Hugger initiated. We did initiate a small bolus IV fluid. Patient's blood pressure noted to be hypotensive. Due to the patient's altered mentation. Stroke protocol was activated. Difficult to get a neurological exam due to patient's current mentation. CT dry scan of the head was negative for any signs of bleed. CTA head and neck was negative. I suspect this is most likely a metabolic cause. Patient's blood sugar was in the 45. Amp of D50 was given. EKG was obtained. Shows bradycardia with prolonged QTC 541. A bolus IV magnesium 2 g was given to patient. IV calcium IV bicarb was given to the patient as well. I did give patient 1 mg of Ativan atropine. Did not respond to this atropine. Discussed the case with the patient's daughter here Nga. I expressed my concern that I worried that patient is very sick. I am unsure what exactly what is going on at this point. However resuscitating her at this time. I did discuss about code status. She stated that patient had a most at reflect DNR/DNI. She is concerned about the patient's gradual decline this past 2 years. I did discuss with her a possibly a with invasive procedures. Including central line as she will likely need pressors for her blood pressure. Nga did discuss with her sister Brii who is healthcare proxy. We did discuss that we will was important for the patient was independence, mobility and being able to interact and take care of herself. Given patient's clinical presentation and her values. I made a recommendation of comfort measures for the patient. I did discuss with them that we may be able to resuscitate the patient and make her numbers look good and stabilize her to be discharged from the hospital however I worried about the quality of life afterward has been back and forth from hospital multiple time. And each of these hospitalization is making her weaker. I did do some extensive counseling of what hospice we will look like as well with the daughters. Ultimately we agreed to focused on patient's comfort to help with the ease of transitioning for the patient. Patient will be admitted to the hospital for comfort measures. CTI statement: I would not be surprised if the patient dies within 6 months if her disease course run its natural path. Prognosis: Hours to days. Differential Diagnosis Differential Diagnoses: The differential diagnosis associated with the presentation includes Hypothyroidism, CHF, Cardiogenic shock, Sepsis, UTI, Pneumonia Lab Data MDM Lab Attestation statement: I reviewed the patient's lab results. 05/04/25 11:38 05/04/25 11:38 Labs: Lab Results 05/04/25 05/04/25 05/04/25 Range/Units 11:15 11:23 11:38 WBC 12.9 H (4.8-10.8) X10*3/uL RBC 4.27 (4.20-5.50) X10*6/uL Hgb 11.0 L (12.0-16.0) g/dl Hct 39.2 (37.0-47.0) % MCV 91.8 (80.0-98.0) fL MCH 25.8 L (27.0-33.0) pg MCHC 28.1 L (31.0-35.0) g/dl RDW 25.4 H (11.0-16.0) % Plt Count 151 L (160-400) X10*3/uL MPV 9.8 (9.4-12.3) fL Immature Gran % (Auto) Cancelled Neut % (Auto) Cancelled Lymph % (Auto) Cancelled Collier % (Auto) Cancelled Eos % (Auto) Cancelled Baso % (Auto) Cancelled Lymph # (Auto) Cancelled Collier # (Auto) Cancelled Eos # (Auto) Cancelled Baso # (Auto) Cancelled Abs Immat Gran (auto) Cancelled Absolute Neuts (auto) Cancelled Absolute Nucleated RBC 0.780 H (0.0-0.012) X10*3/uL Nucleated RBC % (auto) 6.1 H (0.0-0.2) /100WBC Neutrophils % (Manual) 88 H (45-73) % Band Neutrophils % 3 (3-5) % Lymphocytes % (Manual) 1 L (20-40) % Atypical Lymphs % (Man) 1 (0-6) % Monocytes % (Manual) 7 (2-11) % Abs Neuts (Manual) 11.7 H (2.0-8.3) X10*3/uL Lymphocytes # (Manual) 0.1 L (1.2-4.9) X10*3/uL Atyp Lymphs # (Manual) 0.1 x10*3/uL Monocytes # (Manual) 0.9 (0.1-1.2) X10*3/uL Nucleated RBCs 17 H (0-0) /100WBC Toxic Vacuolation PRESENT Platelet Estimate NORMAL (NORMAL) Large Platelets PRESENT Plt Morphology Comment NOTED RBC Morphology NOTED Polychromasia 2+ (3-5) /OIF Macrocytosis 1+ (5-14) /OIF Target Cells 1+ (5-14) /OIF Ovalocytes 1+ (5-14) /OIF Acanthocytes (Spur) 1+ (0-2) /OIF Smear Tech's Comments MANUAL DIFF Hold Blue Top SEE NOTE VBG pH (7.32-7.43) VBG pCO2 mmHg VBG pO2 mmHg VBG HCO3 (22-26) mmol/L VBG O2 Saturation % VBG Base Excess mmol/L Sodium 132 L (135-145) mmol/L Potassium 5.9 H D (3.3-5.1) mmol/L Chloride 99 (96-108) mmol/L Carbon Dioxide 15 L (22-29) mmol/L Anion Gap 24 H (12-20) BUN 68 H (9-16) mg/dL Creatinine 2.02 H (0.5-1.4) mg/dL Estim Creat Clear Calc 20.0 Estimated GFR 24 POC Glucose 45 L* 98 (60-115) mg/dL Random Glucose 200 H (60-115) mg/dL Lactic Acid 9.8 H* (0.5-2.0) mmol/L Calcium (8.4-10.2) mg/dL Magnesium (1.6-2.6) mg/dL Total Bilirubin (0.0-1.0) mg/dL AST (5-31) U/L ALT (0-31) U/L Alkaline Phosphatase (39-117) U/L Total Creatine Kinase (26-140) U/L Troponin I High Sens (<3.5-17.0) ng/L NT-Pro-B Natriuret Pep (<300) pg/mL Total Protein (6.5-8.0) g/dL Albumin (3.5-5.0) g/dL Beta-Hydroxybutyrate (0.02-0.27) mmol/L TSH (0.32-4.0) uIU/mL Free T4 (0.71-1.85) ng/dL Ethyl Alcohol mg/dL 05/04/25 05/04/25 05/04/25 Range/Units 11:38 11:38 11:45 WBC (4.8-10.8) X10*3/uL RBC (4.20-5.50) X10*6/uL Hgb (12.0-16.0) g/dl Hct (37.0-47.0) % MCV (80.0-98.0) fL MCH (27.0-33.0) pg MCHC (31.0-35.0) g/dl RDW (11.0-16.0) % Plt Count (160-400) X10*3/uL MPV (9.4-12.3) fL Immature Gran % (Auto) Neut % (Auto) Lymph % (Auto) Collier % (Auto) Eos % (Auto) Baso % (Auto) Lymph # (Auto) Collier # (Auto) Eos # (Auto) Baso # (Auto) Abs Immat Gran (auto) Absolute Neuts (auto) Absolute Nucleated RBC (0.0-0.012) X10*3/uL Nucleated RBC % (auto) (0.0-0.2) /100WBC Neutrophils % (Manual) (45-73) % Band Neutrophils % (3-5) % Lymphocytes % (Manual) (20-40) % Atypical Lymphs % (Man) (0-6) % Monocytes % (Manual) (2-11) % Abs Neuts (Manual) (2.0-8.3) X10*3/uL Lymphocytes # (Manual) (1.2-4.9) X10*3/uL Atyp Lymphs # (Manual) x10*3/uL Monocytes # (Manual) (0.1-1.2) X10*3/uL Nucleated RBCs (0-0) /100WBC Toxic Vacuolation Platelet Estimate (NORMAL) Large Platelets Plt Morphology Comment RBC Morphology Polychromasia /OIF Macrocytosis /OIF Target Cells /OIF Ovalocytes /OIF Acanthocytes (Spur) /OIF Smear Tech's Comments Hold Blue Top VBG pH 7.28 L (7.32-7.43) VBG pCO2 34 mmHg VBG pO2 99 mmHg VBG HCO3 16 L (22-26) mmol/L VBG O2 Saturation 99.0 % VBG Base Excess -9.3 mmol/L Sodium (135-145) mmol/L Potassium (3.3-5.1) mmol/L Chloride (96-108) mmol/L Carbon Dioxide (22-29) mmol/L Anion Gap (12-20) BUN (9-16) mg/dL Creatinine (0.5-1.4) mg/dL Estim Creat Clear Calc Estimated GFR POC Glucose (60-115) mg/dL Random Glucose (60-115) mg/dL Lactic Acid Cancelled (0.5-2.0) mmol/L Calcium 13.5 H* D (8.4-10.2) mg/dL Magnesium 8.7 H* (1.6-2.6) mg/dL Total Bilirubin 1.4 H (0.0-1.0) mg/dL AST 73 H (5-31) U/L ALT 51 H (0-31) U/L Alkaline Phosphatase 292 H (39-117) U/L Total Creatine Kinase 129 (26-140) U/L Troponin I High Sens 38.0 H D (<3.5-17.0) ng/L NT-Pro-B Natriuret Pep 45617.4 H (<300) pg/mL Total Protein 6.2 L (6.5-8.0) g/dL Albumin 3.6 (3.5-5.0) g/dL Beta-Hydroxybutyrate 0.36 H (0.02-0.27) mmol/L TSH 7.72 H (0.32-4.0) uIU/mL Free T4 0.85 (0.71-1.85) ng/dL Ethyl Alcohol < 10 Cancelled mg/dL 05/04/25 Range/Units 12:08 WBC (4.8-10.8) X10*3/uL RBC (4.20-5.50) X10*6/uL Hgb (12.0-16.0) g/dl Hct (37.0-47.0) % MCV (80.0-98.0) fL MCH (27.0-33.0) pg MCHC (31.0-35.0) g/dl RDW (11.0-16.0) % Plt Count (160-400) X10*3/uL MPV (9.4-12.3) fL Immature Gran % (Auto) Neut % (Auto) Lymph % (Auto) Collier % (Auto) Eos % (Auto) Baso % (Auto) Lymph # (Auto) Collier # (Auto) Eos # (Auto) Baso # (Auto) Abs Immat Gran (auto) Absolute Neuts (auto) Absolute Nucleated RBC (0.0-0.012) X10*3/uL Nucleated RBC % (auto) (0.0-0.2) /100WBC Neutrophils % (Manual) (45-73) % Band Neutrophils % (3-5) % Lymphocytes % (Manual) (20-40) % Atypical Lymphs % (Man) (0-6) % Monocytes % (Manual) (2-11) % Abs Neuts (Manual) (2.0-8.3) X10*3/uL Lymphocytes # (Manual) (1.2-4.9) X10*3/uL Atyp Lymphs # (Manual) x10*3/uL Monocytes # (Manual) (0.1-1.2) X10*3/uL Nucleated RBCs (0-0) /100WBC Toxic Vacuolation Platelet Estimate (NORMAL) Large Platelets Plt Morphology Comment RBC Morphology Polychromasia /OIF Macrocytosis /OIF Target Cells /OIF Ovalocytes /OIF Acanthocytes (Spur) /OIF Smear Tech's Comments Hold Blue Top VBG pH (7.32-7.43) VBG pCO2 mmHg VBG pO2 mmHg VBG HCO3 (22-26) mmol/L VBG O2 Saturation % VBG Base Excess mmol/L Sodium (135-145) mmol/L Potassium (3.3-5.1) mmol/L Chloride (96-108) mmol/L Carbon Dioxide (22-29) mmol/L Anion Gap (12-20) BUN (9-16) mg/dL Creatinine (0.5-1.4) mg/dL Estim Creat Clear Calc Estimated GFR POC Glucose 148 H (60-115) mg/dL Random Glucose (60-115) mg/dL Lactic Acid (0.5-2.0) mmol/L Calcium (8.4-10.2) mg/dL Magnesium (1.6-2.6) mg/dL Total Bilirubin (0.0-1.0) mg/dL AST (5-31) U/L ALT (0-31) U/L Alkaline Phosphatase (39-117) U/L Total Creatine Kinase (26-140) U/L Troponin I High Sens (<3.5-17.0) ng/L NT-Pro-B Natriuret Pep (<300) pg/mL Total Protein (6.5-8.0) g/dL Albumin (3.5-5.0) g/dL Beta-Hydroxybutyrate (0.02-0.27) mmol/L TSH (0.32-4.0) uIU/mL Free T4 (0.71-1.85) ng/dL Ethyl Alcohol mg/dL Independent Interpretation I performed an independent interpretation of an: CT Scan Radiology Impression Discussion of test interpretation with radiology: I have reviewed the radiologist's reading. Chronic Conditions NSTEMI, CHF Critical Care Time Critical Care Time Critical Care Time: Yes Total Critical Care Time: 58 Attestation: Time is exclusive of separately billable procedures. Time includes: direct patient care, patient reassessment, coordination of patient care, interpretation of data (laboratory data, pulse oximetry, arterial blood gases and chest xrays), review of patient's medical records, medical consultation and documentation of patient care. Procedures excluded from critical care time: central intravenous line placement and electrocardiography. Discharge Plan Discharge Clinical Impression: CHF (congestive heart failure), Acute metabolic encephalopathy, Acute hypotension Patient Disposition: Admitted As Inpatient
[2025-05-04 11:30] LABS: Glucose, Whole Blood 98 mg/dL (60-115)
[2025-05-04 11:30] LABS: Glucose, Whole Blood 45 mg/dL (60-115)
[2025-05-04] MEDS: Magnesium Sulfate/H2O 2 GM/50 ML PIGGYBACK IV (11:30)
[2025-05-04] MEDS: iohexoL 350 MG/ML 100 ML INFUS..BTL 70 ML IV (11:45)
[2025-05-04 11:49] LABS: VBG HCO3 16 mmol/L (22-26); VBG O2 % Saturation 99.0 %
[2025-05-04 11:50] LABS: Venous Blood Gas Refer to POC result
[2025-05-04 11:51] LABS: Hematocrit 39.2 % (37.0-47.0); Hemoglobin 11.0 g/dl (12.0-16.0); Mean Corpuscular HGB Conc 28.1 g/dl (31.0-35.0); Mean Corpuscular Hemoglobin 25.8 pg (27.0-33.0); Mean Corpuscular Volume 91.8 fL (80.0-98.0); NRBC Abs Auto 0.780 X10*3/uL (0.0-0.012); Platelet Count 151 X10*3/uL (160-400); Red Blood Count 4.27 X10*6/uL (4.20-5.50); White Blood Count 12.9 X10*3/uL (4.8-10.8)
[2025-05-04 11:52] LABS: NRBC Pct Auto 6.1 /100WBC (0.0-0.2)
[2025-05-04 12:00] VITALS: BP 94/51; PULSE 35; RESP 8; BMI 21.5
--- NOTE | 2025-05-04 12:14 | PC.NURSE ---
Addendum entered by Thuy Stephen RN 05/04/25 12:47: upon arrival to ED patient bilat feet noted to be mottled / purple, patient lips and nose cyanotic, placed on 5lNC unable to get o2 saturation on the monitor, despite numerous attempts and probe changes. Original Note: patient is a 79F who presented to the ED with ems from home, called for fall this AM with bradycardia. patient had fall this morning at home, ems was called and transfer was refused. patient family member in the home noted patient became increasingly lethargic and not responding, ems was called and upon arrivl patient was found to be in bradycardic rate in the 30s, patient given atropine pre hospital hr came up to the 40s for ems, bp 122/52 rr 18. ems stated that patient was dc three days ago from [facility] for kidney issue and family states she has had a decline in condition. ems placed a #20 in and. patient in room 5, moved over onto ED stretcher, pads applied to chest, patient placed on tele noted to be bradycardic in the 30s-40s, poc 45, ivp d50 @ 1118 bicarb ivp @ 1120 calcium ivp @ 1121 magnesium 2gm @ 1130 see MAR for additional multimedia artist patient went to stat CT head, additional IV access obtained in the Lwrist #20. patient brought back into room, remained bradycardic with soft bp, additional 1mg atropine given with no effect on heart rate. rectal temp noted to be 92.3, temp sensing watson placed with 40cc urine. patient family at bedside, presented dnr/dni, decision to make patient lead burner. at this time patient is resting on her left side, supported by pillows with warm blankets and bare hugger. family at bedside with patient
[2025-05-04] MEDS: vancomycin/NS 2,000 MG/500 ML PLAST..BAG 250 MG IV (12:19)
[2025-05-04 12:25] LABS: Alanine Aminotransferase 51 U/L (0-31); Albumin Level 3.6 g/dL (3.5-5.0); Alkaline Phosphatase 292 U/L (39-117); Anion Gap 24 (12-20); Aspartate Amino Transferase 73 U/L (5-31); Blood Urea Nitrogen 68 mg/dL (9-16); Calcium 13.5 mg/dL (8.4-10.2); Carbon Dioxide 15 mmol/L (22-29); Chloride 99 mmol/L (96-108); Creatinine Clr Calc Pharmacy 20.0; Estimated Glomerular Filt Rate 24; Magnesium 8.7 mg/dL (1.6-2.6); NT Pro B Type Natriuretic Pept 12984.4 pg/mL (<300); Potassium 5.9 mmol/L (3.3-5.1); Sodium 132 mmol/L (135-145); Total Protein 6.2 g/dL (6.5-8.0); Troponin-I High Sensitivity 38.0 ng/L (<3.5-17.0)
[2025-05-04 12:27] LABS: Atypical Lymph Absolute Manual 0.1 x10*3/uL; Atypical Lymphs Percent Manual 1 % (0-6); Band Neutrophils Percent 3 % (3-5); Lymphocytes Absolute Manual 0.1 X10*3/uL (1.2-4.9); Lymphocytes Percent Manual 1 % (20-40); Monocytes Absolute Manual 0.9 X10*3/uL (0.1-1.2); Monocytes Percent Manual 7 % (2-11); Neutrophils Absolute Manual 11.7 X10*3/uL (2.0-8.3); Neutrophils Percent Manual 88 % (45-73); RBC Morphology NOTED
[2025-05-04 12:28] LABS: Large Platelet PRESENT; Macrocytosis 1+ (5-14) /OIF
[2025-05-04 12:29] LABS: Acanthocytes 1+ (0-2) /OIF; Ovalocytes 1+ (5-14) /OIF; Target Cells 1+ (5-14) /OIF
[2025-05-04 12:30] LABS: Polychromasia 2+ (3-5) /OIF; Toxic Vacuolation PRESENT
[2025-05-04 12:40] LABS: Glucose, Whole Blood 148 mg/dL (60-115)
--- NOTE | 2025-05-04 12:50 | PC.NURSE ---
comfort cart delivered by kitchen and presented to
[2025-05-04 13:02] LABS: Free T4 (Free Thyroxine) 0.85 ng/dL (0.71-1.85)
--- NOTE | 2025-05-04 13:30 | PC.NURSE ---
patient medicated per MAR for pain
[2025-05-04 13:46] LABS: Reflex Lactate? Lactic Acid Added
--- OUTSIDE RECORDS SUMMARY | 2025-05-04 14:37 | XMS_ITS | Encounter Summary ---
Author Organization [employer] Address [address] [place] [address] Care Team Providers Care Travel Counselor [employer]obile Club Name Role Phone Louis Velazco MD Primary Care Provider [phone] Encounter Details Date Type Department Care Team (Late st Contact Info) Description 11/06/2024 Lab Requisition [facility] - Main Lab 299 [facility] [place] [address] Louis Velazco MD [address] [place] [address] Acute systolic (congestive) heart failure (CMS/HCC [...] LAB CHEMISTRY METHOD 11/06/2024 11:54 AM T [facility] Comment:Results verified by [...] Resu lt [facility] [address] [place] [address], * (ABNORMAL) Complete blood count (11/06/2024 5:13 AM EDT) WBC 12.7(H) 4.8 - 10.8 K/[facility] LAB HEMETOLOGY METHOD 11/06/2024 10:49 AM EDT [facility] RBC 3.60(L) 3.80 - 4.80 M/[facility] LAB HEMETOLOGY METHOD 11/06/2024 10:49 AM EDT [facility] Hemoglobin 9.2(L) 11.5 - 16.0 g/dL LAB HEMETOLOGY METHOD 11/06/2024 10:49 AM EDT [facility] Hematocrit 30.9(L) 35.0 - 47.0 % LAB HEMETOLOGY METHOD 11/06/2024 10:49 AM EDT [facility] MCV 84.9 79.0 - 98.0 FL LAB HEMETOLOGY METHOD 11/06/2024 10:49 AM EDT [facility] MCH 25.3(L) 27.0 - 32.0 pcg LAB HEMETOLOGY METHOD 11/06/2024 10:49 AM EDT [facility] MCHC 29.8(L) 32.0 - 37.0 g/dL LAB HEMETOLOGY METHOD 11/06/2024 10:49 AM EDT [facility] RDW 16.9(H) 11.0 - 15.0 % LAB HEMETOLOGY METHOD 11/06/2024 10:49 AM EDT [facility] Platelets 202 130 - 400 K/mcL LAB HEMETOLOGY METHOD 11/06/2024 10:49 AM EDT [facility] MPV 10.6 7.0 - 11.0 FL LAB HEMETOLOGY METHOD 11/06/2024 10:49 AM EDT [facility] NRBC 0.4 <1.0 % LAB HEMETOLOGY METHOD 11/06/2024 10:49 AM [facility] NRBC Absolute 0.05 <0.10 K/mcL LAB HEMETOLOGY METHOD 11/06/2024 10:49 AM EDT [facility] Blood Venous blood specimen / Unknown Venipuncture / Unknown 11/06/2024 5:13 AM EDT 11/06/2024 10:04 AM EDT us Louis Velazco MD LAB BLOOD ORDERABLES Final Resu lt [facility] [address] [place] [address], documented in this encounter Visit Diagnoses Diagnosis Acute systolic (congestive) heart failure ([facility] V24, [facility] V28) Chronic obstructive pulmonary disease with (acute) exacerbation ([facility] V24, [facility] V28) documented in this encounter Care Teams Travel Counselor Automobile Club Relationship Specialty Start Date End Date Louis Velazco MD [address] [place] [address] PCP - General Internal Medicine 11/06/24 documented as of this encounter
--- OUTSIDE RECORDS SUMMARY | 2025-05-04 14:37 | XMS_ITS | Encounter Summary ---
Author Organization [employer] Address [address] [place] [address] Care Team Providers Care Freight Booker Name Role Phone Louis Velazco MD Primary Care Provider [phone] Encounter Details Date Type Department Care Team (Late st Contact Info) Description 03/11/2025 Lab Requisition [facility] - Main Lab 299 [facility] [place] [address] Betito Ledezma MD [address] [place] [address] Essential (primary) hypertension; Anemia, unspecified; Respiratory failure, [...] natriuretic peptide (03/12/2025 6:15 AM EDT) Pathologist [facility] BNP 1,116(H) <=100 pcg/mL LAB CHEMISTRY METHOD 03/12/2025 12:06 PM EDT [facility] Blood Venous blood specimen / Unknown Venipuncture / Unknown 03/12/2025 6:15 AM EDT 03/12/2025 11:04 AM EDT Betito Ledezma MD LAB BLOOD ORDERABLES Final Result [facility] [address] [place] [address], * (ABNORMAL) Basic metabolic panel (03/12/2025 6:15 AM EDT) [facility] Sodium 137 133 - 145 mmol/L LAB CHEMISTRY METHOD 03/12/2025 1:21 PM EDT [facility] Potassium 2.6(LL) 3.5 - 5.5 mmol/L LAB CHEMISTRY METHOD 03/12/2025 1:21 PM EDT [facility] Chloride 93(L) 96 - 110 mmol/L LAB CHEMISTRY METHOD 03/12/2025 1:21 PM EDT [facility] CO2 35(H) 21 - 32 mmol/L LAB CHEMISTRY METHOD 03/12/2025 1:21 PM EDT [facility] Anion Gap 9 3 - 11 LAB CHEMISTRY METHOD 03/12/2025 1:21 PM EDT [facility] Glucose 77 70 - 100 mg/dL LAB CHEMISTRY METHOD 03/12/2025 1:21 PM EDT [facility] BUN 12 5 - 25 mg/dL LAB CHEMISTRY METHOD 03/12/2025 1:21 PM EDT [facility] Creatinine 0.86 0.50 - 1.10 mg/dL LAB CHEMISTRY METHOD 03/12/2025 1:21 PM EDT [facility] eGFR 68 >=60 mL/min/1. 73m2 LAB CHEMISTRY METHOD 03/12/2025 1:21 PM EDT [facility] Comment:Calculation based on the Chronic Kidney Disease Epidemiology Collaboration (CKD-EPI) equation refit without adjustment for race. BUN/Creatinine Ratio 14.0 LAB CHEMISTRY METHOD 03/12/2025 1:21 PM T [facility] Calcium 8.9 8.5 - 10.5 mg/dL LAB CHEMISTRY METHOD 03/12/2025 1:21 PM T [facility] Blood Venous blood specimen / Unknown Venipuncture / Unknown 03/12/2025 6:15 AM EDT 03/12/2025 11:04 AM EDT us Betito Ledezma MD LAB BLOOD ORDERABLES Final Result [facility] [address] [place] [address], * (ABNORMAL) Complete blood count (03/12/2025 6:15 AM EDT) WBC 7.0 4.8 - 10.8 K/mcL LAB HEMETOLOGY METHOD 03/12/2025 11:27 AM EDT [facility] RBC 3.70(L) 3.80 - 4.80 M/mcL LAB HEMETOLOGY METHOD 03/12/2025 11:27 AM EDT [facility] Hemoglobin 8.3(L) 11.5 - 16.0 g/dL LAB HEMETOLOGY METHOD 03/12/2025 11:27 AM [facility] Hematocrit 29.0(L) 35.0 - 47.0 % LAB HEMETOLOGY METHOD 03/12/2025 11:27 AM [facility] MCV 78.8(L) 79.0 - 98.0 FL LAB HEMETOLOGY METHOD 03/12/2025 11:27 AM [facility] MCH 22.6(L) 27.0 - 32.0 pcg LAB HEMETOLOGY METHOD 03/12/2025 11:27 AM [facility] MCHC 28.6(L) 32.0 - 37.0 g/dL LAB HEMETOLOGY METHOD 03/12/2025 11:27 AM [facility] RDW 23.4(H) 11.0 - 15.0 % LAB HEMETOLOGY METHOD 03/12/2025 11:27 AM [facility] Platelets 252 130 - 400 K/mcL LAB HEMETOLOGY METHOD 03/12/2025 11:27 AM [facility] MPV 9.3 7.0 - 11.0 FL LAB HEMETOLOGY METHOD 03/12/2025 11:27 AM [facility] NRBC 0.0 <1.0 % LAB HEMETOLOGY METHOD 03/12/2025 11:27 AM [facility] NRBC Absolute 0.00 <0.10 K/mcL LAB HEMETOLOGY METHOD 03/12/2025 11:27 AM [facility] Blood Venous blood specimen / Unknown Venipuncture / Unknown 03/12/2025 6:15 AM EDT 03/12/2025 11:04 AM EDT Betito Ledezma MD LAB BLOOD ORDERABLES Final Result [facility] [address] [place] [address], documented in this encounter Visit Diagnoses Diagnosis Essential (primary) hypertension Unspecified essential hypertension Anemia, unspecified Respiratory failure, unspecified, unspecified whether with hypoxia or hypercapnia (CMS/HCC V24, CMS/HCC V28) Heart failure, unspecified (CMS/HCC V24, CMS/HCC V28) Heart failure, unspecified documented in this encounter Care Teams Freight Booker Relationship Specialty Start Date End Date Louis Velazco MD [address] [place] [id number] PCP - General Internal Medicine 11/06/24 documented as of this encounter
--- OUTSIDE RECORDS SUMMARY | 2025-05-04 14:37 | XMS_ITS | Patient Health Record ---
Author Organization [facility] Address [address] [place] [address] Care Team Providers Care Transportation Security Screener Name Role Phone Parul Cartagena Primary Care Provider Unavailab Mick Quiroz Unavailable [phone] Reason For Referral No Information Medications Medication [...] Problem Screening for malignant neoplasm of colon (379243162) Encounter for screening for malignant neoplasm of colon (Z12.11) Active confirmed Problem Screening for malignant neoplasm of rectum (234074848) Encounter for screening for malignant neoplasm of rectum (Z12.12) Active confirmed Problem Epigastric pain (35042990) Abdominal pain, epigastric (R10.13) Active confirmed Problem Gastroesophageal reflux disease (186247768) Gastroesophageal reflux disease, esophagitis presence not specified (K21.9) Active confirmed Problem Anemia (918784148) Anemia (D64.9) Active confir med Plan Of Treatment Future Test Test Name Order Date UPPER GI ENDOSCOPY 07/20/2016 COLONOSCOPY 07/20/2016 Insurance Providers Payer Name Payer Address Payer Phone Subscriber Number Group Number Insured Name Patient Relationship to Insured Coverage Start Date Coverage End Date [employer] [address] [place] [phone] [id number] LAZARO PAULSON Self - patient is the insured Medical (General) History Medical History History ICD Code Hypertension COPD Denies ID,DM,CVA,renal disease GERD Neg. Hemoccults in 05/2016--she does the m yearly Chest pain 07/2016--having a cardiac w/u with Dr. Reilly--ETT and Cardiac ECHO Surgical History Surgery Date(Month/Year) Hysterectomy and removal of 1 ovary 1980 Tonsils/adenoids
--- OUTSIDE RECORDS SUMMARY | 2025-05-04 14:37 | XMS_ITS | Encounter Summary ---
Author Organization [employer] Address [address] [place] [address] Care Team Providers Care Oracle Database Administrator Name Role Phone Louis Velazco MD Primary Care Provider Encounter Details Date Type Department Care Team (Late st Contact Info) Description 11/08/2024 Lab Requisition [facility] - Main Lab 299 [facility] [place] [address] Louis Velazco MD [address] [place] [phone] Acute systolic (congestive) heart failure (CMS/HCC [...] mmol/L LAB CHEMISTRY METHOD 11/09/2024 12:50 PM [facility] Potassium 3.6 3.5 - 5.5 mmol/L LAB CHEMISTRY METHOD 11/09/2024 12:50 PM [facility] Chloride 93(L) 96 - 110 mmol/L LAB CHEMISTRY METHOD 11/09/2024 12:50 PM [facility] CO2 35(H) 21 - 32 mmol/L LAB CHEMISTRY METHOD 11/09/2024 12:50 PM [facility] Anion Gap 7 3 - 11 LAB CHEMISTRY METHOD 11/09/2024 12:50 PM [facility] Glucose 73 70 - 100 mg/dL LAB CHEMISTRY METHOD 11/09/2024 12:50 PM [facility] BUN 15 5 - 25 mg/dL LAB CHEMISTRY METHOD 11/09/2024 12:50 PM [facility] Comment:Results verified by repeat testing Creatinine 0.97 0.50 - 1.10 mg/dL LAB CHEMISTRY METHOD 11/09/2024 12:50 PM [facility] eGFR 59(L) >=60 mL/min/1. 73m2 LAB CHEMISTRY METHOD 11/09/2024 12:50 PM [facility] Comment:Calculation based on the Chronic Kidney Disease Epidemiology Collaboration (CKD-EPI) equation refit without adjustment for race. BUN/Creatinine Ratio 15.5 LAB CHEMISTRY METHOD 11/09/2024 12:50 PM [facility] Calcium 9.0 8.5 - 10.5 mg/dL LAB CHEMISTRY METHOD 11/09/2024 12:50 PM [facility] AST (SGOT) 78(H) 10 - 42 unit/L LAB CHEMISTRY METHOD 11/09/2024 12:50 PM [facility] ALT (SGPT) 304(H) 10 - 60 unit/L LAB CHEMISTRY METHOD 11/09/2024 12:[address] [facility] Alkaline Phosphatase 254(H) 42 - 121 unit/L LAB CHEMISTRY METHOD 11/09/2024 12:[address] [facility] Total Protein 6.8 6.0 - 8.0 g/dL LAB CHEMISTRY METHOD 11/09/2024 12:[address] [facility] Albumin 3.8 3.2 - 5.0 g/dL LAB CHEMISTRY METHOD 11/09/2024 12:[address] [facility] Total Bilirubin 1.3 0.0 - 1.4 mg/dL LAB CHEMISTRY METHOD 11/09/2024 12:50 PM [facility] Blood Venous blood specimen / Unknown Venipuncture / Unknown 11/09/2024 6:22 AM EDT 11/09/2024 11:33 AM EDT us Louis Velazco MD LAB BLOOD ORDERABLES Final Resu lt [facility] [address] [place] [address], * (ABNORMAL) Complete blood count (11/09/2024 6:22 AM EDT) WBC 15.8(H) 4.8 - 10.8 K/mcL LAB HEMETOLOGY METHOD 11/09/2024 1:[address] [facility] RBC 4.80 3.80 - 4.80 M/mcL LAB HEMETOLOGY METHOD 11/09/2024 1:[address] [facility] Hemoglobin 12.4 11.5 - 16.0 g/dL LAB HEMETOLOGY METHOD 11/09/2024 1:[address] [facility] Hematocrit 42.1 35.0 - 47.0 % LAB HEMETOLOGY METHOD 11/09/2024 1:[address] [facility] MCV 87.2 79.0 - 98.0 FL LAB HEMETOLOGY METHOD 11/09/2024 1:[address] [facility] MCH 25.7(L) 27.0 - 32.0 pcg LAB HEMETOLOGY METHOD 11/09/2024 1:[address] [facility] MCHC 29.5(L) 32.0 - 37.0 g/dL LAB HEMETOLOGY METHOD 11/09/2024 1:[address] [facility] RDW 17.2(H) 11.0 - 15.0 % LAB HEMETOLOGY METHOD 11/09/2024 1:[address] [facility] Platelets 301 130 - 400 K/mcL LAB HEMETOLOGY METHOD 11/09/2024 1:[address] [facility] MPV 10.4 7.0 - 11.0 FL LAB HEMETOLOGY METHOD 11/09/2024 1:[address] [facility] NRBC 0.2 <1.0 % LAB HEMETOLOGY METHOD 11/09/2024 1:[address] [facility] NRBC Absolute 0.03 <0.10 K/mcL LAB HEMETOLOGY METHOD 11/[facility] Blood Venous blood specimen / Unknown Venipuncture / Unknown 11/09/2024 6:22 AM EDT 11/09/2024 11:33 AM EDT us Louis Velazco MD LAB BLOOD ORDERABLES Final Resu lt [facility] [address] [place] [address], documented in this encounter Visit Diagnoses Diagnosis Acute systolic (congestive) heart failure (CMS/HCC V24, CMS/HCC V28) Chronic obstructive pulmonary disease with (acute) exacerbation (CMS/HCC V24, CMS/HCC V28) documented in this encounter Care Teams Oracle Database Administrator Relationship Specialty Start Date End Date Louis Velazco MD [address] [place] [facility] [place] [address] PCP - General Internal Medicine 11/06/24 documented as of this encounter
--- OUTSIDE RECORDS SUMMARY | 2025-05-04 14:37 | XMS_ITS | Encounter Summary ---
Author Organization [email or web address] Address [address] [place] [address] Care Team Providers Care New Car Get Ready Mechanic Name Role Phone Louis Velazco MD Primary Care Provider [phone] Encounter Details Date Type Department Care Team (Late st Contact Info) Description 02/12/2025 Lab Requisition [facility] - Main Lab 299 [facility] [place] [address] Mary Barry MD [address] [phone] Chronic obstructive pulmonary disease, unspecified (CMS/HCC V24, [...] LAB CHEMISTRY METHOD 02/12/2025 9:40 AM EDT [facility] Potassium 4.4 3.5 - 5.5 [...] MD LAB BLOOD ORDERABLES Fin al Result [facility] [address] [place] [address], * (ABNORMAL) Complete blood count (02/12/2025 6:31 AM EDT) [facility] WBC 9.2 4.8 - 10.8 [...] LAB HEMETOLOGY METHOD 02/12/2025 9:13 AM EDT [facility] NRBC Absolute 0.11(H) <0.10 K/mcL LAB HEMETOLOGY METHOD 02/12/2025 9:13 AM EDT [facility] Blood Venous blood specimen / Unknown Venipuncture / Unknown 02/12/2025 6:31 AM EDT 02/12/2025 8:39 AM EDT us Mary Barry MD LAB BLOOD ORDERABLES Fin al Result [facility] [address] [place] [address], documented in this encounter Visit Diagnoses Diagnosis Chronic obstructive pulmonary disease, unspecified (CMS/HCC V24, CMS/HCC V28) Anemia, unspecified documented in this encounter Care Teams New Car Get Ready Mechanic Relationship Specialty Start Date End Date Louis Velazco MD [address] [place] [address] PCP - General Internal Medicine 11/06/24 documented as of this encounter
--- OUTSIDE RECORDS SUMMARY | 2025-05-04 14:37 | XMS_ITS | Encounter Summary ---
Author Organization [employer] Address [address] [place] [address] Care Team Providers Care Extension Professor Name Role Phone Louis Velazco MD Primary Care Provider [phone] Encounter Details Date Type Department Care Team (Late st Contact Info) Description 02/26/2025 Lab Requisition [facility] - Main Lab [address] [place] [address] Betito Ledezma MD [address] [place] [address] Hypokalemia; Pneumonia, unspecified organism Social History Tobacco [...] LAB CHEMISTRY METHOD 02/26/2025 11:21 AM EDT [facility] Potassium 4.0 3.5 - 5.5 mmol/L LAB CHEMISTRY METHOD 02/26/2025 11:21 AM EDT [facility] Chloride 89(L) 96 - 110 mmol/L LAB CHEMISTRY METHOD 02/26/2025 11:21 AM [facility] CO2 36(H) 21 - 32 mmol/L LAB CHEMISTRY METHOD 02/26/2025 11:21 AM [facility] Anion Gap 6 3 - 11 LAB CHEMISTRY METHOD 02/26/2025 11:21 AM [facility] Glucose 75 70 - 100 mg/dL LAB CHEMISTRY METHOD 02/26/2025 11:21 AM [facility] BUN 15 5 - 25 mg/dL LAB CHEMISTRY METHOD 02/26/2025 11:21 AM [facility] Comment:Results verified by repeat testing Creatinine 0.64 0.50 - 1.10 mg/dL LAB CHEMISTRY METHOD 02/26/2025 11:21 AM [facility] eGFR 89 >=60 mL/min/1. 73m2 LAB CHEMISTRY METHOD 02/26/2025 11:21 AM [facility] Comment:Calculation based on the Chronic Kidney Disease Epidemiology Collaboration (CKD-EPI) equation refit without adjustment for race. BUN/Creatinine Ratio 23.4 LAB CHEMISTRY METHOD 02/26/2025 11:21 AM [facility] Calcium 8.8 8.5 - 10.5 mg/dL LAB CHEMISTRY METHOD 02/26/2025 11:21 AM [facility] AST (SGOT) 40 10 - 42 unit/L LAB CHEMISTRY METHOD 02/26/2025 11:21 AM [facility] ALT (SGPT) 128(H) 10 - 60 unit/L LAB CHEMISTRY METHOD 02/26/2025 11:21 AM [facility] Comment:Results verified by repeat testing Alkaline Phosphatase 187(H) 42 - 121 unit/L LAB CHEMISTRY METHOD 02/26/2025 11:21 AM [facility] Total Protein 5.3(L) 6.0 - 8.0 g/dL LAB CHEMISTRY METHOD 02/26/2025 11:21 AM EDT [facility] Albumin 3.0(L) 3.2 - 5.0 g/dL LAB CHEMISTRY METHOD 02/26/2025 11:21 AM EDT [facility] Total Bilirubin 1.3 0.0 - 1.4 mg/dL LAB CHEMISTRY METHOD 02/26/2025 11:21 AM T [facility] Blood Venous blood specimen / Unknown Venipuncture / Unknown 02/26/2025 5:41 AM EDT 02/26/2025 9:26 AM EDT us Betito Ledezma MD LAB BLOOD ORDERABLES Final Result [facility] [address] [place] [address], [place] [phone] * (ABNORMAL) Complete blood count (02/26/2025 5:41 AM EDT) WBC 11.8(H) 4.8 - 10.8 K/mcL LAB HEMETOLOGY METHOD 02/26/2025 9:46 AM [facility] RBC 3.40(L) 3.80 - 4.80 M/mcL LAB HEMETOLOGY METHOD 02/26/2025 9:46 AM [facility] Hemoglobin 7.7(L) 11.5 - 16.0 g/dL LAB HEMETOLOGY METHOD 02/26/2025 9:46 AM [facility] Hematocrit 26.2(L) 35.0 - 47.0 % LAB HEMETOLOGY METHOD 02/26/2025 9:46 AM [facility] MCV 76.4(L) 79.0 - 98.0 FL LAB HEMETOLOGY METHOD 02/26/2025 9:46 AM [facility] MCH 22.4(L) 27.0 - 32.0 pcg LAB HEMETOLOGY METHOD 02/26/2025 9:46 AM EDT [facility] MCHC 29.4(L) 32.0 - 37.0 g/dL LAB HEMETOLOGY METHOD 02/26/2025 9:46 AM EDT [facility] RDW 22.5(H) 11.0 - 15.0 % LAB HEMETOLOGY METHOD 02/26/2025 9:46 AM EDT [facility] Platelets 134 130 - 400 K/mcL LAB HEMETOLOGY METHOD 02/26/2025 9:46 AM EDT [facility] MPV 10.2 7.0 - 11.0 FL LAB HEMETOLOGY METHOD 02/26/2025 9:46 AM EDT [facility] NRBC 0.3 <1.0 % LAB HEMETOLOGY METHOD 02/26/2025 9:46 AM EDT [facility] NRBC Absolute 0.04 <0.10 K/mcL LAB HEMETOLOGY METHOD 02/26/2025 9:46 AM EDT [facility] Blood Venous blood specimen / Unknown Venipuncture / Unknown 02/26/2025 5:41 AM EDT 02/26/2025 9:26 AM EDT us Betito Ledezma MD LAB BLOOD ORDERABLES Final Result [facility] [address] [place] [address], documented in this encounter Visit Diagnoses Diagnosis Hypokalemia Hypopotassemia Pneumonia, unspecified organism documented in this encounter Care Teams Extension Professor Relationship Specialty Start Date End Date Louis Velazco MD [address] [place] [address] PCP - General Internal Medicine 11/06/24 documented as of this encounter
--- OUTSIDE RECORDS SUMMARY | 2025-05-04 14:37 | XMS_ITS | Encounter Summary ---
Author Organization [employer] Address [address] [place] [address] Care Team Providers Care Container Shop Welder Name Role Phone Louis Velazco MD Primary Care Provider [phone] Encounter Details Date Type Department Care Team (Late st Contact Info) Description 02/17/2025 Lab Requisition [facility] - Main Lab 299 [facility] [place] [address] Mary Barry MD [address] [address] Chronic respiratory failure with hypoxia [...] Result [facility] [address] [place] [address], * (ABNORMAL) CBC auto differential (02/17/2025 5:45 AM EDT) Pathologist [facility] WBC 15.0(H) 4.8 - 10.8 K/mcL LAB HEMETOLOGY METHOD 02/17/2025 9:24 AM EDT [facility] RBC 4.10 3.80 - 4.80 M/mcL LAB HEMETOLOGY METHOD 02/17/2025 9:24 AM EDT [facility] Hemoglobin 9.2(L) 11.5 - 16.0 g/dL LAB HEMETOLOGY METHOD 02/17/2025 9:24 AM EDT [facility] Hematocrit 32.9(L) 35.0 - 47.0 % LAB HEMETOLOGY METHOD 02/17/2025 9:24 AM EDT [facility] MCV 80.0 79.0 - 98.0 FL LAB HEMETOLOGY METHOD 02/17/2025 9:24 AM [facility] MCH 22.4(L) 27.0 - 32.0 pcg LAB HEMETOLOGY METHOD 02/17/2025 9:24 AM [facility] MCHC 28.0(L) 32.0 - 37.0 g/dL LAB HEMETOLOGY METHOD 02/17/2025 9:24 AM [facility] RDW 21.8(H) 11.0 - 15.0 % LAB HEMETOLOGY METHOD 02/17/2025 9:24 AM [facility] Platelets 216 130 - 400 K/mcL LAB HEMETOLOGY METHOD 02/17/2025 9:24 AM [facility] MPV 10.6 7.0 - 11.0 FL LAB HEMETOLOGY METHOD 02/17/2025 9:24 AM [facility] NRBC 3.4(H) <1.0 % LAB HEMETOLOGY METHOD 02/17/2025 9:24 AM [facility] NRBC Absolute 0.51(H) <0.10 K/mcL LAB HEMETOLOGY METHOD 02/17/2025 9:24 AM [facility] Neutrophils Relative 83.1 % LAB HEMETOLOGY METHOD 02/17/2025 9:24 AM [facility] Comment:This is an appended report. These results have been appended to a previously preliminary verified report. Lymphocytes Relative 4.6 % LAB HEMETOLOGY METHOD 02/17/2025 9:24 AM [facility] Comment:This is an appended report. These results have been appended to a previously preliminary verified report. Monocytes Relative 11.0 % LAB HEMETOLOGY METHOD 02/17/2025 9:24 AM [facility] Comment:This is an appended report. These results have been appended to a previously preliminary verified report. Eosinophils Relative 0.0 % LAB HEMETOLOGY METHOD 02/17/2025 9:24 AM [facility] Comment:This is an appended report. These results have been appended to a previously preliminary verified report. Basophils Relative 0.1 % LAB HEMETOLOGY METHOD 02/17/2025 9:24 AM [facility] Comment:This is an appended report. These results have been appended to a previously preliminary verified report. Immature Granulocytes Relative 1.2 % LAB HEMETOLOGY METHOD 02/17/2025 9:24 AM [facility] Comment:This is an appended report. These results have been appended to a previously preliminary verified report. Neutrophils Absolute 12.43(H) 1.50 - 7.00 K/mcL LAB HEMETOLOGY METHOD 02/17/2025 9:24 AM [facility] Comment:This is an appended report. These results have been appended to a previously preliminary verified report. Lymphocytes Absolute 0.69(L) 1.00 - 5.00 K/mcL LAB HEMETOLOGY METHOD 02/17/2025 9:24 AM [facility] Comment:This is an appended report. These results have been appended to a previously preliminary verified report. Monocytes Absolute 1.65(H) 0.20 - 1.00 K/mcL LAB HEMETOLOGY METHOD 02/17/2025 9:24 AM [facility] Comment:This is an appended report. These results have been appended to a previously preliminary verified report. Eosinophils Absolute 0.00 0.00 - 0.50 K/mcL LAB HEMETOLOGY METHOD 02/17/2025 9:24 AM [facility] Comment:This is an appended report. These results have been appended to a previously preliminary verified report. Basophils Absolute 0.02 0.00 - 0.20 K/mcL LAB HEMETOLOGY METHOD 02/17/2025 9:24 AM [facility] Comment:This is an appended report. [...] Result [facility] [address] [place] [address], [place] [phone] * (ABNORMAL) Basic metabolic panel (02/17/2025 5:45 AM EDT) Sodium 129(L) 133 - 145 mmol/L LAB CHEMISTRY METHOD 02/17/2025 12:07 PM [facility] Potassium 6.3(HH) 3.5 - 5.5 mmol/L LAB CHEMISTRY METHOD 02/17/2025 12:07 PM [facility] Chloride 92(L) 96 - 110 mmol/L LAB CHEMISTRY METHOD 02/17/2025 12:07 PM [facility] CO2 22 21 - 32 mmol/L LAB CHEMISTRY METHOD 02/17/2025 12:07 PM [facility] Anion Gap 15(H) 3 - 11 LAB CHEMISTRY METHOD 02/17/2025 12:07 PM [facility] Glucose 68(L) 70 - 100 mg/dL LAB CHEMISTRY METHOD 02/17/2025 12:07 PM [facility] BUN 60(H) 5 - 25 mg/dL LAB CHEMISTRY METHOD 02/17/2025 12:07 PM EDT [facility] Creatinine 1.91(H) 0.50 - 1.10 mg/dL LAB CHEMISTRY METHOD 02/17/2025 12:07 PM EDT [facility] eGFR 26(L) >=60 mL/min/1. 73m2 LAB CHEMISTRY METHOD 02/17/2025 12:07 PM EDT [facility] Comment:Calculation based on the Chronic Kidney Disease Epidemiology Collaboration (CKD-EPI) equation refit without adjustment for race. BUN/Creatinine Ratio 31.4 LAB CHEMISTRY METHOD 02/17/2025 12:07 PM EDT [facility] Calcium 9.4 8.5 - 10.5 mg/dL LAB CHEMISTRY METHOD 02/17/2025 12:07 PM EDT [facility] Blood Venous blood specimen / Unknown Venipuncture / Unknown 02/17/2025 5:45 AM EDT 02/17/2025 8:29 AM EDT us Mary Barry MD LAB BLOOD ORDERABLES Fin al Result [facility] [address] [place] [address], documented in this encounter Visit Diagnoses Diagnosis Chronic respiratory failure with hypoxia (CMS/HCC V24, CMS/HCC V28) documented in this encounter Care Teams Container Shop Welder Relationship Specialty Start Date End Date Louis Velazco MD [address] [place] [address] PCP - General Internal Medicine 11/06/24 documented as of this encounter
--- OUTSIDE RECORDS SUMMARY | 2025-05-04 14:37 | XMS_ITS | Patient Health Record ---
Author Organization [facility] [place] Address [address] [place] [address] Care Team Providers Care Formation Fracturing Operator Name Role Phone Parul Crytsal MD Primary Care Provider Unavail able Renuka Loja Unavailable [phone] Allergies Allergen (clinical drug ingredient) Drug/Non Drug Allergy documented on EMR Reaction Allergy Type Onset Date Status sulfamethoxazole / trimethoprim Bactrim Unknown Drug Allergy Active Reason For Referral Diagnosis 1 Pain in unspecified foot (M79.673) Referring Provider First Name Parul Referring Provider Last Name Bonilla Referred Organization [facility] Jarett Referred Provider Renuka Loja Referred Address [address] [place], [place],[address], Referred Provider Specialty Podiatry Referral Priority Routine [...] atherosclerosis of arteries of lower limbs (disorder) (08952517210100991 ) Atherosclerosis of [place] artery of both lower extremities, with unspecified presence of clinical manifestation (I70.203) Active confirmed Q7(A), Q8(2B), Q9(1B,2 C) Problem Ischemic ulcer o f left foot, limited to breakdown of skin (L97.521) Active confirmed Problem Varicose veins of bilateral lower limbs (53257974900582152 ) Symptomatic varicose veins of both lower extremities (I83.893) Active confirmed Vital Signs Blood pressure diastolic 60 mm Hg 12/08/2024 Height 5ft3in in 12/08/2024 Blood pressure systolic 130 mm Hg 12/08/2024 Weight 115 lbs 12/08/2024 BMI 20.37 kg/m2 12/08/2024 Encounters Encounter Location Date Provider Diagnosis [address] [address] 10/27/2024 Renuka Perica Atherosclerosis of [place] artery of both lower extremities, with unspecified presence of clinical manifestation I70.203 ; Xerosis of skin L85.3 ; Pain in left toe(s) M79.675 ; Skin fissure R23.4 ; Ischemic ulcer of left foot, limited to breakdown of skin L97.521 ; Lower extremity edema R60.0 ; Symptomatic varicose veins of both lower extremities I83.893 and Left foot pain M79.[address] [address] 12/08/2024 Renuka Perica Atherosclerosis of [place] artery of both lower extremities, with unspecified presence of clinical manifestation I70.203 and Xerosis of skin L85.[address] [address] 08/24/2024 Renuka Perica [address] [address] 10/27/2024 Renuka Freedom Assessments Encounter Date Diagnosis (ICD Code) Assessment Notes Treatment Notes Treatment Clinical Notes Section Notes 10/27/2024 Xerosis of skin (ICD-10 - L85.3) 10/27/2024 Atherosclerosis of [place] artery of both lower extremities, with unspecified presence of clinical manifestation (ICD-10 - I70.203) Q7(A), Q8(2B), Q9(1B,2C) 12/08/2024 Xerosis of skin (ICD-10 - L85.3) 12/08/2024 Atherosclerosis of [place] artery of both lower extremities, with [...] Insured Coverage Start Date Coverage End Date [facility] [id number] [place] [id number] [id number] Yasmeen Andrews Self - patient is the insured Medical (General) History Medical History History ICD Code Anxiety Cataracts High Blood Pressure Lung disease Reflux ( GERD) Surgical History Surgery Date(Month/Year) partial hysterectomy 1973 appendectomy 1964 Hospitalization History Reason Date(Month/Year) C- short of breath 09/2024
--- OUTSIDE RECORDS SUMMARY | 2025-05-04 14:37 | XMS_ITS | Encounter Summary ---
Author Organization [employer] Address [address] [place] [address] Care Team Providers Care Layboy Tender Name Role Phone Louis Velazco MD Primary Care Provider Encounter Details Date Type Department Care Team (Late st Contact Info) Description 11/13/2024 Lab Requisition [facility] - Main Lab 299 [facility] [address] [place] [address] Louis Velazco MD [address] [place] [address] Acute on chronic diastolic (congestive) heart [...] LAB CHEMISTRY METHOD 11/13/2024 1:25 PM EDT [facility] Potassium 4.2 3.5 - 5.5 mmol/L LAB CHEMISTRY METHOD 11/13/2024 1:25 PM EDT [facility] Chloride 93(L) 96 - 110 mmol/L LAB CHEMISTRY METHOD 11/13/2024 1:25 PM EDT [facility] CO2 34(H) 21 - 32 mmol/L LAB CHEMISTRY METHOD 11/13/2024 1:25 PM EDT [facility] Anion Gap 9 3 - 11 LAB CHEMISTRY METHOD 11/13/2024 1:25 PM EDT [facility] Glucose 80 70 - 100 mg/dL LAB CHEMISTRY METHOD 11/13/2024 1:25 PM EDT [facility] BUN 12 5 - 25 mg/dL LAB CHEMISTRY METHOD 11/13/2024 1:25 PM T [facility] Creatinine 0.89 0.50 - 1.10 mg/dL LAB CHEMISTRY METHOD 11/13/2024 1:25 PM EDT [facility] eGFR 66 >=60 mL/min/1. 73m2 LAB CHEMISTRY METHOD 11/13/2024 1:25 PM EDT [facility] Comment:Calculation based on the Chronic Kidney Disease Epidemiology Collaboration (CKD-EPI) equation refit without adjustment for race. BUN/Creatinine Ratio 13.5 LAB CHEMISTRY METHOD 11/13/2024 1:25 PM T [facility] Calcium 9.3 8.5 - 10.5 mg/dL LAB CHEMISTRY METHOD 11/13/2024 1:25 PM [facility] Blood Venous blood specimen / Unknown 11/13/2024 4:49 AM EDT 11/13/2024 12:45 PM EDT us Louis Velazco MD LAB BLOOD ORDERABLES Final Resu lt [facility] [address] [place] [address], documented in this encounter Visit Diagnoses Diagnosis Acute on chronic diastolic (congestive) heart failure (CMS/HCC V24, CMS/HCC V28) documented in this encounter Care Teams Layboy Tender Relationship Specialty Start Date End Date Louis Velazco MD [address] [place] [address] PCP - General Internal Medicine 11/06/24 documented as of this encounter
--- OUTSIDE RECORDS SUMMARY | 2025-05-04 14:37 | XMS_ITS | Encounter Summary ---
Author Organization [employer] Address [address] [place] [address] Care Team Providers Care Cap Maker Name Role Phone Louis Velazco MD Primary Care Provider [phone] Encounter Details Date Type Department Care Team (Late st Contact Info) Description 03/04/2025 Lab Requisition [facility] - Main Lab [address] [place] [address] Betito Ledezma MD [address] [place] [address] Essential (primary) hypertension; Anemia, unspecified Social History [...] LAB CHEMISTRY METHOD 03/05/2025 9:53 AM EDT [facility] Potassium 3.1(L) 3.5 - 5.5 mmol/L LAB CHEMISTRY METHOD 03/05/2025 9:53 AM [facility] Chloride 90(L) 96 - 110 mmol/L LAB CHEMISTRY METHOD 03/05/2025 9:53 AM [facility] CO2 38(H) 21 - 32 mmol/L LAB CHEMISTRY METHOD 03/05/2025 9:53 AM [facility] Anion Gap 5 3 - 11 LAB CHEMISTRY METHOD 03/05/2025 9:53 AM [facility] Glucose 78 70 - 100 mg/dL LAB CHEMISTRY METHOD 03/05/2025 9:53 AM [facility] BUN 19 5 - 25 mg/dL LAB CHEMISTRY METHOD 03/05/2025 9:53 AM [facility] Creatinine 0.82 0.50 - 1.10 mg/dL LAB CHEMISTRY METHOD 03/05/2025 9:53 AM [facility] eGFR 72 >=60 mL/min/1. 73m2 LAB CHEMISTRY METHOD 03/05/2025 9:53 AM [facility] Comment:Calculation based on the Chronic Kidney Disease Epidemiology Collaboration (CKD-EPI) equation refit without adjustment for race. BUN/Creatinine Ratio 23.2 LAB CHEMISTRY METHOD 03/05/2025 9:53 AM [facility] Calcium 8.7 8.5 - 10.5 mg/dL LAB CHEMISTRY METHOD 03/05/2025 9:53 AM [facility] Blood Venous blood specimen / Unknown Venipuncture / Unknown 03/05/2025 6:56 AM EDT 03/05/2025 8:46 AM EDT us Betito Ledezma MD LAB BLOOD ORDERABLES Final Result [facility] [address] [place] [address], * (ABNORMAL) Iron (03/05/2025 6:56 AM EDT) Pathologist [facility] Iron 15(L) 40 - 150 mcg/dL LAB CHEMISTRY METHOD 03/05/2025 9:47 AM [facility] Blood Venous blood specimen / Unknown Venipuncture / Unknown 03/05/2025 6:56 AM EDT 03/05/2025 8:46 AM EDT Betito Ledezma MD LAB BLOOD ORDERABLES Final Result [facility] [address] [place] [address], * (ABNORMAL) Complete blood count (03/05/2025 6:56 AM EDT) [facility] WBC 6.6 4.8 - 10.8 K/mcL LAB HEMETOLOGY METHOD 03/05/2025 9:01 AM [facility] RBC 3.50(L) 3.80 - 4.80 M/mcL LAB HEMETOLOGY METHOD 03/05/2025 9:01 AM [facility] Hemoglobin 7.7(L) 11.5 - 16.0 g/dL LAB HEMETOLOGY METHOD 03/05/2025 9:01 AM [facility] Hematocrit 27.1(L) 35.0 - 47.0 % LAB HEMETOLOGY METHOD 03/05/2025 9:01 AM [facility] MCV 76.8(L) 79.0 - 98.0 FL LAB HEMETOLOGY METHOD 03/05/2025 9:01 AM [facility] MCH 21.8(L) 27.0 - 32.0 pcg LAB HEMETOLOGY METHOD 03/05/2025 9:01 AM [facility] MCHC 28.4(L) 32.0 - 37.0 [...] Result [facility] [address] [place] [address], documented in this encounter Visit Diagnoses Diagnosis Essential (primary) hypertension Unspecified essential hypertension Anemia, unspecified documented in this encounter Care Teams Cap Maker Relationship Specialty Start Date End Date Louis Velazco MD [address] [place] [address] PCP - General Internal Medicine 11/06/24 documented as of this encounter
--- OUTSIDE RECORDS SUMMARY | 2025-05-04 14:37 | XMS_ITS | Encounter Summary ---
Author Organization [employer] Address [address] [place] [address] Care Team Providers Care Senior Controller Name Role Phone Louis Velazco MD Primary Care Provider Encounter Details Date Type Department Care Team (Late st Contact Info) Description 03/05/2025 Lab Requisition [facility] - Main Lab [address] [place] [address] Betito Ledezma MD [address] [place] [address] Pneumonia, unspecified organism; Hyperkalemia Social History Tobacco [...] LAB CHEMISTRY METHOD 03/08/2025 12:39 PM EDT [facility] Potassium 3.5 3.5 - 5.5 mmol/L LAB CHEMISTRY METHOD 03/08/2025 12:39 PM EDT [facility] Chloride 88(L) 96 - 110 mmol/L [...] Result [facility] [address] [place] [address], * (ABNORMAL) Complete blood count (03/08/2025 9:19 [...] LAB HEMETOLOGY METHOD 03/08/2025 12:26 PM EDT [facility] Blood Venous blood specimen / Unknown Venipuncture / Unknown 03/08/2025 9:19 AM EDT 03/08/2025 10:44 AM EDT us Betito Ledezma MD LAB BLOOD ORDERABLES Final Result [facility] [address] [place] [address], documented in this encounter Visit Diagnoses Diagnosis Pneumonia, unspecified organism Hyperkalemia Hyperpotassemia documented in this encounter Care Teams Senior Controller Relationship Specialty Start Date End Date Louis Velazco MD [address] [place] [address] PCP - General Internal Medicine 11/06/24 documented as of this encounter
--- OUTSIDE RECORDS SUMMARY | 2025-05-04 14:37 | XMS_ITS | Encounter Summary ---
Author Organization [employer] Address [address] [place] [address] Care Team Providers Care Clay Pigeon Setter Name Role Phone Louis Velazco MD Primary Care Provider [phone] Encounter Details Date Type Department Care Team (Late st Contact Info) Description 11/14/2024 Lab Requisition [facility] - Main Lab 299 [facility] [place] [address] Louis Velazco MD [address] [place] [address] Acute systolic (congestive) heart failure (CMS/HCC [...] mmol/L LAB CHEMISTRY METHOD 11/16/2024 3:[address] [facility] Potassium 3.4(L) 3.5 - 5.5 mmol/L LAB CHEMISTRY METHOD 11/16/2024 3:[address] [facility] Chloride 96 96 - 110 mmol/L LAB CHEMISTRY METHOD 11/16/2024 3:[address] [facility] CO2 34(H) 21 - 32 mmol/L LAB CHEMISTRY METHOD 11/16/2024 3:[address] [facility] Anion Gap 10 3 - 11 LAB CHEMISTRY METHOD 11/16/2024 3:[address] [facility] Glucose 70 70 - 100 mg/dL LAB CHEMISTRY METHOD 11/16/2024 3:[address] [facility] BUN 9 5 - 25 mg/dL LAB CHEMISTRY METHOD 11/16/2024 3:[address] [facility] Creatinine 0.91 0.50 - 1.10 mg/dL LAB CHEMISTRY METHOD 11/16/2024 3:[address] [facility] eGFR 64 >=60 mL/min/1. 73m2 LAB CHEMISTRY METHOD 11/16/2024 3:[address] [facility] Comment:Calculation based on the Chronic Kidney Disease Epidemiology Collaboration (CKD-EPI) equation refit without adjustment for race. BUN/Creatinine Ratio 9.9 LAB CHEMISTRY METHOD 11/16/2024 3:[address] [facility] Calcium 9.0 8.5 - 10.5 mg/dL LAB CHEMISTRY METHOD 11/16/2024 3:[address] [facility] AST (SGOT) 28 10 - 42 unit/L LAB CHEMISTRY METHOD 11/16/2024 3:[address] [facility] ALT (SGPT) 53 10 - 60 unit/L LAB CHEMISTRY METHOD 11/16/2024 3:26 PM EDT [facility] Comment:Results verified by repeat testing Alkaline Phosphatase 240(H) 42 - 121 unit/L LAB CHEMISTRY METHOD 11/16/2024 3:26 PM EDT [facility] Total Protein 6.0 6.0 - 8.0 g/dL LAB CHEMISTRY METHOD 11/16/2024 3:26 PM EDT [facility] Albumin 3.0(L) 3.2 - 5.0 g/dL LAB CHEMISTRY METHOD 11/16/2024 3:26 PM EDT [facility] Total Bilirubin 0.8 0.0 - 1.4 mg/dL LAB CHEMISTRY METHOD 11/16/2024 3:26 PM EDT [facility] Blood Venous blood specimen / Unknown Venipuncture / Unknown 11/16/2024 5:42 AM EDT 11/16/2024 11:44 AM EDT us Louis Velazco MD LAB BLOOD ORDERABLES Final Resu lt [facility] [address] [place] [address], [place] [phone] * (ABNORMAL) Complete blood count (11/16/2024 5:42 AM EDT) WBC 11.3(H) 4.8 - 10.8 K/mcL LAB HEMETOLOGY METHOD 11/16/2024 3:18 PM EDT [facility] RBC 4.20 3.80 - 4.80 M/mcL LAB HEMETOLOGY METHOD 11/16/2024 3:18 PM EDT [facility] Hemoglobin 10.3(L) 11.5 - 16.0 g/dL LAB HEMETOLOGY METHOD 11/16/2024 3:18 PM EDT [facility] Hematocrit 37.0 35.0 - 47.0 % LAB HEMETOLOGY METHOD 11/16/2024 3:18 PM EDT [facility] MCV 87.7 79.0 - 98.0 FL LAB HEMETOLOGY METHOD 11/16/2024 3:18 PM EDT [facility] MCH 24.4(L) 27.0 - 32.0 pcg LAB HEMETOLOGY METHOD 11/16/2024 3:18 PM EDT [facility] MCHC 27.8(L) 32.0 - 37.0 g/dL LAB HEMETOLOGY METHOD 11/16/2024 3:18 PM EDT [facility] RDW 18.2(H) 11.0 - 15.0 % LAB HEMETOLOGY METHOD 11/16/2024 3:18 PM EDT [facility] Platelets 341 130 - 400 K/mcL LAB HEMETOLOGY METHOD 11/16/2024 3:18 PM EDT [facility] MPV 10.0 7.0 - 11.0 FL LAB HEMETOLOGY METHOD 11/16/2024 3:18 PM EDT [facility] NRBC 0.0 <1.0 % LAB HEMETOLOGY METHOD 11/16/2024 3:18 PM EDT [facility] NRBC Absolute 0.00 <0.10 K/mcL LAB HEMETOLOGY METHOD 11/16/2024 3:18 PM EDT [facility] Blood Venous blood specimen / Unknown Venipuncture / Unknown 11/16/2024 5:42 AM EDT 11/16/2024 11:44 AM EDT us Louis Velazco MD LAB BLOOD ORDERABLES Final Resu lt [facility] [address] [place] [address], [place] [phone] documented in this encounter Visit Diagnoses Diagnosis Acute systolic (congestive) heart failure (CMS/HCC V24, CMS/HCC V28) Chronic obstructive pulmonary disease with (acute) exacerbation (CMS/HCC V24, CMS/HCC V28) documented in this encounter Care Teams Clay Pigeon Setter Relationship Specialty Start Date End Date Louis Velazco MD [address] [place] [address] PCP - General Internal Medicine 11/06/24 documented as of this encounter
--- OUTSIDE RECORDS SUMMARY | 2025-05-04 14:37 | XMS_ITS | Encounter Summary ---
Author Organization [employer] Address [address] [place] [address] Care Team Providers Care Oracle Technical Architect Name Role Phone Louis Velazco MD Primary Care Provider [phone] Encounter Details Date Type Department Care Team (Late st Contact Info) Description 02/26/2025 Lab Requisition [facility] - Main Lab 299 [facility] [place] [address] Mary Barry MD [address] [address] Chronic obstructive pulmonary disease, unspecified (CMS/HCC V24, [...] unspecified documented in this encounter Care Teams Oracle Technical Architect Relationship Specialty Start Date End Date Louis Velazco MD [address] [place] [id number] PCP - General Internal Medicine 11/06/24 documented as of this encounter
--- OUTSIDE RECORDS SUMMARY | 2025-05-04 14:37 | XMS_ITS | Encounter Summary ---
Author Organization [employer] Address [address] [place] [address] Care Team Providers Care Buck Swamper Name Role Phone Louis Velazco MD Primary Care Provider [phone] Encounter Details Date Type Department Care Team (Late st Contact Info) Description 02/27/2025 Lab Requisition [facility] - Main Lab [address] [facility] [place] [address] Betito Ledezma MD [address] [place] [address] Pneumonia, unspecified organism; Hyperkalemia; Heart failure, unspecified [...] Pneumonia, unspecified organism Hyperkalemia Heart failure, unspecified ([facility] V24, [facility] V28) Respiratory failure, unspecified with hypoxia ([facility] V24, [facility] V28) Acute on chronic diastolic (congestive) heart failure ([facility] V24, [facility] V28) BASIC METABOLIC PANEL Routine 03/02/2025 9:24 AM EDT Pneumonia, unspecified organism Hyperkalemia Acute on chronic diastolic (congestive) heart failure ([facility] V24, [facility] V28) documented in this encounter Results * Hemoglobin A1c (03/02/2025 9:24 AM EDT) Pathologist [facility] Hemoglobin A1C 6.1 <6.5 % LAB CHEMISTRY METHOD 03/03/2025 10:51 AM EDT [facility] Mean Bld Glu Estim. 128 mg/dL LAB CHEMISTRY METHOD 03/03/2025 10:51 AM EDT [facility] Blood Venous blood specimen / Unknown Venipuncture / Unknown 03/02/2025 9:24 AM EDT 03/02/2025 11:23 AM EDT Betito Ledezma MD LAB BLOOD ORDERABLES Final Result [facility] [address] [place] [address], * Ferritin (03/02/2025 9:24 AM EDT) Pathologist [facility] Ferritin 63 8 - 252 ng/mL LAB CHEMISTRY METHOD 03/02/2025 4:11 PM EDT [facility] Blood Venous blood specimen / Unknown Venipuncture / Unknown 03/02/2025 9:24 AM EDT 03/02/2025 11:23 AM EDT Betito Ledezma MD LAB BLOOD ORDERABLES Final Result [facility] [address] [place] [address], [place] [phone] * (ABNORMAL) Vitamin B12 and folate (03/02/2025 9:24 AM EDT) Vitamin B-12 >2,000(H) 250 - 900 pcg/mL LAB CHEMISTRY METHOD 03/02/2025 4:11 PM EDT [facility] Folate 15.3 2.8 - 17.0 ng/ml LAB CHEMISTRY METHOD 03/02/2025 4:11 PM EDT [facility] Blood Venous blood specimen / Unknown Venipuncture / Unknown 03/02/2025 9:24 AM EDT 03/02/2025 11:23 AM EDT Betito Ledezma MD LAB BLOOD ORDERABLES Final Result [facility] [address] [place] [address], [place] [phone] * (ABNORMAL) Iron and TIBC (03/02/2025 9:24 AM EDT) Iron 20(L) 40 - 150 mcg/dL LAB CHEMISTRY METHOD 03/02/2025 4:11 PM EDT [facility] TIBC 485(H) 250 - 450 mcg/dL LAB CHEMISTRY METHOD 03/02/2025 4:11 PM EDT [facility] Iron Saturation 4(L) 15 - 50 % LAB CHEMISTRY METHOD 03/02/2025 4:11 PM EDT [facility] Blood Venous blood specimen / Unknown Venipuncture / Unknown 03/02/2025 9:24 AM EDT 03/02/2025 11:23 AM EDT Betito Ledezma MD LAB BLOOD ORDERABLES Final Result [facility] [address] [place] [address], [place] [phone] * Lipid panel with reflex to direct LDL (03/02/2025 9:24 AM EDT) Cholesterol 128 0 - 200 mg/dL LAB CHEMISTRY METHOD 03/02/2025 4:11 PM EDT [facility] Triglycerides 62 0 - 150 mg/dL LAB CHEMISTRY METHOD 03/02/2025 4:11 PM EDT [facility] HDL 69 >=40 mg/dL LAB [facility]STR[facility] LDL Calculated 47 0 - 100 mg/dL LAB CHEMISTRY METHOD 03/02/2025 4:11 PM EDT [facility] Comment:Estimated LDL Calcul ated using equation: Total cholesterol - HDL cholesterol - (Triglycerides/5) VLDL Cholesterol David 12.4 mg/dL LAB CHEMISTRY METHOD 03/02/2025 4:11 PM EDT [facility] Non HDL Chol. (LDL+VLDL) 59 <145 mg/dL LAB CHEMISTRY METHOD 03/02/2025 4:11 PM EDT [facility] Chol/HDL Ratio 1.9 0.0 - 4.4 LAB CHEMISTRY METHOD 03/02/2025 4:11 PM T [facility] Blood Venous blood specimen / Unknown Venipuncture / Unknown 03/02/2025 9:24 AM EDT 03/02/2025 11:23 AM EDT Betito Ledezma MD LAB BLOOD ORDERABLES Final Result [facility] [address] [place] [address], [place] [phone] * (ABNORMAL) Thyroid stimulating hormone (03/02/2025 9:24 AM EDT) TSH 8.29(H) 0.40 - 4.00 mcIU/mL LAB CHEMISTRY METHOD 03/02/2025 4:40 PM EDT [facility] Blood Venous blood specimen / Unknown Venipuncture / Unknown 03/02/2025 9:24 AM EDT 03/02/2025 11:23 AM EDT Betito Ledezma MD LAB BLOOD ORDERABLES Final Result [facility] [address] [place] [address], [place] [phone] * Thyroxine free (03/02/2025 9:24 AM EDT) Pathologist [facility] Free T4 1.37 0.70 - 1.80 ng/dL LAB CHEMISTRY METHOD 03/02/2025 4:40 PM EDT [facility] Blood Venous blood specimen / Unknown Venipuncture / Unknown 03/02/2025 9:24 AM EDT 03/02/2025 11:23 AM EDT Betito Ledezma MD LAB BLOOD ORDERABLES Final Result [facility] [address] [place] [address], [place] [phone] * (ABNORMAL) Complete blood count (03/02/2025 9:24 AM EDT) WBC 8.9 4.8 - 10.8 K/[facility] LAB HEMETOLOGY METHOD 03/02/2025 1:43 PM EDT [facility] RBC 3.70(L) 3.80 - 4.80 M/[facility] LAB HEMETOLOGY METHOD 03/02/2025 1:43 PM EDT [facility] Hemoglobin 8.3(L) 11.5 - 16.0 g/dL LAB HEMETOLOGY METHOD 03/02/2025 1:43 PM EDT [facility] Hematocrit 29.3(L) 35.0 - 47.0 % LAB HEMETOLOGY METHOD 03/02/2025 1:43 PM [facility] MCV 78.6(L) 79.0 - 98.0 FL LAB HEMETOLOGY METHOD 03/02[facility]2025 1[facility] MCH 22.3(L) 27.0 - 32.0 pcg LAB HEMETOLOGY METHOD 03/02/2025 1:43 PM [facility] MCHC 28.3(L) 32.0 - 37.0 g/dL LAB HEMETOLOGY METHOD 03/02/2025 1:43 PM [facility] RDW 22.7(H) 11.0 - 15.0 % LAB HEMETOLOGY METHOD 03/02/2025 1:43 [facility] Platelets 165 130 - 400 K/mcL LAB HEMETOLOGY METHOD 03/02/2025 1:43 PM [facility] MPV 9.7 7.0 - 11.0 FL LAB HEMETOLOGY METHOD 03/02/2025 1:43 PM [facility] NRBC 0.0 <1.0 % LAB HEMETOLOGY METHOD 03/02/2025 1:43 PM T [facility] NRBC Absolute 0.00 <0.10 K/mcL LAB HEMETOLOGY METHOD 03/02/2025 1:43 PM [facility] Blood Venous blood specimen / Unknown Venipuncture / Unknown 03/02/2025 9:24 AM EDT 03/02/2025 11:23 AM EDT Betito Ledezma MD LAB BLOOD ORDERABLES Final Result [facility] [address] [place] [address], [place] [phone] * (ABNORMAL) Basic metabolic panel (03/02/2025 9:24 AM EDT) Sodium 130(L) 133 - 145 mmol/L LAB CHEMISTRY METHOD 03/02/2025 3:45 PM EDT [facility] Potassium 3.3(L) 3.5 - 5.5 mmol/L LAB CHEMISTRY METHOD 03/02/2025 3:45 PM EDT [facility] Chloride 87(L) 96 - 110 mmol/L LAB CHEMISTRY METHOD 03/02/2025 3:45 PM [facility] CO2 33(H) 21 - 32 mmol/L LAB CHEMISTRY METHOD 03/02[facility]2025 3[facility] Anion Gap 10 3 - 11 LAB CHEMISTRY METHOD 03/02/2025 3:[facility] Glucose 103(H) 70 - 100 mg/dL LAB CHEMISTRY METHOD 03/02/2025 3:45 PM [facility] BUN 17 5 - 25 mg/dL LAB CHEMISTRY METHOD 03/02/2025 3:45 PM [facility] Creatinine 0.86 0.50 - 1.10 mg/dL LAB CHEMISTRY METHOD 03/02/2025 3:[facility] eGFR 68 >=60 mL/min/1. 73m2 LAB CHEMISTRY METHOD 03/02/2025 3:45 PM [facility] Comment:Calculation based on the Chronic Kidney Disease Epidemiology Collaboration (CKD-EPI) equation refit without adjustment for race. BUN/Creatinine Ratio 19.8 LAB CHEMISTRY METHOD 03/02/2025 3:45 PM [facility] Calcium 8.6 8.5 - 10.5 mg/dL LAB CHEMISTRY METHOD 03/02/2025 3:45 PM EDT [facility] Blood Venous blood specimen / Unknown Venipuncture / Unknown 03/02/2025 9:24 AM EDT 03/02/2025 11:23 AM EDT Betito Ledezma MD LAB BLOOD ORDERABLES Final Result [facility] [address] [place] [address], documented in this encounter Visit Diagnoses Diagnosis Pneumonia, unspecified organism Hyperkalemia Hyperpotassemia Heart failure, unspecified ([facility] V24, [facility] V28) Heart failure, unspecified Respiratory failure, unspecified with hypoxia ([facility] V24, [facility] V28) Acute on chronic diastolic (congestive) heart failure ([facility] V24, [facility] V28) documented in this encounter Care Teams Buck Swamper Relationship Specialty Start Date End Date Louis Velazco MD [address] [place] [address] PCP - General Internal Medicine 11/06/24 documented as of this encounter
--- OUTSIDE RECORDS SUMMARY | 2025-05-04 14:37 | XMS_ITS | Encounter Summary ---
Author Organization [employer] Address [address] [place] [address] Care Team Providers Care Physician Relations Manager Name Role Phone Louis Velazco MD Primary Care Provider [phone] Encounter Details Date Type Department Care Team (Late st Contact Info) Description 03/14/2025 Lab Requisition [facility] - Main Lab [address] [place] [address] Betito Ledezma MD [address] [place] [address] Pneumonia, unspecified organism; Hyperkalemia Social History Tobacco [...] AM EDT) WBC 7.3 4.8 - 10.8 K/[facility] LAB HEMETOLOGY METHOD 03/15/2025 11:52 AM EDT [facility] RBC 3.80 3.80 - 4.80 M/mcL LAB HEMETOLOGY METHOD 03/15/2025 11:52 AM EDT [facility] Hemoglobin 8.5(L) 11.5 - 16.0 g/dL LAB HEMETOLOGY METHOD 03/15/2025 11:52 AM [facility] Hematocrit 30.8(L) 35.0 - 47.0 % LAB HEMETOLOGY METHOD 03/15/2025 11:52 AM [facility] MCV 81.3 79.0 - 98.0 FL LAB HEMETOLOGY METHOD 03/15/2025 11:52 AM [facility] MCH 22.4(L) 27.0 - 32.0 pcg LAB HEMETOLOGY METHOD 03/15/2025 11:52 AM [facility] MCHC 27.6(L) 32.0 - 37.0 g/dL LAB HEMETOLOGY METHOD 03/15/2025 11:52 AM [facility] RDW 24.7(H) 11.0 - 15.0 % LAB HEMETOLOGY METHOD 03/15/2025 11:52 AM [facility] Platelets 244 130 - 400 K/mcL LAB HEMETOLOGY METHOD 03/15/2025 11:52 AM [facility] MPV 9.9 7.0 - 11.0 FL LAB HEMETOLOGY METHOD 03/15/2025 11:52 AM [facility] NRBC 0.0 <1.0 % LAB HEMETOLOGY METHOD 03/15/2025 11:52 AM [facility] NRBC Absolute 0.00 <0.10 K/mcL LAB HEMETOLOGY METHOD 03/15/2025 11:52 AM [facility] Blood Venous blood specimen / Unknown Venipuncture / Unknown 03/15/2025 8:26 AM EDT 03/15/2025 10:59 AM EDT us Betito Ledezma MD LAB BLOOD ORDERABLES Final Result [facility] [address] [place] [address], * (ABNORMAL) Basic metabolic panel (03/15/2025 8:26 AM EDT) Sodium 137 133 - 145 mmol/L LAB CHEMISTRY METHOD 03/15/2025 11:59 AM [facility] Potassium 3.4(L) 3.5 - 5.5 mmol/L LAB CHEMISTRY METHOD 03/15/2025 11:59 AM [facility] Chloride 95(L) 96 - 110 mmol/L LAB CHEMISTRY METHOD 03/15/2025 11:59 AM [facility] CO2 33(H) 21 - 32 mmol/L LAB CHEMISTRY METHOD 03/15/2025 11:59 AM [facility] Anion Gap 9 3 - 11 LAB CHEMISTRY METHOD 03/15/2025 11:59 AM [facility] Glucose 97 70 - 100 mg/dL LAB CHEMISTRY METHOD 03/15/2025 11:59 AM [facility] BUN 14 5 - 25 mg/dL LAB CHEMISTRY METHOD 03/15/2025 11:59 AM [facility] Creatinine 1.02 0.50 - 1.10 mg/dL LAB CHEMISTRY METHOD 03/15/2025 11:59 AM [facility] eGFR 56(L) >=60 mL/min/1. 73m2 LAB CHEMISTRY METHOD 03/15/2025 11:59 AM [facility] Comment:Calculation based on the Chronic Kidney Disease Epidemiology Collaboration (CKD-EPI) equation refit without adjustment for race. BUN/Creatinine Ratio 13.7 LAB CHEMISTRY METHOD 03/15/2025 11:59 AM [facility] Calcium 9.1 8.5 - 10.5 mg/dL LAB CHEMISTRY METHOD 03/15/2025 11:59 AM EDT [facility] Blood Venous blood specimen / Unknown Venipuncture / Unknown 03/15/2025 8:26 AM EDT 03/15/2025 10:59 AM EDT Betito Ledezma MD LAB BLOOD ORDERABLES Final Result [facility] [address] [place] [address], documented in this encounter Visit Diagnoses Diagnosis Pneumonia, unspecified organism Hyperkalemia Hyperpotassemia documented in this encounter Care Teams Physician Relations Manager Relationship Specialty Start Date End Date Louis Velaczo MD [address] [place] [address] PCP - General Internal Medicine 11/06/24 documented as of this encounter
--- OUTSIDE RECORDS SUMMARY | 2025-05-04 14:37 | XMS_ITS | Encounter Summary ---
Author Organization [employer] Address [address] [place] [address] Care Team Providers Care Machine Stone Polisher Apprentice Name Role Phone Louis Velazco MD Primary Care Provider [phone] Encounter Details Date Type Department Care Team (Late st Contact Info) Description 02/17/2025 Lab Requisition [facility] - Main Lab [address] [facility] [place] [address] Mary Barry MD [address] [address] Chronic kidney disease, stage 3b [...] ssp pneumoniae(A) RACHEAL 02/20/2025 8:49 AM EDT [facility] Comment: This is an edited result. Previous organism was Gram negative bacilli on 02/18/2025 at 0811 EDT. Culture, Urine 50,000-100,000 CFU/mL Enterococcus faecalis(A) RACHEAL 02/20/2025 8:49 AM EDT [facility] Comment: The organism value for [...] MICROBIOLOGY - GENER AL ORDERABLES Final Result [facility] [address] [place] [address], [place] [phone] * (ABNORMAL) Urinalysis with reflex microscopic and culture (02/17/2025 12:00 AM EDT) Specific [place] Urine 1.013 1.003 - 1.030 LAB URINALYSIS - AUTOMATED METHOD 02/17/2025 8:48 AM [facility] pH, Urine 5.5 5.0 - 8.0 pH LAB URINALYSIS - AUTOMATED METHOD 02/17/2025 8:48 AM [facility] Leukocytes, Urine Negative Negative LAB URINALYSIS - AUTOMATED METHOD 02/17/2025 8:48 AM [facility] Nitrite, Urine Negative Negative LAB URINALYSIS - AUTOMATED METHOD 02/17/2025 8:48 AM [facility] Protein, Urine 30(A) <=Trace mg/dL LAB URINALYSIS - AUTOMATED METHOD 02/17/2025 8:48 AM [facility] Glucose, Urine Negative Negative mg/dL LAB URINALYSIS - AUTOMATED METHOD 02/17/2025 8:48 AM [facility] Ketones, Urine Negative Negative mg/dL LAB URINALYSIS - AUTOMATED METHOD [facility] Urobilinogen, Urine 1.0 0.2 - 1.0 mg/dL LAB URINALYSIS - AUTOMATED METHOD 02/17/2025 8:48 AM [facility] Bilirubin, Urine Negative Negative LAB URINALYSIS - AUTOMATED METHOD 02/17/2025 8:48 AM [facility] Blood, Urine Negative Negative LAB URINALYSIS - AUTOMATED METHOD 02/17/2025 8:48 AM [facility] RBC, Urine 2.1 0 - 4 /HPF LAB URINALYSIS - AUTOMATED METHOD 02/17/2025 8:48 AM [facility] WBC, Urine 4.2(H) 0 - 4 /HPF LAB URINALYSIS - AUTOMATED METHOD 02/17/2025 8:48 AM [facility] Squamous Epithelial, Urine 51 0 - 60 /LPF LAB URINALYSIS - AUTOMATED METHOD 02/17/2025 8:48 AM [facility] Bacteria, Urine Many(A) Negative /HPF LAB URINALYSIS - AUTOMATED METHOD 02/17/2025 8:48 AM [facility] Hyaline Casts, Urine 2.4 0 - 3 /LPF LAB URINALYSIS - AUTOMATED METHOD 02/17/2025 8:48 AM [facility] Urine Urine specimen obtained by clean catch procedure / Unknown Non-blood Collection / Unknown 02/17/2025 02/17/2025 8:04 AM EDT us Mary Barry MD LAB URINE ORDERABLES Fin al Result [facility] [address] [place] [address], * Dutta urine culture tube (02/17/2025 12:00 AM EDT) Extra Tube Hold for add-ons. 02/17/2025 10:01 AM EDT [facility] Comment:Auto resulted. Urine Urine specimen obtained by clean catch procedure / Unknown Non-blood Collection / Unknown 02/17/2025 02/17/2025 8:04 AM EDT us Mary Barry MD LAB URINE ORDERABLES Fin al Result [facility] [address] [place] [address], documented in this encounter Visit Diagnoses Diagnosis Chronic kidney disease, stage 3b (CMS/HCC V24, CMS/HCC V28) documented in this encounter Care Teams Machine Stone Polisher Apprentice Relationship Specialty Start Date End Date Louis Velazco MD [address] [place] [address] PCP - General Internal Medicine 11/06/24 documented as of this encounter
--- OUTSIDE RECORDS SUMMARY | 2025-05-04 14:37 | XMS_ITS | Encounter Summary ---
Author Organization [employer] Address [address] [place] [address] Care Team Providers Care Rn Endoscopy Name Role Phone Louis Velazco MD Primary Care Provider [phone] Encounter Details Date Type Department Care Team (Late st Contact Info) Description 02/19/2025 Lab Requisition [facility] - Main Lab [address] [facility] [place] [address] Mary Barry MD [address] [address] Chronic obstructive pulmonary disease, unspecified (CMS/HCC V24, [...] unspecified documented in this encounter Care Teams Rn Endoscopy Relationship Specialty Start Date End Date Louis Velazco MD [address] [place] [id number] PCP - General Internal Medicine 11/06/24 documented as of this encounter
--- OUTSIDE RECORDS SUMMARY | 2025-05-04 14:37 | XMS_ITS | Encounter Summary ---
Author Organization [employer] Address [address] [place] [address] Care Team Providers Care Combatant Diver Officer Name Role Phone Louis Velazco MD Primary Care Provider [phone] Encounter Details Date Type Department Care Team (Late st Contact Info) Description 11/11/2024 Lab Requisition [facility] - Main Lab 299 [facility] [place] [address] Louis Velazco MD [address] [place] [address] Acute systolic (congestive) heart failure (CMS/HCC [...] mmol/L LAB CHEMISTRY METHOD 11/12/2024 9:28 AM [facility] Potassium 2.9(LL) 3.5 - 5.5 mmol/L LAB CHEMISTRY METHOD 11/12/2024 9:28 AM [facility] Chloride 93(L) 96 - 110 mmol/L LAB CHEMISTRY METHOD 11/12/2024 9:28 AM [facility] CO2 33(H) 21 - 32 mmol/L LAB CHEMISTRY METHOD 11/12/2024 9:28 AM [facility] Anion Gap 7 3 - 11 LAB CHEMISTRY METHOD 11/12/2024 9:28 AM [facility] Glucose 115(H) 70 - 100 mg/dL LAB CHEMISTRY METHOD 11/12/2024 9:28 AM [facility] BUN 14 5 - 25 mg/dL LAB CHEMISTRY METHOD 11/12/2024 9:28 AM [facility] Creatinine 0.87 0.50 - 1.10 mg/dL LAB CHEMISTRY METHOD 11/12/2024 9:28 AM [facility] eGFR 67 >=60 mL/min/1. 73m2 LAB CHEMISTRY METHOD 11/12/2024 9:28 AM [facility] Comment:Calculation based on the Chronic Kidney Disease Epidemiology Collaboration (CKD-EPI) equation refit without adjustment for race. BUN/Creatinine Ratio 16.1 LAB CHEMISTRY METHOD 11/12/2024 9:28 AM [facility] Calcium 9.0 8.5 - 10.5 mg/dL LAB CHEMISTRY METHOD 11/12/2024 9:28 AM [facility] Blood Venous blood specimen / Unknown Venipuncture / Unknown 11/12/2024 6:41 AM EDT 11/12/2024 8:24 AM EDT us Louis Velazco MD LAB BLOOD ORDERABLES Final Resu lt [facility] [address] [place] [address], * (ABNORMAL) Complete blood count (11/12/2024 6:41 AM EDT) WBC 14.0(H) 4.8 - 10.8 K/mcL LAB HEMETOLOGY METHOD 11/12/2024 8:50 AM EDT [facility] RBC 4.30 3.80 - 4.80 M/mcL LAB HEMETOLOGY METHOD 11/12/2024 8:50 AM EDT [facility] Hemoglobin 11.0(L) 11.5 - 16.0 g/dL LAB HEMETOLOGY METHOD 11/12/2024 8:50 AM EDT [facility] Hematocrit 36.2 35.0 - 47.0 % LAB HEMETOLOGY METHOD 11/12/2024 8:50 AM EDT [facility] MCV 83.6 79.0 - 98.0 FL LAB HEMETOLOGY METHOD 11/12/2024 8:50 AM EDT [facility] MCH 25.4(L) 27.0 - 32.0 pcg LAB HEMETOLOGY METHOD 11/12/2024 8:50 AM EDT [facility] MCHC 30.4(L) 32.0 - 37.0 g/dL LAB HEMETOLOGY METHOD 11/12/2024 8:50 AM EDT [facility] RDW 17.2(H) 11.0 - 15.0 % LAB HEMETOLOGY METHOD 11/12/2024 8:50 AM EDT [facility] Platelets 262 130 - 400 K/mcL LAB HEMETOLOGY METHOD 11/12/2024 8:50 AM EDT [facility] MPV 10.2 7.0 - 11.0 FL LAB HEMETOLOGY METHOD 11/12/2024 8:50 AM EDT [facility] NRBC 0.0 <1.0 % LAB HEMETOLOGY METHOD 11/12/2024 8:50 AM EDT [facility] NRBC Absolute 0.00 <0.10 K/mcL LAB HEMETOLOGY METHOD 11/12/2024 8:50 AM EDT [facility] Blood Venous blood specimen / Unknown Venipuncture / Unknown 11/12/2024 6:41 AM EDT 11/12/2024 8:24 AM EDT us Louis Velazco MD LAB BLOOD ORDERABLES Final Resu lt [facility] [address] [place] [address], documented in this encounter Visit Diagnoses Diagnosis Acute systolic (congestive) heart failure (CMS/HCC V24, CMS/HCC V28) Chronic obstructive pulmonary disease with (acute) exacerbation (CMS/HCC V24, CMS/HCC V28) documented in this encounter Care Teams Combatant Diver Officer Relationship Specialty Start Date End Date Louis Velazco MD [address] [place] [address] PCP - General Internal Medicine 11/06/24 documented as of this encounter
--- OUTSIDE RECORDS SUMMARY | 2025-05-04 14:37 | XMS_ITS | Encounter Summary ---
Author Organization [employer] [facility] Address [address] [place] [address] Care Team Providers Care Machine Paint Mixer Name Role Phone Louis Velazco MD Primary Care Provider [phone] Encounter Details Date Type Department Care Team (Late st Contact Info) Description 03/03/2025 Lab Requisition [facility] - Main Lab [address] [place] [address] Betito Ledezma MD [address] [place] [address] Hypokalemia Social History Tobacco Use Types Packs/Day [...] LAB CHEMISTRY METHOD 03/03/2025 10:44 AM EDT [facility] Potassium 3.7 3.5 - 5.5 mmol/L LAB CHEMISTRY METHOD 03/03/2025 10:44 AM T [facility] Chloride 88(L) 96 - 110 mmol/L LAB CHEMISTRY METHOD 03/03/2025 10:44 AM [facility] CO2 35(H) 21 - 32 mmol/L LAB CHEMISTRY METHOD 03/03/2025 10:44 AM [facility] Anion Gap 8 3 - 11 LAB CHEMISTRY METHOD 03/03/2025 10:44 AM [facility] Glucose 66(L) 70 - 100 mg/dL LAB CHEMISTRY METHOD 03/03/2025 10:44 AM [facility] BUN 19 5 - 25 mg/dL LAB CHEMISTRY METHOD 03/03/2025 10:44 AM [facility] Creatinine 0.76 0.50 - 1.10 mg/dL LAB CHEMISTRY METHOD 03/03/2025 10:44 AM [facility] LAB eGFR 79 >=60 mL/min/1. 73m2 LAB CHEMISTRY METHOD 03/03/2025 10:44 AM [facility] Comment:Calculation based on the Chronic Kidney Disease Epidemiology Collaboration (CKD-EPI) equation refit without adjustment for race. BUN/Creatinine Ratio 25.0 LAB CHEMISTRY METHOD 03/03/2025 10:44 AM [facility] Calcium 8.7 8.5 - 10.5 mg/dL LAB CHEMISTRY METHOD 03/03/2025 10:44 AM [facility] Blood Venous blood specimen / Unknown Venipuncture / Unknown 03/03/2025 6:15 AM EDT 03/03/2025 9:33 AM EDT us Betito Ledezma MD LAB BLOOD ORDERABLES Final Result [facility] [address] [place] [address], * (ABNORMAL) Complete blood count (03/03/2025 6:15 AM EDT) WBC 8.0 4.8 - 10.8 K/[facility] LAB HEMETOLOGY METHOD 03/03/2025 10:42 AM [facility] RBC 3.50(L) 3.80 - 4.80 M/mcL LAB HEMETOLOGY METHOD 03/03/2025 10:42 AM [facility] Hemoglobin 7.7(L) 11.5 - 16.0 g/dL LAB HEMETOLOGY METHOD 03/03/2025 10:42 AM [facility] Hematocrit 27.3(L) 35.0 - 47.0 % LAB HEMETOLOGY METHOD 03/03/2025 10:42 AM [facility] MCV 78.0(L) 79.0 - 98.0 FL LAB HEMETOLOGY METHOD 03/03/2025 10:42 AM [facility] MCH 22.0(L) 27.0 - 32.0 pcg LAB HEMETOLOGY METHOD 03/03/2025 10:42 AM [facility] MCHC 28.2(L) 32.0 - 37.0 g/dL LAB HEMETOLOGY METHOD 03/03/2025 10:42 AM [facility] RDW 22.0(H) 11.0 - 15.0 % LAB HEMETOLOGY METHOD 03/03/2025 10:42 AM [facility] Platelets 145 130 - 400 K/mcL LAB HEMETOLOGY METHOD 03/03/2025 10:42 AM [facility] MPV 10.0 7.0 - 11.0 FL LAB HEMETOLOGY METHOD 03/03/2025 10:42 AM [facility] NRBC 0.0 <1.0 % LAB HEMETOLOGY METHOD 03/03/2025 10:42 AM [facility] NRBC Absolute 0.00 <0.10 K/mcL LAB HEMETOLOGY METHOD 03/03/2025 10:42 AM [facility] Blood Venous blood specimen / Unknown Venipuncture / Unknown 03/03/2025 6:15 AM EDT 03/03/2025 9:33 AM EDT us Betito Ledezma MD LAB BLOOD ORDERABLES Final Result [facility] ([facility] [address] [place] [address], documented in this encounter Visit Diagnoses Diagnosis Hypokalemia Hypopotassemia documented in this encounter Care Teams Machine Paint Mixer Relationship Specialty Start Date End Date Louis Velazco MD [address] [place] [address] PCP - General Internal Medicine 11/06/24 documented as of this encounter
--- OUTSIDE RECORDS SUMMARY | 2025-05-04 14:38 | XMS_ITS | Encounter Summary ---
Author Organization [employer] Address [address] [place] [address] Care Team Providers Care Legal Executive Name Role Phone Louis Velazco MD Primary Care Provider [phone] Encounter Details Date Type Department Care Team (Late st Contact Info) Description 03/20/2025 Lab Requisition [facility] - Main Lab [address] [facility] [place] [address] Betito Ledezma MD [address] [place] [address] Pneumonia, unspecified organism; Hyperkalemia Social History Tobacco [...] Hyperpotassemia documented in this encounter Care Teams Legal Executive Relationship Specialty Start Date End Date Louis Velazco MD [address] [place] [id number] PCP - General Internal Medicine 11/06/24 documented as of this encounter
--- OUTSIDE RECORDS SUMMARY | 2025-05-04 14:38 | XMS_ITS | Encounter Summary ---
Author Organization [employer] Address [address] [place] [address] Care Team Providers Care Strainer Mill Operator Name Role Phone Louis Velazco MD Primary Care Provider [phone] Encounter Details Date Type Department Care Team (Late st Contact Info) Description 11/18/2024 Lab Requisition [facility] - Main Lab [address] [facility] [place] [address] Louis Velazco MD [address] [place] [phone] Acute systolic (congestive) heart failure (CMS/HCC [...] mmol/L LAB CHEMISTRY METHOD 11/19/2024 10:14 AM [facility] Potassium 3.3(L) 3.5 - 5.5 mmol/L LAB CHEMISTRY METHOD 11/19/2024 10:14 AM [facility] Chloride 95(L) 96 - 110 mmol/L LAB CHEMISTRY METHOD 11/19/2024 10:14 AM [facility] CO2 34(H) 21 - 32 mmol/L LAB CHEMISTRY METHOD 11/19/2024 10:14 AM [facility] Anion Gap 8 3 - 11 LAB CHEMISTRY METHOD 11/19/2024 10:14 AM [facility] Glucose 80 70 - 100 mg/dL LAB CHEMISTRY METHOD 11/19/2024 10:14 AM [facility] BUN 11 5 - 25 mg/dL LAB CHEMISTRY METHOD 11/19/2024 10:14 AM [facility] Creatinine 0.87 0.50 - 1.10 mg/dL LAB CHEMISTRY METHOD 11/19/2024 10:14 AM [facility] LAB eGFR 67 >=60 mL/min/1. 73m2 LAB CHEMISTRY METHOD 11/19/2024 10:14 AM [facility] LAB Comment:Calculation based on the Chronic Kidney Disease Epidemiology Collaboration (CKD-EPI) equation refit without adjustment for race. BUN/Creatinine Ratio 12.6 LAB CHEMISTRY METHOD 11/19/2024 10:14 AM [facility] Calcium 8.7 8.5 - 10.5 mg/dL LAB CHEMISTRY METHOD 11/19/2024 10:14 AM [facility] Blood Venous blood specimen / Unknown Venipuncture / Unknown 11/19/2024 5:36 AM EDT 11/19/2024 9:19 AM EDT us Louis Sondhi MD LAB BLOOD ORDERABLES Final Resu lt [facility] [address] [place] [address], * (ABNORMAL) Complete blood count (11/19/2024 5:36 AM EDT) WBC 9.1 4.8 - 10.8 K/mcL LAB HEMETOLOGY METHOD 11/19/2024 9:[address] [facility] RBC 3.70(L) 3.80 - 4.80 M/mcL LAB HEMETOLOGY METHOD 11/19/2024 9:[address] [facility] Hemoglobin 9.4(L) 11.5 - 16.0 g/dL LAB HEMETOLOGY METHOD 11/19/2024 9:[address] [facility] Hematocrit 31.5(L) 35.0 - 47.0 % LAB HEMETOLOGY METHOD 11/19/2024 9:[address] [facility] MCV 85.8 79.0 - 98.0 FL LAB HEMETOLOGY METHOD 11/19/2024 9:[address] [facility] MCH 25.6(L) 27.0 - 32.0 pcg LAB HEMETOLOGY METHOD 11/19/2024 9:[address] [facility] MCHC 29.8(L) 32.0 - 37.0 g/dL LAB HEMETOLOGY METHOD 11/19/2024 9:[address] [facility] RDW 17.8(H) 11.0 - 15.0 % LAB HEMETOLOGY METHOD 11/19/2024 9:[address] [facility] Platelets 304 130 - 400 K/mcL LAB HEMETOLOGY METHOD 11/19/2024 9:[address] [facility] MPV 9.6 7.0 - 11.0 FL LAB HEMETOLOGY METHOD 11/19/2024 9:[address] [facility] NRBC 0.0 <1.0 % LAB HEMETOLOGY METHOD 11/19/2024 9:[address] [facility] NRBC Absolute 0.00 <0.10 K/mcL LAB HEMETOLOGY METHOD 11/19/2024 9:[address] [facility] Blood Venous blood specimen / Unknown Venipuncture / Unknown 11/19/2024 5:36 AM EDT 11/19/2024 9:19 AM EDT us Louis Velazco MD LAB BLOOD ORDERABLES Final Resu lt [facility] [address] [place] [address], documented in this encounter Visit Diagnoses Diagnosis Acute systolic (congestive) heart failure (CMS/HCC V24, CMS/HCC V28) Chronic obstructive pulmonary disease with (acute) exacerbation (CMS/HCC V24, CMS/HCC V28) documented in this encounter Care Teams Strainer Mill Operator Relationship Specialty Start Date End Date Louis Velazco MD [address] [place] [address] PCP - General Internal Medicine 11/06/24 documented as of this encounter
--- OUTSIDE RECORDS SUMMARY | 2025-05-04 14:38 | XMS_ITS | Encounter Summary ---
Author Organization [employer] Address [address] [place] [address] Care Team Providers Care Manager English Name Role Phone Louis Velazco MD Primary Care Provider [phone] Encounter Details Date Type Department Care Team (Late st Contact Info) Description 11/21/2024 Lab Requisition [facility] - Main Lab [address] [facility] [place] [address] Louis Velazco MD [address] [place] [address] Acute systolic (congestive) heart failure [...] V28) documented in this encounter Care Teams Manager English Relationship Specialty Start Date End Date Louis Velazco MD [address] [place] [address] PCP - General Internal Medicine 11/06/24 documented as of this encounter
--- OUTSIDE RECORDS SUMMARY | 2025-05-04 14:38 | XMS_ITS | Encounter Summary ---
Author Organization [facility] Address [address] [place] [address] Care Team Providers Care Hand Sewer Shoes Name Role Phone Louis Velazco MD Primary Care Provider Encounter Details Date Type Department Care Team (Late st Contact Info) Description 03/16/2025 Lab Requisition [facility] - Main Lab [address] [place] [address] Betito Ledezma MD [address] [place] [address] Hypokalemia Social History Tobacco Use Types Packs/Day [...] Results * Potassium (03/16/2025 6:36 AM EDT) [facility] Signature Potassium 3.9 3.5 - 5.5 mmol/L LAB CHEMISTRY METHOD 03/16/2025 10:27 AM EDT [facility] Blood Venous blood specimen / Unknown Venipuncture / Unknown 03/16/2025 6:36 AM EDT 03/16/2025 8:48 AM EDT Betito Ledezma MD LAB BLOOD ORDERABLES Final Result [facility] [address] [place] [address], documented in this encounter Visit Diagnoses Diagnosis Hypokalemia Hypopotassemia documented in this encounter Care Teams Hand Sewer Shoes Relationship Specialty Start Date End Date Louis Velazco MD [address] [place] [address] PCP - General Internal Medicine 11/06/24 documented as of this encounter
--- OUTSIDE RECORDS SUMMARY | 2025-05-04 14:38 | XMS_ITS | Clinical Summary ---
Author Organization [address] Address [address] [place] [address] Phone Care Team Providers Care Business Support Assistant Name Role Phone Louis Velazco MD Primary Care Provider [phone] Encounters Date Type Department Care Team Description 03/20/2025 Lab Requisition [facility] Lab [address] [place] [phone] Betito Ledezma MD Pneumonia, unspecified organism; Hyperkalemia 03/17/2025 Lab Requisition [facility] Lab [address] [place] [phone] Betito Ledezma MD Heart failure, unspecified (CMS/HCC V24, CMS/HCC V28) 03/16/2025 Lab Requisition [facility] Lab [address] [place] [phone] Betito Ledezma MD Hypokalemia 03/14/2025 Lab Requisition [facility] Lab [address] [place] [phone] Betito Ledezma MD Pneumonia, unspecified organism; Hyperkalemia 03/11/2025 Lab Requisition [facility] Lab [address] [place] [phone] Betito Ledezma MD Essential (primary) hypertension; Anemia, unspecified; Respiratory failure, unspecified, unspecified whether with hypoxia or hypercapnia (CMS/HCC V24, CMS/HCC V28); Heart failure, unspecified (CMS/HCC V24, CMS/HCC V28) 03/05/2025 Lab Requisition [facility] Lab [address] [place] [phone] Betito Ledezma MD Pneumonia, unspecified organism; Hyperkalemia 03/04/2025 Lab Requisition [facility] Lab [address] [place] [phone] Betito Ledezma MD Essential (primary) hypertension; Anemia, unspecified 03/03/2025 Lab Requisition [facility] Lab [address] [place] [phone] Betito Ledezma MD Hypokalemia 02/27/2025 Lab Requisition [facility] Lab [address] [place] [phone] Betito Ledezma MD Pneumonia, unspecified organism; Hyperkalemia; Heart failure, unspecified (CMS/HCC V24, CMS/HCC V28); Respiratory failure, unspecified with hypoxia (CMS/HCC V24, CMS/HCC V28); Acute on chronic diastolic (congestive) heart failure (CMS/HCC V24, CMS/HCC V28) 02/26/2025 Lab Requisition [facility] Lab [address] [place] [phone] Mary Barry MD Chronic obstructive pulmonary disease, unspecified (CMS/HCC V24, CMS/HCC V28); Anemia, unspecified 02/26/2025 Lab Requisition [facility] Lab [address] [place] [phone] Betito Ledezma MD Hypokalemia; Pneumonia, unspecified organism 02/19/2025 Lab Requisition [facility] Lab [address] [place] [phone] Mary Barry MD Chronic obstructive pulmonary disease, unspecified (CMS/HCC V24, CMS/HCC V28); Anemia, unspecified 02/17/2025 Lab Requisition [facility] Lab [address] [place] [phone] Mary Barry MD Chronic respiratory failure with hypoxia ([facility] V24, [facility] V28) 02/17/2025 Lab Requisition [facility] Lab [address] [place] [phone] Mary Barry MD Chronic kidney disease, stage 3b ([facility] V24, [facility] V28) 02/13/2025 Lab Requisition [facility] Lab [address] [place] [phone] Mary Barry MD Chronic obstructive pulmonary disease, unspecified ([facility] V24, [facility] V28); Anemia, unspecified 02/12/2025 Lab Requisition [facility] Lab [address] [place] [phone] Mary Barry MD Chronic obstructive pulmonary disease, unspecified ([facility] V24, [facility] V28); Anemia, unspecified from [...] is included. WBC 7.6 4.8 - 10.8 K/[facility] LAB HEMETOLOGY METHOD 03/18/2025 9:09 AM [facility] LAB RBC 3.80 3.80 - 4.80 M/mcL LAB HEMETOLOGY METHOD 03/18/2025 9:09 AM [facility] LAB Hemoglobin 8.8(L) 11.5 - 16.0 g/dL LAB HEMETOLOGY METHOD 03/18/2025 9:09 AM [facility] LAB Hematocrit 30.9(L) 35.0 - 47.0 % LAB HEMETOLOGY METHOD 03/18/2025 9:09 AM [facility] LAB MCV 80.9 79.0 - 98.0 FL LAB HEMETOLOGY METHOD 03/18/2025 9:09 AM [facility] LAB MCH 23.0(L) 27.0 - 32.0 pcg LAB HEMETOLOGY METHOD 03/18/2025 9:09 AM [facility] LAB MCHC 28.5(L) 32.0 - 37.0 g/dL LAB HEMETOLOGY METHOD 03/18/2025 9:09 AM [facility] LAB RDW 25.1(H) 11.0 - 15.0 % LAB HEMETOLOGY METHOD 03/18/2025 9:09 AM [facility] LAB Platelets 214 130 - 400 K/mcL LAB HEMETOLOGY METHOD 03/18/2025 9:09 AM [facility] LAB MPV 10.1 7.0 - 11.0 FL LAB HEMETOLOGY METHOD 03/18/2025 9:09 AM [facility] LAB NRBC 0.0 <1.0 % LAB HEMETOLOGY METHOD 03/18/2025 9:09 AM [facility] LAB NRBC Absolute 0.00 <0.10 K/mcL LAB HEMETOLOGY METHOD 03/18/2025 9:09 AM [facility] LAB Blood Venous blood specimen / Unknown Venipuncture / Unknown 03/18/2025 6:15 AM EDT 03/18/2025 9:00 AM EDT us Betito Ledezma MD LAB BLOOD ORDERABLES Final Result Performing Organization Address City/[facility]/ZIP Co de Phone Number [facility] LAB [address] [place] [address], [place] [phone] * (ABNORMAL) B-type natriuretic peptide (03/18/2025 6:15 AM EDT) Only the most recent of2 resultswithin the time period is included. Pathologist [facility] BNP 1,065(H) <=100 pcg/mL LAB CHEMISTRY METHOD 03/18/2025 10:01 AM EDT [facility] LAB Blood Venous blood specimen / Unknown Venipuncture / Unknown 03/18/2025 6:15 AM EDT 03/18/2025 9:00 AM EDT us Betito Ledezma MD LAB BLOOD ORDERABLES Final Result Performing Organization Address [facility]/ZIP Co de Phone Number [facility] [address] [place] [address], [place] [phone] * (ABNORMAL) Comprehensive metabolic panel (03/18/2025 6:15 [...] 11 LAB CHEMISTRY METHOD 03/18/2025 9:39 AM [facility] LAB Glucose 89 70 - 100 mg/dL LAB CHEMISTRY METHOD 03/18/2025 9:39 AM [facility] LAB BUN 14 5 - 25 mg/dL LAB CHEMISTRY METHOD 03/18/2025 9:39 AM [facility] LAB Creatinine 0.93 0.50 - 1.10 mg/dL LAB CHEMISTRY METHOD 03/18/2025 9:39 AM [facility] LAB eGFR 62 >=60 mL/min/1. 73m2 LAB CHEMISTRY METHOD 03/18/2025 9:39 AM [facility] LAB Comment:Calculation based on the Chronic Kidney Disease Epidemiology Collaboration (CKD-EPI) equation refit without adjustment for race. BUN/Creatinine Ratio 15.1 LAB CHEMISTRY METHOD 03/18/2025 9:39 AM [facility] LAB Calcium 9.0 8.5 - 10.5 mg/dL LAB CHEMISTRY METHOD 03/18/2025 9:39 AM [facility] LAB AST (SGOT) 27 10 - 42 unit/L LAB CHEMISTRY METHOD 03/18/2025 9:39 AM [facility] LAB ALT (SGPT) 28 10 - 60 unit/L LAB CHEMISTRY METHOD 03/18/2025 9:39 AM [facility] LAB Alkaline Phosphatase 162(H) 42 - 121 unit/L LAB CHEMISTRY METHOD 03/18/2025 9:39 AM [facility] LAB Total Protein 6.0 6.0 - 8.0 g/dL LAB CHEMISTRY METHOD 03/18/2025 9:39 AM [facility] LAB Albumin 3.6 3.2 - 5.0 g/dL LAB CHEMISTRY METHOD 03/18/2025 9:39 AM [facility] LAB Total Bilirubin 0.8 0.0 - 1.4 mg/dL LAB CHEMISTRY METHOD 03/18/2025 9:39 AM EDT [facility] LAB Blood Venous blood specimen / Unknown Venipuncture / Unknown 03/18/2025 6:15 AM EDT 03/18/2025 9:00 AM EDT us Betito Ledezma MD LAB BLOOD ORDERABLES Final Result Performing Organization Address City/[facility]/ZIP Co de Phone Number [facility] [address] [place] [address], [place] [phone] * Potassium (03/16/2025 6:36 AM EDT) Potassium 3.9 3.5 - 5.5 mmol/L LAB CHEMISTRY METHOD 03/16/2025 10:27 AM EDT [facility] Blood Venous blood specimen / Unknown Venipuncture / Unknown 03/16/2025 6:36 AM EDT 03/16/2025 8:48 AM EDT us Betito Ledezma MD LAB BLOOD ORDERABLES Final Result Performing Organization Address City/[facility]/ZIP Co de Phone Number [facility] [address] [place] [address], [place] [phone] * (ABNORMAL) Basic metabolic panel (03/15/2025 8:26 [...] 03/15/2025 11:59 AM [facility] LAB Blood Venous blood specimen / Unknown Venipuncture / Unknown 03/15/2025 8:26 AM EDT 03/15/2025 10:59 AM EDT Betito Ledezma MD LAB BLOOD ORDERABLES Final Result [facility] [address] [place] [address], * (ABNORMAL) Iron (03/05/2025 6:56 AM EDT) Iron 15(L) 40 - 150 mcg/dL LAB CHEMISTRY METHOD 03/05/2025 9:47 AM EDT [facility] Blood Venous blood specimen / Unknown Venipuncture / Unknown 03/05/2025 6:56 AM EDT 03/05/2025 8:46 AM EDT Betito Ledezma MD LAB BLOOD ORDERABLES Final Result Performing Organization Address [facility]/ZIP Co de Phone Number [facility] [address] [place] [address], [place] [phone] * (ABNORMAL) Vitamin B12 and folate (03/02/2025 9:24 AM EDT) [facility] Vitamin B-12 >2,000(H) 250 - 900 [...] BLOOD ORDERABLES Final Result Performing Organization Address City/[facility]/ZIP Co de Phone Number [facility] [address] [place] [address], [place] [phone] * Lipid panel with reflex to direct LDL (03/02/2025 9:24 AM EDT) [facility] Cholesterol 128 0 - 200 mg/dL [...] BLOOD ORDERABLES Final Result Performing Organization Address [facility] de Phone Number [facility] [address] [place] [address], [place] [phone] * (ABNORMAL) Iron and TIBC (03/02/2025 9:24 [...] BLOOD ORDERABLES Final Result Performing Organization Address City/[facility]/ZIP Co de Phone Number [facility] [address] [place] [address], [place] [phone] * (ABNORMAL) Thyroid stimulating hormone (03/02/2025 9:24 AM EDT) Pathologist [facility] TSH 8.29(H) 0.40 - 4.00 mcIU/mL LAB CHEMISTRY METHOD 03/02/2025 4:40 PM EDT [facility] Blood Venous blood specimen / Unknown Venipuncture / Unknown 03/02/2025 9:24 AM EDT 03/02/2025 11:23 AM EDT Bettio Ledezma MD LAB BLOOD ORDERABLES Final Result [facility] [address] [place] [address], [place] [phone] * Thyroxine free (03/02/2025 9:24 AM EDT) [facility] Free T4 1.37 0.70 - 1.80 ng/dL LAB CHEMISTRY METHOD 03/02/2025 4:40 PM EDT [facility] Blood Venous blood specimen / Unknown Venipuncture / Unknown 03/02/2025 9:24 AM EDT 03/02/2025 11:23 AM EDT Betito Ledezma MD LAB BLOOD ORDERABLES Final Result [facility] [address] [place] [address], [place] [phone] * Hemoglobin A1c (03/02/2025 9:24 AM EDT) [facility] Hemoglobin A1C 6.1 <6.5 % LAB [...] BLOOD ORDERABLES Final Result Performing Organization Address [facility]/ZIP Co de Phone Number [facility] [address] [place] [address], [place] [phone] * Ferritin (03/02/2025 9:24 AM EDT) Pathologist [facility] Ferritin 63 8 - 252 ng/mL LAB CHEMISTRY METHOD 03/02/2025 4:11 PM EDT [facility] Blood Venous blood specimen / Unknown Venipuncture / Unknown 03/02/2025 9:24 AM EDT 03/02/2025 11:23 AM EDT Betito Ledezma MD LAB BLOOD ORDERABLES Final Result Performing Organization Address City/[facility]/ZIP Co de Phone Number [facility] [address] [place] [address], [place] [phone] * (ABNORMAL) RBC morphology review (02/17/2025 5:45 AM EDT) Pathologist [facility] Rbc Morphology Present( A) Consistent with indices, [...] Result [facility] [address] [place] [address], * (ABNORMAL) CBC auto differential (02/17/2025 5:45 AM EDT) WBC 15.0(H) 4.8 - 10.8 K/mcL LAB HEMETOLOGY METHOD 02/17/2025 9:24 AM EDT [facility] RBC 4.10 3.80 - 4.80 M/mcL LAB HEMETOLOGY METHOD 02/17/2025 9:24 AM EDT [facility] Hemoglobin 9.2(L) 11.5 - 16.0 g/dL LAB HEMETOLOGY METHOD 02/17/2025 9:[facility] Hematocrit 32.9(L) 35.0 - 47.0 % LAB HEMETOLOGY METHOD 02/17/2025 9:24 AM EDT [facility] MCV 80.0 79.0 - 98.0 FL LAB HEMETOLOGY METHOD 02/17/2025 9:[facility] MCH 22.4(L) 27.0 - 32.0 pcg LAB HEMETOLOGY METHOD 02/17/2025 9:24 [facility] MCHC 28.0(L) 32.0 - 37.0 g/dL LAB HEMETOLOGY METHOD 02/17/2025 9:24 [facility] RDW 21.8(H) 11.0 - 15.0 % LAB HEMETOLOGY METHOD 02/17/2025 9:24 AM [facility] Platelets 216 130 - [...] Immature Granulocytes Absolute 0.18(H) 0.00 - 0.03 K/[facility] LAB HEMETOLOGY METHOD 02/17/2025 9:24 AM EDT [facility] LAB Comment:This is an appended report. These results have been appended to a previously preliminary verified report. Blood Venous blood specimen / Unknown Venipuncture / Unknown 02/17/2025 5:45 AM EDT 02/17/2025 8:29 AM EDT us Mary Barry MD LAB BLOOD ORDERABLES Fin al Result [facility] [address] [place] [address], * (ABNORMAL) Urinalysis with reflex microscopic and culture (02/17/2025 12:00 AM EDT) Specific [place] Urine 1.013 1.003 - 1.030 LAB URINALYSIS - AUTOMATED METHOD 02/17/2025 8:48 AM [facility] pH, Urine 5.5 5.0 - 8.0 pH LAB URINALYSIS - AUTOMATED METHOD 02/17/2025 8:48 AM [facility] Leukocytes, Urine Negative Negative LAB URINALYSIS - AUTOMATED METHOD 02/17/2025 8:48 AM [facility] Nitrite, Urine Negative Negative LAB URINALYSIS - AUTOMATED METHOD 02/17/2025 8:48 AM [facility] Protein, Urine 30(A) <=Trace mg/dL LAB URINALYSIS - AUTOMATED METHOD 02/17/2025 8:48 AM [facility] Glucose, Urine Negative Negative mg/dL LAB URINALYSIS - AUTOMATED METHOD 02/17/2025 8:48 AM [facility] Ketones, Urine Negative Negative mg/dL LAB URINALYSIS - AUTOMATED METHOD 02/17/2025 8:48 AM [facility] Urobilinogen, Urine 1.0 0.2 - 1.0 mg/dL LAB URINALYSIS - AUTOMATED METHOD 02/17/2025 8:48 AM [facility] Bilirubin, Urine Negative Negative LAB URINALYSIS - AUTOMATED METHOD 02/17/2025 8:48 AM [facility] Blood, Urine Negative Negative LAB URINALYSIS - AUTOMATED METHOD 02/17/2025 8:48 AM [facility] RBC, Urine 2.1 0 - 4 /HPF LAB URINALYSIS - AUTOMATED METHOD 02/17/2025 8:48 AM [facility] WBC, Urine 4.2(H) 0 [...] ORDERABLES Fin al Result Performing Organization Address [facility]/ZIP Co de Phone Number [facility] [address] [place] [address], [place] [phone] * Dutta urine culture tube (02/17/2025 12:00 AM EDT) Extra Tube Hold for add-ons. 02/17/2025 10:01 AM EDT [facility] LAB Comment:Auto resulted. Urine Urine specimen obtained by clean catch procedure / Unknown Non-blood Collection / Unknown 02/17/2025 02/17/2025 8:04 AM EDT Mary Barry MD LAB URINE ORDERABLES Fin al Result Performing Organization Address [facility]/ZIP Co de Phone Number [facility] [address] [place] [address], [place] [phone] * (ABNORMAL) Culture urine (02/17/2025 12:00 AM [...] - GENER AL ORDERABLES Final Result [facility] LAB [address] [place] [address], from Last 3 Months Insurance [employer] Care Teams Business Support Assistant Relationship Specialty Start Date End Date Louis Velazco MD [address] [place] [address] PCP - General Internal Medicine 11/06/24
--- OUTSIDE RECORDS SUMMARY | 2025-05-04 14:38 | XMS_ITS | Encounter Summary ---
Author Organization [employer] Address [address] [place] [address] Care Team Providers Care Supervisor Drying And Winding Name Role Phone Louis Velazco MD Primary Care Provider [phone] Encounter Details Date Type Department Care Team (Late st Contact Info) Description 02/13/2025 Lab Requisition [facility] Lab [address] [facility] [place] [address] Mary Barry MD [address] [id number] Chronic obstructive pulmonary disease, unspecified (CMS/HCC V24, [...] LAB CHEMISTRY METHOD 02/15/2025 9:16 AM EDT [facility] Potassium 5.1 3.5 - 5.5 mmol/L LAB CHEMISTRY METHOD 02/15/2025 9:16 AM [facility] Chloride 96 96 - 110 mmol/L LAB CHEMISTRY METHOD 02/15/2025 9:16 AM [facility] CO2 30 21 - 32 mmol/L LAB CHEMISTRY METHOD 02/15/2025 9:16 AM [facility] Anion Gap 6 3 - 11 LAB CHEMISTRY METHOD 02/15/2025 9:16 AM [facility] Glucose 83 70 - 100 mg/dL LAB CHEMISTRY METHOD 02/15/2025 9:16 AM [facility] BUN 48(H) 5 - 25 mg/dL LAB CHEMISTRY METHOD 02/15/2025 9:16 AM [facility] Creatinine 1.36(H) 0.50 - 1.10 mg/dL LAB CHEMISTRY METHOD 02/15/2025 9:16 AM [facility] eGFR 39(L) >=60 mL/min/1. 73m2 LAB CHEMISTRY METHOD 02/15/2025 9:16 AM [facility] Comment:Calculation based on the Chronic Kidney Disease Epidemiology Collaboration (CKD-EPI) equation refit without adjustment for race. BUN/Creatinine Ratio 35.3 LAB CHEMISTRY METHOD 02/15/2025 9:16 AM [facility] Calcium 9.2 8.5 - 10.5 mg/dL LAB CHEMISTRY METHOD 02/15/2025 9:16 AM [facility] Blood Venous blood specimen / Unknown Venipuncture / Unknown 02/15/2025 5:34 AM EDT 02/15/2025 8:26 AM EDT us Mary Barry MD LAB BLOOD ORDERABLES Fin al Result [facility] [address] [place] [address], * (ABNORMAL) Complete blood count (02/15/2025 5:34 AM EDT) [facility] WBC 12.3(H) 4.8 - 10.8 K/mcL LAB HEMETOLOGY METHOD 02/15/2025 8:[facility] RBC 3.80 3.80 - 4.80 M/mcL LAB HEMETOLOGY METHOD 02/15/2025 8:45 [facility] Hemoglobin 8.4(L) 11.5 - 16.0 g/dL LAB HEMETOLOGY METHOD 02/15/2025 8:45 AM [facility] Hematocrit 30.1(L) 35.0 - 47.0 % LAB HEMETOLOGY METHOD 02/15/2025 8:45 AM [facility] MCV 78.6(L) 79.0 - 98.0 FL LAB HEMETOLOGY METHOD 02/15/2025 8:45 AM [facility] MCH 21.9(L) 27.0 - 32.0 pcg LAB HEMETOLOGY METHOD 02/15/2025 8:45 AM [facility] MCHC 27.9(L) 32.0 - 37.0 g/dL LAB HEMETOLOGY METHOD 02/15/2025 8:45 AM [facility] RDW 20.6(H) 11.0 - 15.0 % LAB HEMETOLOGY METHOD 02/15/2025 8:45 AM [facility] Platelets 224 130 - 400 K/mcL LAB HEMETOLOGY METHOD 02/15/2025 8:45 AM [facility] MPV 10.0 7.0 - 11.0 FL LAB HEMETOLOGY METHOD 02/15/2025 8:45 AM [facility] NRBC 1.0(H) <1.0 % LAB HEMETOLOGY METHOD 02/15/2025 8:45 AM EDT [facility] NRBC Absolute 0.12(H) <0.10 K/mcL LAB HEMETOLOGY METHOD 02/15/2025 8:45 AM EDT [facility] Blood Venous blood specimen / Unknown Venipuncture / Unknown 02/15/2025 5:34 AM EDT 02/15/2025 8:26 AM EDT us Mary Barry MD LAB BLOOD ORDERABLES Fin al Result [facility]) [facility] [address] [place] [address], documented in this encounter Visit Diagnoses Diagnosis Chronic obstructive pulmonary disease, unspecified (CMS/HCC V24, CMS/HCC V28) Anemia, unspecified documented in this encounter Care Teams Supervisor Drying And Winding Relationship Specialty Start Date End Date Louis Velazco MD [address] [place] [address] PCP - General Internal Medicine 11/06/24 documented as of this encounter
--- OUTSIDE RECORDS SUMMARY | 2025-05-04 14:38 | XMS_ITS | Encounter Summary ---
Author Organization Remote Address [address] [place] [address] Care Team Providers Care Compounder Flavorings Name Role Phone Louis Velazco MD Primary Care Provider [phone] Encounter Details Date Type Department Care Team (Late st Contact Info) Description 03/17/2025 Lab Requisition [facility] - Main Lab [address] [facility] [place] [address] Betito Ledezma MD [address] [place] [address] Heart failure, unspecified (CMS/HCC V24, CMS/HCC V28) [...] pcg/mL LAB CHEMISTRY METHOD 03/18/2025 10:01 AM [facility] Blood Venous blood specimen / Unknown Venipuncture / Unknown 03/18/2025 6:15 AM EDT 03/18/2025 9:00 AM EDT us Betito Ledezma MD LAB BLOOD ORDERABLES Final Result [facility] [address] [place] [address], [place] [phone] * (ABNORMAL) Comprehensive metabolic panel (03/18/2025 6:15 AM EDT) Sodium 139 133 - 145 mmol/L LAB CHEMISTRY METHOD 03/18/2025 9:39 AM [facility] Potassium 3.1(L) 3.5 - 5.5 mmol/L LAB CHEMISTRY METHOD 03/18/2025 9:39 AM [facility] Chloride 98 96 - 110 mmol/L LAB CHEMISTRY METHOD 03/18/2025 9:39 AM [facility] CO2 35(H) 21 - 32 mmol/L LAB CHEMISTRY METHOD 03/18/2025 9:39 AM [facility] Anion Gap 6 3 - 11 LAB CHEMISTRY METHOD 03/18/2025 9:39 AM [facility] Glucose 89 70 - 100 mg/dL LAB CHEMISTRY METHOD 03/18/2025 9:39 AM [facility] BUN 14 5 - 25 mg/dL LAB CHEMISTRY METHOD 03/18/2025 9:39 AM [facility] Creatinine 0.93 0.50 - 1.10 mg/dL LAB CHEMISTRY METHOD 03/18/2025 9:39 AM [facility] eGFR 62 >=60 mL/min/1. 73m2 LAB CHEMISTRY METHOD 03/18/2025 9:39 AM EDT [facility] Comment:Calculation based on the Chronic Kidney Disease Epidemiology Collaboration (CKD-EPI) equation refit without adjustment for race. BUN/Creatinine Ratio 15.1 LAB CHEMISTRY METHOD 03/18/2025 9:39 AM [facility] Calcium 9.0 8.5 - 10.5 mg/dL LAB CHEMISTRY METHOD 03/18/2025 9:39 AM [facility] AST (SGOT) 27 10 - 42 unit/L LAB CHEMISTRY METHOD 03/18/2025 9:39 AM [facility] ALT (SGPT) 28 10 - 60 unit/L LAB CHEMISTRY METHOD 03/18/2025 9:39 AM [facility] Alkaline Phosphatase 162(H) 42 - 121 unit/L LAB CHEMISTRY METHOD 03/18/2025 9:39 AM [facility] Total Protein 6.0 6.0 - 8.0 g/dL LAB CHEMISTRY METHOD 03/18/2025 9:39 AM [facility] Albumin 3.6 3.2 - 5.0 g/dL LAB CHEMISTRY METHOD 03/18/2025 9:39 AM [facility] Total Bilirubin 0.8 0.0 - 1.4 mg/dL LAB CHEMISTRY METHOD 03/18/2025 9:39 AM [facility] Blood Venous blood specimen / Unknown Venipuncture / Unknown 03/18/2025 6:15 AM EDT 03/18/2025 9:00 AM EDT us Betito Ledezma MD LAB BLOOD ORDERABLES Final Result [facility] [address] [place] [address], [place] [phone] * (ABNORMAL) Complete blood count (03/18/2025 6:15 AM EDT) WBC 7.6 4.8 - 10.8 K/mcL LAB HEMETOLOGY METHOD 03/18/2025 9:09 AM [facility] RBC 3.80 3.80 - 4.80 M/mcL LAB HEMETOLOGY METHOD 03/18/2025 9:09 AM [facility] Hemoglobin 8.8(L) 11.5 - 16.0 g/dL LAB HEMETOLOGY METHOD 03/18/2025 9:09 AM [facility] Hematocrit 30.9(L) 35.0 - 47.0 % LAB HEMETOLOGY METHOD 03/18/2025 9:09 AM [facility] MCV 80.9 79.0 - 98.0 FL LAB HEMETOLOGY METHOD 03/18/2025 9:09 AM [facility] MCH 23.0(L) 27.0 - 32.0 pcg LAB HEMETOLOGY METHOD 03/18/2025 9:09 AM [facility] MCHC 28.5(L) 32.0 - 37.0 g/dL LAB HEMETOLOGY METHOD 03/18/2025 9:09 AM [facility] RDW 25.1(H) 11.0 - 15.0 % LAB HEMETOLOGY METHOD 03/18/2025 9:09 AM [facility] Platelets 214 130 - 400 K/mcL LAB HEMETOLOGY METHOD 03/18/2025 9:09 AM [facility] MPV 10.1 7.0 - 11.0 FL LAB HEMETOLOGY METHOD 03/18/2025 9:09 AM [facility] NRBC 0.0 <1.0 % LAB HEMETOLOGY METHOD 03/18/2025 9:09 AM [facility] NRBC Absolute 0.00 <0.10 K/mcL LAB HEMETOLOGY METHOD 03/18/2025 9:09 AM [facility] Blood Venous blood specimen / Unknown Venipuncture / Unknown 03/18/2025 6:15 AM EDT 03/18/2025 9:00 AM EDT Betito Ledezma MD LAB BLOOD ORDERABLES Final Result [facility] [address] [place] [address], documented in this encounter Visit Diagnoses Diagnosis Heart failure, unspecified (CMS/HCC V24, CMS/HCC V28) Heart failure, unspecified documented in this encounter Care Teams Compounder Flavorings Relationship Specialty Start Date End Date Louis Velazco MD [address] [place] [address] PCP - General Internal Medicine 11/06/24 documented as of this encounter
--- NOTE | 2025-05-04 14:43 | PHA.MEDREC ---
Pharmacy Consult ? Medication Reconciliation Pharmacy has completed the medication reconciliation. Utilized list from [email or web address]. Patients family also confirmed patient to be on breo and metoprolol.
--- NOTE | 2025-05-04 14:59 | PC.NURSE ---
patient transfered into hospital bed for comfort, moved into private room. family at bedside
[2025-05-04 15:00] VITALS: PULSE 35; RESP 16
[2025-05-04 15:46] LABS: INR Whole Blood 2.9 (0.9-1.1); Prothrombin Time Whole Blood 34.8 sec (11.1-13.5)
[2025-05-04 16:00] VITALS: RESP 20
--- NOTE | 2025-05-04 16:01 | PM.IMHP ---
History of Present Illness Date of Service: 05/04/25 Chief Complaint: Hypotension 79-year-old woman presenting to the ER with altered mental status and lethargy. Patient was recently treated at [facility] for congestive heart failure. Patient presented with hypotension, bradycardia, hypothermia. Head CT was negative for any acute abnormality. Patient initially was given IV fluid resuscitation. ER provider did speak with the family regarding patient's code status and prognosis. Family stated that the patient has been ill over the last few years and declining more over the last 2 years. It was discussed that due to the patient's blood pressure she would require a central line and vasopressors and family ultimately decided that they wanted her to be comfort measures only. Plan will be to admit patient for comfort care. Review of Systems Review of Systems: Yes Unobtainable due to mental condition [facility] Medical History (Updated 05/04/25 @ 16:07 by Lissette Mcnamara NP) CHF (congestive heart failure) Generalized weakness Acute on chronic anemia On continuous oral anticoagulation Supplemental oxygen dependent Cardiomyopathy Respiratory failure with hypoxia Hypertension PAF (paroxysmal atrial fibrillation) Encounter for cardioversion procedure Chronic lung disease Skin lesion Dyslipidemia Cough due to DIASY inhibitor Neck pain GERD (gastroesophageal reflux disease) Aortic regurgitation Leg edema Allergic rhinitis Anxiety Family History Father Medical history unknown Mother Medical history unknown Surgical History Carpal tunnel syndrome, right History of bilateral cataract extraction History of partial hysterectomy Social History Household Members: None Housing: House Are you a primary home visit field care manager to a significant other at home: No Do you presently have visiting nurse or other home services: Yes Alcohol intake: current Alcohol intake frequency: does not drink Alcohol type: other Comment: 1:[address] Patient Tobacco Use Status: Former Tobacco user Tobacco use type: Cigarette e-Cigarette/Vaping Use: Never Used Second Hand Smoke Exposure: No Advance Directives: Yes Advance Directives on File: Yes Advance Directives Date on File: 10/30/24 Do you have a plan to hurt others: No Plan service: No Current occupational status: retired Cognitive needs: No Hearing needs: No Vision needs: No Meds Allergies Allergy/AdvReac Type Severity Reaction Status Date / Time Sulfa (Sulfonamide Allergy Intermediate nausea, Verified 05/04/25 12:02 Antibiotics) vomiting Active Medications: Current Medications Acetaminophen (Acetaminophen 325 Mg Tablet) 650 mg PO Q4H PRN PRN Reason: Fever >/= 100, Pain, mild 1-3 Docusate Sodium (Docusate Sodium 100 Mg Capsule) 100 mg PO BEDTIME MARIA D Glycopyrrolate (Glycopyrrolate 0.2 Mg/Ml Vial) 0.2 mg IVPUSH Q6H PRN PRN Reason: Respiratory secretions Haloperidol (Haloperidol 1 Mg Tablet) 1 mg PO Q4H PRN PRN Reason: Delirium Midazolam HCl (Midazolam Hcl 2 Mg/2 Ml Vial) 2 mg IVPUSH Q2H PRN PRN Reason: Anxiety Morphine Sulfate (Morphine Sulfate 4 Mg/Ml Cartridge) 2 mg IVPUSH Q1H PRN PRN Reason: Pain, Severe (7-10)/ RR>/=24 Ondansetron HCl (Ondansetron Odt 4 Mg Tab.Rapdis) 4 mg TRANSLINGU Q8H PRN PRN Reason: Nausea and Vomiting Home Medications ?Medication ?Instructions ?Recorded ?Confirmed ?Last Taken ?Type gabapentin 100 mg capsule 100 mg PO BEDTIME PRN Pain 09/07/24 05/04/25 Unknown History rosuvastatin 5 mg tablet 2.5 mg PO BEDTIME 09/07/24 05/04/25 02/06/25 History melatonin 5 mg tablet 15 mg PO BEDTIME PRN INSOMMIA 02/08/25 05/04/25 Unknown History torsemide 20 mg tablet 40 mg PO DAILY 02/08/25 05/04/25 02/07/25 History acetaminophen 325 mg tablet 650 mg PO Q6H PRN Pain 04/20/25 05/04/25 Unknown History dapagliflozin propanediol 10 mg 10 mg PO DAILY 04/20/25 05/04/25 Unknown History tablet (Farxiga) spironolactone 25 mg tablet 25 mg PO DAILY 04/20/25 05/04/25 Unknown History apixaban 2.5 mg tablet (Eliquis) 5 mg PO BID 05/04/25 05/04/25 Unknown History bumetanide 2 mg tablet 1 mg PO DAILY 05/04/25 05/04/25 Unknown History fluticasone furoate 200 1 ea PO DAILY 05/04/25 05/04/25 Unknown History mcg-vilanterol 25 mcg/dose inhalation powder (Breo Ellipta) lorazepam 0.5 mg tablet 0.5 mg PO TID PRN Anxiety 05/04/25 05/04/25 Unknown History potassium bicarbonate-citric acid 40 meq PO BID 05/04/25 05/04/25 Unknown History 20 mEq effervescent tablet Physical Exam Vital Signs and Narrative: Vital Signs: Last Vital Signs Pulse 35 L 05/04/25 15:00 Resp 16 05/04/25 15:00 BP 94/51 L 05/04/25 12:00 BMI result Body Mass Index 21.5 Appearing in no acute distress head is normocephalic atraumatic eyes pupils are PERRLA sclera is anicteric mouth throat mucous membranes are intact and dry neck is supple no lymphadenopathy, no JVD noted lung sounds rales heart bradycardia positive bowel sounds, abdomen is soft, nontender neuro patient not alert Cyanotic LE, Results Labs 05/04/25 11:38 05/04/25 11:38 Labs: Laboratory Results - last 24 hr 05/04/25 05/04/25 05/04/25 11:15 11:23 11:30 MCV MCH MCHC RDW Plt Count MPV Immature Gran % (Auto) Neut % (Auto) Lymph % (Auto) Gladwin % (Auto) Eos % (Auto) Baso % (Auto) Lymph # (Auto) Gladwin # (Auto) Eos # (Auto) Baso # (Auto) Abs Immat Gran (auto) Absolute Neuts (auto) Absolute Nucleated RBC Nucleated RBC % (auto) Neutrophils % (Manual) Band Neutrophils % Lymphocytes % (Manual) Atypical Lymphs % (Man) Monocytes % (Manual) Abs Neuts (Manual) Lymphocytes # (Manual) Atyp Lymphs # (Manual) Monocytes # (Manual) Nucleated RBCs Toxic Vacuolation Platelet Estimate Large Platelets Plt Morphology Comment RBC Morphology Polychromasia Macrocytosis Target Cells Ovalocytes Acanthocytes (Spur) Smear Tech's Comments PT (Fingerstick) 34.8 H INR (Fingerstick) 2.9 H Hold Blue Top VBG pH VBG pCO2 VBG pO2 VBG HCO3 VBG O2 Saturation VBG Base Excess Anion Gap Estim Creat Clear Calc Estimated GFR POC Glucose 45 L* 98 Random Glucose Lactic Acid Calcium Magnesium Total Bilirubin AST ALT Alkaline Phosphatase Total Creatine Kinase Troponin I High Sens NT-Pro-B Natriuret Pep Total Protein Albumin Beta-Hydroxybutyrate TSH Free T4 Ethyl Alcohol 05/04/25 05/04/25 05/04/25 11:38 11:38 11:38 MCV 91.8 MCH 25.8 L MCHC 28.1 L RDW 25.4 H Plt Count 151 L MPV 9.8 Immature Gran % (Auto) Cancelled Neut % (Auto) Cancelled Lymph % (Auto) Cancelled Gladwin % (Auto) Cancelled Eos % (Auto) Cancelled Baso % (Auto) Cancelled Lymph # (Auto) Cancelled Gladwin # (Auto) Cancelled Eos # (Auto) Cancelled Baso # (Auto) Cancelled Abs Immat Gran (auto) Cancelled Absolute Neuts (auto) Cancelled Absolute Nucleated RBC 0.780 H Nucleated RBC % (auto) 6.1 H Neutrophils % (Manual) 88 H Band Neutrophils % 3 Lymphocytes % (Manual) 1 L Atypical Lymphs % (Man) 1 Monocytes % (Manual) 7 Abs Neuts (Manual) 11.7 H Lymphocytes # (Manual) 0.1 L Atyp Lymphs # (Manual) 0.1 Monocytes # (Manual) 0.9 Nucleated RBCs 17 H Toxic Vacuolation PRESENT Platelet Estimate NORMAL Large Platelets PRESENT Plt Morphology Comment NOTED RBC Morphology NOTED Polychromasia 2+ (3-5) Macrocytosis 1+ (5-14) Target Cells 1+ (5-14) Ovalocytes 1+ (5-14) Acanthocytes (Spur) 1+ (0-2) Smear Tech's Comments MANUAL DIFF PT (Fingerstick) INR (Fingerstick) Hold Blue Top SEE NOTE VBG pH VBG pCO2 VBG pO2 VBG HCO3 VBG O2 Saturation VBG Base Excess Anion Gap 24 H Estim Creat Clear Calc 20.0 Estimated GFR 24 POC Glucose Random Glucose 200 H Lactic Acid 9.8 H* Cancelled Calcium 13.5 H* D Magnesium 8.7 H* Total Bilirubin 1.4 H AST 73 H ALT 51 H Alkaline Phosphatase 292 H Total Creatine Kinase 129 Troponin I High Sens 38.0 H D NT-Pro-B Natriuret Pep 92069.4 H Total Protein 6.2 L Albumin 3.6 Beta-Hydroxybutyrate 0.36 H TSH 7.72 H Free T4 0.85 Ethyl Alcohol < 10 Cancelled 05/04/25 05/04/25 11:45 12:08 MCV MCH MCHC RDW Plt Count MPV Immature Gran % (Auto) Neut % (Auto) Lymph % (Auto) Gladwin % (Auto) Eos % (Auto) Baso % (Auto) Lymph # (Auto) Gladwin # (Auto) Eos # (Auto) Baso # (Auto) Abs Immat Gran (auto) Absolute Neuts (auto) Absolute Nucleated RBC Nucleated RBC % (auto) Neutrophils % (Manual) Band Neutrophils % Lymphocytes % (Manual) Atypical Lymphs % (Man) Monocytes % (Manual) Abs Neuts (Manual) Lymphocytes # (Manual) Atyp Lymphs # (Manual) Monocytes # (Manual) Nucleated RBCs Toxic Vacuolation Platelet Estimate Large Platelets Plt Morphology Comment RBC Morphology Polychromasia Macrocytosis Target Cells Ovalocytes Acanthocytes (Spur) Smear Tech's Comments PT (Fingerstick) INR (Fingerstick) Hold Blue Top VBG pH 7.28 L VBG pCO2 34 VBG pO2 99 VBG HCO3 16 L VBG O2 Saturation 99.0 VBG Base Excess -9.3 Anion Gap Estim Creat Clear Calc Estimated GFR POC Glucose 148 H Random Glucose Lactic Acid Calcium Magnesium Total Bilirubin AST ALT Alkaline Phosphatase Total Creatine Kinase Troponin I High Sens NT-Pro-B Natriuret Pep Total Protein Albumin Beta-Hydroxybutyrate TSH Free T4 Ethyl Alcohol Imaging Radiologist's Impressions: Impressions Head CT 05/04/25 11:30 IMPRESSION: Motion degraded exam. Within the confines of motion, there is no acute intracranial abnormality. This critical result was discussed with Dr. Canchola at 11:45 AM hours on 05/04/2025. It was ascertained that the content and urgency of the report was understood at the time of direct communication. Electronically signed by: Abhijeet Pearl MD 05/04/2025 11:51 AM EST RP Head/Neck CTA 05/04/25 11:33 IMPRESSION: Limited examination due to patient motion. No definite large vessel occlusion, hemodynamically significant stenosis, or aneurysm in the head and neck. Electronically signed by: Mick Pagan MD 05/04/2025 12:01 PM EST RP Assessment and Plan (1) CHRISTIAN (generalized anxiety disorder): Status: Acute Plan 79 year old women admitted for comfort measures only secondary to likely septic shock with hypothermia, hypotension and bradycardia Comfort measures only Morphine for pain and tachypnea valium for anxiety no unnecessary lab draws or vital signs Acute heart failure with preserved ejection fraction Recently treated at [facility] for acute heart failure BNP 12,984 ? 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
[2025-05-04 20:00] VITALS: RESP 18
--- NOTE | 2025-05-04 22:22 | P.DN_ITS ---
Discharge Sum: Prov Provider Primary care physician: Unknown Physician Admitting clinician: Lissette Mcnamara Attending physician on admission: Ayah Chavez Consults: 05/04/25 12:34 Consult to Vice President Network Development Stat Comment: Pronouncing clinician: Delma Esteban Discharge Sum: Diag PCOD Cause of : Septic shock Contributing Factors (1) Acute exacerbation of congestive heart failure: (2) GHAZAL (acute kidney injury): Discharge Sum: Summary Date and Time Date of admission: 05/04/25 13:09 Date of : 05/04/25 Time of : 22:09 Summary Details: H&P on admission: 79-year-old woman presenting to the ER with altered mental status and lethargy. Patient was recently treated at [facility] for congestive heart failure. Patient presented with hypotension, bradycardia, hypothermia. Head CT was negative for any acute abnormality. Patient initially was given IV fluid resuscitation. ER provider did speak with the family regarding patient's code status and prognosis. Family stated that the patient has been ill over the last few years and declining more over the last 2 years. It was discussed that due to the patient's blood pressure she would require a central line and vasopressors and family ultimately decided that they wanted her to be comfort measures only. Plan will be to admit patient for comfort care. Comfort measures only Morphine for pain and tachypnea valium for anxiety no unnecessary lab draws or vital signs Acute heart failure with preserved ejection fraction Recently treated at [facility] for acute heart failure BNP 12,984 ? 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 No spontaneous movement were present. They did not respond to verbal or tactile stimuli. Pupils were mid dilated and fixed. No breath sounds were appreciated over either lung field. No carotid pulses were palpable. No heart sounds were auscultated over entire pericardium. Patient was pronounced on May 04, 2025 at 10:09PM. Family members were bedside.? 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 Additional Data Confirmation of as documented by pronouncing clinician: no pulse, no respirations, no heart sounds and pupils fixed and dilated Family: at bedside Attending physician: Agustin Samano MD Was code activated?: No Autopsy requested?: No passport application examiner notified?: No
== END 2025-05-04 22:09 | disposition expired | DRG 951 ==
LOC: HO.ED 13:04 → HO.EDOVER 13:13 → HO.S3 15:24
PROVIDERS: Admitting Provider Nurse Practitioner Acute Care; Emergency Provider Student in an Organized Health Care Education/Training Program; Visit Provider Internal Medicine
DX: Z51.5 Encounter for palliative care (principal); A41.9 Sepsis, unspecified organism; R65.21 Severe sepsis with septic shock; I50.31 Acute diastolic (congestive) heart failure; N17.9 Acute kidney failure, unspecified; R68.0 Hypothermia, not associated with low environmental temperature; E83.42 Hypomagnesemia; F41.1 Generalized anxiety disorder; Z79.01 Long term (current) use of anticoagulants; Z79.51 Long term (current) use of inhaled steroids; Z79.899 Other long term (current) drug therapy
CPT/HCPCS: 36415; 70450; 70496; 70498; 71045; 80053; 80307; 82010; 82550; 82803; 82947; 83605; 83735; 83880; 84439; 84443; 84484; 85007; 85025; 85027; 85610; 87040; 93005; 99285; J2270; J3373; J3475; Q9967

== ENCOUNTER → 2025-05-04 11:15 | Outpatient (BNV) | payer MEDICARE, SELFPAY | PROVIDERS: Admitting Provider Nurse Practitioner Acute Care; Emergency Provider Student in an Organized Health Care Education/Training Program; Visit Provider Internal Medicine Cardiovascular Disease | DX: I45.10 Unspecified right bundle-branch block (principal); I49.8 Other specified cardiac arrhythmias | CPT/HCPCS: 93010 ==

== ENCOUNTER → 2025-05-04 11:26 | Outpatient (BNV) | payer MEDICARE, SELFPAY | PROVIDERS: Emergency Provider Student in an Organized Health Care Education/Training Program; Visit Provider Radiology Diagnostic Radiology | DX: R46.4 Slowness and poor responsiveness (principal); R41.82 Altered mental status, unspecified | CPT/HCPCS: 70450; 70496; 70498 ==

== ENCOUNTER → 2025-05-04 13:09 | Outpatient (BNV) | payer MEDICARE, SELFPAY | PROVIDERS: Admitting Provider Nurse Practitioner Acute Care; Emergency Provider Student in an Organized Health Care Education/Training Program; Visit Provider Nurse Practitioner Acute Care | DX: I50.9 Heart failure, unspecified (principal); N17.9 Acute kidney failure, unspecified | CPT/HCPCS: 99238; 99499 ==